=== PATIENT | male | born 1960 | race Caucasian/White ===

== ENCOUNTER → 2024-09-09 | Outpatient (CLI) | payer BC, SELFPAY ==
[2024-09-09 18:32] LABS: Anion Gap 13 (5-15); BUN 15 mg/dL (4-19); BUN/Creat Ratio 12.4 RATIO (10-20); Calcium,Total 9.5 mg/dL (7.6-11.0); Carbon Dioxide 23.5 mmol/L (21.0-32.0); Chloride 103 mmol/L (98-108); Glucose 77 mg/dL (70-99); PSA,Total - Annual Screen 7.26 ng/mL (0.02-4.00); Potassium 4.3 mmol/L (3.3-5.1)
[2024-09-09 18:45] LABS: Creatinine, Urine (random) 207.00 mg/dL (39.00-259.00); Microalbumin,Random Urine 36.7 mg/L (<20 mg/L)
[2024-09-09 19:13] LABS: Cholesterol 127 mg/dL (<=200); Low Density Lipoprotein Calc. 54 mg/dL; Triglycerides 73 mg/dL; Very Low Density Lipoprotein 15 mg/dL (5-40); cholesterol:hdl ratio screen 2.17
== END | disposition home or self-care (01) ==
LOC: MFPLAB 16:03
PROVIDERS: PCP Family Medicine; Referring Provider Family Medicine; Visit Provider Family Medicine
DX: Z00.00 Encounter for general adult medical examination without abnormal findings (principal); E11.9 Type 2 diabetes mellitus without complications; Z12.5 Encounter for screening for malignant neoplasm of prostate
CPT/HCPCS: 36415; 80048; 80061; 82043; 82570; 83036; 84153; G0103

== ENCOUNTER → 2024-09-22 | Outpatient (CLI) | payer BC, SELFPAY ==
--- OUTSIDE RECORDS SUMMARY | 2024-09-22 19:07 | XMS RPT_ITS | CCD ---
Author Organization [facility] Care Team Providers Care Agriscience Instructor Name Role Phone ABIOSE, FLAQUITO Unavailable Unavailable UNKNOWN, PROVIDER Unavailable Unavailable ABIOSE, FLAQUITO Unavailable Unavailable UNKNOWN, PROVIDER Unavailable Unavailable UNKNOWN, PROVIDER Unavailable Unavailable ABIOSE, FLAQUITO Unavailable Unavailable Rudi Abdi Unavailable Unavailable Nesha Douglas Unavailable Unavailable Phillip Bernal Unavailable Unavailable Karissa, Kofi A Unavailable Unavailable Rudi Abdi Unavailable Unavailable Marco Otoole Unavailable Unavailable Rudi Abdi MD Unavailable Unavailable Phillip Bernal Unavailable Unavailable Karissa, Kofi A Unavailable Unavailable Phillip Bernal Unavailable Unavailable Unavailable Dolores Ramirez, Dr. Phillip Connors Primary Care Unava wvdewayne Abdi, Dr. Rudi Shah Attending Unava eugene Bernal Jr, Dr. Phillip Connors Attending Unava ilable Dolores Ramirez, Dr. Phillip Connors Primary Care Unava ilable Dolores Ramirez, Dr. Phillip Connors Primary Care Unava ilable Giovanna Cook Attending Unavailable Phillip Bernal MD Unavailable Heriberto Davalos DO Primary Care Provider TRISHA SIMONS MD Attending Unavailable PHILLIP BERNAL Primary Care Unavailable Phillip Bernal MD Unavailable Phillip Bernal MD Unavailable Unavailable HERIBERTO DAVALOS Primary Care Unavailable GIOVANNA COOK Attending Unavailable HERIBERTO DAVALOS Primary Care Unavailable HERIBERTO DAVALOS Referring Unavailable HERIBERTO DAVALOS Primary Care Unavailable Giovanna Cook MD Unavailable Heriberto Davalos DO Unavailable [phone] Anoop RENYOSO, Heriberto A Primary Care Provider [phone] Jone AGUERO, Giovanna Coates Unavailable [phone] Davalos DO, Heriberto A Unavailable DAVALOS, HERIBERTO A Attending Unavailable DAVALOS, HERIBERTO A Primary Care Unavailable DAVALOS, HERIBERTO A Attending Unavailable DAVALOS, HERIBERTO A Primary Care Unavailable GOYO SNIDER Attending Unavailable DAVALOS, HERIBERTO A Referring Unavailable DAVALOS, HERIBERTO A Primary Care Unavailable DAVALOS, HERIBERTO A Attending Unavailable DAVALOS, HERIBERTO A Primary Care Unavailable MAHESH SANTOS Attending Unavailable THERON RIBERA Referring Unavailable DAVALOS, HERIBERTO A Primary Care Unavailable MIMI DONAHUE Attending Unavailable DAVALOS, HERIBERTO A Primary Care Unavailable GOYO SNIDER Attending Unavailable DAVALOS, HERIBERTO A Primary Care Unavailable DAVALOS, HERIBERTO A Attending Unavailable DAVALOS, HERIBERTO A Primary Care Unavailable DAVALOS, HERIBERTO A Attending Unavailable DAVALOS, HERIBERTO A Primary Care Unavailable Ariel Melgar Attending Provider Dr. Mayco Fentno MD Primary Care Provider [phone] Eliceo AGUERO, Dr. Mao Attending Provider [phone] Eliceo AGUERO, Dr. Mao Referring Provider [phone] DAVALOS, HERIBERTO A Primary Care Unavailable DAVALOS, HERIBERTO A Primary Care Unavailable DAVALOS, HERIBERTO A Primary Care Unavailable PHILLIP DUMONT Attending Unavailable Ariel Melgar Attending Unavailable Ariel Melgar Attending Unavailable Mayco Fenton Referring Unavailable Mayco Fenton Attending Unavailable Mayco Fenton Primary Care Unavailable Allergies Allergy Classification Reported Allergen(s) Allergy Type Date of Onset Reaction(s) Facility busPIRone (4 sources) busPIRone; Translations: [busPIRone HCl TABS] Drug Allergy Unknown [facility] Work Phone: (20 sources) busPIRone; Translations: [busPIRone] Drug Allergy 12-10-2022 Unknown [facility] (20 sources) busPIRone; Translations: [busPIRone HCl TABS] [facility]: (20 sources) empagliflozin; Translations: [Jardiance TABS] Drug Allergy 12-10-2022 Unknown [facility] Work Phone: (3 sources) empagliflozin; Translations: [EMPAGLIFLOZIN] Drug Allergy 12-10-2022 [facility] Medications Current Medications Medication Drug Class(es) Dates Sig (Normalized) Sig (Original) allopurinol 200 mg oral tablet (20 sources) Xanthine Oxidase Inhibitor Start: 06-22-2024 take 1 tablet by mouth once daily Allopurinol 200 mg tablet Active 200 mg PO daily June 22, 2024 12:00am Start: 10-21-2023 take 1 tablet by irma th once daily allopurinol (Zyloprim) 300 mg tablet Indications: Asymptomatic hyperuricemia TAKE 1 TABLET BY MOUTH EVERY DAY 90 tablet 2 10/21/2023 Active Start: 09-08-2015 End: 12-23-2022 take 1 tablet by mouth once daily allopurinol (Zyloprim) 300 mg tablet Indications: Asymptomatic hyperuricemia Take 1 tablet (300 mg) by mouth once daily. 90 tablet 2 12/23/2022 Active atorvastatin 40 mg oral tablet (20 sources) HMG-CoA Reductase Inhibitor Start: 06-22-2024 take 1 tablet by mouth once daily Atorvastatin 40 mg tablet Active 40 mg PO daily June 22, 2024 12:00am Start: 02-04-2021 End: 02-15-2024 take 1 tablet by mouth once daily atorvastatin (Lipitor) 10 mg tablet Indications: Hyperlipidemia, unspecified hyperlipidemia type TAKE 1 TABLET BY MOUTH EVERY DAY 90 tablet 1 02/15/2024 Active glimepiride 2 mg oral tablet (20 sources) Sulfonylurea Start: 06-22-2024 take 1 tablet by mouth once daily at breakfast Glimepiride 2 mg tablet Active 2 mg PO EVERY MORNING June 22, 2024 12:00am administer with breakfast Start: 05-22-2023 End: 05-16-2024 take 1 tablet by mouth once daily glimepiride (Amaryl) 4 mg tablet Indications: Type 2 diabetes mellitus with stage 3b chronic kidney disease, without long-term current use of insulin (Multi) TAKE 1 & 1/2 TABLETS BY MOUTH EVERY DAY 135 tablet 1 11/14/2023 05/16/2024 Discontinued Start: 01-18-2016 take 1.5 tablets by mouth once daily glimepiride (Amaryl) 4 mg tablet Take 1.5 tablets (6 mg) by mouth once daily. 0 01/18/2016 Active Start: 01-18-2016 take 0.5 tablet by m outh twice daily Glimepiride 4 MG Oral Tablet TAKE 1/2 TABLET BY MOUTH 2 TIMES A DAY Quantity: 90 Refills: 1 Ordered: 27-May-2022 Phillip Bernal MD Start : 18-Jan-2016 Active Start: 01-18-2016 take 0.5 tablet by m outh once daily Glimepiride 4 MG Oral Tablet TAKE 1/2 TABLET DAILY. Quantity: 45 Refills: 3 Rudi Abdi MD Start : 18-Jan-2016 Active hydroCHLOROthiazide 25 mg / lisinopril 20 mg oral tablet (20 sources) Thiazide Diuretic, Angiotensin Converting Enzyme Inhibitor Start: 08-27-2023 End: 11-11-2023 take 1 tablet by mouth once daily lisinopriL-hydrochlorothiazide 20-25 mg tablet Indications: Benign essential hypertension Take 1 tablet by mouth once daily. 90 tablet 1 08/27/2023 11/11/2023 Discontinued (Side effects) Start: 05-10-2015 End: 07-23-2023 take 1 tablet by mouth once daily lisinopriL-hydrochlorothiazide 20-25 mg tablet Indications: Benign essential hypertension Take 1 tablet by mouth once daily. 07/23/2023 Active Start: 05-10-2015 take 1 tablet by irma twice daily Lisinopril-hydroCHLOROthiazide 20-25 MG Oral Tablet ONE TABLET TWICE DAILY Quantity: 60 Refills: 0 Ordered: 13-Sep-2015 DO Start : 10-May-2015 Active lisinopril 10 mg oral tablet (6 sources) Angiotensin Converting Enzyme Inhibitor Start: 04-19-2024 take 0.5 tablet by mouth once daily lisinopril 10 mg tablet Indications: Benign essential hypertension Take 0.5 tablets (5 mg) by mouth once daily. 04/19/2024 Active Start: 11-11-2023 End: 11-10-2024 take 1 tablet by mouth once daily Lisinopril 10 mg tablet Active 10 mg PO daily June 22, 2024 12:00am metFORMIN hydrochloride 500 mg oral tablet (20 sources) Biguanide Start: 06-22-2024 take 1 tablet by mouth once daily Metformin 500 mg tablet Active 500 mg PO daily June 22, 2024 12:00am Start: 11-18-2023 End: 05-16-2024 take 0.5 tablet by mouth every twelve hours metFORMIN (Glucophage) 1,000 mg tablet Indications: Diabetic retinopathy screening TAKE 1/2 TABLET BY MOUTH EVERY 12 HOURS 90 tablet 1 11/18/2023 05/16/2024 Discontinued Start: 06-08-2023 take 0.5 tablet by m outh every twelve hours metFORMIN (Glucophage) 1,000 mg tablet Indications: Diabetic retinopathy screening TAKE 1/2 TABLET BY MOUTH EVERY 12 HOURS 90 tablet 1 06/08/2023 Active Start: 03-10-2015 End: 12-23-2022 take 0.5 tablet by mouth every twelve hours metFORMIN (Glucophage) 1,000 mg tablet Indications: Diabetic retinopathy screening TAKE 1/2 TABLET BY MOUTH EVERY 12 HOURS 90 tablet 1 11/25/2022 Active metoprolol tartrate 50 mg oral tablet (20 sources) beta-Adrenergic Latrice Start: 06-22-2024 take 1 tablet by mouth once daily Metoprolol Tartrate 50 mg tablet Active 50 mg PO daily June 22, 2024 12:00am Start: 10-30-2023 take 1 tablet by irma once daily metoprolol succinate XL (Toprol-XL) 25 mg 24 hr tablet Indications: Benign essential hypertension TAKE 1 TABLET BY MOUTH EVERY DAY 90 tablet 2 10/30/2023 Active Start: 08-22-2016 End: 12-23-2022 take 1 tablet by mouth once daily metoprolol succinate XL (Toprol-XL) 25 mg 24 hr tablet Indications: Benign essential hypertension Take 1 tablet (25 mg) by mouth once daily. 90 tablet 2 12/23/2022 Active Start: 08-22-2016 take 0.5 tablet by m outh twice daily Metoprolol Succinate ER 25 MG Oral Tablet Extended Release 24 Hour TAKE 1/2 (ONE-HALF) OF A TABLET BY MOUTH TWICE DAILY Quantity: 0 Refills: 0 Ordered: 01-Apr-2019 DO Start : 22-Aug-2016 Active Start: 08-22-2016 take 0.5 tablet by m outh once daily Metoprolol Succinate ER 25 MG Oral Tablet Extended Release 24 Hour TAKE 1/2 (ONE-HALF) OF A TABLET BY MOUTH DAILY Quantity: 15 Refills: 0 Start : 22-Aug-2016 Active oxyCODONE hydrochloride 5 mg oral tablet (3 sources) Opioid Agonist Start: 10-27-2023 End: 10-30-2023 take 1 tablet by mouth every eight hours for pain oxyCODONE (Roxicodone) 5 mg immediate release tablet Indications: Nephrolithiasis Take 1 tablet (5 mg) by mouth every 8 hours if needed for severe pain (7 - 10) for up to 3 days. 9 tablet 10/27/2023 10/30/2023 Active rivaroxaban 10 mg oral tablet (20 sources) Factor Xa Inhibitor Start: 06-22-2024 take 1 tablet by mouth once daily Rivaroxaban (Xarelto) 10 mg tablet Active 10 mg PO daily June 22, 2024 12:00am for 35 days Start: 11-18-2023 End: 05-16-2024 take 1 tablet by mouth once daily Xarelto 20 mg tablet Indications: Acquired hypercoagulable state (Multi) TAKE 1 TABLET BY MOUTH EVERY DAY 90 tablet 1 11/18/2023 05/16/2024 Discontinued Start: 05-19-2023 take 1 tablet by irma once daily Xarelto 20 mg tablet Indications: Acquired hypercoagulable state (Multi) TAKE 1 TABLET BY MOUTH EVERY DAY 90 tablet 1 05/19/2023 Active Start: 09-18-2015 End: 12-23-2022 take 1 tablet by mouth once daily Xarelto 20 mg tablet Indications: Acquired hypercoagulable state (CMS/HCC) TAKE 1 TABLET BY MOUTH EVERY DAY 90 tablet 1 11/25/2022 Active semaglutide 0.25 mg or 0.5 m g (2 mg/3 mL) pen injector (12 sources) Start: 11-02-2023 End: 11-11-2023 semaglutide 0.25 mg or 0.5 m g (2 mg/3 mL) pen injector Indications: Type 2 diabetes mellitus with stage 3b chronic kidney disease, without long-term current use of insulin (Multi) Inject 0.25 mg under the skin 1 (one) time per week. 11/02/2023 11/11/2023 Discontinued (Therapy completed) Start: 11-02-2023 semaglutide 0. 25 mg or 0.5 mg (2 mg/3 mL) pen injector Indications: Type 2 diabetes mellitus with stage 3b chronic kidney disease, without long-term current use of insulin (Multi) Inject 0.25 mg under the skin 1 (one) time per week. 11/02/2023 Active Start: 07-27-2023 End: 10-28-2023 inject 0.5 mg by subcutaneous injection every week semaglutide 0.25 mg or 0.5 mg (2 mg/3 mL) pen injector Indications: Type 2 diabetes mellitus with stage 3b chronic kidney disease, without long-term current use of insulin (Multi) Inject 0.5 mg under the skin 1 (one) time per week. 9 mL 1 07/27/2023 10/28/2023 Discontinued (Reorder) Start: 07-27-2023 End: 01-23-2024 inject 0.5 mg by subcutaneous injection every week semaglutide 0.25 mg or 0.5 mg (2 mg/3 mL) pen injector Indications: Type 2 diabetes mellitus with stage 3b chronic kidney disease, without long-term current use of insulin (Multi) Inject 0.5 mg under the skin 1 (one) time per week. 9 mL 1 07/27/2023 01/23/2024 Active Start: 04-23-2023 End: 07-23-2023 inject 0.5 mg by subcutaneous injection every week semaglutide 0.25 mg or 0.5 mg (2 mg/3 mL) pen injector Indications: Type 2 diabetes mellitus with stage 3b chronic kidney disease, without long-term current use of insulin (Multi) Inject 0.5 mg under the skin 1 (one) time per week. 9 mL 04/23/2023 07/23/2023 Discontinued (Reorder) Start: 04-23-2023 End: 07-22-2023 inject 0.5 mg by subcutaneous injection every week semaglutide 0.25 mg or 0.5 mg (2 mg/3 mL) pen injector Indications: Type 2 diabetes mellitus with stage 3b chronic kidney disease, without long-term current use of insulin (CMS/HCC) Inject 0.5 mg under the skin 1 (one) time per week. 9 mL 0 04/23/2023 07/22/2023 Active Start: 03-25-2023 End: 03-06-2024 semaglutide 0.25 mg or 0.5 m g (2 mg/3 mL) pen injector Indications: Type 2 diabetes mellitus with stage 3b chronic kidney disease, without long-term current use of insulin (CMS/HCC) Inject 0.25 mg under the skin 1 (one) time per week. 3 mL 0 03/25/2023 04/23/2023 Discontinued (Dose adjustment) Start: 03-25-2023 semaglutide 0. 25 mg or 0.5 mg (2 mg/3 mL) pen injector Indications: Type 2 diabetes mellitus with stage 3b chronic kidney disease, without long-term current use of insulin (CMS/HCC) Inject 0.25 mg under the skin 1 (one) time per week. 3 mL 0 03/25/2023 Active End: 10-28-2023 semaglutide 0.25 mg or 0.5 m g (2 mg/3 mL) pen injector Inject 0.5 mg under the skin every 7 days. 10/28/2023 Discontinued (Therapy completed) semaglutide 0.25 mg or 0.5 mg (2 mg/3 mL) pen injector Inject 0.5 mg under the skin every 7 days. Active tamsulosin hydrochloride 0.4 mg oral capsule (4 sources) alpha-Adrenergic Latrice Start: 10-27-2023 End: 11-11-2023 take 1 capsule by mouth once daily tamsulosin (Flomax) 0.4 mg 24 hr capsule Indications: Nephrolithiasis Take 1 capsule (0.4 mg) by mouth once daily for 14 days. 14 capsule 10/27/2023 11/11/2023 Discontinued (Side effects) Completed/Discontinued Medications Medication Drug Class(es) Dates Sig (Normalized) Sig (Original) acetaminophen 325 mg oral tablet (9 sources) Start: 10-27-2023 End: 11-25-2023 take 2 tablets by mouth every six hours for pain acetaminophen (TylenoL) 325 mg tablet Indications: Nephrolithiasis Take 2 tablets (650 mg) by mouth every 6 hours if needed for mild pain (1 - 3) or fever (temp greater than 38.0 C). 30 tablet 10/27/2023 11/25/2023 Discontinued (Therapy completed) Start: 03-04-2023 End: 04-03-2023 take 1 tablet by mouth every eight hours for pain acetaminophen (Tylenol 8 Hour) 650 mg ER tablet Indications: Ankylosing spondylitis of thoracolumbar region (CMS/HCC) Take 1 tablet (650 mg) by mouth every 8 hours if needed for mild pain (1 - 3) or moderate pain (4 - 6). Do not crush, chew, or split. 30 tablet 0 03/04/2023 04/03/2023 amoxicillin 500 mg oral capsule (1 source) Penicillin-class Antibacterial Start: 09-13-2020 take 4 capsules by mouth every hour Amoxicillin 500 MG Oral Capsule TAKE 4 CAPSULES BY MOUTH ONE HOUR PRIOR TO DENTAL APPOINTMENT. Quantity: 4 Refills: 0 Ordered: 13-Sep-2020 DO Start : 13-Sep-2020 Complete amoxicillin 875 mg / clavulanate 125 mg oral tablet (1 source) Penicillin-class Antibacterial Start: 07-05-2020 take 1 tablet by mouth every twelve hours Amoxicillin-Pot Clavulanate 875-125 MG Oral Tablet TAKE 1 TABLET BY MOUTH EVERY 12 HOURS FOR 10 DAYS Quantity: 20 Refills: 0 Ordered: 05-Jul-2020 DO Start : 05-Jul-2020 Complete aspirin 81 mg delayed release oral tablet (20 sources) Platelet Aggregation Inhibitor, Nonsteroidal Anti-inflammatory Drug Start: 06-20-2021 End: 03-04-2023 take 1 tablet by mouth once daily aspirin 81 mg EC tablet Take 1 tablet (81 mg) by mouth once daily. 0 06/20/2021 03/04/2023 Discontinued (Med List Cleanup) Aspirin 81 MG TA BS TAKE 1 TABLET DAILY. Quantity: 0 Refills: 0 Ordered: 02-May-2017 DO Active calcium chloride 0.0014 meq/ml / potassium chloride 0.004 meq/ml / sodium chloride 0.103 meq/ml / sodium lactate 0.028 meq/ml injectable solution (1 source) Start: 10-27-2023 End: 10-27-2023 1,000 mL, intravenous, at 999 mL/hr, Administer over 1 Hours, Once, On Fri10/27/23 at 1400, For 1 dose cholecalciferol 0.05 mg oral tablet (20 sources) Vitamin D End: 12-23-2022 take 1 tablet by mouth once daily cholecalciferol (Vitamin D-3) 50 MCG (2000 UT) tablet Take 1 tablet (50 mcg) by mouth once daily. 0 12/23/2022 Discontinued (Therapy completed) [facility] Vitamin D 20 00 UNIT CAPS Quantity: 0 Refills: 0 Ordered: 28-Feb-2016 DO Active [facility] Vitamin D 20 00 UNIT CAPS Refills: 0 Active ciprofloxacin 500 mg oral tablet (1 source) Quinolone Antimicrobial Start: 06-14-2021 take 1 tablet by mouth twice daily Ciprofloxacin HCl - 500 MG Oral Tablet TAKE 1 TABLET BY MOUTH TWICE DAILY FOR 10 DAYS Quantity: 20 Refills: 0 Ordered: 14-Jun-2021 DO Start : 14-Jun-2021 Complete cyclobenzaprine hydrochloride 10 mg oral tablet (8 sources) Muscle Relaxant Start: 03-25-2023 End: 11-25-2023 cyclobenzaprine (Flexeril) 10 mg tablet Indications: Neck pain on left side Take 1 tablet (10 mg) by mouth as needed at bedtime for muscle spasms. 30 tablet 03/25/2023 11/25/2023 Discontinued (Therapy completed) diclofenac sodium 75 mg delayed release oral tablet (20 sources) Nonsteroidal Anti-inflammatory Drug Start: 07-21-2015 End: 03-25-2023 take 1 tablet by mouth twice daily diclofenac (Voltaren) 75 mg EC tablet Indications: Ankylosing spondylitis of thoracolumbar region (CMS/HCC) Take 1 tablet (75 mg) by mouth 2 times a day. 180 tablet 2 12/23/2022 03/25/2023 Discontinued (Therapy completed) docosahexaenoic acid 120 mg / eicosapentaenoic acid 180 mg oral capsule (7 sources) Fish Oil 1000 MG Oral Capsule Quantity: 0 Refills: 0 Ordered: 28-Feb-2016 DO Active Fish Oil 1000 MG Oral Capsule Refills: 0 Active empagliflozin 10 mg oral tablet (2 sources) Sodium-Glucose Cotransporter 2 Inhibitor Start: 05-23-2021 take 1 tablet by mouth once daily Jardiance 10 MG Oral Tablet Take 1 tablet daily Quantity: 90 Refills: 3 Ordered: 23-May-2021 Rudi Abdi MD Start : 23-May-2021 Active fluticasone propionate 0.05 mg/actuat metered dose nasal spray (18 sources) Corticosteroid Start: 11-07-2016 take 2 spray(s) nasal route once daily Fluticasone Propionate 50 MCG/ACT Nasal Suspension instill 2 sprays each nostril daily Quantity: 16 Refills: 0 Start : 07-Nov-2016 Active gabapentin 100 mg oral capsule (2 sources) Anti-epileptic Agent Start: 03-03-2024 End: 04-19-2024 take 1 capsule by mouth three times daily gabapentin (Neurontin) 100 mg capsule Indications: Neuropathy Take 1 capsule (100 mg) by mouth 3 times a day. 90 capsule 1 03/03/2024 04/19/2024 Discontinued (Therapy completed) glucose 4000 mg chewable tablet (11 sources) End: 03-03-2024 glucose 4 gram chewable tablet Chew if needed for low blood sugar - see comments. 03/03/2024 Discontinued (Therapy completed) iohexol (OMNIPaque) 350 mg iodine/mL solution 90 mL (1 source) Start: 10-27-2023 End: 10-27-2023 90 mL, intravenous, Once in imaging, Starting on Fri10/27/23 at 1458, For 1 dose molnupiravir (Lagevrio) capsule capsule (3 sources) Start: 02-03-2024 End: 03-03-2024 take 4 capsules by mouth every twelve hours molnupiravir (Lagevrio) capsule capsule Indications: COVID-19 virus infection Take 4 capsules (800 mg) by mouth every 12 hours. 40 capsule 02/03/2024 03/03/2024 Discontinued (Therapy completed) Start: 02-03-2024 take 4 capsules by m outh every twelve hours molnupiravir (Lagevrio) capsule capsule Indications: COVID-19 virus infection Take 4 capsules (800 mg) by mouth every 12 hours. 40 capsule 02/03/2024 Active omega-3 acid ethyl esters (group home) 1000 mg oral capsule (2 sources) Fish Oil 1000 MG Oral Capsule Refills: 0 DO Active ondansetron 4 mg disintegrating oral tablet (8 sources) Serotonin-3 Receptor Antagonist Start: 10-27-19 End: 11-25-19 take 1 tablet by mouth every eight hours ondansetron ODT (Zofran-ODT) 4 mg disintegrating tablet Indications: Nephrolithiasis Take 1-2 tablets (4-8 mg) by mouth every 8 hours if needed for nausea or vomiting. 30 tablet 10/27/2023 11/25/2023 Discontinued (Therapy completed) Start: 10-27-2023 End: 10-27-2023 4 mg, intravenous, Once, On Fri10/27/23 at 1400, For 1 dose, When administering via IV Push, administer over 3-5 minutes. pen needle, diabetic (COMFOR T EZ PEN NEEDLES MISC) (14 sources) End: 03-03-2024 pen needle, diabetic (COMFOR T EZ PEN NEEDLES MISC) 1 Needle 1 (one) time per week. 03/03/2024 Discontinued (Therapy completed) pen needle, diab etic (COMFORT EZ PEN NEEDLES MISC) 1 Needle 1 (one) time per week. Active pen needle, diab etic (COMFORT EZ PEN NEEDLES MISC) 1 Needle 1 (one) time per week. 0 Active sildenafil 100 mg oral tablet (5 sources) Phosphodiesterase 5 Inhibitor Start: 08-08-2017 take 1 tablet by mouth once daily Sildenafil Citrate 100 MG Oral Tablet TAKE 1 TABLET DAILY 1 HOUR BEFORE NEEDED Quantity: 1 Refills: 0 Start : 08-Aug-2017 Active SITagliptin 25 mg oral tablet (20 sources) Dipeptidyl Peptidase 4 Inhibitor Start: 01-20-2023 End: 04-23-2023 take 1 tablet by mouth once daily Januvia 25 mg tablet Indications: Type 2 diabetes mellitus with other specified complication, without long-term current use of insulin (CMS/HCC) TAKE 1 TABLET BY MOUTH EVERY DAY 90 tablet 0 01/20/2023 04/23/2023 Discontinued (Therapy completed) Start: 12-18-2016 End: 12-23-2022 take 1 tablet by mouth once daily SITagliptin phosphate (Januvia) 25 mg tablet Indications: Type 2 diabetes mellitus with other specified complication, without long-term current use of insulin (CMS/HCC) Take 1 tablet (25 mg) by mouth once daily. 30 tablet 5 12/23/2022 Active valACYclovir 1000 mg oral tablet (1 source) Herpesvirus Nucleoside Analog DNA Polymerase Inhibitor, Herpes Simplex Virus Nucleoside Analog DNA Polymerase Inhibitor, Herpes Zoster Virus Nucleoside Analog DNA Polymerase Inhibitor Start: 12-04-2018 take 1 tablet by mouth three times daily valACYclovir HCl - 1 GM Oral Tablet TAKE 1 TABLET 3 TIMES DAILY FOR 7 DAYS. Quantity: 21 Refills: 0 Nesha Douglas DO Start : 04-Dec-2018 Active Problems Active Problems Problem Classification Problem Date Documented Date Episodic/Chronic Chronic kidney disease (20 sources) Chronic kidney disease stage 3; Translations: [Chronic kidney disease, Stage III (moderate)] Onset: 07-23-2023 Resolved: 06-20-2021 07-23-2023 Chronic Chronic kidney disease (2 sources) Chronic kidney disease; Translations: [Chronic kidney disease, stage 3b (Multi)] Onset: 07-23-2023 Coronary atherosclerosis and other heart disease (1 source) Coronary atherosclerosis and other heart disease Onset: 05-19-2017 Deficiency and other anemia (1 source) Deficiency and other anemia Onset: 05-23-2017 Diabetes mellitus with complications (6 sources) Type 2 diabetes mellitus with diabetic polyneuropathy; Translations: [Type 2 diabetes mellitus with diabetic chronic kidney disease] Onset: 12-10-2022 Chronic Diabetes mellitus without complication (20 sources) Type 2 diabetes mellitus; Translations: [Diabetes mellitus without mention of complication, type II or unspecified type, not stated as uncontrolled] Onset: 12-20-2021 Chronic Diabetes mellitus without complication (1 source) Diabetes mellitus without complication Onset: 05-23-2017 Disorders of lipid metabolism (20 sources) Hyperlipidemia; Translations: [Other and unspecified hyperlipidemia] Onset: 12-10-2022 Resolved: 07-03-2022 12-23-2022 Chronic Essential hypertension (20 sources) Benign essential hypertension; Translations: [Benign essential hypertension] Onset: 09-18-2022 12-23-2022 Chronic Essential hypertension (1 source) Essential hypertension Onset: 05-19-2017 Leukemias (20 sources) Large granular lymphocytic leukemia; 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, without mention of having achieved remission] Onset: 09-18-2022 12-10-2022 Chronic Osteoarthritis (20 sources) Osteoarthritis of left hip joint; Translations: [Osteoarthrosis, localized, primary, pelvic region and thigh] Onset: 03-25-2023 Resolved: 06-20-2021 03-25-2023 Chronic Other aftercare (20 sources) Drug therapy finding; Translations: [Long-term (current) use of other medications] Episodic Other connective tissue disease (20 sources) H/O: arthritis; Translations: [Personal history of arthritis] Episodic Other male genital disorders (20 sources) Secondary erectile dysfunction; Translations: [Impotence of organic origin] Onset: 12-10-2022 12-10-2022 Chronic Other male genital disorders (20 sources) Male erectile dysfunction, unspecified; Translations: [Erectile dysfunction] Chronic Other nervous system disorders (20 sources) Neuropathy; Translations: [Mononeuritis of unspecified site] Onset: 12-10-2022 12-10-2022 Chronic Other nervous system disorders (4 sources) Polyneuropathy, unspecified; Translations: [Polyneuropathy, unspecified] Onset: 12-10-2022 Chronic Other nervous system disorders (20 sources) Numbness and tingling sensation of skin; Translations: [Disturbance of skin sensation] Onset: 03-25-2023 03-25-2023 Episodic Other non-traumatic joint disorders (20 sources) Hip pain; Translations: [Pain in joint, pelvic region and thigh] Resolved: 06-20-2021 Episodic Other nutritional; endocrine; and metabolic disorders (20 sources) Obesity; Translations: [Obesity, unspecified] Onset: 03-25-2023 03-25-2023 Chronic Other nutritional; endocrine; and metabolic disorders (20 sources) Hemochromatosis; Translations: [Other hemochromatosis] Onset: 12-10-2022 12-10-2022 Chronic Other nutritional; endocrine; and metabolic disorders (1 source) Hemochromatosis, unspecified; Translations: [Hemochromatosis, unspecified] Onset: 09-18-2022 Chronic Other nutritional; endocrine; and metabolic disorders (4 sources) Hereditary hemochromatosis; Translations: [Hereditary hemochromatosis (CMS-HCC)] Onset: 12-10-2022 Chronic Other nutritional; endocrine; and metabolic disorders (5 sources) Hypomagnesemia; Translations: [Hypomagnesemia] Onset: 03-03-2024 03-03-2024 Chronic Other nutritional; endocrine; and metabolic disorders (1 source) Hypomagnesemia; Translations: [Hypomagnesemia] Onset: 03-03-2024 Chronic Other nutritional; endocrine; and metabolic disorders (20 sources) Hyperuricemia; Translations: [Other abnormal blood chemistry] Onset: 12-10-2022 12-23-2022 Episodic Other upper respiratory disease (20 sources) Allergic rhinitis; Translations: [Allergic rhinitis, cause unspecified] Onset: 03-25-2023 03-25-2023 Chronic Residual codes; unclassified (18 sources) Swelling - edema - symptom; Translations: [Edema] Episodic Rheumatoid arthritis and related disease (20 sources) Ankylosing spondylitis; Translations: [Ankylosing spondylitis] Onset: 12-10-2022 12-23-2022 Chronic Spondylosis; intervertebral disc disorders; other back problems (20 sources) Degeneration of lumbar intervertebral disc; Translations: [Degeneration of lumbar or lumbosacral intervertebral disc] Onset: 12-10-2022 12-10-2022 Chronic Thyroid disorders (20 sources) Multinodular goiter; Translations: [Nontoxic multinodular goiter] Onset: 12-10-2022 12-10-2022 Chronic Unclassified (1 source) Male erectile dysfunction, unspecified / N52.9(ICD-9) Onset: 05-23-2017 Unclassified (1 source) Pure hypercholesterolemia, unspecified / E78.00(ICD-9) Onset: 05-23-2017 Unclassified (1 source) Family hx of ischem heart dis and oth dis of the circ sys / Z82.49(ICD-9) Onset: 05-23-2017 Unclassified (1 source) Polyneuropathy, unspecified / G62.9(ICD-9) Onset: 05-23-2017 Unclassified (1 source) Shortness of breath / R06.02(ICD-9) Onset: 05-23-2017 Unclassified (1 source) Venous insufficiency (chronic) (peripheral) / I87.2(ICD-9) Onset: 05-23-2017 Unclassified (2 sources) Encounter for preprocedural cardiovascular examination / Z01.810(ICD-9) Onset: 05-23-2017 Unclassified (1 source) Personal history of pulmonary embolism / Z86.711(ICD-9) Onset: 05-23-2017 Unclassified (1 source) Dorsalgia, unspecified / M54.9(ICD-9) Onset: 05-23-2017 Unclassified (1 source) Cervicalgia / M54.2(ICD-9) Onset: 05-23-2017 Unclassified (1 source) Other long-term (current) drug therapy / Z79.899(ICD-9) Onset: 05-19-2017 Unclassified (1 source) Edema, unspecified / R60.9(ICD-9) Onset: 05-19-2017 Unclassified (1 source) Personal history of other venous thrombosis and embolism / Z86.718(ICD-9) Onset: 05-23-2017 Unclassified (1 source) Hemochromatosis, unspecified / E83.119(ICD-9) Onset: 05-19-2017 Unclassified (1 source) Presence of prosthetic heart valve / Z95.2(ICD-9) Onset: 05-19-2017 Viral infection (2 sources) COVID-19; Translations: [COVID-19] Onset: 02-03-2024 Past or Other Problems Problem Classification Problem Date Documented Da te Episodic/Chronic Administrative/social admission (3 sources) Patient encounter status; Translations: [Encounter for pre-employment examination] Onset: 06-22-2024 06-22-2024 Episodic Calculus of urinary tract (20 sources) Calculus of kidney; Translations: [Kidney stone] Onset: 10-27-2023 Episodic Conditions associated with dizziness or vertigo (17 sources) Dizziness; Translations: [Dizziness and giddiness] Onset: 08-13-2021 03-25-2023 Episodic Deficiency and other anemia (20 sources) Anemia; Translations: [Anemia, unspecified] Onset: 12-10-2022 12-10-2022 Episodic Genitourinary symptoms and ill-defined conditions (20 sources) Blood in urine; Translations: [Hematuria, unspecified] Onset: 12-10-2022 12-10-2022 Episodic Mood disorders (18 sources) Mood disorders Onset: 11-30-2020 03-30-2022 Osteoarthritis (1 source) Osteoarthritis of left hip joint; Translations: [Primary osteoarthritis of left hip] Other circulatory disease (20 sources) H/O: hypertension; Translations: [Personal history of other diseases of circulatory system] Onset: 03-25-2023 03-25-2023 Episodic Other diseases of veins and lymphatics (20 sources) Chronic peripheral venous hypertension; Translations: [Chronic venous hypertension with ulcer and inflammation] Resolved: 06-20-2021 Chronic Other diseases of veins and lymphatics (20 sources) Venous insufficiency of leg; Translations: [Venous (peripheral) insufficiency, unspecified] Resolved: 06-20-2021 Episodic Other ear and sense organ disorders (20 sources) Ear, nose and throat disorder; Translations: [Other and unspecified diseases of upper respiratory tract] Onset: 03-25-2023 03-25-2023 Episodic Other ear and sense organ disorders (17 sources) Impacted cerumen in right ear; Translations: [Impacted cerumen, right ear] Onset: 01-31-2023 03-25-2023 Episodic Other eye disorders (11 sources) Pain of left eye; Translations: [Ocular pain, left eye] Onset: 11-11-2023 11-11-2023 Episodic Other hematologic conditions (20 sources) H/O: blood disorder; Translations: [Personal history of diseases of blood and blood-forming organs] Onset: 03-25-2023 03-25-2023 Episodic Other infections; including parasitic (20 sources) History of herpes zoster; Translations: [Personal history of other infectious and parasitic diseases] Resolved: 11-30-2020 Episodic Other liver diseases (20 sources) Increased creatine kinase level; Translations: [Other nonspecific abnormal serum enzyme levels] Onset: 12-10-2022 12-10-2022 Episodic Other lower respiratory disease (17 sources) Dyspnea; Translations: [Shortness of breath] Onset: 11-24-2006 03-25-2023 Episodic Other nervous system disorders (20 sources) H/O: ear disorder; Translations: [Personal history of other diseases of the nervous system and sense organs] Onset: 08-13-2021 03-25-2023 Episodic Other nervous system disorders (20 sources) Paresthesia; Translations: [Paresthesia of skin] Onset: 03-21-2008 03-25-2023 Episodic Other non-traumatic joint disorders (20 sources) Clavicle pain; Translations: [Disorder of bone and cartilage, unspecified] Resolved: 11-30-2020 Episodic Other non-traumatic joint disorders (20 sources) Shoulder pain; Translations: [Pain in joint, shoulder region] Resolved: 11-30-2020 Episodic Other non-traumatic joint disorders (5 sources) Pain in right shoulder; Translations: [Right shoulder pain, unspecified chronicity] Resolved: 11-30-2020 Episodic Other nutritional; endocrine; and metabolic disorders (20 sources) Blood urate raised; Translations: [Other abnormal blood chemistry] Resolved: 06-20-2021 Episodic Other nutritional; endocrine; and metabolic disorders (20 sources) H/O: obesity; Translations: [Personal history of other endocrine, metabolic, and immunity disorders] Resolved: 06-20-2021 Episodic Other nutritional; endocrine; and metabolic disorders (4 sources) Hyperuricemia without signs of inflammatory arthritis and tophaceous disease; Translations: [Hyperuricemia without signs of inflammatory arthritis and tophaceous disease] Onset: 12-10-2022 Episodic Other screening for suspected conditions (not mental disorders or infectious disease) (20 sources) Breast neoplasm screening status; Translations: [Other screening mammogram] Onset: 03-06-2023 03-04-2023 Episodic Other upper respiratory infections (9 sources) Viral upper respiratory tract infection; Translations: [Acute upper respiratory infection, unspecified] Onset: 02-07-2024 02-07-2024 Episodic Phlebitis; thrombophlebitis and thromboembolism (20 sources) Bilateral deep vein thrombosis of lower extremities; Translations: [Acute venous embolism and thrombosis of unspecified deep vessels of lower extremity] Onset: 11-24-2006 12-10-2022 Episodic Pulmonary heart disease (20 sources) Pulmonary embolism; Translations: [Other pulmonary embolism and infarction] Onset: 12-10-2022 12-10-2022 Episodic Residual codes; unclassified (20 sources) Edema; Translations: [Edema] Onset: 12-10-2022 12-10-2022 Episodic Spondylosis; intervertebral disc disorders; other back problems (20 sources) Neck pain; Translations: [Cervicalgia] Onset: 03-25-2023 Resolved: 11-30-2020 03-25-2023 Episodic Sprains and strains (20 sources) Sprain of shoulder; Translations: [Sprains and strains of unspecified site of shoulder and upper arm] Resolved: 06-20-2021 Episodic Unclassified (1 source) Encounter for preprocedural cardiovascular examination; Translations: [Encounter for preprocedural cardiovascular examination] Onset: 05-23-2017 Unclassified (20 sources) Never smoked tobacco; Translations: [Never a smoker] Unclassified (18 sources) Onset: 12-23-2022 Resolved: 04-19-2024 12-23-2022 Viral infection (20 sources) Herpes zoster; Translations: [Herpes zoster without mention of complication] Onset: 03-25-2023 03-25-2023 Episodic NEGATED: Highlighted row has not occurred!Residual codes; unclassified (20 sources) Disease Episodic Results Test Name Value Interpretation Reference Range Facility CBC W Auto Differential pane l (Bld)on 09-16-2024 Basophils (Bld) [#/Vol] 0.05 x10*3/uL Normal 0.00-0.10 [facility] Comment on above: Performed By: #### 2 4323-8 #### SILVERIO NI ([id number]) [facility] ([facility]) [address] [place] [address] Basophils/100 WBC (Bld) 0.4 % Normal 0.0-2.0 [facility] Comment on above: Performed By: #### 2 4323-8 #### SILVERIO NI ([id number]) [facility] ([facility]) [address] [place] [address] Eosinophils (Bld) [#/Vol] 0.10 x10*3/uL Normal 0.00-0.70 [facility] Comment on above: Performed By: #### 2 4323-8 #### SILVERIO NI ([id number]) [facility] ([facility]) [address] [place] [address] Eosinophils/100 WBC (Bld) 0.8 % Normal 0.0-6.0 [facility] Comment on above: Performed By: #### 2 4323-8 #### SILVERIO NI ([id number]) [facility] ([facility]) [address] [place] [address] Erythrocyte distribution width (RBC) [Ratio] 12.6 % Normal 11.5-14.5 [facility] Comment on above: Performed By: #### 2 4323-8 #### SILVERIO NI ([id number]) [facility] ([facility]) [address] [place] [address] Hematocrit (Bld) [Volume fraction] 39.4 % Low 41.0-52.0 [facility] Comment on above: Performed By: #### 2 4323-8 #### SILVERIO NI ([id number]) [facility] ([facility]) [address] [place] [address] Hemoglobin (Bld) [Mass/Vol] 12.8 g/dL Low 13.5-17.5 [facility] Comment on above: Performed By: #### 2 4323-8 #### SILVERIO NI ([id number]) [facility] ([facility]) [id number] [place] [address] Immature granulocytes (Bld) [#/Vol] 0.03 x10*3/uL Normal 0.00-0.70 [facility] Comment on above: Performed By: #### 2 4323-8 #### SILVERIO NI ([id number]) [facility] ([facility]) [id number] [place] [address] Immature granulocytes/100 WBC (Bld) 0.2 % Normal 0.0-0.9 [facility] Comment on above: Result Comment: Leesa ture Granulocyte Count (IG) includes promyelocytes, myelocytes and metamyelocytes but does not include bands. Percent differential counts (%) should be interpreted in the context of the absolute cell counts (cells/UL). Performed By: #### 2 4323-8 #### SILVERIO NI ([id number]) [facility] ([facility] [place]) [id number] [place] [address] Lymphocytes (Bld) [#/Vol] 3.23 x10*3/uL Normal 1.20-4.80 [facility] Comment on above: Performed By: #### 2 4323-8 #### SILVERIO NI ([id number]) [facility] ([facility]) [id number] [place] [address] Lymphocytes/100 WBC (Bld) 25.1 % Normal 13.0-44.0 [facility] Comment on above: Performed By: #### 2 4323-8 #### SILVERIO NI ([id number]) [facility] ([facility]) [address] [place] [address] MCH (RBC) [Entitic mass] 30.5 pg Normal 26.0-34.0 [facility] Comment on above: Performed By: #### 2 4323-8 #### SILVERIO NI ([id number]) [facility] ([facility]) [address] [place] [address] MCHC (RBC) [Mass/Vol] 32.5 g/dL Normal 32.0-36.0 [facility] Comment on above: Performed By: #### 2 4323-8 #### SILVERIO NI ([id number]) [facility] ([facility]) [address] [place] [address] MCV (RBC) [Entitic vol] 94 fL Normal 80-100 [facility] Comment on above: Performed By: #### 2 4323-8 #### SILVERIO NI ([id number]) [facility] ([facility]) [id number] [place] [address] Monocytes (Bld) [#/Vol] 0.93 x10*3/uL Normal 0.10-1.00 [facility] Comment on above: Performed By: #### 2 4323-8 #### SILVERIO NI ([id number]) [facility] ([facility]) [id number] [place] [address] Monocytes/100 WBC (Bld) 7.2 % Normal 2.0-10.0 [facility] Comment on above: Performed By: #### 2 4323-8 #### SILVERIO NI ([id number]) [facility] ([facility]) [address] [place] [address] Neutrophils (Bld) [#/Vol] 8.55 x10*3/uL High 1.20-7.70 [facility] Comment on above: Result Comment: Perc ent differential counts (%) should be interpreted in the context of the absolute cell counts (cells/uL). Performed By: #### 2 4323-8 #### SILVERIO NI ([id number]) [facility] ([facility]) [address] [place] [address] Neutrophils/100 WBC (Bld) 66.3 % Normal 40.0-80.0 [facility] Comment on above: Performed By: #### 2 4323-8 #### SILVERIO NI ([id number]) [facility] ([facility]) [address] [place] [address] Nucleated RBC/100 WBC (Bld) [Ratio] 0.0 /100 WBCs Normal 0.0-0.0 [facility] Comment on above: Performed By: #### 2 4323-8 #### SILVERIO NI ([id number]) [facility] ([facility]) [address] [place] [address] Platelets (Bld) [#/Vol] 311 x10*3/uL Normal 150-450 [facility] Comment on above: Performed By: #### 2 4323-8 #### SILVERIO NI ([id number]) [facility] ([facility]) [address] [place] [address] RBC (Bld) [#/Vol] 4.20 x10*6/uL Low 4.50-5.90 [facility] Comment on above: Performed By: #### 2 4323-8 #### SILVERIO NI ([id number]) [facility] ([facility]) [address] [place] [address] WBC (Bld) [#/Vol] 12.9 x10*3/uL High 4.4-11.3 [facility] Comment on above: Performed By: #### 2 4323-8 #### SILVERIO NI ([id number]) [facility] ([facility]) [address] [place] [address] Comprehensive metabolic 2000 panelon 09-16-2024 Albumin BCP dye [Mass/Vol] 4.0 g/dL Normal 3.4-5.0 [facility] Comment on above: Performed By: #### 2 4323-8 #### SILVERIO NI ([id number]) [facility] ([facility]) [address] [place] [address] ALP [Catalytic activity/Vol] 86 U/L Normal 33-136 [facility] Comment on above: Performed By: #### 2 4323-8 #### SILVERIO NI ([id number]) [facility] ([facility]) [address] [place] [address] ALT With P-5'-P [Catalytic activity/Vol] 17 U/L Normal 10-52 [facility] Comment on above: Result Comment: Svetlana ents treated with Sulfasalazine may generate falsely decreased results for ALT. Performed By: #### 2 4323-8 #### SILVERIO NI ([id number]) [facility] ([facility]) [address] [place] [address] Anion gap [Moles/Vol] 12 mmol/L Normal 10-20 [facility] Comment on above: Performed By: #### 2 4323-8 #### SILVERIO NI ([id number]) [facility] ([facility]) [address] [place] [address] AST With P-5'-P [Catalytic activity/Vol] 20 U/L Normal 9-39 [facility] Comment on above: Performed By: #### 2 4323-8 #### SILVERIO NI ([id number]) [facility] ([facility]) [address] [place] [address] Bilirubin [Mass/Vol] 0.6 mg/dL Normal 0.0-1.2 [facility] Comment on above: Performed By: #### 2 4323-8 #### SILVERIO NI ([id number]) [facility] ([facility]) [address] [place] [address] Calcium [Mass/Vol] 9.4 mg/dL Normal 8.6-10.3 [facility] Comment on above: Performed By: #### 2 4323-8 #### SILVERIO NI ([id number]) [facility] ([facility]) [address] [place] [address] Chloride [Moles/Vol] 103 mmol/L Normal 98-107 [facility] Comment on above: Performed By: #### 2 4323-8 #### SILVERIO NI ([id number]) [facility] ([facility]) [address] [place] [address] CO2 [Moles/Vol] 30 mmol/L Normal 21-32 [facility] Comment on above: Performed By: #### 2 4323-8 #### SILVERIO NI ([id number]) [facility] ([facility]) [address] [place] [address] Creatinine [Mass/Vol] 1.04 mg/dL Normal 0.50-1.30 [facility] Comment on above: Performed By: #### 2 4323-8 #### SILVERIO NI ([id number]) [facility] ([facility]) [address] [place] [address] Glomerular filtration rate 81 mL/min/1.73m*2 Normal >60 [facility] Comment on above: Result Comment: Calc ulations of estimated GFR are performed using the 2020 CKD-EPI Study Refit equation without the race variable for the IDMS-Traceable creatinine methods. https://jasn.asnjournals.org/content//ASN.5909712 988 Performed By: #### 2 4323-8 #### SILVERIO NI ([id number]) [facility] ([facility]) [address] [place] [address] Glucose [Mass/Vol] 84 mg/dL Normal 74-99 [facility] Comment on above: Performed By: #### 2 4323-8 #### SILVERIO NI ([id number]) [facility] ([facility]) [address] [place] [address] Potassium [Moles/Vol] 4.5 mmol/L Normal 3.5-5.3 [facility] Comment on above: Performed By: #### 2 4323-8 #### SILVERIO NI ([id number]) [facility] ([facility]) [address] [place] [address] Protein [Mass/Vol] 7.0 g/dL Normal 6.4-8.2 [facility] Comment on above: Performed By: #### 2 4323-8 #### SILVERIO NI ([id number]) [facility] ([facility]) [address] [place] [address] Sodium [Moles/Vol] 140 mmol/L Normal 136-145 [facility] Comment on above: Performed By: #### 2 4323-8 #### SILVERIO NI ([id number]) [facility] ([facility]) [address] [place] [address] Urea nitrogen [Mass/Vol] 16 mg/dL Normal 6-23 [facility] Comment on above: Performed By: #### 2 4323-8 #### SILVERIO NI ([id number]) [facility] ([facility]) [address] [place] [address] Ferritinon 09-16-2024 Ferritin [Mass/Vol] 76 ng/mL Normal 20-300 [facility] Comment on above: Performed By: #### 2 4323-8 #### SILVERIO NI ([id number]) [facility] ([facility]) [address] [place] [address] Iron and Iron binding capaci ty panelon 09-16-2024 Iron [Mass/Vol] 52 ug/dL Normal 35-150 [facility] Comment on above: Performed By: #### 2 4323-8 #### SILVERIO NI ([id number]) [facility] ([facility]) [address] [place] [address] Iron binding capacity [Mass/Vol] 280 ug/dL Normal 240-445 [facility] Comment on above: Performed By: #### 2 4323-8 #### SILVREIO NI ([id number]) [facility] ([facility]) [address] [place] [address] Iron binding capacity.unsaturated [Mass/Vol] 228 ug/dL Normal 110-370 [facility] Comment on above: Performed By: #### 2 4323-8 #### SILVERIO NI ([id number]) [facility] ([facility]) [address] [place] [address] Iron saturation [Mass fraction] 19 % Low 25-45 [facility] Comment on above: Performed By: #### 2 4323-8 #### SILVERIO NI ([id number]) [facility] ([facility]) [address] [place] [address] Anion gap in Serum or Plasma Ordered By: Mayco Fenton on 09-09-2024 Anion gap [Moles/Vol] 13 mmol/L 07-01 [facility] BUN/creatinine ratioOrdered By: Mayco Fenton on 09-09-2024 Urea nitrogen/Creatinine [Mass ratio] 12.4 mg/mg 12-06 [facility] Basic Metabolic Profile (BMP )on 09-09-2024 BUN/CRE 12.4 RATIO Normal 12-06 [facility] Comment on above: Performed By: #### L 500.4100, L501.9910, L502.0250, L500.2500, L501.9985 #### [facility] [address] [place], [address] Calcium [Mass/Vol] 9.5 mg/dL Normal 7.6-11.0 [facility] Comment on above: Performed By: #### L 500.4100, L501.9910, L502.0250, L500.2500, L501.9985 #### [facility] [address] [place], [address] Chloride [Moles/Vol] 103 mmol/L Normal 98-108 [facility] Comment on above: Performed By: #### L 500.4100, L501.9910, L502.0250, L500.2500, L501.9985 #### [facility] [address] [place], [address] CO2 [Moles/Vol] 23.5 mmol/L Normal 21.0-32.0 [facility] Comment on above: Performed By: #### L 500.4100, L501.9910, L502.0250, L500.2500, L501.9985 #### [facility] [address] [place], [address] Creatinine [Mass/Vol] 1.19 mg/dL Normal 0.70-1.20 [facility] Comment on above: Performed By: #### L 500.4100, L501.9910, L502.0250, L500.2500, L501.9985 #### [facility] [address] [place], [place], [address] GAP 13 Normal 5-15 [facility] Comment on above: Performed By: #### L 500.4100, L501.9910, L502.0250, L500.2500, L501.9985 #### [facility] [address] [place], [address] GFR/1.73 sq M.predicted among non-blacks MDRD (S/P/Bld) [Vol rate/Area] 69 mL/min/{1.73_m2} Normal >60 [facility] Comment on above: Result Comment: mL/m in/1.73m2 CKD-EPI Creatinine Equation (2020) Performed By: #### L 500.4100, L501.9910, L502.0250, L500.2500, L501.9985 #### [facility] [address] [place], [address] Glucose [Mass/Vol] 77 mg/dL Normal 70-99 [facility] Comment on above: Performed By: #### L 500.4100, L501.9910, L502.0250, L500.2500, L501.9985 #### [facility] [address] [place], [address] Potassium [Moles/Vol] 4.3 mmol/L Normal 3.3-5.1 [facility] Comment on above: Performed By: #### L 500.4100, L501.9910, L502.0250, L500.2500, L501.9985 #### [facility] [address] [place], [address] Sodium [Moles/Vol] 139 mmol/L Normal 133-145 [facility] Comment on above: Performed By: #### L 500.4100, L501.9910, L502.0250, L500.2500, L501.9985 #### [facility] [address] [place], [address] Urea nitrogen [Mass/Vol] 15 mg/dL Normal 4-19 [facility] Comment on above: Performed By: #### L 500.4100, L501.9910, L502.0250, L500.2500, L501.9985 #### [facility] [address] [place], [address] Calculated very low density lipoprotein (VLDL) cholesterol measurementOrdered By: Mayco Fenton on 09-09-2024 Calculated very low density lipoprotein (VLDL) cholesterol measurement 15 mg/dL 5-40 [facility] Carbon dioxide, total [Moles /volume] in Central venous bloodOrdered By: Mayco Fenton on 09-09-2024 CO2 [Moles/Vol] 23.5 mmol/L 21.0-32.0 [facility] Chloride assayOrdered By: Janay Fenton on 09-09-2024 Chloride [Moles/Vol] 103 mmol/L 98-108 [facility] Glomerular filtration rate ( GFR) estimation/1.73 sq m using serum, plasma, or whole bOrdered By: Mayco Fetnon on 09-09-2024 GFR/1.73 sq M.predicted among non-blacks MDRD (S/P/Bld) [Vol rate/Area] 69 mL/min/{1.73_m2} >60 [facility] Comment on above: mL/min/1.73m2 CKD-EP I Creatinine Equation (2020) Hemoglobin A1con 09-09-2024 HbA1c (Bld) [Mass fraction] 6.7 % High <=5.6 [facility] Comment on above: Result Comment: Norm al < 5.7 % Prediabetic 5.7 - 6.4 % Diabetic >or= 6.5 % Please note range changes. Performed By: #### L 500.4100, L501.9910, L502.0250, L500.2500, L501.9985 #### [facility] [address] [place], [address] Hemoglobin A1c percentageOrd ered By: Mayco Fenton on 09-09-2024 HbA1c (Bld) [Mass fraction] 6.7 % High <5.7 [facility] Comment on above: Normal < 5.7 % Predi abetic 5.7 - 6.4 % Diabetic >or= 6.5 % Please note range changes. LDL calc ser/plasOrdered By: Mayco Fenton on 09-09-2024 Cholesterol in LDL [Mass/Vol] 54 mg/dL [facility] Comment on above: Ggvftvadoj=929-195 m g/dL & Higher Tywy=054 mg/dL or greater Lipid Profileon 09-09-2024 CHOL:HDL 2.17 Normal [facility] Comment on above: Performed By: #### L 500.4100, L501.9910, L502.0250, L500.2500, L501.9985 #### [facility] [address] [place], [address] Cholesterol [Mass/Vol] 127 mg/dL Normal <=200 [facility] Comment on above: Result Comment: Chol esterol level, Desirable <200 mg/dL Borderline high cholesterol 200-239 mg/dL High cholesterol >=240 mg/dL Recommendations of the NCEP Adult Treatment Panel for the following risk-cutoff thresholds for the [place] population. Performed By: #### L 500.4100, L501.9910, L502.0250, L500.2500, L501.9985 #### [facility] [address] [place], [address] Cholesterol in HDL [Mass/Vol] 59 mg/dL Normal [facility] Comment on above: Result Comment: [place] onal Cholesterol Education Program (NCEP) guidelines: <40 mg/dL: Low HDL-cholesterol (major risk factor for CHD) >= 60 mg/dL: High HDL-cholesterol (negative risk factor for CHD) HDL-cholesterol is affected by a number of factors, e.g. smoking, exercise, hormones, sex and age. Performed By: #### L 500.4100, L501.9910, L502.0250, L500.2500, L501.9985 #### [facility] [address] [place], [address] Cholesterol in LDL [Mass/Vol] 54 mg/dL Normal [facility] Comment on above: Result Comment: Bord wtgqql=268-723 mg/dL Higher Gbui=828 mg/dL or greater Performed By: #### L 500.4100, L501.9910, L502.0250, L500.2500, L501.9985 #### [facility] [address] [place], [address] Cholesterol in VLDL [Mass/Vol] 15 mg/dL Normal 5-40 [facility] Comment on above: Performed By: #### L 500.4100, L501.9910, L502.0250, L500.2500, L501.9985 #### [facility] [address] [place], [address] Triglyceride [Mass/Vol] 73 mg/dL Normal [facility] Comment on above: Result Comment: The drugs N-Acetylcysteine and Metamizole may falsely depress this assay. Normal range: <150 mg/dL Borderline High: 150-199 mg/dL High: 200-499 mg/dL Very High: >500 mg/dL Performed By: #### L 500.4100, L501.9910, L502.0250, L500.2500, L501.9985 #### [facility] [address] [place], [address] Microalb:Creat Ratio,Random URon 09-09-2024 Creatinine [Mass/Vol] 207.00 mg/dL Normal 39.00-259.00 [facility] Comment on above: Performed By: #### L 500.4100, L501.9910, L502.0250, L500.2500, L501.9985 #### [facility] [address] [place], [address] MALB:CREAT 17.7 mg/g CRE Normal <30 mg/g CRE [facility] Comment on above: Performed By: #### L 500.4100, L501.9910, L502.0250, L500.2500, L501.9985 #### [facility] [address] [place], [address] MICROALBUMIN,UR 36.7 mg/L Normal <20 mg/L [facility] Comment on above: Performed By: #### L 500.4100, L501.9910, L502.0250, L500.2500, L501.9985 #### [facility] [address] [place], [address] PSA,Total - Annual Screenon 09-09-2024 PSA,TOT SCREEN 7.26 ng/mL High 0.02-4.00 [facility] Comment on above: Result Comment: This test was performed using the [facility] tPSA method. Measured values of a patient??sample can vary depending on the testing procedure used. PSA values determined on patient samples by different testing procedures cannot be used interchangeably. If there is a change in PSA assays while monitoring therapy, sequential testing should be performed to confirm baseline values. Performed By: #### L 500.4100, L501.9910, L502.0250, L500.2500, L501.9985 #### [facility] [address] [place], [address] Potassium measurement (mass/ volume)Ordered By: Mayco Fenton on 09-09-2024 Potassium (Unsp spec) [Mass/Vol] 4.3 mmol/L 3.3-5.1 [facility] Random urine creatinine anna urement (mass/volume)Ordered By: Mayco Fenton on 09-09-2024 Creatinine Unsp time (U) [Mass/Vol] 207.00 mg/dL 39.00-259.00 [facility] Screening total cholesterol/ high density lipoprotein (HDL) cholesterol ratioOrdered By: Mayco Fenton on 09-09-2024 Cholesterol.total/Ch olesterol in HDL [Mass ratio] 2.17 {ratio} [facility] Serum creatinine measurement (mass/volume)Ordered By: Mayco Fenton on 09-09-2024 Creatinine [Mass/Vol] 1.19 mg/dL 0.70-1.20 [facility] Serum glucose measurement (m ass/volume)Ordered By: Mayco Fenton on 09-09-2024 Glucose [Mass/Vol] 77 mg/dL 70-99 [facility] Serum or plasma calcium anna urement (mass/volume)Ordered By: Mayco Fenton on 09-09-2024 Calcium [Mass/Vol] 9.5 mg/dL 7.6-11.0 [facility] Serum or plasma cholesterol in HDL measurement (mass/volume)Ordered By: Mayco Fenton on 09-09-2024 Cholesterol in HDL [Mass/Vol] 59 mg/dL >40 [facility] Comment on above: National Cholesterol Education Program (NCEP) guidelines:<40 mg/dL: Low HDL-cholesterol (major risk factor for CHD)>= 60 mg/dL: High HDL-cholesterol (negative risk factor for CHD)HDL-cholesterol is affected by a number of factors, e.g. smoking, exercise, hormones, sex and age. Serum or plasma cholesterol measurement (mass/volume)Ordered By: Mayco Fenton on 09-09-2024 Cholesterol [Mass/Vol] 127 mg/dL <201 [facility] Comment on above: Cholesterol level, D esirable <200 mg/dLBorderline high cholesterol 200-239 mg/dLHigh cholesterol >=240 mg/dLRecommendations of the NCEP Adult Treatment Panel for the following risk-cutoff thresholds for the [place] population. Serum or plasma urea nitroge n measurement (mass/volume)Ordered By: Mayco Fenton on 09-09-2024 Urea nitrogen [Mass/Vol] 15 mg/dL 4-19 [facility] Sodium levelOrdered By: Mayco Fenton on 09-09-2024 Sodium [Moles/Vol] 139 mmol/L 133-145 [facility] Triglycerides measurementOrd ered By: Mayco Fenton on 09-09-2024 Triglyceride [Mass/Vol] 73 mg/dL <199 [facility] Comment on above: The drugs N-Acetylcy steine and Metamizole may falsely depress this assay. Normal range: <150 mg/dLBorderline High: 150-199 mg/dLHigh: 200-499 mg/dLVery High: >500 mg/dL Urine albumin measurement wi detection limit of 20 mg/L or less (mass/volume)Ordered By: Mayco Fenton on 09-09-2024 Albumin DL <= 20 mg/L (U) [Mass/Vol] 36.7 mg/L <20 mg/L [facility] Office Visit Reporton 2024 Office Visit Report [facility] [address] 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 Allergies No Known Allergies Allergy (Unverified 06/22/24 16:52) Office Procedures [facility] Billing Sheet Testing Breath Alcohol Test Pre-Employment: Yes Pre-Employment Drug Screen: Yes Pre-Employment PE: Yes 06/30/24 1720 Date Ariel Robert Signature: Date (if applicable) CC: Normal [facility] Visit Reporton 0 5-06-2025 Urgent Care Visit Report [facility] [address], [address] [place] [address] OFFICE VISIT Date of Service: 06/22/24 MR#: [id number] Acct: [id number] Name: JEFFERSON CARCAMO Rep #: [id number] : 1960 Provider: JANAY Christine Age/Sex: 63/M Location: [facility] Status: Signed Intake Intake Visit 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 Accompanied by: Self Allergies No Known Allergies Allergy (Unverified 06/22/24 16:52) Medications ???Medication ???Instructions ???Recorded ???Confirmed ???Type allopurinol 200 mg tablet 200 mg PO QDAY 06/22/24 06/22/24 H istory atorvastatin 40 mg tablet 40 mg PO QDAY 06/22/24 06/22/24 Hi story glimepiride 2 mg tablet 2 mg PO QAM 06/22/24 06/22/24 Hist ory lisinopril 10 mg tablet 10 mg PO QDAY 06/22/24 06/22/24 Hi story metformin 500 mg tablet 500 mg PO QDAY 06/22/24 06/22/24 H istory metoprolol tartrate 50 mg tablet 50 mg PO QDAY 06/22/24 06/22/24 Hi story rivaroxaban 10 mg tablet (Xarelto) 10 mg PO QDAY 06/22/24 06/22/24 History Nurse's Note: Patient here for a Pre-Employment physical. [facility] Medical History (Updated 06/22/24 @ 16:55 by Mirna Andres MA) Physical exam, pre-employment Surgical History (Updated 06/22/24 @ 16:55 by Mirna Andres MA) History of hip replacement, total Family History (Updated 06/22/24 @ 16:54 by Mirna Andres MA) Mother Lung cancer Father Lung cancer HPI HPI Details: JEFFERSON CARCAMO, is a 26 M who presents to the office today for Office Procedures Physical Exam Coding PE Coding Pre-employment PE: Yes Coding Level of Care Code No Charge Diagnoses Physical exam, pre-employment Z02.1 Assessment and Plan Assessment and Plan (1) Physical exam, pre-employment: Status: Acute 06/22/24 1700 Date Ariel Robert Signature: Date (if applicable) CC: Normal [facility] ALBUMIN, RANDOM URINE W/CREA CARLOS 04-14-2024 ALBUMIN, URINE 1.4 mg/dL Normal See Note: [facility] Comment on above: Result Comment: Refe renjennifer Range: Reference Range Not established Performed By: #### 9 9425, 927, 622, 74747, 7600, 6517, 905, 6399 #### [facility] [address], [address] [place], [place] [id number] Surgeon Partner: Aquiles Patel MD ALBUMIN/CREATININE RATIO, RANDOM URINE 13 mg/g creat Normal <30 [facility] Comment on above: Result Comment: The ADA defines abnormalities in albumin excretion as follows: Albuminuria Category Result (mg/g creatinine) Normal to Mildly increased <30 Moderately increased 30-299 Severely increased > OR = 300 The ADA recommends that at least two of three specimens collected within a 3-6 month period be abnormal before considering a patient to be within a diagnostic category. Performed By: #### 9 7825, 927, 622, 02010, 7600, 6517, 905, 6399 #### [facility] [place] [address] [facility], [address] [place] [id number] Surgeon Partner: Aquiles Patel MD Creatinine (U) [Mass/Vol] 105 mg/dL Normal 20-320 [facility] Comment on above: Performed By: #### 9 4045, 927, 622, 07718, 7600, 6517, 905, 6399 #### [facility] [address], [address] [place] [id number] Surgeon Partner: Aquiles Patel MD CBC (INCLUDES DIFF/PLT)on Basophils (Bld) [#/Vol] 0.053 10*3/uL Normal 0-200 [facility] Comment on above: Performed By: #### 9 2665, 927, 622, 98349, 7600, 6517, 905, 6399 #### [facility] [place] [address] Surgeon Partner: Aquiles Patel MD Basophils/100 WBC (Bld) 0.5 % Normal [facility] Comment on above: Performed By: #### 9 2665, 927, 622, 94383, 7600, 6517, 905, 6399 #### [facility] [place] [address] Surgeon Partner: Aquiles Patel MD Eosinophils (Bld) [#/Vol] 0.242 10*3/uL Normal 15-500 [facility] Comment on above: Performed By: #### 9 2665, 927, 622, 46730, 7600, 6517, 905, 6399 #### [facility] [place] [address] Surgeon Partner: Aquiles Patel MD Eosinophils/100 WBC (Bld) 2.3 % Normal [facility] Comment on above: Performed By: #### 9 2665, 927, 622, 61560, 7600, 6517, 905, 6399 #### [facility] [place] [address] Surgeon Partner: Auqiles Patel MD Erythrocyte distribution width (RBC) [Ratio] 13.0 % Normal 11.0-15.0 [facility] Comment on above: Performed By: #### 9 2665, 927, 622, 66781, 7600, 6517, 905, 6399 #### [facility] [place] [address] Surgeon Partner: Aquiles Patel MD Hematocrit (Bld) [Volume fraction] 40.0 % Normal 38.5-50.0 [facility] Comment on above: Performed By: #### 9 2665, 927, 622, 98377, 7600, 6517, 905, 6399 #### [facility] [place] [address] Surgeon Partner: Aquiles Patel MD Hemoglobin (Bld) [Mass/Vol] 13.9 g/dL Normal 13.2-17.1 [facility] Comment on above: Performed By: #### 9 2665, 927, 622, 70400, 7600, 6517, 905, 6399 #### [facility] [place] [address] Surgeon Partner: Aquiles Patel MD Lymphocytes (Bld) [#/Vol] 4.263 10*3/uL High 850-3900 [facility] Comment on above: Performed By: #### 9 2665, 927, 622, 84329, 7600, 6517, 905, 6399 #### [facility] [place] [address] Surgeon Partner: Aquiles Patel MD Lymphocytes/100 WBC (Bld) 40.6 % Normal [facility] Comment on above: Performed By: #### 9 2665, 927, 622, 96225, 7600, 6517, 905, 6399 #### [facility] [place] [address] Surgeon Partner: Aquiles Patel MD MCH (RBC) [Entitic mass] 31.7 pg Normal 27.0-33.0 [facility] Comment on above: Performed By: #### 9 2665, 927, 622, 61152, 7600, 6517, 905, 6399 #### [facility] [place] [address] Surgeon Partner: Aquiles Patel MD MCHC (RBC) [Mass/Vol] 34.8 g/dL Normal 32.0-36.0 [facility] Comment on above: Result Comment: For adults, a slight decrease in the calculated MCHC value (in the range of 30 to 32 g/dL) is most likely not clinically significant; however, it should be interpreted with caution in correlation with other red cell parameters and the patient's clinical condition. Performed By: #### 9 2665, 927, 622, 70132, 7600, 6517, 905, 6399 #### [facility] [place] [address] Surgeon Partner: Aquiles Patel MD MCV (RBC) [Entitic vol] 91.3 fL Normal 80.0-100.0 [facility] Comment on above: Performed By: #### 9 2665, 927, 622, 80011, 7600, 6517, 905, 6399 #### [facility] [place] [address] Surgeon Partner: Aquiles Patel MD Monocytes (Bld) [#/Vol] 0.872 10*3/uL Normal 200-950 [facility] Comment on above: Performed By: #### 9 2665, 927, 622, 29482, 7600, 6517, 905, 6399 #### [facility] [place] [address] Surgeon Partner: Aquiles Patel MD Monocytes/100 WBC (Bld) 8.3 % Normal [facility] Comment on above: Performed By: #### 9 2665, 927, 622, 63482, 7600, 6517, 905, 6399 #### [facility] [place] [address] Surgeon Partner: Aquiles Patel MD Neutrophils (Bld) [#/Vol] 5.072 10*3/uL Normal 8647-1498 [facility] Comment on above: Performed By: #### 9 2665, 927, 622, 27694, 7600, 6517, 905, 6399 #### [facility] [place] [address] Surgeon Partner: Aquiles Patel MD Neutrophils/100 WBC (Bld) 48.3 % Normal [facility] Comment on above: Performed By: #### 9 2665, 927, 622, 59345, 7600, 6517, 905, 6399 #### [facility] [place] [address] Surgeon Partner: Aquiles Patel MD Platelet mean volume (Bld) [Entitic vol] 10.5 fL Normal 7.5-12.5 [facility] Comment on above: Performed By: #### 9 2665, 927, 622, 01405, 7600, 6517, 905, 6399 #### [facility] [place] [address] Surgeon Partner: Aquiles Patel MD Platelets (Bld) [#/Vol] 299 10*3/uL Normal 140-400 [facility] Comment on above: Performed By: #### 9 2665, 927, 622, 25161, 7600, 6517, 905, 6399 #### [facility] [place] [address] Surgeon Partner: Aquiles Patel MD RBC (Bld) [#/Vol] 4.38 10*6/uL Normal 4.20-5.80 [facility] Comment on above: Performed By: #### 9 2665, 927, 622, 02574, 7600, 6517, 905, 6399 #### [facility] [place] [address] Surgeon Partner: Aquiles Patel MD WBC (Bld) [#/Vol] 10.5 10*3/uL Normal 3.8-10.8 [facility] Comment on above: Performed By: #### 9 2665, 927, 622, 34657, 7600, 6517, 905, 6399 #### [facility] [place] [address] Surgeon Partner: Aquiles Patel MD COMPREHENSIVE METABOLIC PANE L W/ANION GAPon 04-14-2024 Albumin [Mass/Vol] 4.3 g/dL Normal 3.6-5.1 [facility] Comment on above: Performed By: #### 9 2665, 927, 622, 21738, 7600, 6517, 905, 6399 #### [facility] [place] [address] Surgeon Partner: Aquiles Patel MD ALP [Catalytic activity/Vol] 84 U/L Normal 35-144 [facility] Comment on above: Performed By: #### 9 2665, 927, 622, 74776, 7600, 6517, 905, 6399 #### [facility] [place] [address] Surgeon Partner: Aquiles Patel MD ALT [Catalytic activity/Vol] 14 U/L Normal 9-46 [facility] Comment on above: Performed By: #### 9 2665, 927, 622, 86542, 7600, 6517, 905, 6399 #### [facility] [place] [address] Surgeon Partner: Aquiles Patel MD AST [Catalytic activity/Vol] 15 U/L Normal 10-35 [facility] Comment on above: Performed By: #### 9 2665, 927, 622, 16171, 7600, 6517, 905, 6399 #### [facility] [place] [address] Surgeon Partner: Aquiles Patel MD Bilirubin [Mass/Vol] 0.5 mg/dL Normal 0.2-1.2 [facility] Comment on above: Performed By: #### 9 2665, 927, 622, 53830, 7600, 6517, 905, 6399 #### [facility] [place] [address] Surgeon Partner: Aquiles Patel MD Calcium [Mass/Vol] 9.3 mg/dL Normal 8.6-10.3 [facility] Comment on above: Performed By: #### 9 2665, 927, 622, 89464, 7600, 6517, 905, 6399 #### [facility] [place] [address] Surgeon Partner: Aquiles Patel MD Chloride [Moles/Vol] 102 mmol/L Normal 98-110 [facility] Comment on above: Performed By: #### 9 2665, 927, 622, 96717, 7600, 6517, 905, 6399 #### [facility] [place] [address] Surgeon Partner: Aquiles Patel MD CO2 [Moles/Vol] 28 mmol/L Normal 20-32 [facility] Comment on above: Performed By: #### 9 2665, 927, 622, 90755, 7600, 6517, 905, 6399 #### [facility] [place] [address] Surgeon Partner: Aquiles Patel MD Creatinine [Mass/Vol] 1.03 mg/dL Normal 0.70-1.35 [facility] Comment on above: Performed By: #### 9 2665, 927, 622, 74018, 7600, 6517, 905, 6399 #### [facility] [place] [address] Surgeon Partner: Aquiles Patel MD ELECTROLYTE BALANCE 9 mmol/L (calc) Normal 7-17 [facility] Comment on above: Performed By: #### 9 2665, 927, 622, 24327, 7600, 6517, 905, 6399 #### [facility] [place] [address] Surgeon Partner: Aquiles Patel MD GFR/1.73 sq M.predicted among non-blacks MDRD (S/P/Bld) [Vol rate/Area] 83 mL/min/{1.73_m2} Normal > OR = 60 [facility] Comment on above: Performed By: #### 9 2665, 927, 622, 04601, 7600, 6517, 905, 6399 #### [facility] [place] [address] Surgeon Partner: Aquiles Patel MD Glucose [Mass/Vol] 135 mg/dL High 65-99 [facility] Comment on above: Result Comment: Fasting reference interval For someone without known diabetes, a glucose value >125 mg/dL indicates that they may have diabetes and this should be confirmed with a follow-up test. Performed By: #### 9 2665, 927, 622, 69519, 7600, 6517, 905, 6399 #### [facility] [place] [address] Surgeon Partner: Aquiles Patel MD Potassium [Moles/Vol] 4.2 mmol/L Normal 3.5-5.3 [facility] Comment on above: Performed By: #### 9 2665, 927, 622, 34713, 7600, 6517, 905, 6399 #### [facility] [place] [address] Surgeon Partner: Aquiles Patel MD Protein [Mass/Vol] 7.0 g/dL Normal 6.1-8.1 [facility] Comment on above: Performed By: #### 9 2665, 927, 622, 85111, 7600, 6517, 905, 6399 #### [facility] [place] [address] Surgeon Partner: Aquiles Patel MD Sodium [Moles/Vol] 139 mmol/L Normal 135-146 [facility] Comment on above: Performed By: #### 9 2665, 927, 622, 21777, 7600, 6517, 905, 6399 #### [facility] [place] [address] Surgeon Partner: Aquiles Patel MD Urea nitrogen [Mass/Vol] 14 mg/dL Normal 7-25 [facility] Comment on above: Performed By: #### 9 2665, 927, 622, 88224, 7600, 6517, 905, 6399 #### [facility] [place] [address], [address] [place] [address] Surgeon Partner: Aquiles Patel MD HEMOGLOBIN A1c WITH eAGon eAG (mmol/L) 8.7 mmol/L Normal [facility] Comment on above: Performed By: #### 9 2665, 927, 622, 11954, 7600, 6517, 905, 6399 #### [facility] of [address], [address] [place] [address] Surgeon Partner: Aquiles Patel MD HEMOGLOBIN A1c 7.1 % of total Hgb High <5.7 [facility] Comment on above: Result Comment: For someone without known diabetes, a hemoglobin A1c value of 6.5% or greater indicates that they may have diabetes and this should be confirmed with a follow-up test. For someone with known diabetes, a value <7% indicates that their diabetes is well controlled and a value greater than or equal to 7% indicates suboptimal control. A1c targets should be individualized based on duration of diabetes, age, comorbid conditions, and other considerations. Currently, no consensus exists regarding use of hemoglobin A1c for diagnosis of diabetes for children. Performed By: #### 9 2665, 927, 622, 56389, 7600, 6517, 905, 6399 #### [facility] [address], [address] [place] [address] Surgeon Partner: Aquiles Patel MD Magnesium [Mass/Vol] 157 mg/dL Normal [facility] Comment on above: Performed By: #### 9 2665, 927, 622, 11125, 7600, 6517, 905, 6399 #### [facility] of [address], [address] [place] [address] Surgeon Partner: Aquiles Patel MD LIPID PANEL, STANDARDon 03-21 Cholesterol [Mass/Vol] 111 mg/dL Normal <200 [facility] Comment on above: Performed By: #### 9 2665, 927, 622, 78909, 7600, 6517, 905, 6399 #### [facility] of [address], [address] [place] [address] Surgeon Partner: Aquiles Patel MD Cholesterol in HDL [Mass/Vol] 51 mg/dL Normal > OR = 40 [facility] Comment on above: Performed By: #### 9 2665, 927, 622, 99882, 7600, 6517, 905, 6399 #### [facility] [address], [address] [place] [address] Surgeon Partner: Aquiles Patel MD Cholesterol in LDL [Mass/Vol] 44 mg/dL Normal [facility] Comment on above: Result Comment: Refe rence range: <100 Desirable range <100 mg/dL for primary prevention; <70 mg/dL for patients with CHD or diabetic patients with > or = 2 CHD risk factors. LDL-C is now calculated using the Dannielle calculation, which is a validated novel method providing better accuracy than the Friedewald equation in the estimation of LDL-C. Mohsen SS et al. CHINEDU. 2013;310(19): 8501-9478 (http://education.MundoHablado.com.Cswitch/faq/ZRG008) Performed By: #### 9 2665, 927, 622, 21551, 7600, 6517, 905, 6399 #### [facility] [place] [address] Surgeon Partner: Aquiles Patel MD Cholesterol.total/Ch olesterol in HDL [Mass ratio] 2.2 {ratio} Normal <5.0 [facility] Comment on above: Performed By: #### 9 2665, 927, 622, 86424, 7600, 6517, 905, 6399 #### [facility] [address], [address] [place] [address] Surgeon Partner: Aquiles Patel MD NON HDL CHOLESTEROL 60 mg/dL (calc) Normal <130 [facility] Comment on above: Result Comment: For patients with diabetes plus 1 major ASCVD risk factor, treating to a non-HDL-C goal of <100 mg/dL (LDL-C of <70 mg/dL) is considered a therapeutic option. Performed By: #### 9 3905, 927, 622, 98473, 7600, 6517, 905, 6399 #### [facility] [place] [address] Surgeon Partner: Aquiles Patel MD Triglyceride [Mass/Vol] 79 mg/dL Normal <150 [facility] Comment on above: Performed By: #### 9 9405, 927, 622, 92002, 7600, 6517, 905, 6399 #### [facility] [place] [address] Surgeon Partner: Aquiles Patel MD MAGNESIUMon 04-14-2024 Magnesium [Mass/Vol] 2.0 mg/dL Normal 1.5-2.5 [facility] Comment on above: Performed By: #### 9 6455, 927, 622, 64002, 7600, 6517, 905, 6399 #### [facility] [place] [address] Surgeon Partner: Aquiles Patel MD URIC ACIDon 04-14-2024 Urate [Mass/Vol] 3.9 mg/dL Low 4.0-8.0 [facility] Comment on above: Result Comment: Ther apeutic target for gout patients: <6.0 mg/dL Performed By: #### 9 2005, 927, 622, 32734, 7600, 6517, 905, 6399 #### [facility] [place] [address] Surgeon Partner: Aquiles Patel MD VITAMIN B12on 04-14-2024 Cobalamin (Vitamin B12) [Mass/Vol] 696 pg/mL Normal 200-1100 [facility] Comment on above: Performed By: #### 9 2665, 927, 622, 23086, 7600, 6517, 905, 6399 #### [facility] [place] [address] Surgeon Partner: Aquiles Patel MD CBC W Auto Differential pane l (Bld)on 02-07-2024 Basophils (Bld) [#/Vol] 0.03 10*3/uL [facility] Basophils/100 WBC (Bld) 0.3 % 0.0 - 2.0 % [facility] Eosinophils (Bld) [#/Vol] 0.02 10*3/uL [facility] Eosinophils/100 WBC (Bld) 0.2 % 0.0 - 6.0 % [facility] Erythrocyte distribution width (RBC) [Ratio] 12.2 % 11.5 - 14.5 % [facility] Hematocrit (Bld) [Volume fraction] 43.9 % 41.0 - 52.0 % [facility] Hemoglobin (Bld) [Mass/Vol] 14.4 g/dL 13.5 - 17.5 g/dL [facility] Immature granulocytes (Bld) [#/Vol] 0.03 10*3/uL [facility] Immature granulocytes/100 WBC (Bld) 0.3 % 0.0 - 0.9 % [facility] Comment on above: Immature Granulocyte Count (IG) includes promyelocytes, myelocytes and metamyelocytes but does not include bands. Percent differential counts (%) should be interpreted in the context of the absolute cell counts (cells/UL). Lymphocytes (Bld) [#/Vol] 2.53 10*3/uL [facility] Lymphocytes/100 WBC (Bld) 24 % 13.0 - 44.0 % [facility] MCH (RBC) [Entitic mass] 29.9 pg 26.0 - 34.0 pg [facility] MCHC (RBC) [Mass/Vol] 32.8 g/dL 32.0 - 36.0 g/dL [facility] MCV (RBC) [Entitic vol] 91 fL 80 - 100 fL [facility] Monocytes (Bld) [#/Vol] 0.79 10*3/uL [facility] Monocytes/100 WBC (Bld) 7.5 % 2.0 - 10.0 % [facility] Neutrophils (Bld) [#/Vol] 7.15 10*3/uL [facility] Comment on above: Percent differential counts (%) should be interpreted in the context of the absolute cell counts (cells/uL). Neutrophils/100 WBC (Bld) 67.7 % 40.0 - 80.0 % [facility] Nucleated RBC/100 WBC (Bld) [Ratio] 0 % [facility] Platelets (Bld) [#/Vol] 360 10*3/uL [facility] RBC (Bld) [#/Vol] 4.81 10*6/uL [facility] WBC (Bld) [#/Vol] 10.6 10*3/uL [facility] Basophils (Bld) [#/Vol] 0.03 x10*3/uL Normal 0.00-0.10 [facility] Comment on above: Performed By: #### 5 7021-8 #### SILVERIO NI ([id number]) [facility] ([facility]) [address] [place] [address] Basophils/100 WBC (Bld) 0.3 % Normal 0.0-2.0 [facility] Comment on above: Performed By: #### 5 7021-8 #### SILVERIO NI ([id number]) [facility] ([facility]) [address] [place] [address] Eosinophils (Bld) [#/Vol] 0.02 x10*3/uL Normal 0.00-0.70 [facility] Comment on above: Performed By: #### 5 7021-8 #### SILVERIO NI ([id number]) [facility] ([facility]) [address] [place] [address] Eosinophils/100 WBC (Bld) 0.2 % Normal 0.0-6.0 [facility] Comment on above: Performed By: #### 5 7021-8 #### SILVERIO NI ([id number]) [facility] ([facility]) [address] [place] [address] Erythrocyte distribution width (RBC) [Ratio] 12.2 % Normal 11.5-14.5 [facility] Comment on above: Performed By: #### 5 7021-8 #### SILVERIO NI ([id number]) [facility] ([facility]) [address] [place] [address] Hematocrit (Bld) [Volume fraction] 43.9 % Normal 41.0-52.0 [facility] Comment on above: Performed By: #### 5 7021-8 #### SILVERIO NI ([id number]) [facility] ([facility]) [address] [place] [address] Hemoglobin (Bld) [Mass/Vol] 14.4 g/dL Normal 13.5-17.5 [facility] Comment on above: Performed By: #### 5 7021-8 #### SILVERIO NI ([id number]) [facility] ([facility]) [id number] [place] [address] Immature granulocytes (Bld) [#/Vol] 0.03 x10*3/uL Normal 0.00-0.70 [facility] Comment on above: Performed By: #### 5 7021-8 #### SILVERIO NI ([id number]) [facility] ([facility]) [address] [place] [address] Immature granulocytes/100 WBC (Bld) 0.3 % Normal 0.0-0.9 [facility] Comment on above: Result Comment: Leesa ture Granulocyte Count (IG) includes promyelocytes, myelocytes and metamyelocytes but does not include bands. Percent differential counts (%) should be interpreted in the context of the absolute cell counts (cells/UL). Performed By: #### 5 7021-8 #### SILVERIO NI ([id number]) [facility] ([facility]) [address] [place] [address] Lymphocytes (Bld) [#/Vol] 2.53 x10*3/uL Normal 1.20-4.80 [facility] Comment on above: Performed By: #### 5 7021-8 #### SILVERIO NI ([id number]) [facility] ([facility]) [address] [place] [address] Lymphocytes/100 WBC (Bld) 24.0 % Normal 13.0-44.0 [facility] Comment on above: Performed By: #### 5 7021-8 #### SILVERIO NI ([id number]) [facility] ([facility]) [address] [place] [address] MCH (RBC) [Entitic mass] 29.9 pg Normal 26.0-34.0 [facility] Comment on above: Performed By: #### 5 7021-8 #### SILVERIO NI ([id number]) [facility] ([facility]) [address] [place] [address] MCHC (RBC) [Mass/Vol] 32.8 g/dL Normal 32.0-36.0 [facility] Comment on above: Performed By: #### 5 7021-8 #### SILVERIO NI ([id number]) [facility] ([facility]) [address] [place] [address] MCV (RBC) [Entitic vol] 91 fL Normal 80-100 [facility] Comment on above: Performed By: #### 5 7021-8 #### SILVERIO NI ([id number]) [facility] ([facility]) [address] [place] [address] Monocytes (Bld) [#/Vol] 0.79 x10*3/uL Normal 0.10-1.00 [facility] Comment on above: Performed By: #### 5 7021-8 #### SILVERIO NI ([id number]) [facility] ([facility]) [address] [place] [address] Monocytes/100 WBC (Bld) 7.5 % Normal 2.0-10.0 [facility] Comment on above: Performed By: #### 5 7021-8 #### SILVERIO NI ([id number]) [facility] ([facility]) [address] [place] [address] Neutrophils (Bld) [#/Vol] 7.15 x10*3/uL Normal 1.20-7.70 [facility] Comment on above: Result Comment: Perc ent differential counts (%) should be interpreted in the context of the absolute cell counts (cells/uL). Performed By: #### 5 7021-8 #### SILVERIO NI ([id number]) [facility] ([facility]) [address] [place] [address] Neutrophils/100 WBC (Bld) 67.7 % Normal 40.0-80.0 [facility] Comment on above: Performed By: #### 5 7021-8 #### SILVERIO NI ([id number]) [facility] ([facility]) [address] [place] [address] Nucleated RBC/100 WBC (Bld) [Ratio] 0.0 /100 WBCs Normal 0.0-0.0 [facility] Comment on above: Performed By: #### 5 7021-8 #### SILVERIO NI ([id number]) [facility] ([facility]) [address] [place] [address] Platelets (Bld) [#/Vol] 360 x10*3/uL Normal 150-450 [facility] Comment on above: Performed By: #### 5 7021-8 #### SILVERIO NI ([id number]) [facility] ([facility]) [address] [place] [address] RBC (Bld) [#/Vol] 4.81 x10*6/uL Normal 4.50-5.90 [facility] Comment on above: Performed By: #### 5 7021-8 #### SILVERIO NI ([id number]) [facility] ([facility]) [address] [place] [address] WBC (Bld) [#/Vol] 10.6 x10*3/uL Normal 4.4-11.3 [facility] Comment on above: Performed By: #### 5 7021-8 #### SILVERIO NI ([id number]) [facility] ([facility]) [address] [place] [address] Comprehensive metabolic 2000 panelon 02-07-2024 Albumin BCP dye [Mass/Vol] 4 g/dL 3.4 - 5.0 g/dL [facility] ALP [Catalytic activity/Vol] 84 U/L 33 - 136 U/L [facility] ALT With P-5'-P [Catalytic activity/Vol] 17 U/L 10 - 52 U/L [facility] Comment on above: Patients treated wit h Sulfasalazine may generate falsely decreased results for ALT. Anion gap [Moles/Vol] 13 mmol/L 10 - 20 mmol/L [facility] AST With P-5'-P [Catalytic activity/Vol] 17 U/L 9 - 39 U/L [facility] Bilirubin [Mass/Vol] 0.5 mg/dL 0.0 - 1 .2 mg/dL [facility] Calcium [Mass/Vol] 9.7 mg/dL 8.6 - 10. 3 mg/dL [facility] Chloride [Moles/Vol] 100 mmol/L 98 - 10 7 mmol/L [facility] CO2 [Moles/Vol] 29 mmol/L 21 - 32 mmol/L [facility] Creatinine [Mass/Vol] 1.1 mg/dL 0.50 - 1.30 mg/dL [facility] GFR/1.73 sq M.predicted among non-blacks MDRD (S/P/Bld) [Vol rate/Area] 76 mL/min/{1.73_m2} - PINF [facility] Comment on above: Calculations of fara mated GFR are performed using the 2020 CKD-EPI Study Refit equation without the race variable for the IDMS-Traceable creatinine methods. https://jasn.asnjournals.org/content//ASN.7489127 988 Glucose [Mass/Vol] 174 mg/dL High 74 - 99 mg/dL [facility] Potassium [Moles/Vol] 5 mmol/L 3.5 - 5.3 mmol/L [facility] Protein [Mass/Vol] 7 g/dL 6.4 - 8.2 g/dL [facility] Sodium [Moles/Vol] 137 mmol/L 136 - 145 mmol/L [facility] Urea nitrogen [Mass/Vol] 14 mg/dL 6 - 23 mg/dL [facility] Albumin BCP dye [Mass/Vol] 4.0 g/dL Normal 3.4-5.0 [facility] Comment on above: Performed By: #### 2 4323-8 #### SILVERIO NI ([id number]) [facility] ([facility]) [address] [place] [address] ALP [Catalytic activity/Vol] 84 U/L Normal 33-136 [facility] Comment on above: Performed By: #### 2 4323-8 #### SILVERIO NI ([id number]) [facility] ([facility]) [address] [place] [address] ALT With P-5'-P [Catalytic activity/Vol] 17 U/L Normal 10-52 [facility] Comment on above: Result Comment: Svetlana ents treated with Sulfasalazine may generate falsely decreased results for ALT. Performed By: #### 2 4323-8 #### SILVERIO NI ([id number]) [facility] ([facility]) [address] [place] [address] Anion gap [Moles/Vol] 13 mmol/L Normal 10-20 [facility] Comment on above: Performed By: #### 2 4323-8 #### SILVERIO NI ([id number]) [facility] ([facility]) [address] [place] [address] AST With P-5'-P [Catalytic activity/Vol] 17 U/L Normal 9-39 [facility] Comment on above: Performed By: #### 2 4323-8 #### SILVERIO NI ([id number]) [facility] ([facility]) [address] [place] [address] Bilirubin [Mass/Vol] 0.5 mg/dL Normal 0.0-1.2 [facility] Comment on above: Performed By: #### 2 4323-8 #### SILVERIO NI ([id number]) [facility] ([facility]) [address] [place] [address] Calcium [Mass/Vol] 9.7 mg/dL Normal 8.6-10.3 [facility] Comment on above: Performed By: #### 2 4323-8 #### SILVERIO NI ([id number]) [facility] ([facility]) [address] [place] [address] Chloride [Moles/Vol] 100 mmol/L Normal 98-107 [facility] Comment on above: Performed By: #### 2 4323-8 #### SILVERIO NI ([id number]) [facility] ([facility]) [address] [place] [address] CO2 [Moles/Vol] 29 mmol/L Normal 21-32 [facility] Comment on above: Performed By: #### 2 4323-8 #### SILVERIO NI ([id number]) [facility] ([facility]) [address] [place] [address] Creatinine [Mass/Vol] 1.10 mg/dL Normal 0.50-1.30 [facility] Comment on above: Performed By: #### 2 4323-8 #### SILVERIO NI ([id number]) [facility] ([facility]) [address] [place] [address] Glomerular filtration rate/1.73 sq M.predicted 76 mL/min/1.73m*2 Normal >60 [facility] Comment on above: Result Comment: Calc ulations of estimated GFR are performed using the 2020 CKD-EPI Study Refit equation without the race variable for the IDMS-Traceable creatinine methods. https://jasn.asnjournals.org/content//ASN.8891297 988 Performed By: #### 2 4323-8 #### SILVERIO NI ([id number]) [facility] ([facility]) [address] [place] [address] Glucose [Mass/Vol] 174 mg/dL High 74-99 [facility] Comment on above: Performed By: #### 2 4323-8 #### SILVERIO NI ([id number]) [facility] ([facility]) [address] [place] [address] Potassium [Moles/Vol] 5.0 mmol/L Normal 3.5-5.3 [facility] Comment on above: Performed By: #### 2 4323-8 #### SILVERIO NI ([id number]) [facility] ([facility]) [address] [place] [address] Protein [Mass/Vol] 7.0 g/dL Normal 6.4-8.2 [facility] Comment on above: Performed By: #### 2 4323-8 #### SILVERIO NI ([id number]) [facility] ([facility]) [address] [place] [address] Sodium [Moles/Vol] 137 mmol/L Normal 136-145 [facility] Comment on above: Performed By: #### 2 4323-8 #### SILVERIO NI ([id number]) [facility] ([facility]) [address] [place] [address] Urea nitrogen [Mass/Vol] 14 mg/dL Normal 6-23 [facility] Comment on above: Performed By: #### 2 4323-8 #### SILVERIO NI ([id number]) [facility] ([facility]) [address] [place] [address] ECG 12-LEADon 02-07-2024 ECG 12-LEAD Ventricular Rate 80 Atrial Rate 80 P-R Interval 178 QRS Duration 78 Q-T Interval 378 QTC Calculation(Bazett) 435 P [place] 50 R [place] 49 T [place] 69 QRS Count 13 Q Onset 221 P Onset 132 P Offset 174 T Offset 410 QTC Fredericia 416 Diagnosis Normal sinus rhythm Normal ECG When compared with ECG of 29-AUG-2008 14:32, T wave inversion no longer evident in Inferior leads Confirmed by Tari Baig ([id number]) on 02/15/2024 2:01:13 PM Normal [facility] Influenza virus A and B and SARS-CoV-2 (COVID-19) identified TICO+probe Nom (Resp)on 02-07-2024 FLUAV RNA TICO+probe Ql (Resp) Not detected Not Detected [facility] FLUBV RNA TICO+probe Ql (Resp) Not detected Not Detected [facility] Interpretation and review of laboratory results Normal [facility] SARS-CoV-2 (COVID-19) RNA TICO+probe Ql (Resp) Not detected Not Detected [facility] This assay has received FDA Emergency Use Authorization (EUA) and is only authorized for the duration of time that circumstances exist to justify the authorization of the emergency use of in vitro diagnostic tests for the detection of SARS-CoV-2 virus and/or diagnosis of COVID-19 infection under section 564(b)(1) of the Act, 21 U.S.C. 360bbb-3(b)(1). Testing for SARS-CoV-2 is only recommended for patients who meet current clinical and/or epidemiological criteria as defined by federal, state, or local public health directives. This assay is an in vitro diagnostic nucleic acid amplification test for the qualitative detection of SARS-CoV-2, Influenza A, and Influenza B from nasopharyngeal specimens and has been validated for use at [facility]. Negative results do not preclude COVID-19 infections or Influenza A/B infections, and should not be used as the sole basis for diagnosis, treatment, or other management decisions. If Influenza A/B and RSV PCR results are negative, testing for Parainfluenza virus, Adenovirus and Metapneumovirus is routinely performed for [facility] pediatric oncology and intensive care inpatients, and is available on other patients by placing an add-on request. [facility] FLUAV RNA TICO+probe Ql (Resp) Not detected Normal Not Detected [facility] Comment on above: Order Comment: This assay has received FDA Emergency Use Authorization (EUA) and is only authorized for the duration of time that circumstances exist to justify the authorization of the emergency use of in vitro diagnostic tests for the detection of SARS-CoV-2 virus and/or diagnosis of COVID-19 infection under section 564(b)(1) of the Act, 21 U.S.C. 360bbb-3(b)(1). Testing for SARS-CoV-2 is only recommended for patients who meet current clinical and/or epidemiological criteria as defined by federal, state, or local public health directives. This assay is an in vitro diagnostic nucleic acid amplification test for the qualitative detection of SARS-CoV-2, Influenza A, and Influenza B from nasopharyngeal specimens and has been validated for use at [facility]. Negative results do not preclude COVID-19 infections or Influenza A/B infections, and should not be used as the sole basis for diagnosis, treatment, or other management decisions. If Influenza A/B and RSV PCR results are negative, testing for Parainfluenza virus, Adenovirus and Metapneumovirus is routinely performed for [facility] pediatric oncology and intensive care inpatients, and is available on other patients by placing an add-on request. Performed By: #### 9 5423-0 #### SILVERIO NI ([id number]) [facility] ([facility]) [address] [place] [address] FLUBV RNA TICO+probe Ql (Resp) Not detected Normal Not Detected [facility] Comment on above: Order Comment: This assay has received FDA Emergency Use Authorization (EUA) and is only authorized for the duration of time that circumstances exist to justify the authorization of the emergency use of in vitro diagnostic tests for the detection of SARS-CoV-2 virus and/or diagnosis of COVID-19 infection under section 564(b)(1) of the Act, 21 U.S.C. 360bbb-3(b)(1). Testing for SARS-CoV-2 is only recommended for patients who meet current clinical and/or epidemiological criteria as defined by federal, state, or local public health directives. This assay is an in vitro diagnostic nucleic acid amplification test for the qualitative detection of SARS-CoV-2, Influenza A, and Influenza B from nasopharyngeal specimens and has been validated for use at [facility]. Negative results do not preclude COVID-19 infections or Influenza A/B infections, and should not be used as the sole basis for diagnosis, treatment, or other management decisions. If Influenza A/B and RSV PCR results are negative, testing for Parainfluenza virus, Adenovirus and Metapneumovirus is routinely performed for [facility] pediatric oncology and intensive care inpatients, and is available on other patients by placing an add-on request. Performed By: #### 9 5423-0 #### SILVERIO NI ([id number]) [facility] ([facility]) [address] [place] [address] SARS-CoV-2 (COVID-19) RNA TICO+probe Ql (Resp) Not detected Normal Not Detected [facility] Comment on above: Order Comment: This assay has received FDA Emergency Use Authorization (EUA) and is only authorized for the duration of time that circumstances exist to justify the authorization of the emergency use of in vitro diagnostic tests for the detection of SARS-CoV-2 virus and/or diagnosis of COVID-19 infection under section 564(b)(1) of the Act, 21 U.S.C. 360bbb-3(b)(1). Testing for SARS-CoV-2 is only recommended for patients who meet current clinical and/or epidemiological criteria as defined by federal, state, or local public health directives. This assay is an in vitro diagnostic nucleic acid amplification test for the qualitative detection of SARS-CoV-2, Influenza A, and Influenza B from nasopharyngeal specimens and has been validated for use at [facility]. Negative results do not preclude COVID-19 infections or Influenza A/B infections, and should not be used as the sole basis for diagnosis, treatment, or other management decisions. If Influenza A/B and RSV PCR results are negative, testing for Parainfluenza virus, Adenovirus and Metapneumovirus is routinely performed for [facility] pediatric oncology and intensive care inpatients, and is available on other patients by placing an add-on request. Performed By: #### 9 5423-0 #### SILVERIO NI ([id number]) [facility] ([facility]) [address] [place] [address] Magnesiumon 02-07-2024 Magnesium [Mass/Vol] 1.51 mg/dL Low 1.60 - 2.40 mg/dL [facility] Magnesium [Mass/Vol] 1.51 mg/dL Low 1.60-2.40 [facility] Comment on above: Performed By: #### 1 9123-9 ###Mary NI ([id number]) [facility] ([facility]) [address] [place] [address] No Panel Informationon 02-06 Extra Tube Hold for add-ons. [facility] Comment on above: Auto resulted. [facility] Interpretation and review of laboratory results Abnormal [facility] RSV PCROrdered By: Lupis coleman on 02-07-2024 RSV RNA TICO+probe Ql (Resp) Not detected Not Detected [facility] [facility] RSV RNA TICO+probe Ql (Resp)O rdered By: Lupis Mari on 02-07-2024 Interpretation and review of laboratory results Normal [facility] This assay is an FDA-cleared, in vitro diagnostic nucleic acid amplification test for the detection of RSV from nasopharyngeal specimens, and has been validated for use at [facility]. Negative results do not preclude RSV infections, and should not be used as the sole basis for diagnosis, treatment, or other management decisions. If Influenza A/B and RSV PCR results are negative, testing for Parainfluenza virus, Adenovirus and Metapneumovirus is routinely performed for pediatric oncology and intensive care inpatients at [facility], and is available on other patients by placing an add-on request. [facility] Respiratory syncytial virus RNAon 02-07-2024 RSV RNA TICO+probe Ql (Resp) Not detected Normal Not Detected [facility] Comment on above: Order Comment: This assay is an FDA-cleared, in vitro diagnostic nucleic acid amplification test for the detection of RSV from nasopharyngeal specimens, and has been validated for use at [facility]. Negative results do not preclude RSV infections, and should not be used as the sole basis for diagnosis, treatment, or other management decisions. If Influenza A/B and RSV PCR results are negative, testing for Parainfluenza virus, Adenovirus and Metapneumovirus is routinely performed for pediatric oncology and intensive care inpatients at [facility], and is available on other patients by placing an add-on request. Performed By: #### 9 2131-2 #### SILVERIO NI ([id number]) [facility] ([facility]) [address] [place] [address] Tropinin I.cardiac panel Hig h sensitivity methodon 02-07-2024 Interpretation and review of laboratory results Normal [facility] Less than 99th percentile of normal range cutoff- Female and children under 18 years old <14 ng/L; Male <21 ng/L: Negative Repeat testing should be performed if clinically indicated. Female and children under 18 years old 14-50 ng/L; Male 21-50 ng/L: Consistent with possible cardiac damage and possible increased clinical risk. Serial measurements may help to assess extent of myocardial damage. >50 ng/L: Consistent with cardiac damage, increased clinical risk and myocardial infarction. Serial measurements may help assess extent of myocardial damage. NOTE: Children less than 1 year old may have higher baseline troponin levels and results should be interpreted in conjunction with the overall clinical context. NOTE: Troponin I testing is performed using a different testing methodology at [facility] than at [facility]. Direct result comparisons should only be made within the same method. [facility] Troponin I, High Sensitivity on 02-07-2024 Tropinin I.cardiac panel High sensitivity method 4 ng/L 0 - 20 ng/L [facility] Troponin I.cardiac panelon 1 04-09-2023 Tropinin I.cardiac panel High sensitivity method 4 ng/L Normal 0-20 [facility] Comment on above: Order Comment: Less than 99th percentile of normal range cutoff-Female and children under 18 years old <14 ng/L; Male <21 ng/L: NegativeRepeat testing should be performed if clinically indicated.Female and children under 18 years old 14-50 ng/L; Male 21-50 ng/L:Consistent with possible cardiac damage and possible increased clinicalrisk. Serial measurements may help to assess extent of myocardial damage.>50 ng/L: Consistent with cardiac damage, increased clinical risk andmyocardial infarction. Serial measurements may help assess extent ofmyocardial damage.NOTE: Children less than 1 year old may have higher baseline troponinlevels and results should be interpreted in conjunction with the overallclinical context.NOTE: Troponin I testing is performed using a differenttesting methodology at [facility] than at [facility]. Direct result comparisons should onlybe made within the same method. Performed By: #### 2 4323-8 #### SILVERIO NI ([id number]) [facility] ([facility]) [address] [place] [address] XR CHEST 1 VIEWon 02-07-2024 XR CHEST 1 VIEW STUDY: Chest Radiograph; 02/07/2024 2:19 PM INDICATION: Evaluate for pneumonia. COMPARISON: CT of the abdomen and pelvis 10/27/2023. ACCESSION NUMBER(S): [id number] ORDERING CLINICIAN: MAYCO WOODS TECHNIQUE: Frontal chest was obtained at 14:18 hours (two images). FINDINGS: CARDIOMEDIASTINAL SILHOUETTE: Cardiomediastinal silhouette is normal in size . LUNGS: There is a diffuse pleural thickening and calcification in the right hemithorax with volume loss. Right pleural calcification could also be seen in the right lower chest on previous CT of the abdomen and pelvis 10/27/2023. Findings could be related to previous infection or pleural hematoma or other remote insult. Parenchymal detail in the right lung is partly obscured by the superimposed calcification. No dense consolidation. Mild infiltrates could be present. The left lung appears fully aerated and clear. ABDOMEN: No remarkable upper abdominal findings. BONES: No acute osseous changes. IMPRESSION: 1.Normal heart size with extensive pleural and parenchymal calcifications in the right hemithorax and volume loss. Findings could be related to previous infection, pleural hematoma, or other remote insult. 2.No dense consolidation. Mild infiltrates could be present. The left lung appears clear. Signed by Norma Grimm DO [facility] XR Chest Single viewon 02-06 1.Normal heart size with extensive pleural and parenchymal calcifications in the right hemithorax and volume loss. Findings could be related to previous infection, pleural hematoma, or other remote insult. 2.No dense consolidation. Mild infiltrates could be present. The left lung appears clear. Signed by Norma Grimm DO TELERADIOLOGY STUDY: Chest Radiograph; 02/07/2024 2:19 PM INDICATION: Evaluate for pneumonia. COMPARISON: CT of the abdomen and pelvis 10/27/2023. ACCESSION NUMBER(S): [id number] ORDERING CLINICIAN: MAYCO WOODS TECHNIQUE: Frontal chest was obtained at 14:18 hours (two images). FINDINGS: CARDIOMEDIASTINAL SILHOUETTE: Cardiomediastinal silhouette is normal in size . LUNGS: There is a diffuse pleural thickening and calcification in the right hemithorax with volume loss. Right pleural calcification could also be seen in the right lower chest on previous CT of the abdomen and pelvis 10/27/2023. Findings could be related to previous infection or pleural hematoma or other remote insult. Parenchymal detail in the right lung is partly obscured by the superimposed calcification. No dense consolidation. Mild infiltrates could be present. The left lung appears fully aerated and clear. ABDOMEN: No remarkable upper abdominal findings. BONES: No acute osseous changes. TELERADIOLOGY Norma Grimm DO - 02/07/2024 STUDY: Chest Radiograph; 02/07/2024 2:19 PM INDICATION: Evaluate for pneumonia. COMPARISON: CT of the abdomen and pelvis 10/27/2023. ACCESSION NUMBER(S): [id number] ORDERING CLINICIAN: MAYCO WOODS TECHNIQUE: Frontal chest was obtained at 14:18 hours (two images). FINDINGS: CARDIOMEDIASTINAL SILHOUETTE: Cardiomediastinal silhouette is normal in size . LUNGS: There is a diffuse pleural thickening and calcification in the right hemithorax with volume loss. Right pleural calcification could also be seen in the right lower chest on previous CT of the abdomen and pelvis 10/27/2023. Findings could be related to previous infection or pleural hematoma or other remote insult. Parenchymal detail in the right lung is partly obscured by the superimposed calcification. No dense consolidation. Mild infiltrates could be present. The left lung appears fully aerated and clear. ABDOMEN: No remarkable upper abdominal findings. BONES: No acute osseous changes. IMPRESSION: 1.Normal heart size with extensive pleural and parenchymal calcifications in the right hemithorax and volume loss. Findings could be related to previous infection, pleural hematoma, or other remote insult. 2.No dense consolidation. Mild infiltrates could be present. The left lung appears clear. Signed by Norma Grimm DO [facility] Work Phone: Radiology Study observation (narrative) [facility] Work Phone: XR Chest Single viewOrdered By: Norma Grimm on 02-07-2024 [facility] Work Phone: XR ABDOMEN 1 VIEWon 11-13-19 XR ABDOMEN 1 VIEW Interpreted By: Martir Mata, STUDY: XR ABDOMEN 1 VIEW; 11/13/2023 4:40 pm INDICATION: Signs/Symptoms:right sided ureterlithiasis. ,N20.0 Calculus of kidney COMPARISON: None. ACCESSION NUMBER(S): [id number] ORDERING CLINICIAN: HERIBERTO DAVALOS FINDINGS: Abdomen, two views No definite radiopaque renal calculi seen. Nonobstructive bowel gas pattern. Limited evaluation of pneumoperitoneum on supine imaging, however no gross evidence of free air is noted. Visualized lungs are clear. Osseous structures demonstrate no acute bony changes. IMPRESSION: 1. No radiopaque renal calculi seen. MACRO: None Signed by: Martir Mata 11/14/2023 7:44 PM Dictation workstation: [id number] [facility] POCT glycosylated hemoglobin (Hb A1C) manually resultedOrdered By: Marina Busch on 10-28-2023 POC HEMOGLOBIN A1c 6.4 % 4.2 - 6.5 % [facility] CBC W Auto Differential pane l (Bld)on 10-27-2023 Basophils (Bld) [#/Vol] 0.06 10*3/uL [facility] Basophils/100 WBC (Bld) 0.4 % 0.0 - 2.0 % [facility] Eosinophils (Bld) [#/Vol] 0.01 10*3/uL [facility] Eosinophils/100 WBC (Bld) 0.1 % 0.0 - 6.0 % [facility] Erythrocyte distribution width (RBC) [Ratio] 13.0 % 11.5 - 14.5 % [facility] Hematocrit (Bld) [Volume fraction] 38.5 % Low 41.0 - 52.0 % [facility] Hemoglobin (Bld) [Mass/Vol] 12.9 g/dL Low 13.5 - 17.5 g/dL [facility] Immature granulocytes (Bld) [#/Vol] 0.06 10*3/uL [facility] Immature granulocytes/100 WBC (Bld) 0.4 % 0.0 - 0.9 % [facility] Comment on above: Immature Granulocyte Count (IG) includes promyelocytes, myelocytes and metamyelocytes but does not include bands. Percent differential counts (%) should be interpreted in the context of the absolute cell counts (cells/UL). Interpretation and review of laboratory results Abnormal [facility] Lymphocytes (Bld) [#/Vol] 1.18 10*3/uL Low [facility] Lymphocytes/100 WBC (Bld) 6.9 % 13.0 - 44.0 % [facility] MCH (RBC) [Entitic mass] 30.6 pg 26.0 - 34.0 pg [facility] MCHC (RBC) [Mass/Vol] 33.5 g/dL 32.0 - 36.0 g/dL [facility] MCV (RBC) [Entitic vol] 91 fL 80 - 100 fL [facility] Monocytes (Bld) [#/Vol] 0.57 10*3/uL [facility] Monocytes/100 WBC (Bld) 3.3 % 2.0 - 10.0 % [facility] Neutrophils (Bld) [#/Vol] 15.25 10*3/uL High [facility] Comment on above: Percent differential counts (%) should be interpreted in the context of the absolute cell counts (cells/uL). Neutrophils/100 WBC (Bld) 88.9 % 40.0 - 80.0 % [facility] Nucleated RBC/100 WBC (Bld) [Ratio] 0.0 % [facility] Platelets (Bld) [#/Vol] 294 10*3/uL [facility] RBC (Bld) [#/Vol] 4.21 10*6/uL Low [facility] WBC (Bld) [#/Vol] 17.1 10*3/uL High [facility] Basophils (Bld) [#/Vol] 0.06 x10*3/uL Normal 0.00-0.10 [facility] Comment on above: Performed By: #### 5 7021-8 #### SILVERIO NI ([id number]) [facility] ([facility]) [address] [place] [address] Basophils/100 WBC (Bld) 0.4 % Normal 0.0-2.0 [facility] Comment on above: Performed By: #### 5 7021-8 #### SILVERIO NI ([id number]) [facility] ([facility]) [address] [place] [address] Eosinophils (Bld) [#/Vol] 0.01 x10*3/uL Normal 0.00-0.70 [facility] Comment on above: Performed By: #### 5 7021-8 #### SILVERIO NI ([id number]) [facility] ([facility]) [address] [place] [address] Eosinophils/100 WBC (Bld) 0.1 % Normal 0.0-6.0 [facility] Comment on above: Performed By: #### 5 7021-8 #### SILVERIO NI ([id number]) [facility] ([facility]) [address] [place] [address] Erythrocyte distribution width (RBC) [Ratio] 13.0 % Normal 11.5-14.5 [facility] Comment on above: Performed By: #### 5 7021-8 #### SILVERIO NI ([id number]) [facility] ([facility]) [id number] [place] [address] Hematocrit (Bld) [Volume fraction] 38.5 % Low 41.0-52.0 [facility] Comment on above: Performed By: #### 5 7021-8 #### SILVERIO NI ([id number]) [facility] ([facility]) [id number] [place] [address] Hemoglobin (Bld) [Mass/Vol] 12.9 g/dL Low 13.5-17.5 [facility] Comment on above: Performed By: #### 5 7021-8 #### SILVERIO NI ([id number]) [facility] ([facility]) [address] [place] [address] Immature granulocytes (Bld) [#/Vol] 0.06 x10*3/uL Normal 0.00-0.70 [facility] Comment on above: Performed By: #### 5 7021-8 #### SILVERIO NI ([id number]) [facility] ([facility]) [address] [place] [address] Immature granulocytes/100 WBC (Bld) 0.4 % Normal 0.0-0.9 [facility] Comment on above: Result Comment: Leesa ture Granulocyte Count (IG) includes promyelocytes, myelocytes and metamyelocytes but does not include bands. Percent differential counts (%) should be interpreted in the context of the absolute cell counts (cells/UL). Performed By: #### 5 7021-8 #### SILVERIO NI ([id number]) [facility] ([facility]) [id number] [place] [address] Lymphocytes (Bld) [#/Vol] 1.18 x10*3/uL Low 1.20-4.80 [facility] Comment on above: Performed By: #### 5 7021-8 #### SILVERIO NI ([id number]) [facility] ([facility]) [id number] [place] [address] Lymphocytes/100 WBC (Bld) 6.9 % Normal 13.0-44.0 [facility] Comment on above: Performed By: #### 5 7021-8 #### SILVERIO NI ([id number]) [facility] ([facility]) [address] [place] [address] MCH (RBC) [Entitic mass] 30.6 pg Normal 26.0-34.0 [facility] Comment on above: Performed By: #### 5 7021-8 #### SILVERIO NI ([id number]) [facility] ([facility]) [address] [place] [address] MCHC (RBC) [Mass/Vol] 33.5 g/dL Normal 32.0-36.0 [facility] Comment on above: Performed By: #### 5 7021-8 #### SILVERIO NI ([id number]) [facility] ([facility]) [address] [place] [address] MCV (RBC) [Entitic vol] 91 fL Normal 80-100 [facility] Comment on above: Performed By: #### 5 7021-8 #### SILVERIO NI ([id number]) [facility] ([facility]) [address] [place] [address] Monocytes (Bld) [#/Vol] 0.57 x10*3/uL Normal 0.10-1.00 [facility] Comment on above: Performed By: #### 5 7021-8 #### SILVERIO NI ([id number]) [facility] ([facility]) [address] [place] [address] Monocytes/100 WBC (Bld) 3.3 % Normal 2.0-10.0 [facility] Comment on above: Performed By: #### 5 7021-8 #### SILVERIO NI ([id number]) [facility] ([facility]) [address] [place] [address] Neutrophils (Bld) [#/Vol] 15.25 x10*3/uL High 1.20-7.70 [facility] Comment on above: Result Comment: Perc ent differential counts (%) should be interpreted in the context of the absolute cell counts (cells/uL). Performed By: #### 5 7021-8 #### SILVERIO NI ([id number]) [facility] ([facility]) [address] [place] [address] Neutrophils/100 WBC (Bld) 88.9 % Normal 40.0-80.0 [facility] Comment on above: Performed By: #### 5 7021-8 #### SILVERIO NI ([id number]) [facility] ([facility]) [address] [place] [address] Nucleated RBC/100 WBC (Bld) [Ratio] 0.0 /100 WBCs Normal 0.0-0.0 [facility] Comment on above: Performed By: #### 5 7021-8 #### SILVERIO NI ([id number]) [facility] ([facility]) [address] [place] [address] Platelets (Bld) [#/Vol] 294 x10*3/uL Normal 150-450 [facility] Comment on above: Performed By: #### 5 7021-8 #### SILVERIO NI ([id number]) [facility] ([facility]) [address] [place] [address] RBC (Bld) [#/Vol] 4.21 x10*6/uL Low 4.50-5.90 [facility] Comment on above: Performed By: #### 5 7021-8 #### SILVERIO NI ([id number]) [facility] ([facility]) [address] [place] [address] WBC (Bld) [#/Vol] 17.1 x10*3/uL High 4.4-11.3 [facility] Comment on above: Performed By: #### 5 7021-8 #### SILVERIO NI ([id number]) [facility] ([facility]) [address] [place] [address] CT ABDOMEN PELVIS W IV CONTR Deysi 10-27-2023 CT ABDOMEN PELVIS W IV CONTRAST STUDY: CT Abdomen and Pelvis with IV Contrast; 10/27/2023 at 3:20 PM INDICATION: Right-sided abdominal tenderness, nausea and vomiting. COMPARISON: Correlation with XR left hip/pelvis 12/06/19. ACCESSION NUMBER(S): [id number] ORDERING CLINICIAN: THERON RIBERA TECHNIQUE: CT of the abdomen and pelvis was performed. Contiguous axial images were obtained at 3 mm slice thickness through the abdomen and pelvis. Coronal and sagittal reconstructions at 3 mm slice thickness were performed. Omnipaque-350 90 mL was administered intravenously. FINDINGS: LOWER CHEST: No cardiomegaly. No pericardial effusion. 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 ABDOMEN: LIVER: No hepatomegaly. Smooth surface contour. Mild fatty infiltration of the liver. BILE DUCTS: No intrahepatic or extrahepatic biliary ductal dilatation. GALLBLADDER: The gallbladder is present without gallstones. STOMACH: No abnormalities identified. PANCREAS: No masses or ductal dilatation. SPLEEN: No splenomegaly or focal splenic lesion. ADRENAL GLANDS: No thickening or nodules. KIDNEYS AND URETERS: Kidneys are normal in size and location. 6 mm calculus in the proximal right ureter causing mild hydroureteronephrosis. Single additional 8 mm inferior pole right renal calculus. Small right renal cysts noted. PELVIS: BLADDER: No abnormalities identified. REPRODUCTIVE ORGANS: Prostate gland is enlarged measuring 5.5 cm. BOWEL: No abnormalities identified. Appendix is normal. VESSELS: No abnormalities identified. Abdominal aorta is normal in caliber. PERITONEUM/RETROPERITO NEUM/LYMPH NODES: No free fluid. No pneumoperitoneum. No lymphadenopathy. ABDOMINAL WALL: No abnormalities identified. SOFT TISSUES: No abnormalities identified. BONES: No acute fracture or aggressive osseous lesion. Left total hip right arthroplasty. IMPRESSION: 1. 6 mm calculus in the proximal right ureter causing mild hydroureteronephrosis. Single additional 8 mm inferior pole right renal calculus. 2. Mild hepatic steatosis. 3. Enlarged prostate. 4. 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 Signed by Carlos Viera MD [facility] CT Abdomen and Pelvis W cont rast Jair 10-27-2023 1. 6 mm calculus in the proximal right ureter causing mild hydroureteronephrosis. Single additional 8 mm inferior pole right renal calculus. 2. Mild hepatic steatosis. 3. Enlarged prostate. 4. 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 Signed by Carlos Viera MD TELERADIOLOGY STUDY: CT Abdomen and Pelvis with IV Contrast; 10/27/2023 at 3:20 PM INDICATION: Right-sided abdominal tenderness, nausea and vomiting. COMPARISON: Correlation with XR left hip/pelvis 12/06/19. ACCESSION NUMBER(S): [id number] ORDERING CLINICIAN: THERON RIBERA TECHNIQUE: CT of the abdomen and pelvis was performed. Contiguous axial images were obtained at 3 mm slice thickness through the abdomen and pelvis. Coronal and sagittal reconstructions at 3 mm slice thickness were performed. Omnipaque-350 90 mL was administered intravenously. FINDINGS: LOWER CHEST: No cardiomegaly. No pericardial effusion. 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 ABDOMEN: LIVER: No hepatomegaly. Smooth surface contour. Mild fatty infiltration of the liver. BILE DUCTS: No intrahepatic or extrahepatic biliary ductal dilatation. GALLBLADDER: The gallbladder is present without gallstones. STOMACH: No abnormalities identified. PANCREAS: No masses or ductal dilatation. SPLEEN: No splenomegaly or focal splenic lesion. ADRENAL GLANDS: No thickening or nodules. KIDNEYS AND URETERS: Kidneys are normal in size and location. 6 mm calculus in the proximal right ureter causing mild hydroureteronephrosis. Single additional 8 mm inferior pole right renal calculus. Small right renal cysts noted. PELVIS: BLADDER: No abnormalities identified. REPRODUCTIVE ORGANS: Prostate gland is enlarged measuring 5.5 cm. BOWEL: No abnormalities identified. Appendix is normal. VESSELS: No abnormalities identified. Abdominal aorta is normal in caliber. PERITONEUM/RETROPERITO NEUM/LYMPH NODES: No free fluid. No pneumoperitoneum. No lymphadenopathy. ABDOMINAL WALL: No abnormalities identified. SOFT TISSUES: No abnormalities identified. BONES: No acute fracture or aggressive osseous lesion. Left total hip right arthroplasty. TELERADIOLOGY Carlos Viera MD - 10/27/2023 STUDY: CT Abdomen and Pelvis with IV Contrast; 10/27/2023 at 3:20 PM INDICATION: Right-sided abdominal tenderness, nausea and vomiting. COMPARISON: Correlation with XR left hip/pelvis 12/06/19. ACCESSION NUMBER(S): [id number] ORDERING CLINICIAN: THERON RIBERA TECHNIQUE: CT of the abdomen and pelvis was performed. Contiguous axial images were obtained at 3 mm slice thickness through the abdomen and pelvis. Coronal and sagittal reconstructions at 3 mm slice thickness were performed. Omnipaque-350 90 mL was administered intravenously. FINDINGS: LOWER CHEST: No cardiomegaly. No pericardial effusion. 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 ABDOMEN: LIVER: No hepatomegaly. Smooth surface contour. Mild fatty infiltration of the liver. BILE DUCTS: No intrahepatic or extrahepatic biliary ductal dilatation. GALLBLADDER: The gallbladder is present without gallstones. STOMACH: No abnormalities identified. PANCREAS: No masses or ductal dilatation. SPLEEN: No splenomegaly or focal splenic lesion. ADRENAL GLANDS: No thickening or nodules. KIDNEYS AND URETERS: Kidneys are normal in size and location. 6 mm calculus in the proximal right ureter causing mild hydroureteronephrosis. Single additional 8 mm inferior pole right renal calculus. Small right renal cysts noted. PELVIS: BLADDER: No abnormalities identified. REPRODUCTIVE ORGANS: Prostate gland is enlarged measuring 5.5 cm. BOWEL: No abnormalities identified. Appendix is normal. VESSELS: No abnormalities identified. Abdominal aorta is normal in caliber. PERITONEUM/RETROPERITO NEUM/LYMPH NODES: No free fluid. No pneumoperitoneum. No lymphadenopathy. ABDOMINAL WALL: No abnormalities identified. SOFT TISSUES: No abnormalities identified. BONES: No acute fracture or aggressive osseous lesion. Left total hip right arthroplasty. IMPRESSION: 1. 6 mm calculus in the proximal right ureter causing mild hydroureteronephrosis. Single additional 8 mm inferior pole right renal calculus. 2. Mild hepatic steatosis. 3. Enlarged prostate. 4. 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 Signed by Carlos Viera MD [facility] Work Phone: Radiology Study observation (narrative) [facility] Work Phone: CT Abdomen and Pelvis W cont rast IVOrdered By: Carlos Viera on 10-27-2023 [facility] Work Phone: Comprehensive metabolic 2000 panelon 10-27-2023 Albumin BCP dye [Mass/Vol] 4.0 g/dL 3.4 - 5.0 g/dL [facility] ALP [Catalytic activity/Vol] 71 U/L 33 - 136 U/L [facility] ALT With P-5'-P [Catalytic activity/Vol] 13 U/L 10 - 52 U/L [facility] Comment on above: Patients treated wit h Sulfasalazine may generate falsely decreased results for ALT. Anion gap [Moles/Vol] 16 mmol/L 10 - 20 mmol/L [facility] AST With P-5'-P [Catalytic activity/Vol] 15 U/L 9 - 39 U/L [facility] Bilirubin [Mass/Vol] 0.5 mg/dL 0.0 - 1 .2 mg/dL [facility] Calcium [Mass/Vol] 8.9 mg/dL 8.6 - 10. 3 mg/dL [facility] Chloride [Moles/Vol] 98 mmol/L 98 - 10 7 mmol/L [facility] CO2 [Moles/Vol] 23 mmol/L 21 - 32 mmol/L [facility] Creatinine [Mass/Vol] 1.69 mg/dL High 0.50 - 1.30 mg/dL [facility] GFR/1.73 sq M.predicted among non-blacks MDRD (S/P/Bld) [Vol rate/Area] 46 mL/min/{1.73_m2} Low - PINF [facility] Comment on above: Calculations of fara mated GFR are performed using the 2020 CKD-EPI Study Refit equation without the race variable for the IDMS-Traceable creatinine methods. https://jasn.asnjournals.org/content/early/ASN.0061956 988 Glucose [Mass/Vol] 241 mg/dL High 74 - 99 mg/dL [facility] Interpretation and review of laboratory results Abnormal [facility] Potassium [Moles/Vol] 5.1 mmol/L 3.5 - 5.3 mmol/L [facility] Protein [Mass/Vol] 6.9 g/dL 6.4 - 8.2 g/dL [facility] Sodium [Moles/Vol] 132 mmol/L Low 136 - 145 mmol/L [facility] Urea nitrogen [Mass/Vol] 30 mg/dL High 6 - 23 mg/dL [facility] Albumin BCP dye [Mass/Vol] 4.0 g/dL Normal 3.4-5.0 [facility] Comment on above: Performed By: #### 2 4323-8 #### SILVERIO NI ([id number]) [facility] ([facility]) [address] [place] [address] ALP [Catalytic activity/Vol] 71 U/L Normal 33-136 [facility] Comment on above: Performed By: #### 2 4323-8 #### SILVERIO NI ([id number]) [facility] ([facility]) [address] [place] [address] ALT With P-5'-P [Catalytic activity/Vol] 13 U/L Normal 10-52 [facility] Comment on above: Result Comment: Svetlana ents treated with Sulfasalazine may generate falsely decreased results for ALT. Performed By: #### 2 4323-8 #### SILVERIO NI ([id number]) [facility] ([facility]) [address] [facility] [place] [address] Anion gap [Moles/Vol] 16 mmol/L Normal 10-20 [facility] Comment on above: Performed By: #### 2 4323-8 #### SILVERIO NI ([id number]) [facility] ([facility]) [address] [facility] [place] [address] AST With P-5'-P [Catalytic activity/Vol] 15 U/L Normal 9-39 [facility] Comment on above: Performed By: #### 2 4323-8 #### SILVERIO NI ([id number]) [facility] ([facility]) [address] [place] [address] Bilirubin [Mass/Vol] 0.5 mg/dL Normal 0.0-1.2 [facility] Comment on above: Performed By: #### 2 4323-8 #### SILVERIO NI ([id number]) [facility] ([facility]) [address] [place] [address] Calcium [Mass/Vol] 8.9 mg/dL Normal 8.6-10.3 [facility] Comment on above: Performed By: #### 2 4323-8 #### SILVERIO NI ([id number]) [facility] ([facility]) [address] [place] [address] Chloride [Moles/Vol] 98 mmol/L Normal 98-107 [facility] Comment on above: Performed By: #### 2 4323-8 #### SILVERIO NI ([id number]) [facility] ([facility]) [address] [facility] [place] [address] CO2 [Moles/Vol] 23 mmol/L Normal 21-32 [facility] Comment on above: Performed By: #### 2 4323-8 #### SILVERIO NI ([id number]) [facility] ([facility]) [address] [facility] [place] [address] Creatinine [Mass/Vol] 1.69 mg/dL High 0.50-1.30 [facility] Comment on above: Performed By: #### 2 4323-8 #### SILVERIO NI ([id number]) [facility] ([facility]) [address] [place] [address] Glomerular filtration rate/1.73 sq M.predicted 46 mL/min/1.73m*2 Low >60 [facility] Comment on above: Result Comment: Calc ulations of estimated GFR are performed using the 2020 CKD-EPI Study Refit equation without the race variable for the IDMS-Traceable creatinine methods. https://jasn.asnjournals.org/content/early/ASN.1224483 988 Performed By: #### 2 4323-8 #### SILVERIO NI ([id number]) [facility] ([facility]) [address] [place] [address] Glucose [Mass/Vol] 241 mg/dL High 74-99 [facility] Comment on above: Performed By: #### 2 4323-8 #### SILVERIO NI ([id number]) [facility] ([facility]) [address] [place] [address] Potassium [Moles/Vol] 5.1 mmol/L Normal 3.5-5.3 [facility] Comment on above: Performed By: #### 2 4323-8 #### SILVERIO NI ([id number]) [facility] ([facility]) [address] [place] [address] Protein [Mass/Vol] 6.9 g/dL Normal 6.4-8.2 [facility] Comment on above: Performed By: #### 2 4323-8 #### SILVERIO NI ([id number]) [facility] ([facility]) [address] [place] [address] Sodium [Moles/Vol] 132 mmol/L Low 136-145 [facility] Comment on above: Performed By: #### 2 4323-8 #### SILVERIO NI ([id number]) [facility] ([facility]) [address] [place] [address] Urea nitrogen [Mass/Vol] 30 mg/dL High 6-23 [facility] Comment on above: Performed By: #### 2 4323-8 #### SILVERIO NI ([id number]) [facility] ([facility]) [address] [place] [address] No Panel Informationon 10-26 Interpretation and review of laboratory results Abnormal [facility] Urinalysis complete panel (U )on 10-27-2023 Appearance (U) Clear Clear [facility] Bilirubin (U) [Mass/Vol] Negative NEGATIVE [facility] Color (U) Light-Yellow Light-Yellow, Yellow, Dark-Yellow [facility] Glucose Auto test strip (U) [Mass/Vol] 300 (3+) Abnormal Normal mg/dL [facility] Ketones (U) [Mass/Vol] 10 (1+) Abnormal NEGATIVE mg/dL [facility] Leukocyte esterase Auto test strip Ql (U) Negative NEGATIVE [facility] Nitrite Auto test strip Ql (U) Negative NEGATIVE [facility] pH (U) 5.0 [pH] 5.0, 5.5, 6.0, 6.5, 7.0, 7.5, 8.0 [facility] Protein (U) [Mass/Vol] Negative NEGATIVE, 10 (TRACE), 20 (TRACE) mg/dL [facility] RBC (U) [#/Vol] 1.0 (3+) Abnormal NEGATIVE [facility] Specific gravity (U) [Rel density] 1.013 1.005 - 1.035 [facility] Urobilinogen (U) [Mass/Vol] Normal Normal mg/dL [facility] Appearance (U) Clear Normal Clear [facility] Comment on above: Performed By: #### 2 4356-8 #### SILVERIO NI ([id number]) [facility] ([facility]) [address] [place] [address] Bilirubin (U) [Mass/Vol] Negative Normal NEGATIVE [facility] Comment on above: Performed By: #### 2 4356-8 #### SILVERIO NI ([id number]) [facility] ([facility]) [address] [place] [address] Color (U) Light-Yellow Normal Light-Yellow, Yellow, Dark-Yellow [facility] Comment on above: Performed By: #### 2 4356-8 #### SILVERIO NI ([id number]) [facility] ([facility]) [address] [place] [address] Glucose Auto test strip (U) [Mass/Vol] 300 (3+) Abnormal Normal [facility] Comment on above: Performed By: #### 2 4356-8 #### SILVERIO NI ([id number]) [facility] ([facility]) [address] [place] [address] Ketones (U) [Mass/Vol] 10 (1+) Abnormal NEGATIVE [facility] Comment on above: Performed By: #### 2 4356-8 #### SILVERIO NI ([id number]) [facility] ([facility]) [address] [place] [address] Leukocyte esterase Auto test strip Ql (U) Negative Normal NEGATIVE [facility] Comment on above: Performed By: #### 2 4356-8 #### SILVERIO NI ([id number]) [facility] ([facility]) [address] [place] [address] Nitrite Auto test strip Ql (U) Negative Normal NEGATIVE [facility] Comment on above: Performed By: #### 2 4356-8 #### SILVERIO NI ([id number]) [facility] ([facility]) [address] [place] [address] pH (U) 5.0 [pH] Normal 5.0, 5.5, 6.0, 6.5, 7.0, 7.5, 8.0 [facility] Comment on above: Performed By: #### 2 4356-8 #### SILVERIO NI ([id number]) [facility] ([facility]) [address] [place] [address] Protein (U) [Mass/Vol] Negative Normal NEGATIVE, 10 (TRACE), 20 (TRACE) [facility] Comment on above: Performed By: #### 2 4356-8 #### SILVERIO NI ([id number]) [facility] ([facility]) [address] [place] [address] RBC (U) [#/Vol] 1.0 (3+) Abnormal NEGATIVE [facility] Comment on above: Performed By: #### 2 4356-8 #### SILVERIO NI ([id number]) [facility] ([facility]) [address] [place] [address] Specific gravity (U) [Rel density] 1.013 Normal 1.005-1.035 [facility] Comment on above: Performed By: #### 2 4356-8 #### SILVERIO NI ([id number]) [facility] ([facility]) [address] [place] [address] Urobilinogen (U) [Mass/Vol] Normal Normal Normal [facility] Comment on above: Performed By: #### 2 4356-8 #### SILEVRIO NI ([id number]) [facility] ([facility]) [address] [place] [address] Urinalysis microscopic panel Auto Ql (U)on 10-27-2023 RBC Auto (Urine sed) [#/Area] >20 Abnormal NONE, 1-2, 3-5 /HPF [facility] WBC Auto (Urine sed) [#/Area] NONE 1-5, NONE /HPF [facility] RBC Auto (Urine sed) [#/Area] >20 Abnormal NONE, 1-2, 3-5 [facility] Comment on above: Performed By: #### 5 3315-8 #### SILVERIO NI ([id number]) [facility] ([facility]) [address] [place] [address] [place] [address] WBC Auto (Urine sed) [#/Area] NONE Normal 1-5, NONE [facility] Comment on above: Performed By: #### 5 3315-8 #### SILVERIO NI ([id number]) [facility] ([facility]) [address] [place] [address] [place] Thyroid glandon 4 1. Right thyroid lob e 1.2 cm hypoechoic solid TI-RADS 5 nodule which is slightly larger from prior and appears to be slightly taller than wide. Please note that these statements are based on the recommendations of the [employer] TI-RADS grading system. ACR TI-RADS recommendations (apply to nodules which have NOT been biopsied): TR5 (?7 points) highly suspicious - FNA if ? 1cm, follow-up if 0.5 -0.9 cm every year for 5 years. Aggregate cancer risk 35%. TR4 (4-6 points) moderately suspicious - FNA if ? 1.5cm, follow-up if 1 -1.4 cm in 1, 2, 3 and 5 years. Aggregate cancer risk 9.1% TR3 (3 points) mildly suspicious - FNA if ? 2.5cm, follow-up if 1.5 -2.4 cm in 1, 3 and 5 years. Aggregate cancer risk 4.8% TR2 (2 points) not suspicious. Aggregate cancer risk 1.5% TR1 (0 points) benign - No FNA or follow-up. Aggregate cancer risk 0.3% MACRO: None. Signed by: Heriberto Toscano 08/04/2023 2:34 PM Dictation workstation: [id number] [facility] MMODAL Interpreted By: Heriberto Toscano, STUDY: US THYROID; 08/02/2023 2:15 pm INDICATION: Signs/Symptoms:thyroid nodules. COMPARISON: 06/1916. ACCESSION NUMBER(S): [id number] ORDERING CLINICIAN: HERIBERTO DAVALOS TECHNIQUE: Multiple ultrasonographic images of the thyroid gland and surrounding tissues were obtained. FINDINGS: PARENCHYMA: Mildly heterogenous background echogenicity. SIZE: RIGHT LOBE: 4.8 x 1.8 x 1.9 cm LEFT LOBE: 3.8 x 1.7 x 1.4 cm ISTHMUS: 2 mm in AP diameter NODULES: (Please note, assessment and description of nodules is per TI-RADS criteria. Up to 4 total nodules described, which includes largest and/or most clinically significant based on morphology.) It is noted that some spongiform and/or cystic nodules may not be specifically described and are TR category 1 (benign). NODULE #: 1. Location: Right thyroid lobe mid aspect Size: 0.9 x 0.7 x 1.2 cm compared to 0.9 x 0.9 x 0.7 cm on prior Composition: Solid or almost completely solid (2) Echogenicity: Hypoechoic (2) Shape: [id number]-[id number] (3) Margin: Smooth (0) Echogenic Foci: None or Large comet-tail artifacts (0) If present previously: Significant change in size (>/= 20% diameter increase in at least two dimensions and minimal increase of 2mm?): Slightly larger from prior. Change in features or ACR TI-RADS category: Nodule appears to be slightly taller than wide on the current exam. The total score of this nodule is 7 points, corresponding to a TI-RADS category 5; (>7 points) Highly suspicious. Left thyroid lobe 0.9 cm and 1 cm TI-RADS 1 spongiform nodules are seen as well as a left thyroid lobe inferior aspect 0.7 cm solid/cystic TI-RADS 2 nodule. CERVICAL LYMPH NODES: A left cervical subcentimeter level 1 B lymph node maintains a more benign sonographic morphology with hyperechoic hilum and non thickened hypoechoic cortex. MMODAL Heriberto Toscano MD - 08/04/2023 Interpreted By: Heriberto Toscano, STUDY: US THYROID; 08/02/2023 2:15 pm INDICATION: Signs/Symptoms:thyroid nodules. COMPARISON: 06/1916. ACCESSION NUMBER(S): [id number] ORDERING CLINICIAN: HERIBERTO DAVALOS TECHNIQUE: Multiple ultrasonographic images of the thyroid gland and surrounding tissues were obtained. FINDINGS: PARENCHYMA: Mildly heterogenous background echogenicity. SIZE: RIGHT LOBE: 4.8 x 1.8 x 1.9 cm LEFT LOBE: 3.8 x 1.7 x 1.4 cm ISTHMUS: 2 mm in AP diameter NODULES: (Please note, assessment and description of nodules is per TI-RADS criteria. Up to 4 total nodules described, which includes largest and/or most clinically significant based on morphology.) It is noted that some spongiform and/or cystic nodules may not be specifically described and are TR category 1 (benign). NODULE #: 1. Location: Right thyroid lobe mid aspect Size: 0.9 x 0.7 x 1.2 cm compared to 0.9 x 0.9 x 0.7 cm on prior Composition: Solid or almost completely solid (2) Echogenicity: Hypoechoic (2) Shape: [id number]-fiva-skjr (3) Margin: Smooth (0) Echogenic Foci: None or Large comet-tail artifacts (0) If present previously: Significant change in size (>/= 20% diameter increase in at least two dimensions and minimal increase of 2mm?): Slightly larger from prior. Change in features or ACR TI-RADS category: Nodule appears to be slightly taller than wide on the current exam. The total score of this nodule is 7 points, corresponding to a TI-RADS category 5; (>7 points) Highly suspicious. Left thyroid lobe 0.9 cm and 1 cm TI-RADS 1 spongiform nodules are seen as well as a left thyroid lobe inferior aspect 0.7 cm solid/cystic TI-RADS 2 nodule. CERVICAL LYMPH NODES: A left cervical subcentimeter level 1 B lymph node maintains a more benign sonographic morphology with hyperechoic hilum and non thickened hypoechoic cortex. IMPRESSION: 1. Right thyroid lobe 1.2 cm hypoechoic solid TI-RADS 5 nodule which is slightly larger from prior and appears to be slightly taller than wide. Please note that these statements are based on the recommendations of the [employer] TI-RADS grading system. ACR TI-RADS recommendations (apply to nodules which have NOT been biopsied): TR5 (?7 points) highly suspicious - FNA if ? 1cm, follow-up if 0.5 -0.9 cm every year for 5 years. Aggregate cancer risk 35%. TR4 (4-6 points) moderately suspicious - FNA if ? 1.5cm, follow-up if 1 -1.4 cm in 1, 2, 3 and 5 years. Aggregate cancer risk 9.1% TR3 (3 points) mildly suspicious - FNA if ? 2.5cm, follow-up if 1.5 -2.4 cm in 1, 3 and 5 years. Aggregate cancer risk 4.8% TR2 (2 points) not suspicious. Aggregate cancer risk 1.5% TR1 (0 points) benign - No FNA or follow-up. Aggregate cancer risk 0.3% MACRO: None. Signed by: Heriberto Toscano 08/04/2023 2:34 PM Dictation workstation: [id number] [facility] Work Phone: US Thyroid glandOrdered By: Heriberto Toscano on 08-04-2023 [facility] Work Phone: US Thyroid glandon Radiology Study observation (narrative) [facility] Work Phone: POCT glycosylated hemoglobin (Hb A1C) manually resultedon 07-23-2023 Interpretation and review of laboratory results Abnormal [facility] Work Phone: POC HEMOGLOBIN A1c 6.9 % Abnormal 4.2 - 6.5 % [facility] Work Phone: [facility] Work Phone: Albumin , Urine Randomon Albumin/Creatinine DL <= 20 mg/L (U) [Mass ratio] 10.9 mg/g NINF [facility] Albumin/Creatinineon 024 Albumin/Creatinine DL <= 20 mg/L (U) [Mass ratio] 10.9 ug/mg Creat Normal <30.0 [facility] Comment on above: Performed By: #### 1 4959-1 #### SILVERIO NI ([id number]) [facility] ([facility]) [address] [place] [id number] Albumin/Creatinine DL <= 20 mg/L (U) [Mass ratio]on 03-06-2023 Albumin DL <= 20 mg/L (U) [Mass/Vol] 21.7 mg/L Not established [facility] Creatinine (U) [Mass/Vol] 198.3 mg/dL 20.0 - 370.0 mg/dL [facility] Albumin DL <= 20 mg/L (U) [Mass/Vol] 21.7 mg/L Normal Not established [facility] Comment on above: Performed By: #### 1 4959-1 #### SILVERIO NI ([id number]) [facility] ([facility]) [address] [place] [address] Creatinine (U) [Mass/Vol] 198.3 mg/dL Normal 20.0-370.0 [facility] Comment on above: Performed By: #### 1 4959-1 #### SILVERIO NI ([id number]) [facility] ([facility]) [address] [place] [address] CBC W Auto Differential pane l (Bld)on 03-06-2023 Basophils (Bld) [#/Vol] 0.09 10*3/uL [facility] Basophils/100 WBC (Bld) 0.5 % 0.0 - 2.0 % [facility] Eosinophils (Bld) [#/Vol] 0.41 10*3/uL [facility] Eosinophils/100 WBC (Bld) 2.5 % 0.0 - 6.0 % [facility] Erythrocyte distribution width (RBC) [Ratio] 12.9 % 11.5 - 14.5 % [facility] Hematocrit (Bld) [Volume fraction] 38.5 % Low 41.0 - 52.0 % [facility] Hemoglobin (Bld) [Mass/Vol] 12.4 g/dL Low 13.5 - 17.5 g/dL [facility] Immature granulocytes (Bld) [#/Vol] 0.06 10*3/uL [facility] Immature granulocytes/100 WBC (Bld) 0.4 % 0.0 - 0.9 % [facility] Comment on above: Immature Granulocyte Count (IG) includes promyelocytes, myelocytes and metamyelocytes but does not include bands. Percent differential counts (%) should be interpreted in the context of the absolute cell counts (cells/UL). Interpretation and review of laboratory results Abnormal [facility] Lymphocytes (Bld) [#/Vol] 4.88 10*3/uL High [facility] Lymphocytes/100 WBC (Bld) 29.7 % 13.0 - 44.0 % [facility] MCH (RBC) [Entitic mass] 30.2 pg 26.0 - 34.0 pg [facility] MCHC (RBC) [Mass/Vol] 32.2 g/dL 32.0 - 36.0 g/dL [facility] MCV (RBC) [Entitic vol] 94 fL 80 - 100 fL [facility] Monocytes (Bld) [#/Vol] 1.33 10*3/uL High [facility] Monocytes/100 WBC (Bld) 8.1 % 2.0 - 10.0 % [facility] Neutrophils (Bld) [#/Vol] 9.64 10*3/uL [facility] Comment on above: Percent differential counts (%) should be interpreted in the context of the absolute cell counts (cells/uL). Neutrophils/100 WBC (Bld) 58.8 % 40.0 - 80.0 % [facility] Nucleated RBC/100 WBC (Bld) [Ratio] 0.0 % [facility] Platelets (Bld) [#/Vol] 359 10*3/uL [facility] RBC (Bld) [#/Vol] 4.11 10*6/uL Low [facility] WBC (Bld) [#/Vol] 16.4 10*3/uL [facility] Basophils (Bld) [#/Vol] 0.09 x10*3/uL Normal 0.00-0.10 [facility] Comment on above: Performed By: #### 5 7021-8 #### SILVERIO NI ([id number]) [facility] ([facility]) [address] [place] [address] Basophils/100 WBC (Bld) 0.5 % Normal 0.0-2.0 [facility] Comment on above: Performed By: #### 5 7021-8 #### SILVERIO NI ([id number]) [facility] ([facility]) [address] [place] [address] Eosinophils (Bld) [#/Vol] 0.41 x10*3/uL Normal 0.00-0.70 [facility] Comment on above: Performed By: #### 5 7021-8 #### SILVERIO NI ([id number]) [facility] ([facility]) [address] [place] [address] Eosinophils/100 WBC (Bld) 2.5 % Normal 0.0-6.0 [facility] Comment on above: Performed By: #### 5 7021-8 #### SILVERIO NI ([id number]) [facility] ([facility]) [address] [place] [address] Erythrocyte distribution width (RBC) [Ratio] 12.9 % Normal 11.5-14.5 [facility] Comment on above: Performed By: #### 5 7021-8 #### SILVERIO NI ([id number]) [facility] ([facility]) [address] [place] [address] Hematocrit (Bld) [Volume fraction] 38.5 % Low 41.0-52.0 [facility] Comment on above: Performed By: #### 5 7021-8 #### SILVERIO NI ([id number]) [facility] ([facility]) [address] [place] [address] Hemoglobin (Bld) [Mass/Vol] 12.4 g/dL Low 13.5-17.5 [facility] Comment on above: Performed By: #### 5 7021-8 #### SILVERIO NI ([id number]) [facility] ([facility]) [address] [place] [address] Immature granulocytes (Bld) [#/Vol] 0.06 x10*3/uL Normal 0.00-0.70 [facility] Comment on above: Performed By: #### 5 7021-8 #### SILVERIO NI ([id number]) [facility] ([facility]) [address] [place] [address] Immature granulocytes/100 WBC (Bld) 0.4 % Normal 0.0-0.9 [facility] Comment on above: Result Comment: Leesa ture Granulocyte Count (IG) includes promyelocytes, myelocytes and metamyelocytes but does not include bands. Percent differential counts (%) should be interpreted in the context of the absolute cell counts (cells/UL). Performed By: #### 5 7021-8 #### SILVERIO NI ([id number]) [facility] ([facility]) [address] [place] [address] Lymphocytes (Bld) [#/Vol] 4.88 x10*3/uL High 1.20-4.80 [facility] Comment on above: Performed By: #### 5 7021-8 #### SILVERIO NI ([id number]) [facility] ([facility]) [address] [place] [address] Lymphocytes/100 WBC (Bld) 29.7 % Normal 13.0-44.0 [facility] [facility] Comment on above: Performed By: #### 5 7021-8 #### SILVERIO NI ([id number]) [facility] ([facility]) [address] [place] [address] MCH (RBC) [Entitic mass] 30.2 pg Normal 26.0-34.0 [facility] Comment on above: Performed By: #### 5 7021-8 #### SILVERIO NI ([id number]) [facility] ([facility]) [address] [place] [address] MCHC (RBC) [Mass/Vol] 32.2 g/dL Normal 32.0-36.0 [facility] Comment on above: Performed By: #### 5 7021-8 #### SILVERIO NI ([id number]) [facility] ([facility]) [address] [place] [address] MCV (RBC) [Entitic vol] 94 fL Normal 80-100 [facility] Comment on above: Performed By: #### 5 7021-8 #### SILVERIO NI ([id number]) [facility] ([facility]) [address] [place] [address] Monocytes (Bld) [#/Vol] 1.33 x10*3/uL High 0.10-1.00 [facility] Comment on above: Performed By: #### 5 7021-8 #### SILVERIO NI ([id number]) [facility] ([facility]) [address] [place] [address] Monocytes/100 WBC (Bld) 8.1 % Normal 2.0-10.0 [facility] Comment on above: Performed By: #### 5 7021-8 #### SILVERIO NI ([id number]) [facility] ([facility]) [address] [place] [address] Neutrophils (Bld) [#/Vol] 9.64 x10*3/uL High 1.20-7.70 [facility] Comment on above: Result Comment: Perc ent differential counts (%) should be interpreted in the context of the absolute cell counts (cells/uL). Performed By: #### 5 7021-8 #### SILVERIO NI ([id number]) [facility] ([facility]) [address] [place] [address] Neutrophils/100 WBC (Bld) 58.8 % Normal 40.0-80.0 [facility] Comment on above: Performed By: #### 5 7021-8 #### SILVERIO NI ([id number]) [facility] ([facility]) [address] [place] [address] Nucleated RBC/100 WBC (Bld) [Ratio] 0.0 /100 WBCs Normal 0.0-0.0 [facility] Comment on above: Performed By: #### 5 7021-8 #### SILVERIO NI ([id number]) [facility] ([facility]) [address] [place] [address] Platelets (Bld) [#/Vol] 359 x10*3/uL Normal 150-450 [facility] Comment on above: Performed By: #### 5 7021-8 #### SILVERIO NI ([id number]) [facility] ([facility]) [address] [place] [address] RBC (Bld) [#/Vol] 4.11 x10*6/uL Low 4.50-5.90 [facility] Comment on above: Performed By: #### 5 7021-8 #### SILVERIO NI ([id number]) [facility] ([facility]) [address] [place] [address] WBC (Bld) [#/Vol] 16.4 x10*3/uL High 4.4-11.3 [facility] Comment on above: Performed By: #### 5 7021-8 #### SILVERIO NI ([id number]) [facility] ([facility]) [address] [place] [address] Cobalamin (Vitamin B12) [Mas s/Vol]on 03-06-2023 Interpretation and review of laboratory results Abnormal [facility] Cobalaminson 03-06-2023 Cobalamin (Vitamin B12) [Mass/Vol] 975 pg/mL High 211-911 [facility] Comment on above: Performed By: #### 2 132-9 #### KAYLEY Gamez ([id number]) [facility] ([facility]) [address] [place], [place] [id number] Comprehensive metabolic 2000 panelon 03-06-2023 Albumin BCP dye [Mass/Vol] 4.3 g/dL 3.4 - 5.0 g/dL [facility] ALP [Catalytic activity/Vol] 69 U/L 33 - 136 U/L [facility] ALT With P-5'-P [Catalytic activity/Vol] 33 U/L 10 - 52 U/L [facility] Comment on above: Patients treated wit h Sulfasalazine may generate falsely decreased results for ALT. Anion gap [Moles/Vol] 12 mmol/L 10 - 20 mmol/L [facility] AST With P-5'-P [Catalytic activity/Vol] 27 U/L 9 - 39 U/L [facility] Bilirubin [Mass/Vol] 0.4 mg/dL 0.0 - 1 .2 mg/dL [facility] Calcium [Mass/Vol] 10.0 mg/dL 8.6 - 10. 3 mg/dL [facility] Chloride [Moles/Vol] 100 mmol/L 98 - 10 7 mmol/L [facility] CO2 [Moles/Vol] 28 mmol/L 21 - 32 mmol/L [facility] Creatinine [Mass/Vol] 1.75 mg/dL High 0.50 - 1.30 mg/dL [facility] GFR/1.73 sq M.predicted among non-blacks MDRD (S/P/Bld) [Vol rate/Area] 44 mL/min/{1.73_m2} Low - PINF [facility] Comment on above: Calculations of fara mated GFR are performed using the 2020 CKD-EPI Study Refit equation without the race variable for the IDMS-Traceable creatinine methods. https://jasn.asnjournals.org/content//ASN.3692746 988 Glucose [Mass/Vol] 138 mg/dL High 74 - 99 mg/dL [facility] Potassium [Moles/Vol] 4.4 mmol/L 3.5 - 5.3 mmol/L [facility] Protein [Mass/Vol] 7.4 g/dL 6.4 - 8.2 g/dL [facility] Sodium [Moles/Vol] 136 mmol/L 136 - 145 mmol/L [facility] Urea nitrogen [Mass/Vol] 35 mg/dL High 6 - 23 mg/dL [facility] Albumin BCP dye [Mass/Vol] 4.3 g/dL Normal 3.4-5.0 [facility] Comment on above: Performed By: #### 2 4323-8 #### SILVERIO NI ([id number]) [facility] ([facility]) [address] [place] [address] ALP [Catalytic activity/Vol] 69 U/L Normal 33-136 [facility] Comment on above: Performed By: #### 2 4323-8 #### SILVERIO NI ([id number]) [facility] ([facility]) [address] [place] [address] ALT With P-5'-P [Catalytic activity/Vol] 33 U/L Normal 10-52 [facility] Comment on above: Result Comment: Svetlana ents treated with Sulfasalazine may generate falsely decreased results for ALT. Performed By: #### 2 4323-8 #### SILVERIO NI ([id number]) [facility] ([facility]) [address] [place] [address] Anion gap [Moles/Vol] 12 mmol/L Normal 10-20 [facility] Comment on above: Performed By: #### 2 4323-8 #### SILVERIO NI ([id number]) [facility] ([facility]) [address] [place] [address] AST With P-5'-P [Catalytic activity/Vol] 27 U/L Normal 9-39 [facility] Comment on above: Performed By: #### 2 4323-8 #### SILVERIO NI ([id number]) [facility] ([facility]) [address] [place] [address] Bilirubin [Mass/Vol] 0.4 mg/dL Normal 0.0-1.2 [facility] Comment on above: Performed By: #### 2 4323-8 #### SILVERIO NI ([id number]) [facility] ([facility]) [address] [place] [address] Calcium [Mass/Vol] 10.0 mg/dL Normal 8.6-10.3 [facility] Comment on above: Performed By: #### 2 4323-8 #### SILVERIO NI ([id number]) [facility] ([facility]) [address] [place] [address] Chloride [Moles/Vol] 100 mmol/L Normal 98-107 [facility] Comment on above: Performed By: #### 2 4323-8 #### SILVERIO NI ([id number]) [facility] ([facility]) [address] [place] [address] CO2 [Moles/Vol] 28 mmol/L Normal 21-32 [facility] Comment on above: Performed By: #### 2 4323-8 #### SILVERIO NI ([id number]) [facility] ([facility]) [address] [place] [address] Creatinine [Mass/Vol] 1.75 mg/dL High 0.50-1.30 [facility] Comment on above: Performed By: #### 2 4323-8 #### SILVERIO NI ([id number]) [facility] ([facility]) [address] [place] [address] Glomerular filtration rate/1.73 sq M.predicted 44 mL/min/1.73m*2 Low >60 [facility] Comment on above: Result Comment: Calc ulations of estimated GFR are performed using the 2020 CKD-EPI Study Refit equation without the race variable for the IDMS-Traceable creatinine methods. https://jasn.asnjournals.org/content/early//ASN.3758845 988 Performed By: #### 2 4323-8 #### SILVERIO NI ([id number]) [facility] ([facility]) [address] [place] [address] Glucose [Mass/Vol] 138 mg/dL High 74-99 [facility] Comment on above: Performed By: #### 2 4323-8 #### SILVERIO NI ([id number]) [facility] ([facility]) [address] [place] [address] Potassium [Moles/Vol] 4.4 mmol/L Normal 3.5-5.3 [facility] Comment on above: Performed By: #### 2 4323-8 #### SILVERIO NI ([id number]) [facility] ([facility]) [address] [place] [address] Protein [Mass/Vol] 7.4 g/dL Normal 6.4-8.2 [facility] Comment on above: Performed By: #### 2 4323-8 #### SILVERIO NI ([id number]) [facility] ([facility]) [address] [place] [address] Sodium [Moles/Vol] 136 mmol/L Normal 136-145 [facility] Comment on above: Performed By: #### 2 4323-8 #### SILVERIO NI ([id number]) [facility] ([facility]) [address] [place] [address] Urea nitrogen [Mass/Vol] 35 mg/dL High 6-23 [facility] Comment on above: Performed By: #### 2 4323-8 #### SILVERIO NI ([id number]) [facility] ([facility]) [address] [place] [address] HbA1c (Bld) [Mass fraction]o n 03-06-2023 Average glucose Estimated from glycated hemoglobin (Bld) [Mass/Vol] 217 mg/dL Not Established [facility] Interpretation and review of laboratory results Abnormal [facility] Diagnosis of Diabetes-Adults Non-Diabetic: < or = 5.6% Increased risk for developing diabetes: 5.7-6.4% Diagnostic of diabetes: > or = 6.5% Monitoring of Diabetes Age (y)................... .... Therapeutic Goal (%) Adults: >18................... ......<7.0 Pediatrics: 13-18................. ..<7.5 Pediatrics: 7-12.................. ..<8.0 Pediatrics: 0-6................... .. 7.5-8.5 [place]. Diabetes Care 33(S1), Feb 2009 [facility] Average glucose Estimated from glycated hemoglobin (Bld) [Mass/Vol] 217 mg/dL Normal Not Established [facility] Comment on above: Order Comment: Diagn osis of Diabetes-Adults Non-Diabetic: < or = 5.6% Increased risk for developing diabetes: 5.7-6.4% Diagnostic of diabetes: > or = 6.5% Monitoring of Diabetes Age (y)....................... Therapeutic Goal (%) Adults: >18.........................<7.0 Pediatrics: 13-18...................<7.5 Pediatrics: 7-12....................<8.0 Pediatrics: 0-6..................... 7.5-8.5 [place]. Diabetes Care 33(S1), Feb 2009 Performed By: #### 4 548-4 #### KAYLEY Gamez ([id number]) [facility] ([facility]) [address] [place] [address] Hemoglobin A1Con 03-06-2023 HbA1c (Bld) [Mass fraction] 9.2 % High see below [facility] Hemoglobin A1c/Hemoglobin.to guido 03-06-2023 HbA1c (Bld) [Mass fraction] 9.2 % High see below [facility] Comment on above: Order Comment: Diagn osis of Diabetes-Adults Non-Diabetic: < or = 5.6% Increased risk for developing diabetes: 5.7-6.4% Diagnostic of diabetes: > or = 6.5% Monitoring of Diabetes Age (y)....................... Therapeutic Goal (%) Adults: >18.........................<7.0 Pediatrics: 13-18...................<7.5 Pediatrics: 7-12....................<8.0 Pediatrics: 0-6..................... 7.5-8.5 [place]. Diabetes Care 33(S1), Feb 2009 Performed By: #### 4 548-4 #### KAYLEY Gamez ([id number]) [facility] ([facility]) [address] [place] [address] Lipid 1996 panelon 4 Cholesterol [Mass/Vol] 147 mg/dL 0 - 199 mg/dL [facility] Comment on above: Age Desirable Borderline High High 0-19 Y 0 - 169 170 - 199 >/= 200 20-24 Y 0 - 189 190 - 224 >/= 225 >24 Y 0 - 199 200 - 239 >/= 240 All ranges are based on fasting samples. Specific therapeutic targets will vary based on patient-specific cardiac risk. Pediatric guidelines reference:Pediatrics 2011, 128(S5).Adult guidelines reference: NCEP ATPIII Guidelines,CHINEDU 2001, 258:2486-97 Venipuncture immediately after or during the administration of Metamizole may lead to falsely low results. Testing should be performed immediately prior to Metamizole dosing. Cholesterol in HDL [Mass/Vol] 37.7 mg/dL [facility] Comment on above: Age Very Low Low Normal High 0-19 Y < 35 < 40 40-45 ---- 20-24 Y ---- < 40 >45 ---- >24 Y ---- < 40 40-60 >60 Cholesterol in LDL [Mass/Vol] 48 mg/dL NINF - 99 mg/dL [facility] Comment on above: Near Borderline AGE Desirable Optimal High High Very High 0-19 Y 0 - 109 --- 110-129 >/= 130 ---- 20-24 Y 0 - 119 --- 120-159 >/= 160 ---- >24 Y 0 - 99 100-129 130-159 160-189 >/=190 Cholesterol in VLDL [Mass/Vol] 61 mg/dL High 0 - 40 mg/dL [facility] Cholesterol.total/Ch olesterol in HDL [Mass ratio] 3.9 {ratio} [facility] Comment on above: Ref Values Desirable < 3.4 High Risk > 5.0 Non HDL Cholesterol 109 mg/dL 0 - 149 mg/dL [facility] Comment on above: Age Desirable Borderline High High Very High 0-19 Y 0 - 119 120 - 144 >/= 145 >/= 160 20-24 Y 0 - 149 150 - 189 >/= 190 ---- >24 Y 30 mg/dL above LDL Cholesterol goal Triglyceride [Mass/Vol] 305 mg/dL High 0 - 149 mg/dL [facility] Comment on above: Age Desirable Borderline High High Very High 0 D-90 D 19 - 174 ---- ---- ---- 91 D- 9 Y 0 - 74 75 - 99 >/= 100 ---- 10-19 Y 0 - 89 90 - 129 >/= 130 ---- 20-24 Y 0 - 114 115 - 149 >/= 150 ---- >24 Y 0 - 149 150 - 199 200- 499 >/= 500 Venipuncture immediately after or during the administration of Metamizole may lead to falsely low results. Testing should be performed immediately prior to Metamizole dosing. Cholesterol [Mass/Vol] 147 mg/dL Normal 0-199 [facility] Comment on above: Result Comment: Age Desirable Borderline High High 0-19 Y 0 - 169 170 - 199 >/= 200 20-24 Y 0 - 189 190 - 224 >/= 225 >24 Y 0 - 199 200 - 239 >/= 240 All ranges are based on fasting samples. Specific therapeutic targets will vary based on patient-specific cardiac risk. Pediatric guidelines reference:Pediatrics 2011, 128(S5).Adult guidelines reference: NCEP ATPIII Guidelines,CHINEDU 2001, 258:2486-97 Venipuncture immediately after or during the administration of Metamizole may lead to falsely low results. Testing should be performed immediately prior to Metamizole dosing. Performed By: #### 2 4331-1 #### SILVERIO NI ([id number]) [facility] ([facility]) [address] [place] [address] Cholesterol in HDL [Mass/Vol] 37.7 mg/dL Normal [facility] Comment on above: Result Comment: Age Very Low Low Normal High 0-19 Y < 35 < 40 40-45 ---- 20-24 Y ---- < 40 >45 ---- >24 Y ---- < 40 40-60 >60 Performed By: #### 2 4331-1 #### SILVERIO NI ([id number]) [facility] ([facility]) [address] [place] [address] Cholesterol in LDL [Mass/Vol] 48 mg/dL Normal <=99 [facility] Comment on above: Result Comment: Near Borderline AGE Desirable Optimal High High Very High 0-19 Y 0 - 109 --- 110-129 >/= 130 ---- 20-24 Y 0 - 119 --- 120-159 >/= 160 ---- >24 Y 0 - 99 100-129 130-159 160-189 >/=190 Performed By: #### 2 4331-1 #### SILVERIO NI ([id number]) [facility] ([facility]) [address] [place] [address] Cholesterol in VLDL [Mass/Vol] 61 mg/dL High 0-40 [facility] Comment on above: Performed By: #### 2 4331-1 #### SILVERIO NI ([id number]) [facility] ([facility]) [address] [place] [address] CHOLESTEROL/HDL RATIO 3.9 Normal [facility] Comment on above: Result Comment: Ref Values Desirable < 3.4 High Risk > 5.0 Performed By: #### 2 4331-1 #### SILVERIO NI ([id number]) [facility] ([facility]) [address] [place] [address] NON HDL CHOLESTEROL 109 mg/dL Normal 0-149 [facility] Comment on above: Result Comment: Age Desirable Borderline High High Very High 0-19 Y 0 - 119 120 - 144 >/= 145 >/= 160 20-24 Y 0 - 149 150 - 189 >/= 190 ---- >24 Y 30 mg/dL above LDL Cholesterol goal Performed By: #### 2 4331-1 #### SILVERIO NI ([id number]) [facility] ([facility]) [address] [place], [place] [id number] Triglyceride [Mass/Vol] 305 mg/dL High 0-149 [facility] Comment on above: Result Comment: Age Desirable Borderline High High Very High 0 D-90 D 19 - 174 ---- ---- ---- 91 D- 9 Y 0 - 74 75 - 99 >/= 100 ---- 10-19 Y 0 - 89 90 - 129 >/= 130 ---- 20-24 Y 0 - 114 115 - 149 >/= 150 ---- >24 Y 0 - 149 150 - 199 200- 499 >/= 500 Venipuncture immediately after or during the administration of Metamizole may lead to falsely low results. Testing should be performed immediately prior to Metamizole dosing. Performed By: #### 2 4331-1 #### SILVERIO NI ([id number]) [facility] ([facility]) [address] [place] [address] No Panel Informationon 03-06 Interpretation and review of laboratory results Abnormal [facility] TSH WITH REFLEX TO FREE T4 I F ABNORMALon 03-06-2023 TSH Qn 1.63 m[IU]/L Normal 0.44-3.98 [facility] Comment on above: Order Comment: TSH t esting is performed using different testing methodology at [facility] than at other [facility]. Direct result comparisons should only be made within the same method. Performed By: #### T HYDS #### SILVERIO NI ([id number]) [facility] ([facility]) [address] [place] [address] TSH with reflex to Free T4 i f abnormalon 03-06-2023 Interpretation and review of laboratory results Normal [facility] TSH Qn 1.63 m[IU]/L [facility] TSH testing is performed using different testing methodology at [facility] than at other [facility]. Direct result comparisons should only be made within the same method. [facility] Urateon 03-06-2023 Urate [Mass/Vol] 5.4 mg/dL Normal 4.0-7.5 [facility] Comment on above: Result Comment: Elisabeth puncture immediately after or during the administration of Metamizole may lead to falsely low results. Testing should be performed immediately prior to Metamizole dosing. Performed By: #### 3 084-1 #### SILVERIO NI ([id number]) [facility] ([facility]) [address] [place] [address] Urate [Mass/Vol]on Interpretation and review of laboratory results Normal [facility] Uric acidon 03-06-2023 Urate [Mass/Vol] 5.4 mg/dL 4.0 - 7.5 mg/dL [facility] Comment on above: Venipuncture immedia tely after or during the administration of Metamizole may lead to falsely low results. Testing should be performed immediately prior to Metamizole dosing. Vitamin B12on 03-06-2023 Cobalamin (Vitamin B12) [Mass/Vol] 975 pg/mL High 211 - 911 pg/mL [facility] ENT Physician Progress N oteon 01-31-2023 [facility] ENT Physician Progress Note JEFFERSON CARCAMO :1960 Registration Date:01/31/2023 Chief Complaint Patient presents for check on ears - has c/o dizziness. History of Present Illness He returns the office. He has had unsteadiness over the last few years, which is nonvertiginous. When I saw him a year and a half ago I suggested maybe getting a CAT scan of his temporal bones. He never got around doing that, and finds that his ears and his hearing been quite stable. His history positive for previous tympanomastoidectomy with removal of cholesteatoma. Has had no otorrhea or hearing change. He is here for follow-up. He does have a longstanding history of ankylosing spondylitis. He does not have a defense analyst. His primary doctor recently retired. Review of Systems Noncontributory except as noted below Physical Exam Vitals & Measurements Height/Length Measured: 178 cm (01/31/23 15:39:00) Weight Measured: 111 kg (01/31/23 15:39:00) Body Mass Index Measured: 35.03 kg/m2 (1239:) Weight Measured - lbs2: 245 lb (01/31/2339:) Height/Length Measured - in2: 70 in (01/31/23:) Body Mass Index Measured English2: 35.15 kg/m2 (01/31/2339:) BSA: 2.34 m2 (01/31/2339:) Ht/Wt Measurement Refused by Patient?2: No (01/31/23:) Depression Screening Scores Initial Depression Screen Score: 0 (01/31/2339:) Fall Risk Assessment Is the patient ambulatory (mobile): Yes (01/31/23:) Have you had a fall within the past: No (01/31/23:) Have you had 2 or more falls in the past: No (01/31/23:) The ears were examined and the right ear was found to be obstructed with cerumen. This was removed with an operating microscope and surgical instrumentation. The drum and middle ear were clear. The left ear was normal. The external nose shows no obvious abnormalities or scars, except as noted below. The mucosa is grossly normal, as are the respiratory turbinates. The nasal septum essentially midline with only minimal deviation. There are no obvious polyps or other deformities. Oral cavity and cervical examinations are unremarkable. He does have a rigidly fixed neck Medication Reconciliation What How Much When Instructions Unchanged allopurinol (allopurinol 300 mg oral tablet) TAKE 1 TABLET BY MOUTH DAILY Unchanged atorvastatin (atorvastatin 10 mg oral tablet) TAKE 1 TABLET BY MOUTH DAILY Unchanged cholecalciferol (Vitamin D3 2000 intl units oral capsule) 1 Capsules Oral DAILY Unchanged diclofenac (diclofenac sodium 75 mg oral enteric coated tablet) 1 Tabs Oral TWICE A DAY Unchanged glimepiride (glimepiride 4 mg oral tablet) Take one tablet by mouth twice a day Unchanged hydrochlorothiazide = HydroDIURIL (hydrochlorothiazide 12.5 mg oral capsule) 1 Capsules Oral TWICE A DAY Unchanged hydrochlorothiazide-li sinopril (hydrochlorothiazide-l isinopril 25 mg-20 mg oral tablet) TAKE 2 TABLETS BY MOUTH DAILY Unchanged lisinopril (lisinopril 20 mg oral tablet) 1 Tabs Oral TWICE A DAY Unchanged metformin (metformin 500 mg oral tablet) 1 Tabs Oral TWICE A DAY Unchanged metoprolol (Metoprolol Succinate ER 25 mg oral tablet, extended release) TAKE 1 TABLET BY MOUTH EVERY DAY Unchanged Non-Formulary Med (One Touch Verio Test Strip) Use to test blood glucose levels 2 times a day Unchanged rivaroxaban (Xarelto 20 mg oral tablet) Take one tablet by mouth every day Unchanged SITagliptin (Januvia 25 mg oral tablet) TAKE 1 TABLET BY MOUTH DAILY Assessment/Plan This Visit Diagnosis 1. Ankylosing spondylitis M45.9 I have asked her to review this with his new primary doctor. Some point may benefit from assessment by a defense analyst. He also may benefit from physical therapy for his dizziness. Ordered: AMB Office/Outpt Est Pt Low MDM / 20-29 min significant, separately identifiable , 01/31/2023 15:50:00 EST, Ankylosing spondylitis / History of cholesteatoma / Dizziness AMB Remove impctd cerumen w/instrmnt RT , 01/31/2023 15:50:00 EST, Ankylosing spondylitis / History of cholesteatoma / Dizziness, 1 2. History of cholesteatoma Z86.69 There is no evidence of recurrence. I did remove wax was right ear. Ordered: AMB Office/Outpt Est Pt Low MDM / 20-29 min significant, separately identifiable , 01/31/2023 15:50:00 EST, Ankylosing spondylitis / History of cholesteatoma / Dizziness AMB Remove impctd cerumen w/instrmnt RT , 01/31/2023 15:50:00 EST, Ankylosing spondylitis / History of cholesteatoma / Dizziness, 1 3. Dizziness R42 He has no vertigo whatsoever. This is like related to his cervical spine. He may consider a trial of physical therapy at some point Ordered: AMB Office/Outpt Est Pt Low MDM / 20-29 min significant, separately identifiable , 01/31/2023 15:50:00 EST, Ankylosing spondylitis / History of cholesteatoma / Dizziness AMB Remove impctd cerumen w/instrmnt RT , 01/31/2023 15:50:00 EST, Ankylosing spondy (more content not included)... Normal [facility] Ambulatory Clinical Summaryo n 01-31-2023 Ambulatory Clinical Summary JEFFERSON CARCAMO :1960 Registration Date:01/31/2023 Ambulatory Visit Instructions Your Diagnosis Ankylosing spondylitis History of cholesteatoma Dizziness Impacted cerumen of right ear Your Care Team Attending Physician - KRISTYN AGUERO, TRISHA Primary Care Physician - DOLORES AGUERO, PHILLIP [facility] Discharge Vitals Height 70.08 in (178 cm) Weight 244.76 lb (111 kg) BMI 35.03 Height/Length Measured: 178 cm (01/31/23 15:39:00) Weight Measured: 111 kg (01/31/23 15:39:00) Body Mass Index Measured: 35.03 kg/m2 (01/31/23 15:39:00) Weight Measured - lbs2: 245 lb (01/31/23 15:39:00) Height/Length Measured - in2: 70 in (01/31/23 15:39:00) Body Mass Index Measured English2: 35.15 kg/m2 (01/31/23 15:39:00) BSA: 2.34 m2 (01/31/23 15:39:00) Ht/Wt Measurement Refused by Patient?2: No (01/31/23 15:39:00) What to do next Scheduled Follow-Up Appointments No results Medications What How Much When Instructions Unchanged allopurinol (allopurinol 300 mg oral tablet) TAKE 1 TABLET BY MOUTH DAILY Unchanged atorvastatin (atorvastatin 10 mg oral tablet) TAKE 1 TABLET BY MOUTH DAILY Unchanged cholecalciferol (Vitamin D3 2000 intl units oral capsule) 1 Capsules Oral DAILY Unchanged diclofenac (diclofenac sodium 75 mg oral enteric coated tablet) 1 Tabs Oral TWICE A DAY Unchanged glimepiride (glimepiride 4 mg oral tablet) Take one tablet by mouth twice a day Unchanged hydrochlorothiazide = HydroDIURIL (hydrochlorothiazide 12.5 mg oral capsule) 1 Capsules Oral TWICE A DAY Unchanged hydrochlorothiazide-li sinopril (hydrochlorothiazide-l isinopril 25 mg-20 mg oral tablet) TAKE 2 TABLETS BY MOUTH DAILY Unchanged lisinopril (lisinopril 20 mg oral tablet) 1 Tabs Oral TWICE A DAY Unchanged metformin (metformin 500 mg oral tablet) 1 Tabs Oral TWICE A DAY Unchanged metoprolol (Metoprolol Succinate ER 25 mg oral tablet, extended release) TAKE 1 TABLET BY MOUTH EVERY DAY Unchanged Non-Formulary Med (One Touch Verio Test Strip) Use to test blood glucose levels 2 times a day Unchanged rivaroxaban (Xarelto 20 mg oral tablet) Take one tablet by mouth every day Unchanged SITagliptin (Januvia 25 mg oral tablet) TAKE 1 TABLET BY MOUTH DAILY Allergies No Known Allergies Problems Ongoing - Any problem that you are currently receiving treatment for. Ankylosing spondylitis Dizziness History of cholesteatoma Spondylitis, ankylosing Common Emergency Awareness Tips IS IT A STROKE? Act FAST and Check for these signs: FACE Does the face look uneven? ARM Does one arm drift down? SPEECH Does their speech sound strange? TIME Call at any sign of stroke Heart Attack Signs Chest discomfort: Most heart attacks involve discomfort in the center of the chest and lasts more than a few minutes, or goes away and comes back. It can feel like uncomfortable pressure, squeezing, fullness or pain. Discomfort in upper body: Symptoms can include pain or discomfort in one or both arms, back, neck, jaw or stomach. Shortness of breath: With or without discomfort. Other signs: Breaking out in a cold sweat, nausea, or lightheaded. Remember, MINUTES DO MATTER. If you experience any of these heart attack warning signs, call to get immediate medical attention! Normal [facility] Comprehensive Intake - Texto n 01-31-2023 Comprehensive Intake - Text Comprehensive Intake Entered On: 01/31/2023 15:39 EST Performed On: 01/31/2023 15:39 EST by Adriana Reynolds Summary Chief Complaint : Patient presents for check on ears - has c/o dizziness. Bladder Control Issues? : No Urine Leakage? : No Presence or absence of urinary incontinence assessed : Yes CPT-II Medication list doc'd in medical record : Yes Adriana Reynolds - 01/31/2023 15:40 EST Advance Directive : No Influenza immunization administered or previously received : No Pneumococcal vaccine administered or previously received : No Adriana Reynolds - 01/31/2023 15:39 EST Measurements Ht/Wt Measurement Refused by Patient? : No Weight Measured : 111 kg(Converted to: 244 lb 11 oz, 244.713 lb) Height/Length Measured : 178 cm(Converted to: 5 ft 10 in, 70.08 in) Body Mass Index Measured : 35.03 kg/m2 Body Mass Index documented : Yes Weight Measured - lbs : 245 lb(Converted to: 245 lb 0 oz, 111 kg) Height/Length Measured - in : 70 in(Converted to: 5 ft 10 in, 178 cm) Body Mass Index Measured Kosovan : 35.15 kg/m2 BSA Kosovan : 2.34 m2 Adriana Reynolds - 01/31/2023 15:39 EST Vitals Require BP : No Pain Present : No actual or suspected pain Pain : 0 Pain severity quantified : No pain present Adriana Reynolds - 01/31/2023 15:40 EST Infection Screening - Ambulatory Exposure AND/OR close contact with a person under investigation or laboratory-confirmed COVID-19 individual within 14 days of symptom onset AND/OR any of the following: : No Do you live/work in a high risk situation (congregated living, hemodialysis, infusion clinic, alf, assisted living, assisted, homeless [place] [facility] facility, etc.)? : No Adriana Reynolds - 01/31/2023 15:40 EST Depression Screening Is patient currently : None of the Below Feeling Down, Depressed, Hopeless : Not at all Little Interest - Pleasure in Activities : Not at all Initial Depression Screen Score : 0 Depression Screening Score 0 : No Adriana Reynolds 01/31/2023 15:40 EST Falls Risk Assessment Is the patient ambulatory (mobile) : Yes Have you had 2 or more falls in the past year : No Have you had a fall within the past year that has caused an injury : No Patient screen for fall risk : no falls in last year OR 1 fall with no injury in last year Adriana Reynolds - 01/31/2023 15:40 EST Normal [facility] HEMOGLOBIN A1Con 09-19-2022 Glucose [Mass/Vol] 214 mg/dL Normal [facility] Comment on above: Performed By: #### H BA1E #### [facility] [address] [place] [address] HbA1c (Bld) [Mass fraction] 9.1 % Abnormal [facility] Comment on above: Result Comment: Diag nosis of Diabetes-Adults Non-Diabetic: < or = 5.6% Increased risk for developing diabetes: 5.7-6.4% Diagnostic of diabetes: > or = 6.5% . Monitoring of Diabetes Age (y) Therapeutic Goal (%) Adults: >18 <7.0 Pediatrics: 13-18 <7.5 7-12 <8.0 0- 6 7.5-8.5 [employer]. Diabetes Care 33(S1), Feb 2009. Performed By: #### H BA1E #### [facility] [address] [place] [address] CBC AND DIFFERENTIALon 09-18 % AUTOMATED IMMATURE GRAN 0.2 % Normal 0.0 - 0.9 [facility] Comment on above: Result Comment: Leesa ture Granulocyte Count (IG) includes promyelocytes, myelocytes and metamyelocytes but does not include bands. Percent differential counts (%) should be interpreted in the context of the absolute cell counts (cells/L). Performed By: #### C BCDF #### [address] [place] [address] Basophils (Bld) [#/Vol] 0.05 10*3/uL Normal 0.00 - 0.10 [facility] Comment on above: Performed By: #### C BCDF #### [address] [place] [address] Basophils/100 WBC (Bld) 0.3 % Normal 0.0 - 2.0 [facility] Comment on above: Performed By: #### C BCDF #### [address] [place] [address] Eosinophils (Bld) [#/Vol] 0.66 10*3/uL Normal 0.00 - 0.70 [facility] Comment on above: Performed By: #### C BCDF #### [address] [place] [address] Eosinophils/100 WBC (Bld) 4.5 % Normal 0.0 - 6.0 [facility] Comment on above: Performed By: #### C BCDF #### [address] [place] [address] Erythrocyte distribution width (RBC) [Ratio] 13.0 % Normal 11.5 - 14.5 [facility] Comment on above: Performed By: #### C BCDF #### [address] [place] [address] Hematocrit (Bld) [Volume fraction] 37.2 % Low 41.0 - 52.0 [facility] Comment on above: Performed By: #### C BCDF #### [address] [place] [address] Hemoglobin (Bld) [Mass/Vol] 12.6 g/dL Low 13.5 - 17.5 [facility] Comment on above: Performed By: #### C BCDF #### [address] [place] [address] Lymphocytes (Bld) [#/Vol] 5.07 10*3/uL High 1.20 - 4.80 [facility] Comment on above: Performed By: #### C BCDF #### [address] [place] [address] Lymphocytes/100 WBC (Bld) 34.9 % Normal 13.0 - 44.0 [facility] Comment on above: Performed By: #### C BCDF #### [address] [place] [address] MCHC (RBC) [Mass/Vol] 33.9 g/dL Normal 32.0 - 36.0 [facility] Comment on above: Performed By: #### C BCDF #### [address] [place] [address] MCV (RBC) [Entitic vol] 94 fL Normal 80 - 100 [facility] Comment on above: Performed By: #### C BCDF #### [address] [place] [address] Monocytes (Bld) [#/Vol] 1.06 10*3/uL High 0.10 - 1.00 [facility] Comment on above: Performed By: #### C BCDF #### [address] [place] [address] Monocytes/100 WBC (Bld) 7.3 % Normal 2.0 - 10.0 [facility] Comment on above: Performed By: #### C BCDF #### [address] [place] [address] Neutrophils (Bld) [#/Vol] 7.64 10*3/uL Normal 1.20 - 7.70 [facility] Comment on above: Performed By: #### C BCDF #### [address] [place] [address] Neutrophils/100 WBC (Bld) 52.8 % Normal 40.0 - 80.0 [facility] Comment on above: Performed By: #### C BCDF #### [address] [place] [address] Platelets (Bld) [#/Vol] 286 10*3/uL Normal 150 - 450 [facility] Comment on above: Performed By: #### C BCDF #### [address] [place] [address] RBC 3.95 x10E12/L Low 4.50 - 5.90 [facility] Comment on above: Performed By: #### C BCDF #### [address] [place] [address] WBC (Bld) [#/Vol] 14.5 10*3/uL High 4.4 - 11.3 [facility] Comment on above: Performed By: #### C BCDF #### [address] [place] [address] COMPREHENSIVE PANELon 2022 ALBUMIN Canceled Normal [facility] Comment on above: Order Comment: TEST COMPREHENSIVE PANEL WAS CANCELLED, 09/18/2022 16:25 DUPLICATE DONE THRU [facility]. Performed By: #### C MP #### [address] [place] [address] ALKALINE PHOSPHATASE Canceled Normal [facility] Comment on above: Order Comment: TEST COMPREHENSIVE PANEL WAS CANCELLED, 09/18/2022 16:25 [facility]. Performed By: #### C MP #### [address] [place] [address] ALT Canceled Normal [facility] Comment on above: Order Comment: TEST COMPREHENSIVE PANEL WAS CANCELLED, 09/18/2022 16:25 DUPLICATE DONE [facility]. Result Comment: Svetlana ents treated with Sulfasalazine may generate falsely decreased results for ALT. Performed By: #### C MP #### [address] [address] ANION GAP Canceled Normal [facility] Comment on above: Order Comment: TEST COMPREHENSIVE PANEL WAS CANCELLED, 09/18/2022 16:25 DUPLICATE DONE [facility]. Performed By: #### C MP #### [address] [address] AST Canceled Normal [facility] Comment on above: Order Comment: TEST COMPREHENSIVE PANEL WAS CANCELLED, 09/18/2022 16:25 DUPLICATE DONE [facility]. Performed By: #### C MP #### [address] [address] BICARBONATE Canceled Normal [facility] Comment on above: Order Comment: TEST COMPREHENSIVE PANEL WAS CANCELLED, 09/18/2022 16:25 DUPLICATE DONE [facility]. Performed By: #### C MP #### [address] [address] BILIRUBIN,TOTAL Canceled Normal [facility] Comment on above: Order Comment: TEST COMPREHENSIVE PANEL WAS CANCELLED, 09/18/2022 16:25 DUPLICATE DONE [facility]. Performed By: #### C MP #### [address] [place] [address] CALCIUM Canceled Normal [facility] Comment on above: Order Comment: TEST COMPREHENSIVE PANEL WAS CANCELLED, 09/18/2022 16:25 DUPLICATE DONE [facility]. Performed By: #### C MP #### [address] [place] [address] CHLORIDE Canceled Normal [facility] Comment on above: Order Comment: TEST COMPREHENSIVE PANEL WAS CANCELLED, 09/18/2022 16:25 DUPLICATE DONE [facility]. Performed By: #### C MP #### [address] [place] [address] CREATININE Canceled Normal [facility] Comment on above: Order Comment: TEST COMPREHENSIVE PANEL WAS CANCELLED, 09/18/2022 16:25 DUPLICATE DONE [facility]. Performed By: #### C MP #### [address] [address] eGFR FEMALE Canceled [facility] Comment on above: Order Comment: TEST COMPREHENSIVE PANEL WAS CANCELLED, 09/18/2022 16:25 DUPLICATE DONE [facility]. Result Comment: CALC ULATIONS OF ESTIMATED GFR ARE PERFORMED USING THE 2020 CKD-EPI STUDY REFIT EQUATION WITHOUT THE RACE VARIABLE FOR THE IDMS-TRACEABLE CREATININE METHODS. https://jasn.asnjournals.org/content/early/ASN.0542584 988 Performed By: #### C MP #### [address] [place] [address] eGFR MALE Canceled Normal [facility] Comment on above: Order Comment: TEST COMPREHENSIVE PANEL WAS CANCELLED, 09/18/2022 16:25 DUPLICATE DONE [facility]. Result Comment: CALC ULATIONS OF ESTIMATED GFR ARE PERFORMED USING THE 2020 CKD-EPI STUDY REFIT EQUATION WITHOUT THE RACE VARIABLE FOR THE IDMS-TRACEABLE CREATININE METHODS. https://jasn.asnjournals.org/content/early/ASN.3404554 988 Performed By: #### C MP #### [address] [place] [address] GLUCOSE Canceled Normal [facility] Comment on above: Order Comment: TEST COMPREHENSIVE PANEL WAS CANCELLED, 09/18/2022 16:25 DUPLICATE DONE [facility]. Performed By: #### C MP #### [address] [address] POTASSIUM Canceled Normal [facility] Comment on above: Order Comment: TEST COMPREHENSIVE PANEL WAS CANCELLED, 09/18/2022 16:25 DUPLICATE DONE [facility]. Performed By: #### C MP #### [address] [address] SODIUM Canceled Normal [facility] Comment on above: Order Comment: TEST COMPREHENSIVE PANEL WAS CANCELLED, 09/18/2022 16:25 DUPLICATE DONE [facility]. Performed By: #### C MP #### [address] [address] TOTAL PROTEIN Canceled Normal [facility] Comment on above: Order Comment: TEST COMPREHENSIVE PANEL WAS CANCELLED, 09/18/2022 16:25 DUPLICATE DONE [facility]. Performed By: #### C MP #### [address] [address] UREA NITROGEN Canceled Normal [facility] Comment on above: Order Comment: TEST COMPREHENSIVE PANEL WAS CANCELLED, 09/18/2022 16:25 DUPLICATE DONE [facility]. Performed By: #### C MP #### [address] [place] [address] Albumin [Mass/Vol] 4.3 g/dL Normal 3.4 - 5.0 [facility] Comment on above: Performed By: #### C MP #### [facility] [address] [place] [place] [address] ALP [Catalytic activity/Vol] 68 U/L Normal 33 - 136 [facility] Comment on above: Performed By: #### C MP #### [facility] [address] [place] [address] ALT [Catalytic activity/Vol] 42 U/L Normal 10 - 52 [facility] Comment on above: Result Comment: Svetlana ents treated with Sulfasalazine may generate falsely decreased results for ALT. Performed By: #### C MP #### [address] [place] [address] Anion gap [Moles/Vol] 14 mmol/L Normal 10 - 20 [facility] Comment on above: Performed By: #### C MP #### [address] [place] [address] AST [Catalytic activity/Vol] 27 U/L Normal 9 - 39 [facility] Comment on above: Performed By: #### C MP #### [address] [place] [address] Bilirubin [Mass/Vol] 0.4 mg/dL Normal 0.0 - 1.2 [facility] Comment on above: Performed By: #### C MP #### [address] [place] [address] Calcium [Mass/Vol] 9.8 mg/dL Normal 8.6 - 10.3 [facility] Comment on above: Performed By: #### C MP #### [address] [place] [address] Chloride [Moles/Vol] 103 mmol/L Normal 98 - 107 [facility] Comment on above: Performed By: #### C MP #### [address] [place] [address] Creatinine [Mass/Vol] 1.68 mg/dL High 0.50 - 1.30 [facility] Comment on above: Performed By: #### C MP #### [address] [place] [address] GFR/1.73 sq M.predicted among non-blacks MDRD (S/P/Bld) [Vol rate/Area] 46 mL/min/{1.73_m2} Abnormal >90 [facility] Comment on above: Result Comment: CALC ULATIONS OF ESTIMATED GFR ARE PERFORMED USING THE 2020 CKD-EPI STUDY REFIT EQUATION WITHOUT THE RACE VARIABLE FOR THE IDMS-TRACEABLE CREATININE METHODS. https://jasn.asnjournals.org/content//ASN.1354724 988 Performed By: #### C MP #### [address] [place] [address] Glucose [Mass/Vol] 190 mg/dL High 74 - 99 [facility] Comment on above: Performed By: #### C MP #### [address] [place] [address] HCO3 (Bld) [Moles/Vol] 26 mmol/L Normal 21 - 32 [facility] Comment on above: Performed By: #### C MP #### [address] [place] [address] Potassium [Moles/Vol] 4.7 mmol/L Normal 3.5 - 5.3 [facility] Comment on above: Performed By: #### C MP #### [address] [place] [address] Protein [Mass/Vol] 7.2 g/dL Normal 6.4 - 8.2 [facility] Comment on above: Performed By: #### C MP #### [address] [place] [address] Sodium [Moles/Vol] 138 mmol/L Normal 136 - 145 [facility] Comment on above: Performed By: #### C MP #### [address] [place] [address] Urea nitrogen [Mass/Vol] 38 mg/dL High 6 - 23 [facility] Comment on above: Performed By: #### C MP #### [address] [place] [address] Complete Blood Count + Diffe joana 09-18-2022 Basophils/100 WBC (Bld) 0.3 % 0.0 - 2.0 [facility] DO Work Phone: Erythrocyte distribution width (RBC) [Ratio] 13.0 % See Below [facility] DO Work Phone: Comment on above: Reference Range: 11. 5 - 14.5 Hematocrit (Bld) [Volume fraction] 37.2 % below low threshold See Below [facility] DO Work Phone: Comment on above: Reference Range: 41. 0 - 52.0 Hemoglobin (Bld) [Mass/Vol] 12.6 g/dL below low threshold See Below [facility] DO Work Phone: Comment on above: Reference Range: 13. 5 - 17.5 Lymphocytes/100 WBC (Bld) 34.9 % See Below [facility] DO Work Phone: Comment on above: Reference Range: 13. 0 - 44.0 MCHC (RBC) [Mass/Vol] 33.9 g/dL See Below [facility] DO Work Phone: Comment on above: Reference Range: 32. 0 - 36.0 MCV (RBC) [Entitic vol] 94 fL 80 - 100 [facility] DO Work Phone: Monocytes/100 WBC (Bld) 7.3 % 2.0 - 10.0 [facility] DO Work Phone: Neutrophils/100 WBC (Bld) 52.8 % See Below [facility] DO Work Phone: Comment on above: Reference Range: 40. 0 - 80.0 Platelets (Bld) [#/Vol] 286 10*3/uL 150 - 450 [facility] DO Work Phone: RBC (Bld) [#/Vol] 3.95 {x10E12/L} below low threshold See Below [facility] DO Work Phone: Comment on above: Reference Range: 4.5 0 - 5.90 WBC (Bld) [#/Vol] 14.5 10*3/uL above high threshold 4.4 - 11.3 [facility] DO Work Phone: Complete Blood Count + Differential 0.05 {x10E9/L} See Below [facility] DO Work Phone: Comment on above: Reference Range: 0.0 0 - 0.10 Complete Blood Count + Differential 0.66 {x10E9/L} See Below [facility] DO Work Phone: Comment on above: Reference Range: 0.0 0 - 0.70 Complete Blood Count + Differential 1.06 {x10E9/L} above high threshold See Below [facility] DO Work Phone: Comment on above: Reference Range: 0.1 0 - 1.00 Complete Blood Count + Differential 5.07 {x10E9/L} above high threshold See Below [facility] DO Work Phone: Comment on above: Reference Range: 1.2 0 - 4.80 Complete Blood Count + Differential 7.64 {x10E9/L} See Below [facility] DO Work Phone: Comment on above: Reference Range: 1.2 0 - 7.70 Complete Blood Count + Differential 4.5 % 0.0 - 6.0 [facility] DO Work Phone: Complete Blood Count + Differential 0.2 % 0.0 - 0.9 [facility] DO Work Phone: Comment on above: Immature Granulocyte Count (IG) includes promyelocytes, myelocytes and metamyelocytes but does not include bands. Percent differential counts (%) should be interpreted in the context of the absolute cell counts (cells/L). FERRITINon 09-18-2022 FERRITIN 150 ug/L Normal 20 - 300 [facility] Comment on above: Performed By: #### F ERRI #### [address] [address] Ferritin, Serumon 09-18-2022 Ferritin [Mass/Vol] 150 ug/L 20 - 300 [facility] DO Work Phone: Hemoglobin A1Con 09-18-2022 Glucose [Mass/Vol] 214 mg/dL [facility] DO Work Phone: HbA1c (Bld) [Mass fraction] 9.1 % Abnormal [facility] DO Work Phone: Comment on above: Diagnosis of Diabete s-Adults Non-Diabetic: < or = 5.6% Increased risk for developing diabetes: 5.7-6.4% Diagnostic of diabetes: > or = 6.5%. Monitoring of Diabetes Age (y) Therapeutic Goal (%) Adults: >18 <7.0 Pediatrics: 13-18 <7.5 7-12 <8.0 0- 6 7.5-8.5 [employer]. Diabetes Care 33(S1), Feb 2009. IRON + TIBCon 09-18-2022 % SATURATION 34 % Normal 25 - 45 [facility] Comment on above: Performed By: #### I MARILYNNT #### [address] [address] Iron [Mass/Vol] 107 ug/dL Normal 35 - 150 [facility] Comment on above: Performed By: #### I RONT #### [address] [address] TIBC 315 ug/dL Normal 240 - 445 [facility] Comment on above: Performed By: #### I RONT #### [address] [address] Laboratory - Chemistry and C hemistry - challengeon 09-18-2022 Albumin BCP dye [Mass/Vol] Canceled [facility] DO Work Phone: ALP [Catalytic activity/Vol] Canceled [facility] DO Work Phone: ALT With P-5'-P [Catalytic activity/Vol] Canceled [facility] DO Work Phone: Comment on above: Patients treated wit h Sulfasalazine may generate falsely decreased results for ALT. AST With P-5'-P [Catalytic activity/Vol] Canceled [facility] DO Work Phone: Bilirubin [Mass/Vol] Canceled formerly [facility] DO Work Phone: Calcium [Mass/Vol] Canceled [facility] DO Work Phone: Chloride [Moles/Vol] Canceled formerly [facility] DO Work Phone: CO2 [Moles/Vol] Canceled [facility] DO Work Phone: Creatinine [Mass/Vol] Canceled [facility] DO Work Phone: Glucose [Mass/Vol] Canceled [facility] DO Work Phone: Potassium [Moles/Vol] Canceled [facility] DO Work Phone: Protein [Mass/Vol] Canceled [facility] DO Work Phone: Sodium [Moles/Vol] Canceled [facility] DO Work Phone: Urea nitrogen [Mass/Vol] Canceled [facility] DO Work Phone: Albumin BCP dye [Mass/Vol] 4.3 g/dL 3.4 - 5.0 [facility] DO Work Phone: ALP [Catalytic activity/Vol] 68 U/L 33 - 136 [facility] DO Work Phone: ALT With P-5'-P [Catalytic activity/Vol] 42 U/L 10 - 52 [facility] DO Work Phone: Comment on above: Patients treated wit h Sulfasalazine may generate falsely decreased results for ALT. Anion gap [Moles/Vol] 14 mmol/L 10 - 20 [facility] DO Work Phone: AST With P-5'-P [Catalytic activity/Vol] 27 U/L 9 - 39 [facility] DO Work Phone: Bilirubin [Mass/Vol] 0.4 mg/dL 0.0 - 1.2 formerly [facility] DO Work Phone: Calcium [Mass/Vol] 9.8 mg/dL 8.6 - 10.3 [facility] DO Work Phone: Chloride [Moles/Vol] 103 mmol/L 98 - 107 formerly [facility] DO Work Phone: CO2 [Moles/Vol] 26 mmol/L 21 - 32 [facility] DO Work Phone: Creatinine [Mass/Vol] 1.68 mg/dL above high threshold See Below [facility] DO Work Phone: Comment on above: Reference Range: 0.5 0 - 1.30 Glucose [Mass/Vol] 190 mg/dL above high threshold 74 - 99 [facility] DO Work Phone: Iron [Mass/Vol] 107 ug/dL 35 - 150 [facility] DO Work Phone: Iron binding capacity [Mass/Vol] 315 ug/dL 240 - 445 [facility] DO Work Phone: Potassium [Moles/Vol] 4.7 mmol/L 3.5 - 5.3 [facility] DO Work Phone: Protein [Mass/Vol] 7.2 g/dL 6.4 - 8.2 [facility] DO Work Phone: Sodium [Moles/Vol] 138 mmol/L 136 - 145 [facility] DO Work Phone: Urea nitrogen [Mass/Vol] 38 mg/dL above high threshold 6 - 23 [facility] DO Work Phone: No Panel Informationon 09-18 Canceled [facility] [employer] Work Phone: Comment on above: CALCULATIONS OF FARA MATED GFR ARE PERFORMED USING THE 2020 CKD-EPI STUDY REFIT EQUATION WITHOUT THE RACE VARIABLE FOR THE IDMS-TRACEABLE CREATININE METHODS.https://jasn.asnjournals.org/content//ASN .4894648384 34 % 25 - 45 [facility] [employer] Work Phone: 46 {mL/min/1.73m2} Abnormal >90 [facility] [employer] Work Phone: Comment on above: CALCULATIONS OF FARA MATED GFR ARE PERFORMED USING THE 2020 CKD-EPI STUDY REFIT EQUATION WITHOUT THE RACE VARIABLE FOR THE IDMS-TRACEABLE CREATININE METHODS.https://jasn.asnjournals.org/content//ASN .4515680152 Tobacco Screening.on 023 Adult depression screening assessment No [facility] [employer] Work Phone: Fall risk assessment a) No falls within the last year [facility] DO Work Phone: Tobacco use status HS b) No [facility] DO Work Phone: Prostate Spec.Ag, Screenon 0 06-26-2022 Prostate specific Ag [Mass/Vol] 2.45 ng/mL See Below [facility] DO Work Phone: Comment on above: Reference Range: 0.0 0 - 4.00The FDA requires that the method used for PSA assay be reported to the physician. Values obtained with different assay methods must not be used interchangeably. This test was performed at [facility] using the Repair Report PSA method, which is a sandwich immunoassay using chemiluminescence for quantitation. The assay is approvedfor measurement of prostate-specific antigen (PSA) in serum and may be used in conjunction with a digital rectalexamination in men 50 years and older as an aid in detection of prostate cancer. 3-Uqzki-wnspdyowa inhibitors (e.g. Proscar, Finasteride, Avodart, Dutasteride and [place]) for the treatment of BPH have been shown to lower PSA levels by an average of 50% after 6 months of treatment. Laboratory - Molecular patho logyon 12-31-2021 Noninvasive colorectal cancer DNA and occult blood screening Edson (Stl) [Interp] Negative Negative [facility] DO Work Phone: Comment on above: [employer] (CLIA #:[id number])[address] [place] [address] FRANCISCO TA , Clinical Laboratory Medical DirectorNEGATIVE TEST RESULT. A negative Cologuard result indicates a low likelihood that a colorectal cancer (CRC) or advanced adenoma (adenomatous polyps with more advanced pre-malignant features) is present. The chance that a person with a negative Cologuard test has a colorectal cancer is less than 1 in 1500 (negative predictive value >99.9%) or has an advanced adenoma is less than 5.3% (negative predictive value 94.7%). These data are based on a prospective cross-sectional study of 10,000 individuals at average risk for colorectal cancer who were screened with both Cologuard and colonoscopy. (Kb Hinds al, N Engl J Med 2014;370(14):2571-2818) The normal value (reference range) for this assay is negative.COLOGUARD RE-SCREENING RECOMMENDATION: Periodic colorectal cancer screening is an important part of preventive healthcare for asymptomatic individuals at average risk for colorectal cancer. Following a negative Cologuard result, the [place] [employer] and U.S. Multi-Society Task Force screening guidelines recommend a Cologuard re-screening interval of 3 years. References: [place] [employer] Guideline for Colorectal Cancer Screening: https://www.cancer.org/cancer/pxfdd-svqzcp-tljbzj/detection-diagn osis-staging/acs-recommendations.html.; Wing DK, Sal CR, Kisha BealK, Colorectal Cancer Screening: Recommendations for Physicians and Patients from the U.S. Multi-Society Task Force on Colorectal Cancer Screening , Am J Gastroenterology 2017; 112:6062-5528.TEST DESCRIPTION: Composite algorithmic analysis of stool DNA-biomarkers with hemoglobin immunoassay. Quantitative values of individual biomarkers are not reportable and are not associated with individual biomarker result reference ranges. Cologuard is intended for colorectal cancer screening of adults of either sex, 45 years or older, who are at average-risk for colorectal cancer (CRC). Cologuard has been approved for use by the U.S. FDA. The performance of Cologuard was established in a cross sectional study of average-risk adults aged 50-84. Cologuard performance in patients ages 45 to 49 years was estimated by sub-group analysis of near-age groups. Colonoscopies performed for a positive result may find as the most clinically significant lesion: colorectal cancer [4.0%], advanced adenoma (including sessile serrated polyps greater than or equal to 1cm diameter) [20%] or non- advanced adenoma [31%]; or no colorectal neoplasia [45%]. These estimates are derived from a prospective cross-sectional screening study of 10,000 individuals at average risk for colorectal cancer who were screened with both Cologuard and colonoscopy. (Kb Otto, N Engl J Med 2014;370(14):3339-8553.) Cologuard may produce a false negative or false positive result (no colorectal cancer or precancerous polyp present at colonoscopy follow up). A negative Cologuard test result does not guarantee the absence of CRC or advanced adenoma (pre-cancer). The current Cologuard screening interval is every 3 years. ([place] [employer] and U.S. Multi-Society Task Force). Cologuard performance data in a 10,000 patient pivotal study using colonoscopy as the reference method can be accessed at the following location: www.[employer].Cswitch/results. Additional description of the Cologuard test process, warnings and precautions can be found at www.[employer]ter[employer].com. Follow Up (Endocrinology)on 12-26-2021 Follow Up (Endocrinology) Diagnoses/Problems Assessed Diabetes mellitus, type 2 (250.00) (E11.9) Hyperlipidemia (272.4) (E78.5) Benign essential hypertension (401.1) (I10) Orders Diabetes mellitus, type 2 IO glucose, blood, finger stick via hand held monitor; Status:Complete; Done: 26Dec2021 04:28PM Performed:In Office; Due:[id number]; Last Updated By:Nadya Parada; 12/26/2021 4:28:58 PM;Ordered; For:Diabetes mellitus, type 2; Ordered By:Rudi Abdi; IO Hgb A1C; Status:Complete; Done: 26Dec2021 04:29PM Performed:In Office; Due:[id number]; Last Updated By:Nadya Parada; 12/26/2021 4:30:29 PM;Ordered; For:Diabetes mellitus, type 2; Ordered By:Rudi Abdi; Patient Discussion/Summary Hemoglobin A1c has decreased to just above target range. He will continue his lifestyle measures. I am retiring and he will check with his primary physician in regard to further endocrine consultation. Blood pressure is controlled. Lipids are addressed by his statin. Chief Complaint Follow-up type 2 diabetes History of Present IllnessHe continues glimepiride 4 mg pills, 1/2 pill twice daily, metformin 1000 mg pills, 1/2 pill twice daily, and Januvia 25 mg daily. He test his fingerstick glucose once daily at different times with readings generally in the 100s, occasionally below 100 mg/dL. He has lost 6 pounds since last visit. He has had no serious hypoglycemic episodes. Other medications include lisinopril/hydrochloro thiazide, allopurinol, and atorvastatin. Review of Systems Constitutional: no fever and no chills. Cardiovascular: no chest pain and no palpitations. Respiratory: no shortness of breath and no cough. Gastrointestinal: no nausea, no diarrhea and no vomiting. Active Problems Problems Allergic rhinitis (477.9) (J30.9) Anemia (285.9) (D64.9) Ankylosing spondylitis of thoracolumbar region (720.0) (M45.5) Asymptomatic hyperuricemia (790.6) (E79.0) Back pain (724.5) (M54.9) Benign essential hypertension (401.1) (I10) Class 2 obesity with body mass index (BMI) of 36.0 to 36.9 in adult (278.00,V85.36) (E66.9,Z68.36) Class 2 obesity with body mass index (BMI) of 37.0 to 37.9 in adult (278.00,V85.37) (E66.9,Z68.37) Diabetes mellitus, type 2 (250.00) (E11.9) DVT, bilateral lower limbs (453.40) (I82.403) Edema (782.3) (R60.9) Elevated CPK (790.5) (R74.8) Erectile dysfunction (607.84) (N52.9) Health maintenance examination (V70.0) (Z00.00) Hematuria (599.70) (R31.9) Hemochromatosis (275.03) (E83.119) High risk medication use (V58.69) (Z79.899) Hyperlipidemia (272.4) (E78.5) Hyperlipidemia LDL goal <100 (272.4) (E78.5) 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30) Resolved Date: 20 Jun 2021 History of Chronic venous hypertension with inflammation, left (459.32) (I87.322) Resolved Date: 20 Jun 2021 History of Chronic venous hypertension with ulcer and inflammation involving right side (459.33) (I87.331,L97.919) Resolved Date: 20 Jun 2021 History of Chronic venous insufficiency of lower extremity (459.81) (I87.2) Resolved Date: 20 Jun 2021 History of Ear, nose and throat disorder (478.9) (H93.90,J34.9,J39.2) History of Elevated uric acid in blood (790.6) (E79.0) Resolved Date: 20 Jun 2021 History of Hip pain, acute (719.45) (M25.559) Resolved Date: 20 Jun 2021 History of arthritis (V13.4) (Z87.39) History of bleeding disorder (V12.3) (Z86.2) History of herpes zoster (V12.09) (Z86.19) Resolved Date: 30 Nov 2020 History of hypertension (V12.59) (Z86.79) History of obesity (V12.29) (Z86.39) Resolved Date: 20 Jun 2021 History of Neck pain on right side (723.1) (M54.2) Resolved Date: 30 Nov 2020 History of Numbness and tingling (782.0) (R20.0,R20.2) History of Pain of right clavicle (733.90) (M89.8X1) Resolved Date: 30 Nov 2020 History of 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) (M16.12) Resolved Date: 20 Jun 2021 History of Right shoulder pain, unspecified chronicity (719.41) (M25.511) Resolved Date: 30 Nov 2020 History of Shoulder sprain (840.9) (S43.409A) Resolved Date: 20 Jun 2021 Surgical History Problems History of Back surgery History of Complete colonoscopy Managed By: Matthew AGUERO, Trisha Gamez (Internal Medicine) History of Hip replacement History of Inner Ear Surgery History of Spinal Arthrodesis History of Tonsillectomy Family History Mother No (more content not included)... Normal [facility] IO Hgb A1Con 12-26-2021 HbA1c (Bld) [Mass fraction] 7.5 % 4.2-6.5% [employer] Work Phone: IO glucose, blood, finger st ick via hand held monitoron 12-26-2021 Glucose [Mass/Vol] 152 mg/dL [employer] Work Phone: Tobacco Screening.on 022 Adult depression screening assessment No [facility] Phone: Fall risk assessment a) No falls within the last year [employer] Work Phone: Tobacco use status [facility] b) No [facility] Phone: ALBUMIN, URINE SPOTon 2021 ALBUMIN,URINE 8.6 mg/L Normal Not Established [facility] [place] Comment on above: Performed By: #### A LBSP #### [address] [address] ALBUMIN/CREAT RATIO 6.1 ug/mg 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 operator Normal 0.0 - 30.0 [facility] Comment on above: Performed By: #### A LBSP #### [address] [address] CREATININE,URINE 140.0 mg/dL Normal 20.0 - 370.0 [facility] [place] Comment on above: Performed By: #### A LBSP #### [address] [address] Laboratory - Chemistry and C hemistry - challengeon 12-20-2021 Albumin Ql (U) 8.6 mg/L See Below [employer] Phone: Comment on above: Reference Range: Not Established Albumin/Creatinine DL <= 20 mg/L (U) [Mass ratio] 6.1 {ug/mg_crt} 0.0 - 30.0 [employer] Work Phone: Creatinine (U) [Mass/Vol] 140.0 mg/dL See Below [employer] Work Phone: Comment on above: Reference Range: 20. 0 - 370.0 HM 50+ Yearson 12-06-2021 50+ Years Diagnoses/Problems Assessed Class 2 obesity with body mass index (BMI) of 36.0 to 36.9 in adult (278.00,V85.36) (E66.9,Z68.36) Health maintenance examination (V70.0) (Z00.00) Orders Class 2 obesity with body mass index (BMI) of 36.0 to 36.9 in adult Some eating tips that can help you lose weight.; Status:Complete; Done: 06Dec2021 Ordered; For:Class 2 obesity with body mass index (BMI) of 36.0 to 36.9 in adult; Ordered By:Phillip Bernal; Screening for colon cancer Cologuard Screening; Status:Active; Requested for:06Dec2021; Perform:Cologuard Non [facility]; Due:06Mar2022;Ordered; For:Screening for colon cancer; Ordered By:Phillip Bernal; Screening PSA (prostate specific antigen) Prostate Spec.Ag, Screen; Status:Active; Requested for:06Dec2021; Perform:Lab Services - Lab To Draw (Blood Test); Due:06Mar2022;Ordered; For:Screening PSA (prostate specific antigen); Ordered By:Phillip Bernal; Adult Risk Screening Advance Care Planning discussed and documented in the medical record, patient did not wish or was not able to name a surrogate decision maker or provide an advance care plan. Single alcohol screening question: In the past year the patient has had 5 or more drinks (men) or 4 or more drinks (women)? 0 time(s). Single substance abuse screening question: In the past year the patient has used a recreational drug or used a prescription drug for non-medical reasons? 0 time(s). History of Present Illness The last health maintenance visit was 1 year(s) ago. there are no concerns today. The patient's health since the last visit is described as good. There are no interval changes in the patient's PMH, PSH, and current medications. There are no interval changes in the patient's social and family history. he has regular dental visits. he denies vision problems. he denies hearing loss. Lifestyle: he consumes a diverse and healthy diet. he has weight concerns. he exercises regularly. he does not use tobacco. he consumes alcohol. Patient presenting wellness exam. Up-to-date with public records officer and his diplomatic interpreter/translator. We will get the PSA after the June date coming up. Has been able to maintain his weight had a hip replacement is doing well is continue with the physical therapy does have some workout equipment at home. Otherwise good health habits up-to-date with his medication. Presently does not wish a colonoscopy therefore getting the Cologuard at not take the place of it but it does help with above be sure he hears from me and proceed from there. Pleasant no apparent distress vital signs stable increased BMI is noted Neck supple no mass no thyromegaly lungs good auscultation heart normal S1-S2 without murmur thrill or rub 1. Annual wellness exam 2. Increased BMI diet modification weight loss possibility 3. Screening colonoscopy or Cologuard with above. 4. Hypertension control with above as is 5. Diabetes per diplomatic interpreter/translator questions concerns addressed proceed from there 'Scores and Scales' PHQ-9 [id number] 03:56PM PHQ-9 #10. If you checked off any problems, how difficult have these problems made it for you to do your work, take care of things at home, or get along with other people? PHQ-9 Depression Severity PHQ-9 #1. Little interest or pleasure in doing things0-Not at all PHQ-9 #2. Feeling down, depressed, or hopelesS0-Not at all PHQ-9 #3. Trouble falling or staying asleep, or sleeping too much0-Not at all PHQ-9 #4. Feeling tired or having little energy0-Not at all PHQ-9 #5. Poor appetite or overeating0-Not at all PHQ-9 #6. Feeling bad about yourself or you are a failure or that you have let yourself or your family down0-Not at all PHQ-9 #7. Trouble concentrating on things, such as reading the newspaper or watch television0-Not at all PHQ-9 #8. Moving or speaking so slowly that other people could have noticed. Or the opposite-being so fidgety or restless that you have been moving around a lot more than usual0-Not at all PHQ-9 #9. Thoughts that you would be better off , or of hurting yourself0-Not at all PHQ-9 Total Score (Please update problem list based on total score)0 Active Problems Problems Allergic rhinitis (477.9) (J30.9) Anemia (285.9) (D64.9) Ankylosing spondylitis of thoracolumbar region (720.0) (M45.5) Asymptomatic hyperuricemia (790.6) (E79.0) Back pain (724.5) (M54.9) Benign essential hypertension (401.1) (I10) Class 2 obesity with body mass index (BMI) of 37.0 to 37.9 in adult (278.00,V85.37) (E66.9,Z68.37) Diabetes mellitus, type 2 (250.00) (E11.9) DVT, bilateral lower limbs (453.40) (I82.403) Edema (782.3) (R60.9) Elevated CPK (790.5) (R74.8) Erectile dysfunction (607.84) (N52.9) Hematuria (599.70) (R31.9) Hemochromatosis (275.03) (E83.119) High risk medication use (V58.69) (Z79.899) Hyperlipidemia (272.4) (E78.5) Hyperlipidemia LDL goal <100 (272.4) (E78.5) 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 Normal [facility] Tobacco Screening.on 022 Adult depression screening assessment No [facility] Work Phone: Fall risk assessment a) No falls within the last year [facility] Work Phone: Tobacco use status [facility] b) No [facility] Work Phone: Follow Up (Endocrinology)on 09-05-2021 Follow Up (Endocrinology) Diagnoses/Problems Assessed Diabetes mellitus, type 2 (250.00) (E11.9) Hyperlipidemia (272.4) (E78.5) Benign essential hypertension (401.1) (I10) Orders Diabetes mellitus, type 2 Albumin, Urine Spot; Status:Active; Requested for:[id number]; Perform:Lab Services - Lab To Draw (Non-Blood Test); Due:04Dec2021;Ordered; For:Diabetes mellitus, type 2; Ordered By:Rudi Abdi; Patient Discussion/Summary Globin A1c has decreased marginally but he is determined to pursue his lifestyle modification program. He will return in 3 months with hemoglobin A1c at the visit. Lipids are addressed by his statin. Blood pressure is controlled. Chief Complaint Follow-up Type 2 diabetes History of Present IllnessHe continues glimepiride 4 mg pills, 1/2 pill twice daily, metformin 1000 mg pills, 1/2 pill twice daily, and Januvia 25 mg daily. He developed intolerable side effects with Jardiance. Weight is stable but he is determined to pursue weight loss with an exercise program and dietary restriction. He has had no hypoglycemic episodes. Other medications include metoprolol atorvastatin lisinopril hydrochlorothiazide Xarelto and allopurinol. Review of Systems Constitutional: no fever and no chills. Cardiovascular: no chest pain and no palpitations. Respiratory: No shortness of breath and no cough. Gastrointestinal: No nausea, no diarrhea and no vomiting. Active Problems Problems Allergic rhinitis (477.9) (J30.9) Anemia (285.9) (D64.9) Ankylosing spondylitis of thoracolumbar region (720.0) (M45.5) Asymptomatic hyperuricemia (790.6) (E79.0) Back pain (724.5) (M54.9) Benign essential hypertension (401.1) (I10) Class 2 obesity with body mass index (BMI) of 37.0 to 37.9 in adult (278.00,V85.37) (E66.9,Z68.37) Diabetes mellitus, type 2 (250.00) (E11.9) DVT, bilateral lower limbs (453.40) (I82.403) Edema (782.3) (R60.9) Elevated CPK (790.5) (R74.8) Erectile dysfunction (607.84) (N52.9) Hematuria (599.70) (R31.9) Hemochromatosis (275.03) (E83.119) High risk medication use (V58.69) (Z79.899) Hyperlipidemia (272.4) (E78.5) Hyperlipidemia LDL goal <100 (272.4) (E78.5) 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) Left hip pain (719.45) (M25.552) Low back pain (724.2) (M54.50) 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) Mixed hyperlipidemia (272.2) (E78.2) Multinodular goiter (241.1) (E04.2) Neuropathy (355.9) (G62.9) Never a smoker Other intervertebral disc degeneration, 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) Other screening mammogram (V76.12) (Z12.31) Pulmonary embolism (415.19) (I26.99) Screening PSA (prostate specific antigen) (V76.44) (Z12.5) Past Medical History Problems History of Chronic renal insufficiency, stage III (moderate) (585.3) (N18.30) Resolved Date: 20 Jun 2021 History of Chronic venous hypertension with inflammation, left (459.32) (I87.322) Resolved Date: 20 Jun 2021 History of Chronic venous hypertension with ulcer and inflammation involving right side (459.33) (I87.331,L97.919) Resolved Date: 20 Jun 2021 History of Chronic venous insufficiency of lower extremity (459.81) (I87.2) Resolved Date: 20 Jun 2021 History of Ear, nose and throat disorder (478.9) (H93.90,J34.9,J39.2) History of Elevated uric acid in blood (790.6) (E79.0) Resolved Date: 20 Jun 2021 History of Hip pain, acute (719.45) (M25.559) Resolved Date: 20 Jun 2021 History of arthritis (V13.4) (Z87.39) History of bleeding disorder (V12.3) (Z86.2) History of herpes zoster (V12.09) (Z86.19) Resolved Date: 30 Nov 2020 History of hypertension (V12.59) (Z86.79) History of obesity (V12.29) (Z86.39) Resolved Date: 20 Jun 2021 History of Neck pain on right side (723.1) (M54.2) Resolved Date: 30 Nov 2020 History of Numbness and tingling (782.0) (R20.0,R20.2) History of Pain of right clavicle (733.90) (M89.8X1) Resolved Date: 30 Nov 2020 History of 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) (M16.12) Resolved Date: 20 Jun 2021 History of Right shoulder pain, unspecified chronicity (719.41) (M25.511) Resolved Date: 30 Nov 2020 History of Shoulder sprain (840.9) (S43.409A) Resolved Date: 20 Jun 2021 Surgical History Problems History of Back surgery History of Complete colonoscopy Managed By: Matthew AGUERO, Trisha Gamez (Internal Medicine) History of Hip replacement History of Inner Ear Surgery History of Spinal Arthrodesis History of Tonsillectomy Family History Mother No pertinent family history Father No pertinent family history Sister Family history of thyroid disease (V18.19) (Z83.49) Paternal Grandmother Family history of diabetes mellitus (V18.0) (Z83.3) Family history of hypertension (V17.49) (Z82.49) Maternal Grandfather Family history of heart disease (V17.49) (Z82.49) Paternal Grandfather Family history of heart disease (V17.49) (Z82.49) Family history of myocardial infarction (V17.3) (Z82.49) Aunt Family history of cancer (V16.9) (more content not included)... Normal [facility] IO Hgb A1Con 09-05-2021 HbA1c (Bld) [Mass fraction] 7.8 % 4.2-6.5% [employer] Work Phone: IO glucose, blood, finger st ick via hand held monitoron 09-05-2021 Glucose [Mass/Vol] 97 mg/dL [employer] Work Phone: Tobacco Screening.on 022 Adult depression screening assessment No [employer] Phone: Fall risk assessment a) No falls within the last year [employer] Work Phone: Tobacco use status [facility] b) No [employer] Work Phone: Tobacco Screening. Yes [employer] Phone: Office Visit (Family Melany salguero)on 06-20-2021 Follow-up visit Diagnoses/Problems Class 2 obesity with body mass index (BMI) of 37.0 to 37.9 in adult (278.00,V85.37) (E66.9,Z68.37) Left hip pain (719.45) (M25.552) Hematuria (599.70) (R31.9) Benign essential hypertension (401.1) (I10) Orders Benign essential hypertension Start: Aspirin EC 81 MG Oral Tablet Delayed Release; TAKE 1 TABLET DAILY We recommend you modify your diet to achieve and maintain a healthy weight. Being underweight may increase your risk of developing health problems from vitamin and mineral deficiencies. We recommend a balanced diet rich in fruits and vegetables. You may; Status:Complete; Done: [id number] Unlinked Stop: Aspirin 81 MG TABS Chief Complaint JEFFERSON CARCAMO is here for a follow-up for . 6 month follow up History of Present Illness Patient is here for 1. Hematuria 2. Left hip pain status post replacement her last few months see below 3. Hypertension controlled with above 4. Increased BMI diet modification weight loss possibility. Patient was put on Jardiance. He knows about some of the side effects. He noticed last week that he had what he thought was blood in his urine on multiple occasions possibly little clot was seen in urgent care they checked a urine was negative at that time he is having no signs or symptoms no history of kidney stones no history of any bladder tumors that he is aware of. See medications as is. We still do not have an etiology for above. Has a chronic back pain but no history of kidney stones. Is followed by diplomatic interpreter/translator increase hemoglobin A1c noted PSA within normal limits copy report was given. Pleasant no apparent distress vital signs stable neck supple lungs good auscultation heart normal S1-S2 without murmur throughout back no CVA tenderness left hip slight tenderness over left greater trochanteric bursa area. Decreased abduction abduction and hyperflexion of the hip 1. Left hip status post replacement will see orthopedic surgeon who did that. There is seems definitely be a biomechanical muscular component but will have the other plain hip checked out no systemic signs or symptoms 2. Hematuria potentially names urologist given within normal PSA see urologist to see if we need ultrasound cystoscopy further evaluation with above 3. Hypertension control with above 4. Increased BMI diet modification weight loss possibility 5. Chronic anticoagulation also plays a role potentially what possibly could be going on with and or other we will follow-up in September for annual well and proceed from there. 'Scores and Scales' PHQ-9 [id number] 03:56PM PHQ-9 #10. If you checked off any problems, how difficult have these problems made it for you to do your work, take care of things at home, or get along with other people? PHQ-9 Depression Severity PHQ-9 #1. Little interest or pleasure in doing things0-Not at all PHQ-9 #2. Feeling down, depressed, or hopelesS0-Not at all PHQ-9 #3. Trouble falling or staying asleep, or sleeping too much0-Not at all PHQ-9 #4. Feeling tired or having little energy0-Not at all PHQ-9 #5. Poor appetite or overeating0-Not at all PHQ-9 #6. Feeling bad about yourself or you are a failure or that you have let yourself or your family down0-Not at all PHQ-9 #7. Trouble concentrating on things, such as reading the newspaper or watch television0-Not at all PHQ-9 #8. Moving or speaking so slowly that other people could have noticed. Or the opposite-being so fidgety or restless that you have been moving around a lot more than usual0-Not at all PHQ-9 #9. Thoughts that you would be better off , or of hurting yourself0-Not at all PHQ-9 Total Score (Please update problem list based on total score)0 Active Problems Allergic rhinitis (477.9) (J30.9) Anemia (285.9) (D64.9) Ankylosing spondylitis of thoracolumbar region (720.0) (M45.5) Back pain (724.5) (M54.9) Benign essential hypertension (401.1) (I10) Diabetes mellitus, type 2 (250.00) (E11.9) DVT, bilateral lower limbs (453.40) (I82.403) Edema (782.3) (R60.9) Elevated CPK (790.5) (R74.8) Erectile dysfunction (607.84) (N52.9) Hemochromatosis (275.03) (E83.119) High risk medication use (V58.69) (Z79.899) Hyperlipidemia (272.4) (E78.5) Hyperlipidemia LDL goal <100 (272.4) (E78.5) 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) Left hip pain (719.45) (M25.552) Low back pain (724.2) (M54.50) 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 Normal [facility] Tobacco Screening.on 022 Adult depression screening assessment No -[facility] DO Work Phone: Fall risk assessment a) No falls within the last year [facility] DO Work Phone: Tobacco use status [facility] b) No [facility] DO Work Phone: Prostate Spec.Ag, Screenon 0 06-18-2021 Prostate specific Ag [Mass/Vol] 2.90 ng/mL See Below [facility] DO Work Phone: Comment on above: Reference Range: 0.0 0 - 4.00The FDA requires that the method used for PSA assay be reported to the physician. Values obtained with different assay methods must not be used interchangeably. This test was performed at [facility] using the Repair Report PSA method, which is a sandwich immunoassay using chemiluminescence for quantitation. The assay is approvedfor measurement of prostate-specific antigen (PSA) in serum and may be used in conjunction with a digital rectalexamination in men 50 years and older as an aid in detection of prostate cancer. 6-Phiej-zpydzhgau inhibitors (e.g. Proscar, Finasteride, Avodart, Dutasteride and [place]) for the treatment of BPH have been shown to lower PSA levels by an average of 50% after 6 months of treatment. Follow Up (Endocrinology)on 05-23-2021 Follow Up (Endocrinology) Diagnoses/Problems Assessed Never a smoker Diabetes mellitus, type 2 (250.00) (E11.9) Benign essential hypertension (401.1) (I10) Hyperlipidemia (272.4) (E78.5) Orders Diabetes mellitus, type 2 Start: Jardiance 10 MG Oral Tablet; Take 1 tablet daily Rx By: Rudi Abdi; Dispense: 90 Days ; #:90 Tablet; Refill: 3;For: Diabetes mellitus, type 2; BASIM = N; Verified Transmission to [employer]; Last Updated By: Tashi ReelGenie; 05/23/2021 4:27:29 PM SocHx: Never a smoker Tobacco Use Screening; Status:Complete; Done: 23May2021 Perform:Not Applicable;Ordered; For:SocHx: Never a smoker; Ordered By:Gricel Rob; Patient Discussion/Summary Glycemic control is unchanged with hemoglobin A1c above target range. I discussed options and we agreed on a trial of an SGLT2 inhibitor. I transmitted a prescription for Jardiance 10 mg daily. We may need to adjust this based on insurance coverage. Otherwise he will return in 3 months with hemoglobin A1c at the visit. Blood pressure is controlled. Lipids are addressed by his statin. He will have laboratory evaluation through his primary physician later in the year. Chief Complaint Follow-up Type 2 diabetes History of Present IllnessHe feels well and has no complaints. He continues glimepiride 2 mg twice daily Metformin 500 mg twice daily and Januvia 25 mg daily. He tests his fingerstick glucose once daily at different times with readings generally in the low to mid 100s, occasionally over 200 mg/dL. He has had no hypoglycemic episodes. He has gained 5 pounds since last visit. Other medications include atorvastatin lisinopril hydrochlorothiazide and metoprolol. He is followed by multiple specialists. Review of Systems Constitutional: no fever and no chills. Cardiovascular: no chest pain and no palpitations. Respiratory: No shortness of breath and no cough. Gastrointestinal: No nausea, no diarrhea and no vomiting. Active Problems Problems Allergic rhinitis (477.9) (J30.9) Anemia (285.9) (D64.9) Ankylosing spondylitis of thoracolumbar region (720.0) (M45.5) Back pain (724.5) (M54.9) Benign essential hypertension (401.1) (I10) Chronic renal insufficiency, stage III (moderate) (585.3) (N18.30) Chronic venous hypertension with inflammation, left (459.32) (I87.322) Chronic venous hypertension with ulcer and inflammation involving right side (459.33) (I87.331,L97.919) Chronic venous insufficiency of lower extremity (459.81) (I87.2) Diabetes mellitus, type 2 (250.00) (E11.9) DVT, bilateral lower limbs (453.40) (I82.403) Edema (782.3) (R60.9) Elevated CPK (790.5) (R74.8) Elevated uric acid in blood (790.6) (E79.0) Erectile dysfunction (607.84) (N52.9) Hemochromatosis (275.03) (E83.119) High risk medication use (V58.69) (Z79.899) Hip pain, acute (719.45) (M25.559) Hyperlipidemia (272.4) (E78.5) Hyperlipidemia LDL goal <100 (272.4) (E78.5) 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) Left hip pain (719.45) (M25.552) Low back pain (724.2) (M54.50) 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) Mixed hyperlipidemia (272.2) (E78.2) Multinodular goiter (241.1) (E04.2) Neuropathy (355.9) (G62.9) Never a smoker Obesity (278.00) (E66.9) Other intervertebral disc degeneration, 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) Other screening mammogram (V76.12) (Z12.31) 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) (M16.12) Pulmonary embolism (415.19) (I26.99) Screening PSA (prostate specific antigen) (V76.44) (Z12.5) Shoulder sprain (840.9) (S43.409A) Past Medical History Problems History of Ear, nose and throat disorder (478.9) (H93.90,J34.9,J39.2) History of arthritis (V13.4) (Z87.39) History of bleeding disorder (V12.3) (Z86.2) History of herpes zoster (V12.09) (Z86.19) Resolved Date: 30 Nov 2020 History of hypertension (V12.59) (Z86.79) History of Neck pain on right side (723.1) (M54.2) Resolved Date: 30 Nov 2020 History of Numbness and tingling (782.0) (R20.0,R20.2) History of Pain of right clavicle (733.90) (M89.8X1) Resolved Date: 30 Nov 2020 History of Right shoulder pain, unspecified chronicity (719.41) (M25.511) Resolved Date: 30 Nov 2020 Surgical History Problems History of Back surgery History of Complete colonoscopy History of Hip replacement History of Inner Ear Surgery History of Spinal Arthrodesis History of Tonsillectomy Family History Mother No pertinent family history Father No pertinent family history Sister Family history of thyroid disease (V18.19) (Z83.49) Paternal Grandmother Family history of diabetes mellitus (V18.0) (Z83.3) Family history of hypertension (V17.49) (Z82.49) Maternal Grandfather Family history of heart disease (V17.49) (Z82.49) Paternal Grandfather Family history of heart disease (V17.49) (Z82.49) Family history of myocardial infarction (V17.3) (Z82.49) Aunt Family history of cancer (V16.9) (Z80.9) Social History Problems Never a s (more content not included)... Normal [facility] IO Hgb A1Con 05-23-2021 HbA1c (Bld) [Mass fraction] 7.9 % 4.2-6.5% [employer] Work Phone: IO glucose, blood, finger st ick via hand held monitoron 05-23-2021 Glucose [Mass/Vol] 130 mg/dL [employer] Work Phone: Tobacco Screening.on Adult depression screening assessment No [employer] Phone: Fall risk assessment a) No falls within the last year [employer] Phone: Tobacco use status [facility] b) No [employer] Phone: Established Visit (Orthopaed ic Surgery)on 04-13-2021 Established Visit (Orthopaedic Surgery) Diagnoses/Problems Assessed Back pain (724.5) (M54.9) Provider Impressions ASSESSMENT: This is a 60-year-old male who presents for followup after physical therapy. He is mostly pain-free. The flare up that he was having of his back pain is gone. He has some solid exercises that he is doing at home that he got from physical therapy. He does not feel the need to work this up further. He is happy with where he is at. TREATMENT PLAN: I think at this point we will just see him back as needed. He can engage in activities as tolerated. For complete plan details, please refer to Dr. Ludwig?s portion of this dictation. In a face to face encounter, I performed a history and physical examination, discussed pertinent diagnostics studies if indicated, and discussed diagnosis and management strategies with both the patient and the midlevel provider. I reviewed the midlevel?s note and agree with the documented findings and plan of care. Jefferson is here for a followup, doing well. He has no pain at all. His pain sort of resolved on its own, and he was doing some therapy as well. He was only having back pain. PLAN: We will let him engage in activity as tolerated and follow up with us on a p.r.n. basis. Chief Complaint F/U Lumbar after PT, doing about the same History of Present IllnessHarry is a followup after physical therapy. He was last seen in the office March 02, 2021. He was having mostly low back pain off and on most of his life. He was diagnosed at an early age with ankylosing spondylitis. He has had a flare up over the past couple of months and we sent him for physical therapy. He did five visits of physical therapy and got an extensive home workout regimen from physical therapy. He says his pain is gone right now. He is not having any pain; maybe just a very mild occasional ache, but nothing like what he was having. During physical therapy his flare up that he had, had already started to resolve, so he was fairly pain free during physical therapy as well. He is pretty happy with where he is now. He does not feel the need to work this up further or to get an MRI. He has no other complaints of issues at this visit. He denies any fever, chills, nausea, vomiting, or night sweats. He has no bowel or bladder complaints at this visit. Active Problems Problems Allergic rhinitis (477.9) (J30.9) Anemia (285.9) (D64.9) Ankylosing spondylitis of thoracolumbar region (720.0) (M45.5) Back pain (724.5) (M54.9) Benign essential hypertension (401.1) (I10) Chronic renal insufficiency, stage III (moderate) (585.3) (N18.30) Chronic venous hypertension with inflammation, left (459.32) (I87.322) Chronic venous hypertension with ulcer and inflammation involving right side (459.33) (I87.331,L97.919) Chronic venous insufficiency of lower extremity (459.81) (I87.2) Diabetes mellitus, type 2 (250.00) (E11.9) DVT, bilateral lower limbs (453.40) (I82.403) Edema (782.3) (R60.9) Elevated CPK (790.5) (R74.8) Elevated uric acid in blood (790.6) (E79.0) Erectile dysfunction (607.84) (N52.9) Hemochromatosis (275.03) (E83.119) High risk medication use (V58.69) (Z79.899) Hip pain, acute (719.45) (M25.559) Hyperlipidemia (272.4) (E78.5) Hyperlipidemia LDL goal <100 (272.4) (E78.5) 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) Left hip pain (719.45) (M25.552) Low back pain (724.2) (M54.50) 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) Mixed hyperlipidemia (272.2) (E78.2) Multinodular goiter (241.1) (E04.2) Neuropathy (355.9) (G62.9) Never a smoker Obesity (278.00) (E66.9) Other intervertebral disc degeneration, 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) Other screening mammogram (V76.12) (Z12.31) 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) (M16.12) Pulmonary embolism (415.19) (I26.99) Screening PSA (prostate specific antigen) (V76.44) (Z12.5) Shoulder sprain (840.9) (S43.409A) Past Medical History Problems History of Ear, nose and throat disorder (478.9) (H93.90,J34.9,J39.2) History of arthritis (V13.4) (Z87.39) History of bleeding disorder (V12.3) (Z86.2) History of herpes zoster (V12.09) (Z86.19) Resolved Date: 30 Nov 2020 History of hypertension (V12.59) (Z86.79) History of Neck pain on right side (723.1) (M54.2) Resolved Date: 30 Nov 2020 History of Numbness and tingling (782.0) (R20.0,R20.2) History of Pain of right clavicle (733.90) (M89.8X1) Resolved Date: 30 Nov 2020 History of Right shoulder pain, unspecified chronicity (719.41) (M25.511) Resolved Date: 30 Nov 2020 Surgical History Problems History of Back surgery History of Complete colonoscopy History of Hip replacement History of Inner Ear Surgery History of Spinal Arthrodesis History of Tonsillectomy Family History Mother No pertinent family history Father No pertinent family history Sister Family history of thyroid disease (V18.19) (Z83.49) Paternal Grandmother Family history of diabetes mellitus (V18.0) (Z83. (more content not included)... Normal [facility] Initial Visit (Orthopaedic S urgery)on 03-02-2021 Initial Visit (Orthopaedic Surgery) Diagnoses/Problems Assessed Low back pain (724.2) (M54.50) History of hypertension (V12.59) (Z86.79) History of bleeding disorder (V12.3) (Z86.2) History of Numbness and tingling (782.0) (R20.0,R20.2) History of Ear, nose and throat disorder (478.9) (H93.90,J34.9,J39.2) Back pain (724.5) (M54.9) Orders Low back pain Xray Lumbosacral Spine Min 4 View; Status:Complete; Done: 02Mar2021 04:22PM Radiologist to Determine Optimal Study : Y What are the patient's signs and symptoms? : pain Low back pain, Other intervertebral disc degeneration, lumbar region Physical Therapy - General Referral Evaluation and Treatment Evaluate AND Treat Status: Active Requested for: 02Mar2021 Provider Impressions ASSESSMENT: This is a 60-year-old gentleman sent over to us by Dr. Phillip Bernal. Dr. Phillip Bernal?s notes were reviewed in their entirety from 11/30/2020. TREATMENT PLAN: I think maybe a little physical therapy would help him. For complete plan details please refer to Dr. Ludwig's portion of this dictation. In a [id number] encounter, I performed a history and physical examination, discussed pertinent diagnostics studies if indicated, and discussed diagnosis and management strategies with both the patient and the midlevel provider. I reviewed the midlevel's note and agree with the documented findings and plan of care. Jefferosn is a new patient to me sent by Dr. Bernal. He has had low back pain for many years on and off since he was a young man as he was diagnosed with ankylosing spondylitis. However, he had a bad flareup in November of 2020 and got even worse over 2020. It has now settled down a little bit. It is mainly just back pain. He has had no treatments for it. X-rays show diffuse degenerative changes but no instability. He has a history of a noninstrumented fusion when he was a young child for the ankylosing spondylitis of his lumbar spine. I am not sure what that was but he said he was told it did not take. Plan: We will get him into some physical therapy, we will see him back in six weeks and see how he is doing. If he is no better at that point we may consider an MRI. 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 This is a 60-year-old male that has had some level of back pain off and on since he was about 14 years old. He has a history of ankylosing spondylitis that was diagnosed in his late teens and early 20s. While in high school he did have a noninstrumented fusion at 19 years old but after that surgery the doctors said that it did not ?take? because he was not getting any relief. It was only after that he was diagnosed with the ankylosing spondylitis. He has been living with this his whole life, but recently in November 2020 he started having flareups of medium to severe back pain, especially when waking up from a sleeping position. Warm showers tend to make this better, however, the back pain would flare up so bad that it took him an extreme amount of time just to get out of bed. of 2020 he had the worst flareup of back pain but now it seems to be resolving. He has been better now over the past two weeks, he is having minimal pain. He has no radicular pain, he never had any radicular pain. He has not had any physical therapy, he has not had any epidurals and no other surgeries other than the fusion in his back when he was 19 years old. He denies any fever, chills, nausea, vomiting or night sweats. He has no bowel or bladder complaints at this visit. Active Problems Problems Allergic rhinitis (477.9) (J30.9) Anemia (285.9) (D64.9) Ankylosing spondylitis of thoracolumbar region (720.0) (M45.5) Back pain (724.5) (M54.9) Benign essential hypertension (401.1) (I10) Chronic renal insufficiency, stage III (moderate) (585.3) (N18.30) Chronic venous hypertension with inflammation, left (459.32) (I87.322) Chronic venous hypertension with ulcer and inflammation involving right side (459.33) (I87.331,L97.919) Chronic venous insufficiency of lower extremity (459.81) (I87.2) Diabetes mellitus, type 2 (250.00) (E11.9) Edema (782.3) (R60.9) Elevated uric acid in blood (790.6) (E79.0) Hemochromatosis (275.03) (E83.119) Hip pain, acute (719.45) (M25.559) Hyperlipidemia (272.4) (E78.5) Hyperlipidemia LDL goal <100 (272.4) (E78.5) 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 Normal [facility] No Panel Informationon 03-02 Normal [facility] Work Phone: SPINE, LUMBOSACRAL MIN 4 VIE WSon 03-02-2021 SPINE, LUMBOSACRAL MIN 4 VIEWS Patient Name: JEFFERSON CARCAMO STUDY: SPINE, LUMBOSACRAL MIN 4 VIEWS; ; 03/02/2021 4:22 pm INDICATION: pain M54.50: Low back pain. ACCESSION NUMBER(S): [id number] ORDERING CLINICIAN: MARCO LUDWIG FINDINGS: AP lateral flexion extension x-rays lumbar spine show significant degenerative changes at L3-4 and moderate degenerative change at the other levels in the lumbar spine. There is some flattening of normal lumbar lordosis. There is anterior osteophyte formation most notable at L3-4 and L2-3. There is no scoliosis. There is no spondylolisthesis. There is no fractures. Range of motion with flexion extension is preserved but decreased from normal. Bony pelvis and hips are partially visualized on show a left hip replacement and moderate right hip arthritis. Electronically signed by: MARCO LUDWIG MD Normal [facility] Tobacco Screening.on 021 Fall risk assessment a) No falls within the last year [facility] DO Work Phone: Tobacco use status CPHS b) No [facility] DO Work Phone: Tobacco Screening. 0-Not at all formerly [facility] DO Work Phone: IO Hgb A1Con 11-22-2020 HbA1c (Bld) [Mass fraction] 7.9 % 4.4-6.4% [employer] Work Phone: IO glucose, blood, finger st ick via hand held monitoron 11-22-2020 Glucose [Mass/Vol] 164 mg/dL [facility] Work Phone: Tobacco Screening.on 021 Fall risk assessment a) No falls within the last year [employer] Work Phone: Tobacco use status CPHS b) No [employer] Work Phone: Outside Radiology Readon Outside Radiology Read This is a preliminary report only. This report will be final only after practitioner review and authentication has occurred. NAME: JEFFERSON CARCAMO MR#: [id number] DATE OF STUDY: 04/19/2020 RADIOLOGY REASON FOR X-RAY: Followup status post primary left total hip replacement for ankylosing spondylitis x4 weeks. X-RAYS OBTAINED: AP pelvis, AP lateral x-rays, left hip. FINDINGS: The patient has AP pelvis, AP lateral x-rays of the left hip. Since prior radiographs, he has undergone left total hip arthroplasty using uncemented acetabular and femoral components. Two screws have been used for supplemental fixation of the acetabular component. Stable fixation of components is noted. No major radiolucency seen. Leg lengths near equal. SI joints are fused and the flattening of the pelvis is all consistent with radiographic evidence for ankylosing spondylitis. IMPRESSION: Stable radiographic appearance, status post left total hip replacement. MD ELIANA OLEARY/AURELIOL/[id number] [facility] PT NAME: JEFFERSON CARCAMO MR#: [id number] [address] [place], [place] [address] ACCT: [id number] : 64 DOWNTIME RADIOLGY REPORT ADM DATE: Normal [facility] Anesthesia Noteon 03-24-2020 Anesthesia Note [facility] Patient: JEFFERSON CARCAMO [facility] [place] [id number] MR#: [id number] ANESTHESIA NOTE : Service Date: 03/24/20 0806 Post-anesthesia Note Note Patient assessed post operatively for the following: [X ] Respiratory function, including respiratory rate, airway patency and oxygen saturation [X ] Cardiovascular function, including pulse rate and blood pressure [X ] Mental status [X ] Temperature [X ] Pain [X ] Nausea and vomiting [X ] Postoperative hydration [X ] No Visual Changes Due to the following condition(s) additional monitoring may be necessary: [ ] [X ] No apparent anesthesia complications noted. [X ] Status as per pre-op Electronically Signed eSign Date and Time ClarenceKayleigh INFORMATION ANALYST-PATIENT SERVICES CLERK 03/24/20 0807 Ariel De La Garza MD Normal [facility] BASIC MET PANELon 03-24-2020 Anion gap [Moles/Vol] 10 mmol/L Normal 6-18 [facility] Comment on above: Order Comment: CONSE RVATION Performed By: #### L 500.68694, L500.54498, L500.29635 ####Test performed at: [place] [address] Calcium [Mass/Vol] 8.2 mg/dL Low 8.5-10.1 [facility] Comment on above: Order Comment: CONSE RVATION Performed By: #### L 500.32701, L500.30258, L500.74276 ####Test performed at: [place] [address] Chloride [Moles/Vol] 103 mmol/L Normal 98-107 [facility] Comment on above: Order Comment: CONSE RVATION Performed By: #### L 500.27795, L500.34647, L500.00653 ####Test performed at: [address] [address] CO2 [Moles/Vol] 29 mmol/L Normal 21-32 [facility] Comment on above: Order Comment: CONSE RVATION Performed By: #### L 500.90919, L500.25232, L500.82343 ####Test performed at: [address] [address] Creatinine [Mass/Vol] 1.380 mg/dL High 0.700-1.300 [facility] Comment on above: Order Comment: CONSE RVATION Performed By: #### L 500.27542, L500.32380, L500.80670 ####Test performed at: [address] [address] Glucose [Mass/Vol] 119 mg/dL High 70-99 [facility] Comment on above: Order Comment: CONSE RVATION Result Comment: Fast ing GLUCOSE reference range has been updated per (ADA) [place] [employer]'s recommendation. 05/12/2018 Performed By: #### L 500.32843, L500.06390, L500.79099 ####Test performed at: [address] [address] OSM 289 mosm/kg Normal 270-300 [facility] Comment on above: Order Comment: CONSE RVATION Performed By: #### L 500.08047, L500.61829, L500.86176 ####Test performed at: [address] [address] Potassium [Moles/Vol] 4.7 mmol/L Normal 3.5-5.1 [facility] Comment on above: Order Comment: CONSE RVATION Performed By: #### L 500.45887, L500.48341, L500.26341 ####Test performed at: [address] [address] Sodium [Moles/Vol] 137 mmol/L Normal 136-145 [facility] Comment on above: Order Comment: CONSE RVATION Performed By: #### L 500.10794, L500.91913, L500.82945 ####Test performed at: [address] [address] Urea nitrogen [Mass/Vol] 24 mg/dL High 7-18 [facility] Comment on above: Order Comment: CONSE RVATION Performed By: #### L 500.95040, L500.25332, L500.98671 ####Test performed at: [address] [address] CBC W/DIFFon 03-24-2020 Erythrocyte distribution width (RBC) [Ratio] 12.7 % Normal 11.5-14.5 [facility] Comment on above: Order Comment: Comme nts To Phleb: pre-op in PAT Performed By: #### L 200.77310 #### Test performed at: [address] [address] Hematocrit (Bld) [Volume fraction] 33.1 % Low 39.0-55.0 [facility] Comment on above: Order Comment: Comme nts To Phleb: pre-op in PAT Performed By: #### L 200.69743 #### Test performed at: [address] [address] Hemoglobin (Bld) [Mass/Vol] 11.0 g/dL Low 14.0-16.5 [facility] Comment on above: Order Comment: Comme nts To Phleb: pre-op in PAT Performed By: #### L 200.98279 #### Test performed at: [address] [address] MCH (RBC) [Entitic mass] 31.5 pg Normal 25.4-34.6 [facility] Comment on above: Order Comment: Comme nts To Phleb: pre-op in PAT Performed By: #### L 200.75405 #### Test performed at: [address] [address] MCHC (RBC) [Mass/Vol] 33.2 g/dL Normal 31.5-36.5 [facility] Comment on above: Order Comment: Comme nts To Phleb: pre-op in PAT Performed By: #### L 200.58627 #### Test performed at: [address] [address] MCV (RBC) [Entitic vol] 94.8 fL Normal 80.0-100.0 [facility] Comment on above: Order Comment: Comme nts To Phleb: pre-op in PAT Performed By: #### L 200.25648 #### Test performed at: [address] [address] NRBC # 0.000 K/uL Normal 0-0.012 [facility] Comment on above: Order Comment: Comme nts To Phleb: pre-op in PAT Performed By: #### L 200.62207 #### Test performed at: [address] [address] NRBC % 0.0 /100 WBC Normal 0-0.2 [facility] Comment on above: Order Comment: Comme nts To Phleb: pre-op in PAT Performed By: #### L 200.34528 #### Test performed at: [address] [address] Platelet mean volume (Bld) [Entitic vol] 10.5 fL Normal 8.7-12.4 [facility] Comment on above: Order Comment: Comme nts To Phleb: pre-op in PAT Performed By: #### L 200.19199 #### Test performed at: [address] [address] Platelets (Bld) [#/Vol] 242 10*3/uL Normal 140-440 [facility] Comment on above: Order Comment: Comme nts To Phleb: pre-op in PAT Performed By: #### L 200.66571 #### Test performed at: [address] [address] RBC (Bld) [#/Vol] 3.49 10*6/uL Low 3.5-5.5 [facility] Comment on above: Order Comment: Comme nts To Phleb: pre-op in PAT Performed By: #### L 200.71389 #### Test performed at: [address] [address] WBC (Bld) [#/Vol] 18.8 10*3/uL High 3.9-11.0 [facility] Comment on above: Order Comment: Comme nts To Phleb: pre-op in PAT Performed By: #### L 200.52038 #### Test performed at: [address] [address] Erythrocyte distribution width (RBC) [Ratio] 12.6 % Normal 11.5-14.5 [facility] Comment on above: Order Comment: CONSE RVATION Performed By: #### L 200.57304, L200.34025 ####Test performed at: [address] [address] Hematocrit (Bld) [Volume fraction] 29.4 % Low 39.0-55.0 [facility] Comment on above: Order Comment: CONSE RVATION Performed By: #### L 200.17357, L200.00514 ####Test performed at: [address] [address] Hemoglobin (Bld) [Mass/Vol] 9.7 g/dL Low 14.0-16.5 [facility] Comment on above: Order Comment: CONSE RVATION Result Comment: Delt a: 13.5 on 01/26/20-1526 Performed By: #### L 200.53469, L200.91240 ####Test performed at: [address] [address] MCH (RBC) [Entitic mass] 31.2 pg Normal 25.4-34.6 [facility] Comment on above: Order Comment: CONSE RVATION Performed By: #### L 200.43826, L200.55282 ####Test performed at: [place] [address] MCHC (RBC) [Mass/Vol] 33.0 g/dL Normal 31.5-36.5 [facility] Comment on above: Order Comment: CONSE RVATION Performed By: #### L 200.67597, L200.82467 ####Test performed at: [place] [address] MCV (RBC) [Entitic vol] 94.5 fL Normal 80.0-100.0 [facility] Comment on above: Order Comment: CONSE RVATION Performed By: #### L 200.48229, L200.84040 ####Test performed at: [place] [address] NRBC # 0.000 K/uL Normal 0-0.012 [facility] Comment on above: Order Comment: CONSE RVATION Performed By: #### L 200.99928, L200.82774 ####Test performed at: [place] [address] NRBC % 0.0 /100 WBC Normal 0-0.2 [facility] Comment on above: Order Comment: CONSE RVATION Performed By: #### L 200.67255, L200.67016 ####Test performed at: [place] [address] Platelet mean volume (Bld) [Entitic vol] 10.6 fL Normal 8.7-12.4 [facility] Comment on above: Order Comment: CONSE RVATION Performed By: #### L 200.84803, L200.47027 ####Test performed at: [address] [address] Platelets (Bld) [#/Vol] 210 10*3/uL Normal 140-440 [facility] Comment on above: Order Comment: CONSE RVATION Performed By: #### L 200.14396, L200.10468 ####Test performed at: [address] [address] RBC (Bld) [#/Vol] 3.11 10*6/uL Low 3.5-5.5 [facility] Comment on above: Order Comment: CONSE RVATION Performed By: #### L 200.17755, L200.40613 ####Test performed at: [address] [address] WBC (Bld) [#/Vol] 16.9 10*3/uL High 3.9-11.0 [facility] Comment on above: Order Comment: CONSE RVATION Performed By: #### L 200.36717, L200.63137 ####Test performed at: [place] [address] EST. CREAT CLRon 03-24-2020 Creatinine [Mass/Vol] 95.229 ML/MIN Normal [facility] Comment on above: Order Comment: Comme nts To Phleb: pre-op in PAT Result Comment: This result is an ESTIMATED blood creatinine clearance value which is derived from the patient age, sex, weight, and previous blood creatinine result. Performed By: #### L 200.62848 #### Test performed at: [place] [address] GFR ESTIMATEon 03-24-2020 IF AMER > 60 Normal > 60 [facility] Comment on above: Order Comment: Comme nts To Phleb: pre-op in PAT Result Comment: eGFR (Estimated GFR) Units of measure:mL/min/1.73 meters sq. *CALCULATION REVISED 12/06/2014;IDMS-traceable MDRD equation eGFR is derived from the reexpressed MDRD Study equation using the following parameters: serum creatinine, age, gender and race. An eGFR<60 mL/min/1.73m2 for >3 months is consistent with chronic kidney disease. Refer to KDOQI guidelines for clinical interpretation. Performed By: #### L 200.83364 #### Test performed at: [place] [address] IF non-AFR AMER 53 Low > 60 [facility] Comment on above: Order Comment: Comme nts To Phleb: pre-op in PAT Performed By: #### L 200.99074 #### Test performed at: [place] [address] GLUCOSE METERon 03-24-2020 Glucose [Mass/Vol] 262 mg/dL High 70-99 [facility] Comment on above: Order Comment: Comme nts To Phleb: pre-op in PAT Result Comment: Fast ing GLUCOSE reference range has been updated per (ADA) [place] [employer]'s recommendation. 05/12/2018 Performed By: #### L 200.31010 #### Test performed at: [place] [address] Glucose [Mass/Vol] 146 mg/dL High 70-99 [facility] Comment on above: Order Comment: Comme nts To Phleb: pre-op in PAT Result Comment: Fast ing GLUCOSE reference range has been updated per (ADA) [place] [employer]'s recommendation. 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 IM was consulted for medical management. Pt denies chest pain, headache, fever, chills, numbness and tingling. ROS: Pt is ambulating well, tolerating diet and voiding urine. Unremarkable. Objective Exam Vitals and I/O Vital Signs Verdana 4d Result Date Time Pulse Ox 100 03/23 2300 B/P 133/67 03/23 2300 O2 Delivery ROOM AIR 03/23 2300 Temp 36.4 03/23 2300 Pulse 95 03/23 2300 Resp 16 03/23 2300 O2 Flow Rate 2 03/23 1818 Intake AND Output Verdana 4d 03/24 2300 03/23 2300 Intake Total 2235 Output Total 900 Balance 1335 Intake, IV 1235 Oral 1000 utput, Urine 900 Patient 114 kg eight Weight PREADMISSION TESTING WGT easurement ethod General Appearance Alert, Oriented X3, Cooperative HEENT Atraumatic, Mucous Membr. 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 al Med Med Reasons/Tx for Con't stay Post-op Assessment #s/p Left total hip replacement- POD 1 - VSS - Denies any complaints - No drain or shin - Encourage incentive spirometry - PT/OT on board #Acute blood loss anemia - Hb 13.5 ->9.7 - EBL 310 cc intra-operatively - Continue to monitor #Leukocytosis possibly due to pre-op radiation - Afebrile - SIRS criteria 1/4 - WBC 16.9 ->18.8 with 19% ->12% bands - CXR showed no active disease - Ordered UA #Large granular leukemia under remission - As per patient public records officer suggested monitoring only #h/o DVT - Denies any complaints - Xarelto HELD, will resume on discharge #Obesity - BMI 35.1 - BMI places patient at increased risk for perioperative complications - Co-morbidities addressed, will continue to monitor closely. #DM-2 - BG this am 119 - ISS with accuchecks - Metformin on HOLD due to Creat 1.3 - Januvia 25 mg daily resumed - Amaryl 4 mg daily resumed - Continue to monitor #CKD - Creat 1.5 ->1.3 - Encourage hydration - Lactated ringers 100 cc/hr x 1 bag - Continue to monitor #HTN- well controlled - BP 133/67 - Metoprolol 25 mg daily - Lisinopril 20 mg daily - Vasotec 2.5 mg q6PRN - HCTZ on HOLD - Continue to monitor #Anxiety - Denies any palpitations or recent anxiety episodes - Continue to monitor #DVT ppx - PCD - Encourage ambulation - As per surgery Be sure to note changes Be sure to note changes DVT Prophylaxis PCD *Attending Attestation Attending Attestation Attending Attestation patient is doing well although he did not sleep very well Would resuem anticoagulation today mild acute blood loss anemia Obesity with BMI above 35 and comorbidities All pertinent elements of history and physical exam were confirmed by me. Agree with above documentation. medically stable for dc Electronically Signed eSign Date and Time Mayur Leo RES, Katarzyn a MD 03/26/20 1229 Normal [facility] MANUAL DIFFon 03-24-2020 BAND 12 % High 0-5 [facility] Comment on above: Order Comment: Comme nts To Phleb: pre-op in PAT Performed By: #### L 200.97195 #### Test performed at: [address] [address] Lymphocytes/100 WBC (Bld) 16 % Low 20-50 [facility] Comment on above: Order Comment: Comme nts To Phleb: pre-op in PAT Performed By: #### L 200.27326 #### Test performed at: [address] [address] MONOCYTE 6 % Normal 2-12 [facility] Comment on above: Order Comment: Comme nts To Phleb: pre-op in PAT Performed By: #### L 200.47835 #### Test performed at: [address] [address] NEUTROPHIL 66 % Normal 40-80 [facility] Comment on above: Order Comment: Comme nts To Phleb: pre-op in PAT Performed By: #### L 200.01370 #### Test performed at: [address] [address] Platelets (Bld) [#/Vol] ADEQ Normal [facility] Comment on above: Order Comment: Comme nts To Phleb: pre-op in PAT Performed By: #### L 200.05314 #### Test performed at: [address] [address] POLYCHROMASIA OCC Normal [facility] Comment on above: Order Comment: Comme nts To Phleb: pre-op in PAT Performed By: #### L 200.34558 #### Test performed at: [address] [address] RLYMPH OCC Normal [facility] Comment on above: Order Comment: Comme nts To Phleb: pre-op in PAT Performed By: #### L 200.25077 #### Test performed at: [address] [address] TOTAL CELLS 100 #CELLS Normal [facility] Comment on above: Order Comment: Comme nts To Phleb: pre-op in PAT Performed By: #### L 200.98779 #### Test performed at: [address] [address] BAND 19 % High 0-5 [facility] Comment on above: Order Comment: CONSE RVATION Performed By: #### L 200.54264, L200.02540 ####Test performed at: [address] [address] Basophils/100 WBC (Bld) 1 % Normal 0-1 [facility] Comment on above: Order Comment: CONSE RVATION Performed By: #### L 200.89742, L200.67435 ####Test performed at: [address] [address] Lymphocytes/100 WBC (Bld) 21 % Normal 20-50 [facility] Comment on above: Order Comment: CONSE RVATION Performed By: #### L 200.75470, L200.98573 ####Test performed at: [address] [address] MONOCYTE 6 % Normal 2-12 [facility] Comment on above: Order Comment: CONSE RVATION Performed By: #### L 200.57720, L200.94817 ####Test performed at: [address] [address] NEUTROPHIL 53 % Normal 40-80 [facility] Comment on above: Order Comment: CONSE RVATION Performed By: #### L 200.80163, L200.99046 ####Test performed at: [address] [address] Platelets (Bld) [#/Vol] ADEQ Normal [facility] Comment on above: Order Comment: CONSE RVATION Performed By: #### L 200.06610, L200.27574 ####Test performed at: [address] [address] POLYCHROMASIA OCC Normal [facility] Comment on above: Order Comment: CONSE RVATION Performed By: #### L 200.49718, L200.73178 ####Test performed at: [address] [address] TOTAL CELLS 100 #CELLS Normal [facility] Comment on above: Order Comment: CONSE RVATION Performed By: #### L 200.01895, L200.02346 ####Test performed at: [place] [address] OT Therapy Recommendationson 03-24-2020 OT Therapy Recommendations [facility] Patient: JEFFERSON CARCAMO [address] [place] [id number] MR#: [id number] OT THERAPY RECOMMENDATIONS : 64 Service Date: 03/24/20 1151 See Addendum Verdana 4d Therapy Recommendations Therapy Recommendations Recommendations HOME WITH FAMILY ASSISTANCE ADDENDUM: CRISTIANA COPPOLA on 03/24/20 at 1153 Addendum Add AND [facility]OT SERVICES Electronically Signed eSign Date and Time Cristiana Coppola OT 03/24/20 1153 Normal [facility] Orthopedic Progress Noteon 0 03-24-2020 Orthopedic Progress Note [facility] Patient: JEFFERSON CARCAMO [address] [place], [place] [address] MR#: [id number] PROGRESS NOTE - Orthopedic : 64 Service Date: 03/24/20 1230 Subjective Summary of Stay pod #1 lt anterior total hip replacement Events since last encounter none reported Subjective I dont have pain at this time General Denies Chills, Denies Night sweats, Denies Fatigue HEENT Denies Head Aches, Denies Visual Changes, Denies Post Nasal Drip, Denies Sore Throat Pulmonary Denies Dyspnea, Denies Cough Cardiovascular Edema (lt hip post op), Denies Chest Pain, Denies Palpitations Gastrointestinal Denies Nausea, Denies Vomiting, Denies Diarrhea, Denies Constipation Genitourinary Denies Dysuria, Denies Frequency, Denies Incontinence, Denies Retention Musculoskeletal Leg Pain (lt hippost op), Denies Neck Pain, Denies Shoulder Pain Neurological Denies Weakness, Denies Numbness, Denies Confusion Objective Exam Vitals and I/O Vital Signs Verdana 4d Result Date Time B/P 134/67 03/24 0953 Pulse 93 03/24 0953 Pulse Ox 100 02/05 0945 O2 Delivery ROOM AIR 03/24 944 Temp 36.4 03/24 944 Resp 20 03/24 944 O2 Flow Rate 2 03/23 1818 Intake AND Output Verdana 4d 03/24 2300 03/23 230 Intake Total 2235 Output Total 900 Balance 1335 Intake, IV 1235 Oral 1000 utput, Urine 900 Patient 114 kg eight Weight PREADMISSION TESTING WGT easurement ethod General Appearance Alert, Oriented X3, Cooperative HEENT PERRLA, Mucous Membr. moist/pink Lungs Normal Air Movement Neck Supple Cardiovascular Regular Rate Abdomen Soft, No Tenderness, No Masses Extremities No Clubbing, Normal Pulses, No Tenderness/Swelling Skin No Rashes, No Breakdown, No Significant Lesion Neurological Normal Gait, Normal Speech, Strength at 5/5 X4 Ext, Normal Tone, Sensation Intact Psych/Mental Status Mental Status NL, Mood NL Other Physical Findings Pt sitting uip in chair with mepilex dresing secure and intact. Ming noted to proximal dressing. ecchymotic at proximal incision Bilateral lower extremites warm and dry, palapbel pulses, wiggle toes, good sensation, plantar/dorsiflex bilaterally, push/pulls equal and strong Adequate pain control with oral pain meicaiton Pt up and ambualte with slow steady gait fwb with wheeled walker. Pt state has walker at home IS to 1500 SCD while in bed Cryotherapy to hip as needed Homegoing instructions given with good understanding. Vinod answered to pt satisfaction Dr Huffman aware of plan Ask medicine input for when start xarelto for home Results Results All Laboratory Tests 03/24 03/24 03/24 03/24 03/23 1139 1034 [id number] 0604 2023 Chemistry Sodium (136 - 145 mmol/L) 137 Potassium (3.5 - 5.1 mmol/L) 4.7 Chloride (98 - 107 mmol/L) 103 - 32 mmol/L) 29 BUN (7 - 18 mg/dL) 24 Creatinine (0.700 - 1.300 mg/dL) 1.380 Est GFR ( Amer) (> 60) > 60 Est GFR (Non-Af Amer) (> 60) 53 Glucose (70 - 99 mg/dL) 119 Glucose (70 - 99 mg/dL) 262 146 214 ematology WBC (3.9 - 11.0 K/uL) 18.8 16.9 Hgb (14.0 - 16.5 g/dL) 11.0 9.7 Hct (39.0 - 55.0 %) 33.1 29.4 Plt Count (140 - 440 K/uL) 242 210 03/23 2021 Chemistry POC Glucose (70 - 99 mg/dL) 224 Assessment and Plan - ICD10 Problem List 1. DVT (deep venous thrombosis) 2. Status post total replacement of left hip 3. 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 CKD (chronic kidney disease) 6. Anxiety Med Reasons/Tx for Con't stay dc home [facility] Assessment plan dc home [facility] pain medicaiton is dvt prophilaxis mobilize cryotherapy Electronically Signed eSign Date and Time SERGIO NGO 03/24/20 1237 Dinesh Huffman MD Normal [facility] PORTABLE CHESTon 03-24-2020 PORTABLE CHEST STUDY: PORTABLE CHEST; 03/24/2020 12:01 pm INDICATION: Leukocytosis. COMPARISON: 01/26/2020 ACCESSION NUMBER(S): [id number] ORDERING CLINICIAN: Mayur Leo FINDINGS: Unchanged blunting of the right costophrenic angle suggestive of scarring. Right pleural calcifications are again noted. No definite new infiltrate or pleural effusion. Unremarkable cardiomediastinal silhouette. No pulmonary vascular congestion. IMPRESSION: No new active disease in the chest. Normal [facility] Transfer From ([facility])on 03-24-2020 Transfer From ([facility]) From: [facility] Patient: JEFFERSON CARCAMO [address] [place] [address] Birthdate: [birth year] Age: 59 Attending Physician: Dinesh Huffman MD Sex: Male Primary Care: Giovanna Cook MD Admit Date: D/C date: Transfer Form (Phys Orders) Medical Information See Information Please do the discharge medication reconciliation first and then start the Transfer Form Disposition Home Health Care, Home Health Care RN, Home Health Aide Problem List Medical Problems Anxiety CKD (chronic kidney disease) Diabetes 1.5, managed as type 2 DVT (deep venous thrombosis) HTN (hypertension) Surgical Problems Status post total replacement of left hip Surgeries lt total hip anterior approach Allergies Coded Allergies: NO KNOWN DRUG ALLERGIES (08/28/14) Code Status FULL CODE Patient In Isolation: No RESISTANT ORGANISM No Date of Influenza Vaccine 62633 Physician Orders Prescriptions/Discharg e Meds Continue taking these medications: Glimepiride * (Amaryl *) 4 MG TABLET 4 MILLIGRAM ORAL EVERY DAY Comments: TAKE TOMORROW Allopurinol * (Zyloprim *) 300 MG TABLET 300 MILLIGRAM ORAL HS Comments: TAKE TONIGHT Diclofenac Sodium * (Voltaren *) 75 MG TABLET. 75 MILLIGRAM ORAL 2 TIMES DAILY WITH MEALS Lisinopril 20mg AND HCTZ 25mg * (Zestoretic 20mg/25mg *) 1 EACH TABLET 1 EACH ORAL Every Day @ 12 Noon Comments: TAKE TOMORROW Metformin HCl * (Glucophage *) 1,000 MG TABLET 500 MILLIGRAM ORAL 2 TIMES DAILY Comments: TAKE THIS EVENING Metoprolol Succinate* (Toprol XL*) 25 MG TABLET. 25 MILLIGRAM ORAL EVERY DAY Comments: TAKE TOMORROW sitaGLIPtin Phosphate * (Januvia *) 25 MG TABLET 25 MILLIGRAM ORAL DAILY WITH MEAL Comments: RESUME HOME SCHEDULE Cholecalciferol (Vitamin D3) (Vitamin D3) 25 MCG (1,000 UNIT) CAPSULE 25 MICROGRAM ORAL EVERY DAY Comments: TAKE TOMORROW Multivitamin, Therapeutic * (CENTRUM Complete *) 1 EACH TAB 1 TABLET ORAL EVERY DAY Comments: TAKE TOMORROW Atorvastatin Calcium * (Lipitor *) 10 MG TABLET 10 MILLIGRAM ORAL AT BEDTIME Comments: TAKE TONIGHT Start taking the following new medications: oxyCODONE HCl 5mg AND Acetaminophen 325mg * (Percocet 5mg/325mg Tablet *) 1 EACH TABLET 1 UD TABLET ORAL EVERY 4-6 HRS PRN as needed for post op pain Days = 7 Qty = 40 No Refills The following medications have been changed: Old: Rivaroxaban * (Xarelto *) 20 MILLIGRAM ORAL HS New: Rivaroxaban * (Xarelto *) 20 MG TABLET 20 MILLIGRAM ORAL HS Qty = 30 Instructions: Please resume on 03/25 in the evening Physical Therapy 5x/week Weight Bearing Status Full weight bearing Occupational Therapy 3x/week Speech Therapy No Wound Care Mepilex dressing for 7 days and remove May shower Respiratory Therapy Orders: Vent Settings: Vent/Wean Mode: PSV: Tidal Volume: PEEP: Vent Resp Rate: CPAP: Vent %FIO2: Diet DIABETIC/LOW CARB DIET Additional Orders NO bending, lifting twisting or crossing UPfor all meals Up and ambulate every hour Ankle pumps 100 times every hour Incentive spiroemter 10 times every hour Ice to hip as needed PT/OT Certify/Acknowledge Prognosis Good Rehab Potential Improve Certify/Acknowledge I certify that in-patient care is required at: [ ] Skilled level [ ] Intermediate level Expected length of stay: [ ] < 30 Days [ ] 31-180 Days [ ] >181 Days To the best of my knowledge, all information provided is a true and accurate reflection of the individuals condition. HOME WITH [facility] Electronically Signed eSign Date and Time SERGIO NGO 03/24/20 1442 Dinesh Huffman MD [facility] z OT Inpatient Evaluationon 03-24-2020 z OT Inpatient Evaluation [facility] Patient: JEFFERSON CARCAMO [address] [place] [address] MR#: [id number] OT INPATIENT EVALUATION : 64 Inpatient OT HPI Date of Service 03/24/20 Time In: 0845 Time Out: 0915 Total Treatment Time (Mins) 30 Visit Reason OTHER SECONDARY OA BOTH HIPS Surgery Type/Date POD#1Surgery Type: L ИВАН Anterior Approach Referral Date 03/23/20 Tx Diagnosis: PAIN IN L LEG Insurance Name [facility] Hospital Course Pt is a 59 year old male admitted for L anterior approach THR. Orders: LLE FWB, up ad raymundo /c assist, encourage adls. Pt supine when OT entered, pleasant and cooperative. 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 PT BROTHER TO ASSIST PRN DURING HIS RECOVERY PERIOD. Objective Precautions Total Hip Precautions Pain Scale 3 Pain Character Sore Pain Location Left Hip Equipment Peripheral IV, SCD Orientation Person, Place, Time, Situation Behavior Cooperative Sensation Within Functional Limits Tone Within Functional Limits Hand Dominance Right Coordination Coordination Within Functional Limits Proprioception Within Normal Limits ROM RUE ROM Within Functional Limits LUE ROM Within Functional Limits RLE ROM Within Functional Limits LLE ROM Within Functional Limits Strength RUE Strength 3+/5 LUE Strength 3+/5 RLE Strength 3+/5 LLE Strength 3/5 Comments Bilateral upper extremities WFLs for participation in management of ADLs and functional mobility tasks. Outcome Measures Na Score Na Score Response Value Feeding Independent 10 Bathing Independent 5 Grooming Independent 5 Dressing Independent 10 Bowels Continent 10 Bladder Continent 10 Toilet Independent 10 Transfer(Bed to Chair and Back) Minor Help 10 obility (On Level Surfaces) Independent 15 tairs Needs Help 5 otal 90 AM-PAC Inpt Daily Activity AM-PAC Inpt Daily Activity Response Value Lower Body Clothing A Little 3 Bathing None 4 Toileting None 4 Upper Body Clothing None 4 Personal Grooming None 4 Eating Meals None 4 Total 23 Comments 10% disability based on the Na Index ADL Function ADL Function Upper Body Dressing Modified Independent Lower Body Dressing Standby Assist Upper Body Bathing Modified Independent Lower Body Bathing Modified Independent Toileting Modified Independent Feeding Independent Grooming Modified Independent Comments Patient is independent/modified independent with all ADLs and functional mobility tasks. Patient instructed in and performed lower body dressing/ADLs via modified techniques and with long handled adaptive equipment Transfers Transfers Supine to Sit Modified Independent Sit to Stand Modified Independent Stand to Sit Modified Independent Sit to Supine Modified Independent Bed to Chair Modified Independent Chair to Bed Modified Independent Toilet Modified Independent Rolling Modified Independent Static Sitting Balance Good Dynamic Sitting Balance Good Static Standing Balance Good Dynamic Standing Balance Good Treatment Additional Minutes of Tx Performed 10 Remained in Chair All Needs Within Reach Yes Assessment/Plan for Inpt OT DC Recommendations Home W/Home Health Care, Family Assistance Topic #1 Rehabilitation Techniques Teaching Method: RETURN DEMONSTRATION Outcome: VERBALIZED/ADEQ TEACHBACK Comments Post Op precautions/issued packet with home going instructions and information regarding adaptive equipment and bathroom DME. Patient performed []. Problems ADL Skills, Activity Tolerance, Functional Mobility, Functional Balance Rehab Potential Good Treatment Tolerance Good Assessment Patient demonstrates limitations and decline from functional baseline due to post operative pain, weakness, and precautions. Patient was pleasant, alert, and cooperative throughout the session. Transfer in/out of bed with: Independent Complete UB dressing/bathing with: Independent Complete LB dressing/bathing with: MOD I Transfer in/out chair/toilet with: MOD I Attend to toilet tasks: Independent Increased Strength and Endurance >5 Mins Standing balance at sink during ADL 3-5 Mins Verbalize/demo THR precautions for ADLs and Transfers Patient Stated Goal: TO MOVE BETTER Goals discussed with: Patient Frequency of Therapy 3-5 Times/Week, PRN Duration Until Discharge Treatment Patient Education, Self Care/ADL Training Patient Status ACTIVE Eval Completed Yes Eval Complexity Low Complexity Treatment Performed Yes Electronically Signed eSign Date and Time Cristiana Coppola OT 03/24/20 1150 Normal [facility] z PT Inpatient Progress Note on 03-24-2020 z PT Inpatient Progress Note [facility] Patient: JEFFERSON CARCAMO [address] [place] [address] MR#: [id number] PT INPATIENT PROGRESS NOTE : 64 Service Date: 03/24/20 1401 Inpatient PT HPI Date of Service 03/24/20 Time In: 1005 Time Out: 1043 Total Treatment Time (Mins) 38 Room Number 618 Current Visit Patient is seated in the bedside chair upon arrival and pleasant. Patient is cleared for PT by nursing and identified by name and . Surgery Type: L ИВАН Anterior Approach Surgery Date: 03/23/20 Tx Diagnosis: UNSTEADINESS ON FEET Objective Pain Pain Scale 2 Pain Character Ache Pain Location L hip Comments Patient states pain is minimal at present time slightly increasing with ambulation. Precautions Total Hip Precautions (Anterior approach), Weight Bearing Status (FWB, LLE) Equipment Peripheral IV Treatment Inpatient PT Transfers Sit to Stand Standby Assist Stand to Sit Standby Assist Weight Bearing Full Weight Bearing (LLE) Comments Patient does not require any hands on assist for transfers this session. Patient wanting to remain in the chair at the end of the session and states he was able to get himself out of bed without hands on assist of staff. Gait Patient ambulated With Standby Assist With Assistive Device Wheeled Walker For (Feet) 75' x 2 Comments Patient ambulating with a slow, step to gait pattern with decreased step height/length L> R. Patient has a kyphotic posture and requires cues for maintaining a fwd gaze. Stairs Steps Up 6 Inch Steps 6 Steps Down 6 Inch Steps 6 Device Bilateral Handrail Pattern Non-Reciprocating Assistance Required With Contact Guard Assist, With Standby Assist Comments Patient with good return demo of stair training with minimal hands on assist. Patient with good retention of sequencing. Exercises Seated Exercises Toe Raises, Long Arc Quads, Hamstring Curl Comments x10ea BLE with verbal review of supine ther ex. Balance Exercises Sidestep, Retro Walking Balance Activities Patient demos good balance throughout all gait and transfers using a WW for support. Treatment Remained in Chair All Needs Within Reach Yes Treatment Time-Minutes Therapeutic Exercise 10 Gait Training 15 Therapeutic Activities 13 Total Treatment Time (Minutes) 38 Assessment/Plan for Inpt PT Discharge Recommendations Home W/Home Health Care Topic #1 Patient educated in gait, transfers, ther ex, stair training and precautions. Teaching Method: TEACHBACK Outcome: RETURN SKILL DEMO Problems Decreased Strength, Decreased Transfers, Decreased Ambulation, Decreased Balance, Decreased ROM, Difficulty with Stairs, Decreased Endurance, Decreased Safety, Pain Rehab Potential Good Treatment Tolerance Good Assessment Patient is making good progress toward all goals. Patient is able to increase gait distance and complete stair training with good return demo. Patient only requires minimal cues for posture/fwd gaze. Patient states he spoke with his sister and he will be borrowing his WW and does not need one vended. Patient given education for HEP and precautions. Safely transfer sup to sit: MOD I Safely transfer sit to stand: MOD I Safely Ambulate: MOD I (>/= 200' /s LOB, LLE FWB) Patient will perform stairs: MOD I (>/= 5 steps /c HR) Pt. will increase strength for improved transfer/gait stability, as per protocol Pt. will have: improved balance, as demo'd by gait goal above Pt. will tolerate dynamic dynamic functional activ., to increase endurance, >/= 30min therex, theract, or NMR /s rest breaks Patient Stated Goal: to go home Goals discussed with: Patient Frequency of Therapy: BID (PRN) Duration: UNTIL DISCHARGE Patient Status ACTIVE Treatment Performed Yes Comments Continue with POC Electronically Signed eSign Date and Time Jaja Pizano BOILER/CHILLER OPERATOR 03/24/20 9277 Adrian Andino PT Normal [facility] GLUCOSE METERon 03-23-2020 Glucose [Mass/Vol] 224 mg/dL High 70-99 [facility] Comment on above: Order Comment: CONSE RVATION Result Comment: Fast ing GLUCOSE reference range has been updated per (ADA) [place] [employer]'s recommendation. 05/12/2018 Performed By: #### L [id number] ####Test performed at: [place] [address] Glucose [Mass/Vol] 214 mg/dL High 70-99 [facility] Comment on above: Order Comment: CONSE RVATION Result Comment: Fast ing GLUCOSE reference range has been updated per (ADA) [place] [employer]'s recommendation. 05/12/2018 Performed By: #### L [id number] ####Test performed at: [place] [address] Glucose [Mass/Vol] 170 mg/dL High 7099 [facility] Comment on above: Order Comment: CONSE RVATION Result Comment: Fast ing GLUCOSE reference range has been updated per (ADA) [place] [employer]'s recommendation. 05/12/2018 Performed By: #### L [id number] #### Test performed at: [place] [address] Internal Medicine Consultati onon 03-23-2020 Internal Medicine Consultation [facility] Patient: JEFFERSON CARCAMO [address] [place] [address] MR#: [id number] CONSULTATION - Internal Medicine : 64 Service Date: 03/23/20 1611 History of Present Illness Referring Physician Dinesh Huffman MD Consulted Physician Camille Jones MD HPI Pt is a 59 CM with pmhx of HTN, DM2, CKD, Anxiety , DVT history and hx of cancer who is pOD for LTHR. IM was consulted for medical management. Pt was seen in PACU. Intraop EBL 310cc. Pt neurovascular was intact. Dressin clean, dry and no discharge. No Shin in place. Pt denies cp, headache, fever, chills, numbness and tingling. Pt denies Smoking. Pt took his metoprol this morning. Medical/Surgical History Past Medical History Transfusion Status CONSERVATION Transfusion Reaction NOT APPLICABLE Family/Social History Social History Amount *LIQUOR AND BEER 4 X WEEK How Often WEEKLY Allergies/Home Medications Allergies Coded Allergies: NO KNOWN DRUG ALLERGIES (08/28/14) Reconcile Medications Scheduled Medications Allopurinol * (Zyloprim *) 300 MG TABLET 300 MG PO HS, Ref 0 (Reported) Entered as Reported by SANYA ZAMBRANO on 01/26/201423 Last Action: Continued on 03/23/201614 by RAFFY AGGARWAL III Atorvastatin Calcium * (Lipitor *) 10 MG TABLET 10 MG PO QHS, Ref 0 (Reported) Entered as Reported by SANYA ZAMBRANO on 01/26/201428 Last Action: Held on 03/23/201612 by RAFFY AGGARWAL III Cholecalciferol (Vitamin D3) (Vitamin D3) 25 MCG (1,000 UNIT) CAPSULE 25 MCG PO DAILY, Ref 0 (Reported) Entered as Reported by SANYA ZAMBRANO on 01/26/201426 Last Action: Held on 03/23/201613 by RAFFY AGGARWAL III Diclofenac Sodium * (Voltaren *) 75 MG TABLET.DR 75 MG PO BIDWM ankylosing spondilitis, Ref 0 (Reported) Entered as Reported by SANYA ZAMBRANO on 01/26/201424 Last Action: Held on 03/23/201613 by RAFFY AGGARWAL III Glimepiride * (Amaryl *) 4 MG TABLET 4 MG PO DAILY, Ref 0 (Reported) Entered as Reported by SANYA ZAMBRANO on 01/26/201423 Last Action: Held on 03/23/201613 by RAFFY AGGARWAL III Lisinopril 20mg AND HCTZ 25mg * (Zestoretic 20mg/25mg *) 1 EACH TABLET 1 EACH PO DAILY@12N , Ref 0 (Reported) Entered as Reported by SANYA ZAMBRANO on 01/26/201424 Last Action: Converted on 03/23/201613 by RAFFY AGGARWAL III Metformin HCl * (Glucophage *) 1,000 MG TABLET 500 MG PO BID, Ref 0 (Reported) Entered as Reported by SANYA ZAMBRANO on 01/26/201425 Last Action: Continued on 03/23/201613 by RAFFY AGGARWAL III Metoprolol Succinate* (Toprol XL*) 25 MG TABLET.DR 25 MG PO DAILY, Ref 0 (Reported) Entered as Reported by SANYA ZAMBRANO on 01/26/201425 Last Action: Continued on 03/23/201612 by RAFFY AGGARWAL III Multivitamin, Therapeutic * (CENTRUM Complete *) 1 EACH TAB 1 TAB PO DAILY, Ref 0 ( Reported) Entered as Reported by SANYA ZAMBRANO on 01/26/201426 Last Action: Held on 03/23/201613 by RAFFY AGGARWAL III Rivaroxaban * (Xarelto *) 20 MG TABLET 20 MG PO HS, Ref 0 (Reported) Entered as Reported by SANYA ZAMBRANO on 01/26/201422 Last Action: Held on 03/23/201612 by RAFFY AGGARWAL III sitaGLIPtin Phosphate * (Januvia *) 25 MG TABLET 25 MG PO DAILYWM, Ref 0 (Reported) Entered as Reported by SANYA ZAMBRANO on 01/26/201426 Last Action: Held on 03/23/201613 by RAFFY AGGARWAL III Review of Systems Review of Systems Constitutional Denies: Fever, Fatigue, Chills. Pulmonary Denies: Dyspnea. GI Denies: Abdominal Pain, Nausea, Vomiting. Musculoskeletal Reports: Lower Extremity Pain. Neuro Denies: Headache, Syncope. Physical Exam Vital Signs Vital Signs Vital Signs Verdana 4d Result Date Time Pulse Ox 96 03/23 1017 B/P 134/74 03/23 1017 Temp 36.0 03/23 1017 Pulse 89 03/23 1017 Resp 16 03/23 1017 Appearance Appearance Appears well, Awake, Alert, No distress Cm: 180.34 Wt-K.000 BMI 35 Patient is Overweight Pain Scale 6 Neck Neck No JVD, Supple HEENT HEENT Eyes normal inspection, PERRLA Respiratory Respiratory Respirations non-labored CVS Cardiovascular Normal heart sounds, Pulses full, equal Neuro * Document results of Cranial Nerve Asmt for all BH pts. Extremity Extremity Sensation intact, No tenderness, No pedal edema Assessment/Plan Assessment and Plan #POD0 for LTHR #Acute blood loss anemia * Pt denies CP, SOB, headache, numnbess and tinling * Intraop ebl 310cc * exam: neurovasc intact, dressing clean dry and intact. no drain. No shin * plan: * h AND H * monitor * pain and anticoagulation per ortho #DM2 #HTN #Anxiety * pt took metoprolol in monring * plan: * ISS low dose and acchecks * hold HCTZ and metoprolol unitl morning * vasotec PRN * will resume metformin and other oral DM in the morning (januvia and amaryl) Electronically Signed eSign Date and Time Aggarwal III,Raffy Res 03/24/20 4697 Camille Jones MD [facility] OPERATIVE REPORTon OPERATIVE REPORT NAME: JEFFERSON CARCAMO MR#: [id number] SURGEON: Dinesh Huffman MD DATE OF SURGERY: 03/23/2020 OPERATIVE REPORT PREOPERATIVE DIAGNOSIS: Severe arthritic involvement, left hip joint. Patient with underlying ankylosing spondylitis. POSTOPERATIVE DIAGNOSIS: Severe arthritic involvement, left hip joint. Patient with underlying ankylosing spondylitis. OPERATION PERFORMED: Left total hip replacement, uncemented, direct anterior approach. SCRUMMASTER: Kelby Bishop. ANESTHESIA: General. FINDINGS: Patient is a 59-year-old male with ankylosing spondylitis, on anti- inflammatory medications and immunosuppressives. He has a history of DVT and pulmonary embolism and in addition to mild neuropathy, mild kidney disease, diabetes, history of leukemia, and chronic venous insufficiency, he has a history of pulmonary embolism. He developed progressive pain and disability in his left hip, particularly increased in the last 6-12 months. This became severely limiting and he was referred for evaluation. Because of his ankylosing spondylitis, he was offered hip arthroplasty, but advised to consider radiation therapy for prevention of heterotopic ossification. This was performed preoperatively. At the time of surgery, inflammatory changes around the hip joint were noted. There were severe articular surface deficits including complete eburnation with secondary chronic changes noted around the hip joint. Bone quality was mildly osteopenic. Replacement was performed using components from [employer]. The 52 mm outer diameter shell was placed in approximately 40 degrees of abduction and 15 degrees of anteversion diameter liner was placed. Final component position approximately 40 degrees of abduction and 15 degrees of anteversion. On the femoral side, an Alteon STAHL coated stem collared in nature with a #10 lateral offset with a +3.5 x 32 head segment was used. At conclusion of the procedure, fit, stability, and range of motion was confirmed with no evidence of impingement and leg lengths were restored. DESCRIPTION OF PROCEDURE: The patient under routine general anesthesia and patient positioned supine on the Gilbert table, the left hip was prepped and draped for total hip replacement through a direct anterior approach. A formal time-out was performed and agreed to by all parties. Once agreed to, the hip [facility] PT NAME: JEFFERSON CARCAMO MR#: [id number] [address] [place] [address] ACCT: [id number] : 64 OPERATIVE REPORT was approached starting in oblique incision over the tensor fascia femorals muscle approximately 3 cm lateral and distally ASIS and carrying obliquely. The subcutaneous tissue was divided down to the superficial investing fascia, which was divided. The fascia over the tensor fascia femoris was then divided and the muscle freed from the fascia and retracted laterally and the fascia medially. The interval between the tensor and the rectus deeply was identified. The anterior circumflex vessels were isolated, clamped, coagulated, divided, and re-coagulated with the Aquamantys. Once control of these vessels was achieved, the fascia behind these vessels was divided, the pericapsular fat visualized and excised after pretreatment with the Aquamantys. The capsule inferiorly, superiorly and medially was then fully visualized and retractors positioned. Inferior capsulectomy and superior capsulectomy were then performed. Retractors were removed intracapsular and once full visualization of the neck was achieved, the inferior capsule was released, external rotation was applied to the femur up to 90 degrees and the capsule pushed away from the neck and the back of the neck skeletonized. A deep blunt retractor was placed and the hip returned to neutral rotation. Release #2 in the Irby Casas interval was followed by release #3 in the up- sweep of the femoral neck. Neck osteotomy was performed and the head-neck segment removed. After circumferential capsulectomy around the rim of the socket, the soft tissue in the acetabular fossa were visualized, was removed, but largely this had been retracted . Bone quality at acetabulum was moderately osteopenia. Reaming started first with a straight reamer subsequently up to a 52 mm outer diameter reamer and appropriate abduction and anteversion as determined using the image intensifier and the Innomed device. A trial 52 component was placed and found to fit satisfactorily. The true implant was obtained, placed with the offset impactor and seated fully with a straight impactor. Two screws were used for supplemental fixation. A neutral liner was obtained, placed within the acetabular shell and impacted and seated. No overhanging bone anterior or superiorly was remained nor was inferior bone. Posteriorly, some of this bone remained for posterior protection. Attention was then turned to placement of the femur. With the hip in maximum external rotation, 45 degrees of extension, a bone hook was placed in the neck of the femur at 6 o'clock around the face of the femoral neck and with traction on this bone hook, release was performed at 11 o'clock bringing the femur anterior to the acetabulum. Once this was completed, the leg was dropped to full extension and adduction, the box osteotome was used to enter the lateral neck and the metaphysis of the upper femur. The curved curette was used to identify the canal and the chili-pepper broach to identify the angle of broaching. This was quickly followed by broaching up to the #9 broach, which was seated. Calcar planing was performed, the trial neck-head segment placed, the hip brought out of adduction and extension with traction and internal rotation was reduced. Based on image evaluation, it was elected to upsize the femoral component 1 size from this #9 lateral offset, the slightly longer length. Once determined, the hip was dislocated. Additional broaching performed. A #10 broach was seated. Calcar planing was performed. The lateral neck and head segment were placed, the hip brought out of adduction and extension with [facility] PT NAME: JEFFERSON CARCAMO MR#: [id number] [address] [place] [address] ACCT: [id number] : 64 OPERATIVE REPORT traction and internal rotation was reduced. Stability and leg lengths were restored. These components were selected. The hip was then dislocated by external rotation and traction. With full external rotation and absence of traction, the leg was dropped to full extension and adduction and the trials removed. The true stem was placed within the canal and fully seated using the appropriate impactor. The tape was cleaned and dried and a +3.5 x 32 Biolox delta head segment was then impacted on a clean, dry taper. This was followed by bringing the leg out of adduction and extension. With traction and internal rotation, the hip was reduced. It remained stable throughout arc of motion and was not unstable with the leg in external rotation. There was no impingement. After irrigation, local anesthetic was instilled broadly around the entire hip joint followed by closed over the tensor fascia femorals with #1 Vicryl. This was followed by 2-0 Vicryl and subcuticular 4-0 Vicryl. A sterile compressive dressing completed the procedure. Dressing was placed over excoriation around the groin crease above this incision. The anesthesia was then terminated. The patient then transferred to recovery room and he tolerated the procedure well. DINESH HUFFMAN MD [facility]/[id number] E/S: Dinesh Huffman MD 03/24/20 1033 Electronically Signed [facility] PT NAME: JEFFERSON CARCAMO MR#: [id number] [facility] [place] [address] ACCT: [id number] : 64 OPERATIVE REPORT Normal [facility] PELVIS 1 OR 2 VIEWSon 2020 PELVIS 1 OR 2 VIEWS STUDY: PELVIS 1 OR 2 VIEWS; 03/23/2020 4:35 pm INDICATION: S/P LEFT TOTAL HIP REPLACEMENT. COMPARISON: None. ACCESSION NUMBER(S): [id number] ORDERING CLINICIAN: Annie Aguilar FINDINGS: Left hip arthroplasty in anatomic alignment. Postoperative soft tissue gas. Upper pelvis not imaged. IMPRESSION: New left hip arthroplasty in anatomic alignment. Normal [facility] PT Therapy Recommendationson 03-23-2020 aPTT Coag (Nicole) [Time] [facility] Patient: JEFFERSON CARCAMO [address] [id number] MR#: [id number] PT THERAPY RECOMMENDATIONS : 64 Service Date: 03/23/201846 Therapy Recommendations Therapy Recommendations Recommendations Physical therapy evaluation completed. Will follow per acute PT plan of care BID, PRN. Rec D/C HHPT. VILMA Mendez Electronically Signed eSign Date and Time Antony Maynard PT Student 03/23/201846 Adrian Andino PT 03/23/20 184 Normal [facility] Primary Residenton 1 Primary Resident [facility] Pt Name: JEFFERSON CARCAMO MR#: [id number] [address] ACCT: [id number] [place] [address] : 64 Service Date: 03/23/20 1626 Primary Resident/Call Primary Resident: Ngoc Leo After Hours Call: [phone] Red Team Electronically Signed eSign Date and Time Aggarwal III,Raffy Res 03/23/20 1627 Normal [facility] SURGon 03-23-2020 SURG Normal [facility] Comment on above: Result Comment: RUN DATE: 03/28/20 [facility] LAB *LIVE* PAGE 1RUN TIME: 1541 Specimen InquiryRUN USER: [employer] Info Name: JEFFERSON CARCAMO : 64 Sex:M Attend Dr: Dinesh Huffman [facility]#: [id number] Unit#: [id number] Status: DIS IN Location: Anthony GDonovan618-01 Received: 03/24/20 Status: CLAUDIA Santoro#: [id number]#: [id number] Collected: 03/23/20- [facility] Dr: Dinesh Huffman MDTISSUES: A. LEFT HIP BONE & TISSUE MICROSCOPIC EXAM: Two H&E stained slides including sections of decalcified tissue are examined. DIAGNOSIS: BONE AND TISSUE FROM LEFT HIP, TOTAL HIP REPLACEMENT: - DEGENERATIVE JOINT DISEASE Signed Signature on File MYKETOMA Franco 03/28/[address] [facility] Name: JEFFERSON CARCAMO [facility] Hosp Num: [id number] A Ministry of Age / Sex: 59/M [facility] Physician: [place] [address] [place] [address] Location: 6A SPINE/ORTHO UNIT END OF REPORT Performed By: #### L 500.98213, L500.55705 #### Test performed at: [place] [address] TSon 03-23-2020 ABO and Rh group Nom (Bld) A POSITIVE Normal [facility] Comment on above: Order Comment: CONSE RVATION CBN: NO Kim: MAIN Transfusion Status: CONSERVATION Blood Bank service requested: TYPE AND SCREEN Comments To Phleb: PATIENT IN SDS Performed By: #### B 100.0200 #### Test performed at: [place] [address] z PT Inpatient Evaluationon 03-23-2020 z PT Inpatient Evaluation [facility] Patient: JEFFERSON CARCAMO [address] [place] [address] MR#: [id number] PT INPATIENT EVALUATION : 64 Service Date: 03/23/201827 Inpatient PT HPI Date of Service 03/23/20 Time In: 1809 Time Out: 1825 Total Treatment Time (Mins) 16 Room Number 618 Visit Reason OTHER SECONDARY OA BOTH HIPS Surgery Type: L ИВАН Anterior Approach Surgery Date: 03/23/20 Referral Date 03/23/20 Tx Diagnosis: UNSTEADINESS ON FEET Insurance Name [facility] Hospital Course Pt is a 59 year old male admitted for L anterior approach THR. Orders: LLE FWB, up ad raymundo /c assist, encourage ambulation/calf/ankle exercises. Pt supine when PT entered, pleasant and cooperative. Moving well. Past Medical/Social History Functional Level Living Arrangements Apartment Lives With Self Mobility Aids Cane ADL Equipment R handed, Standard toilet height, Hip kit, shower chair Steps to Enter House 15 Stairs Inside House 0 Railings B/L Handrail Functional Level Pt reporting living in home setup above, states has support PRN. Pt reporting ambulating / c SP cane, denies falls. Pt reporting MOD I for ADLs/IADLs. States ground level setup. 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 Objective Pain Pain Scale 0 Comments Pt reporting no pain as stated above Precautions Total Hip Precautions (Anterior Approach), Weight Bearing Status (LLE FWB) Equipment Peripheral IV, O2, BP cuff, SCD Static Sitting Balance Within Functional Limits Dynamic Sitting Balance Within Functional Limits Static Standing Balance Impaired, Fair (s/p sx LLE) Dynamic Standing Balance Impaired, Fair (s/p sx LLE) Comments Pt using SBA /c loaner wheeled walker this date. Orientation Person, Place, Time, Situation Behavior Within Functional Limits Sensation Reports some numbness in LLE Tone Impaired (LLE s/p sx) Endurance Fair Posture WFL, Pt is 5'11 and 251# Wound/Skin Dressing /c strikethrough, no drainage noted Coordination Coordination Minimally Impaired ROM RUE ROM: WITHIN FUNCTIONAL LIMITS LUE ROM: WITHIN FUNCTIONAL LIMITS RLE ROM: WITHIN FUNCTIONAL LIMITS LLE ROM: 75% OF NORMAL RANGE Comments Pt /c full AROM of L knee and ankle, but hip somewhat limited due to pain and surgical precautions this date. Strength RUE Strength: WITHIN FUNCTIONAL LIMITS LUE Strength: WITHIN FUNCTIONAL LIMITS RLE Strength: WITHIN FUNCTIONAL LIMITS LLE Strength: 3-/5 Outcome Measures AM-PAC Inpatient Mobility AM-PAC Inpatient Mobility Response Value Turn Back/Side While Flat WO Bedrails A Little 3 Move From Lying to Side of Bed WO Bedrails A Little 3 Move To/From Bed to Chair A Little 3 Arms A Little 3 alk in Hospital Room A Little 3 Climb 3-5 Steps W Railing A Little 3 Total 18 Mobility Transfers Supine to sit Standby Assist Sit to supine Standby Assist Sit to Stand Standby Assist Stand to Sit Standby Assist Weight Bearing LLE FWB Comments Pt needing no hands on assist for transfers but increased time and needing increased cues for form. Pt performing sit<>stand /c SBA and cuing, needing cues for sequencing, hand placement, precautions follow, breathing, and form. Slightly slowed completion, reinforced safety and precautions throughout. Pt moving well overall, no LOB. Gait Patient ambulated With Standby Assist With Assistive Device Wheeled Walker For (Feet) 5' Comments Pt ambulating a few steps from EOB back to bed. Needing cues for hand placement, breathing , and sequencing. No LOB. No gross gait deviations, pt noted slight dizziness. Stairs Comments Not attempted due to patient fatigue and weakness. Treatment Additional Minutes of Tx Performed 10 Remained in Supine All Needs Within Reach Yes Comments Issued Home exercise program/Precautions packet for THR - anterior approach, reviewed /c pt. Increased time for education of plan of care and progression of therapy. Increased education about weight bearing status, D/C rec, and safety Past Medical/Social History Problem List Medical Problems DVT (deep venous thrombosis) Surgical Problems Status post total replacement of left hip Objective Precautions Total Hip Precautions (Anterior approach), Weight Bearing Status (FWB, LLE) Mobility Transfers Weight Bearing Full Weight Bearing (LLE) Assessment/Plan for Inpt PT Discharge Recommendations Home W/Home Health Care Topic #1 Rehab techniques Plan of care D/C rec Mobility Transfers Gait Safety Weight bearing Precautions Teaching Method: TEACHBACK Teaching Method: DEMONSTATION Outcome: RETURN SKILL DEMO Problems Decreased Strength, Decreased Transfers, Decreased Ambulation, Decreased Balance, Decreased ROM, Difficulty with Stairs, Decreased Endurance, Decreased Safety, Pain Rehab Potential Good Treatment Tolerance Good Assessment Pt participating as able this session. Limited in AROM and strength of sx LE s/p surgery. Needing no true hands on assist throughout session for transfers and gait, anticipate good progression. Needing increased PT for addressing functional deficits, anticipate HHPT as next level of care. Likely needing vending of device prior to D/C home. Safely transfer sup to sit: MOD I Safely transfer sit to stand: MOD I Safely Ambulate: MOD I (>/= 200' /s LOB, LLE FWB) Patient will perform stairs: MOD I (>/= 5 steps /c HR) Pt. will increase strength for improved transfer/gait stability, as per protocol Pt. will have improved balance, as demo'd by gait goal above Pt. will tolerate dynamic dynamic functional activ., to increase endurance, >/= 30min therex, theract, or NMR /s rest breaks Goals discussed with: Patient Patient Stated Goal: to go home Frequency of Therapy: BID (PRN) Duration: UNTIL DISCHARGE Patient Status ACTIVE Eval Completed Yes Eval Complexity Low Treatment Performed Yes Electronically Signed eSign Date and Time Antony Maynard PT Student 03/23/20 1847 Adrian Andino PT 03/23/20 1850 Normal [facility] CORONAVIRUSon 03-20-2020 CORONAVIRUS Methodology: PCR Negative results do not preclude SARS-CoV-2 infection and should not be used as the sole basis for patient management decisions. Negative results must be combined with clinical observations, patient history, and epidemiological information. False-negative results may occur if the viruses are present at a level that is below the analytical sensitivity of the assay or if the virus has genomic mutations, insertions, deletions, or rearrangements or if performed very early in the course of illness. Results may be affected by the quality of the sample collected. [employer]plex[employer] COVID-19 Direct is only for use under the Food and Drug Administration's Emergency Use Authorization. The [employer]plexa COVID-19 Direct Letter of Authorization, along with the authorized Fact Sheet for Healthcare Providers, the authorized Fact Sheet for Patients, and authorized labeling are available on the FDA website: https://www.fda.gov/Me dicalDevices/Safety/ EmergencySituations/uc u110626.htm COVID-19 Negative for COVID-19 (SARS-CoV-2 RNA) Normal [facility] Comment on above: Order Comment: CBN: YES Kim: MAIN COVID Testing: PRE-OP/PROCEDURE SCREEN Comment: 03/23 AGE at Spec LIAM 59 Report age at specimen LIAM? Y First test: UNKNOWN Employed in Healthcare: NO Symptomatic as defined by CDC: NO Hospitalized for COVID-19? NO ICU: NO [facility]ident [facility] Care Setting: NO Order Date: 03/20/20 : Not Performed By: #### M 400.86379 #### Test performed at: [place] [address] GLYCO HEMOon 01-27-2020 HbA1c (Bld) [Mass fraction] 6.9 % Normal [facility] Comment on above: Order Comment: Comme nts To Phleb: pre-op in PAT Result Comment: Gabrielle geller Diagnosis HbA1c (%) --------- Diabetic > 6.4 Prediabetes 5.7-6.4 Normal < 5.7 Performed By: #### L 500.77192 #### Test performed at: [place] [id number] CBC W/DIFFon 01-26-2020 BASO ABS 0.1 K/uL Normal 0.0-0.2 [facility] Comment on above: Order Comment: Comme nts To Phleb: pre-op in PAT Performed By: #### L 200.52614 #### Test performed at: [address] [address] Basophils/100 WBC (Bld) 0.6 % Normal [facility] Comment on above: Order Comment: Comme nts To Phleb: pre-op in PAT Performed By: #### L 200.70010 #### Test performed at: [address] [address] EOS ABS 0.3 K/uL Normal 0.0-0.5 [facility] Comment on above: Order Comment: Comme nts To Phleb: pre-op in PAT Performed By: #### L 200.99917 #### Test performed at: [address] [address] Eosinophils/100 WBC (Bld) 2.4 % Normal [facility] Comment on above: Order Comment: Comme nts To Phleb: pre-op in PAT Performed By: #### L 200.24585 #### Test performed at: [address] [address] Erythrocyte distribution width (RBC) [Ratio] 12.8 % Normal 11.5-14.5 [facility] Comment on above: Order Comment: Comme nts To Phleb: pre-op in PAT Performed By: #### L 200.37230 #### Test performed at: [address] [address] Hematocrit (Bld) [Volume fraction] 40.5 % Normal 39.0-55.0 [facility] Comment on above: Order Comment: Comme nts To Phleb: pre-op in PAT Performed By: #### L 200.72584 #### Test performed at: [address] [address] Hemoglobin (Bld) [Mass/Vol] 13.5 g/dL Low 14.0-16.5 [facility] Comment on above: Order Comment: Comme nts To Phleb: pre-op in PAT Performed By: #### L 200.14419 #### Test performed at: [address] [address] IG % 0.3 % Normal [facility] Comment on above: Order Comment: Comme nts To Phleb: pre-op in PAT Performed By: #### L 200.53698 #### Test performed at: [address] [address] IG ABS 0.04 K/uL Normal 0-0.05 [facility] Comment on above: Order Comment: Comme nts To Phleb: pre-op in PAT Performed By: #### L 200.36650 #### Test performed at: [address] [address] Lymphocytes (Bld) [#/Vol] 3.6 10*3/uL High 1.2-3.5 [facility] Comment on above: Order Comment: Comme nts To Phleb: pre-op in PAT Performed By: #### L 200.71201 #### Test performed at: [address] [address] Lymphocytes/100 WBC (Bld) 25.6 % Normal [facility] Comment on above: Order Comment: Comme nts To Phleb: pre-op in PAT Performed By: #### L 200.79664 #### Test performed at: [address] [address] MCH (RBC) [Entitic mass] 31.5 pg Normal 25.4-34.6 [facility] Comment on above: Order Comment: Comme nts To Phleb: pre-op in PAT Performed By: #### L 200.52438 #### Test performed at: [address] [address] MCHC (RBC) [Mass/Vol] 33.3 g/dL Normal 31.5-36.5 [facility] Comment on above: Order Comment: Comme nts To Phleb: pre-op in PAT Performed By: #### L 200.36446 #### Test performed at: [address] [address] MCV (RBC) [Entitic vol] 94.6 fL Normal 80.0-100.0 [facility] Comment on above: Order Comment: Comme nts To Phleb: pre-op in PAT Performed By: #### L 200.62796 #### Test performed at: [address] [address] MONO ABS 1.1 K/uL High 0.0-1.0 [facility] Comment on above: Order Comment: Comme nts To Phleb: pre-op in PAT Performed By: #### L 200.04598 #### Test performed at: [address] [address] Monocytes/100 WBC (Bld) 8.1 % Normal [facility] Comment on above: Order Comment: Comme nts To Phleb: pre-op in PAT Performed By: #### L 200.71243 #### Test performed at: [address] [address] NEUTROPHIL ABS 8.8 K/uL High 1.4-6.6 [facility] Comment on above: Order Comment: Comme nts To Phleb: pre-op in PAT Performed By: #### L 200.32130 #### Test performed at: [address] [address] Neutrophils/100 WBC (Bld) 63.0 % Normal [facility] Comment on above: Order Comment: Comme nts To Phleb: pre-op in PAT Performed By: #### L 200.58294 #### Test performed at: [address] [address] NRBC # 0.000 K/uL Normal 0-0.012 [facility] Comment on above: Order Comment: Comme nts To Phleb: pre-op in PAT Performed By: #### L 200.04466 #### Test performed at: [address] [address] NRBC % 0.0 /100 WBC Normal 0-0.2 [facility] Comment on above: Order Comment: Comme nts To Phleb: pre-op in PAT Performed By: #### L 200.98322 #### Test performed at: [address] [address] Platelet mean volume (Bld) [Entitic vol] 10.3 fL Normal 8.7-12.4 [facility] Comment on above: Order Comment: Comme nts To Phleb: pre-op in PAT Performed By: #### L 200.71661 #### Test performed at: [address] [address] Platelets (Bld) [#/Vol] 302 10*3/uL Normal 140-440 [facility] Comment on above: Order Comment: Comme nts To Phleb: pre-op in PAT Performed By: #### L 200.84336 #### Test performed at: [address] [address] RBC (Bld) [#/Vol] 4.28 10*6/uL Normal 3.5-5.5 [facility] Comment on above: Order Comment: Comme nts To Phleb: pre-op in PAT Performed By: #### L 200.52011 #### Test performed at: [address] [address] WBC (Bld) [#/Vol] 13.9 10*3/uL High 3.9-11.0 [facility] Comment on above: Order Comment: Comme nts To Phleb: pre-op in PAT Performed By: #### L 200.47437 #### Test performed at: [address] [address] CHEST PA/AP & LATERAL OR 2 V WSon 01-26-2020 CHEST PA/AP & LATERAL OR 2 VWS STUDY: CHEST PA/AP LATERAL OR 2 VWS; 01/26/2020 3:40 pm INDICATION: pre-op in PAT per Surgeon request. COMPARISON: 08/11/2012 ACCESSION NUMBER(S): [id number] ORDERING CLINICIAN: Trisha Quiñones FINDINGS: Unchanged blunting of the right costophrenic angle relating to scarring given the chronicity. Right pleural calcifications are not significantly changed. No focal infiltrate. No apparent pleural effusion. Normal heart size, mediastinum, michelle, and pulmonary vasculature. Thoracic kyphosis with mild degenerative changes. IMPRESSION: No active disease in the chest. Chronic changes of the right lung similar prior exam. Normal [facility] COMP META PANELon 01-26-2020 Albumin [Mass/Vol] 3.9 g/dL Normal 3.4-5.0 [facility] Comment on above: Order Comment: Comme nts To Phleb: pre-op in PAT Performed By: #### L 500.09773, L500.55584 #### Test performed at: [address] [address] ALK PHOS TOTAL 95 U/L Normal 45-117 [facility] Comment on above: Order Comment: Comme nts To Phleb: pre-op in PAT Performed By: #### L 500.15992, L500.33374 #### Test performed at: [address] [address] ALT [Catalytic activity/Vol] 64 U/L High 13-61 [facility] Comment on above: Order Comment: Comme nts To Phleb: pre-op in PAT Performed By: #### L 500.54374, L500.20332 #### Test performed at: [address] [address] AST [Catalytic activity/Vol] 34 U/L Normal 15-37 [facility] Comment on above: Order Comment: Comme nts To Phleb: pre-op in PAT Performed By: #### L 500.59787, L500.38645 #### Test performed at: [address] [address] BILI TOTAL 0.6 mg/dL Normal 0.2-1.0 [facility] Comment on above: Order Comment: Comme nts To Phleb: pre-op in PAT Performed By: #### L 500.81868, L500.41683 #### Test performed at: [address] [address] Calcium [Mass/Vol] 9.3 mg/dL Normal 8.5-10.1 [facility] Comment on above: Order Comment: Comme nts To Phleb: pre-op in PAT Performed By: #### L 500.54152, L500.28007 #### Test performed at: [address] [address] Chloride [Moles/Vol] 107 mmol/L Normal 98-107 [facility] Comment on above: Order Comment: Comme nts To Phleb: pre-op in PAT Performed By: #### L 500.45804, L500.35399 #### Test performed at: [address] [address] CO2 [Moles/Vol] 28 mmol/L Normal 21-32 [facility] Comment on above: Order Comment: Comme nts To Phleb: pre-op in PAT Performed By: #### L 500.21520, L500.14172 #### Test performed at: [address] [address] Creatinine [Mass/Vol] 1.560 mg/dL High 0.700-1.300 [facility] Comment on above: Order Comment: Comme nts To Phleb: pre-op in PAT Performed By: #### L 500.05775, L500.67648 #### Test performed at: [address] [address] Glucose [Mass/Vol] 106 mg/dL High 70-99 [facility] Comment on above: Order Comment: Comme nts To Phleb: pre-op in PAT Result Comment: Fast ing GLUCOSE reference range has been updated per (ADA) [place] [employer]'s recommendation. 05/12/2018 Performed By: #### L 500.23944, L500.30796 #### Test performed at: [address] [address] Potassium [Moles/Vol] 4.6 mmol/L Normal 3.5-5.1 [facility] Comment on above: Order Comment: Comme nts To Phleb: pre-op in PAT Performed By: #### L 500.77160, L500.75016 #### Test performed at: [address] [address] Protein [Mass/Vol] 7.3 g/dL Normal 6.4-8.2 [facility] Comment on above: Order Comment: Comme nts To Phleb: pre-op in PAT Performed By: #### L 500.62597, L500.05958 #### Test performed at: [address] [address] Sodium [Moles/Vol] 141 mmol/L Normal 136-145 [facility] Comment on above: Order Comment: Comme nts To Phleb: pre-op in PAT Performed By: #### L 500.59245, L500.90460 #### Test performed at: [address] [address] Urea nitrogen [Mass/Vol] 28 mg/dL High 7-18 [facility] Comment on above: Order Comment: Comme nts To Phleb: pre-op in PAT Performed By: #### L 500.94897, L500.25742 #### Test performed at: [address] [address] GFR ESTIMATEon 01-26-2020 IF AMER 56 Low > 60 [facility] Comment on above: Order Comment: Comme nts To Phleb: pre-op in PAT Result Comment: eGFR (Estimated GFR) Units of measure:mL/min/1.73 meters sq. *CALCULATION REVISED 12/06/2014;IDMS-traceable MDRD equation eGFR is derived from the reexpressed MDRD Study equation using the following parameters: serum creatinine, age, gender and race. An eGFR<60 mL/min/1.73m2 for >3 months is consistent with chronic kidney disease. Refer to KDOQI guidelines for clinical interpretation. Performed By: #### L 500.34947, L500.66238 #### Test performed at: [place] [address] IF non-AFR AMER 46 Low > 60 [facility] Comment on above: Order Comment: Comme nts To Phleb: pre-op in PAT Performed By: #### L 500.41813, L500.78816 #### Test performed at: [place] [address] H & Froy 01-26-2020 H & P [facility] Patient: JEFFERSON CARCAMO [address] [place] [address] MR#: [id number] HISTORY and PHYSICAL : Service Date: 01/26/20 1530 See Addendum Verdana 4d HPI/Past Med Surg Hx/Fam Soc HPI Primary Care Physician [phone] Information Source PATIENT Language Barrier No Chief Complaint L Hip Pain History of Present Illness Jefferson carcamo is a 59 yo male who presents to the office for pre-operative evaluation. He is scheduled for a L Total Hip Replacement on 02/04/[address] Huffman. He last saw Dr. Huffman 1 month ago. He states that about a year ago he started noticing pain in his hip. He said the pain got gradually worse. He saw his primary care doctor in November which is when he got an X-Ray of his hip showing that he was 'bone on bone. He states that it causes him to limp, and that he bought a cane for use a few weeks ago. He describes the pain as constantly achy, radiating down the side of his leg occasionally. His pain is at a 5/10 normally but occasionally worsens to a 9/10. He denies numbness/tingling. He states that rest makes his hio feel better. He states that sitting on a hard surface and too much walking/movement makes it worse. He does not use any topical, heat/ice therapy, or OTC analgesics. His PMH is significant for HTN, hyperlipidemia, DM, Ankylosing Spondylitis. His past surgical history is significant for Ear surgery (2017). He has never had any problems with anesthesia. He is able to walk up a flight of stairs without CP or SOB. He endorses snoring, but denies apnea, daytime fatigue. Patient states that neck is about 18.5 inches. Patient had sleep study performed about 15 years ago but was negative for sleep apnea. He endorses history of blood clots. 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 In 2014 he had DVT in his right leg. He states that they are not sure why he has had them. Since then, he has been taking Xarelto 20 mg daily. He denies SOB, CP, lower extremity edema, history of NV/stroke , or recent cough or cold. PMH/PSH Past Medical History Reports Hypertension, Reports Kidney Disease, Reports Immunocompromised, Reports Cancer, Reports Arthritis, Denies Pulmonary Disease, Denies Emphysema, Denies Asthma, Denies Heart Disease, Denies Hx CHF, Denies GI Problems, Denies CVA/TIA, Denies Seizures, Denies Psych Problems, Denies Hepatitis Diabetes TYPE 2 NONINSULIN DEPEND Surgical History Denies Pacemaker Transfusion Status CONSERVATION Transfusion Reaction NOT APPLICABLE Family/Social Smoking Status NEVER SMOKER Tobacco Use NONE Alcohol Use Yes Amt *LIQUOR AND BEER 4 X WEEK How Often WEEKLY Drug Use No Opioid Assessment Naive less than 30mme/day FEMALE Opioid Risk Tool Total/Score 0 MALE Opioid Risk Tool Total/Score 0 Risk Stratification LOW RISK (Score <=3) Advance Directives Patient has Advance Directives NO Review of Systems Review of Systems General (Constitutional) Denies: No Issues Noted, Fever, Chills, Weakness, Nausea. Existing infection before surg No Eyes Denies No Issues Noted, Denies Vision Problems, Denies Wears Glasses HEENT Denies: No Issues Noted, Sore throat, Dental problems, Wears dentures, Hearing loss. Pulmonary Denies: No Issues Noted, Shortness of breath, Dyspnea on exertion, Sleep apnea, Uses CPAP. Cardiac Denies: No Issues Noted, Chest pain, Pain on exertion, History of NV, Leg swelling. Gastrointestinal Denies: No Issues Noted, Nausea, Vomiting, Diarrhea, Constipation, Abdominal Pain. Urologic Denies: No Issues Noted. Musculoskeletal Reports: Arthralgias, Back pain, Limited ROM. Denies: No Issues Noted, Myalgias, Full ROM , No Joint Deformities. Musculoskeletal Comment L Hip Pain, R Knee pain, Ankylosing Spondylitis, Stiff neck Endocrine Reports: Diabetes, Elevated cholesterol. Denies: No Issues Noted, Thyroid disease. Hematologic Reports: No Issues Noted, Hx Blood clot in legs (2004, 2014), Hx Blood clot in lungs (2004 ). Skin NEGATIVE: No Issues Noted, Rashes, Bruising. Physical Exam Vital Signs Vital Signs Vital Signs Verdana 4d Result Date Time Pulse Ox 97 01/25 1439 B/P 124/74 01/25 1439 Temp 36.8 01/25 143 Pulse 84 01/25 1439 Resp 17 01/25 1439 Height: 180.34, Weight: 114 kg, BMI: 35.1 Appearance Appearance Appears well, Awake, Alert, No distress Neck Neck Normal inspection, Supple, stiff neck, unable to complete full ROM with extension, flexion, side to side motion HEENT HEENT Head atraumatic, Eyes normal inspection, PERRLA, Hearing grossly normal Mallampati Classification exam deferred Respiratory Respiratory Lungs sound clear, Respirations non-labored, Symmetrical expansion Lung Sounds by Lobe L LOWER LOBE Clear, L UPPER LOBE Clear, R LOWER LOBE Clear, R UPPER LOBE Clear CVS Cardiovascular Rate WNL, Rhythm regular, Normal heart sounds, Pulses full, equal Pulses 2+ L Radial, 2+ R Radial Neuro Neurological Alert, Oriented x 3, No motor deficit, No sensory deficit Mental Status Oriented x 3 Back/Spine Back/Spine stiff neck and back. Abdomen/Pelvis Abdomen Bowel sounds present, Abdomen soft, Non-tender, No distension Extremity Extremity Normal appearance, Full ROM, Symmetrical, 1+ pitting edema bilateral lower extremities, cane used for support while walking. uneven gait Skin Skin Color normal, Skin warm, dry Allergies/Home Medications Allergies Coded Allergies: NO KNOWN DRUG ALLERGIES (08/28/14) Reconcile Medications Scheduled Medications Allopurinol * (Zyloprim *) 300 MG TABLET 300 MG PO HS, Ref 0 (Reported) Entered as Reported by SANYA ZAMBRANO on 01/26/201423 Last Action: Reviewed on 01/26/201427 by SANYA ZAMBRANO Atorvastatin Calcium * (Lipitor *) 10 MG TABLET 10 MG PO QHS, Ref 0 (Reported) Entered as Reported by SANYA ZAMBRANO on 01/26/201428 Last Action: Reviewed on 01/26/201428 by SANYA ZAMBRANO Cholecalciferol (Vitamin D3) (Vitamin D3) 25 MCG (1,000 UNIT) CAPSULE 25 MCG PO DAILY, Ref 0 (Reported) Entered as Reported by SANYA ZAMBRANO on 01/26/201426 Last Action: Reviewed on 01/26/201427 by SANYA ZAMBRANO Diclofenac Sodium * (Voltaren *) 75 MG TABLET.DR 75 MG PO BIDWM ankylosing spondilitis, Ref 0 (Reported) Entered as Reported by SANYA ZAMBRANO on 01/26/201424 Last Action: Reviewed on 01/26/201427 by SANYA ZAMBRANO Glimepiride * (Amaryl *) 4 MG TABLET 4 MG PO DAILY, Ref 0 (Reported) Entered as Reported by SANYA ZAMBRANO on 01/26/201423 Last Action: Reviewed on 01/26/201427 by SANYA ZAMBRANO Lisinopril 20mg AND HCTZ 25mg * (Zestoretic 20mg/25mg *) 1 EACH TABLET 1 EACH PO DAILY@12N , Ref 0 (Reported) Entered as Reported by SANYA ZAMBRANO on 01/26/201424 Last Action: Reviewed on 01/26/201427 by SANYA ZAMBRANO Metformin HCl * (Glucophage *) 1,000 MG TABLET 500 MG PO BID, Ref 0 (Reported) Entered as Reported by SANYA ZAMBRANO on 01/26/201425 Last Action: Reviewed on 01/26/201427 by SANYA ZAMBRANO Metoprolol Succinate* (Toprol XL*) 25 MG TABLET.DR 25 MG PO DAILY, Ref 0 (Reported) Entered as Reported by SANYA ZAMBRANO on 01/26/201425 Last Action: Reviewed on 01/26/201426 by SANYA ZAMBRANO Multivitamin, Therapeutic * (CENTRUM Complete *) 1 EACH TAB 1 TAB PO DAILY, Ref 0 ( Reported) Entered as Reported by SANYA ZAMBRANO on 01/26/201426 Last Action: Reviewed on 01/26/201427 by SANYA ZAMBRANO Rivaroxaban * (Xarelto *) 20 MG TABLET 20 MG PO HS, Ref 0 (Reported) Entered as Reported by SANYA ZAMBRANO on 01/26/201422 Last Action: Reviewed on 01/26/201426 by SANYA ZAMBRANO sitaGLIPtin Phosphate * (Januvia *) 25 MG TABLET 25 MG PO DAILYWM, Ref 0 (Reported) Entered as Reported by SANYA ZAMBRANO on 01/26/201426 Last Action: Reviewed on 01/26/201427 by SANYA ZAMBRANO Discontinued Medications Rivaroxaban * (Xarelto *) 15 MG TABLET 15 MG PO BIDWM #60 TABLET, Ref 0 Discontinued reason: Change in Dose / Strength Last Action: Discontinued on 01/26/201426 by SANYA ZAMBRANO Diagnostics/Assessment AND Plan Assessment and Plan Assesment and Plan 1. L Hip Pain * L Total hip replacement scheduled for 02/04/[address] Huffman. * CMP, CBC with diff, Type and Screen, HbA1c * EKG performed 01/26/[address] Davalos - Normal EKG * CXR in office 2. Cardiovascular * continue to take HLD, HTN medications as prescribed. * Continue to take Eliquis - last dose pre-surgery 01/29/2020. Resume as directed post- operatively. * Follow up with [facility] T[facility]/Primary Care as scheduled. 3. Diabetes * Continue to take medications as prescribed. * Follow up with [facility] as scheduled. 4. Ankylosing Spondilitis: * Continue to take medication as prescribed. * Follow up with Primary care as scheduled. ASA 2 (HTN, DM) Patient activity level > 4 METS. Low risk for major cardiac event. Sleep apnea risk: STOP-BAN (Snore, HTN, BMI, Age, Male, Neck Circumference >17) Problem List Medical Problems DVT (deep venous thrombosis) Code Status FULL CODE ASA Classification Mild Systemic Disease (HTN, DM) :Surgeon Attestation Surgeon Attestation The H AND P was reviewed, the patient was examined and [ ] No Change has occurred in the patient's condition since the H AND P was completed. [ ] The following changes have occurred in the patient's condition: Physician Signature: __Date/Time: ___ ADDENDUM: TRISHA QUIÑONES on 01/27/20 at 0823 Addendum Add Assessment and Plan: 2. Cardiovascular: * Continue to take Xarelto - last does pre-surgery 01/29/2020. Resume as directed post- operatively. ADDENDUM: TRISHA QUIÑONES on 01/27/20 at 0856 Addendum Add Called and left a message for Dr. Huffman's office that [facility] will need a Sleep Study/ Pulmonary clearance prior to surgery. Electronically Signed eSign Date and Time Trisha Quñiones PA 01/27/20 0856 Dinesh Huffman MD Normal [facility] TSPATon 01-26-2020 ABO and Rh group Nom (Bld) A POSITIVE Normal [facility] Comment on above: Order Comment: Trans fusion Status: CONSERVATION Blood Bank service requested: TYPE AND SCREEN Comments To Phleb: pre-op in PAT Performed By: #### B [id number] #### Test performed at: [place] [address] Other 12-06-2019 Interpreted by: EVON OTOOLE12/06/19 16:32MRN: [id number] Name: JEFFERSON CARCAMO STUDY:HIP, UNILATERAL W/PELVIS WHEN PERFORMED 2-3 VIEWS; Left; 12/06/20193:53 pm INDICATION:pain. ORDERING CLINICIAN:MARCO OTOOLE FINDINGS:AP lateral left hip x-ray shows advanced osteoarthritis [id number] complete loss of joint space. No fracture no dislocationotherwise noted Electronically signed by: MARCO OTOOLE 12/06/19 16:32 Normal [facility] Work Phone: Otheron 11-22-2019 Interpreted by: KULWANT VAUGHN11/23/19 17:25MRN: [id number] Name: JEFFERSON CARCAMO STUDY:HIP, UNILATERAL W/PELVIS WHEN PERFORMED 2-3 VIEWS INDICATION:M70.60 M25.552. COMPARISON:None ORDERING CLINICIAN:PHILLIP BERNAL FINDINGS:Advanced osteoarthritis left hip. No fracture seen. No osseous lesion. IMPRESSION:Advanced osteoarthritis left hip.Electronically signed by: BELLO VAUGHN 11/23/19 17:25 Normal [facility] Work Phone: Comment on above: Ordering Provider: Lian BERNAL [id number] IO Hgb A1Con 10-06-2019 HbA1c (Bld) [Mass fraction] 6.8 % 4.4-6.4% [facility] Work Phone: IO glucose, blood, finger st ick via hand held monitoron 10-06-2019 Glucose [Mass/Vol] 118 mg/dL [facility] Work Phone: Comment on above: patient last ate at 12:00 p.mpatient tests 1x a day Complete Blood Count + Diffe rentialon 09-20-2019 Basophils (Bld) [#/Vol] 0.03 {x10E9/L} See Below [employer] Work Phone: Comment on above: Reference Range: 0.0 0 - 0.10 Basophils/100 WBC (Bld) 0.2 % 0.0 - 2.0 [employer] Work Phone: Eosinophils (Bld) [#/Vol] 0.37 {x10E9/L} See Below [employer] Work Phone: Comment on above: Reference Range: 0.0 0 - 0.70 Eosinophils/100 WBC (Bld) 3.0 % 0.0 - 6.0 [employer] Work Phone: Erythrocyte distribution width (RBC) [Ratio] 12.7 % See Below [employer] Work Phone: Comment on above: Reference Range: 11. 5 - 14.5 Hematocrit (Bld) [Volume fraction] 38.1 % below low threshold See Below [employer] Work Phone: Comment on above: Reference Range: 41. 0 - 52.0 Hemoglobin (Bld) [Mass/Vol] 12.7 g/dL below low threshold See Below [employer] Phone: Comment on above: Reference Range: 13. 5 - 17.5 Lymphocytes (Bld) [#/Vol] 2.83 {x10E9/L} See Below [facility] Phone: Comment on above: Reference Range: 1.2 0 - 4.80 Lymphocytes/100 WBC (Bld) 23.2 % See Below [employer] Work Phone: Comment on above: Reference Range: 13. 0 - 44.0 MCHC (RBC) [Mass/Vol] 33.3 g/dL See Below [employer] Work Phone: Comment on above: Reference Range: 32. 0 - 36.0 MCV (RBC) [Entitic vol] 94 fL 80 - 100 [facility] Work Phone: Monocytes (Bld) [#/Vol] 1.00 {x10E9/L} See Below [employer] Phone: Comment on above: Reference Range: 0.1 0 - 1.00 Monocytes/100 WBC (Bld) 8.2 % 2.0 - 10.0 [employer] Work Phone: Neutrophils/100 WBC (Bld) 65.2 % See Below [facility] Work Phone: Comment on above: Reference Range: 40. 0 - 80.0 Platelets (Bld) [#/Vol] 263 {x10E9/L} 150 - 450 [facility] Work Phone: RBC (Bld) [#/Vol] 4.07 {x10E12/L} below low threshold See Below [facility] Work Phone: Comment on above: Reference Range: 4.5 0 - 5.90 WBC (Bld) [#/Vol] 12.2 {x10E9/L} above high threshold 4.4 - 11.3 [facility] Work Phone: Complete Blood Count + Differential 0.2 % 0.0 - 0.9 [facility] Work Phone: Comment on above: Immature Granulocyte Count (IG) includes promyelocytes, myelocytes and metamyelocytes but does not include bands. Percent differential counts (%) should be interpreted in the context of the absolute cell counts (cells/L). Complete Blood Count + Differential 7.94 {x10E9/L} above high threshold See Below [facility] Work Phone: Comment on above: Reference Range: 1.2 0 - 7.70 Ferritin, Serumon 09-20-2019 Ferritin [Mass/Vol] 153 ug/L 20 - 300 [facility] Work Phone: Metabolic Panelon [id number] ALP [Catalytic activity/Vol] 76 U/L 33 - 120 [facility] Work Phone: Anion gap [Moles/Vol] 12 mmol/L 10 - 20 [facility] Work Phone: Bilirubin [Mass/Vol] 0.5 mg/dL 0.0 - 1.2 [facility] Work Phone: Calcium [Mass/Vol] 10.0 mg/dL 8.6 - 10.3 [facility] Work Phone: Chloride [Moles/Vol] 105 mmol/L 98 - 107 [facility] Work Phone: CO2 [Moles/Vol] 26 mmol/L 21 - 32 [employer] Work Phone: Creatinine [Mass/Vol] 1.70 mg/dL above high threshold See Below [facility] Work Phone: Comment on above: Reference Range: 0.5 0 - 1.30 Glucose [Mass/Vol] 115 mg/dL above high threshold 74 - 99 [facility] Work Phone: Iron [Mass/Vol] 68 ug/dL 35 - 150 [facility] Work Phone: Potassium [Moles/Vol] 4.6 mmol/L 3.5 - 5.3 [facility] Work Phone: Protein [Mass/Vol] 7.0 g/dL 6.4 - 8.2 [facility] Work Phone: Sodium [Moles/Vol] 138 mmol/L 136 - 145 [facility] Work Phone: Urea nitrogen [Mass/Vol] 43 mg/dL above high threshold 6 - 23 [facility] Work Phone: Otheron 09-20-2019 Albumin BCP dye [Mass/Vol] 4.4 g/dL 3.4 - 5.0 [employer] Work Phone: ALT With P-5'-P [Catalytic activity/Vol] 39 U/L 10 - 52 [facility] Work Phone: Comment on above: Patients treated wit h Sulfasalazine may generate falsely decreased results for ALT. AST With P-5'-P [Catalytic activity/Vol] 31 U/L 9 - 39 [employer] Work Phone: Iron binding capacity [Mass/Vol] 278 ug/dL 240 - 445 [employer] Work Phone: 51 {mL/min/1.73m2} Abnormal >60 [facility] Work Phone: Comment on above: CALCULATIONS OF FARA MATED GFR ARE PERFORMED USING THE MDRD STUDY EQUATION FOR THE IDMS-TRACEABLE CREATININE METHODS. CLIN CHEM 2007;53:766-72 42 {mL/min/1.73m2} Abnormal >60 [facility] Work Phone: 24 % below low threshold 25 - 45 [facility] Work Phone: Creatine Kinase, Levelon CK [Catalytic activity/Vol] 391 U/L above high threshold 0 - 325 [facility] Work Phone: Comment on above: Ordering Provider: Lian BERNAL [id number] Hemoglobin A1Con 02-05-2019 HbA1c (Bld) [Mass fraction] 140 {MG/DL} [facility] Work Phone: Comment on above: Ordering Provider: Lian BERNAL 31111 HbA1c (Bld) [Mass fraction] 6.5 % [facility] Work Phone: Comment on above: Diagnosis of Diabete s-Adults Non-Diabetic: < or = 5.6% Increased risk for developing diabetes: 5.7-6.4% Diagnostic of diabetes: > or = 6.5%. Monitoring of Diabetes Age (y) Therapeutic Goal (%) Adults: >18 <7.0 Pediatrics: 13-18 <7.5 7-12 <8.0 0- 6 7.5-8.5 [place] [employer]. Diabetes Care 33(S1), Feb 2009. Ordering Provider: Lian BERNAL [id number] Lipid Panelon 02-05-2019 Cholesterol [Mass/Vol] 133 mg/dL 0 - 199 [facility] Work Phone: Comment on above: . AGE DESIRABLE BORD ABIDA HIGH HIGH 0-19 Y 0 - 169 170 - 199 >/= 200 20-24 Y 0 - 189 190 - 224 >/= 225 >24 Y 0 - 199 200 - 239 >/= 240 All ranges are based on fasting samples. Specific therapeutic targets will vary based on patient-specific cardiac risk.. Pediatric guidelines reference:Pediatrics 2011, 128(S5). Adult guidelines reference: NCEP ATPIII Guidelines, CHINEDU 2001, 258:2486-97. Venipuncture immediately after or during the administration of Metamizole may lead to falsely low results. Testing should be performed immediately prior to Metamizole dosing. Ordering Provider: Lian BERNAL 81515 Cholesterol in HDL [Mass/Vol] 37.0 mg/dL Abnormal [facility] Work Phone: Comment on above: . AGE VERY LOW LOW N ORMAL HIGH 0-19 Y < 35 < 40 40-45 ---- 20- 24 Y ---- < 40 >45 ---- >24 Y ---- < 40 40-60 >60. Ordering Provider: Lian BERNAL [id number] Cholesterol in LDL [Mass/Vol] 51 mg/dL 0 - 99 [facility] Work Phone: Comment on above: . NEAR BORD AGE ARACELI RABLE OPTIMAL HIGH HIGH VERY HIGH 0-19 Y 0 - 109 --- 110-129 >/= 130 ---- 20-24 Y 0 - 119 --- 120-159 >/= 160 ---- >24 Y 0 - 99 100-129 130-159 160-189 >/=190. Ordering Provider: Lian BERNAL [id number] Cholesterol non HDL [Mass/Vol] 96 mg/dL [facility] Work Phone: Comment on above: AGE DESIRABLE BORDER LINE HIGH HIGH VERY HIGH 0-19 Y 0 - 119 120 - 144 >/= 145 >/= 160 20-24 Y 0 - 149 150 - 189 >/= 190 ---- >24 Y 30 MG/DL ABOVE LDL CHOLESTEROL GOAL. Ordering Provider: Lian BERNAL 33052 Cholesterol.total/Ch olesterol in HDL [Mass ratio] 3.6 {ratio} [facility] Work Phone: Comment on above: REF VALUESDESIRABLE < 3.4HIGH RISK > 5.0 Ordering Provider: Lian BERNAL 31083 Triglyceride [Mass/Vol] 226 mg/dL above high threshold 0 - 149 [facility] Work Phone: Comment on above: . AGE DESIRABLE BORD ABIDA HIGH HIGH VERY HIGH 0 D-90 D 19 - 174 ---- ---- ----91 D- 9 Y 0 - 74 75 - 99 >/= 100 ---- 10-19 Y 0 - 89 90 - 129 >/= 130 ---- 20-24 Y 0 - 114 115 - 149 >/= 150 ---- >24 Y 0 - 149 150 - 199 200- 499 >/= 500. Venipuncture immediately after or during the administration of Metamizole may lead to falsely low results. Testing should be performed immediately prior to Metamizole dosing. Ordering Provider: Lian Rosa12 Lipid Panel 45 mg/dL above high threshold 0 - 40 [facility] Work Phone: Comment on above: Ordering Provider: Lian Rosa12 Metabolic Panelon 02-05-2019 ALP [Catalytic activity/Vol] 79 U/L 33 - 120 [facility] Work Phone: Comment on above: Ordering Provider: Lian Rosa12 Anion gap [Moles/Vol] 13 mmol/L 10 - 20 [facility] Work Phone: Comment on above: Ordering Provider: Lian BERNAL 44931 Bilirubin [Mass/Vol] 0.7 mg/dL 0.0 - 1.2 [facility] Work Phone: Comment on above: Ordering Provider: Lian BERNAL 77413 Calcium [Mass/Vol] 9.2 mg/dL 8.6 - 10.3 [facility] Work Phone: Comment on above: Ordering Provider: Lian BERNAL 48146 Chloride [Moles/Vol] 103 mmol/L 98 - 107 [facility] Work Phone: Comment on above: Ordering Provider: Lian BERNAL 97088 CO2 [Moles/Vol] 27 mmol/L 21 - 32 [facility] Work Phone: Comment on above: Ordering Provider: Lian BERNAL 85295 Creatinine [Mass/Vol] 1.57 mg/dL above high threshold See Below [facility] Work Phone: Comment on above: Reference Range: 0.5 0 - 1.30 Ordering Provider: Lian Rosa12 Glucose [Mass/Vol] 161 mg/dL above high threshold 74 - 99 [facility] Work Phone: Comment on above: Ordering Provider: Lian Rosa12 Potassium [Moles/Vol] 4.1 mmol/L 3.5 - 5.3 [facility] Work Phone: Comment on above: Ordering Provider: Lian Rosa12 Protein [Mass/Vol] 7.0 g/dL 6.4 - 8.2 [facility] Work Phone: Comment on above: Ordering Provider: Lian Rosa12 Sodium [Moles/Vol] 139 mmol/L 136 - 145 [facility] Work Phone: Comment on above: Ordering Provider: Lian Joaquin Urea nitrogen [Mass/Vol] 30 mg/dL above high threshold 6 - 23 [facility] Work Phone: Comment on above: Ordering Provider: Lian Joaquin Otheron 02-05-2019 Albumin BCP dye [Mass/Vol] 4.1 g/dL 3.4 - 5.0 [facility] Work Phone: Comment on above: Ordering Provider: Lian Rosa12 Albumin Ql (U) 7.2 mg/L See Below [facility] Work Phone: Comment on above: Reference Range: Not Established Ordering Provider: Lian Rosa12 ALT With P-5'-P [Catalytic activity/Vol] 33 U/L 10 - 52 [facility] Work Phone: Comment on above: Patients treated wit h Sulfasalazine may generate falsely decreased results for ALT. Ordering Provider: Lian Rosa12 AST With P-5'-P [Catalytic activity/Vol] 29 U/L 9 - 39 [facility] Work Phone: Comment on above: Ordering Provider: Lian Rosa12 46 {mL/min/1.73m2} Abnormal >60 [facility] Work Phone: Comment on above: Ordering Provider: Lian BERNAL 40418 56 {mL/min/1.73m2} Abnormal >60 [facility] Work Phone: Comment on above: CALCULATIONS OF FARA MATED GFR ARE PERFORMED USING THE MDRD STUDY EQUATION FOR THE IDMS-TRACEABLE CREATININE METHODS. CLIN CHEM 2007;53:766-72 Ordering Provider: Lian Rosa12 Prostate Specific Antigenon 02-05-2019 Prostate specific Ag [Mass/Vol] 2.89 ng/mL See Below [facility] Work Phone: Comment on above: Reference Range: 0.0 0 - 4.00The FDA requires that the method used for PSA assay be reported to the physician. Values obtained with different assay methods must not be used interchangeably. This test was performed at [facility] using the ADVIAAdallomaur PSA method, which is a sandwich immunoassay using chemiluminescence for quantitation. The assay is approvedfor measurement of prostate-specific antigen (PSA) in serum and may be used in conjunction with a digital rectalexamination in men 50 years and older as an aid in detection of prostate cancer. 0-Rbpwt-piwtrhasy inhibitors (e.g. Proscar, Finasteride, Avodart, Dutasteride and [place]) for the treatment of BPH have been shown to lower PSA levels by an average of 50% after 6 months of treatment. Ordering Provider: Lian BERNAL 16571 TSH - Thyroid Stimulating Ho sofía, Serumon 02-05-2019 TSH Qn 1.48 {mIU/L} See Below [employer] Work Phone: Comment on above: Reference Range: 0.4 4 - 3.98 TSH testing is performed using different testing methodology at [facility] than at other [facility]. Direct result comparisons should only be made within the same method. Ordering Provider: Lian BERNAL 34211 Urinalysison 02-05-2019 Albumin/Creatinine DL <= 20 mg/L (U) [Mass ratio] 5.1 {ug/mg_crt} 0.0 - 30.0 [facility] Work Phone: Comment on above: Ordering Provider: Lian Rosa12 Creatinine (U) [Mass/Vol] 140.0 mg/dL See Below [facility] Work Phone: Comment on above: Reference Range: 20. 0 - 370.0 Ordering Provider: Lian BERNAL 07955 CBC PLATELET AUTO DIFFon BASO ABS 0.06 K/uL Normal 0-0.20 [facility] Comment on above: Performed By: #### L IRONP LFER #### [facility] [address] [place] [address]59 Basophils/100 WBC (Bld) 0.5 % Normal 0.0-2.0 [facility] Comment on above: Performed By: #### L IRONP LFER #### [facility] [address] [place] [address] 07277 EOS ABS 0.41 K/uL High 0.10-0.30 [facility] Comment on above: Performed By: #### L IRONP LFER #### [facility] [address] [place] [address] 40779 Eosinophils/100 WBC (Bld) 3.6 % Normal 0.0-6.0 [facility] Comment on above: Performed By: #### L IRONP LFER #### [facility] [address] [place] [address] 22142 Erythrocyte distribution width Ratio (RBC) 12.8 % Normal 11.5-14.5 [facility] Comment on above: Performed By: #### L IRONP, LFER #### [facility] [address] [place] [address] 01788 Hematocrit Volume Fraction (Bld) 40.9 % Normal 39.0-55.0 [facility] Comment on above: Performed By: #### L IRONP, LFER #### [facility] [address] [place] [address] 11144 Hemoglobin mass conc (Bld) 13.5 g/dL Low 14.0-16.5 [facility] Comment on above: Performed By: #### L IRONP, LFER #### [facility] [address] [place] [address] [id number] IG % 0.1 % Normal 0.0-0.9 [facility] Comment on above: Performed By: #### L IRONP, LFER #### [facility] [address] [place], [place] [id number] IG ABS 0.01 K/uL Normal [facility] Comment on above: Performed By: #### L IRONP, LFER #### [facility] [address] [place], [place] [id number] Lymphocytes #/vol (Bld) 4.06 10*3/uL High 1.2-4.0 [facility] Comment on above: Performed By: #### L IRONP, LFER #### [facility] [address] [place], [place] [id number] Lymphocytes/100 WBC (Bld) 35.7 % Normal 13.0-44.0 [facility] Comment on above: Performed By: #### L IRONP, LFER #### [facility] [address] [place] [address] MCH Entitic mass (RBC) 30.6 pg Normal 25.4-34.6 [facility] [place] Comment on above: Performed By: #### L IRONP, LFER #### [facility] [address] [place] [address] MCHC mass conc (RBC) 33.0 g/dL Normal 30.0-36.0 [facility] [place] Comment on above: Performed By: #### L IRONP, LFER #### [facility] [address] [place] [address] MCV Entitic volume (RBC) 92.7 fL Normal 79.0-98.0 [facility] [place] Comment on above: Performed By: #### L IRONP, LFER #### [facility] [address] [place], [place] [id number] MONO ABS 1.05 K/uL High 0-1.00 [facility] [place] Comment on above: Performed By: #### L IRONP, LFER #### [facility] [address] [place], [place] [id number] Monocytes/100 WBC (Bld) 9.2 % Normal 2.0-10.0 [facility] [place] Comment on above: Performed By: #### L IRONP, LFER #### [facility] [address] [place], [place] [id number] NEUT ABS 5.79 K/uL Normal 1.9-8.0 [facility] [place] Comment on above: Performed By: #### L IRONMacie LFER #### [facility] [address] [place], [place] [address] Neutrophils/100 WBC (Bld) 50.9 % Normal 40.0-80.0 [facility] [place] Comment on above: Performed By: #### L IRONMacie LFER #### [facility] [address] [place], [place] [id number] Platelet mean volume Entitic volume (Bld) 9.7 fL Normal 8.4-11.9 [facility] [place] Comment on above: Performed By: #### L IRONMacie LFER #### [facility] [address] [place], [place] [address] Platelets #/vol (Bld) 273 10*3/uL Normal 140-440 [facility] [place] Comment on above: Performed By: #### L IRONMacie LFER #### [facility] [address] [place], [place] [address] RBC #/vol (Bld) 4.41 10*6/uL Normal 4.0-6.0 [facility] [place] Comment on above: Performed By: #### L IRONMacie LFER #### [facility] [address] [place], [place] [id number] WBC #/vol (Bld) 11.4 10*3/uL High 3.9-11.0 [facility] [place] Comment on above: Performed By: #### L IRONP LFER #### [facility] [address] [place], [place] [id number] COMP METABOLIC PANELon 03-24 ALK PHOS TOTAL 81 U/L Normal 45-117 [facility] [place] Comment on above: Order Comment: 2 OF 2 ORDERS Performed By: #### L IRONP LFER #### [facility] [address] [place], [place] [id number] ALT enzyme act/vol 25 U/L Normal 10-52 [facility] [place] Comment on above: Order Comment: 2 OF 2 ORDERS Performed By: #### L IRONP LFER #### [facility] [address] [place], [place] [id number] AST enzyme act/vol 24 U/L Normal 13-39 [facility] [place] Comment on above: Order Comment: 2 OF 2 ORDERS Performed By: #### L IRONP, LFER #### [facility] [address] [place] [address] BILI TOTAL 0.4 mg/dL Normal 0-1.2 [facility] [place] Comment on above: Order Comment: 2 OF 2 ORDERS Performed By: #### L IRONP, LFER #### [facility] [address] [place] [address] Protein mass conc 7.6 g/dL Normal 6.4-8.2 [facility] [place] Comment on above: Order Comment: 2 OF 2 ORDERS Performed By: #### L IRONP, LFER #### [facility] [address] [place] [address] Albumin mass conc 4.3 g/dL Normal 3.4-5.0 [facility] [place] Comment on above: Order Comment: 2 OF 2 ORDERS Performed By: #### L IRONP, LFER #### [facility] [address] [place] [address] Calcium mass conc 9.9 mg/dL Normal 8.6-10.3 [facility] [place] Comment on above: Order Comment: 2 OF 2 ORDERS Performed By: #### L IRONP, LFER #### [facility] [address] [place] [address] Chloride molar conc 101 mmol/L Normal 98-107 [facility] [place] Comment on above: Order Comment: 2 OF 2 ORDERS Performed By: #### L IRONP, LFER #### [facility] [address] [place] [address] CO2 molar conc 30 mmol/L Normal 21-32 [facility] [place] Comment on above: Order Comment: 2 OF 2 ORDERS Performed By: #### L IRONP, LFER #### [facility] [address] [place], [place] [id number] Creatinine mass conc 1.30 mg/dL Normal 0.5-1.30 [facility] [place] Comment on above: Order Comment: 2 OF 2 ORDERS Result Comment: Antonette fied kinetic Sweta reaction - IDMS traceable Performed By: #### L IRONP, LFER #### [facility] [address] [place] [address] Glucose mass conc 101 mg/dL High 74-99 [facility] [place] Comment on above: Order Comment: 2 OF 2 ORDERS Performed By: #### L IRONP, LFER #### [facility] [address] [place] [address] Potassium molar conc 4.2 mmol/L Normal 3.5-5.3 [facility] [place] Comment on above: Order Comment: 2 OF 2 ORDERS Performed By: #### L IRONP, LFER #### [facility] [address] [place] [address] Sodium molar conc 137 mmol/L Normal 136-145 [facility] [place] Comment on above: Order Comment: 2 OF 2 ORDERS Performed By: #### L IRONP, LFER #### [facility] [address] [place] [address] Urea nitrogen mass conc 31 mg/dL High 6-23 [facility] [place] Comment on above: Order Comment: 2 OF 2 ORDERS Performed By: #### L IRONP, LFER #### [facility] [address] [place] [id number] GLOMERULAR FILTRATION RATE E STon 03-24-2018 GFR/1.73 sq M predicted among non-blacks MDRD vol rate/area (S/P/Bld) 61 mL/min/{1.73_m2} Normal > 60 [facility] [place] [facility] Comment on above: Order Comment: 2 OF 2 ORDERS Performed By: #### L IRONP, LFER #### [facility] [address] [place] [address] IF AMER 71 mL/MIN Normal > 60 [facility] [place] Comment on above: Order Comment: 2 OF 2 ORDERS Result Comment: Effe ctive 07/13/14: CKD-EPI equation / based on IDMS traceable creatinine. Continue to use the CREAT CLR-DOSE (Cockgroft-Gault) value for determining medication dose. Performed By: #### L IRONP, LFER #### [facility] [address] [place] [address] COMP METABOLIC PANELon 02-13 Albumin mass conc 3.9 g/dL Normal 3.4-5.0 [facility] [place] Comment on above: Order Comment: 2 OF 2 ORDERS Performed By: #### L IRONP, LFER #### [facility] [address] [place] [address] ALK PHOS TOTAL 66 U/L Normal 45-117 [facility] [place] Comment on above: Order Comment: 2 OF 2 ORDERS Performed By: #### L IRONP, LFER #### [facility] [address] [place] [address] ALT enzyme act/vol 20 U/L Normal 10-52 [facility] [place] Comment on above: Order Comment: 2 OF 2 ORDERS Performed By: #### L IRONP, LFER #### [facility] [address] [place] [address] AST enzyme act/vol 22 U/L Normal 13-39 [facility] [place] Comment on above: Order Comment: 2 OF 2 ORDERS Performed By: #### L IRONP, LFER #### [facility] [address] [place] [address] BILI TOTAL 0.4 mg/dL Normal 0-1.2 [facility] [place] Comment on above: Order Comment: 2 OF 2 ORDERS Performed By: #### L IRONP, LFER #### [facility] [address] [place] [address] Calcium mass conc 9.1 mg/dL Normal 8.6-10.3 [facility] [place] Comment on above: Order Comment: 2 OF 2 ORDERS Performed By: #### L IRONP, LFER #### [facility] [address] [place] [address] Chloride molar conc 103 mmol/L Normal 98-107 [facility] [place] Comment on above: Order Comment: 2 OF 2 ORDERS Performed By: #### L IRONP, LFER #### [facility] [address] [place] [address] CO2 molar conc 29 mmol/L Normal 21-32 [facility] [place] Comment on above: Order Comment: 2 OF 2 ORDERS Performed By: #### L IRONP, LFER #### [facility] [address] [place] [address] Creatinine mass conc 1.43 mg/dL High 0.5-1.3 [facility] [place] Comment on above: Order Comment: 2 OF 2 ORDERS Performed By: #### L IRONP, LFER #### [facility] [address] [place] [address] Glucose mass conc 146 mg/dL High 74-99 [facility] [place] Comment on above: Order Comment: 2 OF 2 ORDERS Performed By: #### L IRONP, LFER #### [facility] [address] [place] [address] Potassium molar conc 4.4 mmol/L Normal 3.5-5.3 [facility] [place] Comment on above: Order Comment: 2 OF 2 ORDERS Performed By: #### L IRONP, LFER #### [facility] [address] [place] [address] Protein mass conc 6.8 g/dL Normal 6.4-8.2 [facility] [place] Comment on above: Order Comment: 2 OF 2 ORDERS Performed By: #### L IRONP, LFER #### [facility] [address] [place] [address] Sodium molar conc 138 mmol/L Normal 136-145 [facility] [place] Comment on above: Order Comment: 2 OF 2 ORDERS Performed By: #### L IRONP, LFER #### [facility] [address] [place] [address] Urea nitrogen mass conc 29 mg/dL High 6-23 [facility] [place] Comment on above: Order Comment: 2 OF 2 ORDERS Performed By: #### L IRONP, LFER #### [facility] [address] [place] [address] GLOMERULAR FILTRATION RATE E STon 02-13-2018 GFR/1.73 sq M predicted among non-blacks MDRD vol rate/area (S/P/Bld) 55 mL/min/{1.73_m2} Low > 60 [facility] [place] [facility] Comment on above: Order Comment: 2 OF 2 ORDERS Performed By: #### L IRONP, LFER #### [facility] [address] [place] [address] IF AMER 63 mL/MIN Normal > 60 [facility] [place] Comment on above: Order Comment: 2 OF 2 ORDERS Result Comment: Effe ctive 07/13/14: CKD-EPI equation / based on IDMS traceable creatinine. Continue to use the CREAT CLR-DOSE (Cockgroft-Gault) value for determining medication dose. Performed By: #### L IRONMacie LFER #### [facility] [address] [place] [address] HEMOGLOBIN A1C GLYCOHGBon eAG 125.5 mg/dL Normal [facility] [place] Comment on above: Order Comment: 2 OF 2 ORDERS Result Comment: eAG: (Estimated Average Glucose) is a calculated value from HgbA1c and is telephone claims representative of the average blood glucose level in the last 2-3 month period. Performed By: #### L IRONP, LFER #### [facility] [address] [place] [address] Hemoglobin A1c/Hemoglobin.total mass fraction (Bld) 6.0 % Normal 4.3-6.1 [facility] [place] Comment on above: Order Comment: 2 OF 2 ORDERS Performed By: #### L IRONP LFER #### [facility] [address] [place] [address] LIPID PANELon 02-13-2018 Cholesterol in HDL mass conc 35.0 mg/dL Low >40 [facility] [place] Comment on above: Order Comment: 2 OF 2 ORDERS Performed By: #### L IRONP LFER #### [facility] [address] [place] [address] Cholesterol in LDL mass conc 65 mg/dL Normal [facility] [place] Comment on above: Order Comment: 2 OF 2 ORDERS Result Comment: LDL Risk Stratification: < 100 mg/dL - Optimal < 130 - Near optimal 130 - 159 - Borderline high 160 - 189 - High > 189 - Very high *National Cholesterol Education Program (NCEP) levels in terms of risk for coronary heart disease. Performed By: #### L IRONP, LFER #### [facility] [address] [place] [address] Cholesterol mass conc 125 mg/dL Normal [facility] [place] Comment on above: Order Comment: 2 OF 2 ORDERS Result Comment: Chol esterol Risk Stratification <200 mg/dL Desirable 200-240 mg/dL Borderline >240 mg/dL High Risk Performed By: #### L IRONP, LFER #### [facility] [address] [place] [address] Triglyceride mass conc 157 mg/dL High [facility] [place] Comment on above: Order Comment: 2 OF 2 ORDERS Result Comment: Trig lycerides Reference Range <150 mg/dL Normal 150-199 mg/dL Borderline High 200-499 mg/dL High >/=500 mg/dL Very High Performed By: #### L IRONP, LFER #### [facility] [address] [place] [address] UR MICROALBUMIN RANDOMon Creatinine mass conc 92.2 mg/dL Normal Not [facility] Comment on above: Performed By: #### L IRONP, LFER #### [facility] [address] [place] [address] UR MICROALB RDM < 5.0 Normal Not [facility] Comment on above: Performed By: #### L IRONP, LFER #### [facility] [address] [place] [address] UR RATIO NotDone Normal <30.0 [facility] [place] Comment on above: Result Comment: Unab le to calculate Urine Microalbumin/Creatinine Ratio due to low microalbumin value. Suggest repeating with a 24hr specimen. Performed By: #### L IRONP, LFER #### [facility] [address] [place] [address] MISCELLANEOUS TESTon 018 MISC TEST Normal [facility] [place] Comment on above: Order Comment: 2 OF 2 ORDERS Result Comment: Test ing performed at [facility] Performed By: #### L IRONP, LFER #### [facility] [address] [place] [address] MISCELLANEOUS TESTon 018 MISC TEST Normal [facility] [place] Comment on above: Order Comment: CD3 - LAVENDER 1 OF 2 ORDERS Name of Test: CD3 (2nd line): GREEN NA HEP LAV Result Comment: Test ing performed at [facility] Performed By: #### L MISCT #### MISC TESTING SITES IGGon 08-31-2017 IgG mass conc 1044 mg/dL Normal 700-1600 [facility] [place] Comment on above: Order Comment: 2 OF 2 ORDERS Result Comment: [facility] [place] [address];Lab ;Dir ctor: Joaquin Garcia, PhD Performed By: #### L IGG #### [facility] [address] [place] [address] CBC AUTOon 08-29-2017 Erythrocyte distribution width Ratio (RBC) 13.0 % Normal 11.5-14.5 [facility] [place] Comment on above: Order Comment: 2 OF 2 ORDERS Performed By: #### L CBCMD, LCBC #### [facility] [address] [place] [address] Hematocrit Volume Fraction (Bld) 39.5 % Normal 39.0-55.0 [facility] [place] Comment on above: Order Comment: 2 OF 2 ORDERS Performed By: #### L CBCMD, LCBC #### [facility] [address] [place] [address] Hemoglobin mass conc (Bld) 13.1 g/dL Low 14.0-16.5 [facility] [place] Comment on above: Order Comment: 2 OF 2 ORDERS Performed By: #### L CBCMD, LCBC #### [facility] [address] [place] [address] MCH Entitic mass (RBC) 30.4 pg Normal 25.4-34.6 [facility] [place] Comment on above: Order Comment: 2 OF 2 ORDERS Performed By: #### L CBCMD, LCBC #### [facility] [address] [place] [address]85 MCHC mass conc (RBC) 33.2 g/dL Normal 30.0-36.0 [facility] [place] Comment on above: Order Comment: 2 OF 2 ORDERS Performed By: #### L CBCMD, LCBC #### [facility] [address] [place] [address] MCV Entitic volume (RBC) 91.6 fL Normal 79.0-98.0 [facility] [place] Comment on above: Order Comment: 2 OF 2 ORDERS Performed By: #### L CBCMD, LCBC #### [facility] [address] [place] [address] Platelet mean volume Entitic volume (Bld) 10.1 fL Normal 8.4-11.9 [facility] [place] Comment on above: Order Comment: 2 OF 2 ORDERS Performed By: #### L CBCMD, LCBC #### [facility] [address] [place] [address] Platelets #/vol (Bld) 260 10*3/uL Normal 140-440 [facility] [place] Comment on above: Order Comment: 2 OF 2 ORDERS Performed By: #### L CBCMD, LCBC #### [facility] [address] [place] [address]273 RBC #/vol (Bld) 4.31 10*6/uL Normal 4.0-6.0 [facility] [place] Comment on above: Order Comment: 2 OF 2 ORDERS Performed By: #### L CBCMD, LCBC #### [facility] [address] [place] [address] WBC #/vol (Bld) 12.3 10*3/uL High 3.9-11.0 [facility] [place] Comment on above: Order Comment: 2 OF 2 ORDERS Performed By: #### L CBCMD, LCBC #### [facility] [address] [place] [address]80 CBC w/MANUAL DIFFon 08-30-19 18 Eosinophils/100 WBC (Bld) 5 % High 1-3 [facility] [place] Comment on above: Order Comment: 2 OF 2 ORDERS Performed By: #### L CBCMD, LCBC #### [facility] [address] [place] [address]3747 Lymphocytes/100 WBC (Bld) 20 % Normal 20-30 [facility] [place] Comment on above: Order Comment: 2 OF 2 ORDERS Performed By: #### L CBCMD, LCBC #### [facility] [address] [place] [address]32 Monocytes/100 WBC (Bld) 5 % Normal 2-8 [facility] [place] Comment on above: Order Comment: 2 OF 2 ORDERS Performed By: #### L CBCMD, LCBC #### [facility] [address] [place] [address] Neutrophils/100 WBC (Bld) 70 % Normal 50-70 [facility] [place] Comment on above: Order Comment: 2 OF 2 ORDERS Performed By: #### L CBCMD, LCBC #### [facility] [address] [place] [address]85 Platelets #/vol (Bld) ADEQ Normal [facility] [place] Comment on above: Order Comment: 2 OF 2 ORDERS Performed By: #### L CBCMD, LCBC #### [facility] [address] [place] [address] 24158 RBC COMMENTS NORMAL MORPHOLOGY Normal [facility] [place] Comment on above: Order Comment: 2 OF 2 ORDERS Performed By: #### L CBCMD, LCBC #### [facility] [address] [place] [address] TOTAL CELLS 100 #Cells Normal [facility] [place] Comment on above: Order Comment: 2 OF 2 ORDERS Performed By: #### L CBCMD, LCBC #### [facility] [address] [place] [address] NRBC # 0.00 K/uL Normal [facility] [place] Comment on above: Order Comment: 2 OF 2 ORDERS Performed By: #### L CBCMD, LCBC #### [facility] [address] [place] [address] NRBC % 0.0 /100 WBC Normal 0 [facility] [place] Comment on above: Order Comment: 2 OF 2 ORDERS Performed By: #### L CBCMD, LCBC #### [facility] [address] [place] [address] COMP METABOLIC PANELon 08-29 Albumin mass conc 4.1 g/dL Normal 3.4-5.0 [facility] [place] Comment on above: Order Comment: 2 OF 2 ORDERS Is patient fasting? YES Performed By: #### L LDH, LURIC, LCMP, LGFRP #### [facility] [address] [place], [place] [id number] ALK PHOS TOTAL 60 U/L Normal 45-117 [facility] [place] Comment on above: Order Comment: 2 OF 2 ORDERS Is patient fasting? YES Performed By: #### L LDH, LURIC, LCMP, LGFRP #### [facility] [address] [place], [place] [address] ALT enzyme act/vol 21 U/L Normal 10-52 [facility] [place] Comment on above: Order Comment: 2 OF 2 ORDERS Is patient fasting? YES Performed By: #### L LDH, LURIC, LCMP, LGFRP #### [facility] [address] [place] [address] AST enzyme act/vol 20 U/L Normal 13-39 [facility] [place] Comment on above: Order Comment: 2 OF 2 ORDERS Is patient fasting? YES Performed By: #### L LDH, LURIC, LCMP, LGFRP #### [facility] [address] [place] [address] 26685 BILI TOTAL 0.4 mg/dL Normal 0-1.2 [facility] [place] Comment on above: Order Comment: 2 OF 2 ORDERS Is patient fasting? YES Performed By: #### L LDH, LURIC, LCMP, LGFRP #### [facility] [address] [place] [address] 18839 Calcium mass conc 9.8 mg/dL Normal 8.6-10.3 [facility] [place] Comment on above: Order Comment: 2 OF 2 ORDERS Is patient fasting? YES Performed By: #### L LDH, LURIC, LCMP, LGFRP #### [facility] [address] [place] [address] 18310 Chloride molar conc 104 mmol/L Normal 98-107 [facility] [place] Comment on above: Order Comment: 2 OF 2 ORDERS Is patient fasting? YES Performed By: #### L LDH, LURIC, LCMP, LGFRP #### [facility] [address] [place] [address] 25950 CO2 molar conc 27 mmol/L Normal 21-32 [facility] [place] Comment on above: Order Comment: 2 OF 2 ORDERS Is patient fasting? YES Performed By: #### L LDH, LURIC, LCMP, LGFRP #### [facility] [address] [place] [address]3628 Creatinine mass conc 1.50 mg/dL High 0.5-1.3 [facility] [place] Comment on above: Order Comment: 2 OF 2 ORDERS Is patient fasting? YES Performed By: #### L LDH, LURIC, LCMP, LGFRP #### [facility] [address] [place] [address] 51395 Glucose mass conc 164 mg/dL High 74-99 [facility] [place] Comment on above: Order Comment: 2 OF 2 ORDERS Is patient fasting? YES Performed By: #### L LDH, LURIC, LCMP, LGFRP #### [facility] [address] [place] [address] Potassium molar conc 4.5 mmol/L Normal 3.5-5.3 [facility] [place] Comment on above: Order Comment: 2 OF 2 ORDERS Is patient fasting? YES Performed By: #### L LDH, LURIC, LCMP, LGFRP #### [facility] [address] [place] [address] Protein mass conc 7.5 g/dL Normal 6.4-8.2 [facility] [place] Comment on above: Order Comment: 2 OF 2 ORDERS Is patient fasting? YES Performed By: #### L LDH, LURIC, LCMP, LGFRP #### [facility] [address] [place] [address] Sodium molar conc 137 mmol/L Normal 136-145 [facility] [place] Comment on above: Order Comment: 2 OF 2 ORDERS Is patient fasting? YES Performed By: #### L LDH, LURIC, LCMP, LGFRP #### [facility] [address] [place] [address] Urea nitrogen mass conc 33 mg/dL High 6-23 [facility] [place] Comment on above: Order Comment: 2 OF 2 ORDERS Is patient fasting? YES Performed By: #### L LDH, LURIC, LCMP, LGFRP #### [facility] [address] [place], [place] [id number] FERRITINon 08-29-2017 Ferritin mass conc 67 ng/mL Normal 20-300 [facility] [place] Comment on above: Order Comment: 2 OF 2 ORDERS Performed By: #### L IRONP, LFER #### [facility] [address] [place], [place] [id number] GLOMERULAR FILTRATION RATE E STon 08-29-2017 GFR/1.73 sq M predicted among non-blacks MDRD vol rate/area (S/P/Bld) 52 mL/min/{1.73_m2} Low > 60 [facility] Comment on above: Order Comment: 2 OF 2 ORDERS Is patient fasting? YES Performed By: #### L LDH, LURIC, LCMP, LGFRP #### [facility] [address] [place], [place] [id number] IF AMER 60 mL/MIN Normal > 60 [facility] Comment on above: Order Comment: 2 OF 2 ORDERS Is patient fasting? YES Result Comment: Angel ctive 07/13/14: CKD-EPI equation / based on IDMS traceable creatinine. Continue to use the CREAT CLR-DOSE (Cockgroft-Gault) value for determining medication dose. Performed By: #### L LDH, LURIC, LCMP, LGFRP #### [facility] [address] [place] [id number] IRON PANELon 08-29-2017 Iron mass conc 68 ug/dL Normal 35-150 [facility] Comment on above: Order Comment: 2 OF 2 ORDERS Performed By: #### L IRONP, LFER #### [facility] [address] [place], [place] [id number] IRON SAT 20 % Low 25-45 [facility] Comment on above: Order Comment: 2 OF 2 ORDERS Performed By: #### L IRONP, LFER #### [facility] [address] [place], [place] [id number] TIBC 335 ug/dL Normal 250-445 [facility] Comment on above: Order Comment: 2 OF 2 ORDERS Performed By: #### L IRONP, LFER #### [facility] [address] [place], [place] [id number] LDH (LD)on 08-29-2017 LDH 106 U/L Normal 84-246 [facility] Comment on above: Order Comment: 2 OF 2 ORDERS Is patient fasting? YES Performed By: #### L LDH, LURIC, LCMP, LGFRP #### [facility] [address] [place], [place] [id number] URIC ACID BLDon 08-29-2017 Urate mass conc 4.3 mg/dL Normal 4.0-7.5 [facility] Comment on above: Order Comment: 2 OF 2 ORDERS Is patient fasting? YES Performed By: #### L LDH, LURIC, LCMP, LGFRP #### [facility] [address] [place] [id number] Vital Signs Date Time Vital Sign Value Performing Clinician Facility 04-19-2024 16:23-0500 Body height 177.8 cm Heriberto Davalos DO Work Phone: [facility] 04-19-2024 16:23-0500 Body mass index (BMI) [Ratio] 30.99 kg/m2 Heriberto Davalos DO Work Phone: [facility] 04-19-2024 16:23-0500 Body temperature 97.3 [degF] Heriberto Davalos DO Work Phone: [facility] 04-19-2024 16:23-0500 Body weight 97.98 kg Heriberto Davalos DO Work Phone: [facility] 04-19-2024 16:23-0500 Diastolic blood pressure 82 mm[Hg] Heriberto Davalos DO Work Phone: [facility] 04-19-2024 16:23-0500 Heart rate 77 /min Heriberto Davalos DO Work Phone: [facility] 04-19-2024 16:23-0500 Systolic blood pressure 155 mm[Hg] Heriberto Davalos DO Work Phone: [facility] 03-03-2024 16:05-0500 Body height 177.8 cm Heriberto Davalos DO Work Phone: [facility] 03-03-2024 16:05-0500 Body mass index (BMI) [Ratio] 31.08 kg/m2 Heriberto Davalos DO Work Phone: [facility] 03-03-2024 16:05-0500 Body temperature 97.2 [degF] Heriberto Davalos DO Work Phone: [facility] 03-03-2024 16:05-0500 Body weight 98.25 kg Heriberto Davalos DO Work Phone: [facility] 03-03-2024 16:05-0500 Diastolic blood pressure 73 mm[Hg] Heriberto Kingens DO Work Phone: [facility] 03-03-2024 16:05-0500 Heart rate 84 /min Heriberto Davalos DO Work Phone: [facility] 03-03-2024 16:05-0500 Systolic blood pressure 118 mm[Hg] Heriberto Davalos DO Work Phone: [facility] 02-13-2024 15:48-0500 Body height 177.8 cm Goyo Snider MD Work Phone: [facility] 02-13-2024 15:48-0500 Body mass index (BMI) [Ratio] 30.75 kg/m2 Goyo Snider MD Work Phone: [facility] 02-13-2024 15:48-0500 Body weight 97.21 kg Goyo Snider MD Work Phone: [facility] 02-07-2024 16:00-0500 Body temperature 98.1 [degF] Phillip Dumont DO Work Phone: [facility] 02-07-2024 16:00-0500 Diastolic blood pressure 87 mm[Hg] Phillip Dumont DO Work Phone: [facility] 02-07-2024 16:00-0500 Heart rate 87 /min Phillip Dumont DO Work Phone: [facility] 02-07-2024 16:00-0500 Respiratory rate 18 /min Phillip Dumont DO Work Phone: [facility] 02-07-2024 16:00-0500 SaO2% (BldA) [Mass fraction] 99 % Phillip Dumont DO Work Phone: [facility] 02-07-2024 16:00-0500 Systolic blood pressure 162 mm[Hg] Phillip Dumont DO Work Phone: [facility] 02-07-2024 13:41-0500 Body height 177.8 cm Phillip Dumont DO Work Phone: [facility] 02-07-2024 13:41-0500 Body mass index (BMI) [Ratio] 29.41 kg/m2 Phillip Dumont DO Work Phone: [facility] 02-07-2024 13:41-0500 Body weight 92.99 kg Phillip Dumont DO Work Phone: [facility] 12-10-2023 15:40-0400 Body height 177.8 cm Mahesh Orlando INFORMATION ANALYST-CRIMINAL RECORDS TECHNICIAN Work Phone: [facility] 12-10-2023 15:40-0400 Body mass index (BMI) [Ratio] 30.85 kg/m2 Mahesh Orlando INFORMATION ANALYST-CRIMINAL RECORDS TECHNICIAN Work Phone: [facility] 12-10-2023 15:40-0400 Body weight 97.52 kg Mahesh Orlando INFORMATION ANALYST-CRIMINAL RECORDS TECHNICIAN Work Phone: [facility] 12-10-2023 15:40-0400 Diastolic blood pressure 92 mm[Hg] Mahesh Orlando INFORMATION ANALYST-CRIMINAL RECORDS TECHNICIAN Work Phone: [facility] 12-10-2023 15:40-0400 Heart rate 82 /min Mahesh Orlando INFORMATION ANALYST-CRIMINAL RECORDS TECHNICIAN Work Phone: [facility] 12-10-2023 15:40-0400 Systolic blood pressure 165 mm[Hg] Mahesh Orlando INFORMATION ANALYST-CRIMINAL RECORDS TECHNICIAN Work Phone: [facility] 11-25-2023 16:15-0400 Body height 177.8 cm Heriberto Davalos DO Work Phone: [facility] 11-25-2023 16:15-0400 Body mass index (BMI) [Ratio] 31.14 kg/m2 Heriberto Davalos DO Work Phone: [facility] 11-25-2023 16:15-0400 Body temperature 97.2 [degF] Heriberto Davalos DO Work Phone: [facility] 11-25-2023 16:15-0400 Body weight 98.43 kg Heriberto Davalos DO Work Phone: [facility] 11-25-2023 16:15-0400 Diastolic blood pressure 68 mm[Hg] Heriberto Davalos DO Work Phone: [facility] 11-25-2023 16:15-0400 Heart rate 83 /min Heriberto Davalos DO Work Phone: [facility] 11-25-2023 16:15-0400 Systolic blood pressure 110 mm[Hg] Heriberto Davalos DO Work Phone: [facility] 11-12-2023 15:30-0400 Body height 177.8 cm Goyo Snider MD Work Phone: [facility] 11-12-2023 15:30-0400 Body mass index (BMI) [Ratio] 30.29 kg/m2 Goyo Snider MD Work Phone: [facility] 11-12-2023 15:30-0400 Body weight 95.75 kg Goyo Snider MD Work Phone: [facility] 11-11-2023 09:27-0400 Body height 177.8 cm Heriberto Davalos DO Work Phone: [facility] 11-11-2023 09:27-0400 Body mass index (BMI) [Ratio] 30.13 kg/m2 Heriberto Davalos DO Work Phone: [facility] 11-11-2023 09:27-0400 Body temperature 97.81 [degF] Heriberto Davalos DO Work Phone: [facility] 11-11-2023 09:27-0400 Body weight 95.25 kg Heriberto Davalos DO Work Phone: [facility] 11-11-2023 09:27-0400 Diastolic blood pressure 70 mm[Hg] Heriberto Davalos DO Work Phone: [facility] 11-11-2023 09:27-0400 Heart rate 79 /min Heriberto Davalos DO Work Phone: [facility] 11-11-2023 09:27-0400 Systolic blood pressure 105 mm[Hg] Heriberto Davalos DO Work Phone: [facility] 10-28-2023 16:02-0400 Body height 177.8 cm Heriberto Davalos DO Work Phone: [facility] 10-28-2023 16:02-0400 Body mass index (BMI) [Ratio] 32.43 kg/m2 Heriberto Davalos DO Work Phone: [facility] 10-28-2023 16:02-0400 Body temperature 98.6 [degF] Heriberto Davalos DO Work Phone: [facility] 10-28-2023 16:02-0400 Body weight 102.51 kg Heriberto Davalos DO Work Phone: [facility] 10-28-2023 16:02-0400 Diastolic blood pressure 76 mm[Hg] Heriberto Davalos DO Work Phone: [facility] 10-28-2023 16:02-0400 Heart rate 92 /min Heriberto Davalos DO Work Phone: [facility] 10-28-2023 16:02-0400 Systolic blood pressure 117 mm[Hg] Heriberto Davalos DO Work Phone: [facility] 10-27-2023 16:00-0400 Diastolic blood pressure 74 mm[Hg] Phillip Bernal MD [facility] 10-27-2023 16:00-0400 Heart rate 98 /min Phillip Bernal MD [facility] 10-27-2023 16:00-0400 Respiratory rate 17 /min Phillip Bernal MD [facility] 10-27-2023 16:00-0400 SaO2% (BldA) [Mass fraction] 99 % Phillip Bernal MD [facility] 10-27-2023 16:00-0400 Systolic blood pressure 155 mm[Hg] Phillip Bernal MD [facility] 10-27-2023 11:46-0400 Body height 177.8 cm Phillip Bernal MD [facility] 10-27-2023 11:46-0400 Body mass index (BMI) [Ratio] 31.57 kg/m2 Phillip Bernal MD [facility] 10-27-2023 11:46-0400 Body temperature 97.7 [degF] Phillip Bernal MD [facility] 10-27-2023 11:46-0400 Body weight 99.79 kg Phillip Bernal MD [facility] 07-23-2023 16:02-0400 Body height 177.8 cm Heriberto Davalos DO Work Phone: [facility] 07-23-2023 16:02-0400 Body mass index (BMI) [Ratio] 32.28 kg/m2 Heriberto Anoop DO Work Phone: [facility] 07-23-2023 16:02-0400 Body temperature 98.01 [degF] Heriberto Davalos DO Work Phone: [facility] 07-23-2023 16:02-0400 Body weight 102.06 kg Heriberto Anoop DO Work Phone: [facility] 07-23-2023 16:02-0400 Diastolic blood pressure 66 mm[Hg] Heriberto Davalos DO Work Phone: [facility] 07-23-2023 16:02-0400 Heart rate 100 /min Heriberto Anoop DO Work Phone: [facility] 07-23-2023 16:02-0400 Systolic blood pressure 97 mm[Hg] Heriberto Davalos DO Work Phone: [facility] 04-23-2023 16:03-0500 Body height 177.8 cm Heriberto Anoop DO Work Phone: [facility] 04-23-2023 16:03-0500 Body mass index (BMI) [Ratio] 34.58 kg/m2 Heriberto Davalos DO Work Phone: [facility] 04-23-2023 16:03-0500 Body temperature 98.01 [degF] Heriberto Davalos DO Work Phone: [facility] 04-23-2023 16:03-0500 Body weight 109.32 kg Heriberto Davalos DO Work Phone: [facility] 04-23-2023 16:03-0500 Diastolic blood pressure 79 mm[Hg] Heriberto Davalos DO Work Phone: [facility] 04-23-2023 16:03-0500 Heart rate 76 /min Heriberto Davalos DO Work Phone: [facility] 04-23-2023 16:03-0500 Systolic blood pressure 115 mm[Hg] Heriberto Davalos DO Work Phone: [facility] 03-25-2023 15:56-0500 Body height 177.8 cm Heriberto Davalos DO Work Phone: [facility] 03-25-2023 15:56-0500 Body mass index (BMI) [Ratio] 35.3 kg/m2 Heriberto Davalos DO Work Phone: [facility] 03-25-2023 15:56-0500 Body temperature 98.01 [degF] Heriberto Davalos DO Work Phone: [facility] 03-25-2023 15:56-0500 Body weight 111.58 kg Heriberto Davalos DO Work Phone: [facility] 03-25-2023 15:56-0500 Diastolic blood pressure 80 mm[Hg] Heriberto Davalos DO Work Phone: [facility] 03-25-2023 15:56-0500 Heart rate 81 /min Heriberto Davalos DO Work Phone: [facility] 03-25-2023 15:56-0500 Systolic blood pressure 124 mm[Hg] Heriberto Davalos DO Work Phone: [facility] 03-04-2023 16:07-0500 Body height 177.8 cm Heriberto Kingens DO Work Phone: [facility] 03-04-2023 16:07-0500 Body mass index (BMI) [Ratio] 35.58 kg/m2 Heribertokeshav Davalos DO Work Phone: [facility] 03-04-2023 16:07-0500 Body temperature 97.81 [degF] Heriberto Davalos DO Work Phone: [facility] 03-04-2023 16:07-0500 Body weight 112.49 kg Heriberto Dvaalos DO Work Phone: [facility] 03-04-2023 16:07-0500 Diastolic blood pressure 83 mm[Hg] Heriberto Davalos DO Work Phone: [facility] 03-04-2023 16:07-0500 Heart rate 85 /min Heriberto Davalos DO Work Phone: [facility] 03-04-2023 16:07-0500 Systolic blood pressure 138 mm[Hg] Heriberto Davalos DO Work Phone: [facility] 12-23-2022 15:41-0500 Body height 177.8 cm Phillip Bernal MD Work Phone: [facility] 12-23-2022 15:41-0500 Body mass index (BMI) [Ratio] 36.45 kg/m2 Phillip Bernal MD Work Phone: [facility] 12-23-2022 15:41-0500 Body weight 115.21 kg Phillip Bernal MD Work Phone: [facility] 12-23-2022 15:41-0500 Diastolic blood pressure 82 mm[Hg] Phillip Bernal MD Work Phone: [facility] 12-23-2022 15:41-0500 Heart rate 96 /min Phillip Bernal MD Work Phone: [facility] 12-23-2022 15:41-0500 Systolic blood pressure 120 mm[Hg] Phillip Bernal MD Work Phone: [facility] 07-03-2022 16:25-0400 Body height 177.8 cm Phillip Bernal Work Phone: [facility] DO Work Phone: 07-03-2022 16:25-0400 Body mass index (BMI) [Ratio] 36.3 kg/m2 Phillip Bernal Work Phone: [facility] DO Work Phone: 07-03-2022 16:25-0400 Body surface area Derived from formula 2.31 m2 Phillip Bernal Work Phone: [facility] DO Work Phone: 07-03-2022 16:25-0400 Body temperature 98 [degF] Phillip Bernal Work Phone: [facility] DO Work Phone: 07-03-2022 16:25-0400 Body weight 114.76 kg Phillip Bernal Work Phone: [facility] DO Work Phone: 07-03-2022 16:25-0400 Diastolic blood pressure 80 mm[Hg] Phillip Bernal Work Phone: [facility] DO Work Phone: 07-03-2022 16:25-0400 Heart rate 77 /min Phillip Bernal Work Phone: [facility] DO Work Phone: 07-03-2022 16:25-0400 Systolic blood pressure 120 mm[Hg] Phillip Bernal Work Phone: [facility] DO Work Phone: 12-26-2021 16:27-0500 Body height 177.8 cm Phillip Bernal Work Phone: [facility] Work Phone: 12-26-2021 16:27-0500 Body mass index (BMI) [Ratio] 36.45 kg/m2 Phillip Bernal Work Phone: [facility] Work Phone: 12-26-2021 16:27-0500 Body surface area Derived from formula 2.31 m2 Phillip Bernal Work Phone: [facility] Work Phone: 12-26-2021 16:27-0500 Body weight 115.21 kg Phillip Bernal Work Phone: [facility] Work Phone: 12-26-2021 16:27-0500 Diastolic blood pressure 64 mm[Hg] Phillip Bernal Work Phone: [facility] Work Phone: 12-26-2021 16:27-0500 Heart rate 88 /min Phillip Bernal Work Phone: [facility] Work Phone: 12-26-2021 16:27-0500 Systolic blood pressure 132 mm[Hg] Phillip Bernal Work Phone: [facility] Work Phone: 12-06-2021 14:41-0400 Body height 177.8 cm Phillip Bernal Work Phone: [facility] Work Phone: 12-06-2021 14:41-0400 Body mass index (BMI) [Ratio] 36.59 kg/m2 Phillip Bernal Work Phone: [facility] Work Phone: 12-06-2021 14:41-0400 Body surface area Derived from formula 2.31 m2 Phillip Bernal Work Phone: [facility] Work Phone: 12-06-2021 14:41-0400 Body weight 115.67 kg Phillip Bernal Work Phone: [facility] Work Phone: 12-06-2021 14:41-0400 Diastolic blood pressure 70 mm[Hg] Phillip Bernal Work Phone: [facility] Work Phone: 12-06-2021 14:41-0400 Heart rate 80 /min Phillip Bernal Work Phone: [facility] Work Phone: 12-06-2021 14:41-0400 Systolic blood pressure 116 mm[Hg] Phillip Bernal Work Phone: [facility] Work Phone: 09-05-2021 15:58-0400 Body height 177.8 cm Phillip Bernal Work Phone: [facility] Work Phone: 09-05-2021 15:58-0400 Body mass index (BMI) [Ratio] 37.31 kg/m2 Phillip Bernal Work Phone: [facility] Work Phone: 09-05-2021 15:58-0400 Body surface area Derived from formula 2.33 m2 Phillip Bernal Work Phone: [facility] Work Phone: 09-05-2021 15:58-0400 Body weight 117.94 kg Phillip Bernal Work Phone: [facility] Work Phone: 09-05-2021 15:58-0400 Diastolic blood pressure 68 mm[Hg] Phillip Bernal Work Phone: [facility] Work Phone: 09-05-2021 15:58-0400 Heart rate 88 /min Phillip Bernal Work Phone: [facility] Work Phone: 09-05-2021 15:58-0400 Systolic blood pressure 128 mm[Hg] Phillip Bernal Work Phone: [facility] Work Phone: 06-20-2021 15:54-0400 Body height 177.8 cm Phillip Bernal Work Phone: [facility] DO Work Phone: 06-20-2021 15:54-0400 Body mass index (BMI) [Ratio] 37.16 kg/m2 Phillip Bernal Work Phone: [facility] DO Work Phone: 06-20-2021 15:54-0400 Body surface area Derived from formula 2.33 m2 Phillip Bernal Work Phone: [facility] DO Work Phone: 06-20-2021 15:54-0400 Body temperature 97.4 [degF] Phillip Bernal Work Phone: [facility] DO Work Phone: 06-20-2021 15:54-0400 Body weight 117.48 kg Phillip Bernal Work Phone: [facility] DO Work Phone: 06-20-2021 15:54-0400 Diastolic blood pressure 62 mm[Hg] Phillip Bernal Work Phone: [facility] DO Work Phone: 06-20-2021 15:54-0400 Heart rate 80 /min Phillip Bernal Work Phone: [facility] DO Work Phone: 06-20-2021 15:54-0400 SaO2% (BldA) [Mass fraction] 96 % Phillip Bernal Work Phone: [facility] DO Work Phone: 06-20-2021 15:54-0400 Systolic blood pressure 112 mm[Hg] Phillip Bernal Work Phone: [facility] Work Phone: 05-23-2021 16:08-0400 Body height 177.8 cm Phillip Bernal Work Phone: [facility] Work Phone: 05-23-2021 16:08-0400 Body mass index (BMI) [Ratio] 37.31 kg/m2 Phillip Bernal Work Phone: [facility] Work Phone: 05-23-2021 16:08-0400 Body surface area Derived from formula 2.33 m2 Phillip Bernal Work Phone: [facility] Work Phone: 05-23-2021 16:08-0400 Body weight 117.94 kg Phillip Bernal Work Phone: [facility] Work Phone: 05-23-2021 16:08-0400 Diastolic blood pressure 64 mm[Hg] Phillip Bernal Work Phone: [facility] Work Phone: 05-23-2021 16:08-0400 Heart rate 80 /min Phillip Bernal Work Phone: [facility] Work Phone: 05-23-2021 16:08-0400 Systolic blood pressure 114 mm[Hg] Phillip Bernal Work Phone: [facility] Work Phone: 03-02-2021 16:24-0500 Body height 177.8 cm Phillip Bernal Work Phone: [facility] [place] Work Phone: 03-02-2021 16:24-0500 Body mass index (BMI) [Ratio] 36.45 kg/m2 Phillip Bernal Work Phone: [facility] [place] Work Phone: 03-02-2021 16:24-0500 Body surface area Derived from formula 2.31 m2 Phillip Bernal Work Phone: [facility] Work Phone: 03-02-2021 16:24-0500 Body weight 115.21 kg Phillip Bernal Work Phone: [facility] Work Phone: 11-30-2020 15:56-0400 Body height 180.34 cm Phillip Bernal Work Phone: [facility] DO Work Phone: 11-30-2020 15:56-0400 Body mass index (BMI) [Ratio] 35.84 kg/m2 Phillip Bernal Work Phone: [facility] DO Work Phone: 11-30-2020 15:56-0400 Body surface area Derived from formula 2.35 m2 Phillip Bernal Work Phone: [facility] DO Work Phone: 11-30-2020 15:56-0400 Body temperature 97.2 [degF] Phillip Bernal Work Phone: [facility] DO Work Phone: 11-30-2020 15:56-0400 Body weight 116.58 kg Phillip Bernal Work Phone: [facility] DO Work Phone: 11-30-2020 15:56-0400 Diastolic blood pressure 70 mm[Hg] Phillip Bernal Work Phone: [facility] DO Work Phone: 11-30-2020 15:56-0400 Heart rate 92 /min Phillip Bernal Work Phone: [facility] DO Work Phone: 11-30-2020 15:56-0400 Systolic blood pressure 110 mm[Hg] Phillip Bernal Work Phone: [facility] DO Work Phone: 11-30-2020 15:56-0400 0 1 Phillip Bernal Work Phone: [facility] DO Work Phone: Comment on above: PHQ-9 TS 11-22-2020 16:04-0400 Body height 180.34 cm Phillip Bernal Work Phone: [facility] Work Phone: 11-22-2020 16:04-0400 Body mass index (BMI) [Ratio] 35.57 kg/m2 Phillip Bernal Work Phone: [facility] Work Phone: 11-22-2020 16:04-0400 Body surface area Derived from formula 2.34 m2 Phillip Bernal Work Phone: [facility] Work Phone: 11-22-2020 16:04-0400 Body weight 115.67 kg Phillip Bernal Work Phone: [facility] Work Phone: 11-22-2020 16:04-0400 Diastolic blood pressure 64 mm[Hg] Phillip Bernal Work Phone: [facility] Work Phone: 11-22-2020 16:04-0400 Heart rate 84 /min Phillip Bernal Work Phone: [facility] Work Phone: 11-22-2020 16:04-0400 Systolic blood pressure 116 mm[Hg] Phillip Bernal Work Phone: [facility] Work Phone: 12-06-2019 18:00-0400 BMI (Body Mass Index) 35.57 kg/m2 [facility] [place] Work Phone: 12-06-2019 18:00-0400 Body weight 115.67 kg Marco [facility] Work Phone: 12-06-2019 18:00-0400 BSA (Body Surface Area) 2.34 m2 [facility] [facility] Work Phone: 12-06-2019 18:00-0400 Height 180.34 cm [facility] Work Phone: 10-06-2019 18:03-0400 BMI (Body Mass Index) 35.98 kg/m2 Rudi [facility] Work Phone: 10-06-2019 18:03-0400 Body weight 117.03 kg Rudi [facility] Work Phone: 10-06-2019 18:03-0400 BP Diastolic 72 mm[Hg] Rudi [facility] Work Phone: 10-06-2019 18:03-0400 BP Systolic 118 mm[Hg] Rudi [facility] Work Phone: 10-06-2019 18:03-0400 BSA (Body Surface Area) 2.35 m2 Rudi [facility] Work Phone: 10-06-2019 18:03-0400 Height 180.34 cm Rudi [facility] Work Phone: 10-06-2019 18:03-0400 Pulse (Heart Rate) 80 /min Rudi [facility] Work Phone: Encounters Encounter Date Encounter Type Care Provider Facility Start: 09-20-2024 Encounter for genera l adult medical examination without abnormal findings Mayco Fenton [facility] Start: 09-16-2024 End: 09-16-2024 ambulatory [facility] Start: 09-09-2024 End: 09-09-[address] Mayco Fenton MD Work Phone: -[facility] Start: 09-09-2024 End: 09-09-[address] Mayco Fenton MD -[facility] Start: 09-09-2024 End: 09-09-2024 ambulatory Mayco Fenton Facility:[facility] Start: 06-22-2024 End: 06-22-2024 Patient encounter procedure Ariel GUSTAFSON -[facility] Work Phone: Start: 06-22-2024 End: 06-22-2024 ambulatory Ariel GUSTAFSON Facility:[facility] Start: 04-19-2024 End: 04-19-2024 Office outpatient visit 15 minutes Heriberto Davalos DO Work Phone: [facility] Comment on above: Neuropathy (Primary Dx); Type 2 diabetes mellitus without complication, without long-term current use of insulin (Multi); Benign essential hypertension; Stage 3b chronic kidney disease (Multi); Type 2 diabetes mellitus with stage 3b chronic kidney disease, without long-term current use of insulin (Multi); Mixed hyperlipidemia; Thyroid disorder screening; Hyperuricemia; Prostate cancer screening Start: 04-19-2024 End: 04-19-2024 ambulatory [facility] Start: 03-03-2024 End: 03-03-2024 Office outpatient visit 15 minutes Heriberto Davalos DO Work Phone: [facility] Comment on above: Neuropathy (Primary Dx); Hypomagnesemia Start: 03-03-2024 End: 03-03-2024 ambulatory [facility] Start: 02-13-2024 End: 02-13-2024 Office outpatient visit 15 minutes Goyo Snider MD Work Phone: [facility] Comment on above: Thyroid nodule (Prim bud Dx) Start: 02-13-2024 End: 02-13-2024 ambulatory [facility] Start: 02-07-2024 End: 02-07-2024 Emergency department patient visit Phillip Dumont DO Work Phone: [facility] Comment on above: Viral upper respirat ory illness (Primary Dx) Start: 02-03-2024 End: 02-03-2024 ambulatory [facility] Start: 01-21-2024 End: 01-21-2024 Subsequent hospital visit by physician Cooper [id number] Ultrasound [facility] Comment on above: Thyroid nodule Start: 12-10-2023 End: 12-10-2023 Office outpatient new 45 minutes Mahesh Elizabeth Orlando INFORMATION ANALYST-CRIMINAL RECORDS TECHNICIAN Work Phone: [facility] 1 Comment on above: Nephrolithiasis Start: 12-10-2023 End: 12-10-2023 ambulatory [facility] Start: 11-25-2023 End: 11-25-2023 Office outpatient visit 15 minutes Heriberto Davalos DO Work Phone: [facility] Comment on above: Benign essential hyp ertension (Primary Dx); Type 2 diabetes mellitus with stage 3b chronic kidney disease, without long-term current use of insulin (Multi); Hyperuricemia; Nephrolithiasis; Thyroid nodule Start: 11-25-2023 End: 11-25-2023 ambulatory [facility] Start: 11-13-2023 End: 11-13-2023 ambulatory [facility] Start: 11-13-2023 End: 11-13-2023 Subsequent hospital visit by physician Cooper [id number] X-Ray 1 [facility] Comment on above: Nephrolithiasis Start: 11-12-2023 End: 11-12-2023 Office consultation new/estab patient 60 min Goyo Snider MD Work Phone: [facility] Comment on above: Thyroid nodule Start: 11-12-2023 End: 11-12-2023 ambulatory [facility] Ambulatory Start: 11-11-2023 End: 11-11-2023 Office outpatient visit 15 minutes Heriberto Diamond Davalos DO Work Phone: [facility] Comment on above: Nephrolithiasis (Jenny alessandra Dx); Benign essential hypertension; Stage 3b chronic kidney disease (Multi); Type 2 diabetes mellitus with stage 3b chronic kidney disease, without long-term current use of insulin (Multi); Left eye pain Start: 11-11-2023 End: 11-11-2023 ambulatory HERIBERTO Fields [facility] Ambulatory Start: 10-28-2023 End: 10-28-2023 Office outpatient visit 25 minutes Heriberto Davalos DO Work Phone: [facility] Comment on above: Type 2 diabetes sana itus with stage 3b chronic kidney disease, without long-term current use of insulin (Multi) (Primary Dx); Benign essential hypertension; Stage 3b chronic kidney disease (Multi); Mixed hyperlipidemia; Hyperuricemia; Nephrolithiasis Start: 10-28-2023 End: 10-28-2023 ambulatory [facility] Ambulatory Start: 10-27-2023 End: 10-27-2023 Emergency department patient visit HERIBERTO DAVALOS [facility] Comment on above: Nephrolithiasis (Jenny alessandra Dx) Start: 09-22-2023 End: 09-22-2023 ambulatory [facility] Start: 08-02-2023 End: 08-02-2023 Subsequent hospital visit by physician Marty Ultrasound 1 [facility] Comment on above: Multinodular goiter Start: 07-23-2023 End: 07-23-2023 Office outpatient visit 25 minutes Heriberto Davalos DO Work Phone: [facility] Comment on above: Type 2 diabetes sana itus with stage 3b chronic kidney disease, without long-term current use of insulin (Multi) (Primary Dx); Benign essential hypertension; Multinodular goiter; Prostate cancer screening; Thyroid disorder screening; Mixed hyperlipidemia; Hyperuricemia; Stage 3b chronic kidney disease (Multi) Start: 04-23-2023 End: 04-23-2023 Office outpatient visit 15 minutes Heriberto Davalos DO Work Phone: [facility] Comment on above: Type 2 diabetes sana itus with stage 3b chronic kidney disease, without long-term current use of insulin (CMS/HCC) (Primary Dx); Ankylosing spondylitis of thoracolumbar region (CMS/HCC) Start: 03-25-2023 End: 03-25-2023 Office outpatient visit 15 minutes Heriberto Davalos DO Work Phone: [facility] Comment on above: Type 2 diabetes sana itus with stage 3b chronic kidney disease, without long-term current use of insulin (CMS/HCC) (Primary Dx); Neck pain on left side; Benign essential hypertension Start: 03-06-2023 End: 03-06-2023 ambulatory HERIBERTO DAVALOS [facility] Start: 03-04-2023 End: 03-04-2023 Office outpatient visit 15 minutes Heriberto Davalos DO Work Phone: [facility] Comment on above: Type 2 diabetes sana itus with diabetic polyneuropathy, without long-term current use of insulin (CMS/HCC) (Primary Dx); Ankylosing spondylitis of thoracolumbar region (CMS/[facility]); Benign essential hypertension; Asymptomatic hyperuricemia; Thyroid disorder screening; Neuropathy Start: 01-31-2023 End: 02-01-2023 ambulatory TRISHA SIMONS MD Facility:[facility] Start: 12-23-2022 End: 12-23-2022 Office outpatient visit 25 minutes Phillip Bernal MD Work Phone: [facility] Comment on above: Ankylosing spondylit is of thoracolumbar region ([facility]) (Primary Dx); Benign essential hypertension; Asymptomatic hyperuricemia; Type 2 diabetes mellitus with other specified complication, without long-term current use of insulin ([facility]); Hyperlipidemia, unspecified hyperlipidemia type Start: 12-23-2022 Patient encounter status Cristin Davalos DO Work Phone: [facility] Work Phone: Start: 11-03-2022 Rx Renewal Phillip Bernal Work Phone: [facility] DO Work Phone: Start: 10-14-2022 AUDIT Phillip Bernal Work Phone: [facility] DO Work Phone: Start: 09-19-2022 Chart Update Phillip Bernal Work Phone: [facility] DO Work Phone: Start: 09-18-2022 Chart Update Phillip Bernal Work Phone: [facility] DO Work Phone: Start: 09-18-[address] Phillip Bernal Jr Facility:[id number] Start: 09-18-[address] Phillip Bernal Jr Facility:[id number] Start: 09-05-2022 Rx Renewal Phillip Bernal Work Phone: [facility] DO Work Phone: Start: 07-17-2022 Rx Renewal Phillip Bernal Work Phone: [facility] DO Work Phone: Start: 06-27-2022 Chart Update Phillip Bernal Work Phone: [facility] DO Work Phone: Start: 05-27-2022 AUDIT Phillip Bernal Work Phone: [facility] DO Work Phone: Start: 05-17-2022 Rx Renewal Phillip Bernal Work Phone: [facility] DO Work Phone: Start: 04-24-2022 Rx Renewal Phillip Bernal Work Phone: [facility] DO Work Phone: Start: 02-05-2022 Rx Renewal Phillip Bernal Work Phone: [facility] DO Work Phone: Start: 01-05-2022 Chart Update Phillip Bernal Work Phone: [facility] DO Work Phone: Start: 12-31-2021 Rx Renewal Phillip Bernal Work Phone: [facility] DO Work Phone: Start: 12-26-2021 Office outpatient vi sit 25 minutes Phillip Bernal Work Phone: [facility] Work Phone: Start: 12-21-2021 Chart Update Phillip Bernal Work Phone: [facility] Work Phone: Start: 12-20-[address] Phillip Bernal Facility:[id number] Start: 12-10-2021 Rx Renewal Phillip Bernal Work Phone: [facility] Work Phone: Start: 12-06-2021 AUDIT Phillip Bernal Work Phone: [facility] Work Phone: Start: 09-05-2021 FUV, Provider: Rudi Abdi, Status: Pen, Time: 4:00 PM Phillip Bernal Work Phone: [facility] Work Phone: Start: 09-05-2021 Office outpatient vi sit 25 minutes Phillip Bernal Work Phone: [facility] Work Phone: Start: 09-04-2021 AUDIT Phillip Bernal Work Phone: [facility] Work Phone: Start: 08-26-2021 Rx Renewal Phillip Bernal Work Phone: [facility] DO Work Phone: Start: 08-13-2021 Rx Renewal Phillip Bernal Work Phone: [facility] DO Work Phone: Start: 07-29-2021 Rx Renewal Phillip Bernal Work Phone: [facility] Work Phone: Start: 07-03-2021 Rx Renewal Phillip Bernal Work Phone: [facility] DO Work Phone: Start: 06-20-2021 FUV, Provider: Phillip Bernal, Status: Pen, Time: 4:00 PM Phillip Bernal Work Phone: [facility] DO Work Phone: Start: 06-20-2021 Office outpatient vi sit 15 minutes Phillip Bernal Work Phone: [facility] DO Work Phone: Start: 06-19-2021 Chart Update Phillip Bernal Work Phone: [facility] DO Work Phone: Start: 06-05-2021 Rx Renewal Phillip Bernal Work Phone: [facility] DO Work Phone: Start: 05-23-2021 FUV, Provider: Rudi Abdi, Status: Pen, Time: 4:00 PM Phillip Bernal Work Phone: [facility] Work Phone: Start: 05-23-2021 Office outpatient vi sit 25 minutes Phillip Bernal Work Phone: [facility] Work Phone: Start: 05-22-2021 AUDIT Phillip Bernal Work Phone: [facility] Work Phone: Start: 05-15-2021 Rx Renewal Phillip Bernal Work Phone: [facility] Work Phone: Start: 04-30-2021 Rx Renewal Phillip Bernal Work Phone: [facility] DO Work Phone: Start: 04-13-2021 Patient encounter procedure [facility] [place] Work Phone: Start: 04-02-2021 Rx Renewal Phillip Bernal Work Phone: [facility] DO Work Phone: Start: 03-02-2021 Patient encounter procedure Phillip Bernal Work Phone: [facility] [place] Work Phone: Start: 02-04-2021 Rx Renewal Phillip Bernal Work Phone: [facility] DO Work Phone: Start: 01-26-2021 Rx Renewal Phillip Bernal Work Phone: [facility] DO Work Phone: Start: 11-30-2020 Office outpatient vi sit 25 minutes Phillip Bernal Work Phone: [facility] DO Work Phone: Start: 11-22-2020 FUV, Provider: Rudi Abdi, Status: Pen, Time: 4:00 PM Phillip Bernal Work Phone: [facility] Work Phone: Start: 11-22-2020 Office outpatient vi sit 25 minutes Phillip Bernal Work Phone: [facility] Work Phone: Start: 11-21-2020 AUDIT Phillip Bernal Work Phone: [facility] Work Phone: Start: 07-24-2020 Rx Renewal Phillip Bernal Work Phone: [facility] Work Phone: Start: 05-24-2020 Patient encounter procedure Rudi Abdi MD [id number] Work Phone: Start: 12-06-2019 Patient encounter procedure [facility] Work Phone: Start: 10-06-2019 Patient encounter procedure Rudi Chavezam [facility] Work Phone: Start: 04-01-2019 Patient encounter procedure Rudi Parsonskham [facility] Work Phone: Start: 12-04-2018 Patient encounter procedure Rudi Chavezam [facility] Work Phone: Start: 10-01-2018 Patient encounter procedure Rudi Chavezam [facility] Work Phone: Start: 04-02-2018 Patient encounter procedure Rudi Parsonskham [facility] Work Phone: Start: 12-18-2017 Patient encounter procedure Rudi Parsonskham [facility] Work Phone: Start: 09-16-2017 Patient encounter procedure Rudi Parsonskham [facility] Work Phone: Start: 06-11-2017 Patient encounter procedure Rudi Parsonskham [facility] Work Phone: Start: 06-06-2017 Ambulatory PROVIDER UNKNOWN Facili ty:[id number] Start: 05-23-2017 Ambulatory FLAQUITO ABIOSE Facility :[id number] Start: 05-19-2017 Ambulatory FLAQUITO ABIOSE Facility :[id number] Start: 05-02-2017 Patient encounter procedure Rudi Chavezam [facility] Work Phone: Patient encounter status Phillip Bernal Work Phone: [facility] Work Phone: Procedures Date Procedure Procedure Detail Performing Clinician Start: 09-09-2024 Prostate specific an tigen measurement Dr. Mayco Fenton MD Work Phone: Comment on above: This test was perfor med using the [employer] tPSA method. Measured values of a patient sample can vary depending on the testing procedure used. PSA values determined on patient samples by different testing procedures cannot be used interchangeably. If there is a change in PSA assays while monitoring therapy, sequential testing should be performed to confirm baseline values. Start: 09-09-2024 Urine microalbumin/c reatinine ratio measurement Dr. Mayco Fenton MD Work Phone: Start: 04-13-2024 Lipid 1996 panel - S rl or Plasma Heriberto Davalos DO Work Phone: Start: 02-07-2024 Comprehensive metabolic panel Mayco Woods DO Work Phone: Start: 02-07-2024 EXTRA TUBES Phillip T Nuha hns DO Work Phone: Start: 02-07-2024 LAVENDER TOP Phillip T Nuha hns DO Work Phone: Start: 02-07-2024 PST TOP Phillip T Nuha hns DO Work Phone: Start: 02-07-2024 Radiologic exam ches t single view Mayco Woods DO Work Phone: Start: 02-07-2024 Influenza virus A an d B and SARS-CoV-2 (COVID-19) identified in Respiratory specimen by TICO with probe detection Mayco Woods DO Work Phone: Start: 02-07-2024 Respiratory syncytia l virus RNA [Presence] in Respiratory specimen by TICO with probe detection Mayco Woods DO Work Phone: Start: 10-28-2023 Hemoglobin glycosylated a1c Heriberto Davalos DO Work Phone: Start: 10-27-2023 Ct abdomen & pelvis w/contrast material Theron Ribera PA-C Work Phone: Start: 10-27-2023 Urinalysis microscop ic panel - Urine Qualitative by Automated Leda Boyd MD Work Phone: Start: 10-27-2023 Urnls dip stick/tabl et reagent auto microscopy Leda Boyd MD Work Phone: Start: 10-27-2023 Comprehensive metabolic panel Leda Boyd MD Work Phone: Start: 09-19-2023 Lipid 1996 panel - S rl or Plasma Phillip Bernal MD Start: 07-23-2023 Hemoglobin glycosylated a1c Heriberto Davalos DO Work Phone: Start: 03-06-2023 ALBUMIN, URINE RANDOM M ATTFABRICIOW ANOOP Start: 03-06-2023 CBC W Auto Different ial panel - Blood HERIBERTO DAVALOS Start: 03-06-2023 Comprehensive metabo lic 2000 panel - Serum or Plasma HERIBERTO DAVALOS Start: 03-06-2023 Cyanocobalamin vitamin b-12 HERIBERTO DAVALOS Start: 03-06-2023 Hemoglobin A1c/Hemoglobin.total in Blood HERIBERTO DAVALOS Start: 03-06-2023 Lipid panel HERIBERTO GRIGSBY Start: 03-06-2023 TSH WITH REFLEX TO F REE T4 IF ABNORMAL HERIBERTO DAVALOS Start: 03-06-2023 Urate [Mass/volume] in Serum or Plasma HERIBERTO DAVALOS Start: 03-06-2023 Lipid 1996 panel - S rl or Plasma Heriberto Davalos DO Work Phone: Start: 05-05-2020 Lipid 1996 panel - S rl or Plasma Phillip Bernal MD Work Phone: Start: 03-23-2020 Antibody screen Comment on above: Order Comment: CONSE RVATION CBN: NO Kim: MAIN Transfusion Status: CONSERVATION Blood Bank service requested: TYPE AND SCREEN Comments To Phleb: PATIENT IN SDS Performed By: #### B [id number] #### Test performed at: [address] [address] Start: 01-26-2020 Antibody screen Comment on above: Order Comment: Trans fusion Status: CONSERVATION Blood Bank service requested: TYPE AND SCREEN Comments To Phleb: pre-op in PAT Performed By: #### B 100.0201 #### Test performed at: [address] [place] [address] Start: 10-05-2019 IO glucose, blood, f oscar stick via hand held monitor Rudi Abdi Start: 10-05-2019 IO Hgb A1C Rudi castillo Start: 02-13-2018 PSA screening Comment on above: Result Comment: The FDA requires that the method used for PSA assay be reported to the physician. Values obtained with different assay methods must not be used interchangeably. uses the [employer] Centaur PSA method, which is a sandwich immunoassay using chemiluminescence for quantitation. The assay is approved for measurement of prostate-specific antigen (PSA) in serum and may be used in conjunction with a digital rectal examination in men 50 years and older as an aid in detection of prostate cancer. Performed at: [facility] [address] [place] [address] Performed By: #### L ELANA WILLSON #### [facility] [address] [place] [address] Start: 11-24-2010 Total colonoscopy Phillip Bernal Work Phone: History of Inner Ear Surgery Rudi Abdi History of Spinal Arthrodesis Rudi Parsonskham Procedure on back Phillip francois Work Phone: Prosthetic arthropla sty of the hip Phillip Bernal Work Phone: Tonsillectomy Rudi Abdi Total colonoscopy Phillip francois Work Phone: Total replacement of hip Dami carolina Bernal Work Phone: Plan of Treatment Date Care Activity Detail Author Start: 07-20-2028 DTaP/Tdap/Td Vaccine s (3 - Td or Tdap) DTaP/Tdap/Td Vaccines (3 - Td or Tdap) [facility] Start: 04-13-2025 Lipid panel Lipid Panel [facility] Start: 12-31-2024 Screening for malign ant neoplasm of colon [facility] Start: 10-18-2024 Influenza vaccination Influenz a Vaccine (Season Ended) [facility] Start: 10-11-2024 End: 04-19-2025 Comprehensive metabolic 2000 panel - Serum or Plasma Comprehensive metabolic panel Lab Routine Mixed hyperlipidemia Expected: 10/11/2024 (Approximate), Expires: 04/19/2025 [facility] Work Phone: Comment on above: Expected: 10/11/2024 (Approximate), Expires: 04/19/2025 Start: 10-11-2024 End: 04-19-2025 Hemoglobin A1c/Hemoglobin.total in Blood Hemoglobin A1C Lab Routine Type 2 diabetes mellitus with stage 3b chronic kidney disease, without long-term current use of insulin (Multi) Expected: 10/11/2024 (Approximate), Expires: 04/19/2025 [facility] Service Area Work Phone: Comment on above: Expected: 10/11/2024 (Approximate), Expires: 04/19/2025 Start: 10-11-2024 End: 04-19-2025 Lipid 1996 panel - Serum or Plasma Lipid panel Lab Routine Mixed hyperlipidemia Expected: 10/11/2024 (Approximate), Expires: 04/19/2025 [facility] Work Phone: Comment on above: Expected: 10/11/2024 (Approximate), Expires: 04/19/2025 Start: 10-11-2024 End: 04-19-2025 Prostate specific Ag [Mass/volume] in Serum or Plasma Prostate Spec.Ag,Screen Lab Routine Prostate cancer screening Expected: 10/11/2024 (Approximate), Expires: 04/19/2025 [facility] Work Phone: Comment on above: Expected: 10/11/2024 (Approximate), Expires: 04/19/2025 Start: 10-11-2024 End: 04-19-2025 Serum Protein Electrophoresis + Immunofixation Serum Protein Electrophoresis + Immunofixation Lab Routine Neuropathy Expected: 10/11/2024 (Approximate), Expires: 04/19/2025 [facility] Work Phone: Comment on above: Expected: 10/11/2024 (Approximate), Expires: 04/19/2025 Start: 10-11-2024 End: 04-19-2025 TSH with reflex to Free T4 if abnormal TSH with reflex to Free T4 if abnormal Lab Routine Thyroid disorder screening Expected: 10/11/2024 (Approximate), Expires: 04/19/2025 [facility] Work Phone: Comment on above: Expected: 10/11/2024 (Approximate), Expires: 04/19/2025 Start: 10-11-2024 End: 04-19-2025 Urate [Mass/volume] in Serum or Plasma Uric acid Lab Routine Hyperuricemia Expected: 10/11/2024 (Approximate), Expires: 04/19/2025 [facility] Work Phone: Comment on above: Expected: 10/11/2024 (Approximate), Expires: 04/19/2025 Start: 09-20-2024 End: 09-20-2024 Patient encounter procedure 09/20/2024 3:40 PM EDT Office Visit [facility] [id number] [place] [address] [address] [place] [phone] [place] [address] [facility] [address] [place] [address] [facility] Start: 09-18-2024 Lipid panel Lipid Panel [facility] Start: 08-27-2024 End: 08-27-2024 Patient encounter procedure 08/27/2024 3:45 PM EDT Office Visit [facility] [address] [place] [address] [place] [address] [address] [place] [address] [facility] Start: 08-17-2024 End: 08-17-2024 Patient encounter procedure 08/17/2024 3:45 PM EDT Appointment [facility] [address] [place] [address] [facility] Start: 08-17-2024 End: 02-15-2025 US Thyroid gland US thyroid Imaging Routine Thyroid nodule Expected: 08/17/2024, Expires: 02/15/2025 [facility] Work Phone: Comment on above: Expected: 08/17/2024 , Expires: 02/15/2025 Start: 07-11-2024 Hemoglobin A1c measurement Diabetes: Hemoglobin A1C [facility] Start: 04-19-2024 End: 04-19-2024 Patient encounter procedure 04/19/2024 4:00 PM EST Office Visit [facility] [address] [place] [phone] [place] [address] [address] [place] [address] [facility] Start: 03-21-2024 End: 10-27-2024 CBC W Auto Differential panel - Blood CBC and Auto Differential Lab Routine Benign essential hypertension Mixed hyperlipidemia Expected: 03/21/2024 (Approximate), Expires: 10/27/2024 [facility] Work Phone: Comment on above: Expected: 03/21/2024 (Approximate), Expires: 10/27/2024 Start: 03-21-2024 End: 10-27-2024 Comprehensive metabolic 2000 panel - Serum or Plasma Comprehensive metabolic panel Lab Routine Benign essential hypertension Mixed hyperlipidemia Expected: 03/21/2024 (Approximate), Expires: 10/27/2024 [facility] Work Phone: Comment on above: Expected: 03/21/2024 (Approximate), Expires: 10/27/2024 Start: 03-21-2024 End: 10-27-2024 Hemoglobin A1c/Hemoglobin.total in Blood Hemoglobin A1C Lab Routine Type 2 diabetes mellitus with stage 3b chronic kidney disease, without long-term current use of insulin (Multi) Expected: 03/21/2024 (Approximate), Expires: 10/27/2024 [facility] Work Phone: Comment on above: Expected: 03/21/2024 (Approximate), Expires: 10/27/2024 Start: 03-21-2024 End: 10-27-2024 Lipid 1996 panel - Serum or Plasma Lipid panel Lab Routine Mixed hyperlipidemia Expected: 03/21/2024 (Approximate), Expires: 10/27/2024 [facility] Work Phone: Comment on above: Expected: 03/21/2024 (Approximate), Expires: 10/27/2024 Start: 03-21-2024 End: 10-27-2024 Microalbumin/Creatinine [Mass Ratio] in Urine Albumin-Creatinine Ratio, Urine Random Lab Routine Type 2 diabetes mellitus with stage 3b chronic kidney disease, without long-term current use of insulin (Multi) Expected: 03/21/2024 (Approximate), Expires: 10/27/2024 [facility] Work Phone: Comment on above: Expected: 03/21/2024 (Approximate), Expires: 10/27/2024 Start: 03-21-2024 End: 10-27-2024 Urate [Mass/volume] in Serum or Plasma Uric acid Lab Routine Hyperuricemia Expected: 03/21/2024 (Approximate), Expires: 10/27/2024 [facility] Work Phone: Comment on above: Expected: 03/21/2024 (Approximate), Expires: 10/27/2024 Start: 03-17-2024 End: 03-17-2024 Patient encounter procedure 03/17/2024 3:30 PM EST Office Visit [address] [phone] Gideon Thompson MD [address] [place] [address], [address] [address] [place] [address] Start: 03-06-2024 Lipid panel Lipid Panel [facility] Start: 03-06-2024 Urine screening for protein Diabetes: Urine Protein Screening [facility] Start: 03-03-2024 End: 03-03-2024 Patient encounter procedure 03/03/2024 4:00 PM EST Office Visit [facility] [address] [place] [phone] [place] [address] [place] [address] [facility] Start: 03-03-2024 End: 03-03-2025 Cobalamin (Vitamin B12) [Mass/volume] in Serum or Plasma Vitamin B12 Lab Routine Neuropathy Expected: 03/03/2024 (Approximate), Expires: 03/03/2025 [facility] Work Phone: Comment on above: Expected: 03/03/2024 (Approximate), Expires: 03/03/2025 Start: 03-03-2024 End: 03-03-2025 Magnesium [Mass/volume] in Serum or Plasma Magnesium Lab Routine Hypomagnesemia Expected: 03/03/2024 (Approximate), Expires: 03/03/2025 [facility] Service Area Work Phone: Comment on above: Expected: 03/03/2024 (Approximate), Expires: 03/03/2025 Start: 02-13-2024 End: 02-13-2024 Patient encounter procedure [facility] Start: 02-03-2024 End: 02-03-2024 Patient encounter procedure 02/03/2024 1:00 PM EST Office Visit [address] [phone] Gideon Thompson MD [address] [place] [address], [address] [address] [place] [address] Start: 01-27-2024 Hemoglobin A1c measurement Diabetes: Hemoglobin A1C [facility] Start: 12-25-2023 End: 12-25-2023 Patient encounter procedure 12/25/2023 3:30 PM EST Office Visit [address] [phone] Gideno Thompson MD [address] [place] [address], [address] [phone] [facility] 1 Start: 12-25-2023 Yearly Adult Physical Yearly Adult P [facility] Start: 11-26-2023 End: 11-26-2023 Patient encounter procedure 11/26/2023 9:30 AM EDT Office Visit [facility] 1 [address] [facility] [address] [place] [address] Mahesh Santos, INFORMATION ANALYST-CRIMINAL RECORDS TECHNICIAN [address] [facility] [address] [place] [address] [facility] 1 Start: 11-25-2023 End: 11-25-2023 Patient encounter procedure 11/25/2023 4:00 PM EDT Office Visit [facility] [address] [place] [phone] [place] [address] [place] [address] [facility] Start: 11-12-2023 End: 11-12-2023 Patient encounter procedure 11/12/2023 3:30 PM EDT Office Visit [facility] [address] [place] [phone] [place] [address] [address] [facility] [place] [address] [facility] Start: 11-12-2023 End: 11-11-2024 US Thyroid gland US thyroid Imaging Routine Thyroid nodule Expected: 11/12/2023, Expires: 11/11/2024 [facility] Service Area Work Phone: Comment on above: Expected: 11/12/2023 , Expires: 11/11/2024 Start: 11-11-2023 End: 11-10-2024 XR Abdomen Single view XR abdomen 1 view Imaging Routine Nephrolithiasis Expected: 11/11/2023, Expires: 11/10/2024 [facility] Work Phone: Comment on above: Expected: 11/11/2023 , Expires: 11/10/2024 Start: 10-28-2023 End: 10-28-2023 Patient encounter procedure 10/28/2023 4:00 PM EDT Office Visit [facility] [address] [place] [address] [place] [address] [place] [address] [facility] Start: 10-23-2023 Hemoglobin A1c measurement Diabetes: Hemoglobin A1C [facility] Start: 10-19-2023 Influenza vaccination [facility] Start: 09-22-2023 End: 09-22-2023 Patient encounter procedure [facility] Start: 09-19-2023 End: 09-19-2023 ambulatory 09/19/2023 11:00 AM EDT Lab [facility] [address] [place] [address] [facility] Start: 09-18-2023 End: 07-22-2024 Comprehensive metabolic 2000 panel - Serum or Plasma Comprehensive metabolic panel Lab Routine Benign essential hypertension Type 2 diabetes mellitus with stage 3b chronic kidney disease, without long-term current use of insulin (Multi) Expected: 09/18/2023 (Approximate), Expires: 07/22/2024 [facility] Work Phone: Comment on above: Expected: 09/18/2023 (Approximate), Expires: 07/22/2024 Start: 09-18-2023 End: 07-22-2024 Lipid 1996 panel - Serum or Plasma Lipid panel Lab Routine Mixed hyperlipidemia Expected: 09/18/2023 (Approximate), Expires: 07/22/2024 [facility] Work Phone: Comment on above: Expected: 09/18/2023 (Approximate), Expires: 07/22/2024 Start: 09-18-2023 End: 07-22-2024 Parathyrin.intact [Mass/volume] in Serum or Plasma PTH, intact Lab Routine Stage 3b chronic kidney disease (Multi) Expected: 09/18/2023 (Approximate), Expires: 07/22/2024 [facility] Work Phone: Comment on above: Expected: 09/18/2023 (Approximate), Expires: 07/22/2024 Start: 09-18-2023 End: 07-22-2024 Phosphate [Mass/volume] in Serum or Plasma Phosphorus Lab Routine Stage 3b chronic kidney disease (Multi) Expected: 09/18/2023 (Approximate), Expires: 07/22/2024 [facility] Work Phone: Comment on above: Expected: 09/18/2023 (Approximate), Expires: 07/22/2024 Start: 09-18-2023 End: 07-22-2024 Prostate specific Ag [Mass/volume] in Serum or Plasma Prostate Spec.Ag,Screen Lab Routine Prostate cancer screening Expected: 09/18/2023 (Approximate), Expires: 07/22/2024 [facility] Work Phone: Comment on above: Expected: 09/18/2023 (Approximate), Expires: 07/22/2024 Start: 09-18-2023 End: 07-22-2024 TSH with reflex to Free T4 if abnormal TSH with reflex to Free T4 if abnormal Lab Routine Thyroid disorder screening Expected: 09/18/2023 (Approximate), Expires: 07/22/2024 [facility] Work Phone: Comment on above: Expected: 09/18/2023 (Approximate), Expires: 07/22/2024 Start: 09-18-2023 End: 07-22-2024 Urate [Mass/volume] in Serum or Plasma Uric acid Lab Routine Hyperuricemia Expected: 09/18/2023 (Approximate), Expires: 07/22/2024 [facility] Work Phone: Comment on above: Expected: 09/18/2023 (Approximate), Expires: 07/22/2024 Start: 09-18-2023 End: 07-22-2024 Urinalysis complete panel - Urine Urinalysis with Reflex Microscopic Lab Routine Benign essential hypertension Type 2 diabetes mellitus with stage 3b chronic kidney disease, without long-term current use of insulin (Multi) Expected: 09/18/2023 (Approximate), Expires: 07/22/2024 [facility] Work Phone: Comment on above: Expected: 09/18/2023 (Approximate), Expires: 07/22/2024 Start: 07-23-2023 End: 07-23-2023 Patient encounter procedure 07/23/2023 4:00 PM EDT Office [facility] [address] [place] [address] [place] [address] [place] [address] [facility] Start: 06-05-2023 Hemoglobin A1c measurement Diabetes: Hemoglobin A1C [facility] Start: 04-23-2023 End: 04-23-2023 Patient encounter procedure 04/23/2023 4:00 PM EST Office [facility] [address] [place] [address] [place] [address] [place] [address] [facility] Start: 03-04-2023 End: 03-04-2023 Patient encounter procedure 03/04/2023 4:00 PM EST Office [facility] [address] [place] [address] [place] [address] [place] [address] [facility] Start: 12-20-2022 Urine screening for protein Diabetes: Urine Protein Screening [facility] Start: 12-19-2022 Hemoglobin A1c measurement Diabetes: Hemoglobin A1C [facility] Start: 12-12-2022 PHYSICAL, Provider: Phillip Bernal, Status: Pen, Time: 4:30 PM PHYSICAL, Provider: Phillip Bernal, Status: Pen, Time: 4:30 PM [facility] DO Work Phone: Start: 10-18-2022 Influenza vaccination Influenza Vacc ine (#1) [facility] Start: 2022 RSV High Risk: (Elde rly (60+) or Population) (1 - Risk 60-74 years 1-dose series) RSV High Risk: (Elderly (60+) or Population) (1 - Risk 60-74 years 1-dose series) [facility] Start: 2022 RSV patient s and/or patients aged 60+ years (1 - 1-dose 60+ series) RSV patients and/or patients aged 60+ years (1 - 1-dose 60+ series) [facility] Start: 07-03-2022 FUV, Provider: Phillip Bernal, Status: Pen, Time: 4:30 PM FUV, Provider: Phillip Bernal, Status: Pen, Time: 4:30 PM [facility] Work Phone: Start: 04-24-2022 Glaucoma screening Diabetes: R etinopathy Screening [facility] Start: 12-26-2021 FUVEXT, Provider: Rudi Abdi, Status: Pen, Time: 4:30 PM FUVEXT, Provider: Rudi Abdi, Status: Pen, Time: 4:30 PM [facility] Work Phone: Start: 12-14-2021 FUVEXT, Provider: Rudi Abdi, Status: Pen, Time: 4:00 PM FUVEXT, Provider: Rudi bAdi, Status: Pen, Time: 4:00 PM [facility] Work Phone: Start: 10-04-2021 PHYSICAL, Provider: Phillip Bernal, Status: Pen, Time: 4:15 PM PHYSICAL, Provider: Phillip Bernal, Status: Pen, Time: 4:15 PM [facility] DO Work Phone: Start: 09-05-2021 FUV, Provider: Rudi Abdi, Status: Pen, Time: 4:00 PM FUV, Provider: Rudi Abdi, Status: Pen, Time: 4:00 PM [facility] Work Phone: Start: 06-20-2021 FUV, Provider: Phillip Bernal, Status: Pen, Time: 4:00 PM FUV, Provider: Phillip Bernal, Status: Pen, Time: 4:00 PM [facility] DO Work Phone: Start: 06-06-2021 FUV, Provider: Phillip Bernal, Status: Pen, Time: 4:00 PM FUV, Provider: Phillip Bernal, Status: Pen, Time: 4:00 PM [facility] DO Work Phone: Start: 05-23-2021 FUV, Provider: Rudi Abdi, Status: Pen, Time: 4:00 PM FUV, Provider: Rudi Abdi, Status: Pen, Time: 4:00 PM [facility] Work Phone: Start: 05-05-2021 Lipid panel Lipid Panel [facility] Start: 04-24-2021 Glaucoma screening Diabetes: R etinopathy Screening [facility] Start: 04-13-2021 FUV, Provider: Marco Ludwig, Status: Pen, Time: 4:00 PM FUV, Provider: Marco Ludwig, Status: Pen, Time: 4:00 PM [facility] Work Phone: Start: 11-30-2020 FUV, Provider: Phillip Bernal, Status: Pen, Time: 4:00 PM FUV, Provider: Phillip Bernal, Status: Pen, Time: 4:00 PM [facility] Work Phone: Start: 11-22-2020 FUV, Provider: Rudi Abdi, Status: Pen, Time: 4:00 PM FUV, Provider: Rudi Abdi, Status: Pen, Time: 4:00 PM [facility] Work Phone: Start: 04-29-2009 Pneumococcal vaccination Pneum ococcal Vaccine (2 of 2 - PCV) [facility] Start: 04-29-2009 Pneumococcal Vaccine : Pediatrics (0 to 5 Years) and At-Risk Patients (6 to 64 Years) (2 - PCV) Pneumococcal Vaccine: Pediatrics (0 to 5 Years) and At-Risk Patients (6 to 64 Years) (2 - PCV) [facility] Start: 04-29-2009 Pneumococcal Vaccine : Pediatrics (0 to 5 Years) and At-Risk Patients (6 to 64 Years) (2 of 2 - PCV) Pneumococcal Vaccine: Pediatrics (0 to 5 Years) and At-Risk Patients (6 to 64 Years) (2 of 2 - PCV) [facility] Start: 1981 Hepatitis A Vaccines (1 of 2 - Risk 2-dose series) Hepatitis A Vaccines (1 of 2 - Risk 2-dose series) [facility] Start: 1981 Zoster Vaccines (1 of 2) Zoste r Vaccines (1 of 2) [facility] Start: 1980 Hepatitis C screening Hepatitis C Sc [facility] Start: 03-17-1973 IPV Vaccines (2 of 3 - 4-dose series) IPV Vaccines (2 of 3 - 4-dose series) [facility] Start: 1972 Diabetic foot examination Diabetes: Foot Exam [facility] Start: 1972 Glaucoma screening Diabetes: R etinopathy Screening [facility] Start: 07-31-1967 COVID-19 Vaccine (#1) COVID-19 Vacci ne (#1) [facility] Start: 07-31-1963 MMR Vaccines (1 of 1 - Standard series) MMR Vaccines (1 of 1 - Standard series) [facility] Start: 1962 HIV screening HIV Screening [facility] Start: 1962 Screening for malign ant neoplasm of colon [facility] Start: 1962 Yearly Adult Physical Yearly Adult P hysical [facility] End: 02-07-2024 ECG 12 lead [facility] Service Area Work Phone: Comment on above: Once for 1 Occurrenc es starting 02/07/2024 until 02/07/2024 End: 10-27-2023 Extra Tubes [facility] Service [facility] Work Phone: Comment on above: Once (Lab) for 1 Occ urrences starting 10/27/2023 until 10/27/2023 End: 10-27-2023 Urine Wilson Tube [facility] Work Phone: Comment on above: Once for 1 Occurrenc es starting 10/27/2023 until 10/27/2023 End: 08-02-2023 US Thyroid gland [facility] Service Area Work Phone: Comment on above: Once for 1 Occurrenc es starting 08/02/2023 until 08/02/2023 End: 01-21-2024 US Thyroid gland [facility] Service Area Work Phone: Comment on above: Once for 1 Occurrenc es starting 01/21/2024 until 01/21/2024 End: 11-13-2023 XR Abdomen Single view [facility] Service [facility] Work Phone: Comment on above: Once for 1 Occurrenc es starting 11/13/2023 until 11/13/2023 [facility] Work Phone: NEGATED: Highlighted row has been ruled out! Planned Goals not documented [facility] [place] Work Phone: Immunizations Immunization Date Immunization Notes Care Provider Marcos mcdonnell 07-20-2018 tetanus and diphther ia toxoids, adsorbed, preservative free, for adult use (2 Lf of tetanus toxoid and 2 Lf of diphtheria toxoid) Phillip Bernal Work Phone: [facility] DO Work Phone: 04-23-2013 hepatitis B vaccine, adult dosage Phillip Bernal Work Phone: [facility] DO Work Phone: 08-11-2012 hepatitis B vaccine, adult dosage Phillip Bernal Work Phone: [facility] DO Work Phone: 07-03-2012 hepatitis B vaccine, adult dosage Phillip Patricia Dolores Work Phone: [facility] DO Work Phone: 04-29-2008 pneumococcal polysaccharide vaccine, 23 valent Phillip Bernal Work Phone: [facility] DO Work Phone: 04-29-2008 tetanus toxoid, redu miguel diphtheria toxoid, and acellular pertussis vaccine, adsorbed Phillip Bernal Work Phone: [facility] DO Work Phone: 02-17-1973 poliovirus vaccine, inactivated Heriberto Davalos DO Work Phone: [facility] Work Phone: 02-17-1973 rubella virus vaccine Alma Rosa medina Davalos DO Work Phone: [facility] Work Phone: 02-17-1973 poliovirus vaccine, unspecified formulation Stj 1 [facility] Work Phone: Payers Date Payer Category Payer Self-pay 2021 [facility] [id number] 2021 Unknown 2021 Unknown [id number] 2021 Unknown [id number] 1962 Unknown [id number] [id number] 1962 Unknown [id number] [id number] 1962 Unknown [id number] [id number] 1962 Unknown [id number] 2.16.840.1.629944.3.579.2.159 1962 Unknown [id number] 2.16.840.1.431829.3.579.2.1244 1962 Unknown [id number] 2.16.840.1.722811.3.579.2.1244 1962 Unknown [id number] 2.16.840.1.310595.3.579.2.1244 1962 Unknown [id number] 2.16.840.1.016027.3.579.2.1243 1962 Unknown [id number] 2.16.840.1.403972.3.579.2.1243 1962 Unknown [id number] 2.16.840.1.847898.3.579.2.1243 1962 Unknown [id number] 2.16.840.1.131111.3.579.2.1243 1962 Unknown [id number] 2.16.840.1.524379.3.579.2.1243 1962 Unknown [id number] 2.16.840.1.219604.3.579.2.1243 1962 Unknown [id number] 2.16.840.1.375093.3.579.2.1243 1962 Unknown [id number] 2.16.840.1.236572.3.579.2.1243 1962 Unknown [id number] 2.16.840.1.585221.3.579.2.1243 1962 Unknown [id number] 2.16.840.1.917104.3.579.2.1242 1962 Unknown [id number] 2.16.840.1.204495.3.579.2.1242 1962 Unknown [id number] 2.16.840.1.802368.3.579.2.1243 Private Health Insurance [id number] Unknown [id number] Unknown [id number] Unknown [id number] [id number] Unknown [id number] [id number] Unknown [id number] [id number] Social History Date Type Detail Facility Start: 12-23-2022 End: 04-19-2024 Never a smoker Never a smoker [facility] Work Phone: Start: 12-23-2022 End: 07-23-2023 Tobacco smoking status NHIS Never smoked tobacco [facility] Start: 12-23-2022 End: 04-19-2024 Alcohol Use Disorder Identification Test - Consumption [AUDIT-C] [facility] Work Phone: How often to you hav e a drink containing alcohol? Monthly or less [facility] Work Phone: How many standard dr inks containing alcohol do you have on a typical day? 1 or 2 [facility] Work Phone: How often do you hav e 6 or more drinks on 1 occasion? Never [facility] Work Phone: Start: 1960 Sex Assigned At Not on file [facility] Work Phone: Start: 12-13-2022 End: 04-19-2024 Exposure to SARS-CoV-2 (event) Not sure [facility] Start: 03-04-2023 End: 07-23-2023 Tobacco use and exposure Smokeless tobacco non-user [facility] Work Phone: Start: 03-04-2023 End: 04-19-2024 Alcohol intake Current drinker of alcohol (finding) [facility] Work Phone: Start: 03-03-2024 Alcohol Comment weekly [facility] Work Phone: Tobacco smoking stat [facility] Unknown if ever smoked [facility] Work Phone: Start: 1960 Sex Assigned At Male W [facility] NEGATED: Highlighted row - - [facility] Work Phone: NEGATED: Highlighted rowStart: MICHAELF History of tobacco use Passive smoker [facility] Work Phone: Medical Equipment Procedure Code Equipment Code Equipment Origin al Text Equipment Identifier Dates Start: 04-17-2018 End: 04-19-2024 Accu-Chek FastCl ix Lancets Use to check blood sugars one time for day for Diabetes Mellitus E11.9 Quantity: 1 Refills: 3 Rudi Abdi MD Start : 17-Apr-2018 Active 102 [address] Box Start: 04-17-2018 Accu-Chek Softcl ix Lancets use to check blood suger one time daily Quantity: 100 Refills: 0 Rudi Abdi MD Start : 19-Feb-2019 Active Start: 02-19-2019 Accu-Chek Neena Plus In Vitro Strip Use to check blood sugar one time per day for Diabetes Mellitus E11.9 Quantity: 1 Refills: 3 Rudi Abdi MD Start : 17-Apr-2018 Active 100 Strip Box Start: 04-17-2018 Accu-Chek FastCl ix Lancets Use to check blood sugars one time for day for Diabetes Mellitus E11.9 Quantity: 1 Refills: 3 Rudi Abdi MD Start : 17-Apr-2018 Active 102 Unit Box Start: 04-17-2018 Accu-Chek Softcl ix Lancets use to check blood suger one time daily Quantity: 100 Refills: 0 Rudi Abdi MD Start : 19-Feb-2019 Active Start: 02-19-2019 Accu-Chek Neena Plus In Vitro Strip Use to check blood sugar one time per day for Diabetes Mellitus E11.9 Quantity: 1 Refills: 3 Rudi Abdi MD Start : 17-Apr-2018 Active 100 Strip Box Start: 04-17-2018 Accu-Chek FastCl ix Lancets Use to check blood sugars one time for day for Diabetes Mellitus E11.9 Quantity: 1 Refills: Rudi Mayo MD Start : 17-Apr-2018 Active 102 Unit Box Start: 04-17-2018 Accu-Chek Softcl ix Lancets use to check blood suger one time daily Quantity: 100 Refills: 0 Rudi Abdi MD Start : 19-Feb-2019 Active Start: 02-19-2019 Accu-Chek Neena Plus In Vitro Strip Use to check blood sugar one time per day for Diabetes Mellitus E11.9 Quantity: 1 Refills: 3 Rudi Abdi MD Start : 17-Apr-2018 Active 100 Strip Box Start: 04-17-2018 Accu-Chek FastCl ix Lancets Use to check blood sugars one time for day for Diabetes Mellitus E11.9 Quantity: 1 Refills: 3 Rudi Abdi MD Start : 17-Apr-2018 Active 102 Unit Box Start: 04-17-2018 Accu-Chek Softcl ix Lancets use to check blood suger one time daily Quantity: 100 Refills: 0 Rudi Abdi MD Start : 19-Feb-2019 Active Start: 02-19-2019 Accu-Chek Neena Plus In Vitro Strip Use to check blood sugar one time per day for Diabetes Mellitus E11.9 Quantity: 1 Refills: 3 Rudi Abdi MD Start : 17-Apr-2018 Active 100 Strip Box Start: 04-17-2018 Accu-Chek FastCl ix Lancets Use to check blood sugars one time for day for Diabetes Mellitus E11.9 Quantity: 1 Refills: 3 Rudi Abdi MD Start : 17-Apr-2018 Active 102 Unit Box Start: 04-17-2018 Accu-Chek Softcl ix Lancets use to check blood suger one time daily Quantity: 100 Refills: 0 Rudi Abdi MD Start : 19-Feb-2019 Active Start: 02-19-2019 Accu-Chek Neena Plus In Vitro Strip Use to check blood sugar one time per day for Diabetes Mellitus E11.9 Quantity: 1 Refills: 3 Rudi Abdi MD Start : 17-Apr-2018 Active 100 Strip Box Start: 04-17-2018 Accu-Chek FastCl ix Lancets Use to check blood sugars one time for day for Diabetes Mellitus E11.9 Quantity: 1 Refills: Rudi Mayo MD Start : 17-Apr-2018 Active 102 Unit Box Start: 04-17-2018 Accu-Chek Softcl ix Lancets use to check blood suger one time daily Quantity: 100 Refills: 0 Rudi Abdi MD Start : 19-Feb-2019 Active Start: 02-19-2019 Inject 1 strip i nto the skin once daily. [id number] Start: 04-17-2018 Use as directed to test daily. [id number] Inject 1 strip i nto the skin once daily. [id number] Start: 04-19-2024 End: 04-19-2025 Inject 1 strip u nder the skin once daily. Use as directed to test daily. [id number] Start: 04-19-2024 End: 04-19-2025 Functional Status Date Assessment Result Facility 04-19-2024 Patient Health Questionnaire 2 item (PHQ-2) [Reported] [facility] Work Phone: 03-03-2024 Patient Health Questionnaire 2 item (PHQ-2) [Reported] [facility] Work Phone: 02-07-2024 [facility] suicide severity rating scale screener - recent [C-SSRS] [facility] Work Phone: 11-25-2023 Patient Health Questionnaire 2 item (PHQ-2) [Reported] [facility] Work Phone: NEGATED: Highlighted row Functional performance Functional status health issues are not documented Disease [facility] Work Phone: Mental Status Date Assessment Result Facility NEGATED: Highlighted row Cognitive function [Interpretation] Cognitive status health issues are not documented Disease [facility] Work Phone: Clinical Notes 11-22-2020 to 06-22-2024 Note Date & Type Note Facility 06-22-2024 Evaluation note Diagnosis Onset Date Resolution Physical exam, pre-employment acute June 22, 2024 4: 16pm [facility] Work Phone: 1(983) 866-661503-03-2025 History of Present illness Narrative* Heriberto Davalos, - 04/19/2024 4:00 PM EST Subjective Patient ID: Jefferson Carcamo is a 63 y.o. male who presents for Follow-up (Patient has been feeling unsteady, fatigued and more sensitive to the cold.) and Results (Lab review). HPI Patient states he feels unsteady and not himself. Admits to nueropathy. Patient has lots of stressors in his life. He is having trouble sleeping and staying asleep. We discussed. He tried some Z quil and it didn't seem to help. Patient's blood work was reviewed from 04/13/2024 today and showed lipid panel total cholesterol [id number] HDL 51 triglycerides 79, LDL 44, magnesium 2.0, uric acid 3.9, CMP with glucose 135 BUN 14 creatinine 1.03 potassium 4.2 calcium 9.3 AST 15 ALT of 14, albumin to creatinine ratio was normal. CBC was unremarkable. Hemoglobin A1c was 7.1% Review of Systems Constitutional: Positive for fatigue. Negative for chills and fever. HENT: Negative for sore throat. Eyes: Negative for visual disturbance. Respiratory: Negative for cough and shortness of breath. Cardiovascular: Negative for chest pain and leg swelling. Gastrointestinal: Negative for abdominal pain, blood in stool, constipation, diarrhea, nausea and vomiting. Endocrine: Positive for cold intolerance. Genitourinary: Negative for dysuria. Skin: Negative for rash. Neurological: Negative for syncope and headaches. Psychiatric/Behavioral: Negative for agitation and confusion. Objective BP 155/82 (BP Location: Right arm, Patient Position: Sitting, BP Cuff Size: Adult) Pulse 77 Temp 36.3 C (97.3 F) Ht 1.778 m (5' 10) Wt 98 kg (216 lb) BMI 30.99 kg/m Physical Exam Vitals and nursing note reviewed. Constitutional: General: He is not in acute distress. Appearance: Normal appearance. He is obese. He is not ill-appearing, toxic- appearing or diaphoretic. HENT: Head: Normocephalic and atraumatic. Mouth/Throat: Mouth: Mucous membranes are moist. Pharynx: Oropharynx is clear. No oropharyngeal exudate. Eyes: Extraocular Movements: Extraocular movements intact. Pupils: Pupils are equal, round, and reactive to light. Cardiovascular: Rate and Rhythm: Normal rate and regular rhythm. Heart sounds: Normal heart sounds. Pulmonary: Effort: Pulmonary effort is normal. No respiratory distress. Breath sounds: Normal breath sounds. No wheezing, rhonchi or rales. Abdominal: General: Bowel sounds are normal. There is no distension. Palpations: Abdomen is soft. Tenderness: There is no abdominal tenderness. There is no guarding. Musculoskeletal: Cervical back: Neck supple. Right lower leg: No edema. Left lower leg: No edema. Lymphadenopathy: Cervical: No cervical adenopathy. Skin: General: Skin is warm and dry. Coloration: Skin is not jaundiced or pale. Findings: No rash. Neurological: General: No focal deficit present. Mental Status: He is alert and oriented to person, place, and time. Cranial Nerves: No cranial nerve deficit. Psychiatric: Mood and Affect: Mood normal. Behavior: Behavior normal. Thought Content: Thought content normal. Judgment: Judgment normal. Assessment/Plan Problem List Items Addressed This Visit ICD-10-CM Hyperuricemia E79.0 Relevant Orders Uric acid Benign essential hypertension I10 Relevant Medications lisinopril 10 mg tablet Diabetes mellitus, type 2 (Multi) E11.9 Relevant Medications blood sugar diagnostic (Accu-Chek Neena Plus test strp) strip lancets (Accu-Chek Softclix Lancets) misc Other Relevant Orders Hemoglobin A1C Mixed hyperlipidemia E78.2 Relevant Orders Comprehensive metabolic panel Lipid panel Neuropathy - Primary G62.9 Relevant Orders Serum Protein Electrophoresis + Immunofixation Thyroid disorder screening Z13.29 Relevant Orders TSH with reflex to Free T4 if abnormal Stage 3b chronic kidney disease (Multi) N18.32 Prostate cancer screening Z12.5 Relevant Orders Prostate Spec.Ag,Screen Hyperuricemia: Chronic, stable recheck uric acid level Hypertension: Will continue lisinopril at the current dose Type 2 diabetes mellitus: He is close to goal A1c we will continue current medication regimen at this time which includes glimepiride and metformin Mixed hyperlipidemia: Patient remains on atorvastatin Neuropathy: Will check a serum protein electrophoresis suspect most of his neuropathy though is related to diabetes. Does not want to continue gabapentin did not think it worked and caused side effects. Could consider sending him to neurology if we do not make improvement and/or determine exact etiology. Stage IIIb chronic kidney disease: Will check a CMP Prostate cancer screening: Check a PSA level documented in this [facility] Work Phone: 1(687) 463-803501-15-2025 History of Present illness Narrative* Heriberto Davalos, DO - 03/03/2024 4:00 PM EST Subjective Patient ID: Jefferson Carcamo is a 63 y.o. male who presents for Follow-up (BP check/Patient was ill in January, not sure what he had, he thought it was COVID.). HPI Patient was seen for COVID-[address] Donahue on 02/03/2024 and recommended conservative therapy. He then went to the ER 02/07/2024 and they tested him for COVID-19 and it was negative aswell as flu test. Patient had a chest xray that was negative as well. Patient did have some lightheadedness in the morning that has improved. Patient is having some residual lightheadedness and fatigue. Patient has history of neuropathy. We discussed checking a magnesium level and vitamin B12 level. Patient interested in trying gabapentin for neuropathy. Review of Systems Constitutional: Positive for fatigue. Negative for chills and fever. HENT: Negative for sore throat. Eyes: Negative for visual disturbance. Respiratory: Negative for cough and shortness of breath. Cardiovascular: Negative for chest pain and leg swelling. Gastrointestinal: Negative for abdominal pain, constipation, diarrhea, nausea and vomiting. Genitourinary: Negative for dysuria. Skin: Negative for rash. Neurological: Positive for light-headedness. Negative for syncope. Psychiatric/Behavioral: Negative for agitation and confusion. Objective BP 118/73 (BP Location: Left arm, Patient Position: Sitting, BP Cuff Size: Adult) Pulse 84 Temp36.2 C (97.2 F) Ht 1.778 m (5' 10) Wt 98.2 kg (216 lb 9.6 oz) BMI 31.08 kg/m Physical Exam Vitals and nursing note reviewed. Constitutional: General: He is not in acute distress. Appearance: Normal appearance. He is obese. He is not ill-appearing, toxic- appearing or diaphoretic. HENT: Head: Normocephalic and atraumatic. Mouth/Throat: Mouth: Mucous membranes are moist. Pharynx: Oropharynx is clear. No oropharyngeal exudate. Eyes: Extraocular Movements: Extraocular movements intact. Pupils: Pupils are equal, round, and reactive to light. Cardiovascular: Rate and Rhythm: Normal rate and regular rhythm. Pulmonary: Effort: Pulmonary effort is normal. No respiratory distress. Breath sounds: Normal breath sounds. No wheezing, rhonchi or rales. Abdominal: General: There is no distension. Palpations: Abdomen is soft. There is no mass. Tenderness: There is no abdominal tenderness. There is no guarding. Musculoskeletal: Cervical back: Neck supple. Right lower leg: No edema. Left lower leg: No edema. Lymphadenopathy: Cervical: No cervical adenopathy. Skin: General: Skin is warm and dry. Coloration: Skin is not jaundiced or pale. Findings: No rash. Neurological: General: No focal deficit present. Mental Status: He is alert and oriented to person, place, and time. Cranial Nerves: No cranial nerve deficit. Psychiatric: Mood and Affect: Mood normal. Behavior: Behavior normal. Thought Content: Thought content normal. Judgment: Judgment normal. Assessment/Plan Problem List Items Addressed This Visit ICD-10-CM Neuropathy - Primary G62.9 Relevant Orders Vitamin B12 Hypomagnesemia E83.42 Relevant Orders Magnesium Neuropathy: Ordered to check a vitamin B12 level and start him on gabapentin. May be related to diabetes. Will have him follow-up in the office for recheck as scheduled Hypomagnesemia: Will check a magnesium level documented in this [facility] Work Phone: [phone] 865-672512-27-2024 History of Present illness Narrative* Goyo Snider MD - 02/13/2024 4:00 PM EST ENT Outpatient Consultation Chief Complaint: Thyroid nodule History Of Present Illness Jefferson Carcamo is a 63 y.o. male presents for evaluation of a thyroid nodule. Patient has a known history of nodules and recently had his first ultrasound since 2017. The ultrasound was reviewed in detail showing a 1.2 cm TI-RADS 5 nodule on the right-hand side. In 2017 this measured 0.9 cm in the largest dimension. There are not any suspicious lymph nodes. He has a family history of thyroid cancer He also has a history of left cholesteatoma. He previously received surgery. He has been having some issues with feeling muffled on that side. He has not had a recent audiogram and has not seen his surgeon in over a year 02/13/24: Patient returns for follow-up after ultrasound. His ultrasound shows a stable 1.1 cm right-sided TI-RADS 5 nodule. And stable TI-RADS 1 and 2 nodules on the left-hand side. There is no suspicious lymphadenopathy. He has not had any change in symptoms. His left ear symptoms have also improved Past Medical History He has a past medical history of Anesthesia of skin (03/02/2021), Cervicalgia (12/30/2016), Chronickidney disease, stage 3 unspecified (Multi) (10/06/2019), Chronic venous hypertension (idiopathic) with inflammation of left lower extremity (02/28/2016), Chronic venous hypertension (idiopathic) with ulcer and inflammation of right lower extremity (CODE) (02/28/2016), Hyperuricemia without signs of inflammatory arthritis and tophaceous disease, Other specified disorders of bone, shoulder, Pain in right shoulder, Pain in unspecified hip (12/06/2019), Personal history of diseases of the blood and blood-forming organs and certain disorders involving the immune mechanism (03/02/2021), Personal hi story of other diseases of the circulatory system (03/02/2021), Personal history of other diseases of the musculoskeletal system and connective tissue, Personal history of other endocrine, nutritional and metabolic disease, Personal history of other infectious and parasitic diseases (12/04/2018), Unilateral primary osteoarthritis, left hip (12/06/2019), Unspecified disorder of ear, unspecified ear (03/02/2021), Unspecified sprain of unspecified shoulder joint, initial encounter (11/30/2020), and Venous insufficiency (chronic) (peripheral). Surgical History He has a past surgical history that includes Tonsillectomy (05/02/2017); Inner ear surgery (05/02/2017); Spinal fusion (05/02/2017); Other surgical history (11/30/2020); Other surgical history (11/30/2020); and Other surgical history (05/30/2021). Social History He reports that he has never smoked. He has never been exposed to tobacco smoke. He has never used smokeless tobacco. He reports current alcohol use. He reports that he does not use drugs. Family History Family History Problem Relation Name Age of Onset No Known Problems Mother No Known Problems Father Thyroid disease Sister Pancreatic cancer Sister Heart disease Maternal Grandfather Other (Diabetes mellitus) Paternal Grandmother Hypertension Paternal Grandmother Heart disease Paternal Grandfather Other (Myocardial infarction) Paternal Grandfather Cancer Other Aunt Allergies Buspirone and Empagliflozin Physical Exam: CONSTITUTIONAL: No acute distress VOICE: No hoarseness or other abnormality RESPIRATION: Breathing comfortably, no stridor CV: No clubbing/cyanosis/edema in hands EYES: EOM intact, sclera normal NEURO: Alert and oriented times 3, Cranial nerves II-XII grossly intact and symmetric bilaterally HEAD AND FACE: Symmetric facial features, no masses or lesions, sinuses non- tender to palpation SALIVARY GLANDS: Parotid and submandibular glands normal bilaterally EARS: Normal external ears, external auditory canals bilaterally. Well-healed postauricular incision on the left. At the superior aspect of the tympanic membrane there is potentially recurrent cholesteatoma versus surgical changes. The right TM is normal NOSE: External nose midline, anterior rhinoscopy is normal with limited visualization to the anterior aspect of the interior turbinates, no bleeding or drainage, no lesions ORAL CAVITY/OROPHARYNX/LIPS: Normal mucous membranes, normal floor of mouth/tongue/OP, no masses orlesions PHARYNGEAL DIAZ: No masses or lesions NECK/LYMPH: No palpable LAD, no palpable thyroid masses, trachea midline SKIN: Neck skin is without scar or injury PSYCH: Alert and oriented with appropriate mood and affect Last Recorded Vitals Height 1.778 m (5' 10), weight 97.2 kg (214 lb 4.8 oz). Relevant Results Reviewed thyroid ultrasound Assessment and Plan 63 y.o. male with history of thyroid nodule and recent nodule currently measuring 1.2 cm and classified as a TI-RADS 5. His last ultrasound was approximately 7 years ago and at that time it measured 0.9 cm. 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 However there has not been a drastic change in the last 7 years and it is borderline for truegrowth based on the the rate of cell changer that time. -Thyroid nodule: Nodule has remained stable on follow-up ultrasound. Again we discussed options forcontinued surveillance versus FNA. He would like to continue surveillance and pursue FNA if there is change on subsequent ultrasounds. Order was placed in the system -Left ear: Exam is stable. He said his symptoms are slightly improved from the last time I saw him.Will continue observation for now. -He will follow up earlier with any new concerns Goyo Snider MD [facility] Work Phone: [phone]) 776-694712-21-2024 Hospital Discharge instructions* Discharge Instructions* Mayco Woods DO - 02/07/2024 3:51 PM EST Please follow-up with your primary care provider let them know you were seen evaluated in the emergency department. Your laboratory values are within normal levels, your white blood cell count is also within a normal level. Cardiac enzymes were normal. Chest x-ray shows no signs of pneumonia. And always return to the emergency department if you have worsening of your symptoms, please return immediately if you notice a drop in the saturation of oxygen in your blood using your home pulse oximetry, if you notice a change in color of your lips or fingers, or if you have vomiting and cannot keep any fluids down. Please continue to stay well-hydrated. * Attachments The following attachments cannot be sent through Care Everywhere. * Upper Respiratory Infection ED ([place]) * Viral Upper Respiratory Infection Discharge Instructions, Adult ([place]) [facility] Work Phone: [phone]) 494-809610-23-2024 History of Present illness Narrative* Mahesh Santos, INFORMATION ANALYST-CRIMINAL RECORDS TECHNICIAN - 12/10/2023 4:00 PM EDT UROLOGIC INITIAL EVALUATION PROBLEM LIST: 1. Nephrolithiasis Referral to Urology HISTORY OF PRESENT ILLNESS: Jefferson Carcamo is a 63 y.o. with HTN, HLD, DVT, CKD 3b Referred from ED for further evaluation and management of nephrolithiasis Seen unaccompanied Reports only other stone 20 years ago, passed spontaneously No significant pain after leaving ED Took tamsulosin, seemed to help Increased water intake as well Gross hematuria with stone passage <10 days later Very rarely urinated when he was younger Feels current pattern is more normal but would prefer past pattern Sister with hx stones PAST MEDICAL HISTORY: Past Medical History: Diagnosis Date Anesthesia of skin 03/02/2021 Numbness and tingling Cervicalgia 12/30/2016 Neck pain on right side Chronic kidney disease, stage 3 unspecified (Multi) 10/06/2019 Chronic renal insufficiency, stage III (moderate) Chronic venous hypertension (idiopathic) with inflammation of left lower extremity 02/28/2016 Chronic venous hypertension with inflammation, left Chronic venous hypertension (idiopathic) with ulcer and inflammation of right lower extremity (CODE) 02/28/2016 Chronic venous hypertension with ulcer and inflammation involving right side Hyperuricemia without signs of inflammatory arthritis and tophaceous disease Elevated uric acid in blood Other specified disorders of bone, shoulder Pain of right clavicle Pain in right shoulder Right shoulder pain, unspecified chronicity Pain in unspecified hip 12/06/2019 Hip pain, acute Personal history of diseases of the blood and blood-forming organs and certain disorders involving the immune mechanism 03/02/2021 History of bleeding disorder Personal history of other diseases of the circulatory system 03/02/2021 History of hypertension Personal history of other diseases of the musculoskeletal system and connective tissue History of arthritis Personal history of other endocrine, nutritional and metabolic disease History of obesity Personal history of other infectious and parasitic diseases 12/04/2018 History of herpes zoster Unilateral primary osteoarthritis, left hip 12/06/2019 Primary osteoarthritis of left hip Unspecified disorder of ear, unspecified ear 03/02/2021 Ear, nose and throat disorder Unspecified sprain of unspecified shoulder joint, initial encounter 11/30/2020 Shoulder sprain Venous insufficiency (chronic) (peripheral) Chronic venous insufficiency of lower extremity PAST SURGICAL HISTORY: Past Surgical History: Procedure Laterality Date INNER EAR SURGERY 05/02/2017 Inner Ear Surgery OTHER SURGICAL HISTORY 11/30/2020 Back surgery OTHER SURGICAL HISTORY 11/30/2020 Hip replacement OTHER SURGICAL HISTORY 05/30/2021 Complete colonoscopy SPINAL FUSION 05/02/2017 Spinal Arthrodesis TONSILLECTOMY 05/02/2017 Tonsillectomy ALLERGIES: Allergies Allergen Reactions Buspirone Unknown Empagliflozin Unknown MEDICATIONS: Current Outpatient Medications on File Prior to Visit Medication Sig Dispense Refill allopurinol (Zyloprim) 300 mg tablet TAKE 1 TABLET BY MOUTH EVERY DAY 90 tablet 2 atorvastatin (Lipitor) 10 mg tablet TAKE 1 TABLET BY MOUTH EVERY DAY 90 tablet 1 blood sugar diagnostic (Accu-Chek Neena Plus test strp) strip Inject 1 strip into the skin once daily. glimepiride (Amaryl) 4 mg tablet TAKE 1 & 1/2 TABLETS BY MOUTH EVERY DAY 135 tablet 1 glucose 4 gram chewable tablet Chew if needed for low blood sugar - see comments. lancets (Accu-Chek Softclix Lancets) [facility] Use as directed to test daily. metFORMIN (Glucophage) 1,000 mg tablet TAKE 1/2 TABLET BY MOUTH EVERY 12 HOURS 90 tablet 1 metoprolol succinate XL (Toprol-XL) 25 mg 24 hr tablet TAKE 1 TABLET BY MOUTH EVERY DAY 90 tablet 2 pen needle, diabetic (COMFORT EZ PEN NEEDLES MISC) 1 Needle 1 (one) time per week. Xarelto 20 mg tablet TAKE 1 TABLET BY MOUTH EVERY DAY 90 tablet 1 No current facility-administered medications on file prior to visit. SOCIAL HISTORY: Patient reports that he has never smoked. He has never been exposed to tobacco smoke. He has never used smokeless tobacco. He reports current alcohol use. He reports that he does not use drugs. Social History Socioeconomic History Marital status: Single Spouse name: Not on file Number of children: Not on file Years of education: Not on file Highest education level: Not on file Occupational History Not on file Tobacco Use Smoking status: Never Passive exposure: Never Smokeless tobacco: Never Substance and Sexual Activity Alcohol use: Yes Drug use: Never Sexual activity: Not on file Other Topics Concern Not on file Social History Narrative Not on file Social Drivers of Health Financial Resource Strain: Not on file Food Insecurity: Not on file Transportation Needs: Not on file Physical Activity: Not on file Stress: Not on file Social Connections: Not on file Intimate Partner Violence: Not on file Housing Stability: Not on file FAMILY HISTORY: Family History Problem Relation Name Age of Onset No Known Problems Mother No Known Problems Father Thyroid disease Sister Pancreatic cancer Sister Heart disease Maternal Grandfather Other (Diabetes mellitus) Paternal Grandmother Hypertension Paternal Grandmother Heart disease Paternal Grandfather Other (Myocardial infarction) Paternal Grandfather Cancer Other Aunt REVIEW OF SYSTEMS: All systems reviewed, pertinent negatives as noted in HPI. PHYSICAL EXAM: Visit Vitals BP (!) 165/92 Pulse 82 Constitutional: Well-developed and well-nourished. No distress. Head: Normocephalic and atraumatic. Neck: Normal range of motion. Pulmonary/Chest: Effort normal. No respiratory distress. Abdominal: Non-distended. : See below. Integumentary: No rash or lesions visualized. Musculoskeletal: Normal range of motion. Neurological: Alert and oriented. Psychiatric: Normal mood and affect. Thought content normal. LABORATORY REVIEW: Lab Results Component Value Date BUN 30 (H) 10/27/2023 CREATININE 1.69 (H) 10/27/2023 EGFR 46 (L) 10/27/2023 NA 132 (L) 10/27/2023 K 5.1 10/27/2023 CL 98 10/27/2023 CO2 23 10/27/2023 CALCIUM 8.9 10/27/2023 Lab Results Component Value Date WBC 17.1 (H) 10/27/2023 RBC 4.21 (L) 10/27/2023 HGB 12.9 (L) 10/27/2023 HCT 38.5 (L) 10/27/2023 MCV 91 10/27/2023 MCH 30.6 10/27/2023 MCHC 33.5 10/27/2023 RDW 13.0 10/27/2023 PLT 294 10/27/2023 Lab Results Component Value Date PSA 2.38 05/05/2020 PSA 2.89 02/05/2019 Assessment: 1. Nephrolithiasis Referral to Urology Jefferson Carcamo is a 63 y[address] with nephrol[address] A/P 10/27/23 showed 6 mm stone in proximal R ureter with mild hydroureteronephrosis & 8 mm stone in R lower pole; 5.5 cm prostate Symptoms resolved Unable to provide urine sample today Discussed natural hx of nephrolithiasis, prevention, and management 8 mm stone unlikely to pass with medical expulsive therapy in the event that it should migrate fromlower pole; recommend further discussion of possible intervention with surgeon Agreeable to plan as below Plan: RTC with Dr. Thomposn Encouraged to contact us in the interim with any questions, concerns documented in this [facility] Work Phone: [phone]) 747-873510-08-2024 History of Present illness Narrative* Heriberto Davalos, DO - 11/25/2023 4:00 PM EDT Subjective Patient ID: Jefferson Carcamo is a 63 y.o. male who presents for Follow-up (He saw ENT, Had xrays doneand also check on BP). HPI patient is a 63-year-old male that presents to the office today for follow- up he reports he sawENT and also had x-rays completed and here for check on blood pressure. His blood pressure in the office today is 110/68. Patient was last seen on 11/11/2023 and at that time we had decreased his blood pressure medication due to borderline low blood pressures. And then we had him follow-up today to recheck his blood pressure. We had decreased his lisinopril to 10 mg. We had also ordered a KUB to reevaluate a possible passed kidney stone. KUB showed no radiopaque renal calculi. We still discussedthe importance of following up with urology. Patient also saw ENT for evaluation of a thyroid nodule. ENT recommended a 6-month follow-up ultrasound and at that time they can decide whether to do a needle biopsy of his thyroid nodule. Review of Systems Constitutional: Negative for chills and fever. HENT: Negative for sore throat. Eyes: Negative for visual disturbance. Respiratory: Negative for cough and shortness of breath. Cardiovascular: Negative for chest pain. Gastrointestinal: Negative for abdominal pain, diarrhea, nausea and vomiting. Skin: Negative for rash. Neurological: Negative for dizziness, syncope and light-headedness. Psychiatric/Behavioral: Negative for agitation and confusion. Objective BP 110/68 (BP Location: Left arm, Patient Position: Sitting, BP Cuff Size: Adult) Pulse 83 Temp36.2 C (97.2 F) Ht 1.778 m (5' 10) Wt 98.4 kg (217 lb) BMI 31.14 kg/m Physical Exam Vitals and nursing note reviewed. Constitutional: General: He is not in acute distress. Appearance: Normal appearance. He is not ill-appearing or diaphoretic. HENT: Head: Normocephalic and atraumatic. Mouth/Throat: Mouth: Mucous membranes are moist. Pharynx: Oropharynx is clear. No oropharyngeal exudate. Eyes: Pupils: Pupils are equal, round, and reactive to light. Cardiovascular: Rate and Rhythm: Normal rate and regular rhythm. Heart sounds: Normal heart sounds. Pulmonary: Effort: Pulmonary effort is normal. No respiratory distress. Breath sounds: Normal breath sounds. No wheezing, rhonchi or rales. Abdominal: General: There is no distension. Palpations: Abdomen is soft. Tenderness: There is no abdominal tenderness. There is no guarding. Musculoskeletal: Cervical back: Neck supple. Right lower leg: No edema. Left lower leg: No edema. Lymphadenopathy: Cervical: No cervical adenopathy. Skin: General: Skin is warm and dry. Coloration: Skin is not jaundiced or pale. Findings: No rash. Neurological: General: No focal deficit present. Mental Status: He is alert and oriented to person, place, and time. Cranial Nerves: No cranial nerve deficit. Psychiatric: Mood and Affect: Mood normal. Behavior: Behavior normal. Thought Content: Thought content normal. Judgment: Judgment normal. Assessment/Plan Problem List Items Addressed This Visit ICD-10-CM Hyperuricemia E79.0 Benign essential hypertension - Primary I10 Diabetes mellitus, type 2 (Multi) E11.9 Nephrolithiasis N20.0 Thyroid nodule E04.1 Thyroid nodule: Currently following with ENT they are set to repeat a ultrasound in 6 months and decide about biopsy after those results come back. Hypertension: Chronic, stable continue the current medication regimen Nephrolithiasis: His KUB did not show any stones. He is advised to follow-up with urology still forrecheck documented in this [facility] Work Phone: [phone] 150-731909-25-2024 History of Present illness Narrative* Goyo Snider MD - 11/12/2023 3:30 PM EDT ENT Outpatient Consultation Chief Complaint: Thyroid nodule History Of Present Illness Jefferson Carcamo is a 63 y.o. male presents for evaluation of a thyroid nodule. Patient has a known history of nodules and recently had his first ultrasound since 2017. The ultrasound was reviewed in detail showing a 1.2 cm TI-RADS 5 nodule on the right-hand side. In 2017 this measured 0.9 cm in the largest dimension. There are not any suspicious lymph nodes. He has a family history of thyroid cancer He also has a history of left cholesteatoma. He previously received surgery. He has been having some issues with feeling muffled on that side. He has not had a recent audiogram and has not seen his surgeon in over a year Past Medical History He has a past medical history of Anesthesia of skin (03/02/2021), Cervicalgia (12/30/2016), Chronickidney disease, stage 3 unspecified (Multi) (10/06/2019), Chronic venous hypertension (idiopathic) with inflammation of left lower extremity (02/28/2016), Chronic venous hypertension (idiopathic) with ulcer and inflammation of right lower extremity (CODE) (02/28/2016), Hyperuricemia without signs of inflammatory arthritis and tophaceous disease, Other specified disorders of bone, shoulder, Pain in right shoulder, Pain in unspecified hip (12/06/2019), Personal history of diseases of the blood and blood-forming organs and certain disorders involving the immune mechanism (03/02/2021), Personal hi story of other diseases of the circulatory system (03/02/2021), Personal history of other diseases of the musculoskeletal system and connective tissue, Personal history of other endocrine, nutritional and metabolic disease, Personal history of other infectious and parasitic diseases (12/04/2018), Unilateral primary osteoarthritis, left hip (12/06/2019), Unspecified disorder of ear, unspecified ear (03/02/2021), Unspecified sprain of unspecified shoulder joint, initial encounter (11/30/2020), and Venous insufficiency (chronic) (peripheral). Surgical History He has a past surgical history that includes Tonsillectomy (05/02/2017); Inner ear surgery (05/02/2017); Spinal fusion (05/02/2017); Other surgical history (11/30/2020); Other surgical history (11/30/2020); and Other surgical history (05/30/2021). Social History He reports that he has never smoked. He has never been exposed to tobacco smoke. He has never used smokeless tobacco. He reports current alcohol use. He reports that he does not use drugs. Family History Family History Problem Relation Name Age of Onset No Known Problems Mother No Known Problems Father Thyroid disease Sister Pancreatic cancer Sister Heart disease Maternal Grandfather Other (Diabetes mellitus) Paternal Grandmother Hypertension Paternal Grandmother Heart disease Paternal Grandfather Other (Myocardial infarction) Paternal Grandfather Cancer Other Aunt Allergies Buspirone and Empagliflozin Physical Exam: CONSTITUTIONAL: No acute distress VOICE: No hoarseness or other abnormality RESPIRATION: Breathing comfortably, no stridor CV: No clubbing/cyanosis/edema in hands EYES: EOM intact, sclera normal NEURO: Alert and oriented times 3, Cranial nerves II-XII grossly intact and symmetric bilaterally HEAD AND FACE: Symmetric facial features, no masses or lesions, sinuses non- tender to palpation SALIVARY GLANDS: Parotid and submandibular glands normal bilaterally EARS: Normal external ears, external auditory canals bilaterally. Well-healed postauricular incision on the left. At the superior aspect of the tympanic membrane there is potentially recurrent cholesteatoma versus surgical changes. The right TM is normal NOSE: External nose midline, anterior rhinoscopy is normal with limited visualization to the anterior aspect of the interior turbinates, no bleeding or drainage, no lesions ORAL CAVITY/OROPHARYNX/LIPS: Normal mucous membranes, normal floor of mouth/tongue/OP, no masses orlesions PHARYNGEAL DIAZ: No masses or lesions NECK/LYMPH: No palpable LAD, no palpable thyroid masses, trachea midline SKIN: Neck skin is without scar or injury PSYCH: Alert and oriented with appropriate mood and affect Last Recorded Vitals Height 1.778 m (5' 10), weight 95.8 kg (211 lb 1.6 oz). Relevant Results CT abdomen pelvis w IV contrast Result Date: 10/27/2023 STUDY: CT Abdomen and Pelvis with IV Contrast; 10/27/2023 at 3:20 PM INDICATION: Right-sided abdominal tenderness, nausea and vomiting. COMPARISON: Correlation with XR left hip/pelvis 12/06/19. ACCESSION NUMBER(S): [id number] ORDERING CLINICIAN: THERON RIBERA TECHNIQUE: CT of the abdomen and pelvis was performed. Contiguous axial images were obtained at 3 mm slice thickness through the abdomen and pelvis. Coronal and sagittal reconstructions at 3 mm slice thickness were performed. Omnipaque-350 90 mL was administered intravenously. FINDINGS: LOWER CHEST: No cardiomegaly. No pericardial effusion. 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 ABDOMEN: LIVER: No hepatomegaly. Smooth surface contour. Mild fatty infiltration of the liver. BILE DUCTS: Nointrahepatic or extrahepatic biliary ductal dilatation. GALLBLADDER: The gallbladder is present without gallstones. STOMACH: No abnormalities identified. PANCREAS: No masses or ductal dilatation. SPLEEN: No splenomegaly or focal splenic lesion. ADRENAL GLANDS: No thickening or nodules. KIDNEYS AND URETERS: Kidneys are normal in size and location. 6 mm calculus in the proximal right ureter causingmild hydroureteronephrosis. Single additional 8 mm inferior pole right renal calculus. Small right renal cysts noted. PELVIS: BLADDER: No abnormalities identified. REPRODUCTIVE ORGANS: Prostate glandis enlarged measuring 5.5 cm. BOWEL: No abnormalities identified. Appendix is normal. VESSELS: No abnormalities identified. Abdominal aorta is normal in caliber. PERITONEUM/RETROPERITONEUM/LYMPH NODES: No free fluid. No pneumoperitoneum. No lymphadenopathy. ABDOMINAL WALL: No abnormalities identifie d. SOFT TISSUES: No abnormalities identified. BONES: No acute fracture or aggressive osseous lesion. Left total hip right arthroplasty. 1. 6 mm calculus in the proximal right ureter causing mild hydroureteronephrosis. Single additional8 mm inferior pole right renal calculus. 2. Mild hepatic steatosis. 3. Enlarged prostate. 4. 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 Signed by Carlos Viera MD Assessment and Plan 63 y.o. male with history of thyroid nodule and recent nodule currently measuring 1.2 cm and classified as a TI-RADS 5. His last ultrasound was approximately 7 years ago and at that time it measured 0.9 cm. 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 However there has not been a drastic change in the last 7 years and it is borderline for truegrowth based on the the rate of cell changer that time. Since his last ultrasound was 3-1/2 months ago he would like to get a short-term follow-up that will be 6 months from his last ultrasound. At that time he will decide on needle biopsy versus continued surveillance We will reassess his left ear at the next visit Goyo Snider MD documented in this [facility] Work Phone: [phone]) [phone] History of Present illness Narrative* Heriberto Davalos, DO - 11/11/2023 9:30 AM EDT Subjective Patient ID: Jefferson Carcamo is a 63 y.o. male who presents for Follow-up (Follow up on BP). HPI Patient following up today with multiple complaints. He had sent us a lengthy [employer] message with multiple points. Therefore we advised him to come into the office to discuss his concerns. We again reviewed his last ER visit from 10/28/2023 as well as last office visit with Dr. Giovanna Cook his public records officer. Patient has been getting borderline low blood pressures at home. He has lost weight and his lower blood pressure readings have been attributed to this. Is not having any fevers or chills. No chest pain or shortness of breath. Has had some decreased oral intake due to his recent kidneys stone. Patient also has cut his blood pressure medication in half but still having these lower blood pressure readings. Heart rate is normal. No fever. Patient wasn't using a strainger but on Friday he passed a large amount of blood in the urine and then his pain hs improved. Patient stopped flomax on his own. He stopped it because he knew it could contribute to low blood pressure and he alsothinks he passed the kidney stone. States he is having infrequent bowel movement. Just smaller stools. Currently he passed blood and can sleep on his side and thinks the Kidney stone that was seen on his CT scan has moved. He has an appointment with urology on November 25. Patient would like to go off of Ozempic and do a trial off the medication. Patient has been off Ozempic for two weeks. Currently taking metformin and glimepiride. Prior to this he was on Januvia. Patient having issues with decreased visual acuity in both eyes and notices some pain of the left eye that is intermittent. No vision loss. He does have an eye doctor he can follow-up with. Review of Systems Constitutional: Negative for chills and fever. HENT: Negative for ear pain and sore throat. Eyes: Positive for pain. Negative for discharge, redness and itching. Respiratory: Negative for cough and shortness of breath. Cardiovascular: Negative for chest pain, palpitations and leg swelling. Gastrointestinal: Negative for abdominal pain, diarrhea, nausea and vomiting. Genitourinary: Positive for hematuria (resolved). Negative for decreased urine volume, dysuria, flank pain and frequency. Skin: Negative for rash. Neurological: Negative for dizziness, syncope, light-headedness and headaches. Psychiatric/Behavioral: Negative for agitation and confusion. Objective BP 105/70 (BP Location: Left arm, Patient Position: Sitting, BP Cuff Size: Adult) Pulse 79 Temp36.6 C (97.8 F) Ht 1.778 m (5' 10) Wt 95.3 kg (210 lb) BMI 30.13 kg/m Physical Exam Vitals and nursing note reviewed. Constitutional: General: He is not in acute distress. Appearance: Normal appearance. He is obese. He is not ill-appearing, toxic- appearing or diaphoretic. HENT: Head: Normocephalic and atraumatic. Nose: Nose normal. Mouth/Throat: Mouth: Mucous membranes are moist. Pharynx: Oropharynx is clear. No oropharyngeal exudate or posterior oropharyngeal erythema. Eyes: General: Lids are normal. Lids are everted, no foreign bodies appreciated. Vision grossly intact. No scleral icterus. Right eye: No foreign body. Left eye: No foreign body. Extraocular Movements: Extraocular movements intact. Conjunctiva/sclera: Conjunctivae normal. Pupils: Pupils are equal, round, and reactive to light. Funduscopic exam: Left eye: No hemorrhage. Red reflex present. Cardiovascular: Rate and Rhythm: Normal rate and regular rhythm. Pulses: Normal pulses. Heart sounds: Normal heart sounds. Pulmonary: Effort: Pulmonary effort is normal. No respiratory distress. Breath sounds: Normal breath sounds. No stridor. No wheezing, rhonchi or rales. Abdominal: General: Bowel sounds are normal. There is no distension. Palpations: Abdomen is soft. There is no mass. Tenderness: There is no abdominal tenderness. Musculoskeletal: General: No tenderness. Cervical back: Neck supple. No rigidity or tenderness. Right lower leg: No edema. Left lower leg: No edema. Lymphadenopathy: Cervical: No cervical adenopathy. Skin: General: Skin is warm and dry. Coloration: Skin is not jaundiced or pale. Findings: No bruising, erythema or rash. Neurological: General: No focal deficit present. Mental Status: He is alert and oriented to person, place, and time. Cranial Nerves: No cranial nerve deficit. Motor: No weakness. Gait: Gait normal. Psychiatric: Mood and Affect: Mood normal. Behavior: Behavior normal. Thought Content: Thought content normal. Judgment: Judgment normal. Assessment/Plan Problem List Items Addressed This Visit ICD-10-CM Benign essential hypertension I10 Relevant Medications lisinopril 10 mg tablet Diabetes mellitus, type 2 (Multi) E11.9 Stage 3b chronic kidney disease (Multi) N18.32 Nephrolithiasis - Primary N20.0 Relevant Orders XR abdomen 1 view Hypertension: Chronic, stable. Given his lower borderline low blood pressures were going to decrease his blood pressure medication to just lisinopril 10 mg daily. He has normal heart rate. Follow-up in 2 weeks for recheck. Type 2 diabetes mellitus: Ozempic do a trial off of the medication continue metformin and glimepiride. Sugars at home. Denies any low blood sugars. May consider reinstituting Januvia if blood sugars are not controlled Stage IIIb chronic kidney disease: His urine kidney function appears at baseline based upon his last labs 2 weeks ago at the ER. Nephrolithiasis: It appears he may have passed recent kidney stone based on his symptoms over the weekend of hematuria. He has known kidney stones that were seen on CT scan in the ER. 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 No obvious abnormalities of the eyes grossly. Pupils are equal round reactive to light extraocular muscles intact. No evidence of infection. Limited funduscopic exam was negative. documented in this [facility] Work Phone: 1([phone]) [phone] History of Present illness Narrative* Heriberto Davalos DO - 10/28/2023 4:00 PM EDT Subjective Patient ID: Jefferson Carcamo is a 63 y.o. male who presents for Follow-up (3 month). HPI Patient states he feels weak and muscle wasting due to semeglutide. He is interested in going down to a lower dose of the medication such as the 0.25 mg once weekly dose he is currently on 0.5 mgdose. His hemoglobin A1c in the office today was 6.4% which is excellent. He remains on metformin and glimepiride as well. Denies any low sugar levels. He has tried Jardiance and Farxiga in the past and had adverse effects from those medications. He also recently was in the ER yesterday and diagnosed with a kidney stone on the right side. Has a referral to urology he has an appointment with ENT head and neck for thyroid nodule evaluation upcoming. Denies any fever, chills, chest pain or shortness of breath, nausea, vomit diarrhea, abdominal pain. We reviewed his labs from his most recent ER visit yesterday 10/27/2023. He had white blood cell count 17 point wants chronic hemoglobin 12.6 which is stable normal platelet count. Patient's glucose was 241, sodium 132, creatinine 1.69 BUN of 30. Urinalysis showed urine blood, ketones , Urine red blood cells greater than [address] of the a bdomen pelvis with IV contrast that was reviewed and showed a 6 mm calculus in the proximal right ureter causing mild hydronephrosis single additional 8 mm inferior pole right renal calculus. He had mild hepatic steatosis, enlarged prostate. Review of Systems Constitutional: Negative for chills and fever. HENT: Negative for sore throat. Eyes: Negative for visual disturbance. Respiratory: Negative for cough and shortness of breath. Cardiovascular: Negative for chest pain and leg swelling. Gastrointestinal: Negative for abdominal pain, blood in stool, constipation, diarrhea, nausea and vomiting. Genitourinary: Negative for dysuria. Musculoskeletal: Positive for back pain. Skin: Negative for rash. Neurological: Negative for dizziness, syncope and light-headedness. Psychiatric/Behavioral: Negative for agitation and confusion. Objective BP 117/76 Pulse 92 Temp 37 C (98.6 F) Ht 1.778 m (5' 10) Wt 103 kg (226 lb) BMI 32.43 kg/m Physical Exam Vitals and nursing note reviewed. Constitutional: General: He is not in acute distress. Appearance: Normal appearance. He is obese. He is not ill-appearing, toxic- appearing or diaphoretic. HENT: Head: Normocephalic and atraumatic. Mouth/Throat: Mouth: Mucous membranes are moist. Pharynx: Oropharynx is clear. No oropharyngeal exudate. Eyes: Pupils: Pupils are equal, round, and reactive to light. Cardiovascular: Rate and Rhythm: Normal rate and regular rhythm. Heart sounds: Normal heart sounds. Pulmonary: Effort: Pulmonary effort is normal. No respiratory distress. Breath sounds: Normal breath sounds. No wheezing, rhonchi or rales. Abdominal: General: Bowel sounds are normal. There is no distension. Palpations: Abdomen is soft. There is no mass. Tenderness: There is no abdominal tenderness. Musculoskeletal: Cervical back: Neck supple. Right lower leg: No edema. Left lower leg: No edema. Lymphadenopathy: Cervical: No cervical adenopathy. Skin: General: Skin is warm and dry. Coloration: Skin is not jaundiced or pale. Findings: No rash. Neurological: General: No focal deficit present. Mental Status: He is alert and oriented to person, place, and time. Cranial Nerves: No cranial nerve deficit. Psychiatric: Mood and Affect: Mood normal. Behavior: Behavior normal. Thought Content: Thought content normal. Judgment: Judgment normal. Assessment/Plan Problem List Items Addressed This Visit ICD-10-CM Hyperuricemia E79.0 Relevant Orders Uric acid Benign essential hypertension I10 Relevant Orders CBC and Auto Differential Comprehensive metabolic panel Diabetes mellitus, type 2 (Multi) - Primary E11.9 Relevant Medications semaglutide 0.25 mg or 0.5 mg (2 mg/3 mL) pen injector (Start on 11/02/2023) Other Relevant Orders POCT glycosylated hemoglobin (Hb A1C) manually resulted (Completed) Hemoglobin A1C Albumin-Creatinine Ratio, Urine Random Mixed hyperlipidemia E78.2 Relevant Orders CBC and Auto Differential Comprehensive metabolic panel Lipid panel Stage 3b chronic kidney disease (Multi) N18.32 Hyperuricemia: Will check uric acid level patient remains on allopurinol Hypertension: Chronic, stable we will continue lisinopril hydrochlorothiazide. Patient has had someborderline low blood pressures we will continue to monitor he is been asymptomatic with these. We discussed we could consider in the future decreasing his lisinopril hydrochlorothiazide to the 20/12.5 mg formulation. Will continue to monitor. We discussed likely his blood pressures have improved and he is required less medication due to his weight loss. Type 2 diabetes mellitus: Chronic, stable. He has had some GI side effects with the Ozempic in terms of some nausea also feels like he is lost muscle mass. He is interested in going down the dose of Ozempic to 0.25 and reassessing his A1c in 6 months. Will continue diet and exercise modification. A1c today was 6.4%. He will continue metformin and glimepiride. Hyperlipidemia: Chronic, stable he will continue atorvastatin Stage IIIb chronic kidney disease: Chronic, stable avoid nephrotoxic agents. Nephrolithiasis: His ER note was reviewed along with labs and imaging today. He is advised to follow-up with urology given his 6 mm kidney stone in the right. Continue Flomax. [facility]: 1([phone]) 614-476709-09-2024 Hospital Discharge instructions* Discharge Instructions* Theron Ribera PA-C - 10/27/2023 4:29 PM EDT Purchase a urine strainer from any pharmacy if you would like the stone to be tested by urology. Take the Percocet sparingly for severe pain. Take the Zofran for nausea/vomiting. Take the Flomax once daily. Increase your fluid intake to help pass the stone. Follow-up with urology [facility] Work Phone: 1(209) 473-659309-09-2024 Emergency department Note* Theron Ribera PA-C - 10/27/2023 11:16 AM EDT Images from the original note were not included. Emergency Department Provider Note History of Present Illness 63-year-old male with history of leukemia not on [employer] being watched, DM2, DVT/PE on Xarelto, HTN, ankylosing spondylitis, HLD, hemochromatosis presenting for right-sided abdominal pain with nausea vomiting. States it came out of nowhere woke him up around 630. States he had 1 episode of nonbloody nonbilious vomiting. Has not tried to eat or drink today due to the vomiting. Denies any abnormal ingestions. Did have a few beers at the [employer] game yesterday however does drink similar amounts on occasion however no regular alcohol use. Denies drug use. Did have nephrolithiasis decades ago. Denies any hematuria or dysuria. Had a loose stool yesterday however no diarrhea. Denies any bloody stool. Denies any fevers chills night sweats or rigors. Denies any cough chest pain or shortness of breath. External Records Reviewed including ED notes, H&P, Discharge Summary, outpatient PCP/specialistnotes. Physical Exam Triage Vitals: T 36.5 C (97.7 F) HR 85 BP 142/71 RR 15 O2 98 % None (Room air) GEN: NAD EYES: EOMs grossly intact, anicteric sclera DALILA: Mucosa appears dry. NECK: Supple. CARD: RRR PULMONARY: Moving air well. Clear all lung umaña. ABDOMEN: Soft, no guarding, no rigidity. Diffuse right-sided tenderness poorly localized, NABS EXTREMITIES: Full ROM, no pitting edema, SKIN: Intact, warm and dry NEURO: Alert and oriented x 3, speech is clear, no obvious deficits noted. Medical Decision Making & ED Course 63-year-old male presenting for right side abdominal pain with nausea vomiting x 7 hours. On exam he is well-appearing lying in bed comfortably. Vital signs stable including afebrile with no tachycardia proximal hypotension. Lungs CTABL. ABD soft with mild diffuse right-sided tenderness, NABS with no rigidity or guarding. Does appear dry with his oral mucosa. Laboratory work was drawn prior to assessment. Will establish IV, provide fluids, Zofran, obtain CT abdomen pelvis. ED Course as of 10/27/23 1634 FriOct 27, 2023 1355 WBC(!): 17.1 Mildly elevated compared to previous [LIZZ] 1355 HEMOGLOBIN(!): 12.9 Stable anemia [LIZZ] 1355 Creatinine(!): 1.69 Kidney function has been labile with CKD 3, today around his baseline, slightly decreased from mostrecent [LIZZ] 1427 Urinalysis with Reflex Microscopic(!) Significant amount of glucose on UA, no signs UTI with normal leukocyte esterase and no white bloodcells [LIZZ] 1556 CT abdomen pelvis w IV contrast Independent interpretation is with obvious nephrolithiasis in the right ureter as well as in the renal pelvis, will follow-up radiology report [LIZZ] 1632 CT abdomen pelvis w IV contrast CT reviewed with 2 kidney stones the largest in the ureter 6 mm. Mild hydroureternephrosis seen. [LIZZ] 1632 I discussed the results with the patient including his nephrolithiasis. Will treat outpatient with Flomax, analgesics of Tylenol and Percocet, Zofran for any return of nausea. Referral is entered for urology. I feel his leukocytosis most likely reactive from his pain/vomiting. Additionally does have mild chronic leukocytosis at baseline. Reassuringly his kidney function is around his baseline. He does have follow-up appoint with his PCP and is encouraged to keep this tomorrow. He is encouraged to follow-up with urology for his nephrolithiasis. Encouraged to purchase a strainer as he doeshave 2 stones and they may benefit from testing the stones for preventative treatment. Return precautions reviewed. He verbalized understanding results and discharge plan he agreed with plan all questions were answered. [LIZZ] ED Course User Index [LIZZ] Theron Ribera PA-C Diagnoses as of 10/27/[address] abdomen pelvis w IV contrast (Results Pending) Labs Reviewed CBC WITH AUTO DIFFERENTIAL - Abnormal Result Value WBC 17.1 (*) nRBC 0.0 RBC 4.21 (*) Hemoglobin 12.9 (*) Hematocrit 38.5 (*) MCV 91 MCH 30.6 MCHC 33.5 RDW 13.0 Platelets 294 Neutrophils % 88.9 Immature Granulocytes %, Automated 0.4 Lymphocytes % 6.9 Monocytes % 3.3 Eosinophils % 0.1 Basophils % 0.4 Neutrophils Absolute 15.25 (*) Immature Granulocytes Absolute, Automated 0.06 Lymphocytes Absolute 1.18 (*) Monocytes Absolute 0.57 Eosinophils Absolute 0.01 Basophils Absolute 0.06 COMPREHENSIVE METABOLIC PANEL - Abnormal Glucose 241 (*) Sodium 132 (*) Potassium 5.1 Chloride 98 Bicarbonate 23 Anion Gap 16 Urea Nitrogen 30 (*) Creatinine 1.69 (*) eGFR 46 (*) Calcium 8.9 Albumin 4.0 Alkaline Phosphatase 71 Total Protein 6.9 AST 15 Bilirubin, Total 0.5 ALT 13 URINALYSIS WITH REFLEX MICROSCOPIC This note was dictated using a speech recognition program. While an attempt was made at proof reading to minimize errors, minor errors in bicycle assembler may be present call for questions. Theron Ribera PA-C 10/27/23 1634 documented in this [facility] Work Phone: 1([phone]) 206-390509-09-2024 Physician Emergency department Note* Theron Ribera PA-C - 10/27/2023 11:16 AM EDT Images from the original note were not included. Emergency Department Provider Note History of Present Illness 63-year-old male with history of leukemia not on [employer] being watched, DM2, DVT/PE on Xarelto, HTN, ankylosing spondylitis, HLD, hemochromatosis presenting for right-sided abdominal pain with nausea vomiting. States it came out of nowhere woke him up around 630. States he had 1 episode of nonbloody nonbilious vomiting. Has not tried to eat or drink today due to the vomiting. Denies any abnormal ingestions. Did have a few beers at the [employer] yesterday however does drink similar amounts on occasion however no regular alcohol use. Denies drug use. Did have nephrolithiasis decades ago. Denies any hematuria or dysuria. Had a loose stool yesterday however no diarrhea. Denies any bloody stool. Denies any fevers chills night sweats or rigors. Denies any cough chest pain or shortness of breath. External Records Reviewed including ED notes, H&P, Discharge Summary, outpatient PCP/specialistnotes. Physical Exam Triage Vitals: T 36.5 C (97.7 F) HR 85 BP 142/71 RR 15 O2 98 % None (Room air) GEN: NAD EYES: EOMs grossly intact, anicteric sclera DALILA: Mucosa appears dry. NECK: Supple. CARD: RRR PULMONARY: Moving air well. Clear all lung umaña. ABDOMEN: Soft, no guarding, no rigidity. Diffuse right-sided tenderness poorly localized, NABS EXTREMITIES: Full ROM, no pitting edema, SKIN: Intact, warm and dry NEURO: Alert and oriented x 3, speech is clear, no obvious deficits noted. Medical Decision Making & ED Course 63-year-old male presenting for right side abdominal pain with nausea vomiting x 7 hours. On exam he is well-appearing lying in bed comfortably. Vital signs stable including afebrile with no tachycardia proximal hypotension. Lungs CTABL. ABD soft with mild diffuse right-sided tenderness, NABS with no rigidity or guarding. Does appear dry with his oral mucosa. Laboratory work was drawn prior to assessment. Will establish IV, provide fluids, Zofran, obtain CT abdomen pelvis. ED Course as of 10/27/23 1634 Mon Oct 27, 2023 1355 WBC(!): 17.1 Mildly elevated compared to previous [LIZZ] 1355 HEMOGLOBIN(!): 12.9 Stable anemia [LIZZ] 1355 Creatinine(!): 1.69 Kidney function has been labile with CKD 3, today around his baseline, slightly decreased from mostrecent [LIZZ] 1427 Urinalysis with Reflex Microscopic(!) Significant amount of glucose on UA, no signs UTI with normal leukocyte esterase and no white bloodcells [LIZZ] 1556 CT abdomen pelvis w IV contrast Independent interpretation is with obvious nephrolithiasis in the right ureter as well as in the renal pelvis, will follow-up radiology report [LIZZ] 1632 CT abdomen pelvis w IV contrast CT reviewed with 2 kidney stones the largest in the ureter 6 mm. Mild hydroureternephrosis seen. [LIZZ] 1632 I discussed the results with the patient including his nephrolithiasis. Will treat outpatient with Flomax, analgesics of Tylenol and Percocet, Zofran for any return of nausea. Referral is entered for urology. I feel his leukocytosis most likely reactive from his pain/vomiting. Additionally does have mild chronic leukocytosis at baseline. Reassuringly his kidney function is around his baseline. He does have follow-up appoint with his PCP and is encouraged to keep this tomorrow. He is encouraged to follow-up with urology for his nephrolithiasis. Encouraged to purchase a strainer as he doeshave 2 stones and they may benefit from testing the stones for preventative treatment. Return precautions reviewed. He verbalized understanding results and discharge plan he agreed with plan all questions were answered. [LIZZ] ED Course User Index [LIZZ] Theron Ribera PA-C Diagnoses as of 10/27/[address] abdomen pelvis w IV contrast (Results Pending) Labs Reviewed CBC WITH AUTO DIFFERENTIAL - Abnormal Result Value WBC 17.1 (*) nRBC 0.0 RBC 4.21 (*) Hemoglobin 12.9 (*) Hematocrit 38.5 (*) MCV 91 MCH 30.6 MCHC 33.5 RDW 13.0 Platelets 294 Neutrophils % 88.9 Immature Granulocytes %, Automated 0.4 Lymphocytes % 6.9 Monocytes % 3.3 Eosinophils % 0.1 Basophils % 0.4 Neutrophils Absolute 15.25 (*) Immature Granulocytes Absolute, Automated 0.06 Lymphocytes Absolute 1.18 (*) Monocytes Absolute 0.57 Eosinophils Absolute 0.01 Basophils Absolute 0.06 COMPREHENSIVE METABOLIC PANEL - Abnormal Glucose 241 (*) Sodium 132 (*) Potassium 5.1 Chloride 98 Bicarbonate 23 Anion Gap 16 Urea Nitrogen 30 (*) Creatinine 1.69 (*) eGFR 46 (*) Calcium 8.9 Albumin 4.0 Alkaline Phosphatase 71 Total Protein 6.9 AST 15 Bilirubin, Total 0.5 ALT 13 URINALYSIS WITH REFLEX MICROSCOPIC This note was dictated using a speech recognition program. While an attempt was made at proof reading to minimize errors, minor errors in bicycle assembler may be present call for questions. Theron Ribera PA-C 10/27/23 163 [facility] Work Phone: [phone] History of Present illness Narrative* Heriberto Davalos DO - 07/23/2023 4:00 PM EDT Subjective Patient ID: Jefferson Carcamo is a 62 y.o. male who presents for Follow-up (3 month ). HPI Patient has had some lightheadedness dizziness in the morning when he first wakes up from laying down to sitting up. Patient states he has lower energy since we last saw him. Review of Systems Constitutional: Negative for chills and fever. HENT: Negative for sore throat. Eyes: Negative for visual disturbance. Respiratory: Negative for cough. Cardiovascular: Negative for chest pain, palpitations and leg swelling. Gastrointestinal: Negative for abdominal pain, blood in stool, nausea and vomiting. Genitourinary: Negative for dysuria and hematuria. Skin: Negative for rash. Neurological: Positive for dizziness and light-headedness. Negative for syncope. Objective BP 97/66 Pulse 100 Temp 36.7 C (98 F) (Temporal) Ht 1.778 m (5' 10) Wt 102 kg (225 lb) BMI 32.28 kg/m Physical Exam Vitals and nursing note reviewed. Assessment/Plan Problem List Items Addressed This Visit ICD-10-CM Hyperuricemia E79.0 Relevant Orders Uric acid Benign essential hypertension I10 Relevant Medications lisinopriL-hydrochlorothiazide 20-25 mg tablet Other Relevant Orders Comprehensive metabolic panel Urinalysis with Reflex Microscopic Diabetes mellitus, type 2 (Multi) - Primary E11.9 Relevant Medications semaglutide 0.25 mg or 0.5 mg (2 mg/3 mL) pen injector Other Relevant Orders Comprehensive metabolic panel Urinalysis with Reflex Microscopic POCT glycosylated hemoglobin (Hb A1C) manually resulted (Completed) Hyperlipidemia E78.5 Relevant Orders Lipid panel Multinodular goiter E04.2 Relevant Orders US thyroid (Completed) Thyroid disorder screening Z13.29 Relevant Orders TSH with reflex to Free T4 if abnormal Stage 3b chronic kidney disease (Multi) N18.32 Relevant Orders PTH, intact Phosphorus Prostate cancer screening Z12.5 Relevant Orders Prostate Spec.Ag,Screen documented in this [facility] Work Phone: [phone] 586-132403-06-2024 History of Present illness Narrative* Heriberto Davalos, DO - 04/23/2023 4:00 PM EST Subjective Patient ID: Jefferson Carcamo is a 62 y.o. male who presents for Follow-up (Ozempic /Needs pen needlesif continuing ). HPI Patient hasn't had any effects from going off the Vytorin tablets. Patient Tylenol as needed for pain which is very infrequent. Patient has history of Ankylosing spondylosis. He had seen a defense analyst in the past. Sugars were 175-250 before ozempic. Sugars are now between 125-150 with ozempic. He denies adverse effects from the medication. Patient has been a diabetic for 10 years and prediabetes in his 40s. Review of Systems Constitutional: Negative for chills and fever. HENT: Negative for sore throat. Eyes: Negative for visual disturbance. Respiratory: Negative for cough and shortness of breath. Cardiovascular: Negative for chest pain. Gastrointestinal: Negative for abdominal pain, blood in stool, constipation, diarrhea, nausea and vomiting. Skin: Negative for rash. Neurological: Negative for dizziness, syncope and light-headedness. Psychiatric/Behavioral: Negative for agitation. Objective BP 115/79 Pulse 76 Temp 36.7 C (98 F) (Temporal) Ht 1.778 m (5' 10) Wt 109 kg (241 lb) BMI 34.58 kg/m Physical Exam Vitals and nursing note reviewed. Constitutional: General: He is not in acute distress. Appearance: He is obese. He is not toxic-appearing. HENT: Head: Normocephalic and atraumatic. Mouth/Throat: Mouth: Mucous membranes are moist. Pharynx: Oropharynx is clear. No oropharyngeal exudate. Eyes: Pupils: Pupils are equal, round, and reactive to light. Cardiovascular: Rate and Rhythm: Normal rate and regular rhythm. Pulmonary: Effort: Pulmonary effort is normal. No respiratory distress. Breath sounds: Normal breath sounds. No wheezing or rales. Musculoskeletal: Cervical back: Neck supple. Right lower leg: No edema. Left lower leg: No edema. Skin: General: Skin is warm and dry. Neurological: General: No focal deficit present. Mental Status: He is alert and oriented to person, place, and time. Cranial Nerves: No cranial nerve deficit. Psychiatric: Mood and Affect: Mood normal. Behavior: Behavior normal. Thought Content: Thought content normal. Judgment: Judgment normal. Assessment/Plan Problem List Items Addressed This Visit ICD-10-CM Ankylosing spondylitis of thoracolumbar region (CMS/HCC) M45.5 Diabetes mellitus, type 2 (CMS/HCC) - Primary E11.9 Relevant Medications semaglutide 0.25 mg or 0.5 mg (2 mg/3 mL) pen injector [facility] Work Phone: [phone] History of Present illness Narrative* Heriberto Davalos DO - 03/25/2023 4:00 PM EST Subjective Patient ID: Jefferson Carcamo is a 62 y.o. male who presents for Results. HPI Review of Systems Objective BP 124/80 Pulse 81 Temp 36.7 C (98 F) (Temporal) Ht 1.778 m (5' 10) Wt 112 kg (246 lb) BMI 35.30 kg/m Physical Exam Assessment/Plan Problem List Items Addressed This Visit ICD-10-CM Benign essential hypertension I10 Diabetes mellitus, type 2 (CMS/HCC) - Primary E11.9 Relevant Medications semaglutide 0.25 mg or 0.5 mg (2 mg/3 mL) pen injector Other Relevant Orders Referral to Endocrinology Neck pain on left side M54.2 Relevant Medications cyclobenzaprine (Flexeril) 10 mg tablet [facility] Work Phone: [phone] History of Present illness Narrative* Heriberto Davalos DO - 03/04/2023 4:00 PM EST Subjective Patient ID: Jefferson Carcamo is a 62 y.o. male who presents for Establish Care. HPI Patient is diabetic and was seeing Dr. Charles who has since has retired. Patient has history ofDVT and PE in the past that was unprovoked per the patient. Denies history of gout but has history of hyperuricemia. Patient tried jardiance and he did not like the medication. He did not like the urinary frequency. Review of Systems Objective BP 138/83 Pulse 85 Temp 36.6 C (97.8 F) (Temporal) Ht 1.778 m (5' 10) Wt 112 kg (248 lb) BMI 35.58 kg/m Physical Exam Assessment/Plan Problem List Items Addressed This Visit ICD-10-CM Ankylosing spondylitis of thoracolumbar region (CMS/HCC) M45.5 Relevant Medications acetaminophen (Tylenol 8 Hour) 650 mg ER tablet Asymptomatic hyperuricemia E79.0 Relevant Orders Uric acid (Completed) Benign essential hypertension I10 Relevant Orders CBC and Auto Differential (Completed) Comprehensive metabolic panel (Completed) Diabetes mellitus, type 2 (CMS/[facility]) - Primary E11.9 Relevant Orders CBC and Auto Differential (Completed) Comprehensive metabolic panel (Completed) Lipid panel (Completed) Hemoglobin A1C (Completed) Albumin , Urine Random (Completed) Neuropathy G62.9 Relevant Orders Vitamin B12 (Completed) Thyroid disorder screening Z13.29 Relevant Orders TSH with reflex to Free T4 if abnormal (Completed) documented in this [facility] Work Phone: [phone]) [phone] History of Present illness Narrative* Phillip Bernal MD - 12/23/2022 3:30 PM EST BP 120/82 Pulse 96 Ht 1.778 m (5' 10) Wt 115 kg (254 lb) BMI 36.45 kg/m Past Medical History: Diagnosis Date Anesthesia of skin 03/02/2021 Numbness and tingling Cervicalgia 12/30/2016 Neck pain on right side Chronic kidney disease, stage 3 unspecified (CMS/HCC) 10/06/2019 Chronic renal insufficiency, stage III (moderate) Chronic venous hypertension (idiopathic) with inflammation of left lower extremity 02/28/2016 Chronic venous hypertension with inflammation, left Chronic venous hypertension (idiopathic) with ulcer and inflammation of right lower extremity (CODE) 02/28/2016 Chronic venous hypertension with ulcer and inflammation involving right side Hyperuricemia without signs of inflammatory arthritis and tophaceous disease Elevated uric acid in blood Other specified disorders of bone, shoulder Pain of right clavicle Pain in right shoulder Right shoulder pain, unspecified chronicity Pain in unspecified hip 12/06/2019 Hip pain, acute Personal history of diseases of the blood and blood-forming organs and certain disorders involving the immune mechanism 03/02/2021 History of bleeding disorder Personal history of other diseases of the circulatory system 03/02/2021 History of hypertension Personal history of other diseases of the musculoskeletal system and connective tissue History of arthritis Personal history of other endocrine, nutritional and metabolic disease History of obesity Personal history of other infectious and parasitic diseases 12/04/2018 History of herpes zoster Unilateral primary osteoarthritis, left hip 12/06/2019 Primary osteoarthritis of left hip Unspecified disorder of ear, unspecified ear 03/02/2021 Ear, nose and throat disorder Unspecified sprain of unspecified shoulder joint, initial encounter 11/30/2020 Shoulder sprain Venous insufficiency (chronic) (peripheral) Chronic venous insufficiency of lower extremity Patient Active Problem List Diagnosis Anemia Ankylosing spondylitis of thoracolumbar region (CMS/HCC) Asymptomatic hyperuricemia Benign essential hypertension Diabetes mellitus, type 2 (CMS/HCC) DVT, bilateral lower limbs (CMS/HCC) Edema Elevated CPK Hematuria Hemochromatosis Hyperlipidemia Mixed hyperlipidemia 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 aspirin 81 mg EC tablet Take 1 tablet (81 mg) by mouth once daily. atorvastatin (Lipitor) 10 mg tablet TAKE 1 TABLET BY MOUTH EVERY DAY 90 tablet 1 diclofenac (Voltaren) 75 mg EC tablet Take 1 tablet (75 mg) by mouth 2 times a day. glimepiride (Amaryl) 4 mg tablet Take 1.5 tablets (6 mg) by mouth once daily. lisinopriL-hydrochlorothiazide 20-25 mg tablet Take 2 tablets by mouth once daily. metFORMIN (Glucophage) 1,000 mg tablet TAKE 1/2 TABLET BY MOUTH EVERY 12 HOURS 90 tablet 1 metoprolol succinate XL (Toprol-XL) 25 mg 24 hr tablet Take 1 tablet (25 mg) by mouth once daily. SITagliptin phosphate (Januvia) 25 mg tablet Take 1 tablet (25 mg) by mouth once daily. Xarelto 20 mg tablet TAKE 1 TABLET BY MOUTH EVERY DAY 90 tablet 1 blood sugar diagnostic (Accu-Chek Neena Plus test strp) strip Inject 1 strip into the skin once daily. lancets (Accu-Chek Softclix Lancets) [facility] Use as directed to test daily. No current facility-administered medications for this visit. ASSESSMENT/PLAN Patient here for 1. Ankylosing spondylitis 2. Hypercholesterolemia 3. Diabetes mellitus 4. Hypertension Refill on multiple medications given. Is aware of interaction possible bleeding with the blood thinning medication with the aspirin. Pleasant no apparent distress affect appropriate and bright well-kept younger looking than stated age Neck supple anteriorly no lymphadenopathy no supraclavicular nodes decreased range of motion of theneck back secondary ankylosing spondylitis lungs clear to station heart normal S1-S2 without murmurs or rub no petechiae no purpura on the skin 1. Ankylosing spondylitis refill medication chronic stable 2. Hypercholesterolemia refill medication we will get lab work with his new primary care doctor Dr. Davalos 3. Diabetes mellitus also see Dr. Mcclellan see about future lab work to get better control in terms that regard 4. Hypertension refill medication proceed from there questions concerns addressed. There are no diagnoses linked to this encounter. [facility] Work Phone: [phone]) [phone] History of Present illness Narrative* Patient is here for 1. Hematuria 2. Left hip pain status post replacement her last few months see below 3. Hypertension controlled with above 4. Increased BMI diet modification weight loss possibility. Patient was put on Jardiance. He knows about some of the side effects. He noticed last week that he had what he thought was blood in his urine on multiple occasions possibly little clot was seen inurgent care they checked a urine was negative at that time he is having no signs or symptoms no history of kidney stones no history of any bladder tumors that he is aware of. See medications as is. We still do not have an etiology for above. Has a chronic back pain but no history of kidney stones. Is followed by diplomatic interpreter/translator increase hemoglobin A1c noted PSA within normal limits copy reportwas given. * Pleasant no apparent distress vital signs stable neck supple lungs good auscultation heart normal S1-S2 without murmur throughout back no CVA tenderness left hip slight tenderness over left greater trochanteric bursa area. Decreased abduction abduction and hyperflexion of the hip * 1. Left hip status post replacement will see orthopedic surgeon who did that. There is seems definitely be a biomechanical muscular component but will have the other plain hip checked out no systemicsigns or symptoms 2. Hematuria potentially names urologist given within normal PSA see urologist tosee if we need ultrasound cystoscopy further evaluation with above 3. Hypertension control with above 4. Increased BMI diet modification weight loss possibility 5. Chronic anticoagulation also plays a role potentially what possibly could be going on with and or other we will follow-up in September for annual well and proceed from there. [facility] DO Work Phone: [phone] History of Present illness NarrativeHarry is a followup after physical therapy. He was last seen in the office March 02, 2021. He washaving mostly low back pain off and on most of his life. He was diagnosed at an early age with ankylosing spondylitis. He has had a flare up over the past couple of months and we sent him for physical therapy. He did five visits of physical therapy and got an extensive home workout regimen from [facility] therapy. He says his pain is gone right now. He is not having any pain; maybe just a very mildoccasional ache, but nothing like what he was having. During physical therapy his flare up that he had, had already started to resolve, so he was fairly pain free during physical therapy as well. He is pretty happy with where he is now. He does not feel the need to work this up further or to get anMRI. He has no other complaints of issues at this visit. He denies any fever, chills, nausea, vomiting, or night sweats. He has no bowel or bladder complaints at this visit.[facility] [place] Work Phone: [phone] History of Present illness NarrativeHe continues glimepiride 4 mg pills, 1/2 pill twice daily Metformin 1000 mg pills, 1/2 pill twice daily, and Januvia 25 mg daily. He test his fingerstick glucose once daily at different times with readings in the morning generally around 100 mg/dL. Postprandial readings are occasionally in the [id number], often in the evening. He has had no serious hypoglycemic episodes. He has lost 3 pounds since last visit. Other medications include lisinopril hydrochlorothiazide metoprolol and atorvastatin.[facility] Work Phone: Evaluation note* Diagnosis Ankylosing spondylitis of thoracolumbar region ([facility]/HCC)- Primary Benign essential hypertension Essential hypertension, benign Asymptomatic hyperuricemia Type 2 diabetes mellitus with other specified complication, without long-term current use of insulin ([facility]) Hyperlipidemia, unspecified hyperlipidemia type documented in this encounter [facility] Work Phone: Evaluation note* Diagnosis Type 2 diabetes mellitus with diabetic polyneuropathy, without long-term current use of insulin ([facility])- Primary Ankylosing spondylitis of thoracolumbar region ([facility]/HCC) Benign essential hypertension Essential hypertension, benign Asymptomatic hyperuricemia Thyroid disorder screening Screening for thyroid disorder Neuropathy Mononeuritis of unspecified site documented in this encounter [facility] Work Phone: Evaluation note* Diagnosis Type 2 diabetes mellitus with stage 3b chronic kidney disease, without long-term current use of insulin ([facility])- Primary Neck pain on left side Benign essential hypertension Essential hypertension, benign documented in this encounter [facility] Work Phone: Evaluation note* Diagnosis Type 2 diabetes mellitus with stage 3b chronic kidney disease, without long-term current use of insulin ([facility])- Primary Ankylosing spondylitis of thoracolumbar region ([facility]/HCC) documented in this encounter [facility] Work Phone: Evaluation note* Diagnosis Multinodular goiter Nontoxic multinodular goiter documented in this encounter [facility] Work Phone: Evaluation note* Diagnosis Nephrolithiasis Calculus of kidney documented in this encounter [facility] Work Phone: Evaluation note* Diagnosis Thyroid nodule Nontoxic uninodular goiter documented in this encounter [facility] Work Phone: Evaluation note* Diagnosis Type 2 diabetes mellitus with stage 3b chronic kidney disease, without long-term current use of insulin (Multi)- Primary Benign essential hypertension Essential hypertension, benign Multinodular goiter Nontoxic multinodular goiter Prostate cancer screening Special screening for malignant neoplasm of prostate Thyroid disorder screening Screening for thyroid disorder Mixed hyperlipidemia Hyperuricemia Other abnormal blood chemistry Stage 3b chronic kidney disease (Multi) Multinodular goiter Nontoxic multinodular goiter documented in this encounter [facility] Work Phone: [phone] note* Diagnosis Nephrolithiasis- Primary Calculus of kidney documented in this encounter [facility] Work Phone: [phone] note* Diagnosis Type 2 diabetes mellitus with stage 3b chronic kidney disease, without long-term current use of insulin (Multi)- Primary Benign essential hypertension Essential hypertension, benign Stage 3b chronic kidney disease (Multi) Mixed hyperlipidemia Hyperuricemia Other abnormal blood chemistry Nephrolithiasis Calculus of kidney documented in this encounter [facility] Work Phone: [phone] note* Diagnosis Nephrolithiasis- Primary Calculus of kidney Benign essential hypertension Essential hypertension, benign Stage 3b chronic kidney disease (Multi) Type 2 diabetes mellitus with stage 3b chronic kidney disease, without long-term current use of insulin (Multi) Left eye pain documented in this encounter [facility] Work Phone: [phone] note* Diagnosis Thyroid nodule Nontoxic uninodular goiter documented in this encounter [facility] Work Phone: [phone] note* Diagnosis Nephrolithiasis Calculus of kidney documented in this encounter [facility] Work Phone: [phone] note* Diagnosis Viral upper respiratory illness- Primary Viral upper respiratory illness documented in this encounter [facility] Work Phone: [phone] note* Diagnosis Thyroid nodule- Primary Nontoxic uninodular goiter documented in this encounter [facility] Work Phone: [phone] note* Diagnosis Benign essential hypertension- Primary Essential hypertension, benign Type 2 diabetes mellitus with stage 3b chronic kidney disease, without long-term current use of insulin (Multi) Hyperuricemia Other abnormal blood chemistry Nephrolithiasis Calculus of kidney Thyroid nodule Nontoxic uninodular goiter documented in this encounter [facility] Work Phone: Evaluation note* Diagnosis Neuropathy- Primary Mononeuritis of unspecified site Hypomagnesemia Disorders of magnesium metabolism documented in this encounter [facility] Work Phone: Evaluation note* Diagnosis Neuropathy- Primary Mononeuritis of unspecified site Type 2 diabetes mellitus without complication, without long-term current use of insulin Benign essential hypertension Essential hypertension, benign Stage 3b chronic kidney disease (Multi) Type 2 diabetes mellitus with stage 3b chronic kidney disease, without long-term current use of insulin (Multi) Mixed hyperlipidemia Thyroid disorder screening Screening for thyroid disorder Hyperuricemia Other abnormal blood chemistry Prostate cancer screening Special screening for malignant neoplasm of prostate documented in this encounter [facility] Work Phone: History of Present illness Narrative* See previous lab work with lipid profile comp meta PSA. * 1. Diabetes mellitus 2. Hemochromatosis 3. Hypertension 4. Right shoulder pain see below 5. Ankylosing spondylitis 6. Lower back pain * Patient in the when he had his lower back surgery done over at [facility]. They did not know he had ankylosing spondylitis he had extensive surgery for possible fusion of his lumbar lower area.After surgery it did not help and they found out about ankylosing spondylitis. He is noted chronic r ecurrent pain in that area does not radiate anywhere. No change in his baseline GI or . A few months ago he was working out on his Bowflex. He was on the incline bench press. When he was pushing upwhen he felt something grinder carbon plant snapped in his right shoulder since then if he does not do that typeof maneuver it does not bother him as much. Has never gone back to normal any overhand motion or pushing forward type of motion exacerbates it he is right- hand dominant. He was just seen by public records officer who is pleased that the leukemia has stable with above. Iron levels are down within normal limits. * Pleasant no apparent distress vital signs stable * we did discuss patient does have medical contraindication and is protected by HIPAA for not gettingthe present Covid virus vaccine. * Pleasant no apparent distress vital signs stable right shoulder decreased range of motion 5 to 10 degrees in all direction grinding crepitus overhead noted no instability. The right shoulder is forward anterior placed versus the left. Grossly the biceps triceps within normal limits. Lungs good auscu ltation heart normal S1-S2 without murmur thrill or rub no petechiae no purpura on the body. Back previous V shaped scar from previous lower back surgery. Positive LS paravertebral spasm negative SLRnegative see SLR. Cranial nerves II to XII grossly within normal limits. Does have postural * kyphosis and scoliosis * 1. Right shoulder strain consistent with internal shoulder derangement patient will see orthopedic surgeon 2. Chronic her lower back pain DJD with her history of remote surgery extensive 3. Ankylosing spondylitis will see back specialist names given along with orthopedic surgeon move on that ACACIA 3. Hypertension controlled refill meds as needed 4. Diabetes control with above check labs with abovewith diplomatic interpreter/translator 5. Leukemia stable excellent 6. Hemochromatosis control multifactorial with above 7. Diabetes mellitus controlled moderately per above patient knows what he can do better with diet insight etc. we will follow-up around May. We will get a PSA test in early May and follow-up post that all questions concerns addressed. [facility] DO Work Phone: History of Present illness NarrativeThis is a new patient to our practice, established with our group. This is a 60-year-old male that has had some level of back pain off and on since he was about 14 years old. He has a history of ankylosing spondylitis that was diagnosed in his late teens and early 20s. While in high school he did have a noninstrumented fusion at 19 years old but after that surgery the doctors said that it did nottake because he was not getting any relief. It was only after that he was diagnosed with the ankylosing spondylitis. He has been living with this his whole life, but recently in November 2020 he started having flareups of medium to severe back pain, especially when waking up from a sleeping position. Warm showers tend to make this better, however, the back pain would flare up so bad that it took him an extreme amount of time just to get out of bed. [place] of 2020 he had the worst flareup of back pain but now it seems to be resolving. He has been better now over the past two weeks, he is having minimal pain. He has no radicular pain, he never had any radicular pain. He has not had any physical therapy, he has not had any epidurals and no other surgeries other than the fusion in his back when he was 19 years old. He denies any fever, chills, nausea, vomiting or night sweats. He has no bowel or bladder complaints at this visit.-[facility] Work Phone: History of Present illness NarrativeHe feels well and has no complaints. He continues glimepiride 2 mg twice daily Metformin 500 mg twice daily and Januvia 25 mg daily. He tests his fingerstick glucose once daily at different times with readings generally in the low to mid 100s, occasionally over 200 mg/dL. He has had no hypoglycemicepisodes. He has gained 5 pounds since last visit. Other medications include atorvastatin lisinopril hydrochlorothiazide and metoprolol. He is followed by multiple specialists. [facility] Work Phone: History of Present illness NarrativeHe continues glimepiride 4 mg pills, 1/2 pill twice daily, metformin 1000 mg pills, 1/2 pill twice daily, and Januvia 25 mg daily. He developed intolerable side effects with Jardiance. Weight is stable but he is determined to pursue weight loss with an exercise program and dietary restriction. He has had no hypoglycemic episodes. Other medications include metoprolol atorvastatin lisinopril hydrochlorothiazide Xarelto and allopurinol.[facility] Work Phone: History of Present illness NarrativeHe continues glimepiride 4 mg pills, 1/2 pill twice daily, metformin 1000 mg pills, 1/2 pill twice daily, and Januvia 25 mg daily. He test his fingerstick glucose once daily at different times with readings generally in the 100s, occasionally below 100 mg/dL. He has lost 6 pounds since last visit. He has had no serious hypoglycemic episodes. Other medications include lisinopril/hydrochlorothiazide, allopurinol, and atorvastatin.[facility] Work Phone: Instructions* Name Dates Details Instructions not documented [id number] Work Phone: Reason for referral (narrative)* Consultation (Routine) - Authorized Specialty Diagnoses / Procedures Referred By Contac t Referred To Contact Endocrinology Diagnoses Type 2 diabetes mellitus with stage 3b chronic kidney disease, without long-term current use of insulin ([facility]) [place] [address] [place] [address] [place] [id number] [address] Referral ID Status Reason Start Date Expiration Date Visits Requested Visits Authorized [id number] Authorized Specialty Services Required 03/25/2023 03/24/2024 1 1 [facility] Work Phone: Resgav for referral (narrative)* Consultation (Routine) - Authorized Specialty Diagnoses / Procedures Referred By Contac t Referred To Contact Urology Diagnoses Nephrolithiasis Theron Ribera PA-C [id number] [employer] Department [place] [address] Referral ID Status Reason Start Date Expiration Date Visits Requested Visits Authorized [id number] Authorized Specialty Services Required 10/27/2023 10/26/2024 1 1 [facility] Work Phone: Renqwj for referral (narrative)No reason for referral information availableWSelect [facility] Work Phone: Reason for visit Narrative* Consultation (Routine) - Authorized Specialty Diagnoses / Procedures Referred By Contac t Referred To Contact Urology Diagnoses Nephrolithiasis Theron Ribera PA-C [id number] [employer] Department of Emergency Medicine [place] [id number] Phone: tel: fax: Referral ID Status Reason Start Date Expiration Date Visits Requested Visits Authorized [id number] Authorized Specialty Services Required 10/27/2023 10/26/2024 1 1 [facility] Work Phone: Reason for visit Narrative* Imaging (Routine) - Authorized Specialty Diagnoses / Procedures Referred By Ralph alberts Referred To Contact Radiology Diagnoses Thyroid nodule [place] [address] [address] Department [place] [address] Phone: tel: fax: Referral ID Status Reason Start Date Expiration Date Visits Requested Visits Authorized [id number] Authorized Perform Procedure 11/12/2023 11/11/2024 1 1 [facility] Work Phone: Summary Purpose Family History No Family History Records Found Grandfather Name Dates Details Family history of heart dise ase(V17.49, Z82.49) Status:Active Grandmother Name Dates Details Family history of diabetes m ellitus(V18.0, Z83.3) Status:Active Family history of hypertensi on(V17.49, Z82.49) Status:Active aunt Name Dates Details Family history of cancer(V16 .9, Z80.9) Status:Active Mother Name Dates Details No pertinent family history( V49.89, Z78.9) Status:Active Father Name Dates Details No pertinent family history( V49.89, Z78.9) Status:Active Sister Name Dates Details Family history of thyroid di sease(V18.19, Z83.49) Status:Active Grandfather Name Dates Details Family history of heart dise ase(V17.49, Z82.49) Status:Active Grandfather Name Dates Details Family history of heart dise ase(V17.49, Z82.49) Status:Active Grandmother Name Dates Details Family history of diabetes m ellitus(V18.0, Z83.3) Status:Active Family history of hypertensi on(V17.49, Z82.49) Status:Active aunt Name Dates Details Family history of cancer(V16 .9, Z80.9) Status:Active Mother Name Dates Details No pertinent family history( V49.89, Z78.9) Status:Active Father Name Dates Details No pertinent family history( V49.89, Z78.9) Status:Active Sister Name Dates Details Family history of thyroid di sease(V18.19, Z83.49) Status:Active Grandfather Name Dates Details Family history of heart dise ase(V17.49, Z82.49) Status:Active Grandfather Name Dates Details Family history of heart dise ase(V17.49, Z82.49) Status:Active Grandmother Name Dates Details Family history of diabetes m ellitus(V18.0, Z83.3) Status:Active Family history of hypertensi on(V17.49, Z82.49) Status:Active aunt Name Dates Details Family history of cancer(V16 .9, Z80.9) Status:Active Mother Name Dates Details No pertinent family history( V49.89, Z78.9) Status:Active Father Name Dates Details No pertinent family history( V49.89, Z78.9) Status:Active Sister Name Dates Details Family history of thyroid di sease(V18.19, Z83.49) Status:Active Grandfather Name Dates Details Family history of heart dise ase(V17.49, Z82.49) Status:Active Grandfather Name Dates Details Family history of heart dise ase(V17.49, Z82.49) Status:Active Grandmother Name Dates Details Family history of diabetes m ellitus(V18.0, Z83.3) Status:Active Family history of hypertensi on(V17.49, Z82.49) Status:Active aunt Name Dates Details Family history of cancer(V16 .9, Z80.9) Status:Active Mother Name Dates Details No pertinent family history( V49.89, Z78.9) Status:Active Father Name Dates Details No pertinent family history( V49.89, Z78.9) Status:Active Sister Name Dates Details Family history of thyroid di sease(V18.19, Z83.49) Status:Active Grandfather Name Dates Details Family history of heart dise ase(V17.49, Z82.49) Status:Active Grandfather Name Dates Details Family history of heart dise ase(V17.49, Z82.49) Status:Active Grandmother Name Dates Details Family history of diabetes m ellitus(V18.0, Z83.3) Status:Active Family history of hypertensi on(V17.49, Z82.49) Status:Active aunt Name Dates Details Family history of cancer(V16 .9, Z80.9) Status:Active Mother Name Dates Details No pertinent family history( V49.89, Z78.9) Status:Active Father Name Dates Details No pertinent family history( V49.89, Z78.9) Status:Active Sister Name Dates Details Family history of thyroid di sease(V18.19, Z83.49) Status:Active Grandfather Name Dates Details Family history of heart dise ase(V17.49, Z82.49) Status:Active Grandfather Name Dates Details Family history of heart dise ase(V17.49, Z82.49) Status:Active Grandmother Name Dates Details Family history of diabetes m ellitus(V18.0, Z83.3) Status:Active Family history of hypertensi on(V17.49, Z82.49) Status:Active aunt Name Dates Details Family history of cancer(V16 .9, Z80.9) Status:Active Mother Name Dates Details No pertinent family history( V49.89, Z78.9) Status:Active Father Name Dates Details No pertinent family history( V49.89, Z78.9) Status:Active Sister Name Dates Details Family history of thyroid di sease(V18.19, Z83.49) Status:Active Grandfather Name Dates Details Family history of heart dise ase(V17.49, Z82.49) Status:Active Unknown Family Member Name Dates Details Family history of diabetes m ellitus: Paternal Grandmother(V18.0, Z83.3) Status:Active Family history of thyroid di sease: Sister(V18.19, Z83.49) Status:Active Family history of heart dise ase: Maternal Grandfather, Paternal Grandfather(V17.49, Z82.49) Status:Active Family history of hypertensi on: Paternal Grandmother(V17.49, Z82.49) Status:Active Family history of cancer: Au nt(V16.9, Z80.9) Status:Active No pertinent family history: Mother, Father(V49.89, Z78.9) Status:Active Unknown Family Member Name Dates Details Family history of diabetes m ellitus: Paternal Grandmother(V18.0, Z83.3) Status:Active Family history of thyroid di sease: Sister(V18.19, Z83.49) Status:Active Family history of heart dise ase: Maternal Grandfather, Paternal Grandfather(V17.49, Z82.49) Status:Active Family history of hypertensi on: Paternal Grandmother(V17.49, Z82.49) Status:Active Family history of cancer: Au nt(V16.9, Z80.9) Status:Active No pertinent family history: Mother, Father(V49.89, Z78.9) Status:Active Unknown Family Member Name Dates Details Family history of diabetes m ellitus: Paternal Grandmother(V18.0, Z83.3) Status:Active Family history of thyroid di sease: Sister(V18.19, Z83.49) Status:Active Family history of heart dise ase: Maternal Grandfather, Paternal Grandfather(V17.49, Z82.49) Status:Active Family history of hypertensi on: Paternal Grandmother(V17.49, Z82.49) Status:Active Family history of cancer: Au nt(V16.9, Z80.9) Status:Active No pertinent family history: Mother, Father(V49.89, Z78.9) Status:Active Unknown Family Member Name Dates Details Family history of diabetes m ellitus: Paternal Grandmother(V18.0, Z83.3) Status:Active Family history of thyroid di sease: Sister(V18.19, Z83.49) Status:Active Family history of heart dise ase: Maternal Grandfather, Paternal Grandfather(V17.49, Z82.49) Status:Active Family history of hypertensi on: Paternal Grandmother(V17.49, Z82.49) Status:Active Family history of cancer: Au nt(V16.9, Z80.9) Status:Active No pertinent family history: Mother, Father(V49.89, Z78.9) Status:Active Unknown Family Member Name Dates Details Family history of diabetes m ellitus: Paternal Grandmother(V18.0, Z83.3) Status:Active Family history of thyroid di sease: Sister(V18.19, Z83.49) Status:Active Family history of heart dise ase: Maternal Grandfather, Paternal Grandfather(V17.49, Z82.49) Status:Active Family history of hypertensi on: Paternal Grandmother(V17.49, Z82.49) Status:Active Family history of cancer: Au nt(V16.9, Z80.9) Status:Active No pertinent family history: Mother, Father(V49.89, Z78.9) Status:Active Unknown Family Member Name Dates Details No pertinent family history: Mother, Father(V49.89, Z78.9) Status:Active Family history of cancer: Au nt(V16.9, Z80.9) Status:Active Family history of hypertensi on: Paternal Grandmother(V17.49, Z82.49) Status:Active Family history of heart dise ase: Maternal Grandfather, Paternal Grandfather(V17.49, Z82.49) Status:Active Family history of thyroid di sease: Sister(V18.19, Z83.49) Status:Active Family history of diabetes m ellitus: Paternal Grandmother(V18.0, Z83.3) Status:Active Unknown Family Member Name Dates Details Family history of diabetes m ellitus: Paternal Grandmother(V18.0, Z83.3) Status:Active Family history of thyroid di sease: Sister(V18.19, Z83.49) Status:Active Family history of heart dise ase: Maternal Grandfather, Paternal Grandfather(V17.49, Z82.49) Status:Active Family history of hypertensi on: Paternal Grandmother(V17.49, Z82.49) Status:Active Family history of cancer: Au nt(V16.9, Z80.9) Status:Active No pertinent family history: Mother, Father(V49.89, Z78.9) Status:Active Unknown Family Member Name Dates Details Family history of diabetes m ellitus: Paternal Grandmother(V18.0, Z83.3) Status:Active Family history of thyroid di sease: Sister(V18.19, Z83.49) Status:Active Family history of heart dise ase: Maternal Grandfather, Paternal Grandfather(V17.49, Z82.49) Status:Active Family history of hypertensi on: Paternal Grandmother(V17.49, Z82.49) Status:Active Family history of cancer: Au nt(V16.9, Z80.9) Status:Active No pertinent family history: Mother, Father(V49.89, Z78.9) Status:Active Unknown Family Member Name Dates Details No pertinent family history: Mother, Father(V49.89, Z78.9) Status:Active Family history of cancer: Au nt(V16.9, Z80.9) Status:Active Family history of hypertensi on: Paternal Grandmother(V17.49, Z82.49) Status:Active Family history of heart dise ase: Maternal Grandfather, Paternal Grandfather(V17.49, Z82.49) Status:Active Family history of thyroid di sease: Sister(V18.19, Z83.49) Status:Active Family history of diabetes m ellitus: Paternal Grandmother(V18.0, Z83.3) Status:Active Unknown Family Member Name Dates Details No pertinent family history: Mother, Father(V49.89, Z78.9) Status:Active Family history of cancer: Au nt(V16.9, Z80.9) Status:Active Family history of hypertensi on: Paternal Grandmother(V17.49, Z82.49) Status:Active Family history of heart dise ase: Maternal Grandfather, Paternal Grandfather(V17.49, Z82.49) Status:Active Family history of thyroid di sease: Sister(V18.19, Z83.49) Status:Active Family history of diabetes m ellitus: Paternal Grandmother(V18.0, Z83.3) Status:Active Unknown Family Member Name Dates Details Family history of diabetes m ellitus: Paternal Grandmother(V18.0, Z83.3) Status:Active Family history of thyroid di sease: Sister(V18.19, Z83.49) Status:Active Family history of heart dise ase: Maternal Grandfather, Paternal Grandfather(V17.49, Z82.49) Status:Active Family history of hypertensi on: Paternal Grandmother(V17.49, Z82.49) Status:Active Family history of cancer: Au nt(V16.9, Z80.9) Status:Active No pertinent family history: Mother, Father(V49.89, Z78.9) Status:Active Unknown Family Member Name Dates Details Family history of myocardial infarction: Paternal Grandfather(V17.3, Z82.49) Status:Active No pertinent family history: Mother, Father(V49.89, Z78.9) Status:Active Family history of cancer: Au nt(V16.9, Z80.9) Status:Active Family history of hypertensi on: Paternal Grandmother(V17.49, Z82.49) Status:Active Family history of heart dise ase: Maternal Grandfather, Paternal Grandfather(V17.49, Z82.49) Status:Active Family history of thyroid di sease: Sister(V18.19, Z83.49) Status:Active Family history of diabetes m ellitus: Paternal Grandmother(V18.0, Z83.3) Status:Active Unknown Family Member Name Dates Details Family history of myocardial infarction: Paternal Grandfather(V17.3, Z82.49) Status:Active No pertinent family history: Mother, Father(V49.89, Z78.9) Status:Active Family history of cancer: Au nt(V16.9, Z80.9) Status:Active Family history of hypertensi on: Paternal Grandmother(V17.49, Z82.49) Status:Active Family history of heart dise ase: Maternal Grandfather, Paternal Grandfather(V17.49, Z82.49) Status:Active Family history of thyroid di sease: Sister(V18.19, Z83.49) Status:Active Family history of diabetes m ellitus: Paternal Grandmother(V18.0, Z83.3) Status:Active Unknown Family Member Name Dates Details Family history of diabetes m ellitus: Paternal Grandmother(V18.0, Z83.3) Status:Active Family history of thyroid di sease: Sister(V18.19, Z83.49) Status:Active Family history of heart dise ase: Maternal Grandfather, Paternal Grandfather(V17.49, Z82.49) Status:Active Family history of hypertensi on: Paternal Grandmother(V17.49, Z82.49) Status:Active Family history of cancer: Au nt(V16.9, Z80.9) Status:Active No pertinent family history: Mother, Father(V49.89, Z78.9) Status:Active Family history of myocardial infarction: Paternal Grandfather(V17.3, Z82.49) Status:Active Unknown Family Member Name Dates Details Family history of diabetes m ellitus: Paternal Grandmother(V18.0, Z83.3) Status:Active Family history of thyroid di sease: Sister(V18.19, Z83.49) Status:Active Family history of heart dise ase: Maternal Grandfather, Paternal Grandfather(V17.49, Z82.49) Status:Active Family history of hypertensi on: Paternal Grandmother(V17.49, Z82.49) Status:Active Family history of cancer: Au nt(V16.9, Z80.9) Status:Active No pertinent family history: Mother, Father(V49.89, Z78.9) Status:Active Family history of myocardial infarction: Paternal Grandfather(V17.3, Z82.49) Status:Active Unknown Family Member Name Dates Details Family history of diabetes m ellitus: Paternal Grandmother(V18.0, Z83.3) Status:Active Family history of thyroid di sease: Sister(V18.19, Z83.49) Status:Active Family history of heart dise ase: Maternal Grandfather, Paternal Grandfather(V17.49, Z82.49) Status:Active Family history of hypertensi on: Paternal Grandmother(V17.49, Z82.49) Status:Active Family history of cancer: Au nt(V16.9, Z80.9) Status:Active No pertinent family history: Mother, Father(V49.89, Z78.9) Status:Active Family history of myocardial infarction: Paternal Grandfather(V17.3, Z82.49) Status:Active Unknown Family Member Name Dates Details Family history of diabetes m ellitus: Paternal Grandmother(V18.0, Z83.3) Status:Active Family history of thyroid di sease: Sister(V18.19, Z83.49) Status:Active Family history of heart dise ase: Maternal Grandfather, Paternal Grandfather(V17.49, Z82.49) Status:Active Family history of hypertensi on: Paternal Grandmother(V17.49, Z82.49) Status:Active Family history of cancer: Au nt(V16.9, Z80.9) Status:Active No pertinent family history: Mother, Father(V49.89, Z78.9) Status:Active Family history of myocardial infarction: Paternal Grandfather(V17.3, Z82.49) Status:Active Unknown Family Member Name Dates Details Family history of diabetes m ellitus: Paternal Grandmother(V18.0, Z83.3) Status:Active Family history of thyroid di sease: Sister(V18.19, Z83.49) Status:Active Family history of heart dise ase: Maternal Grandfather, Paternal Grandfather(V17.49, Z82.49) Status:Active Family history of hypertensi on: Paternal Grandmother(V17.49, Z82.49) Status:Active Family history of cancer: Au nt(V16.9, Z80.9) Status:Active No pertinent family history: Mother, Father(V49.89, Z78.9) Status:Active Family history of myocardial infarction: Paternal Grandfather(V17.3, Z82.49) Status:Active Unknown Family Member Name Dates Details Family history of diabetes m ellitus: Paternal Grandmother(V18.0, Z83.3) Status:Active Family history of thyroid di sease: Sister(V18.19, Z83.49) Status:Active Family history of heart dise ase: Maternal Grandfather, Paternal Grandfather(V17.49, Z82.49) Status:Active Family history of hypertensi on: Paternal Grandmother(V17.49, Z82.49) Status:Active Family history of cancer: Au nt(V16.9, Z80.9) Status:Active No pertinent family history: Mother, Father(V49.89, Z78.9) Status:Active Family history of myocardial infarction: Paternal Grandfather(V17.3, Z82.49) Status:Active Unknown Family Member Name Dates Details Family history of diabetes m ellitus: Paternal Grandmother(V18.0, Z83.3) Status:Active Family history of thyroid di sease: Sister(V18.19, Z83.49) Status:Active Family history of heart dise ase: Maternal Grandfather, Paternal Grandfather(V17.49, Z82.49) Status:Active Family history of hypertensi on: Paternal Grandmother(V17.49, Z82.49) Status:Active Family history of cancer: Au nt(V16.9, Z80.9) Status:Active No pertinent family history: Mother, Father(V49.89, Z78.9) Status:Active Family history of myocardial infarction: Paternal Grandfather(V17.3, Z82.49) Status:Active Unknown Family Member Name Dates Details Family history of diabetes m ellitus: Paternal Grandmother(V18.0, Z83.3) Status:Active Family history of thyroid di sease: Sister(V18.19, Z83.49) Status:Active Family history of heart dise ase: Maternal Grandfather, Paternal Grandfather(V17.49, Z82.49) Status:Active Family history of hypertensi on: Paternal Grandmother(V17.49, Z82.49) Status:Active Family history of cancer: Au nt(V16.9, Z80.9) Status:Active No pertinent family history: Mother, Father(V49.89, Z78.9) Status:Active Family history of myocardial infarction: Paternal Grandfather(V17.3, Z82.49) Status:Active Unknown Family Member Name Dates Details Family history of diabetes m ellitus: Paternal Grandmother(V18.0, Z83.3) Status:Active Family history of thyroid di sease: Sister(V18.19, Z83.49) Status:Active Family history of heart dise ase: Maternal Grandfather, Paternal Grandfather(V17.49, Z82.49) Status:Active Family history of hypertensi on: Paternal Grandmother(V17.49, Z82.49) Status:Active Family history of cancer: Au nt(V16.9, Z80.9) Status:Active No pertinent family history: Mother, Father(V49.89, Z78.9) Status:Active Family history of myocardial infarction: Paternal Grandfather(V17.3, Z82.49) Status:Active Unknown Family Member Name Dates Details Family history of diabetes m ellitus: Paternal Grandmother(V18.0, Z83.3) Status:Active Family history of thyroid di sease: Sister(V18.19, Z83.49) Status:Active Family history of heart dise ase: Maternal Grandfather, Paternal Grandfather(V17.49, Z82.49) Status:Active Family history of hypertensi on: Paternal Grandmother(V17.49, Z82.49) Status:Active Family history of cancer: Au nt(V16.9, Z80.9) Status:Active No pertinent family history: Mother, Father(V49.89, Z78.9) Status:Active Family history of myocardial infarction: Paternal Grandfather(V17.3, Z82.49) Status:Active Unknown Family Member Name Dates Details Family history of diabetes m ellitus: Paternal Grandmother(V18.0, Z83.3) Status:Active Family history of thyroid di sease: Sister(V18.19, Z83.49) Status:Active Family history of heart dise ase: Maternal Grandfather, Paternal Grandfather(V17.49, Z82.49) Status:Active Family history of hypertensi on: Paternal Grandmother(V17.49, Z82.49) Status:Active Family history of cancer: Au nt(V16.9, Z80.9) Status:Active No pertinent family history: Mother, Father(V49.89, Z78.9) Status:Active Family history of myocardial infarction: Paternal Grandfather(V17.3, Z82.49) Status:Active Unknown Family Member Name Dates Details Family history of diabetes m ellitus: Paternal Grandmother(V18.0, Z83.3) Status:Active Family history of thyroid di sease: Sister(V18.19, Z83.49) Status:Active Family history of heart dise ase: Maternal Grandfather, Paternal Grandfather(V17.49, Z82.49) Status:Active Family history of hypertensi on: Paternal Grandmother(V17.49, Z82.49) Status:Active Family history of cancer: Au nt(V16.9, Z80.9) Status:Active No pertinent family history: Mother, Father(V49.89, Z78.9) Status:Active Family history of myocardial infarction: Paternal Grandfather(V17.3, Z82.49) Status:Active Unknown Family Member Name Dates Details Family history of diabetes m ellitus: Paternal Grandmother(V18.0, Z83.3) Status:Active Family history of thyroid di sease: Sister(V18.19, Z83.49) Status:Active Family history of heart dise ase: Maternal Grandfather, Paternal Grandfather(V17.49, Z82.49) Status:Active Family history of hypertensi on: Paternal Grandmother(V17.49, Z82.49) Status:Active Family history of cancer: Au nt(V16.9, Z80.9) Status:Active No pertinent family history: Mother, Father(V49.89, Z78.9) Status:Active Family history of myocardial infarction: Paternal Grandfather(V17.3, Z82.49) Status:Active Unknown Family Member Name Dates Details Family history of diabetes m ellitus: Paternal Grandmother(V18.0, Z83.3) Status:Active Family history of thyroid di sease: Sister(V18.19, Z83.49) Status:Active Family history of heart dise ase: Maternal Grandfather, Paternal Grandfather(V17.49, Z82.49) Status:Active Family history of hypertensi on: Paternal Grandmother(V17.49, Z82.49) Status:Active Family history of cancer: Au nt(V16.9, Z80.9) Status:Active No pertinent family history: Mother, Father(V49.89, Z78.9) Status:Active Family history of myocardial infarction: Paternal Grandfather(V17.3, Z82.49) Status:Active Unknown Family Member Name Dates Details Family history of diabetes m ellitus: Paternal Grandmother(V18.0, Z83.3) Status:Active Family history of thyroid di sease: Sister(V18.19, Z83.49) Status:Active Family history of heart dise ase: Maternal Grandfather, Paternal Grandfather(V17.49, Z82.49) Status:Active Family history of hypertensi on: Paternal Grandmother(V17.49, Z82.49) Status:Active Family history of cancer: Au nt(V16.9, Z80.9) Status:Active No pertinent family history: Mother, Father(V49.89, Z78.9) Status:Active Family history of myocardial infarction: Paternal Grandfather(V17.3, Z82.49) Status:Active Unknown Family Member Name Dates Details Family history of diabetes m ellitus: Paternal Grandmother(V18.0, Z83.3) Status:Active Family history of thyroid di sease: Sister(V18.19, Z83.49) Status:Active Family history of heart dise ase: Maternal Grandfather, Paternal Grandfather(V17.49, Z82.49) Status:Active Family history of hypertensi on: Paternal Grandmother(V17.49, Z82.49) Status:Active Family history of cancer: Au nt(V16.9, Z80.9) Status:Active No pertinent family history: Mother, Father(V49.89, Z78.9) Status:Active Family history of myocardial infarction: Paternal Grandfather(V17.3, Z82.49) Status:Active Unknown Family Member Name Dates Details Family history of diabetes m ellitus: Paternal Grandmother(V18.0, Z83.3) Status:Active Family history of thyroid di sease: Sister(V18.19, Z83.49) Status:Active Family history of heart dise ase: Maternal Grandfather, Paternal Grandfather(V17.49, Z82.49) Status:Active Family history of hypertensi on: Paternal Grandmother(V17.49, Z82.49) Status:Active Family history of cancer: Au nt(V16.9, Z80.9) Status:Active No pertinent family history: Mother, Father(V49.89, Z78.9) Status:Active Family history of myocardial infarction: Paternal Grandfather(V17.3, Z82.49) Status:Active Unknown Family Member Name Dates Details Family history of diabetes m ellitus: Paternal Grandmother(V18.0, Z83.3) Status:Active Family history of thyroid di sease: Sister(V18.19, Z83.49) Status:Active Family history of heart dise ase: Maternal Grandfather, Paternal Grandfather(V17.49, Z82.49) Status:Active Family history of hypertensi on: Paternal Grandmother(V17.49, Z82.49) Status:Active Family history of cancer: Au nt(V16.9, Z80.9) Status:Active No pertinent family history: Mother, Father(V49.89, Z78.9) Status:Active Family history of myocardial infarction: Paternal Grandfather(V17.3, Z82.49) Status:Active Unknown Family Member Name Dates Details Family history of diabetes m ellitus: Paternal Grandmother(V18.0, Z83.3) Status:Active Family history of thyroid di sease: Sister(V18.19, Z83.49) Status:Active Family history of heart dise ase: Maternal Grandfather, Paternal Grandfather(V17.49, Z82.49) Status:Active Family history of hypertensi on: Paternal Grandmother(V17.49, Z82.49) Status:Active Family history of cancer: Au nt(V16.9, Z80.9) Status:Active No pertinent family history: Mother, Father(V49.89, Z78.9) Status:Active Family history of myocardial infarction: Paternal Grandfather(V17.3, Z82.49) Status:Active Unknown Family Member Name Dates Details Family history of diabetes m ellitus: Paternal Grandmother(V18.0, Z83.3) Status:Active Family history of thyroid di sease: Sister(V18.19, Z83.49) Status:Active Family history of heart dise ase: Maternal Grandfather, Paternal Grandfather(V17.49, Z82.49) Status:Active Family history of hypertensi on: Paternal Grandmother(V17.49, Z82.49) Status:Active Family history of cancer: Au nt(V16.9, Z80.9) Status:Active No pertinent family history: Mother, Father(V49.89, Z78.9) Status:Active Family history of myocardial infarction: Paternal Grandfather(V17.3, Z82.49) Status:Active Unknown Family Member Name Dates Details Family history of diabetes m ellitus: Paternal Grandmother(V18.0, Z83.3) Status:Active Family history of thyroid di sease: Sister(V18.19, Z83.49) Status:Active Family history of heart dise ase: Maternal Grandfather, Paternal Grandfather(V17.49, Z82.49) Status:Active Family history of hypertensi on: Paternal Grandmother(V17.49, Z82.49) Status:Active Family history of cancer: Au nt(V16.9, Z80.9) Status:Active No pertinent family history: Mother, Father(V49.89, Z78.9) Status:Active Family history of myocardial infarction: Paternal Grandfather(V17.3, Z82.49) Status:Active Unknown Family Member Name Dates Details Family history of diabetes m ellitus: Paternal Grandmother(V18.0, Z83.3) Status:Active Family history of thyroid di sease: Sister(V18.19, Z83.49) Status:Active Family history of heart dise ase: Maternal Grandfather, Paternal Grandfather(V17.49, Z82.49) Status:Active Family history of hypertensi on: Paternal Grandmother(V17.49, Z82.49) Status:Active Family history of cancer: Au nt(V16.9, Z80.9) Status:Active No pertinent family history: Mother, Father(V49.89, Z78.9) Status:Active Family history of myocardial infarction: Paternal Grandfather(V17.3, Z82.49) Status:Active Unknown Family Member Name Dates Details Family history of diabetes m ellitus: Paternal Grandmother(V18.0, Z83.3) Status:Active Family history of thyroid di sease: Sister(V18.19, Z83.49) Status:Active Family history of heart dise ase: Maternal Grandfather, Paternal Grandfather(V17.49, Z82.49) Status:Active Family history of hypertensi on: Paternal Grandmother(V17.49, Z82.49) Status:Active Family history of cancer: Au nt(V16.9, Z80.9) Status:Active No pertinent family history: Mother, Father(V49.89, Z78.9) Status:Active Family history of myocardial infarction: Paternal Grandfather(V17.3, Z82.49) Status:Active Unknown Family Member Name Dates Details Family history of diabetes m ellitus: Paternal Grandmother(V18.0, Z83.3) Status:Active Family history of thyroid di sease: Sister(V18.19, Z83.49) Status:Active Family history of heart dise ase: Maternal Grandfather, Paternal Grandfather(V17.49, Z82.49) Status:Active Family history of hypertensi on: Paternal Grandmother(V17.49, Z82.49) Status:Active Family history of cancer: Au nt(V16.9, Z80.9) Status:Active No pertinent family history: Mother, Father(V49.89, Z78.9) Status:Active Family history of myocardial infarction: Paternal Grandfather(V17.3, Z82.49) Status:Active Unknown Family Member Name Dates Details Family history of diabetes m ellitus: Paternal Grandmother(V18.0, Z83.3) Status:Active Family history of thyroid di sease: Sister(V18.19, Z83.49) Status:Active Family history of heart dise ase: Maternal Grandfather, Paternal Grandfather(V17.49, Z82.49) Status:Active Family history of hypertensi on: Paternal Grandmother(V17.49, Z82.49) Status:Active Family history of cancer: Au nt(V16.9, Z80.9) Status:Active No pertinent family history: Mother, Father(V49.89, Z78.9) Status:Active Family history of myocardial infarction: Paternal Grandfather(V17.3, Z82.49) Status:Active Unknown Family Member Name Dates Details Family history of diabetes m ellitus: Paternal Grandmother(V18.0, Z83.3) Status:Active Family history of thyroid di sease: Sister(V18.19, Z83.49) Status:Active Family history of heart dise ase: Maternal Grandfather, Paternal Grandfather(V17.49, Z82.49) Status:Active Family history of hypertensi on: Paternal Grandmother(V17.49, Z82.49) Status:Active Family history of cancer: Au nt(V16.9, Z80.9) Status:Active No pertinent family history: Mother, Father(V49.89, Z78.9) Status:Active Family history of myocardial infarction: Paternal Grandfather(V17.3, Z82.49) Status:Active Unknown Family Member Name Dates Details Family history of diabetes m ellitus: Paternal Grandmother(V18.0, Z83.3) Status:Active Family history of thyroid di sease: Sister(V18.19, Z83.49) Status:Active Family history of heart dise ase: Maternal Grandfather, Paternal Grandfather(V17.49, Z82.49) Status:Active Family history of hypertensi on: Paternal Grandmother(V17.49, Z82.49) Status:Active Family history of cancer: Au nt(V16.9, Z80.9) Status:Active No pertinent family history: Mother, Father(V49.89, Z78.9) Status:Active Family history of myocardial infarction: Paternal Grandfather(V17.3, Z82.49) Status:Active Relationship Condition Age at Onset Recorded Date/T jeff mother Malignant neoplasm of lung Unknown father Malignant neoplasm of lung Unknown Advance Directives No Advanced Directives Records FoundHealthcare Agents on File Name Relationship Healthcare Agent Relationshi p Communication Kalia Lyle Sibling Health Care Agent (Home) Healthcare Agents on File Name Relationship Healthcare Agent Relationshi p Communication Kalia Lyle Sibling Health Care Agent 47 (Home) Healthcare Agents on File Name Relationship Healthcare Agent Relationshi p Communication Kalia Lyle Sibling Health Care Agent 47 (Home) Healthcare Agents on File Name Relationship Healthcare Agent Relationshi p Communication Kalia Lyle Sibling Health Care Agent 47 (Home) Healthcare Agents on File Name Relationship Healthcare Agent Relationshi p Communication Kalia Lyle Sibling Health Care Agent 47 (Home) Healthcare Agents on File Name Relationship Healthcare Agent Relationshi p Communication Kalia Lyle Sibling Health Care Agent 47 (Home) Healthcare Agents on File Name Relationship Healthcare Agent Relationshi p Communication Kalia Lyle Sibling Health Care Agent 47 (Home) Healthcare Agents on File Name Relationship Healthcare Agent Relationshi p Communication Kalia Lyle Sibling Health Care Agent 47 (Home) Healthcare Agents on File Name Relationship Healthcare Agent Relationshi p Communication Kalia Lyle Sibling Health Care Agent 47 (Home) Healthcare Agents on File Name Relationship Healthcare Agent Relationshi p Communication Kalia Turcu Sibling Health Care Agent Healthcare Agents on File Name Relationship Healthcare Agent Relationshi p Communication Kalia Lyle Sibling Health Care Agent Chief Complaint Follow-up Type 2 diabetesJEFFERSON CARCAMO is here for a follow-up for meds.JEFFERSON CARCAMO is here for a follow-up for meds.* 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 * 6 month follow up Follow-up Type 2 diabetesFollow-up type 2 diabetes Reason for Referral Specialty Diagnoses / Procedures Referred By Contac t Referred To Contact Radiology Diagnoses Multinodular goiter [place] [address] [place] [phone] Referral ID Status Reason Start Date Expiration Date Visits Requested Visits Authorized [id number] Authorized Perform Procedure 07/23/2023 07/22/2024 1 1 Specialty Diagnoses / Procedures Referred By Contac t Referred To Contact Radiology Diagnoses Nephrolithiasis Procedures XR abdomen [place] [address] [place] [address] Referral ID Status Reason Start Date Expiration Date Visits Requested Visits Authorized [id number] Authorized Perform Procedure 11/11/2023 11/10/2024 1 1 Specialty Diagnoses / Procedures Referred By Contac t Referred To Contact Radiology Diagnoses Thyroid nodule [place] [address] [address] [facility] [place] [address] Referral ID Status Reason Start Date Expiration Date Visits Requested Visits Authorized [id number] Authorized Perform Procedure 11/12/2023 11/11/2024 1 1 Chief Complaint and Reason for Visit Chief Complaint Admit Date PE NON DOT PHYSICAL/ POLA BRUSH June 222024 4:16pm PE NON DOT DRUG SCREEN, BAT/ POLA BRU SH June 22, 2024 4:18pm Reason for Visit Admit Date Physical exam, pre-employment June 22, 025 4:16pm Additional Source Comments (unrecognized sect ion and content) No Status Records FoundNo Status Records FoundNo Status Records FoundNo Status Records FoundNo Status Records FoundNo Status Records FoundNo Status Records FoundNo Status Records FoundNo Status Records FoundNo Status Records FoundNo Status Records FoundNo Status Records FoundNo Status Records Found INFORMATION SOURCE (unrecogn ized section and content) DATE CREATED AUTHOR 08/07/2017 [facility] DATE CREATED AUTHOR AUTHOR'S ORGANIZ ATION 07/22/2018 [facility] DATE CREATED AUTHOR AUTHOR'S ORGANIZ ATION 05/09/2020 [facility] DATE CREATED AUTHOR AUTHOR'S ORGANIZ ATION 04/29/2021 [facility] [place] DATE CREATED AUTHOR AUTHOR'S ORGANIZ ATION 12/27/2021 [facility] DATE CREATED AUTHOR AUTHOR'S ORGANIZ ATION 09/21/2022 [facility] DATE CREATED AUTHOR AUTHOR'S ORGANIZ ATION 02/07/2023 [facility] DATE CREATED AUTHOR AUTHOR'S ORGANIZ ATION 11/19/2023 [facility] DATE CREATED AUTHOR AUTHOR'S ORGANIZ ATION 02/16/2024 [facility] DATE CREATED AUTHOR AUTHOR'S ORGANIZ ATION 04/15/2024 [facility] DATE CREATED AUTHOR AUTHOR'S ORGANIZ ATION 08/17/2024 [facility] DATE CREATED AUTHOR AUTHOR'S ORGANIZ ATION 09/21/2024 [facility] DATE CREATED AUTHOR AUTHOR'S ORGANIZ ATION 09/21/2024 [facility] Reason for Visit (unrecogniz ed section and content) Reason Comments Annual Exam Reason Comments Establish Care Reason Comments Results Reason Comments Follow-up Ozempic Needs pen ne edles if continuing Specialty Diagnoses / Procedures Referred By Contac t Referred To Contact Radiology Diagnoses Multinodular goiter [place] [address] [place] [phone] Referral ID Status Reason Start Date Expiration Date Visits Requested Visits Authorized [id number] Authorized Perform Procedure 07/23/2023 07/22/2024 1 1 Reason Comments Follow-up 3 month Reason Comments Flank Pain PT WITH RIGHT FLANK PAIN SINCE 06. +NAUSEA/VOMITING. Reason Comments Follow-up 3 month Reason Comments Follow-up Follow up on BP Reason Comments thyroid nodules Specialty Diagnoses / Procedures Referred By Contac t Referred To Contact Otolaryngology Diagnoses [place] [address] [place] [phone] Goyo Snider MD [address] [phone] Referral ID Status Reason Start Date Expiration Date Visits Requested Visits Authorized [id number] Authorized Specialty Services Required 08/04/2023 08/03/2024 1 1 Specialty Diagnoses / Procedures Referred By Contscott t Referred To Contact Radiology Diagnoses Nephrolithiasis Procedures XR abdomen [place] [address] [place] [id number] Referral ID Status Reason Start Date Expiration Date Visits Requested Visits Authorized [id number] Authorized Perform Procedure 11/11/2023 11/10/2024 1 1 Reason Comments Flu Symptoms PT TESTED POSITIVE F OR COVID FRIDAY. PT STILL HAVING SYMPTOMS AND FEELS SHORT OF BREATH. Reason Comments Follow-up Consult ultrasound Reason Comments Follow-up He saw ENT, Had xray s done and also check on BP Reason Comments Follow-up BP checkPatient was ill in January, not sure what he had, he thought it was COVID. Reason Comments Follow-up Patient has been fee ling unsteady, fatigued and more sensitive to the cold. Results Lab review Care Teams (unrecognized sec tion and content) Agriscience Instructor Relationship Specialty [place] [address] [place] [id number] PCP - [facility] PCP 02/17/21 [place] [address] [place] [address] PCP - General Internal Medicine 12/23/22 Agriscience Instructor Relationship Specialty [place] [address] [place] [address] PCP - [facility] PCP 02/17/21 [place] [address] [place] [address] PCP - General Internal Medicine 12/23/22 Agriscience Instructor Relationship Specialty Start Date End Date Phillip Bernal MD Office Address Unavailable as of 02/01/2023 PCP - [facility] PCP 02/17/21 [place] [address] [place] [address] PCP - General Internal Medicine 12/23/22 Agriscience Instructor Relationship Specialty Start Date End Date Phillip Bernal MD Office Address Unavailable as of 02/01/2023 PCP - [facility] PCP 02/17/21 [place] [address] [place] [address] PCP - General Internal Medicine 12/23/22 Agriscience Instructor Relationship Specialty Start Date End Date Phillip Bernal MD Office Address Unavailable as of 02/01/2023 PCP - [facility] PCP 02/17/21 [place] [address] [place] [address] PCP - General Internal Medicine 12/23/22 Agriscience Instructor Relationship Specialty Start [place] [address] [place] [address] PCP - General Internal Medicine 12/23/22 [place] [address] [place] [address] PCP - [facility] P[facility] 08/18/23 Giovanna Cook MD [address] [place] [address] [address] Consulting Physician Hematology and Oncology 09/22/23 Agriscience Instructor Relationship Specialty Start [place] [address] [place] [address] PCP - General Internal Medicine 12/23/22 [place] [address] [place] [address] PCP - [facility] P[facility] 08/18/23 Giovanna Cook MD [address] [place] [address] Consulting Physician Hematology and Oncology 09/22/23 Agriscience Instructor Relationship Specialty Start Date End Date Phillip Bernal MD Office Address Unavailable as of 02/01/2023 PCP - [facility] PCP 02/17/21 [place] [address] [place] [address] PCP - General Internal Medicine 12/23/22 Agriscience Instructor Relationship Specialty Start Date End Date Phillip Bernal MD Office Address Unavailable as of 02/01/2023 PCP - [facility] PCP 02/17/21 [place] [address] [place] [address] PCP - General Internal Medicine 12/23/22 Giovanna Cook MD [address] [place] [address] [address] [place] [address] Consulting Physician Hematology and Oncology 09/22/23 Agriscience Instructor Relationship Specialty Start Date End Date Phillip Bernal MD Office Address Unavailable as of 02/01/2023 PCP - [facility] PCP 02/17/21 [place] [address] [place] [address] PCP - General Internal Medicine 12/23/22 Giovanna Cook MD [address] [place] [address] [address] [place] [address] Consulting Physician Hematology and Oncology 09/22/23 Agriscience Instructor Relationship Specialty Start Date End Date Phillip Bernal MD Office Address Unavailable as of 02/01/2023 PCP - [facility] PCP 02/17/21 [place] [address] [place] [address] PCP - General Internal Medicine 12/23/22 Giovanna Cook MD [address] [place] [address] [address] [place] [address] Consulting Physician Hematology and Oncology 09/22/23 Agriscience Instructor Relationship Specialty Start Date End Date Phillip Bernal MD Office Address Unavailable as of 02/01/2023 PCP - [facility] PCP 02/17/21 [place] [address] [place] [address] PCP - General Internal Medicine 12/23/22 Giovanna Cook MD [address] [place] [address] [address] [place] [address] Consulting Physician Hematology and Oncology 09/22/23 Agriscience Instructor Relationship Specialty Start Date End Date Phillip Bernal MD Office Address Unavailable as of 02/01/2023 PCP - [facility] PCP 02/17/21 [place] [address] [place] [address] PCP - General Internal Medicine 12/23/22 Giovanna Cook MD [address] [place] [address] [address] [place] [address] Consulting Physician Hematology and Oncology 09/22/23 Agriscience Instructor Relationship Specialty Start [place] [address] [place] [address] PCP - General Internal Medicine 12/23/22 [place] [address] [place] [address] PCP - [facility] P[facility] 08/18/23 Giovanna Cook MD [address] [place] [address] [address] [place] [address] Consulting Physician Hematology and Oncology 09/22/23 Agriscience Instructor Relationship Specialty Start [place] [address] [place] [address] PCP - General Internal Medicine 12/23/22 [place] [address] [place] [address] PCP - [facility] PCP 08/18/23 Giovanna Cook MD [address] [place] [address] [address] [place] [address] Consulting Physician Hematology and Oncology 09/22/23 Agriscience Instructor Relationship Specialty Start [place] [address] [place] [address] PCP - General Internal Medicine 12/23/22 [place] [address] [place] [address] PCP - [facility] PCP 08/18/23 Giovanna Cook MD [address] [place] [address] [address] [place] [address] Consulting Physician Hematology and Oncology 09/22/23 Agriscience Instructor Relationship Specialty Start [place] [address] [place] [address] PCP - General Internal Medicine 12/23/22 [place] [address] [place] [address] PCP - [facility] PCP 08/18/23 Giovanna Cook MD [address] [place] [address] [address] [place] [address] Consulting Physician Hematology and Oncology 09/22/23 Agriscience Instructor Relationship Specialty Start [place] [address] [place] [address] PCP - General Internal Medicine 12/23/22 [place] [address] [place] [address] PCP - [facility] PCP 08/18/23 [place] [address] [facility] [address]ier[address] [place] [address] Consulting Physician Hematology and Oncology 09/22/23 Team Status: Active Member Role/Relationship Status Dates Dr. Mayco Fenton MD Primary Care Provider Active Team Status: Inactive Member Role/Relationship Status Dates JANAY Shelton Attending Provider Active Start: June 22, 2024 End: June 22, 2024 Team Status: Inactive Member Role/Relationship Status Dates JANAY Shelton Attending Provider Active Start: June 22, 2024 End: June 22, 2024 Team Status: Inactive Member Role/Relationship Status Dates Dr. Mayco Fenton MD Primary Care Provider Active Start: September 09, 2024 End: September 09, 2024 Dr. Mayco Fenton MD Attending Provider Active Start: September 09, 2024 End: September 09, 2024 Dr. Mayco Fenton MD Referring Provider Active Start: September 09, 2024 End: September 09, 2024 Scheduled Active and Recently Administ ered Medications (unrecognized section and content) Medication Order 10/25/2023 10/26/2023 10/27/2023 iohexol (OMNIPaque) 350 mg iodine/mL solution 90 mL (COMPLETED) 90 mL, intravenous, Once in imaging, Starting on Fri10/27/23 at 1458, For 1 dose 1510 (Given - Provid er: Kary Campuzano) lactated Ringer's bolus 1,000 mL (COMPLETED) 1,000 mL, intravenous, at 999 mL/hr, Administer over 1 Hours, Once, On Fri10/27/23 at 1400, For 1 dose 1406 (New Bag - Prov ider: Yoana Hernandez RN)1526 (Stopped - Provider: Bennie Oneill RN) ondansetron (Zofran) injection 4 mg (COMPLETED) 4 mg, intravenous, Once, On Fri10/27/23 at 1400, For 1 dose, When administering via IV Push, administer over 3-5 minutes. 1407 (Given - Provid er: Yoana Hernandez RN) Goals (unrecognized section and content) Goals may be documented in a n alternate section FOR RECORDS PERTAINING TO PATIENTS WHO ARE OR HAVE BEEN ENROLLED IN A CHEMICAL DEPENDENCY/SUBSTANCEABUSE PROGRAM, SOME INFORMATION MAY BE OMITTED. This clinical summary was aggregated from multiple sources. Caution should be exercised in using it in the provision of clinical care. This summary normalizes information from multiple sources, and as a consequence, information in this document may materially change the coding, format and clinical context of patient data. In addition, data may be omitted in some cases. CLINICAL DECISIONS SHOULD BE BASED ON THE PRIMARY CLINICAL RECORDS. [facility]. provides no warranty or guarantee of the accuracy or completeness of information in this document.
== END | disposition home or self-care (01) ==
LOC: LABSPEC 17:52
PROVIDERS: PCP Family Medicine; Referring Provider Podiatrist; Visit Provider Podiatrist
DX: L03.031 Cellulitis of right toe (principal)
CPT/HCPCS: 87070; 87075; 87077; 87186; 87205

== ENCOUNTER 2024-10-29 16:36 | Inpatient (IN) | payer BC, SELFPAY ==
[2024-10-29] VITALS (19 sets, daily range): BP systolic 118–162; BP diastolic 63–80; PULSE 89–108; RESP 13–24; TEMP 2.5–37.9; O2SAT 97–100; BMI 30.5; BMI 31.1
--- NOTE | 2024-10-29 17:27 | EKG12_ITS ---
Test Reason : Blood Pressure : */* mmHG Vent. Rate : 106 BPM Atrial Rate : 106 BPM P-R Int : 132 ms QRS Dur : 78 ms QT Int : 320 ms P-R-T Axes : 37 50 39 degrees QTcB Int : 425 ms Sinus tachycardia Otherwise normal ECG Confirmed by Gideon Francis ([id number]), field map editor JAXON BUI ([id number]) on 11/01/2024 1:09:59 PM Referred By: SIL Confirmed By: Gideon Francis
[2024-10-29 17:52] LABS: Hematocrit 36.2 % (40-54); Hemoglobin 11.9 g/dL (13.0-16.5); Immature Granulocytes Count 0.200 X10^3/uL (0.0-0.0); Mean Corp Hgb Conc 32.9 g/dL (32-36); Mean Corpuscular Volume 92.3 fL (80-94); NRBC Flagged by Analyzer 0 % (0-5); POSITIVE DIFFERENTIAL YES; RBC Distribution Width CV 12.6 % (11.6-14.6); RBC Distribution Width SD 42.7 fl (35.1-43.9); Red Blood Count 3.92 M/mm3 (4.6-6.2); White Blood Count 22.9 K/mm3 (4.4-11.0)
[2024-10-29 18:18] LABS: AST(SGOT) 41 U/L (<=37); Alanine Aminotransfer ALT/SGPT 57 U/L (<=46); Albumin, Serum 3.4 g/dL (3.4-4.8); Alkaline Phosphatase 146 U/L (40-129); Anion Gap 12 (5-15); BUN 21 mg/dL (4-19); BUN/Creat Ratio 15.8 RATIO (10-20); Calcium,Total 9.2 mg/dL (7.6-11.0); Carbon Dioxide 22.9 mmol/L (21.0-32.0); Chloride 95 mmol/L (98-108); Estimated Creatinine Clearance 68.18 ml/min (50-250); Globulin 3.9 g/dL (2.2-4.2); Glucose 251 mg/dL (70-99); Potassium 4.3 mmol/L (3.3-5.1)
[2024-10-29] MEDS: 0.9% Normal Saline (1000mL) 1,000 ML 999 ML IV ×3 (18:21→23:56)
[2024-10-29] MEDS: Piperacil/Tazobactam 4.5 GM in 0.9% Normal Saline (100mL MB+) 100 ML IV (18:22)
[2024-10-29 18:33] LABS: Prothrombin Time (Protime)PT. 19.3 SECONDS (11.7-14.9)
[2024-10-29 18:34] LABS: Mucous, Urine 0 SEEN /hpf (<or=2+); Red Blood Cells-Urine 0 SEEN /hpf (0-5)
[2024-10-29 18:34] LABS: Partial Thromboplast Time 21.5 Seconds (24.1-36.2)
--- NOTE | 2024-10-29 18:35 | RAD_ITS ---
PROCEDURE: FOOT MIN 3 VIEWS 10/29/2024 REASON FOR EXAM: DIABETIC FOOT INFECTION/OSTEOMYELITIS TECHNIQUE: Procedure Code: RADFO Modality: DX Procedure: FOOT MIN 3 VIEWS Laterality: Left COMPARISON: None available FINDINGS: Bones: No visible fracture. No bone destruction to suggest osteomyelitis. Joints: Normal alignment. Diffuse degenerative changes. Soft tissues: Extensive soft tissue swelling and emphysema noted throughout the left 5th toe. RAD/Foot min 3 Views IMPRESSION: No acute fractures or dislocations. Soft tissue edema and emphysema at the 5th toe. If there is additional concern for osteomyelitis, recommend further evaluation with MRI. [facility]
[2024-10-29 18:37] LABS: Differential Indicated SCAN CRITERIA MET
--- NOTE | 2024-10-29 18:48 | EX.ED.DYSGE1 ---
HPI History of Present Illness Chief Complaint: Wound Check Detail of Chief Complaint: Infection left foot and little toe Informant: patient and spouse/S.O. Onset/Context/Timing Onset: Weeks Context: Gradual Onset Timing: Continuous Quality: Discoloration left little toe, drainage from foot wound and temperature of Location: Left foot Current Severity: Patient has no pain due to diabetic neuropathy Maximum Severity: No pain due to diabetic neuropathy Worsened by: Presumed due to diabetes and PAD Relieved by: Nothing Associated Symptoms Associated Symptoms: Fever and chills and drainage from infected left foot Narrative Narrative: Patient is a 64-year-old male. 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 He is present under the care of nursing informatics specialist. Television Receiver Analyzer is not in this area. He presents because of a temperature 103.7 at home. Having drainage from the little toe bottom of his foot and his little toe was purple. He states he has no sensation. He is on no immunosuppressive meds. He has no history of medic fever, heart murmur or mitral valve prolapse. There is no history of SBE. Patient denies headache, visual, ocular auditory symptoms. Patient [place] cardiac respiratory symptoms. Patient denies vomiting, diarrhea or abdominal pain. Has had some intermittent nausea. 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 Home Medications ?Medication ?Instructions ?Recorded ?Last Taken ?Type allopurinol 200 mg tablet 300 mg PO QDAY 06/22/24 10/29/24 History atorvastatin 40 mg tablet 10 mg PO QDAY 06/22/24 10/28/24 History glimepiride 2 mg tablet 6 mg PO QAM 06/22/24 10/29/24 History lisinopril 10 mg tablet 5 mg PO QDAY 06/22/24 10/29/24 History metformin 500 mg tablet 500 mg PO QDAY 06/22/24 10/29/24 History metoprolol tartrate 50 mg tablet 25 mg PO QDAY 06/22/24 10/29/24 History rivaroxaban 10 mg tablet (Xarelto) 10 mg PO QDAY 06/22/24 10/28/24 History Allergy/AdvReac Type Severity Reaction Status Date / Time No Known Allergies Allergy Verified 10/29/24 16:39 Family History Mother Lung cancer Father Lung cancer Surgical History History of hip replacement, total Social History (Updated 10/29/24 @ 18:[address] Sriram Nunez MD) household members: spouse Smoking Status: Never smoker EXAM Physical Exam Const Vital Signs: 10/29/24 16:40 10/29/24 16:44 10/29/24 17:39 Temperature 100.2 F H 100.2 F H Temperature Source Oral Oral Pulse Rate 108 H 108 H Respiratory Rate 18 18 Blood Pressure 160/71 H 160/71 H Blood Pressure Mean 100 100 Pulse Ox 99 99 Oxygen Delivery Method Room Air Room Air Room Air 10/29/24 17:39 10/29/24 17:43 10/29/24 17:53 Temperature 100.2 F H Temperature Source Oral Pulse Rate 105 H Respiratory Rate 24 H Blood Pressure 162/80 H 162/80 H Blood Pressure Mean 107 107 Pulse Ox 100 Oxygen Delivery Method Room Air Room Air 10/29/24 17:54 10/29/24 18:00 10/29/24 18:00 Temperature 99.6 F H Temperature Source Oral Pulse Rate 106 H Respiratory Rate 20 H Blood Pressure 152/74 H 152/74 H Blood Pressure Mean 100 100 Pulse Ox 100 99 Oxygen Delivery Method Room Air Room Air 10/29/24 19:00 10/29/24 19:00 Temperature 99.6 F H Temperature Source Oral Pulse Rate 102 H Respiratory Rate 20 H Blood Pressure 151/71 H 151/71 H Blood Pressure Mean 97 97 Pulse Ox 100 Oxygen Delivery Method Room Air Positive well nourished and well developed Constitutional Narrative: Patient appears ill. Vital signs are marked for tachycardia, hypertension and fever General Appearance ED: well developed HEENT Reports dry mucous membranes Negative for trauma Mouth ED: Yes dry mucous membranes Mouth: dry mucous membranes Eyes PERRL and EOMs intact bilaterally General Eye ED: Negative for pale conjunctiva or scleral icterus Neck no lymphadenopathy, supple and no JVD Chest Wall inspection of chest normal and palpation of chest normal Resp normal respiratory effort and clear to auscultation bilaterally Cardio regular rhythm, S1 normal heart sound and S2 normal heart sound Rate: tachycardic GI normal to inspection, nondistended, normoactive bowel sounds, non-tender, non-distended and no masses; Negative for hepatosplenomegaly GI Narrative: There is no inguinal lymphadenopathy on the left. Extremity normal to inspection Extremity Narrative: Patient has necrotic left little toe, there is a open wound size of a chickpea plantar surface of his left foot near the junction of the fifth MTP joint. There is no lymphangitis. There is no popliteal lymphadenopathy. There is purulent material noted from the toe. Culture of the toe and plantar surface of the foot were obtained. Neuro oriented x3, CN's II-XII intact bilaterally and No no sensory deficits noted Sensorium / Orientation: alert Psych mental status grossly normal Skin No no rashes or lesions noted and No no wounds Sepsis Attestation Sepsis Alert: Yes Sepsis Attestation: Agree w/Sepsis Date exam was performed: 10/29/24 Time exam was performed: 17:01 Possible Source of Sepsis: Skin/soft tissue and Wound MDM MDM MDM Narrative Medical decision making narrative: Sepsis workup was initiated. Concern for necrotizing fasciitis, diabetic foot infection, osteo myelitis. Will obtain images appropriate blood work and podiatry was consulted. Dr. Cheney is presently in the department and looking at patient because of the subcu air noted on his x-ray. Lab Data Attestation: I reviewed the patient's lab results. Lab results narrative: White count is elevated 22.9 thousand with shift. H&H 11.9 and 36.2. PTT is slightly elevated 19.3 PTT is low. Comprehensive metabolic panel is mild [place] for mild hyponatremia and hypochloremia. BUN is elevated 21 to creatinine 1.31. Estimated GFR 62. Blood sugar is 251. Labs: Laboratory Results - last 24 hr 10/29/24 10/29/24 17:35 18:20 WBC 22.9 H RBC 3.92 L Hgb 11.9 L Hct 36.2 L MCV 92.3 MCH 30.4 MCHC 32.9 RDW Std Deviation 42.7 RDW Coeff of Sujey 12.6 Plt Count 245 MPV 9.9 Immature Gran % (Auto) 0.900 Neut % (Auto) 84.4 H Lymph % (Auto) 4.1 L Wise % (Auto) 7.8 Eos % (Auto) 2.6 Baso % (Auto) 0.2 Absolute Neuts (auto) 19.4 H Absolute Lymphs (auto) 0.93 Nucleated RBC % 0 PT 19.3 H INR 1.6 APTT 21.5 L Sodium 130 L Potassium 4.3 Chloride 95 L Carbon Dioxide 22.9 Anion Gap 12 BUN 21 H Creatinine 1.31 H Estim Creat Clear Calc 68.18 Est GFR (MDRD) Non-Af 62 BUN/Creatinine Ratio 15.8 Glucose 251 H Lactic Acid 2.0 Calcium 9.2 Total Bilirubin 1.09 AST 41 H ALT 57 H Alkaline Phosphatase 146 H Total Protein 7.2 Albumin 3.4 Globulin 3.9 Albumin/Globulin Ratio 0.9 Urine Color Yellow Urine Clarity Sl. Cloudy Urine pH 6.0 Ur Specific [place] 1.015 Urine Protein 30 H Urine Glucose (UA) 100 H Urine Ketones Negative Urine Occult Blood 10 H Urine Nitrite Negative Urine Bilirubin Negative Urine Urobilinogen Normal Ur Leukocyte Esterase Negative Additional labs Radiography Chest X-Ray - ED: Read by ED Physician (Three-view x-ray of the foot was independent reviewed interpreted by me. There is subcutaneous air. There appears to be destruction of the proximal phalanx of the little toe and possibly head of the fifth metatarsal.) Management Discussion w/another healthcare provider: Hospitalist (Dr. Irene will see patient after after surgery since it is emergent. Plan is admit ICU) and Concrete Craftsman (Case was discussed with Dr. Cheney. He informing that he initially was treating the patient prior to him going to Dr. Glass.) Treatment and Re-Evaluation :: Sepsis workup was initiated after seeing patient. He was treated with Zosyn and vancomycin. Podiatry was consulted. In light of the x-ray findings Dr. Pope was repaged. Comments:: Plan is OR after seen by podiatry. He requested the hospitalist see him in the emergency department for emergent clearance. Critical Care Time Critical Care Time: Yes Critical care time (excluding procedures): 30-74 minutes (33), Including time spent: (History, physical, documentation, independent or potation laboratory results and imaging consultation with podiatry, discussion with hospitalist, facilitate transfer to the OR for emergent surgery. This), Discussing w/Patient &/or Family/Division Officer Weapons Department, Discussing w/Consultants and Arranging Admission or Transfer Discharge Plan Dx/Rx/DC Orders Clinical Impression: Diabetic infection of left foot, Hypertension, Sepsis, Acute osteomyelitis of left foot, Subcutaneous air, Sinus tachycardia Disposition Disposition: Acute Care Hospital [facility]
[2024-10-29 19:06] LABS: Color, Urine Yellow (Yellow); Glucose, Dipstick 100 mg/dl (Normal); Ketone-Dipstick Negative (Negative); Leukocyte Esterase-Dipstick Negative /ul (Negative); Nitrite-Dipstick Negative (Negative); Occult Blood-Urine 10 /ul (Negative); Protein-Dipstick 30 mg/dl (Negative); Specific Gravity, Urine 1.015 (1.002-1.030); Urine Bilirubin Dipstick Negative (Negative)
--- NOTE | 2024-10-29 19:09 | PCM.HP.STD ---
[facility] - General General Date of Admission: 10/29/24 Date of Service: 10/29/24 Chief Complaint: Worsening Left Foot Wound with Fever. HPI Narrative ROBERT KEARNS, is a 64 M with a past medical history of essential hypertension; on lisinopril and metoprolol, hyperlipidemia; on atorvastatin, obesity (class I); with BMI of 30.6 this admission, DM-2; uncontrolled with Hyperglycemia on metformin and glimepiride, history of DFU; followed by a nonlocal customs compliance manager, history of multiple DVT's/PE's; on rivaroxaban, gout; on allopurinol and OA; s/p Left THR who presents to [facility] ER complaining of worsening Left foot wound with fever. Mr. Kearns reports his symptoms began approximately three days prior to admission with increasing drainage from his Left foot wound. Then just prior to admission he spiked a temperature up to 107.7 degrees Fahrenheit with the 5th toe of his Left foot also turning purple so he decided to come in for further evaluation and treatment. He admits to intermittent nausea but he denies associated vomiting, constipation, diarrhea, abdominal pain, chest pain, palpitations, heart racing, dysuria, hematuria or headache. In the ER he was noted to have Leukocytosis of 22.9K with Fever of 100.2 degrees Fahrenheit in addition to persistent Sinus Tachycardia concerning for Sepsis due to worsening Left DFU complicated by Hyperglycemia of 251 mg/dL consistent with Uncontrolled DM-2 with customs compliance manager on-call to take patient for emergent surgery. He was then admitted to the ICU for ongoing care for a stay that is expected to be greater than 2 midnights. [facility] Medical History Physical exam, pre-employment Home Medications ?Medication ?Instructions ?Recorded ?Last Taken ?Type allopurinol 200 mg tablet 300 mg PO QDAY 06/22/24 10/29/24 History atorvastatin 40 mg tablet 10 mg PO QDAY 06/22/24 10/28/24 History glimepiride 2 mg tablet 6 mg PO QAM 06/22/24 10/29/24 History lisinopril 10 mg tablet 5 mg PO QDAY 06/22/24 10/29/24 History metformin 500 mg tablet 500 mg PO QDAY 06/22/24 10/29/24 History metoprolol tartrate 50 mg tablet 25 mg PO QDAY 06/22/24 10/29/24 History rivaroxaban 10 mg tablet (Xarelto) 10 mg PO QDAY 06/22/24 10/28/24 History Allergy/AdvReac Type Severity Reaction Status Date / Time No Known Allergies Allergy Verified 10/29/24 16:39 Family History Mother Lung cancer Father Lung cancer Surgical History History of hip replacement, total Social History household members: spouse Smoking Status: Never smoker ROS ROS Narrative Review of Systems: Constitutional: Patient admits to fever but he denies chills. Eyes: Patient denies changes in vision or discharge from eyes. ENT: Patient denies runny nose, sore throat or ear pain. Resp: Patient denies SOB or cough. CV: Patient denies chest pain, palpitations or heart racing. GI: Patient admits to nausea but he denies vomiting, diarrhea, constipation or abdominal pain. : Patient denies dysuria or hematuria. MSK: Patient denies arthralgias or myalgias. Skin: Patient admits to necrotic, purplish Left 5th toe with drainage of purulent material. Psych: Patient denies symptoms of uncontrolled depression or anxiety. Neuro: Patient denies headache, paresthesias or focal neurologic deficits. Allergy: Patient denies lip swelling, tongue swelling or urticaria. Hematology: Patient admits to easy bleeding or easy bruisability. Endocrinology: Patient admits to polyuria but he denies polyphagia or heat/cold intolerance. 14 point ROS otherwise negative except for positives noted above. Vital Signs Vital Signs Vital Signs: 10/29/24 16:40 10/29/24 16:44 10/29/24 17:39 Temperature 100.2 F H 100.2 F H Temperature Source Oral Oral Pulse Rate 108 H 108 H Respiratory Rate 18 18 Blood Pressure 160/71 H 160/71 H Blood Pressure Mean 100 100 Pulse Ox 99 99 Oxygen Delivery Method Room Air Room Air Room Air 10/29/24 17:39 10/29/24 17:43 10/29/24 17:53 Temperature 100.2 F H Temperature Source Oral Pulse Rate 105 H Respiratory Rate 24 H Blood Pressure 162/80 H 162/80 H Blood Pressure Mean 107 107 Pulse Ox 100 Oxygen Delivery Method Room Air Room Air 10/29/24 17:54 10/29/24 18:00 10/29/24 18:00 Temperature 99.6 F H Temperature Source Oral Pulse Rate 106 H Respiratory Rate 20 H Blood Pressure 152/74 H 152/74 H Blood Pressure Mean 100 100 Pulse Ox 100 99 Oxygen Delivery Method Room Air Room Air 10/29/24 19:00 10/29/24 19:00 Temperature 99.6 F H Temperature Source Oral Pulse Rate 102 H Respiratory Rate 20 H Blood Pressure 151/71 H 151/71 H Blood Pressure Mean 97 97 Pulse Ox 100 Oxygen Delivery Method Room Air Weight Weight: 213 lb Body Mass Index (BMI) 30.5 Physical Exam Const alert, oriented x3 and no apparent distress Constitutional Narrative: Obese patient who is acutely ill in appearance. General Appearance: cooperative HEENT normocephalic, head/scalp atraumatic and hearing grossly normal bilaterally HEENT Narrative: Mucous membranes dry. Eyes PERRL, EOMs intact bilaterally and conjunctivae normal Neck no lymphadenopathy, supple and no JVD Resp normal respiratory effort, no retractions, no use of accessory muscles and clear to auscultation bilaterally Cardio regular rate and regular rhythm Cardio Narrative: Persistent tachycardia @ ~107 bpm. GI normal to inspection, nondistended, normoactive bowel sounds, soft to palpation, non-tender and non-distended Extremity Extremity Narrative: Patient has necrotic Left 5th toe with ~0.5 cm wound on the plantar surface of the foot near the junction of the 5th MTP joint with marked purulent material expressed from the toe. Skin Skin Narrative: Patient has necrotic Left 5th toe with ~0.5 cm wound on the plantar surface of the foot near the junction of the 5th MTP joint with marked purulent material expressed from the toe. Neuro oriented x3, CN's II-XII intact bilaterally, moves all extremities and no focal motor deficits Sensorium / Orientation: awake, alert, oriented to person, oriented to place and oriented to time Speech: speech normal Psych affect normal Results Medical Records Data Attestation: I reviewed the patient's medical records Lab / Micro Data Attestation: I reviewed the patient's lab results. 10/30/24 05:00 10/30/24 05:00 Labs: Laboratory Results - last 24 hr 10/29/24 17:35: WBC 22.9 H, RBC 3.92 L, Hgb 11.9 L, Hct 36.2 L, MCV 92.3, MCH 30.4, MCHC 32.9, RDW Std Deviation 42.7, RDW Coeff of Sujey 12.6, Plt Count 245, MPV 9.9, Immature Gran % (Auto) 0.900, Neut % (Auto) 84.4 H, Lymph % (Auto) 4.1 L, [place] % (Auto) 7.8, Eos % (Auto) 2.6, Baso % (Auto) 0.2, Absolute Neuts (auto) 19.4 H, Absolute Lymphs (auto) 0.93, Nucleated RBC % 0, PT 19.3 H, INR 1.6, APTT 21.5 L, Sodium 130 L, Potassium 4.3, Chloride 95 L, Carbon Dioxide 22.9, Anion Gap 12, BUN 21 H, Creatinine 1.31 H, Estim Creat Clear Calc 68.18, Est GFR (MDRD) Non-Af 62, BUN/Creatinine Ratio 15.8, Glucose 251 H, Lactic Acid 2.0, Calcium 9.2, Total Bilirubin 1.09, AST 41 H, ALT 57 H, Alkaline Phosphatase 146 H, Total Protein 7.2, Albumin 3.4, Globulin 3.9, Albumin/Globulin Ratio 0.9 10/29/24 18:20: Urine Color Yellow, Urine Clarity Sl. Cloudy, Urine pH 6.0, Ur Specific [place] 1.015, Urine Protein 30 H, Urine Glucose (UA) 100 H, Urine Ketones Negative, Urine Occult Blood 10 H, Urine Nitrite Negative, Urine Bilirubin Negative, Urine Urobilinogen Normal, Ur Leukocyte Esterase Negative Imaging [facility] [address], [place] [id number] Foot min 3 Views MR#: [id number] Acct: [id number] Name: ROBERT KEARNS Rep #: [id number] : 1960 M 64 From: Marcin Wing MD PCP: Dr. Mayco Fenton MD Status: REG ER Study: Foot min 3 Views Date of Exam: 10/29/24 Exam# [id number] Ordering Dr: Sriram Nunez MD PROCEDURE: FOOT MIN 3 VIEWS 10/29/2024 REASON FOR EXAM: DIABETIC FOOT INFECTION/OSTEOMYELITIS TECHNIQUE: Procedure Code: RADFO Modality: DX Procedure: FOOT MIN 3 VIEWS Laterality: Left COMPARISON: None available FINDINGS: Bones: No visible fracture. No bone destruction to suggest osteomyelitis. Joints: Normal alignment. Diffuse degenerative changes. Soft tissues: Extensive soft tissue swelling and emphysema noted throughout the left 5th toe. RAD/Foot min 3 Views IMPRESSION: No acute fractures or dislocations. Soft tissue edema and emphysema at the 5th toe. If there is additional concern for osteomyelitis, recommend further evaluation with MRI. Reading Location: [facility] CC: Dr. Mayco Fenton MD; Dr. Sriram Nunez MD ~ Solar Electric/Photovoltaic Installer: Signed [facility] [address] [place] [id number] Foot min 3 Views MR#: [id number] Acct: [id number] Name: ROBERT KEARNS Rep #: [id number] : 1960 M 64 From: Gagandeep Hugo MD PCP: Dr. Mayco Fenton MD Status: ADM IN Study: Foot min 3 Views Date of Exam: 10/29/24 Exam# [id number] Ordering Dr: Javy Lynch DPM PROCEDURE: FOOT MIN 3 VIEWS 10/29/2024 REASON FOR EXAM: POST OP TECHNIQUE: Procedure Code: RADFO Modality: DX Procedure: FOOT MIN 3 VIEWS Laterality: COMPARISON: Earlier on the same day. FINDINGS: Since the previous study, there has been amputation of the 5th toe through the mid shaft of the 5th metatarsal performed. Soft tissue swelling, thickening, and emphysematous changes are noted at the amputation stump.. No osseous erosive or destructive changes. Soft tissue swelling about the foot likely represents generalized cellulitis. Prominent posterior and plantar calcaneal enthesophytes are unchanged from the previous study. RAD/Foot min 3 Views IMPRESSION: As above. Reading Location: [id number] CC: GURDEEP Lynch; Dr. Mayco Fenton MD ~ Solar [employer]/Photovoltaic Installer: Signed Assessment & Plan Assessment/Plan (1) Sepsis: QUALIFIERS: Sepsis acute organ dysfunction status: without acute organ dysfunction Sepsis type: sepsis due to unspecified organism Qualified Code(s): A41.9 - Sepsis, unspecified organism (2) Acute osteomyelitis of left foot: (3) Diabetic infection of left foot: (4) Diabetes mellitus with diabetic polyneuropathy: QUALIFIERS: Diabetes mellitus termite treater insulin use: without senior care use Diabetes mellitus type: type 2 Qualified Code(s): E11.42 - Type 2 diabetes mellitus with diabetic polyneuropathy (5) History of venous thromboembolism: (6) Chronic anticoagulation: (7) Obesity (BMI 30.0-34.9): PLAN: Plan 1. Leukocytosis of 22.9K with Fever of 100.2 degrees Fahrenheit in addition to persistent Sinus Tachycardia concerning for Sepsis - Admit to ICU after medically-necessary emergency surgery that does not require preoperative evaluation. Continue IV piperacillin-tazobactam and IV vancomycin begun in ER and await culture & sensitivity data. Give ondansetron IV prn for nausea and vomiting. Give acetaminophen prn for [id number] (level 1-5/10) pain or fever. Give morphine IV prn for severe (level 6-10/10) pain. Finally, podiatry was to take patient for emergent surgery with help appreciated. 2. Worsening Left DFU complicated by Hyperglycemia of 251 mg/dL consistent with Uncontrolled DM-2 with customs compliance manager on-call to take patient for emergent surgery causing #1 - Keep NPO for now. FSBS q. 6 hours plus lowest-intensity SSI. Check HgbA1c to objectively evaluate quality of diabetic control. 3. History of multiple DVT's/PE's; on rivaroxaban adding to the medical complexity of #1 & #2 - Hold rivaroxaban until patient cleared to restart by podiatry. 4. Obesity (class I); with BMI of 30.6 this admission adding to the burden of disease outlined from #1 - #3 - Weight loss will be recommended. Check TSH. This complicates his case and may hamper recovery. 5. Essential hypertension; on lisinopril and metoprolol - Hold scheduled antihypertensives in light of #1. 6. Hyperlipidemia; on atorvastatin - Resume statin. 7. DM-2; uncontrolled with Hyperglycemia on metformin and glimepiride with history of DFU followed by a nonlocal customs compliance manager - Hold metformin and glimepiride while inpatient. Keep NPO for surgery. Check FSBS q. 6 hours plus give lowest intensity SSI. 8. History of gout; on allopurinol - Stable with no evidence of flare. Continue allopurinol as previous. 9. OA; s/p Left THR - Stable. Give acetaminophen prn as outlined in #1. 10. DVT prophylaxis - Start LMWH after surgery if okay with customs compliance manager. Place [facility]. Total time: Approximately (but not less than) 75 minutes. Sepsis Attestation Sepsis Alert: Yes Sepsis Attestation: Sepsis Ruled Out Date exam was performed: 10/30/24 Time exam was performed: 19:15 Possible Source of Sepsis: Skin/soft tissue Supportive Findings: In the ER he was noted to have Leukocytosis of 22.9K with Fever of 100.2 degrees Fahrenheit in addition to persistent Sinus Tachycardia concerning for Sepsis due to worsening Left DFU complicated by Hyperglycemia of 251 mg/dL consistent with Uncontrolled DM-2 with customs compliance manager on-call to take patient for emergent surgery. Fluid Resuscitation Fluid resuscitation indicated?: Yes Fluid Resuscitation ordered: 30 ml/kg fluid bolus ordered Amount of fluid ordered: 2 Sepsis Note Date exam was performed: 10/29/24 Time exam was performed: 23:15 Sepsis Attestation: Sepsis re-evaluation was performed Response to fluids: Fluid responsive hypotension Charges/Coding Visit Charges Inpatient E&M: 40452 Init Hosp L3
--- NOTE | 2024-10-29 19:41 | PCM.CONS.GEN ---
Assessment & Plan Assessment/Plan (1) Gangrene, not elsewhere classified: (2) Acute osteomyelitis of left foot: (3) Cellulitis of left lower limb: (4) Diabetes mellitus with diabetic polyneuropathy: (5) Type 2 diabetes mellitus with foot ulcer: PLAN: Plan Evaluation performed. Reviewed diagnostic data. There is severe infection left foot with gas gangrene to the 5th ray. Discussed this with patient in detail, reviewing condition and treatment options. Given the severe infection with gas present recommended emergent debridement of all nonviable, necrotic and infected soft tissue and bone from left foot with at least a 5th toe and 5th metatarsal amputation. Reviewed rationale of this with him in detail. He expressed understanding and agreement and he would like to proceed with this procedure at this time. We will add on to go to the operating room for this. I spoke with ER physician as well as with stonemason supervisor anesthesiologist. Patient has been started on IV antibiotics Vanc and Zosyn. Will obtain wound cultures intraoperatively. Blood cultures have been obtained and results pending. LEAS have been ordered for further evaluation of lower extremity arterial flow. Plans for OR as noted above, thank you for consultation. HPI Consult Data Date of Consult: 10/29/24 HPI Narrative Reason for Consultation: Left foot infection HPI Narrative: ROBERT KEARNS, is a 64 M who presents to ER by Dr. Glass for left diabetic foot infection. I am familiar to patient for his ulceration right 2nd toe, he saw me 1 time for this ulceration early September 2024, he did not follow up with me, rather he just saw Dr. Glass, he continues to have that ulceration as well as a new ulceration right sub 5th metatarsal which was debrided by Dr. Glass, but patient's acute issue now is left diabetic foot infection. He relates he believes this just happened today - relates the left 5th toe turned black today. He is not feeling well. He has diabetes with peripheral neuropathy. 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 I was consulted by the Emergency Physician Dr. Nunez. Patient has been started on IV antibiotics Vanc and Zosyn. [facility] Medical History Physical exam, pre-employment Home Medications ?Medication ?Instructions ?Recorded ?Last Taken ?Type allopurinol 200 mg tablet 300 mg PO QDAY 06/22/24 10/29/24 History atorvastatin 40 mg tablet 10 mg PO QDAY 06/22/24 10/28/24 History glimepiride 2 mg tablet 6 mg PO QAM 06/22/24 10/29/24 History lisinopril 10 mg tablet 5 mg PO QDAY 06/22/24 10/29/24 History metformin 500 mg tablet 500 mg PO QDAY 06/22/24 10/29/24 History metoprolol tartrate 50 mg tablet 25 mg PO QDAY 06/22/24 10/29/24 History rivaroxaban 10 mg tablet (Xarelto) 10 mg PO QDAY 06/22/24 10/28/24 History Allergy/AdvReac Type Severity Reaction Status Date / Time No Known Allergies Allergy Verified 10/29/24 16:39 Family History Mother Lung cancer Father Lung cancer Surgical History History of hip replacement, total Social History household members: spouse Smoking Status: Never smoker Physical Exam Const alert, oriented x3 and no apparent distress Constitutional Narrative: Left foot with necrotic left 5th toe, there is severe edema to left foot, there is significant erythema to the foot, there is ulceration to left 5th toe/5th metatarsal with necrosis down to bone and there is purulence pouring out of foot, site is boggy, fluctuant and significant maloder. CFT< 2 seconds to remaining toes bilateral. There is chronic ulceration distal right 2nd toe down to subcutaneous tissue and chronic appearing ulceration sub right 5th MTPJ down to subcutaneout tissue - tissue is mostly granular and some fibrotic tissue present. Left 5th toe is necrotic as already noted, otherwise no evidence of acute ischemia bilateral foot or ankle. Decreased sensation bilateral foot consistent with chronic peripheral neuropathy. No m/s POP or pain on ROM to foot or ankle bilateral. 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 Lab / Micro Data 10/29/24 17:35 10/29/24 17:35 Labs: Laboratory Results - last 24 hr 10/29/24 17:35: WBC 22.9 H, RBC 3.92 L, Hgb 11.9 L, Hct 36.2 L, MCV 92.3, MCH 30.4, MCHC 32.9, RDW Std Deviation 42.7, RDW Coeff of Sujey 12.6, Plt Count 245, MPV 9.9, Immature Gran % (Auto) 0.900, Neut % (Auto) 84.4 H, Lymph % (Auto) 4.1 L, [place] % (Auto) 7.8, Eos % (Auto) 2.6, Baso % (Auto) 0.2, Absolute Neuts (auto) 19.4 H, Absolute Lymphs (auto) 0.93, Nucleated RBC % 0, PT 19.3 H, INR 1.6, APTT 21.5 L, Sodium 130 L 10/29/24 17:35: Sodium Cancelled, Potassium 4.3 10/29/24 17:35: Potassium Cancelled, Chloride 95 L 10/29/24 17:35: Chloride Cancelled, Carbon Dioxide 22.9 10/29/24 17:35: Carbon Dioxide Cancelled, Anion Gap 12 10/29/24 17:35: Anion Gap Cancelled, BUN 21 H 10/29/24 17:35: BUN Cancelled, Creatinine 1.31 H 10/29/24 17:35: Creatinine Cancelled, Estim Creat Clear Calc 68.18 10/29/24 17:35: Estim Creat Clear Calc Cancelled, Est GFR (MDRD) Non-Af 62 10/29/24 17:35: Est GFR (MDRD) Non-Af Cancelled, BUN/Creatinine Ratio 15.8 10/29/24 17:35: BUN/Creatinine Ratio Cancelled, Glucose 251 H 10/29/24 17:35: Glucose Cancelled, Lactic Acid 2.0, Calcium 9.2 10/29/24 17:35: Calcium Cancelled, Total Bilirubin 1.09 10/29/24 17:35: Total Bilirubin Cancelled, AST 41 H 10/29/24 17:35: AST Cancelled, ALT 57 H 10/29/24 17:35: ALT Cancelled, Alkaline Phosphatase 146 H 10/29/24 17:35: Alkaline Phosphatase Cancelled, C-React Prot Ext Range Cancelled, Total Protein 7.2 10/29/24 17:35: Total Protein Cancelled, Albumin 3.4 10/29/24 17:35: Albumin Cancelled, Globulin 3.9 10/29/24 17:35: Globulin Cancelled, Albumin/Globulin Ratio 0.9 10/29/24 17:35: Albumin/Globulin Ratio Cancelled 10/29/24 18:20: Urine Color Yellow, Urine Clarity Sl. Cloudy, Urine pH 6.0, Ur Specific [place] 1.015, Urine Protein 30 H, Urine Glucose (UA) 100 H, Urine Ketones Negative, Urine Occult Blood 10 H, Urine Nitrite Negative, Urine Bilirubin Negative, Urine Urobilinogen Normal, Ur Leukocyte Esterase Negative Imaging Radiology Impression Foot X-Ray 10/29/24 18:35 IMPRESSION: No acute fractures or dislocations. Soft tissue edema and emphysema at the 5th toe. If there is additional concern for osteomyelitis, recommend further evaluation with MRI. Reading Location: [facility]
--- NOTE | 2024-10-29 19:42 | ART_ITS ---
Reason For Study Reason For Study: Lt Toe Wound Left Segmental Pressures Left brachial= 197mmHg. Left posterior tibial artery = >254mmHg. Left digit = 109 mmHg. The left posterior tibial artery waveforms are triphasic. Right Segmental Pressures Right posterior tibial artery = >254mmHg. Right digit = 127 mmHg. The right posterior tibial artery waveforms are triphasic. Indices The right ankle brachial index by the posterior tibial artery is N/C. The right digital-brachial index is 0.64. The left ankle brachial index by the posterior tibial artery is N/C. The left digital- brachial index is 0.55. VL/Lower Ext Art Exam w/o Exercis Interpretation Summary Triphasic Doppler waveforms are noted at ankle level bilaterally. Pulse-volume recordings appear satisfactory at all levels bilaterally. Resting ankle-brachial indices could not be determined on e ither side due to the non-compressibility of the vasculature at ankle level bilaterally. Digital-brachial indices are mil dly diminished bilaterally. There is evidence of arterial calcification at ankle level bilaterally. There i s evidence of mild arterial occlusive disease in the lower extremities bilaterally. Ordering Physician: Javy Lynch Referring Physician: Mayco Fenton Performed By: Ang Connor RVT
[2024-10-29 19:43] LABS: Differential Comment SCANNED
--- NOTE | 2024-10-29 19:45 | CASEMGMT ---
Care Management Face to Face with patient for initial transition planning/care coordination assessment in the ED. This mortgage or loan underwriter introduced self and role at [facility]. Patient alert and oriented. Patient willing to participate in assessment and is able to answer all questions appropriately. Patient's significant other, Keely, was bedside. Care providers, pharmacy, and demographics verified. Admitting Diagnosis: Gangrene, Acute osteomyelitis of left foot, Cellulitis of left lower limb Other diagnosis history: essential hypertension, hyperlipidemia, DM-2DFU, multiple DVT's/PE's, gout PCP: [facility] Specialists: Pramod, podiatry Preferred Pharmacy: [facility] Insurance: [place] (through [employer] - primary). [facility] (through [employer] - secondary). Prescription Benefit: yes Living Will/HPOA: none and denies needing information LNOK: Keely, significant other. Living Arrangements: lives with significant other in a ranch style home with 2 steps to enter. Independent at baseline with all ADLs/IADLs. Transportation: patient drives DME: pulse ox, blood pressure cuff, glucose monitor, shower seat HHC: home PT received in [place] after hip placement 4 years ago SNF/Rehab: none Community Resources: none Patient goals: Patient wishes to discharge home, denies need for home health care at this time, but understands this may not be possible immediately upon discharge. Patient denies any further needs or concerns at this time. Disposition Plan: admission to acute; RN CM/SW to follow for discharge planning needs that may arise. Gricel Wild, ORCHESTRA TEACHER, VENDOR MANAGEMENT SPECIALIST
[2024-10-29 19:51] LABS: CRP 348.00 mg/L (0.0-3.0)
[2024-10-29] MEDS: Vancomycin HCl 2,000 MG in 0.9% Normal Saline (500mL Bag) 500 ML 250 MG IV (20:12)
--- NOTE | 2024-10-29 20:15 | AMP_PTH ---
PATIENT: ROBERT KEARNS LOC: [facility] U#:[id number] AGE/SX: 64/M ROOM: [facility] [place]10[place]29/[address]: Dr. Wes Arellano MD : 1960 BED: 1 DIS: 11/04/2024 SPEC #: [id number] RECD: 10/29/24 21:55 STATUS: CLAUDIA RE #: [id number] LIAM: 10/29/24 20:[address]: Javy Lynch DEPT: SURGICAL PATHOLOGY RECD BY: Darron Hardy ENTERED: 11/01/24 13:03 SP TYPE: Amputation OTHR DR: DO Dr. Delbert Morley MD Dr. Prakash Chand, MD Dr. Paul Nielsen, MD Dr. Robert Leininger, MD Tissues: A - Toe, NOS B - Foot, NOS Procedures: Decalcification bone/plaque Surgery Specimen Level IV Surgery Specimen Level V HEADER OPERATION: Amputation toe/foot PRE-OP DIAGNOSIS: Gangrene, not elsewhere classified, acute osteomyelitis of left foot, cellulitis of left lower limb, diabetes mellitus with diabetic polyneuropathy, type 2 diabetes mellitus with foot ulcer TISSUE SUBMITTED: A- Left amputated 5th toe and metatarsal, B- Clearance fragment left foot MICROSCOPIC DIAGNOSIS A. Left fifth toe and metatarsal, amputation: - Ulcerated skin with underlying gangrenous necrosis with abscess formation in the underlying soft tissue and acute osteomyelitis in the underlying bone with serous fat necrosis of the bone marrow B. Bone fragment, clearance, left foot: * Fragments of necrotic bone trabeculae and adjacent soft tissue MICROSCOPIC DESCRIPTION Slides are reviewed. GROSS DESCRIPTION Received in 2 formalin containers labeled with the patient's name and date of . Designated as: A. Left amputated fifth toe and metatarsal is a 6.3 x 4.8 x 3.5 cm digit anteriorly covered by a nail and with a pink-red to chandler-green, soft and necrotic resection margin. The skin is salguero to chandler and focally peeling with a 4.0 x 3.4 cm ulcerated and peeling lesion on the lateral aspect. Sections have a soft necrotic soft tissue cut surfaces and brittle medullary bone. Track Fitter sections are submitted in 3 cassettes, following decalcification as follows: A1-A2: DigitA3: Bone fragments, including articular cartilage Also received within the container is a 7.5 x 6.2 x 1.7 cm aggregate of pink-red to chandler-green soft tissue fragments some of which are surfaced by salguero skin and irregular bone fragments, one of which is surfaced by articular cartilage (grossly consistent with metatarsal). B. Clearance fragment left foot are 2 irregular salguero bone fragments, 0.5 x 0.4 x 0.2 cm and 0.7 x 0.5 x 0.3 cm. Entirely submitted in 1 cassette, following decalcification. CT 11/01/2024 CPT:17358,95048,01779i1
--- NOTE | 2024-10-29 20:17 | ED.RN ---
pt left unit for surgery at 2014
[2024-10-29 20:18] LABS: Squamous Epithelial Cells - UA 0-5 SEEN /hpf (0-5)
--- NOTE | 2024-10-29 20:50 | PRE.ANES_ITS ---
ASA Classification* ASA Classification ASA Classification: 3 and E Assessment & Plan Anesthesia* Anesthesia Assessment Anesthesia Assessment: Discussed sedation and/or anesthesia options, risks, benefits, and alternatives with patient/parents/legal guardian/POA. Questions invited. The patient/parents/legal guardian/POA seems to understand and agrees to proceed with anesthesia plan. Reviewed the physical assessment, medical history, allergy history and patient home medications list prior to surgery/procedure/anesthetic and documented any changes. Performed airway and anesthesia risk assessments. Anesthesia Type Anesthesia Type: MAC Anesthesia Focused Assessment* Temperature: 99.6 F Pulse Rate: 102 Blood Pressure: 151/71 Respiratory Rate: 20 Pulse Ox: 100 Airway Assessment Mouth opens: >3 cm Mallampati Score: III Labs Anesthesia Preop lab: CBC WBC 22.9 K/mm3 (4.4-11.0) H 10/29/24 17:35 5 RBC 3.92 M/mm3 (4.6-6.2) L 10/29/24 17:35 10/29/24 Hgb 11.9 g/dL (13.0-16.5) L 10/29/24 17:35 5 Hct 36.2 % (40-54) L 10/29/24 17:35 10/29/24 Plt Count TNP 10/29/24 17:35 10/29/24 CHEMISTRY Potassium 4.3 mmol/L (3.3-5.1) 10/29/24 17:35 10/29/24 Sodium 130 mmol/L (133-145) L 10/29/24 17:35 10/29/24 BUN 21 mg/dL (4-19) H 10/29/24 17:35 10/29/24 Creatinine 1.31 mg/dL (0.70-1.20) H 10/29/24 17:35 Glucose 251 mg/dL (70-99) H 10/29/24 17:35 10/29/24 COAG PT 19.3 SECONDS (11.7-14.9) H 10/29/24 17:35 10/18 04/13 Pre-Assessment Diagnosis/Proposed Procedure Planned Operative Procedure(s): id of foot Anesthesia History Anesthesia History - [employer]: Anesthesia History - [employer] Hx Hospitalization Any Problems With Anesthesia Cholinesterase deficiency You/Your Family Experience fever (hyperthermia) with Relationship Recent Exposure to Contagious Disease Does patient have nerve stimulator Patient instructed to have device shut off --Does patient have Pacemaker or ICD? When Was Last Pacemaker Check QUESTION #4 FULL TEXT: You/Your Family Experience fever (hyperthermia) with Anesthesia Last Oral Intake Last Oral intake: Last Oral Intake NPO since Meds taken in AM with sips of water? 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 - [employer]: PONV - [employer] Female HX of Motion Sickness HX of N/V After Surgery Non-Smoker Duration of Surgery greater than 60 minutes Number of Risk Factors PONV Score Height & Weight Height & Weight: Anesthesia: Height & Weight Height 5 ft 10 in 10/29/24 16:40 Weight: 96.615 kg 10/29/24 16:40 Body Mass Index (BMI) 30.5 10/29/24 16:40 Respiratory Assessment Respiratory Assessment - [employer]: Respiratory Tract Infection Hx - [employer] Hx Respiratory Tract Infection STOP Sleep Apnea STOP Sleep Apnea - [employer]: STOP Sleep Apnea - [employer] Hx Hypertension Hx Sleep Apnea CPAP BIPAP Do you snore loudly (louder than talking or can be heard Do you often feel tired/ fatigued/ sleepy during daytime? Has anyone observed you stop breathing during sleep? STOP Results QUESTION #5 FULL TEXT : Do you snore loudly (louder than talking or can be heard through closed doors)? 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 Specify any problems Hx of Preganancy in last 3 Months Nurse Filling Out Transfusion & Questions: Date: Time: Patient unable to answer at this time (ie. confused, unrespo /Reproduction History /Reproductive History - [employer]: /Reproductive Hx- [employer] Hx Now Gestational Age (in weeks): EDC: Hx Hx Para Hx Section SAB Active Medications Active Medications: Current Medications Generic Name Dose Route Start Last Admin Trade Name Freq PRN Reason Stop Dose Admin Sodium Chloride 1,000 mls @ 50 mls/hr 10/29/24 17:05 IV .Q20H VIRGIE PFSH Medical History Physical exam, pre-employment Home Medications ?Medication ?Instructions ?Recorded ?Last Taken ?Type allopurinol 200 mg tablet 300 mg PO QDAY 06/22/2410/18 History atorvastatin 40 mg tablet 10 mg PO QDAY 06/22/2410/28 History glimepiride 2 mg tablet 6 mg PO QAM 06/22/24 5 History lisinopril 10 mg tablet 5 mg PO QDAY 06/22/24 History metformin 500 mg tablet 500 mg PO QDAY 06/22/2410/18 History metoprolol tartrate 50 mg tablet 25 mg PO QDAY 5 10/29/24 History rivaroxaban 10 mg tablet (Xarelto) 10 mg PO QDAY 06/2210/28/24 History Allergy/AdvReac Type Severity Reaction Status Date / Time No Known Allergies Allergy Verified 10/29/24 16:39 Family History Mother Lung cancer Father Lung cancer Surgical History History of hip replacement, total Social History household members: spouse Smoking Status: Never smoker Review of Systems (Anesthesia) ROS Narrative System reviewed and no additional complaints, except as documented.
--- OUTSIDE RECORDS SUMMARY | 2024-10-29 20:50 | XMS RPT_ITS | CCD ---
Author Organization [facility] Providers Care Microbiology Supervisor Name Role Phone ABIOSE, FLAQUITO Unavailable Unavailable UNKNOWN, PROVIDER Unavailable Unavailable ABIOSE, FLAQUITO Unavailable Unavailable UNKNOWN, PROVIDER Unavailable Unavailable UNKNOWN, PROVIDER Unavailable Unavailable ABIOSE, FLAQUITO Unavailable Unavailable [place], Rudi Unavailable Unavailable Nesha Douglas Unavailable Unavailable Phillip Bernal Unavailable Unavailable Karissa, Kofi A Unavailable Unavailable Trinidad, Rudi Unavailable Unavailable Marco Otoole Unavailable Unavailable Rudi Abdi MD Unavailable Unavailable Phillip Bernal Unavailable Unavailable Karissa, Kofi A Unavailable Unavailable Phillip Bernal Unavailable Unavailable Unavailable Dolores Ramirez, Dr. Phillip Connors Primary Care Unava ildewayne Abdi, Dr. Rudi Shah Attending Unava ildewayne Bernal Jr, Dr. Phillip Connors Attending Unava ildewayne Bernal Jr, Dr. Phillip Connors Primary Care Unava ildewayne Bernal Jr, Dr. Phillip Connors Primary Care Unava ilable Giovanna Cook Attending Unavailable Phillip Bernal MD Unavailable Heriberto Davalos DO Primary Care Provider TRISHA SIMONS MD Attending Unavailable PHILLIP BERNAL Primary Care Unavailable Phillip Bernal MD Unavailable Phillip Bernal MD Unavailable Unavailable Giovanna Cook MD Unavailable Heriberto Davalos DO Unavailable Heriberto Davalos DO Primary Care Provider Giovanna Cook MD Unavailable Heriberto Davalos DO Unavailable HERIBERTO DAVALOS Attending Unavailable HERIBERTO DAVALOS Primary Care Unavailable HERIBERTO DAVALOS Attending Unavailable HERIBERTO DAVALOS Primary Care Unavailable GOYO SNIDER Attending Unavailable DAVALOS, HERIBERTO A Referring Unavailable DAVALOS, HERIBERTO A Primary Care Unavailable DAVALOS, HERIBERTO A Attending Unavailable DAVALOS, HERIBERTO A Primary Care Unavailable MAHESH SANTOS Attending Unavailable THERON RIBERA Referring Unavailable DAVALOS, HERIBERTO A Primary Care Unavailable MIMI DONAHUE Attending Unavailable DAVALOS, HERIBERTO A Primary Care Unavailable THUEAKIKO, GOYO E Attending Unavailable DAVALOS, HERIBERTO A Primary Care Unavailable DAVALOS, HERIBERTO A Attending Unavailable DAVALOS, HERIBERTO A Primary Care Unavailable DAVALOS, HERIBERTO A Attending Unavailable DAVALOS, HERIBERTO A Primary Care Unavailable Ariel Melgar Attending Provider [phone] Eliceo AGUERO, Dr. Mao Primary Care Provider Eliceo AGUERO, Dr. Mao Attending Provider Eliceo AGUERO, Dr. Mao Referring Provider DAVALOS, HERIBERTO A Primary Care Unavailable DAVALOS, HERIBERTO A Primary Care Unavailable DAVALOS, HERIBERTO A Primary Care Unavailable PHILLIP DUMONT Attending Unavailable Syed DPTari, Dr. Palafox Attending Provider Syed DPDr. Javy Marc Referring Provider [phone] Ariel Melgar Attending Unavailable Javy Lynch Attending Unavailable Javy Lynch Referring Unavailable Mayco Fenton Primary Care Unavailable Fenton, Mayco Primary Care Unavailable Mayco Fenton Attending Unavailable Fenton, Mayco Referring Unavailable Ariel Melgar Attending Unavailable GIOVANNA COOK Attending Unavailable GIOVANNA COOK Referring Unavailable DAVALOS, HERIBERTO A Primary Care Unavailable THMARVIN BAUERSON E Referring Unavailable DAVALOS, HERIBERTO A Primary Care Unavailable DAVALOS, HERIBERTO A Referring Unavailable DAVALOS, HERIBERTO A Primary Care Unavailable Enrique AGUERO, Dr. Bhatia Emergency Provider [phone] Ruslan Adams DO Admit Provider Unavail able Dr. Ruslan Adams DO Attending Provider Unav ailable Allergies Allergy Classification Reported Allergen(s) Allergy Type Date of Onset Reaction(s) Facility busPIRone (4 sources) busPIRone; Translations: [busPIRone HCl TABS] Drug Allergy Unknown [facility] Work Phone: (20 sources) busPIRone; Translations: [busPIRone] Drug Allergy 12-10-2022 Unknown [facility] (20 sources) busPIRone; Translations: [busPIRone HCl TABS] Drug Allergy Anup Work Phone: (20 sources) empagliflozin; Translations: [Jardiance TABS] Drug Allergy 12-10-2022 Unknown Anup Work Phone: (3 sources) empagliflozin; Translations: [EMPAGLIFLOZIN] Drug Allergy 12-10-2022 [facility] 3 Repository Medications Current Medications Medication Drug Class(es) Dates Sig (Normalized) Sig (Original) allopurinol 300 mg oral tablet (20 sources) Xanthine Oxidase Inhibitor Start: 07-16-2024 take 1 tablet by mouth once daily allopurinol (Zyloprim) 300 mg tablet Indications: Asymptomatic hyperuricemia TAKE 1 TABLET BY MOUTH EVERY DAY 90 tablet 1 07/16/2024 Active Start: 06-22-2024 Allopurinol 20 0 mg tablet Active 300 mg PO daily June 22, 2024 12:00am Start: 06-22-2024 take 1 tablet by irma th once daily Allopurinol 200 mg tablet Active [...] daily. 90 tablet 2 12/23/2022 Active atorvastatin 10 mg oral tablet (20 sources) HMG-CoA Reductase Inhibitor Start: 08-17-2024 take 1 tablet by mouth once daily atorvastatin (Lipitor) 10 mg tablet Indications: Hyperlipidemia, unspecified hyperlipidemia type TAKE 1 TABLET BY MOUTH EVERY DAY 90 tablet 08/17/2024 Active Start: 06-22-2024 take 10 mg by mouth once daily Atorvastatin 40 mg tablet Active 10 mg PO daily June 22, 2024 12:00am Start: 06-22-2024 take 1 tablet by irma th once daily Atorvastatin 40 mg tablet Active 40 mg PO daily June 22, 2024 12:00am Start: 02-04-2021 End: 02-15-2024 take 1 tablet by mouth once daily atorvastatin (Lipitor) 10 mg tablet Indications: Hyperlipidemia, unspecified hyperlipidemia type TAKE 1 TABLET BY MOUTH EVERY DAY 90 tablet 1 02/15/2024 Active glimepiride 2 mg oral tablet (20 sources) Sulfonylurea Start: 06-22-2024 take 3 tablets by mouth once daily at breakfast Glimepiride 2 mg tablet Active 6 mg PO EVERY MORNING June 22, 2024 12:00am administer with breakfast Start: 06-22-2024 take 1 tablet by irma th once daily at breakfast Glimepiride 2 mg [...] BY MOUTH EVERY DAY 135 tablet 1 05/16/2024 Active Start: 01-18-2016 take 1.5 tablets by mouth [...] 10-May-2015 Active lisinopril 10 mg oral tablet (9 sources) Angiotensin Converting Enzyme Inhibitor Start: 06-22-2024 take 5 mg by mouth once daily Lisinopril 10 mg tablet Active 5 mg PO daily June 22, 2024 12:00am Start: 04-19-2024 take 0.5 tablet by m outh once daily lisinopril 10 mg tablet Indications: [...] MOUTH EVERY 12 HOURS 90 tablet 1 05/16/2024 Active Start: 06-08-2023 take 0.5 tablet by m [...] 12 HOURS 90 tablet 1 11/25/2022 Active 24 hr metoprolol succinate 25 mg extended release oral tablet (20 sources) beta-Adrenergic Latrice Start: 07-16-2024 take 1 tablet by mouth once daily metoprolol succinate XL (Toprol-XL) 25 mg 24 hr tablet Indications: Benign essential hypertension TAKE 1 TABLET BY MOUTH DAILY 90 tablet 1 07/16/2024 Active Start: 06-22-2024 Metoprolol Tar trate 50 mg tablet Active 25 mg PO daily June 22, 2024 12:00am Start: 06-22-2024 take 1 tablet by irma th once daily Metoprolol Tartrate 50 mg tablet Active 50 mg PO daily June 22, 2024 12:00am Start: 10-30-2023 take 1 tablet by irma th once daily metoprolol succinate XL (Toprol-XL) 25 [...] BY MOUTH EVERY DAY 90 tablet 1 05/16/2024 Active Start: 05-19-2023 take 1 tablet by irma th once daily Xarelto 20 mg tablet Indications: [...] 0 04/23/2023 07/22/2023 Active Start: 03-25-2023 End: 04-23-2023 semaglutide 0.25 mg or 0.5 m g [...] Refills: 0 Ordered: 14-Jun-2021 DO Start : 28-Apr-2022 Complete cyclobenzaprine hydrochloride 10 mg oral tablet [...] capsule 02/03/2024 Active omega-3 acid ethyl esters (intermediate) 1000 mg oral capsule (2 sources) Fish [...] Active Problems Problem Classification Problem Date Documented Da te Episodic/Chronic Administrative/social admission (6 sources) Patient encounter status; Translations: [Encounter for pre-employment examination] Onset: 06-22-2024 06-22-2024 Episodic Cardiac dysrhythmias (2 sources) Sinus tachycardia; Translations: [Tachycardia, unspecified] 10-29-2024 Episodic Chronic kidney disease (20 sources) Chronic kidney [...] anemia Onset: 05-23-2017 Diabetes mellitus with complications (10 sources) Type 2 diabetes mellitus with diabetic chronic kidney disease; Translations: [Foot ulcer due to type 2 diabetes mellitus] Onset: 12-10-2022 Chronic Diabetes mellitus without complication [...] hypertension (1 source) Essential hypertension Onset: 05-19-2017 Gangrene (2 sources) Gangrenous disorder; Translations: [Gangrene, not elsewhere classified] 10-29-2024 Episodic Infective arthritis and osteomyelitis (except that caused by tuberculosis or sexually transmitted disease) (2 sources) Acute osteomyelitis of left foot; Translations: [Other acute osteomyelitis, left ankle and foot] 10-29-2024 Chronic Leukemias (20 sources) Large granular lymphocytic leukemia; [...] Translations: [Personal history of arthritis] Episodic Other injuries and conditions due to external causes (2 sources) Subcutaneous emphysema; Translations: [Traumatic subcutaneous emphysema, initial encounter] 10-29-2024 Episodic Other male genital disorders (20 sources) Secondary erectile dysfunction; Translations: [Impotence of organic origin] Onset: 12-10-2022 12-10-2022 Chronic Other male genital disorders (20 sources) Male erectile dysfunction, unspecified; Translations: [Erectile dysfunction] Chronic Other nervous system disorders (20 sources) Neuropathy; Translations: [Mononeuritis of unspecified site] Onset: 12-10-2022 12-10-2022 Chronic Other nervous system disorders (2 sources) Polyneuropathy, unspecified; Translations: [Polyneuropathy, unspecified] Onset: [...] Chronic Other nutritional; endocrine; and metabolic disorders (6 sources) Hypomagnesemia; Translations: [Hypomagnesemia] Onset: 03-03-2024 03-03-2024 Chronic Other nutritional; endocrine; and metabolic disorders (1 source) Hypomagnesemia; Translations: [Hypomagnesemia] Onset: 03-03-2024 Chronic Other nutritional; endocrine; and metabolic disorders (4 sources) Hereditary hemochromatosis; Translations: [Hereditary hemochromatosis] Onset: 12-10-2022 Chronic Other nutritional; endocrine; and metabolic disorders (1 source) Hereditary hemochromatosis; Translations: [Hereditary hemochromatosis] 10-01-2024 Chronic Other upper respiratory disease (20 sources) Allergic rhinitis; Translations: [Allergic rhinitis, cause unspecified] Onset: 03-25-2023 03-25-2023 Chronic Phlebitis; thrombophlebitis and thromboembolism (20 sources) Bilateral deep vein thrombosis of lower extremities; Translations: [Acute venous embolism and thrombosis of unspecified deep vessels of lower extremity] Onset: 11-24-2006 12-10-2022 Episodic Residual codes; unclassified (18 sources) Swelling - edema - symptom; Translations: [Edema] Episodic Rheumatoid arthritis and related disease (20 sources) Ankylosing spondylitis; Translations: [Ankylosing spondylitis] Onset: 12-10-2022 Resolved: 10-01-2024 12-23-2022 Chronic Septicemia (except in labor) (2 sources) Sepsis; Translations: [Sepsis, unspecified organism] 10-29-2024 Episodic Skin and subcutaneous tissue infections (3 sources) Cellulitis of right toe; Translations: [Cellulitis of left lower limb] Onset: 09-28-2024 10-29-2024 Episodic Spondylosis; intervertebral disc disorders; other back [...] M54.2(ICD-9) Onset: 05-23-2017 Unclassified (1 source) Other snf (current) drug therapy / Z79.899(ICD-9) Onset: 05-19-2017 [...] Other Problems Problem Classification Problem Date Documented Date Episodic/Chronic Calculus of urinary tract (20 sources) Kidney stone; Translations: [Calculus of kidney] Onset: 10-27-2023 12-10-2023 Episodic Conditions associated with dizziness or vertigo (18 sources) Dizziness; Translations: [Dizziness and giddiness] Onset: 08-13-2021 03-25-2023 Episodic Deficiency and other anemia (20 sources) Anemia; Translations: [Anemia, unspecified] Onset: 12-10-2022 12-10-2022 Episodic Genitourinary symptoms and ill-defined conditions (20 sources) Blood in urine; Translations: [Hematuria, unspecified] Onset: 12-10-2022 12-10-2022 Episodic Mood disorders (19 sources) Mood disorders Onset: 11-30-2020 03-30-2022 Osteoarthritis [...] Episodic Other ear and sense organ disorders (18 sources) Impacted cerumen in right ear; Translations: [Impacted cerumen, right ear] Onset: 01-31-2023 03-25-2023 Episodic Other eye disorders (12 sources) Pain of left eye; Translations: [Ocular [...] 12-10-2022 12-10-2022 Episodic Other lower respiratory disease (18 sources) Dyspnea; Translations: [Shortness of breath] Onset: [...] blood chemistry] Onset: 12-10-2022 12-23-2022 Episodic Other nutritional; endocrine; and metabolic disorders (2 sources) Hyperuricemia without signs of inflammatory arthritis and tophaceous disease; Translations: [Hyperuricemia without signs of inflammatory arthritis and tophaceous disease] Onset: 07-23-2023 Episodic Other screening for suspected conditions (not mental disorders or infectious disease) (20 sources) Breast neoplasm screening status; Translations: [Other screening mammogram] Onset: 04-03-2023 03-04-2023 Episodic Other upper respiratory infections (10 sources) Viral upper respiratory tract infection; Translations: [Acute upper respiratory infection, unspecified] Onset: 02-07-2024 02-07-2024 Episodic Pulmonary heart disease (20 sources) Pulmonary [...] smoked tobacco; Translations: [Never a smoker] Unclassified (19 sources) Onset: 12-23-2022 Resolved: 04-19-2024 12-23-2022 Viral infection (20 sources) Herpes zoster; Translations: [Herpes zoster without mention of complication] Onset: 03-25-2023 03-25-2023 Episodic NEGATED: Highlighted row has not occurred!Residual codes; unclassified (20 sources) Disease Episodic Results Test Name Value Interpretation Reference Range Facility Absolute lymphocyte countOrd ered By: Sriram Nunez on 10-29-2024 Lymphocytes Auto (Unsp spec) [#/Vol] 0.93 10*3/uL 0.83-4.51 [facility] Absolute neutrophil countOrd ered By: Sriramzunilda Nunez on 10-29-2024 Neutrophils (Bld) [#/Vol] 19.4 10*3/uL High 2.0-7.7 [facility] Activated partial thrombopla stin time (aPTT) in platelet poor plasma by coagulation aOrdered By: Sriram Nunez on 10-29-2024 aPTT Coag (PPP) [Time] 21.5 s Low 24.1-36.2 [facility] Anion gap in Serum or Plasma Ordered By: Sriram Nunez on 10-29-2024 Anion gap [Moles/Vol] 12 mmol/L 5-15 [facility] Automated lymphocyte count a s percentage of total leukocytesOrdered By: Sriram Nunez on 10-29-2024 Lymphocytes/100 WBC Auto (Unsp spec) 4.1 % Low 19-41 [facility] BUN/creatinine ratioOrdered By: Sriramzunilda Nunez on 10-29-2024 Urea nitrogen/Creatinine [Mass ratio] 15.8 mg/mg 10-20 [facility] Basophil percentageOrdered B y: Sriram Nunez on 10-29-2024 Basophils/100 WBC (Bld) 0.2 % 0-1 [facility] Bilirubin Test strip Ql (U)O rdered By: Sriram Nunez on 10-29-2024 Bilirubin Ql (U) Negative Negative [facility] Bilirubin, totalOrdered By: Sriram Nunez on 10-29-2024 Bilirubin [Mass/Vol] 1.09 mg/dL 0.00-1.30 [facility] Blood manual differential co mment interpretation (narrative result)Ordered By: Sriram Nunez on 10-29-2024 Manual differential comment Edson (Bld) [Interp] SCANNED [facility] Carbon dioxide, total [Moles /volume] in Central venous bloodOrdered By: Sriram Nunez on 10-29-2024 CO2 [Moles/Vol] 22.9 mmol/L 21.0-32.0 [facility] Chloride assayOrdered By: Mikey Nunez on 10-29-2024 Chloride [Moles/Vol] 95 mmol/L Low 98-108 [facility] Eosinophil percentageOrdered By: Sriram Nunez on 10-29-2024 Eosinophils/100 WBC (Bld) 2.6 % 0-5 [facility] Erythrocyte distribution wid th ratioOrdered By: Sriram Nunez on 10-29-2024 Erythrocyte distribution width (RBC) [Ratio] 12.6 % 11.6-14.6 [facility] Erythrocyte distribution wid th standard deviationOrdered By: Sriram Nunez on 10-29-2024 Erythrocyte distribution width (RBC) [Ratio] 42.7 fl 35.1-43.9 [facility] Erythrocyte sedimentation ra teOrdered By: Sriram Nunez on 10-29-2024 ESR (Bld) [Velocity] 84 mm/h High 0-20 [facility] Glomerular filtration rate ( GFR) estimation/1.73 sq m using serum, plasma, or whole bOrdered By: Sriram Nunez on 10-29-2024 GFR/1.73 sq M.predicted among non-blacks MDRD (S/P/Bld) [Vol rate/Area] 62 mL/min/{1.73_m2} >60 [facility] Comment on above: mL/min/1.73m2 CKD-EP I Creatinine Equation (2020) Hematocrit Auto (Bld) [Volum e fraction]Ordered By: Sriram Nuenz on 10-29-2024 Hematocrit (Bld) [Volume fraction] 36.2 % Low 40-54 [facility] Hemoglobin measurementOrdere d By: Sriram Nunez on 10-29-2024 Hemoglobin (Bld) [Mass/Vol] 11.9 g/dL Low 13.0-16.5 [facility] Immature granulocytes/100 WB C Auto (Bld)Ordered By: Sriram Nunez on 10-29-2024 Immature granulocytes/100 WBC (Bld) 0.900 % 0.0-0.9 [facility] Comment on above: IG% - Immature Granu locytes (promyelocytes, myelocytes and metamyelocytes) > 1% indicates that a LEFT SHIFT is Present. International normalized rat io (INR) calculationOrdered By: Sriram Nunez on 10-29-2024 INR Coag (Bld) [Relative time] 1.6 {INR} [facility] Ketones Test strip Ql (U)Ord ered By: Sriram Nunez on 10-29-2024 Ketones Ql (U) Negative Negative [facility] Laboratory - Chemistry and C hemistry - challengeOrdered By: Sriram Nunez on 10-29-2024 AST [Catalytic activity/Vol] 41 U/L High <38 [facility] Lactic acid measurementOrder ed By: Sriram Nuenz on 10-29-2024 Lactate [Moles/Vol] 2.0 mmol/L 0.0-2.0 [facility] Comment on above: Critical Result(s) C alled at 10/29/2024-18:48 by Phillip Ziegler to Mary Timmons. Results read back by same. MCV (mean corpuscular volume ) determinationOrdered By: Sriram Nunez on 10-29-2024 MCV (RBC) [Entitic vol] 92.3 fL 80-94 [facility] Mean corpuscular hemoglobin (MCH) determinationOrdered By: Sriram Nunez on 10-29-2024 MCH (RBC) [Entitic mass] 30.4 pg 27.0-32.0 [facility] Mean corpuscular hemoglobin concentration (MCHC) determinationOrdered By: Sriramzunilda Nunez on 10-29-2024 MCHC (RBC) [Mass/Vol] 32.9 g/dL 32-36 [facility] Mean platelet volume determi nationOrdered By: Sriram Nunez on 10-29-2024 Mean platelet volume determination TNP [facility] Comment on above: Test not performedPr evious reported result: 9.9 flEdited by: TAYLOR on 09/12/25:1945 AMENDED REPORT 10/29/241944 MPV previously reported as: 9.9 fl Monocyte percentageOrdered B y: Sriram Nunez on 10-29-2024 Monocytes/100 WBC (Bld) 7.8 % 0-10 [facility] Neutrophil percentageOrdered By: Sriram Nunez on 10-29-2024 Neutrophils/100 WBC (Bld) 84.4 % High 47-70 [facility] Nitrite Test strip Ql (U)Ord ered By: Sriram Nunez on 10-29-2024 Nitrite Ql (U) Negative Negative [facility] Nucleated red blood cell per centageOrdered By: Sriram Nunez on 10-29-2024 Nucleated RBC/100 WBC (Bld) [Ratio] 0 % 0-5 [facility] Platelet countOrdered By: Mikey Nunez on 10-29-2024 Platelet count TNP [facility] Comment on above: Test not performedPl ease note: For this sample, a platelet estimate is provided rather than a platelet count due to platelet clumping. Other parameters associated with this sample are not affected by platelet clumping. If a more accurate platelet count is required, a redraw of the patient will be necessary.Previous reported result: 245 [id number] by: TAYLOR on 10/29/24:1943 AMENDED REPORT 10/29/241943 PLT previously reported as: 245 K/mm3 Platelet estimateOrdered By: Sriram Nunez on 10-29-2024 Platelets LM Ql (Bld) MKD INC ADEQ [facility] Potassium measurement (mass/ volume)Ordered By: Sriram Nunez on 10-29-2024 Potassium (Unsp spec) [Mass/Vol] 4.3 mmol/L 3.3-5.1 [facility] Protein Test strip Ql (U)Ord ered By: Sriram Nunez on 10-29-2024 Protein Ql (U) 30 mg/dl High Negative [facility] Prothrombin timeOrdered By: Sriram Nunez on 10-29-2024 PT Coag (PPP) [Time] 19.3 s High 11.7-14.9 [facility] RBC Auto (Bld) [#/Vol]Ordere d By: Sriram Nunez on 10-29-2024 RBC (Bld) [#/Vol] 3.92 10*6/uL Low 4.6-6.2 [facility] Serum creatinine measurement (mass/volume)Ordered By: Sriram Nunez on 10-29-2024 Creatinine [Mass/Vol] 1.31 mg/dL High 0.70-1.20 [facility] Serum globulin measurementOr dered By: Sriram Nunez on 10-29-2024 Globulin (S) [Mass/Vol] 3.9 g/dL 2.2-4.2 [facility] Serum glucose measurement (m ass/volume)Ordered By: Sriram Nunez on 10-29-2024 Glucose [Mass/Vol] 251 mg/dL High 70-99 [facility] Serum or plasma C reactive p rotein measurement (mass/volume)Ordered By: ED PROVIDER on 10-29-2024 CRP [Mass/Vol] 348.00 mg/L High 0.0-3.0 [facility] Serum or plasma alanine cummings otransferase (ALT) measurementOrdered By: Sriram Nunez on 10-29-2024 ALT [Catalytic activity/Vol] 57 U/L High <47 [facility] Serum or plasma albumin anna urement (mass/volume)Ordered By: Sriram Nunez on 10-29-2024 Albumin [Mass/Vol] 3.4 g/dL 3.4-4.8 [facility] Serum or plasma albumin/glob ulin mass ratioOrdered By: Sriram Nunez on 10-29-2024 Albumin/Globulin [Mass ratio] 0.9 {ratio} 0.9-2.4 [facility] Serum or plasma alkaline fe sphatase measurementOrdered By: Sriram Nunez on 10-29-2024 ALP [Catalytic activity/Vol] 146 U/L High 40-129 [facility] Serum or plasma calcium anna urement (mass/volume)Ordered By: Sriram Nunez on 10-29-2024 Calcium [Mass/Vol] 9.2 mg/dL 7.6-11.0 [facility] Serum or plasma urea nitroge n measurement (mass/volume)Ordered By: Sriram Nunez on 10-29-2024 Urea nitrogen [Mass/Vol] 21 mg/dL High 4-19 [facility] Sodium levelOrdered By: Sriram Nunez on 10-29-2024 Sodium [Moles/Vol] 130 mmol/L Low 133-145 [facility] Total proteinOrdered By: Sriram Nunez on 10-29-2024 Protein [Mass/Vol] 7.2 g/dL 5.9-8.4 [facility] Urine clarityOrdered By: Sriram Nunez on 10-29-2024 Clarity (U) Sl. Cloudy Clear [facility] Urine color determinationOrd ered By: Sriram Nunez on 10-29-2024 Color (U) Yellow Yellow [facility] Urine glucose detectionOrder ed By: Sriram Nuenz on 10-29-2024 Glucose Ql (U) 100 mg/dl High Normal [facility] Urine leukocyte esterase det ection by dipstickOrdered By: Sriram Nunez on 10-29-2024 Leukocyte esterase Test strip Ql (U) Negative Negative [facility] Urine pHOrdered By: Sriram mauro on 10-29-2024 pH (U) 6.0 [pH] 5.0 - 8.0 [facility] Urine specific gravity measu rementOrdered By: Sriramzunilda Nunez on 10-29-2024 Specific gravity (U) [Rel density] 1.015 1.002-1.030 [facility] Urine urobilinogen measureme ntOrdered By: Sriram Nunez on 10-29-2024 Urobilinogen Ql (U) Normal mg/dl Normal [facility] White blood cell (WBC) count Ordered By: Sriram Nunez on 10-29-2024 WBC (Bld) [#/Vol] 22.9 10*3/uL High 4.4-11.0 [facility] Culture, Anaerobic Any Sourc jackelyn 09-27-2024 CUAN ONLY AN AEROBIC SWAB WAS COLLECTED. GROWTH OF ANAEROBES MAY BE INHIBITED. CELLULITIS RIGHT Studies have confirmed that Anaerobic Gram Positive Cocci are routinely SUSCEPTABLE to Penicillin and generally susceptible to Beta-lactams and Beta-lactamase inhibitors, Cephalosporins, Carbapenems and Metronidazole. They are showing increased RESISTANCE to Clindamycin Anaerobic cocci Normal [facility] Comment on above: Performed By: #### M 100.3000, M100.4001, M1 #### [facility] [address] [place], [address] Wound Cultureon 09-26-2024 WC ONLY AN AEROBIC SWAB WAS COLLECTED. GROWTH OF ANAEROBES MAY BE INHIBITED. CELLULITIS RIGHT #1, 4 Clinical correlation necessary, Possible skin contamination. #3 Susceptibility not normally performed on this organism. Wound Culture Wound Culture Staphylococcus warneri Amount Growth 2+ Streptococcus agalactiae (B) Streptococcus agalactiae (B) CORAXY Amount Growth 2+ Corynebacterium amycolatum/xer Amount Growth 2+ Staphylococcus warneri: REACTION Staphylococcus epidermidis Doxycycline Islt ALICE 2 Clindamycin Islt ALICE 0.25 S Clindamycin.induced Susc Islt Erythromycin Islt ALICE <=0.25 S Gentamicin Islt ALICE <=0.5 S Linezolid Islt ALICE 2 S Oxacillin Susc Islt <=0.25 S Tetracycline Islt ALICE >=16 R TMP SMX Islt ALICE <=10 S Vancomycin Islt ALICE 1 S Streptococcus agalactiae (B): REACTION Ampicillin Islt ALICE <=0.25 S cefTRIAXone Islt ALICE <=0.12 S Clindamycin Islt ALICE >=1 R Clindamycin.induced Susc Islt Linezolid Islt ALICE <=2 S Vancomycin Islt ALICE 0.5 S Staphylococcus epidermidis: REACTION cefOXitin Susc Islt NEG Doxycycline Islt ALICE 2 S Clindamycin Islt ALICE 0.25 S Clindamycin.induced Susc Islt Erythromycin Islt ALICE >=8 R Gentamicin Islt ALICE <=0.5 S Linezolid Islt ALICE 2 S Oxacillin Susc Islt <=0.25 S Tetracycline Islt ALICE >=16 R TMP SMX Islt ALICE <=10 S Vancomycin Islt ALICE 1 S Normal [facility] Comment on above: Performed By: #### M 100.3000, M100.400, M1 #### [facility] [address] [place], [place], [id number] Gram Stainon 09-23-2024 GS CELLULITIS RIGHT Gram Stain Rare Gram negative rods Rare Gram positive cocci No cells seen Normal [facility] Comment on above: Performed By: #### M 100.3000, M100.4001, M100.2000 #### [facility] [address] [place], [place], [address] Anaerobic cultureOrdered By: Javy Lynch on 09-22-2024 Bacteria identified Anaer cx Nom (Unsp spec) Anaerobic cocci Abnormal [facility] Gram stainOrdered By: Bebo Lynch on 09-22-2024 Microscopic observation Gram stain Nom (Unsp spec) [facility] Routine wound cultureOrdered By: Javy Lynch on 09-22-2024 Microbial culture, routine Streptococcus agalactiae (B) Abnormal [facility] Microbial culture, routine Corynebacterium amycolatum/xer Abnormal [facility] Microbial culture, routine Staphylococcus epidermidis Abnormal [facility] CBC W Auto Differential pane l (Bld)on 09-16-2024 Basophils (Bld) [#/Vol] 0.05 x10*3/uL Normal 0.00-0.10 [facility] Comment on above: Performed By: #### 2 4323-8 #### SILVERIO NI ([id number]) [facility]) [address] [place] [address] Basophils/100 WBC (Bld) 0.4 % Normal 0.0-2.0 [facility] Comment on above: Performed By: #### 2 4323-8 #### SILVERIO NI ([id number]) [facility]) [address] [place] [address] Eosinophils (Bld) [#/Vol] 0.10 x10*3/uL Normal 0.00-0.70 [facility] Comment on above: Performed By: #### 2 4323-8 #### SILVERIO NI ([id number]) [facility] ([facility]) [address] [place] [address] Eosinophils/100 WBC (Bld) 0.8 % Normal 0.0-6.0 [facility] Comment on above: Performed By: #### 2 4323-8 #### SILVERIO NI ([id number]) [facility] ([facility]) [address] [place] [address] Erythrocyte distribution width (RBC) [Ratio] 12.6 % Normal 11.5-14.5 [facility] Comment on above: Performed By: #### 2 4323-8 #### SILVERIO NI ([id number]) [facility] ([facility]) [id number] [place] [address] Hematocrit (Bld) [Volume fraction] 39.4 % Low 41.0-52.0 [facility] Comment on above: Performed By: #### 2 4323-8 #### SILVERIO NI ([id number]) [facility] ([facility]) [id number] [place] [address] Hemoglobin (Bld) [Mass/Vol] 12.8 g/dL Low 13.5-17.5 [facility] Comment on above: Performed By: #### 2 4323-8 #### SILVERIO NI ([id number]) [facility] ([facility]) [id number] [place] [address] Immature granulocytes (Bld) [#/Vol] 0.03 x10*3/uL Normal 0.00-0.70 [facility] Comment on above: Performed By: #### 2 4323-8 #### SILVERIO NI ([id number]) [facility] ([facility]) [id number] [place] [address] Immature granulocytes/100 WBC (Bld) 0.2 % Normal 0.0-0.9 [facility] Comment on above: Result Comment: Leesa ture Granulocyte Count (IG) includes promyelocytes, myelocytes and metamyelocytes but does not include bands. Percent differential counts (%) should be interpreted in the context of the absolute cell counts (cells/UL). Performed By: #### 2 4323-8 #### SILVERIO NI ([id number]) [facility] ([facility]) [id number] [place] [address] Lymphocytes (Bld) [#/Vol] 3.23 x10*3/uL Normal 1.20-4.80 [facility] Comment on above: Performed By: #### 2 4323-8 #### SILVERIO NI ([id number]) [facility] ([facility]) [address] [place] [address] Lymphocytes/100 WBC (Bld) 25.1 % Normal 13.0-44.0 [facility] Comment on above: Performed By: #### 2 4323-8 #### SILVERIO NI ([id number]) [facility] ([facility]) [address] [place] [address] MCH (RBC) [Entitic mass] 30.5 pg Normal 26.0-34.0 [facility] Comment on above: Performed By: #### 2 4323-8 #### SILVERIO NI ([id number]) [facility] ([facility]) [address] [place] [address] MCHC (RBC) [Mass/Vol] 32.5 g/dL Normal 32.0-36.0 [facility] Comment on above: Performed By: #### 2 4323-8 #### SILVERIO NI ([id number]) [facility] ([facility]) [address] [place] [address] MCV (RBC) [Entitic vol] 94 fL Normal 80-100 [facility] Comment on above: Performed By: #### 2 4323-8 #### SILVERIO NI ([id number]) [facility] ([facility]) [address] [place] [address] Monocytes (Bld) [#/Vol] 0.93 x10*3/uL Normal 0.10-1.00 [facility] Comment on above: Performed By: #### 2 4323-8 #### SILVERIO NI ([id number]) [facility] ([facility]) [address] [place] [address] Monocytes/100 WBC (Bld) 7.2 % Normal 2.0-10.0 [facility] Comment on above: Performed By: #### 2 4323-8 #### SILVERIO NI ([id number]) [facility] ([facility]) [address] [place] [address] Neutrophils (Bld) [#/Vol] 8.55 x10*3/uL High 1.20-7.70 [facility] Comment on above: Result Comment: Perc ent differential counts (%) should be interpreted in the context of the absolute cell counts (cells/uL). Performed By: #### 2 4323-8 #### SILVERIO NI ([id number]) [facility] ([facility]) [address] [place] [address] Neutrophils/100 WBC (Bld) 66.3 % Normal 40.0-80.0 [facility] Comment on above: Performed By: #### 2 4323-8 #### SILVERIO NI ([id number]) [facility] ([facility]) [address] [place] [address] Nucleated RBC/100 WBC (Bld) [Ratio] 0.0 /100 WBCs Normal 0.0-0.0 [facility] Comment on above: Performed By: #### 2 4323-8 #### SILVERIO NI ([id number]) [facility] ([facility]) [address] [place] [address] Platelets (Bld) [#/Vol] 311 x10*3/uL Normal 150-450 [facility] Comment on above: Performed By: #### 2 4323-8 #### SILVERIO NI ([id number]) [facility] ([facility]) [address] [place] [address] RBC (Bld) [#/Vol] 4.20 x10*6/uL Low 4.50-5.90 [facility] Comment on above: Performed By: #### 2 4323-8 #### SILVERIO NI ([id number]) [facility] ([facility]) [address] [place] [address] WBC (Bld) [#/Vol] 12.9 x10*3/uL High 4.4-11.3 [facility] Comment on above: Performed By: #### 2 4323-8 #### SILVERIO NI ([id number]) [facility] ([facility]) [address] [place] [address] Comprehensive metabolic 2000 panelon 09-16-2024 Albumin BCP dye [Mass/Vol] 4.0 g/dL Normal 3.4-5.0 [facility] Comment on above: Performed By: #### 2 4323-8 #### SILVERIO NI ([id number]) [facility] ([facility]) [address] [place] [address] ALP [Catalytic activity/Vol] 86 U/L Normal 33-136 [facility] Comment on above: Performed By: #### 2 4323-8 #### SILVERIO NI ([id number]) [facility] ([facility]) [address] [place] [address] ALT With P-5'-P [Catalytic activity/Vol] 17 U/L Normal 10-52 [facility] Comment on above: Result Comment: Svetlana ents treated with Sulfasalazine may generate falsely decreased results for ALT. Performed By: #### 2 4323-8 #### SILVERIO NI ([id number]) [facility] ([facility]) [address] [place] [address] Anion gap [Moles/Vol] 12 mmol/L Normal 10-20 [facility] Comment on above: Performed By: #### 2 4323-8 #### SILVERIO NI ([id number]) [facility] ([facility]) [address] [place] [address] AST With P-5'-P [Catalytic activity/Vol] 20 U/L Normal 9-39 [facility] Comment on above: Performed By: #### 2 4323-8 #### SILVERIO NI ([id number]) [facility] ([facility]) [address] [place] [address] Bilirubin [Mass/Vol] 0.6 mg/dL Normal 0.0-1.2 [facility] Comment on above: Performed By: #### 2 4323-8 #### SILVERIO NI ([id number]) [facility] ([facility]) [address] [place] [address] Calcium [Mass/Vol] 9.4 mg/dL Normal 8.6-10.3 [facility] Comment on above: Performed By: #### 2 4323-8 #### SILVERIO NI ([id number]) [facility] ([facility]) [address] [place] [address] Chloride [Moles/Vol] 103 mmol/L Normal 98-107 [facility] Comment on above: Performed By: #### 2 4323-8 #### SILVERIO NI ([id number]) [facility] ([facility]) [address] [place] [address] CO2 [Moles/Vol] 30 mmol/L Normal 21-32 [facility] Comment on above: Performed By: #### 2 4323-8 #### SILVERIO NI ([id number]) [facility] ([facility]) [address] [place] [address] Creatinine [Mass/Vol] 1.04 mg/dL Normal 0.50-1.30 [facility] Comment on above: Performed By: #### 2 4323-8 #### SILVERIO NI ([id number]) [facility] ([facility]) [address] [place] [address] Glomerular filtration rate 81 mL/min/1.73m*2 Normal >60 [facility] Comment on above: Result Comment: Calc ulations of estimated GFR are performed using the 2020 CKD-EPI Study Refit equation without the race variable for the IDMS-Traceable creatinine methods. https://jasn.asnjournals.org/content//ASN.58206 69049 Performed By: #### 2 4323-8 #### SILVERIO NI ([id number]) [facility] ([facility]) [address] [place] [address] Glucose [Mass/Vol] 84 mg/dL Normal 74-99 [facility] Comment on above: Performed By: #### 2 4323-8 #### SILVERIO NI ([id number]) [facility] ([facility]) [address] [place] [address] Potassium [Moles/Vol] 4.5 mmol/L Normal 3.5-5.3 [facility] Comment on above: Performed By: #### 2 4323-8 #### SILVERIO NI ([id number]) [facility] ([facility]) [address] [place] [address] Protein [Mass/Vol] 7.0 g/dL Normal 6.4-8.2 [facility] Comment on above: Performed By: #### 2 4323-8 #### SILVERIO NI ([id number]) [facility] ([facility]) [address] [place] [address] Sodium [Moles/Vol] 140 mmol/L Normal 136-145 [facility] Comment on above: Performed By: #### 2 4323-8 #### SILVERIO NI ([id number]) [facility] ([facility]) [address] [place] [address] Urea nitrogen [Mass/Vol] 16 mg/dL Normal 6-23 [facility] Comment on above: Performed By: #### 2 4323-8 #### SILVERIO NI ([id number]) [facility] ([facility]) [address] [place] [address] Ferritinon 09-16-2024 Ferritin [Mass/Vol] 76 ng/mL Normal 20-300 [facility] Comment on above: Performed By: #### 2 4323-8 #### SILVERIO NI ([id number]) [facility] ([facility]) [address] [place] [address] Iron and Iron binding capaci ty panelon 09-16-2024 Iron [Mass/Vol] 52 ug/dL Normal 35-150 [facility] Comment on above: Performed By: #### 2 4323-8 #### SILVERIO NI ([id number]) [facility] ([facility]) [address] [place] [address] Iron binding capacity [Mass/Vol] 280 ug/dL Normal 240-445 [facility] Comment on above: Performed By: #### 2 4323-8 #### SILVERIO NI ([id number]) [facility] ([facility]) [address] [place] [address] Iron binding capacity.unsaturated [Mass/Vol] 228 ug/dL Normal 110-370 [facility] Comment on above: Performed By: #### 2 4323-8 #### SILVERIO NI ([id number]) [facility] ([facility]) [address] [place] [address] Iron saturation [Mass fraction] 19 % Low 25-45 [facility] Comment on above: Performed By: #### 2 4323-8 #### SILVERIO NI ([id number]) [facility] ([facility]) [address] [place] [address] Anion gap in Serum or Plasma Ordered By: Mayco Fenton on 09-09-2024 Anion gap [Moles/Vol] 13 mmol/L 07-01 [facility] BUN/creatinine ratioOrdered By: Mayco Fenton on 09-09-2024 Urea nitrogen/Creatinine [Mass ratio] 12.4 mg/mg 12-06 [facility] Basic Metabolic Profile (BMP )on 09-09-2024 BUN/CRE 12.4 RATIO Normal 12-06 [facility] Comment on above: Performed By: #### L 501.9985, L500.4100, L501.9910, L502.0250, L500.2500 #### [facility] [address] [place], [address] Calcium [Mass/Vol] 9.5 mg/dL Normal 7.6-11.0 [facility] Comment on above: Performed By: #### L 501.9985, L500.4100, L501.9910, L502.0250, L500.2500 #### [facility] [address] [place], [address] Chloride [Moles/Vol] 103 mmol/L Normal 98-108 [facility] Comment on above: Performed By: #### L 501.9985, L500.4100, L501.9910, L502.0250, L500.2500 #### [facility] [address] [place], [address] CO2 [Moles/Vol] 23.5 mmol/L Normal 21.0-32.0 [facility] Comment on above: Performed By: #### L 501.9985, L500.4100, L501.9910, L502.0250, L500.2500 #### [facility] [address] [place], [address] Creatinine [Mass/Vol] 1.19 mg/dL Normal 0.70-1.20 [facility] Comment on above: Performed By: #### L 501.9985, L500.4100, L501.9910, L502.0250, L500.2500 #### [facility] [address] [place], [address] GAP 13 Normal 5-15 [facility] Comment on above: Performed By: #### L 501.9985, L500.4100, L501.9910, L502.0250, L500.2500 #### [facility] [address] [place], [address] GFR/1.73 sq M.predicted among non-blacks MDRD (S/P/Bld) [Vol rate/Area] 69 mL/min/{1.73_m2} Normal >60 [facility] Comment on above: Result Comment: mL/m in/1.73m2 CKD-EPI Creatinine Equation (2020) Performed By: #### L 501.9985, L500.4100, L501.9910, L502.0250, L500.2500 #### [facility] [address] [place], [address] Glucose [Mass/Vol] 77 mg/dL Normal 70-99 [facility] Comment on above: Performed By: #### L 501.9985, L500.4100, L501.9910, L502.0250, L500.2500 #### [facility] [address] [place], [address] Potassium [Moles/Vol] 4.3 mmol/L Normal 3.3-5.1 [facility] Comment on above: Performed By: #### L 501.9985, L500.4100, L501.9910, L502.0250, L500.2500 #### [facility] [address] [place], [address] Sodium [Moles/Vol] 139 mmol/L Normal 133-145 [facility] Comment on above: Performed By: #### L 501.9985, L500.4100, L501.9910, L502.0250, L500.2500 #### [facility] [address] [place], [address] Urea nitrogen [Mass/Vol] 15 mg/dL Normal 4-19 [facility] Comment on above: Performed By: #### L 501.9985, L500.4100, L501.9910, L502.0250, L500.2500 #### [facility] [address] [place], [address] Calculated very low density lipoprotein (VLDL) cholesterol measurementOrdered By: Mayco Fenton on 09-09-2024 Calculated very low density lipoprotein (VLDL) cholesterol measurement 15 mg/dL 5-40 [facility] Carbon dioxide, total [Moles /volume] in Central venous bloodOrdered By: Mayco Fenton on 09-09-2024 CO2 [Moles/Vol] 23.5 mmol/L 21.0-32.0 [facility] Chloride assayOrdered By: Janay Fenton on 09-09-2024 Chloride [Moles/Vol] 103 mmol/L 98-108 [facility] Glomerular filtration rate ( GFR) estimation/1.73 sq m using serum, plasma, or whole bOrdered By: Mayco Fenton on 09-09-2024 GFR/1.73 sq M.predicted among non-blacks MDRD (S/P/Bld) [Vol rate/Area] 69 mL/min/{1.73_m2} >60 [facility] Comment on above: mL/min/1.73m2 CKD-EP I Creatinine Equation (2020) Hemoglobin A1con 09-09-2024 HbA1c (Bld) [Mass fraction] 6.7 % High <=5.6 [facility] Comment on above: Result Comment: Norm al < 5.7 % Prediabetic 5.7 - 6.4 % Diabetic >or= 6.5 % Please note range changes. Performed By: #### L 501.9985, L500.4100, L501.9910, L502.0250, L500.2500 #### [facility] [address] [place] [address], [address] Hemoglobin A1c percentageOrd ered By: Mayco Fenton on 09-09-2024 HbA1c (Bld) [Mass fraction] 6.7 % High <5.7 [facility] Comment on above: Normal < 5.7 % Predi abetic 5.7 - 6.4 % Diabetic >or= 6.5 % Please note range changes. LDL calc ser/plasOrdered By: Mayco Fenton on 09-09-2024 Cholesterol in LDL [Mass/Vol] 54 mg/dL [facility] Comment on above: Irhnvvulbg=226-918 m g/dL & Higher Jlbl=520 mg/dL or greater Lipid Profileon 09-09-2024 CHOL:HDL 2.17 Normal [facility] Comment on above: Performed By: #### L 501.9985, L500.4100, L501.9910, L502.0250, L500.2500 #### [facility] [address] [place], [address] Cholesterol [Mass/Vol] 127 mg/dL Normal <=200 [facility] Comment on above: Result Comment: Chol esterol level, Desirable <200 mg/dL Borderline high cholesterol 200-239 mg/dL High cholesterol >=240 mg/dL Recommendations of the NCEP Adult Treatment Panel for the following risk-cutoff thresholds for the [place] population. Performed By: #### L 501.9985, L500.4100, L501.9910, L502.0250, L500.2500 #### [facility] [address] [place], [address] Cholesterol in HDL [Mass/Vol] 59 mg/dL Normal [facility] Comment on above: Result Comment: Verónica onal Cholesterol Education Program (NCEP) guidelines: <40 mg/dL: Low HDL-cholesterol (major risk factor for CHD) >= 60 mg/dL: High HDL-cholesterol (negative risk factor for CHD) HDL-cholesterol is affected by a number of factors, e.g. smoking, exercise, hormones, sex and age. Performed By: #### L 501.9985, L500.4100, L501.9910, L502.0250, L500.2500 #### [facility] [address] [place], [address] Cholesterol in LDL [Mass/Vol] 54 mg/dL Normal [facility] Comment on above: Result Comment: Bord ftiktz=907-313 mg/dL Higher Rbyt=018 mg/dL or greater Performed By: #### L 501.9985, L500.4100, L501.9910, L502.0250, L500.2500 #### [facility] [address] [place], [address] Cholesterol in VLDL [Mass/Vol] 15 mg/dL Normal 5-40 [facility] Comment on above: Performed By: #### L 501.9985, L500.4100, L501.9910, L502.0250, L500.2500 #### [facility] [address] [place], [place], [id number] Triglyceride [Mass/Vol] 73 mg/dL Normal [facility] Comment on above: Result Comment: The drugs N-Acetylcysteine and Metamizole may falsely depress this assay. Normal range: <150 mg/dL Borderline High: 150-199 mg/dL High: 200-499 mg/dL Very High: >500 mg/dL Performed By: #### L 501.9985, L500.4100, L501.9910, L502.0250, L500.2500 #### [facility] [address] [place], [place], [id number] Microalb:Creat Ratio,Random URon 09-09-2024 Creatinine [Mass/Vol] 207.00 mg/dL Normal 39.00-259.00 [facility] Comment on above: Performed By: #### L 501.9985, L500.4100, L501.9910, L502.0250, L500.2500 #### [facility] [address] [place], [place], [id number] MALB:CREAT 17.7 mg/g CRE Normal <30 mg/g CRE [facility] Comment on above: Performed By: #### L 501.9985, L500.4100, L501.9910, L502.0250, L500.2500 #### [facility] [address] [place], [place], [id number] (865) MICROALBUMIN,UR 36.7 mg/L Normal <20 mg/L [facility] Comment on above: Performed By: #### L 501.9985, L500.4100, L501.9910, L502.0250, L500.2500 #### [facility] [address] [place], [address] PSA,Total - Annual Screenon 09-09-2024 PSA,TOT SCREEN 7.26 ng/mL High 0.02-4.00 [facility] Comment on above: Result Comment: This test [...] confirm baseline values. Performed By: #### L 501.9985, L500.4100, L501.9910, L502.0250, L500.2500 #### [facility] [address] [facility] [place], [address] Potassium measurement (mass/ volume)Ordered By: Mayco Fenton on 09-09-2024 Potassium (Unsp spec) [Mass/Vol] 4.3 mmol/L 3.3-5.1 [facility] Random urine creatinine anna urement (mass/volume)Ordered By: Mayco Fenton on 09-09-2024 Creatinine Unsp time (U) [Mass/Vol] 207.00 mg/dL 39.00-259.00 [facility] [facility] Screening total cholesterol/ high density lipoprotein (HDL) cholesterol ratioOrdered By: Mayco Fenton on 09-09-2024 Cholesterol.total/Chol esterol in HDL [Mass ratio] 2.17 {ratio} [facility] Serum creatinine measurement (mass/volume)Ordered By: Mayco Fenton on 09-09-2024 Creatinine [Mass/Vol] 1.19 mg/dL 0.70-1.20 [facility] Serum glucose measurement (m ass/volume)Ordered By: Mayco Fenton on 09-09-2024 Glucose [Mass/Vol] 77 mg/dL 70-99 [facility] Serum or plasma calcium anna urement (mass/volume)Ordered By: Mayco Fenton on 09-09-2024 Calcium [Mass/Vol] 9.5 mg/dL 7.6-11.0 [facility] Serum or plasma cholesterol in HDL measurement (mass/volume)Ordered By: Mayco Fenton on 09-09-2024 Cholesterol in HDL [Mass/Vol] 59 mg/dL >40 [facility] Comment on above: National Cholesterol Education Program (NCEP) guidelines:<40 mg/dL: Low HDL-cholesterol (major risk factor for CHD)>= 60 mg/dL: High HDL-cholesterol (negative risk factor for CHD)HDL-cholesterol is affected by a number of factors, e.g. smoking, exercise, hormones, sex and age. Serum or plasma cholesterol measurement (mass/volume)Ordered By: Mayco Fenton on 09-09-2024 Cholesterol [Mass/Vol] 127 mg/dL <201 [facility] Comment on above: Cholesterol level, D esirable <200 mg/dLBorderline high cholesterol 200-239 mg/dLHigh cholesterol >=240 mg/dLRecommendations of the NCEP Adult Treatment Panel for the following risk-cutoff thresholds for the [place] population. Serum or plasma urea nitroge n measurement (mass/volume)Ordered By: Mayco Fenton on 09-09-2024 Urea nitrogen [Mass/Vol] 15 mg/dL 4-19 [facility] Sodium levelOrdered By: Mayco Fenton on 09-09-2024 Sodium [Moles/Vol] 139 mmol/L 133-145 [facility] Triglycerides measurementOrd ered By: Mayco Fenton on 09-09-2024 Triglyceride [Mass/Vol] 73 mg/dL <199 [facility] Comment on above: The drugs N-Acetylcy steine and Metamizole may falsely depress this assay. Normal range: <150 mg/dLBorderline High: 150-199 mg/dLHigh: 200-499 mg/dLVery High: >500 mg/dL Urine albumin measurement 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 Allergies No Known Allergies Allergy (Unverified 06/22/24 16:52) Office Procedures [facility] Billing Sheet Testing Breath Alcohol Test Pre-Employment: Yes Pre-Employment Drug Screen: Yes Pre-Employment PE: Yes 06/30/24 1720 Date Ariel Yanezignabena Signature: Date (if applicable) CC: Normal [facility] Urgent Care Visit Reporton 0 06-22-2024 Urgent Care Visit Report [facility] [address], [address] [place] [address] OFFICE VISIT Date of Service: 06/22/24 MR#: [id number] Acct: [id number] Name: JEFFERSON CARCAMO Rep #: [id number] : 1960 Provider: JANAY Christine Age/Sex: 63/M Location[place] [facility] Status: Signed Intake Intake Visit Reasons: PE NON DOT PHYSICAL/ 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 [facility] Medical History (Updated 06/22/24 @ 16:55 by [...] Robert Signature: Date (if applicable) CC: Normal [facility] ALBUMIN, RANDOM URINE W/CREA Maribell 04-14-2024 ALBUMIN, URINE 1.4 mg/dL Normal See Note: [facility] Comment on above: Result Comment: Refe rochelle Range: Reference Range Not established Performed By: #### 9 2665, 927, 622, 77386, 7600, 6517, 905, 6399 #### [facility] [address], [address] [place] [address] Diagnostic Cardiac Sonographer: Aquiles Patel MD ALBUMIN/CREATININE RATIO, RANDOM URINE [...] a diagnostic category. Performed By: #### 9 2665, 927, 622, 33114, 7600, 6517, 905, 6399 #### [facility] [place] [address] Diagnostic Cardiac Sonographer: Aquiles Patel MD Creatinine (U) [Mass/Vol] 105 mg/dL Normal 20-320 [facility] Comment on above: Performed By: #### 9 2665, 927, 622, 79133, 7600, 6517, 905, 6399 #### [facility] [place] [address] Diagnostic Cardiac Sonographer: Aquiles Patel MD CBC (INCLUDES DIFF/PLT)on Basophils (Bld) [#/Vol] 0.053 10*3/uL Normal 0-200 [facility] Comment on above: Performed By: #### 9 2665, 927, 622, 06148, 7600, 6517, 905, 6399 #### [facility] [place] [address] Diagnostic Cardiac Sonographer: Aquiles Patel MD Basophils/100 WBC (Bld) 0.5 % Normal [facility] Comment on above: Performed By: #### 9 2665, 927, 622, 45932, 7600, 6517, 905, 6399 #### [facility] [place] [address] Diagnostic Cardiac Sonographer: Aquiles Patel MD Eosinophils (Bld) [#/Vol] 0.242 10*3/uL Normal 15-500 [facility] Comment on above: Performed By: #### 9 2665, 927, 622, 81335, 7600, 6517, 905, 6399 #### [facility] of [address], [address] [place] [address] Diagnostic Cardiac Sonographer: Aquiles Patel MD Eosinophils/100 WBC (Bld) 2.3 % Normal [facility] Comment on above: Performed By: #### 9 2665, 927, 622, 34393, 7600, 6517, 905, 6399 #### [facility] of [address], [address] [place] [address] Diagnostic Cardiac Sonographer: Aquiles Patel MD Erythrocyte distribution width (RBC) [Ratio] 13.0 % Normal 11.0-15.0 [facility] Comment on above: Performed By: #### 9 2665, 927, 622, 15800, 7600, 6517, 905, 6399 #### [facility] of [address], [address] [place] [address] Diagnostic Cardiac Sonographer: Aquiles Patel MD Hematocrit (Bld) [Volume fraction] 40.0 % Normal 38.5-50.0 [facility] Comment on above: Performed By: #### 9 2665, 927, 622, 17899, 7600, 6517, 905, 6399 #### [facility] of [place] [address] Diagnostic Cardiac Sonographer: Aquiles Patel MD Hemoglobin (Bld) [Mass/Vol] 13.9 g/dL Normal 13.2-17.1 [facility] Comment on above: Performed By: #### 9 2665, 927, 622, 26627, 7600, 6517, 905, 6399 #### [facility] of [address], [address] [place] [address] Diagnostic Cardiac Sonographer: Aquiles Patel MD Lymphocytes (Bld) [#/Vol] 4.263 10*3/uL High 850-3900 [facility] Comment on above: Performed By: #### 9 2665, 927, 622, 91911, 7600, 6517, 905, 6399 #### [facility] of [place] [address] Diagnostic Cardiac Sonographer: Aquiles Patel MD Lymphocytes/100 WBC (Bld) 40.6 % Normal [facility] Comment on above: Performed By: #### 9 2665, 927, 622, 74029, 7600, 6517, 905, 6399 #### [facility] [place] [address] Diagnostic Cardiac Sonographer: Aquiles Patel MD MCH (RBC) [Entitic mass] 31.7 pg Normal 27.0-33.0 [facility] Comment on above: Performed By: #### 9 2665, 927, 622, 85344, 7600, 6517, 905, 6399 #### [facility] [place] [address] Diagnostic Cardiac Sonographer: Aquiles Patel MD MCHC (RBC) [Mass/Vol] 34.8 g/dL Normal 32.0-36.[address] [facility] Comment on above: Result Comment: For adults, a slight decrease in the calculated MCHC value (in the range of 30 to 32 g/dL) is most likely not clinically significant; however, it should be interpreted with caution in correlation with other red cell parameters and the patient's clinical condition. Performed By: #### 9 6915, 927, 622, 64724, 7600, 6517, 905, 6399 #### [facility] [place] [address] Diagnostic Cardiac Sonographer: Aquiles Patel MD MCV (RBC) [Entitic vol] 91.3 fL Normal 80.0-100.0 [facility] Comment on above: Performed By: #### 9 2665, 927, 622, 45406, 7600, 6517, 905, 6399 #### [facility] [place] [address] Diagnostic Cardiac Sonographer: Aquiles Patel MD Monocytes (Bld) [#/Vol] 0.872 10*3/uL Normal 200-950 [facility] Comment on above: Performed By: #### 9 2665, 927, 622, 09095, 7600, 6517, 905, 6399 #### [facility] of [address], [address] [place] [address] Diagnostic Cardiac Sonographer: Aquiles Patel MD Monocytes/100 WBC (Bld) 8.3 % Normal [facility] Comment on above: Performed By: #### 9 2665, 927, 622, 24797, 7600, 6517, 905, 6399 #### [facility] of [address], [address] [place] [address] Diagnostic Cardiac Sonographer: Aquiles Patel MD Neutrophils (Bld) [#/Vol] 5.072 10*3/uL Normal 8350-8170 [facility] Comment on above: Performed By: #### 9 2665, 927, 622, 71790, 7600, 6517, 905, 6399 #### [facility] of [address], [address] [place] [address] Diagnostic Cardiac Sonographer: Aquiles Patel MD Neutrophils/100 WBC (Bld) 48.3 % Normal [facility] Comment on above: Performed By: #### 9 2665, 927, 622, 78831, 7600, 6517, 905, 6399 #### [facility] of [place] [address] Diagnostic Cardiac Sonographer: Aquiles Patel MD Platelet mean volume (Bld) [Entitic vol] 10.5 fL Normal 7.5-12.5 [facility] Comment on above: Performed By: #### 9 2665, 927, 622, 59497, 7600, 6517, 905, 6399 #### [facility] of [address], [address] [place] [address] Diagnostic Cardiac Sonographer: Aquiles Patel MD Platelets (Bld) [#/Vol] 299 10*3/uL Normal 140-400 [facility] Comment on above: Performed By: #### 9 2665, 927, 622, 97561, 7600, 6517, 905, 6399 #### [facility] of [address], [address] [place] [address] Diagnostic Cardiac Sonographer: Aquiles Patel MD RBC (Bld) [#/Vol] 4.38 10*6/uL Normal 4.20-5.80 [facility] Comment on above: Performed By: #### 9 2665, 927, 622, 21966, 7600, 6517, 905, 6399 #### [facility] of [place] [address] Diagnostic Cardiac Sonographer: Aquiles Patel MD WBC (Bld) [#/Vol] 10.5 10*3/uL Normal 3.8-10.8 [facility] Comment on above: Performed By: #### 9 2665, 927, 622, 01549, 7600, 6517, 905, 6399 #### [facility] [place] [address] Diagnostic Cardiac Sonographer: Aquiles Patel MD COMPREHENSIVE METABOLIC PANE L W/ANION GAPon 04-14-2024 Albumin [Mass/Vol] 4.3 g/dL Normal 3.6-5.1 [facility] Comment on above: Performed By: #### 9 2665, 927, 622, 55673, 7600, 6517, 905, 6399 #### [facility] [place] [address] Diagnostic Cardiac Sonographer: Aquiles Patel MD ALP [Catalytic activity/Vol] 84 U/L Normal 35-144 [facility] Comment on above: Performed By: #### 9 2665, 927, 622, 97970, 7600, 6517, 905, 6399 #### [facility] [place] [address] Diagnostic Cardiac Sonographer: Aquiles Patel MD ALT [Catalytic activity/Vol] 14 U/L Normal 9-46 [facility] Comment on above: Performed By: #### 9 2665, 927, 622, 02010, 7600, 6517, 905, 6399 #### [facility] [place] [address] Diagnostic Cardiac Sonographer: Aquiles Patel MD AST [Catalytic activity/Vol] 15 U/L Normal 10-35 [facility] Comment on above: Performed By: #### 9 2665, 927, 622, 08511, 7600, 6517, 905, 6399 #### [facility] of [place] [address] Diagnostic Cardiac Sonographer: Aquiles Patel MD Bilirubin [Mass/Vol] 0.5 mg/dL Normal 0.2-1.2 [facility] Comment on above: Performed By: #### 9 2665, 927, 622, 96383, 7600, 6517, 905, 6399 #### [facility] [place] [address] Diagnostic Cardiac Sonographer: Aquiles Patel MD Calcium [Mass/Vol] 9.3 mg/dL Normal 8.6-10.3 [facility] Comment on above: Performed By: #### 9 2665, 927, 622, 06912, 7600, 6517, 905, 6399 #### [facility] [place] [address] Diagnostic Cardiac Sonographer: Aquiles Patel MD Chloride [Moles/Vol] 102 mmol/L Normal 98-110 [facility] Comment on above: Performed By: #### 9 2665, 927, 622, 48631, 7600, 6517, 905, 6399 #### [facility] [place] [address] Diagnostic Cardiac Sonographer: Aquiles Patel MD CO2 [Moles/Vol] 28 mmol/L Normal 20-32 [facility] Comment on above: Performed By: #### 9 2665, 927, 622, 78267, 7600, 6517, 905, 6399 #### [facility] of [place] [address] Diagnostic Cardiac Sonographer: Aquiles Patel MD Creatinine [Mass/Vol] 1.03 mg/dL Normal 0.70-1.35 [facility] Comment on above: Performed By: #### 9 2665, 927, 622, 14293, 7600, 6517, 905, 6399 #### [facility] [place] [address] Diagnostic Cardiac Sonographer: Aquiles Patel MD ELECTROLYTE BALANCE 9 mmol/L (calc) Normal 7-17 [facility] Comment on above: Performed By: #### 9 2665, 927, 622, 31928, 7600, 6517, 905, 6399 #### [facility] [place] [address] Diagnostic Cardiac Sonographer: Aquiles Patel MD GFR/1.73 sq M.predicted among non-blacks MDRD (S/P/Bld) [Vol rate/Area] 83 mL/min/{1.73_m2} Normal > OR = 60 [facility] Comment on above: Performed By: #### 9 2665, 927, 622, 13299, 7600, 6517, 905, 6399 #### [facility] [place] [address] Diagnostic Cardiac Sonographer: Aquiles Patel MD Glucose [Mass/Vol] 135 mg/dL High 65- [facility] Comment on above: Result Comment: Fasting reference interval For someone without known diabetes, a glucose value >125 mg/dL indicates that they may have diabetes and this should be confirmed with a follow-up test. Performed By: #### 9 2665, 927, 622, 18329, 7600, 6517, 905, 6399 #### [facility] [place] [address] Diagnostic Cardiac Sonographer: Aquiles Patel MD Potassium [Moles/Vol] 4.2 mmol/L Normal 3.5-5.3 [facility] Comment on above: Performed By: #### 9 2665, 927, 622, 91652, 7600, 6517, 905, 6399 #### [facility] [address], [address] [place] [address] Diagnostic Cardiac Sonographer: Aquiles Patel MD Protein [Mass/Vol] 7.0 g/dL Normal 6.1-8.1 [facility] Comment on above: Performed By: #### 9 2665, 927, 622, 82647, 7600, 6517, 905, 6399 #### [facility] of [address], [address] [place] [address] Diagnostic Cardiac Sonographer: Aquiles Patel MD Sodium [Moles/Vol] 139 mmol/L Normal 135-146 [facility] Comment on above: Performed By: #### 9 2665, 927, 622, 55286, 7600, 6517, 905, 6399 #### [facility] [address], [address] [place] [address] Diagnostic Cardiac Sonographer: Aquiles Patel MD Urea nitrogen [Mass/Vol] 14 mg/dL Normal 7-25 [facility] Comment on above: Performed By: #### 9 2665, 927, 622, 93783, 7600, 6517, 905, 6399 #### [facility] [address], [address] [place] [address] Diagnostic Cardiac Sonographer: Aquiles Patel MD HEMOGLOBIN A1c WITH eAGon eAG (mmol/L) 8.7 mmol/L Normal [facility] Comment on above: Performed By: #### 9 2665, 927, 622, 49676, 7600, 6517, 905, 6399 #### [facility] [place] [address] Diagnostic Cardiac Sonographer: Aquiles Patel MD HEMOGLOBIN A1c 7.1 % [...] Performed By: #### 9 2665, 927, 622, 77938, 7600, 6517, 905, 6399 #### [facility] [address], [address] [place] [address] Diagnostic Cardiac Sonographer: Aquiles Patel MD Magnesium [Mass/Vol] 157 mg/dL Normal [facility] Comment on above: Performed By: #### 9 2665, 927, 622, 39128, 7600, 6517, 905, 6399 #### [facility] [address], [address] [place] [address] Diagnostic Cardiac Sonographer: Aquiles Patel MD LIPID PANEL, [facility] 03-21 Cholesterol [Mass/Vol] 111 mg/dL Normal <200 [facility] Comment on above: Performed By: #### 9 2665, 927, 622, 96450, 7600, 6517, 905, 6399 #### [facility] [address], [address] [place] [address] Diagnostic Cardiac Sonographer: Aquiles Patel MD Cholesterol in HDL [Mass/Vol] 51 mg/dL Normal > OR = 40 [facility] Comment on above: Performed By: #### 9 2665, 927, 622, 45932, 7600, 6517, 905, 6399 #### [facility] [address], [address] [place] [address] Diagnostic Cardiac Sonographer: Aquiles Patel MD Cholesterol in LDL [Mass/Vol] [...] equation in the estimation of LDL-C. Mohsen BARRERA et al. CHINEDU. 2013;310(19): 8072-8888 (http://education.[employer].Smarp/faq/SKE715) Performed By: #### 9 2665, 927, 622, 29311, 7600, 6517, 905, 6399 #### [facility] [place] [address] Diagnostic Cardiac Sonographer: Aquiles aPtel MD Cholesterol.total/Chol esterol in HDL [Mass ratio] 2.2 {ratio} Normal <5.0 [facility] Comment on above: Performed By: #### 9 2665, 927, 622, 52902, 7600, 6517, 905, 6399 #### [facility] [address], [address] [place] [address] Diagnostic Cardiac Sonographer: Aquiles Paetl MD NON HDL CHOLESTEROL 60 mg/dL (calc) Normal <130 [facility] Comment on above: Result Comment: For patients with diabetes plus 1 major ASCVD risk factor, treating to a non-HDL-C goal of <100 mg/dL (LDL-C of <70 mg/dL) is considered a therapeutic option. Performed By: #### 9 1495, 927, 622, 85504, 7600, 6517, 905, 6399 #### [facility] [place] [address] Diagnostic Cardiac Sonographer: Aquiles Patel MD Triglyceride [Mass/Vol] 79 mg/dL Normal <150 [facility] Comment on above: Performed By: #### 9 7485, 927, 622, 97025, 7600, 6517, 905, 6399 #### [facility] [place] [address] Diagnostic Cardiac Sonographer: Aquiles Patel MD MAGNESIUMon 04-14-2024 Magnesium [Mass/Vol] 2.0 mg/dL Normal 1.5-2.5 [facility] Comment on above: Performed By: #### 9 3815, 927, 622, 54693, 7600, 6517, 905, 6399 #### [facility] [place] [address] Diagnostic Cardiac Sonographer: Aquiles Patel MD URIC ACIDon 04-14-2024 Urate [Mass/Vol] 3.9 mg/dL Low 4.0-8.0 [facility] Comment on above: Result Comment: Ther apeutic target for gout patients: <6.0 mg/dL Performed By: #### 9 2665, 927, 622, 32693, 7600, 6517, 905, 6399 #### [facility] [address] [place] [address], [address] [place] [address] Diagnostic Cardiac Sonographer: Aquiles Patel MD VITAMIN B12on 04-14-2024 Cobalamin (Vitamin B12) [Mass/Vol] 696 pg/mL Normal 200-1100 [facility] Comment on above: Performed By: #### 9 2665, 927, 622, 00974, 7600, 6517, 905, 6399 #### [facility] [address] [place] [address], [address] [place] [address] Diagnostic Cardiac Sonographer: Aquiles Patel MD CBC W Auto Differential pane l (Bld)on 02-07-2024 Basophils (Bld) [#/Vol] 0.03 10*3/uL [facility] Basophils/100 WBC (Bld) 0.3 % 0.0 - 2.0 % [facility] Eosinophils (Bld) [#/Vol] 0.02 10*3/uL [facility] Eosinophils/100 WBC (Bld) 0.2 % 0.0 - 6.0 % [facility] Erythrocyte distribution width (RBC) [Ratio] 12.2 % 11.5 - 14.5 % [facility] Hematocrit (Bld) [Volume fraction] 43.9 % 41.0 - 52.0 % [facility] Hemoglobin (Bld) [Mass/Vol] 14.4 g/dL 13.5 - 17.5 g/dL [facility] Immature granulocytes (Bld) [#/Vol] 0.03 10*3/uL [facility] Immature granulocytes/100 WBC (Bld) 0.3 % 0.0 - 0.9 % [facility] Comment on above: Immature Granulocyte Count (IG) includes promyelocytes, myelocytes and metamyelocytes but does not include bands. Percent differential counts (%) should be interpreted in the context of the absolute cell counts (cells/UL). Lymphocytes (Bld) [#/Vol] 2.53 10*3/uL [facility] Lymphocytes/100 WBC (Bld) 24 % 13.0 - 44.0 % [facility] MCH (RBC) [Entitic mass] 29.9 pg 26.0 - 34.0 pg [facility] MCHC (RBC) [Mass/Vol] 32.8 g/dL 32.0 - 36.0 g/dL [facility] MCV (RBC) [Entitic vol] 91 fL 80 - 100 fL [facility] Monocytes (Bld) [#/Vol] 0.79 10*3/uL [facility] Monocytes/100 WBC (Bld) 7.5 % 2.0 - 10.0 % [facility] Neutrophils (Bld) [#/Vol] 7.15 10*3/uL [facility] Comment on above: Percent differential counts (%) should be interpreted in the context of the absolute cell counts (cells/uL). Neutrophils/100 WBC (Bld) 67.7 % 40.0 - 80.0 % [facility] Nucleated RBC/100 WBC (Bld) [Ratio] 0 % [facility] Platelets (Bld) [#/Vol] 360 10*3/uL [facility] RBC (Bld) [#/Vol] 4.81 10*6/uL [facility] WBC (Bld) [#/Vol] 10.6 10*3/uL [facility] Basophils (Bld) [#/Vol] 0.03 x10*3/uL Normal 0.00-0.10 [facility] Comment on above: Performed By: #### 5 7021-8 #### SILVERIO NI ([id number]) [facility]) [address] [place] [address] Basophils/100 WBC (Bld) 0.3 % Normal 0.0-2.0 [facility] Comment on above: Performed By: #### 5 7021-8 #### SILVERIO NI ([id number]) [facility] ([facility]) [id number] [place] [address] Eosinophils (Bld) [#/Vol] 0.02 x10*3/uL Normal 0.00-0.70 [facility] Comment on above: Performed By: #### 5 7021-8 #### SILVERIO NI ([id number]) [facility] ([facility]) [id number] [place] [address] Eosinophils/100 WBC (Bld) 0.2 % Normal 0.0-6.0 [facility] Comment on above: Performed By: #### 5 7021-8 #### SILVERIO NI ([id number]) [facility] ([facility]) [address] [place] [address] Erythrocyte distribution width (RBC) [Ratio] 12.2 % Normal 11.5-14.5 [facility] Comment on above: Performed By: #### 5 7021-8 #### SILVERIO NI ([id number]) [facility]) [address] [place] [address]69[address] Hematocrit (Bld) [Volume fraction] 43.9 % Normal 41.0-52.0 [facility] Comment on above: Performed By: #### 5 7021-8 #### SILVERIO NI ([id number]) [facility] ([facility]) [address] [place] [address] Hemoglobin (Bld) [Mass/Vol] 14.4 g/dL Normal 13.5-17.5 [facility] Comment on above: Performed By: #### 5 7021-8 #### SILVERIO NI ([id number]) [facility]) [address] [place] [address]84[address] Immature granulocytes (Bld) [#/Vol] 0.03 x10*3/uL Normal 0.00-0.70 [facility] Comment on above: Performed By: #### 5 7021-8 #### SILVERIO NI ([id number]) [facility] ([facility]) [address] [place] [address] Immature granulocytes/100 WBC (Bld) 0.3 % Normal 0.0-0.9 [facility] Comment on above: Result Comment: Leesa ture Granulocyte Count (IG) includes promyelocytes, myelocytes and metamyelocytes but does not include bands. Percent differential counts (%) should be interpreted in the context of the absolute cell counts (cells/UL). Performed By: #### 5 7021-8 #### SILVERIO NI ([id number]) [facility] ([facility]) [id number] [place] [address] Lymphocytes (Bld) [#/Vol] 2.53 x10*3/uL Normal 1.20-4.80 [facility] Comment on above: Performed By: #### 5 7021-8 #### SILVERIO NI ([id number]) [facility] ([facility]) [address] [place] [address] Lymphocytes/100 WBC (Bld) 24.0 % Normal 13.0-44.0 [facility] Comment on above: Performed By: #### 5 7021-8 #### SILVERIO NI ([id number]) [facility] ([facility]) [address] [place] [address] MCH (RBC) [Entitic mass] 29.9 pg Normal 26.0-34.0 [facility] Comment on above: Performed By: #### 5 7021-8 #### SILVERIO NI ([id number]) [facility] ([facility]) [id number] [place] [address] MCHC (RBC) [Mass/Vol] 32.8 g/dL Normal 32.0-36.0 [facility] Comment on above: Performed By: #### 5 7021-8 #### SILVERIO NI ([id number]) [facility] ([facility]) [address] [place] [address] MCV (RBC) [Entitic vol] 91 fL Normal 80-100 [facility] Comment on above: Performed By: #### 5 7021-8 #### SILVERIO NI ([id number]) [facility] ([facility]) [address] [place] [address] Monocytes (Bld) [#/Vol] 0.79 x10*3/uL Normal 0.10-1.00 [facility] Comment on above: Performed By: #### 5 7021-8 #### SILVERIO NI ([id number]) [facility] ([facility]) [address] [place] [address] Monocytes/100 WBC (Bld) 7.5 % Normal 2.0-10.0 [facility] Comment on above: Performed By: #### 5 7021-8 #### SILVERIO NI ([id number]) [facility] ([facility]) [address] [place] [address] Neutrophils (Bld) [#/Vol] 7.15 x10*3/uL Normal 1.20-7.70 [facility] Comment on above: Result Comment: Perc ent differential counts (%) should be interpreted in the context of the absolute cell counts (cells/uL). Performed By: #### 5 7021-8 #### SILVERIO NI ([id number]) [facility] ([facility]) [address] [place] [address] Neutrophils/100 WBC (Bld) 67.7 % Normal 40.0-80.0 [facility] Comment on above: Performed By: #### 5 7021-8 #### SILVERIO NI ([id number]) [facility] ([facility]) [address] [place] [address] Nucleated RBC/100 WBC (Bld) [Ratio] 0.0 /100 WBCs Normal 0.0-0.0 [facility] Comment on above: Performed By: #### 5 7021-8 #### SILVERIO NI ([id number]) [facility] ([facility]) [address] [place] [address] Platelets (Bld) [#/Vol] 360 x10*3/uL Normal 150-450 [facility] Comment on above: Performed By: #### 5 7021-8 #### SILVERIO NI ([id number]) [facility] ([facility]) [address] [place] [address] RBC (Bld) [#/Vol] 4.81 x10*6/uL Normal 4.50-5.90 [facility] Comment on above: Performed By: #### 5 7021-8 #### SILVERIO NI ([id number]) [facility] ([facility]) [address] [place] [address] WBC (Bld) [#/Vol] 10.6 x10*3/uL Normal 4.4-11.3 [facility] Comment on above: Performed By: #### 5 7021-8 #### SILVERIO NI ([id number]) [facility] ([facility]) [address] [place] [address] Comprehensive metabolic 2000 panelon 02-07-2024 Albumin BCP dye [Mass/Vol] 4 g/dL 3.4 - 5.0 g/dL [facility] ALP [Catalytic activity/Vol] 84 U/L 33 - 136 U/L [facility] ALT With P-5'-P [Catalytic activity/Vol] 17 U/L 10 - 52 U/L [facility] Comment on above: Patients treated wit h Sulfasalazine may generate falsely decreased results for ALT. Anion gap [Moles/Vol] 13 mmol/L 10 - 2 0 mmol/L [facility] AST With P-5'-P [Catalytic activity/Vol] 17 U/L 9 - 39 U/L [facility] Bilirubin [Mass/Vol] 0.5 mg/dL 0.0 - 1 .2 mg/dL [facility] Calcium [Mass/Vol] 9.7 mg/dL 8.6 - 10. 3 mg/dL [facility] Chloride [Moles/Vol] 100 mmol/L 98 - 10 7 mmol/L [facility] CO2 [Moles/Vol] 29 mmol/L 21 - 32 mmol/L [facility] Creatinine [Mass/Vol] 1.1 mg/dL 0.50 - 1.30 mg/dL [facility] GFR/1.73 sq M.predicted among non-blacks MDRD (S/P/Bld) [Vol rate/Area] 76 mL/min/{1.73_m2} - PINF [facility] Comment on above: Calculations of fara mated GFR are performed using the 2020 CKD-EPI Study Refit equation without the race variable for the IDMS-Traceable creatinine methods. https://jasn.asnjournals.org/content/early/ASN.96173 68660 Glucose [Mass/Vol] 174 mg/dL High 74 - 99 mg/dL [facility] Potassium [Moles/Vol] 5 mmol/L 3.5 - 5.3 mmol/L [facility] Protein [Mass/Vol] 7 g/dL 6.4 - 8.2 g/dL [facility] Sodium [Moles/Vol] 137 mmol/L 136 - 145 mmol/L [facility] Urea nitrogen [Mass/Vol] 14 mg/dL 6 - 23 mg/dL [facility] Albumin BCP dye [Mass/Vol] 4.0 g/dL Normal 3.4-5.0 [facility] Comment on above: Performed By: #### 2 4323-8 #### SILVERIO NI ([id number]) [facility] ([facility]) [address] [place] [address] ALP [Catalytic activity/Vol] 84 U/L Normal 33-136 [facility] Comment on above: Performed By: #### 2 4323-8 #### SILVERIO NI ([id number]) [facility] ([facility]) [address] [place] [address] ALT With P-5'-P [Catalytic activity/Vol] 17 U/L Normal 10-52 [facility] Comment on above: Result Comment: Svetlana ents treated with Sulfasalazine may generate falsely decreased results for ALT. Performed By: #### 2 4323-8 #### SILVERIO NI ([id number]) [facility] ([facility]) [address] [place] [address] Anion gap [Moles/Vol] 13 mmol/L Normal 10-20 [facility] Comment on above: Performed By: #### 2 4323-8 #### SILVERIO NI ([id number]) [facility] ([facility]) [address] [place] [address] AST With P-5'-P [Catalytic activity/Vol] 17 U/L Normal 9-39 [facility] Comment on above: Performed By: #### 2 4323-8 #### SILVERIO NI ([id number]) [facility] ([facility]) [address] [place] [address] Bilirubin [Mass/Vol] 0.5 mg/dL Normal 0.0-1.2 [facility] Comment on above: Performed By: #### 2 4323-8 #### SILVERIO NI ([id number]) [facility] ([facility]) [address] [place] [address] Calcium [Mass/Vol] 9.7 mg/dL Normal 8.6-10.3 [facility] Comment on above: Performed By: #### 2 4323-8 #### SILVERIO NI ([id number]) [facility] ([facility]) [address] [place] [address] Chloride [Moles/Vol] 100 mmol/L Normal 98-107 [facility] Comment on above: Performed By: #### 2 4323-8 #### SILVERIO NI ([id number]) [facility] ([facility]) [address] [place] [address] CO2 [Moles/Vol] 29 mmol/L Normal 21-32 [facility] Comment on above: Performed By: #### 2 4323-8 #### SILVERIO NI ([id number]) [facility] ([facility]) [address] [place] [address] Creatinine [Mass/Vol] 1.10 mg/dL Normal 0.50-1.30 [facility] Comment on above: Performed By: #### 2 4323-8 #### SILVERIO NI ([id number]) [facility] ([facility]) [address] [place] [address] Glomerular filtration rate/1.73 sq M.predicted 76 mL/min/1.73m*2 Normal >60 [facility] Comment on above: Result Comment: Calc ulations of estimated GFR are performed using the 2020 CKD-EPI Study Refit equation without the race variable for the IDMS-Traceable creatinine methods. https://jasn.asnjournals.org/content/early//ASN.15742 30913 Performed By: #### 2 4323-8 #### SILVERIO NI ([id number]) [facility] ([facility]) [address] [place] [address] Glucose [Mass/Vol] 174 mg/dL High 74-99 [facility] Comment on above: Performed By: #### 2 4323-8 #### SILVERIO NI ([id number]) [facility] ([facility]) [address] [place] [address] Potassium [Moles/Vol] 5.0 mmol/L Normal 3.5-5.3 [facility] Comment on above: Performed By: #### 2 4323-8 #### SILVERIO NI ([id number]) [facility] ([facility]) [address] [place] [address] Protein [Mass/Vol] 7.0 g/dL Normal 6.4-8.2 [facility] Comment on above: Performed By: #### 2 4323-8 #### SILVERIO NI ([id number]) [facility] ([facility]) [address] [place] [address] Sodium [Moles/Vol] 137 mmol/L Normal 136-145 [facility] Comment on above: Performed By: #### 2 4323-8 #### SILVERIO NI ([id number]) [facility] ([facility]) [address] [place] [address] Urea nitrogen [Mass/Vol] 14 mg/dL Normal 6-23 [facility] Comment on above: Performed By: #### 2 4323-8 #### SILVERIO NI ([id number]) [facility] ([facility]) [address] [place] [address] ECG 12-LEADon 02-07-2024 ECG 12-LEAD Ventricular Rate 80 Atrial Rate 80 P-R Interval 178 QRS Duration 78 Q-T Interval 378 QTC Calculation(Bazett) 435 P Dry Prong 50 R Dry Prong 49 T Dry Prong 69 QRS Count 13 Q Onset 221 P Onset 132 P Offset 174 T Offset 410 QTC Fredericia 416 Diagnosis Normal sinus rhythm Normal ECG When compared with ECG of 29-AUG-2008 14:32, T wave inversion no longer evident in Inferior leads Confirmed by Tari Baig ([id number]) on 02/15/2024 2:01:13 PM Normal [facility] Influenza virus A and B and SARS-CoV-2 (COVID-19) identified TICO+probe Nom (Resp)on 02-07-2024 FLUAV RNA TICO+probe Ql (Resp) Not detected Not Detected [facility] FLUBV RNA TICO+probe Ql (Resp) Not detected Not Detected [facility] Interpretation and review of laboratory results Normal [facility] SARS-CoV-2 (COVID-19) RNA TICO+probe Ql (Resp) Not detected Not Detected [facility] This assay has received FDA Emergency Use [...] and has been validated for use at [facility]. Negative results do not preclude COVID-19 infections or Influenza A/B infections, and should not be used as the sole basis for diagnosis, treatment, or other management decisions. If Influenza A/B and RSV PCR results are negative, testing for Parainfluenza virus, Adenovirus and Metapneumovirus is routinely performed for [facility] pediatric oncology and intensive care inpatients, and is available on other patients by placing an add-on request. [facility] FLUAV RNA TICO+probe Ql (Resp) Not detected Normal Not Detected [facility] Comment on above: Order Comment: This [...] and has been validated for use at [facility]. Negative results do not preclude COVID-19 infections or Influenza A/B infections, and should not be used as the sole basis for diagnosis, treatment, or other management decisions. If Influenza A/B and RSV PCR results are negative, testing for Parainfluenza virus, Adenovirus and Metapneumovirus is routinely performed for [facility] pediatric oncology and intensive care inpatients, and is available on other patients by placing an add-on request. Performed By: #### 9 5423-0 #### SILVERIO NI ([id number]) [facility] ([facility]) [address] [place] [address] FLUBV RNA TICO+probe Ql (Resp) Not detected Normal Not Detected [facility] Comment on above: Order Comment: This [...] and has been validated for use at [facility]. Negative results do not preclude COVID-19 infections or Influenza A/B infections, and should not be used as the sole basis for diagnosis, treatment, or other management decisions. If Influenza A/B and RSV PCR results are negative, testing for Parainfluenza virus, Adenovirus and Metapneumovirus is routinely performed for [facility] pediatric oncology and intensive care inpatients, and is available on other patients by placing an add-on request. Performed By: #### 9 5423-0 #### SILVERIO NI ([id number]) [facility] ([facility]) [address] [place] [address] SARS-CoV-2 (COVID-19) RNA TICO+probe Ql (Resp) Not detected Normal Not Detected [facility] Comment on above: Order Comment: This [...] and has been validated for use at [facility]. Negative results do not preclude COVID-19 infections or Influenza A/B infections, and should not be used as the sole basis for diagnosis, treatment, or other management decisions. If Influenza A/B and RSV PCR results are negative, testing for Parainfluenza virus, Adenovirus and Metapneumovirus is routinely performed for [facility] pediatric oncology and intensive care inpatients, and is available on other patients by placing an add-on request. Performed By: #### 9 5423-0 #### SILVERIO NI ([id number]) [facility] ([facility]) [address] [place] [address] Magnesiumon 02-07-2024 Magnesium [Mass/Vol] 1.51 mg/dL Low 1.60 - 2.40 mg/dL [facility] Magnesium [Mass/Vol] 1.51 mg/dL Low 1.60-2.40 [facility] Comment on above: Performed By: #### 1 9123-9 #### SILVERIO NI ([id number]) [facility] ([facility]) [address] [place] [address] No Panel Informationon 02-06 Extra Tube Hold for add-ons. [facility] Comment on above: Auto resulted. [facility] Interpretation and review of laboratory results Abnormal [facility] RSV PCROrdered By: Lupis coleman on 02-07-2024 RSV RNA TICO+probe Ql (Resp) Not detected Not Detected [facility] RSV RNA TICO+probe Ql (Resp)O rdered By: Lupis Mari on 02-07-2024 Interpretation and review of laboratory results Normal [facility] This assay is an FDA-cleared, in vitro diagnostic nucleic acid amplification test for the detection of RSV from nasopharyngeal specimens, and has been validated for use at [facility]. Negative results do not preclude RSV infections, and should not be used as the sole basis for diagnosis, treatment, or other management decisions. If Influenza A/B and RSV PCR results are negative, testing for Parainfluenza virus, Adenovirus and Metapneumovirus is routinely performed for pediatric oncology and intensive care inpatients at [facility], and is available on other patients by placing an add-on request. [facility] Respiratory syncytial virus RNAon 02-07-2024 RSV RNA TICO+probe Ql (Resp) Not detected Normal Not Detected [facility] Comment on above: Order Comment: This assay is an FDA-cleared, in vitro diagnostic nucleic acid amplification test for the detection of RSV from nasopharyngeal specimens, and has been validated for use at [facility]. Negative results do not preclude RSV infections, and should not be used as the sole basis for diagnosis, treatment, or other management decisions. If Influenza A/B and RSV PCR results are negative, testing for Parainfluenza virus, Adenovirus and Metapneumovirus is routinely performed for pediatric oncology and intensive care inpatients at [facility], and is available on other patients by placing an add-on request. Performed By: #### 9 2131-2 #### SILVERIO NI ([id number]) [facility] ([facility]) [address] [place] [address] Tropinin I.cardiac panel Hig h sensitivity methodon 02-07-2024 Interpretation and review of laboratory results Normal [facility] Less than 99th percentile of normal range [...] performed using a different testing methodology at [facility] than at other [facility]. Direct result comparisons should only be made within the same method. [facility] Troponin I, High Sensitivity on 02-07-2024 Tropinin I.cardiac panel High sensitivity method 4 ng/L 0 - 20 ng/L [facility] Troponin I.cardiac panelon 1 04-09-2023 Tropinin I.cardiac panel High sensitivity method 4 ng/L Normal 0-20 [facility] Comment on above: Order Comment: Less [...] is performed using a differenttesting methodology at [facility] than at [facility]. Direct result comparisons should onlybe made within the same method. Performed By: #### 2 4323-8 #### SILVERIO NI ([id number]) [facility] ([facility]) [address] [place] [address] XR CHEST 1 VIEWon 02-07-2024 XR CHEST 1 VIEW STUDY: Chest Radiograph; 02/07/2024 2:19 PM INDICATION: Evaluate for pneumonia. COMPARISON: CT of the abdomen and pelvis 10/27/2023. ACCESSION NUMBER(S): [id number] ORDERING CLINICIAN: MAYCO WOODS TECHNIQUE: Frontal chest [...] appears clear. Signed by Norma Grimm DO [facility] XR Chest Single viewon 02-06 1.Normal heart [...] the abdomen and pelvis 10/27/2023. ACCESSION NUMBER(S): [id number] ORDERING CLINICIAN: MAYCO WOODS TECHNIQUE: Frontal chest [...] the abdomen and pelvis 10/27/2023. ACCESSION NUMBER(S): [id number] ORDERING CLINICIAN: MAYCO WOODS TECHNIQUE: Frontal chest [...] appears clear. Signed by Norma Grimm DO [facility] Work Phone: Radiology Study observation (narrative) [facility] Work Phone: XR Chest Single viewOrdered By: Norma Grimm on 02-07-2024 [facility] Work Phone: US THYROIDon 01-21-2024 US THYROID Interpreted By: Manuel Campbell, STUDY: US THYROID; 01/21/2024 4:14 pm INDICATION: Signs/Symptoms:evaluat e thyroid nodule stability. COMPARISON: 08/02/2023 ACCESSION NUMBER(S): [id number] ORDERING CLINICIAN: GOYO SNIDER TECHNIQUE: Multiple ultrasonographic images of the thyroid gland were obtained. FINDINGS: RIGHT LOBE: 5.7 x 1.8 x 2.3 cm. Right-sided TR 5 midzone nodule measuring 11 x 11 x 8 mm, previously 12 x 9 x 7 mm. LEFT LOBE: 5 x 1.9 x 1.8 cm. TR 1 nodule in the upper pole measuring 8 x 6 x 6 mm, previously 9 x 6 x 5 mm. TR 2 nodule in the upper pole measuring 7 x 5 x 5 mm, previously 7 x 5 x 7 mm. TR 1 nodule in the midzone measuring 11 x 7 x 8 mm, previously 10 x 6 x 8 mm. ISTHMUS: 0.4 cm. Lymph nodes: No lymphadenopathy on the images provided. IMPRESSION: Stable bilateral thyroid nodules. Please note that these statements are based on the recommendations of the [employer] TI-RADS grading system. ACR [...] risk 4.8% TR2 (2 points) not suspicious. No FNA or follow-up.Aggregate cancer risk 1.5% TR1 (0 points) benign - No FNA or follow-up. Aggregate cancer risk 0.3% Signed by: Manuel Campbell 01/22/2024 7:20 PM Dictation workstation: [id number] [facility] XR ABDOMEN 1 VIEWon 11-13-19 XR ABDOMEN 1 VIEW Interpreted By: Martir Mata, STUDY: XR ABDOMEN 1 VIEW; 11/13/2023 4:40 pm INDICATION: Signs/Symptoms:right sided ureterlithiasis. ,N20.0 Calculus of kidney COMPARISON: None. ACCESSION NUMBER(S): [id number] ORDERING CLINICIAN: HERIBERTO DAVALOS FINDINGS: Abdomen, two views No definite radiopaque renal calculi seen. Nonobstructive bowel gas pattern. Limited evaluation of pneumoperitoneum on supine imaging, however no gross evidence of free air is noted. Visualized lungs are clear. Osseous structures demonstrate no acute bony changes. IMPRESSION: 1. No radiopaque renal calculi seen. MACRO: None Signed by: Martir Mata 11/14/2023 7:44 PM Dictation workstation: [id number] [facility] POCT glycosylated hemoglobin (Hb A1C) manually resultedOrdered By: Marina Busch on 10-28-2023 POC HEMOGLOBIN A1c 6.4 % 4.2 - 6.5 % [facility] CBC W Auto Differential pane l (Bld)on 10-27-2023 Basophils (Bld) [#/Vol] 0.06 10*3/uL [facility] Basophils/100 WBC (Bld) 0.4 % 0.0 - 2.0 % [facility] Eosinophils (Bld) [#/Vol] 0.01 10*3/uL [facility] Eosinophils/100 WBC (Bld) 0.1 % 0.0 - 6.0 % [facility] Erythrocyte distribution width (RBC) [Ratio] 13.0 % 11.5 - 14.5 % [facility] Hematocrit (Bld) [Volume fraction] 38.5 % Low 41.0 - 52.0 % [facility] Hemoglobin (Bld) [Mass/Vol] 12.9 g/dL Low 13.5 - 17.5 g/dL [facility] Immature granulocytes (Bld) [#/Vol] 0.06 10*3/uL [facility] Immature granulocytes/100 WBC (Bld) 0.4 % 0.0 - 0.9 % [facility] Comment on above: Immature Granulocyte Count (IG) includes promyelocytes, myelocytes and metamyelocytes but does not include bands. Percent differential counts (%) should be interpreted in the context of the absolute cell counts (cells/UL). Interpretation and review of laboratory results Abnormal [facility] Lymphocytes (Bld) [#/Vol] 1.18 10*3/uL Low [facility] Lymphocytes/100 WBC (Bld) 6.9 % 13.0 - 44.0 % [facility] MCH (RBC) [Entitic mass] 30.6 pg 26.0 - 34.0 pg [facility] MCHC (RBC) [Mass/Vol] 33.5 g/dL 32.0 - 36.0 g/dL [facility] MCV (RBC) [Entitic vol] 91 fL 80 - 100 fL [facility] Monocytes (Bld) [#/Vol] 0.57 10*3/uL [facility] Monocytes/100 WBC (Bld) 3.3 % 2.0 - 10.0 % [facility] Neutrophils (Bld) [#/Vol] 15.25 10*3/uL High [facility] Comment on above: Percent differential counts (%) should be interpreted in the context of the absolute cell counts (cells/uL). Neutrophils/100 WBC (Bld) 88.9 % 40.0 - 80.0 % [facility] Nucleated RBC/100 WBC (Bld) [Ratio] 0.0 % [facility] Platelets (Bld) [#/Vol] 294 10*3/uL [facility] RBC (Bld) [#/Vol] 4.21 10*6/uL [facility] (Bld[facility] [#/Vol] 17.1 10*3/uL High [facility] Basophils (Bld) [#/Vol] 0.06 x10*3/uL Normal 0.00-0.10 [facility] Comment on above: Performed By: #### 5 7021-8 #### SILVERIO NI ([id number]) [facility]) [address] [place] [address] Basophils/100 WBC (Bld) 0.4 % Normal 0.0-2.0 [facility] Comment on above: Performed By: #### 5 7021-8 #### SILVERIO NI ([id number]) [facility] ([facility]) [address] [place] [address] Eosinophils (Bld) [#/Vol] 0.01 x10*3/uL Normal 0.00-0.70 [facility] Comment on above: Performed By: #### 5 7021-8 #### SILVERIO NI ([id number]) [facility] ([facility]) [address] [place] [address] Eosinophils/100 WBC (Bld) 0.1 % Normal 0.0-6.0 [facility] Comment on above: Performed By: #### 5 7021-8 #### SILVERIO NI ([id number]) [facility] ([facility]) [address] [place] [address] Erythrocyte distribution width (RBC) [Ratio] 13.0 % Normal 11.5-14.5 [facility] Comment on above: Performed By: #### 5 7021-8 #### SILVERIO NI ([id number]) [facility] ([facility]) [address] [place] [address] Hematocrit (Bld) [Volume fraction] 38.5 % Low 41.0-52.0 [facility] Comment on above: Performed By: #### 5 7021-8 #### SILVERIO NI ([id number]) [facility] ([facility]) [address] [place] [address] Hemoglobin (Bld) [Mass/Vol] 12.9 g/dL Low 13.5-17.5 [facility] Comment on above: Performed By: #### 5 7021-8 #### SILVERIO NI ([id number]) [facility] ([facility]) [address] [place] [address] Immature granulocytes (Bld) [#/Vol] 0.06 x10*3/uL Normal 0.00-0.70 [facility] Comment on above: Performed By: #### 5 7021-8 #### SILVERIO NI ([id number]) [facility] ([facility]) [address] [place] [address] Immature granulocytes/100 WBC (Bld) 0.4 % Normal 0.0-0.9 [facility] Comment on above: Result Comment: Leesa ture Granulocyte Count (IG) includes promyelocytes, myelocytes and metamyelocytes but does not include bands. Percent differential counts (%) should be interpreted in the context of the absolute cell counts (cells/UL). Performed By: #### 5 7021-8 #### SILVERIO NI ([id number]) [facility] ([facility]) [address] [place] [address] Lymphocytes (Bld) [#/Vol] 1.18 x10*3/uL Low 1.20-4.80 [facility] Comment on above: Performed By: #### 5 7021-8 #### SILVERIO NI ([id number]) [facility] ([facility]) [address] [place] [address] Lymphocytes/100 WBC (Bld) 6.9 % Normal 13.0-44.0 [facility] Comment on above: Performed By: #### 5 7021-8 #### SILVERIO NI ([id number]) [facility] ([facility]) [address] [place] [address] MCH (RBC) [Entitic mass] 30.6 pg Normal 26.0-34.0 [facility] Comment on above: Performed By: #### 5 7021-8 #### SILVERIO NI ([id number]) [facility] ([facility]) [address] [place] [address] MCHC (RBC) [Mass/Vol] 33.5 g/dL Normal 32.0-36.0 [facility] Comment on above: Performed By: #### 5 7021-8 #### SILVERIO NI ([id number]) [facility] ([facility]) [address] [place] [address] MCV (RBC) [Entitic vol] 91 fL Normal 80-100 [facility] Comment on above: Performed By: #### 5 7021-8 #### SILVERIO NI ([id number]) [facility] ([facility]) [address] [place] [address] Monocytes (Bld) [#/Vol] 0.57 x10*3/uL Normal 0.10-1.00 [facility] Comment on above: Performed By: #### 5 7021-8 #### SILVERIO NI ([id number]) [facility] ([facility]) [address] [place] [address] Monocytes/100 WBC (Bld) 3.3 % Normal 2.0-10.0 [facility] Comment on above: Performed By: #### 5 7021-8 #### SILVERIO NI ([id number]) [facility] ([facility]) [address] [place] [address] Neutrophils (Bld) [#/Vol] 15.25 x10*3/uL High 1.20-7.70 [facility] Comment on above: Result Comment: Perc ent differential counts (%) should be interpreted in the context of the absolute cell counts (cells/uL). Performed By: #### 5 7021-8 #### SILVERIO NI ([id number]) [facility] ([facility]) [address] [place] [address] Neutrophils/100 WBC (Bld) 88.9 % Normal 40.0-80.0 [facility] Comment on above: Performed By: #### 5 7021-8 #### SILVERIO NI ([id number]) [facility] ([facility]) [address] [place] [address] Nucleated RBC/100 WBC (Bld) [Ratio] 0.0 /100 WBCs Normal 0.0-0.0 [facility] Comment on above: Performed By: #### 5 7021-8 #### SILVERIO NI ([id number]) [facility] ([facility]) [address] [place] [address] Platelets (Bld) [#/Vol] 294 x10*3/uL Normal 150-450 [facility] Comment on above: Performed By: #### 5 7021-8 #### SILVERIO NI ([id number]) [facility] ([facility]) [address] [place] [address] RBC (Bld) [#/Vol] 4.21 x10*6/uL Low 4.50-5.90 [facility] Comment on above: Performed By: #### 5 7021-8 #### SILVERIO NI ([id number]) [facility] ([facility]) [address] [place] [address] WBC (Bld) [#/Vol] 17.1 x10*3/uL High 4.4-11.3 [facility] Comment on above: Performed By: #### 5 7021-8 #### SILVERIO NI ([id number]) [facility] ([facility]) [address] [place] [address] CT ABDOMEN PELVIS W IV CONTR Deysi 10-27-2023 CT ABDOMEN PELVIS W IV CONTRAST STUDY: CT Abdomen and Pelvis with IV Contrast; 10/27/2023 at 3:20 PM INDICATION: Right-sided abdominal tenderness, nausea and vomiting. COMPARISON: Correlation with XR left hip/pelvis 12/06/19. ACCESSION NUMBER(S): [id number] ORDERING CLINICIAN: THERON RIBERA TECHNIQUE: CT of [...] of fibrothorax. Signed by Carlos Viera MD [facility] CT Abdomen and Pelvis W cont rast [...] with XR left hip/pelvis 12/06/19. ACCESSION NUMBER(S): [id number] ORDERING CLINICIAN: THERON RIBERA TECHNIQUE: CT of [...] with XR left hip/pelvis 12/06/19. ACCESSION NUMBER(S): [id number] ORDERING CLINICIAN: THERON RIBERA TECHNIQUE: CT of [...] of fibrothorax. Signed by Carlos Viera MD [facility] Work Phone: Radiology Study observation (narrative) [facility] Work Phone: CT Abdomen and Pelvis W cont rast IVOrdered By: Carlos Viera on 10-27-2023 [facility] Work Phone: Comprehensive metabolic 2000 panelon 10-27-2023 Albumin BCP dye [Mass/Vol] 4.0 g/dL 3.4 - 5.0 g/dL [facility] ALP [Catalytic activity/Vol] 71 U/L 33 - 136 U/L [facility] ALT With P-5'-P [Catalytic activity/Vol] 13 U/L 10 - 52 U/L [facility] Comment on above: Patients treated wit h Sulfasalazine may generate falsely decreased results for ALT. Anion gap [Moles/Vol] 16 mmol/L 10 - 2 0 mmol/L [facility] AST With P-5'-P [Catalytic activity/Vol] 15 U/L 9 - 39 U/L [facility] Bilirubin [Mass/Vol] 0.5 mg/dL 0.0 - 1 .2 mg/dL [facility] Calcium [Mass/Vol] 8.9 mg/dL 8.6 - 10. 3 mg/dL [facility] Chloride [Moles/Vol] 98 mmol/L 98 - 10 7 mmol/L [facility] CO2 [Moles/Vol] 23 mmol/L 21 - 32 mmol/L [facility] Creatinine [Mass/Vol] 1.69 mg/dL High 0.50 - 1.30 mg/dL [facility] GFR/1.73 sq M.predicted among non-blacks MDRD (S/P/Bld) [Vol rate/Area] 46 mL/min/{1.73_m2} Low - PINF [facility] Comment on above: Calculations of fara mated GFR are performed using the 2020 CKD-EPI Study Refit equation without the race variable for the IDMS-Traceable creatinine methods. https://jasn.asnjournals.org/content//ASN.46428 67911 Glucose [Mass/Vol] 241 mg/dL High 74 - 99 mg/dL [facility] Interpretation and review of laboratory results Abnormal [facility] Potassium [Moles/Vol] 5.1 mmol/L 3.5 - 5.3 mmol/L [facility] Protein [Mass/Vol] 6.9 g/dL 6.4 - 8.2 g/dL [facility] Sodium [Moles/Vol] 132 mmol/L Low 136 - 145 mmol/L [facility] Urea nitrogen [Mass/Vol] 30 mg/dL High 6 - 23 mg/dL [facility] Albumin BCP dye [Mass/Vol] 4.0 g/dL Normal 3.4-5.0 [facility] Comment on above: Performed By: #### 2 4323-8 #### SILVERIO NI ([id number]) [facility] ([facility]) [address] [place] [address] ALP [Catalytic activity/Vol] 71 U/L Normal 33-136 [facility] Comment on above: Performed By: #### 2 4323-8 #### SILVERIO NI ([id number]) [facility] ([facility]) [address] [place] [address] ALT With P-5'-P [Catalytic activity/Vol] 13 U/L Normal 10-52 [facility] Comment on above: Result Comment: Svetlana ents treated with Sulfasalazine may generate falsely decreased results for ALT. Performed By: #### 2 4323-8 #### SILVERIO NI ([id number]) [facility] ([facility]) [address] [place] [address] Anion gap [Moles/Vol] 16 mmol/L Normal 10-20 [facility] Comment on above: Performed By: #### 2 4323-8 #### SILVERIO NI ([id number]) [facility] ([facility]) [address] [place] [address] AST With P-5'-P [Catalytic activity/Vol] 15 U/L Normal 9-39 [facility] Comment on above: Performed By: #### 2 4323-8 #### SILVERIO NI ([id number]) [facility] ([facility]) [address] [place] [address] Bilirubin [Mass/Vol] 0.5 mg/dL Normal 0.0-1.2 [facility] Comment on above: Performed By: #### 2 4323-8 #### SILVERIO NI ([id number]) [facility] ([facility]) [address] [place] [address] Calcium [Mass/Vol] 8.9 mg/dL Normal 8.6-10.3 [facility] Comment on above: Performed By: #### 2 4323-8 #### SILVERIO NI ([id number]) [facility] ([facility]) [address] [place] [address] Chloride [Moles/Vol] 98 mmol/L Normal 98-107 [facility] Comment on above: Performed By: #### 2 4323-8 #### SILVERIO NI ([id number]) [facility] ([facility]) [address] [place] [address] CO2 [Moles/Vol] 23 mmol/L Normal 21-32 [facility] Comment on above: Performed By: #### 2 4323-8 #### SILVERIO NI ([id number]) [facility] ([facility]) [address] [place] [address] Creatinine [Mass/Vol] 1.69 mg/dL High 0.50-1.30 [facility] Comment on above: Performed By: #### 2 4323-8 #### SILVERIO NI ([id number]) [facility] ([facility]) [address] [place] [address] Glomerular filtration rate/1.73 sq M.predicted 46 mL/min/1.73m*2 Low >60 [facility] Comment on above: Result Comment: Calc ulations of estimated GFR are performed using the 2020 CKD-EPI Study Refit equation without the race variable for the IDMS-Traceable creatinine methods. https://jasn.asnjournals.org/content/early/ASN.12401 40480 Performed By: #### 2 4323-8 #### SILVERIO NI ([id number]) [facility] ([facility]) [address] [place] [address] Glucose [Mass/Vol] 241 mg/dL High 74-99 [facility] Comment on above: Performed By: #### 2 4323-8 #### SILVERIO NI ([id number]) [facility] ([facility]) [address] [place] [address] Potassium [Moles/Vol] 5.1 mmol/L Normal 3.5-5.3 [facility] Comment on above: Performed By: #### 2 4323-8 #### SILVERIO NI ([id number]) [facility] ([facility]) [address] [place] [address] Protein [Mass/Vol] 6.9 g/dL Normal 6.4-8.2 [facility] Comment on above: Performed By: #### 2 4323-8 #### SILVERIO NI ([id number]) [facility] ([facility]) [address] [place] [address] Sodium [Moles/Vol] 132 mmol/L Low 136-145 [facility] Comment on above: Performed By: #### 2 4323-8 #### SILVERIO NI ([id number]) [facility] ([facility]) [address] [place] [address] Urea nitrogen [Mass/Vol] 30 mg/dL High 6-23 [facility] Comment on above: Performed By: #### 2 4323-8 #### SILVERIO NI ([id number]) [facility] ([facility]) [address] [place] [address] No Panel Informationon 10-26 Interpretation and review of laboratory results Abnormal [facility] Urinalysis complete panel (U )on 10-27-2023 Appearance (U) Clear Clear [facility] Bilirubin (U) [Mass/Vol] Negative NEGATIVE [facility] Color (U) Light-Yellow Light-Yellow , Yellow, Dark-Yellow [facility] Glucose Auto test strip (U) [Mass/Vol] 300 (3+) Abnormal Normal mg/dL [facility] Ketones (U) [Mass/Vol] 10 (1+) Abnormal NEGAT CARLI mg/dL [facility] Leukocyte esterase Auto test strip Ql (U) Negative NEGATIVE [facility] Nitrite Auto test strip Ql (U) Negative NEGATIVE [facility] pH (U) 5.0 [pH] 5.0, 5.5, 6.0, 6.5, 7.0, 7.5, 8.0 [facility] Protein (U) [Mass/Vol] Negative NEGAT CARLI, 10 (TRACE), 20 (TRACE) mg/dL [facility] RBC (U) [#/Vol] 1.0 (3+) Abnormal NEGATIVE [facility] Specific gravity (U) [Rel density] 1.013 1.005 - 1.035 [facility] Urobilinogen (U) [Mass/Vol] Normal Normal mg/dL [facility] Appearance (U) Clear Normal Clear [facility] Comment on above: Performed By: #### 2 4356-8 #### SILVERIO NI ([id number]) [facility] ([facility]) [address] [place] [address] Bilirubin (U) [Mass/Vol] Negative Normal NEGATIVE [facility] Comment on above: Performed By: #### 2 4356-8 #### SILVERIO NI ([id number]) [facility] ([facility]) [address] [place] [address] Color (U) Light-Yellow Normal Light-Yellow , Yellow, Dark-Yellow [facility] Comment on above: Performed By: #### 2 4356-8 #### SILVERIO NI ([id number]) [facility] ([facility]) [address] [place] [address] Glucose Auto test strip (U) [Mass/Vol] 300 (3+) Abnormal Normal [facility] Comment on above: Performed By: #### 2 4356-8 #### SILVERIO NI ([id number]) [facility] ([facility]) [address] [place] [address] Ketones (U) [Mass/Vol] 10 (1+) Abnormal NEGATIVE [facility] on above: Performed By: #### 2 4356-8 #### SILVERIO NI ([id number]) [facility] ([facility]) [address] [place] [address] Leukocyte esterase Auto test strip Ql (U) Negative Normal NEGATIVE [facility] Comment on above: Performed By: #### 2 4356-8 #### SILVERIO NI ([id number]) [facility] ([facility]) [address] [place] [address] Nitrite Auto test strip Ql (U) Negative Normal NEGATIVE [facility] Comment on above: Performed By: #### 2 4356-8 #### SILVERIO NI ([id number]) [facility] ([facility]) [address] [place] [address] pH (U) 5.0 [pH] Normal 5.0, 5.5, 6.0, 6.5, 7.0, 7.5, 8.0 [facility] Comment on above: Performed By: #### 2 4355-8 #### SILVERIO NI ([id number]) [facility] ([facility]) [address] [place] [address] Protein (U) [Mass/Vol] Negative Normal NEGAT CARLI, 10 (TRACE), 20 (TRACE) [facility] Comment on above: Performed By: #### 2 6-8 #### SILVERIO NI ([id number]) [facility] ([facility]) [address] [place] [address] RBC (U) [#/Vol] 1.0 (3+) Abnormal NEGATIVE [facility] Comment on above: Performed By: #### 2 4356-8 #### SILVERIO NI ([id number]) [facility] ([facility]) [address] [place] [address] Specific gravity (U) [Rel density] 1.013 Normal 1.005-1.035 [facility] Comment on above: Performed By: #### 2 435-8 #### SILVERIO NI ([id number]) [facility] ([facility]) [address] [place] [address] Urobilinogen (U) [Mass/Vol] Normal Normal Normal [facility] Comment on above: Performed By: #### 2 4356-8 #### SILVERIO NI ([id number]) [facility] ([facility]) [address] [place] [address] Urinalysis microscopic panel Auto Ql (U)on 10-27-2023 RBC Auto (Urine sed) [#/Area] >20 Abnormal NONE, 1-2, 3-5 /HPF [facility] WBC Auto (Urine sed) [#/Area] NONE 1-5, NONE /HPF [facility] RBC Auto (Urine sed) [#/Area] >20 Abnormal NONE, 1-2, 3-5 [facility] Comment on above: Performed By: #### 5 3315-8 #### SILVERIO NI ([id number]) [facility] ([facility]) [address] [place] [address] WBC Auto (Urine sed) [#/Area] NONE Normal 1-5, NONE [facility] Comment on above: Performed By: #### 5 3315-8 #### SILVERIO NI ([id number]) [facility] ([facility]) [address] [place] [address] [place] Thyroid glandon 4 1. Right thyroid lob e 1.2 cm hypoechoic solid TI-RADS 5 nodule which is slightly larger from prior and appears to be slightly taller than wide. Please note that these statements are based on the recommendations of the [employer] TI-RADS grading system. ACR [...] Heriberto Toscano 08/04/2023 2:34 PM Dictation workstation: [id number] [facility] Interpreted By: Heriberto Toscano, STUDY: US THYROID; 08/02/2023 2:15 pm INDICATION: Signs/Symptoms:thyroid nodules. COMPARISON: 06/1916. ACCESSION NUMBER(S): [id number] ORDERING CLINICIAN: HERIBERTO DAVALOS TECHNIQUE: Multiple ultrasonographic [...] completely solid (2) Echogenicity: Hypoechoic (2) Shape: [id number]-[id number] (3) Margin: Smooth (0) Echogenic Foci: None [...] hyperechoic hilum and non thickened hypoechoic cortex. [facility] Heriberto Toscano MD - 08/04/2023 Interpreted By: Heriberto Toscano, STUDY: US THYROID; 08/02/2023 2:15 pm INDICATION: Signs/Symptoms:thyroid nodules. COMPARISON: 06/1916. ACCESSION NUMBER(S): [id number] ORDERING CLINICIAN: HERIBERTO DAVALOS TECHNIQUE: Multiple ultrasonographic [...] completely solid (2) Echogenicity: Hypoechoic (2) Shape: [id number]-wsyg-urgy (3) Margin: Smooth (0) Echogenic Foci: None [...] are based on the recommendations of the [employer] TI-RADS grading system. ACR [...] Heriberto Toscano 08/04/2023 2:34 PM Dictation workstation: [id number] [facility] Work Phone: [place] Thyroid glandOrdered By: Heriberto Toscano on 08-04-2023 [facility] Work Phone: [place] Thyroid glandon Radiology Study observation (narrative) [facility] Work Phone: POCT glycosylated hemoglobin (Hb A1C) manually resultedon 07-23-2023 Interpretation and review of laboratory results Abnormal [facility] Work Phone: POC HEMOGLOBIN A1c 6.9 % Abnormal 4.2 - 6.5 % Unive [facility] Work Phone: [facility] Work Phone: Albumin , Urine Randomon Albumin/Creatinine DL <= 20 mg/L (U) [Mass ratio] 10.9 mg/g NINF [facility] Albumin/Creatinine DL <= 20 mg/L (U) [Mass ratio]on 03-06-2023 Albumin DL <= 20 mg/L (U) [Mass/Vol] 21.7 mg/L Not established [facility] Creatinine (U) [Mass/Vol] 198.3 mg/dL 20.0 - 370.0 mg/dL [facility] CBC W Auto Differential pane l (Bld)on 03-06-2023 Basophils (Bld) [#/Vol] 0.09 10*3/uL [facility] Basophils/100 WBC (Bld) 0.5 % 0.0 - 2.0 % [facility] Eosinophils (Bld) [#/Vol] 0.41 10*3/uL [facility] Eosinophils/100 WBC (Bld) 2.5 % 0.0 - 6.0 % [facility] Erythrocyte distribution width (RBC) [Ratio] 12.9 % 11.5 - 14.5 % [facility] Hematocrit (Bld) [Volume fraction] 38.5 % Low 41.0 - 52.0 % [facility] Hemoglobin (Bld) [Mass/Vol] 12.4 g/dL Low 13.5 - 17.5 g/dL [facility] Immature granulocytes (Bld) [#/Vol] 0.06 10*3/uL [facility] Immature granulocytes/100 WBC (Bld) 0.4 % 0.0 - 0.9 % [facility] Comment on above: Immature Granulocyte Count (IG) includes promyelocytes, myelocytes and metamyelocytes but does not include bands. Percent differential counts (%) should be interpreted in the context of the absolute cell counts (cells/UL). Interpretation and review of laboratory results Abnormal [facility] Lymphocytes (Bld) [#/Vol] 4.88 10*3/uL High [facility] Lymphocytes/100 WBC (Bld) 29.7 % 13.0 - 44.0 % [facility] MCH (RBC) [Entitic mass] 30.2 pg 26.0 - 34.0 pg [facility] MCHC (RBC) [Mass/Vol] 32.2 g/dL 32.0 - 36.0 g/dL [facility] MCV (RBC) [Entitic vol] 94 fL 80 - 100 fL [facility] Monocytes (Bld) [#/Vol] 1.33 10*3/uL High [facility] Monocytes/100 WBC (Bld) 8.1 % 2.0 - 10.0 % [facility] Neutrophils (Bld) [#/Vol] 9.64 10*3/uL [facility] Comment on above: Percent differential counts (%) should be interpreted in the context of the absolute cell counts (cells/uL). Neutrophils/100 WBC (Bld) 58.8 % 40.0 - 80.0 % [facility] Nucleated RBC/100 WBC (Bld) [Ratio] 0.0 % [facility] Platelets (Bld) [#/Vol] 359 10*3/uL [facility] RBC (Bld) [#/Vol] 4.11 10*6/uL Low Unive [facility] WBC (Bld) [#/Vol] 16.4 10*3/uL [facility] Cobalamin (Vitamin B12) [Mas s/Vol]on 03-06-2023 Interpretation and review of laboratory results Abnormal [facility] Comprehensive metabolic 2000 panelon 03-06-2023 Albumin BCP dye [Mass/Vol] 4.3 g/dL 3.4 - 5.0 g/dL [facility] ALP [Catalytic activity/Vol] 69 U/L 33 - 136 U/L [facility] ALT With P-5'-P [Catalytic activity/Vol] 33 U/L 10 - 52 U/L [facility] Comment on above: Patients treated wit h Sulfasalazine may generate falsely decreased results for ALT. Anion gap [Moles/Vol] 12 mmol/L 10 - 2 0 mmol/L [facility] AST With P-5'-P [Catalytic activity/Vol] 27 U/L 9 - 39 U/L [facility] Bilirubin [Mass/Vol] 0.4 mg/dL 0.0 - 1 .2 mg/dL [facility] Calcium [Mass/Vol] 10.0 mg/dL 8.6 - 10. 3 mg/dL [facility] Chloride [Moles/Vol] 100 mmol/L 98 - 10 7 mmol/L [facility] CO2 [Moles/Vol] 28 mmol/L 21 - 32 mmol/L [facility] Creatinine [Mass/Vol] 1.75 mg/dL High 0.50 - 1.30 mg/dL [facility] GFR/1.73 sq M.predicted among non-blacks MDRD (S/P/Bld) [Vol rate/Area] 44 mL/min/{1.73_m2} Low - PINF [facility] Comment on above: Calculations of fara mated GFR are performed using the 2020 CKD-EPI Study Refit equation without the race variable for the IDMS-Traceable creatinine methods. https://jasn.asnjournals.org/content/early/ASN.78101 57571 Glucose [Mass/Vol] 138 mg/dL High 74 - 99 mg/dL [facility] Potassium [Moles/Vol] 4.4 mmol/L 3.5 - 5.3 mmol/L [facility] Protein [Mass/Vol] 7.4 g/dL 6.4 - 8.2 g/dL [facility] Sodium [Moles/Vol] 136 mmol/L 136 - 145 mmol/L [facility] Urea nitrogen [Mass/Vol] 35 mg/dL High 6 - 23 mg/dL [facility] HbA1c (Bld) [Mass fraction]o n 03-06-2023 Average glucose Estimated from glycated hemoglobin (Bld) [Mass/Vol] 217 mg/dL Not Established [facility] Interpretation and review of laboratory results Abnormal [facility] Diagnosis of Diabetes-Adults Non-Diabetic: < or = 5.6% Increased risk for developing diabetes: 5.7-6.4% Diagnostic of diabetes: > or = 6.5% Monitoring of Diabetes Age (y)................... .... Therapeutic Goal (%) Adults: >18................... ......<7.0 Pediatrics: 13-18................. ..<7.5 Pediatrics: 7-12.................. ..<8.0 Pediatrics: 0-6................... .. 7.5-8.5 [employer] [employer]. Diabetes Care 33(S1), Feb 2009 [facility] Hemoglobin A1Con 03-06-2023 HbA1c (Bld) [Mass fraction] 9.2 % High see below [facility] Lipid 1996 panelon Cholesterol [Mass/Vol] 147 mg/dL 0 - 1 99 mg/dL [facility] Comment on above: Age Desirable Borderline [...] dosing. Cholesterol in HDL [Mass/Vol] 37.7 mg/dL [facility] Comment on above: Age Very Low Low Normal High 0-19 Y < 35 < 40 40-45 ---- 20-24 Y ---- < 40 >45 ---- >24 Y ---- < 40 40-60 >60 Cholesterol in LDL [Mass/Vol] 48 mg/dL NINF - 99 mg/dL [facility] Comment on above: Near Borderline AGE Desirable Optimal High High Very High 0-19 Y 0 - 109 --- 110-129 >/= 130 ---- 20-24 Y 0 - 119 --- 120-159 >/= 160 ---- >24 Y 0 - 99 100-129 130-159 160-189 >/=190 Cholesterol in VLDL [Mass/Vol] 61 mg/dL High 0 - 40 mg/dL [facility] Cholesterol.total/Chol esterol in HDL [Mass ratio] 3.9 {ratio} [facility] Comment on above: Ref Values Desirable < 3.4 High Risk > 5.0 Non HDL Cholesterol 109 mg/dL 0 - 149 mg/dL [facility] Comment on above: Age Desirable Borderline High High Very High 0-19 Y 0 - 119 120 - 144 >/= 145 >/= 160 20-24 Y 0 - 149 150 - 189 >/= 190 ---- >24 Y 30 mg/dL above LDL Cholesterol goal Triglyceride [Mass/Vol] 305 mg/dL High 0 - 149 mg/dL [facility] Comment on above: Age Desirable Borderline [...] be performed immediately prior to Metamizole dosing. No Panel Informationon 03-06 Interpretation and review of laboratory results Abnormal [facility] TSH with reflex to Free T4 i f abnormalon 03-06-2023 Interpretation and review of laboratory results Normal [facility] TSH Qn 1.63 m[IU]/L [facility] TSH testing is performed using different testing methodology at [facility] than at other [facility]. Direct result comparisons should only be made within the same method. [facility] Urate [Mass/Vol]on Interpretation and review of laboratory results Normal [facility] Uric acidon 03-06-2023 Urate [Mass/Vol] 5.4 mg/dL 4.0 - 7.5 mg/dL [facility] Comment on above: Venipuncture immedia tely after or during the administration of Metamizole may lead to falsely low results. Testing should be performed immediately prior to Metamizole dosing. Vitamin B12on 03-06-2023 Cobalamin (Vitamin B12) [Mass/Vol] 975 pg/mL High 211 - 911 pg/mL [facility] ENT Physician Progress N oteon 01-31-2023 [facility] ENT Physician Progress Note JEFFERSON CARCAMO [...] ankylosing spondylitis. He does not have a title agent. His primary doctor recently retired. Review of [...] Measurement Refused by Patient?2: No (01/31/23 15:39:00) Depression Screening Scores Initial Depression Screen Score: 0 (01/31/23 15:39:00) Fall Risk Assessment Is the patient ambulatory (mobile): Yes (01/31/23 15:39:00) Have you had a fall within the past: No (01/31/23 15:39:00) Have you had 2 or more falls in the past: No (01/31/23 15:39:00) The ears were examined and the right [...] point may benefit from assessment by a title agent. He also may benefit from physical therapy for his dizziness. Ordered: AMB Office/Outpt Est Pt Low MDM / 20-29 min significant, separately identifiable , 01/31/2023 15:50:00 EST, Ankylosing spondylitis / History of cholesteatoma / Dizziness AMB Remove impctd cerumen w/[place] [id number], 01/31/2023 15:50:00 EST, Ankylosing spondylitis / History of cholesteatoma / Dizziness, 1 2. History of cholesteatoma Z86.69 There is no evidence of recurrence. I did remove wax was right ear. Ordered: AMB Office/Outpt Est Pt Low MDM / 20-29 min significant, separately identifiable , 01/31/2023 15:50:00 EST, Ankylosing spondylitis / History of cholesteatoma / Dizziness AMB Remove impctd cerumen w/[place] [id number], 01/31/2023 15:50:00 EST, Ankylosing spondylitis / History [...] Dizziness AMB Remove impctd cerumen w/[place] [id number], 01/31/2023 15:50:00 EST, Ankylosing spondy (more content not included)... Normal [facility] Ambulatory Clinical Summaryo n 01-31-2023 Ambulatory Clinical Summary JEFFERSON CARCAMO :1960 Registration Date:01/31/2023 Ambulatory Visit Instructions Your Diagnosis Ankylosing spondylitis History of cholesteatoma Dizziness Impacted cerumen of right ear Your Care Team Attending Physician - KRISTYN AGUERO, TRISHA Primary Care Physician - DOLORES AGUERO, PHILLIP Discharge Vitals Height 70.08 in (178 cm) Weight 244.76 lb (111 kg) BMI 35.03 Height/Length Measured: 178 cm (01/31/23 15:39:00) Weight Measured: 111 kg (01/31/23:39:00) Body Mass Index Measured: 35.03 kg/m2 (01/31/23 15:39:00) Weight Measured - lbs2: 245 lb (01/31/23 15:39:00) Height/Length Measured - in2: 70 in (01/31/23 15:39:00) Body Mass Index Measured English2: 35.15 kg/m2 (01/31/23 15:39:00) BSA: 2.34 m2 (01/31/23:39:00) Ht/Wt Measurement Refused by Patient?2: No (01/31/23 [...] call to get immediate medical attention! Normal [facility] Comprehensive Intake - Texto n 01-31-2023 Comprehensive [...] in, 178 cm) Body Mass Index Measured Bruneian : 35.15 kg/m2 BSA Bruneian : 2.34 m2 Adriana Reynolds - 01/31/2023 15:39 EST Vitals Require BP : No Pain Present : No actual or suspected pain Pain : 0 Pain severity quantified : No pain present Adriana Reynolds 01/31/2023 15:40 EST Infection Screening - Ambulatory Exposure AND/OR close contact with a person under investigation or laboratory-confirmed COVID-19 individual within 14 days of symptom onset AND/OR any of the following: : No Do you live/work in a high risk situation (congregated living, hemodialysis, infusion clinic, penitentiary, assisted living, fci, homeless penitentiary, etc.)? : No Adriana Reynolds 01/31/2023 15:40 EST Depression Screening Is patient currently : None of the Below Feeling Down, Depressed, Hopeless : Not at all Little Interest - Pleasure in Activities : Not at all Initial Depression Screen Score : 0 Depression Screening Score 0 : No Jose Reynoldshanie 01/31/2023 15:40 EST Falls Risk Assessment Is the patient ambulatory (mobile) : Yes Have you had 2 or more falls in the past year : No Have you had a fall within the past year that has caused an injury : No Patient screen for fall risk : no falls in last year OR 1 fall with no injury in last year Jose Reynoldshanie 01/31/2023 15:40 EST Normal [facility] HEMOGLOBIN A1Con 09-19-2022 Glucose [Mass/Vol] 214 mg/dL Normal [facility] Comment on above: Performed By: #### H BA1E #### [facility] [address] [place] [address] HbA1c (Bld) [Mass fraction] 9.1 % Abnormal [facility] [place] on above: Result Comment: Diag nosis of Diabetes-Adults Non-Diabetic: < or = 5.6% Increased risk for developing diabetes: 5.7-6.4% Diagnostic of diabetes: > or = 6.5% . Monitoring of Diabetes Age (y) Therapeutic Goal (%) Adults: >18 <7.0 Pediatrics: 13-18 <7.5 7-12 <8.0 0- 6 7.5-8.5 [employer]. Diabetes Care 33(S1), Feb 2009. Performed By: #### H BA1E #### [facility] [address] [place] [address] CBC AND DIFFERENTIALon 09-18 % AUTOMATED IMMATURE GRAN 0.2 % Normal 0.0 - 0.9 [facility] Comment on above: Result Comment: Leesa ture Granulocyte Count (IG) includes promyelocytes, myelocytes and metamyelocytes but does not include bands. Percent differential counts (%) should be interpreted in the context of the absolute cell counts (cells/L). Performed By: #### C BCDF #### [address] [place] [address] Basophils (Bld) [#/Vol] 0.05 10*3/uL Normal 0.00 - 0.10 [facility] [place] on above: Performed By: #### C BCDF #### [address] [place] [address] Basophils/100 WBC (Bld) 0.3 % Normal 0.0 - 2.0 [facility] Comment on above: Performed By: #### C BCDF #### [address] [place] [address] Eosinophils (Bld) [#/Vol] 0.66 10*3/uL Normal 0.00 - 0.70 [facility] [place] on above: Performed By: #### C BCDF #### [address] [place] [address] Eosinophils/100 WBC (Bld) 4.5 % Normal 0.0 - 6.0 [facility] Comment on above: Performed By: #### C BCDF #### [address] [place] [address] Erythrocyte distribution width (RBC) [Ratio] 13.0 % Normal 11.5 - 14.5 [facility] Comment on above: Performed By: #### C BCDF #### [address] [place] [address] Hematocrit (Bld) [Volume fraction] 37.2 % Low 41.0 - 52.0 [facility] [place] on above: Performed By: #### C BCDF #### [address] [place] [address] Hemoglobin (Bld) [Mass/Vol] 12.6 g/dL Low 13.5 - 17.5 [facility] Comment on above: Performed By: #### C BCDF #### [address] [place] [address] Lymphocytes (Bld) [#/Vol] 5.07 10*3/uL High 1.20 - 4.80 [facility] [place] on above: Performed By: #### C BCDF #### [address] [place] [address] Lymphocytes/100 WBC (Bld) 34.9 % Normal 13.0 - 44.0 [facility] Comment on above: Performed By: #### C BCDF #### [address] [place] [address] MCHC (RBC) [Mass/Vol] 33.9 g/dL Normal 32.0 - 36.0 [facility] [place] Comment on above: Performed By: #### C BCDF #### [address] [place] [address] MCV (RBC) [Entitic vol] 94 fL Normal 80 - 100 [facility] [place] on above: Performed By: #### C BCDF #### [address] [place] [address] Monocytes (Bld) [#/Vol] 1.06 10*3/uL High 0.10 - 1.00 [facility] [place] on above: Performed By: #### C BCDF #### [address] [place] [address] Monocytes/100 WBC (Bld) 7.3 % Normal 2.0 - 10.0 [facility] [place] on above: Performed By: #### C BCDF #### [address] [place] [address] Neutrophils (Bld) [#/Vol] 7.64 10*3/uL Normal 1.20 - 7.70 [facility] [place] on above: Performed By: #### C BCDF #### [address] [place] [address] Neutrophils/100 WBC (Bld) 52.8 % Normal 40.0 - 80.0 [facility] Comment on above: Performed By: #### C BCDF #### [address] [place] [address] Platelets (Bld) [#/Vol] 286 10*3/uL Normal 150 - 450 [facility] Comment on above: Performed By: #### C BCDF #### [address] [place] [address] RBC 3.95 x10E12/L Low 4.50 - 5.90 [facility] [place] on above: Performed By: #### C BCDF #### [address] [place] [address] WBC (Bld) [#/Vol] 14.5 10*3/uL High 4.4 - 11.3 [facility] Comment on above: Performed By: #### C BCDF #### [address] [place] [address] COMPREHENSIVE PANELon 2022 ALBUMIN Canceled Normal [facility] [place] on above: Order Comment: TEST COMPREHENSIVE PANEL WAS CANCELLED, 09/18/2022 16:25 [facility] Performed By: #### C MP #### [address] [address] ALKALINE PHOSPHATASE Canceled Normal [facility] [place] on above: Order Comment: TEST COMPREHENSIVE PANEL WAS CANCELLED, 09/18/2022 16:25 [facility] Performed By: #### C MP #### [address] [place] [address] ALT Canceled Normal [facility] Comment on above: Order Comment: TEST COMPREHENSIVE PANEL WAS CANCELLED, 09/18/2022 16:25 [facility] Result Comment: Svetlana ents treated with Sulfasalazine may generate falsely decreased results for ALT. Performed By: #### C MP #### [address] [place] [address] ANION GAP Canceled Normal [facility] Comment on above: Order Comment: TEST COMPREHENSIVE PANEL WAS CANCELLED, 09/18/2022 16:25 [facility] Performed By: #### C MP #### [address] [place] [address] AST Canceled Normal [facility] Comment on above: Order Comment: TEST COMPREHENSIVE PANEL WAS CANCELLED, 09/18/2022 16:25 [facility] Performed By: #### C MP #### [address] [place] [address] BICARBONATE Canceled Normal [facility] Comment on above: Order Comment: TEST COMPREHENSIVE PANEL WAS CANCELLED, 09/18/2022 16:25 [facility] Performed By: #### C MP #### [address] [place] [address] BILIRUBIN,TOTAL Canceled Normal [facility] [place] on above: Order Comment: TEST COMPREHENSIVE PANEL WAS CANCELLED, 09/18/2022 16:25 DUPLICATE DONE [facility]. Performed By: #### C MP #### [address] [place] [address] CALCIUM Canceled Normal [facility] Comment on above: Order Comment: TEST COMPREHENSIVE PANEL WAS CANCELLED, 09/18/2022 16:25 DUPLICATE DONE [facility]. Performed By: #### C MP #### [address] [place] [address] CHLORIDE Canceled Normal [facility] Comment on above: Order Comment: TEST COMPREHENSIVE PANEL WAS CANCELLED, 09/18/2022 16:25 DUPLICATE DONE [facility]. Performed By: #### C MP #### [address] [place] [address] CREATININE Canceled Normal [facility] Comment on above: Order Comment: TEST COMPREHENSIVE PANEL WAS CANCELLED, 09/18/2022 16:25 [facility] Performed By: #### C MP #### [address] [place] [address] eGFR FEMALE Canceled Normal [facility] Comment on above: Order Comment: TEST COMPREHENSIVE PANEL WAS CANCELLED, 09/18/2022 16:25 [facility]. Result Comment: CALC ULATIONS OF ESTIMATED GFR ARE PERFORMED USING THE 2020 CKD-EPI STUDY REFIT EQUATION WITHOUT THE RACE VARIABLE FOR THE IDMS-TRACEABLE CREATININE METHODS. https://jasn.asnjournals.org/content/early/ASN.24535 10047 Performed By: #### C MP #### [address] [place] [address] eGFR MALE Canceled Normal [facility] [place] on above: Order Comment: TEST COMPREHENSIVE PANEL WAS CANCELLED, 09/18/2022 16:25 [facility]. Result Comment: CALC ULATIONS OF ESTIMATED GFR ARE PERFORMED USING THE 2020 CKD-EPI STUDY REFIT EQUATION WITHOUT THE RACE VARIABLE FOR THE IDMS-TRACEABLE CREATININE METHODS. https://jasn.asnjournals.org/content/early/ASN.16825 28129 Performed By: #### C MP #### [address] [place] [address] GLUCOSE Canceled Normal [facility] Comment on above: Order Comment: TEST COMPREHENSIVE PANEL WAS CANCELLED, 09/18/2022 16:25 [facility] Performed By: #### C MP #### [address] [place] [address] POTASSIUM Canceled [facility] Comment on above: Order Comment: TEST COMPREHENSIVE PANEL WAS CANCELLED, 09/18/2022 16:25 [facility]. Performed By: #### C MP #### [address] [place] [address] SODIUM Canceled Normal [facility] Comment on above: Order Comment: TEST COMPREHENSIVE PANEL WAS CANCELLED, 09/18/2022 16:25 [facility]. Performed By: #### C MP #### [address] [place] [address] TOTAL PROTEIN Canceled Normal [facility] Comment on above: Order Comment: TEST COMPREHENSIVE PANEL WAS CANCELLED, 09/18/2022 16:25 [facility] Performed By: #### C MP #### [address] [place] [address] UREA NITROGEN Canceled Normal [facility] Comment on above: Order Comment: TEST COMPREHENSIVE PANEL WAS CANCELLED, 09/18/2022 16:25 [facility] Performed By: #### C MP #### [address] [place] [address] Albumin [Mass/Vol] 4.3 g/dL Normal 3.4 - 5.0 [facility] Comment on above: Performed By: #### C MP #### [address] [place] [address] ALP [Catalytic activity/Vol] 68 U/L Normal 33 - 136 [facility] Comment on above: Performed By: #### C MP #### [address] [place] [address] ALT [Catalytic activity/Vol] 42 U/L Normal 10 - 52 [facility] Comment on above: Result Comment: Svetlana ents treated with Sulfasalazine may generate falsely decreased results for ALT. Performed By: #### C MP #### [address] [place] [address] Anion gap [Moles/Vol] 14 mmol/L Normal 10 - 20 [facility] Comment on above: Performed By: #### C MP #### [address] [place] [address] AST [Catalytic activity/Vol] 27 U/L Normal 9 - 39 [facility] Comment on above: Performed By: #### C MP #### [address] [place] [address] Bilirubin [Mass/Vol] 0.4 mg/dL Normal 0.0 - 1.2 [facility] Comment on above: Performed By: #### C MP #### [address] [place] [address] Calcium [Mass/Vol] 9.8 mg/dL Normal 8.6 - 10.3 [facility] Comment on above: Performed By: #### C MP #### [address] [place] [address] Chloride [Moles/Vol] 103 mmol/L Normal 98 - 107 [facility] Comment on above: Performed By: #### C MP #### [address] [place] [address] Creatinine [Mass/Vol] 1.68 mg/dL High 0.50 - 1.30 [facility] [place] Comment on above: Performed By: #### C MP #### [address] [place] [address] GFR/1.73 sq M.predicted among non-blacks MDRD (S/P/Bld) [Vol rate/Area] 46 mL/min/{1.73_m2} Abnormal >90 [facility] [place] on above: Result Comment: CALC ULATIONS OF ESTIMATED GFR ARE PERFORMED USING THE 2020 CKD-EPI STUDY REFIT EQUATION WITHOUT THE RACE VARIABLE FOR THE IDMS-TRACEABLE CREATININE METHODS. https://jasn.asnjournals.org/content/early//ASN.80388 59743 Performed By: #### C MP #### [address] [place] [address] Glucose [Mass/Vol] 190 mg/dL High 74 - 99 [facility] Comment on above: Performed By: #### C MP #### [address] [place] [address] HCO3 (Bld) [Moles/Vol] 26 mmol/L Normal 21 - 32 [facility] [place] Comment on above: Performed By: #### C MP #### [address] [place] [address] Potassium [Moles/Vol] 4.7 mmol/L Normal 3.5 - 5.3 [facility] Comment on above: Performed By: #### C MP #### [address] [place] [address] Protein [Mass/Vol] 7.2 g/dL Normal 6.4 - 8.2 [facility] Comment on above: Performed By: #### C MP #### [address] [place] [address] Sodium [Moles/Vol] 138 mmol/L Normal 136 - 145 [facility] Comment on above: Performed By: #### C MP #### [address] [place] [address] Urea nitrogen [Mass/Vol] 38 mg/dL High 6 - 23 [facility] Comment on above: Performed By: #### C MP #### [address] [place] [address] Complete Blood Count + Diffe joana 09-18-2022 Basophils/100 WBC (Bld) 0.3 % 0.0 - 2.0 [facility] DO Work Phone: Erythrocyte distribution width (RBC) [Ratio] 13.0 % See Below [facility] DO Work Phone: Comment on above: Reference Range: 11. 5 - 14.5 Hematocrit (Bld) [Volume fraction] 37.2 % below low threshold See Below [facility] DO Work Phone: Comment on above: Reference Range: 41. 0 - 52.0 Hemoglobin (Bld) [Mass/Vol] 12.6 g/dL below low threshold See Below [facility] DO Work Phone: Comment on above: Reference Range: 13. 5 - 17.5 Lymphocytes/100 WBC (Bld) 34.9 % See Below [facility] DO Work Phone: Comment on above: Reference Range: 13. 0 - 44.0 MCHC (RBC) [Mass/Vol] 33.9 g/dL See Below [facility] DO Work Phone: Comment on above: Reference Range: 32. 0 - 36.0 MCV (RBC) [Entitic vol] 94 fL 80 - 100 [facility] DO Work Phone: Monocytes/100 WBC (Bld) 7.3 % 2.0 - 10.0 [facility] DO Work Phone: Neutrophils/100 WBC (Bld) 52.8 % See Below [facility] DO Work Phone: Comment on above: Reference Range: 40. 0 - 80.0 Platelets (Bld) [#/Vol] 286 10*3/uL 150 - 450 [facility] DO Work Phone: RBC (Bld) [#/Vol] 3.95 {x10E12/L} below low threshold See Below [facility] DO Work Phone: Comment on above: Reference Range: 4.5 0 - 5.90 WBC (Bld) [#/Vol] 14.5 10*3/uL above high threshold 4.4 - 11.3 [facility] DO Work Phone: Complete Blood Count + Differential 0.05 {x10E9/L} See Below [facility] DO Work Phone: Comment on above: Reference Range: 0.0 0 - 0.10 Complete Blood Count + Differential 0.66 {x10E9/L} See Below [facility] DO Work Phone: Comment on above: Reference Range: 0.0 0 - 0.70 Complete Blood Count + Differential 1.06 {x10E9/L} above high threshold See Below [facility] DO Work Phone: Comment on above: Reference Range: 0.1 0 - 1.00 Complete Blood Count + Differential 5.07 {x10E9/L} above high threshold See Below [facility] DO Work Phone: Comment on above: Reference Range: 1.2 0 - 4.80 Complete Blood Count + Differential 7.64 {x10E9/L} See Below [facility] DO Work Phone: Comment on above: Reference Range: 1.2 0 - 7.70 Complete Blood Count + Differential 4.5 % 0.0 - 6.0 [facility] DO Work Phone: Complete Blood Count + Differential 0.2 % 0.0 - 0.9 [facility] DO Work Phone: Comment on above: Immature Granulocyte Count (IG) includes promyelocytes, myelocytes and metamyelocytes but does not include bands. Percent differential counts (%) should be interpreted in the context of the absolute cell counts (cells/L). FERRITINon 09-18-2022 FERRITIN 150 ug/L Normal 20 - 300 [facility] [place] on above: Performed By: #### F ERRI #### [facility] [place] [address] [place] [address] Ferritin, Serumon 09-18-2022 Ferritin [Mass/Vol] 150 ug/L 20 - 300 [facility] DO Work Phone: Hemoglobin A1Con 09-18-2022 Glucose [Mass/Vol] 214 mg/dL [facility] DO Work Phone: HbA1c (Bld) [Mass fraction] 9.1 % Abnormal [facility] DO Work Phone: Comment on above: Diagnosis of Diabete s-Adults Non-Diabetic: < or = 5.6% Increased risk for developing diabetes: 5.7-6.4% Diagnostic of diabetes: > or = 6.5%. Monitoring of Diabetes Age (y) Therapeutic Goal (%) Adults: >18 <7.0 Pediatrics: 13-18 <7.5 7-12 <8.0 0- 6 7.5-8.5 [employer] [employer]. Diabetes Care 33(S1), Feb 2009. IRON + TIBCon 09-18-2022 % SATURATION 34 % Normal 25 - 45 [facility] [place] on above: Performed By: #### I WALLY #### [place] [id number] Iron [Mass/Vol] 107 ug/dL Normal 35 - 150 [facility] Comment on above: Performed By: #### I MARILYNNT #### [place] [id number] TIBC 315 ug/dL Normal 240 - 445 [facility] Comment on above: Performed By: #### I MARILYNNT #### [address] [address] Laboratory - Chemistry and C hemistry - challengeon 09-18-2022 Albumin BCP dye [Mass/Vol] Canceled [facility] DO Work Phone: ALP [Catalytic activity/Vol] Canceled [facility] DO Work Phone: ALT With P-5'-P [Catalytic activity/Vol] Canceled [facility] DO Work Phone: Comment on above: Patients treated wit h Sulfasalazine may generate falsely decreased results for ALT. AST With P-5'-P [Catalytic activity/Vol] Canceled [facility] DO Work Phone: Bilirubin [Mass/Vol] Canceled [facility] DO Work Phone: Calcium [Mass/Vol] Canceled [facility] DO Work Phone: Chloride [Moles/Vol] Canceled -[facility] DO Work Phone: CO2 [Moles/Vol] Canceled [facility] DO Work Phone: Creatinine [Mass/Vol] Canceled [facility] DO Work Phone: Glucose [Mass/Vol] Canceled [facility] DO Work Phone: Potassium [Moles/Vol] Canceled [facility] DO Work Phone: Protein [Mass/Vol] Canceled [facility] DO Work Phone: Sodium [Moles/Vol] Canceled [facility] DO Work Phone: Urea nitrogen [Mass/Vol] Canceled [facility] DO Work Phone: Albumin BCP dye [Mass/Vol] 4.3 g/dL 3.4 - 5.0 [facility] DO Work Phone: ALP [Catalytic activity/Vol] 68 U/L 33 - 136 [facility] DO Work Phone: ALT With P-5'-P [Catalytic activity/Vol] 42 U/L 10 - 52 [facility] DO Work Phone: Comment on above: Patients treated wit h Sulfasalazine may generate falsely decreased results for ALT. Anion gap [Moles/Vol] 14 mmol/L 10 - 20 [facility] DO Work Phone: AST With P-5'-P [Catalytic activity/Vol] 27 U/L 9 - 39 [facility] DO Work Phone: Bilirubin [Mass/Vol] 0.4 mg/dL 0.0 - 1.2 [facility] DO Work Phone: Calcium [Mass/Vol] 9.8 mg/dL 8.6 - 10.3 [facility] DO Work Phone: Chloride [Moles/Vol] 103 mmol/L 98 - 107 [facility] DO Work Phone: CO2 [Moles/Vol] 26 mmol/L 21 - 32 [facility] DO Work Phone: Creatinine [Mass/Vol] 1.68 mg/dL above high threshold See Below [facility] DO Work Phone: Comment on above: Reference Range: 0.5 0 - 1.30 Glucose [Mass/Vol] 190 mg/dL above high threshold 74 - 99 [facility] DO Work Phone: Iron [Mass/Vol] 107 ug/dL 35 - 150 [facility] DO Work Phone: Iron binding capacity [Mass/Vol] 315 ug/dL 240 - 445 [facility] DO Work Phone: Potassium [Moles/Vol] 4.7 mmol/L 3.5 - 5.3 [facility] DO Work Phone: Protein [Mass/Vol] 7.2 g/dL 6.4 - 8.2 [facility] DO Work Phone: Sodium [Moles/Vol] 138 mmol/L 136 - 145 [facility] DO Work Phone: Urea nitrogen [Mass/Vol] 38 mg/dL above high threshold 6 - 23 [facility] Work Phone: No Panel Informationon 09-18 Canceled [facility] Work Phone: Comment on above: CALCULATIONS OF FARA MATED GFR ARE PERFORMED USING THE 2020 CKD-EPI STUDY REFIT EQUATION WITHOUT THE RACE VARIABLE FOR THE IDMS-TRACEABLE CREATININE METHODS.https://jasn.asnjournals.org/content/early/A SN.5027189843 34 % 25 - 45 [facility] Work Phone: 46 {mL/min/1.73m2} Abnormal >90 [facility] Work Phone: Comment on above: CALCULATIONS OF FARA MATED GFR ARE PERFORMED USING THE 2020 CKD-EPI STUDY REFIT EQUATION WITHOUT THE RACE VARIABLE FOR THE IDMS-TRACEABLE CREATININE METHODS.https://jasn.asnjournals.org/content//A SN.6804359365 Tobacco Screening.on 023 Adult depression screening assessment No [facility] Work Phone: Fall risk assessment a) No falls within the last year [facility] Work Phone: Tobacco use status CPHS b) No [facility] Work Phone: Prostate Spec.Ag, Screenon 0 06-26-2022 Prostate specific Ag [Mass/Vol] 2.45 ng/mL See Below [facility] Work Phone: Comment on above: Reference Range: 0.0 0 - 4.00The FDA requires that the method used for PSA assay be reported to the physician. Values obtained with different assay methods must not be used interchangeably. This test was performed at [facility] (formerly [facility]) using the [employer] PSA method, which is a sandwich immunoassay using chemiluminescence for quantitation. The assay is approvedfor measurement of prostate-specific antigen (PSA) in serum and may be used in conjunction with a digital rectalexamination in men 50 years and older as an aid in detection of prostate cancer. 0-Haciw-ldrltpebi inhibitors (e.g. Proscar, Finasteride, Avodart, Dutasteride and [place]) for the treatment of BPH have been shown to lower PSA levels by an average of 50% after 6 months of treatment. Laboratory - Molecular patho logyon 12-31-2021 Noninvasive colorectal cancer DNA and occult blood screening Edson (Stl) [Interp] Negative Negative [facility] DO Work Phone: Comment on above: [employer] LABOR [email or web address] (CLIA #:[id number])[address] [place] [address] FRANCISCO TA , Clinical Laboratory Medical DirectorNEGATIVE [...] (Kb Hinds al, N Engl J Med 2014;370(14):7191-7912) The normal value (reference range) for this assay is negative.COLOGUARD RE-SCREENING RECOMMENDATION: Periodic colorectal cancer screening is an important part of preventive healthcare for asymptomatic individuals at average risk for colorectal cancer. Following a negative Cologuard result, the [place] [employer] and U.S. Multi-Society Task Force screening guidelines recommend a Cologuard re-screening interval of 3 years. References: [place] [employer] Guideline for Colorectal Cancer Screening: https://www.cancer.org/cancer/cymyq-egdfok-xdxuhw/detection-robbi gnosis-staging/acs-recommendations.html.; Wing DK, Sal CR, Kisha BealK, Colorectal Cancer Screening: Recommendations for Physicians and Patients from the U.S. Multi-Society Task Force on Colorectal Cancer Screening , Am J Gastroenterology 2017; 112:0704-4372.TEST DESCRIPTION: Composite algorithmic analysis of stool DNA-biomarkers [...] (Kb Hinds al, N Engl J Med 2014;370(14):8267-3257.) Cologuard may produce a false negative or false positive result (no colorectal cancer or precancerous polyp present at colonoscopy follow up). A negative Cologuard test result does not guarantee the absence of CRC or advanced adenoma (pre-cancer). The current Cologuard screening interval is every 3 years. ([place] [employer] Society and U.S. Multi-Society Task Force). Cologuard performance data in a 10,000 patient pivotal study using colonoscopy as the reference method can be accessed at the following location: www.[employer]View Systems.Smarp/results. Additional description of the Cologuard test process, warnings and precautions can be found at www.[employer].com. Follow Up (Endocrinology)on 12-26-2021 Follow Up (Endocrinology) Diagnoses/Problems Assessed Diabetes mellitus, type 2 (250.00) (E11.9) Hyperlipidemia (272.4) (E78.5) Benign essential hypertension (401.1) (I10) Orders Diabetes mellitus, type 2 IO glucose, blood, finger stick via hand held monitor; Status:Complete; Done: 26Dec2021 04:28PM Performed:In Office; Due:[id number]; Last Updated By:Nadya Parada; 12/26/2021 4:28:58 PM;Ordered; For:Diabetes mellitus, type 2; Ordered By:Rudi Abdi; IO Hgb A1C; Status:Complete; Done: 26Dec2021 04:29PM Performed:In Office; Due:[id number]; Last Updated By:Nadya Parada; 12/26/2021 4:30:29 PM;Ordered; [...] HbA1c (Bld) [Mass fraction] 7.5 % 4.2-6.5% [employer] Phone: IO glucose, blood, finger st ick via hand held monitoron 12-26-2021 Glucose [Mass/Vol] 152 mg/dL [employer] Phone: Tobacco Screening.on 022 Adult depression screening assessment No [employer] Phone: Fall risk assessment a) No falls within the last year [employer] Phone: Tobacco use status CPHS b) No [employer] Phone: ALBUMIN, URINE SPOTon 2021 ALBUMIN,URINE 8.6 mg/L Normal Not Established [facility] [place] on above: Performed By: #### A LBSP #### [address] [address] ALBUMIN/CREAT RATIO 6.1 ug/mg set up operator Normal 0.0 - 30.0 [facility] Comment on above: Performed By: #### A LBSP #### [address] [address] CREATININE,URINE 140.0 mg/dL Normal 20.0 - 370.0 [facility] Comment on above: Performed By: #### A LBSP #### [address] [address] Laboratory - Chemistry and C hemistry - challengeon 12-20-2021 Albumin Ql (U) 8.6 mg/L See Below [facility] Work Phone: Comment on above: Reference Range: Not Established Albumin/Creatinine DL <= 20 mg/L (U) [Mass ratio] 6.1 {ug/mg_crt} 0.0 - 30.0 [facility] Work Phone: Creatinine (U) [Mass/Vol] 140.0 mg/dL See Below [employer] Phone: Comment on above: Reference Range: 20. [...] alcohol. Patient presenting wellness exam. 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 We will get the PSA after the [...] with above as is 5. Diabetes per road tester questions concerns addressed proceed from there 'Scores and Scales' PHQ-9 [id number] 03:56PM PHQ-9 #10. If you checked off [...] not included)... Normal [facility] Tobacco Screening.on Adult depression screening assessment No [facility] Work Phone: Fall risk assessment a) No falls within the last year [facility] Work Phone: Tobacco use status CPHS b) No [facility] Work Phone: Follow Up (Endocrinology)on 09-05-2021 Follow Up (Endocrinology) Diagnoses/Problems Assessed Diabetes mellitus, type 2 (250.00) (E11.9) Hyperlipidemia (272.4) (E78.5) Benign essential hypertension (401.1) (I10) Orders Diabetes mellitus, type 2 Albumin, Urine Spot; Status:Active; Requested for:[id number]; Perform:Lab Services - Lab To Draw (Non-Blood Test); Due:[id number];Ordered; For:Diabetes mellitus, type 2; Ordered By:Rudi Abdi; [...] HbA1c (Bld) [Mass fraction] 7.8 % 4.2-6.5% [employer] Phone: IO glucose, blood, finger st ick via hand held monitoron 09-05-2021 Glucose [Mass/Vol] 97 mg/dL [employer] Phone: Tobacco Screening.on 022 Adult depression screening assessment No [employer] Phone: Fall risk assessment a) No falls within the last year [employer] Phone: Tobacco use status CPHS b) No [facility] Work Phone: Tobacco Screening. Yes [facility] Work Phone: Office Visit (Family Melany johnson)on 06-20-2021 Follow-up visit Diagnoses/Problems Class 2 obesity [...] fruits and vegetables. You may; Status:Complete; Done: 20Jun2021 Unlinked Stop: Aspirin 81 MG TABS Chief [...] history of kidney stones. Is followed by road tester increase hemoglobin A1c noted PSA within normal [...] proceed from there. 'Scores and Scales' PHQ-9 [id number] 03:56PM PHQ-9 #10. If you checked off [...] of Chronic (more content not included)... Normal [employer] Tobacco Screening.on 022 Adult depression screening assessment No [facility] DO Work Phone: Fall risk assessment a) No falls within the last year [facility] DO Work Phone: Tobacco use status CPHS b) No [facility] DO Work Phone: Prostate Spec.Ag, Screenon 0 06-18-2021 Prostate specific Ag [Mass/Vol] 2.90 ng/mL See Below [facility] DO Work Phone: Comment on above: Reference Range: 0.0 0 - 4.00The FDA requires that the method used for PSA assay be reported to the physician. Values obtained with different assay methods must not be used interchangeably. This test was performed at [facility] ([facility]) using the [employer] PSA method, which is a sandwich immunoassay using chemiluminescence for quantitation. The assay is approvedfor measurement of prostate-specific antigen (PSA) in serum and may be used in conjunction with a digital rectalexamination in men 50 years and older as an aid in detection of prostate cancer. 3-Uvkcg-ipzfbhqdv inhibitors (e.g. Proscar, Finasteride, Avodart, Dutasteride and [...] 2; BASIM = N; Verified Transmission to [facility]; Last Updated By: [facility] [employer]; 05/23/2021 4:27:29 PM SocHx: Never a smoker [...] HbA1c (Bld) [Mass fraction] 7.9 % 4.2-6.5% [facility] Work Phone: IO glucose, blood, finger st ick via hand held monitoron 05-23-2021 Glucose [Mass/Vol] 130 mg/dL [employer] Work Phone: Tobacco Screening.on Adult depression screening assessment No [employer] Phone: Fall risk assessment a) No falls within the last year [employer] Phone: Tobacco use status CPHS b) No [employer] Phone: Established Visit (Orthopaed ic Surgery)on 04-13-2021 [...] Ludwig's portion of this dictation. In a lfxv-td-xcpy encounter, I performed a history and physical examination, discussed pertinent diagnostics studies if indicated, and discussed diagnosis and management strategies with both the patient and the midlevel provider. I reviewed the midlevel's note and agree with the documented findings and plan of care. Jefferson is a new patient to me sent [...] we may consider an MRI. 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 2020 he had the worst flareup of [...] of ar (more content not included)... Normal [facility] No Panel Informationon 03-02 Normal [facility] Work Phone: SPINE, LUMBOSACRAL MIN 4 VIE WSon 03-02-2021 SPINE, LUMBOSACRAL MIN 4 VIEWS Patient Name: JEFFERSON CARCAMO STUDY: SPINE, LUMBOSACRAL MIN 4 VIEWS; ; 03/02/2021 4:22 pm INDICATION: pain M54.50: Low back pain. ACCESSION NUMBER(S): [id number] ORDERING CLINICIAN: MARCO LUDWIG FINDINGS: AP lateral [...] Electronically signed by: MARCO LUDWIG MD Normal [facility] Tobacco Screening.on Fall risk assessment a) No falls within the last year -[facility] DO Work Phone: Tobacco use status CPHS b) No -[facility] DO Work Phone: Tobacco Screening. 0-Not at all [facility] DO Work Phone: IO Hgb A1Con 11-22-2020 HbA1c (Bld) [Mass fraction] 7.9 % 4.4-6.4% [facility] Work Phone: IO glucose, blood, finger st ick via hand held monitoron 11-22-2020 Glucose [Mass/Vol] 164 mg/dL [facility] [employer] Work Phone: Tobacco Screening.on Fall risk assessment a) No falls within the last year [employer] Work Phone: Tobacco use status CPHS b) No [facility] Work Phone: Outside Radiology Readon Outside Radiology Read This is a prelimi nary report only. This report will be final only after practitioner review and authentication has occurred. NAME: JEFFERSON CARCAMO MR#: [id number] DATE OF STUDY: 04/19/2020 RADIOLOGY REASON FOR [...] appearance, status post left total hip replacement. DINESH UHFFMAN MD Juan Miguel/[facility][id number] [facility] PT NAME: JEFFERSON CARCAMO MR#: [id number] [address] [place], [place] [id number] ACCT: [id number] : 64 DOWNTIME RADIOLGY REPORT ADM DATE: Normal [facility] Anesthesia Noteon 03-24-2020 Anesthesia Note [facility] Patient: JEFFERSON CARCAMO [address] [id number] MR#: [id number] ANESTHESIA NOTE : Service Date: 03/24/20 0806 [...] Electronically Signed eSign Date and Time ClarenceKayleigh HARNESSMAKER-SPONGE BUFFER 03/24/20 0807 Ariel De La Garza MD Normal [facility] BASIC MET PANELon 03-24-2020 Anion gap [Moles/Vol] 10 mmol/L Normal 6-18 [facility] Comment on above: Order Comment: CONSE RVATION Performed By: #### L 500.14546, L500.93663, L500.68468 ####Test performed at: [address] [address] Calcium [Mass/Vol] 8.2 mg/dL Low 8.5-10.1 [facility] Comment on above: Order Comment: CONSE RVATION Performed By: #### L 500.94259, L500.22521, L500.19573 ####Test performed at: [address] [address] Chloride [Moles/Vol] 103 mmol/L Normal 98-107 [facility] Comment on above: Order Comment: CONSE RVATION Performed By: #### L 500.45385, L500.64988, L500.76391 ####Test performed at: [address] [address] CO2 [Moles/Vol] 29 mmol/L Normal 21-32 [facility] Comment on above: Order Comment: CONSE RVATION Performed By: #### L 500.45341, L500.36139, L500.24371 ####Test performed at: [address] [address] Creatinine [Mass/Vol] 1.380 mg/dL High 0.700-1.300 [facility] Comment on above: Order Comment: CONSE RVATION Performed By: #### L 500.64226, L500.16757, L500.51639 ####Test performed at: [address] [address] Glucose [Mass/Vol] 119 mg/dL High 70-99 [facility] Comment on above: Order Comment: CONSE RVATION Result Comment: Fast ing GLUCOSE reference range has been updated per (ADA) [place] [employer]'s recommendation. 05/12/2018 Performed By: #### L 500.22316, L500.63287, L500.26242 ####Test performed at: [address] [address] OSM 289 mosm/kg Normal 270-300 [facility] Comment on above: Order Comment: CONSE RVATION Performed By: #### L 500.93985, L500.21466, L500.27663 ####Test performed at: [address] [address] Potassium [Moles/Vol] 4.7 mmol/L Normal 3.5-5.1 [facility] Comment on above: Order Comment: CONSE RVATION Performed By: #### L 500.08308, L500.75142, L500.42637 ####Test performed at: [address] [address] Sodium [Moles/Vol] 137 mmol/L Normal 136-145 [facility] Comment on above: Order Comment: CONSE RVATION Performed By: #### L 500.83079, L500.68796, L500.20802 ####Test performed at: [address] [place], [place] [address] Urea nitrogen [Mass/Vol] 24 mg/dL High 7-18 [facility] Comment on above: Order Comment: CONSE RVATION Performed By: #### L 500.28320, L500.57599, L500.90884 ####Test performed at: [address] [address] CBC W/DIFFon 03-24-2020 Erythrocyte distribution width (RBC) [Ratio] 12.7 % Normal 11.5-14.5 [facility] Comment on above: Order Comment: Comme nts To Phleb: pre-op in PAT Performed By: #### L 200.90581 #### Test performed at: [address] [address] Hematocrit (Bld) [Volume fraction] 33.1 % Low 39.0-55.0 [facility] Comment on above: Order Comment: Comme nts To Phleb: pre-op in PAT Performed By: #### L 200.02306 #### Test performed at: [address] [address] Hemoglobin (Bld) [Mass/Vol] 11.0 g/dL Low 14.0-16.5 [facility] Comment on above: Order Comment: Comme nts To Phleb: pre-op in PAT Performed By: #### L 200.10714 #### Test performed at: [address] [address] MCH (RBC) [Entitic mass] 31.5 pg Normal 25.4-34.6 [facility] Comment on above: Order Comment: Comme nts To Phleb: pre-op in PAT Performed By: #### L 200.19744 #### Test performed at: [address] [address] MCHC (RBC) [Mass/Vol] 33.2 g/dL Normal 31.5-36.5 [facility] Comment on above: Order Comment: Comme nts To Phleb: pre-op in PAT Performed By: #### L 200.07486 #### Test performed at: [address] [address] MCV (RBC) [Entitic vol] 94.8 fL Normal 80.0-100.0 [facility] Comment on above: Order Comment: Comme nts To Phleb: pre-op in PAT Performed By: #### L 200.18113 #### Test performed at: [address] [address] NRBC # 0.000 K/uL Normal 0-0.012 [facility] Comment on above: Order Comment: Comme nts To Phleb: pre-op in PAT Performed By: #### L 200.38263 #### Test performed at: [address] [address] NRBC % 0.0 /100 WBC Normal 0-0.2 [facility] Comment on above: Order Comment: Comme nts To Phleb: pre-op in PAT Performed By: #### L 200.22029 #### Test performed at: [address] [address] Platelet mean volume (Bld) [Entitic vol] 10.5 fL Normal 8.7-12.4 [facility] Comment on above: Order Comment: Comme nts To Phleb: pre-op in PAT Performed By: #### L 200.04277 #### Test performed at: [address] [address] Platelets (Bld) [#/Vol] 242 10*3/uL Normal 140-440 [facility] Comment on above: Order Comment: Comme nts To Phleb: pre-op in PAT Performed By: #### L 200.56911 #### Test performed at: [address] [address] RBC (Bld) [#/Vol] 3.49 10*6/uL Low 3.5-5.5 [facility] Comment on above: Order Comment: Comme nts To Phleb: pre-op in PAT Performed By: #### L 200.96180 #### Test performed at: [address] [address] WBC (Bld) [#/Vol] 18.8 10*3/uL High 3.9-11.0 [facility] Comment on above: Order Comment: Comme nts To Phleb: pre-op in PAT Performed By: #### L 200.91616 #### Test performed at: [address] [address] Erythrocyte distribution width (RBC) [Ratio] 12.6 % Normal 11.5-14.5 [facility] Comment on above: Order Comment: CONSE RVATION Performed By: #### L 200.65670, L200.32272 ####Test performed at: [address] [address] Hematocrit (Bld) [Volume fraction] 29.4 % Low 39.0-55.0 [facility] Comment on above: Order Comment: CONSE RVATION Performed By: #### L 200.27116, L200.80664 ####Test performed at: [address] [address] Hemoglobin (Bld) [Mass/Vol] 9.7 g/dL Low 14.0-16.5 [facility] Comment on above: Order Comment: CONSE RVATION Result Comment: Delt a: 13.5 on 01/26/20-1526 Performed By: #### L 200.45579, L200.41126 ####Test performed at: [address] [address] MCH (RBC) [Entitic mass] 31.2 pg Normal 25.4-34.6 [facility] Comment on above: Order Comment: CONSE RVATION Performed By: #### L 200.14909, L200.99044 ####Test performed at: [address] [address] MCHC (RBC) [Mass/Vol] 33.0 g/dL Normal 31.5-36.5 [facility] Comment on above: Order Comment: CONSE RVATION Performed By: #### L 200.07723, L200.08057 ####Test performed at: [address] [address] MCV (RBC) [Entitic vol] 94.5 fL Normal 80.0-100.0 [facility] Comment on above: Order Comment: CONSE RVATION Performed By: #### L 200.35405, L200.59800 ####Test performed at: [address] [address] NRBC # 0.000 K/uL Normal 0-0.012 [facility] Comment on above: Order Comment: CONSE RVATION Performed By: #### L 200.64339, L200.18921 ####Test performed at: [place] [address] NRBC % 0.0 /100 WBC Normal 0-0.2 [facility] Comment on above: Order Comment: CONSE RVATION Performed By: #### L 200.73035, L200.55443 ####Test performed at: [address] [address] Platelet mean volume (Bld) [Entitic vol] 10.6 fL Normal 8.7-12.4 [facility] Comment on above: Order Comment: CONSE RVATION Performed By: #### L 200.74685, L200.01354 ####Test performed at: [address] [address] Platelets (Bld) [#/Vol] 210 10*3/uL Normal 140-440 [facility] Comment on above: Order Comment: CONSE RVATION Performed By: #### L 200.82897, L200.70314 ####Test performed at: [address] [address] RBC (Bld) [#/Vol] 3.11 10*6/uL Low 3.5-5.5 [facility] Comment on above: Order Comment: CONSE RVATION Performed By: #### L 200.75117, L200.28358 ####Test performed at: [address] [address] WBC (Bld) [#/Vol] 16.9 10*3/uL High 3.9-11.0 [facility] Comment on above: Order Comment: CONSE RVATION Performed By: #### L 200.97499, L200.16740 ####Test performed at: [address] [address] EST. CREAT CLRon 03-24-2020 Creatinine [Mass/Vol] 95.229 ML/MIN Normal [facility] Comment on above: Order Comment: Comme nts To Phleb: pre-op in PAT Result Comment: This result is an ESTIMATED blood creatinine clearance value which is derived from the patient age, sex, weight, and previous blood creatinine result. Performed By: #### L 200.67930 #### Test performed at: [place] [id number] GFR ESTIMATEon 03-24-2020 IF AMER > 60 Normal > 60 [facility] Comment on above: Order Comment: Comme [...] for clinical interpretation. Performed By: #### L 200.41947 #### Test performed at: [address] [address] IF non-AFR AMER 53 Low > 60 [facility] Comment on above: Order Comment: Comme nts To Phleb: pre-op in PAT Performed By: #### L 200.87755 #### Test performed at: [place] [address] GLUCOSE METERon 03-24-2020 Glucose [Mass/Vol] 262 mg/dL High 70-99 [facility] Comment on above: Order Comment: Comme nts To Phleb: pre-op in PAT Result Comment: Fast ing GLUCOSE reference range has been updated per (ADA) [place] [employer]'s recommendation. 05/12/2018 Performed By: #### L 200.71582 #### Test performed at: [address] [place] [address] Glucose [Mass/Vol] 146 mg/dL High 70-99 [facility] Comment on above: Order Comment: Comme nts To Phleb: pre-op in PAT Result Comment: Fast ing GLUCOSE reference range has been updated per (ADA) [place] [employer]'s recommendation. 05/12/2018 Performed By: #### L 200.63274 #### Test performed at: [address] [place] [address] Internal Med Progress Noteon 03-24-2020 Internal Med Progress Note [facility] Patient: JEFFERSON CARCAMO [address] [place] [address] MR#: [id number] PROGRESS NOTE - Internal Medicine : 64 [...] Result Date Time Pulse Ox 100 03/23 2299 B/P 133/67 03/23 2299 O2 Delivery ROOM AIR 03/23 2299 Temp 36.4 03/23 2299 Pulse 95 03/23 2299 Resp 16 03/23 2299 O2 Flow Rate 2 03/23 1818 Intake AND Output Verdana 4d 03/24 230 Intake Total 2235 Output Total 900 [...] Other Physical Findings No drain, no shin 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 Reasons/Tx for Con't stay Post-op Assessment #s/p Left total hip replacement- POD 1 - VSS - Denies any complaints - No drain or shin - Encourage incentive spirometry - PT/OT on board #Acute blood loss anemia - Hb 13.5 ->9.7 - EBL 310 cc intra-operatively - Continue to monitor #Leukocytosis possibly due to pre-op radiation - Afebrile - SIRS criteria / - WBC 16.9 ->18.8 with 19% ->12% bands - CXR showed no active disease - Ordered UA #Large granular leukemia under remission - As per patient outbound sales agent suggested monitoring only #h/o DVT - Denies [...] RES, Katarzyn a MD 03/26/20 1229 Normal [facility] MANUAL DIFFon 03-24-2020 BAND 12 % High 0-5 [facility] Comment on above: Order Comment: Comme nts To Phleb: pre-op in PAT Performed By: #### L 200.29880 #### Test performed at: [address] [address] Lymphocytes/100 WBC (Bld) 16 % Low 20-50 [facility] Comment on above: Order Comment: Comme nts To Phleb: pre-op in PAT Performed By: #### L 200.21245 #### Test performed at: [address] [address] MONOCYTE 6 % Normal 2-12 [facility] Comment on above: Order Comment: Comme nts To Phleb: pre-op in PAT Performed By: #### L 200.84912 #### Test performed at: [address] [address] NEUTROPHIL 66 % Normal 40-80 [facility] Comment on above: Order Comment: Comme nts To Phleb: pre-op in PAT Performed By: #### L 200.01656 #### Test performed at: [address] [address] Platelets (Bld) [#/Vol] ADEQ Normal [facility] Comment on above: Order Comment: Comme nts To Phleb: pre-op in PAT Performed By: #### L 200.57817 #### Test performed at: [address] [address] POLYCHROMASIA OCC Normal [facility] Comment on above: Order Comment: Comme nts To Phleb: pre-op in PAT Performed By: #### L 200.95935 #### Test performed at: [address] [address] RLYMPH OCC Normal [facility] Comment on above: Order Comment: Comme nts To Phleb: pre-op in PAT Performed By: #### L 200.71842 #### Test performed at: [address] [address] TOTAL CELLS 100 #CELLS Normal [facility] Comment on above: Order Comment: Comme nts To Phleb: pre-op in PAT Performed By: #### L 200.99301 #### Test performed at: [address] [address] BAND 19 % High 0-5 [facility] Comment on above: Order Comment: CONSE RVATION Performed By: #### L 200.94318, L200.57692 ####Test performed at: [address] [address] Basophils/100 WBC (Bld) 1 % Normal 0-1 [facility] Comment on above: Order Comment: CONSE RVATION Performed By: #### L 200.39175, L200.47060 ####Test performed at: [address] [address] Lymphocytes/100 WBC (Bld) 21 % Normal 20-50 [facility] Comment on above: Order Comment: CONSE RVATION Performed By: #### L 200.85718, L200.12207 ####Test performed at: [address] [address] MONOCYTE 6 % Normal 2-12 [facility] Comment on above: Order Comment: CONSE RVATION Performed By: #### L 200.97111, L200.41555 ####Test performed at: [address] [address] NEUTROPHIL 53 % Normal 40-80 [facility] Comment on above: Order Comment: CONSE RVATION Performed By: #### L 200.62692, L200.66853 ####Test performed at: [address] [address] Platelets (Bld) [#/Vol] ADEQ Normal [facility] Comment on above: Order Comment: CONSE RVATION Performed By: #### L 200.50515, L200.29247 ####Test performed at: [address] [address] POLYCHROMASIA OCC Normal [facility] Comment on above: Order Comment: CONSE RVATION Performed By: #### L 200.97145, L200.96214 ####Test performed at: [address] [address] TOTAL CELLS 100 #CELLS Normal [facility] Comment on above: Order Comment: CONSE RVATION Performed By: #### L 200.02514, L200.74657 ####Test performed at: [address] [address] OT Therapy Recommendationson 03-24-2020 OT Therapy Recommendations [facility] Patient: JEFFERSON CARCAMO [address] [place] [address] MR#: [id number] OT THERAPY RECOMMENDATIONS : 64 Service Date: 03/24/20 1151 See Addendum Verdana 4d Therapy Recommendations Therapy Recommendations Recommendations HOME WITH FAMILY ASSISTANCE ADDENDUM: CRISTIANA COPPOLA on 03/24/20 at 1153 Addendum Add AND [facility] SERVICES Electronically Signed eSign Date and Time Cristiana Coppola OT 03/24/20 1153 Normal [facility] Orthopedic Progress Noteon 0 03-24-2020 Orthopedic Progress Note [facility] Patient: JEFFERSON CARCAMO [address] [place] [address] MR#: [id number] PROGRESS NOTE - Orthopedic : 64 Service [...] Pulse 93 03/24 0953 Pulse Ox 100 03/24 09 O2 Delivery ROOM AIR 03/24 09 Temp 36.4 03/24 0945 Resp 20 03/24 0945 O2 Flow Rate 2 03/23 1818 Intake [...] Med Reasons/Tx for Con't stay dc home [facility] Assessment plan dc home [facility] pain medicaiton is dvt prophilaxis mobilize cryotherapy Electronically Signed eSign Date and Time SERGIO NGO 03/24/20 1237 Dinesh Huffman MD Normal [facility] PORTABLE CHESTon 03-24-2020 PORTABLE CHEST STUDY: PORTABLE CHEST; 03/24/2020 12:01 pm INDICATION: Leukocytosis. COMPARISON: 01/26/2020 ACCESSION NUMBER(S): [id number] ORDERING CLINICIAN: Mayur Leo FINDINGS: Unchanged blunting of the right costophrenic angle suggestive of scarring. Right pleural calcifications are again noted. No definite new infiltrate or pleural effusion. Unremarkable cardiomediastinal silhouette. No pulmonary vascular congestion. IMPRESSION: No new active disease in the chest. Normal [facility] Transfer From ([facility])on 03-24-2020 Transfer From ([facility]) From: [facility] Patient: JEFFERSON CARCAMO [address] [place] [address] Birthdate: [birth year] Age: 59 Attending Physician: Dinesh [...] RESISTANT ORGANISM No Date of Influenza Vaccine 61396 Physician Orders Prescriptions/Discharg e Meds Continue taking these medications: Glimepiride * (Amaryl *) 4 MG TABLET 4 MILLIGRAM ORAL EVERY DAY Comments: TAKE TOMORROW Allopurinol * (Zyloprim *) 300 MG TABLET 300 MILLIGRAM ORAL HS Comments: TAKE TONIGHT Diclofenac Sodium * (Voltaren *) 75 MG TABLET.DR 75 MILLIGRAM ORAL 2 TIMES DAILY WITH MEALS Lisinopril 20mg AND HCTZ 25mg * (Zestoretic 20mg/25mg *) 1 EACH TABLET 1 EACH ORAL Every Day @ 12 Noon Comments: TAKE TOMORROW Metformin HCl * (Glucophage *) 1,000 MG TABLET 500 MILLIGRAM ORAL 2 TIMES DAILY Comments: TAKE THIS EVENING Metoprolol Succinate* (Toprol XL*) 25 MG TABLET.DR 25 MILLIGRAM ORAL EVERY DAY Comments: TAKE [...] reflection of the individuals condition. HOME WITH [facility] Electronically Signed eSign Date and Time SERGIO NGO 03/24/20 1442 Dinesh Huffman MD Normal [facility] z OT Inpatient Evaluationon 03-24-2020 z OT Inpatient Evaluation [facility] Patient: JEFFERSON CARCAMO [address] [place] [address] MR#: [id number] OT INPATIENT EVALUATION : 64 Inpatient OT HPI Date of Service 03/24/20 Time In: 0845 Time Out: 15 Total Treatment Time (Mins) 30 Visit Reason OTHER SECONDARY OA BOTH HIPS Surgery Type/Date POD#1Surgery Type: L ИВАН Anterior Approach Referral Date 03/23/20 Tx Diagnosis: PAIN IN L LEG Insurance Name [facility] Hospital Course Pt is a 59 year [...] Toilet, Long Handled Sponge, Long Shoe Horn, Pot Runner, Shower Chair Bedroom Location 1st Floor Bathroom Location 1st Floor Shower Tub Tasks Prior to Admission Laundry, Cooking, Cleaning, Shopping, Driving Transportation Method Patient Drives, Family Drives Functional Level DISABILITY ATTORNEY PT WAS MODIND WITH ADLS AND IADLS. [...] Yes Electronically Signed eSign Date and Time CherylCristiana chavarria OT 03/24/20 1150 Normal [facility] z PT Inpatient Progress Note on 03-24-2020 z PT Inpatient Progress Note [facility] Patient: JEFFERSON CARCAMO [address] [place] [address] MR#: [id number] PT INPATIENT PROGRESS NOTE : 64 Service [...] Signed eSign Date and Time Jaja Pizano DISABILITY ATTORNEY 03/24/20 1417 Adrian Andino PT Normal [facility] GLUCOSE METERon 03-23-2020 Glucose [Mass/Vol] 224 mg/dL High 70-99 [facility] Comment on above: Order Comment: CONSE RVATION Result Comment: Fast ing GLUCOSE reference range has been updated per (ADA) [place] [employer]'s recommendation. 05/12/2018 Performed By: #### L 500.99060 ####Test performed at: [place] [address] Glucose [Mass/Vol] 214 mg/dL High 70-99 [facility] Comment on above: Order Comment: CONSE RVATION Result Comment: Fast ing GLUCOSE reference range has been updated per (ADA) [place] [employer]'s recommendation. 05/12/2018 Performed By: #### L 500.92700 ####Test performed at: [place] [address] Glucose [Mass/Vol] 170 mg/dL High 70-99 [facility] Comment on above: Order Comment: CONSE RVATION Result Comment: Fast ing GLUCOSE reference range has been updated per (ADA) [place] [employer]'s recommendation. 05/12/2018 Performed By: #### L 500.43921 #### Test performed at: [place] [address] Internal Medicine Consultati onon 03-23-2020 Internal Medicine Consultation [facility] Patient: JEFFERSON CARCAMO [address] [place] [address] MR#: [id number] CONSULTATION - Internal Medicine : 64 Service [...] * (Voltaren *) 75 MG TABLET. 75 MG PO BIDWM ankylosing spondilitis, Ref [...] results of Cranial Nerve Asmt for all pts. Extremity Extremity Sensation intact, No tenderness, [...] Date and Time Aggarwal III,Raffy Res 03/24/20 1247 Camille Jones MD [facility] OPERATIVE REPORTon OPERATIVE REPORT NAME: JEFFERSON CARCAMO MR#: [id number] SURGEON: Dinesh Huffman MD DATE OF SURGERY: 03/23/2020 OPERATIVE REPORT PREOPERATIVE DIAGNOSIS: Severe arthritic involvement, left hip joint. Patient with underlying ankylosing spondylitis. POSTOPERATIVE DIAGNOSIS: Severe arthritic involvement, left hip joint. Patient with underlying ankylosing spondylitis. OPERATION PERFORMED: Left total hip replacement, uncemented, direct anterior approach. TRACTOR OPERATOR BATTERY: Kelby Bishop. ANESTHESIA: General. FINDINGS: Patient is [...] osteopenic. Replacement was performed using components from [employer]. The 52 mm outer diameter shell was [...] anesthesia and patient positioned supine on the [place]wood table, the left hip was prepped and draped for total hip replacement through a direct anterior approach. A formal time-out was performed and agreed to by all parties. Once agreed to, the hip [facility] PT NAME: JEFFERSON CARCAMO MR#: [id number] [address] [place] [address] ACCT: [id number] : 64 OPERATIVE REPORT was approached starting [...] brought out of adduction and extension with [facility] PT NAME: JEFFERSON CARCAMO MR#: [id number] [address] [place] [address] ACCT: [id number] : 64 OPERATIVE REPORT traction and internal [...] tolerated the procedure well. DINESH HUFFMAN MD [facility][id number] E/S: Dinesh Huffman MD 03/24/20 1033 Electronically Signed [facility] PT NAME: JEFFERSON CARCAMO MR#: [id number] [address] [place] [address] ACCT: [id number] : 64 OPERATIVE REPORT Normal [facility] PELVIS 1 OR 2 VIEWSon 2020 PELVIS 1 OR 2 VIEWS STUDY: PELVIS 1 OR 2 VIEWS; 03/23/2020 4:35 pm INDICATION: S/P LEFT TOTAL HIP REPLACEMENT. COMPARISON: None. ACCESSION NUMBER(S): [id number] ORDERING CLINICIAN: Annie Aguilar FINDINGS: Left hip arthroplasty in anatomic alignment. Postoperative soft tissue gas. Upper pelvis not imaged. IMPRESSION: New left hip arthroplasty in anatomic alignment. Normal [facility] PT Therapy Recommendationson 03-23-2020 aPTT Coag (Nicole) [Time] [facility] Patient: JEFFERSON CARCAMO [address] [place], [place] [id number] MR#: [id number] PT THERAPY RECOMMENDATIONS : 64 Service Date: 03/23/201846 Therapy Recommendations Therapy Recommendations Recommendations Physical therapy evaluation completed. Will follow per acute PT plan of care BID, PRN. Rec D/C HHPT. VILMA Mendez Electronically Signed eSign Date and Time Antony Maynard PT Student 03/23/201846 Adrian Andino PT 03/23/201847 [facility] Primary Residenton Primary Resident [facility] Pt Name: JEFFERSON CARCAMO MR#: [id number] [address] [place] [address] ACCT: [id number] [place] [address] : 64 Service Date: 03/23/20 1626 Primary Resident/Call Primary Resident: Ngoc Leo After Hours Call: [phone] Red Team Electronically Signed eSign Date and Time Basil ARENAS,Raffy Res 03/23/20 162 Normal [facility] SURGon 03-23-2020 SURG [facility] Comment on above: Result Comment: RUN DATE: 03/28/20 [facility] LAB *LIVE* PAGE 1RUN TIME: 1541 Specimen InquiryRUN USER: [employer] Name: JEFFERSON CARCAMO : 64 Sex:M Attend Dr: Dinesh Huffman [facility]#: [id number] Unit#: [id number] Status: DIS IN Location: Anthony GDonovan618-01 Received: 03/24/203 Status: CLAUDIA Santoro#: [id number]#: [id number] Collected: 03/23/20- [facility] Dr: Dinesh Huffman MDTISSUES: A. LEFT HIP BONE & TISSUE MICROSCOPIC EXAM: Two H&E stained slides including sections of decalcified tissue are examined. DIAGNOSIS: BONE AND TISSUE FROM LEFT HIP, TOTAL HIP REPLACEMENT: - DEGENERATIVE JOINT DISEASE Signed Signature on File TOMA STRINGER 03/28/20 1541 [facility] Name: JEFFERSON CARCAMO [facility] Hosp Num: [id number] A [employer] [facility] Age / Sex: 59/M [facility] Physician: Dinesh Huffman MD [address] [place] [address] Location: SPINE/ORTHO UNIT END OF REPORT Performed By: #### L 500.19306, L500.66002 #### Test performed at: [address] 03-23-2020 ABO and Rh group Nom (Bld) A POSITIVE Normal [facility] Comment on above: Order Comment: CONSE RVATION CBN: NO Commerce: MAIN Transfusion Status: CONSERVATION Blood Bank service requested: TYPE AND SCREEN Comments To Phleb: PATIENT IN SDS Performed By: #### B 100.0200 #### Test performed at: [place] [address] [place] [address] z PT Inpatient Evaluationon 03-23-2020 z PT Inpatient Evaluation [facility] Patient: JEFFERSON CARCAMO [address] [place] [id number] MR#: [id number] PT INPATIENT EVALUATION : 64 Service Date: 03/23/201827 Inpatient PT HPI Date of Service 03/23/20 Time In: 180 Time Out: 1824 Total Treatment Time (Mins) 16 Room Number 618 Visit Reason OTHER SECONDARY OA BOTH HIPS Surgery Type: L ИВАН Anterior Approach Surgery Date: 03/23/20 Referral Date 03/23/20 Tx Diagnosis: UNSTEADINESS ON FEET Insurance Name [facility] Hospital Course Pt is a 59 year [...] States ground level setup. 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 Objective Pain Pain Scale 0 [...] 1847 Adrian Andino PT 03/23/20 1850 Normal [facility] CORONAVIRUSon 03-20-2020 CORONAVIRUS Methodology: PCR Negative results [...] available on the FDA website: https://www.fda.gov/Me dicalDevices/Safety/ EmergencySituations/ x998249.htm COVID-19 Negative for COVID-19 (SARS-CoV-2 RNA) Normal [facility] Comment on above: Order Comment: CBN: YES Commerce: MAIN COVID Testing: PRE-OP/PROCEDURE SCREEN Comment: 03/23 AGE at Spec LIAM 59 Report age at specimen LIAM? Y First test: UNKNOWN Employed in Healthcare: NO Symptomatic as defined by CDC: NO Hospitalized for COVID-19? NO ICU: NO Resident in a Congregated Care Setting: NO Order Date: 03/20/20 : Not Performed By: #### M 400.75047 #### Test performed at: [place] [address] GLYCO HEMOon 01-27-2020 HbA1c (Bld) [Mass fraction] 6.9 % Normal [facility] Comment on above: Order Comment: Comme nts To Phleb: pre-op in PAT Result Comment: Gabrielle geller Diagnosis HbA1c (%) --------- Diabetic > 6.4 Prediabetes 5.7-6.4 Normal < 5.7 Performed By: #### L 500.59928 #### Test performed at: [place] [address] CBC W/DIFFon 01-26-2020 BASO ABS 0.1 K/uL Normal 0.0-0.2 [facility] Comment on above: Order Comment: Comme nts To Phleb: pre-op in PAT Performed By: #### L 200.66704 #### Test performed at: [place] [address] Basophils/100 WBC (Bld) 0.6 % Normal [facility] Comment on above: Order Comment: Comme nts To Phleb: pre-op in PAT Performed By: #### L 200.16463 #### Test performed at: [place] [address] EOS ABS 0.3 K/uL Normal 0.0-0.5 [facility] Comment on above: Order Comment: Comme nts To Phleb: pre-op in PAT Performed By: #### L 200.80246 #### Test performed at: [address] [address] Eosinophils/100 WBC (Bld) 2.4 % Normal [facility] Comment on above: Order Comment: Comme nts To Phleb: pre-op in PAT Performed By: #### L 200.23247 #### Test performed at: [address] [address] Erythrocyte distribution width (RBC) [Ratio] 12.8 % Normal 11.5-14.5 [facility] Comment on above: Order Comment: Comme nts To Phleb: pre-op in PAT Performed By: #### L 200.38042 #### Test performed at: [address] [address] Hematocrit (Bld) [Volume fraction] 40.5 % Normal 39.0-55.0 [facility] Comment on above: Order Comment: Comme nts To Phleb: pre-op in PAT Performed By: #### L 200.18927 #### Test performed at: [address] [address] Hemoglobin (Bld) [Mass/Vol] 13.5 g/dL Low 14.0-16.5 [facility] Comment on above: Order Comment: Comme nts To Phleb: pre-op in PAT Performed By: #### L 200.80841 #### Test performed at: [address] [address] IG % 0.3 % Normal [facility] Comment on above: Order Comment: Comme nts To Phleb: pre-op in PAT Performed By: #### L 200.42210 #### Test performed at: [address] [place] [address] IG ABS 0.04 K/uL Normal 0-0.05 [facility] Comment on above: Order Comment: Comme nts To Phleb: pre-op in PAT Performed By: #### L 200.45627 #### Test performed at: [address] [address] Lymphocytes (Bld) [#/Vol] 3.6 10*3/uL High 1.2-3.5 [facility] Comment on above: Order Comment: Comme nts To Phleb: pre-op in PAT Performed By: #### L 200.18451 #### Test performed at: [address] [address] Lymphocytes/100 WBC (Bld) 25.6 % Normal [facility] Comment on above: Order Comment: Comme nts To Phleb: pre-op in PAT Performed By: #### L 200.90313 #### Test performed at: [address] [address] MCH (RBC) [Entitic mass] 31.5 pg Normal 25.4-34.6 [facility] Comment on above: Order Comment: Comme nts To Phleb: pre-op in PAT Performed By: #### L 200.39346 #### Test performed at: [address] [address] MCHC (RBC) [Mass/Vol] 33.3 g/dL Normal 31.5-36.5 [facility] Comment on above: Order Comment: Comme nts To Phleb: pre-op in PAT Performed By: #### L 200.73264 #### Test performed at: [address] [address] MCV (RBC) [Entitic vol] 94.6 fL Normal 80.0-100.0 [facility] Comment on above: Order Comment: Comme nts To Phleb: pre-op in PAT Performed By: #### L 200.61971 #### Test performed at: [address] [address] MONO ABS 1.1 K/uL High 0.0-1.0 [facility] Comment on above: Order Comment: Comme nts To Phleb: pre-op in PAT Performed By: #### L 200.32381 #### Test performed at: [address] [address] Monocytes/100 WBC (Bld) 8.1 % Normal [facility] Comment on above: Order Comment: Comme nts To Phleb: pre-op in PAT Performed By: #### L 200.26681 #### Test performed at: [address] [address] NEUTROPHIL ABS 8.8 K/uL High 1.4-6.6 [facility] Comment on above: Order Comment: Comme nts To Phleb: pre-op in PAT Performed By: #### L 200.14533 #### Test performed at: [address] [address] Neutrophils/100 WBC (Bld) 63.0 % Normal [facility] Comment on above: Order Comment: Comme nts To Phleb: pre-op in PAT Performed By: #### L 200.71308 #### Test performed at: [address] [address] NRBC # 0.000 K/uL Normal 0-0.012 [facility] Comment on above: Order Comment: Comme nts To Phleb: pre-op in PAT Performed By: #### L 200.24824 #### Test performed at: [address] [address] NRBC % 0.0 /100 WBC Normal 0-0.2 [facility] Comment on above: Order Comment: Comme nts To Phleb: pre-op in PAT Performed By: #### L 200.55260 #### Test performed at: [address] [address] Platelet mean volume (Bld) [Entitic vol] 10.3 fL Normal 8.7-12.4 [facility] Comment on above: Order Comment: Comme nts To Phleb: pre-op in PAT Performed By: #### L 200.82509 #### Test performed at: [address] [address] Platelets (Bld) [#/Vol] 302 10*3/uL Normal 140-440 [facility] Comment on above: Order Comment: Comme nts To Phleb: pre-op in PAT Performed By: #### L 200.57170 #### Test performed at: [address] [address] RBC (Bld) [#/Vol] 4.28 10*6/uL Normal 3.5-5.5 [facility] Comment on above: Order Comment: Comme nts To Phleb: pre-op in PAT Performed By: #### L 200.37155 #### Test performed at: [address] [address] WBC (Bld) [#/Vol] 13.9 10*3/uL High 3.9-11.0 [facility] Comment on above: Order Comment: Comme nts To Phleb: pre-op in PAT Performed By: #### L 200.37129 #### Test performed at: [address] [address] CHEST PA/AP & LATERAL OR 2 V WSon 01-26-2020 CHEST PA/AP & LATERAL OR 2 VWS STUDY: CHEST PA/AP LATERAL OR 2 VWS; 01/26/2020 3:40 pm INDICATION: pre-op in PAT per Surgeon request. COMPARISON: 08/11/2012 ACCESSION NUMBER(S): [id number] ORDERING CLINICIAN: Trisha Quiñones FINDINGS: Unchanged blunting of the right costophrenic angle relating to scarring given the chronicity. Right pleural calcifications are not significantly changed. No focal infiltrate. No apparent pleural effusion. Normal heart size, mediastinum, michelle, and pulmonary vasculature. Thoracic kyphosis with mild degenerative changes. IMPRESSION: No active disease in the chest. Chronic changes of the right lung similar prior exam. Normal [facility] COMP META PANELon 01-26-2020 Albumin [Mass/Vol] 3.9 g/dL Normal 3.4-5.0 [facility] Comment on above: Order Comment: Comme nts To Phleb: pre-op in PAT Performed By: #### L 500.58739, L500.08017 #### Test performed at: [address] [address] ALK PHOS TOTAL 95 U/L Normal 45-117 [facility] Comment on above: Order Comment: Comme nts To Phleb: pre-op in PAT Performed By: #### L 500.77803, L500.79677 #### Test performed at: [address] [address] ALT [Catalytic activity/Vol] 64 U/L High 13-61 [facility] Comment on above: Order Comment: Comme nts To Phleb: pre-op in PAT Performed By: #### L 500.10415, L500.40124 #### Test performed at: [address] [address] AST [Catalytic activity/Vol] 34 U/L Normal 15-37 [facility] Comment on above: Order Comment: Comme nts To Phleb: pre-op in PAT Performed By: #### L 500.02635, L500.91904 #### Test performed at: [address] [address] BILI TOTAL 0.6 mg/dL Normal 0.2-1.0 [facility] Comment on above: Order Comment: Comme nts To Phleb: pre-op in PAT Performed By: #### L 500.31846, L500.51565 #### Test performed at: [address] [address] Calcium [Mass/Vol] 9.3 mg/dL Normal 8.5-10.1 [facility] Comment on above: Order Comment: Comme nts To Phleb: pre-op in PAT Performed By: #### L 500.78953, L500.10788 #### Test performed at: [address] [address] Chloride [Moles/Vol] 107 mmol/L Normal 98-107 [facility] Comment on above: Order Comment: Comme nts To Phleb: pre-op in PAT Performed By: #### L 500.20616, L500.33751 #### Test performed at: [address] [address] CO2 [Moles/Vol] 28 mmol/L Normal 21-32 [facility] Comment on above: Order Comment: Comme nts To Phleb: pre-op in PAT Performed By: #### L 500.20988, L500.71757 #### Test performed at: [address] [address] Creatinine [Mass/Vol] 1.560 mg/dL High 0.700-1.300 [facility] Comment on above: Order Comment: Comme nts To Phleb: pre-op in PAT Performed By: #### L 500.58673, L500.51729 #### Test performed at: [address] [address] Glucose [Mass/Vol] 106 mg/dL High 70-99 [facility] Comment on above: Order Comment: Comme nts To Phleb: pre-op in PAT Result Comment: Fast ing GLUCOSE reference range has been updated per (ADA) [place] [employer]'s recommendation. 05/12/2018 Performed By: #### L 500.14943, L500.96586 #### Test performed at: [address] [address] Potassium [Moles/Vol] 4.6 mmol/L Normal 3.5-5.1 [facility] Comment on above: Order Comment: Comme nts To Phleb: pre-op in PAT Performed By: #### L 500.74581, L500.33720 #### Test performed at: [address] [address] Protein [Mass/Vol] 7.3 g/dL Normal 6.4-8.2 [facility] Comment on above: Order Comment: Comme nts To Phleb: pre-op in PAT Performed By: #### L 500.82065, L500.67721 #### Test performed at: [address] [address] Sodium [Moles/Vol] 141 mmol/L Normal 136-145 [facility] Comment on above: Order Comment: Comme nts To Phleb: pre-op in PAT Performed By: #### L 500.24518, L500.85880 #### Test performed at: [address] [address] Urea nitrogen [Mass/Vol] 28 mg/dL High 7-18 [facility] Comment on above: Order Comment: Comme nts To Phleb: pre-op in PAT Performed By: #### L 500.83798, L500.08298 #### Test performed at: [address] [address] GFR ESTIMATEon 01-26-2020 IF AMER 56 Low > 60 [facility] Comment on above: Order Comment: Comme [...] for clinical interpretation. Performed By: #### L 500.30869, L500.38724 #### Test performed at: [place] [address] IF non-AFR AMER 46 Low > 60 [facility] Comment on above: Order Comment: Comme nts To Phleb: pre-op in PAT Performed By: #### L 500.13441, L500.16608 #### Test performed at: [place] [address] H & Froy 01-26-2020 [facility] Patient: JEFFERSON CARCAMO [address] [place] [address] MR#: [id number] HISTORY and PHYSICAL : Service Date: 01/26/201529 See Addendum Verdana 4d HPI/Past Med Surg Hx/Fam Soc HPI Primary Care Physician [phone] Information Source PATIENT Language Barrier No Chief [...] SOB, CP, lower extremity edema, history of PA/stroke , or recent cough or cold. PMH/PSH [...] Chest pain, Pain on exertion, History of PA, Leg swelling. Gastrointestinal Denies: No Issues Noted, [...] B/P 124/74 01/25 1439 Temp 36.8 01/25 1439 Pulse 84 01/25 1439 Resp 17 01/25 [...] directed post- operatively. * Follow up with Msw/Primary Care as scheduled. 3. Diabetes * Continue to take medications as prescribed. * Follow up with Animal Husbandry Technician as scheduled. 4. Ankylosing Spondilitis: * Continue [...] Electronically Signed eSign Date and Time Trisha Quiñones PA 01/27/20 0856 Dinesh Huffman MD Normal [facility] TSPATon 01-26-2020 ABO and Rh group Nom (Bld) A POSITIVE Normal [facility] Comment on above: Order Comment: Trans fusion Status: CONSERVATION Blood Bank service requested: TYPE AND SCREEN Comments To Phleb: pre-op in PAT Performed By: #### B 100.0201 #### Test performed at: [place] [address] Otheron 12-06-2019 Interpreted by: EVON OTOOLE12/06/19 16:32MRN: [id number] Name: JEFFERSON CARCAMO STUDY:HIP, UNILATERAL W/PELVIS WHEN PERFORMED 2-3 VIEWS; Left; 12/06/20193:53 pm INDICATION:pain. ORDERING CLINICIAN:MARCO OTOOLE FINDINGS:AP lateral left hip x-ray shows advanced osteoarthritis uidj-up-uyzmhxdtcmzgk complete loss of joint space. No fracture no dislocationotherwise noted Electronically signed by: MARCO OTOOLE 12/06/19 16:32 [facility] Work Phone: Otheron 11-22-2019 Interpreted by: KULWANT VAUGHN11/23/19 17:25MRN: [id number] Name: JEFFERSON CARCAMO STUDY:HIP, UNILATERAL W/PELVIS WHEN PERFORMED 2-3 VIEWS INDICATION:M70.60 M25.552. COMPARISON:None ORDERING CLINICIAN:PHILLIP BERNAL FINDINGS:Advanced osteoarthritis left hip. No fracture seen. No osseous lesion. IMPRESSION:Advanced osteoarthritis left hip.Electronically signed by: BELLO VAUGHN 11/23/19 17:25 Normal [facility] [place] Work Phone: Comment on above: Ordering Provider: Lian BERNAL [address] IO Hgb A1Con 10-06-2019 HbA1c (Bld) [Mass fraction] 6.8 % 4.4-6.4% [facility] Work Phone: IO glucose, blood, finger st ick via hand held monitoron 10-06-2019 Glucose [Mass/Vol] 118 mg/dL [employer] Work Phone: Comment on above: patient last ate at 12:00 p.mpatient tests 1x a day Complete Blood Count + Diffe rentialon 09-20-2019 Basophils (Bld) [#/Vol] 0.03 {x10E9/L} See Below [facility] Work Phone: Comment on above: Reference Range: 0.0 0 - 0.10 Basophils/100 WBC (Bld) 0.2 % 0.0 - 2.0 [facility] Work Phone: Eosinophils (Bld) [#/Vol] 0.37 {x10E9/L} See Below [facility] Work Phone: Comment on above: Reference Range: 0.0 0 - 0.70 Eosinophils/100 WBC (Bld) 3.0 % 0.0 - 6.0 [facility] Work Phone: Erythrocyte distribution width (RBC) [Ratio] 12.7 % See Below [facility] Work Phone: Comment on above: Reference Range: 11. 5 - 14.5 Hematocrit (Bld) [Volume fraction] 38.1 % below low threshold See Below [employer] Work Phone: Comment on above: Reference Range: 41. 0 - 52.0 Hemoglobin (Bld) [Mass/Vol] 12.7 g/dL below low threshold See Below [facility] Work Phone: Comment on above: Reference Range: 13. 5 - 17.5 Lymphocytes (Bld) [#/Vol] 2.83 {x10E9/L} See Below [facility] Work Phone: Comment on above: Reference Range: 1.2 0 - 4.80 Lymphocytes/100 WBC (Bld) 23.2 % See Below [facility] Work Phone: Comment on above: Reference Range: 13. 0 - 44.0 MCHC (RBC) [Mass/Vol] 33.3 g/dL See Below [employer] Work Phone: Comment on above: Reference Range: 32. 0 - 36.0 MCV (RBC) [Entitic vol] 94 fL 80 - 100 [facility] Work Phone: Monocytes (Bld) [#/Vol] 1.00 {x10E9/L} See Below [facility] Work Phone: Comment on above: Reference Range: 0.1 0 - 1.00 Monocytes/100 WBC (Bld) 8.2 % 2.0 - 10.0 [facility] Work Phone: Neutrophils/100 WBC (Bld) 65.2 % See Below [facility] Work Phone: Comment on above: Reference Range: 40. 0 - 80.0 Platelets (Bld) [#/Vol] 263 {x10E9/L} 150 - 450 [facility] [facility] [employer] Work Phone: RBC (Bld) [#/Vol] 4.07 {x10E12/L} below low threshold See Below [employer] Work Phone: Comment on above: Reference Range: 4.5 0 - 5.90 WBC (Bld) [#/Vol] 12.2 {x10E9/L} above high threshold 4.4 - 11.3 [facility] Work Phone: Complete Blood Count + Differential 0.2 % 0.0 - 0.9 [facility] Work Phone: Comment on above: Immature Granulocyte Count (IG) includes promyelocytes, myelocytes and metamyelocytes but does not include bands. Percent differential counts (%) should be interpreted in the context of the absolute cell counts (cells/L). Complete Blood Count + Differential 7.94 {x10E9/L} above high threshold See Below [facility] Work Phone: Comment on above: Reference Range: 1.2 0 - 7.70 Ferritin, Serumon 09-20-2019 Ferritin [Mass/Vol] 153 ug/L 20 - 300 [facility] Work Phone: Metabolic Panelon 09-20-2019 ALP [Catalytic activity/Vol] 76 U/L 33 - 120 [facility] Work Phone: Anion gap [Moles/Vol] 12 mmol/L 10 - 20 [facility] Work Phone: Bilirubin [Mass/Vol] 0.5 mg/dL 0.0 - 1.2 [facility] Work Phone: Calcium [Mass/Vol] 10.0 mg/dL 8.6 - 10.3 [facility] Work Phone: Chloride [Moles/Vol] 105 mmol/L 98 - 107 [facility] Work Phone: CO2 [Moles/Vol] 26 mmol/L 21 - 32 [facility] Work Phone: Creatinine [Mass/Vol] 1.70 mg/dL above high threshold See Below [employer] Work Phone: Comment on above: Reference Range: 0.5 0 - 1.30 Glucose [Mass/Vol] 115 mg/dL above high threshold 74 - 99 [facility] Work Phone: Iron [Mass/Vol] 68 ug/dL 35 - 150 [facility] Work Phone: Potassium [Moles/Vol] 4.6 mmol/L 3.5 - 5.3 [employer] Work Phone: Protein [Mass/Vol] 7.0 g/dL 6.4 - 8.2 [employer] [facility] Work Phone: Sodium [Moles/Vol] 138 mmol/L 136 - 145 [employer] Work Phone: Urea nitrogen [Mass/Vol] 43 mg/dL above high threshold 6 - 23 [facility] Work Phone: Otheron 09-20-2019 Albumin BCP dye [Mass/Vol] 4.4 g/dL 3.4 - 5.0 [facility] Work Phone: ALT With P-5'-P [Catalytic activity/Vol] 39 U/L 10 - 52 [facility] Work Phone: Comment on above: Patients treated wit h Sulfasalazine may generate falsely decreased results for ALT. AST With P-5'-P [Catalytic activity/Vol] 31 U/L 9 - 39 [facility] Work Phone: Iron binding capacity [Mass/Vol] 278 ug/dL 240 - 445 [facility] Work Phone: 51 {mL/min/1.73m2} Abnormal >60 [employer] Work Phone: Comment on above: CALCULATIONS OF FARA MATED GFR ARE PERFORMED USING THE MDRD STUDY EQUATION FOR THE IDMS-TRACEABLE CREATININE METHODS. CLIN CHEM 2007;53:766-72 42 {mL/min/1.73m2} Abnormal >60 [employer] Work Phone: 24 % below low threshold 25 - 45 [facility] Work Phone: Creatine Kinase, Levelon CK [Catalytic activity/Vol] 391 U/L above high threshold 0 - 325 [facility] Work Phone: Comment on above: Ordering Provider: Lian BERNAL [address] Hemoglobin A1Con 02-05-2019 HbA1c (Bld) [Mass fraction] 140 {MG/DL} [facility] Work Phone: Comment on above: Ordering Provider: Lian BERNAL [address] HbA1c (Bld) [Mass fraction] 6.5 % [facility] Work Phone: Comment on above: Diagnosis of Diabete s-Adults Non-Diabetic: < or = 5.6% Increased risk for developing diabetes: 5.7-6.4% Diagnostic of diabetes: > or = 6.5%. Monitoring of Diabetes Age (y) Therapeutic Goal (%) Adults: >18 <7.0 Pediatrics: 13-18 <7.5 7-12 <8.0 0- 6 7.5-8.5 [place] [employer]. Diabetes Care 33(S1), Feb 2009. Ordering Provider: Lian BERNAL [address] Lipid Panelon 02-05-2019 Cholesterol [Mass/Vol] 133 mg/dL 0 - 199 [employer] Work Phone: Comment on above: . AGE [...] to Metamizole dosing. Ordering Provider: Lian BERNAL [address] Cholesterol in HDL [Mass/Vol] 37.0 mg/dL Abnormal [facility] Work Phone: Comment on above: . AGE VERY LOW LOW N ORMAL HIGH 0-19 Y < 35 < 40 40-45 ---- 20-24 Y ---- < 40 >45 ---- >24 Y ---- < 40 40-60 >60. Ordering Provider: Lian BERNAL [address] Cholesterol in LDL [Mass/Vol] 51 mg/dL 0 - 99 [employer] Phone: Comment on above: . NEAR BORD AGE ARACELI RABLE OPTIMAL HIGH HIGH VERY HIGH 0-19 Y 0 - 109 --- 110-129 >/= 130 ---- 20-24 Y 0 - 119 --- 120-159 >/= 160 ---- >24 Y 0 - 99 100-129 130-159 160-189 >/=190. Ordering Provider: Lian BERNAL [address] Cholesterol non HDL [Mass/Vol] 96 mg/dL [employer] Phone: Comment on above: AGE DESIRABLE BORDER LINE HIGH HIGH VERY HIGH 0-19 Y 0 - 119 120 - 144 >/= 145 >/= 160 20-24 Y 0 - 149 150 - 189 >/= 190 ---- >24 Y 30 MG/DL ABOVE LDL CHOLESTEROL GOAL. Ordering Provider: Lian BERNAL 92151 Cholesterol.total/Chol esterol in HDL [Mass ratio] 3.6 {ratio} [employer] Phone: Comment on above: REF VALUESDESIRABLE < 3.4HIGH RISK > 5.0 Ordering Provider: Lian BERNAL 86933 Triglyceride [Mass/Vol] 226 mg/dL above high threshold 0 - 149 [employer] Phone: Comment on above: . AGE DESIRABLE [...] to Metamizole dosing. Ordering Provider: Lian BERNAL 62107 Lipid Panel 45 mg/dL above high threshold 0 - 40 [facility] Work Phone: Comment on above: Ordering Provider: Lian Rosa12 Metabolic Panelon 02-05-2019 ALP [Catalytic activity/Vol] 79 U/L 33 - 120 [facility] Work Phone: Comment on above: Ordering Provider: Lian Rosa12 Anion gap [Moles/Vol] 13 mmol/L 10 - 20 [facility] Work Phone: Comment on above: Ordering Provider: Lian Rosa12 Bilirubin [Mass/Vol] 0.7 mg/dL 0.0 - 1.2 [facility] Work Phone: Comment on above: Ordering Provider: Lian BERNAL [address] Calcium [Mass/Vol] 9.2 mg/dL 8.6 - 10.3 [facility] Work Phone: Comment on above: Ordering Provider: Lian Rosa12 Chloride [Moles/Vol] 103 mmol/L 98 - 107 [facility] Work Phone: Comment on above: Ordering Provider: Lian BERNAL [address] CO2 [Moles/Vol] 27 mmol/L 21 - 32 [facility] Work Phone: Comment on above: Ordering Provider: Lian Rosa12 Creatinine [Mass/Vol] 1.57 mg/dL above high threshold See Below [facility] Work Phone: Comment on above: Reference Range: 0.5 0 - 1.30 Ordering Provider: Lian Rosa12 Glucose [Mass/Vol] 161 mg/dL above high threshold 74 - 99 [facility] Work Phone: Comment on above: Ordering Provider: Lian Rosa12 Potassium [Moles/Vol] 4.1 mmol/L 3.5 - 5.3 [facility] Work Phone: Comment on above: Ordering Provider: Lian Joaquin Protein [Mass/Vol] 7.0 g/dL 6.4 - 8.2 [facility] Work Phone: Comment on above: Ordering Provider: Lian Joaquin Sodium [Moles/Vol] 139 mmol/L 136 - 145 [facility] Work Phone: Comment on above: Ordering Provider: Lian Joaquin Urea nitrogen [Mass/Vol] 30 mg/dL above high threshold 6 - 23 [facility] Work Phone: Comment on above: Ordering Provider: Lian Joaquin Otheron 02-05-2019 Albumin BCP dye [Mass/Vol] 4.1 g/dL 3.4 - 5.0 [facility] Work Phone: Comment on above: Ordering Provider: Lian Joaquin Albumin Ql (U) 7.2 mg/L See Below [facility] Work Phone: Comment on above: Reference Range: Not Established Ordering Provider: Lian Joaquin ALT With P-5'-P [Catalytic activity/Vol] 33 U/L 10 - 52 [facility] Work Phone: Comment on above: Patients treated wit h Sulfasalazine may generate falsely decreased results for ALT. Ordering Provider: Lian Rosa12 AST With P-5'-P [Catalytic activity/Vol] 29 U/L 9 - 39 [facility] Work Phone: Comment on above: Ordering Provider: Lian Rosa12 46 {mL/min/1.73m2} Abnormal >60 [facility] Work Phone: Comment on above: Ordering Provider: Lian Rosa12 56 {mL/min/1.73m2} Abnormal >60 [facility] Work Phone: Comment on above: CALCULATIONS OF FARA MATED GFR ARE PERFORMED USING THE MDRD STUDY EQUATION FOR THE IDMS-TRACEABLE CREATININE METHODS. CLIN CHEM 2007;53:766-72 Ordering Provider: Lian Rosa12 Prostate Specific Antigenon 02-05-2019 Prostate specific Ag [Mass/Vol] 2.89 ng/mL See Below [facility] Work Phone: Comment on above: Reference Range: 0.0 0 - 4.00The FDA requires that the method used for PSA assay be reported to the physician. Values obtained with different assay methods must not be used interchangeably. This test was performed at [facility] ([facility]) using the ADVIASoNetJobaur PSA method, which is a sandwich immunoassay using chemiluminescence for quantitation. The assay is approvedfor measurement of prostate-specific antigen (PSA) in serum and may be used in conjunction with a digital rectalexamination in men 50 years and older as an aid in detection of prostate cancer. 1-Eayfy-grvcdpfyl inhibitors (e.g. Proscar, Finasteride, Avodart, Dutasteride and [place]) for the treatment of BPH have been shown to lower PSA levels by an average of 50% after 6 months of treatment. Ordering Provider: Lian BERNAL 22428 TSH - Thyroid Stimulating Ho agusone, Serumon 02-05-2019 TSH Qn 1.48 {mIU/L} See Below [facility] Work Phone: Comment on above: Reference Range: 0.4 4 - 3.98 TSH testing is performed using different testing methodology at [facility] than at other [facility]. Direct result comparisons should only be made within the same method. Ordering Provider: Lian BERNAL 92077 Urinalysison 02-05-2019 Albumin/Creatinine DL <= 20 mg/L (U) [Mass ratio] 5.1 {ug/mg_crt} 0.0 - 30.0 [facility] Work Phone: Comment on above: Ordering Provider: Lian BERNAL 91810 Creatinine (U) [Mass/Vol] 140.0 mg/dL See Below [facility] Work Phone: Comment on above: Reference Range: 20. 0 - 370.0 Ordering Provider: Lian Rosa12 CBC PLATELET AUTO DIFFon BASO ABS 0.06 K/uL Normal 0-0.20 [facility] Comment on above: Performed By: #### L ELANA WILLSON #### [facility] [address] [place] [address] Basophils/100 WBC (Bld) 0.5 % Normal 0.0-2.0 [facility] Comment on above: Performed By: #### L IRONP LFER #### [facility] [address] [place] [address] EOS ABS 0.41 K/uL High 0.10-0.30 [facility] Comment on above: Performed By: #### L IRONP LFER #### [facility] [address] [place] [address] Eosinophils/100 WBC (Bld) 3.6 % Normal 0.0-6.0 [facility] Comment on above: Performed By: #### L ANAMIKA LFER #### [facility] [address] [place] [address] Erythrocyte distribution width Ratio (RBC) 12.8 % Normal 11.5-14.5 [facility] Comment on above: Performed By: #### L IRONMacie LFER #### [facility] [address] [place] [address] Hematocrit Volume Fraction (Bld) 40.9 % Normal 39.0-55.0 [facility] Comment on above: Performed By: #### L ANAMIKA LFER #### [facility] [address] [place] [address] Hemoglobin mass conc (Bld) 13.5 g/dL Low 14.0-16.5 [facility] Comment on above: Performed By: #### L IRONP LFER #### [facility] [address] [place] [address] IG % 0.1 % Normal 0.0-0.9 [facility] Comment on above: Performed By: #### L IRONP LFER #### [facility] [address] [place] [address] IG ABS 0.01 K/uL Normal [facility] Comment on above: Performed By: #### L IRONP, LFER #### [facility] [address] [place] [address] Lymphocytes #/vol (Bld) 4.06 10*3/uL High 1.2-4.0 [facility] Comment on above: Performed By: #### L IRONP, LFER #### [facility] [address] [place] [address] Lymphocytes/100 WBC (Bld) 35.7 % Normal 13.0-44.0 [facility] [place] Comment on above: Performed By: #### L IRONP, LFER #### [facility] [address] [place] [address] MCH Entitic mass (RBC) 30.6 pg Normal 25.4-34.6 [facility] Comment on above: Performed By: #### L IRONP, LFER #### [facility] [address] [place] [address] MCHC mass conc (RBC) 33.0 g/dL Normal 30.0-36.0 [facility] Comment on above: Performed By: #### L IRONP, LFER #### [facility] [address] [place] [address] MCV Entitic volume (RBC) 92.7 fL Normal 79.0-98.0 [facility] [place] Comment on above: Performed By: #### L IRONP, LFER #### [facility] [address] [place] [address] MONO ABS 1.05 K/uL High 0-1.00 [facility] [place] Comment on above: Performed By: #### L IRONP, LFER #### [facility] [address] [place] [address] Monocytes/100 WBC (Bld) 9.2 % Normal 2.0-10.0 [facility] [place] Comment on above: Performed By: #### L IRONP, LFER #### [facility] [address] [place] [address]18 NEUT ABS 5.79 K/uL Normal 1.9-8.0 [facility] [place] Comment on above: Performed By: #### L IRONP, LFER #### [facility] [address] [place] [address] Neutrophils/100 WBC (Bld) 50.9 % Normal 40.0-80.0 [facility] [place] Comment on above: Performed By: #### L IRONP, LFER #### [facility] [address] [place] [address] Platelet mean volume Entitic volume (Bld) 9.7 fL Normal 8.4-11.9 [facility] [place] Comment on above: Performed By: #### L IRONMacie LFER #### [facility] [address] [place] [address] Platelets #/vol (Bld) 273 10*3/uL Normal 140-440 [facility] Comment on above: Performed By: #### L IRONP LFER #### [facility] [address] [place], [place] [id number] RBC #/vol (Bld) 4.41 10*6/uL Normal 4.0-6.0 [facility] Comment on above: Performed By: #### L IRONMacie LFER #### [facility] [address] [place], [place] [phone] WBC #/vol (Bld) 11.4 10*3/uL High 3.9-11.0 [facility] Comment on above: Performed By: #### L IRONP LFER #### [facility] [address] [place], [place] [phone] COMP METABOLIC PANELon 03-24 ALK PHOS TOTAL 81 U/L Normal 45-117 [facility] [place] Comment on above: Order Comment: 2 OF 2 ORDERS Performed By: #### L IRONP, LFER #### [facility] [address] [place], [place] [phone] ALT enzyme act/vol 25 U/L Normal 10-52 [facility] [place] Comment on above: Order Comment: 2 OF 2 ORDERS Performed By: #### L IRONP, LFER #### [facility] [address] [place], [place] [phone] AST enzyme act/vol 24 U/L Normal 13-39 [facility] [place] Comment on above: Order Comment: 2 OF 2 ORDERS Performed By: #### L IRONP, LFER #### [facility] [address] [place], [place] [phone] BILI TOTAL 0.4 mg/dL Normal 0-1.2 [facility] [place] Comment on above: Order Comment: 2 OF 2 ORDERS Performed By: #### L IRONP, LFER #### [facility] [address] [place] [address] Protein mass conc 7.6 g/dL Normal 6.4-8.2 [facility] [place] Comment on above: Order Comment: 2 OF 2 ORDERS Performed By: #### L IRONP, LFER #### [facility] [address] [place] [address] Albumin mass conc 4.3 g/dL Normal 3.4-5.0 [facility] [place] Comment on above: Order Comment: 2 OF 2 ORDERS Performed By: #### L IRONP, LFER #### [facility] [address] [place] [address] Calcium mass conc 9.9 mg/dL Normal 8.6-10.3 [facility] [place] Comment on above: Order Comment: 2 OF 2 ORDERS Performed By: #### L IRONP, LFER #### [facility] [address] [place] [address] Chloride molar conc 101 mmol/L Normal 98-107 [facility] [place] Comment on above: Order Comment: 2 OF 2 ORDERS Performed By: #### L IRONP, LFER #### [facility] [address] [place] [address] 61844 CO2 molar conc 30 mmol/L Normal 21-32 [facility] [place] Comment on above: Order Comment: 2 OF 2 ORDERS Performed By: #### L IRONP, LFER #### [facility] [address] [place] [address]85 Creatinine mass conc 1.30 mg/dL Normal 0.5-1.30 [facility] Comment on above: Order Comment: 2 OF 2 ORDERS Result Comment: Antonette fied kinetic Sweta reaction - IDMS traceable Performed By: #### L IRONP, LFER #### [facility] [address] [place] [address] Glucose mass conc 101 mg/dL High 74-99 [facility] [place] Comment on above: Order Comment: 2 OF 2 ORDERS Performed By: #### L IRONP, LFER #### [facility] [id number] [place] [address] Potassium molar conc 4.2 mmol/L Normal 3.5-5.3 [facility] Comment on above: Order Comment: 2 OF 2 ORDERS Performed By: #### L IRONP, LFER #### [facility] [address] [place] [address] Sodium molar conc 137 mmol/L Normal 136-145 [facility] Comment on above: Order Comment: 2 OF 2 ORDERS Performed By: #### L IRONP, LFER #### [facility] [address] [place] [address] Urea nitrogen mass conc 31 mg/dL High 6-23 [facility] [place] Comment on above: Order Comment: 2 OF 2 ORDERS Performed By: #### L IRONP, LFER #### [facility] [address] [place] [address] GLOMERULAR FILTRATION RATE E STon 03-24-2018 GFR/1.73 sq M predicted among non-blacks MDRD vol rate/area (S/P/Bld) 61 mL/min/{1.73_m2} Normal > 60 [facility] [place] on above: Order Comment: 2 OF 2 ORDERS Performed By: #### L IRONP, LFER #### [facility] [address] [place] [address] IF AMER 71 mL/MIN Normal > 60 [facility] Comment on above: Order Comment: 2 OF 2 ORDERS Result Comment: Effe ctive 07/13/14: CKD-EPI equation / based on IDMS traceable creatinine. Continue to use the CREAT CLR-DOSE (Cockgroft-Gault) value for determining medication dose. Performed By: #### L IRONP, LFER #### [facility] [address] [place] [address] COMP METABOLIC PANELon 02-13 Albumin mass conc 3.9 g/dL Normal 3.4-5.0 [facility] [place] Comment on above: Order Comment: 2 OF 2 ORDERS Performed By: #### L IRONP, LFER #### [facility] [address] [place] [address] ALK PHOS TOTAL 66 U/L Normal 45-117 [facility] [place] Comment on above: Order Comment: 2 OF 2 ORDERS Performed By: #### L IRONP, LFER #### [facility] [address] [place] [address] ALT enzyme act/vol 20 U/L Normal 10-52 [facility] [place] Comment on above: Order Comment: 2 OF 2 ORDERS Performed By: #### L IRONP, LFER #### [facility] [address] [place] [address] AST enzyme act/vol 22 U/L Normal 13-39 [facility] [place] Comment on above: Order Comment: 2 OF 2 ORDERS Performed By: #### L IRONP, LFER #### [facility] [id number] [place] [address] BILI TOTAL 0.4 mg/dL Normal 0-1.2 [facility] [place] Comment on above: Order Comment: 2 OF 2 ORDERS Performed By: #### L IRONP, LFER #### [facility] [address] [place] [address]854 Calcium mass conc 9.1 mg/dL Normal 8.6-10.3 [facility] [place] Comment on above: Order Comment: 2 OF 2 ORDERS Performed By: #### L IRONP, LFER #### [facility] [address] [place] [address] 648[address] Chloride molar conc 103 mmol/L Normal 98-107 [facility] [place] Comment on above: Order Comment: 2 OF 2 ORDERS Performed By: #### L IRONP, LFER #### [facility] [address] [place] [address] 97991 CO2 molar conc 29 mmol/L Normal 21-32 [facility] [place] Comment on above: Order Comment: 2 OF 2 ORDERS Performed By: #### L IRONP, LFER #### [facility] [id number] [place] [address]30[address] Creatinine mass conc 1.43 mg/dL High 0.5-1.3 [facility] [place] Comment on above: Order Comment: 2 OF 2 ORDERS Performed By: #### L IRONP, LFER #### [facility] [id number] [place] [address] Glucose mass conc 146 mg/dL High 74-99 [facility] [place] Comment on above: Order Comment: 2 OF 2 ORDERS Performed By: #### L IRONP, LFER #### [facility] [address] [place] [address] 20866 Potassium molar conc 4.4 mmol/L Normal 3.5-5.3 [facility] [place] Comment on above: Order Comment: 2 OF 2 ORDERS Performed By: #### L IRONP, LFER #### [facility] [address] [place] [address] Protein mass conc 6.8 g/dL Normal 6.4-8.2 [facility] [place] Comment on above: Order Comment: 2 OF 2 ORDERS Performed By: #### L IRONP, LFER #### [facility] [address] [place] [address] Sodium molar conc 138 mmol/L Normal 136-145 [facility] [place] Comment on above: Order Comment: 2 OF 2 ORDERS Performed By: #### L IRONP, LFER #### [facility] [address] [place] [id number] Urea nitrogen mass conc 29 mg/dL High 6-23 [facility] [place] Comment on above: Order Comment: 2 OF 2 ORDERS Performed By: #### L IRONP, LFER #### [facility] [address] [place] [phone] GLOMERULAR FILTRATION RATE E STon 02-13-2018 GFR/1.73 sq M predicted among non-blacks MDRD vol rate/area (S/P/Bld) 55 mL/min/{1.73_m2} Low > 60 [facility] [place] on above: Order Comment: 2 OF 2 ORDERS Performed By: #### L IRONP, LFER #### [facility] [address] [place] [address] 40996 IF AMER 63 mL/MIN Normal > 60 [facility] Comment on above: Order Comment: 2 OF 2 ORDERS Result Comment: Effe ctive 07/13/14: CKD-EPI equation / based on IDMS traceable creatinine. Continue to use the CREAT CLR-DOSE (Cockgroft-Gault) value for determining medication dose. Performed By: #### L IRONP, LFER #### [facility] [id number] [place] [address] HEMOGLOBIN A1C GLYCOHGBon eAG 125.5 mg/dL Normal [facility] [place] Comment on above: Order Comment: 2 OF 2 ORDERS Result Comment: eAG: (Estimated Average Glucose) is a calculated value from HgbA1c and is career representative of the average blood glucose level in the last 2-3 month period. Performed By: #### L IRONP, LFER #### [facility] [id number] [place] [address] Hemoglobin A1c/Hemoglobin.total mass fraction (Bld) 6.0 % Normal 4.3-6.1 [facility] [place] Comment on above: Order Comment: 2 OF 2 ORDERS Performed By: #### L IRONP, LFER #### [facility] [address] [place] [address] LIPID PANELon 02-13-2018 Cholesterol in HDL mass conc 35.0 mg/dL Low >40 [facility] [place] Comment on above: Order Comment: 2 OF 2 ORDERS Performed By: #### L IRONP, LFER #### [facility] [address] [place] [address]275 Cholesterol in LDL mass conc 65 mg/dL Normal [facility] [place] Comment on above: Order Comment: 2 OF 2 ORDERS Result Comment: LDL Risk Stratification: < 100 mg/dL - Optimal < 130 - Near optimal 130 - 159 - Borderline high 160 - 189 - High > 189 - Very high *National Cholesterol Education Program (NCEP) levels in terms of risk for coronary heart disease. Performed By: #### L IRONP, LFER #### [facility] [address] [place] [address] Cholesterol mass conc 125 mg/dL Normal [facility] Comment on above: Order Comment: 2 OF 2 ORDERS Result Comment: Chol esterol Risk Stratification <200 mg/dL Desirable 200-240 mg/dL Borderline >240 mg/dL High Risk Performed By: #### L IRONP, LFER #### [facility] [address] [place] [address] Triglyceride mass conc 157 mg/dL High [facility] [place] Comment on above: Order Comment: 2 OF 2 ORDERS Result Comment: Trig lycerides Reference Range <150 mg/dL Normal 150-199 mg/dL Borderline High 200-499 mg/dL High >/=500 mg/dL Very High Performed By: #### L IRONP, LFER #### [facility] [address] [place] [address] UR MICROALBUMIN RANDOMon Creatinine mass conc 92.2 mg/dL Normal Not Establshd [facility] [place] Comment on above: Performed By: #### L IRONP, LFER #### [facility] [address] [place] [address] UR MICROALB RDM < 5.0 Normal Not Establshd [facility] [place] Comment on above: Performed By: #### L IRONP, LFER #### [facility] [address] [place] [address] 58242 UR RATIO NotDone Normal <30.0 [facility] [place] Comment on above: Result Comment: Unab le to calculate Urine Microalbumin/Creatinine Ratio due to low microalbumin value. Suggest repeating with a 24hr specimen. Performed By: #### L IRONP, LFER #### [facility] [address] [place] [address] MISCELLANEOUS TESTon 018 MISC TEST Normal [facility] [place] Comment on above: Order Comment: 2 OF 2 ORDERS Result Comment: Test ing performed at [facility] Final report from [facility] will be mailed/faxed Performed By: #### L IRONP, LFER #### [facility] [address] [place] [address] MISCELLANEOUS TESTon 018 MISC TEST Normal [facility] [place] Comment on above: Order Comment: CD3 - LAVENDER 1 OF 2 ORDERS Name of Test: CD3 (2nd line): GREEN NA HEP LAV Result Comment: Test ing performed at [facility] Final report from [facility] will be mailed/faxed Performed By: #### L MISCT #### MISC TESTING SITES IGGon 08-31-2017 IgG mass conc 1044 mg/dL Normal 700-1600 [facility] [place] Comment on above: Order Comment: 2 OF 2 ORDERS Result Comment: [facility] [place];[address] [place] [address];Lab ;Dir ctor: Joaquin Garcia, PhD Performed By: #### L IGG #### [facility] [address] [place] [address] CBC AUTOon 08-29-2017 Erythrocyte distribution width Ratio (RBC) 13.0 % Normal 11.5-14.5 [facility] [place] Comment on above: Order Comment: 2 OF 2 ORDERS Performed By: #### L CBCMD, LCBC #### [facility] [address] [place], [place] [phone] Hematocrit Volume Fraction (Bld) 39.5 % Normal 39.0-55.0 [facility] [place] Comment on above: Order Comment: 2 OF 2 ORDERS Performed By: #### L CBCMD, LCBC #### [facility] [address] [place] [address] Hemoglobin mass conc (Bld) 13.1 g/dL Low 14.0-16.5 [facility] [place] Comment on above: Order Comment: 2 OF 2 ORDERS Performed By: #### L CBCMD, LCBC #### [facility] [address] [place], [place] [phone] MCH Entitic mass (RBC) 30.4 pg Normal 25.4-34.6 [facility] [place] Comment on above: Order Comment: 2 OF 2 ORDERS Performed By: #### L CBCMD, LCBC #### [facility] [address] [place], [place] [phone] MCHC mass conc (RBC) 33.2 g/dL Normal 30.0-36.0 [facility] [place] Comment on above: Order Comment: 2 OF 2 ORDERS Performed By: #### L CBCMD, LCBC #### [facility] [address] [place], [place] [phone] MCV Entitic volume (RBC) 91.6 fL Normal 79.0-98.0 [facility] [place] Comment on above: Order Comment: 2 OF 2 ORDERS Performed By: #### L CBCMD, LCBC #### [facility] [address] [place], [place] [phone] Platelet mean volume Entitic volume (Bld) 10.1 fL Normal 8.4-11.9 [facility] [place] Comment on above: Order Comment: 2 OF 2 ORDERS Performed By: #### L CBCMD, LCBC #### [facility] [address] [place] [address] 94899 Platelets #/vol (Bld) 260 10*3/uL Normal 140-440 [facility] [place] Comment on above: Order Comment: 2 OF 2 ORDERS Performed By: #### L CBCMD, LCBC #### [facility] [address] [place] [address] 08241 RBC #/vol (Bld) 4.31 10*6/uL Normal 4.0-6.0 [facility] [place] Comment on above: Order Comment: 2 OF 2 ORDERS Performed By: #### L CBCMD, LCBC #### [facility] [address] [place] [address] 71049 WBC #/vol (Bld) 12.3 10*3/uL High 3.9-11.0 [facility] [place] Comment on above: Order Comment: 2 OF 2 ORDERS Performed By: #### L CBCMD, LCBC #### [facility] [address] [place] [address] 86019 CBC w/MANUAL DIFFon 08-30-19 18 Eosinophils/100 WBC (Bld) 5 % High 1-3 [facility] [place] Comment on above: Order Comment: 2 OF 2 ORDERS Performed By: #### L CBCMD, LCBC #### [facility] [address] [place] [address] 93129 Lymphocytes/100 WBC (Bld) 20 % Normal 20-30 [facility] [place] Comment on above: Order Comment: 2 OF 2 ORDERS Performed By: #### L CBCMD, LCBC #### [facility] [address] [place] [address] 78627 Monocytes/100 WBC (Bld) 5 % Normal 2-8 [facility] [place] Comment on above: Order Comment: 2 OF 2 ORDERS Performed By: #### L CBCMD, LCBC #### [facility] [address] [place] [address] 71600 Neutrophils/100 WBC (Bld) 70 % Normal 50-70 [facility] [place] Comment on above: Order Comment: 2 OF 2 ORDERS Performed By: #### L CBCMD, LCBC #### [facility] [address] [place] [address] Platelets #/vol (Bld) ADEQ Normal [facility] [place] Comment on above: Order Comment: 2 OF 2 ORDERS Performed By: #### L CBCMD, LCBC #### [facility] [address] [place] [address] RBC COMMENTS NORMAL MORPHOLOGY Normal [facility] [place] Comment on above: Order Comment: 2 OF 2 ORDERS Performed By: #### L CBCMD, LCBC #### [facility] [address] [place] [address] 08305 TOTAL CELLS 100 #Cells Normal [facility] [place] Comment on above: Order Comment: 2 OF 2 ORDERS Performed By: #### L CBCMD, LCBC #### [facility] [address] [place] [address] 24871 NRBC # 0.00 K/uL Normal [facility] [place] Comment on above: Order Comment: 2 OF 2 ORDERS Performed By: #### L CBCMD, LCBC #### [facility] [address] [place] [address] 49388 NRBC % 0.0 /100 WBC Normal 0 [facility] [place] Comment on above: Order Comment: 2 OF 2 ORDERS Performed By: #### L CBCMD, LCBC #### [facility] [address] [place] [address] 16885 COMP METABOLIC PANELon 08-29 Albumin mass conc 4.1 g/dL Normal 3.4-5.0 [facility] [place] Comment on above: Order Comment: 2 OF 2 ORDERS Is patient fasting? YES Performed By: #### L LDH, LURIC, LCMP, LGFRP #### [facility] [address] [place] [address] 81961 ALK PHOS TOTAL 60 U/L Normal 45-117 [facility] [place] Comment on above: Order Comment: 2 OF 2 ORDERS Is patient fasting? YES Performed By: #### L LDH, LURIC, LCMP, LGFRP #### [facility] [address] [place] [address] 05195 ALT enzyme act/vol 21 U/L Normal 10-52 [facility] [place] Comment on above: Order Comment: 2 OF 2 ORDERS Is patient fasting? YES Performed By: #### L LDH, LURIC, LCMP, LGFRP #### [facility] [address] [place] [address] 84839 AST enzyme act/vol 20 U/L Normal 13-39 [facility] [place] Comment on above: Order Comment: 2 OF 2 ORDERS Is patient fasting? YES Performed By: #### L LDH, LURIC, LCMP, LGFRP #### [facility] [address] [place] [address] 21013 BILI TOTAL 0.4 mg/dL Normal 0-1.2 [facility] [place] Comment on above: Order Comment: 2 OF 2 ORDERS Is patient fasting? YES Performed By: #### L LDH, LURIC, LCMP, LGFRP #### [facility] [address] [place] [address] 12814 Calcium mass conc 9.8 mg/dL Normal 8.6-10.3 [facility] [place] Comment on above: Order Comment: 2 OF 2 ORDERS Is patient fasting? YES Performed By: #### L LDH, LURIC, LCMP, LGFRP #### [facility] [address] [place] [address] 94946 Chloride molar conc 104 mmol/L Normal 98-107 [facility] [place] Comment on above: Order Comment: 2 OF 2 ORDERS Is patient fasting? YES Performed By: #### L LDH, LURIC, LCMP, LGFRP #### [facility] [address] [place] [address] 03503 CO2 molar conc 27 mmol/L Normal 21-32 [facility] [place] Comment on above: Order Comment: 2 OF 2 ORDERS Is patient fasting? YES Performed By: #### L LDH, LURIC, LCMP, LGFRP #### [facility] [address] [place] [address] 45141 Creatinine mass conc 1.50 mg/dL High 0.5-1.3 [facility] [place] Comment on above: Order Comment: 2 OF 2 ORDERS Is patient fasting? YES Performed By: #### L LDH, LURIC, LCMP, LGFRP #### [facility] [address] [place] [address] 06906 Glucose mass conc 164 mg/dL High 74-99 [facility] [place] Comment on above: Order Comment: 2 OF 2 ORDERS Is patient fasting? YES Performed By: #### L LDH, LURIC, LCMP, LGFRP #### [facility] [address] [place] [address] Potassium molar conc 4.5 mmol/L Normal 3.5-5.3 [facility] [place] Comment on above: Order Comment: 2 OF 2 ORDERS Is patient fasting? YES Performed By: #### L LDH, LURIC, LCMP, LGFRP #### [facility] [address] [place] [address] 23200 Protein mass conc 7.5 g/dL Normal 6.4-8.2 [facility] [place] Comment on above: Order Comment: 2 OF 2 ORDERS Is patient fasting? YES Performed By: #### L LDH, LURIC, LCMP, LGFRP #### [facility] [address] [place] [address] Sodium molar conc 137 mmol/L Normal 136-145 [facility] [place] Comment on above: Order Comment: 2 OF 2 ORDERS Is patient fasting? YES Performed By: #### L LDH, LURIC, LCMP, LGFRP #### [facility] [address] [place] [address] Urea nitrogen mass conc 33 mg/dL High 6-23 [facility] [place] Comment on above: Order Comment: 2 OF 2 ORDERS Is patient fasting? YES Performed By: #### L LDH, LURIC, LCMP, LGFRP #### [facility] [address] [place] [address] 12085 FERRITINon 08-29-2017 Ferritin mass conc 67 ng/mL Normal 20-300 [facility] [place] Comment on above: Order Comment: 2 OF 2 ORDERS Performed By: #### L IRONP, LFER #### [facility] [address] [place] [address] 55467 GLOMERULAR FILTRATION RATE E STon 08-29-2017 GFR/1.73 sq M predicted among non-blacks MDRD vol rate/area (S/P/Bld) 52 mL/min/{1.73_m2} Low > 60 [facility] [place] on above: Order Comment: 2 OF 2 ORDERS Is patient fasting? YES Performed By: #### L LDH, LURIC, LCMP, LGFRP #### [facility] [address] [place] [address] IF AMER 60 mL/MIN Normal > 60 [facility] Comment on above: Order Comment: 2 OF 2 ORDERS Is patient fasting? YES Result Comment: Effe ctive 07/13/14: CKD-EPI equation / based on IDMS traceable creatinine. Continue to use the CREAT CLR-DOSE (Cockgroft-Gault) value for determining medication dose. Performed By: #### L LDH, LURIC, LCMP, LGFRP #### [facility] [address] [place] [address] IRON PANELon 08-29-2017 Iron mass conc 68 ug/dL Normal 35-150 [facility] [place] Comment on above: Order Comment: 2 OF 2 ORDERS Performed By: #### L IRONP, LFER #### [facility] [address] [place] [address] 67127 IRON SAT 20 % Low 25-45 [facility] [place] Comment on above: Order Comment: 2 OF 2 ORDERS Performed By: #### L IRONP, LFER #### [facility] [address] [place], [place] [phone] TIBC 335 ug/dL Normal 250-445 [facility] [place] Comment on above: Order Comment: 2 OF 2 ORDERS Performed By: #### L IRONP, LFER #### [facility] [address] [place] [address] 79746 LDH (LD)on 08-29-2017 LDH 106 U/L Normal 84-246 [facility] [place] Comment on above: Order Comment: 2 OF 2 ORDERS Is patient fasting? YES Performed By: #### L LDH, LURIC, LCMP, LGFRP #### [facility] [address] [place] [address] 39233 URIC ACID BLDon 08-29-2017 Urate mass conc 4.3 mg/dL Normal 4.0-7.5 [facility] Comment on above: Order Comment: 2 OF 2 ORDERS Is patient fasting? YES Performed By: #### L LDH, LURIC, LCMP, LGFRP #### [facility] [address] [place] [address] 75993 Vital Signs Date Time Vital Sign Value Performing Clinician Facility 10-29-2024 20:17-0400 Body temperature 99.6 [degF] Dr. Mayco Fenton MD Work Phone: [facility] 10-29-2024 20:17-0400 Diastolic blood pressure 71 mm[Hg] Dr. Mayco Fenton MD Work Phone: [facility] 10-29-2024 20:17-0400 Heart rate 102 /min Dr. Mayco Fenton MD Work Phone: [facility] 10-29-2024 20:17-0400 Respiratory rate 20 /min Dr. Mayco Fenton MD Work Phone: [facility] 10-29-2024 20:17-0400 SaO2% (BldA) [Mass fraction] 100 % Dr. Mayco Fenton MD Work Phone: [facility] 10-29-2024 20:17-0400 Systolic blood pressure 151 mm[Hg] Dr. Mayco Fenton MD Work Phone: [facility] 10-29-2024 16:40-0400 Body height 177.[address] Mayco Fenton MD Work Phone: [facility] 10-29-2024 16:40-0400 Body mass index (BMI) [Ratio] 30.5 kg/m2 Dr. Mayco Fenton MD Work Phone: [facility] 10-29-2024 16:40-0400 Body weight 96.[address] Mayco Fenton MD Work Phone: [facility] 09-20-2024 15:34-0400 Body mass index (BMI) [Ratio] 31 kg/m2 Giovanna Cook MD Work Phone: [facility] 09-20-2024 15:34-0400 Body temperature 97.9 [degF] Giovanna Cook MD Work Phone: [facility] 09-20-2024 15:34-0400 Body weight 98 kg Giovanna Cook MD Work Phone: [facility] 09-20-2024 15:34-0400 Diastolic blood pressure 77 mm[Hg] Giovanna Cook MD Work Phone: [facility] 09-20-2024 15:34-0400 Heart rate 86 /min Giovanna Cook MD Work Phone: [facility] 09-20-2024 15:34-0400 Respiratory rate 16 /min Giovanna Cook MD Work Phone: [facility] 09-20-2024 15:34-0400 SaO2% (BldA) [Mass fraction] 97 % Giovanna Cook MD Work Phone: [facility] 09-20-2024 15:34-0400 Systolic blood pressure 135 mm[Hg] Giovanna Cook MD Work Phone: [facility] 04-19-2024 16:23-0500 Body height 177.8 cm Heribertokeshav Davalos DO Work Phone: [facility] 04-19-2024 16:23-0500 Body mass index (BMI) [Ratio] 30.99 kg/m2 Heriberto Kingens DO Work Phone: [facility] 04-19-2024 16:23-0500 Body temperature 97.3 [degF] Heriberto Davalos DO Work Phone: [facility] 04-19-2024 16:23-0500 Body weight 97.98 kg Heriberto Davalos DO Work Phone: [facility] 04-19-2024 16:23-0500 Diastolic blood pressure 82 mm[Hg] Heriberto Davalos DO Work Phone: [facility] 04-19-2024 16:23-0500 Heart rate 77 /min Heriberto Davalos DO Work Phone: [facility] 04-19-2024 16:23-0500 Systolic blood pressure 155 mm[Hg] Heriberto Davalos DO Work Phone: [facility] 03-03-2024 16:05-0500 Body height 177.8 cm Heriberto Davalos DO Work Phone: [facility] 03-03-2024 16:05-0500 Body mass index (BMI) [Ratio] 31.08 kg/m2 Heriberto Davalos DO Work Phone: [facility] 03-03-2024 16:05-0500 Body temperature 97.2 [degF] Heriberto Davalos DO Work Phone: [facility] 03-03-2024 16:05-0500 Body weight 98.25 kg Heriberto Davalos DO Work Phone: [facility] 03-03-2024 16:05-0500 Diastolic blood pressure 73 mm[Hg] Heriberto Davalos DO Work Phone: [facility] 03-03-2024 16:05-0500 Heart rate 84 /min Heriberto Davalos DO Work Phone: [facility] 03-03-2024 16:05-0500 Systolic blood pressure 118 mm[Hg] Heriberto Davalos DO Work Phone: [facility] 02-13-2024 15:48-0500 Body height 177.8 cm Goyo Snider MD Work Phone: [facility] 02-13-2024 15:48-0500 Body mass index (BMI) [Ratio] 30.75 kg/m2 Goyo Snider MD Work Phone: [facility] 02-13-2024 15:48-0500 Body weight 97.21 kg Goyo Snider MD Work Phone: [facility] 02-07-2024 16:00-0500 Body temperature 98.1 [degF] Phillip Dumont DO Work Phone: [facility] 02-07-2024 16:00-0500 Diastolic blood pressure 87 mm[Hg] Phillip Dumont DO Work Phone: [facility] 02-07-2024 16:00-0500 Heart rate 87 /min Phillip Dumont DO Work Phone: [facility] 02-07-2024 16:00-0500 Respiratory rate 18 /min Phillip Dumont DO Work Phone: [facility] 02-07-2024 16:00-0500 SaO2% (BldA) [Mass fraction] 99 % Phillip Dumont DO Work Phone: [facility] 02-07-2024 16:00-0500 Systolic blood pressure 162 mm[Hg] Phillip Dumont DO Work Phone: [facility] 02-07-2024 13:41-0500 Body height 177.8 cm Phillip Dumont DO Work Phone: [facility] 02-07-2024 13:41-0500 Body mass index (BMI) [Ratio] 29.41 kg/m2 Phillip Dumont DO Work Phone: [facility] 02-07-2024 13:41-0500 Body weight 92.99 kg Phillip Dumont DO Work Phone: [facility] 12-10-2023 15:40-0400 Body height 177.8 cm Mahesh [place] [employer] Work Phone: [facility] 12-10-2023 15:40-0400 Body mass index (BMI) [Ratio] 30.85 kg/m2 Mahesh [place] [employer] Work Phone: [facility] 12-10-2023 15:40-0400 Body weight 97.52 kg Mahesh [place] [employer] Work Phone: [facility] 12-10-2023 15:40-0400 Diastolic blood pressure 92 mm[Hg] Mahesh [place] [employer] Work Phone: [facility] 12-10-2023 15:40-0400 Heart rate 82 /min Mahesh [place] [employer] Work Phone: [facility] 12-10-2023 15:40-0400 Systolic blood pressure 165 mm[Hg] Mahesh [place] [employer] Work Phone: [facility] 11-25-2023 16:15-0400 Body height 177.8 cm Heriberto Davalos DO Work Phone: [facility] 11-25-2023 16:15-0400 Body mass index (BMI) [Ratio] 31.14 kg/m2 Heriberto Davalos DO Work Phone: [facility] 11-25-2023 16:15-0400 Body temperature 97.2 [degF] Heriberto Davalos DO Work Phone: [facility] 11-25-2023 16:15-0400 Body weight 98.43 kg Heriberto Davalos DO Work Phone: [facility] 11-25-2023 16:15-0400 Diastolic blood pressure 68 mm[Hg] Heriberto Davalos DO Work Phone: [facility] 11-25-2023 16:15-0400 Heart rate 83 /min Heriberto Davalos DO Work Phone: [facility] 11-25-2023 16:15-0400 Systolic blood pressure 110 mm[Hg] Heriberto Davalos DO Work Phone: [facility] 11-12-2023 15:30-0400 Body height 177.8 cm Goyo Snider MD Work Phone: [facility] 11-12-2023 15:30-0400 Body mass index (BMI) [Ratio] 30.29 kg/m2 Goyo Snider MD Work Phone: [facility] 11-12-2023 15:30-0400 Body weight 95.75 kg Goyo Snider MD Work Phone: [facility] 11-11-2023 09:27-0400 Body height 177.8 cm Heriberto Davalos DO Work Phone: [facility] 11-11-2023 09:27-0400 Body mass index (BMI) [Ratio] 30.13 kg/m2 Heriberto Davalos DO Work Phone: [facility] 11-11-2023 09:27-0400 Body temperature 97.81 [degF] Heriberto Davalos DO Work Phone: [facility] 11-11-2023 09:27-0400 Body weight 95.25 kg Heriberto Davalos DO Work Phone: [facility] 11-11-2023 09:27-0400 Diastolic blood pressure 70 mm[Hg] Heriberto Davalos DO Work Phone: [facility] 11-11-2023 09:27-0400 Heart rate 79 /min Heriberto Davalos DO Work Phone: [facility] 11-11-2023 09:27-0400 Systolic blood pressure 105 mm[Hg] Heriberto Davalos DO Work Phone: [facility] 10-28-2023 16:02-0400 Body height 177.8 cm Heriberto Davalos DO Work Phone: [facility] 10-28-2023 16:02-0400 Body mass index (BMI) [Ratio] 32.43 kg/m2 Heriberto Davalos DO Work Phone: [facility] 10-28-2023 16:02-0400 Body temperature 98.6 [degF] Heriberto Davalos DO Work Phone: [facility] 10-28-2023 16:02-0400 Body weight 102.51 kg Heriberto Davalos DO Work Phone: [facility] 10-28-2023 16:02-0400 Diastolic blood pressure 76 mm[Hg] Heriberto Davalos DO Work Phone: [facility] 10-28-2023 16:02-0400 Heart rate 92 /min Heriberto Davalos DO Work Phone: [facility] 10-28-2023 16:02-0400 Systolic blood pressure 117 mm[Hg] Heriberto Davalos DO Work Phone: [facility] 10-27-2023 16:00-0400 Diastolic blood pressure 74 mm[Hg] Phillip Bernal MD [facility] 10-27-2023 16:00-0400 Heart rate 98 /min Phillip Bernal MD [facility] 10-27-2023 16:00-0400 Respiratory rate 17 /min Phillip Bernal MD [facility] 10-27-2023 16:00-0400 SaO2% (BldA) [Mass fraction] 99 % Phillip Bernal MD [facility] 10-27-2023 16:00-0400 Systolic blood pressure 155 mm[Hg] Phillip Bernal MD [facility] 10-27-2023 11:46-0400 Body height 177.8 cm Phillip Bernal MD [facility] 10-27-2023 11:46-0400 Body mass index (BMI) [Ratio] 31.57 kg/m2 Phillip Bernal MD [facility] 10-27-2023 11:46-0400 Body temperature 97.7 [degF] Phillip Bernal MD [facility] 10-27-2023 11:46-0400 Body weight 99.79 kg Phillip Bernal MD [facility] 07-23-2023 16:02-0400 Body height 177.8 cm Heriberto Davalos DO Work Phone: [facility] 07-23-2023 16:02-0400 Body mass index (BMI) [Ratio] 32.28 kg/m2 Heriberto Davalos DO Work Phone: [facility] 07-23-2023 16:02-0400 Body temperature 98.01 [degF] Heriberto Davalos DO Work Phone: [facility] 07-23-2023 16:02-0400 Body weight 102.06 kg Heriberto Davalos DO Work Phone: [facility] 07-23-2023 16:02-0400 Diastolic blood pressure 66 mm[Hg] Heriberto Davalos DO Work Phone: [facility] 07-23-2023 16:02-0400 Heart rate 100 /min Heriberto Davalos DO Work Phone: [facility] 07-23-2023 16:02-0400 Systolic blood pressure 97 mm[Hg] Heriberto Davalos DO Work Phone: [facility] 04-23-2023 16:03-0500 Body height 177.8 cm Heriberto Davalos DO Work Phone: [facility] 04-23-2023 16:03-0500 Body mass index (BMI) [Ratio] 34.58 kg/m2 Heriberto Davalos DO Work Phone: [facility] 04-23-2023 16:03-0500 Body temperature 98.01 [degF] Heriberto Davalos DO Work Phone: [facility] 04-23-2023 16:03-0500 Body weight 109.32 kg Heriberto Davalos DO Work Phone: [facility] 04-23-2023 16:03-0500 Diastolic blood pressure 79 mm[Hg] Heriberto Davalos DO Work Phone: [facility] 04-23-2023 16:03-0500 Heart rate 76 /min Heriberto Davalos DO Work Phone: [facility] 04-23-2023 16:03-0500 Systolic blood pressure 115 mm[Hg] Heriberto Davalos DO Work Phone: [facility] 03-25-2023 15:56-0500 Body height 177.8 cm Heriberto Davalos DO Work Phone: [facility] 03-25-2023 15:56-0500 Body mass index (BMI) [Ratio] 35.3 kg/m2 Heriberto Davalos DO Work Phone: [facility] 03-25-2023 15:56-0500 Body temperature 98.01 [degF] Heriberto Davalos DO Work Phone: [facility] 03-25-2023 15:56-0500 Body weight 111.58 kg Heriberto Davalos DO Work Phone: [facility] 03-25-2023 15:56-0500 Diastolic blood pressure 80 mm[Hg] Heriberto Kingens DO Work Phone: [facility] 03-25-2023 15:56-0500 Heart rate 81 /min Heriberto Davalos DO Work Phone: [facility] 03-25-2023 15:56-0500 Systolic blood pressure 124 mm[Hg] Heriberto Davalos DO Work Phone: [facility] 03-04-2023 16:07-0500 Body height 177.8 cm Heriberto Davalos DO Work Phone: [facility] 03-04-2023 16:07-0500 Body mass index (BMI) [Ratio] 35.58 kg/m2 Heriberto Davalos DO Work Phone: [facility] 03-04-2023 16:07-0500 Body temperature 97.81 [degF] Heriberto Davalos DO Work Phone: [facility] 03-04-2023 16:07-0500 Body weight 112.49 kg Heriberto Davalos DO Work Phone: [facility] 03-04-2023 16:07-0500 Diastolic blood pressure 83 mm[Hg] Heriberto Davalos DO Work Phone: [facility] 03-04-2023 16:07-0500 Heart rate 85 /min Heriberto Davalos DO Work Phone: [facility] 03-04-2023 16:07-0500 Systolic blood pressure 138 mm[Hg] Heriberto Davalos DO Work Phone: [facility] 12-23-2022 15:41-0500 Body height 177.8 cm Phillip Bernal MD Work Phone: [facility] 12-23-2022 15:41-0500 Body mass index (BMI) [Ratio] 36.45 kg/m2 Phillip Bernal MD Work Phone: [facility] 12-23-2022 15:41-0500 Body weight 115.21 kg Phillip Bernal MD Work Phone: [facility] 12-23-2022 15:41-0500 Diastolic blood pressure 82 mm[Hg] Phillip Bernal MD Work Phone: [facility] 12-23-2022 15:41-0500 Heart rate 96 /min Phillip Bernal MD Work Phone: [facility] 12-23-2022 15:41-0500 Systolic blood pressure 120 mm[Hg] Phillip Bernal MD Work Phone: [facility] 07-03-2022 16:25-0400 Body height 177.8 cm Phillip Bernal Work Phone: [facility] DO Work Phone: 07-03-2022 16:25-0400 Body mass index (BMI) [Ratio] 36.3 kg/m2 Phillip Bernal Work Phone: [facility] DO Work Phone: 07-03-2022 16:25-0400 Body surface area Derived from formula 2.31 m2 Phillip Bernal Work Phone: [facility] DO Work Phone: 07-03-2022 16:25-0400 Body temperature 98 [degF] Phillip Bernal Work Phone: [facility] DO Work Phone: 07-03-2022 16:25-0400 Body weight 114.76 kg Phillip Bernal Work Phone: [facility] DO Work Phone: 07-03-2022 16:25-0400 Diastolic blood pressure 80 mm[Hg] Phillip Bernal Work Phone: [facility] DO Work Phone: 07-03-2022 16:25-0400 Heart rate 77 /min Phillip Bernal Work Phone: [facility] DO Work Phone: 07-03-2022 16:25-0400 Systolic blood pressure 120 mm[Hg] Phillip Bernal Work Phone: [facility] DO Work Phone: 12-26-2021 16:27-0500 Body height 177.8 cm Phillip Bernal Work Phone: [facility] Work Phone: 12-26-2021 16:27-0500 Body mass index (BMI) [Ratio] 36.45 kg/m2 Phillip Bernal Work Phone: [facility] Work Phone: 12-26-2021 16:27-0500 Body surface area Derived from formula 2.31 m2 Phillip Bernal Work Phone: [facility] Work Phone: 12-26-2021 16:27-0500 Body weight 115.21 kg Phillip Bernal Work Phone: [facility] Work Phone: 12-26-2021 16:27-0500 Diastolic blood pressure 64 mm[Hg] Phillip Bernal Work Phone: [facility] Work Phone: 12-26-2021 16:27-0500 Heart rate 88 /min Phillip Bernal Work Phone: [facility] Work Phone: 12-26-2021 16:27-0500 Systolic blood pressure 132 mm[Hg] Phillip Bernal Work Phone: [facility] Work Phone: 12-06-2021 14:41-0400 Body height 177.8 cm Phillip Bernal Work Phone: [facility] Work Phone: 12-06-2021 14:41-0400 Body mass index (BMI) [Ratio] 36.59 kg/m2 Phillip Bernal Work Phone: [facility] Work Phone: 12-06-2021 14:41-0400 Body surface area Derived from formula 2.31 m2 Phillip Bernal Work Phone: [facility] Work Phone: 12-06-2021 14:41-0400 Body weight 115.67 kg Phillip Bernal Work Phone: [facility] Work Phone: 12-06-2021 14:41-0400 Diastolic blood pressure 70 mm[Hg] Phillip Bernal Work Phone: [facility] Work Phone: 12-06-2021 14:41-0400 Heart rate 80 /min Phillip Bernal Work Phone: [facility] Work Phone: 12-06-2021 14:41-0400 Systolic blood pressure 116 mm[Hg] Phillip Bernal Work Phone: [facility] Work Phone: 09-05-2021 15:58-0400 Body height 177.8 cm Phillip Bernal Work Phone: [facility] Work Phone: 09-05-2021 15:58-0400 Body mass index (BMI) [Ratio] 37.31 kg/m2 Phillip Bernal Work Phone: [facility] Work Phone: 09-05-2021 15:58-0400 Body surface area Derived from formula 2.33 m2 Phillip Bernal Work Phone: [facility] Work Phone: 09-05-2021 15:58-0400 Body weight 117.94 kg Phillip Bernal Work Phone: [facility] Work Phone: 09-05-2021 15:58-0400 Diastolic blood pressure 68 mm[Hg] Phillip Bernal Work Phone: [facility] Work Phone: 09-05-2021 15:58-0400 Heart rate 88 /min Phillip Bernal Work Phone: [facility] Work Phone: 09-05-2021 15:58-0400 Systolic blood pressure 128 mm[Hg] Phillip Bernal Work Phone: [facility] Work Phone: 06-20-2021 15:54-0400 Body height 177.8 cm Phillip Bernal Work Phone: [facility] DO Work Phone: 06-20-2021 15:54-0400 Body mass index (BMI) [Ratio] 37.16 kg/m2 Phillip Bernal Work Phone: [facility] [place] Work Phone: 06-20-2021 15:54-0400 Body surface area Derived from formula 2.33 m2 Phillip Bernal Work Phone: [facility] DO Work Phone: 06-20-2021 15:54-0400 Body temperature 97.4 [degF] Phillip Bernal Work Phone: [facility] DO Work Phone: 06-20-2021 15:54-0400 Body weight 117.48 kg Phillip Bernal Work Phone: [facility] DO Work Phone: 06-20-2021 15:54-0400 Diastolic blood pressure 62 mm[Hg] Phillip Bernal Work Phone: [facility] DO Work Phone: 06-20-2021 15:54-0400 Heart rate 80 /min Phillip Bernal Work Phone: [facility] DO Work Phone: 06-20-2021 15:54-0400 SaO2% (BldA) [Mass fraction] 96 % Phillip Bernal Work Phone: [facility] DO Work Phone: 06-20-2021 15:54-0400 Systolic blood pressure 112 mm[Hg] Phillip Bernal Work Phone: [facility] DO Work Phone: 05-23-2021 16:08-0400 Body height 177.8 cm Phillip Bernal Work Phone: [facility] [facility] Work Phone: 05-23-2021 16:08-0400 Body mass index (BMI) [Ratio] 37.31 kg/m2 Phillip Bernal Work Phone: [facility] [facility] Work Phone: 05-23-2021 16:08-0400 Body surface area Derived from formula 2.33 m2 Phillip Bernal Work Phone: [facility] Work Phone: 05-23-2021 16:08-0400 Body weight 117.94 kg Phillip Bernal Work Phone: [facility] Work Phone: 05-23-2021 16:08-0400 Diastolic blood pressure 64 mm[Hg] Phillip Bernal Work Phone: [facility] Work Phone: 05-23-2021 16:08-0400 Heart rate 80 /min Phillip Bernal Work Phone: [facility] Work Phone: 05-23-2021 16:08-0400 Systolic blood pressure 114 mm[Hg] Phillip Bernal Work Phone: [facility] Work Phone: 03-02-2021 16:24-0500 Body height 177.8 cm [facility] Work Phone: 03-02-2021 16:24-0500 Body mass index (BMI) [Ratio] 36.45 kg/m2 Phillip [facility] Work Phone: 03-02-2021 16:24-0500 Body surface area Derived from formula 2.31 m2 Phillip Bernal Work Phone: [facility] Work Phone: 03-02-2021 16:24-0500 Body weight 115.21 kg Phillip Bernal Work Phone: [facility] Work Phone: 11-30-2020 15:56-0400 Body height 180.34 cm Phillip Bernla Work Phone: [facility] DO Work Phone: 11-30-2020 15:56-0400 Body mass index (BMI) [Ratio] 35.84 kg/m2 Phillip Bernal Work Phone: [facility] DO Work Phone: 11-30-2020 15:56-0400 Body surface area Derived from formula 2.35 m2 Phillip Bernal Work Phone: [facility] DO Work Phone: 11-30-2020 15:56-0400 Body temperature 97.2 [degF] Phillip Bernal Work Phone: [facility] DO Work Phone: 11-30-2020 15:56-0400 Body weight 116.58 kg Phillip Bernal Work Phone: [facility] DO Work Phone: 11-30-2020 15:56-0400 Diastolic blood pressure 70 mm[Hg] Phillip Bernal Work Phone: [facility] DO Work Phone: 11-30-2020 15:56-0400 Heart rate 92 /min Phillip Bernal Work Phone: [facility] DO Work Phone: 11-30-2020 15:56-0400 Systolic blood pressure 110 mm[Hg] Phillip Bernal Work Phone: [facility] DO Work Phone: 11-30-2020 15:56-0400 0 1 Phillip Bernal Work Phone: [facility] DO Work Phone: Comment on above: PHQ-9 TS 11-22-2020 16:04-0400 Body height 180.34 cm Phillip Bernal Work Phone: [facility] [facility] Work Phone: 11-22-2020 16:04-0400 Body mass index (BMI) [Ratio] 35.57 kg/m2 Phillip Bernal Work Phone: [facility] Work Phone: 11-22-2020 16:04-0400 Body surface area Derived from formula 2.34 m2 Phillip Bernal Work Phone: [facility] [facility] Work Phone: 11-22-2020 16:04-0400 Body weight 115.67 kg Phillip Bernal Work Phone: [facility] Work Phone: 11-22-2020 16:04-0400 Diastolic blood pressure 64 mm[Hg] Phillip Bernal Work Phone: [facility] Work Phone: 11-22-2020 16:04-0400 Heart rate 84 /min Phillip Bernal Work Phone: [facility] Work Phone: 11-22-2020 16:04-0400 Systolic blood pressure 116 mm[Hg] Phillip Bernal Work Phone: [facility] [facility] Work Phone: 12-06-2019 18:00-0400 BMI (Body Mass Index) 35.57 kg/m2 Marco Otoole [facility] Work Phone: 12-06-2019 18:00-0400 Body weight 115.67 kg Marco Otoole [facility] Work Phone: 12-06-2019 18:00-0400 BSA (Body Surface Area) 2.34 m2 Marco Otoole [facility] Work Phone: 12-06-2019 18:00-0400 Height 180.34 cm Marco Otoole [facility] [facility] Work Phone: 10-06-2019 18:03-0400 BMI (Body Mass Index) 35.98 kg/m2 Rudi [place] [facility] Work Phone: 10-06-2019 18:03-0400 Body weight 117.03 kg Rudi [place] [facility] Work Phone: 10-06-2019 18:03-0400 BP Diastolic 72 mm[Hg] Rudi [place] [facility] Work Phone: 10-06-2019 18:03-0400 BP Systolic 118 mm[Hg] Rudi [place] [facility] Work Phone: 10-06-2019 18:03-0400 BSA (Body Surface Area) 2.35 m2 Rudi [place] [facility] Work Phone: 10-06-2019 18:03-0400 Height 180.34 cm Rudi [place] [facility] Work Phone: 10-06-2019 18:03-0400 Pulse (Heart Rate) 80 /min Rudi Dee Work Phone: Encounters Encounter Date Encounter Type Care Provider Facility Start: 10-29-2024 Evaluation and manag ement of inpatient Dr. Ruslan Adams DO -Intensive Care Unit Work Phone: Start: 09-22-2024 End: 09-22-[address] Mayco Fenton MD Work Phone: -Laboratory Specimen Start: 09-22-2024 End: 09-22-[address] Javy Lynch DPM -Laboratory Specimen Work Phone: Start: 09-22-2024 End: 09-22-2024 ambulatory Javy Lynch Facility:[facility] Start: 09-20-2024 End: 09-20-2024 Office outpatient visit 25 minutes Giovanna Cook MD Work Phone: [facility] Comment on above: Hereditary hemochrom atosis (Primary Dx); Large granular lymphocytic leukemia (Multi); Ankylosing spondylitis of thoracolumbar region (Multi); Recurrent acute deep vein thrombosis (DVT) of both lower extremities; Type 2 diabetes mellitus without complication, without long-term current use of insulin; Benign essential hypertension; Mixed hyperlipidemia Start: 09-20-2024 End: 09-20-2024 ambulatory GIOVANNA COOK [facility] Start: 09-20-2024 Encounter for genera l adult medical examination without abnormal findings Mayco Fenton [facility] Start: 09-16-2024 End: 09-16-[address] [facility] Start: 09-09-2024 End: 09-09-[address] Mayco Fenton MD Work Phone: -Laboratory [facility] Start: 09-09-2024 End: 09-09-[address] Mayco Fenton MD [place] Start: 09-09-2024 End: 09-09-2024 ambulatory Mayco Fenton Facility:[facility] Start: 06-22-2024 End: 06-22-2024 Patient encounter procedure Ariel GUSTAFS[facility] Work Phone: Start: 06-22-2024 End: 06-22-2024 ambulatory Ariel GUSTAFSON [place] Start: 04-19-2024 End: 04-19-2024 Office outpatient visit 15 minutes Heriberto Davalos DO Work Phone: [facility] Comment on above: Neuropathy (Primary Dx); Type 2 diabetes mellitus without complication, without long-term current use of insulin (Multi); Benign essential hypertension; Stage 3b chronic kidney disease (Multi); Type 2 diabetes mellitus with stage 3b chronic kidney disease, without long-term current use of insulin (Multi); Mixed hyperlipidemia; Thyroid disorder screening; Hyperuricemia; Prostate cancer screening Start: 04-19-2024 End: 04-19-2024 ambulatory [facility] [address] [facility] Start: 03-03-2024 End: 03-03-2024 Office outpatient visit 15 minutes Heriberto Davalos DO Work Phone: [facility] Comment on above: Neuropathy (Primary Dx); Hypomagnesemia Start: 03-03-2024 End: 03-03-2024 ambulatory [facility] [address] [facility] Start: 02-13-2024 End: 02-13-2024 Office outpatient visit 15 minutes Goyo Snider MD Work Phone: [facility] Comment on above: Thyroid nodule (Prim bud Dx) Start: 02-13-2024 End: 02-13-2024 ambulatory GOYO SNIDER [facility] Ambulatory Start: 02-07-2024 End: 02-07-2024 Emergency department patient visit Phillip Dumont DO Work Phone: [facility] Comment on above: Viral upper respirat ory illness (Primary Dx) Start: 02-03-2024 End: 02-03-2024 ambulatory [facility] Ambulatory Start: 01-21-2024 End: 01-21-2024 Subsequent hospital visit by physician Cooper [id number] Ultrasound [facility] Comment on above: Thyroid nodule Start: 01-21-2024 End: 01-21-2024 ambulatory GOYO SNIDER [facility] Start: 12-10-2023 End: 12-10-2023 Office outpatient new 45 minutes Maheshapolonia Magañaing [employer] Work Phone: [facility] 1 Comment on above: Nephrolithiasis Start: 12-10-2023 End: 12-10-2023 ambulatory [facility] Ambulatory Start: 11-25-2023 End: 11-25-2023 Office outpatient visit 15 minutes Heriberto Davalos DO Work Phone: [facility] Comment on above: Benign essential hyp ertension (Primary Dx); Type 2 diabetes mellitus with stage 3b chronic kidney disease, without long-term current use of insulin (Multi); Hyperuricemia; Nephrolithiasis; Thyroid nodule Start: 11-25-2023 End: 11-25-2023 ambulatory [facility] [address] [facility] Start: 11-13-2023 End: 11-13-2023 ambulatory [facility] Start: 11-13-2023 End: 11-13-2023 Subsequent hospital visit by physician Cooper [id number] X-Ray 1 [facility] Comment on above: Nephrolithiasis Start: 11-12-2023 End: 11-12-2023 Office consultation new/estab patient 60 min Goyo Snider MD Work Phone: [facility] Comment on above: Thyroid nodule Start: 11-12-2023 End: 11-12-2023 [facility] Start: 11-11-2023 End: 11-11-2023 Office outpatient visit 15 minutes Heriberto Davalos DO Work Phone: [facility] Comment on above: Nephrolithiasis (Jenny alessandra Dx); Benign essential hypertension; Stage 3b chronic kidney disease (Multi); Type 2 diabetes mellitus with stage 3b chronic kidney disease, without long-term current use of insulin (Multi); Left eye pain Start: 11-11-2023 End: 11-11-2023 ambulatory HERIBERTO A [facility] Ambulatory Start: 10-28-2023 End: 10-28-2023 Office outpatient visit 25 minutes Heriberto Davalos DO Work Phone: [facility] Comment on above: Type 2 diabetes sana itus with stage 3b chronic kidney disease, without long-term current use of insulin (Multi) (Primary Dx); Benign essential hypertension; Stage 3b chronic kidney disease (Multi); Mixed hyperlipidemia; Hyperuricemia; Nephrolithiasis Start: 10-28-2023 End: 10-28-2023 ambulatory HERIBERTO Fields [facility] Ambulatory Start: 10-27-2023 End: 10-27-2023 Emergency department patient visit HERIBERTO Fields DAVALOS [facility] Comment on above: Nephrolithiasis ([facility] alessandra Dx) Start: 08-02-2023 End: 08-02-2023 Subsequent hospital visit by physician Marty [facility] 1 [facility] Comment on above: Multinodular goiter Start: 07-23-2023 End: 07-23-2023 Office outpatient visit 25 minutes Heriberto Davalos DO Work Phone: [facility] Comment on above: Type 2 diabetes sana itus with stage 3b chronic kidney disease, without long-term current use of insulin (Multi) (Primary Dx); Benign essential hypertension; Multinodular goiter; Prostate cancer screening; Thyroid disorder screening; Mixed hyperlipidemia; Hyperuricemia; Stage 3b chronic kidney disease (Multi) Start: 04-23-2023 End: 04-23-2023 Office outpatient visit 15 minutes Heriberto Davalos DO Work Phone: [facility] Comment on above: Type 2 diabetes sana itus with stage 3b chronic kidney disease, without long-term current use of insulin (CMS/HCC) (Primary Dx); Ankylosing spondylitis of thoracolumbar region (CMS/HCC) Start: 03-25-2023 End: 03-25-2023 Office outpatient visit 15 minutes Heriberto Davalos DO Work Phone: [facility] Comment on above: Type 2 diabetes sana itus with stage 3b chronic kidney disease, without long-term current use of insulin (CMS/HCC) (Primary Dx); Neck pain on left side; Benign essential hypertension Start: 03-04-2023 End: 03-04-2023 Office outpatient visit 15 minutes Heriberto Davalos DO Work Phone: [facility] Comment on above: Type 2 diabetes sana itus with diabetic polyneuropathy, without long-term current use of insulin ([facility]) (Primary Dx); Ankylosing spondylitis of thoracolumbar region ([facility]); Benign essential hypertension; Asymptomatic hyperuricemia; Thyroid disorder screening; Neuropathy Start: 01-31-2023 End: 02-01-2023 ambulatory TRISHA SIMONS MD Facility:[facility] Start: 12-23-2022 End: 12-23-2022 Office outpatient visit 25 minutes Phillip Bernal MD Work Phone: [facility] Comment on above: Ankylosing spondylit is of thoracolumbar region ([facility]) (Primary Dx); Benign essential hypertension; Asymptomatic hyperuricemia; Type 2 diabetes mellitus with other specified complication, without long-term current use of insulin ([facility]); Hyperlipidemia, unspecified hyperlipidemia type Start: 12-23-2022 Patient encounter status Cristin Davalos DO Work Phone: [facility] Work Phone: Start: 11-03-2022 Rx Renewal Phillip Bernal Work Phone: [facility] DO Work Phone: Start: 10-14-2022 AUDIT Phillip Bernal Work Phone: [facility] DO Work Phone: Start: 09-19-2022 Chart Update Phillip Bernal Work Phone: [facility] DO Work Phone: Start: 09-18-2022 Chart Update Phillip Bernal Work Phone: [facility] DO Work Phone: Start: 09-18-[address] Phillip Bernal Jr Facility:[facility] Start: 09-18-[address] Phillip Bernal Facility:[id number] Start: 09-05-2022 Rx Renewal Phillip Bernal Work Phone: [facility] DO Work Phone: Start: 07-17-2022 Rx Renewal Phillip Bernal Work Phone: [facility] DO Work Phone: Start: 06-27-2022 Chart Update Phillip Bernal Work Phone: [facility] DO Work Phone: Start: 05-27-2022 AUDIT Phillip Bernal Work Phone: [facility] DO Work Phone: Start: 05-17-2022 Rx Renewal Phillip Bernal Work Phone: [facility] DO Work Phone: Start: 04-24-2022 Rx Renewal Phillip Bernal Work Phone: [facility] DO Work Phone: Start: 02-05-2022 [facility] Work Phone: Start: 01-05-2022 Chart Update Phillip Bernal Work Phone: [facility] DO Work Phone: Start: 12-31-2021 Rx Renewal Phillip Bernal Work Phone: [facility] DO Work Phone: Start: 12-26-2021 Office outpatient vi sit 25 minutes Phillip Bernal Work Phone: [facility] Work Phone: Start: 12-21-2021 Chart Update Phillip Bernal Work Phone: [facility] Work Phone: Start: 12-20-[address] Phillip Bernal Facility:[id number] Start: 12-10-2021 Rx Renewal Phillip Bernal Work Phone: [facility] Work Phone: Start: 12-06-2021 AUDIT Phillip Bernal Work Phone: [facility] Work Phone: Start: 09-05-2021 FUV, Provider: Rudi Abdi, Status: Pen, Time: 4:00 PM Phillip Bernal Work Phone: [facility] Work Phone: Start: 09-05-2021 Office outpatient vi sit 25 minutes Phillip Bernal Work Phone: [facility] Work Phone: Start: 09-04-2021 AUDIT Phillip Bernal Work Phone: [facility] Work Phone: Start: 08-26-2021 Rx Renewal Phillip Bernal Work Phone: [facility] DO Work Phone: Start: 08-13-2021 Rx Renewal Phillip Bernal Work Phone: [facility] DO Work Phone: Start: 07-29-2021 Rx Renewal Phillip Bernal Work Phone: [facility] Work Phone: Start: 07-03-2021 Rx Renewal Phillip Bernal Work Phone: [facility] DO Work Phone: Start: 06-20-2021 FUV, Provider: Phillip Bernal, Status: Pen, Time: 4:00 PM Phillip Bernal Work Phone: [facility] DO Work Phone: Start: 06-20-2021 Office outpatient vi sit 15 minutes Phillip Bernal Work Phone: [facility] DO Work Phone: Start: 06-19-2021 Chart Update Phillip Bernal Work Phone: [facility] DO Work Phone: Start: 06-05-2021 Rx Renewal Phillip Bernal Work Phone: [facility] DO Work Phone: Start: 05-23-2021 FUV, Provider: Rudi Abdi, Status: Pen, Time: 4:00 PM Phillip Bernal Work Phone: [facility] Work Phone: Start: 05-23-2021 Office outpatient vi sit 25 minutes Phillip Bernal Work Phone: [facility] Work Phone: Start: 05-22-2021 AUDIT Phillip Bernal Work Phone: [facility] Work Phone: Start: 05-15-2021 Rx Renewal Phillip Bernal Work Phone: [facility] Work Phone: Start: 04-30-2021 Rx Renewal Phillip Bernal Work Phone: [facility] DO Work Phone: Start: 04-13-2021 Patient encounter procedure [facility] Bernal [facility] [place] [place] Work Phone: Start: 04-02-2021 Rx Renewal Phillip Bernal Work Phone: -[facility] DO Work Phone: Start: 03-02-2021 Patient encounter procedure Phillip Patricia Bernal Work Phone: [facility] [place] [place] Work Phone: Start: 02-04-2021 Rx Renewal Phillip Bernal Work Phone: [facility] DO Work Phone: Start: 01-26-2021 Rx Renewal Phillip Patricia Bernal Work Phone: [facility] DO Work Phone: Start: 11-30-2020 Office outpatient vi sit 25 minutes Phillip Bernal Work Phone: [facility] DO Work Phone: Start: 11-22-2020 FUV, Provider: Rudi Abdi, Status: Pen, Time: 4:00 PM Phillip Bernal Work Phone: [facility] Work Phone: Start: 11-22-2020 Office outpatient vi sit 25 minutes Phillip Bernal Work Phone: [facility] Work Phone: Start: 11-21-2020 AUDIT Phillip Patricia Bernal Work Phone: [facility] Work Phone: Start: 07-24-2020 Rx Renewal Phillip Bernal Work Phone: [facility] Work Phone: Start: 05-24-2020 Patient encounter procedure Rudi Abdi MD [id number] Work Phone: Start: 12-06-2019 Patient encounter procedure [facility] [place] Work Phone: Start: 10-06-2019 Patient encounter procedure Rudi Abdi [facility] Work Phone: Start: 04-01-2019 Patient encounter procedure Rudi [place] [facility] Work Phone: Start: 12-04-2018 Patient encounter procedure Rudi Abdi [facility] Work Phone: Start: 10-01-2018 Patient encounter procedure Rudi Abdi [facility] Work Phone: Start: 04-02-2018 Patient encounter procedure Rudi Abdi [facility] Work Phone: Start: 12-18-2017 Patient encounter procedure Rudi Abdi [facility] Work Phone: Start: 09-16-2017 Patient encounter procedure Rudi Abdi [facility] Work Phone: Start: 06-11-2017 Patient encounter procedure Rudi Abdi [facility] Work Phone: Start: 06-06-2017 Ambulatory PROVIDER UNKNOWN Facili ty:[id number] Start: 05-23-2017 Ambulatory FLAQUITO ABIOSE Facility :[id number] Start: 05-19-2017 Ambulatory FLAQUITO ABIOSE Facility :[id number] Start: 05-02-2017 Patient encounter procedure Rudi Abdi [facility] Work Phone: Patient encounter status Phillip Bernal Work Phone: [facility] Work Phone: Procedures Date Procedure Procedure Detail Performing Clinician Start: 10-29-2024 X-ray of foot, three or more views Dr. Mayco Fenton MD Work Phone: Start: 10-29-2024 Urnls dip stick/tabl et reagent auto microscopy Dr. Mayco Fenton MD Work Phone: Start: 10-29-[address] Mayco Fenton MD Work Phone: Start: 09-22-[address] Mayco Fenton MD Work Phone: Start: 09-22-2024 Gram stain microscopy D sami Fenton MD Work Phone: Start: 09-22-2024 End: 09-22-2024 Microbial culture, routine Dr. Mayco paredes MD Work Phone: Start: 09-09-2024 Prostate specific an tigen measurement [...] Boyd MD Work Phone: Start: 09-19-2023 Lipid 1995 panel - S rl or Plasma Phillip Bernal MD Start: 07-23-2023 Hemoglobin glycosylated a1c Heriberto Diamond Davalos DO Work Phone: Start: 03-06-2023 Lipid 1996 panel - S rl or Plasma Heriberto Davalos DO Work Phone: Start: 05-05-2020 Lipid 1996 panel - S rl or Plasma Phillip Bernal MD Work Phone: Start: 03-23-2020 Antibody screen Comment on above: Order Comment: CONSE RVATION CBN: NO Commerce: MAIN Transfusion Status: CONSERVATION Blood Bank service requested: TYPE AND SCREEN Comments To Phleb: PATIENT IN SDS Performed By: #### B [id number] #### Test performed at: [place] [id number] Start: 01-26-2020 Antibody screen Comment on above: Order Comment: Trans fusion Status: CONSERVATION Blood Bank service requested: TYPE AND SCREEN Comments To Phleb: pre-op in PAT Performed By: #### B [id number] #### Test performed at: [place] [id number] Start: 10-05-2019 IO glucose, blood, f oscar [...] in detection of prostate cancer. Performed at: [facility] - [address] [place] [id number] Performed By: #### L ELANA WILLSON #### [facility] [address] [place] [address] Start: 11-24-2010 Total colonoscopy Phillip Patricia Dolores Work Phone: History of Inner Ear Surgery Rudi Parsonskham History of Spinal Arthrodesis Rudi [place] Procedure on back Phillip Alberts Will edisonmarilyn Work Phone: Prosthetic arthropla sty of the hip Phillip Bernal Work Phone: Tonsillectomy Rudi Parsonskham Total colonoscopy Phillip Solis priscila Work Phone: Total replacement of hip Dami carolina Bernal Work Phone: Plan of Treatment Date Care Activity Detail Author Start: 07-20-2028 DTaP/Tdap/Td Vaccine s (3 - Td or Tdap) DTaP/Tdap/Td Vaccines (3 - Td or Tdap) [facility] Start: 09-19-2025 End: 09-19-2025 Patient encounter procedure 09/19/2025 4:40 PM EDT Office Visit [facility] [id number] [place] [address] Dr [address]ierrez [address] [place] [phone] Giovanna Cook MD [address] [place] [address] Dr Gutierrez [address] [place] [address] [facility] Start: 09-19-2025 End: 03-23-2026 CBC W Auto Differential panel - Blood CBC and Auto Differential Lab Routine Large granular lymphocytic leukemia (Multi) Hereditary hemochromatosis Expected: 09/19/2025, Expires: 03/23/2026 [facility] Service Area Work Phone: Comment on above: Expected: 09/19/2025 , Expires: 03/23/2026 Start: 09-19-2025 End: 03-23-2026 Comprehensive metabolic 2000 panel - Serum or Plasma Comprehensive metabolic panel Lab Routine Large granular lymphocytic leukemia (Multi) Expected: 09/19/2025 (Approximate), Expires: 03/23/2026 [facility] Work Phone: Comment on above: Expected: 09/19/2025 (Approximate), Expires: 03/23/2026 Start: 09-19-2025 End: 03-23-2026 Ferritin [Mass/volume] in Serum or Plasma Ferritin Lab Routine Large granular lymphocytic leukemia (Multi) Hereditary hemochromatosis Expected: 09/19/2025 (Approximate), Expires: 03/23/2026 [facility] Work Phone: Comment on above: Expected: 09/19/2025 (Approximate), Expires: 03/23/2026 Start: 09-19-2025 End: 03-23-2026 Iron and Iron binding capacity panel - Serum or Plasma Iron and TIBC Lab Routine Large granular lymphocytic leukemia (Multi) Hereditary hemochromatosis Expected: 09/19/2025, Expires: 03/23/2026 [facility] Work Phone: Comment on above: Expected: 09/19/2025 , Expires: 03/23/2026 Start: 04-13-2025 Lipid panel Lipid Panel [facility] Start: 12-31-2024 Screening for malign ant neoplasm of colon [facility] Start: 10-30-2024 [facility] Start: 10-29-2024 Amputation of toe Amputation T oe/Foot (Left) [facility] Start: 10-29-2024 Bacterial nucleic ac id assay [facility] Start: 10-29-2024 End: 10-29-2024 [facility] Start: 10-29-2024 Admission procedure [facility] Start: 10-29-2024 Ankle brachial press ure index [facility] Start: 10-29-2024 Elevation of affecte d extremity [facility] Start: 10-29-2024 Fluoroscopic guidance O.R. Fluoro fo r C-Arm [facility] Start: 10-29-2024 X-ray of foot, two views Foot 2 View s [facility] Start: 10-29-2024 Hospital admission, emergency, from emergency room, medical nature [facility] Start: 10-29-2024 End: 10-29-2024 [facility] Start: 10-29-2024 Partial thromboplast in time, activated [facility] Start: 10-29-2024 Prothrombin time [facility] Start: 10-29-2024 Bacteria identified in Blood by Culture Blood Culture [facility] Start: 10-29-2024 Bacteria identified in Urine by Culture Urine Culture [facility] Start: 10-29-2024 Microscopic observat ion [Identifier] in Unspecified specimen by Gram stain [facility] Start: 10-29-2024 Wound Culture Wound Culture [facility] Start: 10-18-2024 Influenza vaccination [facility] Start: 10-11-2024 End: 04-19-2025 Comprehensive metabolic 2000 panel - Serum or Plasma Comprehensive metabolic panel Lab Routine Mixed hyperlipidemia Expected: 10/11/2024 (Approximate), Expires: 04/19/2025 [facility] Work Phone: Comment on above: Expected: 10/11/2024 (Approximate), Expires: 04/19/2025 Start: 10-11-2024 End: 04-19-2025 Hemoglobin A1c/Hemoglobin.total in Blood Hemoglobin A1C Lab Routine Type 2 diabetes mellitus with stage 3b chronic kidney disease, without long-term current use of insulin (Multi) Expected: 10/11/2024 (Approximate), Expires: 04/19/2025 [facility] Service Area Work Phone: Comment on above: Expected: 10/11/2024 (Approximate), Expires: 04/19/2025 Start: 10-11-2024 End: 04-19-2025 Lipid 1996 panel - Serum or Plasma Lipid panel Lab Routine Mixed hyperlipidemia Expected: 10/11/2024 (Approximate), Expires: 04/19/2025 [facility] Work Phone: Comment on above: Expected: 10/11/2024 (Approximate), Expires: 04/19/2025 Start: 10-11-2024 End: 04-19-2025 Prostate specific Ag [Mass/volume] in Serum or Plasma Prostate Spec.Ag,Screen Lab Routine Prostate cancer screening Expected: 10/11/2024 (Approximate), Expires: 04/19/2025 [facility] Work Phone: Comment on above: Expected: 10/11/2024 (Approximate), Expires: 04/19/2025 Start: 10-11-2024 End: 04-19-2025 Serum Protein Electrophoresis + Immunofixation Serum Protein Electrophoresis + Immunofixation Lab Routine Neuropathy Expected: 10/11/2024 (Approximate), Expires: 04/19/2025 [facility] Work Phone: Comment on above: Expected: 10/11/2024 (Approximate), Expires: 04/19/2025 Start: 10-11-2024 End: 04-19-2025 TSH with reflex to Free T4 if abnormal TSH with reflex to Free T4 if abnormal Lab Routine Thyroid disorder screening Expected: 10/11/2024 (Approximate), Expires: 04/19/2025 [facility] Work Phone: Comment on above: Expected: 10/11/2024 (Approximate), Expires: 04/19/2025 Start: 10-11-2024 End: 04-19-2025 Urate [Mass/volume] in Serum or Plasma Uric acid Lab Routine Hyperuricemia Expected: 10/11/2024 (Approximate), Expires: 04/19/2025 [facility] Work Phone: Comment on above: Expected: 10/11/2024 (Approximate), Expires: 04/19/2025 Start: 09-20-2024 End: 09-20-2024 Patient encounter procedure 09/20/2024 3:40 PM EDT Office Visit [facility] [address] [place] [address] Dr Gutierrez [address] [place] [phone] Giovanna Cook MD [address] [place] [address] Dr Gutierrez [address] [place], [place] [id number] [facility] Start: 09-18-2024 Lipid panel Lipid Panel [facility] Start: 09-18-2024 Prostate specific antigen measurement PSA Prostate Cancer Screening [facility] Start: 08-27-2024 End: 08-27-2024 Patient encounter procedure 08/27/2024 3:45 PM EDT Office Visit [facility] [address] [place] [phone] [place] [address] [address] Department [place] [address] [facility] Start: 08-17-2024 End: 08-17-2024 Patient encounter procedure 08/17/2024 3:45 PM EDT Appointment [facility] [address] [place] [phone] [facility] Start: 08-17-2024 End: 02-15-2025 US Thyroid gland US thyroid Imaging Routine Thyroid nodule Expected: 08/17/2024, Expires: 02/15/2025 [facility] Service Area Work Phone: Comment on above: Expected: 08/17/2024 , Expires: 02/15/2025 Start: 07-11-2024 Hemoglobin A1c measurement Diabetes: Hemoglobin A1C [facility] Start: 04-19-2024 End: 04-19-2024 Patient encounter procedure 04/19/2024 4:00 PM EST Office Visit [facility] [address] [place] [address] [place] [address] [place] [address] [facility] Start: 03-21-2024 End: 10-27-2024 CBC W Auto Differential panel - Blood CBC and Auto Differential Lab Routine Benign essential hypertension Mixed hyperlipidemia Expected: 03/21/2024 (Approximate), Expires: 10/27/2024 [facility] Service Area Work Phone: Comment on above: Expected: 03/21/2024 (Approximate), Expires: 10/27/2024 Start: 03-21-2024 End: 10-27-2024 Comprehensive metabolic 2000 panel - Serum or Plasma Comprehensive metabolic panel Lab Routine Benign essential hypertension Mixed hyperlipidemia Expected: 03/21/2024 (Approximate), Expires: 10/27/2024 [facility] Work Phone: Comment on above: Expected: 03/21/2024 (Approximate), Expires: 10/27/2024 Start: 03-21-2024 End: 10-27-2024 Hemoglobin A1c/Hemoglobin.total in Blood Hemoglobin A1C Lab Routine Type 2 diabetes mellitus with stage 3b chronic kidney disease, without long-term current use of insulin (Multi) Expected: 03/21/2024 (Approximate), Expires: 10/27/2024 [facility] Work Phone: Comment on above: Expected: 03/21/2024 (Approximate), Expires: 10/27/2024 Start: 03-21-2024 End: 10-27-2024 Lipid 1996 panel - Serum or Plasma Lipid panel Lab Routine Mixed hyperlipidemia Expected: 03/21/2024 (Approximate), Expires: 10/27/2024 [facility] Work Phone: Comment on above: Expected: 03/21/2024 (Approximate), Expires: 10/27/2024 Start: 03-21-2024 End: 10-27-2024 Microalbumin/Creatinine [Mass Ratio] in Urine Albumin-Creatinine Ratio, Urine Random Lab Routine Type 2 diabetes mellitus with stage 3b chronic kidney disease, without long-term current use of insulin (Multi) Expected: 03/21/2024 (Approximate), Expires: 10/27/2024 [facility] Work Phone: Comment on above: Expected: 03/21/2024 (Approximate), Expires: 10/27/2024 Start: 03-21-2024 End: 10-27-2024 Urate [Mass/volume] in Serum or Plasma Uric acid Lab Routine Hyperuricemia Expected: 03/21/2024 (Approximate), Expires: 10/27/2024 [facility] Work Phone: Comment on above: Expected: 03/21/2024 (Approximate), Expires: 10/27/2024 Start: 03-17-2024 End: 03-17-2024 Patient encounter procedure 03/17/2024 3:30 PM EST Office Visit [place] [id number] [facility] [address] [place] [phone] Gideon Thompson MD [address] [facility] [address] [place] [address] [place] [address] Start: 03-06-2024 Lipid panel Lipid Panel [facility] Start: 03-06-2024 Urine screening for protein Diabetes: Urine Protein Screening [facility] Start: 03-03-2024 End: 03-03-2024 Patient encounter procedure 03/03/2024 4:00 PM EST Office Visit [facility] [address] [place] [phone] [place] [address] [place] [address] [facility] Start: 03-03-2024 End: 03-03-2025 Cobalamin (Vitamin B12) [Mass/volume] in Serum or Plasma Vitamin B12 Lab Routine Neuropathy Expected: 03/03/2024 (Approximate), Expires: 03/03/2025 [facility] Work Phone: Comment on above: Expected: 03/03/2024 (Approximate), Expires: 03/03/2025 Start: 03-03-2024 End: 03-03-2025 Magnesium [Mass/volume] in Serum or Plasma Magnesium Lab Routine Hypomagnesemia Expected: 03/03/2024 (Approximate), Expires: 03/03/2025 [facility] Service Area Work Phone: Comment on above: Expected: 03/03/2024 (Approximate), Expires: 03/03/2025 Start: 02-13-2024 End: 02-13-2024 Patient encounter procedure [facility] Start: 02-03-2024 End: 02-03-2024 Patient encounter procedure 02/03/2024 1:00 PM EST Office Visit [place] [id number] [facility] [address] [place] [phone] Gideon Thompson MD [address] [facility] [address] [place], [place] [phone] [place] [phone] Start: 01-27-2024 Hemoglobin A1c measurement Diabetes: Hemoglobin A1C [facility] Start: 12-25-2023 End: 12-25-2023 Patient encounter procedure 12/25/2023 3:30 PM EST Office Visit [place] [phone] [facility] [address] [place] [phone] Gideon Thompson MD 6681 [facility] 1, [address] [place] [address] [place] [phone] Start: 12-25-2023 Yearly Adult Physical Yearly Adult P [facility] Start: 11-26-2023 End: 11-26-2023 Patient encounter procedure 11/26/2023 9:30 AM EDT Office Visit [place] [phone] [facility] 1 [facility] [address] [place] [phone] Mahesh Santos, HARNESSMAKER-[employer]PLER HEAD [address] [facility] [address], [address] [place] [address] [place] [phone] Start: 11-25-2023 End: 11-25-2023 Patient encounter procedure 11/25/2023 4:00 PM EDT Office Visit [facility] [address] [place] [phone] [place] [address] [place], [place] [id number] [facility] Start: 11-12-2023 End: 11-12-2023 Patient encounter procedure 11/12/2023 3:30 PM EDT Office Visit [facility] [address] [place] [address] [place] [address] [address] Department [place] [address] [facility] Start: 11-12-2023 End: 11-11-2024 US Thyroid gland US thyroid Imaging Routine Thyroid nodule Expected: 11/12/2023, Expires: 11/11/2024 [facility] Service Area Work Phone: Comment on above: Expected: 11/12/2023 , Expires: 11/11/2024 Start: 11-11-2023 End: 11-10-2024 XR Abdomen Single view XR abdomen 1 view Imaging Routine Nephrolithiasis Expected: 11/11/2023, Expires: 11/10/2024 [facility] Service Area Work Phone: Comment on above: Expected: 11/11/2023 , Expires: 11/10/2024 Start: 10-28-2023 End: 10-28-2023 Patient encounter procedure 10/28/2023 4:00 PM EDT Office Visit [facility] [address] [place] [phone] [place] [address] [place] [address] [facility] Start: 10-23-2023 Hemoglobin A1c measurement Diabetes: Hemoglobin A1C [facility] Start: 10-19-2023 Influenza vaccination [facility] Start: 09-22-2023 End: 09-22-2023 Patient encounter procedure [facility] Start: 09-19-2023 End: 09-19-2023 ambulatory 09/19/2023 11:00 AM EDT Lab [facility] [id number] [place] [address] [place] [address] [facility] [address] [facility] Start: 09-18-2023 End: 07-22-2024 Comprehensive metabolic 2000 panel - Serum or Plasma Comprehensive metabolic panel Lab Routine Benign essential hypertension Type 2 diabetes mellitus with stage 3b chronic kidney disease, without long-term current use of insulin (Multi) Expected: 09/18/2023 (Approximate), Expires: 07/22/2024 [facility] Service Area Work Phone: Comment on above: Expected: 09/18/2023 (Approximate), Expires: 07/22/2024 Start: 09-18-2023 End: 07-22-2024 Lipid 1996 panel - Serum or Plasma Lipid panel Lab Routine Mixed hyperlipidemia Expected: 09/18/2023 (Approximate), Expires: 07/22/2024 [facility] Work Phone: Comment on above: Expected: 09/18/2023 (Approximate), Expires: 07/22/2024 Start: 09-18-2023 End: 07-22-2024 Parathyrin.intact [Mass/volume] in Serum or Plasma PTH, intact Lab Routine Stage 3b chronic kidney disease (Multi) Expected: 09/18/2023 (Approximate), Expires: 07/22/2024 [facility] Work Phone: Comment on above: Expected: 09/18/2023 (Approximate), Expires: 07/22/2024 Start: 09-18-2023 End: 07-22-2024 Phosphate [Mass/volume] in Serum or Plasma Phosphorus Lab Routine Stage 3b chronic kidney disease (Multi) Expected: 09/18/2023 (Approximate), Expires: 07/22/2024 [facility] Work Phone: Comment on above: Expected: 09/18/2023 (Approximate), Expires: 07/22/2024 Start: 09-18-2023 End: 07-22-2024 Prostate specific Ag [Mass/volume] in Serum or Plasma Prostate Spec.Ag,Screen Lab Routine Prostate cancer screening Expected: 09/18/2023 (Approximate), Expires: 07/22/2024 [facility] Work Phone: Comment on above: Expected: 09/18/2023 (Approximate), Expires: 07/22/2024 Start: 09-18-2023 End: 07-22-2024 TSH with reflex to Free T4 if abnormal TSH with reflex to Free T4 if abnormal Lab Routine Thyroid disorder screening Expected: 09/18/2023 (Approximate), Expires: 07/22/2024 [facility] Work Phone: Comment on above: Expected: 09/18/2023 (Approximate), Expires: 07/22/2024 Start: 09-18-2023 End: 07-22-2024 Urate [Mass/volume] in Serum or Plasma Uric acid Lab Routine Hyperuricemia Expected: 09/18/2023 (Approximate), Expires: 07/22/2024 [facility] Work Phone: Comment on above: Expected: 09/18/2023 (Approximate), Expires: 07/22/2024 Start: 09-18-2023 End: 07-22-2024 Urinalysis complete panel - Urine Urinalysis with Reflex Microscopic Lab Routine Benign essential hypertension Type 2 diabetes mellitus with stage 3b chronic kidney disease, without long-term current use of insulin (Multi) Expected: 09/18/2023 (Approximate), Expires: 07/22/2024 [facility] Work Phone: Comment on above: Expected: 09/18/2023 (Approximate), Expires: 07/22/2024 Start: 07-23-2023 End: 07-23-2023 Patient encounter procedure 07/23/2023 4:00 PM EDT Office Visit [facility] [address] [place] [address] [place] [address] [place] [address] [facility] Start: 06-05-2023 Hemoglobin A1c measurement Diabetes: Hemoglobin A1C [facility] Start: 04-23-2023 End: 04-23-2023 Patient encounter procedure 04/23/2023 4:00 PM EST Office Visit [facility] [address] [place] [address] [place] [address] [place] [address] [facility] Start: 03-04-2023 End: 03-04-2023 Patient encounter procedure 03/04/2023 4:00 PM EST Office Visit [facility] [address] [place] [address] [place] [address] [place] [address] [facility] Start: 12-20-2022 Urine screening for protein Diabetes: Urine Protein Screening [facility] Start: 12-19-2022 Hemoglobin A1c measurement Diabetes: Hemoglobin A1C [facility] Start: 12-12-2022 PHYSICAL, Provider: Phillip Bernal, Status: Pen, Time: 4:30 PM PHYSICAL, Provider: Phillip Bernal, Status: Pen, Time: 4:30 PM [facility] Work Phone: Start: 10-18-2022 Influenza vaccination Influenza Vacc ine (#1) [facility] Start: 2022 RSV High Risk: (Elde rly (60+) or Population) (1 - Risk 60-74 years 1-dose series) RSV High Risk: (Elderly (60+) or Population) (1 - Risk 60-74 years 1-dose series) [facility] Start: 2022 RSV patient s and/or patients aged 60+ years (1 - 1-dose 60+ series) RSV patients and/or patients aged 60+ years (1 - 1-dose 60+ series) [facility] Start: 07-03-2022 FUV, Provider: Phillip Bernal, Status: Pen, Time: 4:30 PM FUV, Provider: Phillip Bernal, Status: Pen, Time: 4:30 PM [facility] Work Phone: Start: 04-24-2022 Glaucoma screening Diabetes: R etinopathy Screening [facility] Start: 12-26-2021 FUVEXT, Provider: Rudi Abdi, Status: Pen, Time: 4:30 PM FUVEXT, Provider: Rudi Abdi, Status: Pen, Time: 4:30 PM [facility] Work Phone: Start: 12-14-2021 FUVEXT, Provider: Rudi Abdi, Status: Pen, Time: 4:00 PM FUVEXT, Provider: Rudi Abdi, Status: Pen, Time: 4:00 PM [facility] Work Phone: Start: 10-04-2021 PHYSICAL, Provider: Phillip Bernal, Status: Pen, Time: 4:15 PM PHYSICAL, Provider: Phillip Bernal, Status: Pen, Time: 4:15 PM [facility] DO Work Phone: Start: 09-05-2021 FUV, Provider: Rudi Abdi, Status: Pen, Time: 4:00 PM FUV, Provider: Rudi Abdi, Status: Pen, Time: 4:00 PM [facility] Work Phone: Start: 06-20-2021 FUV, Provider: Phillip Bernal, Status: Pen, Time: 4:00 PM FUV, Provider: Phillip Bernal, Status: Pen, Time: 4:00 PM [facility] DO Work Phone: Start: 06-06-2021 FUV, Provider: Phillip Bernal, Status: Pen, Time: 4:00 PM FUV, Provider: Phillip Bernal, Status: Pen, Time: 4:00 PM [facility] DO Work Phone: Start: 05-23-2021 FUV, Provider: Rudi Abdi, Status: Pen, Time: 4:00 PM FUV, Provider: Rudi Abdi, Status: Pen, Time: 4:00 PM [facility] Work Phone: Start: 05-05-2021 Lipid panel Lipid Panel [facility] Start: 04-24-2021 Glaucoma screening Diabetes: R etinopathy Screening [facility] Start: 04-13-2021 FUV, Provider: Marco Ludwig, Status: Pen, Time: 4:00 PM FUV, Provider: Marco Ludwig, Status: Pen, Time: 4:00 [facility] Work Phone: Start: 11-30-2020 FUV, Provider: Phillip Bernal, Status: Pen, Time: 4:00 PM FUV, Provider: Phillip Bernal, Status: Pen, Time: 4:00 PM [facility] Work Phone: Start: 11-22-2020 FUV, Provider: Rudi Abdi, Status: Pen, Time: 4:00 PM FUV, Provider: Rudi Abdi, Status: Pen, Time: 4:00 PM [facility] Work Phone: Start: 04-29-2009 Pneumococcal vaccination Pneum ococcal Vaccine (2 of 2 - PCV) [facility] Start: 04-29-2009 Pneumococcal Vaccine : Pediatrics (0 to 5 Years) and At-Risk Patients (6 to 64 Years) (2 - PCV) Pneumococcal Vaccine: Pediatrics (0 to 5 Years) and At-Risk Patients (6 to 64 Years) (2 - PCV) [facility] Start: 04-29-2009 Pneumococcal Vaccine : Pediatrics (0 to 5 Years) and At-Risk Patients (6 to 64 Years) (2 of 2 - PCV) Pneumococcal Vaccine: Pediatrics (0 to 5 Years) and At-Risk Patients (6 to 64 Years) (2 of 2 - PCV) [facility] Start: 1981 Hepatitis A Vaccines (1 of 2 - Risk 2-dose series) Hepatitis A Vaccines (1 of 2 - Risk 2-dose series) [facility] Start: 1981 Zoster Vaccines (1 of 2) Zoste r Vaccines (1 of 2) [facility] Start: 1980 Hepatitis C [facility] Start: 03-17-1973 IPV Vaccines (2 of 3 - 4-dose series) IPV Vaccines (2 of 3 - 4-dose series) [facility] Start: 1972 Diabetic foot examination Diabetes: Foot Exam [facility] Start: 1972 Glaucoma screening Diabetes: R etinopathy Screening [facility] Start: 07-31-1967 COVID-19 Vaccine (#1) COVID-19 Vacci ne (#1) [facility] Start: 07-31-1963 MMR Vaccines (1 of 1 - Standard series) MMR Vaccines (1 of 1 - Standard series) [facility] Start: 1962 HIV screening HIV Screening [facility] Start: 1962 Screening for malign ant neoplasm of colon [facility] Start: 1962 Yearly Adult Physical Yearly Adult P hysical [facility] Bilirubin measuremen t, urine [facility] End: 02-07-2024 ECG 12 lead [facility] Service Area Work Phone: Comment on above: Once for 1 Occurrenc es starting 02/07/2024 until 02/07/2024 End: 10-27-2023 Extra Tubes [facility] Service Area Work Phone: Comment on above: Once (Lab) for 1 Occ urrences starting 10/27/2023 until 10/27/2023 Hemoglobin [Presence ] in Urine [facility] Hemoglobin A1c/Hemoglobin.total in Blood [facility] INR in Blood by Coagulation assay [facility] Lactic acid measurement [facility] Lactic acid measurement [facility] Measurement of keton es in urine using dipstick [facility] Microscopic urinalysis [facility] Organism count, microscopic method [facility] pH of Urine [facility] Specific gravity of Urine [facility] Urine culture [facility] Urine dipstick for glucose [facility] Urine dipstick for leukocyte esterase [facility] Urine dipstick for nitrite [facility] Urine dipstick for protein [facility] Urine examination [facility] End: 10-27-2023 Urine Wilson Tube [facility] Work Phone: Comment on above: Once for 1 Occurrenc es starting 10/27/2023 until 10/27/2023 Urine microscopy: epithelial cells [facility] Urine microscopy: re d cells [facility] Urobilinogen [Presen ce] in Urine [facility] End: 08-02-2023 US Thyroid gland [facility] Service Area Work Phone: Comment on above: Once for 1 Occurrenc es starting 08/02/2023 until 08/02/2023 End: 01-21-2024 US Thyroid gland [facility] Service Area Work Phone: Comment on above: Once for 1 Occurrenc es starting 01/21/2024 until 01/21/2024 White blood cell count [facility] Wound microscopy, culture and sensitivities [facility] End: 11-13-2023 XR Abdomen Single view [facility] Service Area Work Phone: Comment on above: Once for 1 Occurrenc es starting 11/13/2023 until 11/13/2023 -[place] [facility] [place] Work Phone: NEGATED: Highlighted row has been ruled out! Planned Goals not documented [facility] Work Phone: Immunizations Immunization Date Immunization Notes Care Provider Marcos mcdonnell 07-20-2018 tetanus and diphther ia toxoids, adsorbed, preservative free, for adult use (2 Lf of tetanus toxoid and 2 Lf of diphtheria toxoid) Phillip Bernal Work Phone: [facility] DO Work Phone: 04-23-2013 hepatitis B vaccine, adult dosage Phillip Bernal Work Phone: [facility] DO Work Phone: 08-11-2012 hepatitis B vaccine, adult dosage Phillip Bernal Work Phone: [facility] DO Work Phone: 07-03-2012 hepatitis B vaccine, adult dosage Phillip Bernal Work Phone: [facility] DO Work Phone: 04-29-2008 pneumococcal polysaccharide vaccine, 23 valent Phillip Bernal Work Phone: [facility] DO Work Phone: 04-29-2008 tetanus toxoid, redu miguel diphtheria toxoid, and acellular pertussis vaccine, adsorbed Phillip Bernal Work Phone: [facility] DO Work Phone: 02-17-1973 poliovirus vaccine, inactivated Heriberto Davalos DO Work Phone: [facility] Work Phone: 02-17-1973 rubella virus vaccine Alma Rosa Davalos DO Work Phone: [facility] Work Phone: 02-17-1973 poliovirus vaccine, unspecified formulation Stj 1 [facility] Work Phone: Payers Date Payer Category Payer Self-pay 2021 [employer] [facility] [id number] 2021 Unknown 2021 Unknown [id number] 2021 Unknown [id number] 1960 Unknown [id number] [id number] 1962 Unknown [id number] 2.16.840.1.381493.3.579.2.1068 1962 Unknown [id number] 2.16.840.1.701743.3.579.2.1068 1962 Unknown [id number] 2.16.840.1.703364.3.579.2.159 1962 Unknown [id number] 2.16.840.1.424761.3.579.2.4 1962 Unknown [id number] 2.16.840.1.056815.3.579.2.1243 1962 Unknown [id number] 2.16.840.1.816485.3.579.2.1243 1962 Unknown [id number] 2.16.840.1.105038.3.579.2.1243 1962 Unknown [id number] 2.16.840.1.204004.3.579.2.1243 1962 Unknown [id number] 2.16.840.1.917841.3.579.2.1243 1962 Unknown [id number] 2.16.840.1.518401.3.579.2.1243 1962 Unknown [id number] 2.840.1.955070.3.579.2.1243 1962 Unknown [id number] 2.840.1.052696.3.579.2.1243 1962 Unknown [id number] 2.840.1.080379.3.579.2.1242 1962 Unknown [id number] 2.16.840.1.756770.3.579.2.1242 1962 Unknown [id number] 2.16840.1.106304.3.579.2.1242 1962 Unknown [id number] 2.16840.1.993231.3.579.2.1244 1962 Unknown [id number] 2.16840.1.050275.3.579.2.1244 1962 Unknown [id number] 2.16840.1.881970.3.579.2.1245 Private Health Insurance [id number] Unknown [id number] Unknown [id number] Unknown [id number] 2.16840.1.648108.3.579.2.462 Unknown [id number] 2.16.840.1.831997.3.579.2.462 Unknown [id number] 2.16.840.1.196326.3.579.2.462 Unknown [id number] 2.16.840.1.491825.3.579.2.462 Unknown [id number] Social History Date Type Detail Facility Start: 12-23-2022 End: 04-19-2024 Never a smoker [facility] Work [facility]: Start: 12-23-2022 End: 10-29-2024 Tobacco smoking status NHIS Never smoked tobacco [facility] Start: 12-23-2022 End: 04-19-2024 Alcohol Use Disorder Identification Test - Consumption [AUDIT-C] [facility] Work Phone: How often to you hav e a drink containing alcohol? Monthly or less [facility] Work Phone: How many standard dr inks containing alcohol do you have on a typical day? 1 or 2 [facility] Work Phone: How often do you hav e 6 or more drinks on 1 occasion? Never [facility] Work Phone: Start: 1960 Sex Assigned At Not on file [facility] Work Phone: Start: 12-13-2022 End: 04-19-2024 Exposure to SARS-CoV-2 (event) Not sure [facility] Start: 03-04-2023 End: 07-23-2023 Tobacco use and exposure Smokeless tobacco non-user [facility] Work Phone: Start: 03-04-2023 End: 04-19-2024 Alcohol intake Current drinker of alcohol (finding) [facility] Work Phone: Start: 03-03-2024 Alcohol Comment weekly [facility] Work Phone: Tobacco smoking stat us NHIS Unknown if ever smoked [facility] Work Phone: Start: 1960 Sex Assigned At Male [facility] Start: 01-12-2022 Sex Male [facility] NEGATED: Highlighted row - - [place] Work Phone: NEGATED: Highlighted rowStart: NINF History of tobacco use Passive smoker [facility] Work Phone: Medical Equipment Procedure Code [...] Rudi Mayo MD Start : 17-Apr-2018 Active 100 Strip [...] strip i nto the skin once daily. [id number] Start: 04-17-2018 Use as directed to test daily. [id number] Inject 1 strip i nto the skin once daily. [id number] Start: 04-19-2024 End: 04-19-2025 Inject 1 strip u nder the skin once daily. Use as directed to test daily. [id number] Start: 04-19-2024 End: 04-19-2025 Functional Status Date Assessment Result Facility 04-19-2024 Patient Health Questionnaire 2 item (PHQ-2) [Reported] [facility] Work Phone: 03-03-2024 Patient Health Questionnaire 2 item (PHQ-2) [Reported] [facility] Work Phone: 02-07-2024 [place] - suicide severity rating scale screener - recent [C-SSRS] [facility] Work Phone: 11-25-2023 Patient Health Questionnaire 2 item (PHQ-2) [Reported] [facility] Work Phone: NEGATED: Highlighted row Functional performance Functional status health issues are not documented [facility] Work Phone: Mental Status Date Assessment Result Facility NEGATED: Highlighted row Cognitive function [Interpretation] Cognitive status health issues are not documented [facility] Work Phone: Clinical Notes 11-22-2020 to 10-29-2024 Note Date & Type Note Facility 10-29-2024 Consult note [facility] 10-29-2024 Radiology Diagnostic study note [facility] Imaging Services [address] [place] [id number] Foot min 3 Views MR#: [id number] Acct: [id number] Name: JEFFERSON CARCAMO Rep #: [id number] : 1960 M 64 From: Marcin Wing MD PCP: Dr. Mayco Fenton MD Status: REG E R Study:Foot min 3 Views Date of Exam: 02/10 Exam# [id number] Ordering Dr: Mikey Nunez MD PROCEDURE: FOOT MIN 3 VIEWS 10/29/2024 REASON FOR EXAM: DIABETIC FOOT INFECTION/OSTEOMYELITIS TECHNIQUE: Procedure Code: RADFO Modality: DX Procedure: FOOT MIN 3 VIEWS Laterality: Left COMPARISON: None available FINDINGS: Bones: No visible fracture. No bone destruction to suggest osteomyelitis. Joints: Normal alignment. Diffuse degenerative changes. Soft tissues: Extensive soft tissue swelling and emphysema noted throughout the left 5th toe. RAD/Foot min 3 Views IMPRESSION: No acute fractures or dislocations. Soft tissue edema and emphysema at the 5th toe. If there is additional concern for osteomyelitis, recommend further evaluation with MRI. Reading Location: [facility] CC: Dr. Mayco Fenton MD; Dr. Sriram Nunez MD ~ Car Hostler: Signed [facility] 10-29-2024 Discharge summary [facility] 10-29-2024 Discharge summary Note Date/Time October 29, 2024 7:19pm [facility] Medical Records Department [address] [place] [address] Emergency Department Summary 10/29/24 MR#: [id number] Acct: [id number] Name: JEFFERSON CARCAMO Rep #:[id number] : 1960 64 From: Sriram Nunez MD PCP: Dr. Mayco Fenton MD Status:REG E R Location: ED ADDENDUM by Dr. Sriram Nunez MD on 10/29/24 at 1918 Sinus tachycardia rate of 106. ND interval 132 ms per cures duration 78 ms. QTduration is 320 ms. [place] is normal. Other than sinus tachycardia the EKG is normal 10/29/241918<Electronically signed by Sriram Nunez MD> Cosigner Signature (if applicable): cc: Dr. Mayco Fenton MD ~* Signed HPI History of Present Illness Chief Complaint: Wound Check Detail of Chief Complaint: Infection left foot and little toe Informant: patient and spouse/S.O. Onset/Context/Timing Onset: Weeks Context: Gradual Onset Timing: Continuous Quality: Discoloration left little toe, drainage from foot wound and temperatureof Location: Left foot Current Severity: Patient has no pain due to diabetic neuropathy Maximum Severity: No pain due to diabetic neuropathy Worsened by: Presumed due to diabetes and PAD Relieved by: Nothing Associated Symptoms Associated Symptoms: Fever and chills and drainage from infected left foot Narrative Narrative: Patient is a 64-year-old male. 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 He is present under the care of speck dyer. Body Shop Supervisor is not in this area. He presents because of a temperature 103.7 at home. Having drainage from the little toe bottom of his foot and his little toe was purple. He states he has no sensation. He is on no immunosuppressive meds. He has no history of medic fever, heart murmur or mitral valve prolapse. There is no history of SBE. Patient denies headache, visual, ocular auditory symptoms. Patient [place] cardiac respiratory symptoms. Patient denies vomiting, diarrhea or abdominal pain. Has had some intermittent nausea. Prior similar symptoms: Yes Recent Illness/Hospitalization: No PFSH PFSH Medical History Physical exam, pre-employment Home Medications ?Medication ?Instructions ?Recorded ?Last Taken ?Type allopurinol 200 mg tablet 300 mg PO QDAY 06/22/2410/18 History atorvastatin 40 mg tablet 10 mg PO QDAY 06/22/2410/28 History glimepiride 2 mg tablet 6 mg PO QAM 06/22/24 5 History lisinopril 10 mg tablet 5 mg PO QDAY 06/22/24 History metformin 500 mg tablet 500 mg PO QDAY 06/22/2410/18 History metoprolol tartrate 50 mg tablet 25 mg PO QDAY 5 10/29/24 History rivaroxaban 10 mg tablet (Xarelto) 10 mg PO QDAY 06/2210/28/24 History Allergy/AdvReac Type Severity Reaction Status Date / Time No Known Allergies Allergy Verified 10/29/24 16:39 Family History Mother Lung cancer Father Lung cancer Surgical History History of hip replacement, total Social History (Updated 10/29/24 @ 18:[address] Sriram Nunez MD) household members: spouse Smoking Status: Never smoker EXAM Physical Exam Const Vital Signs: 10/29/24 16:40 10/29/24 16:44 10/29/24 17:39 Temperature 100.2 F H 100.2 F H Temperature Source Oral Oral Pulse Rate 108 H 108 H Respiratory Rate 18 18 Blood Pressure 160/71 H 160/71 H Blood Pressure Mean 100 100 Pulse Ox 99 99 Oxygen Delivery Method Room Air Room Air Room Air 10/29/24 17:39 10/29/24 17:43 10/29/24 17:53 Temperature 100.2 F H Temperature Source Oral Pulse Rate 105 H Respiratory Rate 24 H Blood Pressure 162/80 H 162/80 H Blood Pressure Mean 107 107 Pulse Ox 100 Oxygen Delivery Method Room Air Room Air 10/29/24 17:54 10/29/24 18:00 10/29/24 18:00 Temperature 99.6 F H Temperature Source Oral Pulse Rate 106 H Respiratory Rate 20 H Blood Pressure 152/74 H 152/74 H Blood Pressure Mean 100 100 Pulse Ox 100 99 Oxygen Delivery Method Room Air Room Air 10/29/24 19:00 10/29/24 19:00 Temperature 99.6 F H Temperature Source Oral Pulse Rate 102 H Respiratory Rate 20 H Blood Pressure 151/71 H 151/71 H Blood Pressure Mean 97 97 Pulse Ox 100 Oxygen Delivery Method Room Air Positive well nourished and well developed Constitutional Narrative: Patient appears ill. Vital signs are marked for tachycardia, hypertension and fever General Appearance ED: well developed HEENT Reports dry mucous membranes Negative for trauma Mouth ED: Yes dry mucous membranes Mouth: dry mucous membranes Eyes PERRL and EOMs intact bilaterally General Eye ED: Negative for pale conjunctiva or scleral icterus Neck no lymphadenopathy, supple and no JVD Chest Wall inspection of chest normal and palpation of chest normal Resp normal respiratory effort and clear to auscultation bilaterally Cardio regular rhythm, S1 normal heart sound and S2 normal heart sound Rate: tachycardic GI normal to inspection, nondistended, normoactive bowel sounds, non-tender, non-distended and no masses; Negative for hepatosplenomegaly GI Narrative: There is no inguinal lymphadenopathy on the left. Extremity normal to inspection Extremity Narrative: Patient has necrotic left little toe, there is a open wound size of a chickpea plantar surface of his left foot near the junction of the fifth MTP joint. There is no lymphangitis. There is no popliteal lymphadenopathy. There is purulent material noted from the toe. Culture of the toe and plantar surface ofthe foot were obtained. Neuro oriented x3, CN's II-XII intact bilaterally and No no sensory deficits noted Sensorium / Orientation: alert Psych mental status grossly normal Skin No no rashes or lesions noted and No no wounds Sepsis Attestation Sepsis Alert: Yes Sepsis Attestation: Agree w/Sepsis Date exam was performed: 10/29/24 Time exam was performed: 17:01 Possible Source of Sepsis: Skin/soft tissue and Wound MDM MDM MDM Narrative Medical decision making narrative: Sepsis workup was initiated. Concern for necrotizing fasciitis, diabetic foot infection, osteo myelitis. Will obtain images appropriate blood work and podiatry was consulted. Dr. Cheney is presently in the department and looking at patient because of the subcu air noted on his x-ray. Lab Data Attestation: I reviewed the patient's lab results. Lab results narrative: White count is elevated 22.9 thousand with shift. H&H 11.9 and 36.2. PTT is slightly elevated 19.3 PTT is low. Comprehensive metabolic panel is mild [place] for mild hyponatremia and hypochloremia. BUN is elevated 21 to creatinine 1.31. Estimated GFR 62. Blood sugar is 251. Labs: Laboratory Results - last 24 hr 10/29/24 10/29/24 17:35 18:20 WBC 22.9 H RBC 3.92 L Hgb 11.9 L Hct 36.2 L MCV 92.3 MCH 30.4 MCHC 32.9 RDW Std Deviation 42.7 RDW Coeff of Sujey 12.6 Plt Count 245 MPV 9.9 Immature Gran % (Auto) 0.900 Neut % (Auto) 84.4 H Lymph % (Auto) 4.1 L [place] % (Auto) 7.8 Eos % (Auto) 2.6 Baso % (Auto) 0.2 Absolute Neuts (auto) 19.4 H Absolute Lymphs (auto) 0.93 Nucleated RBC % 0 PT 19.3 H INR 1.6 APTT 21.5 L Sodium 130 L Potassium 4.3 Chloride 95 L Carbon Dioxide 22.9 Anion Gap 12 BUN 21 H Creatinine 1.31 H Estim Creat Clear Calc 68.18 Est GFR (MDRD) Non-Af 62 BUN/Creatinine Ratio 15.8 Glucose 251 H Lactic Acid 2.0 Calcium 9.2 Total Bilirubin 1.09 AST 41 H ALT 57 H Alkaline Phosphatase 146 H Total Protein 7.2 Albumin 3.4 Globulin 3.9 Albumin/Globulin Ratio 0.9 Urine Color Yellow Urine Clarity Sl. Cloudy Urine pH 6.0 Ur Specific [place] 1.015 Urine Protein 30 H Urine Glucose (UA) 100 H Urine Ketones Negative Urine Occult Blood 10 H Urine Nitrite Negative Urine Bilirubin Negative Urine Urobilinogen Normal Ur Leukocyte Esterase Negative Additional labs Radiography Chest X-Ray - ED: Read by ED Physician (Three-view x-ray of the foot was independent reviewed interpreted by me. There is subcutaneous air. There appears to be destruction of the proximal phalanx of the little toe and possibly head ofthe fifth metatarsal.) Management Discussion w/another healthcare provider: Hospitalist (Dr. Irene will see patient after after surgery since it is emergent. Plan is admit ICU) and Teasel Setter (Case was discussed with Dr. Cheney. He informing that he initially was treating the patient prior to him going to Dr. Glass.) Treatment and Re-Evaluation :: Sepsis workup was initiated after seeing patient. He was treated with Zosyn andvancomycin. Podiatry was consulted. In light of the x-ray findings Dr. Wright repaged. Comments:: Plan is OR after seen by podiatry. He requested the hospitalist see him in the emergency department for emergent clearance. Critical Care Time Critical Care Time: Yes Critical care time (excluding procedures): 30-74 minutes (33), Including time spent: (History, physical, documentation, independent or potation laboratory results and imaging consultation with podiatry, discussion with hospitalist, facilitate transfer to the OR for emergent surgery. This), Discussing w/Patient&/or Family/Airport Operations Duty Manager, Discussing w/Consultants and Arranging Admission or Transfer Discharge Plan Dx/Rx/DC Orders Clinical Impression: Diabetic infection of left foot, Hypertension, Sepsis, Acute osteomyelitis of left foot, Subcutaneous air, Sinus tachycardia Disposition Disposition: Acute Care Hospital [facility] What to do if you have Problems For any increased pain, shortness of breath, bleeding, nausea or vomiting, chestpain, or any unexpected problems, contact your Primary Care Provider. Call [facility] ([phone]) or report to the closest Emergency Room. Call 911 if necessary. 10/29/241917 <Electronically signed by Sriram Nunez MD> Cosigner Signature (if applicable): CC: Dr. Mayco Fenton MD ~ Signed [facility] Work Phone: 1(244) 414-883208-04-2025 History of Present illness Narrative* Giovanna Cook MD - 09/20/2024 3:40 PM EDT Patient ID: Jefferson Carcamo is a 64 y.o. male. [place]erring [place]: [place] [id number] [place] [address] Primary Care Provider: Heriberto Davalos DO Visit Type: Follow Up Subjective HPI How was my bloodwork? I lost a lot of weight on ozempic but I had a lot of side effects from it Review of Systems Constitutional: Negative. HENT: Negative. Eyes: Negative. Respiratory: Negative. Cardiovascular: Negative. Gastrointestinal: Negative. Endocrine: Negative. Genitourinary: Negative. Musculoskeletal: Negative. Skin: Negative. Neurological: Negative. Hematological: Negative. Psychiatric/Behavioral: Negative. Objective BSA: 2.2 meters squared BP 135/77 (BP Location: Right arm, Patient Position: Sitting, BP Cuff Size: Adult) Pulse 86 Temp 36.6 C (97.9 F) (Temporal) Resp 16 Wt 98 kg (216 lb 0.8 oz) SpO2 97% BMI 31.00 kg/m has a past medical history of Anesthesia of skin (03/02/2021), Cervicalgia (12/30/2016), Chronic kidney disease, stage 3 unspecified (Multi) (10/06/2019), Chronic [...] disorders involving the immune mechanism (03/02/2021), Personal history of other diseases of [...] encounter (11/30/2020), and Venous insufficiency (chronic) (peripheral). has a past surgical history that includes Tonsillectomy (05/02/2017); Inner ear surgery (05/02/2017); Spinal fusion (05/02/2017); Other surgical history (11/30/2020); Other surgical history (11/30/2020); and Other surgical history (05/30/2021). Family History[1] Oncology History No history exists. Jefferson Carcamo reports that he has never smoked. He has never been exposed to tobacco smoke. He hasnever used smokeless tobacco. He reports current alcohol use of about 5.0 standard drinks of alcohol per week. He reports no history of drug use. Physical Exam Vitals reviewed. Constitutional: Appearance: Normal appearance. HENT: Head: Normocephalic. Mouth/Throat: Mouth: Mucous membranes are moist. Eyes: Extraocular Movements: Extraocular movements intact. Pupils: Pupils are equal, round, and reactive to light. Cardiovascular: Rate and Rhythm: Normal rate and regular rhythm. Pulses: Normal pulses. Heart sounds: Normal heart sounds. Pulmonary: Effort: Pulmonary effort is normal. Breath sounds: Normal breath sounds. Abdominal: Palpations: Abdomen is soft. Musculoskeletal: General: Normal range of motion. Cervical back: Normal range of motion and neck supple. Skin: General: Skin is warm. Neurological: General: No focal deficit present. Mental Status: He is alert and oriented to person, place, and time. Psychiatric: Mood and Affect: Mood normal. Behavior: Behavior normal. WBC Date/Time Value Ref Range Status 09/16/2024 04:54 PM 12.9 (H) 4.4 - 11.3 x10*3/uL Final 02/07/2024 02:52 PM 10.6 4.4 - 11.3 x10*3/uL Final 10/27/2023 11:45 AM 17.1 (H) 4.4 - 11.3 x10*3/uL Final WHITE BLOOD CELL COUNT Date/Time Value Ref Range Status 04/13/2024 03:45 PM 10.5 3.8 - 10.8 Thousand/uL Final nRBC Date Value Ref Range Status 09/16/2024 0.0 0.0 - 0.0 /100 WBCs Final 02/07/2024 0.0 0.0 - 0.0 /100 WBCs Final 10/27/2023 0.0 0.0 - 0.0 /100 WBCs Final RBC Date Value Ref Range Status 09/16/2024 4.20 (L) 4.50 - 5.90 x10*6/uL Final 02/07/2024 4.81 4.50 - 5.90 x10*6/uL Final 10/27/2023 4.21 (L) 4.50 - 5.90 x10*6/uL Final RED BLOOD CELL COUNT Date Value Ref Range Status 04/13/2024 4.38 4.20 - 5.80 Million/uL Final Hemoglobin Date Value Ref Range Status 09/16/2024 12.8 (L) 13.5 - 17.5 g/dL Final 02/07/2024 14.4 13.5 - 17.5 g/dL Final 10/27/2023 12.9 (L) 13.5 - 17.5 g/dL Final HEMOGLOBIN Date Value Ref Range Status 04/13/2024 13.9 13.2 - 17.1 g/dL Final Hematocrit Date Value Ref Range Status 09/16/2024 39.4 (L) 41.0 - 52.0 % Final 02/07/2024 43.9 41.0 - 52.0 % Final 10/27/2023 38.5 (L) 41.0 - 52.0 % Final HEMATOCRIT Date Value Ref Range Status 04/13/2024 40.0 38.5 - 50.0 % Final MCV Date/Time Value Ref Range Status 09/16/2024 04:54 PM 94 80 - 100 fL Final 04/13/2024 03:45 PM 91.3 80.0 - 100.0 fL Final 02/07/2024 02:52 PM 91 80 - 100 fL Final 10/27/2023 11:45 AM 91 80 - 100 fL Final MCH Date/Time Value Ref Range Status 09/16/2024 04:54 PM 30.5 26.0 - 34.0 pg Final 04/13/2024 03:45 PM 31.7 27.0 - 33.0 pg Final 02/07/2024 02:52 PM 29.9 26.0 - 34.0 pg Final 10/27/2023 11:45 AM 30.6 26.0 - 34.0 pg Final MCHC Date/Time Value Ref Range Status 09/16/2024 04:54 PM 32.5 32.0 - 36.0 g/dL Final 04/13/2024 03:45 PM 34.8 32.0 - 36.0 g/dL Final Comment: For adults, a slight decrease in the calculated MCHC value (in the range of 30 to 32 g/dL) is most likely not clinically significant; however, it should be interpreted with caution in correlation with other red cell parameters and the patient's clinical condition. 02/07/2024 02:52 PM 32.8 32.0 - 36.0 g/dL Final 10/27/2023 11:45 AM 33.5 32.0 - 36.0 g/dL Final RDW Date/Time Value Ref Range Status 09/16/2024 04:54 PM 12.6 11.5 - 14.5 % Final 04/13/2024 03:45 PM 13.0 11.0 - 15.0 % Final 02/07/2024 02:52 PM 12.2 11.5 - 14.5 % Final 10/27/2023 11:45 AM 13.0 11.5 - 14.5 % Final Platelets Date/Time Value Ref Range Status 09/16/2024 04:54 PM 311 150 - 450 x10*3/uL Final 02/07/2024 02:52 PM 360 150 - 450 x10*3/uL Final 10/27/2023 11:45 AM 294 150 - 450 x10*3/uL Final PLATELET COUNT Date/Time Value Ref Range Status 04/13/2024 03:45 PM 299 140 - 400 Thousand/uL Final MPV Date/Time Value Ref Range Status 04/13/2024 03:45 PM 10.5 7.5 - 12.5 fL Final Neutrophils % Date/Time Value Ref Range Status 09/16/2024 04:54 PM 66.3 40.0 - 80.0 % Final 02/07/2024 02:52 PM 67.7 40.0 - 80.0 % Final 10/27/2023 11:45 AM 88.9 40.0 - 80.0 % Final Immature Granulocytes %, Automated Date/Time Value Ref Range Status 09/16/2024 04:54 PM 0.2 0.0 - 0.9 % Final Comment: Immature Granulocyte Count (IG) includes promyelocytes, myelocytes and metamyelocytes but does not include bands. Percent differential counts (%) should be interpreted in the context of the absolute cell counts (cells/UL). 02/07/2024 02:52 PM 0.3 0.0 - 0.9 % Final Comment: Immature Granulocyte Count (IG) includes promyelocytes, myelocytes and metamyelocytes but does not include bands. Percent differential counts (%) should be interpreted in the context of the absolute cell counts (cells/UL). 10/27/2023 11:45 AM 0.4 0.0 - 0.9 % Final Comment: Immature Granulocyte Count (IG) includes promyelocytes, myelocytes and metamyelocytes but does not include bands. Percent differential counts (%) should be interpreted in the context of the absolute cell counts (cells/UL). Lymphocytes % Date/Time Value Ref Range Status 09/16/2024 04:54 PM 25.1 13.0 - 44.0 % Final 02/07/2024 02:52 PM 24.0 13.0 - 44.0 % Final 10/27/2023 11:45 AM 6.9 13.0 - 44.0 % Final LYMPHOCYTES Date/Time Value Ref Range Status 04/13/2024 03:45 PM 40.6 % Final Monocytes % Date/Time Value Ref Range Status 09/16/2024 04:54 PM 7.2 2.0 - 10.0 % Final 02/07/2024 02:52 PM 7.5 2.0 - 10.0 % Final 10/27/2023 11:45 AM 3.3 2.0 - 10.0 % Final MONOCYTES Date/Time Value Ref Range Status 04/13/2024 03:45 PM 8.3 % Final Eosinophils % Date/Time Value Ref Range Status 09/16/2024 04:54 PM 0.8 0.0 - 6.0 % Final 02/07/2024 02:52 PM 0.2 0.0 - 6.0 % Final 10/27/2023 11:45 AM 0.1 0.0 - 6.0 % Final EOSINOPHILS Date/Time Value Ref Range Status 04/13/2024 03:45 PM 2.3 % Final Basophils % Date/Time Value Ref Range Status 09/16/2024 04:54 PM 0.4 0.0 - 2.0 % Final 02/07/2024 02:52 PM 0.3 0.0 - 2.0 % Final 10/27/2023 11:45 AM 0.4 0.0 - 2.0 % Final BASOPHILS Date/Time Value Ref Range Status 04/13/2024 03:45 PM 0.5 % Final Neutrophils Absolute Date/Time Value Ref Range Status 09/16/2024 04:54 PM 8.55 (H) 1.20 - 7.70 x10*3/uL Final Comment: Percent differential counts (%) should be interpreted in the context of the absolute cell counts (cells/uL). 02/07/2024 02:52 PM 7.15 1.20 - 7.70 x10*3/uL Final Comment: Percent differential counts (%) should be interpreted in the context of the absolute cell counts (cells/uL). 10/27/2023 11:45 AM 15.25 (H) 1.20 - 7.70 x10*3/uL Final Comment: Percent differential counts (%) should be interpreted in the context of the absolute cell counts (cells/uL). Immature Granulocytes Absolute, Automated Date/Time Value Ref Range Status 09/16/2024 04:54 PM 0.03 0.00 - 0.70 x10*3/uL Final 02/07/2024 02:52 PM 0.03 0.00 - 0.70 x10*3/uL Final 10/27/2023 11:45 AM 0.06 0.00 - 0.70 x10*3/uL Final Lymphocytes Absolute Date/Time Value Ref Range Status 09/16/2024 04:54 PM 3.23 1.20 - 4.80 x10*3/uL Final 02/07/2024 02:52 PM 2.53 1.20 - 4.80 x10*3/uL Final 10/27/2023 11:45 AM 1.18 (L) 1.20 - 4.80 x10*3/uL Final Monocytes Absolute Date/Time Value Ref Range Status 09/16/2024 04:54 PM 0.93 0.10 - 1.00 x10*3/uL Final 02/07/2024 02:52 PM 0.79 0.10 - 1.00 x10*3/uL Final 10/27/2023 11:45 AM 0.57 0.10 - 1.00 x10*3/uL Final Eosinophils Absolute Date/Time Value Ref Range Status 09/16/2024 04:54 PM 0.10 0.00 - 0.70 x10*3/uL Final 02/07/2024 02:52 PM 0.02 0.00 - 0.70 x10*3/uL Final 10/27/2023 11:45 AM 0.01 0.00 - 0.70 x10*3/uL Final ABSOLUTE EOSINOPHILS Date/Time Value Ref Range Status 04/13/2024 03:45 PM 242 15 - 500 cells/uL Final Basophils Absolute Date/Time Value Ref Range Status 09/16/2024 04:54 PM 0.05 0.00 - 0.10 x10*3/uL Final 02/07/2024 02:52 PM 0.03 0.00 - 0.10 x10*3/uL Final 10/27/2023 11:45 AM 0.06 0.00 - 0.10 x10*3/uL Final ABSOLUTE BASOPHILS Date/Time Value Ref Range Status 04/13/2024 03:45 PM 53 0 - 200 cells/uL Final No components found for: PT No results found for: APTT Medication Documentation Review Audit Reviewed by Kary George MA (Non Cdl Driver) on 09/20/24 at 1534 Medication Order Taking? Sig Documenting Provider Last Dose Status allopurinol (Zyloprim) 300 mg tablet [id number] Yes TAKE 1 TABLET BY MOUTH EVERY DAY Heriberto Davalos DO Active atorvastatin (Lipitor) 10 mg tablet [id number] Yes TAKE 1 TABLET BY MOUTH EVERY DAY Heriberto Davalos, DO Active blood sugar diagnostic (Accu-Chek Neena Plus test strp) strip [id number] Yes Inject 1 strip into theskin once daily. Heriberto Davalos, DO Active glimepiride (Amaryl) 4 mg tablet [id number] Yes TAKE 1 & 1/2 TABLETS BY MOUTH EVERY DAY Heriberto Davalos, DO Active lancets (Accu-Chek Softclix Lancets) misc [id number] Yes Inject 1 strip under the skin once daily. Use as directed to test daily. Heriberto Davalos, DO Active lisinopril 10 mg tablet [id number] Yes Take 0.5 tablets (5 mg) by mouth once daily. 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 -was on therapeutic phlebotomy regularly until he became anemic -labs done on 09/16/2024 included COMP and iron panel + ferritin -results reviewed--creatinine 1.04, AST 20, total bili 0.6, ALT 17, TIBC 280, sat 19%, ferritin 76 -will continue to see him annually 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 -also has T cell rearrangement -labs done on 09/16/2024 included CBC -results reviewed--wbc 12.9, hgb 12.8, plt 311,000, ANC 90908, abs lymph 3230 abs mono 930 -has not developed any anemia or neutropenia 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 CBC and Auto Differential Iron and TIBC Ferritin Large granular lymphocytic leukemia (Multi) C91.Z0 Relevant Orders Clinic Appointment Request Follow Up; GIOVANNA COOK; [facility] CBC and Auto Differential Comprehensive metabolic panel Iron and TIBC Ferritin Giovanna Cook MD [1] Family History Problem Relation Name Age of Onset No Known Problems Mother No Known Problems Father Thyroid disease Sister Pancreatic cancer Sister Heart disease Maternal Grandfather Other (Diabetes mellitus) Paternal Grandmother Hypertension Paternal Grandmother Heart disease Paternal Grandfather Other (Myocardial infarction) Paternal Grandfather Cancer Other Aunt [facility] Work Phone: 1(881) 409-266108-04-2025 Instructions* Patient Instructions* Giovanna Cook MD - 09/20/2024 3:40 PM EDT See you again in 1 year [facility] Work Phone: 1([phone]) 324-596905-06-2025 Evaluation note* Diagnosis Onset Date Resolution Status Admit Date Physical exam, pre-employment acute June 22, 2024 4:16pm [facility] Work Phone: 1(378) 654-391003-03-2025 History of Present illness Narrative* Heriberto Davalos DO - 04/19/2024 4:00 PM EST Subjective Patient [...] today and showed lipid panel total cholesterol [id number] HDL 51 triglycerides 79, LDL 44, magnesium [...] Check a PSA level documented in this [facility] Work Phone: [phone]) 836-409601-15-2025 History of Present illness Narrative* Heriberto Davalos DO - 03/03/2024 4:00 PM EST Subjective [...] check a magnesium level documented in this [facility] Work Phone: 1(280) 337-293612-27-2024 History of Present illness Narrative* Goyo Snider [...] truegrowth based on the the rate of change person that time. -Thyroid nodule: Nodule has remained [...] concerns Goyo Snider MD [facility] Work Phone: 1([phone]) 348-366812-21-2024 Hospital Discharge instructions* Discharge Instructions* [place] [...] Care Everywhere. * Upper Respiratory Infection ED ([place]) * Viral Upper Respiratory Infection Discharge Instructions, Adult ([place]) [facility] Work Phone: [phone]) 490-899310-23-2024 History of Present illness Narrative* Mahesh Santos, HARNESSMAKER-TEMPLER HEAD - 12/10/2023 4:00 PM EDT UROLOGIC INITIAL [...] - see comments. lancets (Accu-Chek Softclix Lancets) [facility] [place] as directed to test daily. metFORMIN [...] plan as below Plan: RTC with Dr. Thompson Encouraged to contact us in the interim with any questions, concerns documented in this [facility] Work Phone: [phone]) 131-190310-08-2024 History of Present illness Narrative* Heriberto Davalos DO - 11/25/2023 4:00 PM EDT Subjective [...] with urology still forrecheck documented in this [facility] Work Phone: 1([phone]) 853-922109-25-2024 History of Present illness Narrative* Goyo Snider [...] with XR left hip/pelvis 12/06/19. ACCESSION NUMBER(S): [id number] ORDERING CLINICIAN: THERON RIBERA TECHNIQUE: CT of [...] truegrowth based on the the rate of change person that time. Since his last ultrasound was 3-1/2 months ago he would like to get a short-term follow-up that will be 6 months from his last ultrasound. At that time he will decide on needle biopsy versus continued surveillance We will reassess his left ear at the next visit Goyo Snider MD documented in this [facility] Work Phone: 1([phone]) 334-942609-24-2024 History of Present illness Narrative* Heriberto Davalos, - 11/11/2023 9:30 AM EDT Subjective Patient ID: Jefferson Carcamo is a 63 y.o. male who presents for Follow-up (Follow up on BP). HPI Patient following up today with multiple complaints. He had sent us a lengthy Wordsey[employer] message with multiple points. Therefore we advised him to come into the office to discuss his concerns. We again reviewed his last ER visit from 10/28/2023 as well as last office visit with Dr. 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 No obvious abnormalities of the eyes grossly. Pupils are equal round reactive to light extraocular muscles intact. No evidence of infection. Limited funduscopic exam was negative. documented in this [facility] Work Phone: 1([phone]) 236-761009-10-2024 History of Present illness Narrative* Heriberto Davalos [...] the right. Continue Flomax. [facility] Work Phone: [phone]) 206-730809-09-2024 Hospital Discharge instructions* Discharge Instructions* Theron Ribera PA-C - 10/27/2023 4:29 PM EDT Purchase a urine strainer from any pharmacy if you would like the stone to be tested by urology. Take the Percocet sparingly for severe pain. Take the Zofran for nausea/vomiting. Take the Flomax once daily. Increase your fluid intake to help pass the stone. Follow-up with urology [facility] Work Phone: [phone]) 509-691109-09-2024 Emergency department Note* Theron Ribera PA-C - 10/27/2023 11:16 AM EDT Images from the original note were not included. 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 States it came out of nowhere woke him up around 630. States he had 1 episode of nonbloody nonbilious vomiting. Has not tried to eat or drink today due to the vomiting. Denies any abnormal ingestions. Did have a few beers at the [employer] yesterday however does drink similar amounts on [...] reading to minimize errors, minor errors in coagulating drying supervisor may be present call for questions. Theron Ribera PA-C 10/27/23 8685 documented in this [facility] Work Phone: 1([phone]) 366-921209-09-2024 Physician Emergency department Note* Theron Ribera PA-C - 10/27/2023 11:16 AM EDT Images from the original note were not included. 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 States it came out of nowhere woke him up around 630. States he had 1 episode of nonbloody nonbilious vomiting. Has not tried to eat or drink today due to the vomiting. Denies any abnormal ingestions. Did have a few beers at the [place] [employer] yesterday however does drink similar amounts on [...] reading to minimize errors, minor errors in coagulating drying supervisor may be present call for questions. Theron Ribera PA-C 10/27/23 1634 [facility] Work Phone: 1(653) 889-810906-05-2024 History of Present illness Narrative* Heriberto Davalos, - 07/23/2023 4:00 PM EDT Subjective Patient [...] Relevant Orders Prostate Spec.Ag,Screen [facility] Work Phone: 1(843) 898-361303-06-2024 History of Present illness Narrative* Heriberto Davalos DO - 04/23/2023 4:00 PM EST Subjective Patient ID: Jefferson Carcamo is a 62 y.o. male who presents for Follow-up (Ozempic /Needs pen needlesif continuing ). HPI Patient hasn't had any effects from going off the Vytorin tablets. Patient Tylenol as needed for pain which is very infrequent. Patient has history of Ankylosing spondylosis. He had seen a title agent in the past. Sugars were 175-250 before [...] mg/3 mL) pen injector [facility] Work Phone: 1(430) 211-565802-06-2024 History of Present illness Narrative* Heriberto Davalos [...] (Flexeril) 10 mg tablet [facility] Work Phone: 1([phone]) 602-891401-16-2024 History of Present illness Narrative* Heriberto Davalos [...] metabolic panel (Completed) Diabetes mellitus, type 2 (CMS/HCC) - Primary E11.9 Relevant Orders CBC and Auto Differential (Completed) Comprehensive metabolic panel (Completed) Lipid panel (Completed) Hemoglobin A1C (Completed) Albumin , Urine Random (Completed) Neuropathy G62.9 Relevant Orders Vitamin B12 (Completed) Thyroid disorder screening Z13.29 Relevant Orders TSH with reflex to Free T4 if abnormal (Completed) documented in this [facility] Work Phone: 1(997) 383-804011-06-2023 History of Present illness Narrative* Phillip Bernal [...] skin once daily. lancets (Accu-Chek Softclix Lancets) [facility] peninsulac Use as directed to test daily. No [...] linked to this encounter. [facility] Work Phone: 1([phone]) 301-247102-05-2022 History of Present illness Narrative* Patient is [...] history of kidney stones. Is followed by road tester increase hemoglobin A1c noted PSA within normal [...] for annual well and proceed from there. [facility] DO Work Phone: [phone]) 844-957501-14-2022 History of Present illness NarrativeKetanry is a followup after physical therapy. He [...] got an extensive home workout regimen from [facility] therapy. He says his pain is gone [...] no bowel or bladder complaints at this visit.[facility] [place] Work Phone: [phone] History of Present illness NarrativeHe continues glimepiride 4 mg pills, 1/2 pill twice daily Metformin 1000 mg pills, 1/2 pill twice daily, and Januvia 25 mg daily. He test his fingerstick glucose once daily at different times with readings in the morning generally around 100 mg/dL. Postprandial readings are occasionally in the [id number], often in the evening. He has had no serious hypoglycemic episodes. He has lost 3 pounds since last visit. Other medications include lisinopril hydrochlorothiazide metoprolol and atorvastatin.[facility] Work Phone: Consult note Author Javy Lynch [facility] Note Date/Time October 29, 2024 7:56pm [facility] Medical Records Department [address] [place] [address] Consultation 10/29/241940 MR#: [id number] Acct: [id number] Name: JEFFERSON CARCAMO Rep #:[id number] : 1960 64 From: Javy Lynch DPM PCP: Dr. Mayco Fenton MD Status:ADM I N Location: ICU CVICU20 1-1 Assessment & Plan Assessment/Plan (1) Gangrene, not elsewhere classified: (2) Acute osteomyelitis of left foot: (3) Cellulitis of left lower limb: (4) Diabetes mellitus with diabetic polyneuropathy: (5) Type 2 diabetes mellitus with foot ulcer: PLAN: Plan Evaluation performed. Reviewed diagnostic data. There is severe infection left foot with gas gangrene to the 5th ray. Discussed this with patient in detail, reviewing condition and treatment options. Given the severe infection with gas present recommended emergent debridement of all nonviable, necrotic and infectedsoft tissue and bone from left foot with at least a 5th toe and 5th metatarsal amputation. Reviewed rationale of this with him in detail. He expressed understanding and agreement and he would like to proceed with this procedure at this time. We will add on to go to the operating room for this. I spoke with ER physician as well as with director corporate communications anesthesiologist. Patient has been started on IV antibiotics Vanc and Zosyn. Will obtain wound cultures intraoperatively. Blood cultures have been obtained and results pending. LEAS have been ordered for further evaluation of lower extremity arterial flow. Plans for OR as noted above, thank you for consultation. HPI Consult Data Date of Consult: 10/29/24 HPI Narrative Reason for Consultation: Left foot infection HPI Narrative: JEFFERSON CARCAMO, is a 64 M who presents to ER by Dr. Glass for left diabetic foot infection. I am familiar to patient for his ulceration right 2nd toe, he saw me 1 time for this ulceration early September 2024, he did not follow up with me, rather he just saw Dr. Glass, he continues to have that ulceration as well as anew ulceration right sub 5th metatarsal which was debrided by Dr. Glass, but patient's acute issue now is left diabetic foot infection. He relates he believes this just happened today - relates the left 5th toe turned black today.He is not feeling well. He has diabetes with peripheral neuropathy. WBC noted juana nearly 23, and left foot xrays with significant gas gangrene. I was consultedby the Emergency Physician Dr. Nunez. Patient has been started on IV antibioticsVanc and Zosyn. [facility] Medical History Physical exam, pre-employment Home Medications ?Medication ?Instructions ?Recorded ?Last Taken ?Type allopurinol 200 mg tablet 300 mg PO QDAY 06/22/2410/18 History atorvastatin 40 mg tablet 10 mg PO QDAY 06/22/2410/28 History glimepiride 2 mg tablet 6 mg PO QAM 06/22/24 5 History lisinopril 10 mg tablet 5 mg PO QDAY 06/22/24 History metformin 500 mg tablet 500 mg PO QDAY 06/22/2410/18 History metoprolol tartrate 50 mg tablet 25 mg PO QDAY 5 10/29/24 History rivaroxaban 10 mg tablet (Xarelto) 10 mg PO QDAY 06/2210/28/24 History Allergy/AdvReac Type Severity Reaction Status Date / Time No Known Allergies Allergy Verified 10/29/24 16:39 Family History Mother Lung cancer Father Lung cancer Surgical History History of hip replacement, total Social History household members: spouse Smoking Status: Never smoker Physical Exam Const alert, oriented x3 and no apparent distress Constitutional Narrative: Left foot with necrotic left 5th toe, there is severe edema to left foot, there is significant erythema to the foot, there is ulceration to left 5th toe/5th metatarsal with necrosis down to bone and there is purulence pouring out of foot, site is boggy, fluctuant and significant maloder. CFT< 2 seconds to remaining toes bilateral. There is chronic ulceration distal right 2nd toe down to subcutaneous tissue and chronic appearing ulceration sub right 5th MTPJ down to subcutaneout tissue - tissue is mostly granular and some fibrotic tissue present. Left 5th toe is necrotic as already noted, otherwise no evidence of acute ischemia bilateral foot or ankle. Decreased sensation bilateral foot consistent with chronic peripheral neuropathy. No m/s POP or pain on ROM to footor ankle bilateral. 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 Lab / Micro Data 10/29/24 17:35 10/29/24 17:35 Labs: Laboratory Results - last 24 hr 10/29/24 17:35: WBC 22.9 H, RBC 3.92 L, Hgb 11.9 L, Hct 36.2 L, MCV 92.3, MCH 30.4, MCHC 32.9, RDW Std Deviation 42.7, RDW Coeff of Sujey 12.6, Plt Count 245, MPV 9.9, Immature Gran % (Auto) 0.900, Neut % (Auto) 84.4 H, Lymph % (Auto) 4.1 L, [place] % (Auto) 7.8, Eos % (Auto) 2.6, Baso % (Auto) 0.2, Absolute Neuts (auto)19.4 H, Absolute Lymphs (auto) 0.93, Nucleated RBC % 0, PT 19.3 H, INR 1.6, APTT21.5 L, Sodium 130 L 10/29/24 17:35: Sodium Cancelled, Potassium 4.3 10/29/24 17:35: Potassium Cancelled, Chloride 95 L 10/29/24 17:35: Chloride Cancelled, Carbon Dioxide 22.9 10/29/24 17:35: Carbon Dioxide Cancelled, Anion Gap 12 10/29/24 17:35: Anion Gap Cancelled, BUN 21 H 10/29/24 17:35: BUN Cancelled, Creatinine 1.31 H 10/29/24 17:35: Creatinine Cancelled, Estim Creat Clear Calc 68.18 10/29/24 17:35: Estim Creat Clear Calc Cancelled, Est GFR (MDRD) Non-Af 62 10/29/24 17:35: Est GFR (MDRD) Non-Af Cancelled, BUN/Creatinine Ratio 15.8 10/29/24 17:35: BUN/Creatinine Ratio Cancelled, Glucose 251 H 10/29/24 17:35: Glucose Cancelled, Lactic Acid 2.0, Calcium 9.2 10/29/24 17:35: Calcium Cancelled, Total Bilirubin 1.09 10/29/24 17:35: Total Bilirubin Cancelled, AST 41 H 10/29/24 17:35: AST Cancelled, ALT 57 H 10/29/24 17:35: ALT Cancelled, Alkaline Phosphatase 146 H 10/29/24 17:35: Alkaline Phosphatase Cancelled, C-React Prot Ext Range Cancelled, Total Protein 7.2 10/29/24 17:35: Total Protein Cancelled, Albumin 3.4 10/29/24 17:35: Albumin Cancelled, Globulin 3.9 10/29/24 17:35: Globulin Cancelled, Albumin/Globulin Ratio 0.9 10/29/24 17:35: Albumin/Globulin Ratio Cancelled 10/29/24 18:20: Urine Color Yellow, Urine Clarity Sl. Cloudy, Urine pH 6.0, Ur Specific [place] 1.015, Urine Protein 30 H, Urine Glucose (UA) 100 H, Urine Ketones Negative, Urine Occult Blood 10 H, Urine Nitrite Negative, Urine Bilirubin Negative, Urine Urobilinogen Normal, Ur Leukocyte Esterase Negative Imaging Radiology Impression Foot X-Ray 10/29/24 18:35 IMPRESSION: No acute fractures or dislocations. Soft tissue edema and emphysema at the 5th toe. If there is additional concern for osteomyelitis, recommend further evaluation with MRI. Reading [facility] 10/29/241955 <Electronically signed by Javy Lynch DPM> Cosigner Signature (if applicable): CC: Dr. Mayco Fenton MD~ Signed [facility] Work Phone: Evaluation note* Diagnosis Ankylosing spondylitis of thoracolumbar region (CMS/HCC)- Primary Benign essential hypertension Essential hypertension, benign Asymptomatic hyperuricemia Type 2 diabetes mellitus with other specified complication, without long-term current use of insulin (CMS/HCC) Hyperlipidemia, unspecified hyperlipidemia type documented in this encounter [facility] Work Phone: [phone] note* Diagnosis Type 2 diabetes mellitus with diabetic polyneuropathy, without long-term current use of insulin (CMS/HCC)- Primary Ankylosing spondylitis of thoracolumbar region (CMS/HCC) Benign essential hypertension Essential hypertension, benign Asymptomatic hyperuricemia Thyroid disorder screening Screening for thyroid disorder Neuropathy Mononeuritis of unspecified site documented in this encounter [facility] Work Phone: [phone] note* Diagnosis Type 2 diabetes mellitus with stage 3b chronic kidney disease, without long-term current use of insulin (CMS/HCC)- Primary Neck pain on left side Benign essential hypertension Essential hypertension, benign documented in this encounter [facility] Work Phone: [phone] note* Diagnosis Type 2 diabetes mellitus with stage 3b chronic kidney disease, without long-term current use of insulin (CMS/HCC)- Primary Ankylosing spondylitis of thoracolumbar region (CMS/HCC) documented in this encounter [facility] Work Phone: [phone] note* Diagnosis Multinodular goiter Nontoxic multinodular goiter documented in this encounter [facility] Work Phone: [phone] note* Diagnosis Nephrolithiasis Calculus of kidney documented in this encounter [facility] Work Phone: [phone] note* Diagnosis Thyroid nodule Nontoxic uninodular goiter documented in this encounter [facility] Work Phone: [phone] note* Diagnosis Type 2 diabetes mellitus with [...] Nontoxic multinodular goiter documented in this encounter [facility] Work Phone: [phone] note* Diagnosis Nephrolithiasis- Primary Calculus of kidney documented in this encounter [facility] Work Phone: [phone] note* Diagnosis Type 2 diabetes mellitus with stage 3b chronic kidney disease, without long-term current use of insulin (Multi)- Primary Benign essential hypertension Essential hypertension, benign Stage 3b chronic kidney disease (Multi) Mixed hyperlipidemia Hyperuricemia Other abnormal blood chemistry Nephrolithiasis Calculus of kidney documented in this encounter [facility] Work Phone: [phone] note* Diagnosis Nephrolithiasis- Primary Calculus of kidney Benign essential hypertension Essential hypertension, benign Stage 3b chronic kidney disease (Multi) Type 2 diabetes mellitus with stage 3b chronic kidney disease, without long-term current use of insulin (Multi) Left eye pain documented in this encounter [facility] Work Phone: [phone] note* Diagnosis Thyroid nodule Nontoxic uninodular goiter documented in this encounter [facility] Work Phone: [phone] note* Diagnosis Nephrolithiasis Calculus of kidney documented in this encounter [facility] Work Phone: [phone] note* Diagnosis Viral upper respiratory illness- Primary Viral upper respiratory illness documented in this encounter [facility] Work Phone: [phone] note* Diagnosis Thyroid nodule- Primary Nontoxic uninodular goiter documented in this encounter [facility] Work Phone: [phone] note* Diagnosis Benign essential hypertension- Primary Essential hypertension, benign Type 2 diabetes mellitus with stage 3b chronic kidney disease, without long-term current use of insulin (Multi) Hyperuricemia Other abnormal blood chemistry Nephrolithiasis Calculus of kidney Thyroid nodule Nontoxic uninodular goiter documented in this encounter [facility] Work Phone: [phone] note* Diagnosis Neuropathy- Primary Mononeuritis of unspecified site Hypomagnesemia Disorders of magnesium metabolism documented in this encounter [facility] Work Phone: [phone] note* Diagnosis Neuropathy- Primary Mononeuritis of unspecified [...] neoplasm of prostate documented in this encounter [facility] Work Phone: Evaluation note* 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, without mention of having achieved remission Ankylosing spondylitis of thoracolumbar region (Multi) Recurrent acute deep vein thrombosis (DVT) of both lower extremities Type 2 diabetes mellitus without complication, without long-term current use of insulin Benign essential hypertension Essential hypertension, benign Mixed hyperlipidemia documented in this encounter [facility] Work Phone: Evaluation note* Diagnosis Onset Date Resolution Status Admit Date Acute osteomyelitis of left foot acute October 29, 2024 7:35pm Cellulitis of left lower limb acute October 29, 2024 7:35pm Diabetes mellitus with diabetic polyneuropathy acute Septembe r 2024 7:35pm Diabetic infection of left foot acute October 29, 2024 7:35pm Gangrene, not elsewhere classified acute October 29, 2024 7:35pm Sepsis acute October 7:35pm Sinus tachycardia acute Septemb er 2024 7:35pm Subcutaneous air acute Septembe r 2024 7:35pm Type 2 diabetes mellitus wit h foot ulcer acute October 29, 2024 7:35pm Hypertension chronic October 292024 7:35pm [facility] Work Phone: History of Present illness Narrative* See previous lab work with lipid profile comp meta PSA. * 1. Diabetes mellitus 2. Hemochromatosis 3. Hypertension 4. Right shoulder pain see below 5. Ankylosing spondylitis 6. Lower back pain * Patient in the 1980s when he had his lower back surgery done over at [facility]. They did not know he had ankylosing [...] ago he was working out on his [employer]. He was on the incline bench press. When he was pushing upwhen he felt something sand mill grinder snapped in his right shoulder since then if he does not do that typeof maneuver it does not bother him as much. Has never gone back to normal any overhand motion or pushing forward type of motion exacerbates it he is right- hand dominant. He was just seen by outbound sales agent who is pleased that the leukemia has [...] control with above check labs with abovewith road tester 5. Leukemia stable excellent 6. Hemochromatosis control multifactorial with above 7. Diabetes mellitus controlled moderately per above patient knows what he can do better with diet insight etc. we will follow-up around May. We will get a PSA test in early May and follow-up post that all questions concerns addressed. [facility] DO Work Phone: History of Present [...] time just to get out of bed. [place] of 2020 he had the worst flareup [...] no bowel or bladder complaints at this visit.-[place] [facility] Work Phone: History of Present illness NarrativeHe [...] metoprolol. He is followed by multiple specialists. [facility] Work Phone: History of Present illness NarrativeHe [...] include metoprolol atorvastatin lisinopril hydrochlorothiazide Xarelto and allopurinol.[facility] Work Phone: History of Present illness NarrativeHe [...] episodes. Other medications include lisinopril/hydrochlorothiazide, allopurinol, and atorvastatin.[facility] Work Phone: Instructions* Name Dates Details Instructions not documented [id number] Work Phone: Reason for referral (narrative)* Consultation (Routine) - Authorized Specialty Diagnoses / Procedures Referred By Ralph alberts Referred To Contact Endocrinology Diagnoses Type 2 diabetes mellitus with stage 3b chronic kidney disease, without long-term current use of insulin ([facility]) [place] [address] [place] [address] [place] [address] [address] Referral ID Status Reason Start Date Expiration Date Visits Requested Visits Authorized [id number] Authorized Specialty Services Required 03/25/2023 03/24/2024 1 1 [facility] Work Phone: Reason for referral (narrative)* Consultation (Routine) - Authorized Specialty Diagnoses / Procedures Referred By Ralph alberts Referred To Contact Urology Diagnoses Nephrolithiasis Theron Ribera PA-C [address] [address] [facility] Department [place] [address] Referral ID Status Reason Start Date Expiration Date Visits Requested Visits Authorized [id number] Authorized Specialty Services Required 10/27/2023 10/26/[address] [facility] Work Phone: Reason for referral (narrative)No reason for referral information [facility]WBarnesville [facility] Work Phone: Reason for visit Narrative* Consultation (Routine) - Authorized Specialty Diagnoses / Procedures Referred By Ralph alberts Referred To Contact Urology Diagnoses Nephrolithiasis Theron Ribera PA-C [address] Department [place] [address] Phone: tel: fax: Referral ID Status Reason Start Date Expiration Date Visits Requested Visits Authorized [id number] Authorized Specialty Services Required 10/27/2023 10/26/2024 1 1 [facility] Work Phone: Rerpkr for visit Narrative* Imaging (Routine) - Authorized Specialty Diagnoses / Procedures Referred By Ralph alberts Referred To Contact Radiology Diagnoses Thyroid nodule [place] [address] [address] Department of Otolaryngology [place] [id number] Phone: tel: fax: Referral ID Status Reason Start Date Expiration Date Visits Requested Visits Authorized [id number] Authorized Perform Procedure 11/12/2023 11/11/2024 1 1 [facility] Work Phone: Summary Purpose Family History Grandfather Name Dates Details Family history of [...] Malignant neoplasm of lung Unknown Advance Directives Healthcare Agents on File Name Relationship Healthcare [...] Communication Kalia Lyle Sibling Health Care Agent 89 (Home) Advance Directive Response Recorded Date/ Time Do you have a Healthcare Power of Manager Intermediate? 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 chronic low back pain, xrays today * [...] Referral Specialty Diagnoses / Procedures Referred By Ralph alberts Referred To Contact Radiology Diagnoses Multinodular goiter [place] [address] [place] [address] Referral ID Status Reason Start Date Expiration Date Visits Requested Visits Authorized [id number] Authorized Perform Procedure 07/23/2023 07/22/2024 1 1 Specialty Diagnoses / Procedures Referred By Contac t Referred To Contact Radiology Diagnoses Nephrolithiasis Procedures XR abdomen 1 view Heriberto Davalos, [address] [place] [address] Referral ID Status Reason Start Date Expiration Date Visits Requested Visits Authorized [id number] Authorized Perform Procedure 11/11/2023 11/10/2024 1 1 Specialty Diagnoses / Procedures Referred By Contac t Referred To Contact Radiology Diagnoses Thyroid nodule [place] [address] [address] Department [place] [address] Referral ID Status Reason Start Date Expiration Date Visits Requested Visits Authorized [id number] Authorized Perform Procedure 11/12/2023 11/11/2024 1 1 Chief Complaint and Reason for Visit Chief Complaint Admit Date PE NON DOT PHYSICAL/ EDENILSON BRUSH June 222024 4:16pm PE NON DOT DRUG SCREEN, BAT/ EDENILSON BRU SH June 22, 2024 4:18pm Reason for Visit Admit Date Physical exam, pre-employment June 22, 2 025 4:16pm Chief Complaint Admit Date PE NON DOT PHYSICAL/ EDENILSON BRUSH June 222024 4:16pm PE NON DOT DRUG SCREEN, BAT/ EDENILSON BRU SH June 22, 2024 4:18pm [facility] September 22, 2024 5:5 1pm Chief Complaint Admit Date [facility] September 22, 2024 5:5 1pm Reason for Visit Admit Date Acute osteomyelitis of left foot Septemb er 2024 7:35pm Cellulitis of left lower limb October 29, 2024 7:35pm Diabetes mellitus with diabetic polyneur opathy October 29, 2024 7:35pm Diabetic infection of left foot Septembe r 2024 7:35pm Gangrene, not elsewhere classified Septe mber 2024 7:35pm Sepsis October 29, 2024 7:35pm Sinus tachycardia October 29, 2024 7:35pm Subcutaneous air October 29, 2024 7:35pm Type 2 diabetes mellitus with foot ulcer October 29, 2024 7:35pm Hypertension October 29, 2024 7:35pm Additional Source Comments (unrecognized sect ion and content) No Status Records FoundNo Status Records FoundNo Status Records FoundNo Status Records FoundNo Status Records FoundNo Status Records FoundNo Status Records FoundNo Status Records FoundNo Status Records FoundNo Status Records FoundNo Status Records FoundNo Status Records FoundNo Status Records Found INFORMATION SOURCE (unrecogn ized section and content) DATE CREATED AUTHOR 08/07/2017 [facility] DATE CREATED AUTHOR AUTHOR'S ORGANIZ ATION 07/22/2018 [facility] DATE CREATED AUTHOR AUTHOR'S ORGANIZ ATION 05/09/2020 [facility] DATE CREATED AUTHOR AUTHOR'S ORGANIZ ATION 04/29/2021 [facility] DATE CREATED AUTHOR AUTHOR'S ORGANIZ ATION 12/27/2021 [facility] DATE CREATED AUTHOR AUTHOR'S ORGANIZ ATION 09/21/2022 [facility] DATE CREATED AUTHOR AUTHOR'S ORGANIZ ATION 02/07/2023 [facility] DATE CREATED AUTHOR AUTHOR'S ORGANIZ ATION 02/16/2024 [facility] DATE CREATED AUTHOR AUTHOR'S ORGANIZ ATION 04/15/2024 [facility] DATE CREATED AUTHOR AUTHOR'S ORGANIZ ATION 08/17/2024 [facility] DATE CREATED AUTHOR AUTHOR'S ORGANIZ ATION 09/21/2024 [facility] DATE CREATED AUTHOR AUTHOR'S ORGANIZ ATION 09/30/2024 [facility] DATE CREATED AUTHOR AUTHOR'S ORGANIZ ATION 10/03/2024 [facility] Reason for Visit (unrecogniz ed section and content) Reason Comments Annual Exam Reason Comments Establish Care Reason Comments Results Reason Comments Follow-up Ozempic Needs pen ne edles if continuing Specialty Diagnoses / Procedures Referred By Ralph t Referred To Contact Radiology Diagnoses Multinodular goiter Procedures US thyroid Heriberto Davalos, [address] [place] [address] Referral ID Status Reason Start Date Expiration Date Visits Requested Visits Authorized [id number] Authorized Perform Procedure 07/23/2023 07/22/2024 1 1 Reason Comments Follow-up 3 month Reason Comments Flank Pain PT WITH RIGHT FLANK PAIN SINCE 629. +NAUSEA/VOMITING. Reason Comments Follow-up 3 month Reason Comments Follow-up Follow up on BP Reason Comments thyroid nodules Specialty Diagnoses / Procedures Referred By Ralph alberts Referred To Contact Otolaryngology Diagnoses [place] [address] [place] [address] Goyo Snider MD [address] [id number] Referral ID Status Reason Start Date Expiration Date Visits Requested Visits Authorized [id number] Authorized Specialty Services Required 08/04/2023 08/03/2024 1 1 Specialty Diagnoses / Procedures Referred By Ralph alberts Referred To Contact Radiology Diagnoses Nephrolithiasis Procedures XR abdomen 1 [place] [address] [place] [id number] Referral ID Status Reason Start Date Expiration Date Visits Requested Visits Authorized [id number] Authorized Perform Procedure 11/11/2023 11/10/2024 1 1 [...] sensitive to the cold. Results Lab review Reason Comments Follow-up Care Teams (unrecognized sec tion and content) Microbiology Supervisor Relationship Specialty [place] [address] [place] [address] PCP - Gabo ESCOBARO PCP 02/17/21 [place] [address] [place] [address] PCP - General Internal Medicine 12/23/22 Microbiology Supervisor Relationship Specialty [place] [address] [place] [address] PCP - [facility] PCP 02/17/21 [place] [address] [place] [address] PCP - General Internal Medicine 12/23/22 Microbiology Supervisor Relationship Specialty Start Date End Date Phillip Bernal MD Office Address Unavailable as of 02/01/2023 PCP - [facility] PCP 02/17/21 [place] [address] [place] [address] PCP - General Internal Medicine 12/23/22 Microbiology Supervisor Relationship Specialty Start Date End Date Phillip Bernal MD Office Address Unavailable as of 02/01/2023 PCP - [facility] PCP 02/17/21 [place] [address] [place] [address] PCP - General Internal Medicine 12/23/22 Microbiology Supervisor Relationship Specialty Start Date End Date Phillip Bernal MD Office Address Unavailable as of 02/01/2023 PCP - [facility] PCP 02/17/21 [place] [address] [place] [address] PCP - General Internal Medicine 12/23/22 Microbiology Supervisor Relationship Specialty Start [place] [address] [place] [address] PCP - General Internal Medicine 12/23/22 [place] [address] [place] [address] PCP - [facility] P[facility] 08/18/23 Giovanna Cook MD [address] [place] [address] [address] [place] [address] Consulting Physician Hematology and Oncology 09/22/23 Microbiology Supervisor Relationship Specialty [place] [address] [place] [address] PCP - General Internal Medicine 12/23/22 [place] [address] [place] [address] PCP - [facility] PCP 08/18/23 Giovanna Cook MD [address] [place] [address] [address] [place] [address] Consulting Physician Hematology and Oncology 09/22/23 Microbiology Supervisor Relationship Specialty Start Date End Date Phillip Bernal MD Office Address Unavailable as of 02/01/2023 PCP - [facility] PCP 02/17/21 [place] [address] [place] [address] PCP - General Internal Medicine 12/23/22 Microbiology Supervisor Relationship Specialty Start Date End Date Phillip Bernal MD Office Address Unavailable as of 02/01/2023 PCP - [facility] [place] [facility] PCP 02/17/21 [place] [address] [place] [address] PCP - General Internal Medicine 12/23/22 Giovanna Cook MD [address] [place] [address] [address] [place] [address] Consulting Physician Hematology and Oncology 09/22/23 Microbiology Supervisor Relationship Specialty Start Date End Date Phillip Bernal MD Office Address Unavailable as of 02/01/2023 PCP - [facility] PCP 02/17/21 [place] [address] [place] [address] PCP - General Internal Medicine 12/23/22 Giovanna Cook MD [address] [place] [address] [address] [place] [address] Consulting Physician Hematology and Oncology 09/22/23 Microbiology Supervisor Relationship Specialty Start Date End Date Phillip Bernal MD Office Address Unavailable as of 02/01/2023 PCP - [facility] PCP 02/17/21 [place] [address] [place] [address] PCP - General Internal Medicine 12/23/22 Giovanna Cook MD [address] [place] [address] [address] [place] [address] Consulting Physician Hematology and Oncology 09/22/23 Microbiology Supervisor Relationship Specialty Start Date End Date Phillip Bernal MD Office Address Unavailable as of 02/01/2023 PCP - [facility] PCP 02/17/21 [place] [address] [place] [address] PCP - General Internal Medicine 12/23/22 Giovanna Cook MD [address] [place] [address] [address] [place] [address] Consulting Physician Hematology and Oncology 09/22/23 Microbiology Supervisor Relationship Specialty Start Date End Date Phillip Bernal MD Office Address Unavailable as of 02/01/2023 PCP - [facility] [place] [facility] PCP 02/17/21 [place] [address] [place] [address] PCP - General Internal Medicine 12/23/22 Giovanna Cook MD [address] [place] [address] [address] [place] [address] Consulting Physician Hematology and Oncology 09/22/23 Microbiology Supervisor Relationship Specialty Start [place] [address] [place] [address] PCP - General Internal Medicine 12/23/22 [place] [address] [place] [address] PCP - [facility] [place] [facility] PCP 08/18/23 Giovanna Cook MD [address] [place] [address] [address] [place] [address] Consulting Physician Hematology and Oncology 09/22/23 Microbiology Supervisor Relationship Specialty Start [place] [address] [place] [address] PCP - General Internal Medicine 12/23/22 [place] [address] [place] [address] PCP - [facility] PCP 08/18/23 Giovanna Cook MD [address] [place] [address] [address] [place] [address] Consulting Physician Hematology and Oncology 09/22/23 Microbiology Supervisor Relationship Specialty Start [place] [address] [place] [address] PCP - General Internal Medicine 12/23/22 [place] [address] [place] [address] PCP - [place] [facility] PCP 08/18/23 Giovanna Cook MD [address] [place] [address] [address] [place] [address] Consulting Physician Hematology and Oncology 09/22/23 Microbiology Supervisor Relationship Specialty Start [place] [address] [place] [address] PCP - General Internal Medicine 12/23/22 [place] [address] [place] [address] PCP - [facility] PCP 08/18/23 Giovanna Cook MD [address] [place] [address] [address] [place] [address] Consulting Physician Hematology and Oncology 09/22/23 Microbiology Supervisor Relationship Specialty Start [place] [address] [place] [address] PCP - General Internal Medicine 12/23/22 [place] [address] [place] [address] PCP - [facility] [place] [facility] PCP 08/18/23 Giovanna Cook MD [address] [place] [address] Dr [address] [place] [address] Consulting Physician Hematology and Oncology 09/22/23 Team [...] September 09, 2024 End: September 09, 2024 Team Status: Inactive Member Role/Relationship Status Dates Dr. Mayco Fenton MD Primary Care Provider Active Start: September 22, 2024 End: September 22, 2024 Dr. Javy Lynch DPM Attending Provider Active Start: September 22, 2024 End: September 22, 2024 Dr. Javy Lynch DPM Referring Provider Active Start: September 22, 2024 End: September 22, 2024 Microbiology Supervisor Relationship Specialty Start [place] [address] [place] [address] PCP - General Internal Medicine 12/23/22 [place] [address] [place] [address] PCP - [place] [facility] PCP 08/18/23 Giovanna Cook MD [address] [place] [address] Dr [address] [place] [address] Consulting Physician Hematology and Oncology 09/22/23 Team Status: Inactive Member Role/Relationship Status Dates Dr. Mayco Fenton MD Primary Care Provider Active Start: September 09, 2024 End: September 09, 2024 Dr. Mayco Fenton MD Attending Provider Active Start: September 09, 2024 End: September 09, 2024 Dr. Myaco Fenton MD Referring Provider Active Start: September 09, 2024 End: September 09, 2024 Team Status: Inactive Member Role/Relationship Status Dates Dr. Mayco Fenton MD Primary Care Provider Active Start: September 22, 2024 End: September 22, 2024 Dr. Javy Lynch DPM Attending Provider Active Start: September 22, 2024 End: September 22, 2024 Dr. Javy Lynch DPM Referring Provider Active Start: September 22, 2024 End: September 22, 2024 Team Status: Active Member Role/Relationship Status Dates Dr. Mayco Fenton MD Primary Care Provider Active Start: October 29, 2024 Dr. Sriram Nunez MD Emergency Provider Active Sta rt: October 29, 2024 Dr. Ruslan Adams DO Admit Provider Active Start: October 29, 2024 Dr. Ruslan Adams DO Attending Provider Active Start: October 29, 2024 Scheduled Active and Recently Administ ered [...] 1406 (New Bag - Prov ider: Yoana Hernandez, YELENA)1526 (Stopped - Provider: Bennie Oneill RN) ondansetron (Zofran) injection 4 mg (COMPLETED) 4 mg, intravenous, Once, On Fri10/27/23 at 1400, For 1 dose, When administering via IV Push, administer over 3-5 minutes. 1407 (Given - Provid er: Yoana Hernandez RN) Goals (unrecognized section and content) Goals may be documented in a n alternate sectionGoals may be documented in an alternate sectionGoals may be documented in an alternate section FOR RECORDS PERTAINING TO PATIENTS [...] BE BASED ON THE PRIMARY CLINICAL RECORDS. [employer] provides no warranty or guarantee of the accuracy or completeness of information in this document.
--- OUTSIDE RECORDS SUMMARY | 2024-10-29 20:53 | XMS RPT_ITS | CCD ---
Author Organization [facility] Team Providers Care Tip Inserter Name Role Phone ABIOSE, FLAQUITO Unavailable Unavailable UNKNOWN, PROVIDER Unavailable Unavailable ABIOSE, FLAQUITO Unavailable Unavailable UNKNOWN, PROVIDER Unavailable Unavailable UNKNOWN, PROVIDER Unavailable Unavailable ABIOSE, FLAQUITO Unavailable Unavailable [place], Rudi Unavailable Unavailable Nesha Douglas Unavailable Unavailable [...] Cook MD Unavailable Heriberto Davalos DO Unavailable [phone] HERIBERTO DAVALOS Attending Unavailable HERIBERTO DAVALOS Primary [...] Unavailable DAVALOS, HERIBERTO A Primary Care Unavailable Arile Melgar Attending Provider [phone] Eliceo AGUERO, Dr. Mao Primary Care Provider Eliceo AGUERO, Dr. Mao Attending Provider Eliceo AGUERO, Dr. Mao Referring Provider DAVALOS, HERIBERTO A Primary Care Unavailable DAVALOS, HERIBERTO A Primary Care Unavailable DAVALOS, HERIBERTO A Primary Care Unavailable PHILLIP DUMONT Attending Unavailable Syed DPTari, Dr. Palafox Attending Provider [phone] Syed DPDr. Javy Marc Referring Provider Ariel Melgar Attending Unavailable Javy Lynch Attending [...] Unavailable Enrique AGUERO, Dr. Bhatia Emergency Provider [phone] Ruslan Adams DO Admit Provider Unavail able Dr. Ruslan Adams DO Attending Provider Unav ailable Allergies Allergy Classification Reported Allergen(s) Allergy Type Date of Onset Reaction(s) Facility busPIRone (4 sources) busPIRone; Translations: [busPIRone HCl TABS] Drug Allergy Unknown [facility] Work Phone: (20 sources) busPIRone; Translations: [busPIRone] Drug Allergy 12-10-2022 Unknown [facility] (20 sources) busPIRone; Translations: [busPIRone HCl TABS] Drug Allergy Anup Work Phone: (20 sources) empagliflozin; Translations: [Jardiance TABS] Drug Allergy 12-10-2022 Unknown Anup Work Phone: (3 sources) empagliflozin; Translations: [EMPAGLIFLOZIN] Drug Allergy 12-10-2022 [facility] 3 Repository Medications Current Medications Medication Drug [...] capsule 02/03/2024 Active omega-3 acid ethyl esters (shelter) 1000 mg oral capsule (2 sources) Fish [...] M54.2(ICD-9) Onset: 05-23-2017 Unclassified (1 source) Other mcfp (current) drug therapy / Z79.899(ICD-9) Onset: 05-19-2017 [...] Auto (Unsp spec) [#/Vol] 0.93 10*3/uL 0.83-4.51 [facility] Absolute neutrophil countOrd ered By: Sriramzunilda Nunez on 10-29-2024 Neutrophils (Bld) [#/Vol] 19.4 10*3/uL High 2.0-7.7 [facility] Activated partial thrombopla stin time (aPTT) in platelet poor plasma by coagulation aOrdered By: Sriram Nunez on 10-29-2024 aPTT Coag (PPP) [Time] 21.5 s Low 24.1-36.2 [facility] Anion gap in Serum or Plasma Ordered By: Sriram Nunez on 10-29-2024 Anion gap [Moles/Vol] 12 mmol/L 5-15 [facility] Automated lymphocyte count a s percentage of total leukocytesOrdered By: Sriram Nunez on 10-29-2024 Lymphocytes/100 WBC Auto (Unsp spec) 4.1 % Low 19-41 [facility] BUN/creatinine ratioOrdered By: Sriramzunilda Nunez on 10-29-2024 Urea nitrogen/Creatinine [Mass ratio] 15.8 mg/mg 10-20 [facility] Basophil percentageOrdered B y: Sriram Nunez on 10-29-2024 Basophils/100 WBC (Bld) 0.2 % 0-1 [facility] Bilirubin Test strip Ql (U)O rdered By: Sriram Nunez on 10-29-2024 Bilirubin Ql (U) Negative Negative [facility] Bilirubin, totalOrdered By: Sriram Nunez on 10-29-2024 Bilirubin [Mass/Vol] 1.09 mg/dL 0.00-1.[address] [facility] Blood manual differential co mment interpretation (narrative result)Ordered By: Sriram Nunez on 10-29-2024 Manual differential comment Edson (Bld) [Interp] SCANNED [facility] Carbon dioxide, total [Moles /volume] in Central venous bloodOrdered By: Sriram Nunez on 10-29-2024 CO2 [Moles/Vol] 22.9 mmol/L 21.0-32.0 [facility] Chloride assayOrdered By: Mikey Nunez on 10-29-2024 Chloride [Moles/Vol] 95 mmol/L Low 98-[address] [facility] Eosinophil percentageOrdered By: Sriram Nunez on 10-29-2024 Eosinophils/100 WBC (Bld) 2.6 % 0-5 [facility] Erythrocyte distribution wid th ratioOrdered By: Sriram Nunez on 10-29-2024 Erythrocyte distribution width (RBC) [Ratio] 12.6 % 11.6-14.6 [facility] Erythrocyte distribution wid th standard deviationOrdered By: Sriram Nunez on 10-29-2024 Erythrocyte distribution width (RBC) [Ratio] 42.7 fl 35.1-43.9 [facility] Erythrocyte sedimentation ra teOrdered By: Sriram Nunez on 10-29-2024 ESR (Bld) [Velocity] 84 mm/h High 0-[address] [facility] Glomerular filtration rate ( GFR) estimation/1.73 sq m using serum, plasma, or whole bOrdered By: Sriram Nunez on 10-29-2024 GFR/1.73 sq M.predicted among non-blacks MDRD (S/P/Bld) [Vol rate/Area] 62 mL/min/{1.73_m2} >60 [facility] Comment on above: mL/min/1.73m2 CKD-EP I Creatinine Equation (2020) Hematocrit Auto (Bld) [Volum e fraction]Ordered By: Sriram Nunez on 10-29-2024 Hematocrit (Bld) [Volume fraction] 36.2 % Low 40-54 [facility] Hemoglobin measurementOrdere d By: Sriram Nunez on 10-29-2024 Hemoglobin (Bld) [Mass/Vol] 11.9 g/dL Low 13.0-16.5 [facility] Immature granulocytes/100 WB C Auto (Bld)Ordered By: Sriram Nunez on 10-29-2024 Immature granulocytes/100 WBC (Bld) 0.900 % 0.0-0.9 [facility] Comment on above: IG% - Immature Granu locytes (promyelocytes, myelocytes and metamyelocytes) > 1% indicates that a LEFT SHIFT is Present. International normalized rat io (INR) calculationOrdered By: Sriram Nunez on 10-29-2024 INR Coag (Bld) [Relative time] 1.6 {INR} [facility] Ketones Test strip Ql (U)Ord ered By: Sriram Nunez on 10-29-2024 Ketones Ql (U) Negative Negative [facility] - Chemistry and C hemistry - challengeOrdered By: Sriram Nunez on 10-29-2024 AST [Catalytic activity/Vol] 41 U/L High <38 [facility] Lactic acid measurementOrder ed By: Sriram Nunez on 10-29-2024 Lactate [Moles/Vol] 2.0 mmol/L 0.0-2.0 [facility] Comment on above: Critical Result(s) C alled at 10/29/2024-18:48 by Phillpi Ziegler to Mary Timmons. Results read back by same. MCV (mean corpuscular volume ) determinationOrdered By: Sriram Nunez on 10-29-2024 MCV (RBC) [Entitic vol] 92.3 fL 80-94 [facility] Mean corpuscular hemoglobin (MCH) determinationOrdered By: Sriram Nunez on 10-29-2024 MCH (RBC) [Entitic mass] 30.4 pg 27.0-32.0 [facility] Mean corpuscular hemoglobin concentration (MCHC) determinationOrdered By: Sriramzunilda Nunez on 10-29-2024 MCHC (RBC) [Mass/Vol] 32.9 g/dL 32-36 [facility] Mean platelet volume determi nationOrdered By: Sriram Nunez on 10-29-2024 Mean platelet volume determination TNP [facility] Comment on above: Test not performedPr evious reported result: 9.9 flEdited by: TAYLOR on 09/12/25:1945 AMENDED REPORT 10/29/241944 MPV previously reported as: 9.9 fl Monocyte percentageOrdered B y: Sriram Nunez on 10-29-2024 Monocytes/100 WBC (Bld) 7.8 % 0-10 [facility] Neutrophil percentageOrdered By: Sriram Nunez on 10-29-2024 Neutrophils/100 WBC (Bld) 84.4 % High 47-70 [facility] Nitrite Test strip Ql (U)Ord ered By: Sriram Nunez on 10-29-2024 Nitrite Ql (U) Negative Negative [facility] Nucleated red blood cell per centageOrdered By: Sriram Nunez on 10-29-2024 Nucleated RBC/100 WBC (Bld) [Ratio] 0 % 0-5 [facility] Platelet countOrdered By: Mikey Nunez on 10-29-2024 Platelet count TNP [facility] Comment on above: Test not performedPl ease note: For this sample, a platelet estimate is provided rather than a platelet count due to platelet clumping. Other parameters associated with this sample are not affected by platelet clumping. If a more accurate platelet count is required, a redraw of the patient will be necessary.Previous reported result: 245 [id number] by: TAYLOR on 10/29/24:1943 AMENDED REPORT 10/29/241943 PLT previously reported as: 245 K/mm3 Platelet estimateOrdered By: Sriram Nunez on 10-29-2024 Platelets LM Ql (Bld) MKD INC ADEQ [facility] Potassium measurement (mass/ volume)Ordered By: Sriram Nunez on 10-29-2024 Potassium (Unsp spec) [Mass/Vol] 4.3 mmol/L 3.3-5.1 [facility] Protein Test strip Ql (U)Ord ered By: Sriram Nunez on 10-29-2024 Protein Ql (U) 30 mg/dl High Negative [facility] Prothrombin timeOrdered By: Sriram Nunez on 10-29-2024 PT Coag (PPP) [Time] 19.3 s High 11.7-14.[address] [facility] RBC Auto (Bld) [#/Vol]Ordere d By: Sriram Nunez on 10-29-2024 RBC (Bld) [#/Vol] 3.92 10*6/uL Low 4.6-6.2 [facility] Serum creatinine measurement (mass/volume)Ordered By: Sriram Nunez on 10-29-2024 Creatinine [Mass/Vol] 1.31 mg/dL High 0.70-1.20 [facility] Serum globulin measurementOr dered By: Sriram Nunez on 10-29-2024 Globulin (S) [Mass/Vol] 3.9 g/dL 2.2-4.2 [facility] Serum glucose measurement (m ass/volume)Ordered By: Sriram Nunez on 10-29-2024 Glucose [Mass/Vol] 251 mg/dL High 70-99 [facility] Serum or plasma C reactive p rotein measurement (mass/volume)Ordered By: ED PROVIDER on 10-29-2024 CRP [Mass/Vol] 348.00 mg/L High 0.0-3.0 [facility] Serum or plasma alanine cummings otransferase (ALT) measurementOrdered By: Sriram Nunez on 10-29-2024 ALT [Catalytic activity/Vol] 57 U/L High <47 [facility] Serum or plasma albumin anna urement (mass/volume)Ordered By: Sriram Nunez on 10-29-2024 Albumin [Mass/Vol] 3.4 g/dL 3.4-4.8 [facility] Serum or plasma albumin/glob ulin mass ratioOrdered By: Sriram Nunez on 10-29-2024 Albumin/Globulin [Mass ratio] 0.9 {ratio} 0.9-2.4 [facility] Serum or plasma alkaline fe sphatase measurementOrdered By: Sriram Nunez on 10-29-2024 ALP [Catalytic activity/Vol] 146 U/L High 40-129 [facility] Serum or plasma calcium anna urement (mass/volume)Ordered By: Sriram Nunez on 10-29-2024 Calcium [Mass/Vol] 9.2 mg/dL 7.6-11.0 [facility] Serum or plasma urea nitroge n measurement (mass/volume)Ordered By: Sriram Nunez on 10-29-2024 Urea nitrogen [Mass/Vol] 21 mg/dL High 4-19 [facility] Sodium levelOrdered By: Sriram Nunez on 10-29-2024 Sodium [Moles/Vol] 130 mmol/L Low 133-145 [facility] Total proteinOrdered By: Sriram Nunez on 10-29-2024 Protein [Mass/Vol] 7.2 g/dL 5.9-8.4 [facility] Urine clarityOrdered By: Sriram Nunez on 10-29-2024 Clarity (U) Sl. Cloudy Clear [facility] Urine color determinationOrd ered By: Sriram Nunez on 10-29-2024 Color (U) Yellow Yellow [facility] Urine glucose detectionOrder ed By: Sriram Nunez on 10-29-2024 Glucose Ql (U) 100 mg/dl High Normal [facility] Urine leukocyte esterase det ection by dipstickOrdered By: Sriram Nunez on 10-29-2024 Leukocyte esterase Test strip Ql (U) Negative Negative [facility] Urine pHOrdered By: Sriram mauro on 10-29-2024 pH (U) 6.0 [pH] 5.0 - 8.0 [facility] Urine specific gravity measu rementOrdered By: Sriramzunilda Nunez on 10-29-2024 Specific gravity (U) [Rel density] 1.015 1.002-1.030 [facility] Urine urobilinogen measureme ntOrdered By: Sriram Nunez on 10-29-2024 Urobilinogen Ql (U) Normal mg/dl Normal [facility] White blood cell (WBC) count Ordered By: Sriram Nunez on 10-29-2024 WBC (Bld) [#/Vol] 22.9 10*3/uL High 4.4-11.0 [facility] Culture, Anaerobic Any Sourc jackelyn 09-27-2024 CUAN ONLY AN AEROBIC SWAB WAS COLLECTED. GROWTH OF ANAEROBES MAY BE INHIBITED. CELLULITIS RIGHT Studies have confirmed that Anaerobic Gram Positive Cocci are routinely SUSCEPTABLE to Penicillin and generally susceptible to Beta-lactams and Beta-lactamase inhibitors, Cephalosporins, Carbapenems and Metronidazole. They are showing increased RESISTANCE to Clindamycin Anaerobic cocci Normal [facility] Comment on above: Performed By: #### M 100.3000, M100.4001, M1 #### [facility] [address] [place], [address] Wound Cultureon 09-26-2024 WC ONLY [...] S Vancomycin Islt ALICE 1 S Normal [facility] Comment on above: Performed By: #### M 100.3000, M100.400, M1 #### [facility] [address] [place], [place], [id number] Gram Stainon 09-23-2024 GS CELLULITIS RIGHT Gram Stain Rare Gram negative rods Rare Gram positive cocci No cells seen Normal [facility] Comment on above: Performed By: #### M 100.3000, M100.4001, M100.2000 #### [facility] [address] [place], [place], [address] Anaerobic cultureOrdered By: Javy Lynch on 09-22-2024 Bacteria identified Anaer cx Nom (Unsp spec) Anaerobic cocci Abnormal [facility] Gram stainOrdered By: Bebo Lynch on 09-22-2024 Microscopic observation Gram stain Nom (Unsp spec) [facility] Routine wound cultureOrdered By: Javy Lynch on 09-22-2024 Microbial culture, routine Streptococcus agalactiae (B) Abnormal [facility] Microbial culture, routine Corynebacterium amycolatum/xer Abnormal [facility] Microbial culture, routine Staphylococcus epidermidis Abnormal [facility] CBC W Auto Differential pane l (Bld)on 09-16-2024 Basophils (Bld) [#/Vol] 0.05 x10*3/uL Normal 0.00-0.10 [facility] Comment on above: Performed By: #### 2 4323-8 #### SILVERIO NI ([id number]) [facility] ([facility]) [address] [place] [address] Basophils/100 WBC (Bld) 0.4 % Normal 0.0-2.0 [facility] Comment on above: Performed By: #### 2 4323-8 #### SILVERIO NI ([id number]) [facility] ([facility]) [address] [place] [address] Eosinophils (Bld) [#/Vol] 0.10 x10*3/uL Normal 0.00-0.70 [facility] Comment on above: Performed By: #### 2 4323-8 #### SILVERIO NI ([id number]) [facility] ([facility]) [address] [place] [address] Eosinophils/100 WBC (Bld) 0.8 % Normal 0.0-6.0 [facility] Comment on above: Performed By: #### 2 4323-8 #### SILVERIO NI ([id number]) [facility] ([facility]) [address] [place] [address] Erythrocyte distribution width (RBC) [Ratio] 12.6 % Normal 11.5-14.5 [facility] Comment on above: Performed By: #### 2 4323-8 #### SILVERIO NI ([id number]) [facility] ([facility]) [address] [place] [address] Hematocrit (Bld) [Volume fraction] 39.4 % Low 41.0-52.0 [facility] Comment on above: Performed By: #### 2 4323-8 #### SILVERIO NI ([id number]) [facility] ([facility]) [address] [place] [address] Hemoglobin (Bld) [Mass/Vol] 12.8 g/dL Low 13.5-17.5 [facility] Comment on above: Performed By: #### 2 4323-8 #### SILVERIO NI ([id number]) [facility] ([facility]) [address] [place] [address] Immature granulocytes (Bld) [#/Vol] 0.03 x10*3/uL Normal 0.00-0.70 [facility] Comment on above: Performed By: #### 2 4323-8 #### SILVERIO NI ([id number]) [facility] ([facility]) [address] [place] [address] Immature granulocytes/100 WBC (Bld) 0.2 % Normal 0.0-0.9 [facility] Comment on above: Result Comment: Leesa ture Granulocyte Count (IG) includes promyelocytes, myelocytes and metamyelocytes but does not include bands. Percent differential counts (%) should be interpreted in the context of the absolute cell counts (cells/UL). Performed By: #### 2 4323-8 #### SILVERIO NI ([id number]) [facility] ([facility]) [address] [place] [address] Lymphocytes (Bld) [#/Vol] 3.23 x10*3/uL Normal 1.20-4.80 [facility] Comment on above: Performed By: #### 2 4323-8 #### SILVERIO NI ([id number]) [facility] ([facility]) [address] [place] [address] Lymphocytes/100 WBC (Bld) 25.1 % Normal 13.0-44.0 [facility] Comment on above: Performed By: #### 2 4323-8 #### SILVERIO NI ([id number]) [facility] ([facility]) [address] [place] [address] MCH (RBC) [Entitic mass] 30.5 pg Normal 26.0-34.0 [facility] Comment on above: Performed By: #### 2 4323-8 #### SILVERIO NI ([id number]) [facility] ([facility]) [address] [place] [address] MCHC (RBC) [Mass/Vol] 32.5 g/dL Normal 32.0-36.0 [facility] Comment on above: Performed By: #### 2 4323-8 #### SILVERIO NI ([id number]) [facility] ([facility]) [address] [place] [address] MCV (RBC) [Entitic vol] 94 fL Normal 80-100 [facility] Comment on above: Performed By: #### 2 4323-8 #### SILVERIO NI ([id number]) [facility] ([facility]) [address] [place] [address] Monocytes (Bld) [#/Vol] 0.93 x10*3/uL Normal 0.10-1.00 [facility] Comment on above: Performed By: #### 2 4323-8 #### SILVERIO NI ([id number]) [facility] ([facility]) [address] [place] [address] Monocytes/100 WBC (Bld) 7.2 % Normal 2.0-10.0 [facility] Comment on above: Performed By: #### 2 4323-8 #### SILVERIO NI ([id number]) [facility] ([facility]) [address] [place] [address] Neutrophils (Bld) [#/Vol] 8.55 x10*3/uL High 1.20-7.70 [facility] Comment on above: Result Comment: Perc ent differential counts (%) should be interpreted in the context of the absolute cell counts (cells/uL). Performed By: #### 2 4323-8 #### SILVERIO NI ([id number]) [facility] ([facility]) [address] [place] [address] Neutrophils/100 WBC (Bld) 66.3 % Normal 40.0-80.0 [facility] Comment on above: Performed By: #### 2 4323-8 #### SILVERIO NI ([id number]) [facility] ([facility]) [address] [place] [address] Nucleated RBC/100 WBC (Bld) [Ratio] 0.0 /100 WBCs Normal 0.0-0.0 [facility] Comment on above: Performed By: #### 2 4323-8 #### SILVERIO NI ([id number]) [facility] ([facility]) [address] [place] [address] Platelets (Bld) [#/Vol] 311 x10*3/uL Normal 150-450 [facility] Comment on above: Performed By: #### 2 4323-8 #### SILVERIO NI ([id number]) [facility] ([facility]) [address] [place] [address] RBC (Bld) [#/Vol] 4.20 x10*6/uL Low 4.50-5.90 [facility] Comment on above: Performed By: #### 2 4323-8 #### SILVERIO NI ([id number]) [facility] ([facility]) [address] [place] [address] WBC (Bld) [#/Vol] 12.9 x10*3/uL High 4.4-11.3 [facility] Comment on above: Performed By: #### 2 4323-8 #### SILVERIO NI ([id number]) [facility] ([facility]) [address] [place] [address] Comprehensive metabolic 2000 panelon 09-16-2024 Albumin BCP dye [Mass/Vol] 4.0 g/dL Normal 3.4-5.0 [facility] Comment on above: Performed By: #### 2 4323-8 #### SILVERIO NI ([id number]) [facility] ([facility]) [address] [place] [address] ALP [Catalytic activity/Vol] 86 U/L Normal 33-136 [facility] Comment on above: Performed By: #### 2 4323-8 #### SILVERIO NI ([id number]) [facility] ([facility]) [address] [place] [address] ALT With P-5'-P [Catalytic activity/Vol] 17 U/L Normal 10-52 [facility] Comment on above: Result Comment: Svetlana ents treated with Sulfasalazine may generate falsely decreased results for ALT. Performed By: #### 2 4323-8 #### SILVERIO NI ([id number]) [facility] ([facility]) [address] [place] [address] Anion gap [Moles/Vol] 12 mmol/L Normal 10-20 [facility] Comment on above: Performed By: #### 2 4323-8 #### SILVERIO NI ([id number]) [facility] ([facility]) [address] [place] [address] AST With P-5'-P [Catalytic activity/Vol] 20 U/L Normal 9-39 [facility] Comment on above: Performed By: #### 2 4323-8 #### SILVERIO NI ([id number]) [facility] ([facility]) [address] [facility] [address] Bilirubin [Mass/Vol] 0.6 mg/dL Normal 0.0-1.2 [facility] Comment on above: Performed By: #### 2 4323-8 #### SILVERIO NI ([id number]) [facility] ([facility]) [address] [place] [address] Calcium [Mass/Vol] 9.4 mg/dL Normal 8.6-10.3 [facility] Comment on above: Performed By: #### 2 4323-8 #### SILVERIO NI ([id number]) [facility] ([facility]) [address] [place] [address] Chloride [Moles/Vol] 103 mmol/L Normal 98-107 [facility] Comment on above: Performed By: #### 2 4323-8 #### SILVERIO NI ([id number]) [facility] ([facility]) [address] [place] [address] CO2 [Moles/Vol] 30 mmol/L Normal 21-32 [facility] Comment on above: Performed By: #### 2 4323-8 #### SILVERIO NI ([id number]) [facility] ([facility]) [address] [place] [address] Creatinine [Mass/Vol] 1.04 mg/dL Normal 0.50-1.30 [facility] Comment on above: Performed By: #### 2 4323-8 #### SILVERIO NI ([id number]) [facility] ([facility]) [address] [place] [address] Glomerular filtration rate 81 mL/min/1.73m*2 Normal >60 [facility] Comment on above: Result Comment: Calc ulations of estimated GFR are performed using the 2020 CKD-EPI Study Refit equation without the race variable for the IDMS-Traceable creatinine methods. https://jasn.asnjournals.org/content//ASN.64378 17321 Performed By: #### 2 4323-8 #### SILVERIO NI ([id number]) [facility] ([facility]) [address] [place] [address] Glucose [Mass/Vol] 84 mg/dL Normal 74-99 [facility] Comment on above: Performed By: #### 2 4323-8 #### SILVERIO NI ([id number]) [facility] ([facility]) [address] [place] [address] Potassium [Moles/Vol] 4.5 mmol/L Normal 3.5-5.3 [facility] Comment on above: Performed By: #### 2 4323-8 #### SILVERIO NI (37452) [facility] ([facility]) [address] [place] [address] Protein [Mass/Vol] 7.0 g/dL Normal 6.4-8.2 [facility] Comment on above: Performed By: #### 2 4323-8 #### SILVERIO NI ([id number]) [facility] ([facility]) [address] [place] [address] Sodium [Moles/Vol] 140 mmol/L Normal 136-145 [facility] Comment on above: Performed By: #### 2 4323-8 #### SILVERIO NI ([id number]) [facility] ([facility]) [address] [place] [address] Urea nitrogen [Mass/Vol] 16 mg/dL Normal 6-23 [facility] Comment on above: Performed By: #### 2 4323-8 #### SILVERIO NI ([id number]) [facility] ([facility]) [address] [place] [address] Ferritinon 09-16-2024 Ferritin [Mass/Vol] 76 ng/mL Normal 20-300 [facility] Comment on above: Performed By: #### 2 4323-8 #### SILVERIO NI ([id number]) [facility] ([facility]) [address] [place] [address] Iron and Iron binding capaci ty panelon 09-16-2024 Iron [Mass/Vol] 52 ug/dL Normal 35-150 [facility] Comment on above: Performed By: #### 2 4323-8 #### SILVERIO NI ([id number]) [facility] ([facility]) [address] [place] [address] Iron binding capacity [Mass/Vol] 280 ug/dL Normal 240-445 [facility] Comment on above: Performed By: #### 2 4323-8 #### SILVERIO NI ([id number]) [facility] ([facility]) [address] [place] [address] Iron binding capacity.unsaturated [Mass/Vol] 228 ug/dL Normal 110-370 [facility] Comment on above: Performed By: #### 2 4323-8 #### SILVERIO NI ([id number]) [facility] ([facility]) [address] [place] [address] Iron saturation [Mass fraction] 19 % Low 25-45 [facility] Comment on above: Performed By: #### 2 4323-8 #### SILVERIO NI ([id number]) [facility] ([facility]) [address] [place] [address] Anion gap in Serum or Plasma Ordered By: Mayco Fenton on 09-09-2024 Anion gap [Moles/Vol] 13 mmol/L 07-01 [facility] BUN/creatinine ratioOrdered By: Mayco Fenton on 09-09-2024 Urea nitrogen/Creatinine [Mass ratio] 12.4 mg/mg 12-06 [facility] Basic Metabolic Profile (BMP )on 09-09-2024 BUN/CRE 12.4 RATIO Normal 12-06 [facility] Comment on above: Performed By: #### L 501.9985, L500.4100, L501.9910, L502.0250, L500.2500 #### [facility] [address] [place], [address] Calcium [Mass/Vol] 9.5 mg/dL Normal 7.6-11.0 [facility] Comment on above: Performed By: #### L 501.9985, L500.4100, L501.9910, L502.0250, L500.2500 #### [facility] [address] [place], [address] Chloride [Moles/Vol] 103 mmol/L Normal 98-[address] [facility] Comment on above: Performed By: #### L 501.9985, L500.4100, L501.9910, L502.0250, L500.2500 #### [facility] [address] [place], [address] CO2 [Moles/Vol] 23.5 mmol/L Normal 21.0-32.0 [facility] Comment on above: Performed By: #### L 501.9985, L500.4100, L501.9910, L502.0250, L500.2500 #### [facility] [address] [place], [address] Creatinine [Mass/Vol] 1.19 mg/dL Normal 0.70-1.20 [facility] Comment on above: Performed By: #### L 501.9985, L500.4100, L501.9910, L502.0250, L500.2500 #### [facility] [address] [place], [address] GAP 13 Normal 5-15 [facility] Comment on above: Performed By: #### L 501.9985, L500.4100, L501.9910, L502.0250, L500.2500 #### [facility] [address] [place], [address] GFR/1.73 sq M.predicted among non-blacks MDRD (S/P/Bld) [Vol rate/Area] 69 mL/min/{1.73_m2} Normal >60 [facility] Comment on above: Result Comment: mL/m in/1.73m2 CKD-EPI Creatinine Equation (2020) Performed By: #### L 501.9985, L500.4100, L501.9910, L502.0250, L500.2500 #### [facility] [address] [place], [address] Glucose [Mass/Vol] 77 mg/dL Normal 70-99 [facility] Comment on above: Performed By: #### L 501.9985, L500.4100, L501.9910, L502.0250, L500.2500 #### [facility] [address] [place], [address] Potassium [Moles/Vol] 4.3 mmol/L Normal 3.3-5.1 [facility] Comment on above: Performed By: #### L 501.9985, L500.4100, L501.9910, L502.0250, L500.2500 #### [facility] [address] [place], [address] Sodium [Moles/Vol] 139 mmol/L Normal 133-145 [facility] Comment on above: Performed By: #### L 501.9985, L500.4100, L501.9910, L502.0250, L500.2500 #### [facility] [address] [place], [address] Urea nitrogen [Mass/Vol] 15 mg/dL Normal 4-19 [facility] Comment on above: Performed By: #### L 501.9985, L500.4100, L501.9910, L502.0250, L500.2500 #### [facility] [address] [place], [address] Calculated very low density lipoprotein (VLDL) cholesterol measurementOrdered By: Mayco Fenton on 09-09-2024 Calculated very low density lipoprotein (VLDL) cholesterol measurement 15 mg/dL 5-40 [facility] Carbon dioxide, total [Moles /volume] in Central venous bloodOrdered By: Mayco Fenton on 09-09-2024 CO2 [Moles/Vol] 23.5 mmol/L 21.0-32.0 [facility] Chloride assayOrdered By: Janay Fenton on 09-09-2024 Chloride [Moles/Vol] 103 mmol/L 98-[address] [facility] Glomerular filtration rate ( GFR) estimation/1.73 sq m using serum, plasma, or whole bOrdered By: Mayco Fenton on 09-09-2024 GFR/1.73 sq M.predicted among non-blacks MDRD (S/P/Bld) [Vol rate/Area] 69 mL/min/{1.73_m2} >60 [facility] Comment on above: mL/min/1.73m2 CKD-EP I Creatinine Equation (2020) Hemoglobin A1con 09-09-2024 HbA1c (Bld) [Mass fraction] 6.7 % High <=5.6 [facility] Comment on above: Result Comment: Norm al < 5.7 % Prediabetic 5.7 - 6.4 % Diabetic >or= 6.5 % Please note range changes. Performed By: #### L 501.9985, L500.4100, L501.9910, L502.0250, L500.2500 #### [facility] [address] [place] [address], [address] Hemoglobin A1c percentageOrd ered By: Mayco Fenton on 09-09-2024 HbA1c (Bld) [Mass fraction] 6.7 % High <5.7 [facility] Comment on above: Normal < 5.7 % Predi abetic 5.7 - 6.4 % Diabetic >or= 6.5 % Please note range changes. LDL calc ser/plasOrdered By: Mayco Fenton on 09-09-2024 Cholesterol in LDL [Mass/Vol] 54 mg/dL [facility] Comment on above: Rxxlvwouqp=974-192 m g/dL & Higher Lmgj=987 mg/dL or greater Lipid Profileon 09-09-2024 CHOL:HDL 2.17 Normal [facility] Comment on above: Performed By: #### L 501.9985, L500.4100, L501.9910, L502.0250, L500.2500 #### [facility] [address] [place], [address] Cholesterol [Mass/Vol] 127 mg/dL Normal <=200 [facility] Comment on above: Result Comment: Chol esterol level, Desirable <200 mg/dL Borderline high cholesterol 200-239 mg/dL High cholesterol >=240 mg/dL Recommendations of the NCEP Adult Treatment Panel for the following risk-cutoff thresholds for the [place] population. Performed By: #### L 501.9985, L500.4100, L501.9910, L502.0250, L500.2500 #### [facility] [address] [place], [address] Cholesterol in HDL [Mass/Vol] 59 mg/dL Normal [facility] Comment on above: Result Comment: Verónica onal Cholesterol Education Program (NCEP) guidelines: <40 mg/dL: Low HDL-cholesterol (major risk factor for CHD) >= 60 mg/dL: High HDL-cholesterol (negative risk factor for CHD) HDL-cholesterol is affected by a number of factors, e.g. smoking, exercise, hormones, sex and age. Performed By: #### L 501.9985, L500.4100, L501.9910, L502.0250, L500.2500 #### [facility] [address] [place], [address] Cholesterol in LDL [Mass/Vol] 54 mg/dL Normal [facility] Comment on above: Result Comment: Bord febzab=432-382 mg/dL Higher Shpu=102 mg/dL or greater Performed By: #### L 501.9985, L500.4100, L501.9910, L502.0250, L500.2500 #### [facility] [address] [place], [address] Cholesterol in VLDL [Mass/Vol] 15 mg/dL Normal 5-40 [facility] Comment on above: Performed By: #### L 501.9985, L500.4100, L501.9910, L502.0250, L500.2500 #### [facility] [address] [place], [place], [address] Triglyceride [Mass/Vol] 73 mg/dL Normal [facility] Comment on above: Result Comment: The drugs N-Acetylcysteine and Metamizole may falsely depress this assay. Normal range: <150 mg/dL Borderline High: 150-199 mg/dL High: 200-499 mg/dL Very High: >500 mg/dL Performed By: #### L 501.9985, L500.4100, L501.9910, L502.0250, L500.2500 #### [facility] [address] [place], [place], [id number] Microalb:Creat Ratio,Random URon 09-09-2024 Creatinine [Mass/Vol] 207.00 mg/dL Normal 39.00-259.00 [facility] Comment on above: Performed By: #### L 501.9985, L500.4100, L501.9910, L502.0250, L500.2500 #### [facility] [address] [place], [place], [address] MALB:CREAT 17.7 mg/g CRE Normal <30 mg/g CRE [facility] Comment on above: Performed By: #### L 501.9985, L500.4100, L501.9910, L502.0250, L500.2500 #### [facility] [address] [place], [place], [id number] (174) MICROALBUMIN,UR 36.7 mg/L Normal <20 mg/L [facility] Comment on above: Performed By: #### L 501.9985, L500.4100, L501.9910, L502.0250, L500.2500 #### [facility] [address] [place], [address] PSA,Total - Annual Screenon 09-09-2024 PSA,TOT SCREEN 7.26 ng/mL High 0.02-4.00 [facility] Comment on above: Result Comment: This [...] L 501.9985, L500.4100, L501.9910, L502.0250, L500.2500 #### [facility] [address] [facility] [place], [address] Potassium measurement (mass/ volume)Ordered By: Mayco Fenton on 09-09-2024 Potassium (Unsp spec) [Mass/Vol] 4.3 mmol/L 3.3-5.1 [facility] Random urine creatinine anna urement (mass/volume)Ordered By: Mayco Fenton on 09-09-2024 Creatinine Unsp time (U) [Mass/Vol] 207.00 mg/dL 39.00-259.00 [facility] Screening total cholesterol/ high density lipoprotein (HDL) cholesterol ratioOrdered By: Mayco Fenton on 09-09-2024 Cholesterol.total/Chol esterol in HDL [Mass ratio] 2.17 {ratio} [facility] Serum creatinine measurement (mass/volume)Ordered By: Mayco Fenton on 09-09-2024 Creatinine [Mass/Vol] 1.19 mg/dL 0.70-1.20 [facility] Serum glucose measurement (m ass/volume)Ordered By: Mayco Fenton on 09-09-2024 Glucose [Mass/Vol] 77 mg/dL 70-99 [facility] Serum or plasma calcium anna urement (mass/volume)Ordered By: Mayco Fenton on 09-09-2024 Calcium [Mass/Vol] 9.5 mg/dL 7.6-11.0 [facility] Serum or plasma cholesterol in HDL measurement (mass/volume)Ordered By: Mayco Fenton on 09-09-2024 Cholesterol in HDL [Mass/Vol] 59 mg/dL >40 [facility] Comment on above: National Cholesterol Education Program (NCEP) guidelines:<40 mg/dL: Low HDL-cholesterol (major risk factor for CHD)>= 60 mg/dL: High HDL-cholesterol (negative risk factor for CHD)HDL-cholesterol is affected by a number of factors, e.g. smoking, exercise, hormones, sex and age. Serum or plasma cholesterol measurement (mass/volume)Ordered By: Mayco Fenton on 09-09-2024 Cholesterol [Mass/Vol] 127 mg/dL <201 [facility] Comment on above: Cholesterol level, D esirable <200 mg/dLBorderline high cholesterol 200-239 mg/dLHigh cholesterol >=240 mg/dLRecommendations of the NCEP Adult Treatment Panel for the following risk-cutoff thresholds for the [place] population. Serum or plasma urea nitroge n measurement (mass/volume)Ordered By: Mayco Fenton on 09-09-2024 Urea nitrogen [Mass/Vol] 15 mg/dL 4-19 [facility] Sodium levelOrdered By: Mayco Fenton on 09-09-2024 Sodium [Moles/Vol] 139 mmol/L 133-145 [facility] Triglycerides measurementOrd ered By: Mayco Fenton on 09-09-2024 Triglyceride [Mass/Vol] 73 mg/dL <199 [facility] Comment on above: The drugs N-Acetylcy steine and Metamizole may falsely depress this assay. Normal range: <150 mg/dLBorderline High: 150-199 mg/dLHigh: 200-499 mg/dLVery High: >500 mg/dL Urine albumin measurement [facility] detection limit of 20 mg/L or less (mass/volume)Ordered By: Mayco Fenton on 09-09-2024 Albumin DL <= 20 mg/L (U) [Mass/Vol] 36.7 mg/L <20 mg/L [facility] Office Visit Reporton 2024 Office Visit Report [facility] [address] [place] [address] OFFICE VISIT Date of Service: 06/22/24 MR#: [id number] Acct: [id number] Patient: JEFFERSON CARCAMO Rep #: [id number] : 1960 Provider: JANAY Christine Age/Sex: 63/M Location: [facility] Status: Signed Intake Intake Visit Reasons: PE 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, [address] [place] [address] OFFICE VISIT Date of Service: 06/22/24 MR#: [id number] Acct: [id number] Name: JEFFERSON CARCAMO Rep #: [id number] : 1960 Provider: JANAY Christine Age/Sex: 63/M Location: [facility] Status: Signed Intake Intake Visit Reasons: PE [...] Note: Patient here for a Pre-Employment physical. [facility] Medical History (Updated 06/22/24 @ 16:55 by [...] Robert Signature: Date (if applicable) CC: Normal [facility] ALBUMIN, RANDOM URINE W/CREA Maribell 04-14-2024 ALBUMIN, URINE 1.4 mg/dL Normal See Note: [facility] Comment on above: Result Comment: Refe rochelle Range: Reference Range Not established Performed By: #### 9 2665, 927, 622, 51290, 7600, 6517, 905, 6399 #### [facility] [address], [address] [place] [address] Mailroom Associate: Aquiles Patel MD ALBUMIN/CREATININE RATIO, RANDOM URINE [...] Performed By: #### 9 2665, 927, 622, 69993, 7600, 6517, 905, 6399 #### [facility] [place] [address] Mailroom Associate: Aquiles Patel MD Creatinine (U) [Mass/Vol] 105 mg/dL Normal 20-320 [facility] Comment on above: Performed By: #### 9 2665, 927, 622, 36153, 7600, 6517, 905, 6399 #### [facility] [place] [address] Mailroom Associate: Aquiles Patel MD CBC (INCLUDES DIFF/PLT)on Basophils (Bld) [#/Vol] 0.053 10*3/uL Normal 0-200 [facility] Comment on above: Performed By: #### 9 2665, 927, 622, 66731, 7600, 6517, 905, 6399 #### [facility] [place] [address] Mailroom Associate: Aquiles Patel MD Basophils/100 WBC (Bld) 0.5 % Normal [facility] Comment on above: Performed By: #### 9 2665, 927, 622, 54109, 7600, 6517, 905, 6399 #### [facility] [place] [address] Mailroom Associate: Aquiles Patel MD Eosinophils (Bld) [#/Vol] 0.242 10*3/uL Normal 15-500 [facility] Comment on above: Performed By: #### 9 2665, 927, 622, 18663, 7600, 6517, 905, 6399 #### [facility] of [address], [address] [place] [address] Mailroom Associate: Aquiles Patel MD Eosinophils/100 WBC (Bld) 2.3 % Normal [facility] Comment on above: Performed By: #### 9 2665, 927, 622, 72468, 7600, 6517, 905, 6399 #### [facility] of [address], [address] [place] [address] Mailroom Associate: Aquiles Patel MD Erythrocyte distribution width (RBC) [Ratio] 13.0 % Normal 11.0-15.0 [facility] Comment on above: Performed By: #### 9 2665, 927, 622, 70880, 7600, 6517, 905, 6399 #### [facility] of [address], [address] [place] [address] Mailroom Associate: Aquiles Patel MD Hematocrit (Bld) [Volume fraction] 40.0 % Normal 38.5-50.0 [facility] Comment on above: Performed By: #### 9 2665, 927, 622, 89423, 7600, 6517, 905, 6399 #### [facility] of [place] [address] Mailroom Associate: Aquiles Patel MD Hemoglobin (Bld) [Mass/Vol] 13.9 g/dL Normal 13.2-17.1 [facility] Comment on above: Performed By: #### 9 2665, 927, 622, 15309, 7600, 6517, 905, 6399 #### [facility] of [address], [address] [place] [address] Mailroom Associate: Aquiles Patel MD Lymphocytes (Bld) [#/Vol] 4.263 10*3/uL High 850-3900 [facility] Comment on above: Performed By: #### 9 2665, 927, 622, 02822, 7600, 6517, 905, 6399 #### [facility] of [place] [address] Mailroom Associate: Aquiles Patel MD Lymphocytes/100 WBC (Bld) 40.6 % Normal [facility] Comment on above: Performed By: #### 9 2665, 927, 622, 73813, 7600, 6517, 905, 6399 #### [facility] [place] [address] Mailroom Associate: Aquiles Patel MD MCH (RBC) [Entitic mass] 31.7 pg Normal 27.0-33.0 [facility] Comment on above: Performed By: #### 9 2665, 927, 622, 70078, 7600, 6517, 905, 6399 #### [facility] [place] [address] Mailroom Associate: Aquiles Patel MD MCHC (RBC) [Mass/Vol] 34.8 [...] patient's clinical condition. Performed By: #### 9 0875, 927, 622, 37164, 7600, 6517, 905, 6399 #### [facility] [place] [address] Mailroom Associate: Aquiles Patel MD MCV (RBC) [Entitic vol] 91.3 fL Normal 80.0-100.0 [facility] Comment on above: Performed By: #### 9 2665, 927, 622, 99679, 7600, 6517, 905, 6399 #### [facility] [place] [address] Mailroom Associate: Aquiles Patel MD Monocytes (Bld) [#/Vol] 0.872 10*3/uL Normal 200-950 [facility] Comment on above: Performed By: #### 9 2665, 927, 622, 92780, 7600, 6517, 905, 6399 #### [facility] of [address], [address] [place] [address] Mailroom Associate: Aquiles Patel MD Monocytes/100 WBC (Bld) 8.3 % Normal [facility] Comment on above: Performed By: #### 9 2665, 927, 622, 04590, 7600, 6517, 905, 6399 #### [facility] of [address], [address] [place] [address] Mailroom Associate: Aquiles Patel MD Neutrophils (Bld) [#/Vol] 5.072 10*3/uL Normal 2093-0938 [facility] Comment on above: Performed By: #### 9 2665, 927, 622, 61551, 7600, 6517, 905, 6399 #### [facility] of [address], [address] [place] [address] Mailroom Associate: Aquiles Patel MD Neutrophils/100 WBC (Bld) 48.3 % Normal [facility] Comment on above: Performed By: #### 9 2665, 927, 622, 67550, 7600, 6517, 905, 6399 #### [facility] of [place] [address] Mailroom Associate: Aquiles Patel MD Platelet mean volume (Bld) [Entitic vol] 10.5 fL Normal 7.5-12.5 [facility] Comment on above: Performed By: #### 9 2665, 927, 622, 41524, 7600, 6517, 905, 6399 #### [facility] of [address], [address] [place] [address] Mailroom Associate: Aquiles Patel MD Platelets (Bld) [#/Vol] 299 10*3/uL Normal 140-400 [facility] Comment on above: Performed By: #### 9 2665, 927, 622, 15031, 7600, 6517, 905, 6399 #### [facility] of [address], [address] [place] [address] Mailroom Associate: Aquiles Patel MD RBC (Bld) [#/Vol] 4.38 10*6/uL Normal 4.20-5.80 [facility] Comment on above: Performed By: #### 9 2665, 927, 622, 94286, 7600, 6517, 905, 6399 #### [facility] of [place] [address] Mailroom Associate: Aquiles Patel MD WBC (Bld) [#/Vol] 10.5 10*3/uL Normal 3.8-10.8 [facility] Comment on above: Performed By: #### 9 2665, 927, 622, 63357, 7600, 6517, 905, 6399 #### [facility] [place] [address] Mailroom Associate: Aquiles Patel MD COMPREHENSIVE METABOLIC PANE L W/ANION GAPon 04-14-2024 Albumin [Mass/Vol] 4.3 g/dL Normal 3.6-5.1 [facility] Comment on above: Performed By: #### 9 2665, 927, 622, 05301, 7600, 6517, 905, 6399 #### [facility] [place] [address] Mailroom Associate: Aquiles Patel MD ALP [Catalytic activity/Vol] 84 U/L Normal 35-144 [facility] Comment on above: Performed By: #### 9 2665, 927, 622, 99440, 7600, 6517, 905, 6399 #### [facility] [place] [address] Mailroom Associate: Aquiles Patel MD ALT [Catalytic activity/Vol] 14 U/L Normal 9-46 [facility] Comment on above: Performed By: #### 9 2665, 927, 622, 83181, 7600, 6517, 905, 6399 #### [facility] [place] [address] Mailroom Associate: Aquiles Patel MD AST [Catalytic activity/Vol] 15 U/L Normal 10-35 [facility] Comment on above: Performed By: #### 9 2665, 927, 622, 85447, 7600, 6517, 905, 6399 #### [facility] of [place] [address] Mailroom Associate: Aquiles Patel MD Bilirubin [Mass/Vol] 0.5 mg/dL Normal 0.2-1.2 [facility] Comment on above: Performed By: #### 9 2665, 927, 622, 73994, 7600, 6517, 905, 6399 #### [facility] [place] [address] Mailroom Associate: Aquiles Patel MD Calcium [Mass/Vol] 9.3 mg/dL Normal 8.6-10.3 [facility] Comment on above: Performed By: #### 9 2665, 927, 622, 40741, 7600, 6517, 905, 6399 #### [facility] [place] [address] Mailroom Associate: Aquiles Patel MD Chloride [Moles/Vol] 102 mmol/L Normal 98-110 [facility] Comment on above: Performed By: #### 9 2665, 927, 622, 01202, 7600, 6517, 905, 6399 #### [facility] [place] [address] Mailroom Associate: Aquiles Patel MD CO2 [Moles/Vol] 28 mmol/L Normal 20-32 [facility] Comment on above: Performed By: #### 9 2665, 927, 622, 58676, 7600, 6517, 905, 6399 #### [facility] of [place] [address] Mailroom Associate: Aquiles Patel MD Creatinine [Mass/Vol] 1.03 mg/dL Normal 0.70-1.[address] [facility] Comment on above: Performed By: #### 9 2665, 927, 622, 27555, 7600, 6517, 905, 6399 #### [facility] [place] [address] Mailroom Associate: Aquiles Patel MD ELECTROLYTE BALANCE 9 mmol/L (calc) Normal 7-17 [facility] Comment on above: Performed By: #### 9 2665, 927, 622, 92924, 7600, 6517, 905, 6399 #### [facility] [place] [address] Mailroom Associate: Aquiles Patel MD GFR/1.73 sq M.predicted among non-blacks MDRD (S/P/Bld) [Vol rate/Area] 83 mL/min/{1.73_m2} Normal > OR = 60 [facility] Comment on above: Performed By: #### 9 2665, 927, 622, 61122, 7600, 6517, 905, 6399 #### [facility] [place] [address] Mailroom Associate: Aquiles Patel MD Glucose [Mass/Vol] 135 mg/dL High 65- [facility] Comment on above: Result Comment: Fasting reference interval For someone without known diabetes, a glucose value >125 mg/dL indicates that they may have diabetes and this should be confirmed with a follow-up test. Performed By: #### 9 2665, 927, 622, 41350, 7600, 6517, 905, 6399 #### [facility] [place] [address] Mailroom Associate: Aquiles Patel MD Potassium [Moles/Vol] 4.2 mmol/L Normal 3.5-5.[address] [facility] Comment on above: Performed By: #### 9 2665, 927, 622, 03324, 7600, 6517, 905, 6399 #### [facility] [address], [address] [place] [address] Mailroom Associate: Aquiles Patel MD Protein [Mass/Vol] 7.0 g/dL Normal 6.1-8.1 [facility] Comment on above: Performed By: #### 9 2665, 927, 622, 03673, 7600, 6517, 905, 6399 #### [facility] of [address], [address] [place] [address] Mailroom Associate: Aquiles Patel MD Sodium [Moles/Vol] 139 mmol/L Normal 135-146 [facility] Comment on above: Performed By: #### 9 2665, 927, 622, 82764, 7600, 6517, 905, 6399 #### [facility] [address], [address] [place] [address] Mailroom Associate: Aquiles Patel MD Urea nitrogen [Mass/Vol] 14 mg/dL Normal 7-25 [facility] Comment on above: Performed By: #### 9 2665, 927, 622, 91060, 7600, 6517, 905, 6399 #### [facility] [address], [address] [place] [address] Mailroom Associate: Aquiles Patel MD HEMOGLOBIN A1c WITH eAGon eAG (mmol/L) 8.7 mmol/L Normal [facility] Comment on above: Performed By: #### 9 2665, 927, 622, 56693, 7600, 6517, 905, 6399 #### [facility] [place] [address] Mailroom Associate: Aquiles Patel MD HEMOGLOBIN A1c 7.1 % [...] Performed By: #### 9 2665, 927, 622, 68018, 7600, 6517, 905, 6399 #### [facility] [address], [address] [place] [address] Mailroom Associate: Aquiles Patel MD Magnesium [Mass/Vol] 157 mg/dL Normal [facility] Comment on above: Performed By: #### 9 2665, 927, 622, 33281, 7600, 6517, 905, 6399 #### [facility] [address], [address] [place] [address] Mailroom Associate: Aquiles Patel MD LIPID PANEL, [facility] 03-21 Cholesterol [Mass/Vol] 111 mg/dL Normal <200 Qu est Diagnostics Comment on above: Performed By: #### 9 2665, 927, 622, 45398, 7600, 6517, 905, 6399 #### [facility] [address], [address] [place] [address] Mailroom Associate: Aquiles Patel MD Cholesterol in HDL [Mass/Vol] 51 mg/dL Normal > OR = 40 [facility] Comment on above: Performed By: #### 9 2665, 927, 622, 88967, 7600, 6517, 905, 6399 #### [facility] [address], [address] [place] [address] Mailroom Associate: Aquiles Patel MD Cholesterol in LDL [Mass/Vol] [...] LDL-C. Mohsen BARRERA et al. CHINEDU. 2013;310(19): 0637-4279 (http://education.Glider.adSage/faq/FIF637) Performed By: #### 9 2665, 927, 622, 38168, 7600, 6517, 905, 6399 #### [facility] [place] [address] Mailroom Associate: Aquiles Patel MD Cholesterol.total/Chol esterol in HDL [Mass ratio] 2.2 {ratio} Normal <5.0 [facility] Comment on above: Performed By: #### 9 2665, 927, 622, 66569, 7600, 6517, 905, 6399 #### [facility] [address], [address] [place] [address] Mailroom Associate: Aquiles Patel MD NON HDL CHOLESTEROL 60 mg/dL (calc) Normal <130 [facility] Comment on above: Result Comment: For patients with diabetes plus 1 major ASCVD risk factor, treating to a non-HDL-C goal of <100 mg/dL (LDL-C of <70 mg/dL) is considered a therapeutic option. Performed By: #### 9 8085, 927, 622, 11921, 7600, 6517, 905, 6399 #### [facility] [place] [address] Mailroom Associate: Aquiles Patel MD Triglyceride [Mass/Vol] 79 mg/dL Normal <150 [facility] Comment on above: Performed By: #### 9 1655, 927, 622, 06990, 7600, 6517, 905, 6399 #### [facility] [place] [address] Mailroom Associate: Aquiles Patel MD MAGNESIUMon 04-14-2024 Magnesium [Mass/Vol] 2.0 mg/dL Normal 1.5-2.5 Ques t Diagnostics Comment on above: Performed By: #### 9 7285, 927, 622, 29519, 7600, 6517, 905, 6399 #### [facility] [place] [address] Mailroom Associate: Aquiles Patel MD URIC ACIDon 04-14-2024 Urate [Mass/Vol] 3.9 mg/dL Low 4.0-8.0 [facility] Comment on above: Result Comment: Ther apeutic target for gout patients: <6.0 mg/dL Performed By: #### 9 2665, 927, 622, 07014, 7600, 6517, 905, 6399 #### [facility] [address] [place] [address], [address] [place] [address] Mailroom Associate: Aquiles Patel MD VITAMIN B12on 04-14-2024 Cobalamin (Vitamin B12) [Mass/Vol] 696 pg/mL Normal 200-1100 [facility] Comment on above: Performed By: #### 9 2665, 927, 622, 89947, 7600, 6517, 905, 6399 #### [facility] [address] [place] [address], [address] [place] [address] Mailroom Associate: Aquiles Patel MD CBC W Auto Differential pane l (Bld)on 02-07-2024 Basophils (Bld) [#/Vol] 0.03 10*3/uL [facility] Basophils/100 WBC (Bld) 0.3 % 0.0 - 2.0 % [facility] Eosinophils (Bld) [#/Vol] 0.02 10*3/uL [facility] Eosinophils/100 WBC (Bld) 0.2 % 0.0 - 6.0 % [facility] Erythrocyte distribution width (RBC) [Ratio] 12.2 % 11.5 - 14.5 % [facility] Hematocrit (Bld) [Volume fraction] 43.9 % 41.0 - 52.0 % [facility] Hemoglobin (Bld) [Mass/Vol] 14.4 g/dL 13.5 - 17.5 g/dL [facility] Immature granulocytes (Bld) [#/Vol] 0.03 10*3/uL [facility] Immature granulocytes/100 WBC (Bld) 0.3 % 0.0 - 0.9 % [facility] Comment on above: Immature Granulocyte Count (IG) includes promyelocytes, myelocytes and metamyelocytes but does not include bands. Percent differential counts (%) should be interpreted in the context of the absolute cell counts (cells/UL). Lymphocytes (Bld) [#/Vol] 2.53 10*3/uL [facility] Lymphocytes/100 WBC (Bld) 24 % 13.0 - 44.0 % [facility] MCH (RBC) [Entitic mass] 29.9 pg 26.0 - 34.0 pg [facility] MCHC (RBC) [Mass/Vol] 32.8 g/dL 32.0 - 36.0 g/dL [facility] MCV (RBC) [Entitic vol] 91 fL 80 - 100 fL [facility] Monocytes (Bld) [#/Vol] 0.79 10*3/uL [facility] Monocytes/100 WBC (Bld) 7.5 % 2.0 - 10.0 % [facility] Neutrophils (Bld) [#/Vol] 7.15 10*3/uL [facility] Comment on above: Percent differential counts (%) should be interpreted in the context of the absolute cell counts (cells/uL). Neutrophils/100 WBC (Bld) 67.7 % 40.0 - 80.0 % [facility] Nucleated RBC/100 WBC (Bld) [Ratio] 0 % [facility] Platelets (Bld) [#/Vol] 360 10*3/uL [facility] RBC (Bld) [#/Vol] 4.81 10*6/uL [facility] WBC (Bld) [#/Vol] 10.6 10*3/uL [facility] Basophils (Bld) [#/Vol] 0.03 x10*3/uL Normal 0.00-0.10 [facility] Comment on above: Performed By: #### 5 7021-8 #### SILVERIO NI ([id number]) [facility] ([facility]) [address] [place] [address] Basophils/100 WBC (Bld) 0.3 % Normal 0.0-2.0 [facility] Comment on above: Performed By: #### 5 7021-8 #### SILVERIO NI ([id number]) [facility] ([facility]) [id number] [place] [address] Eosinophils (Bld) [#/Vol] 0.02 x10*3/uL Normal 0.00-0.70 [facility] Comment on above: Performed By: #### 5 7021-8 #### SILVERIO NI ([id number]) [facility] ([facility]) [address] [place] [address] Eosinophils/100 WBC (Bld) 0.2 % Normal 0.0-6.0 [facility] Comment on above: Performed By: #### 5 7021-8 #### SILVERIO NI ([id number]) [facility] ([facility]) [address] [place] [address] Erythrocyte distribution width (RBC) [Ratio] 12.2 % Normal 11.5-14.5 [facility] Comment on above: Performed By: #### 5 7021-8 #### SILVERIO NI ([id number]) [facility] ([facility]) [address] [place] [address] Hematocrit (Bld) [Volume fraction] 43.9 % Normal 41.0-52.0 [facility] Comment on above: Performed By: #### 5 7021-8 #### SILVERIO NI ([id number]) [facility] ([facility]) [address] [place] [address] Hemoglobin (Bld) [Mass/Vol] 14.4 g/dL Normal 13.5-17.5 [facility] Comment on above: Performed By: #### 5 7021-8 #### SILVERIO NI ([id number]) [facility] ([facility]) [address] [place] [address] Immature granulocytes (Bld) [#/Vol] 0.03 x10*3/uL Normal 0.00-0.70 [facility] Comment on above: Performed By: #### 5 7021-8 #### SILVERIO NI ([id number]) [facility] ([facility]) [address] [place] [address] Immature granulocytes/100 WBC (Bld) 0.3 % Normal 0.0-0.9 [facility] Comment on above: Result Comment: Leesa ture Granulocyte Count (IG) includes promyelocytes, myelocytes and metamyelocytes but does not include bands. Percent differential counts (%) should be interpreted in the context of the absolute cell counts (cells/UL). Performed By: #### 5 7021-8 #### SILVERIO NI ([id number]) [facility] ([facility]) [address] [place] [address] Lymphocytes (Bld) [#/Vol] 2.53 x10*3/uL Normal 1.20-4.80 [facility] Comment on above: Performed By: #### 5 7021-8 #### SILVERIO NI ([id number]) [facility] ([facility]) [address] [place] [address] Lymphocytes/100 WBC (Bld) 24.0 % Normal 13.0-44.0 [facility] Comment on above: Performed By: #### 5 7021-8 #### SILVERIO NI ([id number]) [facility] ([facility]) [address] [place] [address] MCH (RBC) [Entitic mass] 29.9 pg Normal 26.0-34.0 [facility] Comment on above: Performed By: #### 5 7021-8 #### SILVERIO NI ([id number]) [facility] ([facility]) [address] [place] [address] MCHC (RBC) [Mass/Vol] 32.8 g/dL Normal 32.0-36.0 [facility] Comment on above: Performed By: #### 5 7021-8 #### SILVERIO NI ([id number]) [facility] ([facility]) [address] [place] [address] MCV (RBC) [Entitic vol] 91 fL Normal 80-100 [facility] Comment on above: Performed By: #### 5 7021-8 #### SILVERIO NI ([id number]) [facility] ([facility]) [address] [place] [address] Monocytes (Bld) [#/Vol] 0.79 x10*3/uL Normal 0.10-1.00 [facility] Comment on above: Performed By: #### 5 7021-8 #### SILVERIO NI ([id number]) [facility] ([facility]) [address] [place] [address] Monocytes/100 WBC (Bld) 7.5 % Normal 2.0-10.0 [facility] Comment on above: Performed By: #### 5 7021-8 #### SILVERIO NI ([id number]) [facility] ([facility]) [address] [place] [address] Neutrophils (Bld) [#/Vol] 7.15 x10*3/uL Normal 1.20-7.70 [facility] Comment on above: Result Comment: Perc ent differential counts (%) should be interpreted in the context of the absolute cell counts (cells/uL). Performed By: #### 5 7021-8 #### SILVERIO NI ([id number]) [facility] ([facility]) [address] [place] [address] Neutrophils/100 WBC (Bld) 67.7 % Normal 40.0-80.0 [facility] Comment on above: Performed By: #### 5 7021-8 #### SILVERIO NI ([id number]) [facility] ([facility]) [address] [place] [address] Nucleated RBC/100 WBC (Bld) [Ratio] 0.0 /100 WBCs Normal 0.0-0.0 [facility] Comment on above: Performed By: #### 5 7021-8 #### SILVERIO NI ([id number]) [facility] ([facility]) [address] [place] [address] Platelets (Bld) [#/Vol] 360 x10*3/uL Normal 150-450 [facility] Comment on above: Performed By: #### 5 7021-8 #### SILVERIO NI ([id number]) [facility] ([facility]) [address] [place] [address] RBC (Bld) [#/Vol] 4.81 x10*6/uL Normal 4.50-5.90 [facility] Comment on above: Performed By: #### 5 7021-8 #### SILVERIO NI ([id number]) [facility] ([facility]) [address] [place] [address] WBC (Bld) [#/Vol] 10.6 x10*3/uL Normal 4.4-11.3 [facility] Comment on above: Performed By: #### 5 7021-8 #### SILVERIO NI ([id number]) [facility] ([facility]) [address] [place] [address] Comprehensive metabolic 2000 panelon 02-07-2024 Albumin BCP dye [Mass/Vol] 4 g/dL 3.4 - 5.0 g/dL [facility] ALP [Catalytic activity/Vol] 84 U/L 33 - 136 U/L [facility] ALT With P-5'-P [Catalytic activity/Vol] 17 U/L 10 - 52 U/L [facility] Comment on above: Patients treated wit h Sulfasalazine may generate falsely decreased results for ALT. Anion gap [Moles/Vol] 13 mmol/L 10 - 2 0 mmol/L [facility] AST With P-5'-P [Catalytic activity/Vol] 17 U/L 9 - 39 U/L [facility] Bilirubin [Mass/Vol] 0.5 mg/dL 0.0 - 1 .2 mg/dL [facility] Calcium [Mass/Vol] 9.7 mg/dL 8.6 - 10. 3 mg/dL [facility] Chloride [Moles/Vol] 100 mmol/L 98 - 10 7 mmol/L [facility] CO2 [Moles/Vol] 29 mmol/L 21 - 32 mmol/L [facility] Creatinine [Mass/Vol] 1.1 mg/dL 0.50 - 1.30 mg/dL [facility] GFR/1.73 sq M.predicted among non-blacks MDRD (S/P/Bld) [Vol rate/Area] 76 mL/min/{1.73_m2} - PINF [facility] Comment on above: Calculations of fara mated GFR are performed using the 2020 CKD-EPI Study Refit equation without the race variable for the IDMS-Traceable creatinine methods. https://jasn.asnjournals.org/content/early/ASN.26833 65279 Glucose [Mass/Vol] 174 mg/dL High 74 - 99 mg/dL [facility] Potassium [Moles/Vol] 5 mmol/L 3.5 - 5.3 mmol/L [facility] Protein [Mass/Vol] 7 g/dL 6.4 - 8.2 g/dL [facility] Sodium [Moles/Vol] 137 mmol/L 136 - 145 mmol/L [facility] Urea nitrogen [Mass/Vol] 14 mg/dL 6 - 23 mg/dL [facility] Albumin BCP dye [Mass/Vol] 4.0 g/dL Normal 3.4-5.0 [facility] Comment on above: Performed By: #### 2 4323-8 #### SILVERIO NI ([id number]) [facility] ([facility]) [address] [place] [address] ALP [Catalytic activity/Vol] 84 U/L Normal 33-136 [facility] Comment on above: Performed By: #### 2 4323-8 #### SILVERIO NI ([id number]) [facility] ([facility]) [address] [place] [address] ALT With P-5'-P [Catalytic activity/Vol] 17 U/L Normal 10-52 [facility] Comment on above: Result Comment: Svetlana ents treated with Sulfasalazine may generate falsely decreased results for ALT. Performed By: #### 2 4323-8 #### SILVERIO NI ([id number]) [facility] ([facility]) [address] [place] [address] Anion gap [Moles/Vol] 13 mmol/L Normal 10-20 [facility] Comment on above: Performed By: #### 2 4323-8 #### SILVERIO NI ([id number]) [facility] ([facility]) [address] [place] [address] AST With P-5'-P [Catalytic activity/Vol] 17 U/L Normal 9-39 [facility] Comment on above: Performed By: #### 2 4323-8 #### SILVERIO NI ([id number]) [facility] ([facility]) [address] [place] [address] Bilirubin [Mass/Vol] 0.5 mg/dL Normal 0.0-1.2 [facility] Comment on above: Performed By: #### 2 4323-8 #### SILVERIO NI ([id number]) [facility] ([facility]) [address] [place] [address] Calcium [Mass/Vol] 9.7 mg/dL Normal 8.6-10.3 [facility] Comment on above: Performed By: #### 2 4323-8 #### SILVERIO NI ([id number]) [facility] ([facility]) [address] [place] [address] Chloride [Moles/Vol] 100 mmol/L Normal 98-107 [facility] Comment on above: Performed By: #### 2 4323-8 #### SILVERIO NI ([id number]) [facility] ([facility]) [address] [place] [address] CO2 [Moles/Vol] 29 mmol/L Normal 21-32 [facility] Comment on above: Performed By: #### 2 4323-8 #### SILVERIO NI ([id number]) [facility] ([facility]) [address] [place] [address] Creatinine [Mass/Vol] 1.10 mg/dL Normal 0.50-1.30 [facility] Comment on above: Performed By: #### 2 4323-8 #### SILVERIO NI ([id number]) [facility] ([facility]) [address] [place] [address] Glomerular filtration rate/1.73 sq M.predicted 76 mL/min/1.73m*2 Normal >60 [facility] Comment on above: Result Comment: Calc ulations of estimated GFR are performed using the 2020 CKD-EPI Study Refit equation without the race variable for the IDMS-Traceable creatinine methods. https://jasn.asnjournals.org/content/early//ASN.70363 27702 Performed By: #### 2 4323-8 #### SILVERIO NI ([id number]) [facility] ([facility]) [address] [place] [address] Glucose [Mass/Vol] 174 mg/dL High 74-99 [facility] Comment on above: Performed By: #### 2 4323-8 #### SILVERIO NI ([id number]) [facility] ([facility]) [address] [place] [address] Potassium [Moles/Vol] 5.0 mmol/L Normal 3.5-5.3 [facility] Comment on above: Performed By: #### 2 4323-8 #### SILVERIO NI ([id number]) [facility] ([facility]) [address] [place] [address] Protein [Mass/Vol] 7.0 g/dL Normal 6.4-8.2 [facility] Comment on above: Performed By: #### 2 4323-8 #### SILVERIO NI ([id number]) [facility] ([facility]) [address] [place] [address] Sodium [Moles/Vol] 137 mmol/L Normal 136-145 [facility] Comment on above: Performed By: #### 2 4323-8 #### SILVERIO NI ([id number]) [facility] ([facility]) [address] [place] [address] Urea nitrogen [Mass/Vol] 14 mg/dL Normal 6-23 [facility] Comment on above: Performed By: #### 2 4323-8 #### SILVERIO NI ([id number]) [facility] ([facility]) [address] [place] [address] ECG 12-LEADon 02-07-2024 ECG 12-LEAD Ventricular Rate 80 Atrial Rate 80 P-R Interval 178 QRS Duration 78 Q-T Interval 378 QTC Calculation(Bazett) 435 P Oxford 50 R Oxford 49 T Oxford 69 QRS Count 13 Q Onset 221 P Onset 132 P Offset 174 T Offset 410 QTC Fredericia 416 Diagnosis Normal sinus rhythm Normal ECG When compared with ECG of 29-AUG-2008 14:32, T wave inversion no longer evident in Inferior leads Confirmed by Tari Baig ([id number]) on 02/15/2024 2:01:[address] [facility] Influenza virus A and B and SARS-CoV-2 (COVID-19) identified TICO+probe Nom (Resp)on 02-07-2024 FLUAV RNA TICO+probe Ql (Resp) Not detected Not Detected [facility] FLUBV RNA TICO+probe Ql (Resp) Not detected Not Detected [facility] Interpretation and review of laboratory results Normal [facility] SARS-CoV-2 (COVID-19) RNA TICO+probe Ql (Resp) Not detected Not Detected [facility] This assay has received FDA Emergency [...] and has been validated for use at [facility]. Negative results do not preclude COVID-19 infections or Influenza A/B infections, and should not be used as the sole basis for diagnosis, treatment, or other management decisions. If Influenza A/B and RSV PCR results are negative, testing for Parainfluenza virus, Adenovirus and Metapneumovirus is routinely performed for [facility] pediatric oncology and intensive care inpatients, and is available on other patients by placing an add-on request. [facility] FLUAV RNA TICO+probe Ql (Resp) Not detected Normal Not Detected [facility] Comment on above: Order Comment: This [...] and has been validated for use at [facility]. Negative results do not preclude COVID-19 infections or Influenza A/B infections, and should not be used as the sole basis for diagnosis, treatment, or other management decisions. If Influenza A/B and RSV PCR results are negative, testing for Parainfluenza virus, Adenovirus and Metapneumovirus is routinely performed for [facility] pediatric oncology and intensive care inpatients, and is available on other patients by placing an add-on request. Performed By: #### 9 5423-0 #### SILVERIO NI ([id number]) [facility] ([facility]) [address] [place] [address] FLUBV RNA TICO+probe Ql (Resp) Not detected Normal Not Detected [facility] Comment on above: Order Comment: This [...] and has been validated for use at [facility]. Negative results do not preclude COVID-19 infections or Influenza A/B infections, and should not be used as the sole basis for diagnosis, treatment, or other management decisions. If Influenza A/B and RSV PCR results are negative, testing for Parainfluenza virus, Adenovirus and Metapneumovirus is routinely performed for [facility] pediatric oncology and intensive care inpatients, and is available on other patients by placing an add-on request. Performed By: #### 9 5423-0 #### SILVERIO NI ([id number]) [facility] ([facility]) [address] [place] [address] SARS-CoV-2 (COVID-19) RNA TICO+probe Ql (Resp) Not detected Normal Not Detected [facility] Comment on above: Order Comment: This [...] and has been validated for use at [facility]. Negative results do not preclude COVID-19 infections or Influenza A/B infections, and should not be used as the sole basis for diagnosis, treatment, or other management decisions. If Influenza A/B and RSV PCR results are negative, testing for Parainfluenza virus, Adenovirus and Metapneumovirus is routinely performed for [facility] pediatric oncology and intensive care inpatients, and is available on other patients by placing an add-on request. Performed By: #### 9 5423-0 #### SILVERIO NI ([id number]) [facility] ([facility]) [address] [place] [address] Magnesiumon 02-07-2024 Magnesium [Mass/Vol] 1.51 mg/dL Low 1.60 - 2.40 mg/dL [facility] Magnesium [Mass/Vol] 1.51 mg/dL Low 1.60-2.40 [facility] Comment on above: Performed By: #### 1 9123-9 #### SILVERIO NI ([id number]) [facility] ([facility]) [address] [place] [address] No Panel Informationon 02-06 Extra Tube Hold for add-ons. [facility] Comment on above: Auto resulted. [facility] Interpretation and review of laboratory results Abnormal [facility] RSV PCROrdered By: Lupis coleman on 02-07-2024 RSV RNA TICO+probe Ql (Resp) Not detected Not Detected [facility] RSV RNA TICO+probe Ql (Resp)O rdered By: Lupis Mari on 02-07-2024 Interpretation and review of laboratory results Normal [facility] This assay is an FDA-cleared, in vitro diagnostic nucleic acid amplification test for the detection of RSV from nasopharyngeal specimens, and has been validated for use at [facility]. Negative results do not preclude RSV infections, and should not be used as the sole basis for diagnosis, treatment, or other management decisions. If Influenza A/B and RSV PCR results are negative, testing for Parainfluenza virus, Adenovirus and Metapneumovirus is routinely performed for pediatric oncology and intensive care inpatients at [facility], and is available on other patients by placing an add-on request. [facility] Respiratory syncytial virus RNAon 02-07-2024 RSV RNA TICO+probe Ql (Resp) Not detected Normal Not Detected [facility] Comment on above: Order Comment: This assay is an FDA-cleared, in vitro diagnostic nucleic acid amplification test for the detection of RSV from nasopharyngeal specimens, and has been validated for use at [facility]. Negative results do not preclude RSV infections, and should not be used as the sole basis for diagnosis, treatment, or other management decisions. If Influenza A/B and RSV PCR results are negative, testing for Parainfluenza virus, Adenovirus and Metapneumovirus is routinely performed for pediatric oncology and intensive care inpatients at [facility], and is available on other patients by placing an add-on request. Performed By: #### 9 2131-2 #### SILVERIO NI ([id number]) [facility] ([facility]) [address] [place] [address] Tropinin I.cardiac panel Hig h sensitivity methodon 02-07-2024 Interpretation and review of laboratory results Normal [facility] [facility] Less than 99th percentile of normal [...] performed using a different testing methodology at [facility] than at other [facility]. Direct result comparisons should only be made within the same method. [facility] Troponin I, High Sensitivity on 02-07-2024 Tropinin I.cardiac panel High sensitivity method 4 ng/L 0 - 20 ng/L [facility] Troponin I.cardiac panelon 1 04-09-2023 Tropinin I.cardiac panel High sensitivity method 4 ng/L Normal 0-20 [facility] Comment on above: Order Comment: Less [...] is performed using a differenttesting methodology at [facility] than at [facility]. Direct result comparisons should onlybe made within the same method. Performed By: #### 2 4323-8 #### SILVERIO NI ([id number]) [facility] ([facility]) [address] [place] [address] XR CHEST 1 VIEWon 02-07-2024 XR CHEST 1 VIEW STUDY: Chest Radiograph; 02/07/2024 2:19 PM INDICATION: Evaluate for pneumonia. COMPARISON: CT of the abdomen and pelvis 10/27/2023. ACCESSION NUMBER(S): [id number] ORDERING CLINICIAN: MAYCO WOODS TECHNIQUE: Frontal chest [...] appears clear. Signed by Norma Grimm DO [facility] XR Chest Single viewon 02-06 1.Normal [...] the abdomen and pelvis 10/27/2023. ACCESSION NUMBER(S): [id number] ORDERING CLINICIAN: MAYCO WOODS TECHNIQUE: Frontal chest [...] the abdomen and pelvis 10/27/2023. ACCESSION NUMBER(S): [id number] ORDERING CLINICIAN: MAYCO WOODS TECHNIQUE: Frontal chest [...] appears clear. Signed by Norma Grimm DO [facility] Work Phone: Radiology Study observation (narrative) [facility] Work Phone: XR Chest Single viewOrdered By: Norma Grimm on 02-07-2024 [facility] Work Phone: US THYROIDon 01-21-2024 US THYROID Interpreted By: Manuel Campbell, STUDY: US THYROID; 01/21/2024 4:14 pm INDICATION: Signs/Symptoms:evaluat e thyroid nodule stability. COMPARISON: 08/02/2023 ACCESSION NUMBER(S): [id number] ORDERING CLINICIAN: GOYO SNIDER TECHNIQUE: Multiple ultrasonographic [...] are based on the recommendations of the [employer] TI-RADS grading system. ACR [...] Manuel Campbell 01/22/2024 7:20 PM Dictation workstation: [id number] [facility] XR ABDOMEN 1 VIEWon 11-13-19 XR ABDOMEN 1 VIEW Interpreted By: Martir Mata, STUDY: XR ABDOMEN 1 VIEW; 11/13/2023 4:40 pm INDICATION: Signs/Symptoms:right sided ureterlithiasis. ,N20.0 Calculus of kidney COMPARISON: None. ACCESSION NUMBER(S): [id number] ORDERING CLINICIAN: HERIBERTO DAVALOS FINDINGS: Abdomen, two views No definite radiopaque renal calculi seen. Nonobstructive bowel gas pattern. Limited evaluation of pneumoperitoneum on supine imaging, however no gross evidence of free air is noted. Visualized lungs are clear. Osseous structures demonstrate no acute bony changes. IMPRESSION: 1. No radiopaque renal calculi seen. MACRO: None Signed by: Martir Mata 11/14/2023 7:44 PM Dictation workstation: [id number] [facility] POCT glycosylated hemoglobin (Hb A1C) manually resultedOrdered By: Marina Busch on 10-28-2023 POC HEMOGLOBIN A1c 6.4 % 4.2 - 6.5 % [facility] CBC W Auto Differential pane l (Bld)on 10-27-2023 Basophils (Bld) [#/Vol] 0.06 10*3/uL [facility] Basophils/100 WBC (Bld) 0.4 % 0.0 - 2.0 % [facility] Eosinophils (Bld) [#/Vol] 0.01 10*3/uL [facility] Eosinophils/100 WBC (Bld) 0.1 % 0.0 - 6.0 % [facility] Erythrocyte distribution width (RBC) [Ratio] 13.0 % 11.5 - 14.5 % [facility] Hematocrit (Bld) [Volume fraction] 38.5 % Low 41.0 - 52.0 % [facility] Hemoglobin (Bld) [Mass/Vol] 12.9 g/dL Low 13.5 - 17.5 g/dL [facility] Immature granulocytes (Bld) [#/Vol] 0.06 10*3/uL [facility] Immature granulocytes/100 WBC (Bld) 0.4 % 0.0 - 0.9 % [facility] Comment on above: Immature Granulocyte Count (IG) includes promyelocytes, myelocytes and metamyelocytes but does not include bands. Percent differential counts (%) should be interpreted in the context of the absolute cell counts (cells/UL). Interpretation and review of laboratory results Abnormal [facility] Lymphocytes (Bld) [#/Vol] 1.18 10*3/uL Low [facility] Lymphocytes/100 WBC (Bld) 6.9 % 13.0 - 44.0 % [facility] MCH (RBC) [Entitic mass] 30.6 pg 26.0 - 34.0 pg [facility] MCHC (RBC) [Mass/Vol] 33.5 g/dL 32.0 - 36.0 g/dL [facility] MCV (RBC) [Entitic vol] 91 fL 80 - 100 fL [facility] Monocytes (Bld) [#/Vol] 0.57 10*3/uL [facility] Monocytes/100 WBC (Bld) 3.3 % 2.0 - 10.0 % [facility] Neutrophils (Bld) [#/Vol] 15.25 10*3/uL High [facility] Comment on above: Percent differential counts (%) should be interpreted in the context of the absolute cell counts (cells/uL). Neutrophils/100 WBC (Bld) 88.9 % 40.0 - 80.0 % [facility] Nucleated RBC/100 WBC (Bld) [Ratio] 0.0 % [facility] Platelets (Bld) [#/Vol] 294 10*3/uL [facility] RBC (Bld) [#/Vol] 4.21 10*6/uL [facility] WBC (Bld) [#/Vol] 17.1 10*3/uL High [facility] Basophils (Bld) [#/Vol] 0.06 x10*3/uL Normal 0.00-0.10 [facility] Comment on above: Performed By: #### 5 7021-8 #### SILVERIO NI ([id number]) [facility] ([facility]) [address] [place] [address] Basophils/100 WBC (Bld) 0.4 % Normal 0.0-2.0 [facility] Comment on above: Performed By: #### 5 7021-8 #### SILVERIO NI ([id number]) [facility] ([facility]) [address] [place] [address] Eosinophils (Bld) [#/Vol] 0.01 x10*3/uL Normal 0.00-0.70 [facility] Comment on above: Performed By: #### 5 7021-8 #### SILVERIO NI ([id number]) [facility] ([facility]) [address] [place] [address] Eosinophils/100 WBC (Bld) 0.1 % Normal 0.0-6.0 [facility] Comment on above: Performed By: #### 5 7021-8 #### SILVERIO NI ([id number]) [facility] ([facility]) [address] [place] [address] Erythrocyte distribution width (RBC) [Ratio] 13.0 % Normal 11.5-14.5 [facility] Comment on above: Performed By: #### 5 7021-8 #### SILVERIO NI ([id number]) [facility] ([facility]) [address] [place] [address] Hematocrit (Bld) [Volume fraction] 38.5 % Low 41.0-52.0 [facility] Comment on above: Performed By: #### 5 7021-8 #### SILVERIO NI ([id number]) [facility] ([facility]) [address] [place] [address] Hemoglobin (Bld) [Mass/Vol] 12.9 g/dL Low 13.5-17.5 [facility] Comment on above: Performed By: #### 5 7021-8 #### SILVERIO NI ([id number]) [facility] ([facility]) [address] [place] [address] Immature granulocytes (Bld) [#/Vol] 0.06 x10*3/uL Normal 0.00-0.70 [facility] Comment on above: Performed By: #### 5 7021-8 #### SILVERIO NI ([id number]) [facility] ([facility]) [address] [place] [address] Immature granulocytes/100 WBC (Bld) 0.4 % Normal 0.0-0.9 [facility] Comment on above: Result Comment: Leesa ture Granulocyte Count (IG) includes promyelocytes, myelocytes and metamyelocytes but does not include bands. Percent differential counts (%) should be interpreted in the context of the absolute cell counts (cells/UL). Performed By: #### 5 7021-8 #### SILVERIO NI ([id number]) [facility] ([facility]) [address] [place] [address] Lymphocytes (Bld) [#/Vol] 1.18 x10*3/uL Low 1.20-4.80 [facility] Comment on above: Performed By: #### 5 7021-8 #### SILVERIO NI ([id number]) [facility] ([facility]) [address] [place] [address] Lymphocytes/100 WBC (Bld) 6.9 % Normal 13.0-44.0 [facility] Comment on above: Performed By: #### 5 7021-8 #### SILVERIO NI ([id number]) [facility] ([facility]) [address] [place] [address] MCH (RBC) [Entitic mass] 30.6 pg Normal 26.0-34.0 [facility] Comment on above: Performed By: #### 5 7021-8 #### SILVERIO NI ([id number]) [facility] ([facility]) [address] [place] [address] MCHC (RBC) [Mass/Vol] 33.5 g/dL Normal 32.0-36.0 [facility] Comment on above: Performed By: #### 5 7021-8 #### SILVERIO NI ([id number]) [facility] ([facility]) [address] [place] [address] MCV (RBC) [Entitic vol] 91 fL Normal 80-100 [facility] Comment on above: Performed By: #### 5 7021-8 #### SILVERIO NI ([id number]) [facility] ([facility]) [address] [place] [address] Monocytes (Bld) [#/Vol] 0.57 x10*3/uL Normal 0.10-1.00 [facility] Comment on above: Performed By: #### 5 7021-8 #### SILVERIO NI ([id number]) [facility] ([facility]) [address] [place] [address] Monocytes/100 WBC (Bld) 3.3 % Normal 2.0-10.0 [facility] Comment on above: Performed By: #### 5 7021-8 #### SILVERIO NI ([id number]) [facility] ([facility]) [address] [place] [address] Neutrophils (Bld) [#/Vol] 15.25 x10*3/uL High 1.20-7.70 [facility] Comment on above: Result Comment: Perc ent differential counts (%) should be interpreted in the context of the absolute cell counts (cells/uL). Performed By: #### 5 7021-8 #### SILVERIO NI ([id number]) [facility] ([facility]) [address] [place] [address] Neutrophils/100 WBC (Bld) 88.9 % Normal 40.0-80.0 [facility] Comment on above: Performed By: #### 5 7021-8 #### SILVERIO NI ([id number]) [facility] ([facility]) [address] [place] [address] Nucleated RBC/100 WBC (Bld) [Ratio] 0.0 /100 WBCs Normal 0.0-0.0 [facility] Comment on above: Performed By: #### 5 7021-8 #### SILVERIO NI ([id number]) [facility] ([facility]) [address] [place] [address] Platelets (Bld) [#/Vol] 294 x10*3/uL Normal 150-450 [facility] Comment on above: Performed By: #### 5 7021-8 #### SILVERIO NI ([id number]) [facility] ([facility]) [address] [place] [address] RBC (Bld) [#/Vol] 4.21 x10*6/uL Low 4.50-5.90 [facility] Comment on above: Performed By: #### 5 7021-8 #### SILVERIO NI ([id number]) [facility] ([facility]) [address] [place] [address] WBC (Bld) [#/Vol] 17.1 x10*3/uL High 4.4-11.3 [facility] Comment on above: Performed By: #### 5 7021-8 #### SILVERIO NI ([id number]) [facility] ([facility]) [address] [place] [address] CT ABDOMEN PELVIS W IV CONTR Deysi 10-27-2023 CT ABDOMEN PELVIS W IV CONTRAST STUDY: CT Abdomen and Pelvis with IV Contrast; 10/27/2023 at 3:20 PM INDICATION: Right-sided abdominal tenderness, nausea and vomiting. COMPARISON: Correlation with XR left hip/pelvis 12/06/19. ACCESSION NUMBER(S): [id number] ORDERING CLINICIAN: THERON RIBERA TECHNIQUE: CT of [...] of fibrothorax. Signed by Carlos Viera MD [facility] CT Abdomen and Pelvis W cont [...] with XR left hip/pelvis 12/06/19. ACCESSION NUMBER(S): [id number] ORDERING CLINICIAN: THERON RIBERA TECHNIQUE: CT of [...] with XR left hip/pelvis 12/06/19. ACCESSION NUMBER(S): [id number] ORDERING CLINICIAN: THERON RIBERA TECHNIQUE: CT of [...] of fibrothorax. Signed by Carlos Viera MD [facility] Work Phone: Radiology Study observation (narrative) [facility] Work Phone: CT Abdomen and Pelvis W cont rast IVOrdered By: Carlos Viera on 10-27-2023 [facility] Work Phone: Comprehensive metabolic 2000 panelon 10-27-2023 Albumin BCP dye [Mass/Vol] 4.0 g/dL 3.4 - 5.0 g/dL [facility] ALP [Catalytic activity/Vol] 71 U/L 33 - 136 U/L [facility] ALT With P-5'-P [Catalytic activity/Vol] 13 U/L 10 - 52 U/L [facility] Comment on above: Patients treated wit h Sulfasalazine may generate falsely decreased results for ALT. Anion gap [Moles/Vol] 16 mmol/L 10 - 2 0 mmol/L [facility] AST With P-5'-P [Catalytic activity/Vol] 15 U/L 9 - 39 U/L [facility] Bilirubin [Mass/Vol] 0.5 mg/dL 0.0 - 1 .2 mg/dL [facility] Calcium [Mass/Vol] 8.9 mg/dL 8.6 - 10. 3 mg/dL [facility] Chloride [Moles/Vol] 98 mmol/L 98 - 10 7 mmol/L [facility] CO2 [Moles/Vol] 23 mmol/L 21 - 32 mmol/L [facility] Creatinine [Mass/Vol] 1.69 mg/dL High 0.50 - 1.30 mg/dL [facility] GFR/1.73 sq M.predicted among non-blacks MDRD (S/P/Bld) [Vol rate/Area] 46 mL/min/{1.73_m2} Low - PINF [facility] Comment on above: Calculations of fara mated GFR are performed using the 2020 CKD-EPI Study Refit equation without the race variable for the IDMS-Traceable creatinine methods. https://jasn.asnjournals.org/content//ASN.64062 29579 Glucose [Mass/Vol] 241 mg/dL High 74 - 99 mg/dL [facility] Interpretation and review of laboratory results Abnormal [facility] Potassium [Moles/Vol] 5.1 mmol/L 3.5 - 5.3 mmol/L [facility] Protein [Mass/Vol] 6.9 g/dL 6.4 - 8.2 g/dL [facility] Sodium [Moles/Vol] 132 mmol/L Low 136 - 145 mmol/L [facility] Urea nitrogen [Mass/Vol] 30 mg/dL High 6 - 23 mg/dL [facility] Albumin BCP dye [Mass/Vol] 4.0 g/dL Normal 3.4-5.0 [facility] Comment on above: Performed By: #### 2 4323-8 #### SILVERIO NI ([id number]) [facility] ([facility]) [address] [place] [address] ALP [Catalytic activity/Vol] 71 U/L Normal 33-136 [facility] Comment on above: Performed By: #### 2 4323-8 #### SILVERIO NI ([id number]) [facility] ([facility]) [address] [place] [address] ALT With P-5'-P [Catalytic activity/Vol] 13 U/L Normal 10-52 [facility] Comment on above: Result Comment: Svetlana ents treated with Sulfasalazine may generate falsely decreased results for ALT. Performed By: #### 2 4323-8 #### SILVERIO NI ([id number]) [facility] ([facility]) [address] [place] [address] Anion gap [Moles/Vol] 16 mmol/L Normal 10-20 [facility] Comment on above: Performed By: #### 2 4323-8 #### SILVERIO NI ([id number]) [facility] ([facility]) [address] [place] [address] AST With P-5'-P [Catalytic activity/Vol] 15 U/L Normal 9-39 [facility] Comment on above: Performed By: #### 2 4323-8 #### SILVERIO NI ([id number]) [facility] ([facility]) [address] [place] [address] Bilirubin [Mass/Vol] 0.5 mg/dL Normal 0.0-1.2 [facility] Comment on above: Performed By: #### 2 4323-8 #### SILVERIO NI ([id number]) [facility] ([facility]) [address] [place] [address] Calcium [Mass/Vol] 8.9 mg/dL Normal 8.6-10.3 [facility] Comment on above: Performed By: #### 2 4323-8 #### SILVERIO NI ([id number]) [facility] ([facility]) [address] [place] [address] Chloride [Moles/Vol] 98 mmol/L Normal 98-107 [facility] Comment on above: Performed By: #### 2 4323-8 #### SILVERIO NI ([id number]) [facility] ([facility]) [address] [place] [address] CO2 [Moles/Vol] 23 mmol/L Normal 21-32 [facility] Comment on above: Performed By: #### 2 4323-8 #### SILVERIO NI ([id number]) [facility] ([facility]) [address] [place] [address] Creatinine [Mass/Vol] 1.69 mg/dL High 0.50-1.30 [facility] Comment on above: Performed By: #### 2 4323-8 #### SILVERIO NI ([id number]) [facility] ([facility]) [address] [place] [address] Glomerular filtration rate/1.73 sq M.predicted 46 mL/min/1.73m*2 Low >60 [facility] Comment on above: Result Comment: Calc ulations of estimated GFR are performed using the 2020 CKD-EPI Study Refit equation without the race variable for the IDMS-Traceable creatinine methods. https://jasn.asnjournals.org/content/early/ASN.55125 22366 Performed By: #### 2 4323-8 #### SILVERIO NI ([id number]) [facility] ([facility]) [address] [facility] [address] Glucose [Mass/Vol] 241 mg/dL High 74-99 [facility] Comment on above: Performed By: #### 2 4323-8 #### SILVERIO NI ([id number]) [facility] ([facility]) [address] [place] [address] Potassium [Moles/Vol] 5.1 mmol/L Normal 3.5-5.3 [facility] Comment on above: Performed By: #### 2 4323-8 #### SILVERIO NI ([id number]) [facility] ([facility]) [address] [place] [address] Protein [Mass/Vol] 6.9 g/dL Normal 6.4-8.2 [facility] Comment on above: Performed By: #### 2 4323-8 #### SILVERIO NI ([id number]) [facility] ([facility]) [address] [place] [address] Sodium [Moles/Vol] 132 mmol/L Low 136-145 [facility] Comment on above: Performed By: #### 2 4323-8 #### SILVERIO NI ([id number]) [facility] ([facility]) [address] [place] [address] Urea nitrogen [Mass/Vol] 30 mg/dL High 6-23 [facility] Comment on above: Performed By: #### 2 4323-8 #### SILVERIO NI ([id number]) [facility] ([facility]) [address] [place] [address] No Panel Informationon 10-26 Interpretation and review of laboratory results Abnormal [facility] Urinalysis complete panel (U )on 10-27-2023 Appearance (U) Clear Clear [facility] Bilirubin (U) [Mass/Vol] Negative NEGATIVE [facility] Color (U) Light-Yellow Light-Yellow , Yellow, Dark-Yellow [facility] Glucose Auto test strip (U) [Mass/Vol] 300 (3+) Abnormal Normal mg/dL [facility] Ketones (U) [Mass/Vol] 10 (1+) Abnormal NEGAT CARLI mg/dL [facility] Leukocyte esterase Auto test strip Ql (U) Negative NEGATIVE [facility] Nitrite Auto test strip Ql (U) Negative NEGATIVE [facility] pH (U) 5.0 [pH] 5.0, 5.5, 6.0, 6.5, 7.0, 7.5, 8.0 [facility] Protein (U) [Mass/Vol] Negative NEGAT CARLI, 10 (TRACE), 20 (TRACE) mg/dL [facility] RBC (U) [#/Vol] 1.0 (3+) Abnormal NEGATIVE [facility] Specific gravity (U) [Rel density] 1.013 1.005 - 1.035 [facility] Urobilinogen (U) [Mass/Vol] Normal Normal mg/dL [facility] Appearance (U) Clear Normal Clear [facility] Comment on above: Performed By: #### 2 4356-8 #### SILVERIO NI ([id number]) [facility] ([facility]) [address] [place] [address] Bilirubin (U) [Mass/Vol] Negative Normal NEGATIVE [facility] Comment on above: Performed By: #### 2 4356-8 #### SILVERIO NI ([id number]) [facility] ([facility]) [address] [place] [address] Color (U) Light-Yellow Normal Light-Yellow , Yellow, Dark-Yellow [facility] Comment on above: Performed By: #### 2 4356-8 #### SILVERIO NI ([id number]) [facility] ([facility]) [address] [place] [address] Glucose Auto test strip (U) [Mass/Vol] 300 (3+) Abnormal Normal [facility] Comment on above: Performed By: #### 2 4356-8 #### SILVERIO NI ([id number]) [facility] ([facility]) [address] [place] [address] Ketones (U) [Mass/Vol] 10 (1+) Abnormal NEGATIVE [facility] Comment on above: Performed By: #### 2 4356-8 #### SILVERIO NI ([id number]) [facility] ([facility]) [address] [place] [address] Leukocyte esterase Auto test strip Ql (U) Negative Normal NEGATIVE [facility] Comment on above: Performed By: #### 2 4356-8 #### SILVERIO NI ([id number]) [facility] ([facility]) [address] [place] [address] Nitrite Auto test strip Ql (U) Negative Normal NEGATIVE [facility] Comment on above: Performed By: #### 2 4356-8 #### SILVERIO NI ([id number]) [facility] ([facility]) [address] [place] [address] pH (U) 5.0 [pH] Normal 5.0, 5.5, 6.0, 6.5, 7.0, 7.5, 8.0 [facility] Comment on above: Performed By: #### 2 4355-8 #### SILVERIO NI ([id number]) [facility] ([facility]) [address] [place] [address] Protein (U) [Mass/Vol] Negative Normal NEGAT CARLI, 10 (TRACE), 20 (TRACE) [facility] Comment on above: Performed By: #### 2 6-8 #### SILVERIO NI ([id number]) [facility] ([facility]) [address] [place] [address] RBC (U) [#/Vol] 1.0 (3+) Abnormal NEGATIVE [facility] Comment on above: Performed By: #### 2 4356-8 #### SILVERIO NI ([id number]) [facility] ([facility]) [address] [place] [address] Specific gravity (U) [Rel density] 1.013 Normal 1.005-1.035 [facility] Comment on above: Performed By: #### 2 435-8 #### SILVERIO NI ([id number]) [facility] ([facility]) [address] [place] [address] Urobilinogen (U) [Mass/Vol] Normal Normal Normal [facility] Comment on above: Performed By: #### 2 4356-8 #### SILVERIO NI ([id number]) [facility] ([facility]) [address] [place] [address] Urinalysis microscopic panel Auto Ql (U)on 10-27-2023 RBC Auto (Urine sed) [#/Area] >20 Abnormal NONE, 1-2, 3-5 /HPF [facility] WBC Auto (Urine sed) [#/Area] NONE 1-5, NONE /HPF [facility] RBC Auto (Urine sed) [#/Area] >20 Abnormal NONE, 1-2, 3-5 [facility] Comment on above: Performed By: #### 5 3315-8 #### SILVERIO NI ([id number]) [facility] ([facility]) [address] [place] [address] WBC Auto (Urine sed) [#/Area] NONE Normal 1-5, NONE [facility] Comment on above: Performed By: #### 5 [id number] #### SILVERIO NI ([id number]) [facility] ([facility]) [id number] [place] [id number] [place] Thyroid glandon 4 1. Right thyroid lob e 1.2 cm hypoechoic solid TI-RADS 5 nodule which is slightly larger from prior and appears to be slightly taller than wide. Please note that these statements are based on the recommendations of the [employer] TI-RADS grading system. ACR [...] Heriberto Toscano 08/04/2023 2:34 PM Dictation workstation: [id number] [id number] Interpreted By: Heriberto Toscano, STUDY: US THYROID; 08/02/2023 2:15 pm INDICATION: Signs/Symptoms:thyroid nodules. COMPARISON: 06/1916. ACCESSION NUMBER(S): [id number] ORDERING CLINICIAN: HERIBERTO DAVALOS TECHNIQUE: Multiple ultrasonographic [...] completely solid (2) Echogenicity: Hypoechoic (2) Shape: [id number]-zqya (3) Margin: Smooth (0) Echogenic Foci: None [...] INDICATION: Signs/Symptoms:thyroid nodules. COMPARISON: 06/1916. ACCESSION NUMBER(S): [id number] ORDERING CLINICIAN: HERIBERTO DAVALOS TECHNIQUE: Multiple ultrasonographic [...] completely solid (2) Echogenicity: Hypoechoic (2) Shape: [id number]-bllu-brcx (3) Margin: Smooth (0) Echogenic Foci: None [...] are based on the recommendations of the [employer] TI-RADS grading system. ACR [...] Heriberto Toscano 08/04/2023 2:34 PM Dictation workstation: [id number] [facility] Work Phone: US Thyroid glandOrdered By: Heriberto Toscano on 08-04-2023 [facility] Work Phone: US Thyroid glandon Radiology Study observation (narrative) [facility] Work Phone: POCT glycosylated hemoglobin (Hb A1C) manually resultedon 07-23-2023 Interpretation and review of laboratory results Abnormal [facility] Work Phone: POC HEMOGLOBIN A1c 6.9 % Abnormal 4.2 - 6.5 % Un[facility] Work Phone: [facility] Work Phone: Albumin , Urine Randomon Albumin/Creatinine DL <= 20 mg/L (U) [Mass ratio] 10.9 mg/g NINF [facility] Albumin/Creatinine DL <= 20 mg/L (U) [Mass ratio]on 03-06-2023 Albumin DL <= 20 mg/L (U) [Mass/Vol] 21.7 mg/L Not established [facility] Creatinine (U) [Mass/Vol] 198.3 mg/dL 20.0 - 370.0 mg/dL [facility] CBC W Auto Differential pane l (Bld)on 03-06-2023 Basophils (Bld) [#/Vol] 0.09 10*3/uL [facility] Basophils/100 WBC (Bld) 0.5 % 0.0 - 2.0 % [facility] Eosinophils (Bld) [#/Vol] 0.41 10*3/uL [facility] Eosinophils/100 WBC (Bld) 2.5 % 0.0 - 6.0 % [facility] Erythrocyte distribution width (RBC) [Ratio] 12.9 % 11.5 - 14.5 % [facility] Hematocrit (Bld) [Volume fraction] 38.5 % Low 41.0 - 52.0 % [facility] Hemoglobin (Bld) [Mass/Vol] 12.4 g/dL Low 13.5 - 17.5 g/dL [facility] Immature granulocytes (Bld) [#/Vol] 0.06 10*3/uL [facility] Immature granulocytes/100 WBC (Bld) 0.4 % 0.0 - 0.9 % [facility] Comment on above: Immature Granulocyte Count (IG) includes promyelocytes, myelocytes and metamyelocytes but does not include bands. Percent differential counts (%) should be interpreted in the context of the absolute cell counts (cells/UL). Interpretation and review of laboratory results Abnormal [facility] Lymphocytes (Bld) [#/Vol] 4.88 10*3/uL High [facility] Lymphocytes/100 WBC (Bld) 29.7 % 13.0 - 44.0 % [facility] MCH (RBC) [Entitic mass] 30.2 pg 26.0 - 34.0 pg [facility] MCHC (RBC) [Mass/Vol] 32.2 g/dL 32.0 - 36.0 g/dL [facility] MCV (RBC) [Entitic vol] 94 fL 80 - 100 fL [facility] Monocytes (Bld) [#/Vol] 1.33 10*3/uL High [facility] Monocytes/100 WBC (Bld) 8.1 % 2.0 - 10.0 % [facility] Neutrophils (Bld) [#/Vol] 9.64 10*3/uL [facility] Comment on above: Percent differential counts (%) should be interpreted in the context of the absolute cell counts (cells/uL). Neutrophils/100 WBC (Bld) 58.8 % 40.0 - 80.0 % [facility] Nucleated RBC/100 WBC (Bld) [Ratio] 0.0 % [facility] Platelets (Bld) [#/Vol] 359 10*3/uL [facility] RBC (Bld) [#/Vol] 4.11 10*6/uL Low Un[facility] WBC (Bld) [#/Vol] 16.4 10*3/uL [facility] Cobalamin (Vitamin B12) [Mas s/Vol]on 03-06-2023 Interpretation and review of laboratory results Abnormal [facility] Comprehensive metabolic 2000 panelon 03-06-2023 Albumin BCP dye [Mass/Vol] 4.3 g/dL 3.4 - 5.0 g/dL [facility] ALP [Catalytic activity/Vol] 69 U/L 33 - 136 U/L [facility] ALT With P-5'-P [Catalytic activity/Vol] 33 U/L 10 - 52 U/L [facility] Comment on above: Patients treated wit h Sulfasalazine may generate falsely decreased results for ALT. Anion gap [Moles/Vol] 12 mmol/L 10 - 2 0 mmol/L [facility] AST With P-5'-P [Catalytic activity/Vol] 27 U/L 9 - 39 U/L [facility] Bilirubin [Mass/Vol] 0.4 mg/dL 0.0 - 1 .2 mg/dL [facility] Calcium [Mass/Vol] 10.0 mg/dL 8.6 - 10. 3 mg/dL [facility] Chloride [Moles/Vol] 100 mmol/L 98 - 10 7 mmol/L [facility] CO2 [Moles/Vol] 28 mmol/L 21 - 32 mmol/L [facility] Creatinine [Mass/Vol] 1.75 mg/dL High 0.50 - 1.30 mg/dL [facility] GFR/1.73 sq M.predicted among non-blacks MDRD (S/P/Bld) [Vol rate/Area] 44 mL/min/{1.73_m2} Low - PINF [facility] Comment on above: Calculations of fara mated GFR are performed using the 2020 CKD-EPI Study Refit equation without the race variable for the IDMS-Traceable creatinine methods. https://jasn.asnjournals.org/content/early/ASN.43730 54065 Glucose [Mass/Vol] 138 mg/dL High 74 - 99 mg/dL [facility] Potassium [Moles/Vol] 4.4 mmol/L 3.5 - 5.3 mmol/L [facility] Protein [Mass/Vol] 7.4 g/dL 6.4 - 8.2 g/dL [facility] Sodium [Moles/Vol] 136 mmol/L 136 - 145 mmol/L [facility] Urea nitrogen [Mass/Vol] 35 mg/dL High 6 - 23 mg/dL [facility] HbA1c (Bld) [Mass fraction]o n 03-06-2023 Average glucose Estimated from glycated hemoglobin (Bld) [Mass/Vol] 217 mg/dL Not Established [facility] Interpretation and review of laboratory results Abnormal [facility] Diagnosis of Diabetes-Adults Non-Diabetic: < or = 5.6% Increased risk for developing diabetes: 5.7-6.4% Diagnostic of diabetes: > or = 6.5% Monitoring of Diabetes Age (y)................... .... Therapeutic Goal (%) Adults: >18................... ......<7.0 Pediatrics: 13-18................. ..<7.5 Pediatrics: 7-12.................. ..<8.0 Pediatrics: 0-6................... .. 7.5-8.5 [employer] [place]. Diabetes Care 33(S1), Feb 2009 [facility] Hemoglobin A1Con 03-06-2023 HbA1c (Bld) [Mass fraction] 9.2 % High see below [facility] Lipid 1996 panelon Cholesterol [Mass/Vol] 147 mg/dL 0 - 1 99 mg/dL [facility] Comment on above: Age Desirable Borderline [...] dosing. Cholesterol in HDL [Mass/Vol] 37.7 mg/dL [facility] Comment on above: Age Very Low Low Normal High 0-19 Y < 35 < 40 40-45 ---- 20-24 Y ---- < 40 >45 ---- >24 Y ---- < 40 40-60 >60 Cholesterol in LDL [Mass/Vol] 48 mg/dL NINF - 99 mg/dL [facility] Comment on above: Near Borderline AGE Desirable Optimal High High Very High 0-19 Y 0 - 109 --- 110-129 >/= 130 ---- 20-24 Y 0 - 119 --- 120-159 >/= 160 ---- >24 Y 0 - 99 100-129 130-159 160-189 >/=190 Cholesterol in VLDL [Mass/Vol] 61 mg/dL High 0 - 40 mg/dL [facility] Cholesterol.total/Chol esterol in HDL [Mass ratio] 3.9 {ratio} [facility] Comment on above: Ref Values Desirable < 3.4 High Risk > 5.0 Non HDL Cholesterol 109 mg/dL 0 - 149 mg/dL [facility] Comment on above: Age Desirable Borderline High High Very High 0-19 Y 0 - 119 120 - 144 >/= 145 >/= 160 20-24 Y 0 - 149 150 - 189 >/= 190 ---- >24 Y 30 mg/dL above LDL Cholesterol goal Triglyceride [Mass/Vol] 305 mg/dL High 0 - 149 mg/dL [facility] Comment on above: Age Desirable Borderline [...] Interpretation and review of laboratory results Abnormal [facility] TSH with reflex to Free T4 i f abnormalon 03-06-2023 Interpretation and review of laboratory results Normal [facility] TSH Qn 1.63 m[IU]/L [facility] TSH testing is performed using different testing methodology at [facility] than at other [facility]. Direct result comparisons should only be made within the same method. [facility] Urate [Mass/Vol]on Interpretation and review of laboratory results Normal [facility] Uric acidon 03-06-2023 Urate [Mass/Vol] 5.4 mg/dL 4.0 - 7.5 mg/dL [facility] Comment on above: Venipuncture immedia tely after or during the administration of Metamizole may lead to falsely low results. Testing should be performed immediately prior to Metamizole dosing. Vitamin B12on 03-06-2023 Cobalamin (Vitamin B12) [Mass/Vol] 975 pg/mL High 211 - 911 pg/mL [facility] ENT Physician Progress N oteon 01-31-2023 [facility] ENT Physician Progress Note JEFFERSON CARCAMO :1960 [...] ankylosing spondylitis. He does not have a sign artist. His primary doctor recently retired. Review of [...] point may benefit from assessment by a sign artist. He also may benefit from physical therapy for his dizziness. Ordered: AMB Office/Outpt Est Pt Low MDM / 20-29 min significant, separately identifiable , 01/31/2023 15:50:00 EST, Ankylosing spondylitis / History of cholesteatoma / Dizziness AMB Remove impctd cerumen w/[place] [id number], 01/31/2023 15:50:00 EST, Ankylosing spondylitis / History of cholesteatoma / Dizziness, 1 2. History of cholesteatoma Z86.69 There is no evidence of recurrence. I did remove wax was right ear. Ordered: AMB Office/Outpt Est Pt Low MDM / 20-29 min significant, separately identifiable , 01/31/2023 15:50:00 EST, Ankylosing spondylitis / History of cholesteatoma / Dizziness AMB Remove impctd cerumen w/[place] [id number], 01/31/2023 15:50:00 EST, Ankylosing spondylitis / History [...] Dizziness AMB Remove impctd cerumen w/[place] [id number], 01/31/2023 15:50:00 EST, Ankylosing spondy (more content not included)... Normal [facility] Ambulatory Clinical Summaryo n 01-31-2023 Ambulatory [...] call to get immediate medical attention! Normal [facility] Comprehensive Intake - Texto n 01-31-2023 [...] in, 178 cm) Body Mass Index Measured Spanish : 35.15 kg/m2 BSA Spanish : 2.34 m2 Adriana Reynolds - 01/31/2023 [...] risk situation (congregated living, hemodialysis, infusion clinic, long term, assisted living, usp, homeless correction, etc.)? : No Adriana Reynolds 01/31/2023 15:40 [...] year Jose Reynoldshanie 01/31/2023 15:40 EST Normal [facility] HEMOGLOBIN A1Con 09-19-2022 Glucose [Mass/Vol] 214 mg/dL Normal [facility] [place] [place] Comment on above: Performed By: #### H BA1E #### [facility] [address] [place] [address] HbA1c (Bld) [Mass fraction] 9.1 % Abnormal [facility] Comment on above: Result Comment: Diag nosis of Diabetes-Adults Non-Diabetic: < or = 5.6% Increased risk for developing diabetes: 5.7-6.4% Diagnostic of diabetes: > or = 6.5% . Monitoring of Diabetes Age (y) Therapeutic Goal (%) Adults: >18 <7.0 Pediatrics: 13-18 <7.5 7-12 <8.0 0- 6 7.5-8.5 [employer] [place] [employer]. Diabetes Care 33(S1), Feb 2009. Performed By: #### H BA1E #### [facility] [address] [place] [address] CBC AND DIFFERENTIALon 09-18 % AUTOMATED IMMATURE GRAN 0.2 % Normal 0.0 - 0.9 [facility] Comment on above: Result Comment: Leesa ture Granulocyte Count (IG) includes promyelocytes, myelocytes and metamyelocytes but does not include bands. Percent differential counts (%) should be interpreted in the context of the absolute cell counts (cells/L). Performed By: #### C BCDF #### [address] [place] [address] Basophils (Bld) [#/Vol] 0.05 10*3/uL Normal 0.00 - 0.10 [facility] Comment on above: Performed By: #### C BCDF #### [address] [place] [address] Basophils/100 WBC (Bld) 0.3 % Normal 0.0 - 2.0 [facility] Comment on above: Performed By: #### C BCDF #### [address] [place] [address] Eosinophils (Bld) [#/Vol] 0.66 10*3/uL Normal 0.00 - 0.70 [facility] Comment on above: Performed By: #### C BCDF #### [address] [place] [address] Eosinophils/100 WBC (Bld) 4.5 % Normal 0.0 - 6.0 [facility] Comment on above: Performed By: #### C BCDF #### [address] [place] [address] Erythrocyte distribution width (RBC) [Ratio] 13.0 % Normal 11.5 - 14.5 [facility] Comment on above: Performed By: #### C BCDF #### [address] [place] [address] Hematocrit (Bld) [Volume fraction] 37.2 % Low 41.0 - 52.0 [facility] Comment on above: Performed By: #### C BCDF #### [address] [place] [address] Hemoglobin (Bld) [Mass/Vol] 12.6 g/dL Low 13.5 - 17.5 [facility] Comment on above: Performed By: #### C BCDF #### [address] [place] [address] Lymphocytes (Bld) [#/Vol] 5.07 10*3/uL High 1.20 - 4.80 [facility] Comment on above: Performed By: #### C BCDF #### [address] [place] [address] Lymphocytes/100 WBC (Bld) 34.9 % Normal 13.0 - 44.0 [facility] Comment on above: Performed By: #### C BCDF #### [address] [place] [address] MCHC (RBC) [Mass/Vol] 33.9 g/dL Normal 32.0 - 36.0 [facility] Comment on above: Performed By: #### C BCDF #### [address] [place] [address] MCV (RBC) [Entitic vol] 94 fL Normal 80 - 100 [facility] Comment on above: Performed By: #### C BCDF #### [address] [place] [address] Monocytes (Bld) [#/Vol] 1.06 10*3/uL High 0.10 - 1.00 [facility] Comment on above: Performed By: #### C BCDF #### [address] [place] [address] Monocytes/100 WBC (Bld) 7.3 % Normal 2.0 - 10.0 [facility] Comment on above: Performed By: #### C BCDF #### [address] [place] [address] Neutrophils (Bld) [#/Vol] 7.64 10*3/uL Normal 1.20 - 7.70 [facility] Comment on above: Performed By: #### C BCDF #### [address] [place] [address] Neutrophils/100 WBC (Bld) 52.8 % Normal 40.0 - 80.0 [facility] Comment on above: Performed By: #### C BCDF #### [address] [place] [address] Platelets (Bld) [#/Vol] 286 10*3/uL Normal 150 - 450 [facility] Comment on above: Performed By: #### C BCDF #### [address] [place] [address] RBC 3.95 x10E12/L Low 4.50 - 5.90 [facility] Comment on above: Performed By: #### C BCDF #### [address] [place] [address] WBC (Bld) [#/Vol] 14.5 10*3/uL High 4.4 - 11.3 [facility] Comment on above: Performed By: #### C BCDF #### [address] [place] [address] COMPREHENSIVE PANELon 2022 ALBUMIN Canceled Normal [facility] Comment on above: Order Comment: TEST COMPREHENSIVE PANEL WAS CANCELLED, 09/18/2022 16:25 [facility] Performed By: #### C MP #### [address] [place] [address] ALKALINE PHOSPHATASE Canceled Normal [facility] Comment on above: Order Comment: TEST COMPREHENSIVE PANEL WAS CANCELLED, 09/18/2022 16:25 [facility]ICATE DONE [facility]. Performed By: #### C MP #### [address] [place] [address] ALT Canceled Normal [facility] Comment on above: Order Comment: TEST COMPREHENSIVE PANEL WAS CANCELLED, 09/18/2022 16:25 [facility]ONE [facility]. Result Comment: Svetlana ents treated with Sulfasalazine may generate falsely decreased results for ALT. Performed By: #### C MP #### [address] [place] [address] ANION GAP Canceled Normal [facility] Comment on above: Order Comment: TEST COMPREHENSIVE PANEL WAS CANCELLED, 09/18/2022 16:25 [facility]ATE [facility]ONE [facility]. Performed By: #### C MP #### [address] [place] [address] AST Canceled Normal [facility] Comment on above: Order Comment: TEST COMPREHENSIVE PANEL WAS CANCELLED, 09/18/2022 16:25 [facility]ICATE DONE [facility]. Performed By: #### C MP #### [address] [place] [address] BICARBONATE Canceled Normal [facility] Comment on above: Order Comment: TEST COMPREHENSIVE PANEL WAS CANCELLED, 09/18/2022 16:25 [facility]ICATE DONE [facility]. Performed By: #### C MP #### [address] [place] [address] BILIRUBIN,TOTAL Canceled Normal [facility] Comment on above: Order Comment: TEST COMPREHENSIVE PANEL WAS CANCELLED, 09/18/2022 16:25 DUPLICATE DONE [facility]. Performed By: #### C MP #### [address] [place] [address] CALCIUM Canceled Normal [facility] Comment on above: Order Comment: TEST COMPREHENSIVE PANEL WAS CANCELLED, 09/18/2022 16:25 DUPLICATE DONE [facility]. Performed By: #### C MP #### [address] [place] [address] CHLORIDE Canceled Normal [facility] Comment on above: Order Comment: TEST COMPREHENSIVE PANEL WAS CANCELLED, 09/18/2022 16:25 DUPLICATE DONE [facility]. Performed By: #### C MP #### [address] [place] [address] CREATININE Canceled Normal [facility] Comment on above: Order Comment: TEST COMPREHENSIVE PANEL WAS CANCELLED, 09/18/2022 16:25 [facility]. Performed By: #### C MP #### [address] [place] [address] eGFR FEMALE Canceled Normal [facility] Comment on above: Order Comment: TEST COMPREHENSIVE PANEL WAS CANCELLED, 09/18/2022 16:25 [facility]ONE [facility]. Result Comment: CALC ULATIONS OF ESTIMATED GFR ARE PERFORMED USING THE 2020 CKD-EPI STUDY REFIT EQUATION WITHOUT THE RACE VARIABLE FOR THE IDMS-TRACEABLE CREATININE METHODS. https://jasn.asnjournals.org/content/early/ASN.32004 99057 Performed By: #### C MP #### [address] [place] [address] eGFR MALE Canceled Normal [facility] Comment on above: Order Comment: TEST COMPREHENSIVE PANEL WAS CANCELLED, 09/18/2022 16:25 [facility]. Result Comment: CALC ULATIONS OF ESTIMATED GFR ARE PERFORMED USING THE 2020 CKD-EPI STUDY REFIT EQUATION WITHOUT THE RACE VARIABLE FOR THE IDMS-TRACEABLE CREATININE METHODS. https://jasn.asnjournals.org/content/early/ASN.12153 57187 Performed By: #### C MP #### [address] [place] [address] GLUCOSE Canceled Normal [facility] Comment on above: Order Comment: TEST COMPREHENSIVE PANEL WAS CANCELLED, 09/18/2022 16:25 [facility]PLICATE DONE [facility]. Performed By: #### C MP #### [address] [place] [address] POTASSIUM Canceled [facility] Comment on above: Order Comment: TEST COMPREHENSIVE PANEL WAS CANCELLED, 09/18/2022 16:25 [facility]PLICATE DONE [facility]. Performed By: #### C MP #### [address] [place] [address] SODIUM Canceled Normal [facility] Comment on above: Order Comment: TEST COMPREHENSIVE PANEL WAS CANCELLED, 09/18/2022 16:25 [facility]PLICATE DONE [facility]. Performed By: #### C MP #### [address] [place] [address] TOTAL PROTEIN Canceled Normal [facility] Comment on above: Order Comment: TEST COMPREHENSIVE PANEL WAS CANCELLED, 09/18/2022 16:25 [facility]ATE [facility]ONE [facility]. Performed By: #### C MP #### [address] [place] [address] UREA NITROGEN Canceled Normal [facility] Comment on above: Order Comment: TEST COMPREHENSIVE PANEL WAS CANCELLED, 09/18/2022 16:25 [facility]ATE [facility]ONE [facility]. Performed By: #### C MP #### [address] [place] [address] Albumin [Mass/Vol] 4.3 g/dL Normal 3.4 - 5.0 [facility] [place] [place] Comment on above: Performed By: #### C MP #### [address] [place] [address] ALP [Catalytic activity/Vol] 68 U/L Normal 33 - 136 [facility] Comment on above: Performed By: #### C MP #### [address] [place] [address] ALT [Catalytic activity/Vol] 42 U/L Normal 10 - 52 [facility] Comment on above: Result Comment: Svetlana ents treated with Sulfasalazine may generate falsely decreased results for ALT. Performed By: #### C MP #### [address] [place] [address] Anion gap [Moles/Vol] 14 mmol/L Normal 10 - 20 [facility] Comment on above: Performed By: #### C MP #### [address] [place] [address] AST [Catalytic activity/Vol] 27 U/L Normal 9 - 39 [facility] Comment on above: Performed By: #### C MP #### [address] [place] [address] Bilirubin [Mass/Vol] 0.4 mg/dL Normal 0.0 - 1.2 [facility] Comment on above: Performed By: #### C MP #### [address] [place] [address] Calcium [Mass/Vol] 9.8 mg/dL Normal 8.6 - 10.3 [facility] [place] [place] Comment on above: Performed By: #### C MP #### [address] [place] [address] Chloride [Moles/Vol] 103 mmol/L Normal 98 - 107 [facility] Comment on above: Performed By: #### C MP #### [address] [place] [address] Creatinine [Mass/Vol] 1.68 mg/dL High 0.50 - 1.30 [facility] Comment on above: Performed By: #### C MP #### [address] [place] [address] GFR/1.73 sq M.predicted among non-blacks MDRD (S/P/Bld) [Vol rate/Area] 46 mL/min/{1.73_m2} Abnormal >90 [facility] Comment on above: Result Comment: CALC ULATIONS OF ESTIMATED GFR ARE PERFORMED USING THE 2020 CKD-EPI STUDY REFIT EQUATION WITHOUT THE RACE VARIABLE FOR THE IDMS-TRACEABLE CREATININE METHODS. https://jasn.asnjournals.org/content/early//ASN.40675 13690 Performed By: #### C MP #### [address] [place] [address] Glucose [Mass/Vol] 190 mg/dL High 74 - 99 [facility] [place] [place] Comment on above: Performed By: #### C MP #### [address] [place] [address] HCO3 (Bld) [Moles/Vol] 26 mmol/L Normal 21 - 32 [facility] Comment on above: Performed By: #### C MP #### [address] [place] [address] Potassium [Moles/Vol] 4.7 mmol/L Normal 3.5 - 5.3 [facility] Comment on above: Performed By: #### C MP #### [address] [place] [address] Protein [Mass/Vol] 7.2 g/dL Normal 6.4 - 8.2 [facility] [place] [place] Comment on above: Performed By: #### C MP #### [address] [place] [address] Sodium [Moles/Vol] 138 mmol/L Normal 136 - 145 [facility] [place] [place] Comment on above: Performed By: #### C MP #### [address] [place] [address] Urea nitrogen [Mass/Vol] 38 mg/dL High 6 - 23 [facility] Comment on above: Performed By: #### C MP #### [address] [place] [address] Complete Blood Count + Diffe joana 09-18-2022 Basophils/100 WBC (Bld) 0.3 % 0.0 - 2.0 [facility] DO Work Phone: Erythrocyte distribution width (RBC) [Ratio] 13.0 % See Below [facility] DO Work Phone: Comment on above: Reference Range: 11. 5 - 14.5 Hematocrit (Bld) [Volume fraction] 37.2 % below low threshold See Below [facility] DO Work Phone: Comment on above: Reference Range: 41. 0 - 52.0 Hemoglobin (Bld) [Mass/Vol] 12.6 g/dL below low threshold See Below [facility] DO Work Phone: Comment on above: Reference Range: 13. 5 - 17.5 Lymphocytes/100 WBC (Bld) 34.9 % See Below [facility] DO Work Phone: Comment on above: Reference Range: 13. 0 - 44.0 MCHC (RBC) [Mass/Vol] 33.9 g/dL See Below [facility] DO Work Phone: Comment on above: Reference Range: 32. 0 - 36.0 MCV (RBC) [Entitic vol] 94 fL 80 - 100 [facility] DO Work Phone: Monocytes/100 WBC (Bld) 7.3 % 2.0 - 10.0 [facility] DO Work Phone: Neutrophils/100 WBC (Bld) 52.8 % See Below [facility] DO Work Phone: Comment on above: Reference Range: 40. 0 - 80.0 Platelets (Bld) [#/Vol] 286 10*3/uL 150 - 450 [facility] DO Work Phone: RBC (Bld) [#/Vol] 3.95 {x10E12/L} below low threshold See Below [facility] DO Work Phone: Comment on above: Reference Range: 4.5 0 - 5.90 WBC (Bld) [#/Vol] 14.5 10*3/uL above high threshold 4.4 - 11.3 [facility] DO Work Phone: Complete Blood Count + Differential 0.05 {x10E9/L} See Below [facility] DO Work Phone: Comment on above: Reference Range: 0.0 0 - 0.10 Complete Blood Count + Differential 0.66 {x10E9/L} See Below [facility] DO Work Phone: Comment on above: Reference Range: 0.0 0 - 0.70 Complete Blood Count + Differential 1.06 {x10E9/L} above high threshold See Below [facility] DO Work Phone: Comment on above: Reference Range: 0.1 0 - 1.00 Complete Blood Count + Differential 5.07 {x10E9/L} above high threshold See Below [facility] DO Work Phone: Comment on above: Reference Range: 1.2 0 - 4.80 Complete Blood Count + Differential 7.64 {x10E9/L} See Below [facility] DO Work Phone: Comment on above: Reference Range: 1.2 0 - 7.70 Complete Blood Count + Differential 4.5 % 0.0 - 6.0 [facility] DO Work Phone: Complete Blood Count + Differential 0.2 % 0.0 - 0.9 [facility] DO Work Phone: Comment on above: Immature Granulocyte Count (IG) includes promyelocytes, myelocytes and metamyelocytes but does not include bands. Percent differential counts (%) should be interpreted in the context of the absolute cell counts (cells/L). FERRITINon 09-18-2022 FERRITIN 150 ug/L Normal 20 - 300 [facility] Comment on above: Performed By: #### F ERRI #### [facility] [address] [place] [address] Ferritin, Serumon 09-18-2022 Ferritin [Mass/Vol] 150 ug/L 20 - 300 [facility] DO Work Phone: Hemoglobin A1Con 09-18-2022 Glucose [Mass/Vol] 214 mg/dL [facility] DO Work Phone: HbA1c (Bld) [Mass fraction] 9.1 % Abnormal [facility] DO Work Phone: Comment on above: Diagnosis of Diabete s-Adults Non-Diabetic: < or = 5.6% Increased risk for developing diabetes: 5.7-6.4% Diagnostic of diabetes: > or = 6.5%. Monitoring of Diabetes Age (y) Therapeutic Goal (%) Adults: >18 <7.0 Pediatrics: 13-18 <7.5 7-12 <8.0 0- 6 7.5-8.5 [place] [employer]. Diabetes Care 33(S1), Feb 2009. IRON + TIBCon 09-18-2022 % SATURATION 34 % Normal 25 - 45 [facility] Comment on above: Performed By: #### I WALLY #### [place] [id number] Iron [Mass/Vol] 107 ug/dL Normal 35 - 150 [facility] Comment on above: Performed By: #### I MARILYNNT #### [place] [id number] TIBC 315 ug/dL Normal 240 - 445 [facility] Comment on above: Performed By: #### I MARILYNNT #### [address] [address] Laboratory - Chemistry and C hemistry - challengeon 09-18-2022 Albumin BCP dye [Mass/Vol] Canceled [facility] DO Work Phone: ALP [Catalytic activity/Vol] Canceled [facility] DO Work Phone: ALT With P-5'-P [Catalytic activity/Vol] Canceled [facility] DO Work Phone: Comment on above: Patients treated wit h Sulfasalazine may generate falsely decreased results for ALT. AST With P-5'-P [Catalytic activity/Vol] Canceled [facility] DO Work Phone: Bilirubin [Mass/Vol] Canceled [facility] DO Work Phone: Calcium [Mass/Vol] Canceled [facility] DO Work Phone: Chloride [Moles/Vol] Canceled -[facility] DO Work Phone: CO2 [Moles/Vol] Canceled [facility] DO Work Phone: Creatinine [Mass/Vol] Canceled [facility] DO Work Phone: Glucose [Mass/Vol] Canceled [facility] DO Work Phone: Potassium [Moles/Vol] Canceled [facility] DO Work Phone: Protein [Mass/Vol] Canceled [facility] DO Work Phone: Sodium [Moles/Vol] Canceled [facility] DO Work Phone: Urea nitrogen [Mass/Vol] Canceled [facility] DO Work Phone: Albumin BCP dye [Mass/Vol] 4.3 g/dL 3.4 - 5.0 [facility] DO Work Phone: ALP [Catalytic activity/Vol] 68 U/L 33 - 136 [facility] DO Work Phone: ALT With P-5'-P [Catalytic activity/Vol] 42 U/L 10 - 52 [facility] DO Work Phone: Comment on above: Patients treated wit h Sulfasalazine may generate falsely decreased results for ALT. Anion gap [Moles/Vol] 14 mmol/L 10 - 20 [facility] DO Work Phone: AST With P-5'-P [Catalytic activity/Vol] 27 U/L 9 - 39 [facility] DO Work Phone: Bilirubin [Mass/Vol] 0.4 mg/dL 0.0 - 1.2 [facility] DO Work Phone: Calcium [Mass/Vol] 9.8 mg/dL 8.6 - 10.3 [facility] DO Work Phone: Chloride [Moles/Vol] 103 mmol/L 98 - 107 [facility] DO Work Phone: CO2 [Moles/Vol] 26 mmol/L 21 - 32 [facility] DO Work Phone: Creatinine [Mass/Vol] 1.68 mg/dL above high threshold See Below [facility] DO Work Phone: Comment on above: Reference Range: 0.5 0 - 1.30 Glucose [Mass/Vol] 190 mg/dL above high threshold 74 - 99 [facility] DO Work Phone: Iron [Mass/Vol] 107 ug/dL 35 - 150 [facility] DO Work Phone: Iron binding capacity [Mass/Vol] 315 ug/dL 240 - 445 [facility] DO Work Phone: Potassium [Moles/Vol] 4.7 mmol/L 3.5 - 5.3 [facility] DO Work Phone: Protein [Mass/Vol] 7.2 g/dL 6.4 - 8.2 [facility] DO Work Phone: Sodium [Moles/Vol] 138 mmol/L 136 - 145 [facility] DO Work Phone: Urea nitrogen [Mass/Vol] 38 mg/dL above high threshold 6 - 23 [facility] [employer] Work Phone: No Panel Informationon 09-18 Canceled [facility] [employer] Work Phone: Comment on above: CALCULATIONS OF FARA MATED GFR ARE PERFORMED USING THE 2020 CKD-EPI STUDY REFIT EQUATION WITHOUT THE RACE VARIABLE FOR THE IDMS-TRACEABLE CREATININE METHODS.https://jasn.asnjournals.org/content/early/A SN.5895005253 34 % 25 - 45 [facility] [employer] Work Phone: 46 {mL/min/1.73m2} Abnormal >90 [facility] [employer] Work Phone: Comment on above: CALCULATIONS OF FARA MATED GFR ARE PERFORMED USING THE 2020 CKD-EPI STUDY REFIT EQUATION WITHOUT THE RACE VARIABLE FOR THE IDMS-TRACEABLE CREATININE METHODS.https://jasn.asnjournals.org/content//A SN.9265794512 Tobacco Screening.on 023 Adult depression screening assessment No [facility] [employer] Work Phone: Fall risk assessment a) No falls within the last year [facility] [employer] Work Phone: Tobacco use status CPHS b) No [facility] [employer] Work Phone: Prostate Spec.Ag, Screenon 0 06-26-2022 Prostate specific Ag [Mass/Vol] 2.45 ng/mL See Below [facility] [employer] Work Phone: Comment on above: Reference Range: 0.0 0 - 4.00The FDA requires that the method used for PSA assay be reported to the physician. Values obtained with different assay methods must not be used interchangeably. This test was performed at [facility] using the CrossCurrent PSA method, which is a sandwich immunoassay using chemiluminescence for quantitation. The assay is approvedfor measurement of prostate-specific antigen (PSA) in serum and may be used in conjunction with a digital rectalexamination in men 50 years and older as an aid in detection of prostate cancer. 9-Nmyte-rbyyeomyz inhibitors (e.g. Proscar, Finasteride, Avodart, Dutasteride and Veince) for the treatment of BPH have been shown to lower PSA levels by an average of 50% after 6 months of treatment. Laboratory - Molecular patho logyon 12-31-2021 Noninvasive colorectal cancer DNA and occult blood screening Edson (Stl) [Interp] Negative Negative [facility] DO Work Phone: Comment on above: [employer] (CLIA #:[id number])[address] [place] [address] FRANCISCO TA , Clinical Laboratory Medical DirectorNEGATIVE [...] (Kb Hinds al, N Engl J Med 2014;370(14):0861-7476) The normal value (reference range) for this assay is negative.COLOGUARD RE-SCREENING RECOMMENDATION: Periodic colorectal cancer screening is an important part of preventive healthcare for asymptomatic individuals at average risk for colorectal cancer. Following a negative Cologuard result, the [place] [employer] and U.S. Multi-Society Task Force screening guidelines recommend a Cologuard re-screening interval of 3 years. References: [place] [employer] Guideline for Colorectal Cancer Screening: https://www.cancer.org/cancer/cphpa-uepycp-bjnpzp/detection-robbi gnosis-staging/acs-recommendations.html.; Wing DK, Sal CR, Kisha BealK, Colorectal Cancer Screening: Recommendations for Physicians and Patients from the U.S. Multi-Society Task Force on Colorectal Cancer Screening , Am J Gastroenterology 2017; 112:6067-6555.TEST DESCRIPTION: Composite algorithmic analysis of stool DNA-biomarkers [...] (Kb Hinds al, N Engl J Med 2014;370(14):9716-3360.) Cologuard may produce a false negative or false positive result (no colorectal cancer or precancerous polyp present at colonoscopy follow up). A negative Cologuard test result does not guarantee the absence of CRC or advanced adenoma (pre-cancer). The current Cologuard screening interval is every 3 years. ([place] [employer] and U.S. Multi-Society Task Force). Cologuard performance data in a 10,000 patient pivotal study using colonoscopy as the reference method can be accessed at the following location: www.eReplicant.adSage/results. Additional description of the Cologuard test process, warnings and precautions can be found at www.Burst.it.com. Follow Up (Endocrinology)on 12-26-2021 Follow Up (Endocrinology) Diagnoses/Problems Assessed Diabetes mellitus, type 2 (250.00) (E11.9) Hyperlipidemia (272.4) (E78.5) Benign essential hypertension (401.1) (I10) Orders Diabetes mellitus, type 2 IO glucose, blood, finger stick via hand held monitor; Status:Complete; Done: 26Dec2021 04:28PM Performed:In Office; Due:[id number]; Last Updated By:Nadya Parada; 12/26/2021 4:28:58 PM;Ordered; For:Diabetes mellitus, type 2; Ordered By:Rudi Abdi; IO Hgb A1C; Status:Complete; Done: 26Dec2021 04:29PM Performed:In Office; Due:[id number]; Last Updated By:Nadya Parada; 12/26/2021 4:30:29 PM;Ordered; [...] HbA1c (Bld) [Mass fraction] 7.5 % 4.2-6.5% [facility] Phone: IO glucose, blood, finger st ick via hand held monitoron 12-26-2021 Glucose [Mass/Vol] 152 mg/dL [employer] Phone: Tobacco Screening.on 022 Adult depression screening assessment No [facility] Phone: Fall risk assessment a) No falls within the last year [facility] Phone: Tobacco use status CPHS b) No [facility] Phone: ALBUMIN, URINE SPOTon 2021 ALBUMIN,URINE 8.6 mg/L Normal Not Established [facility] Comment on above: Performed By: #### A LBSP #### [address] [address] ALBUMIN/CREAT RATIO 6.1 ug/mg sliver former Normal 0.0 - 30.0 [facility] Comment on above: Performed By: #### A LBSP #### [address] [address] CREATININE,URINE 140.0 mg/dL Normal 20.0 - 370.0 [facility] Comment on above: Performed By: #### A LBSP #### [address] [address] Laboratory - Chemistry and C hemistry - challengeon 12-20-2021 Albumin Ql (U) 8.6 mg/L See Below [employer] Work Phone: Comment on above: Reference Range: Not Established Albumin/Creatinine DL <= 20 mg/L (U) [Mass ratio] 6.1 {ug/mg_crt} 0.0 - 30.0 [employer] Work Phone: Creatinine (U) [Mass/Vol] 140.0 mg/dL See Below [facility] Phone: Comment on above: Reference Range: 20. [...] alcohol. Patient presenting wellness exam. 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 We will get the PSA after the [...] with above as is 5. Diabetes per technician submarine cable equipment questions concerns addressed proceed from there 'Scores and Scales' PHQ-9 [id number] 03:56PM PHQ-9 #10. If you checked off [...] Tobacco Screening.on Adult depression screening assessment No [facility] Work Phone: Fall risk assessment a) No falls within the last year [facility] Work Phone: Tobacco use status CPHS b) No [facility] Work Phone: Follow Up (Endocrinology)on 09-05-2021 Follow Up (Endocrinology) Diagnoses/Problems Assessed Diabetes mellitus, type 2 (250.00) (E11.9) Hyperlipidemia (272.4) (E78.5) Benign essential hypertension (401.1) (I10) Orders Diabetes mellitus, type 2 Albumin, Urine Spot; Status:Active; Requested for:[id number]; Perform:Lab Services - Lab To Draw (Non-Blood Test); Due:[id number];Ordered; For:Diabetes mellitus, type 2; Ordered By:Rudi Abdi; [...] HbA1c (Bld) [Mass fraction] 7.8 % 4.2-6.5% [facility] Phone: IO glucose, blood, finger st ick via hand held monitoron 09-05-2021 Glucose [Mass/Vol] 97 mg/dL [employer] Phone: Tobacco Screening.on 022 Adult depression screening assessment No [facility] Phone: Fall risk assessment a) No falls within the last year [facility] Phone: Tobacco use status CPHS b) No [facility] Work Phone: Tobacco Screening. Yes [facility] Work Phone: Office Visit (Family Melany johnson)on [...] history of kidney stones. Is followed by technician submarine cable equipment increase hemoglobin A1c noted PSA within normal [...] proceed from there. 'Scores and Scales' PHQ-9 [id number] 03:56PM PHQ-9 #10. If you checked off [...] of Chronic (more content not included)... Normal [facility] Tobacco Screening.on 022 Adult depression screening assessment No [facility] DO Work Phone: Fall risk assessment a) No falls within the last year [facility] DO Work Phone: Tobacco use status CPHS b) No [facility] DO Work Phone: Prostate Spec.Ag, Screenon 0 06-18-2021 Prostate specific Ag [Mass/Vol] 2.90 ng/mL See Below [facility] DO Work Phone: Comment on above: Reference Range: 0.0 0 - 4.00The FDA requires that the method used for PSA assay be reported to the physician. Values obtained with different assay methods must not be used interchangeably. This test was performed at [facility] using the CrossCurrent PSA method, which is a sandwich immunoassay using chemiluminescence for quantitation. The assay is approvedfor measurement of prostate-specific antigen (PSA) in serum and may be used in conjunction with a digital rectalexamination in men 50 years and older as an aid in detection of prostate cancer. 6-Wwdgp-lfjvrpvuu inhibitors (e.g. Proscar, Finasteride, Avodart, Dutasteride and [...] 2; BASIM = N; Verified Transmission to [employer]; Last Updated By: [employer]; 05/23/2021 4:27:29 PM SocHx: Never a smoker [...] HbA1c (Bld) [Mass fraction] 7.9 % 4.2-6.5% [employer] Work Phone: IO glucose, blood, finger st ick via hand held monitoron 05-23-2021 Glucose [Mass/Vol] 130 mg/dL [employer] Work Phone: Tobacco Screening.on Adult depression screening assessment No [facility] Phone: Fall risk assessment a) No falls within the last year [facility] Phone: Tobacco use status CPHS b) No [facility] Phone: Established Visit (Orthopaed ic Surgery)on 04-13-2021 [...] Ludwig's portion of this dictation. In a taxj-lh-wgfk encounter, I performed a history and physical [...] we may consider an MRI. 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 Normal cicayda No Panel Informationon 03-02 Normal [facility] Work Phone: SPINE, LUMBOSACRAL MIN 4 VIE WSon 03-02-2021 SPINE, LUMBOSACRAL MIN 4 VIEWS Patient Name: JEFFERSON CARCAMO STUDY: SPINE, LUMBOSACRAL MIN 4 VIEWS; ; 03/02/2021 4:22 pm INDICATION: pain M54.50: Low back pain. ACCESSION NUMBER(S): [id number] ORDERING CLINICIAN: MARCO LUDWIG FINDINGS: AP lateral [...] Electronically signed by: MARCO LUDWIG MD Normal [facility] Tobacco Screening.on Fall risk assessment a) No falls within the last year -[facility] DO Work Phone: Tobacco use status CPHS b) No -[facility] DO Work Phone: Tobacco Screening. 0-Not at all [facility] DO Work Phone: IO Hgb A1Con 11-22-2020 HbA1c (Bld) [Mass fraction] 7.9 % 4.4-6.4% [employer] Work Phone: IO glucose, blood, finger st ick via hand held monitoron 11-22-2020 Glucose [Mass/Vol] 164 mg/dL [facility] Work Phone: Tobacco Screening.on Fall risk assessment a) No falls within the last year [facility] Work Phone: Tobacco use status CPHS b) No [facility] Work Phone: Outside Radiology Readon Outside Radiology Read This is a prelimi nary report only. This report will be final only after practitioner review and authentication has occurred. NAME: JEFFERSON CARCAMO MR#: [id number] DATE OF STUDY: 04/19/2020 RADIOLOGY REASON FOR [...] status post left total hip replacement. DINESH HUFFMAN MD Juan [facility][id number] 043 [facility] PT NAME: JEFFERSON CARCAMO MR#: [id number] [address] [place], [place] [address] ACCT: [id number] : 64 DOWNTIME RADIOLGY REPORT ADM DATE: Normal [facility] Anesthesia Noteon 03-24-2020 Anesthesia Note [facility] Patient: JEFFERSON CARCAMO [address] [place] [id number] MR#: [id number] ANESTHESIA NOTE : Service Date: 03/24/20 0806 [...] Electronically Signed eSign Date and Time ClarenceKayleigh BED TEACHER-PUBLIC HEALTH VETERINARIAN 03/24/20 0807 Ariel De La Garza MD Normal [facility] BASIC MET PANELon 03-24-2020 Anion gap [Moles/Vol] 10 mmol/L Normal 6-18 [facility] Comment on above: Order Comment: CONSE RVATION Performed By: #### L 500.31350, L500.11799, L500.24214 ####Test performed at: [address] [address] Calcium [Mass/Vol] 8.2 mg/dL Low 8.5-10.1 [facility] Comment on above: Order Comment: CONSE RVATION Performed By: #### L 500.78790, L500.96072, L500.46780 ####Test performed at: [address] [address] Chloride [Moles/Vol] 103 mmol/L Normal 98-107 [facility] Comment on above: Order Comment: CONSE RVATION Performed By: #### L 500.94961, L500.00492, L500.39641 ####Test performed at: [address] [address] CO2 [Moles/Vol] 29 mmol/L Normal 21-32 [facility] Comment on above: Order Comment: CONSE RVATION Performed By: #### L 500.53597, L500.78776, L500.06228 ####Test performed at: [address] [address] Creatinine [Mass/Vol] 1.380 mg/dL High 0.700-1.300 [facility] Comment on above: Order Comment: CONSE RVATION Performed By: #### L 500.18447, L500.92818, L500.90284 ####Test performed at: [address] [address] Glucose [Mass/Vol] 119 mg/dL High 70-99 [facility] Comment on above: Order Comment: CONSE RVATION Result Comment: Fast ing GLUCOSE reference range has been updated per (ADA) [place] [employer]'s recommendation. 05/12/2018 Performed By: #### L 500.04877, L500.30320, L500.15965 ####Test performed at: [address] [address] OSM 289 mosm/kg Normal 270-300 [facility] Comment on above: Order Comment: CONSE RVATION Performed By: #### L 500.08216, L500.77507, L500.23877 ####Test performed at: [address] [address] Potassium [Moles/Vol] 4.7 mmol/L Normal 3.5-5.1 [facility] Comment on above: Order Comment: CONSE RVATION Performed By: #### L 500.17072, L500.75176, L500.35076 ####Test performed at: [address] [address] Sodium [Moles/Vol] 137 mmol/L Normal 136-145 [facility] Comment on above: Order Comment: CONSE RVATION Performed By: #### L 500.08820, L500.79659, L500.82106 ####Test performed at: [address] [place], [place] [address] Urea nitrogen [Mass/Vol] 24 mg/dL High 7-18 [facility] Comment on above: Order Comment: CONSE RVATION Performed By: #### L 500.00576, L500.32164, L500.58996 ####Test performed at: [address] [address] CBC W/DIFFon 03-24-2020 Erythrocyte distribution width (RBC) [Ratio] 12.7 % Normal 11.5-14.5 [facility] Comment on above: Order Comment: Comme nts To Phleb: pre-op in PAT Performed By: #### L 200.80029 #### Test performed at: [address] [address] Hematocrit (Bld) [Volume fraction] 33.1 % Low 39.0-55.0 [facility] Comment on above: Order Comment: Comme nts To Phleb: pre-op in PAT Performed By: #### L 200.13262 #### Test performed at: [address] [address] Hemoglobin (Bld) [Mass/Vol] 11.0 g/dL Low 14.0-16.5 [facility] Comment on above: Order Comment: Comme nts To Phleb: pre-op in PAT Performed By: #### L 200.47392 #### Test performed at: [address] [address] MCH (RBC) [Entitic mass] 31.5 pg Normal 25.4-34.6 [facility] Comment on above: Order Comment: Comme nts To Phleb: pre-op in PAT Performed By: #### L 200.10046 #### Test performed at: [address] [address] MCHC (RBC) [Mass/Vol] 33.2 g/dL Normal 31.5-36.5 [facility] Comment on above: Order Comment: Comme nts To Phleb: pre-op in PAT Performed By: #### L 200.65599 #### Test performed at: [address] [address] MCV (RBC) [Entitic vol] 94.8 fL Normal 80.0-100.0 [facility] Comment on above: Order Comment: Comme nts To Phleb: pre-op in PAT Performed By: #### L 200.85274 #### Test performed at: [address] [address] NRBC # 0.000 K/uL Normal 0-0.012 [facility] Comment on above: Order Comment: Comme nts To Phleb: pre-op in PAT Performed By: #### L 200.20754 #### Test performed at: [place] [address] NRBC % 0.0 /100 WBC Normal 0-0.2 [facility] Comment on above: Order Comment: Comme nts To Phleb: pre-op in PAT Performed By: #### L 200.54326 #### Test performed at: [address] [address] Platelet mean volume (Bld) [Entitic vol] 10.5 fL Normal 8.7-12.4 [facility] Comment on above: Order Comment: Comme nts To Phleb: pre-op in PAT Performed By: #### L 200.33208 #### Test performed at: [address] [address] Platelets (Bld) [#/Vol] 242 10*3/uL Normal 140-440 [facility] Comment on above: Order Comment: Comme nts To Phleb: pre-op in PAT Performed By: #### L 200.16106 #### Test performed at: [address] [address] RBC (Bld) [#/Vol] 3.49 10*6/uL Low 3.5-5.5 [facility] Comment on above: Order Comment: Comme nts To Phleb: pre-op in PAT Performed By: #### L 200.69677 #### Test performed at: [address] [address] WBC (Bld) [#/Vol] 18.8 10*3/uL High 3.9-11.0 [facility] Comment on above: Order Comment: Comme nts To Phleb: pre-op in PAT Performed By: #### L 200.19283 #### Test performed at: [address] [address] Erythrocyte distribution width (RBC) [Ratio] 12.6 % Normal 11.5-14.5 [facility] Comment on above: Order Comment: CONSE RVATION Performed By: #### L 200.47602, L200.68595 ####Test performed at: [address] [address] Hematocrit (Bld) [Volume fraction] 29.4 % Low 39.0-55.0 [facility] Comment on above: Order Comment: CONSE RVATION Performed By: #### L 200.94200, L200.98048 ####Test performed at: [address] [address] Hemoglobin (Bld) [Mass/Vol] 9.7 g/dL Low 14.0-16.5 [facility] Comment on above: Order Comment: CONSE RVATION Result Comment: Delt a: 13.5 on 01/26/20-1526 Performed By: #### L 200.62292, L200.41909 ####Test performed at: [address] [address] MCH (RBC) [Entitic mass] 31.2 pg Normal 25.4-34.6 [facility] Comment on above: Order Comment: CONSE RVATION Performed By: #### L 200.60922, L200.48470 ####Test performed at: [address] [address] MCHC (RBC) [Mass/Vol] 33.0 g/dL Normal 31.5-36.5 [facility] Comment on above: Order Comment: CONSE RVATION Performed By: #### L 200.53110, L200.53825 ####Test performed at: [address] [address] MCV (RBC) [Entitic vol] 94.5 fL Normal 80.0-100.0 [facility] Comment on above: Order Comment: CONSE RVATION Performed By: #### L 200.09288, L200.14976 ####Test performed at: [place] [address] NRBC # 0.000 K/uL Normal 0-0.012 [facility] Comment on above: Order Comment: CONSE RVATION Performed By: #### L 200.26501, L200.78608 ####Test performed at: [place] [address] NRBC % 0.0 /100 WBC Normal 0-0.2 [facility] Comment on above: Order Comment: CONSE RVATION Performed By: #### L 200.89039, L200.37249 ####Test performed at: [address] [address] Platelet mean volume (Bld) [Entitic vol] 10.6 fL Normal 8.7-12.4 [facility] Comment on above: Order Comment: CONSE RVATION Performed By: #### L 200.53002, L200.48515 ####Test performed at: [address] [address] Platelets (Bld) [#/Vol] 210 10*3/uL Normal 140-440 [facility] Comment on above: Order Comment: CONSE RVATION Performed By: #### L 200.70086, L200.70356 ####Test performed at: [address] [address] RBC (Bld) [#/Vol] 3.11 10*6/uL Low 3.5-5.5 [facility] Comment on above: Order Comment: CONSE RVATION Performed By: #### L 200.12757, L200.93286 ####Test performed at: [address] [address] WBC (Bld) [#/Vol] 16.9 10*3/uL High 3.9-11.0 [facility] Comment on above: Order Comment: CONSE RVATION Performed By: #### L 200.89299, L200.05194 ####Test performed at: [address] [address] EST. CREAT CLRon 03-24-2020 Creatinine [Mass/Vol] 95.229 ML/MIN Normal [facility] Comment on above: Order Comment: Comme nts To Phleb: pre-op in PAT Result Comment: This result is an ESTIMATED blood creatinine clearance value which is derived from the patient age, sex, weight, and previous blood creatinine result. Performed By: #### L 200.35327 #### Test performed at: [place] [id number] GFR ESTIMATEon 03-24-2020 IF AMER > 60 Normal > 60 [facility] Comment on above: Order Comment: Comme [...] for clinical interpretation. Performed By: #### L 200.47650 #### Test performed at: [place] [address] IF non-AFR AMER 53 Low > 60 [facility] Comment on above: Order Comment: Comme nts To Phleb: pre-op in PAT Performed By: #### L 200.08727 #### Test performed at: [place] [address] GLUCOSE METERon 03-24-2020 Glucose [Mass/Vol] 262 mg/dL High 70-99 [facility] Comment on above: Order Comment: Comme nts To Phleb: pre-op in PAT Result Comment: Fast ing GLUCOSE reference range has been updated per (ADA) [place] [employer]'s recommendation. 05/12/2018 Performed By: #### L 200.59244 #### Test performed at: [place] [address] Glucose [Mass/Vol] 146 mg/dL High 70-99 [facility] Comment on above: Order Comment: Comme nts To Phleb: pre-op in PAT Result Comment: Fast ing GLUCOSE reference range has been updated per (ADA) [place] [employer]'s recommendation. 05/12/2018 Performed By: #### L 200.77865 #### Test performed at: [place] [address] Internal Med Progress Noteon 03-24-2020 Internal Med Progress Note [facility] Patient: JEFFERSON CARCAMO [address] [place] [address] MR#: [id number] PROGRESS NOTE - Internal Medicine : 64 [...] Other Physical Findings No drain, no shin Assessment/Plan-Leasing Associate al Med Med Reasons/Tx for Con't stay [...] leukemia under remission - As per patient school admissions representative suggested monitoring only #h/o DVT - Denies [...] RES, Katarzyn a MD 03/26/20 1229 Normal [facility] MANUAL DIFFon 03-24-2020 BAND 12 % High 0-5 [facility] Comment on above: Order Comment: Comme nts To Phleb: pre-op in PAT Performed By: #### L 200.86504 #### Test performed at: [address] [address] Lymphocytes/100 WBC (Bld) 16 % Low 20-50 [facility] Comment on above: Order Comment: Comme nts To Phleb: pre-op in PAT Performed By: #### L 200.61697 #### Test performed at: [address] [address] MONOCYTE 6 % Normal 2-12 [facility] Comment on above: Order Comment: Comme nts To Phleb: pre-op in PAT Performed By: #### L 200.00030 #### Test performed at: [address] [address] NEUTROPHIL 66 % Normal 40-80 [facility] Comment on above: Order Comment: Comme nts To Phleb: pre-op in PAT Performed By: #### L 200.67579 #### Test performed at: [address] [address] Platelets (Bld) [#/Vol] ADEQ Normal [facility] Comment on above: Order Comment: Comme nts To Phleb: pre-op in PAT Performed By: #### L 200.53258 #### Test performed at: [address] [address] POLYCHROMASIA OCC Normal [facility] Comment on above: Order Comment: Comme nts To Phleb: pre-op in PAT Performed By: #### L 200.69420 #### Test performed at: [address] [address] RLYMPH OCC Normal [facility] Comment on above: Order Comment: Comme nts To Phleb: pre-op in PAT Performed By: #### L 200.33617 #### Test performed at: [address] [address] TOTAL CELLS 100 #CELLS Normal [facility] Comment on above: Order Comment: Comme nts To Phleb: pre-op in PAT Performed By: #### L 200.11210 #### Test performed at: [address] [address] BAND 19 % High 0-5 [facility] Comment on above: Order Comment: CONSE RVATION Performed By: #### L 200.74711, L200.26834 ####Test performed at: [address] [address] Basophils/100 WBC (Bld) 1 % Normal 0-1 [facility] Comment on above: Order Comment: CONSE RVATION Performed By: #### L 200.91534, L200.03672 ####Test performed at: [address] [address] Lymphocytes/100 WBC (Bld) 21 % Normal 20-50 [facility] Comment on above: Order Comment: CONSE RVATION Performed By: #### L 200.41269, L200.55288 ####Test performed at: [address] [address] MONOCYTE 6 % Normal 2-12 [facility] Comment on above: Order Comment: CONSE RVATION Performed By: #### L 200.92472, L200.74501 ####Test performed at: [address] [address] NEUTROPHIL 53 % Normal 40-80 [facility] Comment on above: Order Comment: CONSE RVATION Performed By: #### L 200.88681, L200.11384 ####Test performed at: [address] [address] Platelets (Bld) [#/Vol] ADEQ Normal [facility] Comment on above: Order Comment: CONSE RVATION Performed By: #### L 200.96562, L200.80467 ####Test performed at: [address] [address] POLYCHROMASIA OCC Normal [facility] Comment on above: Order Comment: CONSE RVATION Performed By: #### L 200.42297, L200.55155 ####Test performed at: [address] [address] TOTAL CELLS 100 #CELLS Normal [facility] Comment on above: Order Comment: CONSE RVATION Performed By: #### L 200.25431, L200.41849 ####Test performed at: [address] [address] OT Therapy Recommendationson 03-24-2020 OT Therapy Recommendations [facility] Patient: JEFFERSON CARCAMO [address] [place] [address] MR#: [id number] OT THERAPY RECOMMENDATIONS : 64 Service Date: 03/24/20 1151 See Addendum Verdana 4d Therapy Recommendations Therapy Recommendations Recommendations HOME WITH FAMILY ASSISTANCE ADDENDUM: CRISTIANA COPPOLA on 03/24/20 at 1153 Addendum Add AND [facility] SERVICES Electronically Signed eSign Date and Time Cristiana Coppola OT 03/24/20 1153 Normal [facility] Orthopedic Progress Noteon 0 03-24-2020 Orthopedic Progress Note [facility] Patient: JEFFERSON CARCAMO [address] [place] [address] MR#: [id number] PROGRESS NOTE - Orthopedic : 64 Service [...] Med Reasons/Tx for Con't stay [facility] Assessment plan dc home [facility] pain medicaiton is dvt prophilaxis mobilize cryotherapy Electronically Signed eSign Date and Time SERGIO NGO 03/24/20 1237 Dinesh Huffman MD Normal [facility] PORTABLE CHESTon 03-24-2020 PORTABLE CHEST STUDY: PORTABLE CHEST; 03/24/2020 12:01 pm INDICATION: Leukocytosis. COMPARISON: 01/26/2020 ACCESSION NUMBER(S): [id number] ORDERING CLINICIAN: Mayur Leo FINDINGS: Unchanged blunting of the right costophrenic angle suggestive of scarring. Right pleural calcifications are again noted. No definite new infiltrate or pleural effusion. Unremarkable cardiomediastinal silhouette. No pulmonary vascular congestion. IMPRESSION: No new active disease in the chest. Normal [facility] Transfer From ([facility])on 03-24-2020 Transfer From ([facility]) From: [facility] Patient: JEFFERSON CARCAMO [address] [place] [address] Birthdate: [birth year] Age: 59 Attending Physician: Dinesh [...] RESISTANT ORGANISM No Date of Influenza Vaccine 57568 Physician Orders Prescriptions/Discharg e Meds Continue taking [...] reflection of the individuals condition. HOME WITH [facility] Electronically Signed eSign Date and Time SERGIO NGO 03/24/20 1442 Dinesh Huffman MD Normal [facility] z OT Inpatient Evaluationon 03-24-2020 z OT Inpatient Evaluation [facility] Patient: JEFFERSON CARCAMO [address] [place] [address] MR#: [id number] OT INPATIENT EVALUATION : 64 Inpatient OT HPI Date of Service 03/24/20 Time In: 0845 Time Out: 15 Total Treatment Time (Mins) 30 Visit Reason OTHER SECONDARY OA BOTH HIPS Surgery Type/Date POD#1Surgery Type: L ИВАН Anterior Approach Referral Date 03/23/20 Tx Diagnosis: PAIN IN L LEG Insurance Name [facility] Hospital Course Pt is a 59 year [...] Toilet, Long Handled Sponge, Long Shoe Horn, Half Section Ironer, Shower Chair Bedroom Location 1st Floor Bathroom Location 1st Floor Shower Tub Tasks Prior to Admission Laundry, Cooking, Cleaning, Shopping, Driving Transportation Method Patient Drives, Family Drives Functional Level OIL AND GAS PRINCIPAL PT WAS MODIND WITH ADLS AND IADLS. [...] Time CherylCristiana chavarria OT 03/24/20 1150 Normal [facility] z PT Inpatient Progress Note on 03-24-2020 z PT Inpatient Progress Note [facility] Patient: JEFFERSON CARCAMO [address] [place] [address] MR#: [id number] PT INPATIENT PROGRESS NOTE : 64 Service [...] Signed eSign Date and Time Jaja Pizano OIL AND GAS PRINCIPAL 03/24/20 1417 Adrian Andino PT Normal [facility] GLUCOSE METERon 03-23-2020 Glucose [Mass/Vol] 224 mg/dL High 70-99 [facility] Comment on above: Order Comment: CONSE RVATION Result Comment: Fast ing GLUCOSE reference range has been updated per (ADA) [place] [employer]'s recommendation. 05/12/2018 Performed By: #### L 500.76750 ####Test performed at: [place] [address] Glucose [Mass/Vol] 214 mg/dL High 70-99 [facility] Comment on above: Order Comment: CONSE RVATION Result Comment: Fast ing GLUCOSE reference range has been updated per (ADA) [place] [employer]'s recommendation. 05/12/2018 Performed By: #### L 500.93723 ####Test performed at: [place] [address] Glucose [Mass/Vol] 170 mg/dL High 70-99 [facility] Comment on above: Order Comment: CONSE RVATION Result Comment: Fast ing GLUCOSE reference range has been updated per (ADA) [place] [employer]'s recommendation. 05/12/2018 Performed By: #### L 500.89858 #### Test performed at: [place] [address] Internal Medicine Consultati onon 03-23-2020 Internal Medicine Consultation [facility] Patient: JEFFERSON CARCAMO [address] [place] [address] MR#: [id number] CONSULTATION - Internal Medicine : 64 Service [...] III,Raffy Res 03/24/20 1247 Camille Jones MD [facility] OPERATIVE REPORTon OPERATIVE REPORT NAME: JEFFERSON CARCAMO MR#: [id number] SURGEON: Dinesh Huffman MD DATE OF SURGERY: 03/23/2020 OPERATIVE REPORT PREOPERATIVE DIAGNOSIS: Severe arthritic involvement, left hip joint. Patient with underlying ankylosing spondylitis. POSTOPERATIVE DIAGNOSIS: Severe arthritic involvement, left hip joint. Patient with underlying ankylosing spondylitis. OPERATION PERFORMED: Left total hip replacement, uncemented, direct anterior approach. BUTTON BROACHER: Kelby Bishop. ANESTHESIA: General. FINDINGS: Patient is [...] osteopenic. Replacement was performed using components from [employer]. The 52 mm outer diameter shell was [...] anesthesia and patient positioned supine on the [place] table, the left hip was prepped and draped for total hip replacement through a direct anterior approach. A formal time-out was performed and agreed to by all parties. Once agreed to, the hip [facility] PT NAME: JEFFERSON CARCAMO MR#: [id number] [address] [place] [address] ACCT: [id number] : 64 OPERATIVE REPORT was approached starting [...] brought out of adduction and extension with [facility] PT NAME: JEFFERSON CARCAMO MR#: [id number] [address] [place] [address] ACCT: [id number] : 64 OPERATIVE REPORT traction and internal [...] tolerated the procedure well. DINESH HUFFMAN MD [facility][id number] E/S: Dinesh Huffman MD 03/24/20 1033 Electronically Signed [facility] PT NAME: JEFFERSON CARCAMO MR#: [id number] [address] [place] [address] ACCT: [id number] : 64 OPERATIVE REPORT Normal [facility] PELVIS 1 OR 2 VIEWSon 2020 PELVIS 1 OR 2 VIEWS STUDY: PELVIS 1 OR 2 VIEWS; 03/23/2020 4:35 pm INDICATION: S/P LEFT TOTAL HIP REPLACEMENT. COMPARISON: None. ACCESSION NUMBER(S): [id number] ORDERING CLINICIAN: Annie Aguilar FINDINGS: Left hip arthroplasty in anatomic alignment. Postoperative soft tissue gas. Upper pelvis not imaged. IMPRESSION: New left hip arthroplasty in anatomic alignment. Normal [facility] PT Therapy Recommendationson 03-23-2020 aPTT Coag (Nicole) [Time] [facility] Patient: JEFFERSON CARCAMO [address] [place], [place] [id number] MR#: [id number] PT THERAPY RECOMMENDATIONS : 64 Service Date: 03/23/201846 Therapy Recommendations Therapy Recommendations Recommendations Physical therapy evaluation completed. Will follow per acute PT plan of care BID, PRN. Rec D/C HHPT. VILMA Mendez Electronically Signed eSign Date and Time Antony Maynard PT Student 03/23/201846 Adrian Andino PT 03/23/201847 [facility] Primary Residenton Primary Resident [facility] Pt Name: JEFFERSON CARCAMO MR#: [id number] [address] [place] [address] ACCT: [id number] [place] [address] : 64 Service Date: 03/23/20 1626 Primary Resident/Call Primary Resident: Ngoc Leo After Hours Call: [phone] Red Team Electronically Signed eSign Date and Time Basil ARENAS,Raffy Res 03/23/20 162 Normal [facility] SURGon 03-23-2020 SURG [facility] Comment on above: Result Comment: RUN DATE: 03/28/20 [facility] LAB *LIVE* PAGE 1RUN TIME: 1541 Specimen InquiryRUN USER: Weiju Name: JEFFERSON CARCAMO : 64 Sex:M Attend Dr: Dinesh Huffman [facility]#: [id number] Unit#: [id number] Status: DIS IN Location: Anthony GDonovan618-01 Received: 03/24/203 Status: CLAUDIA Santoro#: [id number]#: [id number] Collected: 03/23/20- [facility] Dr: Dinesh Huffman MDTISSUES: A. LEFT HIP BONE & TISSUE MICROSCOPIC EXAM: Two H&E stained slides including sections of decalcified tissue are examined. DIAGNOSIS: BONE AND TISSUE FROM LEFT HIP, TOTAL HIP REPLACEMENT: - DEGENERATIVE JOINT DISEASE Signed Signature on File TOMA STRINGER 03/28/20 1541 [facility] Name: JEFFERSON CARCAMO [facility] Hosp Num: [id number] A [employer] of Age / Sex: 59/M [facility] Physician: Dinesh Huffman MD [address] [place] [address] Location: SPINE/ORTHO UNIT END OF REPORT Performed By: #### L 500.33694, L500.05044 #### Test performed at: [address] 03-23-2020 ABO and Rh group Nom (Bld) A POSITIVE Normal [facility] Comment on above: Order Comment: CONSE RVATION CBN: NO [place]: MAIN Transfusion Status: CONSERVATION Blood Bank service requested: TYPE AND SCREEN Comments To Phleb: PATIENT IN SDS Performed By: #### B 100.0200 #### Test performed at: [place] [address] [place] [address] z PT Inpatient Evaluationon 03-23-2020 z PT Inpatient Evaluation [facility] Patient: JEFFERSON CARCAMO [address] [place] [id number] MR#: [id number] PT INPATIENT EVALUATION : 64 Service Date: 03/23/201827 Inpatient PT HPI Date of Service 03/23/20 Time In: 180 Time Out: 1824 Total Treatment Time (Mins) 16 Room Number 618 Visit Reason OTHER SECONDARY OA BOTH HIPS Surgery Type: L ИВАН Anterior Approach Surgery Date: 03/23/20 Referral Date 03/23/20 Tx Diagnosis: UNSTEADINESS ON FEET Insurance Name [facility] Hospital Course Pt is a 59 year [...] States ground level setup. 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 Objective Pain Pain Scale 0 [...] 1847 Adrian Andino PT 03/23/20 1850 Normal [facility] CORONAVIRUSon 03-20-2020 CORONAVIRUS Methodology: PCR Negative results [...] on the FDA website: https://www.fda.gov/Me dicalDevices/Safety/ EmergencySituations/ a316320.htm COVID-19 Negative for COVID-19 (SARS-CoV-2 RNA) Normal [facility] Comment on above: Order Comment: CBN: YES [place]: MAIN COVID Testing: PRE-OP/PROCEDURE SCREEN Comment: 03/23 AGE at Spec LIAM 59 Report age at specimen LIAM? Y First test: UNKNOWN Employed in Healthcare: NO Symptomatic as defined by CDC: NO Hospitalized for COVID-19? NO ICU: NO Resident in a Congregated Care Setting: NO Order Date: 03/20/20 : Not Performed By: #### M 400.28459 #### Test performed at: [place] [address] GLYCO HEMOon 01-27-2020 HbA1c (Bld) [Mass fraction] 6.9 % Normal [facility] Comment on above: Order Comment: Comme nts To Phleb: pre-op in PAT Result Comment: Gabrielle geller Diagnosis HbA1c (%) --------- Diabetic > 6.4 Prediabetes 5.7-6.4 Normal < 5.7 Performed By: #### L 500.35971 #### Test performed at: [place] [address] CBC W/DIFFon 01-26-2020 BASO ABS 0.1 K/uL Normal 0.0-0.2 [facility] Comment on above: Order Comment: Comme nts To Phleb: pre-op in PAT Performed By: #### L 200.50421 #### Test performed at: [place] [address] Basophils/100 WBC (Bld) 0.6 % Normal [facility] Comment on above: Order Comment: Comme nts To Phleb: pre-op in PAT Performed By: #### L 200.55049 #### Test performed at: [place] [address] EOS ABS 0.3 K/uL Normal 0.0-0.5 [facility] Comment on above: Order Comment: Comme nts To Phleb: pre-op in PAT Performed By: #### L 200.48512 #### Test performed at: [address] [address] Eosinophils/100 WBC (Bld) 2.4 % Normal [facility] Comment on above: Order Comment: Comme nts To Phleb: pre-op in PAT Performed By: #### L 200.57178 #### Test performed at: [address] [address] Erythrocyte distribution width (RBC) [Ratio] 12.8 % Normal 11.5-14.5 [facility] Comment on above: Order Comment: Comme nts To Phleb: pre-op in PAT Performed By: #### L 200.17171 #### Test performed at: [address] [address] Hematocrit (Bld) [Volume fraction] 40.5 % Normal 39.0-55.0 [facility] Comment on above: Order Comment: Comme nts To Phleb: pre-op in PAT Performed By: #### L 200.45070 #### Test performed at: [address] [address] Hemoglobin (Bld) [Mass/Vol] 13.5 g/dL Low 14.0-16.5 [facility] Comment on above: Order Comment: Comme nts To Phleb: pre-op in PAT Performed By: #### L 200.56268 #### Test performed at: [address] [address] IG % 0.3 % Normal [facility] Comment on above: Order Comment: Comme nts To Phleb: pre-op in PAT Performed By: #### L 200.37633 #### Test performed at: [address] [place] [address] IG ABS 0.04 K/uL Normal 0-0.05 [facility] Comment on above: Order Comment: Comme nts To Phleb: pre-op in PAT Performed By: #### L 200.03279 #### Test performed at: [address] [address] Lymphocytes (Bld) [#/Vol] 3.6 10*3/uL High 1.2-3.5 [facility] Comment on above: Order Comment: Comme nts To Phleb: pre-op in PAT Performed By: #### L 200.48150 #### Test performed at: [address] [address] Lymphocytes/100 WBC (Bld) 25.6 % Normal [facility] Comment on above: Order Comment: Comme nts To Phleb: pre-op in PAT Performed By: #### L 200.27131 #### Test performed at: [address] [address] MCH (RBC) [Entitic mass] 31.5 pg Normal 25.4-34.6 [facility] Comment on above: Order Comment: Comme nts To Phleb: pre-op in PAT Performed By: #### L 200.55733 #### Test performed at: [address] [address] MCHC (RBC) [Mass/Vol] 33.3 g/dL Normal 31.5-36.5 [facility] Comment on above: Order Comment: Comme nts To Phleb: pre-op in PAT Performed By: #### L 200.45129 #### Test performed at: [address] [address] MCV (RBC) [Entitic vol] 94.6 fL Normal 80.0-100.0 [facility] Comment on above: Order Comment: Comme nts To Phleb: pre-op in PAT Performed By: #### L 200.28407 #### Test performed at: [address] [address] MONO ABS 1.1 K/uL High 0.0-1.0 [facility] Comment on above: Order Comment: Comme nts To Phleb: pre-op in PAT Performed By: #### L 200.60823 #### Test performed at: [address] [address] Monocytes/100 WBC (Bld) 8.1 % Normal [facility] Comment on above: Order Comment: Comme nts To Phleb: pre-op in PAT Performed By: #### L 200.01921 #### Test performed at: [address] [address] NEUTROPHIL ABS 8.8 K/uL High 1.4-6.6 [facility] Comment on above: Order Comment: Comme nts To Phleb: pre-op in PAT Performed By: #### L 200.31429 #### Test performed at: [address] [address] Neutrophils/100 WBC (Bld) 63.0 % Normal [facility] Comment on above: Order Comment: Comme nts To Phleb: pre-op in PAT Performed By: #### L 200.40933 #### Test performed at: [address] [address] NRBC # 0.000 K/uL Normal 0-0.012 [facility] Comment on above: Order Comment: Comme nts To Phleb: pre-op in PAT Performed By: #### L 200.11034 #### Test performed at: [address] [address] NRBC % 0.0 /100 WBC Normal 0-0.2 [facility] Comment on above: Order Comment: Comme nts To Phleb: pre-op in PAT Performed By: #### L 200.93959 #### Test performed at: [address] [address] Platelet mean volume (Bld) [Entitic vol] 10.3 fL Normal 8.7-12.4 [facility] Comment on above: Order Comment: Comme nts To Phleb: pre-op in PAT Performed By: #### L 200.89852 #### Test performed at: [address] [address] Platelets (Bld) [#/Vol] 302 10*3/uL Normal 140-440 [facility] Comment on above: Order Comment: Comme nts To Phleb: pre-op in PAT Performed By: #### L 200.90791 #### Test performed at: [address] [address] RBC (Bld) [#/Vol] 4.28 10*6/uL Normal 3.5-5.5 [facility] Comment on above: Order Comment: Comme nts To Phleb: pre-op in PAT Performed By: #### L 200.19657 #### Test performed at: [address] [address] WBC (Bld) [#/Vol] 13.9 10*3/uL High 3.9-11.0 [facility] Comment on above: Order Comment: Comme nts To Phleb: pre-op in PAT Performed By: #### L 200.27442 #### Test performed at: [address] [address] CHEST PA/AP & LATERAL OR 2 V WSon 01-26-2020 CHEST PA/AP & LATERAL OR 2 VWS STUDY: CHEST PA/AP LATERAL OR 2 VWS; 01/26/2020 3:40 pm INDICATION: pre-op in PAT per Surgeon request. COMPARISON: 08/11/2012 ACCESSION NUMBER(S): [id number] ORDERING CLINICIAN: Trisha Quiñones FINDINGS: Unchanged blunting of the right costophrenic angle relating to scarring given the chronicity. Right pleural calcifications are not significantly changed. No focal infiltrate. No apparent pleural effusion. Normal heart size, mediastinum, michelle, and pulmonary vasculature. Thoracic kyphosis with mild degenerative changes. IMPRESSION: No active disease in the chest. Chronic changes of the right lung similar prior exam. Normal [facility] COMP META PANELon 01-26-2020 Albumin [Mass/Vol] 3.9 g/dL Normal 3.4-5.0 [facility] Comment on above: Order Comment: Comme nts To Phleb: pre-op in PAT Performed By: #### L 500.95650, L500.94808 #### Test performed at: [address] [address] ALK PHOS TOTAL 95 U/L Normal 45-117 [facility] Comment on above: Order Comment: Comme nts To Phleb: pre-op in PAT Performed By: #### L 500.73748, L500.35800 #### Test performed at: [address] [address] ALT [Catalytic activity/Vol] 64 U/L High 13-61 [facility] Comment on above: Order Comment: Comme nts To Phleb: pre-op in PAT Performed By: #### L 500.90971, L500.97176 #### Test performed at: [address] [address] AST [Catalytic activity/Vol] 34 U/L Normal 15-37 [facility] Comment on above: Order Comment: Comme nts To Phleb: pre-op in PAT Performed By: #### L 500.76699, L500.04370 #### Test performed at: [address] [address] BILI TOTAL 0.6 mg/dL Normal 0.2-1.0 [facility] Comment on above: Order Comment: Comme nts To Phleb: pre-op in PAT Performed By: #### L 500.82584, L500.00156 #### Test performed at: [place] [address] Calcium [Mass/Vol] 9.3 mg/dL Normal 8.5-10.1 [facility] Comment on above: Order Comment: Comme nts To Phleb: pre-op in PAT Performed By: #### L 500.50747, L500.90992 #### Test performed at: [address] [address] Chloride [Moles/Vol] 107 mmol/L Normal 98-107 [facility] Comment on above: Order Comment: Comme nts To Phleb: pre-op in PAT Performed By: #### L 500.11218, L500.03759 #### Test performed at: [address] [address] CO2 [Moles/Vol] 28 mmol/L Normal 21-32 [facility] Comment on above: Order Comment: Comme nts To Phleb: pre-op in PAT Performed By: #### L 500.73439, L500.22274 #### Test performed at: [address] [address] Creatinine [Mass/Vol] 1.560 mg/dL High 0.700-1.300 [facility] Comment on above: Order Comment: Comme nts To Phleb: pre-op in PAT Performed By: #### L 500.92287, L500.61648 #### Test performed at: [address] [address] Glucose [Mass/Vol] 106 mg/dL High 70-99 [facility] Comment on above: Order Comment: Comme nts To Phleb: pre-op in PAT Result Comment: Fast ing GLUCOSE reference range has been updated per (ADA) [place] [employer]'s recommendation. 05/12/2018 Performed By: #### L 500.58361, L500.06675 #### Test performed at: [address] [address] Potassium [Moles/Vol] 4.6 mmol/L Normal 3.5-5.1 [facility] Comment on above: Order Comment: Comme nts To Phleb: pre-op in PAT Performed By: #### L 500.93357, L500.00641 #### Test performed at: [address] [address] Protein [Mass/Vol] 7.3 g/dL Normal 6.4-8.2 [facility] Comment on above: Order Comment: Comme nts To Phleb: pre-op in PAT Performed By: #### L 500.39261, L500.72829 #### Test performed at: [address] [address] Sodium [Moles/Vol] 141 mmol/L Normal 136-145 [facility] Comment on above: Order Comment: Comme nts To Phleb: pre-op in PAT Performed By: #### L 500.97213, L500.23782 #### Test performed at: [address] [address] Urea nitrogen [Mass/Vol] 28 mg/dL High 7-18 [facility] Comment on above: Order Comment: Comme nts To Phleb: pre-op in PAT Performed By: #### L 500.64312, L500.49768 #### Test performed at: [address] [address] GFR ESTIMATEon 01-26-2020 IF AMER 56 Low > 60 [facility] Comment on above: Order Comment: Comme [...] for clinical interpretation. Performed By: #### L 500.06517, L500.17786 #### Test performed at: [place] [address] IF non-AFR AMER 46 Low > 60 [facility] Comment on above: Order Comment: Comme nts To Phleb: pre-op in PAT Performed By: #### L 500.70142, L500.55475 #### Test performed at: [place] [address] H & Froy 01-26-2020 H & P [facility] Patient: JEFFERSON CARCAMO [address] [place] [address] MR#: [id number] HISTORY and PHYSICAL : Service Date: 01/26/201529 See Addendum Verdana 4d HPI/Past Med Surg Hx/Fam Soc HPI Primary Care Physician [phone] Information Source PATIENT Language Barrier No Chief [...] SOB, CP, lower extremity edema, history of NM/stroke , or recent cough or cold. PMH/PSH [...] Chest pain, Pain on exertion, History of NM, Leg swelling. Gastrointestinal Denies: No Issues Noted, [...] directed post- operatively. * Follow up with Folder Machine Operator/Primary Care as scheduled. 3. Diabetes * Continue to take medications as prescribed. * Follow up with Hand Braille Transcriber as scheduled. 4. Ankylosing Spondilitis: * Continue [...] PA 01/27/20 0856 Dinesh Huffman MD Normal [facility] TSPATon 01-26-2020 ABO and Rh group Nom (Bld) A POSITIVE Normal [facility] Comment on above: Order Comment: Trans fusion Status: CONSERVATION Blood Bank service requested: TYPE AND SCREEN Comments To Phleb: pre-op in PAT Performed By: #### B 100.0201 #### Test performed at: [place] [address] Otheron 12-06-2019 Interpreted by: EVON OTOOLE12/06/19 16:32MRN: [id number] Name: JEFFERSON CARCAMO STUDY:HIP, UNILATERAL W/PELVIS WHEN PERFORMED 2-3 VIEWS; Left; 12/06/20193:53 pm INDICATION:pain. ORDERING CLINICIAN:MARCO OTOOLE FINDINGS:AP lateral left hip x-ray shows advanced osteoarthritis hhvj-ex-jcfzczrtfhpij complete loss of joint space. No fracture no dislocationotherwise noted Electronically signed by: MARCO OTOOLE 12/06/19 16:32 [facility] Work Phone: Otheron 11-22-2019 Interpreted by: KULWANT VAUGHN11/23/19 17:25MRN: [id number] Name: JEFFERSON CARCAMO STUDY:HIP, UNILATERAL W/PELVIS WHEN PERFORMED 2-3 VIEWS INDICATION:M70.60 M25.552. COMPARISON:None ORDERING CLINICIAN:PHILLIP BERNAL FINDINGS:Advanced osteoarthritis left hip. No fracture seen. No osseous lesion. IMPRESSION:Advanced osteoarthritis left hip.Electronically signed by: BELLO VAUGHN 11/23/19 17:25 Normal [facility] [place] Work Phone: Comment on above: Ordering Provider: Lian BERNAL [address] IO Hgb A1Con 10-06-2019 HbA1c (Bld) [Mass fraction] 6.8 % 4.4-6.4% [employer] Work Phone: IO glucose, blood, finger st ick via hand held monitoron 10-06-2019 Glucose [Mass/Vol] 118 mg/dL [facility] Work Phone: Comment on above: patient last ate at 12:00 p.mpatient tests 1x a day Complete Blood Count + Diffe rentialon 09-20-2019 Basophils (Bld) [#/Vol] 0.03 {x10E9/L} See Below [employer] Work Phone: Comment on above: Reference Range: 0.0 0 - 0.10 Basophils/100 WBC (Bld) 0.2 % 0.0 - 2.0 [employer] Work Phone: Eosinophils (Bld) [#/Vol] 0.37 {x10E9/L} See Below [employer] Work Phone: Comment on above: Reference Range: 0.0 0 - 0.70 Eosinophils/100 WBC (Bld) 3.0 % 0.0 - 6.0 [employer] Work Phone: Erythrocyte distribution width (RBC) [Ratio] 12.7 % See Below [employer] Work Phone: Comment on above: Reference Range: 11. 5 - 14.5 Hematocrit (Bld) [Volume fraction] 38.1 % below low threshold See Below [employer] Work Phone: Comment on above: Reference Range: 41. 0 - 52.0 Hemoglobin (Bld) [Mass/Vol] 12.7 g/dL below low threshold See Below [employer] Work Phone: Comment on above: Reference Range: 13. 5 - 17.5 Lymphocytes (Bld) [#/Vol] 2.83 {x10E9/L} See Below [employer] Work Phone: Comment on above: Reference Range: 1.2 0 - 4.80 Lymphocytes/100 WBC (Bld) 23.2 % See Below [employer] Work Phone: Comment on above: Reference Range: 13. 0 - 44.0 MCHC (RBC) [Mass/Vol] 33.3 g/dL See Below [employer] Work Phone: Comment on above: Reference Range: 32. 0 - 36.0 MCV (RBC) [Entitic vol] 94 fL 80 - 100 [employer] Work Phone: Monocytes (Bld) [#/Vol] 1.00 {x10E9/L} See Below [employer] Work Phone: Comment on above: Reference Range: 0.1 0 - 1.00 Monocytes/100 WBC (Bld) 8.2 % 2.0 - 10.0 [employer] Work Phone: Neutrophils/100 WBC (Bld) 65.2 % See Below [employer] Work Phone: Comment on above: Reference Range: 40. 0 - 80.0 Platelets (Bld) [#/Vol] 263 {x10E9/L} 150 - 450 [employer] Work Phone: RBC (Bld) [#/Vol] 4.07 {x10E12/L} below low threshold See Below [facility] Work Phone: Comment on above: Reference Range: 4.5 0 - 5.90 WBC (Bld) [#/Vol] 12.2 {x10E9/L} above high threshold 4.4 - 11.3 [facility] Work Phone: Complete Blood Count + Differential 0.2 % 0.0 - 0.9 [facility] Work Phone: Comment on above: Immature Granulocyte [...] [Catalytic activity/Vol] 76 U/L 33 - 120 [facility] Work Phone: Anion gap [Moles/Vol] 12 mmol/L 10 - 20 [facility] Work Phone: Bilirubin [Mass/Vol] 0.5 mg/dL 0.0 - 1.2 [facility] Work Phone: Calcium [Mass/Vol] 10.0 mg/dL 8.6 - 10.3 [facility] Work Phone: Chloride [Moles/Vol] 105 mmol/L 98 - 107 [facility] Work Phone: CO2 [Moles/Vol] 26 mmol/L 21 - 32 [facility] Work Phone: Creatinine [Mass/Vol] 1.70 mg/dL above high threshold See Below [facility] Work Phone: Comment on above: Reference Range: 0.5 0 - 1.30 Glucose [Mass/Vol] 115 mg/dL above high threshold 74 - 99 [employer] Work Phone: Iron [Mass/Vol] 68 ug/dL 35 - 150 [employer] Work Phone: Potassium [Moles/Vol] 4.6 mmol/L 3.5 - 5.3 [employer] Work Phone: Protein [Mass/Vol] 7.0 g/dL 6.4 - 8.2 [facility] Work Phone: Sodium [Moles/Vol] 138 mmol/L 136 - 145 [employer] Work Phone: Urea nitrogen [Mass/Vol] 43 mg/dL above high threshold 6 - 23 [employer] Work Phone: Otheron 09-20-2019 Albumin BCP dye [Mass/Vol] 4.4 g/dL 3.4 - 5.0 [employer] Work Phone: ALT With P-5'-P [Catalytic activity/Vol] 39 U/L 10 - 52 [employer] Work Phone: Comment on above: Patients treated wit h Sulfasalazine may generate falsely decreased results for ALT. AST With P-5'-P [Catalytic activity/Vol] 31 U/L 9 - 39 [employer] Work Phone: Iron binding capacity [Mass/Vol] 278 ug/dL 240 - 445 [employer] Work Phone: 51 {mL/min/1.73m2} Abnormal >60 [facility] Work Phone: Comment on above: CALCULATIONS OF FARA MATED GFR ARE PERFORMED USING THE MDRD STUDY EQUATION FOR THE IDMS-TRACEABLE CREATININE METHODS. CLIN CHEM 2007;53:766-72 42 {mL/min/1.73m2} Abnormal >60 [employer] Work Phone: 24 % below low threshold 25 - 45 [employer] Work Phone: Creatine Kinase, Levelon CK [Catalytic activity/Vol] 391 U/L above high threshold 0 - 325 [employer] Work Phone: Comment on above: Ordering Provider: Lian BERNAL [address] Hemoglobin A1Con 02-05-2019 HbA1c (Bld) [Mass fraction] 140 {MG/DL} [employer] Work Phone: Comment on above: Ordering Provider: Lian BERNAL [address] HbA1c (Bld) [Mass fraction] 6.5 % [employer] Work Phone: Comment on above: Diagnosis of Diabete s-Adults Non-Diabetic: < or = 5.6% Increased risk for developing diabetes: 5.7-6.4% Diagnostic of diabetes: > or = 6.5%. Monitoring of Diabetes Age (y) Therapeutic Goal (%) Adults: >18 <7.0 Pediatrics: 13-18 <7.5 7-12 <8.0 0- 6 7.5-8.5 [place] [employer]. Diabetes Care 33(S1), Feb 2009. Ordering Provider: Lian BERNAL [address] Lipid Panelon 02-05-2019 Cholesterol [Mass/Vol] 133 mg/dL 0 - 199 [employer] Work Phone: Comment on above: . AGE [...] to Metamizole dosing. Ordering Provider: Lian BERNAL [address] Cholesterol in HDL [Mass/Vol] 37.0 mg/dL Abnormal [employer] Work Phone: Comment on above: . AGE VERY LOW LOW N ORMAL HIGH 0-19 Y < 35 < 40 40-45 ---- 20-24 Y ---- < 40 >45 ---- >24 Y ---- < 40 40-60 >60. Ordering Provider: Lian BERNAL [address] Cholesterol in LDL [Mass/Vol] 51 mg/dL 0 - 99 [facility] Phone: Comment on above: . NEAR BORD AGE ARACELI RABLE OPTIMAL HIGH HIGH VERY HIGH 0-19 Y 0 - 109 --- 110-129 >/= 130 ---- 20-24 Y 0 - 119 --- 120-159 >/= 160 ---- >24 Y 0 - 99 100-129 130-159 160-189 >/=190. Ordering Provider: Lian BERNAL [address] Cholesterol non HDL [Mass/Vol] 96 mg/dL [facility] Phone: Comment on above: AGE DESIRABLE BORDER LINE HIGH HIGH VERY HIGH 0-19 Y 0 - 119 120 - 144 >/= 145 >/= 160 20-24 Y 0 - 149 150 - 189 >/= 190 ---- >24 Y 30 MG/DL ABOVE LDL CHOLESTEROL GOAL. Ordering Provider: Lian BERNAL 05353 Cholesterol.total/Chol esterol in HDL [Mass ratio] 3.6 {ratio} [facility] Phone: Comment on above: REF VALUESDESIRABLE < 3.4HIGH RISK > 5.0 Ordering Provider: Lian BERNAL 01341 Triglyceride [Mass/Vol] 226 mg/dL above high threshold 0 - 149 [facility] Phone: Comment on above: . AGE DESIRABLE [...] to Metamizole dosing. Ordering Provider: Lian BERNAL 330[address] Lipid Panel 45 mg/dL above high threshold 0 - 40 [facility] Work Phone: Comment on above: Ordering Provider: Lian Rosa12 Metabolic Panelon 02-05-2019 ALP [Catalytic activity/Vol] 79 U/L 33 - 120 [facility] Work Phone: Comment on above: Ordering Provider: Lian Rosa12 Anion gap [Moles/Vol] 13 mmol/L 10 - 20 [facility] Work Phone: Comment on above: Ordering Provider: Lian Rosa12 Bilirubin [Mass/Vol] 0.7 mg/dL 0.0 - 1.2 [facility] Work Phone: Comment on above: Ordering Provider: Lian BERNAL [address] Calcium [Mass/Vol] 9.2 mg/dL 8.6 - 10.3 [facility] Work Phone: Comment on above: Ordering Provider: Lian Rosa12 Chloride [Moles/Vol] 103 mmol/L 98 - 107 [facility] Work Phone: Comment on above: Ordering Provider: Lian BERNAL [address] CO2 [Moles/Vol] 27 mmol/L 21 - 32 [facility] Work Phone: Comment on above: Ordering Provider: Lian Rosa12 Creatinine [Mass/Vol] 1.57 mg/dL above high threshold See Below [facility] Work Phone: Comment on above: Reference Range: 0.5 0 - 1.30 Ordering Provider: Lian Rosa12 Glucose [Mass/Vol] 161 mg/dL above high threshold 74 - 99 [facility] Work Phone: Comment on above: Ordering Provider: Lian Rosa12 Potassium [Moles/Vol] 4.1 mmol/L 3.5 - 5.3 [facility] Work Phone: Comment on above: Ordering Provider: Lian Joaquin Protein [Mass/Vol] 7.0 g/dL 6.4 - 8.2 [facility] Work Phone: Comment on above: Ordering Provider: Lian Joaquin Sodium [Moles/Vol] 139 mmol/L 136 - 145 [facility] Work Phone: Comment on above: Ordering Provider: Lian Joaquin Urea nitrogen [Mass/Vol] 30 mg/dL above high threshold 6 - 23 [facility] Work Phone: Comment on above: Ordering Provider: Lian Joaquin Otheron 02-05-2019 Albumin BCP dye [Mass/Vol] 4.1 g/dL 3.4 - 5.0 [facility] Work Phone: Comment on above: Ordering Provider: [...] specific Ag [Mass/Vol] 2.89 ng/mL See Below [employer] Work Phone: Comment on above: Reference Range: 0.0 0 - 4.00The FDA requires that the method used for PSA assay be reported to the physician. Values obtained with different assay methods must not be used interchangeably. This test was performed at [facility] using the ADVIAElanceaur PSA method, which is a sandwich immunoassay using chemiluminescence for quantitation. The assay is approvedfor measurement of prostate-specific antigen (PSA) in serum and may be used in conjunction with a digital rectalexamination in men 50 years and older as an aid in detection of prostate cancer. 6-Nqtre-ycpazzppj inhibitors (e.g. Proscar, Finasteride, Avodart, Dutasteride and [place]) for the treatment of BPH have been shown to lower PSA levels by an average of 50% after 6 months of treatment. Ordering Provider: Lian BERNAL 41108 TSH - Thyroid Stimulating Ho agusone, Serumon 02-05-2019 TSH Qn 1.48 {mIU/L} See Below [employer] Work Phone: Comment on above: Reference Range: 0.4 4 - 3.98 TSH testing is performed using different testing methodology at [facility] than at other [facility]. Direct result comparisons should only be made within the same method. Ordering Provider: Lian BERNAL 42013 Urinalysison 02-05-2019 Albumin/Creatinine DL <= 20 mg/L (U) [Mass ratio] 5.1 {ug/mg_crt} 0.0 - 30.0 [employer] Work Phone: Comment on above: Ordering Provider: Lian BERNAL [address] Creatinine (U) [Mass/Vol] 140.0 mg/dL See Below [employer] Work Phone: Comment on above: Reference Range: 20. 0 - 370.0 Ordering Provider: Lian Rosa12 CBC PLATELET AUTO DIFFon BASO ABS 0.06 K/uL Normal 0-0.20 [facility] Comment on above: Performed By: #### L ELANA WILLSON #### [facility] [address] [place] [address] Basophils/100 WBC (Bld) 0.5 % Normal 0.0-2.0 [facility] Comment on above: Performed By: #### L IRONP LFER #### [facility] [address] [place] [address] EOS ABS 0.41 K/uL High 0.10-0.30 [facility] Comment on above: Performed By: #### L IRONP LFER #### [facility] [address] [place] [address] Eosinophils/100 WBC (Bld) 3.6 % Normal 0.0-6.0 [facility] Comment on above: Performed By: #### L ANAMIKA LFER #### [facility] [address] [place] [address] Erythrocyte distribution width Ratio (RBC) 12.8 % Normal 11.5-14.5 [facility] Comment on above: Performed By: #### L IRONMacie LFER #### [facility] [address] [place] [address] Hematocrit Volume Fraction (Bld) 40.9 % Normal 39.0-55.0 [facility] Comment on above: Performed By: #### L ANAMIKA LFER #### [facility] [address] [place] [address] Hemoglobin mass conc (Bld) 13.5 g/dL Low 14.0-16.5 [facility] Comment on above: Performed By: #### L IRONP LFER #### [facility] [address] [place] [address] IG % 0.1 % Normal 0.0-0.9 [facility] Comment on above: Performed By: #### L IRONP LFER #### [facility] [address] [place] [address] IG ABS 0.01 K/uL Normal [facility] Comment on above: Performed By: #### L IRONP, LFER #### [facility] [address] [place] [address] Lymphocytes #/vol (Bld) 4.06 10*3/uL High 1.2-4.0 [facility] Comment on above: Performed By: #### L IRONP, LFER #### [facility] [address] [place] [address] Lymphocytes/100 WBC (Bld) 35.7 % Normal 13.0-44.0 [facility] Comment on above: Performed By: #### L IRONP, LFER #### [facility] [address] [place] [address] MCH Entitic mass (RBC) 30.6 pg Normal 25.4-34.6 [facility] Comment on above: Performed By: #### L IRONP, LFER #### [facility] [address] [place] [address] MCHC mass conc (RBC) 33.0 g/dL Normal 30.0-36.0 [facility] Comment on above: Performed By: #### L IRONP, LFER #### [facility] [address] [place] [address] MCV Entitic volume (RBC) 92.7 fL Normal 79.0-98.0 [facility] Comment on above: Performed By: #### L IRONP, LFER #### [facility] [address] [place] [address] MONO ABS 1.05 K/uL High 0-1.00 [facility] Comment on above: Performed By: #### L IRONP, LFER #### [facility] [address] [place] [address] Monocytes/100 WBC (Bld) 9.2 % Normal 2.0-10.0 [facility] Comment on above: Performed By: #### L IRONP, LFER #### [facility] [address] [place] [address] NEUT ABS 5.79 K/uL Normal 1.9-8.0 [facility] Comment on above: Performed By: #### L IRONP, LFER #### [facility] [address] [place] [address] Neutrophils/100 WBC (Bld) 50.9 % Normal 40.0-80.0 [facility] Comment on above: Performed By: #### L IRONP, LFER #### [facility] [address] [place] [address] Platelet mean volume Entitic volume (Bld) 9.7 fL Normal 8.4-11.9 [facility] Comment on above: Performed By: #### L IRONMacie LFER #### [facility] [address] [place] [address] Platelets #/vol (Bld) 273 10*3/uL Normal 140-440 [facility] Comment on above: Performed By: #### L IRONP LFER #### [facility] [address] [place], [place] [address] RBC #/vol (Bld) 4.41 10*6/uL Normal 4.0-6.0 [facility] on above: Performed By: #### L IRONMacie LFER #### [facility] [address] [place], [place] [address] WBC #/vol (Bld) 11.4 10*3/uL High 3.9-11.0 [facility] on above: Performed By: #### L IRONP LFER #### [facility] [address] [place], [place] [address] COMP METABOLIC PANELon 03-24 ALK PHOS TOTAL 81 U/L Normal 45-117 [facility] Comment on above: Order Comment: 2 OF 2 ORDERS Performed By: #### L IRONP, LFER #### [facility] [address] [place], [place] [address] ALT enzyme act/vol 25 U/L Normal 10-52 [facility] Comment on above: Order Comment: 2 OF 2 ORDERS Performed By: #### L IRONP, LFER #### [facility] [address] [place], [place] [address] AST enzyme act/vol 24 U/L Normal 13-39 [facility] Comment on above: Order Comment: 2 OF 2 ORDERS Performed By: #### L IRONP, LFER #### [facility] [address] [place], [place] [address] BILI TOTAL 0.4 mg/dL Normal 0-1.2 [facility] Comment on above: Order Comment: 2 OF 2 ORDERS Performed By: #### L IRONP, LFER #### [facility] [address] [place] [address] Protein mass conc 7.6 g/dL Normal 6.4-8.2 [facility] [place] on above: Order Comment: 2 OF 2 ORDERS Performed By: #### L IRONP, LFER #### [facility] [address] [place] [address] Albumin mass conc 4.3 g/dL Normal 3.4-5.0 [facility] [place] on above: Order Comment: 2 OF 2 ORDERS Performed By: #### L IRONP, LFER #### [facility] [address] [place] [address] Calcium mass conc 9.9 mg/dL Normal 8.6-10.3 [facility] [place] on above: Order Comment: 2 OF 2 ORDERS Performed By: #### L IRONP, LFER #### [facility] [address] [place] [address] Chloride molar conc 101 mmol/L Normal 98-107 [facility] Comment on above: Order Comment: 2 OF 2 ORDERS Performed By: #### L IRONP, LFER #### [facility] [address] [place] [address] CO2 molar conc 30 mmol/L Normal 21-32 [facility] Comment on above: Order Comment: 2 OF 2 ORDERS Performed By: #### L IRONP, LFER #### [facility] [address] [place] [address] Creatinine mass conc 1.30 mg/dL Normal 0.5-1.30 [facility] Comment on above: Order Comment: 2 OF 2 ORDERS Result Comment: Antonette fied kinetic Sweta reaction - IDMS traceable Performed By: #### L IRONP, LFER #### [facility] [address] [place] [address] Glucose mass conc 101 mg/dL High 74-99 [facility] [place] above: Order Comment: 2 OF 2 ORDERS Performed By: #### L IRONP, LFER #### [facility] [id number] [place] [address] Potassium molar conc 4.2 mmol/L Normal 3.5-5.3 [facility] Comment on above: Order Comment: 2 OF 2 ORDERS Performed By: #### L IRONP, LFER #### [facility] [address] [place] [address] Sodium molar conc 137 mmol/L Normal 136-145 [facility] [place] above: Order Comment: 2 OF 2 ORDERS Performed By: #### L IRONP, LFER #### [facility] [address] [place] [address] Urea nitrogen mass conc 31 mg/dL High 6-23 [facility] [place] Comment on above: Order Comment: 2 OF 2 ORDERS Performed By: #### L IRONP, LFER #### [facility] [address] [place] [address] GLOMERULAR FILTRATION RATE E STon 03-24-2018 GFR/1.73 sq M predicted among non-blacks MDRD vol rate/area (S/P/Bld) 61 mL/min/{1.73_m2} Normal > 60 [facility] Comment on above: Order Comment: 2 OF 2 ORDERS Performed By: #### L IRONP, LFER #### [facility] [id number] [place] [address] IF AMER 71 mL/MIN Normal > 60 [facility] Comment on above: Order Comment: 2 OF 2 ORDERS Result Comment: Effe ctive 07/13/14: CKD-EPI equation / based on IDMS traceable creatinine. Continue to use the CREAT CLR-DOSE (Cockgroft-Gault) value for determining medication dose. Performed By: #### L IRONP, LFER #### [facility] [address] [place] [address] COMP METABOLIC PANELon 02-13 Albumin mass conc 3.9 g/dL Normal 3.4-5.0 [facility] [place] above: Order Comment: 2 OF 2 ORDERS Performed By: #### L IRONP, LFER #### [facility] [address] [place] [address] ALK PHOS TOTAL 66 U/L Normal 45-117 [facility] Comment on above: Order Comment: 2 OF 2 ORDERS Performed By: #### L IRONP, LFER #### [facility] [address] [place] [address] ALT enzyme act/vol 20 U/L Normal 10-52 [facility] Comment on above: Order Comment: 2 OF 2 ORDERS Performed By: #### L IRONP, LFER #### [facility] [address] [place] [address] AST enzyme act/vol 22 U/L Normal 13-39 [facility] Comment on above: Order Comment: 2 OF 2 ORDERS Performed By: #### L IRONP, LFER #### [facility] [id number] [place] [address] BILI TOTAL 0.4 mg/dL Normal 0-1.2 [facility] Comment on above: Order Comment: 2 OF 2 ORDERS Performed By: #### L IRONP, LFER #### [facility] [id number] [place] [address] Calcium mass conc 9.1 mg/dL Normal 8.6-10.3 [facility] [place] on above: Order Comment: 2 OF 2 ORDERS Performed By: #### L IRONP, LFER #### [facility] [address] [place] [address] Chloride molar conc 103 mmol/L Normal 98-107 [facility] Comment on above: Order Comment: 2 OF 2 ORDERS Performed By: #### L IRONP, LFER #### [facility] [id number] [place] [address] CO2 molar conc 29 mmol/L Normal 21-32 [facility] Comment on above: Order Comment: 2 OF 2 ORDERS Performed By: #### L IRONP, LFER #### [facility] [address] [place] [address]66 Creatinine mass conc 1.43 mg/dL High 0.5-1.3 [facility] Comment on above: Order Comment: 2 OF 2 ORDERS Performed By: #### L IRONP, LFER #### [facility] [id number] [place] [address] Glucose mass conc 146 mg/dL High 74-99 [facility] [place] on above: Order Comment: 2 OF 2 ORDERS Performed By: #### L IRONP, LFER #### [facility] [id number] [place] [address] Potassium molar conc 4.4 mmol/L Normal 3.5-5.3 [facility] Comment on above: Order Comment: 2 OF 2 ORDERS Performed By: #### L IRONP, LFER #### [facility] [address] [place] [address] Protein mass conc 6.8 g/dL Normal 6.4-8.2 [facility] [place] on above: Order Comment: 2 OF 2 ORDERS Performed By: #### L IRONP, LFER #### [facility] [address] [place] [address] Sodium molar conc 138 mmol/L Normal 136-145 [facility] [place] on above: Order Comment: 2 OF 2 ORDERS Performed By: #### L IRONP, LFER #### [facility] [address] [place] [phone] Urea nitrogen mass conc 29 mg/dL High 6-23 [facility] [place] Comment on above: Order Comment: 2 OF 2 ORDERS Performed By: #### L IRONP, LFER #### [facility] [address] [place] [phone] GLOMERULAR FILTRATION RATE E STon 02-13-2018 GFR/1.73 sq M predicted among non-blacks MDRD vol rate/area (S/P/Bld) 55 mL/min/{1.73_m2} Low > 60 [facility] Comment on above: Order Comment: 2 OF 2 ORDERS Performed By: #### L IRONP, LFER #### [facility] [id number] [place] [address]129 IF AMER 63 mL/MIN Normal > 60 [facility] Comment on above: Order Comment: 2 OF 2 ORDERS Result Comment: Effe ctive 07/13/14: CKD-EPI equation / based on IDMS traceable creatinine. Continue to use the CREAT CLR-DOSE (Cockgroft-Gault) value for determining medication dose. Performed By: #### L IRONP, LFER #### [facility] [id number] [place] [address] HEMOGLOBIN A1C GLYCOHGBon eAG 125.5 mg/dL Normal [facility] Comment on above: Order Comment: 2 OF 2 ORDERS Result Comment: eAG: (Estimated Average Glucose) is a calculated value from HgbA1c and is clearance representative of the average blood glucose level in the last 2-3 month period. Performed By: #### L IRONP, LFER #### [facility] [id number] [place] [address] Hemoglobin A1c/Hemoglobin.total mass fraction (Bld) 6.0 % Normal 4.3-6.1 [facility] Comment on above: Order Comment: 2 OF 2 ORDERS Performed By: #### L IRONP, LFER #### [facility] [address] [place] [address] LIPID PANELon 02-13-2018 Cholesterol in HDL mass conc 35.0 mg/dL Low >40 [facility] Comment on above: Order Comment: 2 OF 2 ORDERS Performed By: #### L IRONP, LFER #### [facility] [address] [place] [address] Cholesterol in LDL mass conc 65 mg/dL Normal [facility] Comment on above: Order Comment: 2 OF 2 ORDERS Result Comment: LDL Risk Stratification: < 100 mg/dL - Optimal < 130 - Near optimal 130 - 159 - Borderline high 160 - 189 - High > 189 - Very high *National Cholesterol Education Program (NCEP) levels in terms of risk for coronary heart disease. Performed By: #### L IRONP, LFER #### [facility] [address] [place] [address] Cholesterol mass conc 125 mg/dL Normal [facility] Comment on above: Order Comment: 2 OF 2 ORDERS Result Comment: Chol esterol Risk Stratification <200 mg/dL Desirable 200-240 mg/dL Borderline >240 mg/dL High Risk Performed By: #### L IRONP, LFER #### [facility] [address] [place] [address] Triglyceride mass conc 157 mg/dL High [facility] Comment on above: Order Comment: 2 OF 2 ORDERS Result Comment: Trig lycerides Reference Range <150 mg/dL Normal 150-199 mg/dL Borderline High 200-499 mg/dL High >/=500 mg/dL Very High Performed By: #### L IRONP, LFER #### [facility] [address] [place] [address] UR MICROALBUMIN RANDOMon Creatinine mass conc 92.2 mg/dL Normal Not Establshd [facility] Comment on above: Performed By: #### L IRONP, LFER #### [facility] [address] [place] [address] UR MICROALB RDM < 5.0 Normal Not Establshd [facility] Comment on above: Performed By: #### L IRONP, LFER #### [facility] [address] [place] [address] UR RATIO NotDone Normal <30.0 [facility] Comment on above: Result Comment: Unab le to calculate Urine Microalbumin/Creatinine Ratio due to low microalbumin value. Suggest repeating with a 24hr specimen. Performed By: #### L IRONP, LFER #### [facility] [address] [place] [address] MISCELLANEOUS TESTon 018 MISC TEST Normal [facility] Comment on above: Order Comment: 2 OF 2 ORDERS Result Comment: Test ing performed at [facility] Final report from [facility] will be mailed/faxed Performed By: #### L IRONP, LFER #### [facility] [address] [place] [address] MISCELLANEOUS TESTon 018 MISC TEST Normal [facility] Comment on above: Order Comment: CD3 - LAVENDER 1 OF 2 ORDERS Name of Test: CD3 (2nd line): GREEN NA HEP LAV Result Comment: Test ing performed at [facility] Final report from [facility] will be mailed/faxed Performed By: #### L MISCT #### MISC TESTING SITES IGGon 08-31-2017 IgG mass conc 1044 mg/dL Normal 700-1600 [facility] Comment on above: Order Comment: 2 OF 2 ORDERS Result Comment: [facility];[address] [place] [address];Lab ;Dir ctor: Joaquin Garcia, PhD Performed By: #### L IGG #### [facility] [address] [place] [address] CBC AUTOon 08-29-2017 Erythrocyte distribution width Ratio (RBC) 13.0 % Normal 11.5-14.5 [facility] Comment on above: Order Comment: 2 OF 2 ORDERS Performed By: #### L CBCMD, LCBC #### [facility] [address] [place], [place] [id number] Hematocrit Volume Fraction (Bld) 39.5 % Normal 39.0-55.0 [facility] Comment on above: Order Comment: 2 OF 2 ORDERS Performed By: #### L CBCMD, LCBC #### [facility] [address] [place] [address] Hemoglobin mass conc (Bld) 13.1 g/dL Low 14.0-16.5 [facility] Comment on above: Order Comment: 2 OF 2 ORDERS Performed By: #### L CBCMD, LCBC #### [facility] [address] [place], [place] [phone] MCH Entitic mass (RBC) 30.4 pg Normal 25.4-34.6 [facility] Comment on above: Order Comment: 2 OF 2 ORDERS Performed By: #### L CBCMD, LCBC #### [facility] [address] [place], [place] [phone] MCHC mass conc (RBC) 33.2 g/dL Normal 30.0-36.0 [facility] Comment on above: Order Comment: 2 OF 2 ORDERS Performed By: #### L CBCMD, LCBC #### [facility] [address] [place], [place] [phone] MCV Entitic volume (RBC) 91.6 fL Normal 79.0-98.0 [facility] Comment on above: Order Comment: 2 OF 2 ORDERS Performed By: #### L CBCMD, LCBC #### [facility] [address] [place], [place] [phone] Platelet mean volume Entitic volume (Bld) 10.1 fL Normal 8.4-11.9 [facility] Comment on above: Order Comment: 2 OF 2 ORDERS Performed By: #### L CBCMD, LCBC #### [facility] [address] [place] [address] 15066 Platelets #/vol (Bld) 260 10*3/uL Normal 140-440 [facility] Comment on above: Order Comment: 2 OF 2 ORDERS Performed By: #### L CBCMD, LCBC #### [facility] [address] [place] [address] 80475 RBC #/vol (Bld) 4.31 10*6/uL Normal 4.0-6.0 [facility] [place] on above: Order Comment: 2 OF 2 ORDERS Performed By: #### L CBCMD, LCBC #### [facility] [id number] [place] [address] 35251 WBC #/vol (Bld) 12.3 10*3/uL High 3.9-11.0 [facility] [place] on above: Order Comment: 2 OF 2 ORDERS Performed By: #### L CBCMD, LCBC #### [facility] [id number] [place] [address] 79938 CBC w/MANUAL DIFFon 08-30-19 18 Eosinophils/100 WBC (Bld) 5 % High 1-3 [facility] Comment on above: Order Comment: 2 OF 2 ORDERS Performed By: #### L CBCMD, LCBC #### [facility] [address] [place] [address] 41531 Lymphocytes/100 WBC (Bld) 20 % Normal 20-30 [facility] Comment on above: Order Comment: 2 OF 2 ORDERS Performed By: #### L CBCMD, LCBC #### [facility] [address] [place] [address] 18740 Monocytes/100 WBC (Bld) 5 % Normal 2-8 [facility] Comment on above: Order Comment: 2 OF 2 ORDERS Performed By: #### L CBCMD, LCBC #### [facility] [address] [place] [address] 58048 Neutrophils/100 WBC (Bld) 70 % Normal 50-70 [facility] Comment on above: Order Comment: 2 OF 2 ORDERS Performed By: #### L CBCMD, LCBC #### [facility] [address] [place] [address] Platelets #/vol (Bld) ADEQ Normal [facility] Comment on above: Order Comment: 2 OF 2 ORDERS Performed By: #### L CBCMD, LCBC #### [facility] [address] [place] [address] RBC COMMENTS NORMAL MORPHOLOGY Normal [facility] Comment on above: Order Comment: 2 OF 2 ORDERS Performed By: #### L CBCMD, LCBC #### [facility] [address] [place] [address] 62462 TOTAL CELLS 100 #Cells Normal [facility] Comment on above: Order Comment: 2 OF 2 ORDERS Performed By: #### L CBCMD, LCBC #### [facility] [id number] [place] [address] 77282 NRBC # 0.00 K/uL Normal [facility] Comment on above: Order Comment: 2 OF 2 ORDERS Performed By: #### L CBCMD, LCBC #### [facility] [address] [place] [address] 68974 NRBC % 0.0 /100 WBC Normal 0 [facility] Comment on above: Order Comment: 2 OF 2 ORDERS Performed By: #### L CBCMD, LCBC #### [facility] [address] [place] [address] 91453 COMP METABOLIC PANELon 08-29 Albumin mass conc 4.1 g/dL Normal 3.4-5.0 [facility] [place] on above: Order Comment: 2 OF 2 ORDERS Is patient fasting? YES Performed By: #### L LDH, LURIC, LCMP, LGFRP #### [facility] [address] [place] [address] 77092 ALK PHOS TOTAL 60 U/L Normal 45-117 [facility] Comment on above: Order Comment: 2 OF 2 ORDERS Is patient fasting? YES Performed By: #### L LDH, LURIC, LCMP, LGFRP #### [facility] [address] [place] [address] 28290 ALT enzyme act/vol 21 U/L Normal 10-52 [facility] Comment on above: Order Comment: 2 OF 2 ORDERS Is patient fasting? YES Performed By: #### L LDH, LURIC, LCMP, LGFRP #### [facility] [id number] [place] [address] 33436 AST enzyme act/vol 20 U/L Normal 13-39 [facility] Comment on above: Order Comment: 2 OF 2 ORDERS Is patient fasting? YES Performed By: #### L LDH, LURIC, LCMP, LGFRP #### [facility] [address] [place] [address] 58128 BILI TOTAL 0.4 mg/dL Normal 0-1.2 [facility] Comment on above: Order Comment: 2 OF 2 ORDERS Is patient fasting? YES Performed By: #### L LDH, LURIC, LCMP, LGFRP #### [facility] [address] [place] [address] 67451 Calcium mass conc 9.8 mg/dL Normal 8.6-10.3 [facility] [place] on above: Order Comment: 2 OF 2 ORDERS Is patient fasting? YES Performed By: #### L LDH, LURIC, LCMP, LGFRP #### [facility] [address] [place] [address] 72137 Chloride molar conc 104 mmol/L Normal 98-107 [facility] Comment on above: Order Comment: 2 OF 2 ORDERS Is patient fasting? YES Performed By: #### L LDH, LURIC, LCMP, LGFRP #### [facility] [address] [place] [address] 00993 CO2 molar conc 27 mmol/L Normal 21-32 [facility] Comment on above: Order Comment: 2 OF 2 ORDERS Is patient fasting? YES Performed By: #### L LDH, LURIC, LCMP, LGFRP #### [facility] [id number] [place] [address] 91121 Creatinine mass conc 1.50 mg/dL High 0.5-1.3 [facility] Comment on above: Order Comment: 2 OF 2 ORDERS Is patient fasting? YES Performed By: #### L LDH, LURIC, LCMP, LGFRP #### [facility] [address] [place] [address] 16143 Glucose mass conc 164 mg/dL High 74-99 [facility] [place] on above: Order Comment: 2 OF 2 ORDERS Is patient fasting? YES Performed By: #### L LDH, LURIC, LCMP, LGFRP #### [facility] [address] [place] [address] Potassium molar conc 4.5 mmol/L Normal 3.5-5.3 [facility] Comment on above: Order Comment: 2 OF 2 ORDERS Is patient fasting? YES Performed By: #### L LDH, LURIC, LCMP, LGFRP #### [facility] [address] [place] [address] 47606 Protein mass conc 7.5 g/dL Normal 6.4-8.2 [facility] [place] on above: Order Comment: 2 OF 2 ORDERS Is patient fasting? YES Performed By: #### L LDH, LURIC, LCMP, LGFRP #### [facility] [address] [place] [address] Sodium molar conc 137 mmol/L Normal 136-145 [facility] [place] on above: Order Comment: 2 OF 2 ORDERS Is patient fasting? YES Performed By: #### L LDH, LURIC, LCMP, LGFRP #### [facility] [address] [place] [address] Urea nitrogen mass conc 33 mg/dL High 6-23 [facility] Comment on above: Order Comment: 2 OF 2 ORDERS Is patient fasting? YES Performed By: #### L LDH, LURIC, LCMP, LGFRP #### [facility] [address] [place] [address] 80197 FERRITINon 08-29-2017 Ferritin mass conc 67 ng/mL Normal 20-300 [facility] Comment on above: Order Comment: 2 OF 2 ORDERS Performed By: #### L IRONP, LFER #### [facility] [address] [place] [address] 23595 GLOMERULAR FILTRATION RATE E STon 08-29-2017 GFR/1.73 sq M predicted among non-blacks MDRD vol rate/area (S/P/Bld) 52 mL/min/{1.73_m2} Low > 60 [facility] Comment on above: Order Comment: 2 OF 2 ORDERS Is patient fasting? YES Performed By: #### L LDH, LURIC, LCMP, LGFRP #### [facility] [address] [place] [address] IF AMER 60 mL/MIN Normal > 60 [facility] Comment on above: Order Comment: 2 OF 2 ORDERS Is patient fasting? YES Result Comment: Effe ctive 07/13/14: CKD-EPI equation / based on IDMS traceable creatinine. Continue to use the CREAT CLR-DOSE (Cockgroft-Gault) value for determining medication dose. Performed By: #### L LDH, LURIC, LCMP, LGFRP #### [facility] [address] [place] [address] IRON PANELon 08-29-2017 Iron mass conc 68 ug/dL Normal 35-150 [facility] Comment on above: Order Comment: 2 OF 2 ORDERS Performed By: #### L IRONP, LFER #### [facility] [address] [place] [address] 21553 IRON SAT 20 % Low 25-45 [facility] Comment on above: Order Comment: 2 OF 2 ORDERS Performed By: #### L IRONP, LFER #### [facility] [address] [place], [place] [phone] TIBC 335 ug/dL Normal 250-445 [facility] Comment on above: Order Comment: 2 OF 2 ORDERS Performed By: #### L IRONP, LFER #### [facility] [address] [place] [address] 45722 LDH (LD)on 08-29-2017 LDH 106 U/L Normal 84-246 [facility] Comment on above: Order Comment: 2 OF 2 ORDERS Is patient fasting? YES Performed By: #### L LDH, LURIC, LCMP, LGFRP #### [facility] [address] [place] [address] 68486 URIC ACID BLDon 08-29-2017 Urate mass conc 4.3 mg/dL Normal 4.0-7.5 [facility] Comment on above: Order Comment: 2 OF 2 ORDERS Is patient fasting? YES Performed By: #### L LDH, LURIC, LCMP, LGFRP #### [facility] [address] [place] [address]2072 Vital Signs Date Time Vital Sign Value Performing Clinician Facility 10-29-2024 20:17-0400 Body temperature 99.6 [degF] Dr. Mayco Fenton MD Work Phone: [facility] 10-29-2024 20:17-0400 Diastolic blood pressure 71 mm[Hg] Dr. Mayco Fenton MD Work Phone: [facility] 10-29-2024 20:17-0400 Heart rate 102 /min Dr. Mayco Fenton MD Work Phone: [facility] 10-29-2024 20:17-0400 Respiratory rate 20 /min Dr. Mayco Fenton MD Work Phone: [facility] 10-29-2024 20:17-0400 SaO2% (BldA) [Mass fraction] 100 % Dr. Mayco Fenton MD Work Phone: [facility] 10-29-2024 20:17-0400 Systolic blood pressure 151 mm[Hg] Dr. Mayco Fenton MD Work Phone: [facility] 10-29-2024 16:40-0400 Body height 177.[address] Mayco Fenton MD Work Phone: [facility] 10-29-2024 16:40-0400 Body mass index (BMI) [Ratio] 30.5 kg/m2 Dr. Mayco Fenton MD Work Phone: [facility] 10-29-2024 16:40-0400 Body weight 96.[address] Mayco Fenton MD Work Phone: [facility] 09-20-2024 15:34-0400 Body mass index (BMI) [Ratio] 31 kg/m2 Giovanna Cook MD Work Phone: [facility] 09-20-2024 15:34-0400 Body temperature 97.9 [degF] Giovanna Cook MD Work Phone: [facility] 09-20-2024 15:34-0400 Body weight 98 kg Giovanna Cook MD Work Phone: [facility] 09-20-2024 15:34-0400 Diastolic blood pressure 77 mm[Hg] Giovanna Cook MD Work Phone: [facility] 09-20-2024 15:34-0400 Heart rate 86 /min Giovanna Cook MD Work Phone: [facility] 09-20-2024 15:34-0400 Respiratory rate 16 /min Giovanna Cook MD Work Phone: [facility] 09-20-2024 15:34-0400 SaO2% (BldA) [Mass fraction] 97 % Giovanna Cook MD Work Phone: [facility] 09-20-2024 15:34-0400 Systolic blood pressure 135 mm[Hg] Giovanna Cook MD Work Phone: [facility] 04-19-2024 16:23-0500 Body height 177.8 cm Heribertokeshav Davalos DO Work Phone: [facility] 04-19-2024 16:23-0500 Body mass index (BMI) [Ratio] 30.99 kg/m2 Heriberto Kingens DO Work Phone: [facility] 04-19-2024 16:23-0500 Body temperature 97.3 [degF] Heriberto Davalos DO Work Phone: [facility] 04-19-2024 16:23-0500 Body weight 97.98 kg Heriberto Davalos DO Work Phone: [facility] 04-19-2024 16:23-0500 Diastolic blood pressure 82 mm[Hg] Heriberto Davalos DO Work Phone: [facility] 04-19-2024 16:23-0500 Heart rate 77 /min Heriberto Davalos DO Work Phone: [facility] 04-19-2024 16:23-0500 Systolic blood pressure 155 mm[Hg] Heriberto Davalos DO Work Phone: [facility] 03-03-2024 16:05-0500 Body height 177.8 cm Heriberto Davalos DO Work Phone: [facility] 03-03-2024 16:05-0500 Body mass index (BMI) [Ratio] 31.08 kg/m2 Heriberto Davalos DO Work Phone: [facility] 03-03-2024 16:05-0500 Body temperature 97.2 [degF] Heriberto Davalos DO Work Phone: [facility] 03-03-2024 16:05-0500 Body weight 98.25 kg Heriberto Davalos DO Work Phone: [facility] 03-03-2024 16:05-0500 Diastolic blood pressure 73 mm[Hg] Heriberto Davalos DO Work Phone: [facility] 03-03-2024 16:05-0500 Heart rate 84 /min Heriberto Davalos DO Work Phone: [facility] 03-03-2024 16:05-0500 Systolic blood pressure 118 mm[Hg] Heriberto Davalos DO Work Phone: [facility] 02-13-2024 15:48-0500 Body height 177.8 cm Goyo Snider MD Work Phone: [facility] 02-13-2024 15:48-0500 Body mass index (BMI) [Ratio] 30.75 kg/m2 Goyo Snider MD Work Phone: [facility] 02-13-2024 15:48-0500 Body weight 97.21 kg Goyo Snider MD Work Phone: [facility] 02-07-2024 16:00-0500 Body temperature 98.1 [degF] Phillip Dumont DO Work Phone: [facility] 02-07-2024 16:00-0500 Diastolic blood pressure 87 mm[Hg] Phillip Dumont DO Work Phone: [facility] 02-07-2024 16:00-0500 Heart rate 87 /min Phillip Dumont DO Work Phone: [facility] 02-07-2024 16:00-0500 Respiratory rate 18 /min Phillip Dumont DO Work Phone: [facility] 02-07-2024 16:00-0500 SaO2% (BldA) [Mass fraction] 99 % Phillip Dumont DO Work Phone: [facility] 02-07-2024 16:00-0500 Systolic blood pressure 162 mm[Hg] Phillip Dumont DO Work Phone: [facility] 02-07-2024 13:41-0500 Body height 177.8 cm Phillip Dumont DO Work Phone: [facility] 02-07-2024 13:41-0500 Body mass index (BMI) [Ratio] 29.41 kg/m2 Phillip Dumont DO Work Phone: [facility] 02-07-2024 13:41-0500 Body weight 92.99 kg Phillip Dumont DO Work Phone: [facility] 12-10-2023 15:40-0400 Body height 177.8 cm Mahesh [place] [employer] Work Phone: [facility] 12-10-2023 15:40-0400 Body mass index (BMI) [Ratio] 30.85 kg/m2 Mahesh [place] [employer] Work Phone: [facility] 12-10-2023 15:40-0400 Body weight 97.52 kg Mahesh [place] [employer] Work Phone: [facility] 12-10-2023 15:40-0400 Diastolic blood pressure 92 mm[Hg] Mahesh [place] [employer] Work Phone: [facility] 12-10-2023 15:40-0400 Heart rate 82 /min Mahesh [place] [employer] Work Phone: [facility] 12-10-2023 15:40-0400 Systolic blood pressure 165 mm[Hg] Mahesh [place] [employer] Work Phone: [facility] 11-25-2023 16:15-0400 Body height 177.8 cm Heriberto Davalos DO Work Phone: [facility] 11-25-2023 16:15-0400 Body mass index (BMI) [Ratio] 31.14 kg/m2 Heriberto Davalos DO Work Phone: [facility] 11-25-2023 16:15-0400 Body temperature 97.2 [degF] Heriberto Davalos DO Work Phone: [facility] 11-25-2023 16:15-0400 Body weight 98.43 kg Heriberto Davalos DO Work Phone: [facility] 11-25-2023 16:15-0400 Diastolic blood pressure 68 mm[Hg] Heriberto Davalos DO Work Phone: [facility] 11-25-2023 16:15-0400 Heart rate 83 /min Heriberto Davalos DO Work Phone: [facility] 11-25-2023 16:15-0400 Systolic blood pressure 110 mm[Hg] Heriberto Davalos DO Work Phone: [facility] 11-12-2023 15:30-0400 Body height 177.8 cm Goyo Snider MD Work Phone: [facility] 11-12-2023 15:30-0400 Body mass index (BMI) [Ratio] 30.29 kg/m2 Goyo Snider MD Work Phone: [facility] 11-12-2023 15:30-0400 Body weight 95.75 kg Goyo Snider MD Work Phone: [facility] 11-11-2023 09:27-0400 Body height 177.8 cm Heriberto Davalos DO Work Phone: [facility] 11-11-2023 09:27-0400 Body mass index (BMI) [Ratio] 30.13 kg/m2 Heriberto Davalos DO Work Phone: [facility] 11-11-2023 09:27-0400 Body temperature 97.81 [degF] Heriberto Davalos DO Work Phone: [facility] 11-11-2023 09:27-0400 Body weight 95.25 kg Heriberto Davalos DO Work Phone: [facility] 11-11-2023 09:27-0400 Diastolic blood pressure 70 mm[Hg] Heriberto Davalos DO Work Phone: [facility] 11-11-2023 09:27-0400 Heart rate 79 /min Heriberto Davalos DO Work Phone: [facility] 11-11-2023 09:27-0400 Systolic blood pressure 105 mm[Hg] Heriberto Davalos DO Work Phone: [facility] 10-28-2023 16:02-0400 Body height 177.8 cm Heriberto Davalos DO Work Phone: [facility] 10-28-2023 16:02-0400 Body mass index (BMI) [Ratio] 32.43 kg/m2 Heriberto Davalos DO Work Phone: [facility] 10-28-2023 16:02-0400 Body temperature 98.6 [degF] Heriberto Davalos DO Work Phone: [facility] 10-28-2023 16:02-0400 Body weight 102.51 kg Heriberto Davalos DO Work Phone: [facility] 10-28-2023 16:02-0400 Diastolic blood pressure 76 mm[Hg] Heriberto Davalos DO Work Phone: [facility] 10-28-2023 16:02-0400 Heart rate 92 /min Heriberto Davalos DO Work Phone: [facility] 10-28-2023 16:02-0400 Systolic blood pressure 117 mm[Hg] Heriberto Davalos DO Work Phone: [facility] 10-27-2023 16:00-0400 Diastolic blood pressure 74 mm[Hg] Phillip Bernal MD [facility] 10-27-2023 16:00-0400 Heart rate 98 /min Phillip Bernal MD [facility] 10-27-2023 16:00-0400 Respiratory rate 17 /min Phillip Bernal MD [facility] 10-27-2023 16:00-0400 SaO2% (BldA) [Mass fraction] 99 % Phillip Bernal MD [facility] 10-27-2023 16:00-0400 Systolic blood pressure 155 mm[Hg] Phillip Bernal MD [facility] 10-27-2023 11:46-0400 Body height 177.8 cm Phillip Bernal MD [facility] 10-27-2023 11:46-0400 Body mass index (BMI) [Ratio] 31.57 kg/m2 Phillip Bernal MD [facility] 10-27-2023 11:46-0400 Body temperature 97.7 [degF] Phillip Bernal MD [facility] 10-27-2023 11:46-0400 Body weight 99.79 kg Phillip Bernal MD [facility] 07-23-2023 16:02-0400 Body height 177.8 cm Heriberto Davalos DO Work Phone: [facility] 07-23-2023 16:02-0400 Body mass index (BMI) [Ratio] 32.28 kg/m2 Heriberto Davalos DO Work Phone: [facility] 07-23-2023 16:02-0400 Body temperature 98.01 [degF] Heriberto Davalos DO Work Phone: [facility] 07-23-2023 16:02-0400 Body weight 102.06 kg Heriberto Davalos DO Work Phone: [facility] 07-23-2023 16:02-0400 Diastolic blood pressure 66 mm[Hg] Heriberto Davalos DO Work Phone: [facility] 07-23-2023 16:02-0400 Heart rate 100 /min Heriberto Davalos DO Work Phone: [facility] 07-23-2023 16:02-0400 Systolic blood pressure 97 mm[Hg] Heriberto Davalos DO Work Phone: [facility] 04-23-2023 16:03-0500 Body height 177.8 cm Heriberto Davalos DO Work Phone: [facility] 04-23-2023 16:03-0500 Body mass index (BMI) [Ratio] 34.58 kg/m2 Heriberto Davalos DO Work Phone: [facility] 04-23-2023 16:03-0500 Body temperature 98.01 [degF] Heriberto Davalos DO Work Phone: [facility] 04-23-2023 16:03-0500 Body weight 109.32 kg Heriberto Davalos DO Work Phone: [facility] 04-23-2023 16:03-0500 Diastolic blood pressure 79 mm[Hg] Heriberto Davalos DO Work Phone: [facility] 04-23-2023 16:03-0500 Heart rate 76 /min Heriberto Davalos DO Work Phone: [facility] 04-23-2023 16:03-0500 Systolic blood pressure 115 mm[Hg] Heriberto Davalos DO Work Phone: [facility] 03-25-2023 15:56-0500 Body height 177.8 cm Heriberto Davalos DO Work Phone: [facility] 03-25-2023 15:56-0500 Body mass index (BMI) [Ratio] 35.3 kg/m2 Heriberto Davalos DO Work Phone: [facility] 03-25-2023 15:56-0500 Body temperature 98.01 [degF] Heriberto Davalos DO Work Phone: [facility] 03-25-2023 15:56-0500 Body weight 111.58 kg Heriberto Davalos DO Work Phone: [facility] 03-25-2023 15:56-0500 Diastolic blood pressure 80 mm[Hg] Heriberto Kingens DO Work Phone: [facility] 03-25-2023 15:56-0500 Heart rate 81 /min Heriberto Davalos DO Work Phone: [facility] 03-25-2023 15:56-0500 Systolic blood pressure 124 mm[Hg] Heriberto Davalos DO Work Phone: [facility] 03-04-2023 16:07-0500 Body height 177.8 cm Heriberto Davalos DO Work Phone: [facility] 03-04-2023 16:07-0500 Body mass index (BMI) [Ratio] 35.58 kg/m2 Heriberto Davalos DO Work Phone: [facility] 03-04-2023 16:07-0500 Body temperature 97.81 [degF] Heriberto Davalos DO Work Phone: [facility] 03-04-2023 16:07-0500 Body weight 112.49 kg Heriberto Davalos DO Work Phone: [facility] 03-04-2023 16:07-0500 Diastolic blood pressure 83 mm[Hg] Heriberto Davalos DO Work Phone: [facility] 03-04-2023 16:07-0500 Heart rate 85 /min Heriberto Davalos DO Work Phone: [facility] 03-04-2023 16:07-0500 Systolic blood pressure 138 mm[Hg] Heriberto Davalos DO Work Phone: [facility] 12-23-2022 15:41-0500 Body height 177.8 cm Phillip Bernal MD Work Phone: [facility] 12-23-2022 15:41-0500 Body mass index (BMI) [Ratio] 36.45 kg/m2 Phillip Bernal MD Work Phone: [facility] 12-23-2022 15:41-0500 Body weight 115.21 kg Phillip Bernal MD Work Phone: [facility] 12-23-2022 15:41-0500 Diastolic blood pressure 82 mm[Hg] Phillip Bernal MD Work Phone: [facility] 12-23-2022 15:41-0500 Heart rate 96 /min Phillip Bernal MD Work Phone: [facility] 12-23-2022 15:41-0500 Systolic blood pressure 120 mm[Hg] Phillip Bernal MD Work Phone: [facility] 07-03-2022 16:25-0400 Body height 177.8 cm Phillip Bernal Work Phone: [facility] DO Work Phone: 07-03-2022 16:25-0400 Body mass index (BMI) [Ratio] 36.3 kg/m2 Phillip Bernal Work Phone: [facility] DO Work Phone: 07-03-2022 16:25-0400 Body surface area Derived from formula 2.31 m2 Phillip Bernal Work Phone: [facility] DO Work Phone: 07-03-2022 16:25-0400 Body temperature 98 [degF] Phillip Bernal Work Phone: [facility] DO Work Phone: 07-03-2022 16:25-0400 Body weight 114.76 kg Phillip Bernal Work Phone: [facility] DO Work Phone: 07-03-2022 16:25-0400 Diastolic blood pressure 80 mm[Hg] Phillip Bernal Work Phone: [facility] DO Work Phone: 07-03-2022 16:25-0400 Heart rate 77 /min Phillip Bernal Work Phone: [facility] DO Work Phone: 07-03-2022 16:25-0400 Systolic blood pressure 120 mm[Hg] Phillip Bernal Work Phone: [facility] DO Work Phone: 12-26-2021 16:27-0500 Body height 177.8 cm Phillip Bernal Work Phone: [facility] Work Phone: 12-26-2021 16:27-0500 Body mass index (BMI) [Ratio] 36.45 kg/m2 Phillip Bernal Work Phone: [facility] Work Phone: 12-26-2021 16:27-0500 Body surface area Derived from formula 2.31 m2 Phillip Bernal Work Phone: [facility] Work Phone: 12-26-2021 16:27-0500 Body weight 115.21 kg Phillip Bernal Work Phone: [facility] Work Phone: 12-26-2021 16:27-0500 Diastolic blood pressure 64 mm[Hg] Phillip Bernal Work Phone: [facility] Work Phone: 12-26-2021 16:27-0500 Heart rate 88 /min Phillip Bernal Work Phone: [facility] Work Phone: 12-26-2021 16:27-0500 Systolic blood pressure 132 mm[Hg] Phillip Bernal Work Phone: [facility] Work Phone: 12-06-2021 14:41-0400 Body height 177.8 cm Phillip Bernal Work Phone: [facility] Work Phone: 12-06-2021 14:41-0400 Body mass index [...] formula 2.33 m2 Phillip Bernal Work Phone: [facility] Work Phone: 09-05-2021 15:58-0400 Body weight 117.94 kg Phillip Bernal Work Phone: [facility] Work Phone: 09-05-2021 15:58-0400 Diastolic blood pressure 68 mm[Hg] Phillip Bernal Work Phone: [facility] Work Phone: 09-05-2021 15:58-0400 Heart rate 88 /min Phillip Bernal Work Phone: [facility] Work Phone: 09-05-2021 15:58-0400 Systolic blood pressure 128 mm[Hg] Phillip Bernal Work Phone: [facility] Work Phone: 06-20-2021 15:54-0400 Body height 177.8 cm Phillip Bernal Work Phone: [facility] DO Work Phone: 06-20-2021 15:54-0400 Body mass index (BMI) [Ratio] 37.16 kg/m2 Phillip Bernal Work Phone: [facility] [place] Work Phone: 06-20-2021 15:54-0400 Body surface area Derived from formula 2.33 m2 Phillip Bernal Work Phone: [facility] DO Work Phone: 06-20-2021 15:54-0400 Body temperature 97.4 [degF] Phillip Bernal Work Phone: [facility] DO Work Phone: 06-20-2021 15:54-0400 Body weight 117.48 kg Phillip Bernal Work Phone: [facility] DO Work Phone: 06-20-2021 15:54-0400 Diastolic blood pressure 62 mm[Hg] Phillip Bernal Work Phone: [facility] DO Work Phone: 06-20-2021 15:54-0400 Heart rate 80 /min Phillip Bernal Work Phone: [facility] DO Work Phone: 06-20-2021 15:54-0400 SaO2% (BldA) [Mass fraction] 96 % Phillip Bernal Work Phone: [facility] DO Work Phone: 06-20-2021 15:54-0400 Systolic blood pressure 112 mm[Hg] Phillip Bernal Work Phone: [facility] DO Work Phone: 05-23-2021 16:08-0400 Body height 177.8 cm Phillip Bernal Work Phone: [facility] Work Phone: 05-23-2021 16:08-0400 Body mass index (BMI) [Ratio] 37.31 kg/m2 Phillip Bernal Work Phone: [facility] Work Phone: 05-23-2021 16:08-0400 Body surface area Derived from formula 2.33 m2 Phillip Bernal Work Phone: [facility] Work Phone: 05-23-2021 16:08-0400 Body weight 117.94 kg Phillip Bernal Work Phone: [facility] Work Phone: 05-23-2021 16:08-0400 Diastolic blood pressure 64 mm[Hg] Phillip Bernal Work Phone: [facility] Work Phone: 05-23-2021 16:08-0400 Heart rate 80 /min Phillip Bernal Work Phone: [facility] Work Phone: 05-23-2021 16:08-0400 Systolic blood pressure 114 mm[Hg] Phillip Bernal Work Phone: [facility] Work Phone: 03-02-2021 16:24-0500 Body height 177.8 cm [facility] Work Phone: 03-02-2021 16:24-0500 Body mass index (BMI) [Ratio] 36.45 kg/m2 Phillip Bernal Work Phone: [facility] Work Phone: 03-02-2021 16:24-0500 Body surface area Derived from formula 2.31 m2 Phillip Bernal Work Phone: [facility] [place] Work Phone: 03-02-2021 16:24-0500 Body weight 115.21 kg Phillip Bernal Work Phone: [facility] [place] Work Phone: 11-30-2020 15:56-0400 Body height 180.34 cm Phillip Bernal Work Phone: [facility] DO Work Phone: 11-30-2020 15:56-0400 Body mass index (BMI) [Ratio] 35.84 kg/m2 Phillip Bernal Work Phone: [facility] DO Work Phone: 11-30-2020 15:56-0400 Body surface area Derived from formula 2.35 m2 Phillip Bernal Work Phone: [facility] DO Work Phone: 11-30-2020 15:56-0400 Body temperature 97.2 [degF] Phillip Bernal Work Phone: [facility] DO Work Phone: 11-30-2020 15:56-0400 Body weight 116.58 kg Phillip Bernal Work Phone: [facility] DO Work Phone: 11-30-2020 15:56-0400 Diastolic blood pressure 70 mm[Hg] Phillip Bernal Work Phone: [facility] DO Work Phone: 11-30-2020 15:56-0400 Heart rate 92 /min Phillip Bernal Work Phone: [facility] DO Work Phone: 11-30-2020 15:56-0400 Systolic blood pressure 110 mm[Hg] Phillip Bernal Work Phone: [facility] DO Work Phone: 11-30-2020 15:56-0400 0 1 Phillip Bernal Work Phone: [facility] DO Work Phone: Comment on above: PHQ-9 TS 11-22-2020 16:04-0400 Body height 180.34 cm Phillip Bernal Work Phone: [facility] Work Phone: 11-22-2020 16:04-0400 Body mass index (BMI) [Ratio] 35.57 kg/m2 Phillip Bernal Work Phone: [facility] Work Phone: 11-22-2020 16:04-0400 Body surface area Derived from formula 2.34 m2 Phillip Bernal Work Phone: [facility] Work Phone: 11-22-2020 16:04-0400 Body weight 115.67 kg Phillip Bernal Work Phone: [facility] Work Phone: 11-22-2020 16:04-0400 Diastolic blood pressure 64 mm[Hg] Phillip Bernal Work Phone: [facility] Work Phone: 11-22-2020 16:04-0400 Heart rate 84 /min Phillip Bernal Work Phone: [facility] Work Phone: 11-22-2020 16:04-0400 Systolic blood pressure 116 mm[Hg] Phillip Bernal Work Phone: [facility] Work Phone: 12-06-2019 18:00-0400 BMI (Body Mass Index) 35.57 kg/m2 Marco Otoole [facility] Work Phone: 12-06-2019 18:00-0400 Body weight 115.67 kg Marco Otoole [facility] Work Phone: 12-06-2019 18:00-0400 BSA (Body Surface Area) 2.34 m2 Marco Otoole [facility] Work Phone: 12-06-2019 18:00-0400 Height 180.34 cm Marco Otoole [facility] Work Phone: 10-06-2019 18:03-0400 BMI (Body Mass Index) 35.98 kg/m2 Rudi [place] [facility] Work Phone: 10-06-2019 18:03-0400 Body weight 117.03 kg Rudi [place] [facility] Work Phone: 10-06-2019 18:03-0400 BP Diastolic 72 mm[Hg] Rudi [place] [facility] Work Phone: 10-06-2019 18:03-0400 BP Systolic 118 mm[Hg] Rudi [facility] Work Phone: 10-06-2019 18:03-0400 BSA (Body Surface Area) 2.35 m2 Rudi [facility] Work Phone: 10-06-2019 18:03-0400 Height 180.34 cm Rudi [place] [facility] Work Phone: 10-06-2019 18:03-0400 Pulse (Heart Rate) 80 /min uRdi Dee Work Phone: Encounters Encounter Date Encounter Type Care Provider Facility Start: 10-29-2024 Evaluation and manag ement of inpatient Dr. Ruslan Adams DO -Intensive Care Unit Work Phone: Start: 09-22-2024 End: 09-22-[address] Mayco Fenton MD Work Phone: -Laboratory Specimen Start: 09-22-2024 End: 09-22-[address] Javy Lynch DPM -Laboratory Specimen Work Phone: Start: 09-22-2024 End: 09-22-2024 ambulatory Javy Lynch Facility:[facility] Start: 09-20-2024 End: 09-20-2024 Office outpatient visit 25 minutes Giovanna Cook MD Work Phone: [facility] Comment on above: Hereditary hemochrom atosis (Primary Dx); Large granular lymphocytic leukemia (Multi); Ankylosing spondylitis of thoracolumbar region (Multi); Recurrent acute deep vein thrombosis (DVT) of both lower extremities; Type 2 diabetes mellitus without complication, without long-term current use of insulin; Benign essential hypertension; Mixed hyperlipidemia Start: 09-20-2024 End: 09-20-2024 ambulatory GIOVANNA COOK [facility] Start: 09-20-2024 Encounter for genera l adult medical examination without abnormal findings Mayco Fenton [facility] Start: 09-16-2024 End: 09-16-2024 ambulatory [facility] Start: 09-09-2024 End: 09-09-[address] Mayco Fenton MD Work Phone: -Laboratory [facility] Start: 09-09-2024 End: 09-09-[address] Mayco Fenton MD -Laboratory [facility] Start: 09-09-2024 End: 09-09-2024 ambulatory Mayco Fenton Facility:[facility] Start: 06-22-2024 End: 06-22-2024 Patient encounter procedure Ariel GUSTAFSON [facility] Work Phone: Start: 06-22-2024 End: 06-22-2024 ambulatory Ariel GUSTAFSON Facility[place] Start: 04-19-2024 End: 04-19-2024 Office outpatient visit 15 minutes Heriberto Davalos DO Work Phone: [facility] Comment on above: Neuropathy (Primary Dx); Type 2 diabetes mellitus without complication, without long-term current use of insulin (Multi); Benign essential hypertension; Stage 3b chronic kidney disease (Multi); Type 2 diabetes mellitus with stage 3b chronic kidney disease, without long-term current use of insulin (Multi); Mixed hyperlipidemia; Thyroid disorder screening; Hyperuricemia; Prostate cancer screening Start: 04-19-2024 End: 04-19-2024 ambulatory [facility] Amb[facility] Start: 03-03-2024 End: 03-03-2024 Office outpatient visit 15 minutes Heriberto Davalos DO Work Phone: [facility] Comment on above: Neuropathy (Primary Dx); Hypomagnesemia Start: 03-03-2024 End: 03-03-2024 ambulatory [facility] Amb[facility] Start: 02-13-2024 End: 02-13-2024 Office outpatient visit 15 minutes Goyo Snider MD Work Phone: [facility] Comment on above: Thyroid nodule (Prim bud Dx) Start: 02-13-2024 End: 02-13-2024 ambulatory GOYO SNIDER [facility] Ambulatory Start: 02-07-2024 End: 02-07-2024 Emergency department patient visit Phillip Dumont DO Work Phone: [facility] Comment on above: Viral upper respirat ory illness (Primary Dx) Start: 02-03-2024 End: 02-03-2024 ambulatory [facility] Ambulatory Start: 01-21-2024 End: 01-21-2024 Subsequent hospital visit by physician Cooper [id number] Ultrasound [facility] Comment on above: Thyroid nodule Start: 01-21-2024 End: 01-21-2024 ambulatory GOYO SNIDER [facility] Start: 12-10-2023 End: 12-10-2023 Office outpatient new 45 minutes Maheshapolonia Magañaing [employer] Work Phone: [facility] 1 Comment on above: Nephrolithiasis Start: 12-10-2023 End: 12-10-2023 ambulatory [facility] Ambulatory Start: 11-25-2023 End: 11-25-2023 Office outpatient visit 15 minutes Heriberto Davalos DO Work Phone: [facility] Comment on above: Benign essential hyp ertension (Primary Dx); Type 2 diabetes mellitus with stage 3b chronic kidney disease, without long-term current use of insulin (Multi); Hyperuricemia; Nephrolithiasis; Thyroid nodule Start: 11-25-2023 End: 11-25-2023 ambulatory [facility] Ambulatory Start: 11-13-2023 End: 11-13-2023 ambulatory [facility] Start: 11-13-2023 End: 11-13-2023 Subsequent hospital visit by physician Cooper [id number] X-Ray 1 [facility] Comment on above: Nephrolithiasis Start: 11-12-2023 End: 11-12-2023 Office consultation new/estab patient 60 min Goyo Snider MD Work Phone: [facility] Comment on above: Thyroid nodule Start: 11-12-2023 End: 11-12-2023 [facility] Start: 11-11-2023 End: 11-11-2023 Office outpatient visit 15 minutes Heriberto Davalos DO Work Phone: [facility] Comment on above: Nephrolithiasis (Jenny alessandra Dx); Benign essential hypertension; Stage 3b chronic kidney disease (Multi); Type 2 diabetes mellitus with stage 3b chronic kidney disease, without long-term current use of insulin (Multi); Left eye pain Start: 11-11-2023 End: 11-11-2023 ambulatory HERIBERTO A [facility] Ambulatory Start: 10-28-2023 End: 10-28-2023 Office outpatient visit 25 minutes Heriberto Davalos DO Work Phone: [facility] Comment on above: Type 2 diabetes sana itus with stage 3b chronic kidney disease, without long-term current use of insulin (Multi) (Primary Dx); Benign essential hypertension; Stage 3b chronic kidney disease (Multi); Mixed hyperlipidemia; Hyperuricemia; Nephrolithiasis Start: 10-28-2023 End: 10-28-2023 ambulatory HERIBERTO Fields [facility] Ambulatory Start: 10-27-2023 End: 10-27-2023 Emergency department patient visit HERIBERTO Fields DAVALOS [facility] Comment on above: Nephrolithiasis ([facility] alessandra Dx) Start: 08-02-2023 End: 08-02-2023 Subsequent hospital visit by physician Marty Ultrasound 1 [facility] Comment on above: Multinodular goiter Start: 07-23-2023 End: 07-23-2023 Office outpatient visit 25 minutes Heriberto Davalos DO Work Phone: [facility] Comment on above: Type 2 diabetes sana itus with stage 3b chronic kidney disease, without long-term current use of insulin (Multi) (Primary Dx); Benign essential hypertension; Multinodular goiter; Prostate cancer screening; Thyroid disorder screening; Mixed hyperlipidemia; Hyperuricemia; Stage 3b chronic kidney disease (Multi) Start: 04-23-2023 End: 04-23-2023 Office outpatient visit 15 minutes Heriberto Davalos DO Work Phone: [facility] Comment on above: Type 2 diabetes sana itus with stage 3b chronic kidney disease, without long-term current use of insulin (CMS/HCC) (Primary Dx); Ankylosing spondylitis of thoracolumbar region (CMS/HCC) Start: 03-25-2023 End: 03-25-2023 Office outpatient visit 15 minutes Heriberto Davalos DO Work Phone: [facility] Comment on above: Type 2 diabetes sana itus with stage 3b chronic kidney disease, without long-term current use of insulin (CMS/HCC) (Primary Dx); Neck pain on left side; Benign essential hypertension Start: 03-04-2023 End: 03-04-2023 Office outpatient visit 15 minutes Heriberto Davalos DO Work Phone: [facility] Comment on above: Type 2 diabetes sana itus with diabetic polyneuropathy, without long-term current use of insulin ([facility]) (Primary Dx); Ankylosing spondylitis of thoracolumbar region ([facility]); Benign essential hypertension; Asymptomatic hyperuricemia; Thyroid disorder screening; Neuropathy Start: 01-31-2023 End: 02-01-2023 ambulatory TRISHA SIMONS MD Facility:[facility] Start: 12-23-2022 End: 12-23-2022 Office outpatient visit 25 minutes Phillip Bernal MD Work Phone: [facility] Comment on above: Ankylosing spondylit is of thoracolumbar region ([facility]) (Primary Dx); Benign essential hypertension; Asymptomatic hyperuricemia; Type 2 diabetes mellitus with other specified complication, without long-term current use of insulin ([facility]); Hyperlipidemia, unspecified hyperlipidemia type Start: 12-23-2022 Patient encounter status Cristin Davalos DO Work Phone: [facility] Work Phone: Start: 11-03-2022 Rx Renewal Phillip Bernal Work Phone: [facility] DO Work Phone: Start: 10-14-2022 AUDIT Phillip Bernal Work Phone: [facility] DO Work Phone: Start: 09-19-2022 Chart Update Phillip Bernal Work Phone: [facility] DO Work Phone: Start: 09-18-2022 Chart Update Phillip Bernal Work Phone: [facility] DO Work Phone: Start: 09-18-[address] Phillip Bernal Jr Facility:[facility] Start: 09-18-[address] Phillip Bernal Facility:[id number] Start: 09-05-2022 Rx Renewal Phillip Bernal Work Phone: [facility] DO Work Phone: Start: 07-17-2022 Rx Renewal Phillip Bernal Work Phone: [facility] DO Work Phone: Start: 06-27-2022 Chart Update Phillip Bernal Work Phone: [facility] DO Work Phone: Start: 05-27-2022 AUDIT Phillip Bernal Work Phone: [facility] DO Work Phone: Start: 05-17-2022 Rx Renewal Phillip Bernal Work Phone: [facility] DO Work Phone: Start: 04-24-2022 Rx Renewal Phillip Bernal Work Phone: [facility] DO Work Phone: Start: 02-05-2022 Rx [facility] Work Phone: Start: 01-05-2022 Chart Update Phillip Bernal Work Phone: [facility] DO Work Phone: Start: 12-31-2021 Rx Renewal Phillip Bernal Work Phone: [facility] DO Work Phone: Start: 12-26-2021 Office outpatient vi sit 25 minutes Phillip Bernal Work Phone: [facility] Work Phone: Start: 12-21-2021 Chart Update Phillip Bernal Work Phone: [facility] Work Phone: Start: 12-20-[address] Phillip Bernal Facility:[id number] Start: 12-10-2021 Rx Renewal Phillip Bernal Work Phone: [facility] Work Phone: Start: 12-06-2021 AUDIT Phillip Bernal Work Phone: [facility] Work Phone: Start: 09-05-2021 FUV, Provider: Rudi Abdi, Status: Pen, Time: 4:00 PM Phillip Bernal Work Phone: [facility] Work Phone: Start: 09-05-2021 Office outpatient vi sit 25 minutes Phillip Bernal Work Phone: [facility] Work Phone: Start: 09-04-2021 AUDIT Phillip Bernal Work Phone: [facility] Work Phone: Start: 08-26-2021 Rx Renewal Phillip Bernal Work Phone: [facility] DO Work Phone: Start: 08-13-2021 Rx Renewal Phillip Bernal Work Phone: [facility] DO Work Phone: Start: 07-29-2021 Rx Renewal Phillip Bernal Work Phone: [facility] Work Phone: Start: 07-03-2021 Rx Renewal Phillip Bernal Work Phone: [facility] DO Work Phone: Start: 06-20-2021 FUV, Provider: Phillip Bernal, Status: Pen, Time: 4:00 PM Phillip Bernal Work Phone: [facility] DO Work Phone: Start: 06-20-2021 Office outpatient vi sit 15 minutes Phillip Bernal Work Phone: [facility] DO Work Phone: Start: 06-19-2021 Chart Update Phillip Bernal Work Phone: [facility] DO Work Phone: Start: 06-05-2021 Rx Renewal Phillip Bernal Work Phone: [facility] DO Work Phone: Start: 05-23-2021 FUV, [...] 04-30-2021 Rx Renewal Phillip Bernal Work Phone: [facility] DO Work Phone: Start: 04-13-2021 Patient encounter procedure Phililp Bernal Work Phone: [facility] [place] Work Phone: Start: 04-02-2021 Rx Renewal Phillip Bernal Work Phone: -[facility] DO Work Phone: Start: 03-02-2021 Patient encounter procedure Phillip Patricia Bernal Work Phone: -[facility] [place] Work Phone: Start: 02-04-2021 Rx Renewal Phillip Bernal Work Phone: [facility] DO Work Phone: Start: 01-26-2021 Rx Renewal Phillip Patricia Bernal Work Phone: [facility] DO Work Phone: Start: 11-30-2020 Office outpatient vi sit 25 minutes Phillip Bernal Work Phone: [facility] DO Work Phone: Start: 11-22-2020 FUV, Provider: Rudi Abdi, Status: Pen, Time: 4:00 PM Phillip Bernal Work Phone: [facility] Work Phone: Start: 11-22-2020 Office outpatient vi sit 25 minutes Phillip Bernal Work Phone: [facility] Work Phone: Start: 11-21-2020 AUDIT Phillip Patricia Bernal Work Phone: [facility] Work Phone: Start: 07-24-2020 Rx Renewal Phillip Bernal Work Phone: [facility] Work Phone: Start: 05-24-2020 Patient encounter procedure Rudi Abdi MD [id number] Work Phone: Start: 12-06-2019 Patient encounter procedure Marco Otoole [facility] [place] Work Phone: Start: 10-06-2019 Patient encounter procedure Rudi Abdi [facility] Work Phone: Start: 04-01-2019 Patient encounter procedure Rudi [facility] Work Phone: Start: 12-04-2018 Patient encounter procedure Rudi Abdi [facility] Work Phone: Start: 10-01-2018 Patient encounter procedure Rudi Abdi [facility] Work Phone: Start: 04-02-2018 Patient encounter procedure Rudi Abdi [facility] Work Phone: Start: 12-18-2017 Patient encounter procedure Rdui Abdi [facility] Work Phone: Start: 09-16-2017 Patient encounter procedure Rudi Abdi [facility] Work Phone: Start: 06-11-2017 Patient encounter procedure Rudi Abdi [facility] Work Phone: Start: 06-06-2017 Ambulatory PROVIDER UNKNOWN Facili ty:[id number] Start: 05-23-2017 Ambulatory FLAQUITO ABIOSE Facility :[id number] Start: 05-19-2017 Ambulatory FLAQUITO ABIOSE Facility :[id number] Start: 05-02-2017 Patient encounter procedure Rudi Abdi [facility] Work Phone: Patient encounter status Phillpi Bernal Work Phone: [facility] Work Phone: Procedures Date Procedure Procedure Detail [...] above: Order Comment: CONSE RVATION CBN: NO [place]: MAIN Transfusion Status: CONSERVATION Blood Bank service requested: TYPE AND SCREEN Comments To Phleb: PATIENT IN SDS Performed By: #### B [id number] #### Test performed at: [place] [id number] Start: 01-26-2020 Antibody screen Comment on above: Order Comment: Trans fusion Status: CONSERVATION Blood Bank service requested: TYPE AND SCREEN Comments To Phleb: pre-op in PAT Performed By: #### B 100.0201 #### Test performed at: [place] [id number] Start: 10-05-2019 IO glucose, blood, f oscar [...] in detection of prostate cancer. Performed at: [facility] - [address] [place] [id number] Performed By: #### L ELANA WILLSON #### [facility] Laboratory [address] [place] [address] Start: 11-24-2010 Total colonoscopy Phillip Patricia Dolores [...] DTaP/Tdap/Td Vaccines (3 - Td or Tdap) [facility] Start: 09-19-2025 End: 09-19-2025 Patient encounter procedure 09/19/2025 4:40 PM EDT Office Visit [facility] [id number] [place] [address] Dr [address]ierrez [address] [place] [phone] Giovanna Cook MD [address] [place] [address] Dr Gutierrez [address] [place] [address] [facility] Start: 09-19-2025 End: 03-23-2026 CBC W Auto Differential panel - Blood CBC and Auto Differential Lab Routine Large granular lymphocytic leukemia (Multi) Hereditary hemochromatosis Expected: 09/19/2025, Expires: 03/23/2026 [facility] Service Area Work Phone: Comment on above: Expected: 09/19/2025 , Expires: 03/23/2026 Start: 09-19-2025 End: 03-23-2026 Comprehensive metabolic 2000 panel - Serum or Plasma Comprehensive metabolic panel Lab Routine Large granular lymphocytic leukemia (Multi) Expected: 09/19/2025 (Approximate), Expires: 03/23/2026 [facility] Work Phone: Comment on above: Expected: 09/19/2025 (Approximate), Expires: 03/23/2026 Start: 09-19-2025 End: 03-23-2026 Ferritin [Mass/volume] in Serum or Plasma Ferritin Lab Routine Large granular lymphocytic leukemia (Multi) Hereditary hemochromatosis Expected: 09/19/2025 (Approximate), Expires: 03/23/2026 [facility] Work Phone: Comment on above: Expected: 09/19/2025 (Approximate), Expires: 03/23/2026 Start: 09-19-2025 End: 03-23-2026 Iron and Iron binding capacity panel - Serum or Plasma Iron and TIBC Lab Routine Large granular lymphocytic leukemia (Multi) Hereditary hemochromatosis Expected: 09/19/2025, Expires: 03/23/2026 [facility] Work Phone: Comment on above: Expected: 09/19/2025 , Expires: 03/23/2026 Start: 04-13-2025 Lipid panel Lipid Panel [facility] Start: 12-31-2024 Screening for malign ant neoplasm of colon [facility] Start: 10-30-2024 [facility] Start: 10-29-2024 Amputation of toe Amputation T oe/Foot (Left) [facility] Start: 10-29-2024 Bacterial nucleic ac id assay [facility] Start: 10-29-2024 End: 10-29-2024 [facility] Start: 10-29-2024 Admission procedure [facility] Start: 10-29-2024 Ankle brachial press ure index [facility] Start: 10-29-2024 Elevation of affecte d extremity [facility] Start: 10-29-2024 Fluoroscopic guidance O.R. Fluoro fo r C-Arm [facility] Start: 10-29-2024 X-ray of foot, two views Foot 2 View s [facility] Start: 10-29-2024 Hospital admission, emergency, from emergency room, medical nature [facility] Start: 10-29-2024 End: 10-29-2024 [facility] Start: 10-29-2024 Partial thromboplast in time, activated [facility] Start: 10-29-[address] [facility] Start: 10-29-2024 Bacteria identified in Blood by Culture Blood Culture [facility] Start: 10-29-2024 Bacteria identified in Urine by Culture Urine Culture [facility] Start: 10-29-2024 Microscopic observat ion [Identifier] in Unspecified specimen by Gram stain [facility] Start: 10-29-2024 Wound Culture Wound Culture [facility] Start: 10-18-2024 Influenza vaccination [facility] Start: 10-11-2024 End: 04-19-2025 Comprehensive metabolic 2000 panel - Serum or Plasma Comprehensive metabolic panel Lab Routine Mixed hyperlipidemia Expected: 10/11/2024 (Approximate), Expires: 04/19/2025 [facility] Work Phone: Comment on above: Expected: 10/11/2024 (Approximate), Expires: 04/19/2025 Start: 10-11-2024 End: 04-19-2025 Hemoglobin A1c/Hemoglobin.total in Blood Hemoglobin A1C Lab Routine Type 2 diabetes mellitus with stage 3b chronic kidney disease, without long-term current use of insulin (Multi) Expected: 10/11/2024 (Approximate), Expires: 04/19/2025 [facility] Service Area Work Phone: Comment on above: Expected: 10/11/2024 (Approximate), Expires: 04/19/2025 Start: 10-11-2024 End: 04-19-2025 Lipid 1996 panel - Serum or Plasma Lipid panel Lab Routine Mixed hyperlipidemia Expected: 10/11/2024 (Approximate), Expires: 04/19/2025 [facility] Work Phone: Comment on above: Expected: 10/11/2024 (Approximate), Expires: 04/19/2025 Start: 10-11-2024 End: 04-19-2025 Prostate specific Ag [Mass/volume] in Serum or Plasma Prostate Spec.Ag,Screen Lab Routine Prostate cancer screening Expected: 10/11/2024 (Approximate), Expires: 04/19/2025 [facility] Work Phone: Comment on above: Expected: 10/11/2024 (Approximate), Expires: 04/19/2025 Start: 10-11-2024 End: 04-19-2025 Serum Protein Electrophoresis + Immunofixation Serum Protein Electrophoresis + Immunofixation Lab Routine Neuropathy Expected: 10/11/2024 (Approximate), Expires: 04/19/2025 [facility] Work Phone: Comment on above: Expected: 10/11/2024 (Approximate), Expires: 04/19/2025 Start: 10-11-2024 End: 04-19-2025 TSH with reflex to Free T4 if abnormal TSH with reflex to Free T4 if abnormal Lab Routine Thyroid disorder screening Expected: 10/11/2024 (Approximate), Expires: 04/19/2025 [facility] Work Phone: Comment on above: Expected: 10/11/2024 (Approximate), Expires: 04/19/2025 Start: 10-11-2024 End: 04-19-2025 Urate [Mass/volume] in Serum or Plasma Uric acid Lab Routine Hyperuricemia Expected: 10/11/2024 (Approximate), Expires: 04/19/2025 [facility] Work Phone: Comment on above: Expected: 10/11/2024 (Approximate), Expires: 04/19/2025 Start: 09-20-2024 End: 09-20-2024 Patient encounter procedure 09/20/2024 3:40 PM EDT Office Visit [facility] [address] [place] [address] Dr Gutierrez [address] [place] [phone] Giovanna Cook MD [address] [place] [address] Dr [address]ierrez [address] [place], [place] [id number] [facility] Start: 09-18-2024 Lipid panel Lipid Panel [facility] Start: 09-18-2024 Prostate specific antigen measurement PSA Prostate Cancer Screening [facility] Start: 08-27-2024 End: 08-27-2024 Patient encounter procedure 08/27/2024 3:45 PM EDT Office Visit [facility] [address] [place] [phone] [place] [address] [address] Department [place] [address] [facility] Start: 08-17-2024 End: 08-17-2024 Patient encounter procedure 08/17/2024 3:45 PM EDT Appointment [facility] [address] [place] [phone] [facility] Start: 08-17-2024 End: 02-15-2025 US Thyroid gland US thyroid Imaging Routine Thyroid nodule Expected: 08/17/2024, Expires: 02/15/2025 [facility] Service Area Work Phone: Comment on above: Expected: 08/17/2024 , Expires: 02/15/2025 Start: 07-11-2024 Hemoglobin A1c measurement Diabetes: Hemoglobin A1C [facility] Start: 04-19-2024 End: 04-19-2024 Patient encounter procedure 04/19/2024 4:00 PM EST Office Visit [facility] [address] [place] [address] [place] [address] [place] [address] [facility] Start: 03-21-2024 End: 10-27-2024 CBC W Auto Differential panel - Blood CBC and Auto Differential Lab Routine Benign essential hypertension Mixed hyperlipidemia Expected: 03/21/2024 (Approximate), Expires: 10/27/2024 [facility] Service Area Work Phone: Comment on above: Expected: 03/21/2024 (Approximate), Expires: 10/27/2024 Start: 03-21-2024 End: 10-27-2024 Comprehensive metabolic 2000 panel - Serum or Plasma Comprehensive metabolic panel Lab Routine Benign essential hypertension Mixed hyperlipidemia Expected: 03/21/2024 (Approximate), Expires: 10/27/2024 [facility] Work Phone: Comment on above: Expected: 03/21/2024 (Approximate), Expires: 10/27/2024 Start: 03-21-2024 End: 10-27-2024 Hemoglobin A1c/Hemoglobin.total in Blood Hemoglobin A1C Lab Routine Type 2 diabetes mellitus with stage 3b chronic kidney disease, without long-term current use of insulin (Multi) Expected: 03/21/2024 (Approximate), Expires: 10/27/2024 [facility] Work Phone: Comment on above: Expected: 03/21/2024 (Approximate), Expires: 10/27/2024 Start: 03-21-2024 End: 10-27-2024 Lipid 1996 panel - Serum or Plasma Lipid panel Lab Routine Mixed hyperlipidemia Expected: 03/21/2024 (Approximate), Expires: 10/27/2024 [facility] Work Phone: Comment on above: Expected: 03/21/2024 (Approximate), Expires: 10/27/2024 Start: 03-21-2024 End: 10-27-2024 Microalbumin/Creatinine [Mass Ratio] in Urine Albumin-Creatinine Ratio, Urine Random Lab Routine Type 2 diabetes mellitus with stage 3b chronic kidney disease, without long-term current use of insulin (Multi) Expected: 03/21/2024 (Approximate), Expires: 10/27/2024 [facility] Work Phone: Comment on above: Expected: 03/21/2024 (Approximate), Expires: 10/27/2024 Start: 03-21-2024 End: 10-27-2024 Urate [Mass/volume] in Serum or Plasma Uric acid Lab Routine Hyperuricemia Expected: 03/21/2024 (Approximate), Expires: 10/27/2024 [facility] Work Phone: Comment on above: Expected: 03/21/2024 (Approximate), Expires: 10/27/2024 Start: 03-17-2024 End: 03-17-2024 Patient encounter procedure 03/17/2024 3:30 PM EST Office Visit [place] [phone] [facility] [address] [place] [phone] Gideon Thompson MD [address] [facility] [address] [place] [address] [place] [address] Start: 03-06-2024 Lipid panel Lipid Panel [facility] Start: 03-06-2024 Urine screening for protein Diabetes: Urine Protein Screening [facility] Start: 03-03-2024 End: 03-03-2024 Patient encounter procedure 03/03/2024 4:00 PM EST Office Visit [facility] [address] [place] [phone] [place] [address] [place] [address] [facility] Start: 03-03-2024 End: 03-03-2025 Cobalamin (Vitamin B12) [Mass/volume] in Serum or Plasma Vitamin B12 Lab Routine Neuropathy Expected: 03/03/2024 (Approximate), Expires: 03/03/2025 [facility] Work Phone: Comment on above: Expected: 03/03/2024 (Approximate), Expires: 03/03/2025 Start: 03-03-2024 End: 03-03-2025 Magnesium [Mass/volume] in Serum or Plasma Magnesium Lab Routine Hypomagnesemia Expected: 03/03/2024 (Approximate), Expires: 03/03/2025 [facility] Service Area Work Phone: Comment on above: Expected: 03/03/2024 (Approximate), Expires: 03/03/2025 Start: 02-13-2024 End: 02-13-2024 Patient encounter procedure [facility] Start: 02-03-2024 End: 02-03-2024 Patient encounter procedure 02/03/2024 1:00 PM EST Office Visit [place] [phone] [facility] [address] [place] [phone] Gideon Thompson MD [address] [facility] [address], [address] [place], [place] [phone] [place] [address] Start: 01-27-2024 Hemoglobin A1c measurement Diabetes: Hemoglobin A1C [facility] Start: 12-25-2023 End: 12-25-2023 Patient encounter procedure 12/25/2023 3:30 PM EST Office Visit [place] [phone] [facility] [address] [place] [phone] Gideon Thompson MD [address] [facility] [address] [place] [address] [place] [address] Start: 12-25-2023 Yearly Adult Physical Yearly Adult P [facility] Start: 11-26-2023 End: 11-26-2023 Patient encounter procedure 11/26/2023 9:30 AM EDT Office Visit [place] [phone] [facility] 1 [facility] [address] [place] [phone] Mahesh Santos, BED TEACHER-DIRECTOR PLANS [address] [facility] [address] [place] [address] [place] [address] Start: 11-25-2023 End: 11-25-2023 Patient encounter procedure 11/25/2023 4:00 PM EDT Office Visit [facility] Medical [facility] [address] [place] [phone] [place] [address] [address] [place], [place] [phone] [facility] Start: 11-12-2023 End: 11-12-2023 Patient encounter procedure 11/12/2023 3:30 PM EDT Office Visit [facility] [address] [place] [address] [place] [address] [address] Department [place] [address] [facility] Start: 11-12-2023 End: 11-11-2024 US Thyroid gland US thyroid Imaging Routine Thyroid nodule Expected: 11/12/2023, Expires: 11/11/2024 [facility] Service Area Work Phone: Comment on above: Expected: 11/12/2023 , Expires: 11/11/2024 Start: 11-11-2023 End: 11-10-2024 XR Abdomen Single view XR abdomen 1 view Imaging Routine Nephrolithiasis Expected: 11/11/2023, Expires: 11/10/2024 [facility] Service Area Work Phone: Comment on above: Expected: 11/11/2023 , Expires: 11/10/2024 Start: 10-28-2023 End: 10-28-2023 Patient encounter procedure 10/28/2023 4:00 PM EDT Office Visit [facility] [address] [place] [phone] [place] [address] [place] [address] [facility] Start: 10-23-2023 Hemoglobin A1c measurement Diabetes: Hemoglobin A1C [facility] Start: 10-19-2023 Influenza vaccination [facility] Start: 09-22-2023 End: 09-22-2023 Patient encounter procedure [facility] Start: 09-19-2023 End: 09-19-2023 ambulatory 09/19/2023 11:[address] [facility] [id number] [place] [address] [place] [address] [facility] Start: 09-18-2023 End: 07-22-2024 Comprehensive metabolic 2000 panel - Serum or Plasma Comprehensive metabolic panel Lab Routine Benign essential hypertension Type 2 diabetes mellitus with stage 3b chronic kidney disease, without long-term current use of insulin (Multi) Expected: 09/18/2023 (Approximate), Expires: 07/22/2024 [facility] Service Area Work Phone: Comment on above: Expected: 09/18/2023 (Approximate), Expires: 07/22/2024 Start: 09-18-2023 End: 07-22-2024 Lipid 1996 panel - Serum or Plasma Lipid panel Lab Routine Mixed hyperlipidemia Expected: 09/18/2023 (Approximate), Expires: 07/22/2024 [facility] Work Phone: Comment on above: Expected: 09/18/2023 (Approximate), Expires: 07/22/2024 Start: 09-18-2023 End: 07-22-2024 Parathyrin.intact [Mass/volume] in Serum or Plasma PTH, intact Lab Routine Stage 3b chronic kidney disease (Multi) Expected: 09/18/2023 (Approximate), Expires: 07/22/2024 [facility] Work Phone: Comment on above: Expected: 09/18/2023 (Approximate), Expires: 07/22/2024 Start: 09-18-2023 End: 07-22-2024 Phosphate [Mass/volume] in Serum or Plasma Phosphorus Lab Routine Stage 3b chronic kidney disease (Multi) Expected: 09/18/2023 (Approximate), Expires: 07/22/2024 [facility] Work Phone: Comment on above: Expected: 09/18/2023 (Approximate), Expires: 07/22/2024 Start: 09-18-2023 End: 07-22-2024 Prostate specific Ag [Mass/volume] in Serum or Plasma Prostate Spec.Ag,Screen Lab Routine Prostate cancer screening Expected: 09/18/2023 (Approximate), Expires: 07/22/2024 [facility] Work Phone: Comment on above: Expected: 09/18/2023 (Approximate), Expires: 07/22/2024 Start: 09-18-2023 End: 07-22-2024 TSH with reflex to Free T4 if abnormal TSH with reflex to Free T4 if abnormal Lab Routine Thyroid disorder screening Expected: 09/18/2023 (Approximate), Expires: 07/22/2024 [facility] Work Phone: Comment on above: Expected: 09/18/2023 (Approximate), Expires: 07/22/2024 Start: 09-18-2023 End: 07-22-2024 Urate [Mass/volume] in Serum or Plasma Uric acid Lab Routine Hyperuricemia Expected: 09/18/2023 (Approximate), Expires: 07/22/2024 [facility] Work Phone: Comment on above: Expected: 09/18/2023 (Approximate), Expires: 07/22/2024 Start: 09-18-2023 End: 07-22-2024 Urinalysis complete panel - Urine Urinalysis with Reflex Microscopic Lab Routine Benign essential hypertension Type 2 diabetes mellitus with stage 3b chronic kidney disease, without long-term current use of insulin (Multi) Expected: 09/18/2023 (Approximate), Expires: 07/22/2024 [facility] Work Phone: Comment on above: Expected: 09/18/2023 (Approximate), Expires: 07/22/2024 Start: 07-23-2023 End: 07-23-2023 Patient encounter procedure 07/23/2023 4:00 PM EDT Office Visit [facility] [address] [place] [address] [place] [address] [place] [address] [facility] Start: 06-05-2023 Hemoglobin A1c measurement Diabetes: Hemoglobin A1C [facility] Start: 04-23-2023 End: 04-23-2023 Patient encounter procedure 04/23/2023 4:00 PM EST Office Visit [facility] [address] [place] [address] [place] [address] [place] [address] [facility] Start: 03-04-2023 End: 03-04-2023 Patient encounter procedure 03/04/2023 4:00 PM EST Office Visit [facility] [address] [place] [address] [place] [address] [place] [address] [facility] Start: 12-20-2022 Urine screening for protein Diabetes: Urine Protein Screening [facility] Start: 12-19-2022 Hemoglobin A1c measurement Diabetes: Hemoglobin A1C [facility] Start: 12-12-2022 PHYSICAL, Provider: Phillip Bernal, Status: Pen, Time: 4:30 PM PHYSICAL, Provider: Phillip Bernal, Status: Pen, Time: 4:30 PM [facility] Work Phone: Start: 10-18-2022 Influenza vaccination Influenza Vacc ine (#1) [facility] Start: 2022 RSV High Risk: (Elde rly (60+) or Population) (1 - Risk 60-74 years 1-dose series) RSV High Risk: (Elderly (60+) or Population) (1 - Risk 60-74 years 1-dose series) [facility] Start: 2022 RSV patient s and/or patients aged 60+ years (1 - 1-dose 60+ series) RSV patients and/or patients aged 60+ years (1 - 1-dose 60+ series) [facility] Start: 07-03-2022 FUV, Provider: Phillip Bernal, Status: Pen, Time: 4:30 PM FUV, Provider: Phillip Bernal, Status: Pen, Time: 4:30 PM [facility] Work Phone: Start: 04-24-2022 Glaucoma screening Diabetes: R etinopathy Screening [facility] Start: 12-26-2021 FUVEXT, Provider: Rudi Abdi, Status: Pen, Time: 4:30 PM FUVEXT, Provider: Rudi Abdi, Status: Pen, Time: 4:30 PM [facility] Work Phone: Start: 12-14-2021 FUVEXT, Provider: Rudi Abdi, Status: Pen, Time: 4:00 PM FUVEXT, Provider: Rudi Abdi, Status: Pen, Time: 4:00 PM [facility] Work Phone: Start: 10-04-2021 PHYSICAL, Provider: Phillip Bernal, Status: Pen, Time: 4:15 PM PHYSICAL, Provider: Phillip Bernal, Status: Pen, Time: 4:15 PM [facility] DO Work Phone: Start: 09-05-2021 FUV, Provider: Rudi Abdi, Status: Pen, Time: 4:00 PM FUV, Provider: Rudi Abdi, Status: Pen, Time: 4:00 PM [facility] Work Phone: Start: 06-20-2021 FUV, Provider: Phillip Bernal, Status: Pen, Time: 4:00 PM FUV, Provider: Phillip Bernal, Status: Pen, Time: 4:00 PM [facility] DO Work Phone: Start: 06-06-2021 FUV, Provider: Phillip Bernal, Status: Pen, Time: 4:00 PM FUV, Provider: Phillip Bernal, Status: Pen, Time: 4:00 PM [facility] DO Work Phone: Start: 05-23-2021 FUV, Provider: Rudi Abdi, Status: Pen, Time: 4:00 PM FUV, Provider: Rudi Abdi, Status: Pen, Time: 4:00 PM [facility] Work Phone: Start: 05-05-2021 Lipid panel Lipid Panel [facility] Start: 04-24-2021 Glaucoma screening Diabetes: R etinopathy Screening [facility] Start: 04-13-2021 FUV, Provider: Marco Ludwig, Status: Pen, Time: 4:00 PM FUV, Provider: Marco Ludwig, Status: Pen, Time: 4:00 PM [facility] Work Phone: Start: 11-30-2020 FUV, Provider: Phillip Bernal, Status: Pen, Time: 4:00 PM FUV, Provider: Phillip Bernal, Status: Pen, Time: 4:00 PM [facility] Work Phone: Start: 11-22-2020 FUV, Provider: Rudi Abdi, Status: Pen, Time: 4:00 PM FUV, Provider: Rudi Abdi, Status: Pen, Time: 4:00 PM [facility] Work Phone: Start: 04-29-2009 Pneumococcal vaccination Pneum ococcal Vaccine (2 of 2 - PCV) [facility] Start: 04-29-2009 Pneumococcal Vaccine : Pediatrics (0 to 5 Years) and At-Risk Patients (6 to 64 Years) (2 - PCV) Pneumococcal Vaccine: Pediatrics (0 to 5 Years) and At-Risk Patients (6 to 64 Years) (2 - PCV) [facility] Start: 04-29-2009 Pneumococcal Vaccine : Pediatrics (0 to 5 Years) and At-Risk Patients (6 to 64 Years) (2 of 2 - PCV) Pneumococcal Vaccine: Pediatrics (0 to 5 Years) and At-Risk Patients (6 to 64 Years) (2 of 2 - PCV) [facility] Start: 1981 Hepatitis A Vaccines (1 of 2 - Risk 2-dose series) Hepatitis A Vaccines (1 of 2 - Risk 2-dose series) [facility] Start: 1981 Zoster Vaccines (1 of 2) Zoste r Vaccines (1 of 2) [facility] Start: 1980 Hepatitis C [facility]: 03-17-1973 IPV Vaccines (2 of 3 - 4-dose series) IPV Vaccines (2 of 3 - 4-dose series) [facility] Start: 1972 Diabetic foot examination Diabetes: Foot Exam [facility] Start: 1972 Glaucoma screening Diabetes: R etinopathy Screening [facility] Start: 07-31-1967 COVID-19 Vaccine (#1) COVID-19 Vacci ne (#1) [facility] Start: 07-31-1963 MMR Vaccines (1 of 1 - Standard series) MMR Vaccines (1 of 1 - Standard series) [facility] Start: 1962 HIV screening HIV Screening [facility] Start: 1960 Screening for malign ant neoplasm of colon [facility] Start: 1962 Yearly Adult Physical Yearly Adult P hysical [facility] Bilirubin measuremen t, urine [facility] End: 02-07-2024 ECG 12 lead [facility] Service Area Work Phone: Comment on above: Once for 1 Occurrenc es starting 02/07/2024 until 02/07/2024 End: 10-27-2023 Extra Tubes [facility] Service Area Work Phone: Comment on above: Once (Lab) for 1 Occ urrences starting 10/27/2023 until 10/27/2023 Hemoglobin [Presence ] in Urine [facility] Hemoglobin A1c/Hemoglobin.total in Blood [facility] INR in Blood by Coagulation assay [facility] Lactic acid measurement [facility] Lactic acid measurement [facility] Measurement of keton es in urine using dipstick [facility] Microscopic urinalysis [facility] Organism count, microscopic method [facility] pH of Urine [facility] Specific gravity of Urine [facility] Urine culture [facility] Urine dipstick for glucose [facility] Urine dipstick for leukocyte esterase [facility] Urine dipstick for nitrite [facility] Urine dipstick for protein [facility] Urine examination [facility] End: 10-27-2023 Urine Wilson Tube [facility] Work Phone: Comment on above: Once for 1 Occurrenc es starting 10/27/2023 until 10/27/2023 Urine microscopy: epithelial cells [facility] Urine microscopy: re d cells [facility] Urobilinogen [Presen ce] in Urine [facility] End: 08-02-2023 US Thyroid gland [facility] Service Area Work Phone: Comment on above: Once for 1 Occurrenc es starting 08/02/2023 until 08/02/2023 End: 01-21-2024 US Thyroid gland [facility] Service Area Work Phone: Comment on above: Once for 1 Occurrenc es starting 01/21/2024 until 01/21/2024 White blood cell count [facility] Wound microscopy, culture and sensitivities [facility] End: 11-13-2023 XR Abdomen Single view [facility] Service Area Work Phone: Comment on above: Once for 1 Occurrenc es starting 11/13/2023 until 11/13/2023 [facility] [place] Work Phone: NEGATED: Highlighted row has been ruled out! Planned Goals not documented [facility] [place] Work Phone: Immunizations Immunization Date Immunization Notes Care Provider Marcos mcdonnell 07-20-2018 tetanus and diphther ia toxoids, adsorbed, preservative free, for adult use (2 Lf of tetanus toxoid and 2 Lf of diphtheria toxoid) Phillip Bernal Work Phone: [facility] DO Work Phone: 04-23-2013 hepatitis B vaccine, adult dosage Phillip Bernal Work Phone: [facility] DO Work Phone: 08-11-2012 hepatitis B vaccine, adult dosage Phillip Bernal Work Phone: [facility] DO Work Phone: 07-03-2012 hepatitis B vaccine, adult dosage Phillip Bernal Work Phone: [facility] DO Work Phone: 04-29-2008 pneumococcal polysaccharide vaccine, 23 valent Phillip Bernal Work Phone: [facility] DO Work Phone: 04-29-2008 tetanus toxoid, redu miguel diphtheria toxoid, and acellular pertussis vaccine, adsorbed Phillip Bernal Work Phone: [facility] DO Work Phone: 02-17-1973 poliovirus vaccine, inactivated Heriberto Davalos DO Work Phone: [facility] Work Phone: 02-17-1973 rubella virus vaccine Alma Rosa Davalos DO Work Phone: [facility] Work Phone: 02-17-1973 poliovirus vaccine, unspecified formulation Stj 1 [facility] Work Phone: Payers Date Payer Category Payer Self-pay 2021 [employer] [facility] [id number] 2021 Unknown 2021 Unknown [id number] 2021 Unknown [id number] 1960 Unknown [id number] [id number] 1962 Unknown [id number] 2.16.840.1.436272.3.579.2.1068 1962 Unknown [id number] 2.16.840.1.400204.3.579.2.1068 1962 Unknown [id number] 2.16.840.1.836597.3.579.2.159 1960 Unknown [id number] 2.16.840.1.192405.3.579.2.4 1962 Unknown [id number] 2.16.840.1.743844.3.579.2.1243 1962 Unknown [id number] 2.16.840.1.348692.3.579.2.1243 1962 Unknown [id number] 2.16.840.1.270236.3.579.2.1243 1962 Unknown [id number] 2.16.840.1.242402.3.579.2.1243 1962 Unknown [id number] 2.16.840.1.042417.3.579.2.1243 1962 Unknown [id number] 2.16.840.1.883412.3.579.2.1243 1962 Unknown [id number] 2.840.1.594857.3.579.2.1243 1962 Unknown [id number] 2.840.1.146415.3.579.2.1243 1962 Unknown [id number] 2.840.1.951528.3.579.2.1242 1962 Unknown [id number] 2.16.840.1.766856.3.579.2.1242 1962 Unknown [id number] 2.16840.1.041235.3.579.2.1242 1962 Unknown [id number] 2.16840.1.134550.3.579.2.1244 1962 Unknown [id number] 2.16840.1.054329.3.579.2.1244 1962 Unknown [id number] 2.16840.1.500540.3.579.2.1245 Private Health Insurance [id number] Unknown [id number] Unknown [id number] Unknown [id number] 2.16840.1.736761.3.579.2.462 Unknown [id number] 2.16.840.1.228694.3.579.2.462 Unknown [id number] 2.16.840.1.980739.3.579.2.462 Unknown [id number] 2.16.840.1.200457.3.579.2.462 Unknown [id number] Social History Date Type Detail Facility Start: 12-23-2022 End: 04-19-2024 Never a smoker [facility]: Start: 12-23-2022 End: 10-29-2024 Tobacco smoking status NHIS Never smoked tobacco [facility] Start: 12-23-2022 End: 04-19-2024 Alcohol Use Disorder Identification Test - Consumption [AUDIT-C] [facility] Work Phone: How often to you hav e a drink containing alcohol? Monthly or less [facility] Work Phone: How many standard dr inks containing alcohol do you have on a typical day? 1 or 2 [facility] Work Phone: How often do you hav e 6 or more drinks on 1 occasion? Never [facility] Work Phone: Start: 1960 Sex Assigned At Not on file [facility] Work Phone: Start: 12-13-2022 End: 04-19-2024 Exposure to SARS-CoV-2 (event) Not sure [facility] Start: 03-04-2023 End: 07-23-2023 Tobacco use and exposure Smokeless tobacco non-user [facility] Work Phone: Start: 03-04-2023 End: 04-19-2024 Alcohol intake Current drinker of alcohol (finding) [facility] Work Phone: Start: 03-03-2024 Alcohol Comment weekly [facility] Work Phone: Tobacco smoking stat us NHIS Unknown if ever smoked [facility] Work Phone: Start: 1960 Sex Assigned At Male [facility] Start: 01-12-2022 Sex Male [facility] NEGATED: Highlighted row - - [facility] Work Phone: NEGATED: Highlighted rowStart: NINF History of tobacco use Passive smoker [facility] Work Phone: Medical Equipment Procedure Code [...] strip i nto the skin once daily. [id number] Start: 04-17-2018 Use as directed to test daily. [id number] Inject 1 strip i nto the skin once daily. [id number] Start: 04-19-2024 End: 04-19-2025 Inject 1 strip u nder the skin once daily. Use as directed to test daily. [id number] Start: 04-19-2024 End: 04-19-2025 Functional Status Date Assessment Result Facility 04-19-2024 Patient Health Questionnaire 2 item (PHQ-2) [Reported] [facility] Work Phone: 03-03-2024 Patient Health Questionnaire 2 item (PHQ-2) [Reported] [facility] Work Phone: 02-07-2024 [place] - suicide severity rating scale screener - recent [C-SSRS] [facility] Work Phone: 11-25-2023 Patient Health Questionnaire 2 item (PHQ-2) [Reported] [facility] Work Phone: NEGATED: Highlighted row Functional performance Functional status health issues are not documented [facility] Work Phone: Mental Status Date Assessment Result Facility NEGATED: Highlighted row Cognitive function [Interpretation] Cognitive status health issues are not documented [facility] Work Phone: Clinical Notes 11-22-2020 to 10-29-2024 Note Date & Type Note Facility 10-29-2024 Consult note [facility] 10-29-2024 Radiology Diagnostic study note [facility] Imaging Services [address] [place] [address] Foot min 3 Views MR#: [id number] Acct: [id number] Name: JEFFERSON CARCAMO Rep #: [id number] : 1960 M 64 From: Marcin Wing MD PCP: Dr. Mayco Fenton MD Status: REG E R Study:Foot min 3 Views Date of Exam: 02/10 Exam# [id number] Ordering Dr: Mikey Nunez MD PROCEDURE: FOOT [...] recommend further evaluation with MRI. Reading Location: [facility] CC: Dr. Mayco Fenton MD; Dr. Sriram Nunez MD ~ Manufacturing Maintenance Technician: Signed [facility] 10-29-2024 Discharge summary [facility] 10-29-2024 Discharge summary Note Date/Time October 29, 2024 7:19pm [facility] Medical Records Department [address] [place] [address] Emergency Department Summary 10/29/24 MR#: [id number] Acct: [id number] Name: JEFFERSON CARCAMO Rep #:[id number] : 1960 64 From: Sriram Nunez MD PCP: Dr. Mayco Fenton MD Status:REG E R Location: ED ADDENDUM by Dr. Sriram Nunez MD on 10/29/24 at 1918 Sinus tachycardia rate of 106. NC interval 132 ms per cures duration 78 ms. QTduration is 320 ms. [place] is normal. Other than sinus tachycardia the [...] He is present under the care of floor sander. Social Science Analyst is not in this area. He presents [...] 84.4 H Lymph % (Auto) 4.1 L [place] % (Auto) 7.8 Eos % (Auto) 2.6 [...] Sl. Cloudy Urine pH 6.0 Ur Specific [place] 1.015 Urine Protein 30 H Urine Glucose [...] is emergent. Plan is admit ICU) and Ecotherapist (Case was discussed with Dr. Cheney. He [...] OR for emergent surgery. This), Discussing w/Patient&/or Family/Bulk Tank Car Unloader, Discussing w/Consultants and Arranging Admission or Transfer Discharge Plan Dx/Rx/DC Orders Clinical Impression: Diabetic infection of left foot, Hypertension, Sepsis, Acute osteomyelitis of left foot, Subcutaneous air, Sinus tachycardia Disposition Disposition: Acute Care [facility] What to do if you have Problems For any increased pain, shortness of breath, bleeding, nausea or vomiting, chestpain, or any unexpected problems, contact your Primary Care Provider. Call [facility] ([phone]) or report to the closest Emergency Room. Call 911 if necessary. 10/29/241917 <Electronically signed by Sriram Nunez MD> Cosigner Signature (if applicable): CC: Dr. Mayco Fenton MD ~ Signed [facility] Work Phone: 1(150) 882-834508-04-2025 History of Present illness Narrative* Giovanna Cook MD - 09/20/2024 3:40 PM EDT Patient ID: Jefferson Carcamo is a 64 y.o. male. Referring Physician: [place] [id number] [facility] [address] [place] [address] Primary Care Provider: Heriberto Davalos DO Visit [...] Review Audit Reviewed by Kary George MA (Regulatory Consultant) on 09/20/24 at 1534 Medication Order Taking? Sig Documenting Provider Last Dose Status allopurinol (Zyloprim) 300 mg tablet [id number] Yes TAKE 1 TABLET BY MOUTH EVERY DAY Heriberto Davalos DO Active atorvastatin (Lipitor) 10 mg tablet [id number] Yes TAKE 1 TABLET BY MOUTH EVERY DAY Heriberto Davalos, DO Active blood sugar diagnostic (Accu-Chek Neena Plus test strp) strip [id number] Yes Inject 1 strip into theskin once daily. Heriberto Davalos, DO Active glimepiride (Amaryl) 4 mg tablet [id number] Yes TAKE 1 & 1/2 TABLETS BY MOUTH EVERY DAY Heriberto Davalos, DO Active lancets (Accu-Chek Softclix Lancets) misc [id number] Yes Inject 1 strip under the skin once daily. Use as directed to test daily. Heriberto Davalos, DO Active lisinopril 10 mg tablet [id number] Yes Take 0.5 tablets (5 mg) by mouth once daily. Heriberto Davalos, DO Active metFORMIN (Glucophage) 1,000 mg tablet [id number] Yes TAKE 1/2 TABLET BY MOUTH EVERY 12 HOURS Heriberto Davalos DO Active metoprolol succinate XL (Toprol-XL) 25 mg 24 hr tablet [id number] Yes TAKE 1 TABLET BY MOUTH DAILY Heriberto Davalos DO Active Xarelto 20 mg tablet [id number] Yes TAKE 1 TABLET BY MOUTH EVERY [...] reviewed--wbc 12.9, hgb 12.8, plt 311,000, ANC 34152, abs lymph 3230 abs mono 930 -has [...] Clinic Appointment Request Follow Up; GIOVANNA COOK; [facility] CBC and Auto Differential Iron and TIBC Ferritin Large granular lymphocytic leukemia (Multi) C91.Z0 Relevant Orders Clinic Appointment Request Follow Up; GIOVANNA COOK; [facility] CBC and Auto Differential Comprehensive metabolic [...] Grandfather Cancer Other Aunt [facility] Phone: 1(183) 579-372608-04-2025 Instructions* Patient Instructions* Giovanna Cook MD - 09/20/2024 3:40 PM EDT See you again in 1 year [facility] Work Phone: 1(712) 667-334905-06-2025 Evaluation note* Diagnosis Onset Date Resolution Status Admit Date Physical exam, pre-employment acute June 22, 2024 4:16pm [facility] Work Phone: 1(493) 946-846503-03-2025 History of Present illness Narrative* Heriberto Davalos [...] today and showed lipid panel total cholesterol [id number] HDL 51 triglycerides 79, LDL 44, magnesium [...] Check a PSA level documented in this [facility] Work Phone: 1(128) 523-397201-15-2025 History of Present illness Narrative* Heriberto Davalos [...] check a magnesium level documented in this [facility] Work Phone: 1(778) 303-761312-27-2024 History of Present illness Narrative* Goyo Snider [...] truegrowth based on the the rate of gear changer that time. -Thyroid nodule: Nodule has [...] concerns Goyo Snider MD [facility] Work Phone: 1(622) 306-561212-21-2024 Hospital Discharge instructions* Discharge Instructions* Mayco Woods [...] Care Everywhere. * Upper Respiratory Infection ED (Spanish) * Viral Upper Respiratory Infection Discharge Instructions, Adult (Spanish) [facility] Work Phone: 1(274) 949-871010-23-2024 History of Present illness Narrative* Mahesh Santos, BED TEACHER-DIRECTOR PLANS - 12/10/2023 4:00 PM EDT UROLOGIC INITIAL [...] - see comments. lancets (Accu-Chek Softclix Lancets) [facility] Use as directed to test daily. metFORMIN [...] with any questions, concerns documented in this [facility] Work Phone: 1(693) 562-763510-08-2024 History of Present illness Narrative* Heriberto Davalos [...] with urology still forrecheck documented in this [facility] Work Phone: 1(765) 821-302609-25-2024 History of Present illness Narrative* Goyo Snider [...] with XR left hip/pelvis 12/06/19. ACCESSION NUMBER(S): [id number] ORDERING CLINICIAN: THERON RIBERA TECHNIQUE: CT of [...] truegrowth based on the the rate of gear changer that time. Since his last ultrasound was 3-1/2 months ago he would like to get a short-term follow-up that will be 6 months from his last ultrasound. At that time he will decide on needle biopsy versus continued surveillance We will reassess his left ear at the next visit Goyo Snider MD documented in this [facility] Work Phone: 1([phone]) 174-554209-24-2024 History of Present illness Narrative* Heriberto Davalos, - 11/11/2023 9:30 AM EDT Subjective Patient ID: Jefferson Carcamo is a 63 y.o. male who presents for Follow-up (Follow up on BP). HPI Patient following up today with multiple complaints. He had sent us a lengthy Availigentt message with multiple points. Therefore we advised him to come into the office to discuss his concerns. 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 No obvious abnormalities of the eyes grossly. Pupils are equal round reactive to light extraocular muscles intact. No evidence of infection. Limited funduscopic exam was negative. documented in this [facility] Work Phone: 1([phone]) 308-837309-10-2024 History of Present illness Narrative* Heriberto Davalos [...] the right. Continue Flomax. documented in [facility] Work Phone: [phone]) 227-365109-09-2024 Hospital Discharge instructions* Discharge Instructions* Theron Ribera PA-C - 10/27/2023 4:29 PM EDT Purchase a urine strainer from any pharmacy if you would like the stone to be tested by urology. Take the Percocet sparingly for severe pain. Take the Zofran for nausea/vomiting. Take the Flomax once daily. Increase your fluid intake to help pass the stone. Follow-up with urology documented in [facility] Work Phone: 1(203) 767-400009-09-2024 Emergency department Note* Theron Ribera PA-C - 10/27/2023 11:16 AM EDT Images from the original note were not included. 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 States it came out of nowhere woke him up around 630. States he had 1 episode of nonbloody nonbilious vomiting. Has not tried to eat or drink today due to the vomiting. Denies any abnormal ingestions. Did have a few beers at the [employer] yesterday however does drink similar amounts on [...] reading to minimize errors, minor errors in puncher may be present call for questions. Theron Ribera PA-C 10/27/23 9335 documented in this [facility] Work Phone: [phone]) 998-653909-09-2024 Physician Emergency department Note* Theron Ribera PA-C - 10/27/2023 11:16 AM EDT Images from the original note were not included. 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 States it came out of nowhere woke him up around 630. States he had 1 episode of nonbloody nonbilious vomiting. Has not tried to eat or drink today due to the vomiting. Denies any abnormal ingestions. Did have a few beers at the [employer] yesterday however does drink similar amounts on [...] reading to minimize errors, minor errors in puncher may be present call for questions. Theron Ribera PA-C 10/27/23 1634 [facility] Work Phone: [phone]) 814-753706-05-2024 History of Present illness Narrative* Heriberto Davalos, [...] Relevant Orders Prostate Spec.Ag,Screen [facility] Work Phone: [phone]) 296-971103-06-2024 History of Present illness Narrative* Heriberto Davalos [...] of Ankylosing spondylosis. He had seen a sign artist in the past. Sugars were 175-250 before [...] mg/3 mL) pen injector [facility] Work Phone: [phone]) 977-114402-06-2024 History of Present illness Narrative* Heriberto Davalos [...] (Flexeril) 10 mg tablet [facility] Work Phone: [phone]) 948-254301-16-2024 History of Present illness Narrative* Heriberto Davalos [...] T4 if abnormal (Completed) documented in this [facility] Work Phone: [phone] History of Present illness Narrative* Phillip Bernal [...] skin once daily. lancets (Accu-Chek Softclix Lancets) [facility] Use as directed to test daily. No [...] linked to this encounter. documented in this [facility]Ohio[facility] Work Phone: [phone] 559-541702-05-2022 History of Present illness Narrative* Patient is [...] history of kidney stones. 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 [facility] DO Work Phone: [phone] 363-280801-14-2022 History of Present illness NarrativeKetanry is a [...] got an extensive home workout regimen from [facility]. He says his pain is [...] no bowel or bladder complaints at this visit.[facility] [place] Work Phone: [phone] 156-177010-06-2021 History of Present illness NarrativeHe continues glimepiride 4 mg pills, 1/2 pill twice daily Metformin 1000 mg pills, 1/2 pill twice daily, and Januvia 25 mg daily. He test his fingerstick glucose once daily at different times with readings in the morning generally around 100 mg/dL. Postprandial readings are occasionally in the [id number], often in the evening. He has had no serious hypoglycemic episodes. He has lost 3 pounds since last visit. Other medications include lisinopril hydrochlorothiazide metoprolol and atorvastatin.[facility] Work Phone: Consult note Author Javy Lynch [facility] Note Date/Time October 29, 2024 7:56pm [facility] Medical Records Department [address] [place] [address] Consultation 10/29/241940 MR#: [id number] Acct: [id number] Name: JEFFERSON CARCAMO Rep #:[id number] : 1960 64 From: Javy Lynch DPM [...] with ER physician as well as with affirmative action specialist anesthesiologist. Patient has been started on IV [...] been started on IV antibioticsVanc and Zosyn. [facility] Medical History Physical exam, pre-employment Home Medications [...] 84.4 H, Lymph % (Auto) 4.1 L, [place] % (Auto) 7.8, Eos % (Auto) 2.6, [...] Sl. Cloudy, Urine pH 6.0, Ur Specific [place] 1.015, Urine Protein 30 H, Urine Glucose [...] recommend further evaluation with MRI. [facility] 10/29/241955 <Electronically signed by Javy Lynch DPM> Cosigner Signature (if applicable): CC: Dr. Mayco Fenton MD~ Signed [facility] Work Phone: Evaluation note* Diagnosis Ankylosing spondylitis of thoracolumbar region (CMS/HCC)- Primary Benign essential hypertension Essential hypertension, benign Asymptomatic hyperuricemia Type 2 diabetes mellitus with other specified complication, without long-term current use of insulin (CMS/HCC) Hyperlipidemia, unspecified hyperlipidemia type documented in this encounter [facility] Work Phone: [phone] note* Diagnosis Type 2 diabetes mellitus with diabetic polyneuropathy, without long-term current use of insulin (CMS/HCC)- Primary Ankylosing spondylitis of thoracolumbar region (CMS/HCC) Benign essential hypertension Essential hypertension, benign Asymptomatic hyperuricemia Thyroid disorder screening Screening for thyroid disorder Neuropathy Mononeuritis of unspecified site documented in this encounter [facility] Work Phone: [phone] note* Diagnosis Type 2 diabetes mellitus with stage 3b chronic kidney disease, without long-term current use of insulin (CMS/HCC)- Primary Neck pain on left side Benign essential hypertension Essential hypertension, benign documented in this encounter [facility] Work Phone: [phone] note* Diagnosis Type 2 diabetes mellitus with stage 3b chronic kidney disease, without long-term current use of insulin (CMS/HCC)- Primary Ankylosing spondylitis of thoracolumbar region (CMS/HCC) documented in this encounter [facility] Work Phone: [phone] note* Diagnosis Multinodular goiter Nontoxic multinodular goiter documented in this encounter [facility] Work Phone: [phone] note* Diagnosis Nephrolithiasis Calculus of kidney documented in this encounter [facility] Work Phone: [phone] note* Diagnosis Thyroid nodule Nontoxic uninodular goiter documented in this encounter [facility] Work Phone: [phone] note* Diagnosis Type 2 diabetes mellitus with [...] Nontoxic multinodular goiter documented in this encounter [facility] Work Phone: [phone] note* Diagnosis Nephrolithiasis- Primary Calculus of kidney documented in this encounter [facility] Work Phone: [phone] note* Diagnosis Type 2 diabetes mellitus with stage 3b chronic kidney disease, without long-term current use of insulin (Multi)- Primary Benign essential hypertension Essential hypertension, benign Stage 3b chronic kidney disease (Multi) Mixed hyperlipidemia Hyperuricemia Other abnormal blood chemistry Nephrolithiasis Calculus of kidney documented in this encounter [facility] Work Phone: [phone] note* Diagnosis Nephrolithiasis- Primary Calculus of kidney Benign essential hypertension Essential hypertension, benign Stage 3b chronic kidney disease (Multi) Type 2 diabetes mellitus with stage 3b chronic kidney disease, without long-term current use of insulin (Multi) Left eye pain documented in this encounter [facility] Work Phone: [phone] note* Diagnosis Thyroid nodule Nontoxic uninodular goiter documented in this encounter [facility] Work Phone: [phone] note* Diagnosis Nephrolithiasis Calculus of kidney documented in this encounter [facility] Work Phone: [phone] note* Diagnosis Viral upper respiratory illness- Primary Viral upper respiratory illness documented in this encounter [facility] Work Phone: [phone] note* Diagnosis Thyroid nodule- Primary Nontoxic uninodular goiter documented in this encounter [facility] Work Phone: [phone] note* Diagnosis Benign essential hypertension- Primary Essential hypertension, benign Type 2 diabetes mellitus with stage 3b chronic kidney disease, without long-term current use of insulin (Multi) Hyperuricemia Other abnormal blood chemistry Nephrolithiasis Calculus of kidney Thyroid nodule Nontoxic uninodular goiter documented in this encounter [facility] Work Phone: [phone] note* Diagnosis Neuropathy- Primary Mononeuritis of unspecified site Hypomagnesemia Disorders of magnesium metabolism documented in this encounter [facility] Work Phone: [phone] note* Diagnosis Neuropathy- Primary Mononeuritis of unspecified [...] neoplasm of prostate documented in this encounter [facility] Work Phone: Evaluation note* 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, without mention of having achieved remission Ankylosing spondylitis of thoracolumbar region (Multi) 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 * 1. Diabetes mellitus 2. Hemochromatosis 3. Hypertension 4. Right shoulder pain see below 5. Ankylosing spondylitis 6. Lower back pain * Patient in the 1980s when he had his lower back surgery done over at [facility]. They did not know he [...] ago he was working out on his [employer]. He was on the incline bench press. When he was pushing upwhen he felt something grinder set up operator surface snapped in his right shoulder since then if he does not do that typeof maneuver it does not bother him as much. Has never gone back to normal any overhand motion or pushing forward type of motion exacerbates it he is right- hand dominant. He was just seen by school admissions representative who is pleased that the leukemia has [...] control with above check labs with abovewith technician submarine cable equipment 5. Leukemia stable excellent 6. Hemochromatosis control multifactorial with above 7. Diabetes mellitus controlled moderately per above patient knows what he can do better with diet insight etc. we will follow-up around May. We will get a PSA test in early May and follow-up post that all questions concerns addressed. [facility] DO Work Phone: History of Present illness [...] time just to get out of bed. [place] of 2020 he had the worst flareup [...] no bowel or bladder complaints at this visit.-[facility] Work Phone: History of Present illness [...] metoprolol. He is followed by multiple specialists. [facility] Work Phone: History of Present illness NarrativeHe [...] include metoprolol atorvastatin lisinopril hydrochlorothiazide Xarelto and allopurinol.[facility] Work Phone: History of Present illness NarrativeHe [...] episodes. Other medications include lisinopril/hydrochlorothiazide, allopurinol, and atorvastatin.[facility] Work Phone: Instructions* Name Dates Details Instructions not documented [id number] Work Phone: Reason for referral (narrative)* Consultation (Routine) - Authorized Specialty Diagnoses / Procedures Referred By Ralph alberts Referred To Contact Endocrinology Diagnoses Type 2 diabetes mellitus with stage 3b chronic kidney disease, without long-term current use of insulin ([facility]) [place] [address] [place] [address] [place] [address] [address] Referral ID Status Reason Start Date Expiration Date Visits Requested Visits Authorized [id number] Authorized Specialty Services Required 03/25/2023 03/24/2024 1 1 [facility] Work Phone: Reason for referral (narrative)* Consultation (Routine) - Authorized Specialty Diagnoses / Procedures Referred By Ralph alberts Referred To Contact Urology Diagnoses Nephrolithiasis Theron Ribera PA-C [address] [address] [facility] Department [place] [address] Referral ID Status Reason Start Date Expiration Date Visits Requested Visits Authorized [id number] Authorized Specialty Services Required 10/27/2023 10/26/2024 1 1 [facility] Work Phone: Reason for referral (narrative)No reason for referral information availableWKettering Health [facility] Work Phone: Reason for visit Narrative* Consultation (Routine) - Authorized Specialty Diagnoses / Procedures Referred By Ralph alberts Referred To Contact Urology Diagnoses Nephrolithiasis Theron Ribera PA-C [address] [facility] Department [place] [address] Phone: tel: fax: Referral ID Status Reason Start Date Expiration Date Visits Requested Visits Authorized [id number] Authorized Specialty Services Required 10/27/2023 10/26/2024 1 1 [facility] Work Phone: Rewjwd for visit Narrative* Imaging (Routine) - Authorized Specialty Diagnoses / Procedures Referred By Ralph alberts Referred To Contact Radiology Diagnoses Thyroid nodule [place] [address] [facility] Department of Otolaryngology [place] [id number] Phone: tel: fax: Referral ID Status Reason Start Date Expiration Date Visits Requested Visits Authorized [id number] Authorized Perform Procedure 11/12/2023 11/11/2024 1 1 [facility] Work Phone: Summary Purpose Family History [...] Relationship Healthcare Agent Relationshi p Communication Kalia yLle Sibling Health Care Agent 47 (Home) Healthcare [...] Communication Kalia Lyle Sibling Health Care Agent 49 (Home) Advance Directive Response Recorded Date/ Time Do you have a Healthcare Power of Specialized Developer? 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, xrays today * [...] goiter [place] [address] [place] [address] Referral ID Status Reason Start Date Expiration Date Visits Requested Visits Authorized [id number] Authorized Perform Procedure 07/23/2023 07/22/2024 1 1 Specialty Diagnoses / Procedures Referred By Contac t Referred To Contact Radiology Diagnoses Nephrolithiasis Procedures XR abdomen 1 view Heriberto Davalos, [address] [place] [address] Referral ID Status Reason Start Date Expiration Date Visits Requested Visits Authorized [id number] Authorized Perform Procedure 11/11/2023 11/10/2024 1 1 Specialty Diagnoses / Procedures Referred By Contac t Referred To Contact Radiology Diagnoses Thyroid nodule [place] [address] [address] Department [place] [address] Referral ID Status Reason Start Date Expiration Date Visits Requested Visits Authorized [id number] Authorized Perform Procedure 11/12/2023 11/11/2024 1 1 [...] section and content) DATE CREATED AUTHOR 08/07/2017 [facility] DATE CREATED AUTHOR AUTHOR'S ORGANIZ ATION 07/22/2018 [facility] DATE CREATED AUTHOR AUTHOR'S ORGANIZ ATION 05/09/2020 [facility] DATE CREATED AUTHOR AUTHOR'S ORGANIZ ATION 04/29/2021 [facility] DATE CREATED AUTHOR AUTHOR'S ORGANIZ ATION 12/27/2021 [facility] DATE CREATED AUTHOR AUTHOR'S ORGANIZ ATION 09/21/2022 [facility] DATE CREATED AUTHOR AUTHOR'S ORGANIZ ATION 02/07/2023 [facility] DATE CREATED AUTHOR AUTHOR'S ORGANIZ ATION 02/16/2024 [facility] DATE CREATED AUTHOR AUTHOR'S ORGANIZ ATION 04/15/2024 [facility] DATE CREATED AUTHOR AUTHOR'S ORGANIZ ATION 08/17/2024 [facility] DATE CREATED AUTHOR AUTHOR'S ORGANIZ ATION 09/21/2024 [facility] DATE CREATED AUTHOR AUTHOR'S ORGANIZ ATION 09/30/2024 [facility] DATE CREATED AUTHOR AUTHOR'S ORGANIZ ATION 10/03/2024 [facility] Reason for Visit (unrecogniz ed section and content) Reason Comments Annual Exam Reason Comments Establish Care Reason Comments Results Reason Comments Follow-up Ozempic Needs pen ne edles if continuing Specialty Diagnoses / Procedures Referred By Ralph t Referred To Contact Radiology Diagnoses Multinodular goiter Procedures US thyroid Heriberto Davalos, [address] [place] [address] Referral ID Status Reason Start Date Expiration Date Visits Requested Visits Authorized [id number] Authorized Perform Procedure 07/23/2023 07/22/2024 1 1 Reason Comments Follow-up 3 month Reason Comments Flank Pain PT WITH RIGHT FLANK PAIN SINCE 629. +NAUSEA/VOMITING. Reason Comments Follow-up 3 month Reason Comments Follow-up Follow up on BP Reason Comments thyroid nodules Specialty Diagnoses / Procedures Referred By Ralph alberts Referred To Contact Otolaryngology Diagnoses [place] [address] [place] [address] Goyo Snider MD [address] [place] [id number] Referral ID Status Reason Start Date Expiration Date Visits Requested Visits Authorized [id number] Authorized Specialty Services Required 08/04/2023 08/03/2024 1 1 Specialty Diagnoses / Procedures Referred By Ralph alberts Referred To Contact Radiology Diagnoses Nephrolithiasis Procedures XR abdomen 1 [place] [address] [place] [id number] Referral ID Status Reason Start Date Expiration Date Visits Requested Visits Authorized [id number] Authorized Perform Procedure 11/11/2023 11/10/2024 1 1 [...] Care Teams (unrecognized sec tion and content) Tip Inserter Relationship Specialty [place] [address] [place] [address] PCP - Gabo ESCOBARO PCP 02/17/21 [place] [address] [place] [address] PCP - General Internal Medicine 12/23/22 Tip Inserter Relationship Specialty [place] [address] [place] [address] PCP - [facility] PCP 02/17/21 [place] [address] [place] [address] PCP - General Internal Medicine 12/23/22 Tip Inserter Relationship Specialty Start Date End Date Phillip Bernal MD Office Address Unavailable as of 02/01/2023 PCP - [facility] PCP 02/17/21 [place] [address] [place] [address] PCP - General Internal Medicine 12/23/22 Tip Inserter Relationship Specialty Start Date End Date Phillip Bernal MD Office Address Unavailable as of 02/01/2023 PCP - [facility] PCP 02/17/21 [place] [address] [place] [address] PCP - General Internal Medicine 12/23/22 Tip Inserter Relationship Specialty Start Date End Date Phillip Bernal MD Office Address Unavailable as of 02/01/2023 PCP - [facility] PCP 02/17/21 [place] [address] [place] [address] PCP - General Internal Medicine 12/23/22 Tip Inserter Relationship Specialty Start [place] [address] [place] [address] PCP - General Internal Medicine 12/23/22 [place] [address] [place] [address] PCP - [facility] PCP 08/18/23 Giovanna Cook MD [address] [place] [address] [address] [place] [address] Consulting Physician Hematology and Oncology 09/22/23 Tip Inserter Relationship Specialty Start [place] [address] [place] [address] PCP - General Internal Medicine 12/23/22 [place] [address] [place] [address] PCP - [facility] PCP 08/18/23 Giovanna Cook MD [address] [place] [address] [address] [place] [address] Consulting Physician Hematology and Oncology 09/22/23 Tip Inserter Relationship Specialty Start Date End Date Phillip Bernal MD Office Address Unavailable as of 02/01/2023 PCP - [facility] PCP 02/17/21 [place] [address] [place] [address] PCP - General Internal Medicine 12/23/22 Tip Inserter Relationship Specialty Start Date End Date Phillip Bernal MD Office Address Unavailable as of 02/01/2023 PCP - [facility] PCP 02/17/21 [place] [address] [place] [address] PCP - General Internal Medicine 12/23/22 Giovanna Cook MD [address] [place] [address] [address] [place] [address] Consulting Physician Hematology and Oncology 09/22/23 Tip Inserter Relationship Specialty Start Date End Date Phillip Bernal MD Office Address Unavailable as of 02/01/2023 PCP - [facility] PCP 02/17/21 [place] [address] [place] [address] PCP - General Internal Medicine 12/23/22 Giovanna Cook MD [address] [place] [address] [address] [place] [address] Consulting Physician Hematology and Oncology 09/22/23 Tip Inserter Relationship Specialty Start Date End Date Phillip Bernal MD Office Address Unavailable as of 02/01/2023 PCP - [facility] PCP 02/17/21 [place] [address] [place] [address] PCP - General Internal Medicine 12/23/22 Giovanna Cook MD [address] [place] [address] [address] [place] [address] Consulting Physician Hematology and Oncology 09/22/23 Tip Inserter Relationship Specialty Start Date End Date Phillip Bernal MD Office Address Unavailable as of 02/01/2023 PCP - [facility] PCP 02/17/21 [place] [address] [place] [address] PCP - General Internal Medicine 12/23/22 Giovanna Cook MD [address] [place] [address] [address] [place] [address] Consulting Physician Hematology and Oncology 09/22/23 Tip Inserter Relationship Specialty Start Date End Date Phillip Bernal MD Office Address Unavailable as of 02/01/2023 PCP - [facility] PCP 02/17/21 [place] [address] [place] [address] PCP - General Internal Medicine 12/23/22 Giovanna Cook MD [address] [place] [address] [address] [place] [address] Consulting Physician Hematology and Oncology 09/22/23 Tip Inserter Relationship Specialty Start [place] [address] [place] [address] PCP - General Internal Medicine 12/23/22 [place] [address] [place] [address] PCP - [facility] PCP 08/18/23 Giovanna Cook MD [address] [place] [address] [address] [place] [address] Consulting Physician Hematology and Oncology 09/22/23 Tip Inserter Relationship Specialty Start [place] [address] [place] [address] PCP - General Internal Medicine 12/23/22 [place] [address] [place] [address] PCP - [facility] PCP 08/18/23 Giovanna Cook MD [address] [place] [address] [address] [place] [address] Consulting Physician Hematology and Oncology 09/22/23 Tip Inserter Relationship Specialty Start [place] [address] [place] [address] PCP - General Internal Medicine 12/23/22 [place] [address] [place] [address] PCP - [facility] PCP 08/18/23 Giovanna Cook MD [address] [place] [address] [address] [place] [address] Consulting Physician Hematology and Oncology 09/22/23 Tip Inserter Relationship Specialty Start [place] [address] [place] [address] PCP - General Internal Medicine 12/23/22 [place] [address] [place] [address] PCP - [facility] PCP 08/18/23 Giovanna Cook MD [address] [place] [address] Dr [address] [place] [id number] Consulting Physician Hematology and Oncology 09/22/23 Tip Inserter Relationship Specialty [place] [address] [place] [address] PCP - General Internal Medicine 12/23/22 [place] [address] [place] [address] PCP - [facility] PCP 08/18/23 Giovanna Cook MD [address] [place] [address] Dr [address] [place] [address] Consulting Physician Hematology and Oncology 09/22/23 Team [...] September 22, 2024 End: September 22, 2024 Tip Inserter Relationship Specialty Start [place] [address] [place] [address] PCP - General Internal Medicine 12/23/22 [place] [address] [place] [address] PCP - [facility] PCP 08/18/23 Giovanna Cook MD [address] [place] [address] Dr Gutierrez [address] [place] [address] Consulting Physician Hematology and Oncology 09/22/23 Team [...] BE BASED ON THE PRIMARY CLINICAL RECORDS. [employer] provides no warranty or guarantee of the accuracy or completeness of information in this document.
--- NOTE | 2024-10-29 21:09 | PCM.POST.ANE ---
Anesthesia: Postop Eval I Current Vital Signs Temperature: 36.5 F Pulse Rate: 100 Blood Pressure: 124/65 Respiratory Rate: 16 Pulse Ox: 100 Assessment Airway patent: Yes Spontaneous unlabored respirations: Yes nausea: No Vomiting: No Anesthesia Complication: No Fluid Hydration Crystalloid volume administer (ml): 1,000 Total IV fluid infused: 1,000 Progress Note Anesthesia document: Postop Eval 1 completed: Yes
--- NOTE | 2024-10-29 21:12 | PCM.POSTANE2 ---
Anesthesia Postop Eval I Sum Postop Eval Completion status Anesthesia document: Postop Eval 1 completed: Yes Anesthesia Postop Eval I Summary Anesthesia Postop Eval I Summary: Anesthesia Postop Eval I: Assessment Summary Airway patent Yes 10/29/24 21:09 Spontaneous unlabored Yes 10/29/24 21:09 respirations Mental status nausea No 10/29/24 21:09 Vomiting No 10/29/24 21:09 Anesthesia Postop Eval I: Fluid Summary Crystalloid volume administer 1,000 10/29/24 21:09 (ml) Colloids volume administered ( ml) Blood Product volume administered (ml) Total IV fluid infused 1,000 10/29/24 21:09 Anesthesia Postop Eval I: Summary Notes Anesthesia Complication No 10/29/24 21:09 Anesthesia Complication Comment: Post-operative progress note Anesthesia: Postop Eval II Evaluation Mental status: Calm Pain Level: 0 nausea: No Vomiting: No
[2024-10-29 21:44] LABS: Reflex Lactate? Y
[2024-10-29] MEDS: Lactobacillis Acidophilus 1 CAP PO (22:36)
--- NOTE | 2024-10-29 22:52 | OP.PCM_ITS ---
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 Post-Operative Diagnosis: Same Surgery/Procedure Performed: Debridement of ulceration down to and including bone left foot consulting practice manager: No Type of Anesthesia: Local MAC RN Documented Start/Stop Times: Operation Date: 10/29/24 20:15 Case Time Anesthesia Start 10/29/24 20:25 Into Room 10/29/24 20:25 Procedure Start 10/29/24 20:46 Procedure End 10/29/24 21:17 Into Recovery 10/29/24 21:19 Anesthesia End 10/29/24 21:20 Out of Room 10/29/24 21:20 Out of Recovery 10/29/24 21:43 Procedure Start Time: 20:46 Procedure Stop Time: 21:17 Select all DRAINS/GRAFTS/IMPLANTS that apply: None Estimated Blood Loss: 10mL Specimen collected: Yes Description of specimen(s) removed: 1. Debrided wound/amputated left 5th toe and 5th metatarsal - sent to pathology 2. Bone culture left 5th toe - sent to microbiology 3. Clearance fragment left 5th metatarsal - sent to pathology 4. Clearance fragment left 5th metatarsal - sent to microbiology 5. Wound culture right foot (5th MTPJ) Description of surgery: Indications: 64 year old gentleman with multiple medical problems ulceration sub 5th metatarsal phalangeal joint and to the 4th interdigital space down to bone with severe necrosis to all tissue layers including bone, there is severe edema, erythema, drainage, purulence, and maloder all consistent with severe infection left foot. There is noted to be gas gangrene to the site. We discussed the options and due to severe infection surgical debridement was recommended, patient agreed. The procedure was reviewed with him in detail, reviewed rationale of procedure, possible benefits vs risks, goals, and expectations. Advised patient the risks include but are not limited to pain, further infection, bleeding, need for further surgical, nonhealing, loss of limb, loss of life. Patient expressed understanding and agreement, and was able to repeat back. The consent form was reviewed with him and he freely signed it. All of his questions were answered. No guarantees were given nor implied. No warranties were given. Operative Procedure: The patient was brought back to the operating room and was placed on the operating room table in the supine position, carefully secured to the operating room table with a safety belt. The patient was already on IV antibiotic therapy. A well padded pneumatic tourniquet was applied around the patient's left ankle. The patient received MAC anesthesia per the anesthesiology team. The skin of the left foot 1st ray was cleansed using 70% Isopropyl alcohol and then a nerve block was completed to the left foot 5th ray using total of 10mL of 0.5% Bupivacaine plain. The patient's left foot was scrubbed, prepped, and draped in the usual aseptic fashion. Further attention was directed to the patient's left foot and again noted to have significant infection to the left foot as noted above. There were 2 ulcerations which measured 1.2cm x 0.2cm to the 4th interdigital space left foot probing down to bone and 0.8cm x 0.6cm sub 5th metatarsal phalangeal joint left foot probe down to bone - both had significant necrosis and infection as noted above and overlying nonviable tissue with undermining of edges. A timeout of performed and the patient was properly identified and the surgical plan was confirmed. The patient left foot was elevated for several minutes and the left ankle pneumatic tourniquet was inflated to 250mmHg. Left foot debridement: The ulcerations of the left 5th ray were debrided in sharp excisional fashion using a 15 blade, this was debrided down to and including bone. The bone was resected with the help of a powered sagittal saw at the level of the 5th metatarsal. The entire 5th toe was necrotic, this included the soft tissue and bone of the 5th toe. A bone culture was obtained of the left 5th toe and sent to microbiology. The ulceration was debrided of all nonviable, necrotic and infected tissue. There was extensive black, soupy, boggy soft tis joann and bone of the left 5th toe and tissue around the distal 50% of the 5th metatarsal, including the distal 5th metatarsal. All of this unhealthy tissue was debrided and excised using a 15 blade and powered sagittal saw. The bone of the proximal 5th metatarsal was noted to be white and hard and did appear to be free of infection. The site was flushed with copious amounts of normal saline solution. Using a clean rongeur a sample of bone was obtained from the residual 5th metatarsal and was sent to microbiology and pathology as clearance fragment. The debrided tissues (soft tissue and bone) was sent to pathology. The site was again flushed with copious amounts of normal saline solution. The site was left open to drain. The remaining tissues of the foot appears healthy and viable at this time. Post debridement the ulceration measured: 5.1cm x 7cm and down to and including bone. A dressing was applied which consisted of betadine solution, 4x4 gauze, surgicel (patient on Xarelto), kerlix and abd pads, and rachel dressing was applied. While applying the dressing the ankle tourniquet was deflated and there was immediate return of warmth and perfusion to patient's left foot, CFT < 2 seconds to 1,2,3,4 toes. The patient tolerated the procedure well and anesthesia well with no complications. He was transported from the operating room to the recovery room with vital signs stable and in good condition. The patient will be followed as an inpatient. Instruction and orders placed for strict nonweightbearing left foot, and to keep left foot elevated at all times. Also it was noted there was some erythema to the patient's dorsal lateral right foot coming from ulceration sub right 5th metatarsal phalangeal joint - this was mild, a culture was obtained of that ulceration and was sent to microbiology - painted ulcerations right foot with betadine solution and applied gauze, kerlix and rachel dressing. Surgical Findings: As noted above Complications Complications: No
--- NOTE | 2024-10-29 22:54 | PCM.RX.CS ---
Consult Antibiotic Management Pharmacy has been consulted to manage selected antibiotic: Vancomycin Type of Intervention Type of Consult: New start Suspected Infection Suspected Infection: Sepsis Labs Labs: Sodium 130 mmol/L (133-145) L 10/29/24 17:35 Sodium Cancelled 10/29/24 17:35 Potassium 4.3 mmol/L (3.3-5.1) 10/29/24 17:35 Potassium Cancelled 10/29/24 17:35 Chloride 95 mmol/L (98-108) L 10/29/24 17:35 Chloride Cancelled 10/29/24 17:35 Carbon Dioxide 22.9 mmol/L (21.0-32.0) 10/29/24 17:35 Carbon Dioxide Cancelled 10/29/24 17:35 Anion Gap 12 (5-15) 10/29/24 17:35 Anion Gap Cancelled 10/29/24 17:35 BUN 21 mg/dL (4-19) H 10/29/24 17:35 BUN Cancelled 10/29/24 17:35 Creatinine 1.31 mg/dL (0.70-1.20) H 10/29/24 17:35 Creatinine Cancelled 10/29/24 17:35 Est GFR (MDRD) Non-Af 62 (>60) 10/29/24 17:35 Est GFR (MDRD) Non-Af Cancelled 10/29/24 17:35 BUN/Creatinine Ratio 15.8 RATIO (10-20) 10/29/24 17:35 BUN/Creatinine Ratio Cancelled 10/29/24 17:35 Glucose 251 mg/dL (70-99) H 10/29/24 17:35 Glucose Cancelled 10/29/24 17:35 Estimated Creatinine Clearance Estimated Creatinine Clearance: 68.1 Goal Trough Goal Trough: 15-20 mcg/mL Pharmacy Plan for Drug Dosing Pharmacy Plan for Drug Dosing: NEW START IV VANCOMYCIN Consulting Physician: Dr. Adams Indication: Sepsis Goal Trough: 15-20 SrCr: 1.31 CrCl: 68.1 ml/min Comments: Received 2000mg x1 dose @ 20:12 10/29/24 Vancomycin Dose: 1250mg Q12H to start @ 08:00 10/30/24 Pending Level: 10/31/24 @ 07:30 Pharmacy Service will continue to monitor and adjust dosing as required. Follow-Up Labs Follow-Up Labs: Trough: Vancomycin (10/31/24 @ 07:30)
--- NOTE | 2024-10-29 23:45 | RAD_ITS ---
PROCEDURE: FOOT MIN 3 VIEWS 10/29/2024 REASON FOR EXAM: POST OP TECHNIQUE: Procedure Code: RADFO Modality: DX Procedure: FOOT MIN 3 VIEWS Laterality: COMPARISON: Earlier on the same day. FINDINGS: Since the previous study, there has been amputation of the 5th toe through the mid shaft of the 5th metatarsal performed. Soft tissue swelling, thickening, and emphysematous changes are noted at the amputation stump.. No osseous erosive or destructive changes. Soft tissue swelling about the foot likely represents generalized cellulitis. Prominent posterior and plantar calcaneal enthesophytes are unchanged from the previous study. RAD/Foot min 3 Views IMPRESSION: As above. Reading Location: [id number]
[2024-10-30] VITALS (14 sets, daily range): BP systolic 123–155; BP diastolic 64–89; PULSE 83–113; RESP 14–27; TEMP 36.7–37.2; O2SAT 94–100; BMI 31.8
[2024-10-30] MEDS: 0.9% Normal Saline (1000mL) 1,000 ML 999 ML IV (00:58)
[2024-10-30] MEDS: 0.9% Normal Saline (1000mL) 1,000 ML 100 ML IV (04:37)
[2024-10-30] MEDS: Piperacil/Tazobactam 3.375 GM in 0.9% Normal Saline (50mL MB+) 50 ML IV ×3 (05:01→22:44)
[2024-10-30 05:11] LABS: Hematocrit 27.8 % (40-54); Hemoglobin 9.5 g/dL (13.0-16.5); Immature Granulocytes Count 0.080 X10^3/uL (0.0-0.0); Mean Corp Hgb Conc 34.2 g/dL (32-36); Mean Corpuscular Volume 90.3 fL (80-94); Mean Platelet Vol. 9.3 fl (6.2-12.0); NRBC Flagged by Analyzer 0 % (0-5); Platelet Count 199 K/mm3 (150-450); RBC Distribution Width CV 12.8 % (11.6-14.6); RBC Distribution Width SD 42.0 fl (35.1-43.9); Red Blood Count 3.08 M/mm3 (4.6-6.2); White Blood Count 13.5 K/mm3 (4.4-11.0)
[2024-10-30 05:52] LABS: AST(SGOT) 24 U/L (<=37); Alanine Aminotransfer ALT/SGPT 36 U/L (<=46); Albumin, Serum 2.6 g/dL (3.4-4.8); Alkaline Phosphatase 125 U/L (40-129); Anion Gap 9 (5-15); BUN 15 mg/dL (4-19); BUN/Creat Ratio 14.1 RATIO (10-20); Calcium,Total 8.0 mg/dL (7.6-11.0); Carbon Dioxide 21.4 mmol/L (21.0-32.0); Chloride 105 mmol/L (98-108); Estimated Creatinine Clearance 85.29 ml/min (50-250); Globulin 3.0 g/dL (2.2-4.2); Glucose 85 mg/dL (70-99); Potassium 3.6 mmol/L (3.3-5.1)
--- NOTE | 2024-10-30 07:41 | PCM.RX.CS ---
Consult Antibiotic Management Pharmacy has been consulted to manage selected antibiotic: Vancomycin Type of Intervention Type of Consult: Follow-up Labs Labs: Sodium 135 mmol/L (133-145) 10/30/24 05:00 Potassium 3.6 mmol/L (3.3-5.1) 10/30/24 05:00 Chloride 105 mmol/L (98-108) 10/30/24 05:00 Carbon Dioxide 21.4 mmol/L (21.0-32.0) 10/30/24 05:00 Anion Gap 9 (5-15) 10/30/24 05:00 BUN 15 mg/dL (4-19) 10/30/24 05:00 Creatinine 1.07 mg/dL (0.70-1.20) 10/30/24 05:00 Est GFR (MDRD) Non-Af 78 (>60) 10/30/24 05:00 BUN/Creatinine Ratio 14.1 RATIO (10-20) 10/30/24 05:00 Glucose 85 mg/dL (70-99) 10/30/24 05:00 Pharmacy Plan for Drug Dosing Pharmacy Plan for Drug Dosing: DAILY ASSESSMENT Current Vancomycin Dose: 1250MG Q12 Number of Doses Received: 1 (LOADING DOSE) Current Renal Function: Scr 1.07 mg/dL, CrCl 85 mL/min Renal Function Trend: improved Lab/Micro: wound, urine and blood cx pending Any Change in Vanc Plan: yes, CrCl improved to 85 mL/min, dose changed to 1750mg Q12 per policy. Pending Level: 10/31/24 @ 0730 Pharmacy Service will continue to monitor and adjust dosing as required.
[2024-10-30] MEDS: Lactobacillis Acidophilus 1 CAP PO ×4 (08:17→22:42)
[2024-10-30] MEDS: Vancomycin HCl 1,750 MG in 0.9% Normal Saline (500mL Bag) 500 ML 250 MG IV ×2 (08:18→19:48)
--- NOTE | 2024-10-30 09:26 | CASEMGMT ---
YELENA SAUER into pt room. Pt is NWB. Discussed DME, pt does not have a mobility aid at home. PT has not seen pt yet. Discussed HHC, Pt denied wanting HHC but understands he might need it. Will follow PT for recs on DME and DC plan. YELENA SAUER to follow up.
--- NOTE | 2024-10-30 10:33 | PCM.PN.HOSP ---
Subjective Subjective Doing well, had surgery last evening on his left foot Objective Data Objective Data Vital Signs: Vital Signs Temp Pulse Resp BP Pulse Ox O2 Del Method 98.2 F 83 16 131/73 H 94 Room Air 10/30/24 09:00 10/30/24 10:00 10/30/24 10:00 10/30/24 10:00 10/30/24 10:00 10/30/24 10:00 Oxygen Delivery Method Room Air Weight: 222 lb 14.197 oz Body Mass Index (BMI) 31.8 Intake & Output: Intake and Output for Last 24 Hours 10/29/24 10/30/24 10/31/24 03:59 03:59 03:59 Intake Total 4199.5 / 4199.5 150 / 150 Output Total 75 / 75 600 / 600 Balance 4124.5 / 4124.5 -450 / -450 Lab / Micro Data 10/30/24 05:00 10/30/24 05:00 Labs: Laboratory Results - last 24 hr 10/29/24 17:35: WBC 22.9 H 10/29/24 17:35: WBC Cancelled, Corrected WBC Cancelled, RBC 3.92 L 10/29/24 17:35: RBC Cancelled, Hgb 11.9 L 10/29/24 17:35: Hgb Cancelled, Hct 36.2 L 10/29/24 17:35: Hct Cancelled, MCV 92.3 10/29/24 17:35: MCV Cancelled, MCH 30.4 10/29/24 17:35: MCH Cancelled, MCHC 32.9 10/29/24 17:35: MCHC Cancelled, RDW Std Deviation 42.7 10/29/24 17:35: RDW Std Deviation Cancelled, RDW Coeff of Sujey 12.6 10/29/24 17:35: RDW Coeff of Sujey Cancelled, Plt Count TNP 10/29/24 17:35: Plt Count Cancelled, MPV TNP 10/29/24 17:35: MPV Cancelled, Immature Gran % (Auto) 0.900 10/29/24 17:35: Immature Gran % (Auto) Cancelled, Neut % (Auto) 84.4 H 10/29/24 17:35: Neut % (Auto) Cancelled, Lymph % (Auto) 4.1 L 10/29/24 17:35: Lymph % (Auto) Cancelled, [place] % (Auto) 7.8 10/29/24 17:35: [place] % (Auto) Cancelled, Eos % (Auto) 2.6 10/29/24 17:35: Eos % (Auto) Cancelled, Baso % (Auto) 0.2 10/29/24 17:35: Baso % (Auto) Cancelled, Neut # (Auto) Cancelled, Immature Gran # (Auto) Cancelled, Absolute Neuts (auto) 19.4 H 10/29/24 17:35: Absolute Neuts (auto) Cancelled, Absolute Lymphs (auto) 0.93 10/29/24 17:35: Absolute Lymphs (auto) Cancelled, Absolute Monos (auto) Cancelled, Total Counted Cancelled, Neutrophils % (Manual) Cancelled, Band Neutrophils % Cancelled, Lymphocytes % (Manual) Cancelled, Monocytes % (Manual) Cancelled, Eosinophils % (Manual) Cancelled, Basophils % (Manual) Cancelled, Metamyelocytes % Cancelled, Myelocytes % Cancelled, Promyelocytes % Cancelled, Blast Cells % Cancelled, Plasma Cell % (Manual) Cancelled, Other Cells % Cancelled, Nucleated RBC % 0 10/29/24 17:35: Nucleated RBC % Cancelled, Lymphocytes # Cancelled, Basophils # Cancelled, Nucleated RBCs/100 WBC Cancelled, Differential Comment SCANNED 10/29/24 17:35: Differential Comment Cancelled, Diff Path Review Cancelled, Hypersegmented Neuts Cancelled, Atypical Lymphocytes Cancelled, Reactive Lymphocytes Cancelled, Smudge Cells Cancelled, Eosinophilia # Cancelled, Toxic Granulation Cancelled, Toxic Vacuolation Cancelled, Dohle Bodies Cancelled, James Rods Cancelled, Platelet Estimate MKD INC 10/29/24 17:35: Platelet Estimate Cancelled, Plt Morphology Comment Cancelled, RBC Morphology Cancelled 10/29/24 17:35: RBC Morphology Cancelled, Polychromasia Cancelled, Hypochromasia Cancelled, Basophilic Stippling Cancelled, Anisocytosis Cancelled, Microcytosis Cancelled, Macrocytosis Cancelled, Spherocytes Cancelled, Sickle Cells Cancelled, Target Cells Cancelled, Tear Drop Cells Cancelled, Ovalocytes Cancelled, Stomatocytes Cancelled, [place] Bodies Cancelled, [place] Cells Cancelled, Bite Cells Cancelled, Crenated Cell Cancelled, Acanthocytes (Spur) Cancelled, Rouleaux Cancelled, Schistocytes Cancelled, ESR 84 H, PT 19.3 H, INR 1.6, APTT 21.5 L, Sodium 130 L 10/29/24 17:35: Sodium Cancelled, Potassium 4.3 10/29/24 17:35: Potassium Cancelled, Chloride 95 L 10/29/24 17:35: Chloride Cancelled, Carbon Dioxide 22.9 10/29/24 17:35: Carbon Dioxide Cancelled, Anion Gap 12 10/29/24 17:35: Anion Gap Cancelled, BUN 21 H 10/29/24 17:35: BUN Cancelled, Creatinine 1.31 H 10/29/24 17:35: Creatinine Cancelled, Estim Creat Clear Calc 68.18 10/29/24 17:35: Estim Creat Clear Calc Cancelled, Est GFR (MDRD) Non-Af 62 10/29/24 17:35: Est GFR (MDRD) Non-Af Cancelled, BUN/Creatinine Ratio 15.8 10/29/24 17:35: BUN/Creatinine Ratio Cancelled, Glucose 251 H 10/29/24 17:35: Glucose Cancelled, Lactic Acid 2.0, Calcium 9.2 10/29/24 17:35: Calcium Cancelled, Total Bilirubin 1.09 10/29/24 17:35: Total Bilirubin Cancelled, AST 41 H 10/29/24 17:35: AST Cancelled, ALT 57 H 10/29/24 17:35: ALT Cancelled, Alkaline Phosphatase 146 H 10/29/24 17:35: Alkaline Phosphatase Cancelled, C-React Prot Ext Range 348.00 H 10/29/24 17:35: C-React Prot Ext Range Cancelled, Total Protein 7.2 10/29/24 17:35: Total Protein Cancelled, Albumin 3.4 10/29/24 17:35: Albumin Cancelled, Globulin 3.9 10/29/24 17:35: Globulin Cancelled, Albumin/Globulin Ratio 0.9 10/29/24 17:35: Albumin/Globulin Ratio Cancelled, TSH 0.797 10/29/24 18:20: Urine Color Cancelled 10/29/24 18:20: Urine Color Yellow, Urine Clarity Cancelled 10/29/24 18:20: Urine Clarity Sl. Cloudy, Urine pH Cancelled 10/29/24 18:20: Urine pH 6.0, Ur Specific [place] Cancelled 10/29/24 18:20: Ur Specific [place] 1.015, U Specif Grav (Refrac) Cancelled, Urine Protein Cancelled 10/29/24 18:20: Urine Protein 30 H, Urine Glucose (UA) Cancelled 10/29/24 18:20: Urine Glucose (UA) 100 H, Urine Ketones Cancelled 10/29/24 18:20: Urine Ketones Negative, Urine Occult Blood Cancelled 10/29/24 18:20: Urine Occult Blood 10 H, Urine Nitrite Cancelled 10/29/24 18:20: Urine Nitrite Negative, Urine Bilirubin Cancelled 10/29/24 18:20: Urine Bilirubin Negative, Urine Urobilinogen Cancelled 10/29/24 18:20: Urine Urobilinogen Normal, Ur Leukocyte Esterase Cancelled 10/29/24 18:20: Ur Leukocyte Esterase Negative, Urine RBC Cancelled 10/29/24 18:20: Urine RBC 0 SEEN, Urine WBC Cancelled 10/29/24 18:20: Urine WBC 0-5 SEEN, Ur Squamous Epith Cells Cancelled 10/29/24 18:20: Ur Squamous Epith Cells 0-5 SEEN, Ur Transition Epith Cell Cancelled, Ur Renal Epithelial Cell Cancelled, Calcium Oxalate Crystal Cancelled, Uric Acid Crystals Cancelled, Triple Phos Crystals Cancelled, Other Crystals Cancelled, Amorphous Sediment Cancelled, Urine Bacteria Cancelled 10/29/24 18:20: Urine Bacteria RARE, Hyaline Casts Cancelled 10/29/24 18:20: Hyaline Casts 0-5 SEEN, Fine Granular Casts Cancelled, Coarse Granular Casts Cancelled, Waxy Casts Cancelled, RBC Casts Cancelled, WBC Casts Cancelled, Urine Mucus Cancelled 10/29/24 18:20: Urine Mucus 0 SEEN, Urine Trichomonas Cancelled, Urine Yeast Cancelled 10/29/24 22:16: MRSA (PCR) Negative 10/29/24 22:21: Hemoglobin A1c 6.7 H, Lactic Acid 1.1 10/29/24 23:54: POC Glucose 118 H 10/30/24 04:57: POC Glucose 84 10/30/24 05:00: WBC 13.5 H, RBC 3.08 L, Hgb 9.5 L, Hct 27.8 L, MCV 90.3, MCH 30.8, MCHC 34.2, RDW Std Deviation 42.0, RDW Coeff of Sujey 12.8, Plt Count 199, MPV 9.3, Immature Gran % (Auto) 0.600, Neut % (Auto) 80.7 H, Lymph % (Auto) 8.9 L, [place] % (Auto) 9.6, Eos % (Auto) 0.1, Baso % (Auto) 0.1, Absolute Neuts (auto) 10.9 H, Absolute Lymphs (auto) 1.20, Nucleated RBC % 0, Sodium 135, Potassium 3.6, Chloride 105, Carbon Dioxide 21.4, Anion Gap 9, BUN 15, Creatinine 1.07, Estim Creat Clear Calc 85.29, Est GFR (MDRD) Non-Af 78, BUN/Creatinine Ratio 14.1, Glucose 85, Calcium 8.0, Total Bilirubin 0.96, AST 24, ALT 36, Alkaline Phosphatase 125, Total Protein 5.7 L, Albumin 2.6 L, Globulin 3.0, Albumin/Globulin Ratio 0.9 Radiography Diagnostic Testing: Radiology Impression Foot X-Ray 10/29/24 18:35 IMPRESSION: No acute fractures or dislocations. Soft tissue edema and emphysema at the 5th toe. If there is additional concern for osteomyelitis, recommend further evaluation with MRI. Reading [facility] Foot [facility]-Ray 10/29/24 23:45 IMPRESSION: As above. Reading Location: [id number] Physical Exam Narrative General: Alert, Oriented x3, Cooperative, No apparent distress HEENT: Atraumatic, PERRLA, EOMI, Normocephalic Oral: Moist Mucosa Neck: Supple, No JVD Lungs: Diminished, Normal air movement, No rhonchi, No wheeze, No rales Cardiovascular: Regular rate, Regular Rhythm, Normal S1, Normal S2, No murmurs Abdomen: Soft, Non Tender, Non-Distended, No Hepato-splenomegaly Extremities: No edema, Capillary Refill Less than 3 Seconds Skin: Bilateral feet are wrapped and dressed Musculoskeletal: No Tenderness to Palpation of Joints or Extremities Neurological: No focal neurological deficits, moves all extremities, sensation is diminished due to neuropathy Psych/Mental Status: Normal Affect, Appropriate Assessment & Plan Assessment/Plan (1) Sepsis: QUALIFIERS: Sepsis type: sepsis due to unspecified organism Sepsis acute organ dysfunction status: without acute organ dysfunction Qualified Code(s): A41.9 - Sepsis, unspecified organism (2) Acute osteomyelitis of left foot: (3) Diabetic infection of left foot: PLAN: Plan 1. Left foot osteomyelitis and diabetic foot ulcer status postdebridement on 10/29/2024/DM2 ? Continue with broad-spectrum antibiotics ? He does not have sepsis secondary to insurance and he was not septic on admission ? Will transfer out of the ICU to [facility] 3 ? Will consult infectious disease tomorrow to be evaluated on Friday for outpatient antibiotics ? He is nonweightbearing on his left lower extremity and given the multiple ulcers he has on his right foot he is heel weightbearing on the right ? Appreciate podiatry's assistance ? Accu-Cheks ? Sliding scale insulin, hold his metformin ? Will monitor make adjustments as necessary 2. Essential HTN/HLD ? Blood pressure stable ? Continue to monitor ? Resume his home medications 3. History of DVT/PE ? Stable ? Resume Xarelto when okay with surgery 4. Gout ? Stable ? Continue with allopurinol DVT: SCDs Charges/Coding Visit Charges Inpatient E&M: 47904 Subs Hosp L2
--- NOTE | 2024-10-30 12:16 | PN_ITS ---
Subjective Subjective Patient was seen today for follow up on bilateral feet. He relates he is feeling better, no new complaints, no f/c/n/v/sob/chest pain. Objective Data Objective Data Vital Signs: Vital Signs Temp Pulse Resp BP Pulse Ox O2 Del Method 98.2 F 83 16 131/73 H 94 Room Air 10/30/24 09:00 10/30/24 10:00 10/30/24 10:00 10/30/24 10:00 10/30/24 10:00 10/30/24 10:00 Oxygen Delivery Method Room Air Weight: 101.1 kg Body Mass Index (BMI) 31.8 Intake & Output: Intake and Output for Last 24 Hours 10/28/24 10/29/24 10/30/24 23:59 23:59 23:59 Intake Total 2640 / 2640 2244.5 / 2244.5 Output Total 75 / 75 600 / 600 Balance 2565 / 2565 1644.5 / 1644.5 Lab / Micro Data 10/30/24 05:00 10/30/24 05:00 Labs: Laboratory Results - last 24 hr 10/29/24 17:35: WBC 22.9 H 10/29/24 17:35: WBC Cancelled, Corrected WBC Cancelled, RBC 3.92 L 10/29/24 17:35: RBC Cancelled, Hgb 11.9 L 10/29/24 17:35: Hgb Cancelled, Hct 36.2 L 10/29/24 17:35: Hct Cancelled, MCV 92.3 10/29/24 17:35: MCV Cancelled, MCH 30.4 10/29/24 17:35: MCH Cancelled, MCHC 32.9 10/29/24 17:35: MCHC Cancelled, RDW Std Deviation 42.7 10/29/24 17:35: RDW Std Deviation Cancelled, RDW Coeff of Sujey 12.6 10/29/24 17:35: RDW Coeff of Sujey Cancelled, Plt Count TNP 10/29/24 17:35: Plt Count Cancelled, MPV TNP 10/29/24 17:35: MPV Cancelled, Immature Gran % (Auto) 0.900 10/29/24 17:35: Immature Gran % (Auto) Cancelled, Neut % (Auto) 84.4 H 10/29/24 17:35: Neut % (Auto) Cancelled, Lymph % (Auto) 4.1 L 10/29/24 17:35: Lymph % (Auto) Cancelled, [place] % (Auto) 7.8 10/29/24 17:35: [place] % (Auto) Cancelled, Eos % (Auto) 2.6 10/29/24 17:35: Eos % (Auto) Cancelled, Baso % (Auto) 0.2 10/29/24 17:35: Baso % (Auto) Cancelled, Neut # (Auto) Cancelled, Immature Gran # (Auto) Cancelled, Absolute Neuts (auto) 19.4 H 10/29/24 17:35: Absolute Neuts (auto) Cancelled, Absolute Lymphs (auto) 0.93 10/29/24 17:35: Absolute Lymphs (auto) Cancelled, Absolute Monos (auto) Cancelled, Total Counted Cancelled, Neutrophils % (Manual) Cancelled, Band Neutrophils % Cancelled, Lymphocytes % (Manual) Cancelled, Monocytes % (Manual) Cancelled, Eosinophils % (Manual) Cancelled, Basophils % (Manual) Cancelled, Metamyelocytes % Cancelled, Myelocytes % Cancelled, Promyelocytes % Cancelled, Blast Cells % Cancelled, Plasma Cell % (Manual) Cancelled, Other Cells % Cancelled, Nucleated RBC % 0 10/29/24 17:35: Nucleated RBC % Cancelled, Lymphocytes # Cancelled, Basophils # Cancelled, Nucleated RBCs/100 WBC Cancelled, Differential Comment SCANNED 10/29/24 17:35: Differential Comment Cancelled, Diff Path Review Cancelled, Hypersegmented Neuts Cancelled, Atypical Lymphocytes Cancelled, Reactive Lymphocytes Cancelled, Smudge Cells Cancelled, Eosinophilia # Cancelled, Toxic Granulation Cancelled, Toxic Vacuolation Cancelled, Dohle Bodies Cancelled, James Rods Cancelled, Platelet Estimate MKD INC 10/29/24 17:35: Platelet Estimate Cancelled, Plt Morphology Comment Cancelled, RBC Morphology Cancelled 10/29/24 17:35: RBC Morphology Cancelled, Polychromasia Cancelled, Hypochromasia Cancelled, Basophilic Stippling Cancelled, Anisocytosis Cancelled, Microcytosis Cancelled, Macrocytosis Cancelled, Spherocytes Cancelled, Sickle Cells Cancelled, Target Cells Cancelled, Tear Drop Cells Cancelled, Ovalocytes Cancelled, Stomatocytes Cancelled, [place] Bodies Cancelled, Janna Cells Cancelled, Bite Cells Cancelled, Crenated Cell Cancelled, Acanthocytes (Spur) Cancelled, Rouleaux Cancelled, Schistocytes Cancelled, ESR 84 H, PT 19.3 H, INR 1.6, APTT 21.5 L, Sodium 130 L 10/29/24 17:35: Sodium Cancelled, Potassium 4.3 10/29/24 17:35: Potassium Cancelled, Chloride 95 L 10/29/24 17:35: Chloride Cancelled, Carbon Dioxide 22.9 10/29/24 17:35: Carbon Dioxide Cancelled, Anion Gap 12 10/29/24 17:35: Anion Gap Cancelled, BUN 21 H 10/29/24 17:35: BUN Cancelled, Creatinine 1.31 H 10/29/24 17:35: Creatinine Cancelled, Estim Creat Clear Calc 68.18 10/29/24 17:35: Estim Creat Clear Calc Cancelled, Est GFR (MDRD) Non-Af 62 10/29/24 17:35: Est GFR (MDRD) Non-Af Cancelled, BUN/Creatinine Ratio 15.8 10/29/24 17:35: BUN/Creatinine Ratio Cancelled, Glucose 251 H 10/29/24 17:35: Glucose Cancelled, Lactic Acid 2.0, Calcium 9.2 10/29/24 17:35: Calcium Cancelled, Total Bilirubin 1.09 10/29/24 17:35: Total Bilirubin Cancelled, AST 41 H 10/29/24 17:35: AST Cancelled, ALT 57 H 10/29/24 17:35: ALT Cancelled, Alkaline Phosphatase 146 H 10/29/24 17:35: Alkaline Phosphatase Cancelled, C-React Prot Ext Range 348.00 H 10/29/24 17:35: C-React Prot Ext Range Cancelled, Total Protein 7.2 10/29/24 17:35: Total Protein Cancelled, Albumin 3.4 10/29/24 17:35: Albumin Cancelled, Globulin 3.9 10/29/24 17:35: Globulin Cancelled, Albumin/Globulin Ratio 0.9 10/29/24 17:35: Albumin/Globulin Ratio Cancelled, TSH 0.797 10/29/24 18:20: Urine Color Cancelled 10/29/24 18:20: Urine Color Yellow, Urine Clarity Cancelled 10/29/24 18:20: Urine Clarity Sl. Cloudy, Urine pH Cancelled 10/29/24 18:20: Urine pH 6.0, Ur Specific [place] Cancelled 10/29/24 18:20: Ur Specific [place] 1.015, U Specif Grav (Refrac) Cancelled, Urine Protein Cancelled 10/29/24 18:20: Urine Protein 30 H, Urine Glucose (UA) Cancelled 10/29/24 18:20: Urine Glucose (UA) 100 H, Urine Ketones Cancelled 10/29/24 18:20: Urine Ketones Negative, Urine Occult Blood Cancelled 10/29/24 18:20: Urine Occult Blood 10 H, Urine Nitrite Cancelled 10/29/24 18:20: Urine Nitrite Negative, Urine Bilirubin Cancelled 10/29/24 18:20: Urine Bilirubin Negative, Urine Urobilinogen Cancelled 10/29/24 18:20: Urine Urobilinogen Normal, Ur Leukocyte Esterase Cancelled 10/29/24 18:20: Ur Leukocyte Esterase Negative, Urine RBC Cancelled 10/29/24 18:20: Urine RBC 0 SEEN, Urine WBC Cancelled 10/29/24 18:20: Urine WBC 0-5 SEEN, Ur Squamous Epith Cells Cancelled 10/29/24 18:20: Ur Squamous Epith Cells 0-5 SEEN, Ur Transition Epith Cell Cancelled, Ur Renal Epithelial Cell Cancelled, Calcium Oxalate Crystal Cancelled, Uric Acid Crystals Cancelled, Triple Phos Crystals Cancelled, Other Crystals Cancelled, Amorphous Sediment Cancelled, Urine Bacteria Cancelled 10/29/24 18:20: Urine Bacteria RARE, Hyaline Casts Cancelled 10/29/24 18:20: Hyaline Casts 0-5 SEEN, Fine Granular Casts Cancelled, Coarse Granular Casts Cancelled, Waxy Casts Cancelled, RBC Casts Cancelled, WBC Casts Cancelled, Urine Mucus Cancelled 10/29/24 18:20: Urine Mucus 0 SEEN, Urine Trichomonas Cancelled, Urine Yeast Cancelled 10/29/24 22:16: MRSA (PCR) Negative 10/29/24 22:21: Hemoglobin A1c 6.7 H, Lactic Acid 1.1 10/29/24 23:54: POC Glucose 118 H 10/30/24 04:57: POC Glucose 84 10/30/24 05:00: WBC 13.5 H, RBC 3.08 L, Hgb 9.5 L, Hct 27.8 L, MCV 90.3, MCH 30.8, MCHC 34.2, RDW Std Deviation 42.0, RDW Coeff of Sujey 12.8, Plt Count 199, MPV 9.3, Immature Gran % (Auto) 0.600, Neut % (Auto) 80.7 H, Lymph % (Auto) 8.9 L, [place] % (Auto) 9.6, Eos % (Auto) 0.1, Baso % (Auto) 0.1, Absolute Neuts (auto) 10.9 H, Absolute Lymphs (auto) 1.20, Nucleated RBC % 0, Sodium 135, Potassium 3.6, Chloride 105, Carbon Dioxide 21.4, Anion Gap 9, BUN 15, Creatinine 1.07, Estim Creat Clear Calc 85.29, Est GFR (MDRD) Non-Af 78, BUN/Creatinine Ratio 14.1, Glucose 85, Calcium 8.0, Total Bilirubin 0.96, AST 24, ALT 36, Alkaline Phosphatase 125, Total Protein 5.7 L, Albumin 2.6 L, Globulin 3.0, Albumin/Globulin Ratio 0.9 10/30/24 11:08: POC Glucose 99 Radiography Diagnostic Testing: Radiology Impression Foot X-Ray 10/29/24 18:35 IMPRESSION: No acute fractures or dislocations. Soft tissue edema and emphysema at the 5th toe. If there is additional concern for osteomyelitis, recommend further evaluation with MRI. [facility] Foot X-Ray 10/29/24 23:45 IMPRESSION: As above. Reading Location: [id number] Physical Exam Const alert, oriented x3 and no apparent distress Constitutional Narrative: s/p debridement down to and including bone left foot - tissues are healthy and viable, no fluctuance, no purulence, no necrosis, no crepitus, no maloder, less erythema and less edema to foot, bleeding controlled, no evidence of acute ischemia. Right foot with chronic ulceration to distal tip of 2nd toe and sub 5th MTPJ - there is less edema and erythema today, ulcers down to subcutaneous tissue and do look better today with more viable tissue, no purulence, no visible abscess, no crepitus, no fluctuance, no maloder. No evidence of acute ischemia right foot. General Appearance: comfortable Assessment & Plan Assessment/Plan (1) Gangrene, not elsewhere classified: (2) Acute osteomyelitis of left foot: (3) Cellulitis of left lower limb: (4) Diabetes mellitus with diabetic polyneuropathy: QUALIFIERS: Diabetes mellitus type: type 2 Diabetes mellitus [facility] insulin use: without manager intermediate use Qualified Code(s): E11.42 - Type 2 diabetes mellitus with diabetic polyneuropathy (5) Type 2 diabetes mellitus with foot ulcer: PLAN: Plan s/p left foot debridement on 10/29/2024 - clinically much improved today, right foot improved as well Cultures left foot and ulcer right foot has been obtained and final results pending Wound care left foot: normal saline wet to dry gauze, with overlying gauze, kerlix, abd pads and rachel dressing daily - plan for wound vac likely Friday Wound care right foot: betadine solution, gauze, kerlix and rachel dressing changes daily No weightbearing left foot, heel weightbearing right foot Keep left foot elevated LEAS have been ordered and pending - no evidence of acute ischemia at this time Podiatry will continue to follow
--- NOTE | 2024-10-30 22:43 | NURSING ---
Attempted to encourage Pt to get out of bed again. Pt refusing at the time. Reviewed with patient Dr Aguiar Weightbearing status order as well as his progress report pertaining to weightbearing status. patient states he isn't comfortable and states he wants to wait until he talks to Dr Lynch tomorrow.
[2024-10-31 03:30] VITALS: BP 137/84; PULSE 75; RESP 17; TEMP 36.7; O2SAT 98
[2024-10-31 05:23] VITALS: BMI 32.1
[2024-10-31] MEDS: Piperacil/Tazobactam 3.375 GM in 0.9% Normal Saline (50mL MB+) 50 ML IV ×3 (05:53→22:23)
[2024-10-31 07:50] LABS: Hematocrit 31.4 % (40-54); Hemoglobin 10.6 g/dL (13.0-16.5); Immature Granulocytes Count 0.040 X10^3/uL (0.0-0.0); Mean Corp Hgb Conc 33.8 g/dL (32-36); Mean Corpuscular Volume 91.0 fL (80-94); Mean Platelet Vol. 9.2 fl (6.2-12.0); NRBC Flagged by Analyzer 0 % (0-5); Platelet Count 224 K/mm3 (150-450); RBC Distribution Width CV 12.6 % (11.6-14.6); RBC Distribution Width SD 41.5 fl (35.1-43.9); Red Blood Count 3.45 M/mm3 (4.6-6.2); White Blood Count 9.9 K/mm3 (4.4-11.0)
[2024-10-31 08:49] LABS: AST(SGOT) 44 U/L (<=37); Alanine Aminotransfer ALT/SGPT 46 U/L (<=46); Albumin, Serum 2.7 g/dL (3.4-4.8); Alkaline Phosphatase 147 U/L (40-129); Anion Gap 10 (5-15); BUN 15 mg/dL (4-19); BUN/Creat Ratio 14.9 RATIO (10-20); Calcium,Total 8.7 mg/dL (7.6-11.0); Carbon Dioxide 22.8 mmol/L (21.0-32.0); Chloride 103 mmol/L (98-108); Estimated Creatinine Clearance 92.40 ml/min (50-250); Globulin 3.3 g/dL (2.2-4.2); Glucose 86 mg/dL (70-99); Potassium 3.7 mmol/L (3.3-5.1); Vancomycin, Trough Level 17.8 ug/mL (5.0-15.0)
[2024-10-31 09:05] VITALS: BP 142/80; PULSE 87; RESP 16; TEMP 36.5; O2SAT 99
[2024-10-31] MEDS: Lactobacillis Acidophilus 1 CAP PO ×4 (09:08→22:16)
[2024-10-31] MEDS: Vancomycin HCl 1,750 MG in 0.9% Normal Saline (500mL Bag) 500 ML 250 MG IV ×2 (10:20→20:08)
--- NOTE | 2024-10-31 10:24 | PHA.PHARE_ITS ---
Consult Antibiotic Management Pharmacy has been consulted to manage selected antibiotic: Vancomycin Type of Intervention Type of Consult: Follow-up Labs Labs: Sodium 136 mmol/L (133-145) 10/31/24 07:36 Potassium 3.7 mmol/L (3.3-5.1) 10/31/24 07:36 Chloride 103 mmol/L (98-108) 10/31/24 07:36 Carbon Dioxide 22.8 mmol/L (21.0-32.0) 10/31/24 07:36 Anion Gap 10 (5-15) 10/31/24 07:36 BUN 15 mg/dL (4-19) 10/31/24 07:36 Creatinine 0.99 mg/dL (0.70-1.20) 10/31/24 07:36 Est GFR (MDRD) Non-Af 86 (>60) 10/31/24 07:36 BUN/Creatinine Ratio 14.9 RATIO (10-20) 10/31/24 07:36 Glucose 86 mg/dL (70-99) 10/31/24 07:36 Vancomycin Trough 17.8 ug/mL (5.0-15.0) H 10/31/24 07:36 Microbiology Microbiology: Microbiology 10/29/24 20:15 Wound - Right Foot Gram Stain - Final 10/29/24 20:15 Wound - Right Foot Wound Culture - Preliminary Staphylococcus aureus 10/29/24 17:45 Wound - Toe Gram Stain - Final 10/29/24 17:45 Wound - Toe Wound Culture - Preliminary Gram negative lea 10/29/24 17:45 Wound - Left Foot Gram Stain - Final 10/29/24 17:45 Wound - Left Foot Wound Culture - Preliminary Gram negative lea Gram positive organism 10/29/24 20:15 Wound - Left Foot Gram Stain - Final 10/29/24 20:15 Wound - Left Foot Gram Stain - Final Pharmacy Plan for Drug Dosing Pharmacy Plan for Drug Dosing: VANCOMYCIN LEVEL RECEIVED Current Vancomycin Dose: 1750MG Q12 Number of Doses Received: 3 Vancomycin Level: 17.8 MG/DL Hours Since Last Dose: 12 Renal Function: SCr 0.99 mg/dL, CrCl 92.4 mL/min Renal Function Trend: improving Vancomycin Plan/Comments: 12 hour trough is therapeutic at 17.8 mg/dL (goal 15- 20). Will continue current dosing and get a level in 2 days. Pending Level: 11/02/24 @ 0730 Pharmacy Service will continue to monitor and adjust dosing as required.
--- NOTE | 2024-10-31 11:15 | PCM.PN.HOSP ---
Reason for Visit Chief Complaint: Worsening Left Foot Wound with Fever. Objective Data Objective Data Vital Signs: Vital Signs Temp Pulse Resp BP Pulse Ox O2 Del Method 97.7 F L 87 16 142/80 H 99 Room Air 10/31/24 09:05 10/31/24 09:05 10/31/24 09:05 10/31/24 09:05 10/31/24 09:05 10/31/24 09:05 Oxygen Delivery Method Room Air Weight: 223 lb 15.834 oz Body Mass Index (BMI) 32.1 Intake & Output: Intake and Output for Last 24 Hours 10/29/24 10/30/24 10/31/24 23:59 23:59 23:59 Intake Total 2640 / 2640 4189.5 / 4189.5 400 / 400 Output Total 75 / 75 1025 / 1025 1600 / 1600 Balance 2565 / 2565 3164.5 / 3164.5 -1200 / -1200 Lab / Micro Data 10/31/24 07:36 10/31/24 07:36 Labs: Laboratory Results - last 24 hr 10/30/24 11:08: POC Glucose 99 10/30/24 16:47: POC Glucose 70 L 10/30/24 22:43: POC Glucose 95 10/31/24 05:52: POC Glucose 78 10/31/24 07:36: WBC 9.9, RBC 3.45 L, Hgb 10.6 L, Hct 31.4 L, MCV 91.0, MCH 30.7, MCHC 33.8, RDW Std Deviation 41.5, RDW Coeff of Sujey 12.6, Plt Count 224, MPV 9.2, Immature Gran % (Auto) 0.400, Neut % (Auto) 70.2 H, Lymph % (Auto) 16.7 L, [place] % (Auto) 11.0 H, Eos % (Auto) 1.3, Baso % (Auto) 0.4, Absolute Neuts (auto) 6.9, Absolute Lymphs (auto) 1.65, Nucleated RBC % 0, Sodium 136, Potassium 3.7, Chloride 103, Carbon Dioxide 22.8, Anion Gap 10, BUN 15, Creatinine 0.99, Estim Creat Clear Calc 92.40, Est GFR (MDRD) Non-Af 86, BUN/Creatinine Ratio 14.9, Glucose 86, Calcium 8.7, Total Bilirubin 0.54, AST 44 H, ALT 46, Alkaline Phosphatase 147 H, Total Protein 6.0, Albumin 2.7 L, Globulin 3.3, Albumin/Globulin Ratio 0.8 L, Vancomycin Trough 17.8 H Micro: Microbiology 10/29/24 20:15 Wound - Right Foot Gram Stain - Final 10/29/24 20:15 Wound - Right Foot Wound Culture - Preliminary Staphylococcus aureus 10/29/24 17:45 Wound - Toe Gram Stain - Final 10/29/24 17:45 Wound - Toe Wound Culture - Preliminary Gram negative lea 10/29/24 17:45 Wound - Left Foot Gram Stain - Final 10/29/24 17:45 Wound - Left Foot Wound Culture - Preliminary Gram negative lea Gram positive organism 10/29/24 20:15 Wound - Left Foot Gram Stain - Final 10/29/24 20:15 Wound - Left Foot Gram Stain - Final Physical Exam Narrative Seen and examined. Bilateral lower leg/feet ulcer left worse than right. Right superficial ulcer over lateral toes/lateral margin of forefoot. History of diabetes mellitus for many years, complicated with diabetic neuropathy. Did not move bowels since Friday. Usually most bowel in 1.5 days. Physical exam General: Alert, Oriented x3, Cooperative. Obesity grade 1, BMI 32.1 kg/m? HEENT: Atraumatic, PERRLA, EOMI, Normocephalic. Oral: No Gingival or Mucosal Lesions/ Ulcerations Neck: Supple, No JVD, Negative Carotid Bruits Chest wall/Lungs: Air entry diminished in bilateral lung bases. No crepitation/rhonchi Cardiovascular: Regular rate and rhythm, Normal S1,S2, No M/G/R Abdomen: Bowel Sounds Present, Soft, Non Tender, Non-Distended : No dysuria. No renal angle tenderness. No suprapubic tenderness. Extremities: No edema, Capillary Refill Less than 3 Seconds Skin: Ulcer over left and right feet covered with a dressing. Left foot with Arnol wrap bandage. Musculoskeletal: No Tenderness to Palpation of Joints or Extremities Neurological: Cranial nerves II-XII grossly intact, DTR 2+/4. Neuropathy. Psych/Mental Status: Flat affect. Assessment & Plan Assessment/Plan (1) Sepsis: QUALIFIERS: Sepsis type: sepsis due to unspecified organism Sepsis acute organ dysfunction status: without acute organ dysfunction Qualified Code(s): A41.9 - Sepsis, unspecified organism (2) Acute osteomyelitis of left foot: (3) Diabetic infection of left foot: PLAN: Plan 64-year-old gentleman was admitted with high fever 103.7 Fahrenheit, drainage from the little toe of left foot with no sensation. X-ray of the foot shows subcutaneous air and destruction of proximal phalanx of the little toe/probably head of the fifth metatarsal. 1. Left foot osteomyelitis and diabetic foot ulcer status postdebridement: Patient initially admitted in ICU and then transferred to [facility]. Patient has left fifth toe and fifth metatarsal osteomyelitis, gas gangrene as per operative note. Debridement of ulceration down including bone on 10/29/2024 Does not meet criteria for sepsis at the time of admission. Started on broad-spectrum antibiotic IV vancomycin and Zosyn. Prelim wound culture growing Staph aureus. ID consulted for tomorrow. Continue nonweightbearing on his left lower extremity and given the multiple ulcers he has on his right foot he is heel weightbearing on the right 2. Complicated DM type II with diabetic polyneuropathy: Glucose 86. [place] also between 70-99. Avoid hypoglycemia. On hypoglycemia protocol. Hold metformin 3. Essential hypertension and dyslipidemia ?Blood pressure 142/80. Controlled. Lisinopril and metoprolol resumed. ? Continue to monitor 4. Chronic DVT/PE Xarelto resumed 5. Gout ? Continue with allopurinol DVT: SCDs Charges/Coding Visit Charges Inpatient E&M: 37344 Subs Hosp L2
--- NOTE | 2024-10-31 12:53 | PN_ITS ---
Subjective Subjective Patient was seen today for follow up on bilateral feet. He is resting comfortably in bed, no f/c/n/v or any new complaints. His girlfriend is at bedside visiting. Objective Data Objective Data Vital Signs: Vital Signs Temp Pulse Resp BP Pulse Ox O2 Del Method 97.7 F L 87 16 142/80 H 99 Room Air 10/31/24 09:05 10/31/24 09:05 10/31/24 09:05 10/31/24 09:05 10/31/24 09:05 10/31/24 09:05 Oxygen Delivery Method Room Air Weight: 101.6 kg Body Mass Index (BMI) 32.1 Intake & Output: Intake and Output for Last 24 Hours 10/29/24 10/30/24 10/31/24 23:59 23:59 23:59 Intake Total 2640 / 2640 4189.5 / 4189.5 935 / 935 Output Total 75 / 75 1025 / 1025 1600 / 1600 Balance 2565 / 2565 3164.5 / 3164.5 -665 / -665 Lab / Micro Data 10/31/24 07:36 10/31/24 07:36 Labs: Laboratory Results - last 24 hr 10/30/24 16:47: POC Glucose 70 L 10/30/24 22:43: POC Glucose 95 10/31/24 05:52: POC Glucose 78 10/31/24 07:36: WBC 9.9, RBC 3.45 L, Hgb 10.6 L, Hct 31.4 L, MCV 91.0, MCH 30.7, MCHC 33.8, RDW Std Deviation 41.5, RDW Coeff of Sujey 12.6, Plt Count 224, MPV 9.2, Immature Gran % (Auto) 0.400, Neut % (Auto) 70.2 H, Lymph % (Auto) 16.7 L, [place] % (Auto) 11.0 H, Eos % (Auto) 1.3, Baso % (Auto) 0.4, Absolute Neuts (auto) 6.9, Absolute Lymphs (auto) 1.65, Nucleated RBC % 0, Sodium 136, Potassium 3.7, Chloride 103, Carbon Dioxide 22.8, Anion Gap 10, BUN 15, Creatinine 0.99, Estim Creat Clear Calc 92.40, Est GFR (MDRD) Non-Af 86, BUN/Creatinine Ratio 14.9, Glucose 86, Calcium 8.7, Total Bilirubin 0.54, AST 44 H, ALT 46, Alkaline Phosphatase 147 H, Total Protein 6.0, Albumin 2.7 L, Globulin 3.3, A lbumin/Globulin Ratio 0.8 L, Vancomycin Trough 17.8 H 10/31/24 11:02: POC Glucose 176 H Micro: Microbiology 10/29/24 20:15 Wound - Left Foot Gram Stain - Final 10/29/24 20:15 Wound - Left Foot Wound Culture - Preliminary Gram negative lea Beta hemolytic organism 10/29/24 20:15 Wound - Right Foot Gram Stain - Final 10/29/24 20:15 Wound - Right Foot Wound Culture - Preliminary Staphylococcus aureus 10/29/24 17:45 Wound - Toe Gram Stain - Final 10/29/24 17:45 Wound - Toe Wound Culture - Preliminary Gram negative lea 10/29/24 17:45 Wound - Left Foot Gram Stain - Final 10/29/24 17:45 Wound - Left Foot Wound Culture - Preliminary Gram negative lea Gram positive organism 10/29/24 20:15 Wound - Left Foot Gram Stain - Final Physical Exam Const alert, oriented x3 and no apparent distress Constitutional Narrative: s/p debridement down to and including bone left foot - tissues are healthy and viable, hemostasis achieved, no fluctuance, no purulence, no necrosis, no crepitus, no maloder, continued less erythema and less edema to foot, bleeding remains controlled, no evidence of acute ischemia. Right foot with chronic ulceration to distal tip of 2nd toe and sub 5th MTPJ - there is even less edema and erythema today, ulcers down to subcutaneous tissue and do continue to look better today with more viable tissue, no purulence, no visible abscess, no crepitus, no fluctuance, no maloder. No evidence of acute ischemia right foot. Calf soft and supple with no calf pain bilateral. 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 Ok to resume anticoagulation from foot standpoint. Cultures left foot and ulcer right foot has been obtained, reviewed preliminary results, final results pending Wound care left foot: normal saline wet to dry gauze, with overlying gauze, kerlix, abd pads and rachel dressing daily - plan for wound vac Friday Wound care right foot: betadine solution, gauze, kerlix and rachel dressing changes daily No weightbearing left foot, heel weightbearing right foot Keep left foot elevated LEAS have been ordered and pending - no evidence of acute ischemia at this time Podiatry will continue to follow
[2024-10-31 14:07] VITALS: BP 143/80; PULSE 80; RESP 16; TEMP 36.4; O2SAT 99
[2024-10-31 14:11] VITALS: PULSE 80
[2024-10-31] MEDS: 0.9% Normal Saline (250mL Bag) 250 ML IV (14:12)
[2024-10-31 20:06] VITALS: BP 144/84; PULSE 81; RESP 18; TEMP 36.5; O2SAT 100
[2024-10-31] MEDS: 0.9% Saline Lock 10 ML Syringe IV (20:16)
[2024-11-01 02:45] VITALS: BP 148/86; PULSE 95; RESP 18; TEMP 36.4; O2SAT 98
[2024-11-01] MEDS: Piperacil/Tazobactam 3.375 GM in 0.9% Normal Saline (50mL MB+) 50 ML IV ×3 (05:51→23:44)
[2024-11-01 06:07] LABS: Hematocrit 31.2 % (40-54); Hemoglobin 10.2 g/dL (13.0-16.5); Immature Granulocytes Count 0.030 X10^3/uL (0.0-0.0); Mean Corp Hgb Conc 32.7 g/dL (32-36); Mean Corpuscular Volume 90.7 fL (80-94); Mean Platelet Vol. 9.3 fl (6.2-12.0); NRBC Flagged by Analyzer 0 % (0-5); Platelet Count 258 K/mm3 (150-450); RBC Distribution Width CV 12.4 % (11.6-14.6); RBC Distribution Width SD 41.1 fl (35.1-43.9); Red Blood Count 3.44 M/mm3 (4.6-6.2); White Blood Count 8.4 K/mm3 (4.4-11.0)
[2024-11-01 06:24] LABS: AST(SGOT) 45 U/L (<=37); Alanine Aminotransfer ALT/SGPT 60 U/L (<=46); Albumin, Serum 2.7 g/dL (3.4-4.8); Alkaline Phosphatase 141 U/L (40-129); Anion Gap 9 (5-15); BUN 16 mg/dL (4-19); BUN/Creat Ratio 16.9 RATIO (10-20); Calcium,Total 8.7 mg/dL (7.6-11.0); Carbon Dioxide 24.1 mmol/L (21.0-32.0); Chloride 103 mmol/L (98-108); Estimated Creatinine Clearance 94.31 ml/min (50-250); Globulin 3.2 g/dL (2.2-4.2); Glucose 122 mg/dL (70-99); Potassium 3.7 mmol/L (3.3-5.1)
[2024-11-01 06:53] VITALS: BMI 31.6
[2024-11-01 08:00] VITALS: BP 135/74; PULSE 80; RESP 18; TEMP 36.9; O2SAT 98
--- NOTE | 2024-11-01 08:54 | NURSING ---
[employer] called 0850- Serial number [id number] for start date 11/01/2024, Confirmation number [id number]
--- NOTE | 2024-11-01 09:24 | PN.HOSP_ITS ---
Reason for Visit Chief Complaint: Worsening Left Foot Wound with Fever. Objective Data Objective Data Vital Signs: Vital Signs Temp Pulse Resp BP Pulse Ox O2 Del Method 97.6 F L 95 18 148/86 H 98 Room Air 11/01/24 02:45 11/01/24 02:45 11/01/24 02:45 11/01/24 02:45 11/01/24 02:45 11/01/24 02:45 Oxygen Delivery Method Room Air Weight: 221 lb Body Mass Index (BMI) 31.6 Intake & Output: Intake and Output for Last 24 Hours 10/30/24 10/31/24 11/01/24 23:59 23:59 23:59 Intake Total 4189.5 / 4189.5 1874.1 / 1874.1 610 / 610 Output Total 1025 / 1025 3300 / 3300 700 / 700 Balance 3164.5 / 3164.5 -1425.9 / -1425.9 -90 / -90 Lab / Micro Data 11/01/24 05:30 11/01/24 05:30 Labs: Laboratory Results - last 24 hr 10/31/24 11:02: POC Glucose 176 H 10/31/24 16:31: POC Glucose 146 H 10/31/24 22:19: POC Glucose 134 H 11/01/24 05:30: WBC 8.4, RBC 3.44 L, Hgb 10.2 L, Hct 31.2 L, MCV 90.7, MCH 29.7, MCHC 32.7, RDW Std Deviation 41.1, RDW Coeff of Sujey 12.4, Plt Count 258, MPV 9.3, Immature Gran % (Auto) 0.400, Neut % (Auto) 66.3, Lymph % (Auto) 20.1, [place] % (Auto) 10.1 H, Eos % (Auto) 2.6, Baso % (Auto) 0.5, Absolute Neuts (auto) 5.6, Absolute Lymphs (auto) 1.69, Nucleated RBC % 0, Sodium 137, Potassium 3.7, Chloride 103, Carbon Dioxide 24.1, Anion Gap 9, BUN 16, Creatinine 0.97, Estim Creat Clear Calc 94.31, Est GFR (MDRD) Non-Af 88, BUN/Creatinine Ratio 16.9, G lucose 122 H, Calcium 8.7, Total Bilirubin 0.47, AST 45 H, ALT 60 H, Alkaline Phosphatase 141 H, Total Protein 5.9, Albumin 2.7 L, Globulin 3.2, A lbumin/Globulin Ratio 0.8 L 11/01/24 05:50: POC Glucose 124 H Micro: Microbiology 10/29/24 17:45 Wound - Left Foot Gram Stain - Final 10/29/24 17:45 Wound - Left Foot Wound Culture - Preliminary Proteus mirabilis Gram positive organism 10/29/24 17:45 Wound - Toe Gram Stain - Final 10/29/24 17:45 Wound - Toe Wound Culture - Preliminary Proteus mirabilis Mixed Gram Positive Organisms 10/29/24 20:15 Wound - Right Foot Gram Stain - Final 10/29/24 20:15 Wound - Right Foot Wound Culture - Preliminary Staphylococcus aureus Gram positive organism 10/29/24 18:20 Blood Culture (Wb) - Anticubital Left Blood Culture - Preliminary No growth in 48 hours. 10/29/24 17:35 Blood Culture (Wb) - Anticubital Left Blood Culture - Preliminary No growth in 48 hours. 10/29/24 20:15 Wound - Left Foot Gram Stain - Final 10/29/24 20:15 Wound - Left Foot Wound Culture - Preliminary Gram negative lea Beta hemolytic organism 10/29/24 20:15 Wound - Left Foot Gram Stain - Final Physical Exam Narrative Seen and examined. Patient moved his bowels yesterday. No acute issues. Cultures growing multiple organisms. Patient's . The bedside Bilateral lower leg/feet ulcer left worse than right. Right superficial ulcer over lateral toes/lateral margin of forefoot. History of diabetes mellitus for many years, complicated with diabetic neuropathy. Physical exam General: Alert, Oriented x3, Cooperative. Obesity grade 1, BMI 32.1 kg/m? HEENT: Atraumatic, PERRLA, EOMI, Normocephalic. Oral: No Gingival or Mucosal Lesions/ Ulcerations Neck: Supple, No JVD, Negative Carotid Bruits Chest wall/Lungs: Air entry diminished in bilateral lung bases. No crepitation/rhonchi Cardiovascular: Regular rate and rhythm, Normal S1,S2, No M/G/R Abdomen: Bowel Sounds Present, Soft, Non Tender, Non-Distended : No dysuria. No renal angle tenderness. No suprapubic tenderness. Extremities: No edema, Capillary Refill Less than 3 Seconds Skin: Ulcer over left and right feet covered with a dressing. Left foot with Arnol wrap bandage. Musculoskeletal: No Tenderness to Palpation of Joints or Extremities Neurological: Cranial nerves II-XII grossly intact, DTR 2+/4. Neuropathy. Psych/Mental Status: Flat affect. Assessment & Plan Assessment/Plan (1) Sepsis: QUALIFIERS: Sepsis acute organ dysfunction status: without acute organ dysfunction Sepsis type: sepsis due to unspecified organism Qualified Code(s): A41.9 - Sepsis, unspecified organism (2) Acute osteomyelitis of left foot: (3) Diabetic infection of left foot: PLAN: Plan 64-year-old gentleman was admitted with high fever 103.7 Fahrenheit, drainage from the little toe of left foot with no sensation. X-ray of the foot shows subcutaneous air and destruction of proximal phalanx of the little toe/probably head of the fifth metatarsal. 1. Left foot osteomyelitis and diabetic foot ulcer status postdebridement: Patient initially admitted in ICU and then transferred to [facility] floor. Patient has left fifth toe and fifth metatarsal osteomyelitis, gas gangrene as per operative note. Debridement of ulceration down including bone on 10/29/2024 Does not meet criteria for sepsis at the time of admission. Started on broad-spectrum antibiotic IV vancomycin and Zosyn. Prelim wound culture growing Staph aureus. ID consulted for tomorrow. Continue nonweightbearing on his left lower extremity and given the multiple ulcers he has on his right foot he is heel weightbearing on the right 11/01: Wound culture growing Proteus mirabilis and Staph aureus. 1+ GPC, GNR 1+ beta-hemolytic organism 3+. 11/02: Multiple organisms growing. Wound culture positive for GNR x 2, Proteus, strep and staph aureus so far. Wound culture on 10/06 shows a small NAD, GBS, corynebacterium and staph epi lactulose. Recommended to continue Vanco and Zosyn. 2. Complicated DM type II with diabetic polyneuropathy: Glucose 86. [place]uc[place] also between 70-99. Avoid hypoglycemia. On hypoglycemia protocol. Hold metformin 3. Essential hypertension and dyslipidemia ?Blood pressure 142/80. Controlled. Lisinopril and metoprolol resumed. ? Continue to monitor 4. Chronic DVT/PE Xarelto resumed 5. Gout ? Continue with allopurinol DVT: SCDs Charges/Coding Visit Charges Inpatient E&M: 99873 Subs Hosp L2
[2024-11-01] MEDS: Vancomycin HCl 1,750 MG in 0.9% Normal Saline (500mL Bag) 500 ML 250 MG IV ×2 (09:31→21:04)
[2024-11-01] MEDS: 0.9% Normal Saline (250mL Bag) 250 ML 15 ML IV (09:31)
--- NOTE | 2024-11-01 09:41 | CASEMGMT ---
Discharge Planning A list of HH providers including quality and resource use data and consistent with the patient's preferred geographic region, medical needs, and insurance network was created in [facility] Guide.? This list was provided to the RN MARIA EUGENIA. Laurel Ware, Discharge Planning Asst.
[2024-11-01 09:46] VITALS: PULSE 80
[2024-11-01] MEDS: Lactobacillis Acidophilus 1 CAP PO ×4 (09:46→21:04)
--- NOTE | 2024-11-01 11:42 | PCM.CONS.GEN ---
Assessment & Plan Assessment/Plan (1) Gangrene, not elsewhere classified: (2) Diabetes mellitus with diabetic polyneuropathy: QUALIFIERS: Diabetes mellitus type: type 2 Diabetes mellitus snf insulin use: without international first officer use Qualified Code(s): E11.42 - Type 2 diabetes mellitus with diabetic polyneuropathy (3) Acute osteomyelitis of left foot: PLAN: Taken to OR 10/29/[address] Lynch for L 5th toe and metatarsal I&D and partial resection. Also with I&D of R foot. Wound cxs with GNR x2, proteus, strep, and staph aureus so far. Wound cx in 09/2024 with S warneri , GBS, corynebacterium, staph epi, and anaerobes. Cont vanc/zosyn. Will follow, thank you HPI Consult Data Date of Consult: 11/01/24 HPI Narrative Reason for Consultation: osteo HPI Narrative: ROBERT KEARNS, is a 64 M with h/o DM neuropathy, htn, DVT/PE, has been dealing with bilat foot ulcers. On 10/29 presented to ED with 2-3 days progressive L foot redness, swelling, drainage and associated fever/chills. No known inciting event. Seen by podiatry, taken urgently to OR 10/29/[address] Lynch. Feeling better this Am, no fever, no pain in feet. Full ROS performed and neg except as noted above. [facility] Medical History Physical exam, pre-employment Home Medications ?Medication ?Instructions ?Recorded ?Last Taken ?Type allopurinol 200 mg tablet 300 mg PO QDAY 06/22/24 10/29/24 History atorvastatin 40 mg tablet 10 mg PO QDAY 06/22/24 10/28/24 History glimepiride 2 mg tablet 6 mg PO QAM 06/22/24 10/29/24 History lisinopril 10 mg tablet 5 mg PO QDAY 06/22/24 10/29/24 History metformin 500 mg tablet 500 mg PO QDAY 06/22/24 10/29/24 History metoprolol tartrate 50 mg tablet 25 mg PO QDAY 06/22/24 10/29/24 History rivaroxaban 10 mg tablet (Xarelto) 10 mg PO QDAY 06/22/24 10/28/24 History Allergy/AdvReac Type Severity Reaction Status Date / Time No Known Allergies Allergy Verified 10/29/24 16:39 Family History Mother Lung cancer Father Lung cancer Surgical History History of hip replacement, total Social History household members: spouse Smoking Status: Never smoker Physical Exam Const alert, oriented x3 and no apparent distress General Appearance: cooperative HEENT normocephalic and head/scalp atraumatic Eyes PERRL and EOMs intact bilaterally Neck supple and No nodes Resp normal air movement and clear to auscultation bilaterally Cardio regular rate and regular rhythm GI soft to palpation, non-tender and non-distended Extremity General Extremity: edema Skin Skin Narrative: bilat feet wrapped Neuro CN's II-XII intact bilaterally Lab / Micro Data Attestation: I reviewed the patient's lab results. 11/01/24 05:30 11/01/24 05:30 Labs: Laboratory Results - last 24 hr 10/31/24 16:31: POC Glucose 146 H 10/31/24 22:19: POC Glucose 134 H 11/01/24 05:30: WBC 8.4, RBC 3.44 L, Hgb 10.2 L, Hct 31.2 L, MCV 90.7, MCH 29.7, MCHC 32.7, RDW Std Deviation 41.1, RDW Coeff of Sujey 12.4, Plt Count 258, MPV 9.3, Immature Gran % (Auto) 0.400, Neut % (Auto) 66.3, Lymph % (Auto) 20.1, [place] % (Auto) 10.1 H, Eos % (Auto) 2.6, Baso % (Auto) 0.5, Absolute Neuts (auto) 5.6, Absolute Lymphs (auto) 1.69, Nucleated RBC % 0, Sodium 137, Potassium 3.7, Chloride 103, Carbon Dioxide 24.1, Anion Gap 9, BUN 16, Creatinine 0.97, Estim Creat Clear Calc 94.31, Est GFR (MDRD) Non-Af 88, BUN/Creatinine Ratio 16.9, Glucose 122 H, Calcium 8.7, Total Bilirubin 0.47, AST 45 H, ALT 60 H, Alkaline Phosphatase 141 H, Total Protein 5.9, Albumin 2.7 L, Globulin 3.2, Albumin/Globulin Ratio 0.8 L 11/01/24 05:50: POC Glucose 124 H Micro: Microbiology 10/29/24 20:15 Wound - Left Foot Gram Stain - Final 10/29/24 20:15 Wound - Left Foot Wound Culture - Preliminary Gram negative lea Gram negative lea#2 Beta hemolytic organism 10/29/24 20:15 Wound - Left Foot Gram Stain - Final 10/29/24 20:15 Wound - Left Foot Wound Culture - Preliminary Beta streptococcus 10/29/24 18:20 Urine, Clean Catch Urine Culture - Preliminary Mixed Gram Positive Organisms 10/29/24 17:45 Wound - Left Foot Gram Stain - Final 10/29/24 17:45 Wound - Left Foot Wound Culture - Preliminary Proteus mirabilis Gram positive organism 10/29/24 17:45 Wound - Toe Gram Stain - Final 10/29/24 17:45 Wound - Toe Wound Culture - Preliminary Proteus mirabilis Mixed Gram Positive Organisms 10/29/24 20:15 Wound - Right Foot Gram Stain - Final 10/29/24 20:15 Wound - Right Foot Wound Culture - Preliminary Staphylococcus aureus Gram positive organism 10/29/24 18:20 Blood Culture (Wb) - Anticubital Left Blood Culture - Preliminary No growth in 48 hours. 10/29/24 17:35 Blood Culture (Wb) - Anticubital Left Blood Culture - Preliminary No growth in 48 hours.
[2024-11-01 14:00] VITALS: BP 128/74; PULSE 75; RESP 18; TEMP 36.8; O2SAT 98
--- NOTE | 2024-11-01 14:09 | CASEMGMT ---
Spoke with PT this date regarding pt need for DME. YELENA SAUER into pt room to discuss dc planning. Pt is NWB on one extem and heel wt bearing on the other. Pt sig other present in room and pt agreeable to discussion with her present. Discussed options such as HHC vs SNF. Discussed needs for DME. Discussed options for it pt may need IVs at dc. Pt and sig other would like to discuss this and YELENA SAUER will check back. Provided pt with a HHC list created by dc nursing home assistant in case pt should need.
--- NOTE | 2024-11-01 15:33 | CHAPLAIN ---
Type of Pastoral Visit _x__ Initial Visit ___ Follow-up Visit ___ On-call Visit ___ General Patient Visit ___ Spiritual Assessment ___ Family Conference ___ Bereavement ___ Rapid Response ___ Code Blue ___ Other (describe below) Pastoral Care Referral From _x__ Patient ___ Family ___ Nurse ___ Physician ___ Ux Researcher ___ Telephonic Nurse ___ Other (describe below) Sacrament/Intervention _x__ Active listening ___ Anointing ___ Lutheran ___ Bereavement ___ Communion ___ Shanon exploration ___ ___ Life review _x__ Prayer ___ Reconciliation ___ Sacrament of Sick _x__ Supportive presence ___ Wedding ___ Other (describe below) Pastoral Comments patient and SO are in the room; patient says that other family members are here visiting too but have stepped out of the room for a short walk; pt says he has good family support from siblings; pt acknowledges that he has questions about his future and is concerned about how the next three months will go; pt has difficulty in putting those feelings into finite words but understands that are some real emotions involved in his physical limitations; pt is realizing that his life will have some new challenges but was given hope that he can manage better in the future; pt states that he was raised Judaism but does not practice the shanon now; pt says that his siblings are still Judaism and has had admitted that he wants their prayers for him; pt is offered prayer at this time too and he accepts; pt is given offer of future visits as he might desire; therapy team is ready to do some work with this pt now
--- NOTE | 2024-11-01 17:07 | PCM.PROGNOTE ---
Subjective Subjective Patient was seen today for follow up. He is sitting up in chair with feet elevated. He has no new complaints, no f/c/n/v. Objective Data Objective Data Vital Signs: Vital Signs Temp Pulse Resp BP Pulse Ox O2 Del Method 98.2 F 75 18 128/74 H 98 Room Air 11/01/24 14:00 11/01/24 14:00 11/01/24 14:00 11/01/24 14:00 11/01/24 14:00 11/01/24 14:00 Oxygen Delivery Method Room Air Weight: 100.244 kg Body Mass Index (BMI) 31.6 Intake & Output: Intake and Output for Last 24 Hours 10/30/24 10/31/24 11/01/24 23:59 23:59 23:59 Intake Total 4189.5 / 4189.5 1874.1 / 1874.1 2123.25 / 2123.25 Output Total 1025 / 1025 3300 / 3300 1550 / 1550 Balance 3164.5 / 3164.5 -1425.9 / -1425.9 573.25 / 573.25 Lab / Micro Data 11/01/24 05:30 11/01/24 05:30 Labs: Laboratory Results - last 24 hr 10/31/24 22:19: POC Glucose 134 H 11/01/24 05:30: WBC 8.4, RBC 3.44 L, Hgb 10.2 L, Hct 31.2 L, MCV 90.7, MCH 29.7, MCHC 32.7, RDW Std Deviation 41.1, RDW Coeff of Sujey 12.4, Plt Count 258, MPV 9.3, Immature Gran % (Auto) 0.400, Neut % (Auto) 66.3, Lymph % (Auto) 20.1, [place] % (Auto) 10.1 H, Eos % (Auto) 2.6, Baso % (Auto) 0.5, Absolute Neuts (auto) 5.6, Absolute Lymphs (auto) 1.69, Nucleated RBC % 0, Sodium 137, Potassium 3.7, Chloride 103, Carbon Dioxide 24.1, Anion Gap 9, BUN 16, Creatinine 0.97, Estim Creat Clear Calc 94.31, Est GFR (MDRD) Non-Af 88, BUN/Creatinine Ratio 16.9, Glucose 122 H, Calcium 8.7, Total Bilirubin 0.47, AST 45 H, ALT 60 H, Alkaline Phosphatase 141 H, Total Protein 5.9, Albumin 2.7 L, Globulin 3.2, Albumin/Globulin Ratio 0.8 L 11/01/24 05:50: POC Glucose 124 H 11/01/24 12:08: POC Glucose 178 H Micro: Microbiology 10/29/24 20:15 Wound - Left Foot Gram Stain - Final 10/29/24 20:15 Wound - Left Foot Wound Culture - Preliminary Gram negative lea Gram negative lea#2 Beta hemolytic organism 10/29/24 20:15 Wound - Left Foot Anaerobic Culture - Preliminary Checking for anaerobes, further studies to follow. 10/29/24 18:20 Urine, Clean Catch Urine Culture - Final Mixed Gram Positive Organisms 10/29/24 20:15 Wound - Left Foot Gram Stain - Final 10/29/24 20:15 Wound - Left Foot Wound Culture - Preliminary Beta streptococcus 10/29/24 20:15 Wound - Left Foot Anaerobic Culture - Preliminary Checking for anaerobes, further studies to follow. 10/29/24 20:15 Wound - Right Foot Gram Stain - Final 10/29/24 20:15 Wound - Right Foot Wound Culture - Preliminary Staphylococcus aureus Gram positive organism 10/29/24 20:15 Wound - Right Foot Anaerobic Culture - Preliminary Checking for anaerobes, further studies to follow. 10/29/24 17:45 Wound - Left Foot Gram Stain - Final 10/29/24 17:45 Wound - Left Foot Wound Culture - Preliminary Proteus mirabilis Gram positive organism 10/29/24 17:45 Wound - Toe Gram Stain - Final 10/29/24 17:45 Wound - Toe Wound Culture - Preliminary Proteus mirabilis Mixed Gram Positive Organisms 10/29/24 18:20 Blood Culture (Wb) - Anticubital Left Blood Culture - Preliminary No growth in 48 hours. 10/29/24 17:35 Blood Culture (Wb) - Anticubital Left Blood Culture - Preliminary No growth in 48 hours. Physical Exam Const alert, oriented x3 and no apparent distress Constitutional Narrative: Wound vac left foot intact and working well, no evidence of acute ischemia to left foot. General Appearance: comfortable Assessment & Plan Assessment/Plan (1) Gangrene, not elsewhere classified: (2) Acute osteomyelitis of left foot: (3) Cellulitis of left lower limb: (4) Diabetes mellitus with diabetic polyneuropathy: QUALIFIERS: Diabetes mellitus type: type 2 Diabetes mellitus alf insulin use: without magnetic resonance technologist use Qualified Code(s): E11.42 - Type 2 diabetes mellitus with diabetic polyneuropathy (5) Type 2 diabetes mellitus with foot ulcer: PLAN: Plan s/p left foot debridement on 10/29/2024 - continues to improve, right foot improved as well. Cultures left foot and ulcer right foot has been obtained, reviewed preliminary results - multi organisms, final results pending Wound care left foot: Wound vac dressing changes q 48-72 hours Wound care right foot: betadine solution, gauze, kerlix and rachel dressing changes daily No weightbearing left foot, heel weightbearing right foot Keep left foot elevated LEAS have been ordered and obtained - reviewed - formal read pending, TBI left foot noted to be moderately decreased - this was discussed with patient - will consult vascular surgery service Podiatry will continue to follow
[2024-11-01 20:27] VITALS: BP 131/55; PULSE 73; RESP 18; TEMP 36.7; O2SAT 100
[2024-11-01] MEDS: 0.9% Saline Lock 10 ML Syringe IV (23:44)
[2024-11-01 23:45] VITALS: BP 141/79; PULSE 73; RESP 16; TEMP 36.6; O2SAT 100
[2024-11-02] MEDS: Piperacil/Tazobactam 3.375 GM in 0.9% Normal Saline (50mL MB+) 50 ML IV ×3 (05:31→21:32)
[2024-11-02 05:35] VITALS: BP 141/79; PULSE 87; RESP 16; TEMP 36.8; O2SAT 99
[2024-11-02 05:46] VITALS: BMI 30.2
[2024-11-02] MEDS: Vancomycin Trough/Random Due 1 LAB MC (06:14)
--- NOTE | 2024-11-02 08:00 | NURSING ---
Charting from 11/01/24 1900-11/02/24 0700, including shift assessment, nursing notes, rounds, and vitals charted via paper charting on pt chart due to lack of [employer] access-IS aware.
[2024-11-02 08:08] LABS: Vancomycin, Trough Level 30.0 ug/mL (5.0-15.0)
--- NOTE | 2024-11-02 08:27 | WOUNDNOTE ---
wound photo: right 2nd toe
--- NOTE | 2024-11-02 08:28 | WOUNDNOTE ---
wound photo: right plantar foot
--- NOTE | 2024-11-02 08:40 | WOUNDNOTE ---
Home VAC form initiated. awaiting approval at this time.
[2024-11-02 09:00] VITALS: BP 138/77; PULSE 88; RESP 18; TEMP 36.7; O2SAT 98
[2024-11-02 09:09] VITALS: PULSE 97
[2024-11-02] MEDS: Lactobacillis Acidophilus 1 CAP PO ×4 (09:09→21:32)
--- NOTE | 2024-11-02 09:25 | PCM.RX.CS ---
Consult Antibiotic Management Pharmacy has been consulted to manage selected antibiotic: Vancomycin Type of Intervention Type of Consult: Follow-up Suspected Infection Suspected Infection: Osteomyelitis Prior Doses of Antibiotics Prior Doses of Antibiotics Received/Current Regimen: current dose is 1750mg IV q12h Labs Labs: Sodium 137 mmol/L (133-145) 11/01/24 05:30 Potassium 3.7 mmol/L (3.3-5.1) 11/01/24 05:30 Chloride 103 mmol/L (98-108) 11/01/24 05:30 Carbon Dioxide 24.1 mmol/L (21.0-32.0) 11/01/24 05:30 Anion Gap 9 (5-15) 11/01/24 05:30 BUN 16 mg/dL (4-19) 11/01/24 05:30 Creatinine 0.97 mg/dL (0.70-1.20) 11/01/24 05:30 Est GFR (MDRD) Non-Af 88 (>60) 11/01/24 05:30 BUN/Creatinine Ratio 16.9 RATIO (10-20) 11/01/24 05:30 Glucose 122 mg/dL (70-99) H 11/01/24 05:30 Vancomycin Trough 30.0 ug/mL (5.0-15.0) H 11/02/24 07:30 Microbiology Microbiology: Microbiology 10/29/24 20:15 Wound - Left Foot Gram Stain - Final 10/29/24 20:15 Wound - Left Foot Wound Culture - Preliminary Streptococcus group G 10/29/24 20:15 Wound - Left Foot Anaerobic Culture - Preliminary Checking for anaerobes, further studies to follow. 10/29/24 17:45 Wound - Toe Gram Stain - Final 10/29/24 17:45 Wound - Toe Wound Culture - Preliminary Proteus mirabilis Streptococcus group G Streptococcus agalactiae (B) 10/29/24 17:45 Wound - Left Foot Gram Stain - Final 10/29/24 17:45 Wound - Left Foot Wound Culture - Preliminary Proteus mirabilis Streptococcus group G 10/29/24 20:15 Wound - Left Foot Gram Stain - Final 10/29/24 20:15 Wound - Left Foot Wound Culture - Preliminary Streptococcus agalactiae (B) Gram negative lea Gram negative lea#2 10/29/24 20:15 Wound - Left Foot Anaerobic Culture - Preliminary Checking for anaerobes, further studies to follow. 10/30/24 17:05 Blood Culture (Wb) - Left Hand Blood Culture - Preliminary No growth in 48 hours. 10/30/24 19:00 Blood Culture (Wb) - Right Wrist Blood Culture - Preliminary No growth in 48 hours. 10/29/24 18:20 Urine, Clean Catch Urine Culture - Final Mixed Gram Positive Organisms 10/29/24 20:15 Wound - Right Foot Gram Stain - Final 10/29/24 20:15 Wound - Right Foot Wound Culture - Preliminary Staphylococcus aureus Gram positive organism 10/29/24 20:15 Wound - Right Foot Anaerobic Culture - Preliminary Checking for anaerobes, further studies to follow. 10/29/24 18:20 Blood Culture (Wb) - Anticubital Left Blood Culture - Preliminary No growth in 48 hours. 10/29/24 17:35 Blood Culture (Wb) - Anticubital Left Blood Culture - Preliminary No growth in 48 hours. Dosing Weight Weight used for dosin.8 kg Estimated Creatinine Clearance Estimated Creatinine Clearance: 94 ml/min Goal Trough Goal Trough: 15-20 mcg/mL Pharmacy Plan for Drug Dosing Pharmacy Plan for Drug Dosing: VANCOMYCIN LEVEL RECEIVED Current Vancomycin Dose: 1750MG Q12H Number of Doses Received: 2000MG X1, 1750MG X6 Vancomycin Level: 30.0 MCG/ML Hours Since Last Dose: 10.5 HRS Renal Function: SCr 0.97, CrCl 94 (11/01) Renal Function Trend: SCr WAS 0.99 ON 10/31 AND 1.07 ON 10/30 Vancomycin Plan/Comments: TROUGH WELL ABOVE GOAL, ALTHOUGH IT WOULD HAVE BEEN SLIGHTLY LOWER THAN 30 IF DRAWN CLOSER TO THE DESIRED 11.5 HOUR TRISHA. THE PREVIOUS DOSE WAS GIVEN AN HOUR LATE LAST NIGHT.. HOLD CURRENT DOSE. GET RANDOM LEVEL TOMORROW MORNING. Pending Level: 11/03 0600 (RANDOM LEVEL) Pharmacy Service will continue to monitor and adjust dosing as required. Follow-Up Labs Follow-Up Labs: Trough: Vancomycin (RANDOM) Date/Time Labs Ordered Labs to be done on [date and time ordered]: 11/03/24 06:00
--- NOTE | 2024-11-02 09:55 | CASEMGMT ---
Social Work- SW received a note from bedside nurse regarding pt inquiry into if pt can leave for [facility] appointment. Pt reports that pt has missed two [facility] appointments due to issues with legs and is concerned about missing another appointment. Pt reports that pt urinary frequency has become worse, with pt needing to urinate every 45 min. Pt reports that pt had a very high PSA at last check. SW provided education that pt cannot leave for appointment. Pt requesting consult to urology or for hospitalist to look into frequency/PSA. SW updated hospitalist who reports that he will consult. RNCM updated, as RNCM is following for medical needs. KATELYN Diaz
--- NOTE | 2024-11-02 10:10 | PN.ID_ITS ---
Physical Exam Narrative Feeling better, no fever, no n/v/d. Const alert and no apparent distress General Appearance: cooperative Resp normal air movement and clear to auscultation bilaterally Cardio regular rate and regular rhythm GI soft to palpation, non-tender and non-distended Skin no rashes or lesions noted Skin Narrative: feet wrapped, wound vac in place ID ID: Route of nutrition/ use of supplements: [] Nutritional Intake: [] IV Site: [] Shin Catheter: [] Assessment & Plan Assessment/Plan (1) Gangrene, not elsewhere classified: (2) Diabetes mellitus with diabetic polyneuropathy: QUALIFIERS: Diabetes mellitus type: type 2 Diabetes mellitus remote computer terminal operator insulin use: without remote computer terminal operator use Qualified Code(s): E11.42 - Type 2 diabetes mellitus with diabetic polyneuropathy (3) Acute osteomyelitis of left foot: PLAN: Taken to OR 10/29/[address] Lynch for L 5th toe and metatarsal I&D and partial resection. Also with I&D of R foot. Wound cxs with GNR x2, proteus, strep, and staph aureus so far. Wound cx in 09/2024 with S warneri , GBS, corynebacterium, staph epi, and anaerobes. Cont vanc/zosyn. Clearance cx now showing some strep. At this point, plan on 6 weeks po abx at discharge. Will follow
--- NOTE | 2024-11-02 11:37 | CASEMGMT ---
Addendum entered by Hetal Gregory 11/02/24 13:52: TC to 's office, last model maker states she was aware that pt was hospitalized and appt was cancelled. Addendum entered by Hetal Gregory 11/02/24 12:28: YELENA SAUER into pt room, pt provided with two lists as requested. Pt to review today and speak with his sister who plans to visit [place] this evening. Pt aware YELENA SAUER will check in with him in the morning on top 3 choices. Original Note: YELENA SAUER into pt room, pt sitting up in chair with sig other at bedside. Pt states he has been talking with his sister and she recommended a SNF called [facility] in [place]. He is interested in this facility and to see local options. Pt sig other states pt just moved to the area from [place] in July and has family in [facility]. Pt is aware that lists will be made. Pt does not feel that with his limited mobility he can return home. Pt is aware that hospitalist will consult . TC to Dr. Amos's office to cancel appt today, office is closed for lunch until 1:15pm. Requested dc electrician's assistant create lists. Pt states he may want these shared with his sister. He is aware this can be done electronically as well by text or email.
--- NOTE | 2024-11-02 12:16 | CASEMGMT ---
Discharge Planning A list of?SNF providers including quality and resource use data and consistent with the patient's preferred geographic region ([facility] and [facility] [address]), medical needs, and insurance network was created in [employer] Guide.? This list was provided to the Laurel Ware Discharge Planning Asst.
--- NOTE | 2024-11-02 13:10 | PCM.PN.HOSP ---
Reason for Visit Chief Complaint: Worsening Left Foot Wound with Fever. Objective Data Objective Data Vital Signs: Vital Signs Temp Pulse Resp BP Pulse Ox O2 Del Method 98.2 F 97 16 141/79 H 99 Room Air 11/02/24 05:35 11/02/24 09:09 11/02/24 05:35 11/02/24 05:35 11/02/24 05:35 11/02/24 05:35 Oxygen Delivery Method Room Air Weight: 211 lb 3.245 oz Body Mass Index (BMI) 30.2 Intake & Output: Intake and Output for Last 24 Hours 10/31/24 11/01/24 11/02/24 23:59 23:59 23:59 Intake Total 1874.1 / 1874.1 4308.25 / 4308.25 350 / 350 Output Total 3300 / 3300 3500 / 3500 1800 / 1800 Balance -1425.9 / -1425.9 808.25 / 808.25 -1450 / -1450 Lab / Micro Data 11/01/24 05:30 11/01/24 05:30 Labs: Laboratory Results - last 24 hr 11/01/24 18:19: POC Glucose 197 H 11/01/24 23:45: POC Glucose 137 H 11/02/24 05:33: POC Glucose 114 H 11/02/24 07:30: Vancomycin Trough 30.0 H 11/02/24 12:30: POC Glucose 173 H Micro: Microbiology 10/29/24 20:15 Wound - Right Foot Gram Stain - Final 10/29/24 20:15 Wound - Right Foot Wound Culture - Final Staphylococcus aureus Streptococcus group G 10/29/24 20:15 Wound - Right Foot Anaerobic Culture - Preliminary Checking for anaerobes, further studies to follow. 10/29/24 20:15 Wound - Left Foot Gram Stain - Final 10/29/24 20:15 Wound - Left Foot Wound Culture - Preliminary Streptococcus group G 10/29/24 20:15 Wound - Left Foot Anaerobic Culture - Preliminary Checking for anaerobes, further studies to follow. 10/29/24 17:45 Wound - Toe Gram Stain - Final 10/29/24 17:45 Wound - Toe Wound Culture - Preliminary Proteus mirabilis Streptococcus group G Streptococcus agalactiae (B) 10/29/24 17:45 Wound - Left Foot Gram Stain - Final 10/29/24 17:45 Wound - Left Foot Wound Culture - Preliminary Proteus mirabilis Streptococcus group G 10/29/24 20:15 Wound - Left Foot Gram Stain - Final 10/29/24 20:15 Wound - Left Foot Wound Culture - Preliminary Streptococcus agalactiae (B) Gram negative lea Gram negative lea#2 10/29/24 20:15 Wound - Left Foot Anaerobic Culture - Preliminary Checking for anaerobes, further studies to follow. 10/30/24 17:05 Blood Culture (Wb) - Left Hand Blood Culture - Preliminary No growth in 48 hours. 10/30/24 19:00 Blood Culture (Wb) - Right Wrist Blood Culture - Preliminary No growth in 48 hours. 10/29/24 18:20 Urine, Clean Catch Urine Culture - Final Mixed Gram Positive Organisms 10/29/24 18:20 Blood Culture (Wb) - Anticubital Left Blood Culture - Preliminary No growth in 48 hours. 10/29/24 17:35 Blood Culture (Wb) - Anticubital Left Blood Culture - Preliminary No growth in 48 hours. Radiography Diagnostic Testing: Radiology Impression Extremity Arterial Study 10/29/24 19:42 Interpretation Summary Triphasic Doppler waveforms are noted at ankle level bilaterally. Pulse-volume recordings appear satisfactory at all levels bilaterally. Resting ankle-brachial indices could not be determined on either side due to the non-compressibility of the vasculature at ankle level bilaterally. Digital-brachial indices are mildly diminished bilaterally. There is evidence of arterial calcification at ankle level bilaterally. There is evidence of mild arterial occlusive disease in the lower extremities bilaterally. Ordering Physician: Javy Lynch Referring Physician: Mayco Fenton Performed By: Ang Connor RVT Physical Exam Narrative Seen and examined. Patient is stated that he missed [address] Amos. Is supposed to following for increased frequency and elevated PSA. No burning micturition. He was supposed to see urologist Dr. Dandre today. Otherwise he is doing good. Cultures growing multiple organisms. Bilateral lower leg/feet ulcer left worse than right. Right superficial ulcer over lateral toes/lateral margin of forefoot. History of diabetes mellitus for many years, complicated with diabetic neuropathy. Physical exam General: Alert, Oriented x3, Cooperative. Obesity grade 1, BMI 32.1 kg/m? HEENT: Atraumatic, PERRLA, EOMI, Normocephalic. Oral: No Gingival or Mucosal Lesions/ Ulcerations Neck: Supple, No JVD, Negative Carotid Bruits Chest wall/Lungs: Air entry diminished in bilateral lung bases. No crepitation/rhonchi Cardiovascular: Regular rate and rhythm, Normal S1,S2, No M/G/R Abdomen: Bowel Sounds Present, Soft, Non Tender, Non-Distended : No dysuria. No renal angle tenderness. No suprapubic tenderness. Extremities: No edema, Capillary Refill Less than 3 Seconds Skin: Ulcer over left and right feet covered with a dressing. Left foot with Arnol wrap bandage. Dressing is dry Musculoskeletal: No Tenderness to Palpation of Joints or Extremities Neurological: Cranial nerves II-XII grossly intact, DTR 2+/4. Neuropathy. Psych/Mental Status: Flat affect. Assessment & Plan Assessment/Plan (1) Sepsis: QUALIFIERS: Sepsis type: sepsis due to unspecified organism Sepsis acute organ dysfunction status: without acute organ dysfunction Qualified Code(s): A41.9 - Sepsis, unspecified organism (2) Acute osteomyelitis of left foot: (3) Diabetic infection of left foot: PLAN: Plan 64-year-old gentleman was admitted with high fever 103.7 Fahrenheit, drainage from the little toe of left foot with no sensation. X-ray of the foot shows subcutaneous air and destruction of proximal phalanx of the little toe/probably head of the fifth metatarsal. 1. Left foot osteomyelitis and diabetic foot ulcer status postdebridement: Patient initially admitted in ICU and then transferred to [facility] floor. Patient has left fifth toe and fifth metatarsal osteomyelitis, gas gangrene as per operative note. Debridement of ulceration down including bone on 10/29/2024 Does not meet criteria for sepsis at the time of admission. Started on broad-spectrum antibiotic IV vancomycin and Zosyn. Prelim wound culture growing Staph aureus. ID consulted for tomorrow. Continue nonweightbearing on his left lower extremity and given the multiple ulcers he has on his right foot he is heel weightbearing on the right 11/01: Wound culture growing Proteus mirabilis and Staph aureus. 1+ GPC, GNR 1+ beta-hemolytic organism 3+. 11/02: Multiple organisms growing. Wound culture positive for GNR x 2, Proteus, strep and staph aureus so far. Wound culture on 10/06 shows a small NAD, GBS, corynebacterium and staph epi lactulose. Recommended to continue Vanco and Zosyn. ID planning for p.o. antibiotics at discharge for possible 6 weeks 2. Complicated DM type II with diabetic polyneuropathy: Glucose 86. [place]uc[place] also between 70-99. Avoid hypoglycemia. On hypoglycemia protocol. Hold metformin 3. Essential hypertension and dyslipidemia ?Blood pressure 142/80. Controlled. Lisinopril and metoprolol resumed. ? Continue to monitor 4. Chronic DVT/PE Xarelto resumed 5. Gout ? Continue with allopurinol 6. Chronic increased urinary frequency and elevated PSA: Was supposed to follow-up with urologist Dr. Amos today. At the request of his , urologist consulted. DVT: SCDs Charges/Coding Visit Charges Inpatient E&M: 71752 Subs Hosp L2
[2024-11-02 15:00] VITALS: BP 142/75; PULSE 73; RESP 18; TEMP 36.2; O2SAT 98
[2024-11-02] MEDS: 0.9% Normal Saline (250mL Bag) 250 ML 15 ML IV (15:35)
--- NOTE | 2024-11-02 17:29 | PN_ITS ---
Subjective Subjective Patient was seen today for follow up on feet. He is sitting up in change with feet elevated. He is considering going to a nursing facility. He has no new complaints. No complaints of f/c/n/v. Objective Data Objective Data Vital Signs: Vital Signs Temp Pulse Resp BP Pulse Ox O2 Del Method 98.1 F 97 18 138/77 H 98 Room Air 11/02/24 09:00 11/02/24 09:09 11/02/24 09:00 11/02/24 09:00 11/02/24 09:00 11/02/24 09:00 Oxygen Delivery Method Room Air Weight: 95.8 kg Body Mass Index (BMI) 30.2 Intake & Output: Intake and Output for Last 24 Hours 10/31/24 11/01/24 11/02/24 23:59 23:59 23:59 Intake Total 1874.1 / 1874.1 4308.25 / 4308.25 1150 / 1150 Output Total 3300 / 3300 3500 / 3500 2450 / 2450 Balance -1425.9 / -1425.9 808.25 / 808.25 -1300 / -1300 Lab / Micro Data 11/01/24 05:30 11/01/24 05:30 Labs: Laboratory Results - last 24 hr 11/01/24 18:19: POC Glucose 197 H 11/01/24 23:45: POC Glucose 137 H 11/02/24 05:33: POC Glucose 114 H 11/02/24 07:30: Vancomycin Trough 30.0 H 11/02/24 12:30: POC Glucose 173 H Micro: Microbiology 10/29/24 17:45 Wound - Left Foot Gram Stain - Final 10/29/24 17:45 Wound - Left Foot Wound Culture - Final Proteus mirabilis Streptococcus group G Gram positive lea 10/29/24 20:15 Wound - Left Foot Gram Stain - Final 10/29/24 20:15 Wound - Left Foot Wound Culture - Preliminary Streptococcus group G Gram Positive Cocci 10/29/24 20:15 Wound - Left Foot Anaerobic Culture - Preliminary Checking for anaerobes, further studies to follow. 10/29/24 20:15 Wound - Right Foot Gram Stain - Final 10/29/24 20:15 Wound - Right Foot Wound Culture - Final Staphylococcus aureus Streptococcus group G 10/29/24 20:15 Wound - Right Foot Anaerobic Culture - Preliminary Checking for anaerobes, further studies to follow. 10/29/24 17:45 Wound - Toe Gram Stain - Final 10/29/24 17:45 Wound - Toe Wound Culture - Preliminary Proteus mirabilis Streptococcus group G Streptococcus agalactiae (B) 10/29/24 20:15 Wound - Left Foot Gram Stain - Final 10/29/24 20:15 Wound - Left Foot Wound Culture - Preliminary Streptococcus agalactiae (B) Gram negative lea Gram negative lea#2 10/29/24 20:15 Wound - Left Foot Anaerobic Culture - Preliminary Checking for anaerobes, further studies to follow. 10/30/24 17:05 Blood Culture (Wb) - Left Hand Blood Culture - Preliminary No growth in 48 hours. 10/30/24 19:00 Blood Culture (Wb) - Right Wrist Blood Culture - Preliminary No growth in 48 hours. 10/29/24 18:20 Urine, Clean Catch Urine Culture - Final Mixed Gram Positive Organisms 10/29/24 18:20 Blood Culture (Wb) - Anticubital Left Blood Culture - Preliminary No growth in 48 hours. 10/29/24 17:35 Blood Culture (Wb) - Anticubital Left Blood Culture - Preliminary No growth in 48 hours. Radiography Diagnostic Testing: Radiology Impression Extremity Arterial Study 10/29/24 19:42 Interpretation Summary Triphasic Doppler waveforms are noted at ankle level bilaterally. Pulse-volume recordings appear satisfactory at all levels bilaterally. Resting ankle-brachial indices could not be determined on either side due to the non-compressibility of the vasculature at ankle level bilaterally. Digital-brachial indices are mildly diminished bilaterally. There is evidence of arterial calcification at ankle level bilaterally. There is evidence of mild arterial occlusive disease in the lower extremities bilaterally. Ordering Physician: Javy Lynch Referring Physician: Mayco Fenton Performed By: Ang Connor, RVT Physical Exam Const alert, oriented x3 and no apparent distress Constitutional Narrative: Wound vac left foot intact and working well, no evidence of acute ischemia to left foot. Right foot with dressing clean, dry and intact. Reviewed wound photos right foot from today - stable findings. General Appearance: comfortable Assessment & Plan Assessment/Plan (1) Gangrene, not elsewhere classified: (2) Acute osteomyelitis of left foot: (3) Cellulitis of left lower limb: (4) Diabetes mellitus with diabetic polyneuropathy: QUALIFIERS: Diabetes mellitus type: type 2 Diabetes mellitus long-term insulin use: without long-term use Qualified Code(s): E11.42 - Type 2 diabetes mellitus with diabetic polyneuropathy (5) Type 2 diabetes mellitus with foot ulcer: PLAN: Plan s/p left foot debridement on 10/29/2024 - continues to improve, right foot improved as well. Cultures left foot and ulcer right foot has been obtained, reviewed available results - multi organisms, final results pending Wound care left foot: Wound vac dressing changes q 48-72 hours Wound care right foot: betadine solution, gauze, kerlix and rachel dressing changes daily No weightbearing left foot, heel weightbearing right foot Keep left foot elevated LEAS have been ordered and obtained - reviewed, TBI left foot noted to be moderately decreased - this was discussed with patient - will consult placed to vascular surgery service Podiatry will continue to follow
[2024-11-02 21:24] VITALS: BP 146/83; PULSE 72; RESP 16; TEMP 36.8; O2SAT 99
[2024-11-03] VITALS (7 sets, daily range): BP systolic 93–153; BP diastolic 54–77; PULSE 65–86; RESP 16–18; TEMP 36.5–37; O2SAT 97–100; BMI 31.3
[2024-11-03] MEDS: Piperacil/Tazobactam 3.375 GM in 0.9% Normal Saline (50mL MB+) 50 ML IV ×3 (05:38→21:33)
[2024-11-03] MEDS: Vancomycin Trough/Random Due 1 LAB MC (06:21)
--- NOTE | 2024-11-03 07:08 | EX.PCM.CON.S ---
Assessment & Plan Assessment/Plan (1) PAD (peripheral artery disease): PLAN: Plan LEAS revealed noncompressible vessels with unobtainable ABIs but triphasic waveforms throughout consistent with mild PAD; noncompressible vessels not uncommon in older diabetic patients, triphasic waveforms are reassuring and suggest against any significant large vessel disease and would anticipate sufficient flow to heal. Per discussion with wound care nurse, wounds are looking much improved with good bleeding and granulation tissue to this point. Do not feel any further imaging or intervention is indicated at present. Plan for follow-up in the office in 2-4 weeks after discharge to reassess. HPI Consult Data Date of Consult: 11/03/24 HPI Narrative HPI Narrative: ROBERT KEARNS, is a 64 M who presented to the [facility] ER on 10/29/24 with complaint of L toe wound with drainage. He was found to have a necrotic appearing L 5th toe and a L 5th MT plantar foot wound; purulent drainage was noted. L foot XR suggested osteomyelitis to the 5th toe. Patient was admitted for IV antibiotics and podiatry consult. Dr. Lynch performed operative debridement/amputation of the L 5th toe on 10/30/24; the site was left open and plan is for wound vac. Site is noted to be improving following these interventions; he also has a chronic ulcer to the R 5th toe which is noted to be improving. In workup, he had a LEAS in which ABIs were unobtainable due to noncompressible vessels, R TBI 0.64, L TBI 0.55, and triphasic waveforms bilaterally. He reports that he'd had the L toe/foot wounds for just a few weeks before they acutely worsened leading to his ER presentation. He reports he has never had wounds like this before. He endorses bilateral foot/lower leg neuropathy but otherwise denies any claudication or rest/nocturnal pain. He denies any prior vascular surgical procedures. 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 [facility] Medical History Physical exam, pre-employment Home Medications ?Medication ?Instructions ?Recorded ?Last Taken ?Type allopurinol 200 mg tablet 300 mg PO QDAY 06/22/24 10/29/24 History atorvastatin 40 mg tablet 10 mg PO QDAY 06/22/24 10/28/24 History glimepiride 2 mg tablet 6 mg PO QAM 06/22/24 10/29/24 History lisinopril 10 mg tablet 5 mg PO QDAY 06/22/24 10/29/24 History metformin 500 mg tablet 500 mg PO QDAY 06/22/24 10/29/24 History metoprolol tartrate 50 mg tablet 25 mg PO QDAY 06/22/24 10/29/24 History rivaroxaban 10 mg tablet (Xarelto) 10 mg PO QDAY 06/22/24 10/28/24 History Allergy/AdvReac Type Severity Reaction Status Date / Time No Known Allergies Allergy Verified 10/29/24 16:39 Family History Mother Lung cancer Father Lung cancer Surgical History History of hip replacement, total Social History household members: spouse Smoking Status: Never smoker Physical Exam Const alert, oriented x3 and no apparent distress General Appearance: cooperative and comfortable HEENT normocephalic, head/scalp atraumatic, hearing grossly normal bilaterally, external ears normal and external nose normal Resp normal respiratory effort, normal air movement, no retractions and no use of accessory muscles Effort and Inspection: able to speak in complete sentences; Negative for labored, grunting or stridor Cardio regular rate and regular rhythm Extremity Extremity Narrative: Bilateral feet with wound dressings/AFSHAN wraps in place. Wound vac in place to the L foot. Not removed for exam. Visible toes pink and appropriately warm. Skin Wound Narrative: Wound vac in place to the L foot, dry dressings in place to the R foot. Neuro oriented x3, moves all extremities and no focal motor deficits Speech: speech normal Psych mental status grossly normal Appearance: grossly normal Attitude: calm and engaged Activity / Motor Behavior: appropriate eye contact Speech: normal speech Lab / Micro Data 11/01/24 05:30 11/03/24 06:15 Labs: Laboratory Results - last 24 hr 11/02/24 07:30: Vancomycin Trough 30.0 H 11/02/24 12:30: POC Glucose 173 H 11/02/24 18:34: POC Glucose 212 H 11/02/24 21:38: POC Glucose 170 H 11/03/24 06:19: POC Glucose 158 H Micro: Microbiology 10/29/24 17:45 Wound - Left Foot Gram Stain - Final 10/29/24 17:45 Wound - Left Foot Wound Culture - Final Proteus mirabilis Streptococcus group G Gram positive lea 10/29/24 20:15 Wound - Left Foot Gram Stain - Final 10/29/24 20:15 Wound - Left Foot Wound Culture - Preliminary Streptococcus group G Gram Positive Cocci 10/29/24 20:15 Wound - Left Foot Anaerobic Culture - Preliminary Checking for anaerobes, further studies to follow. 10/29/24 20:15 Wound - Right Foot Gram Stain - Final 10/29/24 20:15 Wound - Right Foot Wound Culture - Final Staphylococcus aureus Streptococcus group G 10/29/24 20:15 Wound - Right Foot Anaerobic Culture - Preliminary Checking for anaerobes, further studies to follow. 10/29/24 17:45 Wound - Toe Gram Stain - Final 10/29/24 17:45 Wound - Toe Wound Culture - Preliminary Proteus mirabilis Streptococcus group G Streptococcus agalactiae (B) 10/29/24 20:15 Wound - Left Foot Gram Stain - Final 10/29/24 20:15 Wound - Left Foot Wound Culture - Preliminary Streptococcus agalactiae (B) Gram negative lea Gram negative lea#2 10/29/24 20:15 Wound - Left Foot Anaerobic Culture - Preliminary Checking for anaerobes, further studies to follow. 10/30/24 17:05 Blood Culture (Wb) - Left Hand Blood Culture - Preliminary No growth in 48 hours. 10/30/24 19:00 Blood Culture (Wb) - Right Wrist Blood Culture - Preliminary No growth in 48 hours. Charges/Coding Visit Charges Inpatient E&M: 24894 Init Hosp L1
[2024-11-03 07:15] LABS: Estimated Creatinine Clearance 87.84 ml/min (50-250)
[2024-11-03 07:17] LABS: Vancomycin, Random Level 13.7 ug/mL (0.0-15.0)
--- NOTE | 2024-11-03 07:45 | PN_ITS ---
Subjective Subjective Patient was seen this morning for follow up on bilateral feet. He relates he is doing well this morning, no new complaints. No f/c/n/v. Objective Data Objective Data Vital Signs: Vital Signs Temp Pulse Resp BP Pulse Ox O2 Del Method 98 F 72 18 134/62 H 97 Room Air 11/03/24 07:35 11/03/24 07:35 11/03/24 07:35 11/03/24 07:35 11/03/24 07:35 11/03/24 07:35 Oxygen Delivery Method Room Air Weight: 99.3 kg Body Mass Index (BMI) 31.3 Intake & Output: Intake and Output for Last 24 Hours 11/01/24 11/02/24 11/03/24 23:59 23:59 23:59 Intake Total 4308.25 / 4308.25 2400 / 2650 450 / 450 Output Total 3500 / 3500 2450 / 2450 400 / 400 Balance 808.25 / 808.25 -50 / 200 50 / 50 Lab / Micro Data 11/01/24 05:30 11/03/24 06:15 Labs: Laboratory Results - last 24 hr 11/02/24 07:30: Vancomycin Trough 30.0 H 11/02/24 12:30: POC Glucose 173 H 11/02/24 18:34: POC Glucose 212 H 11/02/24 21:38: POC Glucose 170 H 11/03/24 06:15: Creatinine 1.03, Estim Creat Clear Calc 87.84, Est GFR (MDRD) Non-Af 82, Random Vancomycin 13.7 11/03/24 06:19: POC Glucose 158 H Micro: Microbiology 10/29/24 17:45 Wound - Left Foot Gram Stain - Final 10/29/24 17:45 Wound - Left Foot Wound Culture - Final Proteus mirabilis Streptococcus group G Gram positive lea 10/29/24 20:15 Wound - Left Foot Gram Stain - Final 10/29/24 20:15 Wound - Left Foot Wound Culture - Preliminary Streptococcus group G Gram Positive Cocci 10/29/24 20:15 Wound - Left Foot Anaerobic Culture - Preliminary Checking for anaerobes, further studies to follow. 10/29/24 20:15 Wound - Right Foot Gram Stain - Final 10/29/24 20:15 Wound - Right Foot Wound Culture - Final Staphylococcus aureus Streptococcus group G 10/29/24 20:15 Wound - Right Foot Anaerobic Culture - Preliminary Checking for anaerobes, further studies to follow. 10/29/24 17:45 Wound - Toe Gram Stain - Final 10/29/24 17:45 Wound - Toe Wound Culture - Preliminary Proteus mirabilis Streptococcus group G Streptococcus agalactiae (B) 10/29/24 20:15 Wound - Left Foot Gram Stain - Final 10/29/24 20:15 Wound - Left Foot Wound Culture - Preliminary Streptococcus agalactiae (B) Gram negative lea Gram negative lea#2 10/29/24 20:15 Wound - Left Foot Anaerobic Culture - Preliminary Checking for anaerobes, further studies to follow. 10/30/24 17:05 Blood Culture (Wb) - Left Hand Blood Culture - Preliminary No growth in 48 hours. 10/30/24 19:00 Blood Culture (Wb) - Right Wrist Blood Culture - Preliminary No growth in 48 hours. 10/29/24 18:20 Urine, Clean Catch Urine Culture - Final Mixed Gram Positive Organisms 10/29/24 18:20 Blood Culture (Wb) - Anticubital Left Blood Culture - Preliminary No growth in 48 hours. 10/29/24 17:35 Blood Culture (Wb) - Anticubital Left Blood Culture - Preliminary No growth in 48 hours. Physical Exam Const alert, oriented x3 and no apparent distress Constitutional Narrative: Left foot - s/p debridement with residual wound that is noted to be healthy and viable down to bone, there is no maloder, no necrosis, no fluctuance, no visible abscess, no crepitus, cellulitis much improved, edema less as well, no evidence of acute ischemia, DP pulse is palpable. There is no pain. Right foot - ulceration sub 5th met head and distal 2nd toe down to subcutaneous tissue, ulcers are healing well with no erythema, no necrosis, no fluctuance, no visible abscess, no crepitus, no evidence of acute ischemia, no pain. General Appearance: comfortable Assessment & Plan Assessment/Plan (1) Gangrene, not elsewhere classified: (2) Acute osteomyelitis of left foot: (3) Cellulitis of left lower limb: (4) Diabetes mellitus with diabetic polyneuropathy: QUALIFIERS: Diabetes mellitus type: type 2 Diabetes mellitus prison insulin use: without intermission coordinator use Qualified Code(s): E11.42 - Type 2 diabetes mellitus with diabetic polyneuropathy (5) Type 2 diabetes mellitus with foot ulcer: PLAN: Plan s/p left foot debridement on 10/29/2024 - continues to improve, right foot continues to improve as well. Cultures left foot and ulcer right foot has been obtained, reviewed available results - multi organisms - patient on IV antibiotic therapy with Infectious Disease on consult. Wound care left foot: Wound vac dressing changes q 48-72 hours Wound care right foot: betadine solution, gauze, kerlix and rachel dressing changes daily No weightbearing left foot, heel weightbearing right foot Keep left foot elevated LEAS have been ordered and obtained - reviewed, TBI left foot noted to be moderately decreased - this was discussed with patient - consult was placed to vascular surgery service Podiatry will continue to follow
--- NOTE | 2024-11-03 07:49 | PCM.RX.CS ---
Consult Antibiotic Management Pharmacy has been consulted to manage selected antibiotic: Vancomycin Type of Intervention Type of Consult: Follow-up Suspected Infection Suspected Infection: Osteomyelitis Prior Doses of Antibiotics Prior Doses of Antibiotics Received/Current Regimen: the most recent dose was 1750mg IV q12h before it was held due to a high trough Labs Labs: Sodium 137 mmol/L (133-145) 11/01/24 05:30 Potassium 3.7 mmol/L (3.3-5.1) 11/01/24 05:30 Chloride 103 mmol/L (98-108) 11/01/24 05:30 Carbon Dioxide 24.1 mmol/L (21.0-32.0) 11/01/24 05:30 Anion Gap 9 (5-15) 11/01/24 05:30 BUN 16 mg/dL (4-19) 11/01/24 05:30 Creatinine 1.03 mg/dL (0.70-1.20) 11/03/24 06:15 Est GFR (MDRD) Non-Af 82 (>60) 11/03/24 06:15 BUN/Creatinine Ratio 16.9 RATIO (10-20) 11/01/24 05:30 Glucose 122 mg/dL (70-99) H 11/01/24 05:30 Vancomycin Trough 30.0 ug/mL (5.0-15.0) H 11/02/24 07:30 Random Vancomycin 13.7 ug/mL (0.0-15.0) 11/03/24 06:15 Microbiology Microbiology: Microbiology 10/29/24 17:45 Wound - Left Foot Gram Stain - Final 10/29/24 17:45 Wound - Left Foot Wound Culture - Final Proteus mirabilis Streptococcus group G Gram positive lea 10/29/24 20:15 Wound - Left Foot Gram Stain - Final 10/29/24 20:15 Wound - Left Foot Wound Culture - Preliminary Streptococcus group G Gram Positive Cocci 10/29/24 20:15 Wound - Left Foot Anaerobic Culture - Preliminary Checking for anaerobes, further studies to follow. 10/29/24 20:15 Wound - Right Foot Gram Stain - Final 10/29/24 20:15 Wound - Right Foot Wound Culture - Final Staphylococcus aureus Streptococcus group G 10/29/24 20:15 Wound - Right Foot Anaerobic Culture - Preliminary Checking for anaerobes, further studies to follow. 10/29/24 17:45 Wound - Toe Gram Stain - Final 10/29/24 17:45 Wound - Toe Wound Culture - Preliminary Proteus mirabilis Streptococcus group G Streptococcus agalactiae (B) 10/29/24 20:15 Wound - Left Foot Gram Stain - Final 10/29/24 20:15 Wound - Left Foot Wound Culture - Preliminary Streptococcus agalactiae (B) Gram negative lea Gram negative lea#2 10/29/24 20:15 Wound - Left Foot Anaerobic Culture - Preliminary Checking for anaerobes, further studies to follow. 10/30/24 17:05 Blood Culture (Wb) - Left Hand Blood Culture - Preliminary No growth in 48 hours. 10/30/24 19:00 Blood Culture (Wb) - Right Wrist Blood Culture - Preliminary No growth in 48 hours. 10/29/24 18:20 Urine, Clean Catch Urine Culture - Final Mixed Gram Positive Organisms 10/29/24 18:20 Blood Culture (Wb) - Anticubital Left Blood Culture - Preliminary No growth in 48 hours. 10/29/24 17:35 Blood Culture (Wb) - Anticubital Left Blood Culture - Preliminary No growth in 48 hours. Dosing Weight Weight used for dosin.3 kg Estimated Creatinine Clearance Estimated Creatinine Clearance: 88 ml/min Goal Trough Goal Trough: 15-20 mcg/mL Pharmacy Plan for Drug Dosing Pharmacy Plan for Drug Dosing: VANCOMYCIN LEVEL RECEIVED Current Vancomycin Dose: CURRENTLY BEING HELD Number of Doses Received: Vancomycin Level: 13.7 MCG/ML Hours Since Last Dose: 33 HRS SINCE THE LAST 1750MG DOSE Renal Function: SCR 1.03, CRCL 88 Renal Function Trend: SCR WAS 0.97 ON 11/01 AND 0.99 ON 10/31 Vancomycin Plan/Comments: RANDOM LEVEL IS BACK BELOW 20 SO CAN RESTART DOSING AT A NEWLY CALCULATED DOSE (PER CLINCALC) OF 1000MG IV Q12H WHICH HAS A PREDICTED TROUGH OF 16 MCG/ML. WILL CHECK THAT TROUGH BEFORE THE 4TH DOSE. Pending Level: 11/04/24 19:30 Pharmacy Service will continue to monitor and adjust dosing as required. Follow-Up Labs Follow-Up Labs: Trough: Vancomycin Date/Time Labs Ordered Labs to be done on [date and time ordered]: 11/04/24 19:30
[2024-11-03] MEDS: Vancomycin HCl 1,000 MG in 0.9% Normal Saline (250mL Bag) 250 ML 250 MG IV (08:03)
[2024-11-03] MEDS: 0.9% Saline Lock 10 ML Syringe IV ×2 (08:04→13:07)
[2024-11-03] MEDS: Lactobacillis Acidophilus 1 CAP PO ×4 (08:07→21:33)
--- NOTE | 2024-11-03 08:08 | WOUNDNOTE ---
wound photo: right plantar foot
--- NOTE | 2024-11-03 08:09 | WOUNDNOTE ---
wound photo: right 2nd toe
--- NOTE | 2024-11-03 08:10 | WOUNDNOTE ---
wound photo: left foot
--- NOTE | 2024-11-03 08:10 | WOUNDNOTE ---
wound photo: left foot
--- NOTE | 2024-11-03 11:20 | CASEMGMT ---
Addendum entered by Lucinda Hugo 11/03/24 17:40: Message received from [facility] via [employer] stating they are able to accept pt. YELENA SAUER requested for pre-cert to be started. Pt made aware [facility] accepted. Addendum entered by Lucidna Hugo 11/03/24 16:26: Pt and family made aware [facility] unable to accept him and referral has been sent to [facility]. They informed this RN CRISTIANE that [employer] insurance listed as pt's current primary insurance will be ending 11/16/24 and then the [employer] insurance that is listed as his secondary insurance will become his primary insurance at that time. Call placed to Flakita @ [facility] to notify her of the above, as [facility] currently not working and unable to send this information to her via [employer]. She states the referral was still up for review and requests the referral be e-mailed to her @ [email or web address]. kayla Barragan mortgage loan assistant, made aware and will email referral. Original Note: YELENA SAUER note: RN CM to room. Pt sitting up in chair, visitor @ bedside. They state they have reviewed the SNF lists. 1st preference is [facility], 2nd is [facility], 3rd is [facility], [address]th is [facility]. Referral sent to [facility]. They are unable to accept pt. Referral sent to [facility] via [facility]. Susi BYRD RN, CM
--- NOTE | 2024-11-03 13:33 | PN.ID_ITS ---
Physical Exam Narrative Feeling better, discharge to rehab planned, no fever, no n/v/d. Const alert and no apparent distress General Appearance: cooperative Resp normal air movement and clear to auscultation bilaterally Cardio regular rate and regular rhythm GI soft to palpation, non-tender and non-distended Skin no rashes or lesions noted Skin Narrative: wound vac in place ID ID: Route of nutrition/ use of supplements: [] Nutritional Intake: [] IV Site: [] Shin Catheter: [] Assessment & Plan Assessment/Plan (1) Gangrene, not elsewhere classified: (2) Diabetes mellitus with diabetic polyneuropathy: QUALIFIERS: Diabetes mellitus type: type 2 Diabetes mellitus residential insulin use: without residential use Qualified Code(s): E11.42 - Type 2 diabetes mellitus with diabetic polyneuropathy (3) Acute osteomyelitis of left foot: PLAN: Taken to OR 10/29/[address] Lynch for L 5th toe and metatarsal I&D and partial resection. Also with I&D of R foot. Wound cxs with morganella, proteus, GB, MSSA, and anaerobes. Wound cx in 09/2024 with S warneri , GBS, corynebacterium, staph epi, and anaerobes. On vanc/zosyn. Clearance cx now showing some strep. At this point, plan on 6 weeks po cipro and augmentin at discharge, stop date 12/10/24. Recommend lab next week. Counseled re: potential side effects. QTC less than 450 here. ID followup in 2 weeks. D/w Dr. Arellano. Will follow
--- NOTE | 2024-11-03 14:23 | PCM.PN.HOSP ---
Reason for Visit Chief Complaint: Worsening Left Foot Wound with Fever. Objective Data Objective Data Vital Signs: Vital Signs Temp Pulse Resp BP Pulse Ox O2 Del Method 98.6 F 65 16 93/54 L 98 Room Air 11/03/24 12:48 11/03/24 12:48 11/03/24 12:48 11/03/24 12:48 11/03/24 12:48 11/03/24 12:48 Oxygen Delivery Method Room Air Weight: 218 lb 14.704 oz Body Mass Index (BMI) 31.3 Intake & Output: Intake and Output for Last 24 Hours 11/01/24 11/02/24 11/03/24 23:59 23:59 23:59 Intake Total 4308.25 / 4308.25 2400 / 2650 1020 / 1020 Output Total 3500 / 3500 2450 / 2450 750 / 750 Balance 808.25 / 808.25 -50 / 200 270 / 270 Lab / Micro Data 11/01/24 05:30 11/03/24 06:15 Labs: Laboratory Results - last 24 hr 11/02/24 18:34: POC Glucose 212 H 11/02/24 21:38: POC Glucose 170 H 11/03/24 06:15: Creatinine 1.03, Estim Creat Clear Calc 87.84, Est GFR (MDRD) Non-Af 82, Random Vancomycin 13.7 11/03/24 06:19: POC Glucose 158 H 11/03/24 10:54: POC Glucose 215 H Micro: Microbiology 10/29/24 20:15 Wound - Left Foot Gram Stain - Final 10/29/24 20:15 Wound - Left Foot Wound Culture - Final Streptococcus group G Strep anginosus 10/29/24 20:15 Wound - Left Foot Anaerobic Culture - Preliminary Gram negative lea 10/29/24 20:15 Wound - Left Foot Gram Stain - Final 10/29/24 20:15 Wound - Left Foot Wound Culture - Final Streptococcus agalactiae (B) Proteus mirabilis Morganella morganii sp morgani 10/29/24 20:15 Wound - Left Foot Anaerobic Culture - Preliminary Anaerobic cocci Gram negative lea 10/29/24 20:15 Wound - Right Foot Gram Stain - Final 10/29/24 20:15 Wound - Right Foot Wound Culture - Final Staphylococcus aureus Streptococcus group G 10/29/24 20:15 Wound - Right Foot Anaerobic Culture - Final No anaerobic bacteria isolated. 10/29/24 17:45 Wound - Toe Gram Stain - Final 10/29/24 17:45 Wound - Toe Wound Culture - Final Proteus mirabilis Streptococcus group G Streptococcus group B 10/29/24 17:45 Wound - Left Foot Gram Stain - Final 10/29/24 17:45 Wound - Left Foot Wound Culture - Final Proteus mirabilis Streptococcus group G Gram positive lea 10/30/24 17:05 Blood Culture (Wb) - Left Hand Blood Culture - Preliminary No growth in 48 hours. 10/30/24 19:00 Blood Culture (Wb) - Right Wrist Blood Culture - Preliminary No growth in 48 hours. 10/29/24 18:20 Urine, Clean Catch Urine Culture - Final Mixed Gram Positive Organisms 10/29/24 18:20 Blood Culture (Wb) - Anticubital Left Blood Culture - Preliminary No growth in 48 hours. 10/29/24 17:35 Blood Culture (Wb) - Anticubital Left Blood Culture - Preliminary No growth in 48 hours. Physical Exam Narrative Seen and examined. Dr. Amos left the town yesterday. I tried to contact and call him but no answer. The patient's was notified. Advised to follow-up with me as an outpatient. Patient also complained of left hand numbness and brought the questionable diagnosis of MS/multiple sclerosis. I advised to follow-up with a neurologist at disease very specific clinical and radiological diagnosis which needs investigation under the care of neurologist. Wound cultures growing multiple organisms. Bilateral lower leg/feet ulcer left worse than right. Right superficial ulcer over lateral toes/lateral margin of forefoot. History of diabetes mellitus for many years, complicated with diabetic neuropathy. Physical exam General: Alert, Oriented x3, Cooperative. Obesity grade 1, BMI 32.1 kg/m? HEENT: Atraumatic, PERRLA, EOMI, Normocephalic. Oral: No Gingival or Mucosal Lesions/ Ulcerations Neck: Supple, No JVD, Negative Carotid Bruits Chest wall/Lungs: Air entry diminished in bilateral lung bases. No crepitation/rhonchi Cardiovascular: Regular rate and rhythm, Normal S1,S2, No M/G/R Abdomen: Bowel Sounds Present, Soft, Non Tender, Non-Distended : No dysuria. No renal angle tenderness. No suprapubic tenderness. Extremities: No edema, Capillary Refill Less than 3 Seconds Skin: Ulcer over left and right feet covered with a dressing. Left foot with Arnol wrap bandage. Dressing is dry Musculoskeletal: No Tenderness to Palpation of Joints or Extremities Neurological: Cranial nerves II-XII grossly intact, DTR 2+/4. Neuropathy. Psych/Mental Status: Flat affect. Assessment & Plan Assessment/Plan (1) Sepsis: QUALIFIERS: Sepsis type: sepsis due to unspecified organism Sepsis acute organ dysfunction status: without acute organ dysfunction Qualified Code(s): A41.9 - Sepsis, unspecified organism (2) Acute osteomyelitis of left foot: (3) Diabetic infection of left foot: PLAN: Plan 64-year-old gentleman was admitted with high fever 103.7 Fahrenheit, drainage from the little toe of left foot with no sensation. X-ray of the foot shows subcutaneous air and destruction of proximal phalanx of the little toe/probably head of the fifth metatarsal. 1. Left foot osteomyelitis and diabetic foot ulcer status postdebridement: Patient initially admitted in ICU and then transferred to [facility] floor. Patient has left fifth toe and fifth metatarsal osteomyelitis, gas gangrene as per operative note. Debridement of ulceration down including bone on 10/29/2024 Does not meet criteria for sepsis at the time of admission. Started on broad-spectrum antibiotic IV vancomycin and Zosyn. Prelim wound culture growing Staph aureus. ID consulted for tomorrow. Continue nonweightbearing on his left lower extremity and given the multiple ulcers he has on his right foot he is heel weightbearing on the right 11/01: Wound culture growing Proteus mirabilis and Staph aureus. 1+ GPC, GNR 1+ beta-hemolytic organism 3+. 11/02: Multiple organisms growing. Wound culture positive for GNR x 2, Proteus, strep and staph aureus so far. Wound culture on 10/06 shows a small NAD, GBS, corynebacterium and staph epi lactulose. Recommended to continue Vanco and Zosyn. ID planning for p.o. antibiotics at discharge for possible 6 weeks 11/03: Wound culture growing Morganella, Proteus, GB strep, strep group G, MSSA and anaerobes. He wrote prescription for Cipro and Augmentin at time of discharge for 6 weeks, stop date 12/10/2024. Recommended lab next week, CBC and CMP on Friday. Counseled on the potential side effects, QTc less than 450 ms here. ID follow-up in 2 weeks. 2. Complicated DM type II with diabetic polyneuropathy: Glucose 86. [place]uc[place]ck also between 70-99. Avoid hypoglycemia. On hypoglycemia protocol. Hold metformin 3. Essential hypertension and dyslipidemia ?Blood pressure 142/80. Controlled. Lisinopril and metoprolol resumed. ? Continue to monitor 11/03 blood pressure on lower side 93/54. Elderly after acute antihypertensive medication. 4. Chronic DVT/PE Xarelto resumed 5. Gout ? Continue with allopurinol 6. Chronic increased urinary frequency and elevated PSA: Was supposed to follow-up with urologist Dr. Amos today. At the request of his , urologist consulted. DVT: SCDs Charges/Coding Visit Charges Inpatient E&M: 47573 Subs Hosp L2
--- NOTE | 2024-11-03 15:06 | CASEMGMT ---
YELENA SAUER NOTE: VM received from Gabo Yeager RN, CM, inquiring about discharge plan. Return call placed to Shobha. No answer. VM left w/her re: plan is for SNF. Susi BYRD RN CM
--- NOTE | 2024-11-03 16:35 | CASEMGMT ---
Discharge Planning Due to [facility] being down, referral was faxed to [facility]. Fax confirmation rec'd. Laurel Ware DC Planning Asst.
[2024-11-03] MEDS: 0.9% Normal Saline (250mL Bag) 250 ML 15 ML IV (19:28)
[2024-11-04 02:00] VITALS: BP 143/87; PULSE 82; RESP 16; TEMP 36.6; O2SAT 98
[2024-11-04] MEDS: Piperacil/Tazobactam 3.375 GM in 0.9% Normal Saline (50mL MB+) 50 ML IV ×2 (06:23→14:20)
[2024-11-04 06:43] LABS: Anion Gap 12 (5-15); BUN 17 mg/dL (4-19); BUN/Creat Ratio 16.5 RATIO (10-20); Calcium,Total 8.9 mg/dL (7.6-11.0); Carbon Dioxide 23.9 mmol/L (21.0-32.0); Chloride 101 mmol/L (98-108); Estimated Creatinine Clearance 87.01 ml/min (50-250); Glucose 151 mg/dL (70-99); Potassium 3.8 mmol/L (3.3-5.1)
[2024-11-04 08:00] VITALS: BP 146/82; PULSE 78; RESP 16; TEMP 36.8; O2SAT 98
[2024-11-04 10:23] VITALS: PULSE 78
[2024-11-04] MEDS: Senna/Docusate Sodium 1 Tablet 2 TABLET PO (10:23)
[2024-11-04] MEDS: Lactobacillis Acidophilus 1 CAP PO ×2 (10:23→14:21)
--- NOTE | 2024-11-04 12:18 | CASEMGMT ---
Addendum entered by Hetal Gregory 11/04/24 15:18: Provided pt and sig other with Shobha's contact information. Answered all questions regarding dc to [facility]. Pt and sig other deny further needs at this time. Original Note: Received tc from Shobha KIRK CM at [facility]/. She is requesting an update on dc planning. She is aware that the pt has been referred to [facility] and we are awaiting precert as the patient is medically ready. She states she does not see a request for rehab submitted. She is aware that a ref number was requested from [facility] but was stated they did not receive one yet. She states that as soon as the request is submitted a reference number is assigned. Updated dc management planner. She requested her information be given to the patient as she has tried to call multiple times and pt has been busy. Shobha KIRK CM .
--- NOTE | 2024-11-04 12:32 | CASEMGMT ---
Discharge Planning Requested updates sent to [facility]. Laurel Ware DC Planning Asst.
[2024-11-04 14:00] VITALS: BP 130/71; PULSE 87; RESP 16; TEMP 36.6; O2SAT 100
[2024-11-04] MEDS: 0.9% Saline Lock 10 ML Syringe IV (14:20)
--- NOTE | 2024-11-04 14:27 | CASEMGMT ---
[facility] has obtained auth to admit. YELENA CM updated. Laurel Ware DC Planning Asst.
--- NOTE | 2024-11-04 14:28 | TREXTCAR_ITS ---
Diet Diet Order/Speech Therapy: INPATIENT Hospital Diet / Speech Therapy Order(s) 10/29/24 23:49 Diet: Carbohydrate Controlled Food consistency:: Regular Liquid Consistency:: Regular/Thin Type of Dietary Supplement:: Collin Diet Comments: orange collin with breakfast and dinner; 240ml cho glucerna shake with lunch Routine Orders/Code Status Suppository Type: Dulcolax 10mg Suppository Frequency: Daily PRN Routine Lab Work: CBC and BMP (CBC and BMP every week while patient is on antibiotic and fax to ID Dr. De La Cruz) DC O2, CPAP, BIPAP needs Home O2 Discharge instructions: No Wound(s) left little toe: Wound Type: Neuropathic/Diabetic Foot Ulcer left plantar foot: Wound Type: Neuropathic/Diabetic Foot Ulcer right foot: Wound Type: Neuropathic/Diabetic Foot Ulcer LT FOOT: Wound Type: Neuropathic/Diabetic Foot Ulcer Dressing Change: KCI wound VAC right 2nd toe: Wound Type: Neuropathic/Diabetic Foot Ulcer Dressing Change: betadine with dry dressing right plantar foot: Wound Type: Neuropathic/Diabetic Foot Ulcer Dressing Change: betadine Adaptic Therapies Extremity Affected:: Bilateral Lower Physical Therapy: Eval and Treat Occupational Therapy: Eval and Treat Speech Therapy: Eval and Treat Problem/Diagnosis (1) Sepsis: Status: Acute Code(s): A41.9 - Sepsis, unspecified organism (2) Acute osteomyelitis of left foot: Status: Acute Code(s): M86.172 - Other acute osteomyelitis, left ankle and foot (3) Diabetic infection of left foot: Status: Acute Code(s): E11.628 - Type 2 diabetes mellitus with other skin complications; L08.9 - Local infection of the skin and subcutaneous tissue, unspecified Plan 64-year-old gentleman was admitted with high fever 103.7 Fahrenheit, drainage from the little toe of left foot with no sensation. X-ray of the foot shows subcutaneous air and destruction of proximal phalanx of the little toe/probably head of the fifth metatarsal. 1. Left foot osteomyelitis and diabetic foot ulcer status postdebridement: Patient initially admitted in ICU and then transferred to [facility]. Patient has left fifth toe and fifth metatarsal osteomyelitis, gas gangrene as per operative note. Debridement of ulceration down including bone on 10/29/2024 Does not meet criteria for sepsis at the time of admission. Started on broad-spectrum antibiotic IV vancomycin and Zosyn. Prelim wound culture growing Staph aureus. ID consulted for tomorrow. Continue nonweightbearing on his left lower extremity and given the multiple ulcers he has on his right foot he is heel weightbearing on the right 11/01: Wound culture growing Proteus mirabilis and Staph aureus. 1+ GPC, GNR 1+ beta-hemolytic organism 3+. 11/02: Multiple organisms growing. Wound culture positive for GNR x 2, Proteus, strep and staph aureus so far. Wound culture on 10/06 shows a small NAD, GBS, corynebacterium and staph epi lactulose. Recommended to continue Vanco and Zosyn. ID planning for p.o. antibiotics at discharge for possible 6 weeks 11/03: Wound culture growing Morganella, Proteus, GB strep, strep group G, MSSA and anaerobes. He wrote prescription for Cipro and Augmentin at time of discharge for 6 weeks, stop date 12/10/2024. Recommended lab next week, CBC and CMP on Friday. Counseled on the potential side effects, QTc less than 450 ms here. ID follow-up in 2 weeks. 2. Complicated DM type II with diabetic polyneuropathy: Glucose 86. Gluc[place]ck also between 70-99. Avoid hypoglycemia. On hypoglycemia protocol. Hold metformin 3. Essential hypertension and dyslipidemia ?Blood pressure 142/80. Controlled. Lisinopril and metoprolol resumed. ? Continue to monitor 11/03 blood pressure on lower side 93/54. Elderly after acute antihypertensive medication. 4. Chronic DVT/PE Xarelto resumed 5. Gout ? Continue with allopurinol 6. Chronic increased urinary frequency and elevated PSA: Was supposed to follow-up with urologist Dr. Amos today. At the request of his , urologist consulted. DVT: SCDs Allergies/Procedures Done in Hospital Allergies No Known Allergies Allergy (Verified 10/29/24 16:39) Type of Care/Length of Stay Estimated LOS: Convalescent Care Less Than 30 days Type of Care Needed: Skilled Rehab Potential: Good Prognosis: Good Additional Orders/Day of Discharge Day of Discharge: 11/04/24 Dietary and Speech Recommendations Dietitian Recommendations/Changes: Continue CCD to manage medical conditions. Continue orange collin with breakfast and dinner to promote wound healing. Will order 240ml chocolate glucerna shake with lunch. Will monitor weight trends. Discharge Plan Admission Admit Date/Time: 10/29/24 19:49 Attending Provider: Wes Arellano Primary Care Provider: Mayco Fenton Consulting Providers: Ruslan Adams; Javy Lynch; Delbert Mak; Felipe De La Cruz; Steve Amos; Teressa Davey Discharge Orders/Prescriptions Prescriptions: New ciprofloxacin HCl [Cipro] 500 mg tablet 500 mg PO BID Qty: 70 0RF amoxicillin-pot clavulanate 875-125 mg tablet 1 tab PO BID Qty: 72 0RF sennosides-docusate sodium [Stimulant Laxative Plus] 8.6-50 mg Tablet 2 tab PO BID Qty: 0 0RF insulin lispro [Humalog KwikPen Insulin] 100 unit/mL Insulin Pen See Protocol subcut ACHS Qty: 0 0RF Protocol: 1. Sliding Scale Insulin Low Dosing Condition: 150-224 mg/dl = 1 unit Condition: 225-299 mg/dl = 2 units Condition: 300-374 mg/dl = 3 units Condition: 375-449 mg/dl = 4 units Condition: Greater than 449 call physician Protocol Text: Suggested for: - Patients on Total Daily Insulin Dose of 15-27 units - Thin, elderly, renal patients LOW DOSING ALGORITHM Oanhoph,saliva-B.bif-S.therm 175 mg Capsule 1 cap PO 2XD Qty: 0 0RF Rx Instructions: While patient is taking antibiotic Continued Xarelto 10 mg tablet 10 mg PO QDAY Rx Instructions: for 35 days metformin 500 mg tablet 500 mg PO QDAY glimepiride 2 mg tablet 6 mg PO QAM Rx Instructions: administer with breakfast allopurinol 200 mg tablet 300 mg PO QDAY metoprolol tartrate 50 mg tablet 25 mg PO QDAY atorvastatin 40 mg tablet 10 mg PO QDAY lisinopril 10 mg tablet 5 mg PO QDAY Referrals / Follow Up: Mayco Fenton MD [Primary Care Provider, Family Practice] - Within 2 Weeks Felipe De La Cruz MD [Med Staff - Active Staff, Infectious Disease] - Within 2 Weeks Javy Lynch, MARITAM [Med Staff - Active Staff, Podiatry] - Within 1 Week Teressa Davey PA [Med Staff - Adv Practice Prof, Vascular Surgery] - Within 1 Month Referral Note: Follow-up in 2 to 4 weeks with vascular surgery Disposition Disposition (needs filled in before D/C Order can be placed): Longterm Facility (1) Sepsis Qualifiers: Sepsis type: sepsis due to unspecified organism Sepsis acute organ dysfunction status: without acute organ dysfunction Qualified Code(s): A41.9 - Sepsis, unspecified organism
--- NOTE | 2024-11-04 14:37 | DS.PCM_ITS ---
Providers Date of Admission: 10/29/24 Date of Discharge: 11/04/24 Primary Care Physician: Dr. Mayco Fenton MD Consultations 10/30/24 12:07 Consult: Podiatry Routine Consulting Provider: Javy Lynch Reason for Consult: Left foot osteomyelitis EMERGENT Consult: No MD Notified: Yes Date Notified: 10/30/24 Time Notified: 12:07 Method of Notification: Verbal 10/31/24 07:32 Consult: Infectious Disease Routine Consulting Provider: Felipe De La Cruz Reason for Consult: Left foot Osteo. 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 Comment: Reason for Consult:: left foot 11/02/24 10:11 Consult: Urology Routine Consulting Provider: Steve Amos Reason for Consult: elevated PSA, Inc frequency, BPH EMERGENT Consult: No MD Notified: Yes Date Notified: 11/02/24 Time Notified: 10:11 Method of Notification: Verbal 11/02/24 14:08 Consult: Vascular Surgery Routine Consulting Provider: Teressa Davey Reason for Consult: PAD lower extremity EMERGENT Consult: No MD Notified: Yes Date Notified: 11/02/24 Time Notified: 14:08 Method of Notification: Answering Service Reason For Visit: SEPSIS 2/2 LEFT DFU Diagnosis Discharge Diagnosis (1) Sepsis: Status: Acute Code(s): A41.9 - Sepsis, unspecified organism Qualifiers: Sepsis type: sepsis due to unspecified organism Sepsis acute organ dysfunction status: without acute organ dysfunction Qualified Code(s): A41.9 - Sepsis, unspecified organism (2) Acute osteomyelitis of left foot: Status: Acute Code(s): M86.172 - Other acute osteomyelitis, left ankle and foot (3) Diabetic infection of left foot: Status: Acute Code(s): E11.628 - Type 2 diabetes mellitus with other skin complications; L08.9 - Local infection of the skin and subcutaneous tissue, unspecified Plan 64-year-old gentleman was admitted with high fever 103.7 Fahrenheit, drainage from the little toe of left foot with no sensation. X-ray of the foot shows subcutaneous air and destruction of proximal phalanx of the little toe/probably head of the fifth metatarsal. 1. Left foot osteomyelitis and diabetic foot ulcer status postdebridement: Patient initially admitted in ICU and then transferred to [facility] floor. Patient has left fifth toe and fifth metatarsal osteomyelitis, gas gangrene as per operative note. Debridement of ulceration down including bone on 10/29/2024 Does not meet criteria for sepsis at the time of admission. Started on broad-spectrum antibiotic IV vancomycin and Zosyn. Prelim wound culture growing Staph aureus. ID consulted for tomorrow. Continue nonweightbearing on his left lower extremity and given the multiple ulcers he has on his right foot he is heel weightbearing on the right 11/01: Wound culture growing Proteus mirabilis and Staph aureus. 1+ GPC, GNR 1+ beta-hemolytic organism 3+. 11/02: Multiple organisms growing. Wound culture positive for GNR x 2, Proteus, strep and staph aureus so far. Wound culture on 10/06 shows a small NAD, GBS, corynebacterium and staph epi lactulose. Recommended to continue Vanco and Zosyn. ID planning for p.o. antibiotics at discharge for possible 6 weeks 11/03: Wound culture growing Morganella, Proteus, GB strep, strep group G, MSSA and anaerobes. He wrote prescription for Cipro and Augmentin at time of discharge for 6 weeks, stop date 12/10/2024. Recommended lab next week, CBC and CMP on Friday. Counseled on the potential side effects, QTc less than 450 ms here. ID follow-up in 2 weeks. 11/04: Patient approved for SNF, [facility]. Discharged on the above antibiotic. Follow-up ID as mentioned above. Follow-up with podiatry and vascular surgery. 2. Complicated DM type II with diabetic polyneuropathy: Glucose 86. [place] also between 70-99. Avoid hypoglycemia. On hypoglycemia protocol. Hold metformin 11/04: Continue Accu-Cheks. Metformin resumed 3. Essential hypertension and dyslipidemia ?Blood pressure 142/80. Controlled. Lisinopril and metoprolol resumed. ? Continue to monitor 11/03 blood pressure on lower side 93/54. Elderly after acute antihypertensive medication. 11/04: Blood pressure is controlled. On lisinopril 5 mg daily. 4. Chronic DVT/PE Xarelto resumed 5. Gout ? Continue with allopurinol 6. Chronic increased urinary frequency and elevated PSA: Was supposed to follow-up with urologist Dr. Amos today. At the request of his , urologist consulted. DVT: SCDs Discharge medication reconciliation done. Discharge follow-up instructions completed. Discharge process discussed with the patient and all questions were answered to patient's satisfaction. Follow with PCP in 1 to 2 weeks Total time spent, exact 35 minutes on discharge meds reconciliation, examination, coordination of care with nurses and ancillary staff, review of imaging and blood test and discussion with the patient on follow-up instructions. Medications at Discharge Home Medications allopurinol 200 mg tablet 300 mg PO QDAY 06/22/24 atorvastatin 40 mg tablet 10 mg PO QDAY 06/22/24 glimepiride 2 mg tablet 6 mg PO QAM 06/22/24 lisinopril 10 mg tablet 5 mg PO QDAY 06/22/24 metformin 500 mg tablet 500 mg PO QDAY 06/22/24 metoprolol tartrate 50 mg tablet 25 mg PO QDAY 06/22/24 rivaroxaban 10 mg tablet (Xarelto) 10 mg PO QDAY 06/22/24 amoxicillin 875 mg-potassium clavulanate 125 mg tablet 1 tab PO BID #72 tabs 11/03/24 ciprofloxacin HCl 500 mg tablet (Cipro) 500 mg PO BID #70 tabs 11/03/24 L.acidophil,salivari-Bifido bifidum-Strep thermoph 175 mg capsule 1 cap PO 2XD #0 caps 11/04/24 insulin lispro 100 unit/mL subcutaneous pen (Humalog KwikPen (U-100) Insulin) See Protocol subcut ACHS #0 mL 11/04/24 sennosides 8.6 mg-docusate sodium 50 mg tablet (Stimulant Laxative Plus) 2 tab PO BID #0 tabs 11/04/24 Physical Exam Narrative Seen and examined. No acute issues. Bilateral lower leg/feet ulcer left worse than right. Right superficial ulcer over lateral toes/lateral margin of forefoot. History of diabetes mellitus for many years, complicated with diabetic neuropathy. Physical exam General: Alert, Oriented x3, Cooperative. Obesity grade 1, BMI 32.1 kg/m? HEENT: Atraumatic, PERRLA, EOMI, Normocephalic. Oral: No Gingival or Mucosal Lesions/ Ulcerations Neck: Supple, No JVD, Negative Carotid Bruits Chest wall/Lungs: Air entry diminished in bilateral lung bases. No crepitation/rhonchi Cardiovascular: Regular rate and rhythm, Normal S1,S2, No M/G/R Abdomen: Bowel Sounds Present, Soft, Non Tender, Non-Distended : No dysuria. No renal angle tenderness. No suprapubic tenderness. Extremities: No edema, Capillary Refill Less than 3 Seconds Skin: Ulcer over left and right feet covered with a dressing. Left foot with Arnol wrap bandage. Dressing is dry Musculoskeletal: No Tenderness to Palpation of Joints or Extremities Neurological: Cranial nerves II-XII grossly intact, DTR 2+/4. Neuropathy. Psych/Mental Status: Flat affect. Weight / BMI Weight Weight: 210 lb 1.608 oz Body Mass Index (BMI) 30.0 ABG / Lab / Microbiology Data 11/01/24 05:30 11/04/24 05:18 Laboratory: Laboratory Results - last 24 hr 11/03/24 16:12: POC Glucose 268 H 11/03/24 21:32: POC Glucose 124 H 11/04/24 05:18: Sodium 137, Potassium 3.8, Chloride 101, Carbon Dioxide 23.9, Anion Gap 12, BUN 17, Creatinine 1.02, Estim Creat Clear Calc 87.01, Est GFR (MDRD) Non-Af 83, BUN/Creatinine Ratio 16.5, Glucose 151 H, Calcium 8.9 11/04/24 06:23: POC Glucose 162 H 11/04/24 12:23: POC Glucose 189 H Microbiology: Microbiology 10/29/24 20:15 Wound - Left Foot Gram Stain - Final 10/29/24 20:15 Wound - Left Foot Wound Culture - Final Streptococcus agalactiae (B) Proteus mirabilis Morganella morganii sp morgani 10/29/24 20:15 Wound - Left Foot Anaerobic Culture - Final Anaerobic cocci Bacteroides fragilis 10/29/24 20:15 Wound - Left Foot Gram Stain - Final 10/29/24 20:15 Wound - Left Foot Wound Culture - Final Streptococcus group G Strep anginosus 10/29/24 20:15 Wound - Left Foot Anaerobic Culture - Final Bacteroides fragilis 10/29/24 17:35 Blood Culture (Wb) - Anticubital Left Blood Culture - Final No growth in 5 days. 10/29/24 18:20 Blood Culture (Wb) - Anticubital Left Blood Culture - Final No growth in 5 days. 10/29/24 20:15 Wound - Right Foot Gram Stain - Final 10/29/24 20:15 Wound - Right Foot Wound Culture - Final Staphylococcus aureus Streptococcus group G 10/29/24 20:15 Wound - Right Foot Anaerobic Culture - Final No anaerobic bacteria isolated. 10/29/24 17:45 Wound - Toe Gram Stain - Final 10/29/24 17:45 Wound - Toe Wound Culture - Final Proteus mirabilis Streptococcus group G Streptococcus group B 10/29/24 17:45 Wound - Left Foot Gram Stain - Final 10/29/24 17:45 Wound - Left Foot Wound Culture - Final Proteus mirabilis Streptococcus group G Gram positive lea 10/30/24 17:05 Blood Culture (Wb) - Left Hand Blood Culture - Preliminary No growth in 48 hours. 10/30/24 19:00 Blood Culture (Wb) - Right Wrist Blood Culture - Preliminary No growth in 48 hours. 10/29/24 18:20 Urine, Clean Catch Urine Culture - Final Mixed Gram Positive Organisms D/C Instructions DC O2, CPAP, BIPAP Needs Home O2 Discharge instructions: No Meaningful Use Info Meaningful Use Meaningful Use Diagnoses (Choose all that apply): None applicable Discharge Plan Admission Admit Date/Time: 10/29/24 19:49 Attending Provider: Wes Arellano Primary Care Provider: Mayco Fenton Consulting Providers: Ruslan Adams; Javy Lynch; Delbert Mak; Felipe De La Cruz; Steve Amos; Teressa Davey Discharge Orders/Prescriptions Prescriptions: New ciprofloxacin HCl [Cipro] 500 mg tablet 500 mg PO BID Qty: 70 0RF amoxicillin-pot clavulanate 875-125 mg tablet 1 tab PO BID Qty: 72 0RF sennosides-docusate sodium [Stimulant Laxative Plus] 8.6-50 mg Tablet 2 tab PO BID Qty: 0 0RF insulin lispro [Humalog KwikPen Insulin] 100 unit/mL Insulin Pen See Protocol subcut ACHS Qty: 0 0RF Protocol: 1. Sliding Scale Insulin Low Dosing Condition: 150-224 mg/dl = 1 unit Condition: 225-299 mg/dl = 2 units Condition: 300-374 mg/dl = 3 units Condition: 375-449 mg/dl = 4 units Condition: Greater than 449 call physician Protocol Text: Suggested for: - Patients on Total Daily Insulin Dose of 15-27 units - Thin, elderly, renal patients LOW DOSING ALGORITHM Eva,saliva-BDonovanbif-S.therm 175 mg Capsule 1 cap PO 2XD Qty: 0 0RF Rx Instructions: While patient is taking antibiotic Continued Xarelto 10 mg tablet 10 mg PO QDAY Rx Instructions: for 35 days metformin 500 mg tablet 500 mg PO QDAY glimepiride 2 mg tablet 6 mg PO QAM Rx Instructions: administer with breakfast allopurinol 200 mg tablet 300 mg PO QDAY metoprolol tartrate 50 mg tablet 25 mg PO QDAY atorvastatin 40 mg tablet 10 mg PO QDAY lisinopril 10 mg tablet 5 mg PO QDAY Referrals / Follow Up: Javy Lynch DPM [Med Staff - Active Staff, Podiatry] - Within 1 Week Mayco Fenton MD [Primary Care Provider, Family Practice] - Within 2 Weeks Felipe De La Cruz MD [Med Staff - Active Staff, Infectious Disease] - Within 2 Weeks Teressa Davey PA [Med Staff - Adv Practice Prof, Vascular Surgery] - Within 1 Month Referral Note: Follow-up in 2 to 4 weeks with vascular surgery Steve Amos MD [Med Staff - Active Staff, Urology] - Within 1 Month Referral Note: For increased frequency and elevated PSA Disposition Disposition (needs filled in before D/C Order can be placed): [facility] Facility Charges/Coding Visit Charges Inpatient E&M: 63435 Disch Hosp >30min
--- NOTE | 2024-11-04 14:53 | CASEMGMT ---
Precert has been obtained, hospitalist is aware and pt is medically ready for dc to [facility] under skilled level of care. 7000 completed at this time, copy placed in chart and original in SNF packet. DC commercial assistant to make final dc arrangements.
--- NOTE | 2024-11-04 15:07 | PHA.DC.MR.R ---
Pharmacy [place] Med Reconciliation Pharmacy Service has performed discharge medication reconciliation for this patient. The patient's discharge medication list was reviewed for discrepancies and discrepancies were resolved. Medications at Discharge Home Medications allopurinol 200 mg tablet 300 mg PO QDAY 06/22/24 atorvastatin 40 mg tablet 10 mg PO QDAY 06/22/24 glimepiride 2 mg tablet 6 mg PO QAM 06/22/24 lisinopril 10 mg tablet 5 mg PO QDAY 06/22/24 metformin 500 mg tablet 500 mg PO QDAY 06/22/24 metoprolol tartrate 50 mg tablet 25 mg PO QDAY 06/22/24 rivaroxaban 10 mg tablet (Xarelto) 10 mg PO QDAY 06/22/24 amoxicillin 875 mg-potassium clavulanate 125 mg tablet 1 tab PO BID #72 tabs 11/03/24 ciprofloxacin HCl 500 mg tablet (Cipro) 500 mg PO BID #70 tabs 11/03/24 L.acidophil,salivari-Bifido bifidum-Strep thermoph 175 mg capsule 1 cap PO 2XD #0 caps 11/04/24 insulin lispro 100 unit/mL subcutaneous pen (Humalog KwikPen (U-100) Insulin) See Protocol subcut ACHS #0 mL 11/04/24 sennosides 8.6 mg-docusate sodium 50 mg tablet (Stimulant Laxative Plus) 2 tab PO BID #0 tabs 11/04/24
--- NOTE | 2024-11-04 15:07 | CASEMGMT ---
Discharge Planning Discharge orders, signed med list, and transport time sent to [facility]. Physicians will transport pt by wheelchair at 4p. Nursing, SW, and pt updated. left for pts sig other ([facility]). Laurel Ware DC Planning Asst.
--- NOTE | 2024-11-04 15:10 | WOUNDNOTE ---
Wound VAC removed from the left foot wound since patient is being discharged to the [facility] today. NS wet to dry dressing placed. covered with dry dressings and wrapped with kerlix and AFSHAN wrap. wound VAC will be reapplied at the [facility].
--- NOTE | 2024-11-04 16:40 | CASEMGMT ---
Discharge Planning Call received from pt sig other (Keely). She and pt have arrived at [facility] and the nurse was not aware that pt would need wound vac. Upon review, wound vac order with wound nursing notes were found sent in referral. Additionally, Tahir @ [facility] confirmed that they were rec'd with initial referral. Wound Vac order faxed directly to [facility] nurse and fax confirmation was rec'd. Laurel Ware DC Planning Asst.
--- NOTE | 2024-11-05 12:57 | CASEMGMT ---
Received tc from pt sig other Keely who asks if pt can go to the [facility] as this was recommended by the wound nurse at [facility]. She is aware she can call 's office but typically he sees pts in his office. She states they do not have confidence in this facility as pt still does not have the wound vac. She states they would like to trf facilities. She is aware to reach out to the SW at [facility] to facilitate this. She denies any further questions and thanks this RN for the information.
== END 2024-11-04 15:52 | disposition skilled nursing facility (03) | DRG 616 ==
LOC: ED 19:02 → ICU 19:42 → MS3 10-30 15:03
PROVIDERS: Family Medicine; Internal Medicine Infectious Disease; Podiatrist; Admitting Provider Internal Medicine; Emergency Provider Emergency Medicine; PCP Family Medicine; Visit Provider Internal Medicine
PROC: 0Y6N0ZF Detachment at Left Foot, Partial 5th Ray, Open Approach (ICD-10-PCS; principal; 2024-10-29 20:00)
DX: E11.621 Type 2 diabetes mellitus with foot ulcer (principal); A48.0 Gas gangrene; E11.52 Type 2 diabetes mellitus with diabetic peripheral angiopathy with gangrene; L03.115 Cellulitis of right lower limb; M86.172 Other acute osteomyelitis, left ankle and foot; L03.116 Cellulitis of left lower limb; L97.524 Non-pressure chronic ulcer of other part of left foot with necrosis of bone; B95.1 Streptococcus, group B, as the cause of diseases classified elsewhere; I10 Essential (primary) hypertension; Z68.32 Body mass index [BMI] 32.0-32.9, adult; E11.69 Type 2 diabetes mellitus with other specified complication; E11.65 Type 2 diabetes mellitus with hyperglycemia; E11.42 Type 2 diabetes mellitus with diabetic polyneuropathy; E11.628 Type 2 diabetes mellitus with other skin complications; E78.5 Hyperlipidemia, unspecified; M10.9 Gout, unspecified; L97.512 Non-pressure chronic ulcer of other part of right foot with fat layer exposed; B95.4 Other streptococcus as the cause of diseases classified elsewhere; B96.4 Proteus (mirabilis) (morganii) as the cause of diseases classified elsewhere; B95.61 Methicillin susceptible Staphylococcus aureus infection as the cause of diseases classified elsewhere; B96.89 Other specified bacterial agents as the cause of diseases classified elsewhere; E66.811 Obesity, class 1; R97.20 Elevated prostate specific antigen [PSA]; R35.0 Frequency of micturition; Z96.642 Presence of left artificial hip joint; Z79.01 Long term (current) use of anticoagulants; Z79.84 Long term (current) use of oral hypoglycemic drugs; Z79.899 Other long term (current) drug therapy; Z86.711 Personal history of pulmonary embolism; Z86.718 Personal history of other venous thrombosis and embolism
CPT/HCPCS: 36415; 73630; 80048; 80053; 80202; 81001; 82565; 82962; 83036; 83605; 84443; 85025; 85610; 85652; 85730; 86140; 87040; 87070; 87075; 87077; 87086; 87088; 87186; 87205; 87641; 88305; 88307; 88311; 93005; 93923; 94668; 94760; 97162; 97166; 97530; 97535; 97802; 97803; 99285; A4216; J2405

== ENCOUNTER → 2024-11-22 05:10 | Outpatient (REF) | payer BC, SELFPAY ==
[2024-11-22 07:39] LABS: Hematocrit 36.1 % (40-54); Hemoglobin 12.1 g/dL (13.0-16.5); Immature Granulocytes Count 0.010 X10^3/uL (0.0-0.0); Mean Corp Hgb Conc 33.5 g/dL (32-36); Mean Corpuscular Volume 88.9 fL (80-94); Mean Platelet Vol. 10.5 fl (6.2-12.0); NRBC Flagged by Analyzer 0 % (0-5); Platelet Count 265 K/mm3 (150-450); RBC Distribution Width CV 13.2 % (11.6-14.6); RBC Distribution Width SD 43.0 fl (35.1-43.9); Red Blood Count 4.06 M/mm3 (4.6-6.2); White Blood Count 9.3 K/mm3 (4.4-11.0)
[2024-11-22 07:49] LABS: Anion Gap 9 (5-15); BUN 22 mg/dL (4-19); BUN/Creat Ratio 22.7 RATIO (10-20); Calcium,Total 9.0 mg/dL (7.6-11.0); Carbon Dioxide 26.6 mmol/L (21.0-32.0); Chloride 105 mmol/L (98-108); Glucose 77 mg/dL (70-99); Potassium 3.6 mmol/L (3.3-5.1)
== END ==
LOC: OLS.WHLTCC 05:10
PROVIDERS: PCP Family Medicine; Referring Provider Internal Medicine; Visit Provider Internal Medicine
DX: E11.65 Type 2 diabetes mellitus with hyperglycemia (principal); E11.42 Type 2 diabetes mellitus with diabetic polyneuropathy
CPT/HCPCS: 36415; 80048; 85025

== ENCOUNTER → 2024-12-07 | Outpatient (CLI) | payer BC, SELFPAY ==
--- OUTSIDE RECORDS SUMMARY | 2024-12-07 20:54 | XMS RPT_ITS | CCD ---
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 Mao Primary Care Provider Eliceo AGUERO, Dr. Mao Attending Provider [phone] Eliceo AGUERO, Dr. Mao Referring Provider DAVALOS, HERIBERTO A Primary Care Unavailable DAVALOS, HERIBERTO A Primary Care Unavailable DAVALOS, HERIBERTO A Primary Care Unavailable PHILLIP DUMONT Attending Unavailable Syed DPM, Dr. Palafox Attending Provider Syed DPM, Dr. Palafox Referring Provider GIOVANNA COOK Attending Unavailable GIOVANNA COOK Referring Unavailable DAVALOS, HERIBERTO A Primary Care Unavailable THUENERGOYO Referring Unavailable DAVALOS, HERIBERTO A Primary Care Unavailable DAVALOS, HERIBERTO A Referring Unavailable DAVALOS, HERIBERTO A Primary Care Unavailable Enrique AGUERO, Dr. Bhatia Emergency Provider Dr. Ruslan Adams DO Admit Provider Unavail able Dr. Ruslan Adams DO Attending Provider Unav ailable DAVALOS, HERIBERTO A Attending Unavailable DAVALOS, HERIBERTO A Primary Care Unavailable THUENER, GOYO E Attending Unavailable DAVALOS, HERIBERTO A Referring Unavailable DAVALOS, HERIBERTO A Primary Care Unavailable DAVALOS, HERIBERTO A Attending Unavailable DAVALOS, HERIBERTO A Primary Care Unavailable MAHESH SANTOS Attending Unavailable THERON RIBERA Referring Unavailable DAVALOS, HERIBERTO A Primary Care Unavailable MIMI DONAHUE Attending Unavailable DAVALOS, HERIBERTO A Primary Care Unavailable THUENER, GOYO E Attending Unavailable DAVALOS, HERIBERTO A Primary Care Unavailable DAVALOS, HERIBERTO A Attending Unavailable DAVALOS, HERIBERTO A Primary Care Unavailable DAVALOS, HERIBERTO A Attending Unavailable DAVALOS, HERIBERTO A Primary Care Unavailable Eliceo AGUERO, Dr. Mao Primary Care Physician Eliceo AGUERO, Dr. Mao Attending Physician Syed MACKENZIE, Dr. Palafox Attending Physician Dr. Sriram Nunez MD Emergency Department Physician Dr. Ruslan Adams DO Admitting Physician Phoebe vailable Adams DO, Dr. Mercer Nurse Practitioner Unav ailable Syed DPM, Dr. Palafox Nurse Practitioner Adan AGUERO, Dr. Harvey Attending Physician Aubree AGUERO, Dr. Delbert Neely Nurse Practitioner Jono AGUERO, Dr. Wang Nurse Practitioner [phone] Dandre AGUERO, Dr. Steve Castaneda Nurse Practitioner [phone] Tamica GUSTAFSON, Teressa Nurse Practitioner Aubree AGUERO, Dr. Delbert Neely Attending Physician Adan AGUERO, Dr. Harvey Nurse Practitioner [phone] Tamica GUSTAFSON, Teressa Attending Physician Loulou AGUERO, Jun Attending Physician Unavail able Javy Lynch Referring Unavailable Javy Lynch Attending Unavailable Mayco Fenton Primary Care Unavailable Ruslan Adams Consulting Unavailable Mayco Fenton Primary Care Unavailable Non-Diabetic: < or = 5.6% Increased risk for developing diabetes: 5.7-6.4% Diagnostic of diabetes: > or = 6.5% Monitoring of Diabetes Age (y)................... .... Therapeutic Goal (%) Adults: >18................... ......<7.0 Pediatrics: 13-18................. ..<7.5 Pediatrics: 7-12.................. ..<8.0 Pediatrics: 0-6................... .. 7.5-8.5 [place] [employer] Diabetes Association. Diabetes Care 33(S1), Feb 2009 [facility] Hemoglobin A1Con 03-06-2023 HbA1c (Bld) [Mass fraction] 9.2 % High see below [facility] Lipid 1996 panelon 4 Cholesterol [Mass/Vol] 147 mg/dL 0 - 1 99 mg/dL [facility] Comment on above: Age Desirable Borderline High [...] 128(S5).Adult guidelines reference: NCEP ATPIII Guidelines,CHINEDU 2001, 258:8646-66 Venipuncture immediately after or during the administration of Metamizole may lead to falsely low results. Testing should be performed immediately prior to Metamizole dosing. Cholesterol in HDL [Mass/Vol] 37.7 mg/dL [facility] Comment on above: Age Very Low Low Normal High 0-19 Y < 35 < 40 40-45 ---- 20-24 Y ---- < 40 >45 ---- >24 Y ---- < 40 40-60 >60 Cholesterol in LDL [Mass/Vol] 48 mg/dL NINF - 99 mg/dL [facility] Comment on above: Near Borderline AGE Desirable Optimal High High Very High 0-19 Y 0 - 109 --- 110-129 >/= 130 ---- 20-24 Y 0 - 119 --- 120-159 >/= 160 ---- >24 Y 0 - 99 100-129 130-159 160-189 >/=190 Cholesterol in VLDL [Mass/Vol] 61 mg/dL High 0 - 40 mg/dL [facility] Cholesterol.total/Chol esterol in HDL [Mass ratio] 3.9 {ratio} [facility] Comment on above: Ref Values Desirable < 3.4 High Risk > 5.0 Non HDL Cholesterol 109 mg/dL 0 - 149 mg/dL [facility] Comment on above: Age Desirable Borderline High High Very High 0-19 Y 0 - 119 120 - 144 >/= 145 >/= 160 20-24 Y 0 - 149 150 - 189 >/= 190 ---- >24 Y 30 mg/dL above LDL Cholesterol goal Triglyceride [Mass/Vol] 305 mg/dL High 0 - 149 mg/dL [facility] Comment on above: Age Desirable Borderline High [...] Interpretation and review of laboratory results Abnormal [facility] TSH with reflex to Free T4 i f abnormalon 03-06-2023 Interpretation and review of laboratory results Normal [facility] TSH Qn 1.63 m[IU]/L [facility] TSH testing is performed using different testing methodology at [facility] than at other [facility]. Direct result comparisons should only be made within the same method. [facility] Urate [Mass/Vol]on Interpretation and review of laboratory results Normal [facility] Uric acidon 03-06-2023 Urate [Mass/Vol] 5.4 mg/dL 4.0 - 7.5 mg/dL [facility] Comment on above: Venipuncture immedia tely after or during the administration of Metamizole may lead to falsely low results. Testing should be performed immediately prior to Metamizole dosing. Vitamin B12on 03-06-2023 Cobalamin (Vitamin B12) [Mass/Vol] 975 pg/mL High 211 - 911 pg/mL [facility] AMB ENT Physician Progress N oteon 01-31-2023 AMB ENT Physician Progress Note JEFFERSON CARCAMO :1960 [facility]:[id number] Registration Date:01/31/2023 Chief Complaint Patient presents for [...] ankylosing spondylitis. He does not have a cook frozen dessert. His primary doctor recently retired. Review of Systems Noncontributory except as noted below Physical Exam Vitals & Measurements Height/Length Measured: 178 cm (01/31/23 15:39:00) Weight Measured: 111 kg (01/31/23 15:39:00) Body Mass Index Measured: 35.03 kg/m2 (01/31/23:39:00) Weight Measured - lbs2: 245 lb (01/31/23:39:00) Height/Length Measured - in2: 70 in (01/31/23:39:00) Body Mass Index Measured English2: 35.15 kg/m2 (01/31/23:39:00) BSA: 2.34 m2 (01/31/23:39:00) Ht/Wt Measurement Refused by Patient?2: No (01/31/23:39:00) Depression Screening Scores Initial Depression Screen Score: 0 (01/31/23:39:00) Fall Risk Assessment Is the patient ambulatory (mobile): Yes (01/31/23 15:39:00) Have you had a fall within the past: No (01/31/23:39:00) Have you had 2 or more falls [...] point may benefit from assessment by a cook frozen dessert. He also may benefit from physical therapy for his dizziness. Ordered: AMB Office/Outpt Est Pt Low MDM / 20-29 min significant, separately identifiable , 01/31/2023 15:50:00 EST, Ankylosing spondylitis / History of cholesteatoma / Dizziness AMB [place] impct[place] cerumen w/[place] [id number], 01/31/2023 15:50:00 EST, Ankylosing spondylitis / History of cholesteatoma / Dizziness, 1 2. History of cholesteatoma Z86.69 There is no evidence of recurrence. I did remove wax was right ear. Ordered: AMB Office/Outpt Est Pt Low MDM / 20-29 min significant, separately identifiable , 01/31/2023 15:50:00 EST, Ankylosing spondylitis / History of cholesteatoma / Dizziness AMB Remove impctd cerumen w/[place] [id number], 01/31/2023 15:50:00 EST, Ankylosing spondylitis / History of cholesteatoma / Dizziness, 1 3. Dizziness R42 He has no vertigo whatsoever. This is like related to his cervical spine. He may consider a trial of physical therapy at some point Ordered: AMB Office/Outpt Est Pt Low MDM / 20-29 min significant, separately identifiable [id number], 01/31/2023 15:50:00 EST, Ankylosing spondylitis / History of cholesteatoma / Dizziness AMB [place] impctd cerumen w/[place] [id number], 01/31/2023 15:50:00 EST, Ankylosing spondy (more content not included)... Normal [facility] Ambulatory Clinical Summaryo n 01-31-2023 Ambulatory [...] call to get immediate medical attention! Normal [facility] Comprehensive Intake - Texto n 01-31-2023 [...] in, 178 cm) Body Mass Index Measured [place] : 35.15 kg/m2 BSA [place] : 2.34 m2 Adriana Reynolds - 01/31/2023 [...] risk situation (congregated living, hemodialysis, infusion clinic, jail, assisted living, residential, homeless senior living, etc.)? : No Adriana Reynolds 01/31/2023 15:40 [...] Adriana Reynolds - 01/31/2023 15:40 EST Normal [facility] HEMOGLOBIN A1Con 09-19-2022 Glucose [Mass/Vol] 214 mg/dL [place] [facility] [place] on above: Performed By: #### H BA1E #### [facility] [address] [place] [address] HbA1c (Bld) [Mass fraction] 9.1 % Abnormal [facility] [place] Comment on above: Result Comment: Diag nosis of Diabetes-Adults Non-Diabetic: < or = 5.6% Increased risk for developing diabetes: 5.7-6.4% Diagnostic of diabetes: > or = 6.5% . Monitoring of Diabetes Age (y) Therapeutic Goal (%) Adults: >18 <7.0 Pediatrics: 13-18 <7.5 7-12 <8.0 0- 6 7.5-8.5 [place] [employer] Association. Diabetes Care 33(S1), Feb 2009. Performed By: #### H BA1E #### [facility] [address] [place] [address] CBC AND DIFFERENTIALon 09-18 % AUTOMATED IMMATURE GRAN 0.2 % Normal 0.0 - 0.9 [facility] [place] Comment on above: Result Comment: Leesa ture Granulocyte Count (IG) includes promyelocytes, myelocytes and metamyelocytes but does not include bands. Percent differential counts (%) should be interpreted in the context of the absolute cell counts (cells/L). Performed By: #### C BCDF #### [address] [place] [address] Basophils (Bld) [#/Vol] 0.05 10*3/uL Normal 0.00 - 0.10 [facility] [place] Comment on above: Performed By: #### C BCDF #### [address] [place] [address] Basophils/100 WBC (Bld) 0.3 % Normal 0.0 - 2.0 [facility] [place] Comment on above: Performed By: #### C BCDF #### [address] [place] [address] Eosinophils (Bld) [#/Vol] 0.66 10*3/uL Normal 0.00 - 0.70 [facility] [place] Comment on above: Performed By: #### C BCDF #### [address] [place] [address] Eosinophils/100 WBC (Bld) 4.5 % Normal 0.0 - 6.0 [facility] [place] Comment on above: Performed By: #### C BCDF #### [address] [place] [address] Erythrocyte distribution width (RBC) [Ratio] 13.0 % Normal 11.5 - 14.5 [facility] [place] Comment on above: Performed By: #### C BCDF #### [address] [place] [address] Hematocrit (Bld) [Volume fraction] 37.2 % Low 41.0 - 52.0 [facility] [place] Comment on above: Performed By: #### C BCDF #### [address] [place] [address] Hemoglobin (Bld) [Mass/Vol] 12.6 g/dL Low 13.5 - 17.5 [facility] Comment on above: Performed By: #### C BCDF #### [address] [place] [address] Lymphocytes (Bld) [#/Vol] 5.07 10*3/uL High 1.20 - 4.80 [facility] [place] Comment on above: Performed By: #### C BCDF #### [address] [place] [address] Lymphocytes/100 WBC (Bld) 34.9 % Normal 13.0 - 44.0 [facility] [place] Comment on above: Performed By: #### C BCDF #### [address] [place] [address] MCHC (RBC) [Mass/Vol] 33.9 g/dL Normal 32.0 - 36.0 [facility] Comment on above: Performed By: #### C BCDF #### [address] [place] [address] MCV (RBC) [Entitic vol] 94 fL Normal 80 - 100 [facility] [place] Comment on above: Performed By: #### C BCDF #### [address] [place] [address] Monocytes (Bld) [#/Vol] 1.06 10*3/uL High 0.10 - 1.00 [facility] [place] Comment on above: Performed By: #### C BCDF #### [address] [place] [address] Monocytes/100 WBC (Bld) 7.3 % Normal 2.0 - 10.0 [facility] [place] Comment on above: Performed By: #### C BCDF #### [address] [place] [address] Neutrophils (Bld) [#/Vol] 7.64 10*3/uL Normal 1.20 - 7.70 [facility] [place] Comment on above: Performed By: #### C BCDF #### [address] [place] [address] Neutrophils/100 WBC (Bld) 52.8 % Normal 40.0 - 80.0 [facility] [place] Comment on above: Performed By: #### C BCDF #### [address] [place] [address] Platelets (Bld) [#/Vol] 286 10*3/uL Normal 150 - 450 [facility] [place] Comment on above: Performed By: #### C BCDF #### [address] [place] [address] RBC 3.95 x10E12/L Low 4.50 - 5.90 [facility] [place] Comment on above: Performed By: #### C BCDF #### [facility] [address] [place] [address] WBC (Bld) [#/Vol] 14.5 10*3/uL High 4.4 - 11.3 [facility] Comment on above: Performed By: #### C BCDF #### [address] [place] [address] COMPREHENSIVE PANELon 2022 ALBUMIN Canceled Normal [facility] [place] Comment on above: Order Comment: TEST COMPREHENSIVE PANEL WAS CANCELLED, 09/18/2022 16:25 [facility] Performed By: #### C MP #### [address] [place] [address] ALKALINE PHOSPHATASE Canceled Normal [facility] [place] Comment on above: Order Comment: TEST COMPREHENSIVE PANEL WAS CANCELLED, 09/18/2022 16:25 [facility] Performed By: #### C MP #### [address] [place] [address] ALT Canceled Normal [facility] [place] Comment on above: Order Comment: TEST COMPREHENSIVE PANEL WAS CANCELLED, 09/18/2022 16:25 [facility] Result Comment: Svetlana ents treated with Sulfasalazine may generate falsely decreased results for ALT. Performed By: #### C MP #### [address] [place] [address] ANION GAP Canceled Normal [facility] [place] Comment on above: Order Comment: TEST COMPREHENSIVE PANEL WAS CANCELLED, 09/18/2022 16:25 [facility] Performed By: #### C MP #### [address] [place] [address] AST Canceled Normal [facility] [place] Comment on above: Order Comment: TEST COMPREHENSIVE PANEL WAS CANCELLED, 09/18/2022 16:25 [facility] Performed By: #### C MP #### [address] [place] [address] BICARBONATE Canceled Normal [facility] [place] Comment on above: Order Comment: TEST COMPREHENSIVE PANEL WAS CANCELLED, 09/18/2022 16:25 [facility] Performed By: #### C MP #### [address] [place] [address] BILIRUBIN,TOTAL Canceled Normal [facility] [place] Comment on above: Order Comment: TEST COMPREHENSIVE PANEL WAS CANCELLED, 09/18/2022 16:25 [facility] Performed By: #### C MP #### [address] [place] [address] CALCIUM Canceled Normal [facility] [place] Comment on above: Order Comment: TEST COMPREHENSIVE PANEL WAS CANCELLED, 09/18/2022 16:25 [facility] Performed By: #### C MP #### [address] [place] [address] CHLORIDE Canceled Normal [facility] [place] Comment on above: Order Comment: TEST COMPREHENSIVE PANEL WAS CANCELLED, 09/18/2022 16:25 [facility] Performed By: #### C MP #### [address] [place] [address] CREATININE Canceled [facility] [place] on above: Order Comment: TEST COMPREHENSIVE PANEL WAS CANCELLED, 09/18/2022 16:25 [facility] Performed By: #### C MP #### [address] [place] [address] eGFR FEMALE Canceled Normal [facility] [place] Comment on above: Order Comment: TEST COMPREHENSIVE PANEL WAS CANCELLED, 09/18/2022 16:25 [facility]. Result Comment: CALC ULATIONS OF ESTIMATED GFR ARE PERFORMED USING THE 2020 CKD-EPI STUDY REFIT EQUATION WITHOUT THE RACE VARIABLE FOR THE IDMS-TRACEABLE CREATININE METHODS. https://jasn.asnjournals.org/content/early/ASN.66158 42699 Performed By: #### C MP #### [address] [place] [address] eGFR MALE Canceled Normal [facility] [place] Comment on above: Order Comment: TEST COMPREHENSIVE PANEL WAS CANCELLED, 09/18/2022 16:25 [facility]. Result Comment: CALC ULATIONS OF ESTIMATED GFR ARE PERFORMED USING THE 2020 CKD-EPI STUDY REFIT EQUATION WITHOUT THE RACE VARIABLE FOR THE IDMS-TRACEABLE CREATININE METHODS. https://jasn.asnjournals.org/content/early/ASN.15335 38162 Performed By: #### C MP #### [address] [place] [address] GLUCOSE Canceled Normal [facility] Comment on above: Order Comment: TEST COMPREHENSIVE PANEL WAS CANCELLED, 09/18/2022 16:25 [facility] Performed By: #### C MP #### [address] [place] [address] POTASSIUM Canceled Normal [facility] Comment on above: Order Comment: TEST COMPREHENSIVE PANEL WAS CANCELLED, 09/18/2022 16:25 [facility]ICATE [facility]ONE [facility]. Performed By: #### C MP #### [address] [place] [address] SODIUM Canceled Normal [facility] Comment on above: Order Comment: TEST COMPREHENSIVE PANEL WAS CANCELLED, 09/18/2022 16:25 [facility]ATE [facility]. Performed By: #### C MP #### [address] [place] [address] TOTAL PROTEIN Canceled Normal [facility] Comment on above: Order Comment: TEST COMPREHENSIVE PANEL WAS CANCELLED, 09/18/2022 16:25 [facility] Performed By: #### C MP #### [address] [place] [address] UREA NITROGEN Canceled Normal [facility] Comment on above: Order Comment: TEST COMPREHENSIVE PANEL WAS CANCELLED, 09/18/2022 16:25 [facility]ICATE DONE [facility]. Performed By: #### C MP #### [place] [id number] [place] [address] Albumin [Mass/Vol] 4.3 g/dL Normal 3.4 - 5.0 [facility] [place] on above: Performed By: #### C MP #### [address] [place] [address] ALP [Catalytic activity/Vol] 68 U/L Normal 33 - 136 [facility] [place] Comment on above: Performed By: #### C MP #### [address] [place] [address] ALT [Catalytic activity/Vol] 42 U/L Normal 10 - 52 [facility] [place] Comment on above: Result Comment: Svetlana ents treated with Sulfasalazine may generate falsely decreased results for ALT. Performed By: #### C MP #### [address] [place] [address] Anion gap [Moles/Vol] 14 mmol/L Normal 10 - 20 [facility] [place] Comment on above: Performed By: #### C MP #### [address] [place] [address] AST [Catalytic activity/Vol] 27 U/L Normal 9 - 39 [facility] [place] Comment on above: Performed By: #### C MP #### [address] [place] [address] Bilirubin [Mass/Vol] 0.4 mg/dL Normal 0.0 - 1.2 [facility] [place] Comment on above: Performed By: #### C MP #### [address] [place] [address] Calcium [Mass/Vol] 9.8 mg/dL Normal 8.6 - 10.3 [facility] [place] on above: Performed By: #### C MP #### [address] [place] [address] Chloride [Moles/Vol] 103 mmol/L Normal 98 - 107 [facility] [place] Comment on above: Performed By: #### C MP #### [address] [place] [address] Creatinine [Mass/Vol] 1.68 mg/dL High 0.50 - 1.30 [facility] Comment on above: Performed By: #### C MP #### [address] [place] [address] GFR/1.73 sq M.predicted among non-blacks MDRD (S/P/Bld) [Vol rate/Area] 46 mL/min/{1.73_m2} Abnormal >90 [facility] [place] Comment on above: Result Comment: CALC ULATIONS OF ESTIMATED GFR ARE PERFORMED USING THE 2020 CKD-EPI STUDY REFIT EQUATION WITHOUT THE RACE VARIABLE FOR THE IDMS-TRACEABLE CREATININE METHODS. https://jasn.asnjournals.org/content/early//ASN.24372 07360 Performed By: #### C MP #### [address] [place] [address] Glucose [Mass/Vol] 190 mg/dL High 74 - 99 [facility] [place] on above: Performed By: #### C MP #### [address] [place] [address] HCO3 (Bld) [Moles/Vol] 26 mmol/L Normal 21 - 32 [facility] [place] Comment on above: Performed By: #### C MP #### [address] [place] [address] Potassium [Moles/Vol] 4.7 mmol/L Normal 3.5 - 5.3 [facility] [place] Comment on above: Performed By: #### C MP #### [address] [place] [address] Protein [Mass/Vol] 7.2 g/dL Normal 6.4 - 8.2 [facility] [place] on above: Performed By: #### C MP #### [address] [place] [address] Sodium [Moles/Vol] 138 mmol/L Normal 136 - 145 [facility] [place] on above: Performed By: #### C MP #### [facility] [address] [place] [address] Urea nitrogen [Mass/Vol] 38 mg/dL High 6 - [facility] Comment on above: Performed By: #### C MP #### [address] [place] [address] Complete Blood Count + Diffe rentialon 09-18-2022 Basophils/100 WBC (Bld) 0.3 % 0.0 - 2.0 [facility] DO Work Phone: Erythrocyte distribution width (RBC) [Ratio] 13.0 % See Below [facility] DO Work Phone: Comment on above: Reference Range: 11. 5 - 14.5 Hematocrit (Bld) [Volume fraction] 37.2 % below low threshold See Below [facility] DO Work Phone: Comment on above: Reference Range: 41. 0 - 52.0 Hemoglobin (Bld) [Mass/Vol] 12.6 g/dL below low threshold See Below [facility] DO Work Phone: Comment on above: Reference Range: 13. 5 - 17.5 Lymphocytes/100 WBC (Bld) 34.9 % See Below [facility] DO Work Phone: Comment on above: Reference Range: 13. 0 - 44.0 MCHC (RBC) [Mass/Vol] 33.9 g/dL See Below [facility] DO Work Phone: Comment on above: Reference Range: 32. 0 - 36.0 MCV (RBC) [Entitic vol] 94 fL 80 - 100 [facility] DO Work Phone: Monocytes/100 WBC (Bld) 7.3 % 2.0 - 10.0 [facility] DO Work Phone: Neutrophils/100 WBC (Bld) 52.8 % See Below [facility] DO Work Phone: Comment on above: Reference Range: 40. 0 - 80.0 Platelets (Bld) [#/Vol] 286 10*3/uL 150 - 450 [facility] DO Work Phone: RBC (Bld) [#/Vol] 3.95 {x10E12/L} below low threshold See Below [facility] DO Work Phone: Comment on above: Reference Range: 4.5 0 - 5.90 WBC (Bld) [#/Vol] 14.5 10*3/uL above high threshold 4.4 - 11.3 [facility] DO Work Phone: Complete Blood Count + Differential 0.05 {x10E9/L} See Below [facility] DO Work Phone: Comment on above: Reference Range: 0.0 0 - 0.10 Complete Blood Count + Differential 0.66 {x10E9/L} See Below [facility] DO Work Phone: Comment on above: Reference Range: 0.0 0 - 0.70 Complete Blood Count + Differential 1.06 {x10E9/L} above high threshold See Below [facility] [facility] Work Phone: Comment on above: Reference Range: 0.1 0 - 1.00 Complete Blood Count + Differential 5.07 {x10E9/L} above high threshold See Below [facility] DO Work Phone: Comment on above: Reference Range: 1.2 0 - 4.80 Complete Blood Count + Differential 7.64 {x10E9/L} See Below [facility] DO Work Phone: Comment on above: Reference Range: 1.2 0 - 7.70 Complete Blood Count + Differential 4.5 % 0.0 - 6.0 [facility] DO Work Phone: Complete Blood Count + Differential 0.2 % 0.0 - 0.9 [facility] DO Work Phone: Comment on above: Immature Granulocyte Count (IG) includes promyelocytes, myelocytes and metamyelocytes but does not include bands. Percent differential counts (%) should be interpreted in the context of the absolute cell counts (cells/L). FERRITINon 09-18-2022 FERRITIN 150 ug/L Normal 20 - 300 [facility] [place] Comment on above: Performed By: #### F ERRI #### [address] [place] [address] Ferritin, Serumon 09-18-2022 Ferritin [Mass/Vol] 150 ug/L 20 - 300 [facility] DO Work Phone: Hemoglobin A1Con 09-18-2022 Glucose [Mass/Vol] 214 mg/dL [facility] DO Work Phone: HbA1c (Bld) [Mass fraction] 9.1 % Abnormal [facility] DO Work Phone: Comment on above: Diagnosis of Diabete s-Adults Non-Diabetic: < or = 5.6% Increased risk for developing diabetes: 5.7-6.4% Diagnostic of diabetes: > or = 6.5%. Monitoring of Diabetes Age (y) Therapeutic Goal (%) Adults: >18 <7.0 Pediatrics: 13-18 <7.5 7-12 <8.0 0- 6 7.5-8.5 [place] [employer]. Diabetes Care 33(S1), Feb 2009. IRON + TIBCon 09-18-2022 % SATURATION 34 % Normal 25 - 45 [facility] [place] Comment on above: Performed By: #### I RONT #### [address] [place] [address] Iron [Mass/Vol] 107 ug/dL Normal 35 - 150 [facility] [place] Comment on above: Performed By: #### I WALLY #### [facility] [address] [place] [address] TIBC 315 ug/dL Normal 240 - 445 [facility] [place] Comment on above: Performed By: #### I WALLY #### [facility] [address] [place] [address] Laboratory - Chemistry and C hemistry - challengeon 09-18-2022 Albumin BCP dye [Mass/Vol] Canceled [facility] DO Work Phone: ALP [Catalytic activity/Vol] Canceled [facility] DO Work Phone: ALT With P-5'-P [Catalytic activity/Vol] Canceled [facility] DO Work Phone: Comment on above: Patients treated wit h Sulfasalazine may generate falsely decreased results for ALT. AST With P-5'-P [Catalytic activity/Vol] Canceled [facility] DO Work Phone: Bilirubin [Mass/Vol] Canceled [facility] DO Work Phone: Calcium [Mass/Vol] Canceled [facility] DO Work Phone: Chloride [Moles/Vol] Canceled - [facility] DO Work Phone: CO2 [Moles/Vol] Canceled [facility] DO Work Phone: Creatinine [Mass/Vol] Canceled [facility] DO Work Phone: Glucose [Mass/Vol] Canceled [facility] DO Work Phone: Potassium [Moles/Vol] Canceled [facility] DO Work Phone: Protein [Mass/Vol] Canceled [facility] DO Work Phone: Sodium [Moles/Vol] Canceled [facility] DO Work Phone: Urea nitrogen [Mass/Vol] Canceled [facility] DO Work Phone: Albumin BCP dye [Mass/Vol] 4.3 g/dL 3.4 - 5.0 [facility] DO Work Phone: ALP [Catalytic activity/Vol] 68 U/L 33 - 136 [facility] DO Work Phone: ALT With P-5'-P [Catalytic activity/Vol] 42 U/L 10 - 52 [facility] DO Work Phone: Comment on above: Patients treated wit h Sulfasalazine may generate falsely decreased results for ALT. Anion gap [Moles/Vol] 14 mmol/L 10 - 20 [facility] DO Work Phone: AST With P-5'-P [Catalytic activity/Vol] 27 U/L 9 - 39 [facility] DO Work Phone: Bilirubin [Mass/Vol] 0.4 mg/dL 0.0 - 1.2 -[facility] DO Work Phone: Calcium [Mass/Vol] 9.8 mg/dL 8.6 - 10.3 [facility] DO Work Phone: Chloride [Moles/Vol] 103 mmol/L 98 - 107 -[facility] DO Work Phone: CO2 [Moles/Vol] 26 mmol/L 21 - 32 [facility] DO Work Phone: Creatinine [Mass/Vol] 1.68 mg/dL above high threshold See Below [facility] DO Work Phone: Comment on above: Reference Range: 0.5 0 - 1.30 Glucose [Mass/Vol] 190 mg/dL above high threshold 74 - 99 [facility] DO Work Phone: Iron [Mass/Vol] 107 ug/dL 35 - 150 [facility] DO Work Phone: Iron binding capacity [Mass/Vol] 315 ug/dL 240 - 445 [facility] DO Work Phone: Potassium [Moles/Vol] 4.7 mmol/L 3.5 - 5.3 [facility] DO Work Phone: Protein [Mass/Vol] 7.2 g/dL 6.4 - 8.2 [facility] DO Work Phone: Sodium [Moles/Vol] 138 mmol/L 136 - 145 [facility] DO Work Phone: Urea nitrogen [Mass/Vol] 38 mg/dL above high threshold 6 - 23 [facility] DO Work Phone: No Panel Informationon 09-18 Canceled [facility] DO Work Phone: Comment on above: CALCULATIONS OF CHARLES MATED GFR ARE PERFORMED USING THE 2020 CKD-EPI STUDY REFIT EQUATION WITHOUT THE RACE VARIABLE FOR THE IDMS-TRACEABLE CREATININE METHODS.https://jasn.asnjournals.org/content//A SN.3747856631 34 % 25 - 45 [facility] DO Work Phone: 46 {mL/min/1.73m2} Abnormal >90 [facility] [employer] Work Phone: Comment on above: CALCULATIONS OF CHARLES MATED GFR ARE PERFORMED USING THE 2020 CKD-EPI STUDY REFIT EQUATION WITHOUT THE RACE VARIABLE FOR THE [facility]-TRACEABLE CREATININE METHODS.https://jasn.asnjournals.org/content//A SN.6187899664 Tobacco Screening.on 023 Adult depression screening assessment No [facility] [employer] Work Phone: Fall risk assessment a) No falls within the last year [facility] [employer] Work Phone: Tobacco use status CPHS b) No [facility] [employer] Work Phone: Prostate Spec.Ag, Screenon 0 06-26-2022 Prostate specific Ag [Mass/Vol] 2.45 ng/mL See Below [facility] [employer] Work Phone: Comment on above: Reference Range: 0.0 0 - 4.00The FDA requires that the method used for PSA assay be reported to the physician. Values obtained with different assay methods must not be used interchangeably. This test was performed at [facility] using the [employer]. PSA method, which is a sandwich immunoassay using chemiluminescence for quantitation. The assay is approvedfor measurement of prostate-specific antigen (PSA) in serum and may be used in conjunction with a digital rectalexamination in men 50 years and older as an aid in detection of prostate cancer. 7-Rhdbj-ekpesfxvd inhibitors (e.g. Proscar, Finasteride, Avodart, Dutasteride and [place]) for the treatment of BPH have been shown to lower PSA levels by an average of 50% after 6 months of treatment. Laboratory - Molecular patho logyon 12-31-2021 Noninvasive colorectal cancer DNA and occult blood screening Edson (Stl) [Interp] Negative Negative [facility] [employer] Work Phone: Comment on above: [employer] (CLIA #:[id number])[address] [place] [address] FRANCISCO TA , Clinical Laboratory Medical DirectorNEGATIVE [...] screened with both Cologuard and colonoscopy. (Kb Gomez. et al, N Engl J Med 2014;370(14):2066-5622) The normal value (reference range) for this assay is negative.COLOGUARD RE-SCREENING RECOMMENDATION: Periodic colorectal cancer screening is an important part of preventive healthcare for asymptomatic individuals at average risk for colorectal cancer. Following a negative Cologuard result, the [place] [employer] and U.S. Multi-Society Task Force screening guidelines recommend a Cologuard re-screening interval of 3 years. References: [place] [employer] Guideline for Colorectal Cancer Screening: https://www.cancer.org/cancer/kntya-tnnxzm-rwrvyf/detection-robbi gnosis-staging/acs-recommendations.html.; Wing BURGOS, Sal ECKERT, Kisha BealK, Colorectal Cancer Screening: Recommendations for Physicians and Patients from the U.S. Multi-Society Task Force on Colorectal Cancer Screening , Am J Gastroenterology 2017; 112:4808-8985.TEST DESCRIPTION: Composite algorithmic analysis of stool DNA-biomarkers [...] (Kb Hinds al, N Engl J Med 2014;370(14):9022-3747.) Cologuard may produce a false negative or false positive result (no colorectal cancer or precancerous polyp present at colonoscopy follow up). A negative Cologuard test result does not guarantee the absence of CRC or advanced adenoma (pre-cancer). The current Cologuard screening interval is every 3 years. ([place] [employer] and U.S. Multi-Society Task Force). Cologuard performance data in a 10,000 patient pivotal study using colonoscopy as the reference method can be accessed at the following location: www.Tip or Skip/results. Additional description of the Cologuard test process, warnings and precautions can be found at www.cologuard.com. Follow Up (Endocrinology)on 12-26-2021 Follow Up (Endocrinology) Diagnoses/Problems Assessed Diabetes mellitus, type 2 (250.00) (E11.9) Hyperlipidemia (272.4) (E78.5) Benign essential hypertension (401.1) (I10) Orders Diabetes mellitus, type 2 IO glucose, blood, finger stick via hand held monitor; Status:Complete; Done: 26Dec2021 04:28PM Performed:In Office; Due:20Tpl2030; Last Updated By:Nadya Parada; 12/26/2021 4:28:58 PM;Ordered; For:Diabetes mellitus, type 2; Ordered By:Rudi Abdi; IO Hgb A1C; Status:Complete; Done: 26Dec2021 04:29PM Performed:In Office; Due:01Cnh9887; Last Updated By:Nadya Parada; 12/26/2021 4:30:29 PM;Ordered; [...] HbA1c (Bld) [Mass fraction] 7.5 % 4.2-6.5% [employer] Work Phone: IO glucose, blood, finger st ick via hand held monitoron 12-26-2021 Glucose [Mass/Vol] 152 mg/dL [employer] Work Phone: Tobacco Screening.on 022 Adult depression screening assessment No [employer] Work Phone: Fall risk assessment a) No falls within the last year [employer] Work Phone: Tobacco use status CPHS b) No [employer] Work Phone: ALBUMIN, URINE SPOTon 2021 ALBUMIN,URINE 8.6 mg/L Normal Not Established [facility] [place] Comment on above: Performed By: #### A LBSP #### [facility] [address] [place] [address] ALBUMIN/CREAT RATIO 6.1 ug/mg prescriptionist Normal 0.0 - 30.0 [facility] Comment on above: Performed By: #### A LBSP #### [facility] [address] [place] [address] CREATININE,URINE 140.0 mg/dL Normal 20.0 - 370.0 [facility] Comment on above: Performed By: #### A LBSP #### [facility] [address] [place] [address] Laboratory - Chemistry and C hemistry - challengeon 12-20-2021 Albumin Ql (U) 8.6 mg/L See Below [employer] Work Phone: Comment on above: Reference Range: Not Established Albumin/Creatinine DL <= 20 mg/L (U) [Mass ratio] 6.1 {ug/mg_crt} 0.0 - 30.0 [employer] Work Phone: Creatinine (U) [Mass/Vol] 140.0 mg/dL See Below [employer] Work Phone: Comment on above: Reference Range: 20. 0 - 370.0 HM 50+ Yearson 12-06-2021 HM 50+ Years Diagnoses/Problems Assessed Class 2 obesity [...] Services - Lab To Draw (Blood Test); Due:91Iby1819;Ordered; For:Screening PSA (prostate specific antigen); Ordered By:Phillip [...] alcohol. Patient presenting wellness exam. 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 We will get the PSA after the [...] with above as is 5. Diabetes per cafe server questions concerns addressed proceed from there 'Scores and Scales' PHQ-9 [id number] 03:56PM PHQ-9 #10. If you checked off [...] Screening.on 022 Adult depression screening assessment No [employer] Work Phone: Fall risk assessment a) No falls within the last year [employer] Work Phone: Tobacco use status CPHS b) No [employer] Work Phone: Follow Up (Endocrinology)on 09-05-2021 Follow Up (Endocrinology) Diagnoses/Problems Assessed Diabetes mellitus, type 2 (250.00) (E11.9) Hyperlipidemia (272.4) (E78.5) Benign essential hypertension (401.1) (I10) Orders Diabetes mellitus, type 2 Albumin, Urine Spot; Status:Active; Requested for:34Fnp5066; Perform:Lab Services - Lab To Draw (Non-Blood Test); Due:28Hko6406;Ordered; For:Diabetes mellitus, type 2; Ordered By:Rudi Abdi; [...] HbA1c (Bld) [Mass fraction] 7.8 % 4.2-6.5% [employer] Work Phone: IO glucose, blood, finger st ick via hand held monitoron 09-05-2021 Glucose [Mass/Vol] 97 mg/dL [employer] Work Phone: Tobacco Screening.on 022 Adult depression screening assessment No [employer] Work Phone: Fall risk assessment a) No falls within the last year [employer] Work Phone: Tobacco use status CPHS b) No [employer] Work Phone: Tobacco Screening. Yes [employer] Work Phone: Office Visit (Family Melany johnson)on [...] fruits and vegetables. You may; Status:Complete; Done: [id number] Unlinked Stop: Aspirin 81 MG TABS Chief [...] history of kidney stones. Is followed by cafe server increase hemoglobin A1c noted PSA within normal [...] proceed from there. 'Scores and Scales' PHQ-9 [id number] 03:56PM PHQ-9 #10. If you checked off [...] of Chronic (more content not included)... Normal [employer] Tobacco Screening.on 022 Adult depression screening assessment No [facility] DO Work Phone: Fall risk assessment a) No falls within the last year [facility] [employer] Work Phone: Tobacco use status CPHS b) No [facility] DO Work Phone: Prostate Spec.Ag, Screenon 0 06-18-2021 Prostate specific Ag [Mass/Vol] 2.90 ng/mL See Below [facility] [employer] Work Phone: Comment on above: Reference Range: 0.0 0 - 4.00The FDA requires that the method used for PSA assay be reported to the physician. Values obtained with different assay methods must not be used interchangeably. This test was performed at [facility] using the [employer]. PSA method, which is a sandwich immunoassay using chemiluminescence for quantitation. The assay is approvedfor measurement of prostate-specific antigen (PSA) in serum and may be used in conjunction with a digital rectalexamination in men 50 years and older as an aid in detection of prostate cancer. 1-Zonmk-ufphzdjyf inhibitors (e.g. Proscar, Finasteride, Avodart, Dutasteride and [...] 2; BASIM = N; Verified Transmission to [employer]; Last Updated By: [employer]; 05/23/2021 4:27:29 PM SocHx: Never a smoker [...] HbA1c (Bld) [Mass fraction] 7.9 % 4.2-6.5% [employer] Work Phone: IO glucose, blood, finger st ick via hand held monitoron 05-23-2021 Glucose [Mass/Vol] 130 mg/dL [employer] Work Phone: Tobacco Screening.on 022 Adult depression screening assessment No [employer] Work Phone: Fall risk assessment a) No falls within the last year [employer] Work Phone: Tobacco use status CPHS b) No [employer] Work Phone: Established Visit (Orthopaed ic Surgery)on 04-13-2021 [...] Ludwig's portion of this dictation. In a cekp-[id number] encounter, I performed a history and physical [...] we may consider an MRI. 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 [place] of 2020 he had the worst flareup [...] of ar (more content not included)... Normal [employer] No Panel Informationon 03-02 Normal -[facility] Work Phone: SPINE, LUMBOSACRAL MIN 4 VIE WSon 03-02-2021 SPINE, LUMBOSACRAL MIN 4 VIEWS Patient Name: JEFFERSON CARCAMO STUDY: SPINE, LUMBOSACRAL MIN 4 VIEWS; ; 03/02/2021 4:22 pm INDICATION: pain M54.50: Low back pain. ACCESSION NUMBER(S): [id number] ORDERING CLINICIAN: MARCO LUDWIG FINDINGS: AP lateral [...] Electronically signed by: MARCO LUDWIG MD Normal [facility] Tobacco Screening.on Fall risk assessment a) No falls within the last year -[facility] DO Work Phone: Tobacco use status CPHS b) No -[facility] DO Work Phone: Tobacco Screening. 0-Not at all [facility] DO Work Phone: IO Hgb A1Con 11-22-2020 HbA1c (Bld) [Mass fraction] 7.9 % 4.4-6.4% [employer] Work Phone: IO glucose, blood, finger st ick via hand held monitoron 11-22-2020 Glucose [Mass/Vol] 164 mg/dL [facility] [employer] Work Phone: Tobacco Screening.on Fall risk assessment a) No falls within the last year [employer] Work Phone: Tobacco use status CPHS b) No [employer] Work Phone: Outside Radiology Readon Outside Radiology Read This is a prelimi nary report only. This report will be final only after practitioner review and authentication has occurred. NAME: JEFFERSON CARCAMO MR#: [id number] DATE OF STUDY: 04/19/2020 RADIOLOGY REASON FOR [...] post left total hip replacement. MD ELIANA OLEARY/MODL/[id number] [address] [place] PT NAME: JEFFERSON CARCAMO MR#: [id number] [address] [place] [address] ACCT: [id number] : 64 DOWNTIME RADIOLGY REPORT ADM DATE: Normal [facility] Anesthesia Noteon 03-24-2020 Anesthesia Note [facility] Patient: JEFFERSON CARCAMO [address] [place], [place] [id number] MR#: [id number] ANESTHESIA NOTE : Service Date: 03/24/20 0806 [...] Electronically Signed eSign Date and Time ClarenceKayleigh ENVIRONMENTAL PROGRAMS SPECIALIST-ENROUTE CONTROLLER 03/24/20 0807 Ariel De La Garza MD Normal [facility] BASIC MET PANELon 03-24-2020 Anion gap [Moles/Vol] 10 mmol/L Normal 6-18 [facility] Comment on above: Order Comment: CONSE RVATION Performed By: #### L 500.04172, L500.47742, L500.38539 ####Test performed at: [address] [address] Calcium [Mass/Vol] 8.2 mg/dL Low 8.5-10.1 [facility] Comment on above: Order Comment: CONSE RVATION Performed By: #### L 500.72814, L500.15051, L500.96549 ####Test performed at: [address] [address] Chloride [Moles/Vol] 103 mmol/L Normal 98-107 [facility] Comment on above: Order Comment: CONSE RVATION Performed By: #### L 500.25652, L500.62129, L500.43265 ####Test performed at: [address] [address] CO2 [Moles/Vol] 29 mmol/L Normal 21-32 [facility] Comment on above: Order Comment: CONSE RVATION Performed By: #### L 500.53704, L500.20809, L500.33845 ####Test performed at: [address] [address] Creatinine [Mass/Vol] 1.380 mg/dL High 0.700-1.300 [facility] Comment on above: Order Comment: CONSE RVATION Performed By: #### L 500.63683, L500.94136, L500.44945 ####Test performed at: [address] [address] Glucose [Mass/Vol] 119 mg/dL High 70-99 [facility] Comment on above: Order Comment: CONSE RVATION Result Comment: Fast ing GLUCOSE reference range has been updated per (ADA) [place] [employer]'s recommendation. 05/12/2018 Performed By: #### L 500.46244, L500.20613, L500.63290 ####Test performed at: [address] [address] OSM 289 mosm/kg Normal 270-300 [facility] Comment on above: Order Comment: CONSE RVATION Performed By: #### L 500.55680, L500.85211, L500.16965 ####Test performed at: [address] [address] Potassium [Moles/Vol] 4.7 mmol/L Normal 3.5-5.1 [facility] Comment on above: Order Comment: CONSE RVATION Performed By: #### L 500.55821, L500.33193, L500.14375 ####Test performed at: [address] [address] Sodium [Moles/Vol] 137 mmol/L Normal 136-145 [facility] Comment on above: Order Comment: CONSE RVATION Performed By: #### L 500.81630, L500.44316, L500.64507 ####Test performed at: [address] [address] Urea nitrogen [Mass/Vol] 24 mg/dL High 7-18 [facility] Comment on above: Order Comment: CONSE RVATION Performed By: #### L 500.21503, L500.80065, L500.99691 ####Test performed at: [address] [address] CBC W/DIFFon 03-24-2020 Erythrocyte distribution width (RBC) [Ratio] 12.7 % Normal 11.5-14.5 [facility] Comment on above: Order Comment: Comme nts To Phleb: pre-op in PAT Performed By: #### L 200.63539 #### Test performed at: [address] [address] Hematocrit (Bld) [Volume fraction] 33.1 % Low 39.0-55.0 [facility] Comment on above: Order Comment: Comme nts To Phleb: pre-op in PAT Performed By: #### L 200.49996 #### Test performed at: [address] [address] Hemoglobin (Bld) [Mass/Vol] 11.0 g/dL Low 14.0-16.5 [facility] Comment on above: Order Comment: Comme nts To Phleb: pre-op in PAT Performed By: #### L 200.23047 #### Test performed at: [address] [address] MCH (RBC) [Entitic mass] 31.5 pg Normal 25.4-34.6 [facility] Comment on above: Order Comment: Comme nts To Phleb: pre-op in PAT Performed By: #### L 200.73643 #### Test performed at: [address] [address] MCHC (RBC) [Mass/Vol] 33.2 g/dL Normal 31.5-36.5 [facility] Comment on above: Order Comment: Comme nts To Phleb: pre-op in PAT Performed By: #### L 200.79396 #### Test performed at: [place] [id number] MCV (RBC) [Entitic vol] 94.8 fL Normal 80.0-100.0 [facility] Comment on above: Order Comment: Comme nts To Phleb: pre-op in PAT Performed By: #### L 200.68197 #### Test performed at: [address] [address] NRBC # 0.000 K/uL Normal 0-0.012 [facility] Comment on above: Order Comment: Comme nts To Phleb: pre-op in PAT Performed By: #### L 200.35073 #### Test performed at: [address] [address] NRBC % 0.0 /100 WBC Normal 0-0.2 [facility] Comment on above: Order Comment: Comme nts To Phleb: pre-op in PAT Performed By: #### L 200.03023 #### Test performed at: [address] [address] Platelet mean volume (Bld) [Entitic vol] 10.5 fL Normal 8.7-12.4 [facility] Comment on above: Order Comment: Comme nts To Phleb: pre-op in PAT Performed By: #### L 200.73991 #### Test performed at: [address] [address] Platelets (Bld) [#/Vol] 242 10*3/uL Normal 140-440 [facility] Comment on above: Order Comment: Comme nts To Phleb: pre-op in PAT Performed By: #### L 200.76394 #### Test performed at: [address] [address] RBC (Bld) [#/Vol] 3.49 10*6/uL Low 3.5-5.5 [facility] Comment on above: Order Comment: Comme nts To Phleb: pre-op in PAT Performed By: #### L 200.23149 #### Test performed at: [address] [address] WBC (Bld) [#/Vol] 18.8 10*3/uL High 3.9-11.0 [facility] Comment on above: Order Comment: Comme nts To Phleb: pre-op in PAT Performed By: #### L 200.46132 #### Test performed at: [address] [address] Erythrocyte distribution width (RBC) [Ratio] 12.6 % Normal 11.5-14.5 [facility] Comment on above: Order Comment: CONSE RVATION Performed By: #### L 200.62476, L200.95406 ####Test performed at: [address] [address] Hematocrit (Bld) [Volume fraction] 29.4 % Low 39.0-55.0 [facility] Comment on above: Order Comment: CONSE RVATION Performed By: #### L 200.09865, L200.39189 ####Test performed at: [address] [address] Hemoglobin (Bld) [Mass/Vol] 9.7 g/dL Low 14.0-16.5 [facility] Comment on above: Order Comment: CONSE RVATION Result Comment: Delt a: 13.5 on 01/26/20-152 Performed By: #### L 200.73668, L200.75850 ####Test performed at: [address] [address] MCH (RBC) [Entitic mass] 31.2 pg Normal 25.4-34.6 [facility] Comment on above: Order Comment: CONSE RVATION Performed By: #### L 200.48414, L200.57010 ####Test performed at: [address] [address] MCHC (RBC) [Mass/Vol] 33.0 g/dL Normal 31.5-36.5 [facility] Comment on above: Order Comment: CONSE RVATION Performed By: #### L 200.13326, L200.13630 ####Test performed at: [address] [address] MCV (RBC) [Entitic vol] 94.5 fL Normal 80.0-100.0 [facility] Comment on above: Order Comment: CONSE RVATION Performed By: #### L 200.49671, L200.95462 ####Test performed at: [address], [place] [address] NRBC # 0.000 K/uL Normal 0-0.012 [facility] Comment on above: Order Comment: CONSE RVATION Performed By: #### L 200.73939, L200.10406 ####Test performed at: [address] [address] NRBC % 0.0 /100 WBC Normal 0-0.2 [facility] Comment on above: Order Comment: CONSE RVATION Performed By: #### L 200.78140, L200.88652 ####Test performed at: [address] [address] Platelet mean volume (Bld) [Entitic vol] 10.6 fL Normal 8.7-12.4 [facility] Comment on above: Order Comment: CONSE RVATION Performed By: #### L 200.81147, L200.84794 ####Test performed at: [address] [address] Platelets (Bld) [#/Vol] 210 10*3/uL Normal 140-440 [facility] Comment on above: Order Comment: CONSE RVATION Performed By: #### L 200.82594, L200.15743 ####Test performed at: [address] [address] RBC (Bld) [#/Vol] 3.11 10*6/uL Low 3.5-5.5 [facility] Comment on above: Order Comment: CONSE RVATION Performed By: #### L 200.16437, L200.38447 ####Test performed at: [address] [address] WBC (Bld) [#/Vol] 16.9 10*3/uL High 3.9-11.0 [facility] Comment on above: Order Comment: CONSE RVATION Performed By: #### L 200.95973, L200.12181 ####Test performed at: [address] [address] EST. CREAT CLRon 03-24-2020 Creatinine [Mass/Vol] 95.229 ML/MIN Normal [facility] Comment on above: Order Comment: Comme nts To Phleb: pre-op in PAT Result Comment: This result is an ESTIMATED blood creatinine clearance value which is derived from the patient age, sex, weight, and previous blood creatinine result. Performed By: #### L 200.71425 #### Test performed at: [place] [address] GFR ESTIMATEon 03-24-2020 IF AMER > 60 Normal > 60 [facility] Comment on [...] for clinical interpretation. Performed By: #### L 200.71376 #### Test performed at: [place] [address] IF non-AFR AMER 53 Low > 60 [facility] Comment on above: Order Comment: Comme nts To Phleb: pre-op in PAT Performed By: #### L 200.17595 #### Test performed at: [place] [id number] GLUCOSE METERon 03-24-2020 Glucose [Mass/Vol] 262 mg/dL High 70-99 [facility] Comment on above: Order Comment: Comme nts To Phleb: pre-op in PAT Result Comment: Fast ing GLUCOSE reference range has been updated per (ADA) [place] [employer]'s recommendation. 05/12/2018 Performed By: #### L 200.85088 #### Test performed at: [place] [address] Glucose [Mass/Vol] 146 mg/dL High 70-99 [facility] Comment on above: Order Comment: Comme nts To Phleb: pre-op in PAT Result Comment: Fast ing GLUCOSE reference range has been updated per (ADA) [place] [employer]'s recommendation. 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 Reasons/Tx for Con't stay Post-op Assessment #s/p Left total hip replacement- POD 1 - VSS - Denies any complaints - No drain or shin - Encourage incentive spirometry - PT/OT on board #Acute blood loss anemia - Hb 13.5 ->9.7 - EBL 310 cc intra-operatively - Continue to monitor #Leukocytosis possibly due to pre-op radiation - Afebrile - SIRS criteria 02/20 - WBC 16.9 ->18.8 with 19% ->12% bands - CXR showed no active disease - Ordered UA #Large granular leukemia under remission - As per patient senior risk analyst suggested monitoring only #h/o DVT - Denies [...] RES, Katarzyn a MD 03/26/20 1229 Normal [facility] MANUAL DIFFon 03-24-2020 BAND 12 % High 0-5 [facility] Comment on above: Order Comment: Comme nts To Phleb: pre-op in PAT Performed By: #### L 200.05578 #### Test performed at: [address] [address] Lymphocytes/100 WBC (Bld) 16 % Low 20-50 [facility] Comment on above: Order Comment: Comme nts To Phleb: pre-op in PAT Performed By: #### L 200.85479 #### Test performed at: [address] [address] MONOCYTE 6 % Normal 2-12 [facility] Comment on above: Order Comment: Comme nts To Phleb: pre-op in PAT Performed By: #### L 200.23310 #### Test performed at: [address] [address] NEUTROPHIL 66 % Normal 40-80 [facility] Comment on above: Order Comment: Comme nts To Phleb: pre-op in PAT Performed By: #### L 200.41938 #### Test performed at: [address] [address] Platelets (Bld) [#/Vol] ADEQ Normal [facility] Comment on above: Order Comment: Comme nts To Phleb: pre-op in PAT Performed By: #### L 200.20963 #### Test performed at: [address] [address] POLYCHROMASIA OCC Normal [facility] Comment on above: Order Comment: Comme nts To Phleb: pre-op in PAT Performed By: #### L 200.94226 #### Test performed at: [address] [address] RLYMPH OCC Normal [facility] Comment on above: Order Comment: Comme nts To Phleb: pre-op in PAT Performed By: #### L 200.09150 #### Test performed at: [address] [address] TOTAL CELLS 100 #CELLS Normal [facility] Comment on above: Order Comment: Comme nts To Phleb: pre-op in PAT Performed By: #### L 200.76288 #### Test performed at: [address] [address] BAND 19 % High 0-5 [facility] Comment on above: Order Comment: CONSE RVATION Performed By: #### L 200.00359, L200.16434 ####Test performed at: [address] [address] Basophils/100 WBC (Bld) 1 % Normal 0-1 [facility] Comment on above: Order Comment: CONSE RVATION Performed By: #### L 200.85424, L200.45629 ####Test performed at: [address] [address] Lymphocytes/100 WBC (Bld) 21 % Normal 20-50 [facility] Comment on above: Order Comment: CONSE RVATION Performed By: #### L 200.22226, L200.55853 ####Test performed at: [address] [address] MONOCYTE 6 % Normal 2-12 [facility] Comment on above: Order Comment: CONSE RVATION Performed By: #### L 200.60460, L200.33310 ####Test performed at: [address] [address] NEUTROPHIL 53 % Normal 40-80 [facility] Comment on above: Order Comment: CONSE RVATION Performed By: #### L 200.83483, L200.83725 ####Test performed at: [address] [address] Platelets (Bld) [#/Vol] ADEQ Normal [facility] Comment on above: Order Comment: CONSE RVATION Performed By: #### L 200.75814, L200.94674 ####Test performed at: [facility] [address] [place] [address] POLYCHROMASIA OCC Normal [facility] Comment on above: Order Comment: CONSE RVATION Performed By: #### L 200.52638, L200.72814 ####Test performed at: [facility] [address] [place] [address] TOTAL CELLS 100 #CELLS Normal [facility] Comment on above: Order Comment: CONSE RVATION Performed By: #### L 200.41882, L200.63386 ####Test performed at: [address] [address] OT Therapy Recommendationson 03-24-2020 OT Therapy Recommendations [facility] Patient: JEFFERSON CARCAMO [address] [place] [id number] MR#: [id number] OT THERAPY RECOMMENDATIONS : 64 Service Date: 03/24/20 1151 See Addendum Verdana 4d Therapy Recommendations Therapy Recommendations Recommendations HOME WITH FAMILY ASSISTANCE ADDENDUM: CRISTIANA COPPOLA on 03/24/20 at 1153 Addendum Add AND [facility] SERVICES Electronically Signed eSign Date and Time Cristiana Coppola OT 03/24/20 1153 Normal [facility] Orthopedic Progress Noteon 0 03-24-2020 Orthopedic Progress Note [facility] Patient: JEFFERSON CARCAMO [address] [place] [id number] MR#: [id number] PROGRESS NOTE - Orthopedic : 64 Service [...] 93 03/24 0953 Pulse Ox 100 03/24 0945 O2 Delivery ROOM AIR 03/24 944 Temp 36.4 03/24 0945 Resp 20 03/24 [...] needed Homegoing instructions given with good understanding. Questins answered to pt satisfaction Dr Huffman aware [...] 6. Anxiety Med Reasons/Tx for Con't stay hi home [facility] Assessment plan hi home [facility] pain medicaiton is dvt prophilaxis mobilize cryotherapy Electronically Signed eSign Date and Time SERGIO NGO 03/24/20 1237 Dinesh Huffman MD Normal [facility] PORTABLE CHESTon 03-24-2020 PORTABLE CHEST STUDY: PORTABLE CHEST; 03/24/2020 12:01 pm INDICATION: Leukocytosis. COMPARISON: 01/26/2020 ACCESSION NUMBER(S): [id number] ORDERING CLINICIAN: Mayur Leo FINDINGS: Unchanged blunting of the right costophrenic angle suggestive of scarring. Right pleural calcifications are again noted. No definite new infiltrate or pleural effusion. Unremarkable cardiomediastinal silhouette. No pulmonary vascular congestion. IMPRESSION: No new active disease in the chest. Normal [facility] Transfer From ([facility])on 03-24-2020 Transfer From ([facility]) From: [facility] Patient: JEFFERSON CARCAMO [address] [place] [id number] Birthdate: [birth year] Age: 59 Attending Physician: Dinesh [...] RESISTANT ORGANISM No Date of Influenza Vaccine 12910 Physician Orders Prescriptions/Discharg e Meds Continue taking [...] reflection of the individuals condition. HOME WITH [facility] Electronically Signed eSign Date and Time SERGIO NGO 03/24/20 1442 Dinesh Huffman MD Normal [facility] z OT Inpatient Evaluationon 03-24-2020 z OT Inpatient Evaluation [facility] Patient: JEFFERSON CARCAMO [address] [place] [address] MR#: [id number] OT INPATIENT EVALUATION : 64 Inpatient OT HPI Date of Service 03/24/20 Time In: 0845 Time Out: 0915 Total Treatment Time (Mins) 30 Visit Reason OTHER SECONDARY OA BOTH HIPS Surgery Type/Date POD#1Surgery Type: L ИВАН Anterior Approach Referral Date 03/23/20 Tx Diagnosis: PAIN IN L LEG Insurance Name [facility] Hospital Course Pt is a 59 [...] Toilet, Long Handled Sponge, Long Shoe Horn, Adoption Counselor, Shower Chair Bedroom Location 1st Floor Bathroom Location 1st Floor Shower Tub Tasks Prior to Admission Laundry, Cooking, Cleaning, Shopping, Driving Transportation Method Patient Drives, Family Drives Functional Level ELECTRICAL ASSISTANT PT WAS MODIND WITH ADLS AND IADLS. [...] ADLs and functional mobility tasks. Outcome Measures An Score Na Score Response Value Feeding Independent [...] Time Cristiana Coppola OT 03/24/20 1150 Normal [facility] z PT Inpatient Progress Note on 03-24-2020 z PT Inpatient Progress Note [facility] Patient: JEFFERSON CARCAMO [address] [place] [address] MR#: [id number] PT INPATIENT PROGRESS NOTE : 64 Service Date: 03/24/20 1401 Inpatient PT HPI Date of Service 03/24/20 Time In: 1005 Time Out: 1043 Total Treatment Time (Mins) 38 Room Number 618 Current Visit Patient is seated in the bedside chair upon arrival and pleasant. Patient is cleared for PT by nursing and identified by name and . Surgery Type: L ИАВН Anterior Approach Surgery Date: 03/23/20 Tx Diagnosis: [...] Signed eSign Date and Time Jaja Pizano ELECTRICAL ASSISTANT 03/24/20 1417 Adrian Andino PT Normal [facility] GLUCOSE METERon 03-23-2020 Glucose [Mass/Vol] 224 mg/dL High 70-99 [facility] Comment on above: Order Comment: CONSE RVATION Result Comment: Fast ing GLUCOSE reference range has been updated per (ADA) [place] [employer]'s recommendation. 05/12/2018 Performed By: #### L 500.17655 ####Test performed at: [address] [address] Glucose [Mass/Vol] 214 mg/dL High 70-99 [facility] Comment on above: Order Comment: CONSE RVATION Result Comment: Fast ing GLUCOSE reference range has been updated per (ADA) [place] [employer]'s recommendation. 05/12/2018 Performed By: #### L 500.58874 ####Test performed at: [place] [address] [place] [address] Glucose [Mass/Vol] 170 mg/dL High 70-99 [facility] Comment on above: Order Comment: CONSE RVATION Result Comment: Fast ing GLUCOSE reference range has been updated per (ADA) [place] [employer]'s recommendation. 05/12/2018 Performed By: #### L 500.52247 #### Test performed at: [address] [address] Internal Medicine Consultati onon 02-04-2021 Internal Medicine Consultation [facility] Patient: JEFFERSON CARCAMO [address] [place] [address] MR#: [id number] CONSULTATION - Internal Medicine : 64 Service [...] Entered as Reported by SANYA ZAMBRANO on 01/26/20 142 Last Action: Held on 03/23/20 161 by RAFFY AGGARWAL III Cholecalciferol (Vitamin D3) (Vitamin D3) 25 MCG (1,000 UNIT) CAPSULE 25 MCG PO DAILY, Ref 0 (Reported) Entered as Reported by SANYA ZAMBRANO on 01/26/201426 Last Action: Held on 03/23/20 161 by RAFFY AGGARWAL III Diclofenac Sodium * [...] 1017 B/P 134/74 03/23 1017 Temp 36.0 / 1017 Pulse 89 / 1017 Resp 16 03/23 1017 Appearance Appearance [...] III,Raffy Res 03/24/20 1247 Camille Jones MD [facility] OPERATIVE REPORTon OPERATIVE REPORT NAME: JEFFERSON CARCAMO MR#: [id number] SURGEON: Dinesh Huffman MD DATE OF SURGERY: 03/23/2020 OPERATIVE REPORT PREOPERATIVE DIAGNOSIS: Severe arthritic involvement, left hip joint. Patient with underlying ankylosing spondylitis. POSTOPERATIVE DIAGNOSIS: Severe arthritic involvement, left hip joint. Patient with underlying ankylosing spondylitis. OPERATION PERFORMED: Left total hip replacement, uncemented, direct anterior approach. LEAD SYSTEMS ENGINEER: Kelby Bishop. ANESTHESIA: General. FINDINGS: Patient is [...] osteopenic. Replacement was performed using components from [employer]. The 52 mm outer diameter shell was [...] anesthesia and patient positioned supine on the [place] table, the left hip was prepped and draped for total hip replacement through a direct anterior approach. A formal time-out was performed and agreed to by all parties. Once agreed to, the hip [facility] PT NAME: JEFFERSON CARCAMO MR#: [id number] [address] [place] [address] ACCT: [id number] : 64 OPERATIVE REPORT was approached starting [...] brought out of adduction and extension with [facility] PT NAME: JEFFRESON CARCAMO MR#: [id number] [address] [place] [address] ACCT: [id number] : 64 OPERATIVE REPORT traction and internal [...] room and he tolerated the procedure well. MD ELIANA OLEARY/KATHRYN/[id number] E/S: Dinesh Huffman MD 03/24/20 1033 Electronically Signed [facility] PT NAME: JEFFERSON CARCAMO MR#: [id number] [address] [place] [id number] ACCT: [id number] : 64 OPERATIVE REPORT Normal [facility] PELVIS 1 OR 2 VIEWSon 2020 PELVIS 1 OR 2 VIEWS STUDY: PELVIS 1 OR 2 VIEWS; 03/23/2020 4:35 pm INDICATION: S/P LEFT TOTAL HIP REPLACEMENT. COMPARISON: None. ACCESSION NUMBER(S): [id number] ORDERING CLINICIAN: Annie Aguilar FINDINGS: Left hip arthroplasty in anatomic alignment. Postoperative soft tissue gas. Upper pelvis not imaged. IMPRESSION: New left hip arthroplasty in anatomic alignment. Normal [facility] PT Therapy Recommendationson 03-23-2020 aPTT Coag (Bld) [Time] [facility] Patient: JEFFERSON CARCAMO [address] [place] [id number] MR#: [id number] PT THERAPY RECOMMENDATIONS : 64 Service Date: 03/23/20 1847 Therapy Recommendations Therapy Recommendations Recommendations Physical therapy evaluation completed. Will follow per acute PT plan of care BID, PRN. Rec D/C HHPT. VILMA Mendez Electronically Signed eSign Date and Time Antony Maynard PT Student 03/23/20 1847 Adrian Andino PT 03/23/20 1848 Normal [facility] Primary Residenton Primary Resident [facility] Pt Name: JEFFERSON CARCAMO MR#: [id number] [address] [place] [address] ACCT: [id number] [place] [address] : 64 Service Date: 03/23/20 1626 Primary Resident/Call Primary Resident: Ngoc Leo After Hours Call: [phone] Red Team Electronically Signed eSign Date and Time Aggarwal III,Raffy Res 03/23/20 1627 Normal [facility] SURGon 03-23-2020 SURG Normal [facility] Comment on above: Result Comment: RUN DATE: 03/28/20 [facility] LAB *LIVE* PAGE 1RUN TIME: 154 Specimen InquiryRUN USER: Yext Name: JEFFERSON CARCAMO : 64 Sex:M Attend Dr: Dinesh Huffman [facility]#: [id number] Unit#: [id number] Status: DIS IN Location: [address]01 Received: 03/24/20-3 Status: CLAUDIA Maude#: [id number]#: [id number] Collected: 03/23/20- [facility] Dr: Dinesh Huffman MDTISSUES: A. LEFT HIP BONE & TISSUE MICROSCOPIC EXAM: Two H&E stained slides including sections of decalcified tissue are examined. DIAGNOSIS: BONE AND TISSUE FROM LEFT HIP, TOTAL HIP REPLACEMENT: - DEGENERATIVE JOINT DISEASE Signed Signature on File TOMA STRINGER 03/28/20 0851 [facility] Name: JEFFERSON CARCAMO [facility] Hosp Num: [id number] A Ministry of Age / Sex: 59/M [facility] Physician: Dinesh Huffman MD [address] [place] [address] Location: SPINE/ORTHO UNIT END OF REPORT Performed By: #### L 500.85782, L500.73523 #### Test performed at: [place] [address] TSon 03-23-2020 ABO and Rh group Nom (Bld) A POSITIVE Normal [facility] Comment on above: Order Comment: CONSE RVATION CBN: NO [place]: MAIN Transfusion Status: CONSERVATION Blood Bank service requested: TYPE AND SCREEN Comments To Phleb: PATIENT IN SDS Performed By: #### B 100.0200 #### Test performed at: [place] [address] z PT Inpatient Evaluationon 03-23-2020 z PT Inpatient Evaluation [facility] Patient: JEFFERSON CARCAMO [address] [place] [address] MR#: [id number] PT INPATIENT EVALUATION : 64 Service Date: 03/23/20 182 Inpatient PT HPI Date of Service 03/23/20 Time In: 1809 Time Out: 1825 Total Treatment Time (Mins) 16 Room Number 618 Visit Reason OTHER SECONDARY OA BOTH HIPS Surgery Type: L ИВАН Anterior Approach Surgery Date: 03/23/20 Referral Date 03/23/20 Tx Diagnosis: UNSTEADINESS ON FEET Insurance Name [facility] Hospital Course Pt is a 59 [...] States ground level setup. 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 Objective Pain Pain Scale [...] sx) Endurance Fair Posture WFL, Pt is 5'11" and 251# Wound/Skin Dressing /c strikethrough, no [...] 1847 Adrian Andino PT 03/23/20 1850 Normal [facility] CORONAVIRUSon 03-20-2020 CORONAVIRUS Methodology: PCR Negative [...] on the FDA website: https://www.fda.gov/Me dicalDevices/Safety/ EmergencySituations/uc o094712.htm COVID-19 Negative for COVID-19 (SARS-CoV-2 RNA) Normal [facility] Comment on above: Order Comment: CBN: YES Lyons: MAIN COVID Testing: PRE-OP/PROCEDURE SCREEN Comment: 2/ AGE at Spec LIAM 59 Report age at specimen LIAM? Y First test: UNKNOWN Employed in Healthcare: NO Symptomatic as defined by CDC: NO Hospitalized for COVID-19? NO ICU: NO Resident in a Congregated Care Setting: NO Order Date: 03/20/20 : Not Performed By: #### M 400.06187 #### Test performed at: [place] [address] GLYCO HEMOon 01-27-2020 HbA1c (Bld) [Mass fraction] 6.9 % Normal [facility] Comment on above: Order Comment: Comme nts To Phleb: pre-op in PAT Result Comment: Gabrielle geller Diagnosis HbA1c (%) --------- Diabetic > 6.4 Prediabetes 5.7-6.4 Normal < 5.7 Performed By: #### L 500.41625 #### Test performed at: [address] [address] CBC W/DIFFon 01-26-2020 BASO ABS 0.1 K/uL Normal 0.0-0.2 [facility] Comment on above: Order Comment: Comme nts To Phleb: pre-op in PAT Performed By: #### L 200.73678 #### Test performed at: [address] [address] Basophils/100 WBC (Bld) 0.6 % Normal [facility] Comment on above: Order Comment: Comme nts To Phleb: pre-op in PAT Performed By: #### L 200.30942 #### Test performed at: [address] [address] EOS ABS 0.3 K/uL Normal 0.0-0.5 [facility] Comment on above: Order Comment: Comme nts To Phleb: pre-op in PAT Performed By: #### L 200.89966 #### Test performed at: [address] [address] Eosinophils/100 WBC (Bld) 2.4 % Normal [facility] Comment on above: Order Comment: Comme nts To Phleb: pre-op in PAT Performed By: #### L 200.48527 #### Test performed at: [address] [address] Erythrocyte distribution width (RBC) [Ratio] 12.8 % Normal 11.5-14.5 [facility] Comment on above: Order Comment: Comme nts To Phleb: pre-op in PAT Performed By: #### L 200.10471 #### Test performed at: [address] [address] Hematocrit (Bld) [Volume fraction] 40.5 % Normal 39.0-55.0 [facility] Comment on above: Order Comment: Comme nts To Phleb: pre-op in PAT Performed By: #### L 200.16592 #### Test performed at: [address] [address] Hemoglobin (Bld) [Mass/Vol] 13.5 g/dL Low 14.0-16.5 [facility] Comment on above: Order Comment: Comme nts To Phleb: pre-op in PAT Performed By: #### L 200.12510 #### Test performed at: [address] [address] IG % 0.3 % Normal [facility] Comment on above: Order Comment: Comme nts To Phleb: pre-op in PAT Performed By: #### L 200.18325 #### Test performed at: [address] [address] IG ABS 0.04 K/uL Normal 0-0.05 [facility] Comment on above: Order Comment: Comme nts To Phleb: pre-op in PAT Performed By: #### L 200.07392 #### Test performed at: [address] [address] Lymphocytes (Bld) [#/Vol] 3.6 10*3/uL High 1.2-3.5 [facility] Comment on above: Order Comment: Comme nts To Phleb: pre-op in PAT Performed By: #### L 200.09165 #### Test performed at: [address] [address] Lymphocytes/100 WBC (Bld) 25.6 % Normal [facility] Comment on above: Order Comment: Comme nts To Phleb: pre-op in PAT Performed By: #### L 200.61981 #### Test performed at: [address] [address] MCH (RBC) [Entitic mass] 31.5 pg Normal 25.4-34.6 [facility] Comment on above: Order Comment: Comme nts To Phleb: pre-op in PAT Performed By: #### L 200.81499 #### Test performed at: [address] [address] MCHC (RBC) [Mass/Vol] 33.3 g/dL Normal 31.5-36.5 [facility] Comment on above: Order Comment: Comme nts To Phleb: pre-op in PAT Performed By: #### L 200.46686 #### Test performed at: [address] [address] MCV (RBC) [Entitic vol] 94.6 fL Normal 80.0-100.0 [facility] Comment on above: Order Comment: Comme nts To Phleb: pre-op in PAT Performed By: #### L 200.72167 #### Test performed at: [address] [address] MONO ABS 1.1 K/uL High 0.0-1.0 [facility] Comment on above: Order Comment: Comme nts To Phleb: pre-op in PAT Performed By: #### L 200.35167 #### Test performed at: [address] [address] Monocytes/100 WBC (Bld) 8.1 % Normal [facility] Comment on above: Order Comment: Comme nts To Phleb: pre-op in PAT Performed By: #### L 200.24650 #### Test performed at: [address] [address] NEUTROPHIL ABS 8.8 K/uL High 1.4-6.6 [facility] Comment on above: Order Comment: Comme nts To Phleb: pre-op in PAT Performed By: #### L 200.94388 #### Test performed at: [address] [address] Neutrophils/100 WBC (Bld) 63.0 % Normal [facility] Comment on above: Order Comment: Comme nts To Phleb: pre-op in PAT Performed By: #### L 200.72194 #### Test performed at: [address] [address] NRBC # 0.000 K/uL Normal 0-0.012 [facility] Comment on above: Order Comment: Comme nts To Phleb: pre-op in PAT Performed By: #### L 200.76958 #### Test performed at: [address] [address] NRBC % 0.0 /100 WBC Normal 0-0.2 [facility] Comment on above: Order Comment: Comme nts To Phleb: pre-op in PAT Performed By: #### L 200.77821 #### Test performed at: [address] [address] Platelet mean volume (Bld) [Entitic vol] 10.3 fL Normal 8.7-12.4 [facility] Comment on above: Order Comment: Comme nts To Phleb: pre-op in PAT Performed By: #### L 200.82997 #### Test performed at: [address] [address] Platelets (Bld) [#/Vol] 302 10*3/uL Normal 140-440 [facility] Comment on above: Order Comment: Comme nts To Phleb: pre-op in PAT Performed By: #### L 200.95121 #### Test performed at: [address] [address] RBC (Bld) [#/Vol] 4.28 10*6/uL Normal 3.5-5.5 [facility] Comment on above: Order Comment: Comme nts To Phleb: pre-op in PAT Performed By: #### L 200.86270 #### Test performed at: [address] [address] WBC (Bld) [#/Vol] 13.9 10*3/uL High 3.9-11.0 [facility] Comment on above: Order Comment: Comme nts To Phleb: pre-op in PAT Performed By: #### L 200.46807 #### Test performed at: [place] [address] CHEST PA/AP & LATERAL OR 2 V WSon 01-26-2020 CHEST PA/AP & LATERAL OR 2 VWS STUDY: CHEST PA/AP LATERAL OR 2 VWS; 01/26/2020 3:40 pm INDICATION: pre-op in PAT per Surgeon request. COMPARISON: 08/11/2012 ACCESSION NUMBER(S): [id number] ORDERING CLINICIAN: Trisha Quiñones FINDINGS: Unchanged blunting of the right costophrenic angle relating to scarring given the chronicity. Right pleural calcifications are not significantly changed. No focal infiltrate. No apparent pleural effusion. Normal heart size, mediastinum, michelle, and pulmonary vasculature. Thoracic kyphosis with mild degenerative changes. IMPRESSION: No active disease in the chest. Chronic changes of the right lung similar prior exam. Normal [facility] COMP META PANELon 01-26-2020 Albumin [Mass/Vol] 3.9 g/dL Normal 3.4-5.0 [facility] Comment on above: Order Comment: Comme nts To Phleb: pre-op in PAT Performed By: #### L 500.93769, L500.00026 #### Test performed at: [address] [address] ALK PHOS TOTAL 95 U/L Normal 45-117 [facility] Comment on above: Order Comment: Comme nts To Phleb: pre-op in PAT Performed By: #### L 500.96890, L500.77095 #### Test performed at: [address] [address] ALT [Catalytic activity/Vol] 64 U/L High 13-61 [facility] Comment on above: Order Comment: Comme nts To Phleb: pre-op in PAT Performed By: #### L 500.50628, L500.28860 #### Test performed at: [address] [address] AST [Catalytic activity/Vol] 34 U/L Normal 15-37 [facility] Comment on above: Order Comment: Comme nts To Phleb: pre-op in PAT Performed By: #### L 500.87137, L500.53237 #### Test performed at: [address] [address] BILI TOTAL 0.6 mg/dL Normal 0.2-1.0 [facility] Comment on above: Order Comment: Comme nts To Phleb: pre-op in PAT Performed By: #### L 500.75797, L500.96728 #### Test performed at: [address] [address] Calcium [Mass/Vol] 9.3 mg/dL Normal 8.5-10.1 [facility] Comment on above: Order Comment: Comme nts To Phleb: pre-op in PAT Performed By: #### L 500.90837, L500.02609 #### Test performed at: [address] [address] Chloride [Moles/Vol] 107 mmol/L Normal 98-107 [facility] Comment on above: Order Comment: Comme nts To Phleb: pre-op in PAT Performed By: #### L 500.13921, L500.28218 #### Test performed at: [address] [address] CO2 [Moles/Vol] 28 mmol/L Normal 21-32 [facility] Comment on above: Order Comment: Comme nts To Phleb: pre-op in PAT Performed By: #### L 500.38764, L500.10179 #### Test performed at: [address] [address] Creatinine [Mass/Vol] 1.560 mg/dL High 0.700-1.300 [facility] Comment on above: Order Comment: Comme nts To Phleb: pre-op in PAT Performed By: #### L 500.62804, L500.79764 #### Test performed at: [address] [address] Glucose [Mass/Vol] 106 mg/dL High 70-99 [facility] Comment on above: Order Comment: Comme nts To Phleb: pre-op in PAT Result Comment: Fast ing GLUCOSE reference range has been updated per (ADA) [place] [employer]'s recommendation. 05/12/2018 Performed By: #### L 500.13935, L500.38246 #### Test performed at: [address] [address] Potassium [Moles/Vol] 4.6 mmol/L Normal 3.5-5.1 [facility] Comment on above: Order Comment: Comme nts To Phleb: pre-op in PAT Performed By: #### L 500.98133, L500.41605 #### Test performed at: [address] [address] Protein [Mass/Vol] 7.3 g/dL Normal 6.4-8.2 [facility] Comment on above: Order Comment: Comme nts To Phleb: pre-op in PAT Performed By: #### L 500.16022, L500.04702 #### Test performed at: [address] [address] Sodium [Moles/Vol] 141 mmol/L Normal 136-145 [facility] Comment on above: Order Comment: Comme nts To Phleb: pre-op in PAT Performed By: #### L 500.63338, L500.08020 #### Test performed at: [place] [address] Urea nitrogen [Mass/Vol] 28 mg/dL High 7-18 [facility] Comment on above: Order Comment: Comme nts To Phleb: pre-op in PAT Performed By: #### L 500.06152, L500.01218 #### Test performed at: [place] [address] GFR ESTIMATEon 01-26-2020 IF AMER 56 Low > 60 [facility] Comment on [...] for clinical interpretation. Performed By: #### L 500.58090, L500.42373 #### Test performed at: [place] [address] IF non-AFR AMER 46 Low > 60 [facility] Comment on above: Order Comment: Comme nts To Phleb: pre-op in PAT Performed By: #### L 500.03968, L500.60888 #### Test performed at: [place] [address] H & Froy 01-26-2020 H & P [facility] Patient: JEFFERSON CARCAMO [address] [place] [address] MR#: [id number] HISTORY and PHYSICAL : Service Date: 01/26/20 1530 See Addendum Jenny 4d HPI/Past Med Surg Hx/Fam Soc HPI Primary Care Physician [phone] Information Source PATIENT Language Barrier No Chief [...] hip showing that he was 'bone on bone". He states that it causes him to [...] SOB, CP, lower extremity edema, history of AK/stroke , or recent cough or cold. PMH/PSH [...] Chest pain, Pain on exertion, History of AK, Leg swelling. Gastrointestinal Denies: No Issues Noted, [...] Temp 36.8 01/25 143 Pulse 84 01/25 143 Resp 17 01/25 1439 Height: 180.34, Weight: [...] directed post- operatively. * Follow up with [facility] [employer] [facility]/Primary Care as scheduled. 3. Diabetes * Continue to take medications as prescribed. * Follow up with Dental Hygiene Instructor as scheduled. 4. Ankylosing Spondilitis: * Continue [...] Signed eSign Date and Time Trisha Quiñones 01/27/20 0856 Dinesh Huffman MD Normal [facility] TSPATon 01-26-2020 ABO and Rh group Nom (Bld) A POSITIVE Normal [facility] Comment on above: Order Comment: Trans fusion Status: CONSERVATION Blood Bank service requested: TYPE AND SCREEN Comments To Phleb: pre-op in PAT Performed By: #### B 100.0201 #### Test performed at: [address] [address] Otheron 12-06-2019 Interpreted by: EVON OTOOLE12/06/19 16:32MRN: [id number] Name: JEFFERSON CARCAMO STUDY:HIP, UNILATERAL W/PELVIS WHEN PERFORMED 2-3 VIEWS; Left; 12/06/20193:53 pm INDICATION:pain. ORDERING CLINICIAN:MARCO OTOOLE FINDINGS:AP lateral left hip x-ray shows advanced osteoarthritis hnhq-pt-wglacshzncloh complete loss of joint space. No fracture no dislocationotherwise noted Electronically signed by: MARCO OTOOLE 12/06/19 16:32 Normal [facility] [place] Phone: Otheron 11-22-2019 Interpreted by: KULWANT VAUGHN11/23/19 17:25MRN: [id number] Name: JEFFERSON CARCAMO STUDY:HIP, UNILATERAL W/PELVIS WHEN PERFORMED 2-3 VIEWS INDICATION:M70.60 M25.552. COMPARISON:None ORDERING CLINICIAN:PHILLIP BERNAL FINDINGS:Advanced osteoarthritis left hip. No fracture seen. No osseous lesion. IMPRESSION:Advanced osteoarthritis left hip.Electronically signed by: BELLO VAUGHN 11/23/19 17:25 Normal [facility] Work Phone: Comment on above: Ordering Provider: Lian BERNAL 10851 IO Hgb A1Con 10-06-2019 HbA1c (Bld) [Mass fraction] 6.8 % 4.4-6.4% [facility] Work Phone: IO glucose, blood, finger st ick via hand held monitoron 10-06-2019 Glucose [Mass/Vol] 118 mg/dL [employer] Work Phone: Comment on above: patient last ate at 12:00 p.mpatient tests 1x a day Complete Blood Count + Diffe rentialon 09-20-2019 Basophils (Bld) [#/Vol] 0.03 {x10E9/L} See Below [facility] Work Phone: Comment on above: Reference Range: 0.0 0 - 0.10 Basophils/100 WBC (Bld) 0.2 % 0.0 - 2.0 [employer] Phone: Eosinophils (Bld) [#/Vol] 0.37 {x10E9/L} See Below [employer] Phone: Comment on above: Reference Range: 0.0 0 - 0.70 Eosinophils/100 WBC (Bld) 3.0 % 0.0 - 6.0 [employer] Phone: Erythrocyte distribution width (RBC) [Ratio] 12.7 % See Below [employer] Phone: Comment on above: Reference Range: 11. 5 - 14.5 Hematocrit (Bld) [Volume fraction] 38.1 % below low threshold See Below [employer] Phone: Comment on above: Reference Range: 41. 0 - 52.0 Hemoglobin (Bld) [Mass/Vol] 12.7 g/dL below low threshold See Below [employer] Phone: Comment on above: Reference Range: 13. 5 - 17.5 Lymphocytes (Bld) [#/Vol] 2.83 {x10E9/L} See Below [employer] Phone: Comment on above: Reference Range: 1.2 0 - 4.80 Lymphocytes/100 WBC (Bld) 23.2 % See Below [employer] Phone: Comment on above: Reference Range: 13. 0 - 44.0 MCHC (RBC) [Mass/Vol] 33.3 g/dL See Below [employer] Work Phone: Comment on above: Reference Range: 32. 0 - 36.0 MCV (RBC) [Entitic vol] 94 fL 80 - 100 [employer] Work Phone: Monocytes (Bld) [#/Vol] 1.00 {x10E9/L} See Below [facility] Work Phone: Comment on above: Reference Range: 0.1 0 - 1.00 Monocytes/100 WBC (Bld) 8.2 % 2.0 - 10.0 [employer] Work Phone: Neutrophils/100 WBC (Bld) 65.2 % See Below [employer] Work Phone: Comment on above: Reference Range: 40. 0 - 80.0 Platelets (Bld) [#/Vol] 263 {x10E9/L} 150 - 450 [employer] Work Phone: RBC (Bld) [#/Vol] 4.07 {x10E12/L} below low threshold See Below [employer] Work Phone: Comment on above: Reference Range: 4.5 0 - 5.90 WBC (Bld) [#/Vol] 12.2 {x10E9/L} above high threshold 4.4 - 11.3 [employer] Work Phone: Complete Blood Count + Differential 0.2 % 0.0 - 0.9 [employer] Work Phone: Comment on above: Immature Granulocyte Count (IG) includes promyelocytes, myelocytes and metamyelocytes but does not include bands. Percent differential counts (%) should be interpreted in the context of the absolute cell counts (cells/L). Complete Blood Count + Differential 7.94 {x10E9/L} above high threshold See Below [employer] Work Phone: Comment on above: Reference Range: 1.2 0 - 7.70 Ferritin, Serumon 09-20-2019 Ferritin [Mass/Vol] 153 ug/L 20 - 300 [employer] Work Phone: Metabolic Panelon 09-20-2019 ALP [Catalytic activity/Vol] 76 U/L 33 - 120 [employer] Work Phone: Anion gap [Moles/Vol] 12 mmol/L 10 - 20 [employer] [employer] Work Phone: Bilirubin [Mass/Vol] 0.5 mg/dL 0.0 - 1.2 [facility] Work Phone: Calcium [Mass/Vol] 10.0 mg/dL 8.6 - 10.3 [facility] Work Phone: Chloride [Moles/Vol] 105 mmol/L 98 - 107 [facility] Work Phone: CO2 [Moles/Vol] 26 mmol/L 21 - 32 [facility] Work Phone: Creatinine [Mass/Vol] 1.70 mg/dL above high threshold See Below [facility] Work Phone: Comment on above: Reference Range: 0.5 0 - 1.30 Glucose [Mass/Vol] 115 mg/dL above high threshold 74 - 99 [employer] Work Phone: Iron [Mass/Vol] 68 ug/dL 35 - 150 [facility] Work Phone: Potassium [Moles/Vol] 4.6 mmol/L 3.5 - 5.3 [facility] [employer] Work Phone: Protein [Mass/Vol] 7.0 g/dL 6.4 - 8.2 [facility] Work Phone: Sodium [Moles/Vol] 138 mmol/L 136 - 145 [facility] Work Phone: Urea nitrogen [Mass/Vol] 43 mg/dL above high threshold 6 - 23 [facility] Work Phone: Otheron 09-20-2019 Albumin BCP dye [Mass/Vol] 4.4 g/dL 3.4 - 5.0 [facility] Work Phone: ALT With P-5'-P [Catalytic activity/Vol] 39 U/L 10 - 52 [facility] Work Phone: Comment on above: Patients treated wit h Sulfasalazine may generate falsely decreased results for ALT. AST With P-5'-P [Catalytic activity/Vol] 31 U/L 9 - 39 [facility] Work Phone: Iron binding capacity [Mass/Vol] 278 ug/dL 240 - 445 [facility] Work Phone: 51 {mL/min/1.73m2} Abnormal >60 [facility] Work Phone: Comment on above: CALCULATIONS OF CHARLES MATED GFR ARE PERFORMED USING THE MDRD STUDY EQUATION FOR THE IDMS-TRACEABLE CREATININE METHODS. CLIN CHEM 2007;53:766-72 42 {mL/min/1.73m2} Abnormal >60 [facility] Work Phone: 24 % below low threshold 25 - 45 [facility] Work Phone: Creatine Kinase, Levelon CK [Catalytic activity/Vol] 391 U/L above high threshold 0 - 325 [facility] Work Phone: Comment on above: Ordering Provider: Lian BERNAL [address] Hemoglobin A1Con 02-05-2019 HbA1c (Bld) [Mass fraction] 140 {MG/DL} [facility] Work Phone: Comment on above: Ordering Provider: Lian BERNAL [address] HbA1c (Bld) [Mass fraction] 6.5 % [facility] Work Phone: Comment on above: Diagnosis of Diabete s-Adults Non-Diabetic: < or = 5.6% Increased risk for developing diabetes: 5.7-6.4% Diagnostic of diabetes: > or = 6.5%. Monitoring of Diabetes Age (y) Therapeutic Goal (%) Adults: >18 <7.0 Pediatrics: 13-18 <7.5 7-12 <8.0 0- 6 7.5-8.5 [place] [employer]. Diabetes Care 33(S1), Feb 2009. Ordering Provider: Lian BERNAL [address] Lipid Panelon 02-05-2019 Cholesterol [Mass/Vol] 133 mg/dL 0 - 199 [employer] Work Phone: Comment on above: . AGE [...] immediately prior to Metamizole dosing. Ordering Provider: Lina BERNAL [address] Cholesterol in HDL [Mass/Vol] 37.0 mg/dL Abnormal [facility] Work Phone: Comment on above: . AGE VERY LOW LOW N ORMAL HIGH 0-19 Y < 35 < 40 40-45 ---- 20-24 Y ---- < 40 >45 ---- >24 Y ---- < 40 40-60 >60. Ordering Provider: Lian BERNAL [address] Cholesterol in LDL [Mass/Vol] 51 mg/dL 0 - 99 [facility] Work Phone: Comment on above: . NEAR BORD AGE ARACELI RABLE OPTIMAL HIGH HIGH VERY HIGH 0-19 Y 0 - 109 --- 110-129 >/= 130 ---- 20-24 Y 0 - 119 --- 120-159 >/= 160 ---- >24 Y 0 - 99 100-129 130-159 160-189 >/=190. Ordering Provider: Lian BERNAL [address] Cholesterol non HDL [Mass/Vol] 96 mg/dL [facility] Work Phone: Comment on above: AGE DESIRABLE BORDER LINE HIGH HIGH VERY HIGH 0-19 Y 0 - 119 120 - 144 >/= 145 >/= 160 20-24 Y 0 - 149 150 - 189 >/= 190 ---- >24 Y 30 MG/DL ABOVE LDL CHOLESTEROL GOAL. Ordering Provider: Lian BERNAL [address] Cholesterol.total/Chol esterol in HDL [Mass ratio] 3.6 {ratio} [facility] Work Phone: Comment on above: REF VALUESDESIRABLE < 3.4HIGH RISK > 5.0 Ordering Provider: Lian BERNAL 74[address] Triglyceride [Mass/Vol] 226 mg/dL above high threshold 0 - 149 [facility] Work Phone: Comment on above: . AGE [...] to Metamizole dosing. Ordering Provider: Lian BERNAL [address] Lipid Panel 45 mg/dL above high threshold 0 - 40 [facility] Work Phone: Comment on above: Ordering Provider: Lian BERNAL 65294 Metabolic Panelon 02-05-2019 ALP [Catalytic activity/Vol] 79 U/L 33 - 120 [facility] Work Phone: Comment on above: Ordering Provider: Lian Rosa12 Anion gap [Moles/Vol] 13 mmol/L 10 - 20 [facility] Work Phone: Comment on above: Ordering Provider: Lian Rosa12 Bilirubin [Mass/Vol] 0.7 mg/dL 0.0 - 1.2 [facility] Work Phone: Comment on above: Ordering Provider: Lian Rosa12 Calcium [Mass/Vol] 9.2 mg/dL 8.6 - 10.3 [facility] Work Phone: Comment on above: Ordering Provider: Lian Rosa12 Chloride [Moles/Vol] 103 mmol/L 98 - 107 [facility] Work Phone: Comment on above: Ordering Provider: Lian Rosa12 CO2 [Moles/Vol] 27 mmol/L 21 - 32 [facility] Work Phone: Comment on above: Ordering Provider: Lian BERNAL [address]18[address] Creatinine [Mass/Vol] 1.57 mg/dL above high threshold See Below [facility] Work Phone: Comment on above: Reference Range: 0.5 0 - 1.30 Ordering Provider: Lian BERNAL [address] Glucose [Mass/Vol] 161 mg/dL above high threshold 74 - 99 [facility] Work Phone: Comment on above: Ordering Provider: Lian Rosa12 Potassium [Moles/Vol] 4.1 mmol/L 3.5 - 5.3 [facility] Work Phone: Comment on above: Ordering Provider: Lian Rosa12 Protein [Mass/Vol] 7.0 g/dL 6.4 - 8.2 [facility] Work Phone: Comment on above: Ordering Provider: Lian BERNAL 105[address] Sodium [Moles/Vol] 139 mmol/L 136 - 145 [facility] Work Phone: Comment on above: Ordering Provider: Lian Rosa12 Urea nitrogen [Mass/Vol] 30 mg/dL above high threshold 6 - 23 [facility] Work Phone: Comment on above: Ordering Provider: Lian Rosa12 Otheron 02-05-2019 Albumin BCP dye [Mass/Vol] 4.1 g/dL 3.4 - 5.0 [facility] Work Phone: Comment on above: Ordering Provider: Lian Rosa12 Albumin Ql (U) 7.2 mg/L See Below [employer] Work Phone: Comment on above: Reference Range: Not Established Ordering Provider: Lian Joaquin ALT With P-5'-P [Catalytic activity/Vol] 33 U/L 10 - 52 [facility] Work Phone: Comment on above: Patients treated wit h Sulfasalazine may generate falsely decreased results for ALT. Ordering Provider: Lian Rosa12 AST With P-5'-P [Catalytic activity/Vol] 29 U/L 9 - 39 [facility] Work Phone: Comment on above: Ordering Provider: Lian Joaquin 46 {mL/min/1.73m2} Abnormal >60 [facility] Work Phone: Comment on above: Ordering Provider: Lian Joaquin 56 {mL/min/1.73m2} Abnormal >60 [facility] Work Phone: Comment on above: CALCULATIONS OF CHARLES MATED GFR ARE PERFORMED USING THE MDRD STUDY EQUATION FOR THE IDMS-TRACEABLE CREATININE METHODS. CLIN CHEM 2007;53:766-72 Ordering Provider: Lian Joaquin Prostate Specific Antigenon 02-05-2019 Prostate specific Ag [Mass/Vol] 2.89 ng/mL See Below [facility] Work Phone: Comment on above: Reference Range: 0.0 0 - 4.00The FDA requires that the method used for PSA assay be reported to the physician. Values obtained with different assay methods must not be used interchangeably. This test was performed at [facility] using the ADVIALitResaur PSA method, which is a sandwich immunoassay using chemiluminescence for quantitation. The assay is approvedfor measurement of prostate-specific antigen (PSA) in serum and may be used in conjunction with a digital rectalexamination in men 50 years and older as an aid in detection of prostate cancer. 9-Aweib-eirvyipfg inhibitors (e.g. Proscar, Finasteride, Avodart, Dutasteride and [place]) for the treatment of BPH have been shown to lower PSA levels by an average of 50% after 6 months of treatment. Ordering Provider: Lian Joaquin TSH - Thyroid Stimulating Ho Joel goreon 02-05-2019 TSH Qn 1.48 {mIU/L} See Below [facility] Work Phone: Comment on above: Reference Range: 0.4 4 - 3.98 TSH testing is performed using different testing methodology at [facility] than at other [facility]. Direct result comparisons should only be made within the same method. Ordering Provider: Lian BERNAL [address]361 Urinalysison 02-05-2019 Albumin/Creatinine DL <= 20 mg/L (U) [Mass ratio] 5.1 {ug/mg_crt} 0.0 - 30.0 [facility] Work Phone: Comment on above: Ordering Provider: Lian BERNAL 08077 Creatinine (U) [Mass/Vol] 140.0 mg/dL See Below [facility] Work Phone: Comment on above: Reference Range: 20. 0 - 370.0 Ordering Provider: Lian BERNAL 63007 CBC PLATELET AUTO DIFFon BASO ABS 0.06 K/uL Normal 0-0.20 [facility] Comment on above: Performed By: #### L ANAMIKA LFER #### [facility] Laboratory [address] [place] [address] Basophils/100 WBC (Bld) 0.5 % Normal 0.0-2.0 [facility] Comment on above: Performed By: #### L ANAMIKA LFER #### [facility] [address] [place] [address] EOS ABS 0.41 K/uL High 0.10-0.30 [facility] Comment on above: Performed By: #### L IRONP LFER #### [facility] [address] [place] [address] Eosinophils/100 WBC (Bld) 3.6 % Normal 0.0-6.0 [facility] Comment on above: Performed By: #### L IRONP LFER #### [facility] Laboratory [address] [place] [address] Erythrocyte distribution width Ratio (RBC) 12.8 % Normal 11.5-14.5 [facility] Comment on above: Performed By: #### L IRONP, LFER #### [facility] Laboratory [address] [place] [address] Hematocrit Volume Fraction (Bld) 40.9 % Normal 39.0-55.0 [facility] Comment on above: Performed By: #### L IRONP, LFER #### [facility] Laboratory [address] [place] [address] Hemoglobin mass conc (Bld) 13.5 g/dL Low 14.0-16.5 [facility] Comment on above: Performed By: #### L IRONP, LFER #### [facility] [address] [place] [address] IG % 0.1 % Normal 0.0-0.9 [facility] Comment on above: Performed By: #### L IRONP, LFER #### [facility] [address] [place] [address] IG ABS 0.01 K/uL Normal [facility] Comment on above: Performed By: #### L IRONP, LFER #### [facility] [address] [place] [address] Lymphocytes #/vol (Bld) 4.06 10*3/uL High 1.2-4.0 [facility] Comment on above: Performed By: #### L IRONP, LFER #### [facility] [address] [place] [address] Lymphocytes/100 WBC (Bld) 35.7 % Normal 13.0-44.0 [facility] Comment on above: Performed By: #### L IRONP, LFER #### [facility] Laboratory [address] [place], [place] [id number] MCH Entitic mass (RBC) 30.6 pg Normal 25.4-34.6 [facility] Comment on above: Performed By: #### L IRONP, LFER #### [facility] Laboratory [address] [place], [place] [id number] MCHC mass conc (RBC) 33.0 g/dL Normal 30.0-36.0 [facility] Comment on above: Performed By: #### L IRONP, LFER #### [facility] Laboratory [address] [place] [address] MCV Entitic volume (RBC) 92.7 fL Normal 79.0-98.0 [facility] Comment on above: Performed By: #### L IRONP, LFER #### [facility] Laboratory [address] [place] [address] MONO ABS 1.05 K/uL High 0-1.00 [facility] Comment on above: Performed By: #### L IRONP, LFER #### [facility] Laboratory [address] [place] [address] Monocytes/100 WBC (Bld) 9.2 % Normal 2.0-10.0 [facility] Comment on above: Performed By: #### L IRONP, LFER #### [facility] Laboratory [address] [place] [address] NEUT ABS 5.79 K/uL Normal 1.9-8.0 [facility] Comment on above: Performed By: #### L IRONP, LFER #### [facility] Laboratory [address] [place] [address] Neutrophils/100 WBC (Bld) 50.9 % Normal 40.0-80.0 [facility] Comment on above: Performed By: #### L IRONP, LFER #### [facility] [address] [place] [address] Platelet mean volume Entitic volume (Bld) 9.7 fL Normal 8.4-11.9 [facility] Comment on above: Performed By: #### L IRONP, LFER #### [facility] [address] [place] [address] Platelets #/vol (Bld) 273 10*3/uL Normal 140-440 [facility] Comment on above: Performed By: #### L IRONP, LFER #### [facility] [address] [place] [address] RBC #/vol (Bld) 4.41 10*6/uL Normal 4.0-6.0 [facility] Comment on above: Performed By: #### L IRONP, LFER #### [facility] [facility] [address] [place] [address] 84119 WBC #/vol (Bld) 11.4 10*3/uL High 3.9-11.0 [facility] Comment on above: Performed By: #### L IRONP, LFER #### [facility] [address] [place] [address] COMP METABOLIC PANELon 03-24 ALK PHOS TOTAL 81 U/L Normal 45-117 [facility] Comment on above: Order Comment: 2 OF 2 ORDERS Performed By: #### L IRONP, LFER #### [facility] [address] [place] [address] ALT enzyme act/vol 25 U/L Normal 10-52 [facility] Comment on above: Order Comment: 2 OF 2 ORDERS Performed By: #### L IRONP, LFER #### [facility] Laboratory [address] [place] [address] 45664 AST enzyme act/vol 24 U/L Normal 13-39 [facility] Comment on above: Order Comment: 2 OF 2 ORDERS Performed By: #### L IRONP, LFER #### [facility] [address] [place] [address] 27869 BILI TOTAL 0.4 mg/dL Normal 0-1.2 [facility] Comment on above: Order Comment: 2 OF 2 ORDERS Performed By: #### L IRONP, LFER #### [facility] Laboratory [address] [place] [address] 96350 Protein mass conc 7.6 g/dL Normal 6.4-8.2 [facility] Comment on above: Order Comment: 2 OF 2 ORDERS Performed By: #### L IRONP, LFER #### [facility] Laboratory [address] [place] [address] 31048 Albumin mass conc 4.3 g/dL Normal 3.4-5.0 [facility] Comment on above: Order Comment: 2 OF 2 ORDERS Performed By: #### L IRONP, LFER #### [facility] [address] [place] [address] 86037 Calcium mass conc 9.9 mg/dL Normal 8.6-10.3 [facility] Comment on above: Order Comment: 2 OF 2 ORDERS Performed By: #### L IRONP, LFER #### [facility] [address] [place] [address] 90317 Chloride molar conc 101 mmol/L Normal 98-107 [facility] Comment on above: Order Comment: 2 OF 2 ORDERS Performed By: #### L IRONP, LFER #### [facility] [address] [place], [place] [phone] CO2 molar conc 30 mmol/L Normal 21-32 [facility] Comment on above: Order Comment: 2 OF 2 ORDERS Performed By: #### L IRONP, LFER #### [facility] [address] [place], [place] [phone] Creatinine mass conc 1.30 mg/dL Normal 0.5-1.30 [facility] Comment on above: Order Comment: 2 OF 2 ORDERS Result Comment: Antonette fied kinetic Sweta reaction - IDMS traceable Performed By: #### L IRONP, LFER #### [facility] [address] [place] [address] Glucose mass conc 101 mg/dL High 74-99 [facility] Comment on above: Order Comment: 2 OF 2 ORDERS Performed By: #### L IRONP, LFER #### [facility] [address] [place] [address] Potassium molar conc 4.2 mmol/L Normal 3.5-5.3 [facility] Comment on above: Order Comment: 2 OF 2 ORDERS Performed By: #### L IRONP, LFER #### [facility] [address] [place], [place] [phone] Sodium molar conc 137 mmol/L Normal 136-145 [facility] Comment on above: Order Comment: 2 OF 2 ORDERS Performed By: #### L IRONP, LFER #### [facility] [address] [place] [address] Urea nitrogen mass conc 31 mg/dL High 6-23 [facility] Comment on above: Order Comment: 2 OF 2 ORDERS Performed By: #### L IRONP, LFER #### [facility] [address] [place], [place] [phone] GLOMERULAR FILTRATION RATE E STon 03-24-2018 GFR/1.73 sq M predicted among non-blacks MDRD vol rate/area (S/P/Bld) 61 mL/min/{1.73_m2} Normal > 60 [facility] Comment on above: Order Comment: 2 OF 2 ORDERS Performed By: #### L IRONP, LFER #### [facility] Laboratory [address] [place] [address] 18560 IF AMER 71 mL/MIN Normal > 60 [facility] Comment on above: Order Comment: 2 OF 2 ORDERS Result Comment: Effe ctive 07/13/14: CKD-EPI equation / based on IDMS traceable creatinine. Continue to use the CREAT CLR-DOSE (Cockgroft-Gault) value for determining medication dose. Performed By: #### L IRONP, LFER #### [facility] [address] [place] [address] 67605 COMP METABOLIC PANELon 02-13 Albumin mass conc 3.9 g/dL Normal 3.4-5.0 [facility] Comment on above: Order Comment: 2 OF 2 ORDERS Performed By: #### L IRONP, LFER #### [facility] [address] [place] [address] 29080 ALK PHOS TOTAL 66 U/L Normal 45-117 [facility] Comment on above: Order Comment: 2 OF 2 ORDERS Performed By: #### L IRONP, LFER #### [facility] [address] [place] [address] 18409 ALT enzyme act/vol 20 U/L Normal 10-52 [facility] Comment on above: Order Comment: 2 OF 2 ORDERS Performed By: #### L IRONP, LFER #### [facility] [address] [place] [address] 80090 AST enzyme act/vol 22 U/L Normal 13-39 [facility] Comment on above: Order Comment: 2 OF 2 ORDERS Performed By: #### L IRONP, LFER #### [facility] [address] [place] [address] 94698 BILI TOTAL 0.4 mg/dL Normal 0-1.2 [facility] Comment on above: Order Comment: 2 OF 2 ORDERS Performed By: #### L IRONP, LFER #### [facility] [address] [place] [address] 35971 Calcium mass conc 9.1 mg/dL Normal 8.6-10.3 [facility] Comment on above: Order Comment: 2 OF 2 ORDERS Performed By: #### L IRONP, LFER #### [facility] [address] [place] [address] Chloride molar conc 103 mmol/L Normal 98-107 [facility] Comment on above: Order Comment: 2 OF 2 ORDERS Performed By: #### L IRONP, LFER #### [facility] [address] [place] [address] CO2 molar conc 29 mmol/L Normal 21-32 [facility] Comment on above: Order Comment: 2 OF 2 ORDERS Performed By: #### L IRONP, LFER #### [facility] [address] [place] [address] Creatinine mass conc 1.43 mg/dL High 0.5-1.3 [facility] Comment on above: Order Comment: 2 OF 2 ORDERS Performed By: #### L IRONP, LFER #### [facility] [address] [place] [address] 19336 Glucose mass conc 146 mg/dL High 74-99 [facility] Comment on above: Order Comment: 2 OF 2 ORDERS Performed By: #### L IRONP, LFER #### [facility] [address] [place] [address] 96797 Potassium molar conc 4.4 mmol/L Normal 3.5-5.3 [facility] Comment on above: Order Comment: 2 OF 2 ORDERS Performed By: #### L IRONP, LFER #### [facility] [address] [place] [address] Protein mass conc 6.8 g/dL Normal 6.4-8.2 [facility] Comment on above: Order Comment: 2 OF 2 ORDERS Performed By: #### L IRONP, LFER #### [facility] [address] [place] [address] Sodium molar conc 138 mmol/L Normal 136-145 [facility] Comment on above: Order Comment: 2 OF 2 ORDERS Performed By: #### L IRONP, LFER #### [facility] [address] [place] [address] Urea nitrogen mass conc 29 mg/dL High 6-23 [facility] Comment on above: Order Comment: 2 OF 2 ORDERS Performed By: #### L IRONP, LFER #### [facility] [address] [place] [address] GLOMERULAR FILTRATION RATE E STon 02-13-2018 GFR/1.73 sq M predicted among non-blacks MDRD vol rate/area (S/P/Bld) 55 mL/min/{1.73_m2} Low > 60 [facility] Comment on above: Order Comment: 2 OF 2 ORDERS Performed By: #### L IRONP, LFER #### [facility] [address] [place] [address] 02407 IF AMER 63 mL/MIN Normal > 60 [facility] Comment on above: Order Comment: 2 OF 2 ORDERS Result Comment: Effe ctive 07/13/14: CKD-EPI equation / based on IDMS traceable creatinine. Continue to use the CREAT CLR-DOSE (Cockgroft-Gault) value for determining medication dose. Performed By: #### L IRONP, LFER #### [facility] [address] [place] [address] 52046 HEMOGLOBIN A1C GLYCOHGBon eAG 125.5 mg/dL Normal [facility] Comment on above: Order Comment: 2 OF 2 ORDERS Result Comment: eAG: (Estimated Average Glucose) is a calculated value from HgbA1c and is new accounts banking representative of the average blood glucose level in the last 2-3 month period. Performed By: #### L IRONP, LFER #### [facility] [address] [place] [address] 92072 Hemoglobin A1c/Hemoglobin.total mass fraction (Bld) 6.0 % Normal 4.3-6.1 [facility] Comment on above: Order Comment: 2 OF 2 ORDERS Performed By: #### L IRONP, LFER #### [facility] [address] [place] [address] 09537 LIPID PANELon 02-13-2018 Cholesterol in HDL mass conc 35.0 mg/dL Low >40 [facility] Comment on above: Order Comment: 2 OF 2 ORDERS Performed By: #### L IRONP, LFER #### [facility] [address] [place] [address] 27248 Cholesterol in LDL mass conc 65 mg/dL Normal [facility] Comment on above: Order Comment: 2 OF 2 ORDERS Result Comment: LDL Risk Stratification: < 100 mg/dL - Optimal < 130 - Near optimal 130 - 159 - Borderline high 160 - 189 - High > 189 - Very high *National Cholesterol Education Program (NCEP) levels in terms of risk for coronary heart disease. Performed By: #### L IRONP, LFER #### [facility] [address] [place] [address] Cholesterol mass conc 125 mg/dL Normal [facility] Comment on above: Order Comment: 2 OF 2 ORDERS Result Comment: Chol esterol Risk Stratification <200 mg/dL Desirable 200-240 mg/dL Borderline >240 mg/dL High Risk Performed By: #### L IRONP, LFER #### [facility] [address] [place] [address] Triglyceride mass conc 157 mg/dL High [facility] Comment on above: Order Comment: 2 OF 2 ORDERS Result Comment: Trig lycerides Reference Range <150 mg/dL Normal 150-199 mg/dL Borderline High 200-499 mg/dL High >/=500 mg/dL Very High Performed By: #### L IRONP, LFER #### [facility] [address] [place], [place] [phone] UR MICROALBUMIN RANDOMon Creatinine mass conc 92.2 mg/dL Normal [facility] Comment on above: Performed By: #### L IRONP, LFER #### [facility] [address] [place], [place] [phone] UR MICROALB RDM < 5.0 Normal [facility] Comment on above: Performed By: #### L IRONP, LFER #### [facility] [address] [place] [address] 51343 UR RATIO NotDone Normal <30.0 [facility] Comment on above: Result Comment: Unab le to calculate Urine Microalbumin/Creatinine Ratio due to low microalbumin value. Suggest repeating with a 24hr specimen. Performed By: #### L IRONP, LFER #### [facility] [address] [place] [address] 54180 MISCELLANEOUS TESTon 018 MISC TEST Normal [facility] Comment on above: Order Comment: 2 OF 2 ORDERS Result Comment: [facility] Final report from [facility] will be mailed/faxed Performed By: #### L IRONP, LFER #### [facility] [address] [place] [address] MISCELLANEOUS TESTon 018 MISC TEST Normal [facility] Comment on above: Order Comment: CD3 - LAVENDER 1 OF 2 ORDERS Name of Test: CD3 (2nd line): GREEN NA HEP LAV Result Comment: Test ing performed at [facility] Final report from [facility] will be mailed/faxed Performed By: #### L MISCT #### [facility] IGGon 08-31-2017 IgG mass conc 1044 mg/dL Normal 700-1600 [facility] Comment on above: Order Comment: 2 OF 2 ORDERS Result Comment: [facility] [place];[address] [place] [address];Lab ;Dir ctor: Joaquin Garcia, PhD Performed By: #### L IGG #### [facility] [address] [place] [id number] CBC AUTOon 08-29-2017 Erythrocyte distribution width Ratio (RBC) 13.0 % Normal 11.5-14.5 [facility] Comment on above: Order Comment: 2 OF 2 ORDERS Performed By: #### L CBCMD, LCBC #### [facility] [address] [place] [address] Hematocrit Volume Fraction (Bld) 39.5 % Normal 39.0-55.0 [facility] Comment on above: Order Comment: 2 OF 2 ORDERS Performed By: #### L CBCMD, LCBC #### [facility] [address] [place] [address] Hemoglobin mass conc (Bld) 13.1 g/dL Low 14.0-16.5 [facility] Comment on above: Order Comment: 2 OF 2 ORDERS Performed By: #### L CBCMD, LCBC #### [facility] [address] [place] [address] MCH Entitic mass (RBC) 30.4 pg Normal 25.4-34.6 [facility] Comment on above: Order Comment: 2 OF 2 ORDERS Performed By: #### L CBCMD, LCBC #### [facility] Laboratory [address] [place] [address] 49956 MCHC mass conc (RBC) 33.2 g/dL Normal 30.0-36.0 [facility] Comment on above: Order Comment: 2 OF 2 ORDERS Performed By: #### L CBCMD, LCBC #### [facility] [address] [place] [address] 51401 MCV Entitic volume (RBC) 91.6 fL Normal 79.0-98.0 [facility] Comment on above: Order Comment: 2 OF 2 ORDERS Performed By: #### L CBCMD, LCBC #### [facility] [address] [place] [address] 42716 Platelet mean volume Entitic volume (Bld) 10.1 fL Normal 8.4-11.9 [facility] Comment on above: Order Comment: 2 OF 2 ORDERS Performed By: #### L CBCMD, LCBC #### [facility] [address] [place], [place] [phone] Platelets #/vol (Bld) 260 10*3/uL Normal 140-440 [facility] Comment on above: Order Comment: 2 OF 2 ORDERS Performed By: #### L CBCMD, LCBC #### [address] [address] RBC #/vol (Bld) 4.31 10*6/uL Normal 4.0-6.0 [facility] Comment on above: Order Comment: 2 OF 2 ORDERS Performed By: #### L CBCMD, LCBC #### [facility] [address] [place], [place] [phone] WBC #/vol (Bld) 12.3 10*3/uL High 3.9-11.0 [facility] Comment on above: Order Comment: 2 OF 2 ORDERS Performed By: #### L CBCMD, LCBC #### [place] [id number] CBC w/MANUAL DIFFon 08-30-19 18 Eosinophils/100 WBC (Bld) 5 % High 1-3 [facility] Comment on above: Order Comment: 2 OF 2 ORDERS Performed By: #### L CBCMD, LCBC #### [facility] [address] [place] [address] 64988 Lymphocytes/100 WBC (Bld) 20 % Normal 20-30 [facility] Comment on above: Order Comment: 2 OF 2 ORDERS Performed By: #### L CBCMD, LCBC #### [facility] [address] [place] [address] 05101 Monocytes/100 WBC (Bld) 5 % Normal 2-8 [facility] Comment on above: Order Comment: 2 OF 2 ORDERS Performed By: #### L CBCMD, LCBC #### [facility] [address] [place] [address] 76767 Neutrophils/100 WBC (Bld) 70 % Normal 50-70 [facility] Comment on above: Order Comment: 2 OF 2 ORDERS Performed By: #### L CBCMD, LCBC #### [facility] [address] [place] [address] 43659 Platelets #/vol (Bld) ADEQ Normal [facility] Comment on above: Order Comment: 2 OF 2 ORDERS Performed By: #### L CBCMD, LCBC #### [facility] [address] [place] [address] 59599 RBC COMMENTS NORMAL MORPHOLOGY Normal [facility] Comment on above: Order Comment: 2 OF 2 ORDERS Performed By: #### L CBCMD, LCBC #### [facility] [address] [place] [address] 95990 TOTAL CELLS 100 #Cells Normal [facility] Comment on above: Order Comment: 2 OF 2 ORDERS Performed By: #### L CBCMD, LCBC #### [facility] [address] [place] [address] 98768 NRBC # 0.00 K/uL Normal [facility] Comment on above: Order Comment: 2 OF 2 ORDERS Performed By: #### L CBCMD, LCBC #### [facility] [address] [place] [address] 47868 NRBC % 0.0 /100 WBC Normal 0 [facility] Comment on above: Order Comment: 2 OF 2 ORDERS Performed By: #### L CBCMD, LCBC #### [facility] [address] [place] [address] 98180 COMP METABOLIC PANELon 08-29 Albumin mass conc 4.1 g/dL Normal 3.4-5.0 [facility] Comment on above: Order Comment: 2 OF 2 ORDERS Is patient fasting? YES Performed By: #### L LDH, LURIC, LCMP, LGFRP #### [facility] [address] [place] [address] 10312 ALK PHOS TOTAL 60 U/L Normal 45-117 [facility] Comment on above: Order Comment: 2 OF 2 ORDERS Is patient fasting? YES Performed By: #### L LDH, LURIC, LCMP, LGFRP #### [facility] [address] [place] [address] 03135 ALT enzyme act/vol 21 U/L Normal 10-52 [facility] Comment on above: Order Comment: 2 OF 2 ORDERS Is patient fasting? YES Performed By: #### L LDH, LURIC, LCMP, LGFRP #### [facility] [address] [place] [address] 86737 AST enzyme act/vol 20 U/L Normal 13-39 [facility] Comment on above: Order Comment: 2 OF 2 ORDERS Is patient fasting? YES Performed By: #### L LDH, LURIC, LCMP, LGFRP #### [facility] [address] [place] [address] 48850 BILI TOTAL 0.4 mg/dL Normal 0-1.2 [facility] Comment on above: Order Comment: 2 OF 2 ORDERS Is patient fasting? YES Performed By: #### L LDH, LURIC, LCMP, LGFRP #### [facility] [address] [place] [address] 40557 Calcium mass conc 9.8 mg/dL Normal 8.6-10.3 [facility] Comment on above: Order Comment: 2 OF 2 ORDERS Is patient fasting? YES Performed By: #### L LDH, LURIC, LCMP, LGFRP #### [facility] [address] [place] [address] 73886 Chloride molar conc 104 mmol/L Normal 98-107 [facility] Comment on above: Order Comment: 2 OF 2 ORDERS Is patient fasting? YES Performed By: #### L LDH, LURIC, LCMP, LGFRP #### [facility] Laboratory [address] [place] [address] 44447 CO2 molar conc 27 mmol/L Normal 21-32 [facility] Comment on above: Order Comment: 2 OF 2 ORDERS Is patient fasting? YES Performed By: #### L LDH, LURIC, LCMP, LGFRP #### [facility] [address] [place] [address] Creatinine mass conc 1.50 mg/dL High 0.5-1.3 [facility] Comment on above: Order Comment: 2 OF 2 ORDERS Is patient fasting? YES Performed By: #### L LDH, LURIC, LCMP, LGFRP #### [facility] [address] [place] [address] Glucose mass conc 164 mg/dL High 74-99 [facility] Comment on above: Order Comment: 2 OF 2 ORDERS Is patient fasting? YES Performed By: #### L LDH, LURIC, LCMP, LGFRP #### [facility] [address] [place] [address] 47459 Potassium molar conc 4.5 mmol/L Normal 3.5-5.3 [facility] Comment on above: Order Comment: 2 OF 2 ORDERS Is patient fasting? YES Performed By: #### L LDH, LURIC, LCMP, LGFRP #### [facility] [address] [place] [address] 44280 Protein mass conc 7.5 g/dL Normal 6.4-8.2 [facility] Comment on above: Order Comment: 2 OF 2 ORDERS Is patient fasting? YES Performed By: #### L LDH, LURIC, LCMP, LGFRP #### [facility] [address] [place] [address] 78195 Sodium molar conc 137 mmol/L Normal 136-145 [facility] Comment on above: Order Comment: 2 OF 2 ORDERS Is patient fasting? YES Performed By: #### L LDH, LURIC, LCMP, LGFRP #### [facility] [address] [place] [address] 05215 Urea nitrogen mass conc 33 mg/dL High 6-23 [facility] Comment on above: Order Comment: 2 OF 2 ORDERS Is patient fasting? YES Performed By: #### L LDH, LURIC, LCMP, LGFRP #### [facility] [address] [place] [address] 08963 FERRITINon 08-29-2017 Ferritin mass conc 67 ng/mL Normal 20-300 [facility] Comment on above: Order Comment: 2 OF 2 ORDERS Performed By: #### L IRONP, LFER #### [facility] [address] [place], [place] [phone] GLOMERULAR FILTRATION RATE E STon 08-29-2017 GFR/1.73 sq M predicted among non-blacks MDRD vol rate/area (S/P/Bld) 52 mL/min/{1.73_m2} Low > 60 [facility] Comment on above: Order Comment: 2 OF 2 ORDERS Is patient fasting? YES Performed By: #### L LDH, LURIC, LCMP, LGFRP #### [facility] [address] [place], [place] [phone] IF AMER 60 mL/MIN Normal > 60 [facility] Comment on above: Order Comment: 2 OF 2 ORDERS Is patient fasting? YES Result Comment: Effe ctive 07/13/14: CKD-EPI equation / based on IDMS traceable creatinine. Continue to use the CREAT CLR-DOSE (Cockgroft-Gault) value for determining medication dose. Performed By: #### L LDH, LURIC, LCMP, LGFRP #### [facility] [address] [place] [address] 18882 IRON PANELon 08-29-2017 Iron mass conc 68 ug/dL Normal 35-150 [facility] Comment on above: Order Comment: 2 OF 2 ORDERS Performed By: #### L IRONP, LFER #### [facility] [address] [place], [place] [phone] IRON SAT 20 % Low 25-45 [facility] Comment on above: Order Comment: 2 OF 2 ORDERS Performed By: #### L IRONP, LFER #### [facility] [address] [place] [phone] TIBC 335 ug/dL Normal 250-445 [facility] Comment on above: Order Comment: 2 OF 2 ORDERS Performed By: #### L IRONP, LFER #### [facility] [facility] [address] [place] [address] LDH (LD)on 08-29-2017 LDH 106 U/L Normal [id number] [facility] Comment on above: Order Comment: 2 OF 2 ORDERS Is patient fasting? YES Performed By: #### L LDH, LURIC, LCMP, LGFRP #### [facility] [address] [place] [address] URIC ACID BLDon 08-29-2017 Urate mass conc 4.3 mg/dL Normal 4.0-7.5 [facility] Comment on above: Order Comment: 2 OF 2 ORDERS Is patient fasting? YES Performed By: #### L LDH, LURIC, LCMP, LGFRP #### [facility] [address] [place] [address] Vital Signs Date Time Vital Sign Value Performing Clinician Facility 11-04-2024 14:00-0400 Body temperature 97.9 [degF] Dr. Mayco Fenton MD Work Phone: [facility] 11-04-2024 14:00-0400 Diastolic blood pressure 71 mm[Hg] Dr. Mayco Fenton MD Work Phone: [facility] 11-04-2024 14:00-0400 Heart rate 87 /min Dr. Mayco Fenton MD Work Phone: [facility] 11-04-2024 14:00-0400 Respiratory rate 16 /min Dr. Mayco Fenton MD Work Phone: [facility] 11-04-2024 14:00-0400 SaO2% (BldA) [Mass fraction] 100 % Dr. Mayco Fenton MD Work Phone: [facility] 11-04-2024 14:00-0400 Systolic blood pressure 130 mm[Hg] Dr. Mayco Fenton MD Work Phone: [facility] 11-04-2024 10:48-0400 Body height 177.[address] Mayco Fenton MD Work Phone: [facility] 11-04-2024 10:48-0400 Body weight 95.[address] Mayco Fenton MD Work Phone: [facility] 11-04-2024 05:52-0400 Body mass index (BMI) [Ratio] 30 kg/m2 Dr. Mayco Fenton MD Work Phone: [facility] 10-29-2024 20:17-0400 Body temperature 99.6 [degF] Dr. Mayco Fenton MD Work Phone: [facility] 10-29-2024 20:17-0400 Diastolic blood pressure 71 mm[Hg] Dr. Mayco Fenton MD Work Phone: [facility] 10-29-2024 20:17-0400 Heart rate 102 /min Dr. Mayco Fenton MD Work Phone: [facility] 10-29-2024 20:17-0400 Respiratory rate 20 /min Dr. Mayco Fenton MD Work Phone: [phone] 10-29-2024 20:17-0400 SaO2% (BldA) [Mass fraction] 100 % Dr. Mayco Fenton MD Work Phone: [facility] 10-29-2024 20:17-0400 Systolic blood pressure 151 mm[Hg] Dr. Mayco Fenton MD Work Phone: [facility] 10-29-2024 16:40-0400 Body height 177.[address] Mayco Fenton MD Work Phone: [facility] 10-29-2024 16:40-0400 Body mass index (BMI) [Ratio] 30.5 kg/m2 Dr. Mayco Fneton MD Work Phone: [facility] 10-29-2024 16:40-0400 Body weight 96.[address] Mayco Fenton MD Work Phone: [facility] 09-20-2024 15:34-0400 Body mass index (BMI) [Ratio] 31 kg/m2 Giovanna Cook MD Work Phone: [facility] 09-20-2024 15:34-0400 Body temperature 97.9 [degF] Giovanna Cook MD Work Phone: [facility] 09-20-2024 15:34-0400 Body weight 98 kg Giovanna Cook MD Work Phone: [facility] 09-20-2024 15:34-0400 Diastolic blood pressure 77 mm[Hg] Giovanna Cook MD Work Phone: [facility] 09-20-2024 15:34-0400 Heart rate 86 /min Giovanna Cook MD Work Phone: [facility] 09-20-2024 15:34-0400 Respiratory rate 16 /min Giovanna Cook MD Work Phone: [facility] 09-20-2024 15:34-0400 SaO2% (BldA) [Mass fraction] 97 % Giovanna Cook MD Work Phone: [facility] 09-20-2024 15:34-0400 Systolic blood pressure 135 mm[Hg] Giovanna Cook MD Work Phone: [facility] 04-19-2024 16:23-0500 Body height 177.8 cm Heriberto Davalos DO Work Phone: [facility] 04-19-2024 16:23-0500 Body mass index (BMI) [Ratio] 30.99 kg/m2 Heriberto Davalos DO Work Phone: [facility] 04-19-2024 16:23-0500 Body temperature 97.3 [degF] Heriberto Davalos DO Work Phone: [facility] 04-19-2024 16:23-0500 Body weight 97.98 kg Heriberto Davalos DO Work Phone: [facility] 04-19-2024 16:23-0500 Diastolic blood pressure 82 mm[Hg] Heriberto Davalos DO Work Phone: [facility] 04-19-2024 16:23-0500 Heart rate 77 /min Heriberto Davalos DO Work Phone: [facility] 04-19-2024 16:23-0500 Systolic blood pressure 155 mm[Hg] Heriberto Davalos DO Work Phone: [facility] 03-03-2024 16:05-0500 Body height 177.8 cm Heriberto Davalos DO Work Phone: [facility] 03-03-2024 16:05-0500 Body mass index (BMI) [Ratio] 31.08 kg/m2 Heriberto Davalos DO Work Phone: [facility] 03-03-2024 16:05-0500 Body temperature 97.2 [degF] Heriberto Davalos DO Work Phone: [facility] 03-03-2024 16:05-0500 Body weight 98.25 kg Heriberto Davalos DO Work Phone: [facility] 03-03-2024 16:05-0500 Diastolic blood pressure 73 mm[Hg] Heriberto Davalos DO Work Phone: [facility] 03-03-2024 16:05-0500 Heart rate 84 /min Heriberto Davalos DO Work Phone: [facility] 03-03-2024 16:05-0500 Systolic blood pressure 118 mm[Hg] Heriberto Davalos DO Work Phone: [facility] 02-13-2024 15:48-0500 Body height 177.8 cm Goyo Snider MD Work Phone: [facility] 02-13-2024 15:48-0500 Body mass index (BMI) [Ratio] 30.75 kg/m2 Goyo Snider MD Work Phone: [facility] 02-13-2024 15:48-0500 Body weight 97.21 kg Goyo Snider MD Work Phone: [facility] 02-07-2024 16:00-0500 Body temperature 98.1 [degF] Phillip Dumont DO Work Phone: [facility] 02-07-2024 16:00-0500 Diastolic blood pressure 87 mm[Hg] Phillip Dumont DO Work Phone: [facility] 02-07-2024 16:00-0500 Heart rate 87 /min Phillip Dumont DO Work Phone: [facility] 02-07-2024 16:00-0500 Respiratory rate 18 /min Phillip Dumont DO Work Phone: [facility] 02-07-2024 16:00-0500 SaO2% (BldA) [Mass fraction] 99 % Phillip Dumont DO Work Phone: [facility] 02-07-2024 16:00-0500 Systolic blood pressure 162 mm[Hg] Phillip Dumont DO Work Phone: [facility] 02-07-2024 13:41-0500 Body height 177.8 cm Phillip Dumont DO Work Phone: [facility] 02-07-2024 13:41-0500 Body mass index (BMI) [Ratio] 29.41 kg/m2 Phillip Dumont DO Work Phone: [facility] 02-07-2024 13:41-0500 Body weight 92.99 kg Phillip Dumont DO Work Phone: [facility] 12-10-2023 15:40-0400 Body height 177.8 cm Mahesh [place] ENVIRONMENTAL PROGRAMS SPECIALIST-TECHNICAL PROPOSAL WRITER Work Phone: [facility] 12-10-2023 15:40-0400 Body mass index (BMI) [Ratio] 30.85 kg/m2 Mahesh [place] ENVIRONMENTAL PROGRAMS SPECIALIST-TECHNICAL PROPOSAL WRITER Work Phone: [facility] 12-10-2023 15:40-0400 Body weight 97.52 kg Mahesh [place] ENVIRONMENTAL PROGRAMS SPECIALIST-TECHNICAL PROPOSAL WRITER Work Phone: [facility] 12-10-2023 15:40-0400 Diastolic blood pressure 92 mm[Hg] Mahesh [place] ENVIRONMENTAL PROGRAMS SPECIALIST-TECHNICAL PROPOSAL WRITER Work Phone: [facility] 12-10-2023 15:40-0400 Heart rate 82 /min Mahesh [place] ENVIRONMENTAL PROGRAMS SPECIALIST-TECHNICAL PROPOSAL WRITER Work Phone: [facility] 12-10-2023 15:40-0400 Systolic blood pressure 165 mm[Hg] Mahesh Santos ENVIRONMENTAL PROGRAMS SPECIALIST-TECHNICAL PROPOSAL WRITER Work Phone: [facility] 11-25-2023 16:15-0400 Body height 177.8 cm Heriberto Davalos DO Work Phone: [facility] 11-25-2023 16:15-0400 Body mass index (BMI) [Ratio] 31.14 kg/m2 Heriberto Davalos DO Work Phone: [facility] 11-25-2023 16:15-0400 Body temperature 97.2 [degF] Heriberto Davalos DO Work Phone: [facility] 11-25-2023 16:15-0400 Body weight 98.43 kg Heriberto Davalos DO Work Phone: [facility] 11-25-2023 16:15-0400 Diastolic blood pressure 68 mm[Hg] Heriberto Davalos DO Work Phone: [facility] 11-25-2023 16:15-0400 Heart rate 83 /min Heriberto Davalos DO Work Phone: [facility] 11-25-2023 16:15-0400 Systolic blood pressure 110 mm[Hg] Heriberto Davalos DO Work Phone: [facility] 11-12-2023 15:30-0400 Body height 177.8 cm Goyo Snider MD Work Phone: [facility] 11-12-2023 15:30-0400 Body mass index (BMI) [Ratio] 30.29 kg/m2 Goyo Snider MD Work Phone: [facility] 11-12-2023 15:30-0400 Body weight 95.75 kg Goyo Snider MD Work Phone: [facility] 11-11-2023 09:27-0400 Body height 177.8 cm Heriberto Davalos DO Work Phone: [facility] 11-11-2023 09:27-0400 Body mass index (BMI) [Ratio] 30.13 kg/m2 Heriberto Davalos DO Work Phone: [facility] 11-11-2023 09:27-0400 Body temperature 97.81 [degF] Heriberto Kingens DO Work Phone: [facility] 11-11-2023 09:27-0400 Body weight 95.25 kg Heriberto Davalos DO Work Phone: [facility] 11-11-2023 09:27-0400 Diastolic blood pressure 70 mm[Hg] Heriberto Davalos DO Work Phone: [facility] 11-11-2023 09:27-0400 Heart rate 79 /min Heriberto Anoop DO Work Phone: [facility] 11-11-2023 09:27-0400 Systolic blood pressure 105 mm[Hg] Heriberto Kingens DO Work Phone: [facility] 10-28-2023 16:02-0400 Body height 177.8 cm Heriberto Kingens DO Work Phone: [facility] 10-28-2023 16:02-0400 Body mass index (BMI) [Ratio] 32.43 kg/m2 Heriberto Davalos DO Work Phone: [facility] 10-28-2023 16:02-0400 Body temperature 98.6 [degF] Heriberto Davalos DO Work Phone: [facility] 10-28-2023 16:02-0400 Body weight 102.51 kg Heriberto Davalos DO Work Phone: [facility] 10-28-2023 16:02-0400 Diastolic blood pressure 76 mm[Hg] Heriberto Davalos DO Work Phone: [facility] 10-28-2023 16:02-0400 Heart rate 92 /min Heriberto Davalos DO Work Phone: [facility] 10-28-2023 16:02-0400 Systolic blood pressure 117 mm[Hg] Heriberto Davalos DO Work Phone: [facility] 10-27-2023 16:00-0400 Diastolic blood pressure 74 mm[Hg] Phillip Bernal MD [facility] 10-27-2023 16:00-0400 Heart rate 98 /min Phillip Bernal MD [facility] 10-27-2023 16:00-0400 Respiratory rate 17 /min Phillip Bernal MD [facility] 10-27-2023 16:00-0400 SaO2% (BldA) [Mass fraction] 99 % Phillip Bernal MD [facility] 10-27-2023 16:00-0400 Systolic blood pressure 155 mm[Hg] Phillip Bernal MD [facility] 10-27-2023 11:46-0400 Body height 177.8 cm Phillip Bernal MD [facility] 10-27-2023 11:46-0400 Body mass index (BMI) [Ratio] 31.57 kg/m2 Phillip Bernal MD [facility] 10-27-2023 11:46-0400 Body temperature 97.7 [degF] Phillip Bernal MD [facility] 10-27-2023 11:46-0400 Body weight 99.79 kg Phillip Bernal MD [facility] 07-23-2023 16:02-0400 Body height 177.8 cm Heriberto Davalos DO Work Phone: [facility] 07-23-2023 16:02-0400 Body mass index (BMI) [Ratio] 32.28 kg/m2 Heriberto Davalos DO Work Phone: [facility] 07-23-2023 16:02-0400 Body temperature 98.01 [degF] Heriberto Davalos DO Work Phone: [facility] 07-23-2023 16:02-0400 Body weight 102.06 kg Heriberto Davalos DO Work Phone: [facility] 07-23-2023 16:02-0400 Diastolic blood pressure 66 mm[Hg] Heriberto Davalos DO Work Phone: [facility] 07-23-2023 16:02-0400 Heart rate 100 /min Heriberto Davalos DO Work Phone: [facility] 07-23-2023 16:02-0400 Systolic blood pressure 97 mm[Hg] Heriberto Davalos DO Work Phone: [facility] 04-23-2023 16:03-0500 Body height 177.8 cm Heriberto Davalos DO Work Phone: [facility] 04-23-2023 16:03-0500 Body mass index (BMI) [Ratio] 34.58 kg/m2 Heriberto Davalos DO Work Phone: [facility] 04-23-2023 16:03-0500 Body temperature 98.01 [degF] Heriberto Davalos DO Work Phone: [facility] 04-23-2023 16:03-0500 Body weight 109.32 kg Heriberto Davalos DO Work Phone: [facility] 04-23-2023 16:03-0500 Diastolic blood pressure 79 mm[Hg] Heriberto Davalos DO Work Phone: [facility] 04-23-2023 16:03-0500 Heart rate 76 /min Heriberto Davalos DO Work Phone: [facility] 04-23-2023 16:03-0500 Systolic blood pressure 115 mm[Hg] Heriberto Davalos DO Work Phone: [facility] 03-25-2023 15:56-0500 Body height 177.8 cm Heriberto Davalos DO Work Phone: [facility] 03-25-2023 15:56-0500 Body mass index (BMI) [Ratio] 35.3 kg/m2 Heriberto Davalos DO Work Phone: [facility] 03-25-2023 15:56-0500 Body temperature 98.01 [degF] Heriberto Davalos DO Work Phone: [facility] 03-25-2023 15:56-0500 Body weight 111.58 kg Heriberto Davalos DO Work Phone: [facility] 03-25-2023 15:56-0500 Diastolic blood pressure 80 mm[Hg] Heriberto Davalos DO Work Phone: [facility] 03-25-2023 15:56-0500 Heart rate 81 /min Heriberto Davalos DO Work Phone: [facility] 03-25-2023 15:56-0500 Systolic blood pressure 124 mm[Hg] Heriberto Davalos DO Work Phone: [facility] 03-04-2023 16:07-0500 Body height 177.8 cm Heriberto Davalos DO Work Phone: [facility] 03-04-2023 16:07-0500 Body mass index (BMI) [Ratio] 35.58 kg/m2 Heriberto Davalos DO Work Phone: [facility] 03-04-2023 16:07-0500 Body temperature 97.81 [degF] Heriberto Davalos DO Work Phone: [facility] 03-04-2023 16:07-0500 Body weight 112.49 kg Heriberto Davalos DO Work Phone: [facility] 03-04-2023 16:07-0500 Diastolic blood pressure 83 mm[Hg] Heriberto Davalos DO Work Phone: [facility] 03-04-2023 16:07-0500 Heart rate 85 /min Heriberto Davalos DO Work Phone: [facility] 03-04-2023 16:07-0500 Systolic blood pressure 138 mm[Hg] Heriberto Davalos DO Work Phone: [facility] 12-23-2022 15:41-0500 Body height 177.8 cm Phillip Bernal MD Work Phone: [facility] 12-23-2022 15:41-0500 Body mass index (BMI) [Ratio] 36.45 kg/m2 Phillip Bernal MD Work Phone: [facility] 12-23-2022 15:41-0500 Body weight 115.21 kg Phillip Bernal MD Work Phone: [facility] 12-23-2022 15:41-0500 Diastolic blood pressure 82 mm[Hg] Phillip Bernal MD Work Phone: [facility] 12-23-2022 15:41-0500 Heart rate 96 /min Phillip Bernal MD Work Phone: [facility] 12-23-2022 15:41-0500 Systolic blood pressure 120 mm[Hg] Phillip Bernal MD Work Phone: [facility] 07-03-2022 16:25-0400 Body height 177.8 cm Phillip Bernal Work Phone: [facility] DO Work Phone: 07-03-2022 16:25-0400 Body mass index (BMI) [Ratio] 36.3 kg/m2 Phillip Bernal Work Phone: [facility] DO Work Phone: 07-03-2022 16:25-0400 Body surface area Derived from formula 2.31 m2 Phillip Bernal Work Phone: [facility] DO Work Phone: 07-03-2022 16:25-0400 Body temperature 98 [degF] Phillip Bernal Work Phone: [facility] DO Work Phone: 07-03-2022 16:25-0400 Body weight 114.76 kg Phillip Bernal Work Phone: [facility] DO Work Phone: 07-03-2022 16:25-0400 Diastolic blood pressure 80 mm[Hg] Phillip Bernal Work Phone: [facility] DO Work Phone: 07-03-2022 16:25-0400 Heart rate 77 /min Phillip Bernal Work Phone: [facility] DO Work Phone: 07-03-2022 16:25-0400 Systolic blood pressure 120 mm[Hg] Phillip Bernal Work Phone: [facility] DO Work Phone: 12-26-2021 16:27-0500 Body height 177.8 cm Phillip Bernal Work Phone: [facility] Work Phone: 12-26-2021 16:27-0500 Body mass index (BMI) [Ratio] 36.45 kg/m2 Phillip Bernal Work Phone: [facility] Work Phone: 12-26-2021 16:27-0500 Body surface area Derived from formula 2.31 m2 Phillip Bernal Work Phone: [facility] Work Phone: 12-26-2021 16:27-0500 Body weight 115.21 kg Phillip Bernal Work Phone: [facility] Work Phone: 12-26-2021 16:27-0500 Diastolic blood pressure 64 mm[Hg] Phillip Bernal Work Phone: [facility] Work Phone: 12-26-2021 16:27-0500 Heart rate 88 /min Phillip Bernal Work Phone: [facility] Work Phone: 12-26-2021 16:27-0500 Systolic blood pressure 132 mm[Hg] Phillip Bernal Work Phone: [facility] Work Phone: 12-06-2021 14:41-0400 Body height 177.8 cm Phillip Bernal Work Phone: [facility] Work Phone: 12-06-2021 14:41-0400 Body mass index (BMI) [Ratio] 36.59 kg/m2 Phillip Bernal Work Phone: [facility] Work Phone: 12-06-2021 14:41-0400 Body surface area Derived from formula 2.31 m2 Phillip Bernal Work Phone: [facility] Work Phone: 12-06-2021 14:41-0400 Body weight 115.67 kg Phillip Bernal Work Phone: [facility] Work Phone: 12-06-2021 14:41-0400 Diastolic blood pressure 70 mm[Hg] Phillip Bernal Work Phone: [facility] Work Phone: 12-06-2021 14:41-0400 Heart rate 80 /min Phillip Bernal Work Phone: [facility] Work Phone: 12-06-2021 14:41-0400 Systolic blood pressure 116 mm[Hg] Phillip Bernal Work Phone: [facility] Work Phone: 09-05-2021 15:58-0400 Body height 177.8 cm Phillip Bernal Work Phone: [facility] Work Phone: 09-05-2021 15:58-0400 Body mass index (BMI) [Ratio] 37.31 kg/m2 Phillip Bernal Work Phone: [facility] Work Phone: 09-05-2021 15:58-0400 Body surface area Derived from formula 2.33 m2 Phillip Bernal Work Phone: [facility] Work Phone: 09-05-2021 15:58-0400 Body weight 117.94 kg Phillip Bernal Work Phone: [facility] Work Phone: 09-05-2021 15:58-0400 Diastolic blood pressure 68 mm[Hg] Phillip Bernal Work Phone: [facility] Work Phone: 09-05-2021 15:58-0400 Heart rate 88 /min Phillip Bernal Work Phone: [facility] Work Phone: 09-05-2021 15:58-0400 Systolic blood pressure 128 mm[Hg] Phillip Bernal Work Phone: [facility] Work Phone: 06-20-2021 15:54-0400 Body height 177.8 cm Phillip Bernal Work Phone: [facility] DO Work Phone: 06-20-2021 15:54-0400 Body mass index (BMI) [Ratio] 37.16 kg/m2 Phillip Bernal Work Phone: [facility] DO Work Phone: 06-20-2021 15:54-0400 Body surface area Derived from formula 2.33 m2 Phillip Bernal Work Phone: [facility] DO Work Phone: 06-20-2021 15:54-0400 Body temperature 97.4 [degF] Phillip Bernal Work Phone: [facility] DO Work Phone: 06-20-2021 15:54-0400 Body weight 117.48 kg Phillip Bernal Work Phone: [facility] DO Work Phone: 06-20-2021 15:54-0400 Diastolic blood pressure 62 mm[Hg] Phillip Bernal Work Phone: [facility] DO Work Phone: 06-20-2021 15:54-0400 Heart rate 80 /min Phillip Bernal Work Phone: [facility] DO Work Phone: 06-20-2021 15:54-0400 SaO2% (BldA) [Mass fraction] 96 % Phillip Bernal Work Phone: [facility] DO Work Phone: 06-20-2021 15:54-0400 Systolic blood pressure 112 mm[Hg] Phillip Bernal Work Phone: [facility] DO Work Phone: 05-23-2021 16:08-0400 Body height 177.8 cm Phillip Bernal Work Phone: [facility] Work Phone: 05-23-2021 16:08-0400 Body mass index (BMI) [Ratio] 37.31 kg/m2 Phillip Bernal Work Phone: [facility] Work Phone: 05-23-2021 16:08-0400 Body surface area Derived from formula 2.33 m2 Phillip Bernal Work Phone: [facility] Work Phone: 05-23-2021 16:08-0400 Body weight 117.94 kg Phillip Bernal Work Phone: [facility] Work Phone: 05-23-2021 16:08-0400 Diastolic blood pressure 64 mm[Hg] Phillip Bernal Work Phone: [facility] Work Phone: 05-23-2021 16:08-0400 Heart rate 80 /min Phillip Bernal Work Phone: [facility] Work Phone: 05-23-2021 16:08-0400 Systolic blood pressure 114 mm[Hg] Phillip Bernal Work Phone: [facility] Work Phone: 03-02-2021 16:24-0500 Body height 177.8 cm Phillip Bernal [facility] Phone: [facility] [place] Work Phone: 03-02-2021 16:24-0500 Body mass index (BMI) [Ratio] 36.45 kg/m2 Phillip Bernal Work Phone: [facility] [place] Work Phone: 03-02-2021 16:24-0500 Body surface area Derived from formula 2.31 m2 Phillip Bernal Work Phone: [facility] [place] Work Phone: 03-02-2021 16:24-0500 Body weight 115.21 kg Phillip Bernal Work Phone: [facility] [place] Work Phone: 11-30-2020 15:56-0400 Body height 180.34 cm Phillip Bernal Work Phone: [facility] DO Work Phone: 11-30-2020 15:56-0400 Body mass index (BMI) [Ratio] 35.84 kg/m2 Phillip Bernal Work Phone: [facility] DO Work Phone: 11-30-2020 15:56-0400 Body surface area Derived from formula 2.35 m2 Phillip Bernal Work Phone: [facility] DO Work Phone: 11-30-2020 15:56-0400 Body temperature 97.2 [degF] Phillip Bernal Work Phone: [facility] DO Work Phone: 11-30-2020 15:56-0400 Body weight 116.58 kg Phillip Bernal Work Phone: [facility] DO Work Phone: 11-30-2020 15:56-0400 Diastolic blood pressure 70 mm[Hg] Phillip Bernal Work Phone: [facility] DO Work Phone: 11-30-2020 15:56-0400 Heart rate 92 /min Phillip Bernal Work Phone: [facility] DO Work Phone: 11-30-2020 15:56-0400 Systolic blood pressure 110 mm[Hg] Phillip Bernal Work Phone: [facility] DO Work Phone: 11-30-2020 15:56-0400 0 1 Phillip Bernal Work Phone: [facility] DO Work Phone: Comment on above: PHQ-9 TS 11-22-2020 16:04-0400 Body height 180.34 cm Phillip Bernal Work Phone: [facility] Work Phone: 11-22-2020 16:04-0400 Body mass index (BMI) [Ratio] 35.57 kg/m2 Phillip Bernal Work Phone: [facility] Work Phone: 11-22-2020 16:04-0400 Body surface area Derived from formula 2.34 m2 Phillip Bernal Work Phone: [facility] Work Phone: 11-22-2020 16:04-0400 Body weight 115.67 kg Phillip Bernal Work Phone: [facility] Work Phone: 11-22-2020 16:04-0400 Diastolic blood pressure 64 mm[Hg] Phillip Bernal Work Phone: [facility] Work Phone: 11-22-2020 16:04-0400 Heart rate 84 /min Phillip Gomez Dolores Work Phone: [facility] Work Phone: 11-22-2020 16:04-0400 Systolic blood pressure 116 mm[Hg] Phillip Gomez Dolores Work Phone: [facility] Work Phone: 12-06-2019 18:00-0400 BMI (Body Mass Index) 35.57 kg/m2 Marco Otoole [facility] Work Phone: 12-06-2019 18:00-0400 Body weight 115.67 kg Marco Otoole [facility] Work Phone: 12-06-2019 18:00-0400 BSA (Body Surface Area) 2.34 m2 Marco Otoole [facility] Work Phone: 12-06-2019 18:00-0400 Height 180.34 cm Marco Otoole [facility] Work Phone: 10-06-2019 18:03-0400 BMI (Body Mass Index) 35.98 kg/m2 Rudi Abdi [facility] Work Phone: 10-06-2019 18:03-0400 Body weight 117.03 kg Rudi Trin[facility] Work Phone: 10-06-2019 18:03-0400 BP Diastolic 72 mm[Hg] Rudi Parsonskham [facility] Work Phone: 10-06-2019 18:03-0400 BP Systolic 118 mm[Hg] Rudi Parsonskham [facility] Work Phone: 10-06-2019 18:03-0400 BSA (Body Surface Area) 2.35 m2 Rudi Chavezam [facility] Work Phone: 10-06-2019 18:03-0400 Height 180.34 cm Rudi Chavezam [facility] Work Phone: 10-06-2019 18:03-0400 Pulse (Heart Rate) 80 /min Rudi Chavezam [facility] Work Phone: Encounters Encounter Date Encounter Type Care Provider Facility Start: 11-22-2024 ambulatory Efewfeltonbe Oleghe OLS Fa cility:[facility] Start: 11-15-2024 ambulatory Efewfeltonbe Olee OLS Fa cility:[facility] Start: 11-08-2024 ambulatory Efewongbe Oleghe OLS Fa cility:[facility] Start: 11-04-2024 Non-patient / Non-visit Dr. Wes Arellano MD [facility] Work Phone: Start: 11-03-2024 Non-patient / Non-visit Dr. Wes Arellano MD [facility] Work Phone: Start: 11-03-2024 Non-patient / Non-visit Teressa Davey [facility] Start: 11-02-2024 Non-patient / Non-visit Dr. Wes Arellano MD [facility] Work Phone: Start: 11-01-2024 Non-patient / Non-visit Dr. Wes Arellano MD [facility] Work Phone: Start: 10-31-2024 Non-patient / Non-visit Dr. Wes Arellano MD [facility] Work Phone: Start: 10-30-2024 Non-patient / Non-visit Dr. Liset Mak MD [facility] Work Phone: Start: 10-29-2024 ambulatory Mayco Fenton Facility:[facility] Start: 10-29-2024 End: 11-04-2024 Evaluation and management of inpatient Dr. Ruslan Adams DO -Intensive Care Unit Work Phone: Start: 09-22-2024 End: 09-22-[address] Mayco Fenton MD Work Phone: -Laboratory Specimen Start: 09-22-2024 End: 09-22-[address] Javy Lynch DP -Laboratory Specimen Work Phone: Start: 09-22-2024 End: 09-22-2024 ambulatory Javy Lynch Facility:[facility] Start: 09-20-2024 End: 09-20-2024 Office outpatient visit 25 minutes Giovanna Cook MD Work Phone: [facility] Comment on above: Hereditary hemochrom atosis (Primary Dx); Large granular lymphocytic leukemia (Multi); Ankylosing spondylitis of thoracolumbar region (Multi); Recurrent acute deep vein thrombosis (DVT) of both lower extremities; Type 2 diabetes mellitus without complication, without long-term current use of insulin; Benign essential hypertension; Mixed hyperlipidemia Start: 09-20-2024 End: 09-20-2024 ambulatory GIOVANNA COOK [facility] Start: 09-20-2024 Encounter for genera l adult medical examination without abnormal findings Mayco Fenton [facility] Start: 09-16-2024 End: 09-16-[address] [facility] Start: 09-09-2024 End: 09-09-[address] Mayco Fenton MD Work Phone: -Laboratory [facility] Start: 09-09-2024 End: 09-09-[address] Mayco Fenton MD -Laboratory [place] [facility] Start: 09-09-2024 End: 09-09-2024 ambulatory Mayco Fenton Facility:[facility] Start: 06-22-2024 End: 06-22-2024 Patient encounter procedure Ariel GUSTAFSON [facility] Work Phone: Start: 06-22-2024 End: 06-22-2024 ambulatory Ariel GUSTAFSON Facility:[facility] Start: 04-19-2024 End: 04-19-2024 Office outpatient visit 15 minutes Heriberto Davalos DO Work Phone: [facility] Comment on above: Neuropathy (Primary Dx); Type 2 diabetes mellitus without complication, without long-term current use of insulin (Multi); Benign essential hypertension; Stage 3b chronic kidney disease (Multi); Type 2 diabetes mellitus with stage 3b chronic kidney disease, without long-term current use of insulin (Multi); Mixed hyperlipidemia; Thyroid disorder screening; Hyperuricemia; Prostate cancer screening Start: 04-19-2024 End: 04-19-2024 ambulatory [facility] Start: 03-03-2024 End: 03-03-2024 Office outpatient visit 15 minutes Heriberto Davalos DO Work Phone: [facility] Comment on above: Neuropathy (Primary Dx); Hypomagnesemia Start: 03-03-2024 End: 03-03-2024 ambulatory [facility] Start: 02-13-2024 End: 02-13-2024 Office outpatient visit 15 minutes Goyo Snider MD Work Phone: [facility] Comment on above: Thyroid nodule (Prim bud Dx) Start: 02-13-2024 End: 02-13-2024 ambulatory GOYO Johnson LIZETTE [facility] Ambulatory Start: 02-07-2024 End: 02-07-2024 Emergency department patient visit Pihllip Dumont DO Work Phone: [facility] Comment on above: Viral upper respirat ory illness (Primary Dx) Start: 02-03-2024 End: 02-03-2024 ambulatory [facility] Start: 01-21-2024 End: 01-21-2024 Subsequent hospital visit by physician Cooper [id number] Ultrasound [facility] Comment on above: Thyroid nodule Start: 01-21-2024 End: 01-21-2024 [facility] Start: 12-10-2023 End: 12-10-2023 Office outpatient new 45 minutes [facility] ENVIRONMENTAL PROGRAMS SPECIALIST-TECHNICAL PROPOSAL WRITER Work Phone: [facility] 1 Comment on above: Nephrolithiasis Start: 12-10-2023 End: 12-10-2023 ambulatory [facility] Ambulatory Start: 11-25-2023 End: 11-25-2023 Office outpatient visit 15 minutes Heriberto Davalos DO Work Phone: [facility] Comment on above: Benign essential hyp ertension (Primary Dx); Type 2 diabetes mellitus with stage 3b chronic kidney disease, without long-term current use of insulin (Multi); Hyperuricemia; Nephrolithiasis; Thyroid nodule Start: 11-25-2023 End: 11-25-2023 ambulatory [facility] Start: 11-13-2023 End: 11-13-2023 ambulatory [facility] Start: 11-13-2023 End: 11-13-2023 Subsequent hospital visit by physician Cooper [id number] X-Ray 1 [facility] Comment on above: Nephrolithiasis Start: 11-12-2023 End: 11-12-2023 Office consultation new/estab patient 60 min Goyo Snider MD Work Phone: [facility] Comment on above: Thyroid nodule Start: 11-12-2023 End: 11-12-2023 ambulatory GOYO [facility] Ambulatory Start: 11-11-2023 End: 11-11-2023 Office outpatient visit 15 minutes Heriberto Davalos DO Work Phone: [facility] Comment on above: Nephrolithiasis (Jenny alessandra Dx); Benign essential hypertension; Stage 3b chronic kidney disease (Multi); Type 2 diabetes mellitus with stage 3b chronic kidney disease, without long-term current use of insulin (Multi); Left eye pain Start: 11-11-2023 End: 11-11-[address] [facility] Ambulatory Start: 10-28-2023 End: 10-28-2023 Office outpatient visit 25 minutes Heriberto Davalos DO Work Phone: [facility] Comment on above: Type 2 diabetes sana itus with stage 3b chronic kidney disease, without long-term current use of insulin (Multi) (Primary Dx); Benign essential hypertension; Stage 3b chronic kidney disease (Multi); Mixed hyperlipidemia; Hyperuricemia; Nephrolithiasis Start: 10-27-2023 End: 10-27-2023 Emergency department patient visit HERIBERTO DAVALOS [facility] Comment on above: Nephrolithiasis ([facility] alessandra Dx) Start: 08-02-2023 End: 08-02-2023 Subsequent hospital visit by physician Marty Ultrasound 1 [facility] Comment on above: Multinodular goiter Start: 07-23-2023 End: 07-23-2023 Office outpatient visit 25 minutes Heriberto Davalos DO Work Phone: [facility] Comment on above: Type 2 diabetes sana itus with stage 3b chronic kidney disease, without long-term current use of insulin (Multi) (Primary Dx); Benign essential hypertension; Multinodular goiter; Prostate cancer screening; Thyroid disorder screening; Mixed hyperlipidemia; Hyperuricemia; Stage 3b chronic kidney disease (Multi) Start: 04-23-2023 End: 04-23-2023 Office outpatient visit 15 minutes Heriberto Davalos DO Work Phone: [facility] Comment on above: Type 2 diabetes sana itus with stage 3b chronic kidney disease, without long-term current use of insulin (CMS/HCC) (Primary Dx); Ankylosing spondylitis of thoracolumbar region (CMS/HCC) Start: 03-25-2023 End: 03-25-2023 Office outpatient visit 15 minutes Heriberto Davalos DO Work Phone: [facility] Comment on above: Type 2 diabetes sana itus with stage 3b chronic kidney disease, without long-term current use of insulin (CMS/HCC) (Primary Dx); Neck pain on left side; Benign essential hypertension Start: 03-04-2023 End: 03-04-2023 Office outpatient visit 15 minutes Heriberto Davalos DO Work Phone: [facility] Comment on above: Type 2 diabetes saan itus with diabetic polyneuropathy, without long-term current use of insulin ([facility]) (Primary Dx); Ankylosing spondylitis of thoracolumbar region ([facility]); Benign essential hypertension; Asymptomatic hyperuricemia; Thyroid disorder screening; Neuropathy Start: 01-31-2023 End: 02-01-2023 ambulatory TRISHA SIMONS MD Facility:[facility] Start: 12-23-2022 End: 12-23-2022 Office outpatient visit 25 minutes Phillip Bernal MD Work Phone: [facility] Comment on above: Ankylosing spondylit is of thoracolumbar region ([facility]) (Primary Dx); Benign essential hypertension; Asymptomatic hyperuricemia; Type 2 diabetes mellitus with other specified complication, without long-term current use of insulin ([facility]); Hyperlipidemia, unspecified hyperlipidemia type Start: 12-23-2022 Patient encounter status Cristin Davalos DO Work Phone: [facility] Work Phone: Start: 11-03-2022 Rx Renewal Phillip Bernal Work Phone: [facility] DO Work Phone: Start: 10-14-2022 AUDIT Phillip Bernal Work Phone: [facility] DO Work Phone: Start: 09-19-2022 Chart Update Phillip Bernal Work Phone: [facility] DO Work Phone: Start: 09-18-2022 Chart Update Phillip Bernal Work Phone: [facility] DO Work Phone: Start: 09-18-[address] Phillip Bernal Jr Facility:[id number] Start: 09-18-[address] Phillip Bernal Jr Facility:[id number] Start: 09-05-2022 Rx Renewal Phillip Bernal Work Phone: [facility] DO Work Phone: Start: 07-17-2022 Rx Renewal Phillip Bernal Work Phone: [facility] DO Work Phone: Start: 06-27-2022 Chart Update Phillip Bernal Work Phone: [facility] DO Work Phone: Start: 05-27-2022 AUDIT Phillip Bernal Work Phone: [facility] DO Work Phone: Start: 05-17-2022 Rx Renewal Phillip Bernal Work Phone: [facility] DO Work Phone: Start: 04-24-2022 Rx Renewal Phillip Bernal Work Phone: [facility] DO Work Phone: Start: 02-05-2022 [facility] Work Phone: Start: 01-05-2022 Chart Update Phillip Bernal Work Phone: [facility] DO Work Phone: Start: 12-31-2021 Rx Renewal Phillip Bernal Work Phone: [facility] DO Work Phone: Start: 12-26-2021 Office outpatient vi sit 25 minutes Phillip Bernal Work Phone: [facility] Work Phone: Start: 12-21-2021 Chart Update Phillip Bernal Work Phone: [facility] Work Phone: Start: 12-20-[address] Phillip Bernal Facility:[id number] Start: 12-10-2021 Rx Renewal Phillip Bernal Work Phone: [facility] Work Phone: Start: 12-06-2021 AUDIT Phillip Bernal Work Phone: [facility] Work Phone: Start: 09-05-2021 FUV, Provider: Rudi Abdi, Status: Pen, Time: 4:00 PM Phillip Bernal Work Phone: [facility] Work Phone: Start: 09-05-2021 Office outpatient vi sit 25 minutes Phillip Bernal Work Phone: [facility] Work Phone: Start: 09-04-2021 AUDIT Phillip Bernal Work Phone: [facility] Work Phone: Start: 08-26-2021 Rx Renewal Phillip Bernal Work Phone: [facility] DO Work Phone: Start: 08-13-2021 Rx Renewal Phillip Bernal Work Phone: [facility] DO Work Phone: Start: 07-29-2021 Rx Renewal Phillip Bernal Work Phone: [facility] Work Phone: Start: 07-03-2021 Rx Renewal Phillip Bernal Work Phone: [facility] DO Work Phone: Start: 06-20-2021 FUV, Provider: Phillip Bernal, Status: Pen, Time: 4:00 PM Phillip Bernal Work Phone: [facility] DO Work Phone: Start: 06-20-2021 Office outpatient vi sit 15 minutes Phillip Bernal Work Phone: [facility] DO Work Phone: Start: 06-19-2021 Chart Update Phillip Bernal Work Phone: [facility] DO Work Phone: Start: 06-05-2021 Rx Renewal Phillip Bernal Work Phone: [facility] DO Work Phone: Start: 05-23-2021 FUV, Provider: Rudi Abdi, Status: Pen, Time: 4:00 PM Phillip Bernal Work Phone: [facility] Work Phone: Start: 05-23-2021 Office outpatient vi sit 25 minutes Phillip Bernal Work Phone: [facility] Work Phone: Start: 05-22-2021 AUDIT Phillip Bernal Work Phone: [facility] Work Phone: Start: 05-15-2021 Rx Renewal Phillip Bernal Work Phone: [facility] Work Phone: Start: 04-30-2021 Rx Renewal Phillip Bernal Work Phone: [facility] DO Work Phone: Start: 04-13-2021 Patient encounter procedure Phillip Bernal Work Phone: [facility] [place] Work Phone: Start: 04-02-2021 Rx Renewal Phillip Bernal Work Phone: -[facility] DO Work Phone: Start: 03-02-2021 Patient encounter procedure [facility] Bern[facility] [place] Work Phone: Start: 02-04-2021 Rx Renewal Phillip Patricia Bernal Work Phone: [facility] DO Work Phone: Start: 01-26-2021 Rx Renewal Phillip Patricia Bernal Work Phone: [facility] DO Work Phone: Start: 11-30-2020 Office outpatient vi sit 25 minutes Phillip Bernal Work Phone: [facility] DO Work Phone: Start: 11-22-2020 FUV, Provider: Rudi Abdi, Status: Pen, Time: 4:00 PM Phillip Bernal Work Phone: [facility] Work Phone: Start: 11-22-2020 Office outpatient vi sit 25 minutes Phillip Bernal Work Phone: [facility] Work Phone: Start: 11-21-2020 AUDIT Phillip Patricia Dolores Work Phone: [facility] Work Phone: Start: 07-24-2020 Rx Renewal Phillip Bernal Work Phone: [facility] Work Phone: Start: 05-24-2020 Patient encounter procedure Rudi Abdi MD [id number] Work Phone: Start: 12-06-2019 Patient encounter procedure Marco Otoole [facility] [place] Work Phone: Start: 10-06-2019 Patient encounter procedure Rudi Abdi [facility] Work Phone: Start: 04-01-2019 Patient encounter procedure Rudi Trinidad [facility] Work Phone: Start: 12-04-2018 Patient encounter procedure Rudi Abdi [facility] Work Phone: Start: 10-01-2018 Patient encounter procedure Rudi Abdi [facility] Work Phone: Start: 04-02-2018 Patient encounter procedure Rudi Abdi [facility] Work Phone: Start: 12-18-2017 Patient encounter procedure Rudi Abdi [facility] Work Phone: Start: 09-16-2017 Patient encounter procedure Rudi Abdi [facility] Work Phone: Start: 06-11-2017 Patient encounter procedure Rudi Abdi [facility] Work Phone: Start: 06-06-2017 Ambulatory PROVIDER UNKNOWN Facili ty:[id number] Start: 05-23-2017 Ambulatory FLAQUITO ABIOSE Facility :[id number] Start: 05-19-2017 Ambulatory FLAQUITO ABIOSE Facility :[id number] Start: 05-02-2017 Patient encounter procedure Rudi Abdi [facility] Work Phone: Patient encounter status Phillip Bernal Work Phone: [facility] Work Phone: Procedures Date Procedure Procedure Detail Performing Clinician Start: 11-04-[address] Mayco Fenton MD Work Phone: Start: 10-30-[address] Mayco Fenton MD Work Phone: Start: 10-29-2024 Radex foot complete minimum [address] Mayco Fenton MD Work Phone: Start: 10-29-[address] Mayco Fenton MD Work Phone: Start: 10-29-[address] Macie Fenton MD Work Phone: Start: 10-29-2024 X-ray of foot, three or more views Dr. Mayco Fenton MD Work Phone: Start: 10-29-2024 Urnls dip stick/tabl et reagent auto microscopy Dr. Mayco Fenton MD Work Phone: Start: 10-29-[address] Mayco Fenton MD Work Phone: Start: 10-29-[address] Mayco Fenton MD Work Phone: Start: 10-29-[address] Mayco Fenton MD Work Phone: Start: 10-29-2024 Gram stain microscopy D sami Fenton MD Work Phone: Start: 10-29-2024 End: 10-29-2024 Microbial culture, routine Dr. Mayco paredes MD Work Phone: Start: 10-29-[address] Mayco Fenton MD Work Phone: [...] Phone: Start: 02-07-2024 Comprehensive metabolic panel Mayco C Voloshin DO Work Phone: Start: 02-07-2024 EXTRA TUBES Phillip Patricia Nhua hns DO Work Phone: Start: 02-07-2024 LAVENDER TOP Phillip Patricia Nuha hns DO Work Phone: Start: 02-07-2024 PST TOP Phillip Gomez Nuha hns DO Work Phone: Start: 02-07-2024 [...] Phone: Start: 10-28-2023 Hemoglobin glycosylated a1c Heriberto Fields Davalos DO Work Phone: Start: 10-27-2023 Ct [...] Heriberto Davalos DO Work Phone: Start: 03-06-2023 Lipid 1995 panel - S rl or Plasma Heriberto Davalos DO Work Phone: Start: 05-05-2020 Lipid 1995 panel - S rl or Plasma Phillip Bernal MD Work Phone: Start: 03-23-2020 Antibody screen Comment on above: Order Comment: CONSE RVATION CBN: NO Lyons: MAIN Transfusion Status: CONSERVATION Blood Bank service requested: TYPE AND SCREEN Comments To Phleb: PATIENT IN SDS Performed By: #### B [id number] #### Test performed at: [place] [id number] Start: 01-26-2020 Antibody screen Comment on above: Order Comment: Trans fusion Status: CONSERVATION Blood Bank service requested: TYPE AND SCREEN Comments To Phleb: pre-op in PAT Performed By: #### B [id number] #### Test performed at: [place] [address] Start: 10-05-2019 IO glucose, blood, f oscar [...] in detection of prostate cancer. Performed at: [facility] - [address] [place] [address] Performed By: #### ELANA CARVER #### [facility] Laboratory [address] [place] [address] Start: 11-24-2010 Total colonoscopy Phillip Bernal Work Phone: History of Inner Ear Surgery Rudi Abdi History of Spinal Arthrodesis Rudi Abdi Procedure on back Phillip francois Work Phone: Prosthetic arthropla sty of the hip Phillip Bernal Work Phone: Tonsillectomy Rudi Abdi Total colonoscopy Phillip francois Work Phone: Total replacement of hip Jam carolina Bernal Work Phone: Plan of Treatment Date Care Activity Detail Author Start: 07-20-2028 DTaP/Tdap/Td Vaccine s (3 - Td or Tdap) DTaP/Tdap/Td Vaccines (3 - Td or Tdap) [facility] Start: 09-19-2025 End: 09-19-2025 Patient encounter procedure 09/19/2025 4:40 PM EDT Office Visit [facility] [id number] [place] [address] Dr [address] [place] [address] Giovanna Cook [place] [id number] [place] [address] Dr [address] [place] [address] [facility] Start: 09-19-2025 End: 03-23-2026 CBC W Auto Differential panel - Blood CBC and Auto Differential Lab Routine Large granular lymphocytic leukemia (Multi) Hereditary hemochromatosis Expected: 09/19/2025, Expires: 03/23/2026 [facility] Service Area Work Phone: Comment on above: Expected: 09/19/2025 , Expires: 03/23/2026 Start: 09-19-2025 End: 03-23-2026 Comprehensive metabolic 2000 panel - Serum or Plasma Comprehensive metabolic panel Lab Routine Large granular lymphocytic leukemia (Multi) Expected: 09/19/2025 (Approximate), Expires: 03/23/2026 [facility] Work Phone: Comment on above: Expected: 09/19/2025 (Approximate), Expires: 03/23/2026 Start: 09-19-2025 End: 03-23-2026 Ferritin [Mass/volume] in Serum or Plasma Ferritin Lab Routine Large granular lymphocytic leukemia (Multi) Hereditary hemochromatosis Expected: 09/19/2025 (Approximate), Expires: 03/23/2026 [facility] Work Phone: Comment on above: Expected: 09/19/2025 (Approximate), Expires: 03/23/2026 Start: 09-19-2025 End: 03-23-2026 Iron and Iron binding capacity panel - Serum or Plasma Iron and TIBC Lab Routine Large granular lymphocytic leukemia (Multi) Hereditary hemochromatosis Expected: 09/19/2025, Expires: 03/23/2026 [facility] Work Phone: Comment on above: Expected: 09/19/2025 , Expires: 03/23/2026 Start: 04-13-2025 Lipid panel Lipid Panel [facility] Start: 12-31-2024 Screening for malign ant neoplasm of colon [facility] Start: 11-15-2024 Registered Referred Registered Refer red -[facility] - [facility] Start: 11-08-2024 Registered Referred Registered Refer red -[facility] - [facility] Start: 11-04-2024 Patient discharge [facility] Start: 11-02-2024 Referral to occupati onal therapist [facility] Start: 11-02-2024 [facility] Start: 11-02-2024 Referral to vascular surgeon [facility] Start: 11-02-2024 Consultation [facility] Start: 11-02-2024 Wound care [facility] Start: 11-02-2024 Consultation for treatment [facility] Start: 11-01-2024 Application, wound VAC [facility] Start: 10-31-2024 Referral for physica l therapy [facility] Start: 10-31-2024 [facility] Start: 10-31-2024 Consultation [facility] Start: 10-30-2024 [facility] Start: 10-30-2024 [facility] Start: 10-30-2024 Referral to master black belt [facility] Start: 10-30-2024 Care planning and problem solving actions [facility] Start: 10-29-2024 Following clinical pathway protocol [facility] Start: 10-29-2024 Cardiac monitoring [facility] Start: 10-29-2024 Care regimes management [facility] Start: 10-29-2024 Catheterization of vein [facility] Start: 10-29-2024 Notification of physician [facility] Start: 10-29-2024 Vital signs measurements [facility] Start: 10-29-2024 End: 10-29-2024 [facility] Start: 10-29-2024 Amputation of toe Amputation T oe/Foot (Left) [facility] Start: 10-29-2024 Bacterial nucleic ac id assay [facility] Start: 10-29-2024 End: 10-29-2024 [facility] Start: 10-29-2024 Admission procedure [facility] Start: 10-29-2024 Ankle brachial press ure index [facility] Start: 10-29-2024 Elevation of affecte d extremity [facility] Start: 10-29-2024 Fluoroscopic guidance O.R. Fluoro fo r C-Arm [facility] Start: 10-29-2024 X-ray of foot, two views Foot 2 View s [facility] Start: 10-29-2024 Hospital admission, emergency, from emergency room, medical nature [facility] Start: 10-29-2024 End: 10-29-2024 [facility] Start: 10-29-2024 Partial thromboplast in time, activated [facility] Start: 10-29-2024 Prothrombin time [facility] Start: 10-29-2024 Bacteria identified in Blood by Culture Blood Culture [facility] Start: 10-29-2024 Bacteria identified in Urine by Culture Urine Culture [facility] Start: 10-29-2024 Microscopic observat ion [Identifier] in Unspecified specimen by Gram stain [facility] Start: 10-29-2024 Wound Culture Wound Culture [facility] Start: 10-29-2024 Patient referral to dietitian [facility] Start: 10-18-2024 Influenza vaccination [facility] Start: 10-11-2024 End: 04-19-2025 Comprehensive metabolic 2000 panel - Serum or Plasma Comprehensive metabolic panel Lab Routine Mixed hyperlipidemia Expected: 10/11/2024 (Approximate), Expires: 04/19/2025 [facility] Work Phone: Comment on above: Expected: 10/11/2024 (Approximate), Expires: 04/19/2025 Start: 10-11-2024 End: 04-19-2025 Hemoglobin A1c/Hemoglobin.total in Blood Hemoglobin A1C Lab Routine Type 2 diabetes mellitus with stage 3b chronic kidney disease, without long-term current use of insulin (Multi) Expected: 10/11/2024 (Approximate), Expires: 04/19/2025 [facility] Service [facility] Work Phone: Comment on above: Expected: 10/11/2024 (Approximate), Expires: 04/19/2025 Start: 10-11-2024 End: 04-19-2025 Lipid 1996 panel - Serum or Plasma Lipid panel Lab Routine Mixed hyperlipidemia Expected: 10/11/2024 (Approximate), Expires: 04/19/2025 [facility] Work Phone: Comment on above: Expected: 10/11/2024 (Approximate), Expires: 04/19/2025 Start: 10-11-2024 End: 04-19-2025 Prostate specific Ag [Mass/volume] in Serum or Plasma Prostate Spec.Ag,Screen Lab Routine Prostate cancer screening Expected: 10/11/2024 (Approximate), Expires: 04/19/2025 [facility] Work Phone: Comment on above: Expected: 10/11/2024 (Approximate), Expires: 04/19/2025 Start: 10-11-2024 End: 04-19-2025 Serum Protein Electrophoresis + Immunofixation Serum Protein Electrophoresis + Immunofixation Lab Routine Neuropathy Expected: 10/11/2024 (Approximate), Expires: 04/19/2025 [facility] Work Phone: Comment on above: Expected: 10/11/2024 (Approximate), Expires: 04/19/2025 Start: 10-11-2024 End: 04-19-2025 TSH with reflex to Free T4 if abnormal TSH with reflex to Free T4 if abnormal Lab Routine Thyroid disorder screening Expected: 10/11/2024 (Approximate), Expires: 04/19/2025 [facility] Work Phone: Comment on above: Expected: 10/11/2024 (Approximate), Expires: 04/19/2025 Start: 10-11-2024 End: 04-19-2025 Urate [Mass/volume] in Serum or Plasma Uric acid Lab Routine Hyperuricemia Expected: 10/11/2024 (Approximate), Expires: 04/19/2025 [facility] Work Phone: Comment on above: Expected: 10/11/2024 (Approximate), Expires: 04/19/2025 Start: 09-20-2024 End: 09-20-2024 Patient encounter procedure 09/20/2024 3:40 PM EDT Office Visit [facility] [address] [facility] [place] [address] [place] [address] [facility] [place] [address] [facility] Start: 09-18-2024 Lipid panel Lipid Panel [facility] Start: 09-18-2024 Prostate specific antigen measurement PSA Prostate Cancer Screening [facility] Start: 08-27-2024 End: 08-27-2024 Patient encounter procedure 08/27/2024 3:45 PM EDT Office Visit [facility] [address] [place] [phone] [place] [address] [address] Department [place] [address] [facility] Start: 08-17-2024 End: 08-17-2024 Patient encounter procedure 08/17/2024 3:[address] [facility] [address] [place] [phone] [facility] Start: 08-17-2024 End: 02-15-2025 US Thyroid gland US thyroid Imaging Routine Thyroid nodule Expected: 08/17/2024, Expires: 02/15/2025 [facility] Service Area Work Phone: Comment on above: Expected: 08/17/2024 , Expires: 02/15/2025 Start: 07-11-2024 Hemoglobin A1c measurement Diabetes: Hemoglobin A1C [facility] Start: 04-19-2024 End: 04-19-2024 Patient encounter procedure 04/19/2024 4:00 PM EST Office Visit [facility] [address] [place] [address] [place] [address] [place] [address] [facility] Start: 03-21-2024 End: 10-27-2024 CBC W Auto Differential panel - Blood CBC and Auto Differential Lab Routine Benign essential hypertension Mixed hyperlipidemia Expected: 03/21/2024 (Approximate), Expires: 10/27/2024 [facility] Service Area Work Phone: Comment on above: Expected: 03/21/2024 (Approximate), Expires: 10/27/2024 Start: 03-21-2024 End: 10-27-2024 Comprehensive metabolic 2000 panel - Serum or Plasma Comprehensive metabolic panel Lab Routine Benign essential hypertension Mixed hyperlipidemia Expected: 03/21/2024 (Approximate), Expires: 10/27/2024 [facility] Work Phone: Comment on above: Expected: 03/21/2024 (Approximate), Expires: 10/27/2024 Start: 03-21-2024 End: 10-27-2024 Hemoglobin A1c/Hemoglobin.total in Blood Hemoglobin A1C Lab Routine Type 2 diabetes mellitus with stage 3b chronic kidney disease, without long-term current use of insulin (Multi) Expected: 03/21/2024 (Approximate), Expires: 10/27/2024 [facility] Work Phone: Comment on above: Expected: 03/21/2024 (Approximate), Expires: 10/27/2024 Start: 03-21-2024 End: 10-27-2024 Lipid 1996 panel - Serum or Plasma Lipid panel Lab Routine Mixed hyperlipidemia Expected: 03/21/2024 (Approximate), Expires: 10/27/2024 [facility] Work Phone: Comment on above: Expected: 03/21/2024 (Approximate), Expires: 10/27/2024 Start: 03-21-2024 End: 10-27-2024 Microalbumin/Creatinine [Mass Ratio] in Urine Albumin-Creatinine Ratio, Urine Random Lab Routine Type 2 diabetes mellitus with stage 3b chronic kidney disease, without long-term current use of insulin (Multi) Expected: 03/21/2024 (Approximate), Expires: 10/27/2024 [facility] Work Phone: Comment on above: Expected: 03/21/2024 (Approximate), Expires: 10/27/2024 Start: 03-21-2024 End: 10-27-2024 Urate [Mass/volume] in Serum or Plasma Uric acid Lab Routine Hyperuricemia Expected: 03/21/2024 (Approximate), Expires: 10/27/2024 [facility] Work Phone: Comment on above: Expected: 03/21/2024 (Approximate), Expires: 10/27/2024 Start: 03-17-2024 End: 03-17-2024 Patient encounter procedure 03/17/2024 3:30 PM EST Office Visit [address] [phone] Gideon Thompson MD [address] [place] [address], [address] [address] [place] [address] Start: 03-06-2024 Lipid panel Lipid Panel [facility] Start: 03-06-2024 Urine screening for protein Diabetes: Urine Protein Screening [facility] Start: 03-03-2024 End: 03-03-2024 Patient encounter procedure 03/03/2024 4:00 PM EST Office Visit [facility] [address] [place] [phone] [place] [address] [place] [address] [facility] Start: 03-03-2024 End: 03-03-2025 Cobalamin (Vitamin B12) [Mass/volume] in Serum or Plasma Vitamin B12 Lab Routine Neuropathy Expected: 03/03/2024 (Approximate), Expires: 03/03/2025 [facility] Work Phone: Comment on above: Expected: 03/03/2024 (Approximate), Expires: 03/03/2025 Start: 03-03-2024 End: 03-03-2025 Magnesium [Mass/volume] in Serum or Plasma Magnesium Lab Routine Hypomagnesemia Expected: 03/03/2024 (Approximate), Expires: 03/03/2025 [facility] Service Area Work Phone: Comment on above: Expected: 03/03/2024 (Approximate), Expires: 03/03/2025 Start: 02-13-2024 End: 02-13-2024 Patient encounter procedure [facility] Start: 02-03-2024 End: 02-03-2024 Patient encounter procedure 02/03/2024 1:00 PM EST Office Visit [address] [phone] Gideon Thompson MD [address] [place] [address], [address] [address] [place] [address] Start: 01-27-2024 Hemoglobin A1c measurement Diabetes: Hemoglobin A1C [facility] Start: 12-25-2023 End: 12-25-2023 Patient encounter procedure 12/25/2023 3:30 PM EST Office Visit [address] [phone] Gideon Thompson MD [address] [place] [address], [address] [address] [place] [address] Start: 12-25-2023 Yearly Adult Physical Yearly Adult P hysical [facility] Start: 11-26-2023 End: 11-26-2023 Patient encounter procedure 11/26/2023 9:30 AM EDT Office Visit [facility] [address] [facility] [address] [place] [phone] Mahesh Santos, ENVIRONMENTAL PROGRAMS SPECIALIST-TECHNICAL PROPOSAL WRITER [address] [place] [address] [facility] 1 Start: 11-25-2023 End: 11-25-2023 Patient encounter procedure 11/25/2023 4:00 PM EDT Office Visit [facility] [address] [place] [phone] [place] [address] [place] [address] [facility] Start: 11-12-2023 End: 11-12-2023 Patient encounter procedure 11/12/2023 3:30 PM EDT Office Visit [facility] [address] [place] [phone] [place] [address] [address] Department of Otolaryngology [place], [place] [id number] [facility] Start: 11-12-2023 End: 11-11-2024 US Thyroid gland US thyroid Imaging Routine Thyroid nodule Expected: 11/12/2023, Expires: 11/11/2024 [facility] Service Area Work Phone: Comment on above: Expected: 11/12/2023 , Expires: 11/11/2024 Start: 11-11-2023 End: 11-10-2024 XR Abdomen Single view XR abdomen 1 view Imaging Routine Nephrolithiasis Expected: 11/11/2023, Expires: 11/10/2024 [facility] Service Area Work Phone: Comment on above: Expected: 11/11/2023 , Expires: 11/10/2024 Start: 10-28-2023 End: 10-28-2023 Patient encounter procedure 10/28/2023 4:00 PM EDT Office Visit [facility] [address] [place] [phone] [place] [address] [place] [address] [facility] Start: 10-23-2023 Hemoglobin A1c measurement Diabetes: Hemoglobin A1C [facility] Start: 10-19-2023 Influenza vaccination [facility] Start: 09-22-2023 End: 09-22-2023 Patient encounter procedure [facility] Start: 09-19-2023 End: 09-19-2023 ambulatory 09/19/2023 11:[address] [facility] [address] [facility] [address] [place] [address] [facility] [address] [facility] Start: 09-18-2023 End: 07-22-2024 Comprehensive metabolic 2000 panel - Serum or Plasma Comprehensive metabolic panel Lab Routine Benign essential hypertension Type 2 diabetes mellitus with stage 3b chronic kidney disease, without long-term current use of insulin (Multi) Expected: 09/18/2023 (Approximate), Expires: 07/22/2024 [facility] Service Area Work Phone: Comment on above: Expected: 09/18/2023 (Approximate), Expires: 07/22/2024 Start: 09-18-2023 End: 07-22-2024 Lipid 1996 panel - Serum or Plasma Lipid panel Lab Routine Mixed hyperlipidemia Expected: 09/18/2023 (Approximate), Expires: 07/22/2024 [facility] Work Phone: Comment on above: Expected: 09/18/2023 (Approximate), Expires: 07/22/2024 Start: 09-18-2023 End: 07-22-2024 Parathyrin.intact [Mass/volume] in Serum or Plasma PTH, intact Lab Routine Stage 3b chronic kidney disease (Multi) Expected: 09/18/2023 (Approximate), Expires: 07/22/2024 [facility] Work Phone: Comment on above: Expected: 09/18/2023 (Approximate), Expires: 07/22/2024 Start: 09-18-2023 End: 07-22-2024 Phosphate [Mass/volume] in Serum or Plasma Phosphorus Lab Routine Stage 3b chronic kidney disease (Multi) Expected: 09/18/2023 (Approximate), Expires: 07/22/2024 [facility] Work Phone: Comment on above: Expected: 09/18/2023 (Approximate), Expires: 07/22/2024 Start: 09-18-2023 End: 07-22-2024 Prostate specific Ag [Mass/volume] in Serum or Plasma Prostate Spec.Ag,Screen Lab Routine Prostate cancer screening Expected: 09/18/2023 (Approximate), Expires: 07/22/2024 [facility] Work Phone: Comment on above: Expected: 09/18/2023 (Approximate), Expires: 07/22/2024 Start: 09-18-2023 End: 07-22-2024 TSH with reflex to Free T4 if abnormal TSH with reflex to Free T4 if abnormal Lab Routine Thyroid disorder screening Expected: 09/18/2023 (Approximate), Expires: 07/22/2024 [facility] Work Phone: Comment on above: Expected: 09/18/2023 (Approximate), Expires: 07/22/2024 Start: 09-18-2023 End: 07-22-2024 Urate [Mass/volume] in Serum or Plasma Uric acid Lab Routine Hyperuricemia Expected: 09/18/2023 (Approximate), Expires: 07/22/2024 [facility] Work Phone: Comment on above: Expected: 09/18/2023 (Approximate), Expires: 07/22/2024 Start: 09-18-2023 End: 07-22-2024 Urinalysis complete panel - Urine Urinalysis with Reflex Microscopic Lab Routine Benign essential hypertension Type 2 diabetes mellitus with stage 3b chronic kidney disease, without long-term current use of insulin (Multi) Expected: 09/18/2023 (Approximate), Expires: 07/22/2024 [facility] Work Phone: Comment on above: Expected: 09/18/2023 (Approximate), Expires: 07/22/2024 Start: 07-23-2023 End: 07-23-2023 Patient encounter procedure 07/23/2023 4:00 PM EDT Office Visit [facility] [address] [place] [address] [place] [address] [place] [address] [facility] Start: 06-05-2023 Hemoglobin A1c measurement Diabetes: Hemoglobin A1C [facility] Start: 04-23-2023 End: 04-23-2023 Patient encounter procedure 04/23/2023 4:00 PM EST Office Visit [facility] [address] [place] [address] [place] [address] [place] [address] [facility] Start: 03-04-2023 End: 03-04-2023 Patient encounter procedure 03/04/2023 4:00 PM EST Office Visit [facility] [address] [place] [address] [place] [address] [place] [address] [facility] Start: 12-20-2022 Urine screening for protein Diabetes: Urine Protein Screening [facility] Start: 12-19-2022 Hemoglobin A1c measurement Diabetes: Hemoglobin A1C [facility] Start: 12-12-2022 PHYSICAL, Provider: Phillip Bernal, Status: Pen, Time: 4:30 PM PHYSICAL, Provider: Phillip Bernal, Status: Pen, Time: 4:30 PM -[facility] DO Work Phone: Start: 10-18-2022 Influenza vaccination Influenza Vacc ine (#1) [facility] Start: 2022 RSV High Risk: (Elde rly (60+) or Population) (1 - Risk 60-74 years 1-dose series) RSV High Risk: (Elderly (60+) or Population) (1 - Risk 60-74 years 1-dose series) [facility] Start: 2022 RSV patient s and/or patients aged 60+ years (1 - 1-dose 60+ series) RSV patients and/or patients aged 60+ years (1 - 1-dose 60+ series) [facility] Start: 07-03-2022 FUV, Provider: Phillip Bernal, Status: Pen, Time: 4:30 PM FUV, Provider: Phillip Bernal, Status: Pen, Time: 4:30 PM [facility] Work Phone: Start: 04-24-2022 Glaucoma screening Diabetes: R etinopathy Screening [facility] Start: 12-26-2021 FUVEXT, Provider: Rudi Abdi, Status: Pen, Time: 4:30 PM FUVEXT, Provider: Rudi Abdi, Status: Pen, Time: 4:30 PM [facility] Work Phone: Start: 12-14-2021 FUVEXT, Provider: Rudi Abdi, Status: Pen, Time: 4:00 PM FUVEXT, Provider: Rudi Abdi, Status: Pen, Time: 4:00 PM [facility] Work Phone: Start: 10-04-2021 PHYSICAL, Provider: Phillip Bernal, Status: Pen, Time: 4:15 PM PHYSICAL, Provider: Phillip Bernal, Status: Pen, Time: 4:[address] [facility] DO Work Phone: Start: 09-05-2021 FUV, Provider: Rudi Abdi, Status: Pen, Time: 4:00 PM FUV, Provider: Rudi Abdi, Status: Pen, Time: 4:00 PM [facility] Work Phone: Start: 06-20-2021 FUV, Provider: Phillip Bernal, Status: Pen, Time: 4:00 PM FUV, Provider: Phillip Bernal, Status: Pen, Time: 4:00 PM [facility] DO Work Phone: Start: 06-06-2021 FUV, Provider: Phillip Bernal, Status: Pen, Time: 4:00 PM FUV, Provider: Phillip Bernal, Status: Pen, Time: 4:00 PM [facility] DO Work Phone: Start: 05-23-2021 FUV, Provider: Rudi Abdi, Status: Pen, Time: 4:00 PM FUV, Provider: Rudi Abdi, Status: Pen, Time: 4:00 PM [facility] Work Phone: Start: 05-05-2021 Lipid panel Lipid Panel [facility] Start: 04-24-2021 Glaucoma screening Diabetes: R etinopathy Screening [facility] Start: 04-13-2021 FUV, Provider: Marco Ludwig, Status: Pen, Time: 4:00 PM FUV, Provider: Marco Ludwig, Status: Pen, Time: 4:00 PM [facility] Work Phone: Start: 11-30-2020 FUV, Provider: Phillip Bernal, Status: Pen, Time: 4:00 PM FUV, Provider: Phillip Bernal, Status: Pen, Time: 4:00 PM [facility] Work Phone: Start: 11-22-2020 FUV, Provider: Rudi Abdi, Status: Pen, Time: 4:00 PM FUV, Provider: Rudi Abdi, Status: Pen, Time: 4:00 PM [facility] Work Phone: Start: 04-29-2009 Pneumococcal vaccination Pneum ococcal Vaccine (2 of 2 - PCV) [facility] Start: 04-29-2009 Pneumococcal Vaccine : Pediatrics (0 to 5 Years) and At-Risk Patients (6 to 64 Years) (2 - PCV) Pneumococcal Vaccine: Pediatrics (0 to 5 Years) and At-Risk Patients (6 to 64 Years) (2 - PCV) [facility] Start: 04-29-2009 Pneumococcal Vaccine : Pediatrics (0 to 5 Years) and At-Risk Patients (6 to 64 Years) (2 of 2 - PCV) Pneumococcal Vaccine: Pediatrics (0 to 5 Years) and At-Risk Patients (6 to 64 Years) (2 of 2 - PCV) [facility] Start: 1981 Hepatitis A Vaccines (1 of 2 - Risk 2-dose series) Hepatitis A Vaccines (1 of 2 - Risk 2-dose series) [facility] Start: 1981 Zoster Vaccines (1 of 2) Zoste r Vaccines (1 of 2) [facility] Start: 1980 Hepatitis C screening Hepatitis C Sc reening [facility] Start: 03-17-1973 IPV Vaccines (2 of 3 - 4-dose series) IPV Vaccines (2 of 3 - 4-dose series) [facility] Start: 1972 Diabetic foot examination Diabetes: Foot Exam [facility] Start: 1972 Glaucoma screening Diabetes: R etinopathy Screening [facility] Start: 07-31-1967 COVID-19 Vaccine (#1) COVID-19 Vacci ne (#1) [facility] Start: 07-31-1963 MMR Vaccines (1 of 1 - Standard series) MMR Vaccines (1 of 1 - Standard series) [facility] Start: 1962 HIV screening HIV Screening [facility] Start: 1962 Screening for malign ant neoplasm of colon [facility] Start: 1962 Yearly Adult Physical Yearly Adult P hysical [facility] Bilirubin measuremen t, urine [facility] End: 02-07-2024 ECG 12 lead [facility] Service Area Work Phone: Comment on above: Once for 1 Occurrenc es starting 02/07/2024 until 02/07/2024 End: 10-27-2023 Extra Tubes [facility] Service Area Work Phone: Comment on above: Once (Lab) for 1 Occ urrences starting 10/27/2023 until 10/27/2023 Hemoglobin [Presence ] in Urine [facility] Hemoglobin A1c/Hemoglobin.total in Blood [facility] INR in Blood by Coagulation assay [facility] Lactic acid measurement [facility] Lactic acid measurement [facility] Measurement of keton es in urine using dipstick [facility] Microscopic urinalysis [facility] Organism count, microscopic method [facility] pH of Urine [facility] Specific gravity of Urine [facility] Urine culture [facility] Urine dipstick for glucose [facility] Urine dipstick for leukocyte esterase [facility] Urine dipstick for nitrite [facility] Urine dipstick for protein [facility] Urine examination [facility] End: 10-27-2023 Urine Wilson Tube [facility] Work Phone: Comment on above: Once for 1 Occurrenc es starting 10/27/2023 until 10/27/2023 Urine microscopy: epithelial cells [facility] Urine microscopy: re d cells [facility] Urobilinogen [Presen ce] in Urine [facility] End: 08-02-2023 US Thyroid gland [facility] Service Area Work Phone: Comment on above: Once for 1 Occurrenc es starting 08/02/2023 until 08/02/2023 End: 01-21-2024 US Thyroid gland [facility] Service Area Work Phone: Comment on above: Once for 1 Occurrenc es starting 01/21/2024 until 01/21/2024 White blood cell count [facility] Wound microscopy, culture and sensitivities [facility] End: 11-13-2023 XR Abdomen Single view [facility] Service Area Work Phone: Comment on above: Once for 1 Occurrenc es starting 11/13/2023 until 11/13/2023 -[facility] [place] Work Phone: NEGATED: Highlighted row has been ruled out! Planned Goals not documented -[facility] Work Phone: Immunizations Immunization Date Immunization Notes Care Provider Marcos mcdonnell 07-20-2018 tetanus and diphther ia toxoids, adsorbed, preservative free, for adult use (2 Lf of tetanus toxoid and 2 Lf of diphtheria toxoid) Phillip Patricia Bernal Work Phone: [facility] DO Work Phone: 04-23-2013 hepatitis B vaccine, adult dosage Phillip Bernal Work Phone: [facility] DO Work Phone: 08-11-2012 hepatitis B vaccine, adult dosage Phillip Bernal Work Phone: [facility] DO Work Phone: 07-03-2012 hepatitis B vaccine, adult dosage Phillip Bernal Work Phone: [facility] DO Work Phone: 04-29-2008 pneumococcal polysaccharide vaccine, 23 valent Phillip Bernal Work Phone: [facility] DO Work Phone: 04-29-2008 tetanus toxoid, redu miguel diphtheria toxoid, and acellular pertussis vaccine, adsorbed Phillip Bernal Work Phone: [facility] DO Work Phone: 02-17-1973 poliovirus vaccine, inactivated Heriberto Davalos DO Work Phone: [facility] Work Phone: 02-17-1973 rubella virus vaccine Alma Rosa Davalos DO Work Phone: [facility] Work Phone: 02-17-1973 poliovirus vaccine, unspecified formulation Stj 1 [facility] Work Phone: Payers Date Payer Category Payer Unknown [id number] 2024 Self-pay 2021 [employer] [facility] [id number] 2021 Unknown 2021 Unknown [id number] 2021 Unknown [id number] 1960 Unknown [id number] 2.16.840.1.245048.3.579.2.9 1960 Unknown [id number] 2.16.840.1.209865.3.579.2.9 1960 Unknown [id number] 2.16.840.1.809053.3.579.2.9 1962 Unknown [id number] 2.16.840.1.960454.3.579.2.159 1960 Unknown [id number] 2.16.840.1.039397.3.579.2.1242 1962 Unknown [id number] 2.16.840.1.292506.3.579.2.1242 1962 Unknown [id number] 2.16.840.1.399138.3.579.2.1242 1962 Unknown [id number] 2.16.840.1.267081.3.579.2.1244 1962 Unknown [id number] 2.16.840.1.510088.3.579.2.1244 1962 Unknown [id number] 2.16.840.1.372133.3.579.2.1244 1962 Unknown [id number] 2.16.840.1.650266.3.579.2.1243 1962 Unknown [id number] 2.16.840.1.529468.3.579.2.1243 1962 Unknown [id number] 2.16.840.1.665233.3.579.2.1243 1962 Unknown [id number] 2.16.840.1.446879.3.579.2.1243 1962 Unknown [id number] 2..840.1.476099.3.579.2.1244 1962 Unknown [id number] 2..840.1.330398.3.579.2.1244 1962 Unknown [id number] 2.16.840.1.851515.3.579.2.1244 1962 Unknown [id number] 2.840.1.245153.3.579.2.1244 Private Health Insurance [id number] Unknown [id number] Unknown [id number] Unknown [id number] 2.840.1.816532.3.579.2.462 Unknown [id number] 2.840.1.855168.3.579.2.462 Unknown [id number] 2.840.1.269157.3.579.2.462 Unknown [id number] 2.840.1.101977.3.579.2.462 Unknown [id number] 2.840.1.286554.3.579.2.462 Unknown [id number] 2.16840.1.655591.3.579.2.462 Unknown [id number] 2.16.840.1.595626.3.579.2.462 Unknown [id number] 2.840.1.688298.3.579.2.462 Unknown [id number] 2.16840.1.300880.3.579.2.462 Unknown [id number] 2.16840.1.340828.3.579.2.462 Unknown [id number] 2.16840.1.415567.3.579.2.462 Unknown [id number] 2.16.840.1.747247.3.579.2.462 Unknown [id number] 2.16840.1.194288.3.579.2.462 Unknown [id number] 2.16.840.1.484021.3.579.2.462 Unknown [id number] 2.16.840.1.848975.3.579.2.462 Unknown [id number] 2.16.840.1.341163.3.579.2.462 Social History Date Type Detail Facility Start: 12-23-2022 End: 04-19-2024 Never a smoker Never a smoker [facility] Work Phone: Start: 12-23-2022 End: 10-29-2024 Tobacco smoking status NHIS Never smoked tobacco [facility] Start: 12-23-2022 End: 04-19-2024 Alcohol Use Disorder Identification Test - Consumption [AUDIT-C] [facility] Work Phone: How often to you hav e a drink containing alcohol? Monthly or less [facility] Work Phone: How many standard dr inks containing alcohol do you have on a typical day? 1 or 2 [facility] Work Phone: How often do you hav e 6 or more drinks on 1 occasion? Never [facility] Work Phone: Start: 1960 Sex Assigned At Not on file [facility] Work Phone: Start: 12-13-2022 End: 04-19-2024 Exposure to SARS-CoV-2 (event) Not sure [facility] Start: 03-04-2023 End: 07-23-2023 Tobacco use and exposure Smokeless tobacco non-user [facility] Work Phone: Start: 03-04-2023 End: 04-19-2024 Alcohol intake Current drinker of alcohol (finding) [facility] Work Phone: Start: 03-03-2024 Alcohol Comment weekly [facility] Work Phone: Tobacco smoking stat us NHIS Unknown if ever smoked [facility] Work Phone: Start: 1960 Sex Assigned At Male [facility] Start: 01-12-2022 Sex Male [facility] NEGATED: Highlighted row - - [employer] Work Phone: NEGATED: Highlighted rowStart: MICHAELF History of tobacco use Passive smoker [facility] Work Phone: Medical Equipment Procedure Code Equipment Code Equipment Origin al Text Equipment Identifier Dates Amputation, foot DRESSING,SURGIC EL 4x8 FDA Start: 10-29-2024 Start: 04-17-2018 End: 04-19-2024 Accu-Chek FastCl ix [...] strip i nto the skin once daily. [id number] Start: 04-17-2018 Use as directed to test daily. [id number] Inject 1 strip i nto the skin once daily. [id number] Start: 04-19-2024 End: 04-19-2025 Inject 1 strip under the skin once daily. Use as directed to test daily. 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 [C-SSRS] [facility] Work Phone: 11-25-2023 Patient Health Questionnaire 2 item (PHQ-2) [Reported] [facility] Work Phone: NEGATED: Highlighted row Functional performance Functional status health issues are not documented Disease [facility] Work Phone: Mental Status Date Assessment Result Facility 11-03-2024 Cognitive function Voice/Name [facility] Work Phone: NEGATED: Highlighted row Cognitive function [Interpretation] Cognitive status health issues are not documented Disease [facility] Work Phone: Clinical Notes 11-22-2020 to 11-04-2024 Note Date & Type Note Facility 11-04-2024 Consult note [facility] 11-04-2024 Consult note [facility] 11-04-2024 Consult note [facility] 11-04-2024 Discharge summary [facility] 11-04-2024 Note [facility] Medical Records Department [address] [place] [address] Discharge Summary 11/04/24 1437 MR#: [id number] Acct: [id number] Name: JEFFERSON CARCAMO Rep #: [id number] : 1960 64 From: Wes Arellano MD PCP: Dr. Mayco Fenton MD Status:ADM IN Location: [facility] [place] ND919-7 Providers Date of Admission: 10/29/24 Date of Discharge: 11/04/24 Primary Care Physician: Dr. Mayco Fenton MD Consultations 10/30/24 12:07 Consult: Podiatry Routine Consulting Provider: Javy Lynch Reason for Consult: Left foot osteomyelitis EMERGENT Consult: No MD Notified: Yes Date Notified: 10/30/24 Time Notified: 12:07 Method of Notification: Verbal 10/31/24 07:32 Consult: Infectious Disease Routine Consulting Provider: Marco De La Cruz Reason for Consult: Left foot Osteo. 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 Routine Comment: Reason for Consult:: left foot 11/02/24 10:11 Consult: Urology Routine Consulting Provider: Steve Amos Reason for Consult: elevated PSA, Inc frequency, BPH EMERGENT Consult: No Notified: Yes Date Notified: 11/02/24 Time Notified: 10:11 Method of Notification: Verbal 11/02/24 14:08 Consult: Vascular Surgery Routine Consulting Provider: Teressa Davey Reason for Consult: PAD lower extremity EMERGENT Consult: No Notified: Yes Date Notified: 11/02/24 Time Notified: 14:08 Method of Notification: Answering Service Reason For Visit: SEPSIS 2/2 LEFT DFU Diagnosis Discharge Diagnosis (1) Sepsis: Status: Acute Code(s): A41.9 - Sepsis, unspecified organism Qualifiers: Sepsis type: sepsis due to unspecified organism Sepsis acute organ dysfunction status: w ithout acute organ dysfunction Qualified Code(s): A41.9 - Sepsis, unspecified organism (2) Acute osteomyelitis of left foot: Status: Acute Code(s): M86.172 - Other acute osteomyelitis, left ankle and foot (3) Diabetic infection of left foot: Status: Acute Code(s): E11.628 - Type 2 diabetes mellitus with other skin complications; L08.9 - Local infection of the skin and subcutaneous tissue, unspecified Plan 64-year-old gentleman was admitted with high fever 103.7 Fahrenheit, drainage from the little toe of left foot with no sensation. X-ray of the foot shows subcutaneous air and destruction of proximal phalanx of the little toe/probably head of the fifth metatarsal. 1. Left foot osteomyelitis and diabetic foot ulcer status postdebridement: Patient initially admitted in ICU and then transferred to [facility] floor. Patient has left fifth toe and fifth metatarsal osteomyelitis, gas gangrene as per operative note. Debridement of ulceration down including bone on 10/29/2024 Does not meet criteria for sepsis at the time of admission. Started on broad-spectrum antibiotic IV vancomycin and Zosyn. Prelim wound culture growing Staph aureus. ID consulted for tomorrow. Continue nonweightbearing on his left lower extremity and given the multiple ulcers he has on his right foot he is heel weightbearing on the right 11/01: Wound culture growing Proteus mirabilis and Staph aureus. 1+ GPC, GNR 1+ beta-hemolytic organism 3+. 11/02: Multiple organisms growing. Wound culture positive for GNR x 2, Proteus, strep and staph aureus so far. Wound culture on 10/06 shows a small NAD, GBS, corynebacterium and staph epi lactulose. Recommended to continue Vanco and Zosyn. ID planning for p.o. antibiotics at discharge for possible 6 weeks 11/03: Wound culture growing Morganella, Proteus, GB strep, strep group G, MSSA and anaerobes. He wrote prescription for Cipro and Augmentin at time of discharge for 6 weeks, stop date 12/10/2024. Recommended lab next week, CBC and CMP on Friday. Counseled on the potential side effects, QTc less than 450 ms here. ID follow-up in 2 weeks. 11/04: Patient approved for [facility]. Discharged on the above antibiotic. Follow-up ID as mentioned above. Follow-up with podiatry and vascular surgery. 2. Complicated DM type II with diabetic polyneuropathy: Glucose 86. Glucocheck also between 70-99. Avoid hypoglycemia. On hypoglycemia protocol. Hold metformin 11/04: Continue Accu-Cheks. Metformin resumed 3. Essential hypertension and dyslipidemia ???Blood pressure 142/80. Controlled. Lisinopril and metoprolol resumed. ??? Continue to monitor 11/03 blood pressure on lower side 93/54. Elderly after acute antihypertensive medication. 11/04: Blood pressure is controlled. On lisinopril 5 mg daily. 4. Chronic DVT/PE Xarelto resumed 5. Gout ??? Continue with allopurinol 6. Chronic increased urinary frequency and elevated PSA: Was supposed to follow-up with urologist Dr. Amos today. At the request of his , urologist (more content not included)... [facility] 11-04-2024 Discharge summary [facility] 11-04-2024 Hospital Discharg e instructions Additional Instructions Date of Discharge: 11/04/24 [facility] Work Phone: 11-03-2024 Progress note Note Date/Time November 03, 2024 2:[address] [place] [address] [facility] Medical Records Department [address] [place] [address] Progress Note - Hospitalist 11/03/24 1423 MR#: [id number] Acct: [id number] Name: JEFFERSON CARCAMO Rep #:[id number] : 1960 64 From: Wes Brunner PCP: Dr. Mayco Fenton MD Status:ADM I N Location: [address] Reason for Visit Chief Complaint: Worsening Left Foot Wound with Fever. Objective Data Objective Data Vital Signs: Vital Signs Temp Pulse Resp BP Pulse Ox O2 Del Method 98.6 F 65 16 93/54 L 98 Room Air 11/03/24 12:48 11/03/24 12:48 11/03/24 12:48 11/03/24 12:48 11/03/24 12:48 11/03/24 12:48 Oxygen Delivery Method Room Air Weight: 218 lb 14.704 oz Body Mass Index (BMI) 31.3 Intake & Output: Intake and Output for Last 24 Hours 11/01/24 11/02/24 11/03/24 23:59 23:59 23:59 Intake Total 4308.25 / 4308.25 2400 / 2650 1020 / 1020 Output Total 3500 / 3500 2450 / 2450 750 / 750 Balance 808.25 / 808.25 -50 / 200 270 / 270 Lab / Micro Data 11/01/24 05:30 11/03/24 06:15 Labs: Laboratory Results - last 24 hr 11/02/24 18:34: POC Glucose 212 H 11/02/24 21:38: POC Glucose 170 H 11/03/24 06:15: Creatinine 1.03, Estim Creat Clear Calc 87.84, Est GFR (MDRD) Non-Af 82, Random Vancomycin 13.7 11/03/24 06:19: POC Glucose 158 H 11/03/24 10:54: POC Glucose 215 H Micro: Microbiology 10/29/24 20:15 Wound - Left Foot Gram Stain - Final 10/29/24 20:15 Wound - Left Foot Wound Culture - Final Streptococcus group G Strep anginosus 10/29/24 20:15 Wound - Left Foot Anaerobic Culture - Preliminary Gram negative lea 10/29/24 20:15 Wound - Left Foot Gram Stain - Final 10/29/24 20:15 Wound - Left Foot Wound Culture - Final Streptococcus agalactiae (B) Proteus mirabilis Morganella morganii sp morgani 10/29/24 20:15 Wound - Left Foot Anaerobic Culture - Preliminary Anaerobic cocci Gram negative lea 10/29/24 20:15 Wound - Right Foot Gram Stain - Final 10/29/24 20:15 Wound - Right Foot Wound Culture - Final Staphylococcus aureus Streptococcus group G 10/29/24 20:15 Wound - Right Foot Anaerobic Culture - Final No anaerobic bacteria isolated. 10/29/24 17:45 Wound - Toe Gram Stain - Final 10/29/24 17:45 Wound - Toe Wound Culture - Final Proteus mirabilis Streptococcus group G Streptococcus group B 10/29/24 17:45 Wound - Left Foot Gram Stain - Final 10/29/24 17:45 Wound - Left Foot Wound Culture - Final Proteus mirabilis Streptococcus group G Gram positive lea 10/30/24 17:05 Blood Culture (Wb) - Left Hand Blood Culture - Preliminary No growth in 48 hours. 10/30/24 19:00 Blood Culture (Wb) - Right Wrist Blood Culture - Preliminary No growth in 48 hours. 10/29/24 18:20 Urine, Clean Catch Urine Culture - Final Mixed Gram Positive Organisms 10/29/24 18:20 Blood Culture (Wb) - Anticubital Left Blood Culture - Preliminary No growth in 48 hours. 10/29/24 17:35 Blood Culture (Wb) - Anticubital Left Blood Culture - Preliminary No growth in 48 hours. Physical Exam Narrative Seen and examined. Dr. Amos left the town yesterday. I tried to contact and call him but no answer. The patient's was notified. Advised to follow-up with me as an outpatient. Patient also complained of left hand numbness and brought the questionable diagnosis of MS/multiple sclerosis. I advised to follow-up with a neurologist at disease very specific clinical and radiological diagnosis which needs investigation under the care of neurologist. Wound cultures growing multiple organisms. Bilateral lower leg/feet ulcer left worse than right. Right superficial ulcer over lateral toes/lateral margin of forefoot. History of diabetes mellitus for many years, complicated with diabetic neuropathy. Physical exam General: Alert, Oriented x3, Cooperative. Obesity grade 1, BMI 32.1 kg/m? HEENT: Atraumatic, PERRLA, EOMI, Normocephalic. Oral: No Gingival or Mucosal Lesions/ Ulcerations Neck: Supple, No JVD, Negative Carotid Bruits Chest wall/Lungs: Air entry diminished in bilateral lung bases. No crepitation/rhonchi Cardiovascular: Regular rate and rhythm, Normal S1,S2, No M/G/R Abdomen: Bowel Sounds Present, Soft, Non Tender, Non-Distended : No dysuria. No renal angle tenderness. No suprapubic tenderness. Extremities: No edema, Capillary Refill Less than 3 Seconds Skin: Ulcer over left and right feet covered with a dressing. Left foot with Rachel wrap bandage. Dressing is dry Musculoskeletal: No Tenderness to Palpation of Joints or Extremities Neurological: Cranial nerves II-XII grossly intact, DTR 2+/4. Neuropathy. Psych/Mental Status: Flat affect. Assessment & Plan Assessment/Plan (1) Sepsis: QUALIFIERS: Sepsis type: sepsis due to unspecified organism Sepsis acute organ dysfunction status: without acute organ dysfunction QualifiedCode(s): A41.9 - Sepsis, unspecified organism (2) Acute osteomyelitis of left foot: (3) Diabetic infection of left foot: PLAN: Plan 64-year-old gentleman was admitted with high fever 103.7 Fahrenheit, drainage from the little toe of left foot with no sensation. X-ray of the foot shows subcutaneous air and destruction of proximal phalanx of the little toe/probably head of the fifth metatarsal. 1. Left foot osteomyelitis and diabetic foot ulcer status postdebridement: Patient initially admitted in ICU and then transferred to [facility]. Patient has left fifth toe and fifth metatarsal osteomyelitis, gas gangrene as per operative note. Debridement of ulceration down including bone on 10/29/2024 Does not meet criteria for sepsis at the time of admission. Started on broad-spectrum antibiotic IV vancomycin and Zosyn. Prelim wound culture growing Staph aureus. ID consulted for tomorrow. Continue nonweightbearing on his left lower extremity and given the multiple ulcers he has on his right foot he is heel weightbearing on the right 11/01: Wound culture growing Proteus mirabilis and Staph aureus. 1+ GPC, GNR 1+ beta-hemolytic organism 3+. 11/02: Multiple organisms growing. Wound culture positive for GNR x 2, Proteus, strep and staph aureus so far. Wound culture on 10/06 shows a small NAD, GBS, corynebacterium and staph epi lactulose. Recommended to continue Vanco and Zosyn. ID planning for p.o. antibiotics at discharge for possible 6 weeks 11/03: Wound culture growing Morganella, Proteus, GB strep, strep group G, MSSA and anaerobes. He wrote prescription for Cipro and Augmentin at time of discharge for 6 weeks, stop date 12/10/2024. Recommended lab next week, CBC andCMP on Friday. Counseled on the potential side effects, QTc less than 450 ms here. ID follow-up in 2 weeks. 2. Complicated DM type II with diabetic polyneuropathy: Glucose 86. Glucocheckalso between 70-99. Avoid hypoglycemia. On hypoglycemia protocol. Hold metformin 3. Essential hypertension and dyslipidemia ?Blood pressure 142/80. Controlled. Lisinopril and metoprolol resumed. ? Continue to monitor 11/03 blood pressure on lower side 93/54. Elderly after acute antihypertensive medication. 4. Chronic DVT/PE Xarelto resumed 5. Gout ? Continue with allopurinol 6. Chronic increased urinary frequency and elevated PSA: Was supposed to follow-up with urologist Dr. Amos today. At the request of his , urologist consulted. DVT: SCDs Charges/Coding Visit Charges Inpatient E&M: 66220 Subs Hosp L2 11/03/24 1432 <Electronically signed by Wes Arellano MD> Cosigner Signature (if applicable): CC: ~ Signed [facility] Work Phone: 1(525) 269-687709-17-2025 Progress note Author [facility] Note Date/Time November 03, 2024 1:34pm [facility] Medical Records Department [address] [place] [address] Progress Note - Infect Disease 11/03/24 1333 MR#: [id number] Acct: [id number] Name: JEFFERSON CARCAMO Rep #:[id number] : 1960 64 From: Marco mendez MD PCP: Dr. Mayco Fenton MD Status:ADM I N Location: [facility] [place] [id number] Physical Exam Narrative Feeling better, discharge to rehab planned, no fever, no n/v/d. 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 Lynch for L 5th toe and metatarsal I&D and partial resection. Also with I&D of R foot. Wound cxs with morganella, proteus, GB, MSSA, and anaerobes. Wound cx in 09/2024 with S warneri , GBS, corynebacterium, staph epi, and anaerobes. On vanc/zosyn. Clearance cx now showing some strep. At this point, plan on 6 weeks po cipro and augmentin at discharge, stop date 12/10/24. Recommend lab next week. Counseled re: potential side effects. QTC less than 450 here. ID followup in 2 weeks. D/w Dr. Arellano. Will follow 11/03/24 9442 <Electronically signed by Marco De La Cruz MD> Cosigner Signature (if applicable): CC: ~ Signed [facility] Work Phone: 1(652) 215-174109-17-2025 Consult note Author Xander Hanks [facility] Note Date/Time November 03, 2024 12:33pm [facility] Medical Records Department [address] [place] [address] Pharmacokinetic/Renal -Consult 11/03/24 0749 MR#: [id number] Acct: [id number] Name: JEFFERSON CARCAMO Kathleen Rep #:[id number] : 1960 64 From: Xander spangler PCP: Dr. Mayco Fenton MD Status:ADM I N Y Location: [place] [address] Consult Antibiotic Management Pharmacy has been consulted to manage selected antibiotic: Vancomycin Type of Intervention Type of Consult: Follow-up Suspected Infection Suspected Infection: Osteomyelitis Prior Doses of Antibiotics Prior Doses of Antibiotics Received/Current Regimen: the most recent dose was 1750mg IV q12h before it was held due to a high trough Labs Labs: Sodium 137 mmol/L (133-145) 11/01/24 05:30 Potassium 3.7 mmol/L (3.3-5.1) 11/01/24 05:30 Chloride 103 mmol/L (98-108) 11/01/24 05:30 Carbon Dioxide 24.1 mmol/L (21.0-32.0) 11/01/24 05:30 Anion Gap 9 (5-15) 11/01/24 05:30 BUN 16 mg/dL (4-19) 11/01/24 05:30 Creatinine 1.03 mg/dL (0.70-1.20) 11/03/24 06:15 Est GFR (MDRD) Non-Af 82 (>60) 11/03/24 06:15 BUN/Creatinine Ratio 16.9 RATIO (10-20) 11/01/24 05:30 Glucose 122 mg/dL (70-99) H 11/01/24 05:30 Vancomycin Trough 30.0 ug/mL (5.0-15.0) H 11/02/24 07:30 Random Vancomycin 13.7 ug/mL (0.0-15.0) 11/03/24 06:15 Microbiology Microbiology: Microbiology 10/29/24 17:45 Wound - Left Foot Gram Stain - Final 10/29/24 17:45 Wound - Left Foot Wound Culture - Final Proteus mirabilis Streptococcus group G Gram positive lea 10/29/24 20:15 Wound - Left Foot Gram Stain - Final 10/29/24 20:15 Wound - Left Foot Wound Culture - Preliminary Streptococcus group G Gram Positive Cocci 10/29/24 20:15 Wound - Left Foot Anaerobic Culture - Preliminary Checking for anaerobes, further studies to follow. 10/29/24 20:15 Wound - Right Foot Gram Stain - Final 10/29/24 20:15 Wound - Right Foot Wound Culture - Final Staphylococcus aureus Streptococcus group G 10/29/24 20:15 Wound - Right Foot Anaerobic Culture - Preliminary Checking for anaerobes, further studies to follow. 10/29/24 17:45 Wound - Toe Gram Stain - Final 10/29/24 17:45 Wound - Toe Wound Culture - Preliminary Proteus mirabilis Streptococcus group G Streptococcus agalactiae (B) 10/29/24 20:15 Wound - Left Foot Gram Stain - Final 10/29/24 20:15 Wound - Left Foot Wound Culture - Preliminary Streptococcus agalactiae (B) Gram negative lea Gram negative lea#2 10/29/24 20:15 Wound - Left Foot Anaerobic Culture - Preliminary Checking for anaerobes, further studies to follow. 10/30/24 17:05 Blood Culture (Wb) - Left Hand Blood Culture - Preliminary No growth in 48 hours. 10/30/24 19:00 Blood Culture (Wb) - Right Wrist Blood Culture - Preliminary No growth in 48 hours. 10/29/24 18:20 Urine, Clean Catch Urine Culture - Final Mixed Gram Positive Organisms 10/29/24 18:20 Blood Culture (Wb) - Anticubital Left Blood Culture - Preliminary No growth in 48 hours. 10/29/24 17:35 Blood Culture (Wb) - Anticubital Left Blood Culture - Preliminary No growth in 48 hours. Dosing Weight Weight used for dosin.3 kg Estimated Creatinine Clearance Estimated Creatinine Clearance: 88 ml/min Goal Trough Goal Trough: 15-20 mcg/mL Pharmacy Plan for Drug Dosing Pharmacy Plan for Drug Dosing: VANCOMYCIN LEVEL RECEIVED Current Vancomycin Dose: CURRENTLY BEING HELD Number of Doses Received: Vancomycin Level: 13.7 MCG/ML Hours Since Last Dose: 33 HRS SINCE THE LAST 1750MG DOSE Renal Function: SCR 1.03, CRCL 88 Renal Function Trend: SCR WAS 0.97 ON 11/01 AND 0.99 ON 10/31 Vancomycin Plan/Comments: RANDOM LEVEL IS BACK BELOW 20 SO CAN RESTART DOSING DANIEL NEWLY CALCULATED DOSE (PER CLINCALC) OF 1000MG IV Q12H WHICH HAS A PREDICTED TROUGH OF 16 MCG/ML. WILL CHECK THAT TROUGH BEFORE THE 4TH DOSE. Pending Level: 11/04/24 19:30 Pharmacy Service will continue to monitor and adjust dosing as required. Follow-Up Labs Follow-Up Labs: Trough: Vancomycin Date/Time Labs Ordered Labs to be done on [date and time ordered]: 11/04/24 19:30 11/03/24 0752 <Electronically signed by Xander elaine> Date _ Xander Hanks 11/03/24 1233 <Electronically signed by Marco augustin MD> Cosigner Signature (if applicable): Date Marco De La Cruz MD CC: ~ Signed [facility] Work Phone: 1(609) 986-743909-17-2025 Progress note [facility] Medical Records Department [address] [place] [address] Progress Note - Hospitalist 11/03/24 1423 MR#: [id number] Acct: [id number] Name: JEFFERSON CARCAMO Rep #:[id number] : 1960 64 From: Wes Brunner PCP: Dr. Mayco Fenton MD Status:ADM I N Location: [place] MN750-3 Reason for Visit Chief Complaint: Worsening Left Foot Wound with Fever. Objective Data Objective Data Vital Signs: Vital Signs Temp Pulse Resp BP Pulse Ox O2 Del Method 98.6 F 65 16 93/54 L 98 Room Air 11/03/24 12:48 11/03/24 12:48 11/03/24 12:48 11/03/24 12:48 11/03/24 12:48 11/03/24 12:48 Oxygen Delivery Method Room Air Weight: 218 lb 14.704 oz Body Mass Index (BMI) 31.3 Intake & Output: Intake and Output for Last 24 Hours 11/01/24 11/02/24 11/03/24 23:59 23:59 23:59 Intake Total 4308.25 / 4308.25 2400 / 2650 1020 / 1020 Output Total 3500 / 3500 2450 / 2450 750 / 750 Balance 808.25 / 808.25 -50 / 200 270 / 270 Lab / Micro Data 11/01/24 05:30 11/03/24 06:15 Labs: Laboratory Results - last 24 hr 11/02/24 18:34: POC Glucose 212 H 11/02/24 21:38: POC Glucose 170 H 11/03/24 06:15: Creatinine 1.03, Estim Creat Clear Calc 87.84, Est GFR (MDRD) Non-Af 82, Random Vancomycin 13.7 11/03/24 06:19: POC Glucose 158 H 11/03/24 10:54: POC Glucose 215 H Micro: Microbiology 10/29/24 20:15 Wound - Left Foot Gram Stain - Final 10/29/24 20:15 Wound - Left Foot Wound Culture - Final Streptococcus group G Strep anginosus 10/29/24 20:15 Wound - Left Foot Anaerobic Culture - Preliminary Gram negative lea 10/29/24 20:15 Wound - Left Foot Gram Stain - Final 10/29/24 20:15 Wound - Left Foot Wound Culture - Final Streptococcus agalactiae (B) Proteus mirabilis Morganella morganii sp morgani 10/29/24 20:15 Wound - Left Foot Anaerobic Culture - Preliminary Anaerobic cocci Gram negative lea 10/29/24 20:15 Wound - Right Foot Gram Stain - Final 10/29/24 20:15 Wound - Right Foot Wound Culture - Final Staphylococcus aureus Streptococcus group G 10/29/24 20:15 Wound - Right Foot Anaerobic Culture - Final No anaerobic bacteria isolated. 10/29/24 17:45 Wound - Toe Gram Stain - Final 10/29/24 17:45 Wound - Toe Wound Culture - Final Proteus mirabilis Streptococcus group G Streptococcus group B 10/29/24 17:45 Wound - Left Foot Gram Stain - Final 10/29/24 17:45 Wound - Left Foot Wound Culture - Final Proteus mirabilis Streptococcus group G Gram positive lea 10/30/24 17:05 Blood Culture (Wb) - Left Hand Blood Culture - Preliminary No growth in 48 hours. 10/30/24 19:00 Blood Culture (Wb) - Right Wrist Blood Culture - Preliminary No growth in 48 hours. 10/29/24 18:20 Urine, Clean Catch Urine Culture - Final Mixed Gram Positive Organisms 10/29/24 18:20 Blood Culture (Wb) - Anticubital Left Blood Culture - Preliminary No growth in 48 hours. 10/29/24 17:35 Blood Culture (Wb) - Anticubital Left Blood Culture - Preliminary No growth in 48 hours. Physical Exam Narrative Seen and examined. Dr. Amos left the town yesterday. I tried to contact and call him but no answer. The patient's was notified. Advised to follow-up with me as an outpatient. Patient also complained of left handnumbness and brought the questionable diagnosis of MS/multiple sclerosis. I advised to follow-up with a neurologist at disease very specific clinical and radiological diagnosis which needs investigation under the care of neurologist. Wound cultures growing multiple organisms. Bilateral lower leg/feet ulcer left worse than right. Right superficial ulcer over lateral toes/lateral margin of forefoot. History of diabetes mellitus for many years, complicated with diabetic neuropathy. Physical exam General: Alert, Oriented x3, Cooperative. Obesity grade 1, BMI 32.1 kg/m? HEENT: Atraumatic, PERRLA, EOMI, Normocephalic. Oral: No Gingival or Mucosal Lesions/ Ulcerations Neck: Supple, No JVD, Negative Carotid Bruits Chest wall/Lungs: Air entry diminished in bilateral lung bases. No crepitation/rhonchi Cardiovascular: Regular rate and rhythm, Normal S1,S2, No M/G/R Abdomen: Bowel Sounds Present, Soft, Non Tender, Non-Distended : No dysuria. No renal angle tenderness. No suprapubic tenderness. Extremities: No edema, Capillary Refill Less than 3 Seconds Skin: Ulcer over left and right feet covered with a dressing. Left foot with Rachel wrap bandage. Dressing is dry Musculoskeletal: No Tenderness to Palpation of Joints or Extremities Neurological: Cranial nerves II-XII grossly intact, DTR 2+/4. Neuropathy. Psych/Mental Status: Flat affect. Assessment & Plan Assessment/Plan (1) Sepsis: QUALIFIERS: Sepsis type: sepsis due to unspecified organism Sepsis acute organ dysfunction status: without acute organ dysfunction QualifiedCode(s): A41.9 - Sepsis, unspecified organism (2) Acute osteomyelitis of left foot: (3) Diabetic infection of left foot: PLAN: Plan 64-year-old gentleman was admitted with high fever 103.7 Fahrenheit, drainage from the little toe of left foot with no sensation. X-ray of the foot shows subcutaneous air and destruction of proximal phalanx of the little toe/probably head of the fifth metatarsal. 1. Left foot osteomyelitis and diabetic foot ulcer status postdebridement: Patient initially admitted in ICU and then transferred to [facility] floor. Patient has left fifth toe and fifth metatarsal osteomyelitis, gas gangrene as per operative note. Debridement of ulceration down including bone on 10/29/2024 Does not meet criteria for sepsis at the time of admission. Started on broad-spectrum antibiotic IV vancomycin and Zosyn. Prelim wound culture growing Staph aureus. ID consulted for tomorrow. Continue nonweightbearing on his left lower extremity and given the multiple ulcers he has on his right foot he is heel weightbearing on the right 11/01: Wound culture growing Proteus mirabilis and Staph aureus. 1+ GPC, GNR 1+ beta-hemolytic organism 3+. 11/02: Multiple organisms growing. Wound culture positive for GNR x 2, Proteus, strep and staph aureus so far. Wound culture on 10/06 shows a small NAD, GBS, corynebacterium and staph epi lactulose. Recommended to continue Vanco and Zosyn. ID planning for p.o. antibiotics at discharge for possible 6 weeks 11/03: Wound culture growing Morganella, Proteus, GB strep, strep group G, MSSA and anaerobes. He wrote prescription for Cipro and Augmentin at time of discharge for 6 weeks, stop date 12/10/2024. Recommended lab next week, CBC andCMP on Friday. Counseled on the potential side effects, QTc less [id number] ms here. ID follow-up in 2 weeks. 2. Complicated DM type II with diabetic polyneuropathy: Glucose 86. Glucocheckalso between 70-99. Avoid hypoglycemia. On hypoglycemia protocol. Hold metformin 3. Essential hypertension and dyslipidemia ?Blood pressure 142/80. Controlled. Lisinopril and metoprolol resumed. ? Continue to monitor 11/03 blood pressure on lower side 93/54. Elderly after acute antihypertensive medication. 4. Chronic DVT/PE Xarelto resumed 5. Gout ? Continue with allopurinol 6. Chronic increased urinary frequency and elevated PSA: Was supposed to follow- up with urologist Dr. Amos today. At the request of his , urologist consulted. DVT: SCDs Charges/Coding Visit Charges Inpatient E&M: 42381 Subs Hosp L2 11/03/24 1432 Cosigner Signature (if applicable): CC: ~ Signed [facility]09-17-2025 Progress note [facility] Medical Records Department [address] [place] [address] Progress Note - Infect Disease 11/03/24 1333 MR#: [id number] Acct: [id number] Name: JEFFERSON CARCAMO Rep #:[id number] : 1960 64 From: Marco mendez MD PCP: Dr. Mayco Fenton MD Status:ADM I N Location: [facility] CO530-2 Physical Exam Narrative Feeling better, discharge to rehab planned, no fever, no n/v/d. Const alert and no apparent distress General Appearance: cooperative Resp normal air movement and clear to auscultation bilaterally Cardio regular rate and regular rhythm GI soft to palpation, non-tender and non-distended Skin no rashes or lesions noted Skin Narrative: wound vac in place ID ID: Route of nutrition/ use of supplements: [] Nutritional Intake: [] IV Site: [] Shin Catheter: [] Assessment & Plan Assessment/Plan (1) Gangrene, not elsewhere classified: (2) Diabetes mellitus with diabetic polyneuropathy: QUALIFIERS: Diabetes mellitus type: type 2 Diabetes mellitus fci insulin use: without locomotive crane operator helper use Qualified Code(s): E11.42 - Type 2 diabetes mellitus with diabetic polyneuropathy (3) Acute osteomyelitis of left foot: PLAN: Taken to OR 10/29/[address] Lynch for L 5th toe and metatarsal I&D and partial resection. Also with I&D of R foot. Wound cxs with morganella, proteus, GB, MSSA, and anaerobes. Wound cxin 09/2024 with S warneri , GBS, corynebacterium, staph epi, and anaerobes. On vanc/zosyn. Clearancecx now showing some strep. At this point, plan on 6 weeks po cipro and augmentin at discharge, stopdate 12/10/24. Recommend lab next week. Counseled re: potential side effects. QTC less than 450 here. ID followup in 2 weeks. D/w Dr. Arellano. Will follow 11/03/24 1334 Cosigner Signature (if applicable): CC: ~ Signed [facility]09-17-2025 Consult note [facility] Medical Records Department [address] [place] [address] Pharmacokinetic/Renal -Consult 11/03/24 0749 MR#: [id number] Acct: [id number] Name: JEFFERSON CARCAMO Rep #:[id number] : 1960 64 From: Xander spangler PCP: Dr. Mayco Fenton MD Status:ADM I N Y Location: [place] [address] Consult Antibiotic Management Pharmacy has been consulted to manage selected antibiotic: Vancomycin Type of Intervention Type of Consult: Follow-up Suspected Infection Suspected Infection: Osteomyelitis Prior Doses of Antibiotics Prior Doses of Antibiotics Received/Current Regimen: the most recent dose was 1750mg IV q12h before it was held due to a high trough Labs Labs: Sodium 137 mmol/L (133-145) 11/01/24 05:30 Potassium 3.7 mmol/L (3.3-5.1) 11/01/24 05:30 Chloride 103 mmol/L (98-108) 11/01/24 05:30 Carbon Dioxide 24.1 mmol/L (21.0-32.0) 11/01/24 05:30 Anion Gap 9 (5-15) 11/01/24 05:30 BUN 16 mg/dL (4-19) 11/01/24 05:30 Creatinine 1.03 mg/dL (0.70-1.20) 11/03/24 06:15 Est GFR (MDRD) Non-Af 82 (>60) 11/03/24 06:15 BUN/Creatinine Ratio 16.9 RATIO (10-20) 11/01/24 05:30 Glucose 122 mg/dL (70-99) H 11/01/24 05:30 Vancomycin Trough 30.0 ug/mL (5.0-15.0) H 11/02/24 07:30 Random Vancomycin 13.7 ug/mL (0.0-15.0) 11/03/24 06:15 Microbiology Microbiology: Microbiology 10/29/24 17:45 Wound - Left Foot Gram Stain - Final 10/29/24 17:45 Wound - Left Foot Wound Culture - Final Proteus mirabilis Streptococcus group G Gram positive lea 10/29/24 20:15 Wound - Left Foot Gram Stain - Final 10/29/24 20:15 Wound - Left Foot Wound Culture - Preliminary Streptococcus group G Gram Positive Cocci 10/29/24 20:15 Wound - Left Foot Anaerobic Culture - Preliminary Checking for anaerobes, further studies to follow. 10/29/24 20:15 Wound - Right Foot Gram Stain - Final 10/29/24 20:15 Wound - Right Foot Wound Culture - Final Staphylococcus aureus Streptococcus group G 10/29/24 20:15 Wound - Right Foot Anaerobic Culture - Preliminary Checking for anaerobes, further studies to follow. 10/29/24 17:45 Wound - Toe Gram Stain - Final 10/29/24 17:45 Wound - Toe Wound Culture - Preliminary Proteus mirabilis Streptococcus group G Streptococcus agalactiae (B) 10/29/24 20:15 Wound - Left Foot Gram Stain - Final 10/29/24 20:15 Wound - Left Foot Wound Culture - Preliminary Streptococcus agalactiae (B) Gram negative lea Gram negative lea#2 10/29/24 20:15 Wound - Left Foot Anaerobic Culture - Preliminary Checking for anaerobes, further studies to follow. 10/30/24 17:05 Blood Culture (Wb) - Left Hand Blood Culture - Preliminary No growth in 48 hours. 10/30/24 19:00 Blood Culture (Wb) - Right Wrist Blood Culture - Preliminary No growth in 48 hours. 10/29/24 18:20 Urine, Clean Catch Urine Culture - Final Mixed Gram Positive Organisms 10/29/24 18:20 Blood Culture (Wb) - Anticubital Left Blood Culture - Preliminary No growth in 48 hours. 10/29/24 17:35 Blood Culture (Wb) - Anticubital Left Blood Culture - Preliminary No growth in 48 hours. Dosing Weight Weight used for dosin.3 kg Estimated Creatinine Clearance Estimated Creatinine Clearance: 88 ml/min Goal Trough Goal Trough: 15-20 mcg/mL Pharmacy Plan for Drug Dosing Pharmacy Plan for Drug Dosing: VANCOMYCIN LEVEL RECEIVED Current Vancomycin Dose: CURRENTLY BEING HELD Number of Doses Received: Vancomycin Level: 13.7 MCG/ML Hours Since Last Dose: 33 HRS SINCE THE LAST 1750MG DOSE Renal Function: SCR 1.03, CRCL 88 Renal Function Trend: SCR WAS 0.97 ON 11/01 AND 0.99 ON 10/31 Vancomycin Plan/Comments: RANDOM LEVEL IS BACK BELOW 20 SO CAN RESTART DOSING DANIEL NEWLY CALCULATED DOSE (PER CLINCALC) OF 1000MG IV Q12H WHICH HAS A PREDICTED TROUGH OF 16 MCG/ML. WILL CHECK THAT TROUGH BEFORE THE 4TH DOSE. Pending Level: 11/04/24 19:30 Pharmacy Service will continue to monitor and adjust dosing as required. Follow-Up Labs Follow-Up Labs: Trough: Vancomycin Date/Time Labs Ordered Labs to be done on [date and time ordered]: 11/04/24 19:30 11/03/24 0752 erg> Date _ Xander Hanks 11/03/24 1233 charli AGUERO> Jakob Signature (if applicable): Date Marco De La Cruz MD CC: ~ Signed [facility]09-17-2025 Progress note Author Javy Lynch [facility] Note Date/Time November 03, 2024 7:48am [facility] Medical Records Department [address] [place] [address] Progress Note 11/03/24 0745 MR#: [id number] Acct: [id number] Name: JEFFERSON CARCAMO Rep #:[id number] : 1960 64 From: Javy Lynch DPM PCP: Dr. Mayco Fenton MD Status:ADM I N Location: [place] XV831-4 Subjective Subjective Patient was seen this morning for follow up on bilateral feet. He relates he is doing well this morning, no new complaints. No f/c/n/v. Objective Data Objective Data Vital Signs: Vital Signs Temp Pulse Resp BP Pulse Ox O2 Del Method 98 F 72 18 134/62 H 97 Room Air 11/03/24 07:35 11/03/24 07:35 11/03/24 07:35 11/03/24 07:35 11/03/24 07:35 11/03/24 07:35 Oxygen Delivery Method Room Air Weight: 99.3 kg Body Mass Index (BMI) 31.3 Intake & Output: Intake and Output for Last 24 Hours 11/01/24 11/02/24 11/03/24 23:59 23:59 23:59 Intake Total 4308.25 / 4308.25 2400 / 2650 450 / 450 Output Total 3500 / 3500 2450 / 2450 400 / 400 Balance 808.25 / 808.25 -50 / 200 50 / 50 Lab / Micro Data 11/01/24 05:30 11/03/24 06:15 Labs: Laboratory Results - last 24 hr 11/02/24 07:30: Vancomycin Trough 30.0 H 11/02/24 12:30: POC Glucose 173 H 11/02/24 18:34: POC Glucose 212 H 11/02/24 21:38: POC Glucose 170 H 11/03/24 06:15: Creatinine 1.03, Estim Creat Clear Calc 87.84, Est GFR (MDRD) Non-Af 82, Random Vancomycin 13.7 11/03/24 06:19: POC Glucose 158 H Micro: Microbiology 10/29/24 17:45 Wound - Left Foot Gram Stain - Final 10/29/24 17:45 Wound - Left Foot Wound Culture - Final Proteus mirabilis Streptococcus group G Gram positive lea 10/29/24 20:15 Wound - Left Foot Gram Stain - Final 10/29/24 20:15 Wound - Left Foot Wound Culture - Preliminary Streptococcus group G Gram Positive Cocci 10/29/24 20:15 Wound - Left Foot Anaerobic Culture - Preliminary Checking for anaerobes, further studies to follow. 10/29/24 20:15 Wound - Right Foot Gram Stain - Final 10/29/24 20:15 Wound - Right Foot Wound Culture - Final Staphylococcus aureus Streptococcus group G 10/29/24 20:15 Wound - Right Foot Anaerobic Culture - Preliminary Checking for anaerobes, further studies to follow. 10/29/24 17:45 Wound - Toe Gram Stain - Final 10/29/24 17:45 Wound - Toe Wound Culture - Preliminary Proteus mirabilis Streptococcus group G Streptococcus agalactiae (B) 10/29/24 20:15 Wound - Left Foot Gram Stain - Final 10/29/24 20:15 Wound - Left Foot Wound Culture - Preliminary Streptococcus agalactiae (B) Gram negative lea Gram negative lea#2 10/29/24 20:15 Wound - Left Foot Anaerobic Culture - Preliminary Checking for anaerobes, further studies to follow. 10/30/24 17:05 Blood Culture (Wb) - Left Hand Blood Culture - Preliminary No growth in 48 hours. 10/30/24 19:00 Blood Culture (Wb) - Right Wrist Blood Culture - Preliminary No growth in 48 hours. 10/29/24 18:20 Urine, Clean Catch Urine Culture - Final Mixed Gram Positive Organisms 10/29/24 18:20 Blood Culture (Wb) - Anticubital Left Blood Culture - Preliminary No growth in 48 hours. 10/29/24 17:35 Blood Culture (Wb) - Anticubital Left Blood Culture - Preliminary No growth in 48 hours. Physical Exam Const alert, oriented x3 and no apparent distress Constitutional Narrative: Left foot - s/p debridement with residual wound that is noted to be healthy and viable down to bone, there is no maloder, no necrosis, no fluctuance, no visibleabscess, no crepitus, cellulitis much improved, edema less as well, no evidence of acute ischemia, DP pulse is palpable. There is no pain. Right foot - ulceration sub 5th met head and distal 2nd toe down to subcutaneoustissue, ulcers are healing well with no erythema, no necrosis, no fluctuance, novisible abscess, no crepitus, no evidence of acute ischemia, no pain. General Appearance: comfortable Assessment & Plan Assessment/Plan (1) Gangrene, not elsewhere classified: (2) Acute osteomyelitis of left foot: (3) Cellulitis of left lower limb: (4) Diabetes mellitus with diabetic polyneuropathy: QUALIFIERS: Diabetes mellitus type: type 2 Diabetes mellitus chcf insulin use: without fci use Qualified Code(s): E11.42 - Type 2 diabetes mellitus with diabetic polyneuropathy (5) Type 2 diabetes mellitus with foot ulcer: PLAN: Plan s/p left foot debridement on 10/29/2024 - continues to improve, right foot continues to improve as well. Cultures left foot and ulcer right foot has been obtained, reviewed available results - multi organisms - patient on IV antibiotic therapy with Infectious Disease on consult. Wound care left foot: Wound vac dressing changes q 48-72 hours Wound care right foot: betadine solution, gauze, kerlix and rachel dressing changesdaily No weightbearing left foot, heel weightbearing right foot Keep left foot elevated LEAS have been ordered and obtained - reviewed, TBI left foot noted to be moderately decreased - this was discussed with patient - consult was placed to vascular surgery service Podiatry will continue to follow 11/03/24 0748 <Electronically signed by Javy Lynch DPM> Javy Lynch DPM Cosigner Signature (if applicable): CC: ~ Signed [facility] Work Phone: 1(202) 230-509109-17-2025 Consult note Author Teressa Davey [facility] Note Date/Time November 04, 2024 3:52pm [facility] Medical Records Department [address] [place] [address] Consultation - Surgical 11/03/24 0708 MR#: [id number] Acct: [id number] Name: JEFFERSON CARCAMO Rep #:[id number] : 1960 64 From: Teressa GUSTAFSON PCP: Dr. Mayco Fenton MD Status:DIS I N Location: [place] [address]-1 Assessment & Plan Assessment/Plan (1) PAD (peripheral artery disease): PLAN: Plan LEAS revealed noncompressible vessels with unobtainable ABIs but triphasic waveforms throughout consistent with mild PAD; noncompressible vessels not uncommon in older diabetic patients, triphasic waveforms are reassuring and suggest against any significant large vessel disease and would anticipate sufficient flow to heal. Per discussion with wound care nurse, wounds are looking much improved with good bleeding and granulation tissue to this point. Do not feel any further imaging or intervention is indicated at present. Plan for follow-up in the office in 2-4 weeks after discharge to reassess. HPI Consult Data Date of Consult: 11/03/24 HPI Narrative HPI Narrative: JEFFERSON CARCAMO, is a 64 M who presented to the [facility] ER on 10/29/24 with complaint ofL toe wound with drainage. He was found to have a necrotic appearing L 5th toe and a L 5th MT plantar foot wound; purulent drainage was noted. L foot XR suggested osteomyelitis to the 5th toe. Patient was admitted for IV antibiotics and podiatry consult. Dr. Lynch performed operative debridement/amputation of the L 5th toe on 10/30/24; the site was left open and plan is for wound vac. Siteis noted to be improving following these interventions; he also has a chronic ulcer to the R 5th toe which is noted to be improving. In workup, he had a LEAS in which ABIs were unobtainable due to noncompressible vessels, R TBI 0.64, L TBI 0.55, and triphasic waveforms bilaterally. He reports that he'd had the L toe/foot wounds for just a few weeks before they acutely worsened leading to his ER presentation. He reports he has never had wounds like this before. He endorses bilateral foot/lower leg neuropathy but otherwise denies any claudication or rest/nocturnal pain. He denies any prior vascular surgical procedures. 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 Wound vac in place to the L foot. Not removed for exam. Visible toes pink and appropriately warm. Skin Wound Narrative: Wound vac in place to the L foot, dry dressings in place to the R foot. Neuro oriented x3, moves all extremities and no focal motor deficits Speech: speech normal Psych mental status grossly normal Appearance: grossly normal Attitude: calm and engaged Activity / Motor Behavior: appropriate eye contact Speech: normal speech Lab / Micro Data 11/01/24 05:30 11/03/24 06:15 Labs: Laboratory Results - last 24 hr 11/02/24 07:30: Vancomycin Trough 30.0 H 11/02/24 12:30: POC Glucose 173 H 11/02/24 18:34: POC Glucose 212 H 11/02/24 21:38: POC Glucose 170 H 11/03/24 06:19: POC Glucose 158 H Micro: Microbiology 10/29/24 17:45 Wound - Left Foot Gram Stain - Final 10/29/24 17:45 Wound - Left Foot Wound Culture - Final Proteus mirabilis Streptococcus group G Gram positive lea 10/29/24 20:15 Wound - Left Foot Gram Stain - Final 10/29/24 20:15 Wound - Left Foot Wound Culture - Preliminary Streptococcus group G Gram Positive Cocci 10/29/24 20:15 Wound - Left Foot Anaerobic Culture - Preliminary Checking for anaerobes, further studies to follow. 10/29/24 20:15 Wound - Right Foot Gram Stain - Final 10/29/24 20:15 Wound - Right Foot Wound Culture - Final Staphylococcus aureus Streptococcus group G 10/29/24 20:15 Wound - Right Foot Anaerobic Culture - Preliminary Checking for anaerobes, further studies to follow. 10/29/24 17:45 Wound - Toe Gram Stain - Final 10/29/24 17:45 Wound - Toe Wound Culture - Preliminary Proteus mirabilis Streptococcus group G Streptococcus agalactiae (B) 10/29/24 20:15 Wound - Left Foot Gram Stain - Final 10/29/24 20:15 Wound - Left Foot Wound Culture - Preliminary Streptococcus agalactiae (B) Gram negative lea Gram negative lea#2 10/29/24 20:15 Wound - Left Foot Anaerobic Culture - Preliminary Checking for anaerobes, further studies to follow. 10/30/24 17:05 Blood Culture (Wb) - Left Hand Blood Culture - Preliminary No growth in 48 hours. 10/30/24 19:00 Blood Culture (Wb) - Right Wrist Blood Culture - Preliminary No growth in 48 hours. Charges/Coding Visit Charges Inpatient E&M: 96835 Init Hosp L1 11/03/24 0906 <Electronically signed by Teressa GUSTAFSON> Cosigner Signature (if applicable): 11/08/24 0725 <Electronically signed by Reynaldo Gan MD> CC: Dr. Mayco Fenton MD~ Signed [facility] Work Phone: 1(337) 640-344209-17-2025 Progress note [facility] Medical Records Department [address] [place] [address] Progress Note 11/03/24 0745 MR#: [id number] Acct: [id number] Name: JEFFERSON CARCAMO Rep #:[id number] : 1960 64 From: Javy Lynch DPM PCP: Dr. Mayco Fenton MD Status:ADM I N Location: MS3 LX472-6 Subjective Subjective Patient was seen this morning for follow up on bilateral feet. He relates he is doing well this morning, no new complaints. No f/c/n/v. Objective Data Objective Data Vital Signs: Vital Signs Temp Pulse Resp BP Pulse Ox O2 Del Method 98 F 72 18 134/62 H 97 Room Air 11/03/24 07:35 11/03/24 07:35 11/03/24 07:35 11/03/24 07:35 11/03/24 07:35 11/03/24 07:35 Oxygen Delivery Method Room Air Weight: 99.3 kg Body Mass Index (BMI) 31.3 Intake & Output: Intake and Output for Last 24 Hours 11/01/24 11/02/24 11/03/24 23:59 23:59 23:59 Intake Total 4308.25 / 4308.25 2400 / 2650 450 / 450 Output Total 3500 / 3500 2450 / 2450 400 / 400 Balance 808.25 / 808.25 -50 / 200 50 / 50 Lab / Micro Data 11/01/24 05:30 11/03/24 06:15 Labs: Laboratory Results - last 24 hr 11/02/24 07:30: Vancomycin Trough 30.0 H 11/02/24 12:30: POC Glucose 173 H 11/02/24 18:34: POC Glucose 212 H 11/02/24 21:38: POC Glucose 170 H 11/03/24 06:15: Creatinine 1.03, Estim Creat Clear Calc 87.84, Est GFR (MDRD) Non-Af 82, Random Vancomycin 13.7 11/03/24 06:19: POC Glucose 158 H Micro: Microbiology 10/29/24 17:45 Wound - Left Foot Gram Stain - Final 10/29/24 17:45 Wound - Left Foot Wound Culture - Final Proteus mirabilis Streptococcus group G Gram positive lea 10/29/24 20:15 Wound - Left Foot Gram Stain - Final 10/29/24 20:15 Wound - Left Foot Wound Culture - Preliminary Streptococcus group G Gram Positive Cocci 10/29/24 20:15 Wound - Left Foot Anaerobic Culture - Preliminary Checking for anaerobes, further studies to follow. 10/29/24 20:15 Wound - Right Foot Gram Stain - Final 10/29/24 20:15 Wound - Right Foot Wound Culture - Final Staphylococcus aureus Streptococcus group G 10/29/24 20:15 Wound - Right Foot Anaerobic Culture - Preliminary Checking for anaerobes, further studies to follow. 10/29/24 17:45 Wound - Toe Gram Stain - Final 10/29/24 17:45 Wound - Toe Wound Culture - Preliminary Proteus mirabilis Streptococcus group G Streptococcus agalactiae (B) 10/29/24 20:15 Wound - Left Foot Gram Stain - Final 10/29/24 20:15 Wound - Left Foot Wound Culture - Preliminary Streptococcus agalactiae (B) Gram negative lea Gram negative lea#2 10/29/24 20:15 Wound - Left Foot Anaerobic Culture - Preliminary Checking for anaerobes, further studies to follow. 10/30/24 17:05 Blood Culture (Wb) - Left Hand Blood Culture - Preliminary No growth in 48 hours. 10/30/24 19:00 Blood Culture (Wb) - Right Wrist Blood Culture - Preliminary No growth in 48 hours. 10/29/24 18:20 Urine, Clean Catch Urine Culture - Final Mixed Gram Positive Organisms 10/29/24 18:20 Blood Culture (Wb) - Anticubital Left Blood Culture - Preliminary No growth in 48 hours. 10/29/24 17:35 Blood Culture (Wb) - Anticubital Left Blood Culture - Preliminary No growth in 48 hours. Physical Exam Const alert, oriented x3 and no apparent distress Constitutional Narrative: Left foot - s/p debridement with residual wound that is noted to be healthy and viable down to bone, there is no maloder, no necrosis, no fluctuance, no visibleabscess, no crepitus, cellulitis much improved, edema less as well, no evidence of acute ischemia, DP pulse is palpable. There is no pain. Right foot - ulceration sub 5th met head and distal 2nd toe down to subcutaneoustissue, ulcers are healing well with no erythema, no necrosis, no fluctuance, novisible abscess, no crepitus, no evidence of acute ischemia, no pain. General Appearance: comfortable Assessment & Plan Assessment/Plan (1) Gangrene, not elsewhere classified: (2) Acute osteomyelitis of left foot: (3) Cellulitis of left lower limb: (4) Diabetes mellitus with diabetic polyneuropathy: QUALIFIERS: Diabetes mellitus type: type 2 Diabetes mellitus chcf insulin use: without locomotive crane operator helper use Qualified Code(s): E11.42 - Type 2 diabetes mellitus with diabetic polyneuropathy (5) Type 2 diabetes mellitus with foot ulcer: PLAN: Plan s/p left foot debridement on 10/29/2024 - continues to improve, right foot continues to improve as well. Cultures left foot and ulcer right foot has been obtained, reviewed available results - multi organisms - patient on IV antibiotic therapy with Infectious Disease on consult. Wound care left foot: Wound vac dressing changes q 48-72 hours Wound care right foot: betadine solution, gauze, kerlix and rachel dressing changesdaily No weightbearing left foot, heel weightbearing right foot Keep left foot elevated LEAS have been ordered and obtained - reviewed, TBI left foot noted to be moderately decreased - this was discussed with patient - consult was placed to vascular surgery service Podiatry will continue to follow 11/03/24 0748 Javy Lynch DPM Cosigner Signature (if applicable): CC: ~ Signed [facility]09-17-2025 Progress note Author Javy [facility] Note Date/Time November 02, 2024 10:10pm [facility] Medical Records Department [address] [place] [address] Progress Note 11/02/24 1729 MR#: [id number] Acct: [id number] Name: JEFFERSON CARCAMO Rep #:[id number] : 1960 64 From: Javy Lynch DPM PCP: Dr. Mayco Fenton MD Status:ADM I N Location: [facility] [place] LF289-5 Subjective Subjective Patient was seen today for follow up on feet. He is sitting up in change with feet elevated. He is considering going to a nursing facility. He has no new complaints. No complaints of f/c/n/v. Objective Data Objective Data Vital Signs: Vital Signs Temp Pulse Resp BP Pulse Ox O2 Del Method 98.1 F 97 18 138/77 H 98 Room Air 11/02/24 09:00 11/02/24 09:09 11/02/24 09:00 11/02/24 09:00 11/02/24 09:00 11/02/24 09:00 Oxygen Delivery Method Room Air Weight: 95.8 kg Body Mass Index (BMI) 30.2 Intake & Output: Intake and Output for Last 24 Hours 10/31/24 11/01/24 11/02/24 23:59 23:59 23:59 Intake Total 1874.1 / 1874.1 4308.25 / 4308.25 1150 / 1150 Output Total 3300 / 3300 3500 / 3500 2450 / 2450 Balance -1425.9 / -1425.9 808.25 / 808.25 -1300 / -1300 Lab / Micro Data 11/01/24 05:30 11/01/24 05:30 Labs: Laboratory Results - last 24 hr 11/01/24 18:19: POC Glucose 197 H 11/01/24 23:45: POC Glucose 137 H 11/02/24 05:33: POC Glucose 114 H 11/02/24 07:30: Vancomycin Trough 30.0 H 11/02/24 12:30: POC Glucose 173 H Micro: Microbiology 10/29/24 17:45 Wound - Left Foot Gram Stain - Final 10/29/24 17:45 Wound - Left Foot Wound Culture - Final Proteus mirabilis Streptococcus group G Gram positive lea 10/29/24 20:15 Wound - Left Foot Gram Stain - Final 10/29/24 20:15 Wound - Left Foot Wound Culture - Preliminary Streptococcus group G Gram Positive Cocci 10/29/24 20:15 Wound - Left Foot Anaerobic Culture - Preliminary Checking for anaerobes, further studies to follow. 10/29/24 20:15 Wound - Right Foot Gram Stain - Final 10/29/24 20:15 Wound - Right Foot Wound Culture - Final Staphylococcus aureus Streptococcus group G 10/29/24 20:15 Wound - Right Foot Anaerobic Culture - Preliminary Checking for anaerobes, further studies to follow. 10/29/24 17:45 Wound - Toe Gram Stain - Final 10/29/24 17:45 Wound - Toe Wound Culture - Preliminary Proteus mirabilis Streptococcus group G Streptococcus agalactiae (B) 10/29/24 20:15 Wound - Left Foot Gram Stain - Final 10/29/24 20:15 Wound - Left Foot Wound Culture - Preliminary Streptococcus agalactiae (B) Gram negative lea Gram negative lea#2 10/29/24 20:15 Wound - Left Foot Anaerobic Culture - Preliminary Checking for anaerobes, further studies to follow. 10/30/24 17:05 Blood Culture (Wb) - Left Hand Blood Culture - Preliminary No growth in 48 hours. 10/30/24 19:00 Blood Culture (Wb) - Right Wrist Blood Culture - Preliminary No growth in 48 hours. 10/29/24 18:20 Urine, Clean Catch Urine Culture - Final Mixed Gram Positive Organisms 10/29/24 18:20 Blood Culture (Wb) - Anticubital Left Blood Culture - Preliminary No growth in 48 hours. 10/29/24 17:35 Blood Culture (Wb) - Anticubital Left Blood Culture - Preliminary No growth in 48 hours. Radiography Diagnostic Testing: Radiology Impression Extremity Arterial Study 10/29/24 19:42 Interpretation Summary Triphasic Doppler waveforms are noted at ankle level bilaterally. Pulse-volume recordings appear satisfactory at all levels bilaterally. Resting ankle-brachial indices could not be determined on either side due to the non-compressibility of the vasculature at ankle level bilaterally. Digital-brachial indices are mildly diminished bilaterally. There is evidence of arterial calcification at ankle level bilaterally. There isevidence of mild arterial occlusive disease in the lower extremities bilaterally. Ordering Physician: Javy Lynch Referring Physician: Mayco Fenton Performed By: Ang Connor RVT Physical Exam Const alert, oriented x3 and no apparent distress Constitutional Narrative: Wound vac left foot intact and working well, no evidence of acute ischemia to left foot. Right foot with dressing clean, dry and intact. Reviewed wound photosright foot from today - stable findings. General Appearance: comfortable Assessment & Plan Assessment/Plan (1) Gangrene, not elsewhere classified: (2) Acute osteomyelitis of left foot: (3) Cellulitis of left lower limb: (4) Diabetes mellitus with diabetic polyneuropathy: QUALIFIERS: Diabetes mellitus type: type 2 Diabetes mellitus chcf insulin use: without fci use Qualified Code(s): E11.42 - Type 2 diabetes mellitus with diabetic polyneuropathy (5) Type 2 diabetes mellitus with foot ulcer: PLAN: Plan s/p left foot debridement on 10/29/2024 - continues to improve, right foot improved as well. 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 Mayco Fenton MD Status:ADM I N Location: [place] [address] Subjective Subjective Patient was seen today for follow up on feet. He is sitting up in change with feet elevated. He is considering going to a nursing facility. He has no new complaints. No complaints of f/c/n/v. Objective Data Objective Data Vital Signs: Vital Signs Temp Pulse Resp BP Pulse Ox O2 Del Method 98.1 F 97 18 138/77 H 98 Room Air 11/02/24 09:00 11/02/24 09:09 11/02/24 09:00 11/02/24 09:00 11/02/24 09:00 11/02/24 09:00 Oxygen Delivery Method Room Air Weight: 95.8 kg Body Mass Index (BMI) 30.2 Intake & Output: Intake and Output for Last 24 Hours 10/31/24 11/01/24 11/02/24 23:59 23:59 23:59 Intake Total 1874.1 / 1874.1 4308.25 / 4308.25 1150 / 1150 Output Total 3300 / 3300 3500 / 3500 2450 / 2450 Balance -1425.9 / -1425.9 808.25 / 808.25 -1300 / -1300 Lab / Micro Data 11/01/24 05:30 11/01/24 05:30 Labs: Laboratory Results - last 24 hr 11/01/24 18:19: POC Glucose 197 H 11/01/24 23:45: POC Glucose 137 H 11/02/24 05:33: POC Glucose 114 H 11/02/24 07:30: Vancomycin Trough 30.0 H 11/02/24 12:30: POC Glucose 173 H Micro: Microbiology 10/29/24 17:45 Wound - Left Foot Gram Stain - Final 10/29/24 17:45 Wound - Left Foot Wound Culture - Final Proteus mirabilis Streptococcus group G Gram positive lea 10/29/24 20:15 Wound - Left Foot Gram Stain - Final 10/29/24 20:15 Wound - Left Foot Wound Culture - Preliminary Streptococcus group G Gram Positive Cocci 10/29/24 20:15 Wound - Left Foot Anaerobic Culture - Preliminary Checking for anaerobes, further studies to follow. 10/29/24 20:15 Wound - Right Foot Gram Stain - Final 10/29/24 20:15 Wound - Right Foot Wound Culture - Final Staphylococcus aureus Streptococcus group G 10/29/24 20:15 Wound - Right Foot Anaerobic Culture - Preliminary Checking for anaerobes, further studies to follow. 10/29/24 17:45 Wound - Toe Gram Stain - Final 10/29/24 17:45 Wound - Toe Wound Culture - Preliminary Proteus mirabilis Streptococcus group G Streptococcus agalactiae (B) 10/29/24 20:15 Wound - Left Foot Gram Stain - Final 10/29/24 20:15 Wound - Left Foot Wound Culture - Preliminary Streptococcus agalactiae (B) Gram negative lea Gram negative lea#2 10/29/24 20:15 Wound - Left Foot Anaerobic Culture - Preliminary Checking for anaerobes, further studies to follow. 10/30/24 17:05 Blood Culture (Wb) - Left Hand Blood Culture - Preliminary No growth in 48 hours. 10/30/24 19:00 Blood Culture (Wb) - Right Wrist Blood Culture - Preliminary No growth in 48 hours. 10/29/24 18:20 Urine, Clean Catch Urine Culture - Final Mixed Gram Positive Organisms 10/29/24 18:20 Blood Culture (Wb) - Anticubital Left Blood Culture - Preliminary No growth in 48 hours. 10/29/24 17:35 Blood Culture (Wb) - Anticubital Left Blood Culture - Preliminary No growth in 48 hours. Radiography Diagnostic Testing: Radiology Impression Extremity Arterial Study 10/29/24 19:42 Interpretation Summary Triphasic Doppler waveforms are noted at ankle level bilaterally. Pulse-volume recordings appear satisfactory at all levels bilaterally. Resting ankle-brachial indices could not be determined on either side due to the non-compressibility of the vasculature at ankle level bilaterally. Digital-brachial indices are mildly diminished bilaterally. There is evidence of arterial calcification at ankle level bilaterally. There isevidence of mild arterial occlusive disease in the lower extremities bilaterally. Ordering Physician: Javy Lynch Referring Physician: Mayco Fenton Performed By: Ang Connor RVT Physical Exam Const alert, oriented x3 and no apparent distress Constitutional Narrative: Wound vac left foot intact and working well, no evidence of acute ischemia to left foot. Right footwith dressing clean, dry and intact. Reviewed wound photosright foot from today - stable findings. 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 Myaco Fenton MD Status:ADM I N Location: [place] [address] Reason for Visit Chief Complaint: Worsening Left Foot Wound with Fever. Objective Data Objective Data Vital Signs: Vital Signs Temp Pulse Resp BP Pulse Ox O2 Del Method 98.2 F 97 16 141/79 H 99 Room Air 11/02/24 05:35 11/02/24 09:09 11/02/24 05:35 11/02/24 05:35 11/02/24 05:35 11/02/24 05:35 Oxygen Delivery Method Room Air Weight: 211 lb 3.245 oz Body Mass Index (BMI) 30.2 Intake & Output: Intake and Output for Last 24 Hours 10/31/24 11/01/24 11/02/24 23:59 23:59 23:59 Intake Total 1874.1 / 1874.1 4308.25 / 4308.25 350 / 350 Output Total 3300 / 3300 3500 / 3500 1800 / 1800 Balance -1425.9 / -1425.9 808.25 / 808.25 -1450 / -1450 Lab / Micro Data 11/01/24 05:30 11/01/24 05:30 Labs: Laboratory Results - last 24 hr 11/01/24 18:19: POC Glucose 197 H 11/01/24 23:45: POC Glucose 137 H 11/02/24 05:33: POC Glucose 114 H 11/02/24 07:30: Vancomycin Trough 30.0 H 11/02/24 12:30: POC Glucose 173 H Micro: Microbiology 10/29/24 20:15 Wound - Right Foot Gram Stain - Final 10/29/24 20:15 Wound - Right Foot Wound Culture - Final Staphylococcus aureus Streptococcus group G 10/29/24 20:15 Wound - Right Foot Anaerobic Culture - Preliminary Checking for anaerobes, further studies to follow. 10/29/24 20:15 Wound - Left Foot Gram Stain - Final 10/29/24 20:15 Wound - Left Foot Wound Culture - Preliminary Streptococcus group G 10/29/24 20:15 Wound - Left Foot Anaerobic Culture - Preliminary Checking for anaerobes, further studies to follow. 10/29/24 17:45 Wound - Toe Gram Stain - Final 10/29/24 17:45 Wound - Toe Wound Culture - Preliminary Proteus mirabilis Streptococcus group G Streptococcus agalactiae (B) 10/29/24 17:45 Wound - Left Foot Gram Stain - Final 10/29/24 17:45 Wound - Left Foot Wound Culture - Preliminary Proteus mirabilis Streptococcus group G 10/29/24 20:15 Wound - Left Foot Gram Stain - Final 10/29/24 20:15 Wound - Left Foot Wound Culture - Preliminary Streptococcus agalactiae (B) Gram negative lea Gram negative lea#2 10/29/24 20:15 Wound - Left Foot Anaerobic Culture - Preliminary Checking for anaerobes, further studies to follow. 10/30/24 17:05 Blood Culture (Wb) - Left Hand Blood Culture - Preliminary No growth in 48 hours. 10/30/24 19:00 Blood Culture (Wb) - Right Wrist Blood Culture - Preliminary No growth in 48 hours. 10/29/24 18:20 Urine, Clean Catch Urine Culture - Final Mixed Gram Positive Organisms 10/29/24 18:20 Blood Culture (Wb) - Anticubital Left Blood Culture - Preliminary No growth in 48 hours. 10/29/24 17:35 Blood Culture (Wb) - Anticubital Left Blood Culture - Preliminary No growth in 48 hours. Radiography Diagnostic Testing: Radiology Impression Extremity Arterial Study 10/29/24 19:42 Interpretation Summary Triphasic Doppler waveforms are noted at ankle level bilaterally. Pulse-volume recordings appear satisfactory at all levels bilaterally. Resting ankle-brachial indices could not be determined on either side due to the non-compressibility of the vasculature at ankle level bilaterally. Digital-brachial indices are mildly diminished bilaterally. There is evidence of arterial calcification at ankle level bilaterally. There isevidence of mild arterial occlusive disease in the lower extremities bilaterally. Ordering Physician: Javy Lynch Referring Physician: Mayco Fenton Performed By: Ang Connor, Patricia Physical Exam Narrative Seen and examined. Patient is stated that he missed [address] Amos. Is supposed to following for increased frequency and elevated PSA. No burning micturition. Hewas supposed to see urologist Dr. Amos today. Otherwise he is doing good. Cultures growing multiple organisms. Bilateral lower leg/feet ulcer left worse than right. Right superficial ulcer over lateral toes/lateral margin of forefoot. History of diabetes mellitus for many years, complicated with diabetic neuropathy. Physical exam General: Alert, Oriented x3, Cooperative. Obesity grade 1, BMI 32.1 kg/m? HEENT: Atraumatic, PERRLA, EOMI, Normocephalic. Oral: No Gingival or Mucosal Lesions/ Ulcerations Neck: Supple, No JVD, Negative Carotid Bruits Chest wall/Lungs: Air entry diminished in bilateral lung bases. No crepitation/rhonchi Cardiovascular: Regular rate and rhythm, Normal S1,S2, No M/G/R Abdomen: Bowel Sounds Present, Soft, Non Tender, Non-Distended : No dysuria. No renal angle tenderness. No suprapubic tenderness. Extremities: No edema, Capillary Refill Less than 3 Seconds Skin: Ulcer over left and right feet covered with a dressing. Left foot with Rachel wrap bandage. Dressing is dry Musculoskeletal: No Tenderness to Palpation of Joints or Extremities Neurological: Cranial nerves II-XII grossly intact, DTR 2+/4. Neuropathy. Psych/Mental Status: Flat affect. Assessment & Plan Assessment/Plan (1) Sepsis: QUALIFIERS: Sepsis type: sepsis due to unspecified organism Sepsis acute organ dysfunction status: without acute organ dysfunction QualifiedCode(s): A41.9 - Sepsis, unspecified organism (2) Acute osteomyelitis of left foot: (3) Diabetic infection of left foot: PLAN: Plan 64-year-old gentleman was admitted with high fever 103.7 Fahrenheit, drainage from the little toe of left foot with no sensation. X-ray of the foot shows subcutaneous air and destruction of proximal phalanx of the little toe/probably head of the fifth metatarsal. 1. Left foot osteomyelitis and diabetic foot ulcer status postdebridement: Patient initially admitted in ICU and then transferred to [facility] floor. Patient has left fifth toe and fifth metatarsal osteomyelitis, gas gangrene as per operative note. Debridement of ulceration down including bone on 10/29/2024 Does not meet criteria for sepsis at the time of admission. Started on broad-spectrum antibiotic IV vancomycin and Zosyn. Prelim wound culture growing Staph aureus. ID consulted for tomorrow. Continue nonweightbearing on his left lower extremity and given the multiple ulcers he has on his right foot he is heel weightbearing on the right 11/01: Wound culture growing Proteus mirabilis and Staph aureus. 1+ GPC, GNR 1+ beta-hemolytic organism 3+. 11/02: Multiple organisms growing. Wound culture positive for GNR x 2, Proteus, strep and staph aureus so far. Wound culture on 10/06 shows a small NAD, GBS, corynebacterium and staph epi lactulose. Recommended to continue Vanco and Zosyn. ID planning for p.o. antibiotics at discharge for possible 6 weeks 2. Complicated DM type II with diabetic polyneuropathy: Glucose 86. Glucocheckalso between 70-99. Avoid hypoglycemia. On hypoglycemia protocol. Hold metformin 3. Essential hypertension and dyslipidemia ?Blood pressure 142/80. Controlled. Lisinopril and metoprolol resumed. ? Continue to monitor 4. Chronic DVT/PE Xarelto resumed 5. Gout ? Continue with allopurinol 6. Chronic increased urinary frequency and elevated PSA: Was supposed to follow- up with urologist Dr. Amos today. At the request of his , urologist consulted. DVT: SCDs Charges/Coding Visit Charges Inpatient E&M: 32758 Subs Hosp L2 11/02/24 1315 <Electronically signed by Wes Arellano MD> Cosigner Signature (if applicable): CC: ~ Signed [facility] Work Phone: [phone] 331-851909-16-2025 Progress note [facility] Medical Records Department [address] [place] [address] Progress Note - Hospitalist 11/02/24 1310 MR#: [id number] Acct: [id number] Name: JEFFERSON CARCAMO Rep #:[id number] : 1960 64 From: Wes Brunner PCP: Dr. Mayco Fenton MD Status:ADM I N Location: [place] [address] Reason for Visit Chief Complaint: Worsening Left Foot Wound with Fever. Objective Data Objective Data Vital Signs: Vital Signs Temp Pulse Resp BP Pulse Ox O2 Del Method 98.2 F 97 16 141/79 H 99 Room Air 11/02/24 05:35 11/02/24 09:09 11/02/24 05:35 11/02/24 05:35 11/02/24 05:35 11/02/24 05:35 Oxygen Delivery Method Room Air Weight: 211 lb 3.245 oz Body Mass Index (BMI) 30.2 Intake & Output: Intake and Output for Last 24 Hours 10/31/24 11/01/24 11/02/24 23:59 23:59 23:59 Intake Total 1874.1 / 1874.1 4308.25 / 4308.25 350 / 350 Output Total 3300 / 3300 3500 / 3500 1800 / 1800 Balance -1425.9 / -1425.9 808.25 / 808.25 -1450 / -1450 Lab / Micro Data 11/01/24 05:30 11/01/24 05:30 Labs: Laboratory Results - last 24 hr 11/01/24 18:19: POC Glucose 197 H 11/01/24 23:45: POC Glucose 137 H 11/02/24 05:33: POC Glucose 114 H 11/02/24 07:30: Vancomycin Trough 30.0 H 11/02/24 12:30: POC Glucose 173 H Micro: Microbiology 10/29/24 20:15 Wound - Right Foot Gram Stain - Final 10/29/24 20:15 Wound - Right Foot Wound Culture - Final Staphylococcus aureus Streptococcus group G 10/29/24 20:15 Wound - Right Foot Anaerobic Culture - Preliminary Checking for anaerobes, further studies to follow. 10/29/24 20:15 Wound - Left Foot Gram Stain - Final 10/29/24 20:15 Wound - Left Foot Wound Culture - Preliminary Streptococcus group G 10/29/24 20:15 Wound - Left Foot Anaerobic Culture - Preliminary Checking for anaerobes, further studies to follow. 10/29/24 17:45 Wound - Toe Gram Stain - Final 10/29/24 17:45 Wound - Toe Wound Culture - Preliminary Proteus mirabilis Streptococcus group G Streptococcus agalactiae (B) 10/29/24 17:45 Wound - Left Foot Gram Stain - Final 10/29/24 17:45 Wound - Left Foot Wound Culture - Preliminary Proteus mirabilis Streptococcus group G 10/29/24 20:15 Wound - Left Foot Gram Stain - Final 10/29/24 20:15 Wound - Left Foot Wound Culture - Preliminary Streptococcus agalactiae (B) Gram negative lea Gram negative lea#2 10/29/24 20:15 Wound - Left Foot Anaerobic Culture - Preliminary Checking for anaerobes, further studies to follow. 10/30/24 17:05 Blood Culture (Wb) - Left Hand Blood Culture - Preliminary No growth in 48 hours. 10/30/24 19:00 Blood Culture (Wb) - Right Wrist Blood Culture - Preliminary No growth in 48 hours. 10/29/24 18:20 Urine, Clean Catch Urine Culture - Final Mixed Gram Positive Organisms 10/29/24 18:20 Blood Culture (Wb) - Anticubital Left Blood Culture - Preliminary No growth in 48 hours. 10/29/24 17:35 Blood Culture (Wb) - Anticubital Left Blood Culture - Preliminary No growth in 48 hours. Radiography Diagnostic Testing: Radiology Impression Extremity Arterial Study 10/29/24 19:42 Interpretation Summary Triphasic Doppler waveforms are noted at ankle level bilaterally. Pulse-volume recordings appear satisfactory at all levels bilaterally. Resting ankle-brachial indices could not be determined on either side due to the non-compressibility of the vasculature at ankle level bilaterally. Digital-brachial indices are mildly diminished bilaterally. There is evidence of arterial calcification at ankle level bilaterally. There isevidence of mild arterial occlusive disease in the lower extremities bilaterally. Ordering Physician: Javy Lynch Referring Physician: Mayco Fenton Performed By: Ang Connor, Patricia Physical Exam Narrative Seen and examined. Patient is stated that he missed [address] Amos. Is supposed to following for increased frequency and elevated PSA. No burning micturition. Hewas supposed to see urologist Dr. Amos today. Otherwise he is doing good. Cultures growing multiple organisms. Bilateral lower leg/feet ulcer left worse than right. Right superficial ulcer over lateral toes/lateral margin of forefoot. History of diabetes mellitus for many years, complicated with diabetic neuropathy. Physical exam General: Alert, Oriented x3, Cooperative. Obesity grade 1, BMI 32.1 kg/m? HEENT: Atraumatic, PERRLA, EOMI, Normocephalic. Oral: No Gingival or Mucosal Lesions/ Ulcerations Neck: Supple, No JVD, Negative Carotid Bruits Chest wall/Lungs: Air entry diminished in bilateral lung bases. No crepitation/rhonchi Cardiovascular: Regular rate and rhythm, Normal S1,S2, No M/G/R Abdomen: Bowel Sounds Present, Soft, Non Tender, Non-Distended : No dysuria. No renal angle tenderness. No suprapubic tenderness. Extremities: No edema, Capillary Refill Less than 3 Seconds Skin: Ulcer over left and right feet covered with a dressing. Left foot with Rachel wrap bandage. Dressing is dry Musculoskeletal: No Tenderness to Palpation of Joints or Extremities Neurological: Cranial nerves II-XII grossly intact, DTR 2+/4. Neuropathy. Psych/Mental Status: Flat affect. Assessment & Plan Assessment/Plan (1) Sepsis: QUALIFIERS: Sepsis type: sepsis due to unspecified organism Sepsis acute organ dysfunction status: without acute organ dysfunction QualifiedCode(s): A41.9 - Sepsis, unspecified organism (2) Acute osteomyelitis of left foot: (3) Diabetic infection of left foot: PLAN: Plan 64-year-old gentleman was admitted with high fever 103.7 Fahrenheit, drainage from the little toe of left foot with no sensation. X-ray of the foot shows subcutaneous air and destruction of proximal phalanx of the little toe/probably head of the fifth metatarsal. 1. Left foot osteomyelitis and diabetic foot ulcer status postdebridement: Patient initially admitted in ICU and then transferred to [facility]. Patient has left fifth toe and fifth metatarsal osteomyelitis, gas gangrene as per operative note. Debridement of ulceration down including bone on 10/29/2024 Does not meet criteria for sepsis at the time of admission. Started on broad-spectrum antibiotic IV vancomycin and Zosyn. Prelim wound culture growing Staph aureus. ID consulted for tomorrow. Continue nonweightbearing on his left lower extremity and given the multiple ulcers he has on his right foot he is heel weightbearing on the right 11/01: Wound culture growing Proteus mirabilis and Staph aureus. 1+ GPC, GNR 1+ beta-hemolytic organism 3+. 11/02: Multiple organisms growing. Wound culture positive for GNR x 2, Proteus, strep and staph aureus so far. Wound culture on 10/06 shows a small NAD, GBS, corynebacterium and staph epi lactulose. Recommended to continue Vanco and Zosyn. ID planning for p.o. antibiotics at discharge for possible 6 weeks 2. Complicated DM type II with diabetic polyneuropathy: Glucose 86. Glucocheckalso between 70-99. Avoid hypoglycemia. On hypoglycemia protocol. Hold metformin 3. Essential hypertension and dyslipidemia ?Blood pressure 142/80. Controlled. Lisinopril and metoprolol resumed. ? Continue to monitor 4. Chronic DVT/PE Xarelto resumed 5. Gout ? Continue with allopurinol 6. Chronic increased urinary frequency and elevated PSA: Was supposed to follow- up with urologist Dr. Amos today. At the request of his , urologist consulted. DVT: SCDs Charges/Coding Visit Charges Inpatient E&M: 68952 Subs Hosp L2 11/02/24 1315 Cosigner Signature (if applicable): CC: ~ Signed [facility]09-16-2025 Progress note Author Marco De La Cruz [facility] Note Date/Time November 02, 2024 10:12am [facility] Medical Records Department [address] [place] [address] Progress Note - Infect Disease 11/02/24 1010 MR#: [id number] Acct: [id number] Name: JEFFERSON CARCAMO Rep #:[id number] : 1960 64 From: Marco mendez MD PCP: Dr. Mayco Fenton MD Status:ADM I N Location: [place] [address]-1 Physical Exam Narrative Feeling better, no fever, no n/v/d. 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 Lynch for L 5th toe and metatarsal I&D and partial resection. Also with I&D of R foot. Wound cxs with GNR x2, proteus, strep, and staph aureus so far. Wound cx in 09/2024 with S warneri , GBS, corynebacterium, staph epi, and anaerobes. Cont vanc/zosyn. Clearance cx now showing some strep. At this point, plan on 6 weeks po abx at discharge. Will follow 11/02/24 1012 <Electronically signed by Marco De La Cruz MD> Cosigner Signature (if applicable): CC: ~ Signed [facility] Work Phone: [phone]) 816-769309-16-2025 Consult note Author Xander Hanks [facility] Note Date/Time November 02, 2024 9:58am [facility] Medical Records Department [address] [place] [address] Pharmacokinetic/Renal -Consult 11/02/24924 MR#: [id number] Acct: [id number] Name: JEFFERSON CARCAMO Rep #:[id number] : 1960 64 From: Xander spangler PCP: Dr. Mayco Fenton MD Status:ADM I N Y Location: [place] [address] Consult Antibiotic Management Pharmacy has been consulted to manage selected antibiotic: Vancomycin Type of Intervention Type of Consult: Follow-up Suspected Infection Suspected Infection: Osteomyelitis Prior Doses of Antibiotics Prior Doses of Antibiotics Received/Current Regimen: current dose is 1750mg IV q12h Labs Labs: Sodium 137 mmol/L (133-145) 11/01/24 05:30 Potassium 3.7 mmol/L (3.3-5.1) 11/01/24 05:30 Chloride 103 mmol/L (98-108) 11/01/24 05:30 Carbon Dioxide 24.1 mmol/L (21.0-32.0) 11/01/24 05:30 Anion Gap 9 (5-15) 11/01/24 05:30 BUN 16 mg/dL (4-19) 11/01/24 05:30 Creatinine 0.97 mg/dL (0.70-1.20) 11/01/24 05:30 Est GFR (MDRD) Non-Af 88 (>60) 11/01/24 05:30 BUN/Creatinine Ratio 16.9 RATIO (10-20) 11/01/24 05:30 Glucose 122 mg/dL (70-99) H 11/01/24 05:30 Vancomycin Trough 30.0 ug/mL (5.0-15.0) H 11/02/24 07:30 Microbiology Microbiology: Microbiology 10/29/24 20:15 Wound - Left Foot Gram Stain - Final 10/29/24 20:15 Wound - Left Foot Wound Culture - Preliminary Streptococcus group G 10/29/24 20:15 Wound - Left Foot Anaerobic Culture - Preliminary Checking for anaerobes, further studies to follow. 10/29/24 17:45 Wound - Toe Gram Stain - Final 10/29/24 17:45 Wound - Toe Wound Culture - Preliminary Proteus mirabilis Streptococcus group G Streptococcus agalactiae (B) 10/29/24 17:45 Wound - Left Foot Gram Stain - Final 10/29/24 17:45 Wound - Left Foot Wound Culture - Preliminary Proteus mirabilis Streptococcus group G 10/29/24 20:15 Wound - Left Foot Gram Stain - Final 10/29/24 20:15 Wound - Left Foot Wound Culture - Preliminary Streptococcus agalactiae (B) Gram negative lea Gram negative lea#2 10/29/24 20:15 Wound - Left Foot Anaerobic Culture - Preliminary Checking for anaerobes, further studies to follow. 10/30/24 17:05 Blood Culture (Wb) - Left Hand Blood Culture - Preliminary No growth in 48 hours. 10/30/24 19:00 Blood Culture (Wb) - Right Wrist Blood Culture - Preliminary No growth in 48 hours. 10/29/24 18:20 Urine, Clean Catch Urine Culture - Final Mixed Gram Positive Organisms 10/29/24 20:15 Wound - Right Foot Gram Stain - Final 10/29/24 20:15 Wound - Right Foot Wound Culture - Preliminary Staphylococcus aureus Gram positive organism 10/29/24 20:15 Wound - Right Foot Anaerobic Culture - Preliminary Checking for anaerobes, further studies to follow. 10/29/24 18:20 Blood Culture (Wb) - Anticubital Left Blood Culture - Preliminary No growth in 48 hours. 10/29/24 17:35 Blood Culture (Wb) - Anticubital Left Blood Culture - Preliminary No growth in 48 hours. Dosing Weight Weight used for dosin.8 kg Estimated Creatinine Clearance Estimated Creatinine Clearance: 94 ml/min Goal Trough Goal Trough: 15-20 mcg/mL Pharmacy Plan for Drug Dosing Pharmacy Plan for Drug Dosing: VANCOMYCIN LEVEL RECEIVED Current Vancomycin Dose: 1750MG Q12H Number of Doses Received: 2000MG X1, 1750MG X6 Vancomycin Level: 30.0 MCG/ML Hours Since Last Dose: 10.5 HRS Renal Function: SCr 0.97, CrCl 94 (11/01) Renal Function Trend: SCr WAS 0.99 ON 10/31 AND 1.07 ON 10/30 Vancomycin Plan/Comments: TROUGH WELL ABOVE GOAL, ALTHOUGH IT WOULD HAVE BEEN SLIGHTLY LOWER THAN 30 IF DRAWN CLOSER TO THE DESIRED 11.5 HOUR TRISHA. THE PREVIOUS DOSE WAS GIVEN AN HOUR LATE LAST NIGHT.. HOLD CURRENT DOSE. GET RANDOM LEVEL TOMORROW MORNING. Pending Level: 11/03 0600 (RANDOM LEVEL) Pharmacy Service will continue to monitor and adjust dosing as required. Follow-Up Labs Follow-Up Labs: Trough: Vancomycin (RANDOM) Date/Time Labs Ordered Labs to be done on [date and time ordered]: 11/03/24 06:00 11/02/24 0929 <Electronically signed by Xander Orr erg> Date _ Xander Hanks 11/02/24 0958 <Electronically signed by Marco augustin MD> Cosigner Signature (if applicable): Date Marco De La Cruz MD CC: ~ Signed [facility] Work Phone: [phone]) [phone] Progress note [facility] Medical Records Department [address] [place] [address] Progress Note - Infect Disease 11/02/24 1010 MR#: [id number] Acct: [id number] Name: JEFFERSON CARCAMO Rep #:[id number] : 1960 64 From: Marco mendez MD PCP: Dr. Mayco Fenton MD Status:ADM I N Location: [facility] [place] [facility] [id number] Physical Exam Narrative Feeling better, no fever, no n/v/d. 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 Lynch for L 5th toe and metatarsal I&D and partial resection. Also with I&D of R foot. Wound cxs with GNR x2, proteus, strep, and staph aureus so far. Woundcx in 09/2024 with S warneri , GBS, corynebacterium, staph epi, and anaerobes. Cont vanc/zosyn. Clearance cx now showing some strep. At this point, plan on 6 weeks po abx at discharge. Will follow 11/02/24 1012 Cosigner Signature (if applicable): CC: ~ Signed [facility]09-16-2025 Consult note [facility] Medical Records Department [address] [place] [address] Pharmacokinetic/Renal -Consult 11/02/24924 MR#: [id number] Acct: [id number] Name: JEFFERSON CARCAMO Rep #:[id number] : 1960 64 From: Xander spangler PCP: Dr. Mayco Fenton MD Status:ADM I N Y Location: [place] [address] Consult Antibiotic Management Pharmacy has been consulted to manage selected antibiotic: Vancomycin Type of Intervention Type of Consult: Follow-up Suspected Infection Suspected Infection: Osteomyelitis Prior Doses of Antibiotics Prior Doses of Antibiotics Received/Current Regimen: current dose is 1750mg IV q12h Labs Labs: Sodium 137 mmol/L (133-145) 11/01/24 05:30 Potassium 3.7 mmol/L (3.3-5.1) 11/01/24 05:30 Chloride 103 mmol/L (98-108) 11/01/24 05:30 Carbon Dioxide 24.1 mmol/L (21.0-32.0) 11/01/24 05:30 Anion Gap 9 (5-15) 11/01/24 05:30 BUN 16 mg/dL (4-19) 11/01/24 05:30 Creatinine 0.97 mg/dL (0.70-1.20) 11/01/24 05:30 Est GFR (MDRD) Non-Af 88 (>60) 11/01/24 05:30 BUN/Creatinine Ratio 16.9 RATIO (10-20) 11/01/24 05:30 Glucose 122 mg/dL (70-99) H 11/01/24 05:30 Vancomycin Trough 30.0 ug/mL (5.0-15.0) H 11/02/24 07:30 Microbiology Microbiology: Microbiology 10/29/24 20:15 Wound - Left Foot Gram Stain - Final 10/29/24 20:15 Wound - Left Foot Wound Culture - Preliminary Streptococcus group G 10/29/24 20:15 Wound - Left Foot Anaerobic Culture - Preliminary Checking for anaerobes, further studies to follow. 10/29/24 17:45 Wound - Toe Gram Stain - Final 10/29/24 17:45 Wound - Toe Wound Culture - Preliminary Proteus mirabilis Streptococcus group G Streptococcus agalactiae (B) 10/29/24 17:45 Wound - Left Foot Gram Stain - Final 10/29/24 17:45 Wound - Left Foot Wound Culture - Preliminary Proteus mirabilis Streptococcus group G 10/29/24 20:15 Wound - Left Foot Gram Stain - Final 10/29/24 20:15 Wound - Left Foot Wound Culture - Preliminary Streptococcus agalactiae (B) Gram negative lea Gram negative lea#2 10/29/24 20:15 Wound - Left Foot Anaerobic Culture - Preliminary Checking for anaerobes, further studies to follow. 10/30/24 17:05 Blood Culture (Wb) - Left Hand Blood Culture - Preliminary No growth in 48 hours. 10/30/24 19:00 Blood Culture (Wb) - Right Wrist Blood Culture - Preliminary No growth in 48 hours. 10/29/24 18:20 Urine, Clean Catch Urine Culture - Final Mixed Gram Positive Organisms 10/29/24 20:15 Wound - Right Foot Gram Stain - Final 10/29/24 20:15 Wound - Right Foot Wound Culture - Preliminary Staphylococcus aureus Gram positive organism 10/29/24 20:15 Wound - Right Foot Anaerobic Culture - Preliminary Checking for anaerobes, further studies to follow. 10/29/24 18:20 Blood Culture (Wb) - Anticubital Left Blood Culture - Preliminary No growth in 48 hours. 10/29/24 17:35 Blood Culture (Wb) - Anticubital Left Blood Culture - Preliminary No growth in 48 hours. Dosing Weight Weight used for dosin.8 kg Estimated Creatinine Clearance Estimated Creatinine Clearance: 94 ml/min Goal Trough Goal Trough: 15-20 mcg/mL Pharmacy Plan for Drug Dosing Pharmacy Plan for Drug Dosing: VANCOMYCIN LEVEL RECEIVED Current Vancomycin Dose: 1750MG Q12H Number of Doses Received: 2000MG X1, 1750MG X6 Vancomycin Level: 30.0 MCG/ML Hours Since Last Dose: 10.5 HRS Renal Function: SCr 0.97, CrCl 94 (11/01) Renal Function Trend: SCr WAS 0.99 ON 10/31 AND 1.07 ON 10/30 Vancomycin Plan/Comments: TROUGH WELL ABOVE GOAL, ALTHOUGH IT WOULD HAVE BEEN SLIGHTLY LOWER THAN 30 IF DRAWN CLOSER TO THE DESIRED 11.5 HOUR TRISHA. THE PREVIOUS DOSE WAS GIVEN AN HOUR LATE LAST NIGHT.. HOLD CURRENT DOSE. GET RANDOM LEVEL TOMORROW MORNING. Pending Level: 11/03 0600 (RANDOM LEVEL) Pharmacy Service will continue to monitor and adjust dosing as required. Follow-Up Labs Follow-Up Labs: Trough: Vancomycin (RANDOM) Date/Time Labs Ordered Labs to be done on [date and time ordered]: 11/03/24 06:00 11/02/24 0929 erg> Date _ Xander Hanks 11/02/24 0958 charli AGUERO> Cosigner Signature (if applicable): Date Marco De La Cruz MD CC: ~ Signed [facility]09-15-2025 Progress note Author Javy Lynch [facility] Note Date/Time November 01, 2024 6:57pm [facility] Medical Records Department [address] [place] [address] Progress Note 11/01/24 1707 MR#: [id number] Acct: [id number] Name: JEFFERSON CARCAMO Rep #:[id number] : 1960 64 From: Javy Lynch DPM PCP: Dr. Mayco Fenton MD Status:ADM I N Location: [place] OT131-4 Subjective Subjective Patient was seen today for follow up. He is sitting up in chair with feet elevated. He has no new complaints, no f/c/n/v. Objective Data Objective Data Vital Signs: Vital Signs Temp Pulse Resp BP Pulse Ox O2 Del Method 98.2 F 75 18 128/74 H 98 Room Air 11/01/24 14:00 11/01/24 14:00 11/01/24 14:00 11/01/24 14:00 11/01/24 14:00 11/01/24 14:00 Oxygen Delivery Method Room Air Weight: 100.244 kg Body Mass Index (BMI) 31.6 Intake & Output: Intake and Output for Last 24 Hours 10/30/24 10/31/24 11/01/24 23:59 23:59 23:59 Intake Total 4189.5 / 4189.5 1874.1 / 1874.1 2123.25 / 2123.25 Output Total 1025 / 1025 3300 / 3300 1550 / 1550 Balance 3164.5 / 3164.5 -1425.9 / -1425.9 573.25 / 573.25 Lab / Micro Data 11/01/24 05:30 11/01/24 05:30 Labs: Laboratory Results - last 24 hr 10/31/24 22:19: POC Glucose 134 H 11/01/24 05:30: WBC 8.4, RBC 3.44 L, Hgb 10.2 L, Hct 31.2 L, MCV 90.7, MCH 29.7,MCHC 32.7, RDW Std Deviation 41.1, RDW Coeff of Sujey 12.4, Plt Count 258, MPV 9.3, Immature Gran % (Auto) 0.400, Neut % (Auto) 66.3, Lymph % (Auto) 20.1, [place]% (Auto) 10.1 H, Eos % (Auto) 2.6, Baso % (Auto) 0.5, Absolute Neuts (auto) 5.6,Absolute Lymphs (auto) 1.69, Nucleated RBC % 0, Sodium 137, Potassium 3.7, Chloride 103, Carbon Dioxide 24.1, Anion Gap 9, BUN 16, Creatinine 0.97, Estim Creat Clear Calc 94.31, Est GFR (MDRD) Non-Af 88, BUN/Creatinine Ratio 16.9, Glucose 122 H, Calcium 8.7, Total Bilirubin 0.47, AST 45 H, ALT 60 H, Alkaline Phosphatase 141 H, Total Protein 5.9, Albumin 2.7 L, Globulin 3.2, Albumin/Globulin Ratio 0.8 L 11/01/24 05:50: POC Glucose 124 H 11/01/24 12:08: POC Glucose 178 H Micro: Microbiology 10/29/24 20:15 Wound - Left Foot Gram Stain - Final 10/29/24 20:15 Wound - Left Foot Wound Culture - Preliminary Gram negative lea Gram negative lea#2 Beta hemolytic organism 10/29/24 20:15 Wound - Left Foot Anaerobic Culture - Preliminary Checking for anaerobes, further studies to follow. 10/29/24 18:20 Urine, Clean Catch Urine Culture - Final Mixed Gram Positive Organisms 10/29/24 20:15 Wound - Left Foot Gram Stain - Final 10/29/24 20:15 Wound - Left Foot Wound Culture - Preliminary Beta streptococcus 10/29/24 20:15 Wound - Left Foot Anaerobic Culture - Preliminary Checking for anaerobes, further studies to follow. 10/29/24 20:15 Wound - Right Foot Gram Stain - Final 10/29/24 20:15 Wound - Right Foot Wound Culture - Preliminary Staphylococcus aureus Gram positive organism 10/29/24 20:15 Wound - Right Foot Anaerobic Culture - Preliminary Checking for anaerobes, further studies to follow. 10/29/24 17:45 Wound - Left Foot Gram Stain - Final 10/29/24 17:45 Wound - Left Foot Wound Culture - Preliminary Proteus mirabilis Gram positive organism 10/29/24 17:45 Wound - Toe Gram Stain - Final 10/29/24 17:45 Wound - Toe Wound Culture - Preliminary Proteus mirabilis Mixed Gram Positive Organisms 10/29/24 18:20 Blood Culture (Wb) - Anticubital Left Blood Culture - Preliminary No growth in 48 hours. 10/29/24 17:35 Blood Culture (Wb) - Anticubital Left Blood Culture - Preliminary No growth in 48 hours. Physical Exam Const alert, oriented x3 and no apparent distress Constitutional Narrative: Wound vac left foot intact and working well, no evidence of acute ischemia to left foot. General Appearance: comfortable Assessment & Plan Assessment/Plan (1) Gangrene, not elsewhere classified: (2) Acute osteomyelitis of left foot: (3) Cellulitis of left lower limb: (4) Diabetes mellitus with diabetic polyneuropathy: QUALIFIERS: Diabetes mellitus type: type 2 Diabetes mellitus chcf insulin use: without fci use Qualified Code(s): E11.42 - Type 2 diabetes mellitus with diabetic polyneuropathy (5) Type 2 diabetes mellitus with foot ulcer: PLAN: Plan s/p left foot debridement on 10/29/2024 - continues to improve, right foot improved as well. Cultures left foot and ulcer right foot has been obtained, reviewed preliminary results - multi organisms, final results pending Wound care left foot: Wound vac dressing changes q 48-72 hours Wound care right foot: betadine solution, gauze, kerlix and rachel dressing changesdaily No weightbearing left foot, heel weightbearing right foot Keep left foot elevated LEAS have been ordered and obtained - reviewed - formal read pending, TBI left foot noted to be moderately decreased - this was discussed with patient - will consult vascular surgery service Podiatry will continue to follow 11/01/241856 <Electronically signed by Javy Lynch DPM> Javy Lynch DPM Cosigner Signature (if applicable): CC: ~ Signed [facility] Work Phone: 1([phone]) 701-245609-15-2025 Progress note [facility] Medical Records Department [address] [place] [id number] Progress Note 11/01/24 1707 MR#: [id number] Acct: [id number] Name: JEFFERSON CARCAMO Rep #:[id number] : 1960 64 From: Javy Lynch DPM PCP: Dr. Mayco Fenton MD Status:ADM I N Location: [place]3 PM581-5 Subjective Subjective Patient was seen today for follow up. He is sitting up in chair with feet elevated. He has no new complaints, no f/c/n/v. Objective Data Objective Data Vital Signs: Vital Signs Temp Pulse Resp BP Pulse Ox O2 Del Method 98.2 F 75 18 128/74 H 98 Room Air 11/01/24 14:00 11/01/24 14:00 11/01/24 14:00 11/01/24 14:00 11/01/24 14:00 11/01/24 14:00 Oxygen Delivery Method Room Air Weight: 100.244 kg Body Mass Index (BMI) 31.6 Intake & Output: Intake and Output for Last 24 Hours 10/30/24 10/31/24 11/01/24 23:59 23:59 23:59 Intake Total 4189.5 / 4189.5 1874.1 / 1874.1 2123.25 / 2123.25 Output Total 1025 / 1025 3300 / 3300 1550 / 1550 Balance 3164.5 / 3164.5 -1425.9 / -1425.9 573.25 / 573.25 Lab / Micro Data 11/01/24 05:30 11/01/24 05:30 Labs: Laboratory Results - last 24 hr 10/31/24 22:19: POC Glucose 134 H 11/01/24 05:30: WBC 8.4, RBC 3.44 L, Hgb 10.2 L, Hct 31.2 L, MCV 90.7, MCH 29.7,MCHC 32.7, RDW Std Deviation 41.1, RDW Coeff of Sujey 12.4, Plt Count 258, MPV 9.3, Immature Gran % (Auto) 0.400, Neut % (Auto) 66.3, Lymph % (Auto) 20.1, [place]% (Auto) 10.1 H, Eos % (Auto) 2.6, Baso % (Auto) 0.5, AbsoluteNeuts (auto) 5.6,Absolute Lymphs (auto) 1.69, Nucleated RBC % 0, Sodium 137, Potassium 3.7, Chloride 103, Carbon Dioxide 24.1, Anion Gap 9, BUN 16, Creatinine 0.97, Estim Creat Clear Calc 94.31, Est GFR (MDRD) Non-Af 88, BUN/Creatinine Ratio 16.9, Glucose 122 H, Calcium 8.7, Total Bilirubin 0.47, AST 45 H, ALT 60 H, Alkaline Phosphatase 141 H, Total Protein 5.9, Albumin 2.7 L, Globulin 3.2, Albumi n/Globulin Ratio 0.8 L 11/01/24 05:50: POC Glucose 124 H 11/01/24 12:08: POC Glucose 178 H Micro: Microbiology 10/29/24 20:15 Wound - Left Foot Gram Stain - Final 10/29/24 20:15 Wound - Left Foot Wound Culture - Preliminary Gram negative lea Gram negative lea#2 Beta hemolytic organism 10/29/24 20:15 Wound - Left Foot Anaerobic Culture - Preliminary Checking for anaerobes, further studies to follow. 10/29/24 18:20 Urine, Clean Catch Urine Culture - Final Mixed Gram Positive Organisms 10/29/24 20:15 Wound - Left Foot Gram Stain - Final 10/29/24 20:15 Wound - Left Foot Wound Culture - Preliminary Beta streptococcus 10/29/24 20:15 Wound - Left Foot Anaerobic Culture - Preliminary Checking for anaerobes, further studies to follow. 10/29/24 20:15 Wound - Right Foot Gram Stain - Final 10/29/24 20:15 Wound - Right Foot Wound Culture - Preliminary Staphylococcus aureus Gram positive organism 10/29/24 20:15 Wound - Right Foot Anaerobic Culture - Preliminary Checking for anaerobes, further studies to follow. 10/29/24 17:45 Wound - Left Foot Gram Stain - Final 10/29/24 17:45 Wound - Left Foot Wound Culture - Preliminary Proteus mirabilis Gram positive organism 10/29/24 17:45 Wound - Toe Gram Stain - Final 10/29/24 17:45 Wound - Toe Wound Culture - Preliminary Proteus mirabilis Mixed Gram Positive Organisms 10/29/24 18:20 Blood Culture (Wb) - Anticubital Left Blood Culture - Preliminary No growth in 48 hours. 10/29/24 17:35 Blood Culture (Wb) - Anticubital Left Blood Culture - Preliminary No growth in 48 hours. Physical Exam Const alert, oriented x3 and no apparent distress Constitutional Narrative: Wound vac left foot intact and working well, no evidence of acute ischemia to left foot. General Appearance: comfortable Assessment & Plan Assessment/Plan (1) Gangrene, not elsewhere classified: (2) Acute osteomyelitis of left foot: (3) Cellulitis of left lower limb: (4) Diabetes mellitus with diabetic polyneuropathy: QUALIFIERS: Diabetes mellitus type: type 2 Diabetes mellitus chcf insulin use: without fci use Qualified Code(s): E11.42 - Type 2 diabetes mellitus with diabetic polyneuropathy (5) Type 2 diabetes mellitus with foot ulcer: PLAN: Plan s/p left foot debridement on 10/29/2024 - continues to improve, right foot improved as well. Cultures left foot and ulcer right foot has been obtained, reviewed preliminary results - multi organisms, final results pending Wound care left foot: Wound vac dressing changes q 48-72 hours Wound care right foot: betadine solution, gauze, kerlix and rachel dressing changesdaily No weightbearing left foot, heel weightbearing right foot Keep left foot elevated LEAS have been ordered and obtained - reviewed - formal read pending, TBI left foot noted to be moderately decreased - this was discussed with patient - will consult vascular surgery service Podiatry will continue to follow 11/01/24 185 Javy Lynch DPM Cosigner Signature (if applicable): CC: ~ Signed [facility]09-15-2025 Progress note Author Wes Arellano [facility] Note Date/Time November 01, 2024 12:56pm [facility] Medical Records Department [address] [place] [address] Progress Note - Hospitalist 11/01/24 0924 MR#: [id number] Acct: [id number] Name: JEFFERSON CARCAMO Rep #:[id number] : 1960 64 From: Wes Brunner PCP: Dr. Mayco Fenton MD Status:ADM I N Location: [place] [address] Reason for Visit Chief Complaint: Worsening Left Foot Wound with Fever. Objective Data Objective Data Vital Signs: Vital Signs Temp Pulse Resp BP Pulse Ox O2 Del Method 97.6 F L 95 18 148/86 H 98 Room Air 11/01/24 02:45 11/01/24 02:45 11/01/24 02:45 11/01/24 02:45 11/01/24 02:45 11/01/24 02:45 Oxygen Delivery Method Room Air Weight: 221 lb Body Mass Index (BMI) 31.6 Intake & Output: Intake and Output for Last 24 Hours 10/30/24 10/31/24 11/01/24 23:59 23:59 23:59 Intake Total 4189.5 / 4189.5 1874.1 / 1874.1 610 / 610 Output Total 1025 / 1025 3300 / 3300 700 / 700 Balance 3164.5 / 3164.5 -1425.9 / -1425.9 -90 / -90 Lab / Micro Data 11/01/24 05:30 11/01/24 05:30 Labs: Laboratory Results - last 24 hr 10/31/24 11:02: POC Glucose 176 H 10/31/24 16:31: POC Glucose 146 H 10/31/24 22:19: POC Glucose 134 H 11/01/24 05:30: WBC 8.4, RBC 3.44 L, Hgb 10.2 L, Hct 31.2 L, MCV 90.7, MCH 29.7,MCHC 32.7, RDW Std Deviation 41.1, RDW Coeff of Sujey 12.4, Plt Count 258, MPV 9.3, Immature Gran % (Auto) 0.400, Neut % (Auto) 66.3, Lymph % (Auto) 20.1, [place]% (Auto) 10.1 H, Eos % (Auto) 2.6, Baso % (Auto) 0.5, Absolute Neuts (auto) 5.6,Absolute Lymphs (auto) 1.69, Nucleated RBC % 0, Sodium 137, Potassium 3.7, Chloride 103, Carbon Dioxide 24.1, Anion Gap 9, BUN 16, Creatinine 0.97, Estim Creat Clear Calc 94.31, Est GFR (MDRD) Non-Af 88, BUN/Creatinine Ratio 16.9, Glucose 122 H, Calcium 8.7, Total Bilirubin 0.47, AST 45 H, ALT 60 H, Alkaline Phosphatase 141 H, Total Protein 5.9, Albumin 2.7 L, Globulin 3.2, Albumin/Globulin Ratio 0.8 L 11/01/24 05:50: POC Glucose 124 H Micro: Microbiology 10/29/24 17:45 Wound - Left Foot Gram Stain - Final 10/29/24 17:45 Wound - Left Foot Wound Culture - Preliminary Proteus mirabilis Gram positive organism 10/29/24 17:45 Wound - Toe Gram Stain - Final 10/29/24 17:45 Wound - Toe Wound Culture - Preliminary Proteus mirabilis Mixed Gram Positive Organisms 10/29/24 20:15 Wound - Right Foot Gram Stain - Final 10/29/24 20:15 Wound - Right Foot Wound Culture - Preliminary Staphylococcus aureus Gram positive organism 10/29/24 18:20 Blood Culture (Wb) - Anticubital Left Blood Culture - Preliminary No growth in 48 hours. 10/29/24 17:35 Blood Culture (Wb) - Anticubital Left Blood Culture - Preliminary No growth in 48 hours. 10/29/24 20:15 Wound - Left Foot Gram Stain - Final 10/29/24 20:15 Wound - Left Foot Wound Culture - Preliminary Gram negative lea Beta hemolytic organism 10/29/24 20:15 Wound - Left Foot Gram Stain - Final Physical Exam Narrative Seen and examined. Patient moved his bowels yesterday. No acute issues. Cultures growing multipleorganisms. Patient's . The bedside Bilateral lower leg/feet ulcer left worse than right. Right superficial ulcer over lateral toes/lateral margin of forefoot. History of diabetes mellitus for many years, complicated with diabetic neuropathy. Physical exam General: Alert, Oriented x3, Cooperative. Obesity grade 1, BMI 32.1 kg/m? HEENT: Atraumatic, PERRLA, EOMI, Normocephalic. Oral: No Gingival or Mucosal Lesions/ Ulcerations Neck: Supple, No JVD, Negative Carotid Bruits Chest wall/Lungs: Air entry diminished in bilateral lung bases. No crepitation/rhonchi Cardiovascular: Regular rate and rhythm, Normal S1,S2, No M/G/R Abdomen: Bowel Sounds Present, Soft, Non Tender, Non-Distended : No dysuria. No renal angle tenderness. No suprapubic tenderness. Extremities: No edema, Capillary Refill Less than 3 Seconds Skin: Ulcer over left and right feet covered with a dressing. Left foot with Rachel wrap bandage. Musculoskeletal: No Tenderness to Palpation of Joints or Extremities Neurological: Cranial nerves II-XII grossly intact, DTR 2+/4. Neuropathy. Psych/Mental Status: Flat affect. Assessment & Plan Assessment/Plan (1) Sepsis: QUALIFIERS: Sepsis acute organ dysfunction status: without acute organ dysfunction Sepsis type: sepsis due to unspecified organism Qualified Code(s): A41.9 - Sepsis, unspecified organism (2) Acute osteomyelitis of left foot: (3) Diabetic infection of left foot: PLAN: Plan 64-year-old gentleman was admitted with high fever 103.7 Fahrenheit, drainage from the little toe of left foot with no sensation. X-ray of the foot shows subcutaneous air and destruction of proximal phalanx of the little toe/probably head of the fifth metatarsal. 1. Left foot osteomyelitis and diabetic foot ulcer status postdebridement: Patient initially admitted in ICU and then transferred to [facility] floor. Patient has left fifth toe and fifth metatarsal osteomyelitis, gas gangrene as per operative note. Debridement of ulceration down including bone on 10/29/2024 Does not meet criteria for sepsis at the time of admission. Started on broad-spectrum antibiotic IV vancomycin and Zosyn. Prelim wound culture growing Staph aureus. ID consulted for tomorrow. Continue nonweightbearing on his left lower extremity and given the multiple ulcers he has on his right foot he is heel weightbearing on the right 11/01: Wound culture growing Proteus mirabilis and Staph aureus. 1+ GPC, GNR 1+ beta-hemolytic organism 3+. 11/02: Multiple organisms growing. Wound culture positive for GNR x 2, Proteus, strep and staph aureus so far. Wound culture on 10/06 shows a small NAD, GBS, corynebacterium and staph epi lactulose. Recommended to continue Vanco and Zosyn. 2. Complicated DM type II with diabetic polyneuropathy: Glucose 86. Glucocheckalso between 70-99. Avoid hypoglycemia. On hypoglycemia protocol. Hold metformin 3. Essential hypertension and dyslipidemia ?Blood pressure 142/80. Controlled. Lisinopril and metoprolol resumed. ? Continue to monitor 4. Chronic DVT/PE Xarelto resumed 5. Gout ? Continue with allopurinol DVT: SCDs Charges/Coding Visit Charges Inpatient E&M: 49579 Subs Hosp L2 11/01/24 1256 <Electronically signed by Wes Arellano MD> Cosigner Signature (if applicable): CC: ~ Signed [facility] Work Phone: 1(427) 744-345509-15-2025 Consult note Author Marco De La Cruz [facility] Note Date/Time November 01, 2024 11:48am [facility] Medical Records Department [address] [place] [address] Consultation - Infectious Dx 11/01/24 1142 MR#: [id number] Acct: [id number] Name: JEFFERSON CARCAMO Rep #:[id number] : 1960 64 From: Marco mendez MD PCP: Dr. Mayco Fenton MD Status:ADM I N Location: [place]3 DR802-3 Assessment & Plan Assessment/Plan (1) Gangrene, not elsewhere classified: (2) Diabetes mellitus with diabetic polyneuropathy: QUALIFIERS: Diabetes mellitus type: type 2 Diabetes mellitus chcf insulin use: without locomotive crane operator helper use Qualified Code(s): E11.42 - Type 2 diabetes mellitus with diabetic polyneuropathy (3) Acute osteomyelitis of left foot: PLAN: Taken to OR 10/29/[address] Lynch for L 5th toe and metatarsal I&D and partial resection. Also with I&D of R foot. Wound cxs with GNR x2, proteus, strep, and staph aureus so far. Wound cx in 09/2024 with S warneri , GBS, corynebacterium, staph epi, and anaerobes. Cont vanc/zosyn. Will follow, thank you HPI Consult Data Date of Consult: 11/01/24 HPI Narrative Reason for Consultation: osteo HPI Narrative: JEFFERSON CARCAMO, is a 64 M with h/o DM neuropathy, htn, DVT/PE, has been dealing with bilat foot ulcers. On 10/29 presented to ED with 2-3 days progressive L foot redness, swelling, drainage and associated fever/chills. No known incitingevent. Seen by podiatry, taken urgently to OR 10/29/[address] Lynch. Feeling better this Am, no fever, no pain in feet. Full ROS performed and neg except as noted above. 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 11/01/24 05:30 11/01/24 05:30 Labs: Laboratory Results - last 24 hr 10/31/24 16:31: POC Glucose 146 H 10/31/24 22:19: POC Glucose 134 H 11/01/24 05:30: WBC 8.4, RBC 3.44 L, Hgb 10.2 L, Hct 31.2 L, MCV 90.7, MCH 29.7,MCHC 32.7, RDW Std Deviation 41.1, RDW Coeff of Sujey 12.4, Plt Count 258, MPV 9.3, Immature Gran % (Auto) 0.400, Neut % (Auto) 66.3, Lymph % (Auto) 20.1, [place]% (Auto) 10.1 H, Eos % (Auto) 2.6, Baso % (Auto) 0.5, Absolute Neuts (auto) 5.6,Absolute Lymphs (auto) 1.69, Nucleated RBC % 0, Sodium 137, Potassium 3.7, Chloride 103, Carbon Dioxide 24.1, Anion Gap 9, BUN 16, Creatinine 0.97, Estim Creat Clear Calc 94.31, Est GFR (MDRD) Non-Af 88, BUN/Creatinine Ratio 16.9, Glucose 122 H, Calcium 8.7, Total Bilirubin 0.47, AST 45 H, ALT 60 H, Alkaline Phosphatase 141 H, Total Protein 5.9, Albumin 2.7 L, Globulin 3.2, Albumin/Globulin Ratio 0.8 L 11/01/24 05:50: POC Glucose 124 H Micro: Microbiology 10/29/24 20:15 Wound - Left Foot Gram Stain - Final 10/29/24 20:15 Wound - Left Foot Wound Culture - Preliminary Gram negative lea Gram negative lea#2 Beta hemolytic organism 10/29/24 20:15 Wound - Left Foot Gram Stain - Final 10/29/24 20:15 Wound - Left Foot Wound Culture - Preliminary Beta streptococcus 10/29/24 18:20 Urine, Clean Catch Urine Culture - Preliminary Mixed Gram Positive Organisms 10/29/24 17:45 Wound - Left Foot Gram Stain - Final 10/29/24 17:45 Wound - Left Foot Wound Culture - Preliminary Proteus mirabilis Gram positive organism 10/29/24 17:45 Wound - Toe Gram Stain - Final 10/29/24 17:45 Wound - Toe Wound Culture - Preliminary Proteus mirabilis Mixed Gram Positive Organisms 10/29/24 20:15 Wound - Right Foot Gram Stain - Final 10/29/24 20:15 Wound - Right Foot Wound Culture - Preliminary Staphylococcus aureus Gram positive organism 10/29/24 18:20 Blood Culture (Wb) - Anticubital Left Blood Culture - Preliminary No growth in 48 hours. 10/29/24 17:35 Blood Culture (Wb) - Anticubital Left Blood Culture - Preliminary No growth in 48 hours. 11/01/24 1148 <Electronically signed by Marco De La Cruz MD> Cosigner Signature (if applicable): CC: Dr. Mayco Fenton MD~ Signed [facility] Work Phone: 1(707) 153-922209-15-2025 Progress note [facility] Medical Records Department [address] [place] [address] [place] [address] Progress Note - Hospitalist 11/01/24 0924 MR#: [id number] Acct: [id number] Name: JEFFERSON CARCAMO Kathleen Rep #:[id number] : 1960 64 From: Wes Brunner PCP: Dr. Mayco Fenton MD Status:ADM I N Location: MS3 PQ056-2 Reason for Visit Chief Complaint: Worsening Left Foot Wound with Fever. Objective Data Objective Data Vital Signs: Vital Signs Temp Pulse Resp BP Pulse Ox O2 Del Method 97.6 F L 95 18 148/86 H 98 Room Air 11/01/24 02:45 11/01/24 02:45 11/01/24 02:45 11/01/24 02:45 11/01/24 02:45 11/01/24 02:45 Oxygen Delivery Method Room Air Weight: 221 lb Body Mass Index (BMI) 31.6 Intake & Output: Intake and Output for Last 24 Hours 10/30/24 10/31/24 11/01/24 23:59 23:59 23:59 Intake Total 4189.5 / 4189.5 1874.1 / 1874.1 610 / 610 Output Total 1025 / 1025 3300 / 3300 700 / 700 Balance 3164.5 / 3164.5 -1425.9 / -1425.9 -90 / -90 Lab / Micro Data 11/01/24 05:30 11/01/24 05:30 Labs: Laboratory Results - last 24 hr 10/31/24 11:02: POC Glucose 176 H 10/31/24 16:31: POC Glucose 146 H 10/31/24 22:19: POC Glucose 134 H 11/01/24 05:30: WBC 8.4, RBC 3.44 L, Hgb 10.2 L, Hct 31.2 L, MCV 90.7, MCH 29.7,MCHC 32.7, RDW Std Deviation 41.1, RDW Coeff of Sujey 12.4, Plt Count 258, MPV 9.3, Immature Gran % (Auto) 0.400, Neut % (Auto) 66.3, Lymph % (Auto) 20.1, [place]% (Auto) 10.1 H, Eos % (Auto) 2.6, Baso % (Auto) 0.5, AbsoluteNeuts (auto) 5.6,Absolute Lymphs (auto) 1.69, Nucleated RBC % 0, Sodium 137, Potassium 3.7, Chloride 103, Carbon Dioxide 24.1, Anion Gap 9, BUN 16, Creatinine 0.97, Estim Creat Clear Calc 94.31, Est GFR (MDRD) Non-Af 88, BUN/Creatinine Ratio 16.9, Glucose 122 H, Calcium 8.7, Total Bilirubin 0.47, AST 45 H, ALT 60 H, Alkaline Phosphatase 141 H, Total Protein 5.9, Albumin 2.7 L, Globulin 3.2, Albumi n/Globulin Ratio 0.8 L 11/01/24 05:50: POC Glucose 124 H Micro: Microbiology 10/29/24 17:45 Wound - Left Foot Gram Stain - Final 10/29/24 17:45 Wound - Left Foot Wound Culture - Preliminary Proteus mirabilis Gram positive organism 10/29/24 17:45 Wound - Toe Gram Stain - Final 10/29/24 17:45 Wound - Toe Wound Culture - Preliminary Proteus mirabilis Mixed Gram Positive Organisms 10/29/24 20:15 Wound - Right Foot Gram Stain - Final 10/29/24 20:15 Wound - Right Foot Wound Culture - Preliminary Staphylococcus aureus Gram positive organism 10/29/24 18:20 Blood Culture (Wb) - Anticubital Left Blood Culture - Preliminary No growth in 48 hours. 10/29/24 17:35 Blood Culture (Wb) - Anticubital Left Blood Culture - Preliminary No growth in 48 hours. 10/29/24 20:15 Wound - Left Foot Gram Stain - Final 10/29/24 20:15 Wound - Left Foot Wound Culture - Preliminary Gram negative lea Beta hemolytic organism 10/29/24 20:15 Wound - Left Foot Gram Stain - Final Physical Exam Narrative Seen and examined. Patient moved his bowels yesterday. No acute issues. Cultures growing multipleorganisms. Patient's . The bedside Bilateral lower leg/feet ulcer left worse than right. Right superficial ulcer over lateral toes/lateral margin of forefoot. History of diabetes mellitus for many years, complicated with diabetic neuropathy. Physical exam General: Alert, Oriented x3, Cooperative. Obesity grade 1, BMI 32.1 kg/m? HEENT: Atraumatic, PERRLA, EOMI, Normocephalic. Oral: No Gingival or Mucosal Lesions/ Ulcerations Neck: Supple, No JVD, Negative Carotid Bruits Chest wall/Lungs: Air entry diminished in bilateral lung bases. No crepitation/rhonchi Cardiovascular: Regular rate and rhythm, Normal S1,S2, No M/G/R Abdomen: Bowel Sounds Present, Soft, Non Tender, Non-Distended : No dysuria. No renal angle tenderness. No suprapubic tenderness. Extremities: No edema, Capillary Refill Less than 3 Seconds Skin: Ulcer over left and right feet covered with a dressing. Left foot with Rachel wrap bandage. Musculoskeletal: No Tenderness to Palpation of Joints or Extremities Neurological: Cranial nerves II-XII grossly intact, DTR 2+/4. Neuropathy. Psych/Mental Status: Flat affect. Assessment & Plan Assessment/Plan (1) Sepsis: QUALIFIERS: Sepsis acute organ dysfunction status: without acute organ dysfunction Sepsis type: sepsis due to unspecified organism Qualified Code(s): A41.9 - Sepsis, unspecified organism (2) Acute osteomyelitis of left foot: (3) Diabetic infection of left foot: PLAN: Plan 64-year-old gentleman was admitted with high fever 103.7 Fahrenheit, drainage from the little toe of left foot with no sensation. X-ray of the foot shows subcutaneous air and destruction of proximal phalanx of the little toe/probably head of the fifth metatarsal. 1. Left foot osteomyelitis and diabetic foot ulcer status postdebridement: Patient initially admitted in ICU and then transferred to [facility] floor. Patient has left fifth toe and fifth metatarsal osteomyelitis, gas gangrene as per operative note. Debridement of ulceration down including bone on 10/29/2024 Does not meet criteria for sepsis at the time of admission. Started on broad-spectrum antibiotic IV vancomycin and Zosyn. Prelim wound culture growing Staph aureus. ID consulted for tomorrow. Continue nonweightbearing on his left lower extremity and given the multiple ulcers he has on his right foot he is heel weightbearing on the right 11/01: Wound culture growing Proteus mirabilis and Staph aureus. 1+ GPC, GNR 1+ beta-hemolytic organism 3+. 11/02: Multiple organisms growing. Wound culture positive for GNR x 2, Proteus, strep and staph aureus so far. Wound culture on 10/06 shows a small NAD, GBS, corynebacterium and staph epi lactulose. Recommended to continue Vanco and Zosyn. 2. Complicated DM type II with diabetic polyneuropathy: Glucose 86. Glucocheckalso between 70-99. Avoid hypoglycemia. On hypoglycemia protocol. Hold metformin 3. Essential hypertension and dyslipidemia ?Blood pressure 142/80. Controlled. Lisinopril and metoprolol resumed. ? Continue to monitor 4. Chronic DVT/PE Xarelto resumed 5. Gout ? Continue with allopurinol DVT: SCDs Charges/Coding Visit Charges Inpatient E&M: 80582 Subs Hosp L2 11/01/24 1256 Cosigner Signature (if applicable): CC: ~ Signed [facility]09-15-2025 Consult note [facility] Medical Records Department [address] [place] [address] Consultation - Infectious Dx 11/01/24 1142 MR#: [id number] Acct: [id number] Name: JEFFERSON CARCAMO Rep #:[id number] : 1960 64 From: Marco mendez MD PCP: Dr. Mayco Fenton MD Status:ADM I N Location: [place] [address] Assessment & Plan Assessment/Plan (1) Gangrene, not elsewhere classified: (2) Diabetes mellitus with diabetic polyneuropathy: QUALIFIERS: Diabetes mellitus type: type 2 Diabetes mellitus chcf insulin use: without locomotive crane operator helper use Qualified Code(s): E11.42 - Type 2 diabetes mellitus with diabetic polyneuropathy (3) Acute osteomyelitis of left foot: PLAN: Taken to OR 10/29/[address] Lynch for L 5th toe and metatarsal I&D and partial resection. Also with I&D of R foot. Wound cxs with GNR x2, proteus, strep, and staph aureus so far. Woundcx in 09/2024 with S warneri , GBS, corynebacterium, staph epi, and anaerobes. Cont vanc/zosyn. Will follow, thank you HPI Consult Data Date of Consult: 11/01/24 HPI Narrative Reason for Consultation: osteo HPI Narrative: JEFFERSON CARCAMO, is a 64 M with h/o DM neuropathy, htn, DVT/PE, has been dealing with bilat foot ulcers. On 10/29 presented to ED with 2-3 days progressive L foot redness, swelling, drainage and associated fever/chills. No known incitingevent. Seen by podiatry, taken urgently to OR 10/29/[address] Lynch. Feeling better this Am, no fever, no pain in feet. Full ROS performed and neg except as noted above. 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 11/01/24 05:30 11/01/24 05:30 Labs: Laboratory Results - last 24 hr 10/31/24 16:31: POC Glucose 146 H 10/31/24 22:19: POC Glucose 134 H 11/01/24 05:30: WBC 8.4, RBC 3.44 L, Hgb 10.2 L, Hct 31.2 L, MCV 90.7, MCH 29.7,MCHC 32.7, RDW Std Deviation 41.1, RDW Coeff of Sujey 12.4, Plt Count 258, MPV 9.3, Immature Gran % (Auto) 0.400, Neut % (Auto) 66.3, Lymph % (Auto) 20.1, [place]% (Auto) 10.1 H, Eos % (Auto) 2.6, Baso % (Auto) 0.5, AbsoluteNeuts (auto) 5.6,Absolute Lymphs (auto) 1.69, Nucleated RBC % 0, Sodium 137, Potassium 3.7, Chloride 103, Carbon Dioxide 24.1, Anion Gap 9, BUN 16, Creatinine 0.97, Estim Creat Clear Calc 94.31, Est GFR (MDRD) Non-Af 88, BUN/Creatinine Ratio 16.9, Glucose 122 H, Calcium 8.7, Total Bilirubin 0.47, AST 45 H, ALT 60 H, Alkaline Phosphatase 141 H, Total Protein 5.9, Albumin 2.7 L, Globulin 3.2, Albumi n/Globulin Ratio 0.8 L 11/01/24 05:50: POC Glucose 124 H Micro: Microbiology 10/29/24 20:15 Wound - Left Foot Gram Stain - Final 10/29/24 20:15 Wound - Left Foot Wound Culture - Preliminary Gram negative lea Gram negative lea#2 Beta hemolytic organism 10/29/24 20:15 Wound - Left Foot Gram Stain - Final 10/29/24 20:15 Wound - Left Foot Wound Culture - Preliminary Beta streptococcus 10/29/24 18:20 Urine, Clean Catch Urine Culture - Preliminary Mixed Gram Positive Organisms 10/29/24 17:45 Wound - Left Foot Gram Stain - Final 10/29/24 17:45 Wound - Left Foot Wound Culture - Preliminary Proteus mirabilis Gram positive organism 10/29/24 17:45 Wound - Toe Gram Stain - Final 10/29/24 17:45 Wound - Toe Wound Culture - Preliminary Proteus mirabilis Mixed Gram Positive Organisms 10/29/24 20:15 Wound - Right Foot Gram Stain - Final 10/29/24 20:15 Wound - Right Foot Wound Culture - Preliminary Staphylococcus aureus Gram positive organism 10/29/24 18:20 Blood Culture (Wb) - Anticubital Left Blood Culture - Preliminary No growth in 48 hours. 10/29/24 17:35 Blood Culture (Wb) - Anticubital Left Blood Culture - Preliminary No growth in 48 hours. 11/01/24 1148 Cosigner Signature (if applicable): CC: Dr. Mayco Fenton MD~ Signed [facility]09-14-2025 Progress note Author Javy Lynch [facility] Note Date/Time October 31, 2024 6:16pm [facility] Medical Records Department [address] [place] [address] Progress Note 10/31/24 1253 MR#: [id number] Acct: [id number] Name: JEFFERSON CARCAMO Rep #:[id number] : 1960 64 From: Javy Lynch DPM PCP: Dr. Mayco Fenton MD Status:ADM I N Location: [place] [address] Subjective Subjective Patient was seen today for follow up on bilateral feet. He is resting comfortably in bed, no f/c/n/v or any new complaints. His girlfriend is at bedside visiting. Objective Data Objective Data Vital Signs: Vital Signs Temp Pulse Resp BP Pulse Ox O2 Del Method 97.7 F L 87 16 142/80 H 99 Room Air 10/31/24 09:05 10/31/24 09:05 10/31/24 09:05 10/31/24 09:05 10/31/24 09:05 10/31/24 09:05 Oxygen Delivery Method Room Air Weight: 101.6 kg Body Mass Index (BMI) 32.1 Intake & Output: Intake and Output for Last 24 Hours 10/29/24 10/30/24 10/31/24 23:59 23:59 23:59 Intake Total 2640 / 2640 4189.5 / 4189.5 935 / 935 Output Total 75 / 75 1025 / 1025 1600 / 1600 Balance 2565 / 2565 3164.5 / 3164.5 -665 / -665 Lab / Micro Data 10/31/24 07:36 10/31/24 07:36 Labs: Laboratory Results - last 24 hr 10/30/24 16:47: POC Glucose 70 L 10/30/24 22:43: POC Glucose 95 10/31/24 05:52: POC Glucose 78 10/31/24 07:36: WBC 9.9, RBC 3.45 L, Hgb 10.6 L, Hct 31.4 L, MCV 91.0, MCH 30.7,MCHC 33.8, RDW Std Deviation 41.5, RDW Coeff of Sujey 12.6, Plt Count 224, MPV 9.2, Immature Gran % (Auto) 0.400, Neut % (Auto) 70.2 H, Lymph % (Auto) 16.7 L, [place] % (Auto) 11.0 H, Eos % (Auto) 1.3, Baso % (Auto) 0.4, Absolute Neuts (auto)6.9, Absolute Lymphs (auto) 1.65, Nucleated RBC % 0, Sodium 136, Potassium 3.7, Chloride 103, Carbon Dioxide 22.8, Anion Gap 10, BUN 15, Creatinine 0.99, Estim Creat Clear Calc 92.40, Est GFR (MDRD) Non-Af 86, BUN/Creatinine Ratio 14.9, Glucose 86, Calcium 8.7, Total Bilirubin 0.54, AST 44 H, ALT 46, Alkaline Phosphatase 147 H, Total Protein 6.0, Albumin 2.7 L, Globulin 3.3, Albumin/Globulin Ratio 0.8 L, Vancomycin Trough 17.8 H 10/31/24 11:02: POC Glucose 176 H Micro: Microbiology 10/29/24 20:15 Wound - Left Foot Gram Stain - Final 10/29/24 20:15 Wound - Left Foot Wound Culture - Preliminary Gram negative lea Beta hemolytic organism 10/29/24 20:15 Wound - Right Foot Gram Stain - Final 10/29/24 20:15 Wound - Right Foot Wound Culture - Preliminary Staphylococcus aureus 10/29/24 17:45 Wound - Toe Gram Stain - Final 10/29/24 17:45 Wound - Toe Wound Culture - Preliminary Gram negative lea 10/29/24 17:45 Wound - Left Foot Gram Stain - Final 10/29/24 17:45 Wound - Left Foot Wound Culture - Preliminary Gram negative lea Gram positive organism 10/29/24 20:15 Wound - Left Foot Gram Stain - Final Physical Exam Const alert, oriented x3 and no apparent distress Constitutional Narrative: s/p debridement down to and including bone left foot - tissues are healthy and viable, hemostasis achieved, no fluctuance, no purulence, no necrosis, no crepitus, no maloder, continued less erythema and less edema to foot, bleeding remains controlled, no evidence of acute ischemia. Right foot with chronic ulceration to distal tip of 2nd toe and sub 5th MTPJ - there is even less edema and erythema today, ulcers down to subcutaneous tissue and do continue to look better today with more viable tissue, no purulence, no visible abscess, no crepitus, no fluctuance, no maloder. No evidence of acute ischemia right foot. Calf soft and supple with no calf pain bilateral. 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 Ok to resume anticoagulation from foot standpoint. Cultures left foot and ulcer right foot has been obtained, reviewed preliminary results, final results pending Wound care left foot: normal saline wet to dry gauze, with overlying gauze, kerlix, abd pads and rachel dressing daily - plan for wound vac Friday Wound care right foot: betadine solution, gauze, kerlix and rachel dressing changesdaily No weightbearing left foot, heel weightbearing right foot Keep left foot elevated LEAS have been ordered and pending - no evidence of acute ischemia at this time Podiatry will continue to follow 10/31/241815 <Electronically signed by Javy Lynch DPM> Javy Lynch DPM Cosigner Signature (if applicable): CC: ~ Signed [facility] Work Phone: [phone]) [phone] Progress note [facility] Medical Records Department [address] [place] [address] Progress Note 10/31/24 1253 MR#: [id number] Acct: [id number] Name: JEFFERSON CARCAMO Rep #:[id number] : 1960 64 From: Javy Lynch DPM PCP: Dr. Mayco Fenton MD Status:ADM I N Location: [facility] [id number] Subjective Subjective Patient was seen today for follow up on bilateral feet. He is resting comfortably in bed, no f/c/n/v or any new complaints. His girlfriend is at bedside visiting. Objective Data Objective Data Vital Signs: Vital Signs Temp Pulse Resp BP Pulse Ox O2 Del Method 97.7 F L 87 16 142/80 H 99 Room Air 10/31/24 09:05 10/31/24 09:05 10/31/24 09:05 10/31/24 09:05 10/31/24 09:05 10/31/24 09:05 Oxygen Delivery Method Room Air Weight: 101.6 kg Body Mass Index (BMI) 32.1 Intake & Output: Intake and Output for Last 24 Hours 10/29/24 10/30/24 10/31/24 23:59 23:59 23:59 Intake Total 2640 / 2640 4189.5 / 4189.5 935 / 935 Output Total 75 / 75 1025 / 1025 1600 / 1600 Balance 2565 / 2565 3164.5 / 3164.5 -665 / -665 Lab / Micro Data 10/31/24 07:36 10/31/24 07:36 Labs: Laboratory Results - last 24 hr 10/30/24 16:47: POC Glucose 70 L 10/30/24 22:43: POC Glucose 95 10/31/24 05:52: POC Glucose 78 10/31/24 07:36: WBC 9.9, RBC 3.45 L, Hgb 10.6 L, Hct 31.4 L, MCV 91.0, MCH 30.7,MCHC 33.8, RDW Std Deviation 41.5, RDW Coeff of Sujey 12.6, Plt Count 224, MPV 9.2, Immature Gran % (Auto) 0.400, Neut % (Auto) 70.2 H, Lymph % (Auto) 16.7 L, [place] % (Auto) 11.0 H, Eos % (Auto) 1.3, Baso % (Auto) 0.4, Absolute Neuts (auto)6.9, Absolute Lymphs (auto) 1.65, Nucleated RBC % 0, Sodium 136, Potassium 3.7, Chloride 103, Carbon Dioxide 22.8, Anion Gap 10, BUN 15, Creatinine 0.99, Estim Creat Clear Calc 92.40, Est GFR (MDRD) Non-Af 86, BUN/Creatinine Ratio 14.9, Glucose 86, Calcium 8.7, Total Bilirubin 0.54, AST 44 H, ALT 46, Alkaline Phosphatase 147 H, Total Protein 6.0, Albumin 2.7 L, Globulin 3.3, Album in/Globulin Ratio 0.8 L, Vancomycin Trough 17.8 H 10/31/24 11:02: POC Glucose 176 H Micro: Microbiology 10/29/24 20:15 Wound - Left Foot Gram Stain - Final 10/29/24 20:15 Wound - Left Foot Wound Culture - Preliminary Gram negative lea Beta hemolytic organism 10/29/24 20:15 Wound - Right Foot Gram Stain - Final 10/29/24 20:15 Wound - Right Foot Wound Culture - Preliminary Staphylococcus aureus 10/29/24 17:45 Wound - Toe Gram Stain - Final 10/29/24 17:45 Wound - Toe Wound Culture - Preliminary Gram negative lea 10/29/24 17:45 Wound - Left Foot Gram Stain - Final 10/29/24 17:45 Wound - Left Foot Wound Culture - Preliminary Gram negative lea Gram positive organism 10/29/24 20:15 Wound - Left Foot Gram Stain - Final Physical Exam Const alert, oriented x3 and no apparent distress Constitutional Narrative: s/p debridement down to and including bone left foot - tissues are healthy and viable, hemostasis achieved, no fluctuance, no purulence, no necrosis, no crepitus, no maloder, continued less erythema and less edema to foot, bleeding remains controlled, no evidence of acute ischemia. Right foot with chronic ulceration to distal tip of 2nd toe and sub 5th MTPJ - there is even less edema and erythematoday, ulcers down to subcutaneous tissue and do continue to look better today with more viable tissue, no purulence, no visible abscess, no crepitus, no fluctuance, no maloder. No evidence of acute ischemia right foot. Calf soft and supple with no calf pain bilateral. General Appearance: comfortable Assessment & Plan Assessment/Plan (1) Gangrene, not elsewhere classified: (2) Acute osteomyelitis of left foot: (3) Cellulitis of left lower limb: (4) Diabetes mellitus with diabetic polyneuropathy: QUALIFIERS: Diabetes mellitus type: type 2 Diabetes mellitus chcf insulin use: without fci use Qualified Code(s): E11.42 - Type 2 diabetes mellitus with diabetic polyneuropathy (5) Type 2 diabetes mellitus with foot ulcer: PLAN: Plan s/p left foot debridement on 10/29/2024 - continues to improve, right foot improved as well. Ok to resume anticoagulation from foot standpoint. Cultures left foot and ulcer right foot has been obtained, reviewed preliminary results, final results pending Wound care left foot: normal saline wet to dry gauze, with overlying gauze, kerlix, abd pads and rachel dressing daily - plan for wound vac Friday Wound care right foot: betadine solution, gauze, kerlix and rachel dressing changesdaily No weightbearing left foot, heel weightbearing right foot Keep left foot elevated LEAS have been ordered and pending - no evidence of acute ischemia at this time Podiatry will continue to follow 10/31/241815 Javy Lynch DPM Cosigner Signature (if applicable): CC: ~ Signed [facility]09-14-2025 Progress note Author Wes Arellano [facility] Note Date/Time October 31, 2024 11:25am [facility] Medical Records Department [address] [place] [address] Progress Note - Hospitalist 10/31/24 1115 MR#: [id number] Acct: [id number] Name: CARLOS ALBERTOJEFFERSON Kathleen Rep #:[id number] : 1960 64 From: Wes Brunner PCP: Dr. Mayco Fenton MD Status:ADM I N Location: [place] [address] Reason for Visit Chief Complaint: Worsening Left Foot Wound with Fever. Objective Data Objective Data Vital Signs: Vital Signs Temp Pulse Resp BP Pulse Ox O2 Del Method 97.7 F L 87 16 142/80 H 99 Room Air 10/31/24 09:05 10/31/24 09:05 10/31/24 09:05 10/31/24 09:05 10/31/24 09:05 10/31/24 09:05 Oxygen Delivery Method Room Air Weight: 223 lb 15.834 oz Body Mass Index (BMI) 32.1 Intake & Output: Intake and Output for Last 24 Hours 10/29/24 10/30/24 10/31/24 23:59 23:59 23:59 Intake Total 2640 / 2640 4189.5 / 4189.5 400 / 400 Output Total 75 / 75 1025 / 1025 1600 / 1600 Balance 2565 / 2565 3164.5 / 3164.5 -1200 / -1200 Lab / Micro Data 10/31/24 07:36 10/31/24 07:36 Labs: Laboratory Results - last 24 hr 10/30/24 11:08: POC Glucose 99 10/30/24 16:47: POC Glucose 70 L 10/30/24 22:43: POC Glucose 95 10/31/24 05:52: POC Glucose 78 10/31/24 07:36: WBC 9.9, RBC 3.45 L, Hgb 10.6 L, Hct 31.4 L, MCV 91.0, MCH 30.7,MCHC 33.8, RDW Std Deviation 41.5, RDW Coeff of Sujey 12.6, Plt Count 224, MPV 9.2, Immature Gran % (Auto) 0.400, Neut % (Auto) 70.2 H, Lymph % (Auto) 16.7 L, [place] % (Auto) 11.0 H, Eos % (Auto) 1.3, Baso % (Auto) 0.4, Absolute Neuts (auto)6.9, Absolute Lymphs (auto) 1.65, Nucleated RBC % 0, Sodium 136, Potassium 3.7, Chloride 103, Carbon Dioxide 22.8, Anion Gap 10, BUN 15, Creatinine 0.99, Estim Creat Clear Calc 92.40, Est GFR (MDRD) Non-Af 86, BUN/Creatinine Ratio 14.9, Glucose 86, Calcium 8.7, Total Bilirubin 0.54, AST 44 H, ALT 46, Alkaline Phosphatase 147 H, Total Protein 6.0, Albumin 2.7 L, Globulin 3.3, Albumin/Globulin Ratio 0.8 L, Vancomycin Trough 17.8 H Micro: Microbiology 10/29/24 20:15 Wound - Right Foot Gram Stain - Final 10/29/24 20:15 Wound - Right Foot Wound Culture - Preliminary Staphylococcus aureus 10/29/24 17:45 Wound - Toe Gram Stain - Final 10/29/24 17:45 Wound - Toe Wound Culture - Preliminary Gram negative lea 10/29/24 17:45 Wound - Left Foot Gram Stain - Final 10/29/24 17:45 Wound - Left Foot Wound Culture - Preliminary Gram negative lea Gram positive organism 10/29/24 20:15 Wound - Left Foot Gram Stain - Final 10/29/24 20:15 Wound - Left Foot Gram Stain - Final Physical Exam Narrative Seen and examined. Bilateral lower leg/feet ulcer left worse than right. Right superficial ulcer over lateral toes/lateral margin of forefoot. History of diabetes mellitus for many years, complicated with diabetic neuropathy. Did not move bowels since Friday. Usually most bowel in 1.5 days. Physical exam General: Alert, Oriented x3, Cooperative. Obesity grade 1, BMI 32.1 kg/m? HEENT: Atraumatic, PERRLA, EOMI, Normocephalic. Oral: No Gingival or Mucosal Lesions/ Ulcerations Neck: Supple, No JVD, Negative Carotid Bruits Chest wall/Lungs: Air entry diminished in bilateral lung bases. No crepitation/rhonchi Cardiovascular: Regular rate and rhythm, Normal S1,S2, No M/G/R Abdomen: Bowel Sounds Present, Soft, Non Tender, Non-Distended : No dysuria. No renal angle tenderness. No suprapubic tenderness. Extremities: No edema, Capillary Refill Less than 3 Seconds Skin: Ulcer over left and right feet covered with a dressing. Left foot with Rachel wrap bandage. Musculoskeletal: No Tenderness to Palpation of Joints or Extremities Neurological: Cranial nerves II-XII grossly intact, DTR 2+/4. Neuropathy. Psych/Mental Status: Flat affect. Assessment & Plan Assessment/Plan (1) Sepsis: QUALIFIERS: Sepsis type: sepsis due to unspecified organism Sepsis acute organ dysfunction status: without acute organ dysfunction QualifiedCode(s): A41.9 - Sepsis, unspecified organism (2) Acute osteomyelitis of left foot: (3) Diabetic infection of left foot: PLAN: Plan 64-year-old gentleman was admitted with high fever 103.7 Fahrenheit, drainage from the little toe of left foot with no sensation. X-ray of the foot shows subcutaneous air and destruction of proximal phalanx of the little toe/probably head of the fifth metatarsal. 1. Left foot osteomyelitis and diabetic foot ulcer status postdebridement: Patient initially admitted in ICU and then transferred to [facility] floor. Patient has left fifth toe and fifth metatarsal osteomyelitis, gas gangrene as per operative note. Debridement of ulceration down including bone on 10/29/2024 Does not meet criteria for sepsis at the time of admission. Started on broad-spectrum antibiotic IV vancomycin and Zosyn. Prelim wound culture growing Staph aureus. ID consulted for tomorrow. Continue nonweightbearing on his left lower extremity and given the multiple ulcers he has on his right foot he is heel weightbearing on the right 2. Complicated DM type II with diabetic polyneuropathy: Glucose 86. Gluc[place]ckalso between 70-99. Avoid hypoglycemia. On hypoglycemia protocol. Hold metformin 3. Essential hypertension and dyslipidemia ?Blood pressure 142/80. Controlled. Lisinopril and metoprolol resumed. ? Continue to monitor 4. Chronic DVT/PE Xarelto resumed 5. Gout ? Continue with allopurinol DVT: SCDs Charges/Coding Visit Charges Inpatient E&M: 35585 Subs Hosp L2 10/31/24 1125 <Electronically signed by Wes Arellano MD> Cosigner Signature (if applicable): CC: ~ Signed [facility] Work Phone: [phone]) 548-677109-14-2025 Consult note Author Chrissy Bowen [facility] Note Date/Time October 31, 2024 11:15am [facility] Medical Records Department [address] [place] [address] Pharmacokinetic/Renal -Consult 10/31/24 1024 MR#: [id number] Acct: [id number] Name: JEFFERSON CARCAMO Rep #:[id number] : 1960 64 From: Chrissy Boewn PCP: Dr. Mayco Fenton MD Status:ADM I N Y Location: [place] [address] Consult Antibiotic Management Pharmacy has been consulted to manage selected antibiotic: Vancomycin Type of Intervention Type of Consult: Follow-up Labs Labs: Sodium 136 mmol/L (133-145) 10/31/24 07:36 Potassium 3.7 mmol/L (3.3-5.1) 10/31/24 07:36 Chloride 103 mmol/L (98-108) 10/31/24 07:36 Carbon Dioxide 22.8 mmol/L (21.0-32.0) 10/31/24 07:36 Anion Gap 10 (5-15) 10/31/24 07:36 BUN 15 mg/dL (4-19) 10/31/24 07:36 Creatinine 0.99 mg/dL (0.70-1.20) 10/31/24 07:36 Est GFR (MDRD) Non-Af 86 (>60) 10/31/24 07:36 BUN/Creatinine Ratio 14.9 RATIO (10-20) 10/31/24 07:36 Glucose 86 mg/dL (70-99) 10/31/24 07:36 Vancomycin Trough 17.8 ug/mL (5.0-15.0) H 10/31/24 07:36 Microbiology Microbiology: Microbiology 10/29/24 20:15 Wound - Right Foot Gram Stain - Final 10/29/24 20:15 Wound - Right Foot Wound Culture - Preliminary Staphylococcus aureus 10/29/24 17:45 Wound - Toe Gram Stain - Final 10/29/24 17:45 Wound - Toe Wound Culture - Preliminary Gram negative lea 10/29/24 17:45 Wound - Left Foot Gram Stain - Final 10/29/24 17:45 Wound - Left Foot Wound Culture - Preliminary Gram negative lea Gram positive organism 10/29/24 20:15 Wound - Left Foot Gram Stain - Final 10/29/24 20:15 Wound - Left Foot Gram Stain - Final Pharmacy Plan for Drug Dosing Pharmacy Plan for Drug Dosing: VANCOMYCIN LEVEL RECEIVED Current Vancomycin Dose: 1750MG Q12 Number of Doses Received: 3 Vancomycin Level: 17.8 MG/DL Hours Since Last Dose: 12 Renal Function: SCr 0.99 mg/dL, CrCl 92.4 mL/min Renal Function Trend: improving Vancomycin Plan/Comments: 12 hour trough is therapeutic at 17.8 mg/dL (goal 15- 20). Will continue current dosing and get a level in 2 days. Pending Level: 11/02/24 @ 0730 Pharmacy Service will continue to monitor and adjust dosing as required. 10/31/24 1024 <Electronically signed by Chrissy Bowen> Date _ Chrissy Bowen 10/31/24 1115 <Electronically signed by Wes Arellano MD> Cosigner Signature (if applicable): Date Wes Arellano MD CC: ~ Signed [facility] Work Phone: [phone]) [phone] Progress note [facility] Medical Records Department [address] [place] [address] Progress Note - Hospitalist 10/31/24 1115 MR#: [id number] Acct: [id number] Name: JEFFERSON CARCAMO Rep #:[id number] : 1960 64 From: Wes Brunner PCP: Dr. Mayco Fenton MD Status:ADM I N Location: [place] [address] Reason for Visit Chief Complaint: Worsening Left Foot Wound with Fever. Objective Data Objective Data Vital Signs: Vital Signs Temp Pulse Resp BP Pulse Ox O2 Del Method 97.7 F L 87 16 142/80 H 99 Room Air 10/31/24 09:05 10/31/24 09:05 10/31/24 09:05 10/31/24 09:05 10/31/24 09:05 10/31/24 09:05 Oxygen Delivery Method Room Air Weight: 223 lb 15.834 oz Body Mass Index (BMI) 32.1 Intake & Output: Intake and Output for Last 24 Hours 10/29/24 10/30/24 10/31/24 23:59 23:59 23:59 Intake Total 2640 / 2640 4189.5 / 4189.5 400 / 400 Output Total 75 / 75 1025 / 1025 1600 / 1600 Balance 2565 / 2565 3164.5 / 3164.5 -1200 / -1200 Lab / Micro Data 10/31/24 07:36 10/31/24 07:36 Labs: Laboratory Results - last 24 hr 10/30/24 11:08: POC Glucose 99 10/30/24 16:47: POC Glucose 70 L 10/30/24 22:43: POC Glucose 95 10/31/24 05:52: POC Glucose 78 10/31/24 07:36: WBC 9.9, RBC 3.45 L, Hgb 10.6 L, Hct 31.4 L, MCV 91.0, MCH 30.7,MCHC 33.8, RDW Std Deviation 41.5, RDW Coeff of Sujey 12.6, Plt Count 224, MPV 9.2, Immature Gran % (Auto) 0.400, Neut % (Auto) 70.2 H, Lymph % (Auto) 16.7 L, [place] % (Auto) 11.0 H, Eos % (Auto) 1.3, Baso % (Auto) 0.4, Absolute Neuts (auto)6.9, Absolute Lymphs (auto) 1.65, Nucleated RBC % 0, Sodium 136, Potassium 3.7, Chloride 103, Carbon Dioxide 22.8, Anion Gap 10, BUN 15, Creatinine 0.99, Estim Creat Clear Calc 92.40, Est GFR (MDRD) Non-Af 86, BUN/Creatinine Ratio 14.9, Glucose 86, Calcium 8.7, Total Bilirubin 0.54, AST 44 H, ALT 46, Alkaline Phosphatase 147 H, Total Protein 6.0, Albumin 2.7 L, Globulin 3.3, Album in/Globulin Ratio 0.8 L, Vancomycin Trough 17.8 H Micro: Microbiology 10/29/24 20:15 Wound - Right Foot Gram Stain - Final 10/29/24 20:15 Wound - Right Foot Wound Culture - Preliminary Staphylococcus aureus 10/29/24 17:45 Wound - Toe Gram Stain - Final 10/29/24 17:45 Wound - Toe Wound Culture - Preliminary Gram negative lea 10/29/24 17:45 Wound - Left Foot Gram Stain - Final 10/29/24 17:45 Wound - Left Foot Wound Culture - Preliminary Gram negative lea Gram positive organism 10/29/24 20:15 Wound - Left Foot Gram Stain - Final 10/29/24 20:15 Wound - Left Foot Gram Stain - Final Physical Exam Narrative Seen and examined. Bilateral lower leg/feet ulcer left worse than right. Right superficial ulcer over lateral toes/lateral margin of forefoot. History of diabetes mellitus for many years, complicated with diabetic neuropathy. Did not move bowels since Mario. Usually most bowel in 1.5 days. Physical exam General: Alert, Oriented x3, Cooperative. Obesity grade 1, BMI 32.1 kg/m? HEENT: Atraumatic, PERRLA, EOMI, Normocephalic. Oral: No Gingival or Mucosal Lesions/ Ulcerations Neck: Supple, No JVD, Negative Carotid Bruits Chest wall/Lungs: Air entry diminished in bilateral lung bases. No crepitation/rhonchi Cardiovascular: Regular rate and rhythm, Normal S1,S2, No M/G/R Abdomen: Bowel Sounds Present, Soft, Non Tender, Non-Distended : No dysuria. No renal angle tenderness. No suprapubic tenderness. Extremities: No edema, Capillary Refill Less than 3 Seconds Skin: Ulcer over left and right feet covered with a dressing. Left foot with Rachel wrap bandage. Musculoskeletal: No Tenderness to Palpation of Joints or Extremities Neurological: Cranial nerves II-XII grossly intact, DTR 2+/4. Neuropathy. Psych/Mental Status: Flat affect. Assessment & Plan Assessment/Plan (1) Sepsis: QUALIFIERS: Sepsis type: sepsis due to unspecified organism Sepsis acute organ dysfunction status: without acute organ dysfunction QualifiedCode(s): A41.9 - Sepsis, unspecified organism (2) Acute osteomyelitis of left foot: (3) Diabetic infection of left foot: PLAN: Plan 64-year-old gentleman was admitted with high fever 103.7 Fahrenheit, drainage from the little toe of left foot with no sensation. X-ray of the foot shows subcutaneous air and destruction of proximal phalanx of the little toe/probably head of the fifth metatarsal. 1. Left foot osteomyelitis and diabetic foot ulcer status postdebridement: Patient initially admitted in ICU and then transferred to [facility] floor. Patient has left fifth toe and fifth metatarsal osteomyelitis, gas gangrene as per operative note. Debridement of ulceration down including bone on 10/29/2024 Does not meet criteria for sepsis at the time of admission. Started on broad-spectrum antibiotic IV vancomycin and Zosyn. Prelim wound culture growing Staph aureus. ID consulted for tomorrow. Continue nonweightbearing on his left lower extremity and given the multiple ulcers he has on his right foot he is heel weightbearing on the right 2. Complicated DM type II with diabetic polyneuropathy: Glucose 86. Glucocheckalso between 70-99. Avoid hypoglycemia. On hypoglycemia protocol. Hold metformin 3. Essential hypertension and dyslipidemia ?Blood pressure 142/80. Controlled. Lisinopril and metoprolol resumed. ? Continue to monitor 4. Chronic DVT/PE Xarelto resumed 5. Gout ? Continue with allopurinol DVT: SCDs Charges/Coding Visit Charges Inpatient E&M: 12404 Subs Hosp L2 10/31/24 1125 Cosigner Signature (if applicable): CC: ~ Signed [facility]09-14-2025 Consult note [facility] Medical Records Department [address] [place] [address] Pharmacokinetic/Renal -Consult 10/31/24 1024 MR#: [id number] Acct: [id number] Name: JEFFERSON CARCAMO Rep #:[id number] : 1960 64 From: Chrissy Bowen PCP: Dr. Mayco Fenton MD Status:ADM I N Y Location: [place] [address] Consult Antibiotic Management Pharmacy has been consulted to manage selected antibiotic: Vancomycin Type of Intervention Type of Consult: Follow-up Labs Labs: Sodium 136 mmol/L (133-145) 10/31/24 07:36 Potassium 3.7 mmol/L (3.3-5.1) 10/31/24 07:36 Chloride 103 mmol/L (98-108) 10/31/24 07:36 Carbon Dioxide 22.8 mmol/L (21.0-32.0) 10/31/24 07:36 Anion Gap 10 (5-15) 10/31/24 07:36 BUN 15 mg/dL (4-19) 10/31/24 07:36 Creatinine 0.99 mg/dL (0.70-1.20) 10/31/24 07:36 Est GFR (MDRD) Non-Af 86 (>60) 10/31/24 07:36 BUN/Creatinine Ratio 14.9 RATIO (10-20) 10/31/24 07:36 Glucose 86 mg/dL (70-99) 10/31/24 07:36 Vancomycin Trough 17.8 ug/mL (5.0-15.0) H 10/31/24 07:36 Microbiology Microbiology: Microbiology 10/29/24 20:15 Wound - Right Foot Gram Stain - Final 10/29/24 20:15 Wound - Right Foot Wound Culture - Preliminary Staphylococcus aureus 10/29/24 17:45 Wound - Toe Gram Stain - Final 10/29/24 17:45 Wound - Toe Wound Culture - Preliminary Gram negative lea 10/29/24 17:45 Wound - Left Foot Gram Stain - Final 10/29/24 17:45 Wound - Left Foot Wound Culture - Preliminary Gram negative lea Gram positive organism 10/29/24 20:15 Wound - Left Foot Gram Stain - Final 10/29/24 20:15 Wound - Left Foot Gram Stain - Final Pharmacy Plan for Drug Dosing Pharmacy Plan for Drug Dosing: VANCOMYCIN LEVEL RECEIVED Current Vancomycin Dose: 1750MG Q12 Number of Doses Received: 3 Vancomycin Level: 17.8 MG/DL Hours Since Last Dose: 12 Renal Function: SCr 0.99 mg/dL, CrCl 92.4 mL/min Renal Function Trend: improving Vancomycin Plan/Comments: 12 hour trough is therapeutic at 17.8 mg/dL (goal 15- 20). Will continue current dosing and get a level in 2 days. Pending Level: 11/02/24 @ 0730 Pharmacy Service will continue to monitor and adjust dosing as required. 10/31/24 1024 Date _ Chrissy Bowen 10/31/24 1115 > Jakob Signature (if applicable): Date Wes Arellano MD CC: ~ Signed [facility]09-13-2025 Consult note Author Chrissy Bowen [facility] Note Date/Time October 30, 2024 7:10pm [facility] Medical Records Department [address] [place] [address] Pharmacokinetic/Renal -Consult 10/30/24 0741 MR#: [id number] Acct: [id number] Name: JEFFERSON CARCAMO Rep #:[id number] : 1960 64 From: Chrissy Bowen PCP: Dr. Mayco Fenton MD Status:ADM I N Y Location: [place] [address] Consult Antibiotic Management Pharmacy has been consulted to manage selected antibiotic: Vancomycin Type of Intervention Type of Consult: Follow-up Labs Labs: Sodium 135 mmol/L (133-145) 10/30/24 05:00 Potassium 3.6 mmol/L (3.3-5.1) 10/30/24 05:00 Chloride 105 mmol/L (98-108) 10/30/24 05:00 Carbon Dioxide 21.4 mmol/L (21.0-32.0) 10/30/24 05:00 Anion Gap 9 (5-15) 10/30/24 05:00 BUN 15 mg/dL (4-19) 10/30/24 05:00 Creatinine 1.07 mg/dL (0.70-1.20) 10/30/24 05:00 Est GFR (MDRD) Non-Af 78 (>60) 10/30/24 05:00 BUN/Creatinine Ratio 14.1 RATIO (10-20) 10/30/24 05:00 Glucose 85 mg/dL (70-99) 10/30/24 05:00 Pharmacy Plan for Drug Dosing Pharmacy Plan for Drug Dosing: DAILY ASSESSMENT Current Vancomycin Dose: 1250MG Q12 Number of Doses Received: 1 (LOADING DOSE) Current Renal Function: Scr 1.07 mg/dL, CrCl 85 mL/min Renal Function Trend: improved Lab/Micro: wound, urine and blood cx pending Any Change in Vanc Plan: yes, CrCl improved to 85 mL/min, dose changed to [id number] per policy. Pending Level: 10/31/24 @ 0730 Pharmacy Service will continue to monitor and adjust dosing as required. 10/30/24 0741 <Electronically signed by Chrissy Bowen> Date _ Chrissy Bowen 10/30/24 1910 <Electronically signed by Ruslan Larson DO> Cosigner Signature (if applicable): Date Ruslan Adams DO CC: ~ Signed [facility] Work Phone: 1(801) 752-785209-13-2025 Consult note [facility] Medical Records Department [address] [place] [address] Pharmacokinetic/Renal -Consult 10/30/24740 MR#: [id number] Acct: [id number] Name: JEFFERSON CARCAMO Rep #:[id number] : 1960 64 From: Chrissy Bowen PCP: Dr. Mayco Fenton MD Status:ADM I N Y Location: [place] [address] Consult Antibiotic Management Pharmacy has been consulted to manage selected antibiotic: Vancomycin Type of Intervention Type of Consult: Follow-up Labs Labs: Sodium 135 mmol/L (133-145) 10/30/24 05:00 Potassium 3.6 mmol/L (3.3-5.1) 10/30/24 05:00 Chloride 105 mmol/L (98-108) 10/30/24 05:00 Carbon Dioxide 21.4 mmol/L (21.0-32.0) 10/30/24 05:00 Anion Gap 9 (5-15) 10/30/24 05:00 BUN 15 mg/dL (4-19) 10/30/24 05:00 Creatinine 1.07 mg/dL (0.70-1.20) 10/30/24 05:00 Est GFR (MDRD) Non-Af 78 (>60) 10/30/24 05:00 BUN/Creatinine Ratio 14.1 RATIO (10-20) 10/30/24 05:00 Glucose 85 mg/dL (70-99) 10/30/24 05:00 Pharmacy Plan for Drug Dosing Pharmacy Plan for Drug Dosing: DAILY ASSESSMENT Current Vancomycin Dose: 1250MG Q12 Number of Doses Received: 1 (LOADING DOSE) Current Renal Function: Scr 1.07 mg/dL, CrCl 85 mL/min Renal Function Trend: improved Lab/Micro: wound, urine and blood cx pending Any Change in Vanc Plan: yes, CrCl improved to 85 mL/min, dose changed to [id number] per policy. Pending Level: 10/31/24 @ 0730 Pharmacy Service will continue to monitor and adjust dosing as required. 10/30/24740 Date _ Chrissy Bowen 10/30/241909 nzo DO> Cosigner Signature (if applicable): Date de Ruslan Morales DO CC: ~ Signed [facility]09-13-2025 Discharge summary Author Sriram Nunez [facility] Note Date/Time October 30, 2024 1:50pm [facility] Medical Records Department [address] [place] [address] Emergency Department Summary 10/29/24 MR#: [id number] Acct: [id number] Name: JEFFERSON CARCAMO Rep #:[id number] : 1960 64 From: Sriram Nunez MD PCP: Dr. Mayco Fenton MD Status:ADM I N Location: ICU CVICU20 1-[address] Sriram Nunez MD on 10/30/24 at 1350 Patient did not have endorgan dysfunction. Patient was not hypotensive. He didnot receive a 30 cc/kg bolus for this reason. 10/30/241349<Electronically signed by Sriram Nunez MD> Cosigner Signature (if applicable): cc: Dr. Mayco Fenton MD ~* Signed ADDENDUM by Dr. Sriram Nunez MD on 10/29/24 at 1919 Sinus tachycardia rate of 106. VT interval 132 ms per cures duration 78 ms. QTduration is 320 ms. [place]ington is normal. Other than sinus tachycardia the [...] He is present under the care of master black belt. Meteorological Observer is not in this area. He presents [...] 84.4 H Lymph % (Auto) 4.1 L [place] % (Auto) 7.8 Eos % (Auto) 2.6 [...] Sl. Cloudy Urine pH 6.0 Ur Specific [place] 1.015 Urine Protein 30 H Urine Glucose [...] proximal phalanx of the little toe and possiblyhead of the fifth metatarsal.) Management Discussion w/another healthcare provider: Hospitalist (Dr. Irene will see patient after after surgery since it is emergent. Plan is admit ICU) and Lumber Scaler (Case was discussed with Dr. Cheney. He [...] OR for emergent surgery. This), Discussing w/Patient&/or Family/Strategic Accounts Manager, Discussing w/Consultants and Arranging Admission or Transfer Discharge Plan Dx/Rx/DC Orders Clinical Impression: Diabetic infection of left foot, Hypertension, Sepsis, Acute osteomyelitis of left foot, Subcutaneous air, Sinus tachycardia Disposition Disposition: Acute Care Hospital [facility] What to do if you have Problems For any increased pain, shortness of breath, bleeding, nausea or vomiting, chestpain, or any unexpected problems, contact your Primary Care Provider. Call [facility] ([phone]) or report to the closest Emergency Room. Call 911 if necessary. 10/29/241917 <Electronically signed by Sriram Nunez MD> Cosigner Signature (if applicable): CC: Dr. Mayco Fenton MD ~ Signed [facility] Work Phone: 1(284) 316-993309-13-2025 Progress note Author Javy Lynch [facility] Note Date/Time October 30, 2024 12:21pm [facility] Medical Records Department [address] [place] [address] Progress Note 10/30/24 1216 MR#: [id number] Acct: [id number] Name: JEFFERSON CARCAMO Rep #:[id number] : 1960 64 From: Javy Lynch DPTari PCP: Dr. Mayco Fenton MD Status:ADM I N Location: ICU CVICU20 1-1 Subjective Subjective Patient was seen today for follow up on bilateral feet. He relates he is feelingbetter, no new complaints, no f/c/n/v/sob/chest pain. Objective Data Objective Data Vital Signs: Vital Signs Temp Pulse Resp BP Pulse Ox O2 Del Method 98.2 F 83 16 131/73 H 94 Room Air 10/30/24 09:00 10/30/24 10:00 10/30/24 10:00 10/30/24 10:00 10/30/24 10:00 10/30/24 10:00 Oxygen Delivery Method Room Air Weight: 101.1 kg Body Mass Index (BMI) 31.8 Intake & Output: Intake and Output for Last 24 Hours 10/28/24 10/29/24 10/30/24 23:59 23:59 23:59 Intake Total 2640 / 2640 2244.5 / 2244.5 Output Total 75 / 75 600 / 600 Balance 2565 / 2565 1644.5 / 1644.5 Lab / Micro Data 10/30/24 05:00 10/30/24 05:00 Labs: Laboratory Results - last 24 hr 10/29/24 17:35: WBC 22.9 H 10/29/24 17:35: WBC Cancelled, Corrected WBC Cancelled, RBC 3.92 L 10/29/24 17:35: RBC Cancelled, Hgb 11.9 L 10/29/24 17:35: Hgb Cancelled, Hct 36.2 L 10/29/24 17:35: Hct Cancelled, MCV 92.3 10/29/24 17:35: MCV Cancelled, MCH 30.4 10/29/24 17:35: MCH Cancelled, MCHC 32.9 10/29/24 17:35: MCHC Cancelled, RDW Std Deviation 42.7 10/29/24 17:35: RDW Std Deviation Cancelled, RDW Coeff of Sujey 12.6 10/29/24 17:35: RDW Coeff of Sujey Cancelled, Plt Count TNP 10/29/24 17:35: Plt Count Cancelled, MPV TNP 10/29/24 17:35: MPV Cancelled, Immature Gran % (Auto) 0.900 10/29/24 17:35: Immature Gran % (Auto) Cancelled, Neut % (Auto) 84.4 H 10/29/24 17:35: Neut % (Auto) Cancelled, Lymph % (Auto) 4.1 L 10/29/24 17:35: Lymph % (Auto) Cancelled, [place] % (Auto) 7.8 10/29/24 17:35: [place] % (Auto) Cancelled, Eos % (Auto) 2.6 10/29/24 17:35: Eos % (Auto) Cancelled, Baso % (Auto) 0.2 10/29/24 17:35: Baso % (Auto) Cancelled, Neut # (Auto) Cancelled, Immature Gran # (Auto) Cancelled, Absolute Neuts (auto) 19.4 H 10/29/24 17:35: Absolute Neuts (auto) Cancelled, Absolute Lymphs (auto) 0.93 10/29/24 17:35: Absolute Lymphs (auto) Cancelled, Absolute Monos (auto) Cancelled, Total Counted Cancelled, Neutrophils % (Manual) Cancelled, Band Neutrophils % Cancelled, Lymphocytes % (Manual) Cancelled, Monocytes % (Manual) Cancelled, Eosinophils % (Manual) Cancelled, Basophils % (Manual) Cancelled, Metamyelocytes % Cancelled, Myelocytes % Cancelled, Promyelocytes % Cancelled, Blast Cells % Cancelled, Plasma Cell % (Manual) Cancelled, Other Cells % Cancelled, Nucleated RBC % 0 10/29/24 17:35: Nucleated RBC % Cancelled, Lymphocytes # Cancelled, Basophils # Cancelled, Nucleated RBCs/100 WBC Cancelled, Differential Comment SCANNED 10/29/24 17:35: Differential Comment Cancelled, Diff Path Review Cancelled, Hypersegmented Neuts Cancelled, Atypical Lymphocytes Cancelled, Reactive Lymphocytes Cancelled, Smudge Cells Cancelled, Eosinophilia # Cancelled, Toxic Granulation Cancelled, Toxic Vacuolation Cancelled, Dohle Bodies Cancelled, AuerRods Cancelled, Platelet Estimate MKD INC 10/29/24 17:35: Platelet Estimate Cancelled, Plt Morphology Comment Cancelled, RBC Morphology Cancelled 10/29/24 17:35: RBC Morphology Cancelled, Polychromasia Cancelled, HypochromasiaCancelled, Basophilic Stippling Cancelled, Anisocytosis Cancelled, Microcytosis Cancelled, Macrocytosis Cancelled, Spherocytes Cancelled, Sickle Cells Cancelled, Target Cells Cancelled, Tear Drop Cells Cancelled, Ovalocytes Cancelled, Stomatocytes Cancelled, Aleax[place] Bodies Cancelled, Janna Cells Cancelled, Bite Cells Cancelled, Crenated Cell Cancelled, Acanthocytes (Spur) Cancelled, Rouleaux Cancelled, Schistocytes Cancelled, ESR 84 H, PT 19.3 H, INR 1.6, APTT 21.5 L, Sodium 130 L 10/29/24 17:35: Sodium [...] Alkaline Phosphatase Cancelled, C-React Prot Ext Range 348.00 H 10/29/24 17:35: C-React Prot Ext Range Cancelled, Total Protein 7.2 10/29/24 17:35: Total Protein Cancelled, Albumin 3.4 10/29/24 17:35: Albumin Cancelled, Globulin 3.9 10/29/24 17:35: Globulin Cancelled, Albumin/Globulin Ratio 0.9 10/29/24 17:35: Albumin/Globulin Ratio Cancelled, TSH 0.797 10/29/24 18:20: Urine Color Cancelled 10/29/24 18:20: Urine Color Yellow, Urine Clarity Cancelled 10/29/24 18:20: Urine Clarity Sl. Cloudy, Urine pH Cancelled 10/29/24 18:20: Urine pH 6.0, Ur Specific [place] Cancelled 10/29/24 18:20: Ur Specific [place] 1.015, U Specif Grav (Refrac) Cancelled, Urine Protein Cancelled 10/29/24 18:20: Urine Protein 30 H, Urine Glucose (UA) Cancelled 10/29/24 18:20: Urine Glucose (UA) 100 H, Urine Ketones Cancelled 10/29/24 18:20: Urine Ketones Negative, Urine Occult Blood Cancelled 10/29/24 18:20: Urine Occult Blood 10 H, Urine Nitrite Cancelled 10/29/24 18:20: Urine Nitrite Negative, Urine Bilirubin Cancelled 10/29/24 18:20: Urine Bilirubin Negative, Urine Urobilinogen Cancelled 10/29/24 18:20: Urine Urobilinogen Normal, Ur Leukocyte Esterase Cancelled 10/29/24 18:20: Ur Leukocyte Esterase Negative, Urine RBC Cancelled 10/29/24 18:20: Urine RBC 0 SEEN, Urine WBC Cancelled 10/29/24 18:20: Urine WBC 0-5 SEEN, Ur Squamous Epith Cells Cancelled 10/29/24 18:20: Ur Squamous Epith Cells 0-5 SEEN, Ur Transition Epith Cell Cancelled, Ur Renal Epithelial Cell Cancelled, Calcium Oxalate Crystal Cancelled, Uric Acid Crystals Cancelled, Triple Phos Crystals Cancelled, Other Crystals Cancelled, Amorphous Sediment Cancelled, Urine Bacteria Cancelled 10/29/24 18:20: Urine Bacteria RARE, Hyaline Casts Cancelled 10/29/24 18:20: Hyaline Casts 0-5 SEEN, Fine Granular Casts Cancelled, Coarse Granular Casts Cancelled, Waxy Casts Cancelled, RBC Casts Cancelled, WBC Casts Cancelled, Urine Mucus Cancelled 10/29/24 18:20: Urine Mucus 0 SEEN, Urine Trichomonas Cancelled, Urine Yeast Cancelled 10/29/24 22:16: MRSA (PCR) Negative 10/29/24 22:21: Hemoglobin A1c 6.7 H, Lactic Acid 1.1 10/29/24 23:54: POC Glucose 118 H 10/30/24 04:57: POC Glucose 84 10/30/24 05:00: WBC 13.5 H, RBC 3.08 L, Hgb 9.5 L, Hct 27.8 L, MCV 90.3, MCH 30.8, MCHC 34.2, RDW Std Deviation 42.0, RDW Coeff of Sujey 12.8, Plt Count 199, MPV 9.3, Immature Gran % (Auto) 0.600, Neut % (Auto) 80.7 H, Lymph % (Auto) 8.9 L, [place] % (Auto) 9.6, Eos % (Auto) 0.1, Baso % (Auto) 0.1, Absolute Neuts (auto)10.9 H, Absolute Lymphs (auto) 1.20, Nucleated RBC % 0, Sodium 135, Potassium 3.6, Chloride 105, Carbon Dioxide 21.4, Anion Gap 9, BUN 15, Creatinine 1.07, Estim Creat Clear Calc 85.29, Est GFR (MDRD) Non-Af 78, BUN/Creatinine Ratio 14.1, Glucose 85, Calcium 8.0, Total Bilirubin 0.96, AST 24, ALT 36, Alkaline Phosphatase 125, Total Protein 5.7 L, Albumin 2.6 L, Globulin 3.0, Albumin/Globulin Ratio 0.9 10/30/24 11:08: POC Glucose 99 Radiography Diagnostic Testing: Radiology Impression Foot X-Ray 10/29/24 18:35 IMPRESSION: No acute fractures or dislocations. Soft tissue edema and emphysema at the 5th toe. If there is additional concern for osteomyelitis, recommend further evaluation with MRI. Reading [facility] Foot [facility]-Ray 10/29/24 23:45 IMPRESSION: As above. Reading Location: [id number] Physical Exam Const alert, oriented x3 and no apparent distress Constitutional Narrative: s/p debridement down to and including bone left foot - tissues are healthy and viable, no fluctuance, no purulence, no necrosis, no crepitus, no maloder, less erythema and less edema to foot, bleeding controlled, no evidence of acute ischemia. Right foot with chronic ulceration to distal tip of 2nd toe and sub 5th MTPJ - there is less edema and erythema today, ulcers down to subcutaneous tissue and do look better today with more viable tissue, no purulence, no visible abscess, no crepitus, no fluctuance, no maloder. No evidence of acute ischemia right foot. General Appearance: comfortable Assessment & Plan Assessment/Plan (1) Gangrene, not elsewhere classified: (2) Acute osteomyelitis of left foot: (3) Cellulitis of left lower limb: (4) Diabetes mellitus with diabetic polyneuropathy: QUALIFIERS: Diabetes mellitus type: type 2 Diabetes mellitus chcf insulin use: without fci use Qualified Code(s): E11.42 - Type 2 diabetes mellitus with diabetic polyneuropathy (5) Type 2 diabetes mellitus with foot ulcer: PLAN: Plan s/p left foot debridement on 10/29/2024 - clinically much improved today, right foot improved as well Cultures left foot and ulcer right foot has been obtained and final results pending Wound care left foot: normal saline wet to dry gauze, with overlying gauze, kerlix, abd pads and rachel dressing daily - plan for wound vac likely Friday Wound care right foot: betadine solution, gauze, kerlix and rachel dressing changesdaily No weightbearing left foot, heel weightbearing right foot Keep left foot elevated LEAS have been ordered and pending - no evidence of acute ischemia at this time Podiatry will continue to follow 10/30/24 1221 <Electronically signed by Javy Lynch DPM> Javy Lynch DPM Cosigner Signature (if applicable): CC: ~ Signed [facility] Work Phone: 1(948) 795-927809-13-2025 Discharge summary [facility] Medical Records Department [address] [place] [address] Emergency Department Summary 10/29/24 MR#: [id number] Acct: [id number] Name: JEFFERSON CARCAMO Rep #:[id number] : 1960 64 From: Sriram Nunez MD PCP: Dr. Mayco Fenton MD Status:ADM I N Location: ICU CVICU20 1-[address] Sriram Nunez MD on 10/30/24 at 1350 Patient did not have endorgan dysfunction. Patient was not hypotensive. He didnot receive a 30 cc/kg bolus for this reason. 10/30/24 1350 Cosigner Signature (if applicable): cc: Dr. Mayco Fenton MD ~* Signed ADDENDUM by Dr. Sriram Nunez MD on 10/29/24 at 1919 Sinus tachycardia rate of 106. VT interval 132 ms per cures duration 78 ms. QTduration is 320 ms. [place] is normal. Other than sinus tachycardia the EKG is normal 10/29/241918 Cosigner Signature (if applicable): cc: Dr. 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 He is present under the care of master black belt. Meteorological Observer is notin this area. He presents because of a [...] to inspection, nondistended, normoactive bowel sounds, non-tender, non- distended and no masses; Negative for hepatosplenomegaly GI [...] podiatry was consulted. Dr. Cheney is presently inthe department and looking at patient because of the subcu air noted on his x-ray. Lab Data Attestation: I reviewed the patient's lab results. Lab results narrative: White count is elevated 22.9 thousand with shift. H&H 11.9 and 36.2. PTT is slightly elevated 19.3 PTT is low. Comprehensive metabolic panel is mild [place] for mild hyponatremia and hypochloremia.BUN is elevated 21 to creatinine 1.31. Estimated [...] 84.4 H Lymph % (Auto) 4.1 L [place] % (Auto) 7.8 Eos % (Auto) 2.6 [...] Sl. Cloudy Urine pH 6.0 Ur Specific [place] 1.015 Urine Protein 30 H Urine Glucose [...] proximal phalanx of the little toe and possiblyhead of the fifth metatarsal.) Management Discussion w/another healthcare provider: Hospitalist (Dr. Irene will see patient after after surgery since it is emergent. Plan is admit ICU) and Lumber Scaler (Case was discussed with Dr. Cheney. Heinforming that he initially was treating the patient prior to him going to Dr. Glass.) Treatment and Re-Evaluation :: Sepsis workup was initiated after seeing patient. He was treated with Zosyn andvancomycin. Podiatrywas consulted. In light of the x-ray findings Dr. Wright repaged. Comments:: Plan is OR after seen by podiatry. He requested the hospitalist see him in the emergencydepartment for emergent clearance. Critical Care Time Critical Care Time: Yes Critical care time (excluding procedures): 30-74 minutes (33), Including time spent: (History, physical, documentation, independent or potation laboratory results and imaging consultation with podiatry, discussion with hospitalist, facilitate transfer to the OR for emergent surgery. This), Discussing w/Patient&/or Family/Strategic Accounts Manager, Discussing w/Consultants and Arranging Admission or Transfer Discharge Plan Dx/Rx/DC Orders Clinical Impression: Diabetic infection of left foot, Hypertension, Sepsis, Acute osteomyelitis of left foot, Subcutaneous air, Sinus tachycardia Disposition Disposition: Acute Care Hospital [facility] What to do if you have Problems For any increased pain, shortness of breath, bleeding, nausea or vomiting, chestpain, or any unexpected problems, contact your Primary Care Provider. Call [facility] ([phone]) or report tothe closest Emergency Room. Call 911 if necessary. 10/29/24 857 Cosigner Signature (if applicable): CC: Dr. Mayco Fenton MD ~ Signed [facility]09-13-2025 Progress note Author Delbert Mak [facility] Note Date/Time October 30, 2024 11:07am [facility] Medical Records Department [address] [place] [address] Progress Note - Hospitalist 10/30/24 1033 MR#: [id number] Acct: [id number] Name: JEFFERSON CARCAMO Rep #:[id number] : 1960 64 From: Delbert doan MD PCP: Dr. Mayco Fenton MD Status:ADM I N Location: ICU CVICU20 1-1 Subjective Subjective Doing well, had surgery last evening on his left foot Objective Data Objective Data Vital Signs: Vital Signs Temp Pulse Resp BP Pulse Ox O2 Del Method 98.2 F 83 16 131/73 H 94 Room Air 10/30/24 09:00 10/30/24 10:00 10/30/24 10:00 10/30/24 10:00 10/30/24 10:00 10/30/24 10:00 Oxygen Delivery Method Room Air Weight: 222 lb 14.197 oz Body Mass Index (BMI) 31.8 Intake & Output: Intake and Output for Last 24 Hours 10/29/24 10/30/24 10/31/24 03:59 03:59 03:59 Intake Total 4199.5 / 4199.5 150 / 150 Output Total 75 / 75 600 / 600 Balance 4124.5 / 4124.5 -450 / -450 Lab / Micro Data 10/30/24 05:00 10/30/24 05:00 Labs: Laboratory Results - last 24 hr 10/29/24 17:35: WBC 22.9 H 10/29/24 17:35: WBC Cancelled, Corrected WBC Cancelled, RBC 3.92 L 10/29/24 17:35: RBC Cancelled, Hgb 11.9 L 10/29/24 17:35: Hgb Cancelled, Hct 36.2 L 10/29/24 17:35: Hct Cancelled, MCV 92.3 10/29/24 17:35: MCV Cancelled, MCH 30.4 10/29/24 17:35: MCH Cancelled, MCHC 32.9 10/29/24 17:35: MCHC Cancelled, RDW Std Deviation 42.7 10/29/24 17:35: RDW Std Deviation Cancelled, RDW Coeff of Sujey 12.6 10/29/24 17:35: RDW Coeff of Sujey Cancelled, Plt Count TNP 10/29/24 17:35: Plt Count Cancelled, MPV TNP 10/29/24 17:35: MPV Cancelled, Immature Gran % (Auto) 0.900 10/29/24 17:35: Immature Gran % (Auto) Cancelled, Neut % (Auto) 84.4 H 10/29/24 17:35: Neut % (Auto) Cancelled, Lymph % (Auto) 4.1 L 10/29/24 17:35: Lymph % (Auto) Cancelled, [place] % (Auto) 7.8 10/29/24 17:35: [place] % (Auto) Cancelled, Eos % (Auto) 2.6 10/29/24 17:35: Eos % (Auto) Cancelled, Baso % (Auto) 0.2 10/29/24 17:35: Baso % (Auto) Cancelled, Neut # (Auto) Cancelled, Immature Gran # (Auto) Cancelled, Absolute Neuts (auto) 19.4 H 10/29/24 17:35: Absolute Neuts (auto) Cancelled, Absolute Lymphs (auto) 0.93 10/29/24 17:35: Absolute Lymphs (auto) Cancelled, Absolute Monos (auto) Cancelled, Total Counted Cancelled, Neutrophils % (Manual) Cancelled, Band Neutrophils % Cancelled, Lymphocytes % (Manual) Cancelled, Monocytes % (Manual) Cancelled, Eosinophils % (Manual) Cancelled, Basophils % (Manual) Cancelled, Metamyelocytes % Cancelled, Myelocytes % Cancelled, Promyelocytes % Cancelled, Blast Cells % Cancelled, Plasma Cell % (Manual) Cancelled, Other Cells % Cancelled, Nucleated RBC % 0 10/29/24 17:35: Nucleated RBC % Cancelled, Lymphocytes # Cancelled, Basophils # Cancelled, Nucleated RBCs/100 WBC Cancelled, Differential Comment SCANNED 10/29/24 17:35: Differential Comment Cancelled, Diff Path Review Cancelled, Hypersegmented Neuts Cancelled, Atypical Lymphocytes Cancelled, Reactive Lymphocytes Cancelled, Smudge Cells Cancelled, Eosinophilia # Cancelled, Toxic Granulation Cancelled, Toxic Vacuolation Cancelled, Dohle Bodies Cancelled, AuerRods Cancelled, Platelet Estimate MKD INC 10/29/24 17:35: Platelet Estimate Cancelled, Plt Morphology Comment Cancelled, RBC Morphology Cancelled 10/29/24 17:35: RBC Morphology Cancelled, Polychromasia Cancelled, HypochromasiaCancelled, Basophilic Stippling Cancelled, Anisocytosis Cancelled, Microcytosis Cancelled, Macrocytosis Cancelled, Spherocytes Cancelled, Sickle Cells Cancelled, Target Cells Cancelled, Tear Drop Cells Cancelled, Ovalocytes Cancelled, Stomatocytes Cancelled, Alexander-[place] Bodies Cancelled, Janna Cells Cancelled, Bite Cells Cancelled, Crenated Cell Cancelled, Acanthocytes (Spur) Cancelled, Rouleaux Cancelled, Schistocytes Cancelled, ESR 84 H, PT 19.3 H, INR 1.6, APTT 21.5 L, Sodium 130 L 10/29/24 17:35: Sodium [...] Alkaline Phosphatase Cancelled, C-React Prot Ext Range 348.00 H 10/29/24 17:35: C-React Prot Ext Range Cancelled, Total Protein 7.2 10/29/24 17:35: Total Protein Cancelled, Albumin 3.4 10/29/24 17:35: Albumin Cancelled, Globulin 3.9 10/29/24 17:35: Globulin Cancelled, Albumin/Globulin Ratio 0.9 10/29/24 17:35: Albumin/Globulin Ratio Cancelled, TSH 0.797 10/29/24 18:20: Urine Color Cancelled 10/29/24 18:20: Urine Color Yellow, Urine Clarity Cancelled 10/29/24 18:20: Urine Clarity Sl. Cloudy, Urine pH Cancelled 10/29/24 18:20: Urine pH 6.0, Ur Specific [place] Cancelled 10/29/24 18:20: Ur Specific [place] 1.015, U Specif Grav (Refrac) Cancelled, Urine Protein Cancelled 10/29/24 18:20: Urine Protein 30 H, Urine Glucose (UA) Cancelled 10/29/24 18:20: Urine Glucose (UA) 100 H, Urine Ketones Cancelled 10/29/24 18:20: Urine Ketones Negative, Urine Occult Blood Cancelled 10/29/24 18:20: Urine Occult Blood 10 H, Urine Nitrite Cancelled 10/29/24 18:20: Urine Nitrite Negative, Urine Bilirubin Cancelled 10/29/24 18:20: Urine Bilirubin Negative, Urine Urobilinogen Cancelled 10/29/24 18:20: Urine Urobilinogen Normal, Ur Leukocyte Esterase Cancelled 10/29/24 18:20: Ur Leukocyte Esterase Negative, Urine RBC Cancelled 10/29/24 18:20: Urine RBC 0 SEEN, Urine WBC Cancelled 10/29/24 18:20: Urine WBC 0-5 SEEN, Ur Squamous Epith Cells Cancelled 10/29/24 18:20: Ur Squamous Epith Cells 0-5 SEEN, Ur Transition Epith Cell Cancelled, Ur Renal Epithelial Cell Cancelled, Calcium Oxalate Crystal Cancelled, Uric Acid Crystals Cancelled, Triple Phos Crystals Cancelled, Other Crystals Cancelled, Amorphous Sediment Cancelled, Urine Bacteria Cancelled 10/29/24 18:20: Urine Bacteria RARE, Hyaline Casts Cancelled 10/29/24 18:20: Hyaline Casts 0-5 SEEN, Fine Granular Casts Cancelled, Coarse Granular Casts Cancelled, Waxy Casts Cancelled, RBC Casts Cancelled, WBC Casts Cancelled, Urine Mucus Cancelled 10/29/24 18:20: Urine Mucus 0 SEEN, Urine Trichomonas Cancelled, Urine Yeast Cancelled 10/29/24 22:16: MRSA (PCR) Negative 10/29/24 22:21: Hemoglobin A1c 6.7 H, Lactic Acid 1.1 10/29/24 23:54: POC Glucose 118 H 10/30/24 04:57: POC Glucose 84 10/30/24 05:00: WBC 13.5 H, RBC 3.08 L, Hgb 9.5 L, Hct 27.8 L, MCV 90.3, MCH 30.8, MCHC 34.2, RDW Std Deviation 42.0, RDW Coeff of Sujey 12.8, Plt Count 199, MPV 9.3, Immature Gran % (Auto) 0.600, Neut % (Auto) 80.7 H, Lymph % (Auto) 8.9 L, [place] % (Auto) 9.6, Eos % (Auto) 0.1, Baso % (Auto) 0.1, Absolute Neuts (auto)10.9 H, Absolute Lymphs (auto) 1.20, Nucleated RBC % 0, Sodium 135, Potassium 3.6, Chloride 105, Carbon Dioxide 21.4, Anion Gap 9, BUN 15, Creatinine 1.07, Estim Creat Clear Calc 85.29, Est GFR (MDRD) Non-Af 78, BUN/Creatinine Ratio 14.1, Glucose 85, Calcium 8.0, Total Bilirubin 0.96, AST 24, ALT 36, Alkaline Phosphatase 125, Total Protein 5.7 L, Albumin 2.6 L, Globulin 3.0, Albumin/Globulin Ratio 0.9 Radiography Diagnostic Testing: Radiology Impression Foot X-Ray 10/29/24 18:35 IMPRESSION: No acute fractures or dislocations. Soft tissue edema and emphysema at the 5th toe. If there is additional concern for osteomyelitis, recommend further evaluation with MRI. Reading [facility] Foot X-Ray 10/29/24 23:45 IMPRESSION: As above. Reading Location: [facility] Physical Exam Narrative General: Alert, Oriented x3, Cooperative, No apparent distress HEENT: Atraumatic, PERRLA, EOMI, Normocephalic Oral: Moist Mucosa Neck: Supple, No JVD Lungs: Diminished, Normal air movement, No rhonchi, No wheeze, No rales Cardiovascular: Regular rate, Regular Rhythm, Normal S1, Normal S2, No murmurs Abdomen: Soft, Non Tender, Non-Distended, No Hepato-splenomegaly Extremities: No edema, Capillary Refill Less than 3 Seconds Skin: Bilateral feet are wrapped and dressed Musculoskeletal: No Tenderness to Palpation of Joints or Extremities Neurological: No focal neurological deficits, moves all extremities, sensation is diminished due to neuropathy Psych/Mental Status: Normal Affect, Appropriate Assessment & Plan Assessment/Plan (1) Sepsis: QUALIFIERS: Sepsis type: sepsis due to unspecified organism Sepsis acute organ dysfunction status: without acute organ dysfunction QualifiedCode(s): A41.9 - Sepsis, unspecified organism (2) Acute osteomyelitis of left foot: (3) Diabetic infection of left foot: PLAN: Plan 1. Left foot osteomyelitis and diabetic foot ulcer status postdebridement on 10/29/2024/DM2 ? Continue with broad-spectrum antibiotics ? He does not have sepsis secondary to insurance and he was not septic on admission ? Will transfer out of the ICU to [facility] ? Will consult infectious disease tomorrow to be evaluated on Friday for outpatient antibiotics ? He is nonweightbearing on his left lower extremity and given the multiple ulcers he has on his right foot he is heel weightbearing on the right ? Appreciate podiatry's assistance ? Accu-Cheks ? Sliding scale insulin, hold his metformin ? Will monitor make adjustments as necessary 2. Essential HTN/HLD ? Blood pressure stable ? Continue to monitor ? Resume his home medications 3. History of DVT/PE ? Stable ? Resume Xarelto when okay with surgery 4. Gout ? Stable ? Continue with allopurinol DVT: SCDs Charges/Coding Visit Charges Inpatient E&M: 23037 Subs Hosp L2 10/30/24 1107 <Electronically signed by Delbert Mak MD> Cosigner Signature (if applicable): CC: ~ Signed [facility] Work Phone: [phone] Procedure note [facility] Medical Records Department [address] [place] [address] Operative Report 10/29/242 MR#: [id number] Acct: [id number] Name: JEFFERSON CARCAMO Rep #:[id number] : 1960 64 From: Javy Lynch DPM PCP: Dr. Mayco Fenton MD Status:ADM I N Location: ICU [place] [address] 1- 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 Post-Operative Diagnosis: Same Surgery/Procedure Performed: Debridement of ulceration down to and including bone left foot real estate subagent: No Type of Anesthesia: Local MAC RN Documented Start/Stop Times: Operation Date: 10/29/24 20:15 Case Time Anesthesia Start 10/29/24 20:25 Into Room 10/29/24 20:25 Procedure Start 10/29/24 20:46 Procedure End 10/29/24 21:17 Into Recovery 10/29/24 21:19 Anesthesia End 10/29/24 21:20 Out of Room 10/29/24 21:20 Out of Recovery 10/29/24 21:43 Procedure Start Time: 20:46 Procedure Stop Time: 21:17 Select all DRAINS/GRAFTS/IMPLANTS that apply: None Estimated Blood Loss: 10mL Specimen collected: Yes Description of specimen(s) removed: 1. Debrided wound/amputated left 5th toe and 5th metatarsal - sent to pathology 2. Bone culture left 5th toe - sent to microbiology 3. Clearance fragment left 5th metatarsal - sent to pathology 4. Clearance fragment left 5th metatarsal - sent to microbiology 5. Wound culture right foot (5th MTPJ) Description of surgery: Indications: 64 year old gentleman with multiple medical problems ulceration sub5th metatarsal phalangeal joint and to the 4th interdigital space down to bone with severe necrosis to all tissue layers including bone, there is severe edema,erythema, drainage, purulence, and maloder all consistent with severe infection left foot. There is noted to be gas gangrene to the site. We discussed the options and due to severe infection surgical debridement was recommended, patient agreed. The procedure was reviewed with him in detail, reviewed rationale of procedure, possible benefits vs risks, goals, and expectations. Advised patient the risks include but are not limited to pain, further infection, bleeding, need for further surgical, nonhealing, loss of limb, loss of life. Patient expressed understanding and agreement, and was able to repeat back. The consent form was reviewed with him and he freely signed it. All of hisquestions were answered. No guarantees were given nor implied. No warranties were given. Operative Procedure: The patient was brought back to the operating room and was placed on the operating room table in the supine position, carefully secured to the operating room table with a safety belt. The patient was already on IV antibiotic therapy. A well padded pneumatic tourniquet was applied around the patient's left ankle. The patient received MAC anesthesia per the anesthesiologyteam. The skin of the left foot 1st ray was cleansed using 70% Isopropyl alcoholand then a nerve block wascompleted to the left foot 5th ray using total of 10mL of 0.5% Bupivacaine plain. The patient's left foot was scrubbed, prepped, and draped in the usual aseptic fashion. Further attention was directed to the patient's left foot and again noted to have significant infection to the left foot as noted above. There were 2 ulcerations which measured 1.2cm x 0.2cm to the 4th interdigital space left footprobing down to bone and 0.8cm x 0.6cm sub 5th metatarsal phalangeal joint left foot probe down to bone - both had significant necrosis and infection as noted above and overlying nonviable tissue with undermining of edges. A timeout of performed and the patient was properly identified and the surgical plan was confirmed. The patient left foot was elevated for severalminutes and the left ankle pneumatic tourniquet was inflated to 250mmHg. Left foot debridement: The ulcerations of the left 5th ray were debrided in sharp excisional fashion using a 15 blade, this was debrided down to and including bone. The bone was resected with the help of a powered sagittal saw at the level of the 5th metatarsal. The entire 5th toe was necrotic, this included the soft tissue and bone of the 5th toe. A bone culture was obtained of the left 5thtoe and sent to microbiology. The ulceration was debrided of all nonviable, necrotic and infected tissue.There was extensive black, soupy, boggy soft tissue and bone of the left 5th toe and tissue around the distal 50% of the 5th metatarsal, including the distal 5th metatarsal. All of this unhealthy tissue was debrided and excised using a 15 blade and powered sagittal saw. The bone of the proximal 5thmetatarsal was noted to be white and hard and did appear to be free of infection. The site was flushed with copious amounts of normal saline solution. Using a clean rongeur a sample of bone was obtained from the residual 5th metatarsal and was sent to microbiology and pathology as clearance fragment .The debrided tissues (soft tissue and bone) was sent to pathology. The site was again flushed withcopious amounts of normal saline solution. The site was left open to drain. The remaining tissues of the foot appears healthy and viable at this time. Post debridement the ulceration measured: 5.1cm x 7cm and down to andincluding bone. A dressing was applied which consisted of betadine solution, 4x4 gauze, surgicel(patient on Xarelto), kerlix and abd pads, and rachel dressing was applied. While applying the dressing the ankle tourniquet was deflated and there was immediate return of warmth and perfusion to patient's left foot, CFT < 2 seconds to 1,2,3,4 toes. The patient tolerated the procedure well and anesthesia well with no complications. He was transported from the operating room to the recovery room with vital signs stable and in good condition. The patient will be followedas an inpatient. Instruction and orders placedfor strict nonweightbearing left foot, and to keep left foot elevated at all times. Also it was noted there was some erythema to the patient's dorsal lateral right foot coming from ulceration sub right 5th metatarsal phalangeal joint - this wasmild, a culture was obtained of that ulceration and was sent to microbiology - painted ulcerations right foot with betadine solution and applied gauze, kerlix and rachel dressing. Surgical Findings: As noted above Complications Complications: No 10/30/24 1221 Cosigner Signature (if applicable): CC: GURDEEP Lynch; Dr. Ruslan Adams DO; Dr. Mayco Fenton MD~ Signed [facility]09-13-2025 Progress note [facility] Medical Records Department [address] [place] [address] Progress Note 10/30/24 1216 MR#: [id number] Acct: [id number] Name: JEFFERSON CARCAMO Rep #:[id number] : 1960 64 From: Javy Lynch DPM PCP: Dr. Mayco Fenton MD Status:ADM I N Location: ICU CVICU20 1-1 Subjective Subjective Patient was seen today for follow up on bilateral feet. He relates he is feelingbetter, no new complaints, no f/c/n/v/sob/chest pain. Objective Data Objective Data Vital Signs: Vital Signs Temp Pulse Resp BP Pulse Ox O2 Del Method 98.2 F 83 16 131/73 H 94 Room Air 10/30/24 09:00 10/30/24 10:00 10/30/24 10:00 10/30/24 10:00 10/30/24 10:00 10/30/24 10:00 Oxygen Delivery Method Room Air Weight: 101.1 kg Body Mass Index (BMI) 31.8 Intake & Output: Intake and Output for Last 24 Hours 10/28/24 10/29/24 10/30/24 23:59 23:59 23:59 Intake Total 2640 / 2640 2244.5 / 2244.5 Output Total 75 / 75 600 / 600 Balance 2565 / 2565 1644.5 / 1644.5 Lab / Micro Data 10/30/24 05:00 10/30/24 05:00 Labs: Laboratory Results - last 24 hr 10/29/24 17:35: WBC 22.9 H 10/29/24 17:35: WBC Cancelled, Corrected WBC Cancelled, RBC 3.92 L 10/29/24 17:35: RBC Cancelled, Hgb 11.9 L 10/29/24 17:35: Hgb Cancelled, Hct 36.2 L 10/29/24 17:35: Hct Cancelled, MCV 92.3 10/29/24 17:35: MCV Cancelled, MCH 30.4 10/29/24 17:35: MCH Cancelled, MCHC 32.9 10/29/24 17:35: MCHC Cancelled, RDW Std Deviation 42.7 10/29/24 17:35: RDW Std Deviation Cancelled, RDW Coeff of Sujey 12.6 10/29/24 17:35: RDW Coeff of Sujey Cancelled, Plt Count TNP 10/29/24 17:35: Plt Count Cancelled, MPV TNP 10/29/24 17:35: MPV Cancelled, Immature Gran % (Auto) 0.900 10/29/24 17:35: Immature Gran % (Auto) Cancelled, Neut % (Auto) 84.4 H 10/29/24 17:35: Neut % (Auto) Cancelled, Lymph % (Auto) 4.1 L 10/29/24 17:35: Lymph % (Auto) Cancelled, [place] % (Auto) 7.8 10/29/24 17:35: [place] % (Auto) Cancelled, Eos % (Auto) 2.6 10/29/24 17:35: Eos % (Auto) Cancelled, Baso % (Auto) 0.2 10/29/24 17:35: Baso % (Auto) Cancelled, Neut # (Auto) Cancelled, Immature Gran # (Auto) Cancelled,Absolute Neuts (auto) 19.4 H 10/29/24 17:35: Absolute Neuts (auto) Cancelled, Absolute Lymphs (auto) 0.93 10/29/24 17:35: Absolute Lymphs (auto) Cancelled, Absolute Monos (auto) Cancelled, Total Counted Cancelled, Neutrophils % (Manual) Cancelled, Band Neutrophils % Cancelled, Lymphocytes % (Manual) Cancelled, Monocytes % (Manual) Cancelled, Eosinophils % (Manual) Cancelled, Basophils % (Manual) Cancelled, Metamyelocytes % Cancelled, Myelocytes % Cancelled, Promyelocytes % Cancelled, Blast Cells % Cancelled, Plasma Cell % (Manual) Cancelled, Other Cells % Cancelled, Nucleated RBC % 0 10/29/24 17:35: Nucleated RBC % Cancelled, Lymphocytes # Cancelled, Basophils # Cancelled, Nucleated RBCs/100 WBC Cancelled, Differential Comment SCANNED 10/29/24 17:35: Differential Comment Cancelled, Diff Path Review Cancelled, Hypersegmented Neuts Cancelled, Atypical Lymphocytes Cancelled, Reactive Lymphocytes Cancelled, Smudge Cells Cancelled, Eosinophilia # Cancelled, Toxic Granulation Cancelled, Toxic Vacuolation Cancelled, Dohle Bodies Cancelled, AuerRods Cancelled, Platelet Estimate MKD INC 10/29/24 17:35: Platelet Estimate Cancelled, Plt Morphology Comment Cancelled, RBC Morphology Cancelled 10/29/24 17:35: RBC Morphology Cancelled, Polychromasia Cancelled, HypochromasiaCancelled, Basophilic Stippling Cancelled, Anisocytosis Cancelled, Microcytosis Cancelled, Macrocytosis Cancelled, Spherocytes Cancelled, Sickle Cells Cancelled, Target Cells Cancelled, Tear Drop Cells Cancelled, Ovalocytes Cancelled, Stomatocytes Cancelled, Alexander-[place] Bodies Cancelled, [place]ued[place] Cells Cancelled, Bite Cells Cancelled, Crenated Cell Cancelled, Acanthocytes (Spur) Cancelled, Rouleaux Cancelled, Schistocytes Cancelled, ESR 84 H, PT 19.3 H, INR 1.6, APTT 21.5 L, Sodium 130 L 10/29/24 17:35: Sodium [...] Alkaline Phosphatase Cancelled, C-React Prot Ext Range 348.00 H 10/29/24 17:35: C-React Prot Ext Range Cancelled, Total Protein 7.2 10/29/24 17:35: Total Protein Cancelled, Albumin 3.4 10/29/24 17:35: Albumin Cancelled, Globulin 3.9 10/29/24 17:35: Globulin Cancelled, Albumin/Globulin Ratio 0.9 10/29/24 17:35: Albumin/Globulin Ratio Cancelled, TSH 0.797 10/29/24 18:20: Urine Color Cancelled 10/29/24 18:20: Urine Color Yellow, Urine Clarity Cancelled 10/29/24 18:20: Urine Clarity Sl. Cloudy, Urine pH Cancelled 10/29/24 18:20: Urine pH 6.0, Ur Specific [place] Cancelled 10/29/24 18:20: Ur Specific [place] 1.015, U Specif Grav (Refrac) Cancelled, Urine Protein Cancelled 10/29/24 18:20: Urine Protein 30 H, Urine Glucose (UA) Cancelled 10/29/24 18:20: Urine Glucose (UA) 100 H, Urine Ketones Cancelled 10/29/24 18:20: Urine Ketones Negative, Urine Occult Blood Cancelled 10/29/24 18:20: Urine Occult Blood 10 H, Urine Nitrite Cancelled 10/29/24 18:20: Urine Nitrite Negative, Urine Bilirubin Cancelled 10/29/24 18:20: Urine Bilirubin Negative, Urine Urobilinogen Cancelled 10/29/24 18:20: Urine Urobilinogen Normal, Ur Leukocyte Esterase Cancelled 10/29/24 18:20: Ur Leukocyte Esterase Negative, Urine RBC Cancelled 10/29/24 18:20: Urine RBC 0 SEEN, Urine WBC Cancelled 10/29/24 18:20: Urine WBC 0-5 SEEN, Ur Squamous Epith Cells Cancelled 10/29/24 18:20: Ur Squamous Epith Cells 0-5 SEEN, Ur Transition Epith Cell Cancelled, Ur Renal Epithelial Cell Cancelled, Calcium Oxalate Crystal Cancelled, Uric Acid Crystals Cancelled, Triple Phos Crystals Cancelled, Other Crystals Cancelled, Amorphous Sediment Cancelled, Urine Bacteria Cancelled 10/29/24 18:20: Urine Bacteria RARE, Hyaline Casts Cancelled 10/29/24 18:20: Hyaline Casts 0-5 SEEN, Fine Granular Casts Cancelled, Coarse Granular Casts Cancelled, Waxy Casts Cancelled, RBC Casts Cancelled, WBC Casts Cancelled, Urine Mucus Cancelled 10/29/24 18:20: Urine Mucus 0 SEEN, Urine Trichomonas Cancelled, Urine Yeast Cancelled 10/29/24 22:16: MRSA (PCR) Negative 10/29/24 22:21: Hemoglobin A1c 6.7 H, Lactic Acid 1.1 10/29/24 23:54: POC Glucose 118 H 10/30/24 04:57: POC Glucose 84 10/30/24 05:00: WBC 13.5 H, RBC 3.08 L, Hgb 9.5 L, Hct 27.8 L, MCV 90.3, MCH 30.8, MCHC 34.2, RDW Std Deviation 42.0, RDW Coeff of Sujey 12.8, Plt Count 199, MPV 9.3, Immature Gran % (Auto) 0.600, Neut% (Auto) 80.7 H, Lymph % (Auto) 8.9 L, [place] % (Auto) 9.6, Eos % (Auto) 0.1, Baso % (Auto) 0.1, Absolute Neuts (auto)10.9 H, Absolute Lymphs (auto) 1.20, Nucleated RBC % 0, Sodium 135, Potassium 3.6, Chloride 105, Carbon Dioxide 21.4, Anion Gap 9, BUN 15, Creatinine 1.07, Estim Creat Clear Calc 85.29, Est GFR (MDRD) Non-Af 78, BUN/Creatinine Ratio 14.1, Glucose 85, Calcium 8.0, Total Bilirubin 0.96, AST 24, ALT 36, Alkaline Phosphatase 125, Total Protein 5.7 L, Albumin 2.6 L, Globulin 3.0, Albumin/Globulin Ratio 0.9 10/30/24 11:08: POC Glucose 99 Radiography Diagnostic Testing: Radiology Impression Foot X-Ray 10/29/24 18:35 IMPRESSION: No acute fractures or dislocations. Soft tissue edema and emphysema at the 5th toe. If there is additional concern for osteomyelitis, recommend further evaluation with MRI. Reading Location: [facility] Foot X-Ray 10/29/24 23:45 IMPRESSION: As above. Reading Location: [id number] Physical Exam Const alert, oriented x3 and no apparent distress Constitutional Narrative: s/p debridement down to and including bone left foot - tissues are healthy and viable, no fluctuance, no purulence, no necrosis, no crepitus, no maloder, less erythema and less edema to foot, bleeding controlled, no evidence of acute ischemia. Right foot with chronic ulceration to distal tip of 2ndtoe and sub 5th MTPJ - there is less edema and erythema today, ulcers down to subcutaneous tissue and do look better today with more viable tissue, no purulence, no visible abscess, no crepitus, no fluctuance, no maloder. No evidence of acute ischemia right foot. General Appearance: comfortable Assessment & Plan Assessment/Plan (1) Gangrene, not elsewhere classified: (2) Acute osteomyelitis of left foot: (3) Cellulitis of left lower limb: (4) Diabetes mellitus with diabetic polyneuropathy: QUALIFIERS: Diabetes mellitus type: type 2 Diabetes mellitus chcf insulin use: without locomotive crane operator helper use Qualified Code(s): E11.42 - Type 2 diabetes mellitus with diabetic polyneuropathy (5) Type 2 diabetes mellitus with foot ulcer: PLAN: Plan s/p left foot debridement on 10/29/2024 - clinically much improved today, right foot improved as well Cultures left foot and ulcer right foot has been obtained and final results pending Wound care left foot: normal saline wet to dry gauze, with overlying gauze, kerlix, abd pads and rachel dressing daily - plan for wound vac likely Friday Wound care right foot: betadine solution, gauze, kerlix and rachel dressing changesdaily No weightbearing left foot, heel weightbearing right foot Keep left foot elevated LEAS have been ordered and pending - no evidence of acute ischemia at this time Podiatry will continue to follow 10/30/24 1221 Javy Lynch DPM Cosigner Signature (if applicable): CC: ~ Signed [facility]09-13-2025 Progress note [facility] Medical Records Department [address] [place] [address] Progress Note - Hospitalist 10/30/24 1033 MR#: [id number] Acct: [id number] Name: JEFFERSON CARCAMO Rep #:[id number] : 1960 64 From: Delbert doan MD PCP: Dr. Mayco Fenton MD Status:ADM I N Location: ICU CVICU20 1-1 Subjective Subjective Doing well, had surgery last evening on his left foot Objective Data Objective Data Vital Signs: Vital Signs Temp Pulse Resp BP Pulse Ox O2 Del Method 98.2 F 83 16 131/73 H 94 Room Air 10/30/24 09:00 10/30/24 10:00 10/30/24 10:00 10/30/24 10:00 10/30/24 10:00 10/30/24 10:00 Oxygen Delivery Method Room Air Weight: 222 lb 14.197 oz Body Mass Index (BMI) 31.8 Intake & Output: Intake and Output for Last 24 Hours 10/29/24 10/30/24 10/31/24 03:59 03:59 03:59 Intake Total 4199.5 / 4199.5 150 / 150 Output Total 75 / 75 600 / 600 Balance 4124.5 / 4124.5 -450 / -450 Lab / Micro Data 10/30/24 05:00 10/30/24 05:00 Labs: Laboratory Results - last 24 hr 10/29/24 17:35: WBC 22.9 H 10/29/24 17:35: WBC Cancelled, Corrected WBC Cancelled, RBC 3.92 L 10/29/24 17:35: RBC Cancelled, Hgb 11.9 L 10/29/24 17:35: Hgb Cancelled, Hct 36.2 L 10/29/24 17:35: Hct Cancelled, MCV 92.3 10/29/24 17:35: MCV Cancelled, MCH 30.4 10/29/24 17:35: MCH Cancelled, MCHC 32.9 10/29/24 17:35: MCHC Cancelled, RDW Std Deviation 42.7 10/29/24 17:35: RDW Std Deviation Cancelled, RDW Coeff of Sujey 12.6 10/29/24 17:35: RDW Coeff of Sujey Cancelled, Plt Count TNP 10/29/24 17:35: Plt Count Cancelled, MPV TNP 10/29/24 17:35: MPV Cancelled, Immature Gran % (Auto) 0.900 10/29/24 17:35: Immature Gran % (Auto) Cancelled, Neut % (Auto) 84.4 H 10/29/24 17:35: Neut % (Auto) Cancelled, Lymph % (Auto) 4.1 L 10/29/24 17:35: Lymph % (Auto) Cancelled, [place] % (Auto) 7.8 10/29/24 17:35: [place] % (Auto) Cancelled, Eos % (Auto) 2.6 10/29/24 17:35: Eos % (Auto) Cancelled, Baso % (Auto) 0.2 10/29/24 17:35: Baso % (Auto) Cancelled, Neut # (Auto) Cancelled, Immature Gran # (Auto) Cancelled,Absolute Neuts (auto) 19.4 H 10/29/24 17:35: Absolute Neuts (auto) Cancelled, Absolute Lymphs (auto) 0.93 10/29/24 17:35: Absolute Lymphs (auto) Cancelled, Absolute Monos (auto) Cancelled, Total Counted Cancelled, Neutrophils % (Manual) Cancelled, Band Neutrophils % Cancelled, Lymphocytes % (Manual) Cancelled, Monocytes % (Manual) Cancelled, Eosinophils % (Manual) Cancelled, Basophils % (Manual) Cancelled, Metamyelocytes % Cancelled, Myelocytes % Cancelled, Promyelocytes % Cancelled, Blast Cells % Cancelled, Plasma Cell % (Manual) Cancelled, Other Cells % Cancelled, Nucleated RBC % 0 10/29/24 17:35: Nucleated RBC % Cancelled, Lymphocytes # Cancelled, Basophils # Cancelled, Nucleated RBCs/100 WBC Cancelled, Differential Comment SCANNED 10/29/24 17:35: Differential Comment Cancelled, Diff Path Review Cancelled, Hypersegmented Neuts Cancelled, Atypical Lymphocytes Cancelled, Reactive Lymphocytes Cancelled, Smudge Cells Cancelled, Eosinophilia # Cancelled, Toxic Granulation Cancelled, Toxic Vacuolation Cancelled, Dohle Bodies Cancelled, AuerRods Cancelled, Platelet Estimate MKD INC 10/29/24 17:35: Platelet Estimate Cancelled, Plt Morphology Comment Cancelled, RBC Morphology Cancelled 10/29/24 17:35: RBC Morphology Cancelled, Polychromasia Cancelled, HypochromasiaCancelled, Basophilic Stippling Cancelled, Anisocytosis Cancelled, Microcytosis Cancelled, Macrocytosis Cancelled, Spherocytes Cancelled, Sickle Cells Cancelled, Target Cells Cancelled, Tear Drop Cells Cancelled, Ovalocytes Cancelled, Stomatocytes Cancelled, [place] Bodies Cancelled, Lueders Cells Cancelled, Bite Cells Cancelled, Crenated Cell Cancelled, Acanthocytes (Spur) Cancelled, Rouleaux Cancelled, Schistocytes Cancelled, ESR 84 H, PT 19.3 H, INR 1.6, APTT 21.5 L, Sodium 130 L 10/29/24 17:35: Sodium [...] Alkaline Phosphatase Cancelled, C-React Prot Ext Range 348.00 H 10/29/24 17:35: C-React Prot Ext Range Cancelled, Total Protein 7.2 10/29/24 17:35: Total Protein Cancelled, Albumin 3.4 10/29/24 17:35: Albumin Cancelled, Globulin 3.9 10/29/24 17:35: Globulin Cancelled, Albumin/Globulin Ratio 0.9 10/29/24 17:35: Albumin/Globulin Ratio Cancelled, TSH 0.797 10/29/24 18:20: Urine Color Cancelled 10/29/24 18:20: Urine Color Yellow, Urine Clarity Cancelled 10/29/24 18:20: Urine Clarity Sl. Cloudy, Urine pH Cancelled 10/29/24 18:20: Urine pH 6.0, Ur Specific [place] Cancelled 10/29/24 18:20: Ur Specific [place] 1.015, U Specif Grav (Refrac) Cancelled, Urine Protein Cancelled 10/29/24 18:20: Urine Protein 30 H, Urine Glucose (UA) Cancelled 10/29/24 18:20: Urine Glucose (UA) 100 H, Urine Ketones Cancelled 10/29/24 18:20: Urine Ketones Negative, Urine Occult Blood Cancelled 10/29/24 18:20: Urine Occult Blood 10 H, Urine Nitrite Cancelled 10/29/24 18:20: Urine Nitrite Negative, Urine Bilirubin Cancelled 10/29/24 18:20: Urine Bilirubin Negative, Urine Urobilinogen Cancelled 10/29/24 18:20: Urine Urobilinogen Normal, Ur Leukocyte Esterase Cancelled 10/29/24 18:20: Ur Leukocyte Esterase Negative, Urine RBC Cancelled 10/29/24 18:20: Urine RBC 0 SEEN, Urine WBC Cancelled 10/29/24 18:20: Urine WBC 0-5 SEEN, Ur Squamous Epith Cells Cancelled 10/29/24 18:20: Ur Squamous Epith Cells 0-5 SEEN, Ur Transition Epith Cell Cancelled, Ur Renal Epithelial Cell Cancelled, Calcium Oxalate Crystal Cancelled, Uric Acid Crystals Cancelled, Triple Phos Crystals Cancelled, Other Crystals Cancelled, Amorphous Sediment Cancelled, Urine Bacteria Cancelled 10/29/24 18:20: Urine Bacteria RARE, Hyaline Casts Cancelled 10/29/24 18:20: Hyaline Casts 0-5 SEEN, Fine Granular Casts Cancelled, Coarse Granular Casts Cancelled, Waxy Casts Cancelled, RBC Casts Cancelled, WBC Casts Cancelled, Urine Mucus Cancelled 10/29/24 18:20: Urine Mucus 0 SEEN, Urine Trichomonas Cancelled, Urine Yeast Cancelled 10/29/24 22:16: MRSA (PCR) Negative 10/29/24 22:21: Hemoglobin A1c 6.7 H, Lactic Acid 1.1 10/29/24 23:54: POC Glucose 118 H 10/30/24 04:57: POC Glucose 84 10/30/24 05:00: WBC 13.5 H, RBC 3.08 L, Hgb 9.5 L, Hct 27.8 L, MCV 90.3, MCH 30.8, MCHC 34.2, RDW Std Deviation 42.0, RDW Coeff of Sujey 12.8, Plt Count 199, MPV 9.3, Immature Gran % (Auto) 0.600, Neut% (Auto) 80.7 H, Lymph % (Auto) 8.9 L, [place] % (Auto) 9.6, Eos % (Auto) 0.1, Baso % (Auto) 0.1, Absolute Neuts (auto)10.9 H, Absolute Lymphs (auto) 1.20, Nucleated RBC % 0, Sodium 135, Potassium 3.6, Chloride 105, Carbon Dioxide 21.4, Anion Gap 9, BUN 15, Creatinine 1.07, Estim Creat Clear Calc 85.29, Est GFR (MDRD) Non-Af 78, BUN/Creatinine Ratio 14.1, Glucose 85, Calcium 8.0, Total Bilirubin 0.96, AST 24, ALT 36, Alkaline Phosphatase 125, Total Protein 5.7 L, Albumin 2.6 L, Globulin 3.0, Albumin/Globulin Ratio 0.9 Radiography Diagnostic Testing: Radiology Impression Foot X-Ray 10/29/24 18:35 IMPRESSION: No acute fractures or dislocations. Soft tissue edema and emphysema at the 5th toe. If there is additional concern for osteomyelitis, recommend further evaluation with MRI. Reading [facility] Foot [facility]-Ray 10/29/24 23:45 IMPRESSION: As above. Reading Location: [id number] Physical Exam Narrative General: Alert, Oriented x3, Cooperative, No apparent distress HEENT: Atraumatic, PERRLA, EOMI, Normocephalic Oral: Moist Mucosa Neck: Supple, No JVD Lungs: Diminished, Normal air movement, No rhonchi, No wheeze, No rales Cardiovascular: Regular rate, Regular Rhythm, Normal S1, Normal S2, No murmurs Abdomen: Soft, Non Tender, Non-Distended, No Hepato-splenomegaly Extremities: No edema, Capillary Refill Less than 3 Seconds Skin: Bilateral feet are wrapped and dressed Musculoskeletal: No Tenderness to Palpation of Joints or Extremities Neurological: No focal neurological deficits, moves all extremities, sensation is diminished due toneuropathy Psych/Mental Status: Normal Affect, Appropriate Assessment & Plan Assessment/Plan (1) Sepsis: QUALIFIERS: Sepsis type: sepsis due to unspecified organism Sepsis acute organ dysfunction status: without acute organ dysfunction QualifiedCode(s): A41.9 - Sepsis, unspecified organism (2) Acute osteomyelitis of left foot: (3) Diabetic infection of left foot: PLAN: Plan 1. Left foot osteomyelitis and diabetic foot ulcer status postdebridement on 10/29/2024/DM2 ? Continue with broad-spectrum antibiotics ? He does not have sepsis secondary to insurance and he was not septic on admission ? Will transfer out of the ICU to [facility] ? Will consult infectious disease tomorrow to be evaluated on Friday for outpatient antibiotics ? He is nonweightbearing on his left lower extremity and given the multiple ulcers he has on his right foot he is heel weightbearing on the right ? Appreciate podiatry's assistance ? Accu-Cheks ? Sliding scale insulin, hold his metformin ? Will monitor make adjustments as necessary 2. Essential HTN/HLD ? Blood pressure stable ? Continue to monitor ? Resume his home medications 3. History of DVT/PE ? Stable ? Resume Xarelto when okay with surgery 4. Gout ? Stable ? Continue with allopurinol DVT: SCDs Charges/Coding Visit Charges Inpatient E&M: 50239 Subs Hosp L2 10/30/24 1107 Cosigner Signature (if applicable): CC: ~ Signed [facility]09-13-2025 History and physical note Author Ruslan Morales [facility] Note Date/Time October 30, 2024 6:52am [facility] Medical Records Department [address] [place] [address] H&P Exam - Hospitalist 10/29/24 1909 MR#: [id number] Acct: [id number] Name: JEFFERSON CARCAMO Rep #:[id number] : 1960 64 From: Ruslan Enrique DO PCP: Dr. Mayco Fenton MD Status:ADM I N Location: ICU CVICU20 1-1 HPI - General General Date of Admission: 10/29/24 Date of Service: 10/29/24 Chief Complaint: Worsening Left Foot Wound with Fever. HPI Narrative JEFFERSON CARCAMO, is a 64 M with a past medical history of essential hypertension; on lisinopril and metoprolol, hyperlipidemia; on atorvastatin, obesity (class I); with BMI of 30.6 this admission, DM-2; uncontrolled with Hyperglycemia on metformin and glimepiride, history of DFU; followed by a nonlocal master black belt, history of multiple DVT's/PE's; on rivaroxaban, gout; on allopurinol and OA; s/pLeft THR who presents to [facility] ER complaining of worsening Left foot wound with fever. Mr. Carcamo reports his symptoms began approximately three days prior to admission with increasing drainage from his Left foot wound. Then just prior toadmission he spiked a temperature up to 107.7 degrees Fahrenheit with the 5th toe of his Left foot also turning purple so he decided to come in for further evaluation and treatment. He admits to intermittent nausea but he denies associated vomiting, constipation, diarrhea, abdominal pain, chest pain, palpitations, heart racing, dysuria, hematuria or headache. In the ER he was noted to have Leukocytosis of 22.9K with Fever of 100.2 degrees Fahrenheit in addition to persistent Sinus Tachycardia concerning for Sepsis due to worsening Left DFU complicated by Hyperglycemia of 251 mg/dL consistent with Uncontrolled DM-2 with master black belt on-call to take patient for emergent surgery. He was then admitted to the ICU for ongoing care for a stay that is expected to be greater than 2 midnights. 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 Eyes: Patient denies changes in vision or discharge from eyes. ENT: Patient denies runny nose, sore throat or ear pain. Resp: Patient denies SOB or cough. CV: Patient denies chest pain, palpitations or heart racing. GI: Patient admits to nausea but he denies vomiting, diarrhea, constipation or abdominal pain. : Patient denies dysuria or hematuria. MSK: Patient denies arthralgias or myalgias. Skin: Patient admits to necrotic, purplish Left 5th toe with drainage of purulent material. Psych: Patient denies symptoms of uncontrolled depression or anxiety. Neuro: Patient denies headache, paresthesias or focal neurologic deficits. Allergy: Patient denies lip swelling, tongue swelling or urticaria. Hematology: Patient admits to easy bleeding or easy bruisability. Endocrinology: Patient admits to polyuria but he denies polyphagia or heat/cold intolerance. 14 point ROS otherwise negative except for positives noted above. Vital Signs Vital Signs Vital Signs: 10/29/24 16:40 10/29/24 16:44 10/29/24 [...] Ox 100 Oxygen Delivery Method Room Air Weight Weight: 213 lb Body Mass Index (BMI) 30.5 Physical Exam Const alert, oriented x3 and no apparent distress Constitutional Narrative: Obese patient who is acutely ill in appearance. General Appearance: cooperative HEENT normocephalic, head/scalp atraumatic and hearing grossly normal bilaterally HEENT Narrative: Mucous membranes dry. Eyes PERRL, EOMs intact bilaterally and conjunctivae normal Neck no lymphadenopathy, supple and no JVD Resp normal respiratory effort, no retractions, no use of accessory muscles and clearto auscultation bilaterally Cardio regular rate and regular rhythm Cardio Narrative: Persistent tachycardia @ ~107 bpm. GI normal to inspection, nondistended, normoactive bowel sounds, soft to palpation,non-tender and non-distended Extremity Extremity Narrative: Patient has necrotic Left 5th toe with ~0.5 cm wound on the plantar surface of the foot near the junction of the 5th MTP joint with marked purulent material expressed from the toe. Skin Skin Narrative: Patient has necrotic Left 5th toe with ~0.5 cm wound on the plantar surface of the foot near the junction of the 5th MTP joint with marked purulent material expressed from the toe. Neuro oriented x3, CN's II-XII intact bilaterally, moves all extremities and no focal motor deficits Sensorium / Orientation: awake, alert, oriented to person, oriented to place andoriented to time Speech: speech normal Psych affect normal Results Medical Records Data Attestation: I reviewed the patient's medical records Lab / Micro Data Attestation: I reviewed the patient's lab results. 10/30/24 05:00 10/30/24 05:00 Labs: Laboratory Results - last 24 hr 10/29/24 17:35: WBC 22.9 H, RBC 3.92 L, Hgb 11.9 L, Hct 36.2 L, MCV 92.3, MCH 30.4, MCHC 32.9, RDW Std Deviation 42.7, RDW Coeff of Sujey 12.6, Plt Count 245, MPV 9.9, Immature Gran % (Auto) 0.900, Neut % (Auto) 84.4 H, Lymph % (Auto) 4.1 L, [place] % (Auto) 7.8, Eos % (Auto) 2.6, Baso % (Auto) 0.2, Absolute Neuts (auto)19.4 H, Absolute Lymphs (auto) 0.93, Nucleated RBC % 0, PT 19.3 H, INR 1.6, APTT21.5 L, Sodium 130 L, Potassium 4.3, Chloride 95 L, Carbon Dioxide 22.9, Anion Gap 12, BUN 21 H, Creatinine 1.31 H, Estim Creat Clear Calc 68.18, Est GFR (MDRD) Non-Af 62, BUN/Creatinine Ratio 15.8, Glucose 251 H, Lactic Acid 2.0, Calcium 9.2, Total Bilirubin 1.09, AST 41 H, ALT 57 H, Alkaline Phosphatase 146 H, Total Protein 7.2, Albumin 3.4, Globulin 3.9, Albumin/Globulin Ratio 0.9 10/29/24 18:20: Urine Color Yellow, Urine Clarity Sl. Cloudy, Urine pH 6.0, Ur Specific [place] 1.015, Urine Protein 30 H, Urine Glucose (UA) 100 H, Urine Ketones Negative, Urine Occult Blood 10 H, Urine Nitrite Negative, Urine Bilirubin Negative, Urine Urobilinogen Normal, Ur Leukocyte Esterase Negative Imaging [facility] Imaging Services [address] [place], [place] [address] Foot min 3 Views MR#: [id number] Acct: [id number] Name: JEFFERSON CARCAMO Rep #: [id number] : 1960 M 64 From: Marcin Escoto MD PCP: Dr. Mayco Fenton MD Status: REG ER Study: Foot min 3 Views Date of Exam: 10/29/24 Exam# [id number] Ordering Dr: Sriram Nunez MD PROCEDURE: FOOT MIN 3 VIEWS [...] recommend further evaluation with MRI. Reading Location: [facility] CC: Dr. Mayco Fenton MD; Dr. Sriram Nunez MD ~ Sifter Operator: Signed ----- [facility] Imaging Services [address] [place] [address] Foot min 3 Views MR#: [id number] Acct: [id number] Name: JEFFERSON CARCAMO Rep #: [id number] : 1960 M 64 From: Gagandeep Hugo MD PCP: Dr. Mayco Fenton MD Status: ADM IN Study: Foot min 3 Views Date of Exam: 10/29/24 Exam# [id number] Ordering Dr: Javy Lynch DPM PROCEDURE: FOOT MIN 3 VIEWS 10/29/2024 REASON FOR EXAM: POST OP TECHNIQUE: Procedure Code: RADFO Modality: DX Procedure: FOOT MIN 3 VIEWS Laterality: COMPARISON: Earlier on the same day. FINDINGS: Since the previous study, there has been amputation of the 5th toe through the mid shaft of the 5th metatarsal performed. Soft tissue swelling, thickening, and emphysematous changes are noted at the amputation stump.. No osseous erosive or destructive changes. Soft tissue swelling about the foot likely represents generalized cellulitis. Prominent posterior and plantar calcaneal enthesophytes are unchanged from the previous study. RAD/Foot min 3 Views IMPRESSION: As above. Reading Location: [facility] CC: GURDEEP Lynch; Dr. Mayco Fenton MD ~ Sifter Operator: Signed Assessment & Plan Assessment/Plan (1) Sepsis: QUALIFIERS: Sepsis acute organ dysfunction status: without acute organ dysfunction Sepsis type: sepsis due to unspecified organism Qualified Code(s): A41.9 - Sepsis, unspecified organism (2) Acute osteomyelitis of left foot: (3) Diabetic infection of left foot: (4) Diabetes mellitus with diabetic polyneuropathy: QUALIFIERS: Diabetes mellitus fci insulin use: without fci use Diabetes mellitus type: type 2 Qualified Code(s): E11.42 - Type 2 diabetes mellitus with diabetic polyneuropathy (5) History of venous thromboembolism: (6) Chronic anticoagulation: (7) Obesity (BMI 30.0-34.9): PLAN: Plan 1. Leukocytosis of 22.9K with Fever of 100.2 degrees Fahrenheit in addition to persistent Sinus Tachycardia concerning for Sepsis - Admit to ICU after medically-necessary emergency surgery that does not require preoperative evaluation. Continue IV piperacillin-tazobactam and IV vancomycin begun in ER and await culture & sensitivity data. Give ondansetron IV prn for nausea and vomiting. Give acetaminophen prn for [id number] (level 1-5/10) pain or fever. Give morphine IV prn for severe (level 6-10/10) pain. Finally, podiatrywas to take patient for emergent surgery with help appreciated. 2. Worsening Left DFU complicated by Hyperglycemia of 251 mg/dL consistent withUncontrolled DM-2 with master black belt on-call to take patient for emergent surgery causing #1 - Keep NPO for now. FSBS q. 6 hours plus lowest-intensity SSI. Check HgbA1c to objectively evaluate quality of diabetic control. 3. History of multiple DVT's/PE's; on rivaroxaban adding to the medical complexity of #1 & #2 - Hold rivaroxaban until patient cleared to restart by podiatry. 4. Obesity (class I); with BMI of 30.6 this admission adding to the burden of disease outlined from #1 - #3 - Weight loss will be recommended. Check TSH. This complicates his case and may hamper recovery. 5. Essential hypertension; on lisinopril and metoprolol - Hold scheduled antihypertensives in light of #1. 6. Hyperlipidemia; on atorvastatin - Resume statin. 7. DM-2; uncontrolled with Hyperglycemia on metformin and glimepiride with history of DFU followed by a nonlocal master black belt - Hold metformin and glimepiride while inpatient. Keep NPO for surgery. Check FSBS q. 6 hours plus give lowest intensity SSI. 8. History of gout; on allopurinol - Stable with no evidence of flare. Continue allopurinol as previous. 9. OA; s/p Left THR - Stable. Give acetaminophen prn as outlined in #1. 10. DVT prophylaxis - Start LMWH after surgery if okay with master black belt. Place RLE SCD. Total time: Approximately (but not less than) 75 minutes. Sepsis Attestation Sepsis Alert: Yes Sepsis Attestation: Sepsis Ruled Out Date exam was performed: 10/30/24 Time exam was performed: 19:15 Possible Source of Sepsis: Skin/soft tissue Supportive Findings: In the ER he was noted to have Leukocytosis of 22.9K with Fever of 100.2 degreesFahrenheit in addition to persistent Sinus Tachycardia concerning for Sepsis dueto worsening Left DFU complicated by Hyperglycemia of 251 mg/dL consistent with Uncontrolled DM-2 with master black belt on-call to take patient for emergent surgery. Fluid Resuscitation Fluid resuscitation indicated?: Yes Fluid Resuscitation ordered: 30 ml/kg fluid bolus ordered Amount of fluid ordered: 2 Sepsis Note Date exam was performed: 10/29/24 Time exam was performed: 23:15 Sepsis Attestation: Sepsis re-evaluation was performed Response to fluids: Fluid responsive hypotension Charges/Coding Visit Charges Inpatient E&M: 61289 Init Hosp L3 10/30/24 0652 <Electronically signed by Ruslan Adams DO> Cosigner Signature (if applicable): CC: Dr. Ruslan Adams DO; Dr. Mayco Fenton MD~ Signed [facility] Work Phone: [phone] History and physical note [facility] Medical Records Department [address] [place] [id number] H&P Exam - Hospitalist 10/29/24 1909 MR#: [id number] Acct: [id number] Name: JEFFERSON CARCAMO Rep #:[id number] : 1960 64 From: Ruslan Enrique DO PCP: Dr. Mayco Fenton MD Status:ADM I N Location: ICU CVICU 1-1 HPI - General General Date of Admission: 10/29/24 Date of Service: 10/29/24 Chief Complaint: Worsening Left Foot Wound with Fever. HPI Narrative JEFFERSON CARCAMO, is a 64 M with a past medical history of essential hypertension; on lisinopril and metoprolol, hyperlipidemia; on atorvastatin, obesity (class I); with BMI of 30.6 this admission, DM-2;uncontrolled with Hyperglycemia on metformin and glimepiride, history of DFU; followed by a nonlocal master black belt, history of multiple DVT's/PE's; on rivaroxaban, gout; on allopurinol and OA; s/pLeft THR who presents to [facility] ER complaining of worsening Left foot wound with fever. Mr. Carlos Alberto reports his symptoms began approximately three days prior to admission with increasing drainage from his Left foot wound. Then just prior toadmission he spiked a temperature up to 107.7 degrees Fahrenheit with the 5th toe of his Left foot also turning purple so he decided to come in for further evaluation and treatment. He admits to intermittent nausea but he denies associated vomiting, constipation, diarrhea, abdominal pain, chest pain, palpitations, heart racing, dysuria, hematuriaor headache. In the ER he was noted to have Leukocytosis of 22.9K with Fever of 100.2 degrees Fahrenheit in addition to persistent Sinus Tachycardia concerning for Sepsis due to worsening Left DFU complicated by Hyperglycemia of 251 mg/dL consistent with Uncontrolled DM-2 with master black belt on-call totake patient for emergent surgery. He was then admitted to the ICU for ongoing care for a stay thatis expected to be greater than 2 midnights. 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 Eyes: Patient denies changes in vision or discharge from eyes. ENT: Patient denies runny nose, sore throat or ear pain. Resp: Patient denies SOB or cough. CV: Patient denies chest pain, palpitations or heart racing. GI: Patient admits to nausea but he denies vomiting, diarrhea, constipation or abdominal pain. : Patient denies dysuria or hematuria. MSK: Patient denies arthralgias or myalgias. Skin: Patient admits to necrotic, purplish Left 5th toe with drainage of purulent material. Psych: Patient denies symptoms of uncontrolled depression or anxiety. Neuro: Patient denies headache, paresthesias or focal neurologic deficits. Allergy: Patient denies lip swelling, tongue swelling or urticaria. Hematology: Patient admits to easy bleeding or easy bruisability. Endocrinology: Patient admits to polyuria but he denies polyphagia or heat/cold intolerance. 14 point ROS otherwise negative except for positives noted above. Vital Signs Vital Signs Vital Signs: 10/29/24 16:40 10/29/24 16:44 10/29/24 [...] Ox 100 Oxygen Delivery Method Room Air Weight Weight: 213 lb Body Mass Index (BMI) 30.5 Physical Exam Const alert, oriented x3 and no apparent distress Constitutional Narrative: Obese patient who is acutely ill in appearance. General Appearance: cooperative HEENT normocephalic, head/scalp atraumatic and hearing grossly normal bilaterally HEENT Narrative: Mucous membranes dry. Eyes PERRL, EOMs intact bilaterally and conjunctivae normal Neck no lymphadenopathy, supple and no JVD Resp normal respiratory effort, no retractions, no use of accessory muscles and clearto auscultation bilaterally Cardio regular rate and regular rhythm Cardio Narrative: Persistent tachycardia @ ~107 bpm. GI normal to inspection, nondistended, normoactive bowel sounds, soft to palpation,non-tender and non-distended Extremity Extremity Narrative: Patient has necrotic Left 5th toe with ~0.5 cm wound on the plantar surface of the foot near the junction of the 5th MTP joint with marked purulent material expressed from the toe. Skin Skin Narrative: Patient has necrotic Left 5th toe with ~0.5 cm wound on the plantar surface of the foot near the junction of the 5th MTP joint with marked purulent material expressed from the toe. Neuro oriented x3, CN's II-XII intact bilaterally, moves all extremities and no focal motor deficits Sensorium / Orientation: awake, alert, oriented to person, oriented to place andoriented to time Speech: speech normal Psych affect normal Results Medical Records Data Attestation: I reviewed the patient's medical records Lab / Micro Data Attestation: I reviewed the patient's lab results. 10/30/24 05:00 10/30/24 05:00 Labs: Laboratory Results - last 24 hr 10/29/24 17:35: WBC 22.9 H, RBC 3.92 L, Hgb 11.9 L, Hct 36.2 L, MCV 92.3, MCH 30.4, MCHC 32.9, RDW Std Deviation 42.7, RDW Coeff of Sujey 12.6, Plt Count 245, MPV 9.9, Immature Gran % (Auto) 0.900, Neut % (Auto) 84.4 H, Lymph % (Auto) 4.1 L, [place] % (Auto) 7.8, Eos % (Auto) 2.6, Baso % (Auto) 0.2, Absolute Neuts (auto)19.4 H, Absolute Lymphs (auto) 0.93, Nucleated RBC % 0, PT 19.3 H, INR 1.6, APTT21.5 L, Sodium 130 L, Potassium 4.3, Chloride 95 L, Carbon Dioxide 22.9, Anion Gap 12, BUN 21 H, Creatinine 1.31 H, Estim Creat Clear Calc 68.18, Est GFR (MDRD) Non-Af 62, BUN/Creatinine Ratio 15.8, Glucose 251 H, Lactic Acid 2.0, Calcium 9.2, Total Bilirubin 1.09, AST 41 H, ALT 57 H, Alkaline Phosphatase 146 H, Total Protein 7.2, Albumin 3.4, Globulin 3.9, Albumin/Globulin Ratio 0.9 10/29/24 18:20: Urine Color Yellow, Urine Clarity Sl. Cloudy, Urine pH 6.0, Ur Specific [place] 1.015, Urine Protein 30 H, Urine Glucose (UA) 100 H, Urine Ketones Negative, Urine Occult Blood 10 H, Urine Nitrite Negative, Urine Bilirubin Negative, Urine Urobilinogen Normal, Ur Leukocyte Esterase Negative Imaging [facility] Imaging Services [address] [place], [place] [address] Foot min 3 Views MR#: [id number] Acct: [id number] Name: JEFFERSON CARCAMO Rep #: [id number] : 1960 M 64 From: Marcin Escoto MD PCP: Dr. Mayco Fenton MD Status: [facility] ER Study: Foot min 3 Views Date of Exam: 10/29/24 Exam# [id number] Ordering Dr: Sriram Nunez MD PROCEDURE: FOOT MIN 3 VIEWS [...] recommend further evaluation with MRI. Reading Location: [facility] CC: Dr. Mayco Fenton MD; Dr. Sriram Nunez MD ~ Sifter Operator: Signed [facility] Imaging Services [address] [place] [id number] Foot min 3 Views MR#: [id number] Acct: [id number] Name: JEFFERSON CARCAMO Rep #: [id number] : 1960 M 64 From: Gagandeep Hugo MD PCP: Dr. Mayco Fenton MD Status: ADM IN Study: Foot min 3 Views Date of Exam: 10/29/24 Exam# [id number] Ordering Dr: Javy Lynch DPM PROCEDURE: FOOT MIN 3 VIEWS 10/29/2024 REASON FOR EXAM: POST OP TECHNIQUE: Procedure Code: RADFO Modality: DX Procedure: FOOT MIN 3 VIEWS Laterality: COMPARISON: Earlier on the same day. FINDINGS: Since the previous study, there has been amputation of the 5th toe through the mid shaft of the 5thmetatarsal performed. Soft tissue swelling, thickening, and emphysematous changes are noted at the amputation stump.. No osseous erosive or destructive changes. Soft tissue swelling about the foot likely represents generalized cellulitis. Prominent posterior and plantar calcaneal enthesophytes are unchanged from the previous study. RAD/Foot min 3 Views IMPRESSION: As above. Reading Location: [id number] CC: DPM Dr. Javy Lynch; Dr. Mayco Fenton MD ~ Sifter Operator: Signed Assessment & Plan Assessment/Plan (1) Sepsis: QUALIFIERS: Sepsis acute organ dysfunction status: without acute organ dysfunction Sepsis type: sepsis due to unspecified organism Qualified Code(s): A41.9 - Sepsis, unspecified organism (2) Acute osteomyelitis of left foot: (3) Diabetic infection of left foot: (4) Diabetes mellitus with diabetic polyneuropathy: QUALIFIERS: Diabetes mellitus fci insulin use: without locomotive crane operator helper use Diabetes mellitus type: type 2 Qualified Code(s): E11.42 - Type 2 diabetes mellitus with diabetic polyneuropathy (5) History of venous thromboembolism: (6) Chronic anticoagulation: (7) Obesity (BMI 30.0-34.9): PLAN: Plan 1. Leukocytosis of 22.9K with Fever of 100.2 degrees Fahrenheit in addition to persistent Sinus Tachycardia concerning for Sepsis - Admit to ICU after medically-necessary emergency surgery that does not require preoperative evaluation. Continue IV piperacillin-tazobactam and IV vancomycin begun in ER and await culture & sensitivity data. Give ondansetron IV prn for nausea and vomiting. Give acetaminophen prn for [id number] (level 1-5/10) pain or fever. Give morphine IV prn for severe (level 6-10/10) pain. Finally, podiatrywas to take patient for emergent surgery with help appreciated. 2. Worsening Left DFU complicated by Hyperglycemia of 251 mg/dL consistent withUncontrolled DM-2 with master black belt on-call to take patient for emergent surgery causing #1 - Keep NPO for now. FSBS q. 6 hours plus lowest-intensity SSI. Check HgbA1c to objectively evaluate quality of diabetic control. 3. History of multiple DVT's/PE's; on rivaroxaban adding to the medical complexity of #1 & #2 -Hold rivaroxaban until patient cleared to restart by podiatry. 4. Obesity (class I); with BMI of 30.6 this admission adding to the burden of disease outlined from#1 - #3 - Weight loss will be recommended. Check TSH. This complicates his case and may hamper recovery. 5. Essential hypertension; on lisinopril and metoprolol - Hold scheduled antihypertensives in lightof #1. 6. Hyperlipidemia; on atorvastatin - Resume statin. 7. DM-2; uncontrolled with Hyperglycemia on metformin and glimepiride with history of DFU followed by a nonlocal master black belt - Hold metformin and glimepiride while inpatient. Keep NPO for surgery. Check FSBS q. 6 hours plus give lowest intensity SSI. 8. History of gout; on allopurinol - Stable with no evidence of flare. Continue allopurinol as previous. 9. OA; s/p Left THR - Stable. Give acetaminophen prn as outlined in #1. 10. DVT prophylaxis - Start LMWH after surgery if okay with master black belt. Place [facility]. Total time: Approximately (but not less than) 75 minutes. Sepsis Attestation Sepsis Alert: Yes Sepsis Attestation: Sepsis Ruled Out Date exam was performed: 10/30/24 Time exam was performed: 19:15 Possible Source of Sepsis: Skin/soft tissue Supportive Findings: In the ER he was noted to have Leukocytosis of 22.9K with Fever of 100.2 degreesFahrenheit in addition to persistent Sinus Tachycardia concerning for Sepsis dueto worsening Left DFU complicated by Hyperglycemia of 251 mg/dL consistent with Uncontrolled DM-2 with master black belt on-call to take patient for emergent surgery. Fluid Resuscitation Fluid resuscitation indicated?: Yes Fluid Resuscitation ordered: 30 ml/kg fluid bolus ordered Amount of fluid ordered: 2 Sepsis Note Date exam was performed: 10/29/24 Time exam was performed: 23:15 Sepsis Attestation: Sepsis re-evaluation was performed Response to fluids: Fluid responsive hypotension Charges/Coding Visit Charges Inpatient E&M: 82000 Init Hosp L3 10/30/24 0652 Cosigner Signature (if applicable): CC: Dr. Ruslan Adams DO; Dr. Mayco Fenton MD~ Signed [facility]09-13-2025 Consult note Author Anne Simmons [facility] Note Date/Time October 29, 2024 11:11pm [facility] Medical Records Department [address] [place] [address] Pharmacokinetic/Renal -Consult 10/29/24 1453 MR#: [id number] Acct: [id number] Name: JEFFERSON CARCAMO Rep #:[id number] : 1960 64 From: Anne Simmons PCP: Dr. Mayco Fenton MD Status:ADM I N Y Location: ICU CVICU20 02-17 Consult Antibiotic Management Pharmacy has been consulted to manage selected antibiotic: Vancomycin Type of Intervention Type of Consult: New start Suspected Infection Suspected Infection: Sepsis Labs Labs: Sodium 130 mmol/L (133-145) L 10/29/24 17:35 Sodium Cancelled 10/29/24 17:35 Potassium 4.3 mmol/L (3.3-5.1) 10/29/24 17:35 Potassium Cancelled 10/29/24 17:35 Chloride 95 mmol/L (98-108) L 10/29/24 17:35 Chloride Cancelled 10/29/24 17:35 Carbon Dioxide 22.9 mmol/L (21.0-32.0) 10/29/24 17:35 Carbon Dioxide Cancelled 10/29/24 17:35 Anion Gap 12 (5-15) 10/29/24 17:35 Anion Gap Cancelled 10/29/24 17:35 BUN 21 mg/dL (4-19) H 10/29/24 17:35 BUN Cancelled 10/29/24 17:35 Creatinine 1.31 mg/dL (0.70-1.20) H 10/29/24 17:35 Creatinine Cancelled 10/29/24 17:35 Est GFR (MDRD) Non-Af 62 (>60) 10/29/24 17:35 Est GFR (MDRD) Non-Af Cancelled 10/29/24 17:35 BUN/Creatinine Ratio 15.8 RATIO (10-20) 10/29/24 17:35 BUN/Creatinine Ratio Cancelled 10/29/24 17:35 Glucose 251 mg/dL (70-99) H 10/29/24 17:35 Glucose Cancelled 10/29/24 17:35 Estimated Creatinine Clearance Estimated Creatinine Clearance: 68.1 Goal Trough Goal Trough: 15-20 mcg/mL Pharmacy Plan for Drug Dosing Pharmacy Plan for Drug Dosing: NEW START IV VANCOMYCIN Consulting Physician: Dr. Adams Indication: Sepsis Goal Trough: 15-20 SrCr: 1.31 CrCl: 68.1 ml/min Comments: Received 2000mg x1 dose @ 20:12 10/29/24 Vancomycin Dose: 1250mg Q12H to start @ 08:00 10/30/24 Pending Level: 10/31/24 @ 07:30 Pharmacy Service will continue to monitor and adjust dosing as required. Follow-Up Labs Follow-Up Labs: Trough: Vancomycin (10/31/24 @ 07:30) 10/29/24 2255 <Electronically signed by Anne Simmons> Date _ Anne Simmons 10/29/24 2311 <Electronically signed by Ruslan Larson DO> Cosigner Signature (if applicable): Date Ruslan Adams DO CC: ~ Signed [facility] Work Phone: 1(712) 178-138309-13-2025 Radiology Diagnostic study note [facility] Imaging Services [address] [place], [place] [address] Foot min 3 Views MR#: [id number] Acct: [id number] Name: JEFFERSON CARCAMO Rep #: [id number] : 1960 M 64 From: Eddie Hugo MD PCP: Dr. Mayco Fenton MD Status: ADM I N Study:Foot min 3 Views Date of Exam: 02/10 Exam# [id number] Ordering Dr: Javy Lynch DPM PROCEDURE: FOOT MIN 3 VIEWS 10/29/2024 REASON FOR EXAM: POST OP TECHNIQUE: Procedure Code: RADFO Modality: DX Procedure: FOOT MIN 3 VIEWS Laterality: COMPARISON: Earlier on the same day. FINDINGS: Since the previous study, there has been amputation of the 5th toe through the mid shaft of the 5thmetatarsal performed. Soft tissue swelling, thickening, and emphysematous changes are noted at the amputation stump.. No osseous erosive or destructive changes. Soft tissue swelling about the foot likely represents generalized cellulitis. Prominent posterior and plantar calcaneal enthesophytes are unchanged from the previous study. RAD/Foot min 3 Views IMPRESSION: As above. Reading Location: [id number] CC: GURDEEP Lynch; Dr. Mayco Fenton MD ~ Sifter Operator: Signed [facility]09-12-2025 Consult note Author Reynaldo Willett [facility] Note Date/Time October 29, 2024 9:12pm [facility] Medical Records Department [address] [place] [address] Anesthesia Postop Eval II 10/29/242111 MR#: [id number] Acct: [id number] Name: JEFFERSON CARCAMO Rep #:[id number] : 1960 64 From: Reynaldo Willett MD PCP: Dr. Mayco Fenton MD Status:ADM I N Y Race: C Location: ICU CVICU 201-1 Anesthesia Postop Eval I Sum Postop Eval Completion status Anesthesia document: Postop Eval 1 completed: Yes Anesthesia Postop Eval I Summary Anesthesia Postop Eval I Summary: Anesthesia Postop Eval I: Assessment Summary Airway patent Yes 10/29/24 21:09 Spontaneous unlabored Yes 10/29/24 21:09 respirations Mental status nausea No 10/29/24 21:09 Vomiting No 10/29/24 21:09 Anesthesia Postop Eval I: Fluid Summary Crystalloid volume administer 1,000 10/29/24 21:09 (ml) Colloids volume administered ( ml) Blood Product volume administered (ml) Total IV fluid infused 1,000 10/29/24 21:09 Anesthesia Postop Eval I: Summary Notes Anesthesia Complication No 10/29/24 21:09 Anesthesia Complication Comment: Post-operative progress note Anesthesia: Postop Eval II Evaluation Mental status: Calm Pain Level: 0 nausea: No Vomiting: No 10/29/242111 <Electronically signed by Reynaldo Willett MD> Date _ Reynaldo Robert Signature: Date CC: ~ Signed [facility] Work Phone: 1(974) 268-577309-12-2025 Consult note [facility] Medical Records Department [address] [address] Pharmacokinetic/Renal -Consult 10/29/24 2254 MR#: [id number] Acct: [id number] Name: JEFFERSON CARCAMO Rep #:[id number] : 1960 64 From: Anne Simmons PCP: Dr. Mayco Fenton MD Status:ADM I N Y Location: ICU [facility] 1-1 Consult Antibiotic Management Pharmacy has been consulted to manage selected antibiotic: Vancomycin Type of Intervention Type of Consult: New start Suspected Infection Suspected Infection: Sepsis Labs Labs: Sodium 130 mmol/L (133-145) L 10/29/24 17:35 Sodium Cancelled 10/29/24 17:35 Potassium 4.3 mmol/L (3.3-5.1) 10/29/24 17:35 Potassium Cancelled 10/29/24 17:35 Chloride 95 mmol/L (98-108) L 10/29/24 17:35 Chloride Cancelled 10/29/24 17:35 Carbon Dioxide 22.9 mmol/L (21.0-32.0) 10/29/24 17:35 Carbon Dioxide Cancelled 10/29/24 17:35 Anion Gap 12 (5-15) 10/29/24 17:35 Anion Gap Cancelled 10/29/24 17:35 BUN 21 mg/dL (4-19) H 10/29/24 17:35 BUN Cancelled 10/29/24 17:35 Creatinine 1.31 mg/dL (0.70-1.20) H 10/29/24 17:35 Creatinine Cancelled 10/29/24 17:35 Est GFR (MDRD) Non-Af 62 (>60) 10/29/24 17:35 Est GFR (MDRD) Non-Af Cancelled 10/29/24 17:35 BUN/Creatinine Ratio 15.8 RATIO (10-20) 10/29/24 17:35 BUN/Creatinine Ratio Cancelled 10/29/24 17:35 Glucose 251 mg/dL (70-99) H 10/29/24 17:35 Glucose Cancelled 10/29/24 17:35 Estimated Creatinine Clearance Estimated Creatinine Clearance: 68.1 Goal Trough Goal Trough: 15-20 mcg/mL Pharmacy Plan for Drug Dosing Pharmacy Plan for Drug Dosing: NEW START IV VANCOMYCIN Consulting Physician: Dr. Adams Indication: Sepsis Goal Trough: 15-20 SrCr: 1.31 CrCl: 68.1 ml/min Comments: Received 2000mg x1 dose @ 20:12 10/29/24 Vancomycin Dose: 1250mg Q12H to start @ 08:00 10/30/24 Pending Level: 10/31/24 @ 07:30 Pharmacy Service will continue to monitor and adjust dosing as required. Follow-Up Labs Follow-Up Labs: Trough: Vancomycin (10/31/24 @ 07:30) 10/29/248 Date _ Anne Simmons 10/29/24 2311 nzo DO> Cosigner Signature (if applicable): Date Ruslan Adams DO CC: ~ Signed [facility]09-12-2025 Consult note Author Reynaldo Willett [facility] Note Date/Time October 29, 2024 9:11pm [facility] Medical Records Department [address] [place] [address] Anesthesia Postop Eval I 10/29/242108 MR#: [id number] Acct: [id number] Name: JEFFERSON CARCAMO Rep #:[id number] : 1960 64 From: Reynaldo Willett MD PCP: Dr. Mayco Fenton MD Status:ADM I N Y Race: C Location: ICU CVICU 201-1 Anesthesia: Postop Eval I Current Vital Signs Temperature: 36.5 F Pulse Rate: 100 Blood Pressure: 124/65 Respiratory Rate: 16 Pulse Ox: 100 Assessment Airway patent: Yes Spontaneous unlabored respirations: Yes nausea: No Vomiting: No Anesthesia Complication: No Fluid Hydration Crystalloid volume administer (ml): 1,000 Total IV fluid infused: 1,000 Progress Note Anesthesia document: Postop Eval 1 completed: Yes 10/29/242110 <Electronically signed by Reynaldo Willett MD> Date _ Reynaldo Willett MD Cosigner Signature: Date CC: ~ Signed [facility] Work Phone: 1(264) 843-347309-12-2025 Consult note Author Reynaldo [facility] Note Date/Time October 29, 2024 8:50pm [facility] Medical Records Department [address] [place] [address] Pre-Anesthesia Evaluation 10/29/242049 MR#: [id number] Acct: [id number] Name: JEFFERSON CARCAMO Rep #:[id number] : 1960 64 From: Reynaldo Willett MD PCP: Dr. Mayco Fenton MD Status:ADM I N Y Race: C Location: ICU CVICU 201-1 ASA Classification* ASA Classification ASA Classification: 3 and E Assessment & Plan Anesthesia* Anesthesia Assessment Anesthesia Assessment: Discussed sedation and/or anesthesia options, risks, benefits, and alternatives with patient/parents/legal guardian/POA. Questions invited. The patient/parents/legal guardian/POA seems to understand and agrees to proceedwith anesthesia plan. Reviewed the physical assessment, medical history, allergy history and patient home medications list prior to surgery/procedure/anesthetic and documented any changes. Performed airway and anesthesia risk assessments. Anesthesia Type Anesthesia Type: MAC Anesthesia Focused Assessment* Temperature: 99.6 F Pulse Rate: 102 Blood Pressure: 151/71 Respiratory Rate: 20 Pulse Ox: 100 Airway Assessment Mouth opens: >3 cm Mallampati Score: III Labs Anesthesia Preop lab: CBC WBC 22.9 K/mm3 (4.4-11.0) H 10/29/24 17:35 5 RBC 3.92 M/mm3 (4.6-6.2) L 10/29/24 17:35 10/29/24 Hgb 11.9 g/dL (13.0-16.5) L 10/29/24 17:35 5 Hct 36.2 % (40-54) L 10/29/24 17:35 10/29/24 Plt Count TNP 10/29/24 17:35 10/29/24 CHEMISTRY Potassium 4.3 mmol/L (3.3-5.1) 10/29/24 17:35 10/29/24 Sodium 130 mmol/L (133-145) L 10/29/24 17:35 10/29/24 BUN 21 mg/dL (4-19) H 10/29/24 17:35 10/29/24 Creatinine 1.31 mg/dL (0.70-1.20) H 10/29/24 17:35 Glucose 251 mg/dL (70-99) H 10/29/24 17:35 10/29/24 COAG PT 19.3 SECONDS (11.7-14.9) H 10/29/24 17:35 10/18 04/13 Pre-Assessment Diagnosis/Proposed Procedure Planned Operative Procedure(s): id of foot Anesthesia History 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 When Was Last Pacemaker Check QUESTION #4 FULL TEXT: You/Your Family Experience fever (hyperthermia) with Anesthesia Last Oral Intake Last Oral intake: Last Oral Intake NPO since Meds taken in AM with sips of water? 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 Female HX of Motion Sickness HX of N/V After Surgery Non-Smoker Duration of Surgery greater than 60 minutes Number of Risk Factors PONV Score Height & Weight Height & Weight: Anesthesia: Height & Weight Height 5 ft 10 in 10/29/24 16:40 Weight: 96.615 kg 10/29/24 16:40 Body Mass Index (BMI) 30.5 10/29/24 16:40 Respiratory Assessment Respiratory Assessment - national guard member: Respiratory Tract Infection Hx - national guard member Hx Respiratory Tract Infection STOP Sleep Apnea STOP Sleep Apnea - national guard member: STOP Sleep Apnea - national guard member Hx Hypertension Hx Sleep Apnea CPAP BIPAP Do you snore loudly (louder than talking or can be heard Do you often feel tired/ fatigued/ sleepy during daytime? Has anyone observed you stop breathing during sleep? STOP Results QUESTION #5 FULL TEXT : Do you snore loudly (louder than talking or can be heard through closed doors)? 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 Specify any problems Hx of Preganancy in last 3 Months Nurse Filling Out Transfusion & Questions: Date: Time: Patient unable to answer at this time (ie. 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 10/29/242049 <Electronically signed by Reynaldo Willett MD> Date _ Reynaldo Willett MD Cosigner Signature: Date CC: ~ Signed [facility] Work Phone: 1(268) [phone] Evaluation note* Diagnosis Onset Date Resolution Status Admit Date Acute osteomyelitis of left foot acute October 29, 2024 7:49pm Chronic anticoagulation acute S eptember 2024 7:49pm Diabetes mellitus with diabetic polyneuropathy acute Octembe r 2024 7:49pm Diabetic infection of left foot acute October 29, 2024 7:49pm Gangrene, not elsewhere classified acute October 29, 2024 7:49pm Obesity (BMI 30.0-34.9) acute S eptember 2024 7:49pm Sepsis acute October 7:49pm Subcutaneous air acute Septembe r 2024 7:49pm Type 2 diabetes mellitus wit h foot ulcer acute October 29, 2024 7:49pm Hypertension chronic October 292024 7:49pm Cellulitis of left lower limb resolv ed October 29, 2024 7:49pm Sinus tachycardia resolved Septemb er 2024 7:49pm History of venous thromboembolism inactive October 29, 2024 7:49pm PAD (peripheral artery disease) inactive October 29, 2024 7:49pm [facility] Work Phone: 1(518) 540-638109-12-2025 Consult note Author Javy Lynch [facility] Note Date/Time November 04, 2024 3:52pm [facility] Medical Records Department [address] [place] [address] Consultation 10/29/241940 MR#: [id number] Acct: [id number] Name: JEFFERSON CARCAMO Rep #:[id number] : 1960 64 From: Javy Lynch DPM PCP: Dr. Mayco Fenton MD Status:DIS I N Location: [place] [address] Assessment & Plan Assessment/Plan (1) Gangrene, not [...] with ER physician as well as with business info consultant anesthesiologist. Patient has been started on IV [...] been started on IV antibioticsVanc and Zosyn. [facility] Medical History Physical exam, pre-employment Home Medications [...] mg tablet (Xarelto) 10 mg PO QDAY 05/06 /25 09/11/25 History Allergy/AdvReac Type Severity Reaction Status Date [...] 84.4 H, Lymph % (Auto) 4.1 L, [place] % (Auto) 7.8, Eos % (Auto) 2.6, [...] Sl. Cloudy, Urine pH 6.0, Ur Specific [place] 1.015, Urine Protein 30 H, Urine Glucose [...] recommend further evaluation with MRI. Reading Location: [facility] 10/29/241955 <Electronically signed by Javy Lynch DPM> Cosigner Signature (if applicable): CC: Dr. Mayco Fenton MD~ Signed ADDENDUM by DPM Dr. Javy Lynch on 11/10/24 at 2207 Addendum Also diagnosis of right foot ulcers L97.512, and there is noted to be some localized erythema to forefoot consistent with cellulitis to ulcer site of sub 5th MTPJ - L03.115, a culture of wound sub right 5th MTPJ was obtained and sent to microbiology. This was discussed with patient and will continue to follow. Reviewed importance of strict offloading and will proceed with IV antibiotic therapy as noted. JSW 11/10/242206<Electronically signed by Javy Lynch DPM> Cosigner Signature (if applicable): cc: Dr. Mayco Fenton MD ~* Signed [facility] Work Phone: 1(125) 783-699209-12-2025 Consult note [facility] Medical Records Department [address] [place] [address] Anesthesia Postop Eval II 10/29/242111 MR#: [id number] Acct: [id number] Name: JEFFERSON CARCAMO Rep #:[id number] : 1960 64 From: Reynaldo Willett MD PCP: Dr. Mayco Fenton MD Status:ADM I N Y Race: C Location: ICU CVICU 201-1 Anesthesia Postop Eval I Sum Postop Eval Completion status Anesthesia document: Postop Eval 1 completed: Yes Anesthesia Postop Eval I Summary Anesthesia Postop Eval I Summary: Anesthesia Postop Eval I: Assessment Summary Airway patent Yes 10/29/24 21:09 Spontaneous unlabored Yes 10/29/24 21:09 respirations Mental status nausea No 10/29/24 21:09 Vomiting No 10/29/24 21:09 Anesthesia Postop Eval I: Fluid Summary Crystalloid volume administer 1,000 10/29/24 21:09 (ml) Colloids volume administered ( ml) Blood Product volume administered (ml) Total IV fluid infused 1,000 10/29/24 21:09 Anesthesia Postop Eval I: Summary Notes Anesthesia Complication No 10/29/24 21:09 Anesthesia Complication Comment: Post-operative progress note Anesthesia: Postop Eval II Evaluation Mental status: Calm Pain Level: 0 nausea: No Vomiting: No 10/29/242111 MD> Date _ Reynaldo Yanezignabena Signature: Date CC: ~ Signed [facility]09-12-2025 Consult note [facility] Medical Records Department [address] [place] [address] Anesthesia Postop Eval I 10/29/242108 MR#: [id number] Acct: [id number] Name: JEFFERSON CARCAMO Rep #:[id number] : 1960 64 From: Reynaldo Willett MD PCP: Dr. Mayco Fenton MD Status:ADM I N Y Race: C Location: ICU [place] [address] Anesthesia: Postop Eval I Current Vital Signs Temperature: 36.5 F Pulse Rate: 100 Blood Pressure: 124/65 Respiratory Rate: 16 Pulse Ox: 100 Assessment Airway patent: Yes Spontaneous unlabored respirations: Yes nausea: No Vomiting: No Anesthesia Complication: No Fluid Hydration Crystalloid volume administer (ml): 1,000 Total IV fluid infused: 1,000 Progress Note Anesthesia document: Postop Eval 1 completed: Yes 10/29/242110 MD> Date _ Reynaldo Willett MD Cosigner Signature: Date CC: ~ Signed [facility]09-12-2025 Consult note [facility] Medical Records Department [address] [place] [address] Pre-Anesthesia Evaluation 10/29/242049 MR#: [id number] Acct: [id number] Name: JEFFERSON CARCAMO Rep #:[id number] : 1960 64 From: Reynaldo Willett MD PCP: Dr. Mayco Fenton MD Status:ADM I N Y Race: C Location: ICU CVU 201-1 ASA Classification* ASA Classification ASA Classification: 3 and E Assessment & Plan Anesthesia* Anesthesia Assessment Anesthesia Assessment: Discussed sedation and/or anesthesia options, risks, benefits, and alternatives with patient/parents/legal guardian/POA. Questions invited. The patient/parents/legal guardian/POA seems to understand and agrees to proceedwith anesthesia plan. Reviewed the physical assessment, medical history, allergy history and patient home medications list prior to surgery/procedure/anesthetic and documented any changes. Performed airway and anesthesia risk assessments. Anesthesia Type Anesthesia Type: MAC Anesthesia Focused Assessment* Temperature: 99.6 F Pulse Rate: 102 Blood Pressure: 151/71 Respiratory Rate: 20 Pulse Ox: 100 Airway Assessment Mouth opens: >3 cm Mallampati Score: III Labs Anesthesia Preop lab: CBC WBC 22.9 K/mm3 (4.4-11.0) H 10/29/24 17:35 5 RBC 3.92 M/mm3 (4.6-6.2) L 10/29/24 17:35 10/29/24 Hgb 11.9 g/dL (13.0-16.5) L 10/29/24 17:35 5 Hct 36.2 % (40-54) L 10/29/24 17:35 10/29/24 Plt Count TNP 10/29/24 17:35 10/29/24 CHEMISTRY Potassium 4.3 mmol/L (3.3-5.1) 10/29/24 17:35 10/29/24 Sodium 130 mmol/L (133-145) L 10/29/24 17:35 10/29/24 BUN 21 mg/dL (4-19) H 10/29/24 17:35 10/29/24 Creatinine 1.31 mg/dL (0.70-1.20) H 10/29/24 17:35 Glucose 251 mg/dL (70-99) H 10/29/24 17:35 10/29/24 COAG PT 19.3 SECONDS (11.7-14.9) H 10/29/24 17:35 10/18 04/13 Pre-Assessment Diagnosis/Proposed Procedure Planned Operative Procedure(s): id of foot Anesthesia History 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 When Was Last Pacemaker Check QUESTION #4 FULL TEXT: You/Your Family Experience fever (hyperthermia) with Anesthesia Last Oral Intake Last Oral intake: Last Oral Intake NPO since Meds taken in AM with sips of water? 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 Female HX of Motion Sickness HX of N/V After Surgery Non-Smoker Duration of Surgery greater than 60 minutes Number of Risk Factors PONV Score Height & Weight Height & Weight: Anesthesia: Height & Weight Height 5 ft 10 in 10/29/24 16:40 Weight: 96.615 kg 10/29/24 16:40 Body Mass Index (BMI) 30.5 10/29/24 16:40 Respiratory Assessment Respiratory Assessment - national guard member: Respiratory Tract Infection Hx - national guard member Hx Respiratory Tract Infection STOP Sleep Apnea STOP Sleep Apnea - national guard member: STOP Sleep Apnea - national guard member Hx Hypertension Hx Sleep Apnea CPAP BIPAP Do you snore loudly (louder than talking or can be heard Do you often feel tired/ fatigued/ sleepy during daytime? Has anyone observed you stop breathing during sleep? STOP Results QUESTION #5 FULL TEXT : Do you snore loudly (louder than talking or can be heard through closeddoors)? 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 Specify any problems Hx of Preganancy in last 3 Months Nurse Filling Out Transfusion & Questions: Date: Time: Patient unable to answer at this time (ie. 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 10/29/242049 MD> Date _ Reynaldo Yanezignabena Signature: Date CC: ~ Signed [facility]09-12-2025 Consult note [facility] Medical Records Department [address] [place] [address] Consultation 10/29/241940 MR#: [id number] Acct: [id number] Name: JEFFERSON CARCAMO Rep #:[id number] : 1960 64 From: Javy Lynch DPM PCP: Dr. Mayco Fenton MD Status:ADM I N Location: ICU [place] [address] 1-1 Assessment & Plan Assessment/Plan (1) Gangrene, [...] patient in detail, reviewing condition and treatment options.Given the severe infection with gas present recommended [...] with ER physician as well as with business info consultant anesthesiologist. Patient has been started on IV [...] me 1 time for this ulceration early September2024, he did not follow up with me, [...] been started on IV antibioticsVanc and Zosyn. [facility] Medical History Physical exam, pre-employment Home Medications [...] foot or ankle. Decreased sensation bilateral foot co nsistent with chronic peripheral neuropathy. No m/s POP [...] 84.4 H, Lymph % (Auto) 4.1 L, [place] % (Auto) 7.8, Eos % (Auto) 2.6, [...] Sl. Cloudy, Urine pH 6.0, Ur Specific [place] 1.015, Urine Protein 30 H, Urine Glucose [...] recommend further evaluation with MRI. Reading Location: [facility] 10/29/241955 Cosigner Signature (if applicable): CC: Dr. Mayco Fenton MD~ Signed [facility]09-12-2025 [facility] Medical Records Department [address] [facility] [place] [address] Consultation 10/29/241940 MR#: [id number] Acct: [id number] Name: JEFFERSON CARCAMO Rep #: [id number] : 1960 64 From: Javy Lynch DPM PCP: Dr. Mayco Fenton MD Status:DIS IN Location: [place]3 [id number] Assessment Plan Assessment/Plan (1) Gangrene, not elsewhere classified: [...] emergent debridement of all nonviable, necrotic and infected soft tissue and bone from left foot with at least a 5th toe and 5th metatarsal amputation. Reviewed rationale of this with him in detail. He expressed understanding and agreement and he would like to proceed with this procedure at this time. We will add on to go to the operating room for this. I spoke with ER physician as well as with business info consultant anesthesiologist. Patient has been started on IV [...] to have that ulceration as well as a new ulceration right sub 5th metatarsal which was debrided by Dr. Glass, but patient's acute issue now is left diabetic foot infection. He relates he believes this just happened today - relates the left 5th toe turned black today. He is not feeling well. He has diabetes with peripheral neuropathy. 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 I was consulted by the Emergency Physician Dr. Nunez. Patient has been started on IV antibiotics Vanc and Zosyn. [facility] Medical History Physical exam, pre-employment Home Medications ???Medication ???Instructions ???Recorded ???Last Taken ???Type allopurinol 200 mg tablet 300 mg PO QDAY 06/22/24 10/29/24 H istory atorvastatin 40 mg tablet 10 mg PO QDAY 06/22/24 10/28/24 Hi story glimepiride 2 mg tablet 6 mg PO QAM 06/22/24 10/29/24 Hist ory lisinopril 10 mg tablet 5 mg PO QDAY 06/22/24 10/29/24 His tory metformin 500 mg tablet 500 mg PO QDAY 06/22/24 10/29/24 H istory metoprolol tartrate 50 mg tablet 25 mg PO QDAY 06/22/24 10/29/24 Hi story rivaroxaban 10 mg tablet (Xarelto) 10 mg PO QDAY 06/22/24 10/28/24 History Allergy/AdvReac Type Severity Reaction Status Date [...] m/s POP or pain on ROM to foot or ankle bilateral. 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 Lab / Micro Data 10/29/24 17:35 10/29/24 17:35 Labs: Laboratory Results - last 24 hr 10/29/24 17:35: WBC 22.9 H, RBC 3.92 L, Hgb 11.9 L, Hct 36.2 L, MCV 92.3, MCH 30.4, MCHC 32.9, RDW Std Deviation 42.7, RDW (more content not included)...[facility] 10-29-2024 Radiology Diagnostic study note [facility] Imaging Services [address] [place] [address] Foot min 3 Views MR#: [id number] Acct: [id number] Name: JEFFERSON CARCAMO Rep #: [id number] : 1960 M 64 From: Marcin Escoto MD PCP: Dr. Mayco Fenton MD Status: REG E R Study:Foot min 3 Views Date of Exam: 02/10 Exam# [id number] Ordering Dr: Mikey Nunez MD PROCEDURE: FOOT [...] recommend further evaluation with MRI. Reading Location: [facility] CC: Dr. Mayco Fenton MD; Dr. Sriram Nunez MD ~ Sifter Operator: Signed [facility]09-12-2025 Discharge summary [facility] Medical Records Department [address] [place] [address] Emergency Department Summary 10/29/24 MR#: [id number] Acct: [id number] Name: JEFFERSON CARCAMO Rep #:[id number] : 1960 64 From: Sriram Nunez MD PCP: Dr. Mayco Fenton MD Status:REG E R Location: ED ADDENDUM by Dr. Sriram Nunez MD on 10/29/24 at 1918 Sinus tachycardia rate of 106. VT interval 132 ms per cures duration 78 ms. QTduration is 320 ms. [place] is normal. Other than sinus tachycardia the EKG is normal 10/29/241918 Cosigner Signature (if applicable): cc: Dr. 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 He is present under the care of master black belt. Meteorological Observer is notin this area. He presents because of a [...] similar symptoms: Yes Recent Illness/Hospitalization: No PFSH [facility] Medical History Physical exam, pre-employment Home Medications [...] to inspection, nondistended, normoactive bowel sounds, non-tender, non- distended and no masses; Negative for hepatosplenomegaly GI [...] podiatry was consulted. Dr. Cheney is presently inthe department and looking at patient because of the subcu air noted on his x-ray. Lab Data Attestation: I reviewed the patient's lab results. Lab results narrative: White count is elevated 22.9 thousand with shift. H&H 11.9 and 36.2. PTT is slightly elevated 19.3 PTT is low. Comprehensive metabolic panel is mild Debow for mild hyponatremia and hypochloremia.BUN is elevated 21 to creatinine 1.31. Estimated [...] 84.4 H Lymph % (Auto) 4.1 L [place] % (Auto) 7.8 Eos % (Auto) 2.6 [...] Sl. Cloudy Urine pH 6.0 Ur Specific [place] 1.015 Urine Protein 30 H Urine Glucose [...] is emergent. Plan is admit ICU) and Lumber Scaler (Case was discussed with Dr. Cheney. Heinforming that he initially was treating the patient prior to him going to Dr. Glass.) Treatment and Re-Evaluation :: Sepsis workup was initiated after seeing patient. He was treated with Zosyn andvancomycin. Podiatrywas consulted. In light of the x-ray findings Dr. Wright repaged. Comments:: Plan is OR after seen by podiatry. He requested the hospitalist see him in the emergencydepartment for emergent clearance. Critical Care Time Critical Care Time: Yes Critical care time (excluding procedures): 30-74 minutes (33), Including time spent: (History, physical, documentation, independent or potation laboratory results and imaging consultation with podiatry, discussion with hospitalist, facilitate transfer to the OR for emergent surgery. This), Discussing w/Patient&/or Family/Strategic Accounts Manager, Discussing w/Consultants and Arranging Admission or Transfer Discharge Plan Dx/Rx/DC Orders Clinical Impression: Diabetic infection of left foot, Hypertension, Sepsis, Acute osteomyelitis of left foot, Subcutaneous air, Sinus tachycardia Disposition Disposition: Acute Care Hospital [facility] What to do if you have Problems For any increased pain, shortness of breath, bleeding, nausea or vomiting, chestpain, or any unexpected problems, contact your Primary Care Provider. Call [facility] ([phone]) or report tothe closest Emergency Room. Call 911 if necessary. 10/29/241917 Cosigner Signature (if applicable): CC: Dr. Mayco Fenton MD ~ Signed [facility]09-12-2025 Discharge summary Author Sriram Nunez [facility] Note Date/Time October 29, 2024 7:19pm [facility] Medical Records Department [address] [facility] [place] [address] Emergency Department Summary 10/29/24 MR#: [id number] Acct: [id number] Name: JEFFERSON CARCAMO Rep #:[id number] : 1960 64 From: Sriram Nunez MD PCP: Dr. Mayco Fenton MD Status:REG E R Location: ED ADDENDUM by Dr. Sriram Nunez MD on 10/29/24 at 1918 Sinus tachycardia rate of 106. VT interval 132 ms per cures duration 78 ms. QTduration is 320 ms. [place] is normal. Other than sinus tachycardia the [...] He is present under the care of master black belt. Meteorological Observer is not in this area. He presents [...] similar symptoms: Yes Recent Illness/Hospitalization: No PFSH PFS Medical History Physical exam, pre-employment Home Medications [...] 84.4 H Lymph % (Auto) 4.1 L [place] % (Auto) 7.8 Eos % (Auto) 2.6 [...] Sl. Cloudy Urine pH 6.0 Ur Specific [place] 1.015 Urine Protein 30 H Urine Glucose [...] is emergent. Plan is admit ICU) and Lumber Scaler (Case was discussed with Dr. Cheney. He [...] OR for emergent surgery. This), Discussing w/Patient&/or Family/Strategic Accounts Manager, Discussing w/Consultants and Arranging Admission or Transfer Discharge Plan Dx/Rx/DC Orders Clinical Impression: Diabetic infection of left foot, Hypertension, Sepsis, Acute osteomyelitis of left foot, Subcutaneous air, Sinus tachycardia Disposition Disposition: [facility] What to do if you have Problems For any increased pain, shortness of breath, bleeding, nausea or vomiting, chestpain, or any unexpected problems, contact your Primary Care Provider. Call [facility] ([phone]) or report to the closest Emergency Room. Call 911 if necessary. 10/29/241917 <Electronically signed by Sriram Nunez MD> Cosigner Signature (if applicable): CC: Dr. Mayco Fenton MD ~ Signed [facility] Work Phone: 1([phone]) 994-389008-04-2025 History of Present illness Narrative* Giovanna Cook MD - 09/20/2024 3:40 PM EDT Patient ID: Jefferson Carcamo is a 64 y.o. male. [place]: [place] [address] [facility] [place] [address] Primary Care Provider: Heriberto Davalos, Visit Type: Follow Up Subjective HPI How [...] 200 cells/uL Final No components found for: "PT" No results found for: "APTT" Medication Documentation Review Audit Reviewed by Kary George MA (Railway Yard Assistant) on 09/20/24 at 1534 Medication Order Taking? Sig Documenting Provider Last Dose Status allopurinol (Zyloprim) 300 mg tablet [id number] Yes TAKE 1 TABLET BY MOUTH EVERY DAY Heriberto Davalos DO Active atorvastatin (Lipitor) 10 mg tablet [id number] Yes TAKE 1 TABLET BY MOUTH EVERY DAY Heriberto Davalos DO Active blood sugar diagnostic (Accu-Chek Neena Plus test strp) strip [id number] Yes Inject 1 strip into theskin once daily. Heriberto Davalos DO Active glimepiride (Amaryl) 4 mg tablet [id number] Yes TAKE 1 & 1/2 TABLETS BY MOUTH EVERY DAY Heriberto Davalos DO Active lancets (Accu-Chek Softclix Lancets) misc [id number] Yes Inject 1 strip under the skin once daily. Use as directed to test daily. Heriberto Davalos DO Active lisinopril 10 mg tablet [id number] Yes Take 0.5 tablets (5 mg) by mouth once daily. Heriberto Davalos DO Active metFORMIN (Glucophage) 1,000 mg tablet [id number] Yes TAKE 1/2 TABLET BY MOUTH EVERY 12 HOURS Heriberto Davalos DO Active metoprolol succinate XL (Toprol-XL) 25 mg 24 hr tablet [id number] Yes TAKE 1 TABLET BY MOUTH DAILY Heriberto Davalos DO Active Xarelto 20 mg tablet [id number] Yes TAKE 1 TABLET BY MOUTH EVERY [...] reviewed--wbc 12.9, hgb 12.8, plt 311,000, ANC 77772, abs lymph 3230 abs mono 930 -has [...] Clinic Appointment Request Follow Up; GIOVANNA COOK; [facility] CBC and Auto Differential Iron and TIBC Ferritin Large granular lymphocytic leukemia (Multi) C91.Z0 Relevant Orders Clinic Appointment Request Follow Up; GIOVANNA COOK; [facility] CBC and Auto Differential Comprehensive metabolic [...] Grandfather Cancer Other Aunt documented in this [facility] Work Phone: 1([phone]) 462-743108-04-2025 Instructions* Patient Instructions* Giovanna Cook MD - 09/20/2024 3:40 PM EDT See you again in 1 year documented in this [facility] Work Phone: 1([phone]) 756-738505-06-2025 Evaluation note* Diagnosis Onset Date Resolution Status Admit Date Physical exam, pre-employment acute June 22, 2024 4:16pm [facility] Work Phone: 1([phone]) 995-250703-03-2025 History of Present illness Narrative* Heriberto Davalos, [...] today and showed lipid panel total cholesterol [id number] HDL 51 triglycerides 79, LDL 44, magnesium [...] C (97.3 F) Ht 1.778 m (5' 10") Wt 98 kg (216 lb) BMI 30.99 [...] Check a PSA level documented in this [facility] Work Phone: 1(455) 192-415801-15-2025 History of Present illness Narrative* Heriberto Davalos [...] C (97.2 F) Ht 1.778 m (5' 10") Wt 98.2 kg (216 lb 9.6 oz) [...] check a magnesium level documented in this [facility] Work Phone: [phone]) 412-653712-27-2024 History of Present illness Narrative* Goyo Snider [...] floor of mouth/tongue/OP, no masses orlesions PHARYNGEAL IDAZ: No masses or lesions NECK/LYMPH: No palpable LAD, no palpable thyroid masses, trachea midline SKIN: Neck skin is without scar or injury PSYCH: Alert and oriented with appropriate mood and affect Last Recorded Vitals Height 1.778 m (5' 10"), weight 97.2 kg (214 lb 4.8 oz). [...] truegrowth based on the the rate of roving changer that time. -Thyroid nodule: Nodule has [...] concerns Goyo Snider MD [facility] Phone: 1(920) 763-876612-21-2024 Hospital Discharge instructions* Discharge Instructions* Mayco Woods [...] Care Everywhere. * Upper Respiratory Infection ED (Emirati) * Viral Upper Respiratory Infection Discharge Instructions, Adult (Emirati) [facility] Work Phone: [phone]) 473-670610-23-2024 History of Present illness Narrative* Mahesh Johnson Tom, ENVIRONMENTAL PROGRAMS SPECIALIST-TECHNICAL PROPOSAL WRITER - 12/10/2023 4:00 PM EDT UROLOGIC INITIAL [...] - see comments. lancets (Accu-Chek Softclix Lancets) mis Use as directed to test daily. metFORMIN [...] with any questions, concerns documented in this [facility] Work Phone: [phone]) 704-270110-08-2024 History of Present illness Narrative* Heriberto Davalos, - 11/25/2023 4:00 PM EDT Subjective Patient [...] C (97.2 F) Ht 1.778 m (5' 10") Wt 98.4 kg (217 lb) BMI 31.14 [...] with urology still forrecheck [facility] Work Phone: [phone]) 529-863809-25-2024 History of Present illness Narrative* Goyo Snider MD - 11/12/2023 3:30 PM EDT ENT Outpatient Consultation Chief Complaint: Thyroid nodule History Of Present Illness Jefferson Carcamo is a 63 y.o. male presents for evaluation of a thyroid nodule. Patient has a known history of nodules and recently had his first ultrasound since 2016. The ultrasound was reviewed in detail showing [...] Last Recorded Vitals Height 1.778 m (5' 10"), weight 95.8 kg (211 lb 1.6 oz). Relevant Results CT abdomen pelvis w IV contrast Result Date: 10/27/2023 STUDY: CT Abdomen and Pelvis with IV Contrast; 10/27/2023 at 3:20 PM INDICATION: Right-sided abdominal tenderness, nausea and vomiting. COMPARISON: Correlation with XR left hip/pelvis 12/06/19. ACCESSION NUMBER(S): [id number] ORDERING CLINICIAN: THERON RIBERA TECHNIQUE: CT of [...] truegrowth based on the the rate of roving changer that time. Since his last ultrasound was 3-1/2 months ago he would like to get a short-term follow-up that will be 6 months from his last ultrasound. At that time he will decide on needle biopsy versus continued surveillance We will reassess his left ear at the next visit Goyo Snider MD documented in this [facility] Work Phone: [phone]) [phone] History of Present illness Narrative* Heriberto Davalos, DO - 11/11/2023 9:30 AM EDT Subjective Patient ID: Jefferson Carcamo is a 63 y.o. male who presents for Follow-up (Follow up on BP). HPI Patient following up today with multiple complaints. He had sent us a lengthy Fl[employer]irds message with multiple points. Therefore we advised him to come into the office to discuss his concerns. We again reviewed his last ER visit from 10/28/2023 as well as last office visit with Dr. Giovanna Cook his senior risk analyst. Patient has been getting borderline low blood [...] C (97.8 F) Ht 1.778 m (5' 10") Wt 95.3 kg (210 lb) BMI 30.13 [...] to call today to get into his emr specialist for exam. No obvious abnormalities of the eyes grossly. Pupils are equal round reactive to light extraocular muscles intact. No evidence of infection. Limited funduscopic exam was negative. documented in this [facility] Work Phone: [phone]) 361-575309-10-2024 History of Present illness Narrative* Heriberto Fields DO Anoop - 10/28/2023 4:00 PM EDT Subjective Patient [...] C (98.6 F) Ht 1.778 m (5' 10") Wt 103 kg (226 lb) BMI 32.43 [...] the right. Continue Flomax. [facility] Work Phone: [phone]) [phone] Hospital Discharge instructions* Discharge Instructions* Theron Ribera PA-C - 10/27/2023 4:29 PM EDT Purchase a urine strainer from any pharmacy if you would like the stone to be tested by urology. Take the Percocet sparingly for severe pain. Take the Zofran for nausea/vomiting. Take the Flomax once daily. Increase your fluid intake to help pass the stone. Follow-up with urology [facility] Work Phone: [phone]) [phone] Emergency department Note* Theron Ribera PA-C - 10/27/2023 11:16 AM EDT Images from the original note were not included. Emergency Department Provider Note History of Present Illness 63-year-old male with history of leukemia not on JAMMER HOOKER being watched, DM2, DVT/PE on Xarelto, HTN, ankylosing spondylitis, HLD, hemochromatosis presenting for right-sided abdominal pain with nausea vomiting. States it came out of nowhere woke him up around 630. States he had 1 episode of nonbloody nonbilious vomiting. Has not tried to eat or drink today due to the vomiting. Denies any abnormal ingestions. Did have a few beers at the [employer] yesterday however does drink similar amounts on [...] reading to minimize errors, minor errors in measuring machine tender may be present call for questions. Theron Ribera PA-C 10/27/23 1634 documented in this [facility] Work Phone: 1(154) 769-521409-09-2024 Physician Emergency department Note* Theron Ribera PA-C - 10/27/2023 11:16 AM EDT Images from the original note were not included. Emergency Department Provider Note History of Present Illness 63-year-old male with history of leukemia not on JAMMER HOOKER being watched, DM2, DVT/PE on Xarelto, HTN, ankylosing spondylitis, HLD, hemochromatosis presenting for right-sided abdominal pain with nausea vomiting. States it came out of nowhere woke him up around 630. States he had 1 episode of nonbloody nonbilious vomiting. Has not tried to eat or drink today due to the vomiting. Denies any abnormal ingestions. Did have a few beers at the [employer] yesterday however does drink similar amounts on [...] reading to minimize errors, minor errors in measuring machine tender may be present call for questions. Theron Ribera PA-C 10/27/23 1634 [facility] Work Phone: 1(912) 680-937106-05-2024 History of Present illness Narrative* Heriberto Davalos, [...] (98 F) (Temporal) Ht 1.778 m (5' 10") Wt 102 kg (225 lb) BMI 32.28 [...] Relevant Orders Prostate Spec.Ag,Screen documented in this [facility] Work Phone: 1(954) 247-629703-06-2024 History of Present illness Narrative* Heriberto Davalos [...] of Ankylosing spondylosis. He had seen a cook frozen dessert in the past. Sugars were 175-250 before [...] (98 F) (Temporal) Ht 1.778 m (5' 10") Wt 109 kg (241 lb) BMI 34.58 [...] mg/3 mL) pen injector documented in this [facility] Work Phone: 1(980) 542-785002-06-2024 History of Present illness Narrative* Heriberto Davalos DO - 03/25/2023 4:00 PM EST Subjective Patient ID: Jefferson Carcamo is a 62 y.o. male who presents for Results. HPI Review of Systems Objective BP 124/80 Pulse 81 Temp 36.7 C (98 F) (Temporal) Ht 1.778 m (5' 10") Wt 112 kg (246 lb) BMI 35.30 [...] (Flexeril) 10 mg tablet [facility] Work Phone: 1([phone] 441-277101-16-2024 History of Present illness Narrative* Heriberto Davalos [...] (97.8 F) (Temporal) Ht 1.778 m (5' 10") Wt 112 kg (248 lb) BMI 35.58 [...] T4 if abnormal (Completed) [facility] Work Phone: 1(997) 179-506111-06-2023 History of Present illness Narrative* Phillip Bernal MD - 12/23/2022 3:30 PM EST BP 120/82 Pulse 96 Ht 1.778 m (5' 10") Wt 115 kg (254 lb) BMI 36.45 [...] skin once daily. lancets (Accu-Chek Softclix Lancets) misc Use as directed to test daily. No [...] linked to this encounter. [facility] Work Phone: 1([phone] 222-422402-05-2022 History of Present illness Narrative* Patient is [...] history of kidney stones. Is followed by cafe server increase hemoglobin A1c noted PSA within normal [...] for annual well and proceed from there. [facility] DO Work Phone: [phone]) 470-559501-14-2022 History of Present illness NarrativeHarry is a [...] got an extensive home workout regimen from [facility] therapy. He says his [...] no bowel or bladder complaints at this visit[facility] Work Phone: 1([phone]) 190-762310-06-2021 History of Present illness NarrativeHe continues glimepiride 4 mg pills, 1/2 pill twice daily Metformin 1000 mg pills, 1/2 pill twice daily, and Januvia 25 mg daily. He test his fingerstick glucose once daily at different times with readings in the morning generally around 100 mg/dL. Postprandial readings are occasionally in the [id number], often in the evening. He has had no serious hypoglycemic episodes. He has lost 3 pounds since last visit. Other medications include lisinopril hydrochlorothiazide metoprolol and atorvastatin.-[facility] Work Phone: Consult note Author Javy Lynch [facility] Note Date/Time October 29, 2024 7:56pm [facility] Medical Records Department [address] [place] [address] Consultation 10/29/241940 MR#: [id number] Acct: [id number] Name: JEFFERSON CARCAMO Rep #:[id number] : 1960 64 From: Javy Lynch DPM [...] with ER physician as well as with business info consultant anesthesiologist. Patient has been started on IV [...] been started on IV antibioticsVanc and Zosyn. [facility] Medical History Physical exam, pre-employment Home Medications [...] 84.4 H, Lymph % (Auto) 4.1 L, [place] % (Auto) 7.8, Eos % (Auto) 2.6, [...] Sl. Cloudy, Urine pH 6.0, Ur Specific [place] 1.015, Urine Protein 30 H, Urine Glucose [...] recommend further evaluation with MRI. Reading Location: [facility] 10/29/241955 <Electronically signed by Javy KIRKLAND> Cosigner Signature (if applicable): CC: Dr. Mayco Fenton MD~ Signed [facility] Work Phone: Consult note Author Giancarlo Berry [facility] Note Date/Time November 04, 2024 3:52pm [facility] Medical Records Department [address] [place] [address] Counseling Note - Pharmacy 11/04/24 1507 MR#: [id number] Acct: [id number] Name: JEFFERSON CARCAMO Rep #:[id number] : 1960 64 From: Giancarlo brizuela PCP: Dr. Mayco Fenton MD Status:ADM I N Y Location: [place] [address] Pharmacy [place] Med Reconciliation Pharmacy Service has performed discharge medication reconciliation for this patient. The patient's discharge medication list was reviewed for discrepancies and discrepancies were resolved. Medications at Discharge Home Medications allopurinol 200 mg tablet 300 mg PO QDAY 06/22/24 atorvastatin 40 mg tablet 10 mg PO QDAY 06/22/24 glimepiride 2 mg tablet 6 mg PO QAM 06/22/24 lisinopril 10 mg tablet 5 mg PO QDAY 06/22/24 metformin 500 mg tablet 500 mg PO QDAY 06/22/24 metoprolol tartrate 50 mg tablet 25 mg PO QDAY 06/22/24 rivaroxaban 10 mg tablet (Xarelto) 10 mg PO QDAY 06/22/24 amoxicillin 875 mg-potassium clavulanate 125 mg tablet 1 tab PO BID #72 tabs 11/03/24 ciprofloxacin HCl 500 mg tablet (Cipro) 500 mg PO BID #70 tabs 11/03/24 L.acidophil,salivari-Bifido bifidum-Strep thermoph 175 mg capsule 1 cap PO 2XD #0 caps 11/04/24 insulin lispro 100 unit/mL subcutaneous pen (Humalog KwikPen (U-100) Insulin) See Protocol subcut ACHS #0 mL 11/04/24 sennosides 8.6 mg-docusate sodium 50 mg tablet (Stimulant Laxative Plus) 2 tab PO BID #0 tabs 11/04/24 11/04/24 1507 <Electronically signed by Giancarlo Dow> Date _ Giancarlo Robert Signature (if applicable): Date CC: ~ Signed [facility] Work Phone: Discharge summary Author Wes Arellano [facility] Note Date/Time November 04, 2024 2:36pm [facility] Medical Records Department [address] [place] [address] Transfer to [facility] MR#: [id number] Acct: [id number] Name: JEFFERSON CARCAMO Rep #:[id number] : 1960 64 From: Wes Brunner PCP: Dr. Mayco Fenton MD Status:ADM I N Certification of patient admission REQUIRED AT TIME OF ADMISSION. I CERTIFY THAT [facility] SERVICES ARE REQUIRED TO BE GIVEN ON AN IN-PATIENT BASIS BECAUSE OF THE ABOVE NAMED PATIENT'S NEED FOR LONG-TERM CARE ON A CONTINUING BASIS FOR THE CONDITION(S) FOR WHICH HE/SHE WAS RECEIVING IN-PATIENT HOSPITAL SERVICES PRIOR TO HIS/HER TRANSFER TO THE [facility]. 11/04/24 1436<Electronically signed by Wes Arellano MD> Diet Diet Order/Speech Therapy: INPATIENT Hospital Diet / Speech Therapy Order(s) 10/29/24 23:49 Diet: Carbohydrate Controlled Food consistency:: Regular Liquid Consistency:: Regular/Thin Type of Dietary Supplement:: Car Diet Comments: orange car with breakfast and dinner; 240ml cho glucerna shake with lunch Routine Orders/Code Status Suppository Type: Dulcolax 10mg Suppository Frequency: Daily PRN Routine Lab Work: CBC and BMP (CBC and BMP every week while patient is on antibiotic and fax to ID Dr. De La Cruz) DC O2, CPAP, BIPAP needs Home O2 Discharge instructions: No Wound(s) left little toe: Wound Type: Neuropathic/Diabetic Foot Ulcer left plantar foot: Wound Type: Neuropathic/Diabetic Foot Ulcer right foot: Wound Type: Neuropathic/Diabetic Foot Ulcer LT FOOT: Wound Type: Neuropathic/Diabetic Foot Ulcer Dressing Change: KCI wound VAC right 2nd toe: Wound Type: Neuropathic/Diabetic Foot Ulcer Dressing Change: betadine with dry dressing right plantar foot: Wound Type: Neuropathic/Diabetic Foot Ulcer Dressing Change: betadine Adaptic Therapies Extremity Affected:: Bilateral Lower Physical Therapy: Eval and Treat Occupational Therapy: Eval and Treat Speech Therapy: Eval and Treat Problem/Diagnosis (1) Sepsis: Status: Acute Code(s): A41.9 - Sepsis, unspecified organism (2) Acute osteomyelitis of left foot: Status: Acute Code(s): M86.172 - Other acute osteomyelitis, left ankle and foot (3) Diabetic infection of left foot: Status: Acute Code(s): E11.628 - Type 2 diabetes mellitus with other skin complications; L08.9 - Local infection of the skin and subcutaneous tissue, unspecified Plan 64-year-old gentleman was admitted with high fever 103.7 Fahrenheit, drainage from the little toe of left foot with no sensation. X-ray of the foot shows subcutaneous air and destruction of proximal phalanx of the little toe/probably head of the fifth metatarsal. 1. Left foot osteomyelitis and diabetic foot ulcer status postdebridement: Patient initially admitted in ICU and then transferred to [facility] floor. Patient has left fifth toe and fifth metatarsal osteomyelitis, gas gangrene as per operative note. Debridement of ulceration down including bone on 10/29/2024 Does not meet criteria for sepsis at the time of admission. Started on broad-spectrum antibiotic IV vancomycin and Zosyn. Prelim wound culture growing Staph aureus. ID consulted for tomorrow. Continue nonweightbearing on his left lower extremity and given the multiple ulcers he has on his right foot he is heel weightbearing on the right 11/01: Wound culture growing Proteus mirabilis and Staph aureus. 1+ GPC, GNR 1+ beta-hemolytic organism 3+. 11/02: Multiple organisms growing. Wound culture positive for GNR x 2, Proteus, strep and staph aureus so far. Wound culture on 10/06 shows a small NAD, GBS, corynebacterium and staph epi lactulose. Recommended to continue Vanco and Zosyn. ID planning for p.o. antibiotics at discharge for possible 6 weeks 11/03: Wound culture growing Morganella, Proteus, GB strep, strep group G, MSSA and anaerobes. He wrote prescription for Cipro and Augmentin at time of discharge for 6 weeks, stop date 12/10/2024. Recommended lab next week, CBC andCMP on Friday. Counseled on the potential side effects, QTc less than 450 ms here. ID follow-up in 2 weeks. 2. Complicated DM type II with diabetic polyneuropathy: Glucose 86. Glucocheckalso between 70-99. Avoid hypoglycemia. On hypoglycemia protocol. Hold metformin 3. Essential hypertension and dyslipidemia ?Blood pressure 142/80. Controlled. Lisinopril and metoprolol resumed. ? Continue to monitor 11/03 blood pressure on lower side 93/54. Elderly after acute antihypertensive medication. 4. Chronic DVT/PE Xarelto resumed 5. Gout ? Continue with allopurinol 6. Chronic increased urinary frequency and elevated PSA: Was supposed to follow- up with urologist Dr. Amos today. At the request of his , urologist consulted. DVT: SCDs Allergies/Procedures Done in Hospital Allergies No Known Allergies Allergy (Verified 10/29/24 16:39) Type of Care/Length of Stay Estimated LOS: Convalescent Care Less Than 30 days Type of Care Needed: Skilled Rehab Potential: Good Prognosis: Good Additional Orders/Day of Discharge Day of Discharge: 11/04/24 Dietary and Speech Recommendations Dietitian Recommendations/Changes: Continue CCD to manage medical conditions. Continue orange car with breakfast and dinner to promote wound healing. Will order 240ml chocolate glucerna shake with lunch. Will monitor weight trends. Discharge Plan Admission Admit Date/Time: 10/29/24 19:49 Attending Provider: Wes Arellano Primary Care Provider: Mayco Fenton Consulting Providers: Ruslan Adams; Javy Lynch; Delbert Mak; Marco De La Cruz; Steve Amos; Teressa Davey Discharge Orders/Prescriptions Prescriptions: New ciprofloxacin HCl [Cipro] 500 mg tablet 500 mg PO BID Qty: 70 0RF amoxicillin-pot clavulanate 875-125 mg tablet 1 tab PO BID Qty: 72 0RF sennosides-docusate sodium [Stimulant Laxative Plus] 8.6-50 mg Tablet 2 tab PO BID Qty: 0 0RF insulin lispro [Humalog KwikPen Insulin] 100 unit/mL Insulin Pen See Protocol subcut ACHS Qty: 0 0RF Protocol: 1. Sliding Scale Insulin Low Dosing Condition: 150-224 mg/dl = 1 unit Condition: 225-299 mg/dl = 2 units Condition: 300-374 mg/dl = 3 units Condition: 375-449 mg/dl = 4 units Condition: Greater than 449 call physician Protocol Text: Suggested for: - Patients on Total Daily Insulin Dose of 15-27 units - Thin, elderly, renal patients LOW DOSING ALGORITHM Serinaacidoph,saliva-B.bif-S.therm 175 mg Capsule 1 cap PO 2XD Qty: 0 0RF Rx Instructions: While patient is taking antibiotic Continued Xarelto 10 mg tablet 10 mg PO QDAY Rx Instructions: for 35 days metformin 500 mg tablet 500 mg PO QDAY glimepiride 2 mg tablet 6 mg PO QAM Rx Instructions: administer with breakfast allopurinol 200 mg tablet 300 mg PO QDAY metoprolol tartrate 50 mg tablet 25 mg PO QDAY atorvastatin 40 mg tablet 10 mg PO QDAY lisinopril 10 mg tablet 5 mg PO QDAY Referrals / Follow Up: Mayco Fenton MD [Primary Care Provider, Family Practice] - Within 2 Weeks Marco De La Cruz MD [Med Staff - Active Staff, Infectious Disease] - Within 2 Weeks Javy Lynch DPM [Med Staff - Active Staff, Podiatry] - Within 1 Week Teressa Davey PA [Med Staff - Adv Practice Prof, Vascular Surgery] - Within 1 Month Referral Note: Follow-up in 2 to 4 weeks with vascular surgery Disposition Disposition (needs filled in before D/C Order can be placed): Assisted Facility (1) Sepsis Qualifiers: Sepsis type: sepsis due to unspecified organism Sepsis acute organ dysfunction status: without acute organ dysfunction Qualified Code(s): A41.9 - Sepsis, unspecified organism 11/04/246 <Electronically signed by Wes Arellano MD> Cosigner Signature (if applicable): CC: DPM Dr. Javy Lynch; JANAY Torres; Dr. Ruslan Adams DO; Dr. Steve Amos MD; Dr. Delbert Mak MD; Dr. Mayco Fenton MD; Dr. Marco De La Cruz MD ~ [facility] Work Phone: Discharge summary Author Wes Arellano [facility] Note Date/Time November 04, 2024 2:39pm [facility] Medical Records Department [address] [place] [address] Discharge Summary 11/04/24 1437 MR#: [id number] Acct: [id number] Name: JEFFERSON CARCAMO Rep #:[id number] : 1960 64 From: Wes Brunner PCP: Dr. Mayco Fenton MD Status:ADM I N Location: [place] [address] Providers Date of Admission: 10/29/24 Date of Discharge: 11/04/24 Primary Care Physician: Dr. Mayco Fenton MD Consultations 10/30/24 12:07 Consult: Podiatry Routine Consulting Provider: Javy Lynch Reason for Consult: Left foot osteomyelitis EMERGENT Consult: No Notified: Yes Date Notified: 10/30/24 Time Notified: 12:07 Method of Notification: Verbal 10/31/24 07:32 Consult: Infectious Disease Routine Consulting Provider: Marco De La Cruz Reason for Consult: Left foot Osteo. 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 Routine Comment: Reason for Consult:: left foot 11/02/24 10:11 Consult: Urology Routine Consulting Provider: Steve Amos Reason for Consult: elevated PSA, Inc frequency, BPH EMERGENT Consult: No Notified: Yes Date Notified: 11/02/24 Time Notified: 10:11 Method of Notification: Verbal 11/02/24 14:08 Consult: Vascular Surgery Routine Consulting Provider: Teressa Davey Reason for Consult: PAD lower extremity EMERGENT Consult: No MD Notified: Yes Date Notified: 11/02/24 Time Notified: 14:08 Method of Notification: Answering Service Reason For Visit: SEPSIS 2/2 LEFT DFU Diagnosis Discharge Diagnosis (1) Sepsis: Status: Acute Code(s): A41.9 - Sepsis, unspecified organism Qualifiers: Sepsis type: sepsis due to unspecified organism Sepsis acute organ dysfunction status: without acute organ dysfunction Qualified Code(s): A41.9 - Sepsis, unspecified organism (2) Acute osteomyelitis of left foot: Status: Acute Code(s): M86.172 - Other acute osteomyelitis, left ankle and foot (3) Diabetic infection of left foot: Status: Acute Code(s): E11.628 - Type 2 diabetes mellitus with other skin complications; L08.9 - Local infection of the skin and subcutaneous tissue, unspecified Plan 64-year-old gentleman was admitted with high fever 103.7 Fahrenheit, drainage from the little toe of left foot with no sensation. X-ray of the foot shows subcutaneous air and destruction of proximal phalanx of the little toe/probably head of the fifth metatarsal. 1. Left foot osteomyelitis and diabetic foot ulcer status postdebridement: Patient initially admitted in ICU and then transferred to [facility]. Patient has left fifth toe and fifth metatarsal osteomyelitis, gas gangrene as per operative note. Debridement of ulceration down including bone on 10/29/2024 Does not meet criteria for sepsis at the time of admission. Started on broad-spectrum antibiotic IV vancomycin and Zosyn. Prelim wound culture growing Staph aureus. ID consulted for tomorrow. Continue nonweightbearing on his left lower extremity and given the multiple ulcers he has on his right foot he is heel weightbearing on the right 11/01: Wound culture growing Proteus mirabilis and Staph aureus. 1+ GPC, GNR 1+ beta-hemolytic organism 3+. 11/02: Multiple organisms growing. Wound culture positive for GNR x 2, Proteus, strep and staph aureus so far. Wound culture on 10/06 shows a small NAD, GBS, corynebacterium and staph epi lactulose. Recommended to continue Vanco and Zosyn. ID planning for p.o. antibiotics at discharge for possible 6 weeks 11/03: Wound culture growing Morganella, Proteus, GB strep, strep group G, MSSA and anaerobes. He wrote prescription for Cipro and Augmentin at time of discharge for 6 weeks, stop date 12/10/2024. Recommended lab next week, CBC andCMP on Friday. Counseled on the potential side effects, QTc less than 450 ms here. ID follow-up in 2 weeks. 11/04: Patient approved for [facility]. Discharged on the above antibiotic. Follow-up ID as mentioned above. Follow-up with podiatry and vascular surgery. 2. Complicated DM type II with diabetic polyneuropathy: Glucose 86. Glucocheckalso between 70-99. Avoid hypoglycemia. On hypoglycemia protocol. Hold metformin 11/04: Continue Accu-Cheks. Metformin resumed 3. Essential hypertension and dyslipidemia ?Blood pressure 142/80. Controlled. Lisinopril and metoprolol resumed. ? Continue to monitor 11/03 blood pressure on lower side 93/54. Elderly after acute antihypertensive medication. 11/04: Blood pressure is controlled. On lisinopril 5 mg daily. 4. Chronic DVT/PE Xarelto resumed 5. Gout ? Continue with allopurinol 6. Chronic increased urinary frequency and elevated PSA: Was supposed to follow- up with urologist Dr. Amos today. At the request of his , urologist consulted. DVT: SCDs Discharge medication reconciliation done. Discharge follow-up instructions completed. Discharge process discussed with the patient and all questions wereanswered to patient's satisfaction. Follow with PCP in 1 to 2 weeks Total time spent, exact 35 minutes on discharge meds reconciliation, examination, coordination of care with nurses and ancillary staff, review of imaging and blood test and discussion with the patient on follow-up instructions. Medications at Discharge Home Medications allopurinol 200 mg tablet 300 mg PO QDAY 06/22/24 atorvastatin 40 mg tablet 10 mg PO QDAY 06/22/24 glimepiride 2 mg tablet 6 mg PO QAM 06/22/24 lisinopril 10 mg tablet 5 mg PO QDAY 06/22/24 metformin 500 mg tablet 500 mg PO QDAY 06/22/24 metoprolol tartrate 50 mg tablet 25 mg PO QDAY 06/22/24 rivaroxaban 10 mg tablet (Xarelto) 10 mg PO QDAY 06/22/24 amoxicillin 875 mg-potassium clavulanate 125 mg tablet 1 tab PO BID #72 tabs 11/03/24 ciprofloxacin HCl 500 mg tablet (Cipro) 500 mg PO BID #70 tabs 11/03/24 L.acidophil,salivari-Bifido bifidum-Strep thermoph 175 mg capsule 1 cap PO 2XD #0 caps 11/04/24 insulin lispro 100 unit/mL subcutaneous pen (Humalog KwikPen (U-100) Insulin) See Protocol subcut ACHS #0 mL 11/04/24 sennosides 8.6 mg-docusate sodium 50 mg tablet (Stimulant Laxative Plus) 2 tab PO BID #0 tabs 11/04/24 Physical Exam Narrative Seen and examined. No acute issues. Bilateral lower leg/feet ulcer left worse than right. Right superficial ulcer over lateral toes/lateral margin of forefoot. History of diabetes mellitus for many years, complicated with diabetic neuropathy. Physical exam General: Alert, Oriented x3, Cooperative. Obesity grade 1, BMI 32.1 kg/m? HEENT: Atraumatic, PERRLA, EOMI, Normocephalic. Oral: No Gingival or Mucosal Lesions/ Ulcerations Neck: Supple, No JVD, Negative Carotid Bruits Chest wall/Lungs: Air entry diminished in bilateral lung bases. No crepitation/rhonchi Cardiovascular: Regular rate and rhythm, Normal S1,S2, No M/G/R Abdomen: Bowel Sounds Present, Soft, Non Tender, Non-Distended : No dysuria. No renal angle tenderness. No suprapubic tenderness. Extremities: No edema, Capillary Refill Less than 3 Seconds Skin: Ulcer over left and right feet covered with a dressing. Left foot with Rachel wrap bandage. Dressing is dry Musculoskeletal: No Tenderness to Palpation of Joints or Extremities Neurological: Cranial nerves II-XII grossly intact, DTR 2+/4. Neuropathy. Psych/Mental Status: Flat affect. Weight / BMI Weight Weight: 210 lb 1.608 oz Body Mass Index (BMI) 30.0 ABG / Lab / Microbiology Data 11/01/24 05:30 11/04/24 05:18 Laboratory: Laboratory Results - last 24 hr 11/03/24 16:12: POC Glucose 268 H 11/03/24 21:32: POC Glucose 124 H 11/04/24 05:18: Sodium 137, Potassium 3.8, Chloride 101, Carbon Dioxide 23.9, Anion Gap 12, BUN 17, Creatinine 1.02, Estim Creat Clear Calc 87.01, Est GFR (MDRD) Non-Af 83, BUN/Creatinine Ratio 16.5, Glucose 151 H, Calcium 8.9 11/04/24 06:23: POC Glucose 162 H 11/04/24 12:23: POC Glucose 189 H Microbiology: Microbiology 10/29/24 20:15 Wound - Left Foot Gram Stain - Final 10/29/24 20:15 Wound - Left Foot Wound Culture - Final Streptococcus agalactiae (B) Proteus mirabilis Morganella morganii sp morgani 10/29/24 20:15 Wound - Left Foot Anaerobic Culture - Final Anaerobic cocci Bacteroides fragilis 10/29/24 20:15 Wound - Left Foot Gram Stain - Final 10/29/24 20:15 Wound - Left Foot Wound Culture - Final Streptococcus group G Strep anginosus 10/29/24 20:15 Wound - Left Foot Anaerobic Culture - Final Bacteroides fragilis 10/29/24 17:35 Blood Culture (Wb) - Anticubital Left Blood Culture - Final No growth in 5 days. 10/29/24 18:20 Blood Culture (Wb) - Anticubital Left Blood Culture - Final No growth in 5 days. 10/29/24 20:15 Wound - Right Foot Gram Stain - Final 10/29/24 20:15 Wound - Right Foot Wound Culture - Final Staphylococcus aureus Streptococcus group G 10/29/24 20:15 Wound - Right Foot Anaerobic Culture - Final No anaerobic bacteria isolated. 10/29/24 17:45 Wound - Toe Gram Stain - Final 10/29/24 17:45 Wound - Toe Wound Culture - Final Proteus mirabilis Streptococcus group G Streptococcus group B 10/29/24 17:45 Wound - Left Foot Gram Stain - Final 10/29/24 17:45 Wound - Left Foot Wound Culture - Final Proteus mirabilis Streptococcus group G Gram positive lea 10/30/24 17:05 Blood Culture (Wb) - Left Hand Blood Culture - Preliminary No growth in 48 hours. 10/30/24 19:00 Blood Culture (Wb) - Right Wrist Blood Culture - Preliminary No growth in 48 hours. 10/29/24 18:20 Urine, Clean Catch Urine Culture - Final Mixed Gram Positive Organisms D/C Instructions DC O2, CPAP, BIPAP Needs Home O2 Discharge instructions: No Meaningful Use Info Meaningful Use Meaningful Use Diagnoses (Choose all that apply): None applicable Discharge Plan Admission Admit Date/Time: 10/29/24 19:49 Attending Provider: Wes Arellano Primary Care Provider: Mayco Fenton Consulting Providers: Ruslan Adams; Javy Lynch; Delbert Mak; Marco De La Cruz; Steve Amos; Teressa Davey Discharge Orders/Prescriptions Prescriptions: New ciprofloxacin HCl [Cipro] 500 mg tablet 500 mg PO BID Qty: 70 0RF amoxicillin-pot clavulanate 875-125 mg tablet 1 tab PO BID Qty: 72 0RF sennosides-docusate sodium [Stimulant Laxative Plus] 8.6-50 mg Tablet 2 tab PO BID Qty: 0 0RF insulin lispro [Humalog KwikPen Insulin] 100 unit/mL Insulin Pen See Protocol subcut ACHS Qty: 0 0RF Protocol: 1. Sliding Scale Insulin Low Dosing Condition: 150-224 mg/dl = 1 unit Condition: 225-299 mg/dl = 2 units Condition: 300-374 mg/dl = 3 units Condition: 375-449 mg/dl = 4 units Condition: Greater than 449 call physician Protocol Text: Suggested for: - Patients on Total Daily Insulin Dose of 15-27 units - Thin, elderly, renal patients LOW DOSING ALGORITHM L.acidoph,saliva-B.bif-S.therm 175 mg Capsule 1 cap PO 2XD Qty: 0 0RF Rx Instructions: While patient is taking antibiotic Continued Xarelto 10 mg tablet 10 mg PO QDAY Rx Instructions: for 35 days metformin 500 mg tablet 500 mg PO QDAY glimepiride 2 mg tablet 6 mg PO QAM Rx Instructions: administer with breakfast allopurinol 200 mg tablet 300 mg PO QDAY metoprolol tartrate 50 mg tablet 25 mg PO QDAY atorvastatin 40 mg tablet 10 mg PO QDAY lisinopril 10 mg tablet 5 mg PO QDAY Referrals / Follow Up: Javy Lynch DPM [Med Staff - Active Staff, Podiatry] - Within 1 Week Mayco Fenton MD [Primary Care Provider, Family Practice] - Within 2 Weeks Marco De La Cruz MD [Med Staff - Active Staff, Infectious Disease] - Within 2 Weeks Teressa Davey PA [Med Staff - Adv Practice Prof, Vascular Surgery] - Within 1 Month Referral Note: Follow-up in 2 to 4 weeks with vascular surgery Steve Amos MD [Med Staff - Active Staff, Urology] - Within 1 Month Referral Note: For increased frequency and elevated PSA Disposition Disposition (needs filled in before D/C Order can be placed): Assisted Facility Charges/Coding Visit Charges Inpatient E&M: 33247 Disch Hosp >30min 11/04/24 1439 <Electronically signed by Wes Arellano MD> Cosigner Signature (if applicable): CC: DPM Dr. Javy Lynch; JANAY Torres; Dr. Steve Amos MD; Dr.Paul Eliceo MD; Dr. Wes Arellano MD; Dr. Marco De La Cruz MD~ Signed [facility] Work Phone: Evaluation note* Diagnosis Ankylosing spondylitis of thoracolumbar region (CMS/HCC)- Primary Benign essential hypertension Essential hypertension, benign Asymptomatic hyperuricemia Type 2 diabetes mellitus with other specified complication, without long-term current use of insulin ([facility]) Hyperlipidemia, unspecified hyperlipidemia type documented in this encounter [facility] Work Phone: Evaluation note* Diagnosis Type 2 diabetes mellitus with diabetic polyneuropathy, without long-term current use of insulin ([facility])- Primary Ankylosing spondylitis of thoracolumbar region ([facility]/HCC) Benign essential hypertension Essential hypertension, benign Asymptomatic hyperuricemia Thyroid disorder screening Screening for thyroid disorder Neuropathy Mononeuritis of unspecified site documented in this encounter [facility] Work Phone: Evaluation note* Diagnosis Type 2 diabetes mellitus with stage 3b chronic kidney disease, without long-term current use of insulin ([facility])- Primary Neck pain on left side Benign essential hypertension Essential hypertension, benign documented in this encounter [facility] Work Phone: Evaluation note* Diagnosis Type 2 diabetes mellitus with stage 3b chronic kidney disease, without long-term current use of insulin (CMS/HCC)- Primary Ankylosing spondylitis of thoracolumbar region (CMS/HCC) documented in this encounter [facility] Work Phone: [phone] note* Diagnosis Multinodular goiter Nontoxic multinodular goiter documented in this encounter [facility] Work Phone: [phone] note* Diagnosis Nephrolithiasis Calculus of kidney documented in this encounter [facility] Work Phone: [phone] note* Diagnosis Thyroid nodule Nontoxic uninodular goiter documented in this encounter [facility] Work Phone: [phone] note* Diagnosis Type 2 diabetes mellitus with [...] Nontoxic multinodular goiter documented in this encounter [facility] Work Phone: [phone] note* Diagnosis Nephrolithiasis- Primary Calculus of kidney documented in this encounter [facility] Work Phone: [phone] note* Diagnosis Type 2 diabetes mellitus with stage 3b chronic kidney disease, without long-term current use of insulin (Multi)- Primary Benign essential hypertension Essential hypertension, benign Stage 3b chronic kidney disease (Multi) Mixed hyperlipidemia Hyperuricemia Other abnormal blood chemistry Nephrolithiasis Calculus of kidney documented in this encounter [facility] Work Phone: [phone] note* Diagnosis Nephrolithiasis- Primary Calculus of kidney Benign essential hypertension Essential hypertension, benign Stage 3b chronic kidney disease (Multi) Type 2 diabetes mellitus with stage 3b chronic kidney disease, without long-term current use of insulin (Multi) Left eye pain documented in this encounter [facility] Work Phone: [phone] note* Diagnosis Thyroid nodule Nontoxic uninodular goiter documented in this encounter [facility] Work Phone: Evaluation note* Diagnosis Nephrolithiasis Calculus of kidney documented in this encounter [facility] Work Phone: [phone] note* Diagnosis Viral upper respiratory illness- Primary Viral upper respiratory illness documented in this encounter [facility] Work Phone: Evaluation note* Diagnosis Thyroid nodule- Primary Nontoxic uninodular goiter documented in this encounter [facility] Work Phone: [phone] note* Diagnosis Benign essential hypertension- Primary Essential hypertension, benign Type 2 diabetes mellitus with stage 3b chronic kidney disease, without long-term current use of insulin (Multi) Hyperuricemia Other abnormal blood chemistry Nephrolithiasis Calculus of kidney Thyroid nodule Nontoxic uninodular goiter documented in this encounter [facility] Work Phone: Evaluation note* Diagnosis Neuropathy- Primary Mononeuritis of unspecified site Hypomagnesemia Disorders of magnesium metabolism documented in this encounter [facility] Work Phone: Evaluation note* Diagnosis Neuropathy- Primary [...] neoplasm of prostate documented in this encounter [facility] Work Phone: Evaluation note* 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, without mention of having achieved remission Ankylosing spondylitis of thoracolumbar region (Multi) Recurrent acute deep vein thrombosis (DVT) of both lower extremities Type 2 diabetes mellitus without complication, without long-term current use of insulin Benign essential hypertension Essential hypertension, benign Mixed hyperlipidemia documented in this encounter [facility] Work Phone: Evaluation note* Diagnosis Onset Date Resolution Status Admit Date Acute osteomyelitis of left foot acute October 29, 2024 7:35pm Cellulitis of left lower limb acute Aud[place] 12th, 2025 7:35pm Diabetes mellitus with diabetic polyneuropathy acute Septembe r 2024 7:35pm Diabetic infection of left foot acute October 29, 2024 7:35pm Gangrene, not elsewhere classified acute October 29, 2024 7:35pm Sepsis acute October 7:35pm Sinus tachycardia acute Sept2024 7:35pm Subcutaneous air acute Septembe r 2024 7:35pm Type 2 diabetes mellitus wit h foot ulcer acute October 29, 2024 7:35pm Hypertension chronic October 292024 7:35pm [facility] Work Phone: History of Present illness Narrative* See previous lab work with lipid profile comp meta PSA. * 1. Diabetes mellitus 2. Hemochromatosis 3. Hypertension 4. Right shoulder pain see below 5. Ankylosing spondylitis 6. Lower back pain * Patient in the when he had his lower back surgery done over at [facility]. They did not know he had ankylosing [...] he was pushing upwhen he felt something stand grinder snapped in his right shoulder since then if he does not do that typeof maneuver it does not bother him as much. Has never gone back to normal any overhand motion or pushing forward type of motion exacerbates it he is right- hand dominant. He was just seen by senior risk analyst who is pleased that the leukemia has [...] biceps triceps within normal limits. Lungs good auscultation heart normal S1-S2 without murmur [...] control with above check labs with abovewith cafe server 5. Leukemia stable excellent 6. Hemochromatosis control multifactorial with above 7. Diabetes mellitus controlled moderately per above patient knows what he can do better with diet insight etc. we will follow-up around May. We will get a PSA test in early May and follow-up post that all questions concerns addressed. [facility] DO Work Phone: History of Present [...] time just to get out of bed. [place] of 2020 he had the worst flareup [...] no bowel or bladder complaints at this visit.-[facility] Work Phone: History of Present illness [...] metoprolol. He is followed by multiple specialists. -[facility] Work Phone: History of Present illness NarrativeHe [...] include metoprolol atorvastatin lisinopril hydrochlorothiazide Xarelto and allopurinol.-[facility] Work Phone: History of Present illness NarrativeHe [...] episodes. Other medications include lisinopril/hydrochlorothiazide, allopurinol, and atorvastatin.[employer] Work Phone: Instructions* Name Dates Details Instructions not documented [id number] Work Phone: Reason for referral (narrative)* Consultation (Routine) - Authorized Specialty Diagnoses / Procedures Referred By Ralph t Referred To Contact Endocrinology Diagnoses Type 2 diabetes mellitus with stage 3b chronic kidney disease, without long-term current use of insulin ([facility]) [place] [address] [place] [address] [place] [address] [address] Referral ID Status Reason Start Date Expiration Date Visits Requested Visits Authorized [id number] Authorized Specialty Services Required 03/25/2023 03/24/2024 1 1 [facility] Work Phone: reason for referral (narrative)* Consultation (Routine) - Authorized Specialty Diagnoses / Procedures Referred By Contac t Referred To Contact Urology Diagnoses Nephrolithiasis Theron Ribera PA-C [address] [employer] Department of Emergency Medicine [place] [phone] Referral ID Status Reason Start Date Expiration Date Visits Requested Visits Authorized [id number] Authorized Specialty Services Required 10/27/2023 10/26/2024 1 1 [facility] Work Phone: Requmd for referral (narrative)No reason for referral information [facility] Work Phone: Reason for visit Narrative* Consultation (Routine) - Authorized Specialty Diagnoses / Procedures Referred By Contac t Referred To Contact Urology Diagnoses Nephrolithiasis Theron Ribera PA-C [address] [employer] Department [place] [address] Phone: tel: fax: Referral ID Status Reason Start Date Expiration Date Visits Requested Visits Authorized [id number] Authorized Specialty Services Required 10/27/2023 10/26/2024 1 1 [facility] Work Phone: reason for visit Narrative* Imaging (Routine) - Authorized Specialty Diagnoses / Procedures Referred By Contac t Referred To Contact Radiology Diagnoses Thyroid nodule [place] [address] [address] Department [place] [address] Phone: tel: fax: Referral ID Status Reason Start Date Expiration Date Visits Requested Visits Authorized [id number] Authorized Perform Procedure 11/12/2023 11/11/2024 1 1 [facility] Work Phone: Summary Purpose Family History No [...] Communication Kalia Lyle Sibling Health Care Agent -[phone] (Home) Advance Directive Response Recorded Date/ Time Do you have a Healthcare Power of Head Automatic Sawyer? No October 29, 2024 5:28pm Advance Directive Response Recorded Date/ Time Do you have a Healthcare Power of Head Automatic Sawyer? 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[employer] chronic low back pain, xrays today * [...] goiter [place] [address] [place] [address] Referral ID Status Reason Start Date Expiration Date Visits Requested Visits Authorized [id number] Authorized Perform Procedure 07/23/2023 07/22/2024 1 1 Specialty Diagnoses / Procedures Referred By Contac t Referred To Contact Radiology Diagnoses Nephrolithiasis Procedures XR abdomen [place] [address] [place] [phone] Referral ID Status Reason Start Date Expiration Date Visits Requested Visits Authorized [id number] Authorized Perform Procedure 11/11/2023 11/10/2024 1 1 Specialty Diagnoses / Procedures Referred By Contac t Referred To Contact Radiology Diagnoses Thyroid nodule [place] [address] [address] Department [place] [address] Referral ID Status Reason Start Date Expiration Date Visits Requested Visits Authorized [id number] Authorized Perform Procedure 11/12/2023 11/11/2024 1 1 Chief Complaint and Reason for Visit Chief Complaint Admit Date PE NON DOT PHYSICAL/ POLA BRUSH June 222024 4:16pm PE NON DOT DRUG SCREEN, BAT/ POLA BRU June 22, 2024 4:18pm Reason for Visit Admit Date Physical exam, pre-employment June 22, 2 025 4:16pm Chief Complaint Admit Date PE NON DOT PHYSICAL/ POLA BRUSH June 222024 4:16pm PE NON DOT DRUG SCREEN, BAT/ POLA BRU June 22, 2024 4:18pm [facility] September 22, 2024 5:5 1pm Chief Complaint Admit Date [facility] September 22, 2024 5:5 1pm Reason for Visit Admit Date Acute osteomyelitis of left foot [facility] 2024 7:35pm Cellulitis of left lower limb October 29, 2024 7:35pm Diabetes mellitus with diabetic polyneur opathy October 29, 2024 7:35pm Diabetic infection of left [facility] 7:35[facility] Gangrene, not elsewhere classified [facility] 2024 7:35pm Sepsis October 29, 2024 7:35pm Sinus tachycardia October 29, 2024 7:35pm Subcutaneous air October 29, 2024 7:35pm Type 2 diabetes mellitus with foot ulcer October 29, 2024 7:35pm Hypertension October 29, 2024 7:35pm Chief Complaint Admit Date [facility] September 22, 2024 5:5 1pm SEPSIS 2/2 LEFT DFU October 29, 2024 7:49pm SEPSIS 2/2 LEFT DFU October 30, 2024 10:33am SEPSIS 2/2 LEFT DFU October 31, 2024 11:15am SEPSIS 2/2 LEFT DFU November 01, 2024 9:24am SEPSIS 2/2 LEFT DFU November 02, 2024 1:10pm SEPSIS 2/2 LEFT DFU November 03, 2024 7:08am SEPSIS 2/2 LEFT DFU November 03, 2024 2:23pm SEPSIS 2/2 LEFT DFU November 04, 2024 2:28pm [facility] November 08, 2024 5:00am Reason for Visit Admit Date Acute osteomyelitis of left foot [facility] 2024 7:49pm Chronic anticoagulation October 29, 2024 7:49pm Diabetes mellitus with diabetic polyneur opathy October 29, 2024 7:49pm Diabetic infection of left foot Septembe r 2024 7:49pm Gangrene, not elsewhere classified Septe mber 2024 7:49pm Obesity (BMI 30.0-34.9) October 29, 2024 7:49pm Sepsis October 29, 2024 7:49pm Subcutaneous air October 29, 2024 7:49pm Type 2 diabetes mellitus with foot ulcer October 29, 2024 7:49pm Hypertension October 29, 2024 7:49pm Cellulitis of left lower limb October 29, 2024 7:49pm Sinus tachycardia October 29, 2024 7:49pm History of venous thromboembolism Septem sintia 2024 7:49pm PAD (peripheral artery disease) Septembe r 2024 7:49pm Additional Source Comments (unrecognized sect ion and [...] DATE CREATED AUTHOR AUTHOR'S ORGANIZ ATION 07/22/2018 [facility] DATE CREATED AUTHOR AUTHOR'S ORGANIZ ATION 05/09/2020 [facility] DATE CREATED AUTHOR AUTHOR'S ORGANIZ ATION 04/29/2021 [facility] DATE CREATED AUTHOR AUTHOR'S ORGANIZ ATION 12/27/2021 [facility] DATE CREATED AUTHOR AUTHOR'S ORGANIZ ATION 09/21/2022 [facility] DATE CREATED AUTHOR AUTHOR'S ORGANIZ ATION 02/07/2023 [facility] DATE CREATED AUTHOR AUTHOR'S ORGANIZ ATION 02/16/2024 [facility] DATE CREATED AUTHOR AUTHOR'S ORGANIZ ATION 04/15/2024 [facility] DATE CREATED AUTHOR AUTHOR'S ORGANIZ ATION 09/21/2024 [facility] DATE CREATED AUTHOR AUTHOR'S ORGANIZ ATION 10/03/2024 [facility] DATE CREATED AUTHOR AUTHOR'S ORGANIZ ATION 11/03/2024 [facility] DATE CREATED AUTHOR AUTHOR'S ORGANIZ ATION 11/29/2024 [facility] Reason for Visit (unrecogniz ed section and content) Reason Comments Annual Exam Reason Comments Establish Care Reason Comments Results Reason Comments Follow-up Ozempic Needs pen ne edles if continuing Specialty Diagnoses / Procedures Referred By Contac t Referred To Contact Radiology Diagnoses Multinodular goiter [place] [address] [place] [address] Referral ID Status Reason Start Date Expiration Date Visits Requested Visits Authorized [id number] Authorized Perform Procedure 07/23/2023 07/22/2024 1 1 Reason Comments Follow-up 3 month Reason Comments Flank Pain PT WITH RIGHT FLANK PAIN SINCE 629. +NAUSEA/VOMITING. Reason Comments Follow-up 3 month Reason Comments Follow-up Follow up on BP Reason Comments thyroid nodules Specialty Diagnoses / Procedures Referred By Contac t Referred To Contact Otolaryngology Diagnoses [place] [address] [place] [address] Goyo Snider MD [address] [place] [address] Referral ID Status Reason Start Date Expiration Date Visits Requested Visits Authorized [id number] Authorized Specialty Services Required 08/04/2023 08/03/2024 1 1 Specialty Diagnoses / Procedures Referred By Contac t Referred To Contact Radiology Diagnoses Nephrolithiasis Procedures XR abdomen [place] [address] [place] [id number] Referral ID Status Reason Start Date Expiration Date Visits Requested Visits Authorized [id number] Authorized Perform Procedure 11/11/2023 11/10/2024 1 1 [...] Care Teams (unrecognized sec tion and content) Discharging Machine Operator Relationship Specialty [place] [address] [place] [address] PCP - [facility] PCP 02/17/21 [place] [address] [place] [address] PCP - General Internal Medicine 12/23/22 Discharging Machine Operator Relationship Specialty [place] [address] [place] [address] PCP - [facility] PCP 02/17/21 [place] [address] [place] [address] PCP - General Internal Medicine 12/23/22 Discharging Machine Operator Relationship Specialty Start Date End Date Phillip Bernal MD Office Address Unavailable as of 02/01/2023 PCP - [facility] PCP 02/17/21 [place] [address] [place] [address] PCP - General Internal Medicine 12/23/22 Discharging Machine Operator Relationship Specialty Start Date End Date Phillip Bernal MD Office Address Unavailable as of 02/01/2023 PCP - [facility] PCP 02/17/21 [place] [address] [place] [address] PCP - General Internal Medicine 12/23/22 Discharging Machine Operator Relationship Specialty Start Date End Date Phillip Bernal MD Office Address Unavailable as of 02/01/2023 PCP - [facility] PCP 02/17/21 [place] [address] [place] [address] PCP - General Internal Medicine 12/23/22 Discharging Machine Operator Relationship Specialty Start [place] [address] [place] [address] PCP - General Internal Medicine 12/23/22 [place] [address] [place] [address] PCP - [facility] PCP 08/18/23 Giovanna Cook MD [address] [place] [address] [address] [place] [address] Consulting Physician Hematology and Oncology 09/22/23 Discharging Machine Operator Relationship Specialty Start [place] [address] [place] [address] PCP - General Internal Medicine 12/23/22 [place] [address] [place] [address] PCP - [facility] PCP 08/18/23 Giovanna Cook MD [address] [place] [address] [address] [place] [address] Consulting Physician Hematology and Oncology 09/22/23 Discharging Machine Operator Relationship Specialty Start Date End Date Phillip Bernal MD Office Address Unavailable as of 02/01/2023 PCP - [facility] PCP 02/17/21 [place] [address] [place] [address] PCP - General Internal Medicine 12/23/22 Discharging Machine Operator Relationship Specialty Start Date End Date Phillip Bernal MD Office Address Unavailable as of 02/01/2023 PCP - [facility] PCP 02/17/21 [place] [address] [place] [address] PCP - General Internal Medicine 12/23/22 Giovanna Cook MD [address] [place] [address] [address] [place] [address] Consulting Physician Hematology and Oncology 09/22/23 Discharging Machine Operator Relationship Specialty Start Date End Date Phillip Bernal MD Office Address Unavailable as of 02/01/2023 PCP - [facility] PCP 02/17/21 [place] [address] [place] [address] PCP - General Internal Medicine 12/23/22 Giovanna Cook MD [address] [place] [address] [address] [place] [address] Consulting Physician Hematology and Oncology 09/22/23 Discharging Machine Operator Relationship Specialty Start Date End Date Phillip Bernal MD Office Address Unavailable as of 02/01/2023 PCP - [facility] PCP 02/17/21 [place] [address] [place] [address] PCP - General Internal Medicine 12/23/22 Giovanna Cook MD [address] [place] [address] [address] [place] [address] Consulting Physician Hematology and Oncology 09/22/23 Discharging Machine Operator Relationship Specialty Start Date End Date Phillip Bernal MD Office Address Unavailable as of 02/01/2023 PCP - [facility] PCP 02/17/21 [place] [address] [place] [address] PCP - General Internal Medicine 12/23/22 Giovanna Cook MD [address] [place] [address] Dr [address] [place] [address] Consulting Physician Hematology and Oncology 09/22/23 Discharging Machine Operator Relationship Specialty Start Date End Date Phillip Bernal MD Office Address Unavailable as of 02/01/2023 PCP - [facility] PCP 02/17/21 [place] [address] [place] [address] PCP - General Internal Medicine 12/23/22 Giovanna Cook MD [address] [place] [address] [address] [place] [address] Consulting Physician Hematology and Oncology 09/22/23 Discharging Machine Operator Relationship Specialty Start [place] [address] [place] [address] PCP - General Internal Medicine 12/23/22 [place] [address] [place] [address] PCP - [facility] PCP 08/18/23 Giovanna Cook MD [address] [place] [address] [address] [place] [address] Consulting Physician Hematology and Oncology 09/22/23 Discharging Machine Operator Relationship Specialty Start [place] [address] [place] [address] PCP - General Internal Medicine 12/23/22 [place] [address] [place] [address] PCP - [facility] PCP 08/18/23 Giovanna Cook MD [address] [place] [address] [address] [place] [address] Consulting Physician Hematology and Oncology 09/22/23 Discharging Machine Operator Relationship Specialty Start [place] [address] [place] [address] PCP - General Internal Medicine 12/23/22 [place] [address] [place] [address] PCP - [facility] PCP 08/18/23 Giovanna Cook MD [address] [place] [address] [address] [place] [address] Consulting Physician Hematology and Oncology 09/22/23 Discharging Machine Operator Relationship Specialty Start [place] [address] [place] [address] PCP - General Internal Medicine 12/23/22 [place] [address] [place] [address] PCP - [facility] PCP 08/18/23 Giovanna Cook MD [address] [place] [address] [address] [place] [address] Consulting Physician Hematology and Oncology 09/22/23 Discharging Machine Operator Relationship Specialty Start [place] [address] [place] [address] PCP - General Internal Medicine 12/23/22 [place] [address] [place] [address] PCP - [facility] PCP 08/18/23 Giovanna Cook MD [address] [place] [address] [address] [place] [address] Consulting Physician Hematology and Oncology 09/22/23 Team [...] September 22, 2024 End: September 22, 2024 Discharging Machine Operator Relationship Specialty Start [place] [address] [place] [address] PCP - General Internal Medicine 12/23/22 [place] [address] [place] [address] PCP - [facility] PCP 08/18/23 [place] [address] [facility] [place] [address] Consulting Physician Hematology and Oncology 09/22/23 Team [...] Active Start: October 29, 2024 Dr. Ruslan de Andrew , DO Attending Provider Active Start: October 29, 2024 Team Status: Active Member Role/Relationship Status Dates Dr. Mayco Fenton MD Primary care physician Active Team Status: Inactive Member Role/Relationship Status Dates Dr. Mayco Fenton MD Primary care physician Active Start: September 09, 2024 End: September 09, 2024 Dr. Mayco Fenton MD Attending physician Active Start: September 09, 2024 End: September 09, 2024 Dr. Mayco Fenton MD Referring Provider Active Start: September 09, 2024 End: September 09, 2024 Team Status: Inactive Member Role/Relationship Status Dates Dr. Mayco Fenton MD Primary care physician Active Start: September 22, 2024 End: September 22, 2024 Dr. Javy Lynch DPM Attending physician Active Start: September 22, 2024 End: September 22, 2024 Dr. Javy Lynch DPM Referring Provider Active Start: September 22, 2024 End: September 22, 2024 Team Status: Inactive Member Role/Relationship Status Dates Dr. Mayco Fenton MD Primary care physician Active Start: October 29, 2024 End: November 04, 2024 Dr. Sriram Nunez MD Emergency Department Physician Active Start: October 29, 2024 End: November 04, 2024 Dr. Ruslan Adams DO Admitting physician Active Start: October 29, 2024 End: November 04, 2024 Dr. Ruslan Adams DO Nurse Practitioner Active Start: October 29, 2024 End: November 04, 2024 Dr. Javy Lynch DPM Nurse Practitioner Active Start: October 29, 2024 End: November 04, 2024 Dr. Wes Arellano MD Attending physician Active Start: October 29, 2024 End: November 04, 2024 Dr. Delbert Mak MD Nurse Practitioner Active Start: October End: November 04, 2024 Dr. Marco De La Cruz MD Nurse Practitioner Active Start: October 29, 2024 End: November 04, 2024 Dr. Steve Amos MD Nurse Practitioner Active Start: October End: November 04, 2024 JANAY Torres Nurse Practitioner Active Star t: October 29, 2024 End: November 04, 2024 Team Status: Active Member Role/Relationship Status Dates Dr. Mayco Fenton MD Primary care physician Active Start: October 30, 2024 Dr. Sriram Nunez MD Emergency Department Physician Active Start: October 30, 2024 Dr. Ruslan Adams DO Admitting physician Active Start: October 30, 2024 Dr. Ruslan Adams DO Nurse Practitioner Active Start: October 30, 2024 Dr. Delbert Mak MD Attending physician Active Start: October Dr. Delbert Mak MD Nurse Practitioner Active Start: October Team Status: Active Member Role/Relationship Status Dates Dr. Mayco Fenton MD Primary care physician Active Start: October 31, 2024 Dr. Sriram Nnuez MD Emergency Department Physician Active Start: October 31, 2024 Dr. Ruslan Adams DO Admitting physician Active Start: October 31, 2024 Dr. Ruslan Adams DO Nurse Practitioner Active Start: October 31, 2024 Dr. Javy Lynch DPM Nurse Practitioner Active Start: October 31, 2024 Dr. Wes Arellano MD Attending physician Active Start: October 31, 2024 Dr. Wes Arellano MD Nurse Practitioner Active Start: October 31, 2024 Dr. Delbert Mak MD Nurse Practitioner Active Start: October Dr. Marco De La Cruz MD Nurse Practitioner Active Start: October 31, 2024 Team Status: Active Member Role/Relationship Status Dates Dr. Mayco Fenton MD Primary care physician Active Start: November 01, 2024 Dr. Sriram Nunez MD Emergency Department Physician Active Start: November 01, 2024 Dr. Ruslan Adams DO Admitting physician Active Start: November 01, 2024 Dr. Ruslan Adams DO Nurse Practitioner Active Start: November 01, 2024 Dr. Javy Lynch DPM Nurse Practitioner Active Start: November 01, 2024 Dr. Wes Arellano MD Attending physician Active Start: November 01, 2024 Dr. Wes Arellano MD Nurse Practitioner Active Start: November 01, 2024 Dr. Delbert Mak MD Nurse Practitioner Active Start: October Dr. Marco De La Cruz MD Nurse Practitioner Active Start: November 01, 2024 Team Status: Active Member Role/Relationship Status Dates Dr. Mayco Fenton MD Primary care physician Active Start: November 02, 2024 Dr. Sriram Nunez MD Emergency Department Physician Active Start: November 02, 2024 Dr. Ruslan Adams DO Admitting physician Active Start: November 02, 2024 Dr. Ruslan Adams DO Nurse Practitioner Active Start: November 02, 2024 Dr. Javy Lynch DPM Nurse Practitioner Active Start: November 02, 2024 Dr. Wes Arellano MD Attending physician Active Start: November 02, 2024 Dr. Wes Arellano MD Nurse Practitioner Active Start: November 02, 2024 Dr. Delbert Mak MD Nurse Practitioner Active Start: October Dr. Marco De La Cruz MD Nurse Practitioner Active Start: November 02, 2024 Dr. Steve Amos MD Nurse Practitioner Active Start: October Team Status: Active Member Role/Relationship Status Dates Dr. Mayco Fenton MD Primary care physician Active Start: November 03, 2024 Dr. Sriram Nunez MD Emergency Department Physician Active Start: November 03, 2024 Dr. Ruslan Adams DO Admitting physician Active Start: November 03, 2024 Dr. Ruslan Adams DO Nurse Practitioner Active Start: November 03, 2024 Dr. Javy Lynch DPM Nurse Practitioner Active Start: November 03, 2024 Dr. Wes Arellano MD Nurse Practitioner Active Start: November 03, 2024 Dr. Delbert Mak MD Nurse Practitioner Active Start: October Dr. Marco De La Cruz MD Nurse Practitioner Active Start: November 03, 2024 Dr. Steve Amos MD Nurse Practitioner Active Start: October JANAY Torres Attending physician Active Sta rt: November 03, 2024 JANAY Torres Nurse Practitioner Active Star t: November 03, 2024 Team Status: Active Member Role/Relationship Status Dates Dr. Mayco Fenton MD Primary care physician Active Start: November 03, 2024 Dr. Sriram Nunez MD Emergency Department Physician Active Start: November 03, 2024 Dr. Ruslan Adams DO Admitting physician Active Start: November 03, 2024 Dr. Ruslan Adams DO Nurse Practitioner Active Start: November 03, 2024 Dr. Javy Lynch DPM Nurse Practitioner Active Start: November 03, 2024 Dr. Wes Arellano MD Attending physician Active Start: November 03, 2024 Dr. Wes Arellano MD Nurse Practitioner Active Start: November 03, 2024 Dr. Delbert Mak MD Nurse Practitioner Active Start: October Dr. Marco De La Cruz MD Nurse Practitioner Active Start: November 03, 2024 Dr. Steve Amos MD Nurse Practitioner Active Start: October JANAY Torres Nurse Practitioner Active Star t: November 03, 2024 Team Status: Active Member Role/Relationship Status Dates Dr. Mayco Fenton MD Primary care physician Active Start: November 04, 2024 Dr. Sriram Nunez MD Emergency Department Physician Active Start: November 04, 2024 Dr. Ruslan Adams DO Admitting physician Active Start: November 04, 2024 Dr. Ruslan Adams DO Nurse Practitioner Active Start: November 04, 2024 Dr. Javy Lynch DPM Nurse Practitioner Active Start: November 04, 2024 Dr. Wes Arellano MD Attending physician Active Start: November 04, 2024 Dr. Wes Arellano MD Nurse Practitioner Active Start: November 04, 2024 Dr. Delbert Mak MD Nurse Practitioner Active Start: October Dr. Marco De La Cruz MD Nurse Practitioner Active Start: November 04, 2024 Dr. Steve Amos MD Nurse Practitioner Active Start: October JANAY Torres Nurse Practitioner Active Star t: November 04, 2024 Team Status: Active Member Role/Relationship Status Dates Dr. Mayco Fenton MD Primary care physician Active Start: November 08, 2024 Jun SCHERER MD Attending physician Active Start: November 08, 2024 Team Status: Active Member Role/Relationship Status Dates Dr. Mayco Fenton MD Primary care physician Active Start: November 15, 2024 Jun SCHERER MD Attending physician Active Start: November 15, 2024 Scheduled Active and Recently Administ ered [...] BE BASED ON THE PRIMARY CLINICAL RECORDS. [employer] provides no warranty or guarantee of the accuracy or completeness of information in this document.
[2024-12-07 21:35] LABS: Hematocrit 41.8 % (40-54); Hemoglobin 13.6 g/dL (13.0-16.5); Immature Granulocytes Count 0.040 X10^3/uL (0.0-0.0); Mean Corp Hgb Conc 32.5 g/dL (32-36); Mean Corpuscular Volume 90.5 fL (80-94); Mean Platelet Vol. 10.7 fl (6.2-12.0); NRBC Flagged by Analyzer 0 % (0-5); Platelet Count 345 K/mm3 (150-450); RBC Distribution Width CV 13.3 % (11.6-14.6); RBC Distribution Width SD 43.4 fl (35.1-43.9); Red Blood Count 4.62 M/mm3 (4.6-6.2); White Blood Count 12.9 K/mm3 (4.4-11.0)
[2024-12-07 21:47] LABS: AST(SGOT) 23 U/L (<=37); Alanine Aminotransfer ALT/SGPT 19 U/L (<=46); Albumin, Serum 3.7 g/dL (3.4-4.8); Alkaline Phosphatase 101 U/L (40-129); Anion Gap 11 (5-15); BUN 25 mg/dL (4-19); BUN/Creat Ratio 26.1 RATIO (10-20); Calcium,Total 9.9 mg/dL (7.6-11.0); Carbon Dioxide 26.2 mmol/L (21.0-32.0); Chloride 100 mmol/L (98-108); Globulin 3.6 g/dL (2.2-4.2); Glucose 69 mg/dL (70-99); Potassium 4.3 mmol/L (3.3-5.1)
== END | disposition home or self-care (01) ==
PROVIDERS: PCP Family Medicine; Referring Provider Podiatrist; Visit Provider Podiatrist
DX: M86.172 Other acute osteomyelitis, left ankle and foot (principal)
CPT/HCPCS: 36415; 80053; 85025

== ENCOUNTER 2025-01-26 10:47 | Outpatient (RCR) | payer BC, SELFPAY | END 2025-02-16 23:59 | LOC: NS 10:47 | PROVIDERS: PCP Family Medicine; Referring Provider Family Medicine; Visit Provider Family Medicine | DX: Z71.3 Dietary counseling and surveillance (principal); L97.509 Non-pressure chronic ulcer of other part of unspecified foot with unspecified severity; E11.621 Type 2 diabetes mellitus with foot ulcer | CPT/HCPCS: 97802 ==

== ENCOUNTER 2025-01-27 10:10 | Emergency (ER) | payer BC, SELFPAY ==
[2025-01-27 10:11] VITALS: BP 141/77; PULSE 92; RESP 18; TEMP 36.8; O2SAT 98; BMI 30.1
[2025-01-27 13:04] VITALS: BP 110/77; PULSE 85; RESP 18; TEMP 36.7; O2SAT 100
--- NOTE | 2025-01-27 14:18 | ED.VIS.LOWEX ---
HPI History of Present Illness Chief Complaint: Lower Extremity Injury Informant: patient and spouse/S.O. Narrative Narrative: 64-year-old male presenting to the emergency room with a chief complaint of DVT in the leg. Patient states that he has had prior DVTs in the right leg. He notes that he is on Xarelto but is unsure if it is the 20 mg dose or a 10 mg dose. He went to see podiatry who he has been seeing for a left foot infection. He states he has been nonambulatory on the right leg for several months until recently when he started using it again. He notes the leg is more swollen than normal. Consequently he was sent to the hospital where an outpatient duplex ultrasound reveals an acute DVT in the popliteal vein as well as in the T/P trunk. 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 He denies any chest pain or shortness of breath. He states that he has not missed any doses of his Xarelto. [facility] Medical History PAD (peripheral artery disease) History of venous thromboembolism Physical exam, pre-employment Home Medications ?Medication ?Instructions ?Recorded ?Last Taken ?Type allopurinol 200 mg tablet 300 mg PO QDAY 06/22/24 10/29/24 History atorvastatin 40 mg tablet 10 mg PO QDAY 06/22/24 10/28/24 History glimepiride 2 mg tablet 6 mg PO QAM 06/22/24 10/29/24 History lisinopril 10 mg tablet 5 mg PO QDAY 06/22/24 10/29/24 History metformin 500 mg tablet 500 mg PO QDAY 06/22/24 10/29/24 History metoprolol tartrate 50 mg tablet 25 mg PO QDAY 06/22/24 10/29/24 History amoxicillin 875 mg-potassium 1 tab PO BID #72 tabs 11/03/24 Unknown Rx clavulanate 125 mg tablet ciprofloxacin HCl 500 mg tablet 500 mg PO BID #70 tabs 11/03/24 Unknown Rx (Cipro) L.acidophil,salivari-Bifido 1 cap PO 2XD #0 caps 11/04/24 Unknown Rx bifidum-Strep thermoph 175 mg capsule insulin lispro 100 unit/mL See Protocol subcut ACHS #0 mL 11/04/24 Unknown Rx subcutaneous pen (Humalog KwikPen (U-100) Insulin) sennosides 8.6 mg-docusate sodium 2 tab PO BID #0 tabs 11/04/24 Unknown Rx 50 mg tablet (Stimulant Laxative Plus) enoxaparin 100 mg/mL subcutaneous 95 mg (0.95 mL) subcut Q12H 6 01/27/25 Unknown Rx syringe (Lovenox) weeks #79.8 mL Allergy/AdvReac Type Severity Reaction Status Date / Time No Known Allergies Allergy Verified 01/27/25 10:12 Family History Mother Lung cancer Father Lung cancer Surgical History History of hip replacement, total Social History household members: spouse Smoking Status: Never smoker ROS ROS ED Constitutional Constitutional ED: Denies chills or weight loss Eyes Eyes: Denies change in vision or diplopia ENT ENT ED: Denies ear pain, rhinorrhea or sore throat Cardiovascular Cardiovascular: Denies chest pain, orthopnea, palpitations or racing heartbeat Respiratory/Chest Respiratory/Chest: Denies cough, dyspnea, dyspnea on exertion or orthopnea Gastrointestinal Gastrointestinal: Denies abdominal pain, diarrhea, nausea or vomiting Genitourinary Genitourinary ED: Denies dysuria, hematuria or urinary frequency Musculoskeletal Musculoskeletal: Denies arthralgias or myalgias Integumentary Reports other Details: Right foot diabetic infection right leg swelling ; Denies abscess or rash Neurologic Neurologic: Denies headache(s) or weakness Psychiatric Psychiatric: Denies anxiety, depression, suicidal ideation or suicidal thoughts Endocrine Endocrinology: Denies polydipsia, polyphagia or polyuria Allergic/Immunologic Allergic/Immunologic ED: Denies mouth swelling, tongue swelling or urticaria EXAM Physical Exam Const Vital Signs: 01/27/25 10:11 01/27/25 13:04 Temperature 98.3 F 98.1 F Temperature Source Oral Pulse Rate 92 85 Respiratory Rate 18 18 Blood Pressure 141/77 H 110/77 Blood Pressure Mean 98 88 Pulse Ox 98 100 Oxygen Delivery Method Room Air Positive well nourished and well developed General Appearance ED: well developed and NAD HEENT Reports normocephalic, head/scalp atraumatic and moist mucous membranes Eyes PERRL and EOMs intact bilaterally Neck no lymphadenopathy, supple and no JVD Resp normal respiratory effort and clear to auscultation bilaterally Cardio regular rate, regular rhythm and no murmurs GI normal to inspection, nondistended, normoactive bowel sounds and non-tender Palpation: soft Back/Spine no CVA tenderness and normal ROM Extremity Extremity Narrative: There is edema of the left leg compared to the right. Do not appreciate calf tenderness or tenderness in the popliteal fossa. Neuro oriented x3 and CN's II-XII intact bilaterally Sensorium / Orientation: alert Motor Exam: strength 5/5 throughout Psych mental status grossly normal Mood & Affect: Negative for depressed or tearful Skin no rashes or lesions noted and no wounds MDM MDM MDM Narrative Medical decision making narrative: I reviewed the patient's outpatient duplex ultrasound. went home and confirmed his Xarelto dosing which is 20 mg a day which she takes at night. I spoke with vascular surgery (Teressa) who recommends the patient discontinue the Xarelto and begin twice daily dosing 1 mg/kg of Lovenox. They will follow-up with him to discuss further management. History & Record Review Discussion w/independent historian: Patient and Significant other Additional record(s) reviewed:: Prior outpatient record Discharge Plan Triage Chief Complaint: Lower Extremity Injury ED Provider: Brandan Champion Dx/Rx/DC Orders Clinical Impression: Acute deep vein thrombosis (DVT) of left lower extremity Instructions: DVT Dc Prescriptions: New enoxaparin [Lovenox] 100 mg/mL syringe 95 mg subcut Q12H 42 Days Qty: 79.8 0RF Discontinued Xarelto 10 mg tablet 10 mg PO QDAY Rx Instructions: for 35 days No Action metformin 500 mg tablet 500 mg PO QDAY glimepiride 2 mg tablet 6 mg PO QAM Rx Instructions: administer with breakfast allopurinol 200 mg tablet 300 mg PO QDAY metoprolol tartrate 50 mg tablet 25 mg PO QDAY atorvastatin 40 mg tablet 10 mg PO QDAY lisinopril 10 mg tablet 5 mg PO QDAY ciprofloxacin HCl [Cipro] 500 mg tablet 500 mg PO BID Qty: 70 0RF amoxicillin-pot clavulanate 875-125 mg tablet 1 tab PO BID Qty: 72 0RF sennosides-docusate sodium [Stimulant Laxative Plus] 8.6-50 mg Tablet 2 tab PO BID Qty: 0 0RF insulin lispro [Humalog KwikPen Insulin] 100 unit/mL Insulin Pen See Protocol subcut ACHS Qty: 0 0RF Protocol: 1. Sliding Scale Insulin Low Dosing Condition: 150-224 mg/dl = 1 unit Condition: 225-299 mg/dl = 2 units Condition: 300-374 mg/dl = 3 units Condition: 375-449 mg/dl = 4 units Condition: Greater than 449 call physician Protocol Text: Suggested for: - Patients on Total Daily Insulin Dose of 15-27 units - Thin, elderly, renal patients LOW DOSING ALGORITHM L.acidoph,saliva-B.bif-S.therm 175 mg Capsule 1 cap PO 2XD Qty: 0 0RF Rx Instructions: While patient is taking antibiotic Primary Care Provider: Mayco Fenton Referrals: Reynaldo Gan MD [Med Staff - Active Staff, Vascular Surgery] - As soon as possible Mayco Fenton MD [Primary Care Provider, [facility]] Activity Restrictions/Additional Instructions: We are referring you to Dr. Reynaldo Gan who is a vascular surgeon. Based on their recommendations we are having you discontinue the Xarelto and begin Lovenox injections twice a day. They will see you in the office next week. Most likely you will be on this medication for about 6 weeks. Print Language: Armenian Disposition Disposition: Home, Self Care Discharge Date/Time: 01/27/25 13:15
== END 2025-01-27 13:15 | disposition home or self-care (01) ==
PROVIDERS: Emergency Provider Emergency Medicine; PCP Family Medicine; Visit Provider Emergency Medicine
DX: I82.432 Acute embolism and thrombosis of left popliteal vein (principal); I82.442 Acute embolism and thrombosis of left tibial vein; I82.452 Acute embolism and thrombosis of left peroneal vein; Z79.01 Long term (current) use of anticoagulants; Z86.718 Personal history of other venous thrombosis and embolism
CPT/HCPCS: 96372; 99282

== ENCOUNTER → 2025-01-27 | Outpatient (CLI) | payer BC, SELFPAY ==
--- NOTE | 2025-01-27 08:31 | VDLE_ITS ---
Reason For Study Reason For Study: LLE Swelling RIGHT LEFT CFV is compressible, spontaneous, phasic, competent GSV is normal. and demonstrates normal augmentation. CFV is compressible, spontaneous, phasic, competent, Procedure and demonstrates normal augmentation. This is a venous duplex using B-mode, color flow and FV is compressible, spontaneous, phasic, competent and spectral Doppler. demonstrates normal augmentation. Exam performed in department. Acute deep vein thrombosis is noted in the POP V. It The exam was diagnostic. is dilated and NONCOMPRESSIBLE. A preliminary report was called and/or faxed to . Acute deep vein thrombosis is noted in the T/P Trunk. Syed's office. I was instructued to defer It is dilated and NONCOMPRESSIBLE. treatment to PCP or ED by Dr Lynch's RN. I PTV is compressible. delivered results to Dr. Fenton and they declined LT PerV is compressible. treatment. I escorted PT to [facility] ED with preliminary report for treatment. VL/Venous Duplex US, Unilateral Interpretation Summary Acute deep vein thrombosis noted in the left popliteal vein, tibioperoneal trun k vein. Ordering Physician: Javy Lynch Referring Physician: Mayco Fenton Performed By: Ang Connor RVT and Student
== END | disposition home or self-care (01) ==
PROVIDERS: PCP Family Medicine; Referring Provider Podiatrist; Visit Provider Podiatrist
DX: R22.42 Localized swelling, mass and lump, left lower limb (principal)
CPT/HCPCS: 93971

== ENCOUNTER → 2025-01-31 | Outpatient (CLI) | payer BC, SELFPAY ==
[2025-01-31 18:43] LABS: PSA,Total- Diagnostic 3.87 ng/mL (0.00-4.00)
[2025-02-02 13:08] LABS: PSA, Free 1.08 ng/mL; PSA, Free % 28.6 % (.); PSA, Total Ultrasensitive 3.770 ng/mL (0.000-4.000)
== END | disposition home or self-care (01) ==
LOC: LAB 16:03
PROVIDERS: PCP Family Medicine; Referring Provider Urology; Visit Provider Urology
DX: N40.1 Benign prostatic hyperplasia with lower urinary tract symptoms (principal)
CPT/HCPCS: 36415; 84153; 84154

== ENCOUNTER → 2025-02-04 | Outpatient (CLI) | payer BC, SELFPAY ==
--- NOTE | 2025-02-04 08:00 | VDLE_ITS ---
Reason For Study Reason For Study: LLE DVT / Swelling RIGHT LEFT CFV is compressible, spontaneous, phasic, competent GSV is normal. and demonstrates normal augmentation. CFV is compressible, spontaneous, phasic, competent, Procedure and demonstrates normal augmentation. This is a venous duplex using B-mode, color flow and FV is compressible, spontaneous, phasic, competent and spectral Doppler. demonstrates normal augmentation. Exam performed in department. Acute deep vein thrombosis is noted in the POP V. It The exam was diagnostic. is dilated and NONCOMPRESSIBLE. Acute deep vein thrombosis is noted in the T/P Trunk. It is dilated and NONCOMPRESSIBLE. PTV is compressible. LT PerV is compressible. VL/Venous Duplex US, Unilateral Interpretation Summary Acute deep vein thrombosis noted in the left popliteal vein, tibioperoneal trun k vein. Ordering Physician: Reynaldo Gan Referring Physician: Mayco Fenton Performed By: Ang Connor RVT
== END | disposition home or self-care (01) ==
PROVIDERS: PCP Family Medicine; Referring Provider Surgery Trauma Surgery; Visit Provider Surgery Trauma Surgery
DX: I82.432 Acute embolism and thrombosis of left popliteal vein (principal); I82.442 Acute embolism and thrombosis of left tibial vein; I82.452 Acute embolism and thrombosis of left peroneal vein
CPT/HCPCS: 93971